=== PATIENT | female | born 1980 | race Caucasian/White ===

== ENCOUNTER → 2016-11-16 | Outpatient (CLI) | payer OTHER ==
[~2016-11-16] MED LIST: ANT25 PO; CHLO25CA10 PO; ONDA4TAB10 SL; OXYC5TAB PO; TRAZ50TA35 PO; ZLF50 PO
== END | disposition home or self-care (01) ==
LOC: C.LAB 16:20
DX: Z02.83 Encounter for blood-alcohol and blood-drug test (principal)

== ENCOUNTER 2017-03-20 22:10 | Emergency (ER) | payer OTHER ==
[~2017-03-20] VITALS: Ht 162.6 cm; Wt 55.9 kg
[~2017-03-20 22:10] MED LIST changes: -ANT25 PO; -CHLO25CA10 PO; -ONDA4TAB10 SL; -TRAZ50TA35 PO; -ZLF50 PO
[2017-03-20 22:21] VITALS: TEMP 36.6; O2SAT 97; Ht 162.6 cm; Wt 55.9 kg
[2017-03-20 23:26] LABS: BUN/CREATININE RATIO 6.7 (10-20); CALCIUM 9.7 mg/dl (8.5-10.1); CREATININE 0.51 mg/dl (0.60-1.20); POTASSIUM 3.2 mmol/L (3.5-5.1)
[2017-03-21 04:00] VITALS: BP 117/69; PULSE 116; O2SAT 93
[2017-03-21] MEDS ORDERED: POTASSIUM CHLORIDE 10 MEQ TABCR PO STA (04:03)
--- NOTE | 2017-03-21 04:04 | EMERGENCY ROOM VISIT NOTE ---
History First contact with patient: 22:11 Chief Complaint: ALCOHOL OVERDOSE Stated Complaint: ALCOHOL OVERDOSE Nursing Triage Summary: Brougth in via BLS for apparent alcohol overdose. Patient was brought in from [facility]. EMS states patient was lying on the ground. History of Present Illness The patient is a 36 year old female who presents to the Emergency Room with complaints of alcohol intoxication. Patient was extremely drunk at [facility] and was brought in. Patient is a known alcoholic. Patient is passed out and unable to obtain history. She's been to this ER several times for alcohol intoxication. Review of Systems Unable to obtain secondary to altered mental status from alcohol intoxication Past Medical/Surgical History Medical Problems: (1) Alcohol abuse (2) Anxiety and depression (3) Fatty liver Surgical Problems: (1) History of dental surgery Family History Cancer Diabetes mellitus Lung disease Social History Smoking Status: Current Some Day Smoker Alcohol Use: heavy Marital Status: single Housing Status: lives with family Occupation Status: unemployed Current/Historical Medications Unable to Obtain Active Prescriptions or Reported Meds Allergies Coded Allergies: No Known Allergies (Unverified , 11/14/15) Physical Exam Vital Signs Date Time Temp Pulse Resp B/P (MAP) Pulse Ox O2 Delivery O2 Flow Rate FiO2 03/21/17 04:00 116 18 117/69 93 Room Air 03/21/17 02:07 97 03/21/17 02:00 90 14 92/64 93 Room Air 03/21/17 01:13 80 18 78/51 94 Room Air 03/20/17 23:57 94 18 96/58 96 Room Air 03/20/17 22:25 97 03/20/17 22:21 97 Room Air 03/20/17 22:21 36.6 119 30 112/79 97 Room Air 03/20/17 22:21 97 Room Air Physical Exam PHYSICAL EXAM: VITALS: Vitals are noted on the nurse's note and reviewed by myself. Vital signs stable. GENERAL: White female passed out with EtOH odor, in no acute distress, nondiaphoretic, well-developed well-nourished. The patient is visibly intoxicated. SKIN: The skin was without obvious lacerations, abrasions, or rashes. There is no tenting of the skin. Capillary reflex less than 2 seconds. HEENT: Normocephalic, atraumatic. PERRLA. EOMI. Conjunctiva with mild injection without icterus. Tympanic membranes without erythema or effusion bilaterally no hemotympanum. External auditory canals are clear. Nares patent bilaterally. No epistaxis. Oropharynx without erythema or exudate. Uvula midline. Oral mucosal moist. No lymphadenopathy. Neck is supple without cervical spine tenderness. HEART: Regular rate and rhythm without murmurs gallops or rubs. Peripheral pulses 2+. LUNGS: Clear to auscultation bilaterally without wheezes, rales or rhonchi. ABDOMEN: Positive bowel sounds x 4. Normal tympanic percussion. Soft, nontender, without masses or organomegaly. MUSCULOSKELETAL: Gross motor function of the upper and lower extremities intact. The patient has a staggering gait. NEUROLOGIC: The patient is visibly intoxicated. Gag reflex intact, Once they were more sober they were alert and oriented to person place and time. Medical Decision & Procedures Laboratory Results 03/20/17 22:52 Test 03/20/17 22:52 Anion Gap 12.0 mmol/L (3-11) Est Creatinine Clear Calc Drug Dose 134.3 ml/min Estimated GFR () 145.4 Estimated GFR (Non- 125.5 BUN/Creatinine Ratio 6.7 (10-20) Calcium Level 9.7 mg/dl (8.5-10.1) Ethyl Alcohol mg/dL 452.0 mg/dl (0-3) ED Course Prior records/ancillary studies reviewed. Triage Nursing notes reviewed. Additional history obtained from EMS. The patient's history was concerning for altered mental status and a possible alcohol overdose. Differential diagnosis: Etiologies such as alcohol intoxication, toxicologic, infection, hypoglycemia, electrolyte abnormalities, cardiac sources, intracerebral event, neurologic, as well as others were entertained. Physical examination: As above. The patient is clinically intoxicated. no trauma noted. ER treatment provided: Monitoring Aspiration precautions The patient was frequently reassessed. Diagnostic interpretation by me: Cardiac monitoring did not reveal any evidence of dysrhythmia. The labs revealed hypokalemia. The patient's blood alcohol level was 452 mg/dL. This appears to be consistent with an isolated overdose of alcohol. Patient is a known alcoholic. She does not want detox. She is discharged home with her family. By the evaluation outlined above emergent etiologies such as trauma, infection, hypoglycemia, electrolyte abnormalities, cardiac sources, intracerebral event, neurologic,as well as others were deemed relatively unlikely. The patient was informed about the findings as listed above. The patient was counseled on the dangers of excessive alcohol use. I gave my usual and customary discussion regarding this issue. All questions were answered and the patient was pleased with the treatment. Return instructions were outlined and the patient was discharged in stable condition once their mental status improved and a safe destination was confirmed. Outpatient prescription management: None Referral: The patient was referred back to their primary care physician for follow-up in 2 to 3 days for a recheck of their current condition. Medical Decision As above Impression Primary Impression: Alcohol abuse Additional Impression: Hypokalemia Departure Information Dispostion Home / Self-Care Condition GOOD Prescriptions Unable to Obtain Active Prescriptions or Reported Meds Referrals No Doctor, Assigned (PCP) Forms HOME CARE DOCUMENTATION FORM, IMPORTANT VISIT INFORMATION Patient Instructions My [facility] Additional Instructions Keep well-hydrated. Tylenol every 6 hours as needed for pain (Maximum 3000 mg Tylenol in 24 hr period). Follow up with family doctor and/or health services as needed. No driving for the next 24 hours. Recommend no alcohol for the next 48 hours and avoid binge drinking in the future. Return to ER sooner for chest pain, abdominal pain, worsening signs or symptoms or as needed. Problem Qualifiers
[2017-04-01] MEDS ORDERED: ZLF50 PO (16:59)
[2017-04-01] MEDS ORDERED: ONDA4TAB10 SL (16:59)
[2017-04-01] MEDS ORDERED: ANT25 PO (16:59)
== END 2017-03-21 04:15 | disposition home or self-care (01) ==
LOC: EDBD 22:10 → C.EDB 22:11
DX: F10.129 Alcohol abuse with intoxication, unspecified (principal); Y90.8 Blood alcohol level of 240 mg/100 ml or more; E87.6 Hypokalemia; F41.8 Other specified anxiety disorders; K76.0 Fatty (change of) liver, not elsewhere classified; F17.200 Nicotine dependence, unspecified, uncomplicated; Z80.9 Family history of malignant neoplasm, unspecified; Z83.3 Family history of diabetes mellitus

== ENCOUNTER 2017-03-30 08:16 | Inpatient (IN) | payer OTHER ==
[~2017-03-30] VITALS: Ht 162.6 cm; Wt 56.0 kg
[2017-03-30] MEDS ORDERED: LORAZEPAM 2 MG/ML 1 ML VIAL IV STA (09:00)
[2017-03-30] MEDS ORDERED: MULTI-VITAMIN INFUSION INJ 10 ML, THIAMINE HCL INJ 100 MG, FoLIC ACID INJ 1 MG in SODIU... IV ONE (09:00)
[2017-03-30] MEDS ORDERED: ONDANSETRON INJ 2 MG/ML 2 ML VIAL IV STA (09:00)
[2017-03-30] MEDS ORDERED: SODIUM CHLORIDE 0.9% 1000ML 1,000 ML IV STA ×2 (09:00)
[2017-03-30 09:19] LABS: BASO % 0.1 %; BASO ABS # 0.01 K/uL (0-0.2); COMPLETE YES; HEMATOCRIT 46.5 % (37-47); IG% 0.4 %; LYMPH % 6.2 %; LYMPH ABS # 0.83 K/uL (1.2-3.4); MEAN CELL VOLUME 106.4 fL (80-100); MEAN CORPUSCULAR HEMOGLOBIN 35.2 pg (25-34); MEAN CORPUSCULAR HGB CONC 33.1 g/dl (32-36); MEAN PLATELET VOLUME 10.6 fL (7.4-10.4); MONO % 6.2 %; NEUT % 87.1 %; PLATELET COUNT 115 K/uL (130-400); RED BLOOD COUNT 4.37 M/uL (4.2-5.4); WHITE BLOOD COUNT 13.29 K/uL (4.8-10.8)
[2017-03-30 09:27] LABS: INR 1.1 (0.9-1.1); PROTHROMBIN TIME (PATIENT) 11.3 SECONDS (9.0-12.0)
[2017-03-30 09:36] LABS: BUN/CREATININE RATIO 8.2 (10-20); CALCIUM 9.4 mg/dl (8.5-10.1); CREATININE 1.8 mg/dl (0.60-1.20); MAGNESIUM 1.7 mg/dl (1.8-2.4); POTASSIUM 3.9 mmol/L (3.5-5.1)
[2017-03-30] MEDS ORDERED: MAGNESIUM SULFATE 1GM / D5W 1 GM BAG IV STA (09:48)
[2017-03-30 09:50] LABS: PREG INTERNAL NEGATIVE QC NEG CLEAR BACKGROUND; PREG INTERNAL POSITIVE QC POS CONTROL LINE
--- NOTE | 2017-03-30 10:05 | EMERGENCY ROOM VISIT NOTE ---
ED Visit Note First contact with patient: 08:34 36-year-old female alcoholic with multiple complaints including nausea, jitteriness, carpopedal spasm, insomnia and abdominal pain was fully evaluated by Carin Sarah PA-C. Please see her note. Patient's symptoms seem to be most related to alcohol withdrawal. The patient has not had a seizure.
[2017-03-30] MEDS ORDERED: DiphenhydrAMINE HCL 50 MG/ML VIAL IV STA (10:28)
[2017-03-30 11:11] VITALS: O2SAT 98; Ht 162.6 cm; Wt 56.0 kg
[2017-03-30] MEDS ORDERED: GABAPENTIN 800 MG TAB PO SCH (12:00)
[2017-03-30] MEDS ORDERED: ACETAMINOPHEN 325 MG TAB PO PRN (12:00)
--- NOTE | 2017-03-30 12:36 | History and Physical ---
History & Physical Date & Time of Service: Mar 30, 2017 at 12:11 Chief Complaint: Nausea, Vomiting, No Appetite, Cramping, Tachy Primary Care Physician: No Doctor, Assigned History of Present Illness Source: patient, family Patient is a 36 Yr female with PMH of Alcohol and Tobacco use disorder, anxiety and depression who is currently not on any medications presents with nausea, vomiting, decreased appetite since 2-3 days duration. Patient is currently very drowsy and her mother at bedside are very poor historians. Family reports that she has been in and out of alcohol rehab facilities multiple times and is a very heavy drinker. Her last alcohol drink was 5 days ago. She reports multiple episodes of nausea, vomiting since last 3 days. Also reports very poor appetite and has not slept since last 2 days. Reports jitteriness, RUQ abdominal pain, generalized weakness, dry intermittent cough. Family reports she has a court hearing on April 22 and has been very anxious as a result lately. Denies any history of fever, diarrhea, urinary symptoms. Denies any history of seizures. History not very reliable as patient is drowsy and received Ativan while in ED. Past Medical/Surgical History Medical Problems: (1) Alcohol abuse Status: Chronic (2) Anxiety and depression Status: Chronic (3) Fatty liver Status: Chronic Surgical Problems: (1) History of dental surgery Status: Chronic Family History Cancer Diabetes mellitus Lung disease Maternal Grandfather: Lymphoma Maternal Uncle:Lymphoma Social History Smoking Status: Current Every Day Smoker Alcohol Use: heavy Drug Use: none Marital Status: single Occupational Status: unemployed Immunizations History of Tetanus Vaccine?: Yes Tetanus Immunization Date: Apr 22, 2009 Multi-Drug Resistant Organisms History of MDRO: No Allergies Coded Allergies: No Known Allergies (Unverified , 03/30/17) Home Medications Unable to Obtain Active Prescriptions or Reported Meds Review of Systems Could not obtain complete review of systems as patient a very drowsy Physical Exam Vital Signs Date Time Temp Pulse Resp B/P (MAP) Pulse Ox O2 Delivery O2 Flow Rate FiO2 03/30/17 11:50 88 18 104/81 96 Room Air 03/30/17 11:11 98 Room Air 03/30/17 10:40 89 03/30/17 10:00 90 20 107/76 98 03/30/17 09:33 92 20 115/67 100 03/30/17 08:18 36.8 137 17 111/79 99 Room Air General Appearance: WD/WN, no apparent distress, + pertinent finding (Drowsy) Head: normocephalic, atraumatic Eyes: normal inspection, PERRL ENT: normal ENT inspection, hearing grossly normal Neck: supple, trachea midline Respiratory/Chest: chest non-tender, normal breath sounds, no accessory muscle use, + pertinent finding (Creps at bases) Cardiovascular: regular rate, rhythm, no edema, no murmur Abdomen/GI: normal bowel sounds, soft, + tenderness (RUQ) Back: normal inspection Extremities/Musculoskelatal: normal inspection, no pedal edema 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, no motor/sensory deficits, normal mood/affect, oriented x 3, + pertinent finding (Drowsy) Skin: normal color, warm/dry Diagnostics Laboratory Results Results Past 24 Hours Test 03/30/17 09:02 Range/Units White Blood Count 13.29 4.8-10.8 K/uL Red Blood Count 4.37 4.2-5.4 M/uL Hemoglobin 15.4 12.0-16.0 g/dL Hematocrit 46.5 37-47 % Mean Corpuscular Volume 106.4 80-100 fL Mean Corpuscular Hemoglobin 35.2 25-34 pg Mean Corpuscular Hemoglobin Concent 33.1 32-36 g/dl Platelet Count 115 130-400 K/uL Mean Platelet Volume 10.6 7.4-10.4 fL Neutrophils (%) (Auto) 87.1 % Lymphocytes (%) (Auto) 6.2 % Monocytes (%) (Auto) 6.2 % Eosinophils (%) (Auto) 0.0 % Basophils (%) (Auto) 0.1 % Neutrophils # (Auto) 11.57 1.4-6.5 K/uL Lymphocytes # (Auto) 0.83 1.2-3.4 K/uL Monocytes # (Auto) 0.83 0.11-0.59 K/uL Eosinophils # (Auto) 0.00 0-0.5 K/uL Basophils # (Auto) 0.01 0-0.2 K/uL RDW Standard Deviation 53.5 36.4-46.3 fL RDW Coefficient of Variation 13.8 11.5-14.5 % Immature Granulocyte % (Auto) 0.4 % Immature Granulocyte # (Auto) 0.05 0.00-0.02 K/uL Prothrombin Time 11.3 9.0-12.0 SECONDS Prothromb Time International Ratio 1.1 0.9-1.1 Activated Partial Thromboplast Time 26.9 21.0-31.0 SECONDS Partial Thromboplastin Ratio 1.0 Sodium Level 128 136-145 mmol/L Potassium Level 3.9 3.5-5.1 mmol/L Chloride Level 83 98-107 mmol/L Carbon Dioxide Level 21 21-32 mmol/L Anion Gap 24.0 3-11 mmol/L Blood Urea Nitrogen 15 7-18 mg/dl Creatinine 1.80 0.60-1.20 mg/dl Est Creatinine Clear Calc Drug Dose 35.4 ml/min Estimated GFR () 41.8 Estimated GFR (Non- 36.1 BUN/Creatinine Ratio 8.2 10-20 Random Glucose 106 70-99 mg/dl Calcium Level 9.4 8.5-10.1 mg/dl Magnesium Level 1.7 1.8-2.4 mg/dl Total Bilirubin 2.2 0.2-1 mg/dl Direct Bilirubin 0.6 0-0.2 mg/dl Aspartate Amino Transf (AST/SGOT) 169 15-37 U/L Alanine Aminotransferase (ALT/SGPT) 62 12-78 U/L Alkaline Phosphatase 140 45-117 U/L Total Protein 9.5 6.4-8.2 gm/dl Albumin 4.9 3.4-5.0 gm/dl Amylase Level 124 25-115 U/L Lipase 231 73-393 U/L Human Chorionic Gonadotropin, Qual NEG NEG Ethyl Alcohol mg/dL < 3.0 0-3 mg/dl EKG EKG: NSR Impression Assessment and Plan SIRS Alcohol Withdrawal Presented with Leukocytosis, Tachycardia, Nausea, vomiting, RUQ abdominal pain Admit in Telemetry Start on alcohol withdrawal protocol (Gabapentin, Ativan PRN) IV Fluids, Banana bag Aspiration/Fall/Seizure precautions Check UA, CXR, Abdominal USD Will hold off on starting any antibiotics for now Zofran PRN Helper Maintenance Cleaning to quit drinking ZUHAIR: Likely secondary to dehydration from nausea, vomiting IV Fluids, monitor renal function Avoid nephrotoxic agents Hypomagnesemia/Hyponatremia/Hypochloremia Magnesium replaced Continue IVF Monitor electrolytes Anxiety/Depression: In setting of alcohol abuse Will consult mental health Tobacco use disorder: Nicotine patch 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 Y/N: Yes Risk Level: Low
[2017-03-30] MEDS: ONDANSETRON INJ 2 MG/ML 2 ML VIAL IV PRN ×2 (12:59→20:05)
[2017-03-30 13:15] VITALS: BP 103/73; PULSE 91; TEMP 37.2; O2SAT 98
--- NOTE | 2017-03-30 13:19 | DIAGNOSTIC IMAGING REPORT ---
TWO VIEW CHEST CLINICAL HISTORY: Cough. Nausea and cramping. FINDINGS: PA and lateral chest radiographs are compared to study dated 11/14/2015. The cardiomediastinal silhouette is unremarkable. There is mild nonspecific interstitial thickening. A nipple shadow projects over the right lower lung. No lobar consolidation, pleural effusion, or pneumothorax is seen. Chronic appearing deformity is seen at the right acromioclavicular joint. There is mild S-shaped thoracolumbar scoliosis. IMPRESSION: 1. There is no lobar consolidation or pleural effusion. 2. Mild nonspecific interstitial thickening is identified and may represent a mild infectious/inflammatory pneumonitis. Clinical correlation will be required. 3. Chronic appearing deformity/separation is identified at the right acromioclavicular joint Electronically signed by: Konrad Acosta M.D. 03/30/2017 1:18 PM Dictated Date/Time: 03/30/2017 1:15 PM
[2017-03-30] MEDS: SODIUM CHLORIDE 0.9% 1000ML 1,000 ML IV SCH ×2 (13:28→23:58)
[2017-03-30] MEDS: HEPARIN SOD 5000 UNIT/0.5 ML CARP SQ SCH ×2 (14:00→21:01)
[2017-03-30] MEDS ORDERED: GABAPENTIN 800MG LOADING DOSE PO SCH (14:00)
[2017-03-30] MEDS: MULTI-VITAMIN INFUSION INJ 10 ML, THIAMINE HCL INJ 100 MG, FoLIC ACID INJ 1 MG in SODIU... IV SCH (14:14)
[2017-03-30] MEDS: NICOTINE 21 MG/24 HR TDSY TD SCH (14:15)
[2017-03-30] MEDS ORDERED: COUGH DROP (SUGAR FREE) LOZ 24 LOZ/1 BOX PO PRN (14:30)
[2017-03-30] MEDS ORDERED: NURSING VERBAL MED ORDER ONE (14:30)
[2017-03-30] MEDS ORDERED: FAMOTIDINE IV INJ 20 MG in DEXTROSE 5% 100ML 100 ML IV PRN (14:45)
[2017-03-30 15:20] VITALS: O2SAT 98
[2017-03-30 17:15] LABS: URINE APPEARANCE CLOUDY (CLEAR); URINE COLOR DK YELLOW; URINE EPITHELIAL CELL AUTO >30 /lpf (0-5); URINE NITRITE NEG (NEG); URINE PH 5.5 (4.5-7.5); URINE SPECIFIC GRAVITY 1.024 (1.000-1.030); UROBILINOGEN NEG (NEG)
[2017-03-30 17:30] LABS: MANUAL MICROSCOPIC REQUIRED? NO; REVIEW REQ? YES; URINE BILIRUBIN NEG (NEG)
--- NOTE | 2017-03-30 17:37 | EMERGENCY ROOM VISIT NOTE ---
History First contact with patient: 08:34 Chief Complaint: DEHYDRATION Stated Complaint: NAUSEA & VOMITING Nursing Triage Summary: Vomiting, poor appetite. History of Present Illness Patient is a 36-year-old white female with past medical history significant for alcohol abuse who presents to the emergency department accompanied by her mother and stepfather for evaluation of nausea, vomiting, anorexia and abdominal pain over the last week. Patient was seen here in the emergency department 8 days ago for an acute alcohol overdose. She reports that this was the last time that she consumed any alcohol. Her blood alcohol level was over 450 at that time. She was observed in the emergency Department until clinically sober, then discharged. The patient reports that she noted a poor appetite all week, but does note that this is close to her baseline. Her symptoms became more pronounced about 4 days ago, on Wednesday, when she woke up and felt acutely nauseous, and then had multiple episodes of vomiting. She stated that her abdomen was queasy, and upset, but not significantly painful per se. She did not have any diarrhea. She noted decreased urinary output, and dark urine, but denied any dysuria. She did not have any fevers. She states her symptoms continued through last evening, at which point she did develop some upper abdominal discomfort, and pain across her back along her bra line. She notes a sore throat from all of the vomiting. She also last night began to experience some "tremors" , and cramping in her hands and her feet. She was concerned that she was going to have a seizure, but there was never any overt seizure activity. She has tried sipping on water, but vomits everything up. She denies any hematemesis. She does report contact with a sick ex- boyfriend but this was over a week ago. She denies any recent antibiotics or foreign travel. She does have a history of fatty liver disease and has had elevated LFTs in the past. Her family is concerned that she is suffering from alcohol withdrawal. Review of Systems Review of systems as per HPI. All other systems reviewed were negative. 10 systems reviewed. Past Medical/Surgical History Medical Problems: (1) Alcohol abuse (2) Anxiety and depression (3) Fatty liver (4) Nausea & vomiting Surgical Problems: (1) History of dental surgery Electronic medical records are reviewed and summarized as above/below. See Problem List. Family History Cancer Diabetes mellitus Lung disease Social History Smoking Status: Current Every Day Smoker Alcohol Use: heavy Drug Use: none Marital Status: single Housing Status: lives with family Occupation Status: unemployed Current/Historical Medications Unable to Obtain Active Prescriptions or Reported Meds Allergies Coded Allergies: No Known Allergies (Unverified , 03/30/17) Physical Exam Vital Signs Date Time Temp Pulse Resp B/P (MAP) Pulse Ox O2 Delivery O2 Flow Rate FiO2 03/30/17 11:50 88 18 104/81 96 Room Air 03/30/17 11:11 98 Room Air 03/30/17 10:40 89 03/30/17 10:00 90 20 107/76 98 03/30/17 09:33 92 20 115/67 100 03/30/17 08:18 36.8 137 17 111/79 99 Room Air Pain Rating (0-10): 0 Physical Exam CONSTITUTIONAL: Patient is a thin, ill although nontoxic appearing 36-year-old white female who is awake and alert and in no acute distress. She is noted be tachycardic in triage with a heart rate of 137. Otherwise vital signs are stable. EYES: Pupils equal, round, reactive to light and accommodation. EOMs intact without nystagmus. Sclera are anicteric. ENT: Tympanic membranes intact, with normal landmarks. External canals are clear. Oral and nasopharynx are clear. Mucous membranes are dry, no lesions, tongue and gums appear normal. NECK: Supple without lymphadenopathy. No thyromegaly. No meningeal signs. Full active range of motion without discomfort. CARDIOVASCULAR: Tachycardic rate and rhythm, with normal S1 and S2, no murmur or gallop or rub is heard. No carotid bruits auscultated. No JVD. Peripheral pulses easy to palpable. RESPIRATORY: Breath sounds equal and clear to auscultation without wheezes, rales, or rhonchi heard. Full and equal chest expansion without accessory muscle use or retractions. GI: Bowel sounds are present. Abdomen is soft nondistended, tender to palpation in the epigastric and right upper and right mid abdomen. No organomegaly. No pulsatile masses. No guarding or rebound. MUSCULOSKELETAL: Full range of motion of extremities x 4 with good strength. No cyanosis, edema, joint tenderness or swelling. No deformity. INTEGUMENTARY: No lesions or rash, normal skin turgor. NEUROLOGICAL: Alert, oriented, and cooperative. Cranial nerves, sensation and strength grossly intact. Pupils round, equal, and react to light, EOMs are full. LYMPH: No lymphadenopathy. Medical Decision & Procedures Laboratory Results 03/30/17 09:02 Red Blood Count 4.37, Mean Corpuscular Volume 106.4, Mean Corpuscular Hemoglobin 35.2, Mean Corpuscular Hemoglobin Concent 33.1, Mean Platelet Volume 10.6, Neutrophils (%) (Auto) 87.1, Lymphocytes (%) (Auto) 6.2, Monocytes (%) ( Auto) 6.2, Eosinophils (%) (Auto) 0.0, Basophils (%) (Auto) 0.1, Neutrophils # ( Auto) 11.57, Lymphocytes # (Auto) 0.83, Monocytes # (Auto) 0.83, Eosinophils # ( Auto) 0.00, Basophils # (Auto) 0.01 03/30/17 09:02 Test 03/30/17 04:30 03/30/17 09:02 White Blood Count 13.29 K/uL (4.8-10.8) Red Blood Count 4.37 M/uL (4.2-5.4) Hemoglobin 15.4 g/dL (12.0-16.0) Hematocrit 46.5 % (37-47) Mean Corpuscular Volume 106.4 fL (80-100) Mean Corpuscular Hemoglobin 35.2 pg (25-34) Mean Corpuscular Hemoglobin Concent 33.1 g/dl (32-36) Platelet Count 115 K/uL (130-400) Mean Platelet Volume 10.6 fL (7.4-10.4) Neutrophils (%) (Auto) 87.1 % Lymphocytes (%) (Auto) 6.2 % Monocytes (%) (Auto) 6.2 % Eosinophils (%) (Auto) 0.0 % Basophils (%) (Auto) 0.1 % Neutrophils # (Auto) 11.57 K/uL (1.4-6.5) Lymphocytes # (Auto) 0.83 K/uL (1.2-3.4) Monocytes # (Auto) 0.83 K/uL (0.11-0.59) Eosinophils # (Auto) 0.00 K/uL (0-0.5) Basophils # (Auto) 0.01 K/uL (0-0.2) RDW Standard Deviation 53.5 fL (36.4-46.3) RDW Coefficient of Variation 13.8 % (11.5-14.5) Immature Granulocyte % (Auto) 0.4 % Immature Granulocyte # (Auto) 0.05 K/uL (0.00-0.02) Prothrombin Time 11.3 SECONDS (9.0-12.0) Prothromb Time International Ratio 1.1 (0.9-1.1) Activated Partial Thromboplast Time 26.9 SECONDS (21.0-31.0) Partial Thromboplastin Ratio 1.0 Anion Gap 24.0 mmol/L (3-11) Est Creatinine Clear Calc Drug Dose 35.4 ml/min Estimated GFR () 41.8 Estimated GFR (Non- 36.1 BUN/Creatinine Ratio 8.2 (10-20) Calcium Level 9.4 mg/dl (8.5-10.1) Magnesium Level 1.7 mg/dl (1.8-2.4) Total Bilirubin 2.2 mg/dl (0.2-1) Direct Bilirubin 0.6 mg/dl (0-0.2) Aspartate Amino Transf (AST/SGOT) 169 U/L (15-37) Alanine Aminotransferase (ALT/SGPT) 62 U/L (12-78) Alkaline Phosphatase 140 U/L (45-117) Total Protein 9.5 gm/dl (6.4-8.2) Albumin 4.9 gm/dl (3.4-5.0) Amylase Level 124 U/L (25-115) Lipase 231 U/L (73-393) Human Chorionic Gonadotropin, Qual NEG (NEG) Ethyl Alcohol mg/dL < 3.0 mg/dl (0-3) Medications Administered Medications (Trade) Dose Ordered Sig/Darrin Route Start Time Stop Time Status Last Admin Dose Admin Sodium Chloride 1,000 ml @ 999 mls/hr Q1H1M STAT IV 03/30/17 09:00 03/30/17 10:00 DC 03/30/17 09:11 999 MLS/HR Sodium Chloride 1,000 ml @ 250 mls/hr Q4H STAT IV 03/30/17 09:00 03/30/17 12:59 DC 03/30/17 09:59 250 MLS/HR Multivitamins 10 ml/Thiamine HCl 100 mg/Folic Acid 1 mg/Sodium Chloride 1,011.2 ml @ 1,000 mls/ hr Q1H1M ONCE IV 03/30/17 09:00 03/30/17 10:00 DC 03/30/17 09:59 1,000 MLS/HR Ondansetron HCl (Zofran Inj) 4 mg NOW STAT IV 03/30/17 09:00 03/30/17 09:02 DC 03/30/17 09:11 4 MG Lorazepam (Ativan Inj) 1 mg NOW STAT IV 03/30/17 09:00 03/30/17 09:02 DC 03/30/17 09:12 1 MG Magnesium Sulfate (Magnesium Sulfate) 2 gm NOW STAT IV 03/30/17 09:48 03/30/17 09:49 DC 03/30/17 10:36 2 GM Sodium Chloride 1,000 ml @ 125 mls/hr Q8H IV 03/30/17 11:49 04/29/17 11:48 03/30/17 13:28 125 MLS/HR ECG Indication: tachycardia, toxicologic Rate (beats per minute): 89 Rhythm: normal sinus Findings: no acute ischemic change, prolonged QT (QT/QTC 396/481) Change: Prolonged QT now present. Noted that the patient received IV Zofran 20 minutes prior to EKG being performed. No prior prolonged QT documented. ED Course The patient was seen and evaluated as above. Her old records were reviewed. IV lock was initiated. The patient was hydrated with a liter bolus of normal saline solution, then 250 mL per hour. She was also given a banana bag over 1 hour. She was given Zofran 4 mg IV and Ativan 1 mg IV for complaints of nausea and anxiety/tremulousness and due to concern for alcohol withdrawal. She is placed on a awake overnight monitor and EKG was performed and was as noted above. CBC with differential, coags, BMP, magnesium, LFTs, amylase, lipase, medical alcohol , serum hCG and urine dip were performed. The patient was reassessed frequently. She was initially noted to be tachycardic, however this improved with the IV hydration and medications. Laboratory studies demonstrated a leukocytosis of 13,200, with left shift and bandemia. H&H is normal. Slight thrombocytopenia with a platelet count of 115, 000, coags are otherwise normal. Electrolytes noted a hyponatremia with sodium 128, potassium normal at 3.9, chloride low at 83, carbon dioxide 21, BUN 15 and creatinine elevated at 1.8, consistent with acute kidney injury, likely related to the dehydration. Magnesium also noted to be slightly low at 1.7, which was repleted with 2 g IV. She has slight, stable elevation of her total and direct bilirubin and AST and alkaline phosphatase. ALT is normal today. Amylase slightly elevated, lipase is normal and symptoms are not felt to be indicative of acute pancreatitis. Serum hCG was negative. Alcohol level was undetectable. Urine dip noted a large amount of ketones, trace blood, negative nitrates and wbc's, was not felt to be indicative of infectious process. All laboratory and diagnostic imaging studies were reviewed with attending physician, who also independently evaluated the patient. Testing was also reviewed with the patient and her mother at length. She presents the emergency department with symptoms consistent with alcohol withdrawal, her last alcohol consumption was 8 days ago. She presents with a leukocytosis, tachycardia, nausea, vomiting and abdominal discomfort. Laboratory studies demonstrate hypomagnesemia, hyponatremia, and acute kidney injury. She was hydrated aggressively with IV fluids and a banana bag, magnesium was replaced. Patient was reviewed with the emergency department machine adjuster leader case trim, and given her symptoms and presentation, it it was felt that she would benefit from further care and management in the hospital. This was reviewed with the patient and her mother and she is in agreement. Patient was reviewed with the [facility]ist service for further care and management. Please refer to their history, physical exam and orders for further information. Differential diagnoses entertained include alcohol draw, alcohol intoxication, Caren enteritis, infectious versus inflammatory colitis, food borne illness, SIRS, sepsis, dehydration, electrolyte or metabolic abnormality, acute cholecystitis, common cholelithiasis, alcoholic hepatitis, liver failure, acute pancreatitis, among others. Medical Decision See emergency Department course. Impression Primary Impression: Nausea & vomiting Additional Impressions: Hyponatremia Hypomagnesemia Acute kidney injury Departure Information Dispostion Admitted as an inpatient Condition GOOD Prescriptions Unable to Obtain Active Prescriptions or Reported Meds Referrals No Doctor, Assigned (PCP) Forms WORK / SCHOOL INSTRUCTIONS, HOME CARE DOCUMENTATION FORM, IMPORTANT VISIT INFORMATION Patient Instructions [facility] Problem Qualifiers Primary Impression: Nausea & vomiting Vomiting type: unspecified Vomiting Intractability: non-intractable Qualified Codes: R11.2 - Nausea with vomiting, unspecified
--- NOTE | 2017-03-30 18:00 | DIAGNOSTIC IMAGING REPORT ---
ULTRASOUND ABDOMEN COMPLETE CLINICAL HISTORY: Generalized abdominal pain. Vomiting. Nausea. Loss of appetite. COMPARISON STUDY: No priors. TECHNIQUE: Real-time, grayscale, and color flow sonography of the abdomen was performed. Images are reviewed in the transverse and longitudinal planes. FINDINGS: Liver: The liver is normal in size and pituitary ages increased echotexture suggesting mild steatosis. There is no intrahepatic biliary ductal dilatation. The main portal vein is patent. Gallbladder: The gallbladder is normal in appearance. No gallstones are identified. There is no gallbladder wall thickening or pericholecystic fluid. A sonographic Lofton's sign is reportedly absent. The common bile duct measures up to 0.3 cm in diameter. Pancreas: Visualized portions of the pancreatic head and body are normal in appearance. The splenic vein is patent. Spleen: The spleen is normal in size and echotexture, measuring 10.5 cm in length. Kidneys: The kidneys are normal in size and echotexture. There is no hydronephrosis. The right kidney measures 10.7 cm in length and the left kidney measures 9.4 cm in length. No shadowing calculi are identified. Abdominal vasculature: Visualized portions of the abdominal aorta and IVC are normal as imaged. Ascites: None. IMPRESSION: 1. No acute sonographic abnormality is identified. 2. Findings suggest mild hepatic steatosis. Electronically signed by: Konrad Acosta M.D. 03/30/2017 5:58 PM Dictated Date/Time: 03/30/2017 5:56 PM
[2017-03-30 19:00] VITALS: BP 106/73; PULSE 81; TEMP 37; O2SAT 96
[2017-03-30 20:00] VITALS: O2SAT 96
[2017-03-30] MEDS: GABAPENTIN 400MG Q6H DOSE PO SCH (20:02)
[2017-03-30] MEDS: LORAZEPAM 1 MG TAB PO PRN (21:09)
[2017-03-30 23:46] VITALS: BP 102/70; PULSE 79; TEMP 37.3; O2SAT 98
[2017-03-30] MEDS: hydrOXYzine HCL 25 MG TAB PO PRN (23:57)
[2017-03-31] VITALS (8 sets, daily range): BP systolic 95–123; BP diastolic 61–86; PULSE 62–93; TEMP 36.7–37.4; O2SAT 97–99
[2017-03-31] MEDS: GABAPENTIN 400MG Q6H DOSE PO SCH (01:59)
[2017-03-31] MEDS: SODIUM CHLORIDE 0.9% 1000ML 1,000 ML IV SCH ×3 (04:25→21:47)
[2017-03-31] MEDS: ONDANSETRON INJ 2 MG/ML 2 ML VIAL IV PRN ×2 (06:00→15:31)
[2017-03-31] MEDS: HEPARIN SOD 5000 UNIT/0.5 ML CARP SQ SCH ×3 (06:01→21:50)
[2017-03-31 07:17] LABS: BUN/CREATININE RATIO 9.6 (10-20); CALCIUM 7.2 mg/dl (8.5-10.1); CREATININE 1.3 mg/dl (0.60-1.20); POTASSIUM 3.9 mmol/L (3.5-5.1)
[2017-03-31 07:20] LABS: HEMATOCRIT 35.9 % (37-47); MEAN CELL VOLUME 106.5 fL (80-100); MEAN CORPUSCULAR HEMOGLOBIN 35.6 pg (25-34); MEAN CORPUSCULAR HGB CONC 33.4 g/dl (32-36); MEAN PLATELET VOLUME 10.8 fL (7.4-10.4); PLATELET COUNT 56 K/uL (130-400); RED BLOOD COUNT 3.37 M/uL (4.2-5.4); WHITE BLOOD COUNT 7.81 K/uL (4.8-10.8)
[2017-03-31 07:21] LABS: BASO % 0.1 %; BASO ABS # 0.01 K/uL (0-0.2); COMPLETE YES; EOS % 0.6 %; IG% 0.3 %; LYMPH % 13.2 %; LYMPH ABS # 1.03 K/uL (1.2-3.4); MONO % 4.2 %; NEUT % 81.6 %; PLT ESTIMATE DECREASED
[2017-03-31] MEDS: NICOTINE 21 MG/24 HR TDSY TD SCH (07:33)
[2017-03-31] MEDS: LORAZEPAM 1 MG TAB PO PRN ×3 (07:35→14:22)
[2017-03-31] MEDS ORDERED: NURSING VERBAL MED ORDER ONE ×2 (09:00→15:30)
[2017-03-31] MEDS ORDERED: LIDOCAINE HCL 2% VISC SOLN 20 ML UDC MT ONE (09:00)
[2017-03-31] MEDS: MECLIZINE HCL 25 MG TAB PO PRN ×2 (09:25→19:27)
--- NOTE | 2017-03-31 12:19 | Progress Note ---
Medicine Progress Note Date & Time of Visit: Mar 31, 2017 at 11:53. Subjective Pt was seen and examined Sitting in bed with no distress ready to eat her lunch Pt said that she did not sleep well last night She said that she has not had any episode of vomiting since yesterday Pt said that she feels better today she said that her tremor improved significantly Pt said that she is under a lot of stress denies any hallucination and suicidal thought she still feels dizzy Denies any chest pain, palpitation, fever and sob Objective Last 8 Hrs Date Time Temp Pulse Resp B/P (MAP) Pulse Ox O2 Delivery O2 Flow Rate FiO2 03/31/17 08:17 37.1 72 20 104/69 (81) 99 Room Air 03/31/17 08:06 Room Air 03/31/17 04:00 97 Room Air Physical Exam: General- No acute distress Head- atraumatic Eyes- PERRL, EOMI ENT- oropharynx clear Neck- supple, no JVD Lungs- clear to auscultation Heart- regular rhythm; no murmur Abdomen- normal bowel sounds, soft Extremities- no pretibial edema, no calf tenderness Neuro- alert, oriented x 3; PERRL, EOMI; no facial palsy; no dysarthria; motor 5 /5 bilaterally Skin- warm & dry Laboratory Results: Last 24 Hours Test 03/31/17 05:10 White Blood Count 7.81 K/uL Red Blood Count 3.37 M/uL Hemoglobin 12.0 g/dL Hematocrit 35.9 % Mean Corpuscular Volume 106.5 fL Mean Corpuscular Hemoglobin 35.6 pg Mean Corpuscular Hemoglobin Concent 33.4 g/dl Platelet Count 56 K/uL Mean Platelet Volume 10.8 fL Neutrophils (%) (Auto) 81.6 % Lymphocytes (%) (Auto) 13.2 % Monocytes (%) (Auto) 4.2 % Eosinophils (%) (Auto) 0.6 % Basophils (%) (Auto) 0.1 % Neutrophils # (Auto) 6.37 K/uL Lymphocytes # (Auto) 1.03 K/uL Monocytes # (Auto) 0.33 K/uL Eosinophils # (Auto) 0.05 K/uL Basophils # (Auto) 0.01 K/uL RDW Standard Deviation 53.0 fL RDW Coefficient of Variation 13.7 % Immature Granulocyte % (Auto) 0.3 % Immature Granulocyte # (Auto) 0.02 K/uL Platelet Estimate DECREASED Sodium Level 138 mmol/L Potassium Level 3.9 mmol/L Chloride Level 103 mmol/L Carbon Dioxide Level 25 mmol/L Anion Gap 10.0 mmol/L Blood Urea Nitrogen 13 mg/dl Creatinine 1.30 mg/dl Est Creatinine Clear Calc Drug Dose 52.6 ml/min Estimated GFR () 62.0 Estimated GFR (Non- 53.5 BUN/Creatinine Ratio 9.6 Random Glucose 97 mg/dl Calcium Level 7.2 mg/dl Magnesium Level 2.0 mg/dl Total Bilirubin 1.2 mg/dl Direct Bilirubin 0.5 mg/dl Aspartate Amino Transf (AST/SGOT) 96 U/L Alanine Aminotransferase (ALT/SGPT) 37 U/L Alkaline Phosphatase 89 U/L Total Protein 5.8 gm/dl Albumin 3.0 gm/dl Assessment & Plan Alcohol Withdrawal Presented with Leukocytosis, Tachycardia, Nausea, vomiting, RUQ abdominal pain Continue alcohol withdrawal protocol (Gabapentin, Ativan PRN) Continue IV Fluids, Banana bag Continue monitor for signs of DT Will need help with alcohol rehab Nausea/Vomiting Possible secondary to alcohol withdrawal Continue zofran prn Abd U/S showed no acute sonographic abnormality. 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 DVT Px: Heparin SQ Code Status: Full Code Disposition: Discharge once medically stable member services representative consulted for possible rehab placement Consultants: Psych Current Inpatient Medications: Current Inpatient Medications Medications (Trade) Dose Ordered Sig/Darrin Route Start Time Stop Time Status Last Admin Dose Admin Heparin Sodium (Porcine) (Heparin Sq 5000 Unit/0.5ml) 5,000 unit Q8 SQ 03/30/17 14:00 04/29/17 13:59 03/31/17 06:01 5,000 UNIT Sodium Chloride 1,000 ml @ 125 mls/hr Q8H IV 03/30/17 11:49 04/29/17 11:48 03/31/17 04:25 125 MLS/HR Acetaminophen (Tylenol Tab) 650 mg Q4H PRN PO 03/30/17 12:00 04/29/17 11:59 03/31/17 07:38 650 MG Ondansetron HCl (Zofran Inj) 4 mg Q6H PRN IV 03/30/17 12:00 04/29/17 11:59 03/31/17 06:00 4 MG Multivitamins 10 ml/Thiamine HCl 100 mg/Folic Acid 1 mg/Sodium Chloride 1,011.2 ml @ 125 mls/ hr DAILY@1400 IV 03/30/17 14:00 04/29/17 13:59 03/30/17 14:14 125 MLS/HR Lorazepam (Ativan Tab) PRN Dosing -Active Protocol UD PRN PO 03/30/17 12:00 04/29/17 11:59 03/31/17 11:32 2 MG Nicotine (Nicoderm Cq 21MG Patch) 1 patch QAM TD 03/30/17 14:00 04/29/17 13:59 03/31/17 07:33 1 PATCH Miscellaneous (Remove Nicoderm Patch) 1 ea HS N/A 03/30/17 21:00 04/29/17 20:59 03/30/17 21:01 1 EA Gabapentin (Neurontin Cap) 400 mg Q8H PO 03/31/17 14:00 04/01/17 06:01 Gabapentin (Neurontin Cap) 400 mg Q12H PO 04/01/17 18:00 04/02/17 06:01 Gabapentin (Neurontin Cap) 400 mg Q24H PO 04/03/17 06:00 04/03/17 06:01 Menthol ([place]) 1 [place] PRN PRN PO 03/30/17 14:30 04/29/17 14:29 Famotidine 20 mg/ Dextrose 102 ml @ 200 mls/hr Q12H PRN IV 03/30/17 14:45 04/29/17 14:44 03/31/17 08:32 200 MLS/HR Hydroxyzine HCl (Vistaril Tab) 50 mg HS PRN PO 03/30/17 20:00 04/29/17 19:59 03/30/17 23:57 50 MG Meclizine HCl (Antivert Tab) 25 mg Q8H PRN PO 03/31/17 09:00 04/30/17 08:59 03/31/17 09:25 25 MG
--- NOTE | 2017-03-31 12:28 | Psychiatric Consultation ---
Consultation Date of Consultation Mar 31, 2017. Identifying Data Emma Nathan is a 36-year-old female who currently lives in [facility]. She is admitted to the hospital with a 3 day course of N/V, abd pain, in the setting of alcohol dependence and withdrawal. We are consulted to evaluate anxiety. Information is gathered from the patient and the EHR, and considered to be reliable. Chief Complaint "I've been under a lot of stress.". History of Present Illness Emma is a 36 yo woman with long standing alcohol dependence, who is admitted with alcohol withdrawal resulting in weight loss, N/V, and excoriation of her esophagus. She feels "tired" today and reports ongoing pain/burning of esophagus making it difficult to eat. Her primary complaint is that of anxiety , in anticipation of a scheduled hearing on 04/14/17 for DUI and public drunkenness charges from October. She fully expects to get either halfway time or sent to "boot camp", and gets anxious even talking about it. She also went through a breakup with a boyfriend recently. She reports that when having anxiety she experiences tremors, restlessness, and a sensation of her head spinning. She denies that she was a chronic person before this. Her mood is "very anxious", and sleep "non existant". She has been crying a lot, eating little and has lost 10 lbs over 2 weeks. She denies SI/HI. Denies aud/vis hallucinations. She scores a 6 on the PHQ9 Past Psychiatric History Current OP Treatment: no current treatment Prior OP Treatment: no prior treatment Prior Psych Hospitalizations: none Access to a Gun: No Suicide Attempts: No Past Medication Trials none Past Medical/Surgical History History of Concussion/Seizure: No (1) Fatty liver Allergies Allergies: Coded Allergies: No Known Allergies (Unverified , 03/30/17) Home Medications Unable to Obtain Active Prescriptions or Reported Meds Family History Cancer Diabetes mellitus Lung disease History of Suicide: Yes (maternal grandmother) History of Substance Abuse: Yes (father recovering alcoholic) Psychiatric History: Yes Alcohol Use Alcohol Use In Past 12 Months: Yes Recently was not drinking daily, but does not specify how frequently. Drinks up to 10 shots per event. Has been in several rehabs, last 1 yr ago in [place], was there for 45 days and then attended [facility] locally. Is not interested in going back to rehab. Smoking Use Smoking Status: Current Every Day Smoker Substance History denies Personal History Lives in: [place], [facility] Education: graduated from high school Work History: unemployed Relationship History: never Children: none Spiritual Affiliation: none Legal History: reported (DUI, public drunkenness in Oct) Psychological Trauma History: Other (denies) Review of Systems Constitutional: malaise Eyes: denies: no symptoms, as stated in HPI, eye pain, tearing, itching, redness, discharge, double vision, visual changes, blurred vision, photophobia, other ENT: denies: no symptoms reported, see HPI, ear pain, ear discharge, loss of hearing, tinnitus, nasal pain, nasal congestion, rhinorrhea, epistaxis, sore throat, stidor, throat swelling, mouth pain, mouth swelling, dental pain, gum swelling, other Cardiovascular: denies: no symptoms reported, see HPI, chest pain, chest tightness, chest pressure, diaphoresis, palpitations, syncope, other Respiratory: denies: no symptoms reported, see HPI, cough, orthopnea, short of breath, stridor, wheezing, sputum production, cyanosis, CUTLER, PND, other Gastrointestinal: abdominal pain, nausea, vomiting Genitourinary - Female: denies: no symptoms, see HPI, rash, amenorrhea, dysmenorrhea, menorrhagia, metrorrhagia, , vaginal bleeding, vaginal itching, vaginal discharge, vulvadynia, other Musculoskeletal: denies no symptoms reported, denies see HPI, denies back pain , denies gout, denies joint pain, denies joint swelling, denies muscle pain, denies muscle stiffness, denies neck pain, denies other Integumentary: denies no symptoms reported, denies see HPI, denies change in color, denies change in hair/nails, denies dryness, denies lesions, denies lumps , denies rash, denies other Neurologic: denies: no symptoms, see HPI, headache, numbness, paresthesias, pre -existing deficit, seizure, tingling, tremors, general weakness, tics, focal weakness, vertigo, lethargy, memory loss, dizziness, other Endocrine: denies: no symptoms, as stated in HPI, cold intolerance, heat intolerance, hair changes, goiter, polydipsia, polyuria, skin changes, other Hematologic / Lymphatic: denies: no symptoms, as stated in HPI, abnormal clotting, adenopathy, anemia, easy bleeding, easy bruising, gums bleeding, petechiae, other Examination Physical Examination As per Dr. Alexander Vital Signs Vital Signs Past 12 Hours Date Time Temp Pulse Resp B/P (MAP) Pulse Ox O2 Delivery O2 Flow Rate FiO2 03/31/17 08:17 37.1 72 20 104/69 (81) 99 Room Air 03/31/17 08:06 Room Air 03/31/17 04:00 97 Room Air 03/31/17 03:53 37.4 83 16 95/61 (72) 97 Room Air 03/31/17 00:00 98 Room Air Laboratory Results Last 24 Hours Test 03/31/17 05:10 White Blood Count 7.81 K/uL Red Blood Count 3.37 M/uL Hemoglobin 12.0 g/dL Hematocrit 35.9 % Mean Corpuscular Volume 106.5 fL Mean Corpuscular Hemoglobin 35.6 pg Mean Corpuscular Hemoglobin Concent 33.4 g/dl Platelet Count 56 K/uL Mean Platelet Volume 10.8 fL Neutrophils (%) (Auto) 81.6 % Lymphocytes (%) (Auto) 13.2 % Monocytes (%) (Auto) 4.2 % Eosinophils (%) (Auto) 0.6 % Basophils (%) (Auto) 0.1 % Neutrophils # (Auto) 6.37 K/uL Lymphocytes # (Auto) 1.03 K/uL Monocytes # (Auto) 0.33 K/uL Eosinophils # (Auto) 0.05 K/uL Basophils # (Auto) 0.01 K/uL RDW Standard Deviation 53.0 fL RDW Coefficient of Variation 13.7 % Immature Granulocyte % (Auto) 0.3 % Immature Granulocyte # (Auto) 0.02 K/uL Platelet Estimate DECREASED Sodium Level 138 mmol/L Potassium Level 3.9 mmol/L Chloride Level 103 mmol/L Carbon Dioxide Level 25 mmol/L Anion Gap 10.0 mmol/L Blood Urea Nitrogen 13 mg/dl Creatinine 1.30 mg/dl Est Creatinine Clear Calc Drug Dose 52.6 ml/min Estimated GFR () 62.0 Estimated GFR (Non- 53.5 BUN/Creatinine Ratio 9.6 Random Glucose 97 mg/dl Calcium Level 7.2 mg/dl Magnesium Level 2.0 mg/dl Total Bilirubin 1.2 mg/dl Direct Bilirubin 0.5 mg/dl Aspartate Amino Transf (AST/SGOT) 96 U/L Alanine Aminotransferase (ALT/SGPT) 37 U/L Alkaline Phosphatase 89 U/L Total Protein 5.8 gm/dl Albumin 3.0 gm/dl Mental Examination During interview pt is: alert and oriented, cooperative Appearance: appropriately groomed Eye contact is: fair Motor behavior is: no abnormal motor movements Speech: other (quiet due to sore throat) Affect: tearful, flat Mood is: depressed, anxious Thought process: goal directed Thought content: reality based without delusions Suicidal thought are: denied Homicidal thoughts are: denied Hallucinations: denies auditory, denies visual Cognition: attention grossly intact, language grossly intact Intelligence estimated to be: average Insight: impaired Judgement: impaired Impression / Recommendations Impression 36 yo woman admitted with complications of alcohol withdrawal. She is not interested in returning to rehab, but will go back to IOP and so will defer this to social service. In terms of her mood and anxiety, both are acute as she approaches her court date. She is requesting to try and antidepressant which seems reasonable given her symptoms and so will start Zoloft 25 mg. today increasing to 50 mg. tomorrow. Will likely need to be further titrated and will have the liaison nurse return to make referrals for OP treatment. She is asking for something for sleep, but until she is able to maintain some sobriety , her sleep will remain disturbed. Inventory Assets Strengths: Love of her family Risk Factors Assessment /single/: Yes Higher / Fall in social status: No Access to guns: No Health problems: Yes Mental Health Diagnoses: No Substance use disorders: Yes Previous attempt: No Previous psychiatric stay: No Smoker: Yes Protective Factors Assessment Denominational beliefs: No : No Responsible for young children: No Employed: No Stable relationships: No Supportive family: Yes Recommendations (1) Anxiety and depression 03/31 -Start Zoloft 25 mg. today increasing to 50 mg. tomorrow. R/B/A reviewed and accepted including black box warning - Will have liaison nurse return to facilitate psychiatric follow up. - Does not meet criteria for inpatient treatment (2) Alcohol dependence 03/31 - Recommend rehab, but patient is refusing, but willing for IOP. Social service can make referrals. - Agree with AWSS protocol - No history of withdrawal seizures Has been reviewed with Dr. Watters
[2017-03-31] MEDS ORDERED: SERTRALINE HCL 50 MG TAB PO ONE (12:29)
[2017-03-31] MEDS: SERTRALINE HCL 50 MG TAB PO SCH (14:18)
[2017-03-31] MEDS: MULTI-VITAMIN INFUSION INJ 10 ML, THIAMINE HCL INJ 100 MG, FoLIC ACID INJ 1 MG in SODIU... IV SCH (14:22)
[2017-03-31] MEDS: GABAPENTIN 400MG Q8H DOSE PO SCH ×2 (14:59→21:47)
[2017-03-31] MEDS ORDERED: LIDOCAINE HCL 2% VISC SOLN 20 ML UDC MT PRN (15:45)
[2017-03-31] MEDS: hydrOXYzine HCL 25 MG TAB PO PRN (23:32)
[2017-04-01] MEDS: LORAZEPAM 1 MG TAB PO PRN ×2 (02:13→09:11)
[2017-04-01 03:46] VITALS: BP 109/74; PULSE 70; TEMP 37.1; O2SAT 97
[2017-04-01 05:31] LABS: HEMATOCRIT 36.5 % (37-47); MEAN CELL VOLUME 105.2 fL (80-100); MEAN CORPUSCULAR HEMOGLOBIN 35.4 pg (25-34); MEAN CORPUSCULAR HGB CONC 33.7 g/dl (32-36); RED BLOOD COUNT 3.47 M/uL (4.2-5.4); WHITE BLOOD COUNT 5.12 K/uL (4.8-10.8)
[2017-04-01 05:33] LABS: MEAN PLATELET VOLUME 10.7 fL (7.4-10.4); PLATELET COUNT 32 K/uL (130-400)
[2017-04-01] MEDS: HEPARIN SOD 5000 UNIT/0.5 ML CARP SQ SCH ×2 (05:43→14:00)
[2017-04-01 05:59] LABS: BUN/CREATININE RATIO 7.7 (10-20); CALCIUM 7.4 mg/dl (8.5-10.1); CREATININE 0.79 mg/dl (0.60-1.20); POTASSIUM 3.3 mmol/L (3.5-5.1)
[2017-04-01] MEDS: SODIUM CHLORIDE 0.9% 1000ML 1,000 ML IV SCH ×2 (06:15→11:44)
[2017-04-01] MEDS: GABAPENTIN 400MG Q8H DOSE PO SCH (06:15)
[2017-04-01 07:55] VITALS: BP 128/93; PULSE 81; TEMP 36.9; O2SAT 96
[2017-04-01 08:00] VITALS: O2SAT 96
[2017-04-01] MEDS: POTASSIUM CHLR 10 MEQ / WTR 10 MEQ in PREMIXED WATER 100 ML IV SCH ×2 (08:04→09:55)
[2017-04-01] MEDS: SERTRALINE HCL 50 MG TAB PO SCH (08:05)
[2017-04-01] MEDS: NICOTINE 21 MG/24 HR TDSY TD SCH (08:05)
[2017-04-01] MEDS ORDERED: POTASSIUM CHLORIDE 10 MEQ TABCR PO ONE (09:00)
[2017-04-01] MEDS: ONDANSETRON INJ 2 MG/ML 2 ML VIAL IV PRN (09:10)
[2017-04-01 12:09] VITALS: BP 114/81; PULSE 77; TEMP 37.2; O2SAT 94
[2017-04-01] MEDS: MULTI-VITAMIN INFUSION INJ 10 ML, THIAMINE HCL INJ 100 MG, FoLIC ACID INJ 1 MG in SODIU... IV SCH (14:37)
[2017-04-01 15:04] VITALS: BP 127/84; PULSE 67; TEMP 37; O2SAT 96
--- NOTE | 2017-04-01 15:43 | Progress Note ---
Medicine Progress Note Date & Time of Visit: Apr 01, 2017 at 15:32. Subjective Pt was seen and examined Sitting at the edge of the bed comfortable getting ready to use the bathroom Pt said that she feels a lot better today she said that her dizziness improved She denies any chest pain, palpitation, and SOB Pt would like to go home today Refused to stay for one more day to check her platelet Tolerated her diet Objective Last 8 Hrs Date Time Temp Pulse Resp B/P (MAP) Pulse Ox O2 Delivery O2 Flow Rate FiO2 04/01/17 12:09 37.2 77 16 114/81 (92) 94 Room Air 04/01/17 12:00 Room Air 04/01/17 08:00 96 Room Air 04/01/17 07:55 36.9 81 16 128/93 (105) 96 Room Air 81 Physical Exam: General- No acute distress Head- atraumatic Eyes- PERRL, EOMI ENT- oropharynx clear Neck- supple, no JVD Lungs- clear to auscultation Heart- regular rhythm; no murmur Abdomen- normal bowel sounds, soft Extremities- no pretibial edema, no calf tenderness Neuro- alert, oriented x 3; PERRL, EOMI; no facial palsy; no dysarthria; motor 5 /5 bilaterally Skin- warm & dry Laboratory Results: Last 24 Hours Test 04/01/17 05:15 White Blood Count 5.12 K/uL Red Blood Count 3.47 M/uL Hemoglobin 12.3 g/dL Hematocrit 36.5 % Mean Corpuscular Volume 105.2 fL Mean Corpuscular Hemoglobin 35.4 pg Mean Corpuscular Hemoglobin Concent 33.7 g/dl RDW Standard Deviation 51.8 fL RDW Coefficient of Variation 13.5 % Platelet Count 32 K/uL Mean Platelet Volume 10.7 fL Sodium Level 139 mmol/L Potassium Level 3.3 mmol/L Chloride Level 106 mmol/L Carbon Dioxide Level 25 mmol/L Anion Gap 8.0 mmol/L Blood Urea Nitrogen 6 mg/dl Creatinine 0.79 mg/dl Est Creatinine Clear Calc Drug Dose 86.5 ml/min Estimated GFR () 113.2 Estimated GFR (Non- 97.7 BUN/Creatinine Ratio 7.7 Random Glucose 98 mg/dl Calcium Level 7.4 mg/dl Vitamin B12 Level 898 pg/mL Folate > 24.00 ng/mL Assessment & Plan Alcohol Withdrawal Presented with Leukocytosis, Tachycardia, Nausea, vomiting, RUQ abdominal pain Continue alcohol withdrawal protocol (Gabapentin, Ativan PRN) Continue IV Fluids, Banana bag No signs of DT PT refused to go for inpatient alcohol rehab She said that she will try for outpatient alcohol rehab quality project manager provided pt with in and brochures Pt said that she would call to arrange for outpatient rehab Nausea/Vomiting Possible secondary to alcohol withdrawal Continue zofran prn Abd U/S showed no acute sonographic abnormality. tolerated diet well resolved Dizziness continue meclizine prn stable Sore throat Secondary to the vomiting continue lidocaite soln prn improved ZUHAIR: Likely secondary to dehydration from nausea, vomiting Creatine on admission was 1.8, improved to 0.79 Received IV Avoid nephrotoxic agents resolved Thrombocytopenia possible related to alcohol No sign of bleeding Continue monitor platelet Hypomagnesemia/Hyponatremia/Hypochloremia Continue IVF potassium replaced Monitor electrolytes Anxiety/Depression In setting of alcohol abuse Psych on board started on zoloft 50mg daily follow up with psych as an outpatient Tobacco use disorder: Nicotine patch Financial Aid Manager to quit smoking DVT Px: hold Heparin SQ due to low platelet Code Status Full Code Disposition: Discharge once medically stable director of food and nutrition services consulted for possible rehab placement Consultants: Psych Current Inpatient Medications: Current Inpatient Medications Medications (Trade) Dose Ordered Sig/Darrin Route Start Time Stop Time Status Last Admin Dose Admin Heparin Sodium (Porcine) (Heparin Sq 5000 Unit/0.5ml) 5,000 unit Q8 SQ 03/30/17 14:00 04/29/17 13:59 03/31/17 06:01 5,000 UNIT Sodium Chloride 1,000 ml @ 125 mls/hr Q8H IV 03/30/17 11:49 04/29/17 11:48 04/01/17 11:44 125 MLS/HR Acetaminophen (Tylenol Tab) 650 mg Q4H PRN PO 03/30/17 12:00 04/29/17 11:59 03/31/17 07:38 650 MG Ondansetron HCl (Zofran Inj) 4 mg Q6H PRN IV 03/30/17 12:00 04/29/17 11:59 04/01/17 09:10 4 MG Multivitamins 10 ml/Thiamine HCl 100 mg/Folic Acid 1 mg/Sodium Chloride 1,011.2 ml @ 125 mls/ hr DAILY@1400 IV 03/30/17 14:00 04/29/17 13:59 04/01/17 14:37 125 MLS/HR Lorazepam (Ativan Tab) PRN Dosing -Active Protocol UD PRN PO 03/30/17 12:00 04/29/17 11:59 04/01/17 09:11 2 MG Nicotine (Nicoderm Cq 21MG Patch) 1 patch QAM TD 03/30/17 14:00 04/29/17 13:59 04/01/17 08:05 1 PATCH Miscellaneous (Remove Nicoderm Patch) 1 ea HS N/A 03/30/17 21:00 04/29/17 20:59 03/31/17 21:00 1 EA Gabapentin (Neurontin Cap) 400 mg Q12H PO 04/01/17 18:00 04/02/17 06:01 Gabapentin (Neurontin Cap) 400 mg Q24H PO 04/03/17 06:00 04/03/17 06:01 Menthol (Nice Holalnd) 1 holland PRN PRN PO 03/30/17 14:30 04/29/17 14:29 Famotidine 20 mg/ Dextrose 102 ml @ 200 mls/hr Q12H PRN IV 03/30/17 14:45 04/29/17 14:44 03/31/17 08:32 200 MLS/HR Hydroxyzine HCl (Vistaril Tab) 50 mg HS PRN PO 03/30/17 20:00 04/29/17 19:59 03/31/17 23:32 50 MG Meclizine HCl (Antivert Tab) 25 mg Q8H PRN PO 03/31/17 09:00 04/30/17 08:59 03/31/17 19:27 25 MG Sertraline HCl (Zoloft Tab) 50 mg QAM PO 04/01/17 09:00 05/01/17 08:59 04/01/17 08:05 50 MG Lidocaine HCl (Viscous Lidocaine 2% Soln) 20 ml Q6H PRN MT 03/31/17 15:45 04/30/17 15:44 03/31/17 17:17 20 ML
--- NOTE | 2017-04-01 16:54 | Discharge Instructions ---
Discharge Instructions Date of Service Apr 01, 2017. Admission Reason for Admission: Nausea & Vomiting Discharge Discharge Diagnosis / Problem: Nausea/Vomiting/Alcohol Withdrawal/ Acute kidney injury/Anxiety/depression Discharge Goals Goal(s): Decrease discomfort, Improve function, Improve disease control Activity Recommendations Activity Limitations: resume your previous activity (as tolerated) . Instructions / Follow-Up Instructions / Follow-Up Follow up appointment with your primary care provider Dr. Gaston on 04/07 @ 3:20pm Follow up appointment with Psych on 04/07 @ 1 PM Continue Zoloft 50mg daily Call for outpatient services for help for alcohol abuse Check cbc and BMP within 1 week Avoid medication that can damage your kidney such as NSAIDs now ( motrin, ibuprofen, naproxen, aleve) increase potassium intake in your diet ( banana, yogurt...) Current Hospital Diet Patient's current hospital diet: Regular Diet Discharge Diet Recommended Diet: Regular Diet Pending Studies Studies pending at discharge: no Medical Emergencies . Who to Call and When: Medical Emergencies: If at any time you feel your situation is an emergency, please call 911 immediately. . Non-Emergent Contact Non-Emergency issues call your: Primary Care Provider Call Non-Emergent contact if: you have any medication questions . . "Provider Documentation" section prepared by Rudi Marie. . VTE Core Measure Inpt VTE Proph given/why not?: Unfractionated heparin SQ, SCD's, Contraindicated [place] Drug Monitoring Program Search Results: no issues identified
[2017-04-01] MEDS ORDERED: ANT25 PO (16:59)
[2017-04-01] MEDS ORDERED: ZLF50 PO (16:59)
[2017-04-01] MEDS ORDERED: ONDA4TAB10 SL (16:59)
[2017-04-01 17:02] VITALS: BP 127/84; PULSE 67; TEMP 37; O2SAT 96
[2017-04-01] MEDS ORDERED: GABAPENTIN 400MG Q12H DOSE PO SCH (18:00)
--- NOTE | 2017-04-02 16:34 | EDITING REQUIRED CODING QUERY ---
SEPSIS Dear Dr. Marie, To promote full compliance with coding requirements relating to patient care, physician participation is requested in all cases of cpc coder uncertainty. Please assist us with the question(s) below: In responding to this query, please exercise your independent professional judgement. The fact that a question is asked does not imply that any particular answer is desired or expected. We appreciate your clarification on this issue. SIRS is documented on the H and P but not on the Discharge Summary. Does the patient have the following? Please maude all that apply by placing a "X" in the parentheses. Medical documentation: SIRS Alcohol Withdrawal Presented with Leukocytosis, Tachycardia, Nausea, vomiting, RUQ abdominal pain ( )Bacteremia (Nonspecific laboratory finding of bacteria in the blood) Specify Organism () Present on Admission () Not present on admission () Unable to clinically determine ( ) Septicemia (Systemic disease associated with the presence of pathogenic microorganisms in the blood): Specify Organism () Present on Admission () Not present on admission () Unable to clinically determine ( ) Sepsis Specify Organism Specify Associated Condition/Diagnosis () Present on Admission () Not present on admission () Unable to clinically determine ( ) Severe Sepsis (Sepsis associated with acute organ dysfunction) Specify Organism Specify Associated Condition/Diagnosis () Present on Admission () Not present on admission () Unable to clinically determine ( ) Septic Shock (Severe sepsis with acute circulatory failure, unexplained by other causes) () Present on Admission () Not present on admission () Unable to clinically determine ( ) SIRS (noninfectious) () Present on Admission () Not present on admission () Unable to clinically determine ( ) SIRS was ruled out ( ) Sepsis was ruled out () Other, patient has: Please explain: Thanks you for your time. Holley Solis, HEEL CUTTER
[2017-04-03] MEDS ORDERED: GABAPENTIN 400MG X1 DOSE PO SCH (06:00)
--- NOTE | 2017-04-03 20:07 | Discharge Summary ---
Discharge Summary Date of Service Apr 03, 2017. Discharge Summary Admission Date: Mar 30, 2017 at 11:55 Discharge Date: Apr 01, 2017 Discharge Disposition: Home Principal Diagnosis: Alcohol Withdrawal symptoms Secondary Diagnoses/Problems: Nausea/Vomiting ZUHAIR Thrombocytopenia Hypomagnesemia/Hyponatremia/Hypochloremia Anxiety/Depression Dizziness Sore throat Tobacco abuse Procedures: ULTRASOUND ABDOMEN COMPLETE CLINICAL HISTORY: Generalized abdominal pain. Vomiting. Nausea. Loss of appetite. COMPARISON STUDY: No priors. TECHNIQUE: Real-time, grayscale, and color flow sonography of the abdomen was performed. Images are reviewed in the transverse and longitudinal planes. FINDINGS: Liver: The liver is normal in size and pituitary ages increased echotexture suggesting mild steatosis. There is no intrahepatic biliary ductal dilatation. The main portal vein is patent. Gallbladder: The gallbladder is normal in appearance. No gallstones are identified. There is no gallbladder wall thickening or pericholecystic fluid. A sonographic Lofton's sign is reportedly absent. The common bile duct measures up to 0.3 cm in diameter. Pancreas: Visualized portions of the pancreatic head and body are normal in appearance. The splenic vein is patent. Spleen: The spleen is normal in size and echotexture, measuring 10.5 cm in length. Kidneys: The kidneys are normal in size and echotexture. There is no hydronephrosis. The right kidney measures 10.7 cm in length and the left kidney measures 9.4 cm in length. No shadowing calculi are identified. Abdominal vasculature: Visualized portions of the abdominal aorta and IVC are normal as imaged. Ascites: None. IMPRESSION: 1. No acute sonographic abnormality is identified. 2. Findings suggest mild hepatic steatosis. Electronically signed by: Konrad Acosta M.D. 03/30/2017 5:58 PM Dictated Date/Time: 03/30/2017 5:56 PM TWO VIEW CHEST CLINICAL HISTORY: Cough. Nausea and cramping. FINDINGS: PA and lateral chest radiographs are compared to study dated 11/14/2015. The cardiomediastinal silhouette is unremarkable. There is mild nonspecific interstitial thickening. A nipple shadow projects over the right lower lung. No lobar consolidation, pleural effusion, or pneumothorax is seen. Chronic appearing deformity is seen at the right acromioclavicular joint. There is mild S-shaped thoracolumbar scoliosis. IMPRESSION: 1. There is no lobar consolidation or pleural effusion. 2. Mild nonspecific interstitial thickening is identified and may represent a mild infectious/inflammatory pneumonitis. Clinical correlation will be required. 3. Chronic appearing deformity/separation is identified at the right acromioclavicular joint Electronically signed by: Konrad Acosta M.D. 03/30/2017 1:18 PM Dictated Date/Time: 03/30/2017 1:15 PM Consultations: Psych Medication Reconciliation New Medications: Ondasetron Odt (Zofran Odt) 4 Mg Tab 4 MG SL Q8 for 7 Days, #21 TAB Meclizine HCl (Meclizine HCl) 25 Mg Tab 25 MG PO Q12 PRN for Dizziness or Vertigo for 7 Days, #14 TAB Sertraline HCl (Sertraline HCl) 50 Mg Tab 50 MG PO DAILY for 30 Days, #30 TAB Admission Information HPI (per Admitting provider): Patient is a 36 Yr female with PMH of Alcohol and Tobacco use disorder, anxiety and depression who is currently not on any medications presents with nausea, vomiting, decreased appetite since 2-3 days duration. Patient is currently very drowsy and her mother at bedside are very poor historians. Family reports that she has been in and out of alcohol rehab facilities multiple times and is a very heavy drinker. Her last alcohol drink was 5 days ago. She reports multiple episodes of nausea, vomiting since last 3 days. Also reports very poor appetite and has not slept since last 2 days. Reports jitteriness, RUQ abdominal pain, generalized weakness, dry intermittent cough. Family reports she has a court hearing on April 22 and has been very anxious as a result lately. Denies any history of fever, diarrhea, urinary symptoms. Denies any history of seizures. History not very reliable as patient is drowsy and received Ativan while in ED. Physical Exam (per Admitting): General Appearance: WD/WN, no apparent distress, + pertinent finding (Drowsy ) Head: normocephalic, atraumatic Eyes: normal inspection, PERRL ENT: normal ENT inspection, hearing grossly normal Neck: supple, trachea midline Respiratory/Chest: chest non-tender, normal breath sounds, no accessory muscle use, + pertinent finding (Creps at bases) Cardiovascular: regular rate, rhythm, no edema, no murmur Abdomen/GI: normal bowel sounds, soft, + tenderness (RUQ) Back: normal inspection Extremities/Musculoskelatal: normal inspection, no pedal edema Neurologic/Psych: maintenance millwright II-XII nml as tested, no motor/sensory deficits, normal mood/affect, oriented x 3, + pertinent finding (Drowsy) Skin: normal color, warm/dry Hospital Course Alcohol Withdrawal Presented with Leukocytosis, Tachycardia, Nausea, vomiting, RUQ abdominal pain Continue alcohol withdrawal protocol (Gabapentin, Ativan PRN) Continue IV Fluids, Banana bag No signs of DT PT refused to go for inpatient alcohol rehab She said that she will try for outpatient alcohol rehab manager internet provided pt with in and brochures Pt said that she would call to arrange for outpatient rehab Nausea/Vomiting Possible secondary to alcohol withdrawal Continue zofran prn Abd U/S showed no acute sonographic abnormality. tolerated diet well resolved Dizziness continue meclizine prn stable Sore throat Secondary to the vomiting continue lidocaite soln prn improved ZUHAIR: Likely secondary to dehydration from nausea, vomiting Creatine on admission was 1.8, improved to 0.79 Received IV Avoid nephrotoxic agents resolved Thrombocytopenia possible related to alcohol No sign of bleeding Continue monitor platelet Hypomagnesemia/Hyponatremia/Hypochloremia Continue IVF potassium replaced Monitor electrolytes Anxiety/Depression In setting of alcohol abuse Psych on board started on zoloft 50mg daily follow up with psych as an outpatient Tobacco use disorder: Nicotine patch 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 Discharge Instructions Discharge Instructions Date of Service Apr 01, 2017. Admission Reason for Admission: Nausea & Vomiting Discharge Discharge Diagnosis / Problem: Nausea/Vomiting/Alcohol Withdrawal/ Acute kidney injury/Anxiety/depression Discharge Goals Goal(s): Decrease discomfort, Improve function, Improve disease control Activity Recommendations Activity Limitations: resume your previous activity (as tolerated) . Instructions / Follow-Up Instructions / Follow-Up Follow up appointment with your primary care provider Dr. Gaston on 04/07 @ 3:20pm Follow up appointment with Psych on 04/07 @ 1 PM Continue Zoloft 50mg daily Call for outpatient services for help for alcohol abuse Check cbc and BMP within 1 week Avoid medication that can damage your kidney such as NSAIDs now ( motrin, ibuprofen, naproxen, aleve) increase potassium intake in your diet ( banana, yogurt...) Current Hospital Diet Patient's current hospital diet: Regular Diet Discharge Diet Recommended Diet: Regular Diet Pending Studies Studies pending at discharge: no Medical Emergencies . Who to Call and When: Medical Emergencies: If at any time you feel your situation is an emergency, please call 911 immediately. . Non-Emergent Contact Non-Emergency issues call your: Primary Care Provider Call Non-Emergent contact if: you have any medication questions . . "Provider Documentation" section prepared by Rudi Marie. . VTE Core Measure Inpt VTE Proph given/why not?: Unfractionated heparin SQ, SCD's, Contraindicated [place] Drug Monitoring Program Search Results: no issues identified Additional Copies To Aj Gaston III, M.D.
--- NOTE | 2017-04-03 20:10 | Progress Note ---
Progress Note Date of Service Apr 03, 2017. Progress Note SIRS r/o during this admission
== END 2017-04-01 17:14 | disposition home or self-care (01) | DRG 683 ==
LOC: C.EDB 08:17 → C.2T 11:55 → ENRESERV 12:12
PROVIDERS: ADMIT Internal Medicine; ATTEND Internal Medicine
DX: N17.9 Acute kidney failure, unspecified (principal); F10.239 Alcohol dependence with withdrawal, unspecified; E87.1 Hypo-osmolality and hyponatremia; R11.2 Nausea with vomiting, unspecified; F41.9 Anxiety disorder, unspecified; F32.9 Major depressive disorder, single episode, unspecified; D72.829 Elevated white blood cell count, unspecified; R00.0 Tachycardia, unspecified; E86.0 Dehydration; F17.210 Nicotine dependence, cigarettes, uncomplicated; K76.0 Fatty (change of) liver, not elsewhere classified; Y90.8 Blood alcohol level of 240 mg/100 ml or more; E83.42 Hypomagnesemia; E87.8 Other disorders of electrolyte and fluid balance, not elsewhere classified; R42 Dizziness and giddiness; R10.11 Right upper quadrant pain; R07.0 Pain in throat; D69.6 Thrombocytopenia, unspecified; Z81.8 Family history of other mental and behavioral disorders; Z81.4 Family history of other substance abuse and dependence

== ENCOUNTER 2017-05-08 09:59 | Emergency (ER) | payer OTHER ==
[~2017-05-08] VITALS: Ht 162.6 cm; Wt 52.6 kg
[~2017-05-08 09:59] MED LIST changes: +ANT25 PO; -OXYC5TAB PO; +ZLF50 PO
[2017-05-08 10:06] VITALS: TEMP 36.6; Ht 162.6 cm; Wt 52.6 kg
[2017-05-08] MEDS ORDERED: PROCHLORPERAZINE 5 MG/ML 2 ML VIAL IV STA (10:56)
[2017-05-08] MEDS ORDERED: SODIUM CHLORIDE 0.9% 1000ML 1,000 ML IV STA ×3 (10:56→18:56)
[2017-05-08] MEDS ORDERED: DiphenhydrAMINE HCL 50 MG/ML VIAL IV STA (10:56)
--- NOTE | 2017-05-08 10:57 | EMERGENCY ROOM VISIT NOTE ---
History Report prepared by Albaro: Estela Wyman Under the Supervision of: Dr. Jaqui Viveros D.O. First contact with patient: 10:25 Chief Complaint: ILLNESS Stated Complaint: FACIAL SWELLING, DIZZINESS, NAUSEA, DOUBLE VISION History of Present Illness The patient is a 36 year old female who presents to the Emergency Room with complaints of generalized illness starting three days ago. She notes that she felt like her face was swollen which is a new symptom she has not experienced before. The patient denies any facial surgery or sinus issues that may of caused the swelling. The patient was in a rehab for alcohol abuse in [place] over a year ago. The patient states she "wasn't able to stay sober long after getting back". She also notes that she has had a problem with alcohol abuse for 15+ years and that she also has a family history of alcohol abuse. She notes that she usually drinks a fifth in a week and states her last drink was 3 or 4 days ago. She also notes she often wakes up shaky after drinking and that it usually takes a couple days for the shakiness to go away. The patient was recently admitted to the hospital about a month ago for alcohol withdrawal. She also notes that she has nausea, no appetite, abdominal pain, vomiting. The patient notes there has been some changes in her bowel movements but there has been no blood in her stool. She also has a history of a fatty liver and edema in her legs. The patient notes that she is "under a lot of stress that she is going away for a little bit". Per mother, the patient smokes about a pack a day and will be either under house arrest for 9 months or go to care home for a year starting the end of this month. Source of History: patient Onset: Three days ago Position: other (Generalized) Quality: other (illness) Associated Symptoms: + nausea, + vomiting, + abdominal pain Note: Patient also notes face swelling, no appetite, and shakiness.. Review of Systems See HPI for pertinent positives & negatives. A total of 10 systems reviewed and were otherwise negative. Past Medical & Surgical Medical Problems: (1) Acute alcohol intoxication (2) Alcohol abuse (3) Alcohol dependence (4) Altered mental status (5) Anxiety and depression (6) Fatty liver (7) Hypokalemia (8) Nausea & vomiting (9) Right clavicle fracture (10) Separation of right acromioclavicular joint Surgical Problems: (1) History of dental surgery Family History Cancer Diabetes mellitus Lung disease Social History Smoking Status: Current Every Day Smoker Alcohol Use: heavy Drug Use: none Marital Status: single Housing Status: lives with family Occupation Status: unemployed Current/Historical Medications Scheduled Sertraline HCl (Sertraline HCl), 50 MG PO DAILY Trazodone Hcl (Trazodone), 50 MG PO HS Scheduled PRN Chlordiazepoxide (Librium), 25 MG PO DIRECTED PRN for Anxiety/Agitation Allergies Coded Allergies: No Known Allergies (Unverified , 05/08/17) Physical Exam Vital Signs Date Time Temp Pulse Resp B/P (MAP) Pulse Ox O2 Delivery O2 Flow Rate FiO2 05/08/17 22:12 84 20 115/78 98 Room Air 05/08/17 21:04 92 13 93 05/08/17 21:01 109/79 05/08/17 20:34 101 6 94 05/08/17 20:04 97 12 92 05/08/17 20:01 119/91 05/08/17 19:34 93 21 94 05/08/17 19:28 93 05/08/17 19:04 87 17 96 05/08/17 19:01 88/61 05/08/17 17:34 99 18 93 05/08/17 17:29 100 18 93 05/08/17 17:00 97/65 05/08/17 16:59 103 23 90 05/08/17 16:29 95 6 94 05/08/17 16:01 92/54 05/08/17 15:59 97 18 93 05/08/17 15:29 101 20 93 05/08/17 15:28 102 18 90/52 93 Room Air 05/08/17 15:01 90/52 05/08/17 14:59 95 16 93 05/08/17 14:29 87 14 97 05/08/17 14:15 93 20 83/56 93 Room Air 05/08/17 14:14 83/56 05/08/17 14:01 77/50 05/08/17 13:59 86 16 92 05/08/17 13:49 85 05/08/17 13:29 86 18 92 05/08/17 13:07 83/48 05/08/17 13:05 88 20 83/48 97 Room Air 05/08/17 13:01 76/49 05/08/17 12:59 88 19 93 05/08/17 12:29 84 16 93 05/08/17 12:21 93 Room Air 05/08/17 12:11 94/50 05/08/17 12:10 83/48 05/08/17 12:07 73/50 05/08/17 12:01 81/57 05/08/17 12:00 86 20 94/50 97 Room Air 05/08/17 11:59 87 7 84/54 05/08/17 10:59 84 24 05/08/17 10:51 89 05/08/17 10:06 36.6 93 18 97/68 97 Room Air Physical Exam GENERAL: alert, well appearing, well nourished, no distress, non-toxic . Patient appears tearful and anxious. HEAD: No obvious facial swelling. No palatable swelling. EYE EXAM: normal conjunctiva, PERRL and EOM's grossly intact OROPHARYNX: no exudate, no erythema, lips, buccal mucosa, and tongue normal and mucous membranes are moist. No evidence of dental decay. NECK: supple, no nuchal rigidity, no adenopathy, non-tender LUNGS: Clear to auscultation. Normal chest wall mechanics HEART: no murmurs, S1 normal and S2 normal ABDOMEN: abdomen soft, non-tender, normo-active bowel sounds, no masses, no rebound or guarding. BACK: Back is symmetrical on inspection and there is no deformity, no midline tenderness, no CVA tenderness. SKIN: no rashes and no bruising UPPER EXTREMITIES: upper extremities are grossly normal. LOWER EXTREMITIES: No pitting edema. Medical Decision & Procedures ER Provider Diagnostic Interpretation: Radiology results have been interpreted by the radiologist and reviewed by me. CHEST AND ABDOMEN 2 VIEWS FINDINGS: The lungs are clear. The cardiomediastinal silhouette is within normal limits. There is no pneumoperitoneum or pneumatosis. The bowel gas pattern is unremarkable. No evidence for bowel obstruction. No renal calculi. Chronic right AC joint separation. Mild S-shaped scoliosis of the thoracolumbar spine. Multiple pelvic calcifications consistent with phleboliths. IMPRESSION: No acute cardiopulmonary process. No evidence for bowel obstruction. Electronically signed by: Cameron Griffin M.D. Laboratory Results 05/08/17 10:25 Red Blood Count 3.64, Mean Corpuscular Volume 108.2, Mean Corpuscular Hemoglobin 38.2, Mean Corpuscular Hemoglobin Concent 35.3, Mean Platelet Volume 9.7, Neutrophils (%) (Auto) 54.5, Lymphocytes (%) (Auto) 29.2, Monocytes (%) ( Auto) 10.9, Eosinophils (%) (Auto) 3.3, Basophils (%) (Auto) 0.8, Neutrophils # (Auto) 3.45, Lymphocytes # (Auto) 1.85, Monocytes # (Auto) 0.69, Eosinophils # ( Auto) 0.21, Basophils # (Auto) 0.05 05/08/17 10:25 Test 05/08/17 10:25 05/08/17 11:00 05/08/17 11:10 White Blood Count 6.33 K/uL (4.8-10.8) Red Blood Count 3.64 M/uL (4.2-5.4) Hemoglobin 13.9 g/dL (12.0-16.0) Hematocrit 39.4 % (37-47) Mean Corpuscular Volume 108.2 fL (80-100) Mean Corpuscular Hemoglobin 38.2 pg (25-34) Mean Corpuscular Hemoglobin Concent 35.3 g/dl (32-36) Platelet Count 210 K/uL (130-400) Mean Platelet Volume 9.7 fL (7.4-10.4) Neutrophils (%) (Auto) 54.5 % Lymphocytes (%) (Auto) 29.2 % Monocytes (%) (Auto) 10.9 % Eosinophils (%) (Auto) 3.3 % Basophils (%) (Auto) 0.8 % Neutrophils # (Auto) 3.45 K/uL (1.4-6.5) Lymphocytes # (Auto) 1.85 K/uL (1.2-3.4) Monocytes # (Auto) 0.69 K/uL (0.11-0.59) Eosinophils # (Auto) 0.21 K/uL (0-0.5) Basophils # (Auto) 0.05 K/uL (0-0.2) RDW Standard Deviation 61.3 fL (36.4-46.3) RDW Coefficient of Variation 15.6 % (11.5-14.5) Immature Granulocyte % (Auto) 1.3 % Immature Granulocyte # (Auto) 0.08 K/uL (0.00-0.02) Anion Gap 7.0 mmol/L (3-11) Est Creatinine Clear Calc Drug Dose 129.1 ml/min Estimated GFR () 145.4 Estimated GFR (Non- 125.5 BUN/Creatinine Ratio 5.1 (10-20) Calcium Level 9.1 mg/dl (8.5-10.1) Magnesium Level 2.0 mg/dl (1.8-2.4) Total Bilirubin 0.4 mg/dl (0.2-1) Aspartate Amino Transf (AST/SGOT) 279 U/L (15-37) Alanine Aminotransferase (ALT/SGPT) 108 U/L (12-78) Alkaline Phosphatase 177 U/L (45-117) Troponin I < 0.015 ng/ml (0-0.045) Total Protein 7.4 gm/dl (6.4-8.2) Albumin 3.5 gm/dl (3.4-5.0) Globulin 3.9 gm/dl (2.5-4.0) Albumin/Globulin Ratio 0.9 (0.9-2) Lipase 351 U/L (73-393) Thyroid Stimulating Hormone (TSH) 3.170 uIu/ml (0.300-4.500) Human Chorionic Gonadotropin, Qual NEG (NEG) Urine Color YELLOW Urine Appearance CLEAR (CLEAR) Urine pH 7.0 (4.5-7.5) Urine Specific [place] 1.012 (1.000-1.030) Urine Protein NEG (NEG) Urine Glucose (UA) NEG (NEG) Urine Ketones NEG (NEG) Urine Occult Blood NEG (NEG) Urine Nitrite NEG (NEG) Urine Bilirubin NEG (NEG) Urine Urobilinogen NEG (NEG) Urine Leukocyte Esterase TRACE (NEG) Urine WBC (Auto) 1-5 /hpf (0-5) Urine RBC (Auto) 0-4 /hpf (0-4) Urine Hyaline Casts (Auto) 1-5 /lpf (0-5) Urine Epithelial Cells (Auto) >30 /lpf (0-5) Urine Bacteria (Auto) 3+ (NEG) Urine Opiates Screen NEG (NEG) Urine Methadone, Qualitative NEG (NEG) Urine Barbiturates NEG (NEG) Urine Phencyclidine (PCP) Level NEG (NEG) Ur Amphetamine/Methamphetamine NEG (NEG) MDMA (Ecstasy) Screen NEG (NEG) Urine Benzodiazepines Screen NEG (NEG) Urine Cocaine Metabolite NEG (NEG) Urine Marijuana (THC) NEG (NEG) Ethyl Alcohol mg/dL 380.0 mg/dl (0-3) Laboratory results per my review. Medications Administered Medications (Trade) Dose Ordered Sig/Darrin Route Start Time Stop Time Status Last Admin Dose Admin Sodium Chloride 1,000 ml @ 999 mls/hr Q1H1M STAT IV 05/08/17 10:56 05/08/17 11:56 DC 05/08/17 11:49 999 MLS/HR Diphenhydramine HCl (Benadryl Inj) 25 mg NOW STAT IV 05/08/17 10:56 05/08/17 10:59 DC 05/08/17 11:49 25 MG Prochlorperazine Edisylate (Compazine Inj) 5 mg NOW STAT IV 05/08/17 10:56 05/08/17 10:59 DC 05/08/17 11:49 5 MG Sodium Chloride 1,000 ml @ 999 mls/hr Q1H1M STAT IV 05/08/17 12:47 05/08/17 13:47 DC 05/08/17 13:08 999 MLS/HR Multivitamins 10 ml/Thiamine HCl 100 mg/Folic Acid 1 mg/Sodium Chloride 1,011.2 ml @ 200 mls/ hr Q5H4M ONCE IV 05/08/17 13:00 05/08/17 18:03 DC 05/08/17 13:08 200 MLS/HR Pantoprazole Sodium 40 mg/ Syringe 10 ml @ 5 mls/min NOW ONCE IV 05/08/17 18:00 05/08/17 18:01 DC 05/08/17 18:59 5 MLS/MIN Chlordiazepoxide (Librium Cap) 25 mg NOW ONCE PO 05/08/17 18:15 05/08/17 18:16 DC 05/08/17 18:59 25 MG Sodium Chloride 1,000 ml @ 999 mls/hr Q1H1M STAT IV 05/08/17 18:56 05/08/17 19:56 DC 05/08/17 18:59 999 MLS/HR Diphenhydramine HCl (Benadryl Cap) 50 mg NOW ONCE PO 05/08/17 22:00 05/08/17 22:01 DC 05/08/17 22:12 50 MG ECG Indication: other (generalized illness) Rate (beats per minute): 87 Rhythm: normal sinus Findings: no acute ischemic change, no ectopy, other (Normal axis, Normal intervals, Low voltage throughout) ED Course 1027: The patient was evaluated in room A4B. A complete history and physical exam was performed. 1056: Compazine Inj 5 mg IV, Benadryl Inj 25 mg IV, Sodium Chloride 1000 ml @ 999 mls/hr IV. 1150: I reevaluated the patient and had additional bedside discussion with the patient's mother regarding tests and imaging of patient. 1247: Sodium Chloride 1000 ml @ 999 mls/hr IV. 1300: Multivitamins 10 ml/Thiamine HCl 100 mg/ Folic Acid 1 mg/ Sodium Chloride 1011.2 ml @ 200 mls/hr IV. 1527: Patient is sleeping heart rate and blood pressure are normal. 1741: Patient is still sleeping, heart rate and blood pressure are still normal. 1916: Pt wakes up easily, discussed results. Pt not yet sober based on lab values although clinically sober at bedside. No apparent signs of withdrawal. Medical Decision Differential diagnosis: Etiologies such as alcohol intoxication, toxicologic, infection, hypoglycemia, electrolyte abnormalities, cardiac sources, intracerebral event, neurologic, as well as others were entertained. Patient chronically sober despite the elevated alcohol level. Patient observed for several hours as a precaution given significant history of alcohol abuse. No prior history of DTs or withdrawal related seizures. Patient with no evidence of alcohol withdrawal here. Several readings of mild hypotension likely secondary to patient's petite body habitus, decreased by mouth intake, and position this patient was lying on her side/she was asleep. Case management discussed with patient referral to rehabilitation, however patient has refused stating that she is going to retirement the end of the month any way. Patient with elevations of her LFTs, likely related to alcohol abuse, doubt other biliary or hepatic pathology. Patient's abdomen soft nontender bedside, no recurrent nausea or vomiting. Patient given IV fluids, banana bag, Protonix , and was otherwise well-appearing. Anticipate as long as patient did not show any signs of acute or life-threatening withdrawal, that she can be discharged home once she is sober. Medication Reconcilliation Current Medication List: was personally reviewed by me Blood Pressure Screening Patient's blood pressure: Normal blood pressure Blood pressure disposition: Did not require urgent referral Impression Primary Impression: Alcohol dependence Additional Impressions: Nausea & vomiting LFTs abnormal Tobacco abuse Scribe Attestation The scribe's documentation has been prepared under my direction and personally reviewed by me in its entirety. I confirm that the note above accurately reflects all work, treatment, procedures, and medical decision making performed by me. Departure Information Dispostion Home / Self-Care Prescriptions Chlordiazepoxide (Librium) 25 Mg Cap 25 MG PO DIRECTED Y for Anxiety/Agitation MDD 300 mg, #20 CAP Take 2 tabs every 4 hours as needed for symptoms of alchol withdrawal the first 2 days,then increase to every 6 hours day 3, then every 8 hours day 4,every 12 hours day 5. Prov: Jaqui Viveros, DO 05/08/17 Referrals Aj Gaston III, M.D. (PCP) Patient Instructions My [facility] Additional Instructions Please continue your efforts to quit drinking alcohol. Please consider rehab. You may use the medication as prescribed to help prevent any withdrawal reactions. Do not take the medication and drink alcohol. If you have any worsening or persistent shaking/tremors, develop recurrent vomiting or diarrhea , develop fevers/chills, have black or bloody stools, develop chest pain or trouble breathing, or you have any other new or concerning symptoms, please return to the emergency room. Problem Qualifiers Primary Impression: Alcohol dependence Substance use status: alcohol-induced anxiety disorder Qualified Codes: F10.280 - Alcohol dependence with alcohol-induced anxiety disorder Additional Impressions: Nausea & vomiting Vomiting type: unspecified Vomiting Intractability: non-intractable Qualified Codes: R11.2 - Nausea with vomiting, unspecified
[2017-05-08] MEDS ORDERED: TRAZ50TA35 PO (10:59)
[2017-05-08 11:05] LABS: BASO % 0.8 %; BASO ABS # 0.05 K/uL (0-0.2); COMPLETE YES; EOS % 3.3 %; HEMATOCRIT 39.4 % (37-47); IG% 1.3 %; LYMPH % 29.2 %; LYMPH ABS # 1.85 K/uL (1.2-3.4); MEAN CELL VOLUME 108.2 fL (80-100); MEAN CORPUSCULAR HEMOGLOBIN 38.2 pg (25-34); MEAN CORPUSCULAR HGB CONC 35.3 g/dl (32-36); MEAN PLATELET VOLUME 9.7 fL (7.4-10.4); MONO % 10.9 %; NEUT % 54.5 %; PLATELET COUNT 210 K/uL (130-400); RED BLOOD COUNT 3.64 M/uL (4.2-5.4); WHITE BLOOD COUNT 6.33 K/uL (4.8-10.8)
[2017-05-08 11:25] LABS: ALT/SGPT 108 U/L (12-78); AST/SGOT 279 U/L (15-37); BLOOD UREA NITROGEN 3 mg/dl (7-18); BUN/CREATININE RATIO 5.1 (10-20); CALCIUM 9.1 mg/dl (8.5-10.1); CARBON DIOXIDE 29 mmol/L (21-32); CHLORIDE 108 mmol/L (98-107); CREATININE 0.51 mg/dl (0.60-1.20); GLUCOSE 94 mg/dl (70-99); POTASSIUM 3.6 mmol/L (3.5-5.1); SODIUM 144 mmol/L (136-145)
[2017-05-08 11:32] LABS: URINE APPEARANCE CLEAR (CLEAR); URINE BILIRUBIN NEG (NEG); URINE COLOR YELLOW; URINE EPITHELIAL CELL AUTO >30 /lpf (0-5); URINE NITRITE NEG (NEG); URINE SPECIFIC GRAVITY 1.012 (1.000-1.030); UROBILINOGEN NEG (NEG); ZZUR CULT IF INDIC CLEAN CATCH YES
[2017-05-08 11:34] LABS: MANUAL MICROSCOPIC REQUIRED? NO; REVIEW REQ? NO
[2017-05-08 11:36] LABS: ALB/GLOB RATIO 0.9 (0.9-2); ALKALINE PHOSPHATASE 177 U/L (45-117)
--- NOTE | 2017-05-08 11:54 | DIAGNOSTIC IMAGING REPORT ---
CHEST AND ABDOMEN 2 VIEWS HISTORY: Nausea. Vomiting. Dizziness. COMPARISON: Chest 03/30/2017. Abdominal ultrasound 03/30/2017. FINDINGS: The lungs are clear. The cardiomediastinal silhouette is within normal limits. There is no pneumoperitoneum or pneumatosis. The bowel gas pattern is unremarkable. No evidence for bowel obstruction. No renal calculi. Chronic right AC joint separation. Mild S-shaped scoliosis of the thoracolumbar spine. Multiple pelvic calcifications consistent with phleboliths. IMPRESSION: No acute cardiopulmonary process. No evidence for bowel obstruction. Electronically signed by: Cameron Griffin M.D. 05/08/2017 11:52 AM Dictated Date/Time: 05/08/2017 11:50 AM
[2017-05-08 12:02] LABS: BENZODIAZEPINE, URINE NEG (NEG); COCAINE,URINE NEG (NEG); PHENCYCLIDINE, URINE NEG (NEG)
[2017-05-08 12:07] LABS: PREG INTERNAL NEGATIVE QC NEG CLEAR BACKGROUND; PREG INTERNAL POSITIVE QC POS CONTROL LINE
[2017-05-08 12:21] VITALS: O2SAT 93
[2017-05-08] MEDS ORDERED: MULTI-VITAMIN INFUSION INJ 10 ML, THIAMINE HCL INJ 100 MG, FoLIC ACID INJ 1 MG in SODIU... IV ONE (13:00)
[2017-05-08] MEDS ORDERED: PANTOprazole INJ 40 MG in SYRINGE 0 ML IV ONE (18:00)
[2017-05-08] MEDS ORDERED: CHLO25CA10 PO (18:09)
[2017-05-08] MEDS ORDERED: CHLORDIAZEPOXIDE 25 MG CAP PO ONE (18:15)
--- NOTE | 2017-05-08 22:05 | EMERGENCY ROOM VISIT NOTE ---
ED Visit Note First contact with patient: 21:45 I assumed care at the change of shift. The patient was set for discharge once her alcohol was felt to have cleared. The patient had been offered inpatient alcohol rehabilitation and detox however, she has refused. Upon discharge, the patient asked to be checked for some facial swelling. She did have some subtle facial swelling on exam, no rash. No uvular edema, lungs were clear. She was in no distress. I will have the patient stop her trazodone, I will add Benadryl for the possibility of any allergic component to her presentation. She will sleep with her head elevated just in case the swelling is actually from being flat and from IV fluids. She was told to use some cool rags. If worsening, she can return. The patient was encouraged to return to this ER for any thoughts of suicide, she can return for help with her alcohol detox if she changes her mind.
[2017-05-08 22:12] VITALS: BP 115/78; PULSE 84; O2SAT 98
--- NOTE | 2017-05-10 11:32 | Pharmacy Progress Note ---
ED Pharmacist Culture FollowUp Date of Service: May 10, 2017. Patient's urine cx from 05/08 is growing > 100,000 CFU/mL e coli. The patient was not c/o urinary symptoms, had no fever or leukocytosis and UA was not suggestive of infection (no leukocytosis) and may have been contaminated (> 30 epis). This cx likely reflects asymptomatic bacteruria vs contamination and no treatment is indicated.
== END 2017-05-08 22:33 | disposition home or self-care (01) ==
LOC: C.EDB 10:00 → EEVIPCON 10:00 → C.EDA 22:33
DX: F10.280 Alcohol dependence with alcohol-induced anxiety disorder (principal); R11.2 Nausea with vomiting, unspecified; R94.5 Abnormal results of liver function studies; F17.200 Nicotine dependence, unspecified, uncomplicated; R22.0 Localized swelling, mass and lump, head; F32.9 Major depressive disorder, single episode, unspecified; Z98.818 Other dental procedure status; Z83.3 Family history of diabetes mellitus; Z79.899 Other long term (current) drug therapy

== ENCOUNTER 2023-05-05 17:01 | Inpatient (IN) ==
[2023-05-05 18:08] LABS: Basophils # (auto) 0.03 K/uL (0-0.2); Basophils % (auto) 0.7 %; Eosinophils # (auto) 0.05 K/uL (0-0.50); Eosinophils % (auto) 1.1 %; Hematocrit (blood only) 32.1 % (37.0-47.0); Hemoglobin 11.5 g/dl (12.0-16.0); Immature Granulocytes # (auto) 0.02 K/uL (0.01-0.20); Immature Granulocytes % (auto) 0.5 %; Lymphocytes # (auto) 0.43 K/uL (1.2-3.4); Lymphocytes % (auto) 9.9 %; Mean Corpuscular Hemoglobin 38.3 pg (25.0-34.0); Mean Corpuscular Hgb Conc 35.8 g/dL (32.0-36.0); Monocytes # (auto) 0.41 K/uL (0.11-0.59); Monocytes % (auto) 9.4 %; Neutrophils # (auto) 3.41 K/uL (1.40-6.50); Neutrophils % (auto) 78.4 %; Platelet Count 215 K/uL (130-400); RDW Coefficient of Variation 12.9 % (11.5-14.5); RDW Standard Deviation 50.6 fL (36.4-46.3); White Blood Count 4.35 K/ul (4.8-10.8)
[2023-05-05 18:17] LABS: Albumin Level 4.3 gm/dl (3.4-5.0); Bilirubin,Total 1.3 mg/dl (0.2-1.0); Calcium 9.3 mg/dl (8.6-10.3); Potassium 3.5 mmol/L (3.5-5.1)
[2023-05-05 18:23] LABS: Albumin Globulin Ratio 1.6 (0.9-2); BUN Creatinine Ratio 11.6 (10-20); Creatinine Clr Calc Pharmacy 93.6 ml/min; Est GFR (African American) 126.2 ml/min; Est GFR (Non-African American) 108.9 ml/min; Globulin 2.7 gm/dl (2.5-4.0)
[2023-05-05 18:29] LABS: Pregnancy Test, Serum Negative (Negative)
--- NOTE | 2023-05-05 18:42 | CT Scan Report ---
CT SCAN OF THE BRAIN WITHOUT IV CONTRAST CLINICAL HISTORY: Falls. Intoxication. Hallucinations. COMPARISON STUDY: CT of the brain dated 11/14/2015. TECHNIQUE: Unenhanced axial CT scan of the brain is performed from the vertex to the skull base. A d ose lowering technique was utilized adhering to the principles of ALARA. CT DOSE: 547.75 mGy.cm FINDINGS: Brain parenchyma: The brain parenchyma is normal in appearance. There is no hemorrhage, mass effect, or evidence of acute territorial ischemia by CT criteria. Avila-white matter differentiation is preser sujit. No extra-axial fluid collection is seen. Ventricles, sulci, cisterns: Normal in configuration. Intracranial vasculature: The visualized intracranial vasculature at the skull base is normal in appe arance. Calvarium: Unremarkable. Sinuses and mastoids: The visualized paranasal sinuses are clear. The mastoid air cells are well pneu matized. Orbits: The bony orbits are grossly intact. IMPRESSION: No acute intracranial abnormality. ACT 112: Negative or not required by law. Electronically signed by: Konrad Acosta M.D. 05/05/2023 6:41 PM
--- NOTE | 2023-05-05 19:02 | XRay Report ---
LEFT ANKLE 3 VIEWS CLINICAL HISTORY: Left ankle pain and swelling. FINDINGS: 3 views of the left ankle are obtained. No prior studies are available for comparison at th e time of dictation. The skeletal structures are well mineralized. No fracture is seen. The ankle mor tise is intact. There is no joint effusion. Soft tissue swelling is present around the ankle. IMPRESSION: Soft tissue swelling with no fracture identified. Electronically signed by: Konrad Acosta M.D. 05/05/2023 7:00 PM
--- NOTE | 2023-05-05 19:04 | XRay Report ---
LEFT FOOT 3 VIEWS CLINICAL HISTORY: Left foot injury. FINDINGS: 3 views of the left foot are compared to study dated 11/14/2015. The skeletal structures are well mineralized. No fracture is seen. The joint spaces are maintained. Soft tissue swelling is seen around the ankle and along the dorsum of the foot. IMPRESSION: No acute bony abnormality is identified. Electronically signed by: Konrad Acosta M.D. 05/05/2023 7:02 PM
[2023-05-05 20:08] LABS: Magnesium 1.4 mg/dl (1.7-2.4)
[2023-05-05] MEDS ORDERED: SODIUM CHLORIDE 0.9% 1000ML 1,000 ML IV ONE (20:19)
[2023-05-05] MEDS: MAGNESIUM SULFATE / D5W 1 GM/100 ML BAG IV SCH ×2 (20:29→21:37)
--- NOTE | 2023-05-05 22:04 | Emergency Department Note ---
Impression & Plan Weakness, Hypomagnesemia, Hallucinations, Alcohol abuse ED Provider Note ED Provider Note NAME: ADIA NAVARRO AGE:42 SEX: Female : 1980 ARRIVES VIA: Private vehicle INFORMANT: Patient, mother ED PROVIDER(s): Jaqui Viveros DO CHIEF COMPLAINT: Hallucinations, generalized weakness, alcohol abuse HPI: This is a 42-year-old female with a history of alcohol abuse who presents the emergency department due to concern after mom witnessed her actively hallucinating. Patient's last drink was 2 days ago. She had had vomiting and a headache and was seen by her PCP at that time. Patient denies any prior history of withdrawal related seizures or DTs. Patient has previously been to rehab. On arrival here patient again had hallucinations but was oriented by the time of my evaluation, answering questions appropriately. She states she had pain at her left foot/ankle which was injured in a fall at home recently. She denies any head trauma. She denied any fevers or chills. Denied any active abdominal pain, nausea or vomiting. PAST MEDICAL HISTORY:See Below PAST SURGICAL HISTORY:See Below FAMILY HISTORY:See Below SOCIAL HISTORY:See Below HOME MEDICATIONS:See Below ALLERGIES:See Below VITALS:See Below PHYSICAL EXAMINATION: GENERAL: alert, well appearing, well nourished, no distress, non-toxic EYE EXAM: normal conjunctiva, PERRL and EOM's grossly intact OROPHARYNX: no exudate, no erythema, lips, buccal mucosa, and tongue normal and mucous membranes are moist NECK: supple, no nuchal rigidity, no adenopathy, non-tender LUNGS: Clear to auscultation. Normal chest wall mechanics, no w/r/r HEART: no murmurs, S1 normal and S2 normal ABDOMEN: abdomen soft, non-tender, normo-active bowel sounds, no masses, no rebound or guarding. BACK: Back is symmetrical on inspection and there is no deformity, no midline tenderness, no CVA tenderness. SKIN: no rashes, petechiae, orbruising UPPER EXTREMITIES: upper extremities are grossly normal. FROM, nml pulses b/l. LOWER EXTREMITIES: No pitting edema. FROM RLE, decreased range of motion at the left foot and ankle secondary to ecchymosis and edema from recent trauma, nml pulses b/l. NEURO EXAM: Normal sensorium, cranial nerves II-XII grossly intact, normal speech, no facial droop,nogross weakness of arms, no gross weakness of legs. Gross sensation intact. No ataxia. Vital Signs: reviewed and remarkable Differential Diagnosis: alcohol intoxication, toxicologic, infection, hypoglycemia, electrolyte abnormalities, CVA, ICH, dysrhythmia, alcohol withdrawal, substance abuse, as well as others were entertained. MEDICAL DECISION MAKING: This is a 42-year-old female with a history of alcohol abuse who presents after mother found her having active hallucinations at home. Patient last drink 2 days ago per her report. Patient was afebrile and vital signs stable. Labs drawn and sent, IV established, EKG performed interpreted by me at bedside and patient monitored on telemetry. She was sent for x-ray and CT imaging. X-rays interpreted by me at bedside additionally. No obvious fracture to the left ankle which had recently sustained trauma. No evidence of traumatic injury. Patient given IV fluids and her hypomagnesemia was repleted. She was monitored for several hours and had no tachycardia, hypertension, or tremors however patient was having persistent hallucinations. We discussed all results at bedside with her and mother who was also present. Due to history of alcohol abuse and current hallucinations which may still be a manifestation of her withdrawal, we discussed additional inpatient evaluation and monitoring. Patient and mother were in agreement with this plan. Case discussed with the hospitalist for additional evaluation and management. Consultation(s): 2317: Discussed with Dr. Dodge for admission. ER Treatment Provided: See below 2101: Patient found to be hypomagnesemic, magnesium repletion started. Patient is receiving additional IV fluids. Patient was noted to be significantly weak and off balance with ambulatory trial to the bathroom. 2301: Patient reported feeling improved following additional fluids and magnesium repletion, did have improved gait, although is still intermittently hallucinating. Diagnostics Interpreted By Me: -ECG: Sinus tachycardia at 108, normal axis, normal intervals, no acute ST/T w ave changes -Cardiac Monitoring: An order was placed for continuous cardiac monitoring. The monitor shows a rate of 78 with normal sinus rhythm. -Laboratory studies: As stated above and show below. -Imaging studies: xray Left foot: No obvious fracture or dislocation X-ray left ankle: No obvious fracture or dislocation Triage Nursing Note Reviewed Prior/Outside Records Reviewed Past Med/Surg History Medical History (Updated 05/05/23 @ 22:04 by Jaqui Viveros DO) Abnormal uterine bleeding ADD (attention deficit disorder) Alcohol dependence Anxiety Anxiety and depression Depression Fatty liver Insomnia Restless leg Surgical History (Updated 02/26/21 @ 13:16 by Kitty Castañeda MD) H/O wisdom tooth extraction S/P nasal surgery septoplasty and rhinoplasty-both w/Dr. Castañeda Family History (Updated 02/26/21 @ 10:01 by [employer]) Aunt Breast cancer, Onset Age: 65 paternal Asthma maternal Grandfather (Paternal) Prostate cancer Aunt Allergies maternal Family/Other Allergies cousins Asthma cousins Other No family history of adverse response to anesthesia No family history of bleeding disorder Denies family history of Ovarian cancer Colorectal cancer Social History (Updated 02/26/21 @ 10:02 by Lyn Cowart) Smoking Status: Current every day smoker Tobacco Type: E-cigarettes / Vaping Age Started Using Tobacco: 20; packs per day: 0.5; Second Hand Exposure: No; Do You Dip or Chew Tobacco: No; Hx Alcohol Use: No Hx Substance Use: No Preferred Language: Puerto Rican 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 Ability: Effective Integrity Consultant Required: No Beliefs That Will Affect Care: None marital status: Single Current Living Situation: Alone Feels Safe at Home: Yes Assistive Devices: Glasses Allergies Allergies Allergy/AdvReac Type Severity Reaction Status Date / Time No Known Drug Allergies Allergy Verified 02/26/21 09:56 Home Meds Home Medications Medication Instructions Recorded Confirmed drospirenone 3 mg-ethinyl 1 tab PO DAILY 05/05/23 05/05/23 estradiol 0.02 mg tablet (Vestura (28)) naltrexone 50 mg tablet 50 mg PO DAILY 05/05/23 05/05/23 ondansetron HCl 4 mg tablet 4 mg PO Q6 PRN Nausea 05/05/23 05/05/23 Results & Data (ED) Vital Signs Vital Signs - 24 hr 05/05/23 17:04 05/05/23 18:43 05/05/23 18:44 Temperature 36.9 C Temperature Source Temporal Artery Scan Pulse Rate 136 H 91 H Pulse Rate [Apical] 87 Pulse Rate from SpO2 Sensor Respiratory Rate 20 20 Blood Pressure 100/67 Blood Pressure [Right Arm] 119/90 Blood Pressure Mean 78 Blood Pressure Mean [Right Arm] 99 Pulse Oximetry 99 100 Oxygen Delivery Method Room Air Room Air Sepsis Recent Fever Within 48 Hours No Sepsis New/Unexplained Change in Mental Status N/A Sepsis Action Taken by Nursing No Action Required 05/05/23 18:42 05/05/23 18:54 05/05/23 18:54 Temperature Temperature Source Pulse Rate 92 H 87 Pulse Rate [Apical] Pulse Rate from SpO2 Sensor 92 H 87 Respiratory Rate 20 20 Blood Pressure 121/91 Blood Pressure [Right Arm] Blood Pressure Mean 99 Blood Pressure Mean [Right Arm] Pulse Oximetry 100 100 Oxygen Delivery Method Sepsis Recent Fever Within 48 Hours Sepsis New/Unexplained Change in Mental Status Sepsis Action Taken by Nursing 05/05/23 19:00 05/05/23 19:00 05/05/23 19:30 Temperature Temperature Source Pulse Rate 90 Pulse Rate [Apical] Pulse Rate from SpO2 Sensor 87 Respiratory Rate 18 Blood Pressure 116/90 126/91 Blood Pressure [Right Arm] Blood Pressure Mean 104 99 Blood Pressure Mean [Right Arm] Pulse Oximetry 99 Oxygen Delivery Method Sepsis Recent Fever Within 48 Hours Sepsis New/Unexplained Change in Mental Status Sepsis Action Taken by Nursing 05/05/23 19:30 05/05/23 20:00 05/05/23 20:00 Temperature Temperature Source Pulse Rate 85 80 Pulse Rate [Apical] Pulse Rate from SpO2 Sensor 85 82 Respiratory Rate 16 17 Blood Pressure 125/89 Blood Pressure [Right Arm] Blood Pressure Mean 104 Blood Pressure Mean [Right Arm] Pulse Oximetry 99 99 Oxygen Delivery Method Sepsis Recent Fever Within 48 Hours Sepsis New/Unexplained Change in Mental Status Sepsis Action Taken by Nursing 05/05/23 20:30 05/05/23 20:30 05/05/23 21:00 Temperature Temperature Source Pulse Rate 78 Pulse Rate [Apical] Pulse Rate from SpO2 Sensor 79 Respiratory Rate 18 Blood Pressure 122/88 113/82 Blood Pressure [Right Arm] Blood Pressure Mean 99 93 Blood Pressure Mean [Right Arm] Pulse Oximetry 100 Oxygen Delivery Method Sepsis Recent Fever Within 48 Hours Sepsis New/Unexplained Change in Mental Status Sepsis Action Taken by Nursing 05/05/23 21:00 05/05/23 21:30 05/05/23 21:30 Temperature Temperature Source Pulse Rate 77 78 Pulse Rate [Apical] Pulse Rate from SpO2 Sensor 77 79 Respiratory Rate 16 17 Blood Pressure 102/73 Blood Pressure [Right Arm] Blood Pressure Mean 92 Blood Pressure Mean [Right Arm] Pulse Oximetry 99 100 Oxygen Delivery Method Sepsis Recent Fever Within 48 Hours Sepsis New/Unexplained Change in Mental Status Sepsis Action Taken by Nursing 05/05/23 22:00 05/05/23 22:00 05/05/23 22:30 Temperature Temperature Source Pulse Rate 79 Pulse Rate [Apical] Pulse Rate from SpO2 Sensor 78 Respiratory Rate 19 Blood Pressure 123/86 121/83 Blood Pressure [Right Arm] Blood Pressure Mean 111 92 Blood Pressure Mean [Right Arm] Pulse Oximetry 99 Oxygen Delivery Method Sepsis Recent Fever Within 48 Hours Sepsis New/Unexplained Change in Mental Status Sepsis Action Taken by Nursing 05/05/23 22:30 05/05/23 22:30 05/05/23 23:57 Temperature Temperature Source Pulse Rate 80 Pulse Rate [Apical] 90 Pulse Rate from SpO2 Sensor 76 Respiratory Rate 20 18 Blood Pressure 121/83 Blood Pressure [Right Arm] 121/87 Blood Pressure Mean 92 Blood Pressure Mean [Right Arm] 98 Pulse Oximetry 93 100 Oxygen Delivery Method Room Air Sepsis Recent Fever Within 48 Hours Sepsis New/Unexplained Change in Mental Status Sepsis Action Taken by Nursing Laboratory Data 05/05/23 17:30 05/05/23 17:30 Lab Results 05/05/23 05/05/23 05/05/23 Range/Units 17:30 17:30 17:30 WBC 4.35 L (4.8-10.8) K/ul RBC 3.00 L (4.20-5.40) M/uL Hgb 11.5 L (12.0-16.0) g/dl Hct 32.1 L (37.0-47.0) % MCV 107.0 H (80.0-100.0) fL MCH 38.3 H (25.0-34.0) pg MCHC 35.8 (32.0-36.0) g/dL RDW Std Deviation 50.6 H (36.4-46.3) fL RDW Coeff of Edgar 12.9 (11.5-14.5) % Plt Count 215 (130-400) K/uL MPV 10.0 (9.4-12.4) fL Immature Gran % (Auto) 0.5 % Neut % (Auto) 78.4 % Lymph % (Auto) 9.9 % Sibley % (Auto) 9.4 % Eos % (Auto) 1.1 % Baso % (Auto) 0.7 % Neut # (Auto) 3.41 (1.40-6.50) K/uL Lymph # (Auto) 0.43 L (1.2-3.4) K/uL Sibley # (Auto) 0.41 (0.11-0.59) K/uL Eos # (Auto) 0.05 (0-0.50) K/uL Baso # (Auto) 0.03 (0-0.2) K/uL Immature Gran # (Auto) 0.02 (0.01-0.20) K/uL Sodium 137 (136-145) mmol/L Potassium 3.5 (3.5-5.1) mmol/L Chloride 104 (98-107) mmol/L Carbon Dioxide 22 (21-32) mmol/L Anion Gap 11 (3-11) BUN 8 (6-23) mg/dl Creatinine 0.69 (0.6-1.2) mg/dl Est Cr Clr Drug Dosing 93.6 ml/min Est GFR ( Amer) 126.2 ml/min Est GFR (Non-Af Amer) 108.9 ml/min BUN/Creatinine Ratio 11.6 (10-20) Glucose 120 H (70-99(Fasting)) mg/dl Calcium 9.3 (8.6-10.3) mg/dl Magnesium 1.4 L (1.7-2.4) mg/dl Total Bilirubin 1.3 H (0.2-1.0) mg/dl AST 73 H (13-39) U/L ALT 49 (7-52) U/L Alkaline Phosphatase 76 (34-104) U/L Total Protein 7.0 (6.0-8.3) gm/dl Albumin 4.3 (3.4-5.0) gm/dl Globulin 2.7 (2.5-4.0) gm/dl Albumin/Globulin Ratio 1.6 (0.9-2) Lipase 21 (11-82) U/L HCG, Qual (Negative) Urine Color Urine Appearance (Clear) Urine pH (4.5-7.5) Ur Specific Chelsea (1.000-1.030) Urine Protein (Negative) Urine Glucose (UA) (Negative) Urine Ketones (Negative) Urine Blood (Negative) Urine Nitrite (Negative) Urine Bilirubin (Negative) Urine Urobilinogen (Negative) Ur Leukocyte Esterase (Negative) Urine Opiates Screen (Neg) Ur Methadone, Qual (Neg) Urine Barbiturates (Neg) Ur Phencyclidine (PCP) (Neg) U Amphetamin/Meth Scrn (Neg) MDMA (Ecstasy) Screen (Neg) U Benzodiazepines Scrn (Neg) Ur Cocaine Metabolite (Neg) U Marijuana (THC) Screen (Neg) Ethyl Alcohol mg/dL < 10.0 (<10.0) mg/dl 05/05/23 05/05/23 05/05/23 Range/Units 17:30 20:10 20:10 WBC (4.8-10.8) K/ul RBC (4.20-5.40) M/uL Hgb (12.0-16.0) g/dl Hct (37.0-47.0) % MCV (80.0-100.0) fL MCH (25.0-34.0) pg MCHC (32.0-36.0) g/dL RDW Std Deviation (36.4-46.3) fL RDW Coeff of Edgar (11.5-14.5) % Plt Count (130-400) K/uL MPV (9.4-12.4) fL Immature Gran % (Auto) % Neut % (Auto) % Lymph % (Auto) % Sibley % (Auto) % Eos % (Auto) % Baso % (Auto) % Neut # (Auto) (1.40-6.50) K/uL Lymph # (Auto) (1.2-3.4) K/uL Sibley # (Auto) (0.11-0.59) K/uL Eos # (Auto) (0-0.50) K/uL Baso # (Auto) (0-0.2) K/uL Immature Gran # (Auto) (0.01-0.20) K/uL Sodium (136-145) mmol/L Potassium (3.5-5.1) mmol/L Chloride (98-107) mmol/L Carbon Dioxide (21-32) mmol/L Anion Gap (3-11) BUN (6-23) mg/dl Creatinine (0.6-1.2) mg/dl Est Cr Clr Drug Dosing ml/min Est GFR ( Amer) ml/min Est GFR (Non-Af Amer) ml/min BUN/Creatinine Ratio (10-20) Glucose (70-99(Fasting)) mg/dl Calcium (8.6-10.3) mg/dl Magnesium (1.7-2.4) mg/dl Total Bilirubin (0.2-1.0) mg/dl AST (13-39) U/L ALT (7-52) U/L Alkaline Phosphatase (34-104) U/L Total Protein (6.0-8.3) gm/dl Albumin (3.4-5.0) gm/dl Globulin (2.5-4.0) gm/dl Albumin/Globulin Ratio (0.9-2) Lipase (11-82) U/L HCG, Qual Negative (Negative) Urine Color Yellow Urine Appearance Clear (Clear) Urine pH 6.5 (4.5-7.5) Ur Specific Chelsea 1.007 (1.000-1.030) Urine Protein Negative (Negative) Urine Glucose (UA) Negative (Negative) Urine Ketones Trace H (Negative) Urine Blood Negative (Negative) Urine Nitrite Negative (Negative) Urine Bilirubin Negative (Negative) Urine Urobilinogen Negative (Negative) Ur Leukocyte Esterase Negative (Negative) Urine Opiates Screen Neg (Neg) Ur Methadone, Qual Neg (Neg) Urine Barbiturates Neg (Neg) Ur Phencyclidine (PCP) Neg (Neg) U Amphetamin/Meth Scrn Neg (Neg) MDMA (Ecstasy) Screen Neg (Neg) U Benzodiazepines Scrn Neg (Neg) Ur Cocaine Metabolite Neg (Neg) U Marijuana (THC) Screen Neg (Neg) Ethyl Alcohol mg/dL (<10.0) mg/dl Administered Medications Discontinued Medications Gabapentin (Gabapentin 600 Mg Tab) 1,200 mg PO NOW STA Stop: 05/05/23 23:34 Last Admin: 05/05/23 23:54 Dose: 1,200 mg Documented By: AVINASH Magnesium Sulfate/Dextrose (Magnesium Sulfate / D5w) 1 gm in 100 mls @ 100 mls/hr IV Q1H TIN Stop: 05/05/23 22:18 Last Infusion: 05/05/23 22:46 Dose: 0 mls/hr Documented By: Admin: 05/05/23 21:37 Dose: 100 mls/hr Documented By: Infusion: 05/05/23 21:37 Dose: 0 mls/hr Documented By: Admin: 05/05/23 20:29 Dose: 100 mls/hr Documented By: LUDA Sodium Chloride (Nss 1000ml) 1,000 mls @ 999 mls/hr IV .Q1H1M ONE Stop: 05/05/23 21:19 Last Infusion: 05/05/23 21:37 Dose: 0 mls/hr Documented By: Admin: 05/05/23 20:29 Dose: 999 mls/hr Documented By: LUDA Imaging Data Radiologist's Impression: Ankle X-Ray 05/05/23 17:10 LEFT ANKLE 3 VIEWS CLINICAL HISTORY: Left ankle pain and swelling. FINDINGS: 3 views of the left ankle are obtained. No prior studies are available for comparison at the time of dictation. The skeletal structures are well mineralized. No fracture is seen. The ankle mortise is intact. There is no joint effusion. Soft tissue swelling is present around the ankle. IMPRESSION: Soft tissue swelling with no fracture identified. Electronically signed by: Konrad Acosta M.D. 05/05/2023 7:00 PM Foot X-Ray 05/05/23 17:10 LEFT FOOT 3 VIEWS CLINICAL HISTORY: Left foot injury. FINDINGS: 3 views of the left foot are compared to study dated 11/14/2015. The skeletal structures are well mineralized. No fracture is seen. The joint spaces are maintained. Soft tissue swelling is seen around the ankle and along the dorsum of the foot. IMPRESSION: No acute bony abnormality is identified. Electronically signed by: Konrad Acosta M.D. 05/05/2023 7:[address] 05/05/23 17:10 CT SCAN OF THE BRAIN WITHOUT IV CONTRAST CLINICAL HISTORY: Falls. Intoxication. Hallucinations. COMPARISON STUDY: CT of the brain dated 11/14/2015. TECHNIQUE: Unenhanced axial CT scan of the brain is performed from the vertex to the skull base. A dose lowering technique was utilized adhering to the principles of ALARA. CT DOSE: 547.75 mGy.cm FINDINGS: Brain parenchyma: The brain parenchyma is normal in appearance. There is no hemorrhage, mass effect, or evidence of acute territorial ischemia by CT criteria. Avila-white matter differentiation is preserved. No extra-axial fluid collection is seen. Ventricles, sulci, cisterns: Normal in configuration. Intracranial vasculature: The visualized intracranial vasculature at the skull base is normal in appearance. Calvarium: Unremarkable. Sinuses and mastoids: The visualized paranasal sinuses are clear. The mastoid air cells are well pneumatized. Orbits: The bony orbits are grossly intact. IMPRESSION: No acute intracranial abnormality. ACT 112: Negative or not required by law. Electronically signed by: Konrad Acosta M.D. 05/05/2023 6:41 PM Discharge Plan Visit Data Chief Complaint: Alcohol Intoxication Stated Complaint: RELAPSED AFTER 6 YRS, HALUCINATING, HGH PULSE ED Provider: Jaqui Viveros Discharge Problem: Weakness, Hypomagnesemia, Hallucinations, Alcohol abuse Discharge Instructions Interventions: ED Discharge Assessment Last Done: 05/06/23 01:16
[2023-05-05 22:05] LABS: Appearance Urine Clear (Clear); Bilirubin Urine Negative (Negative); Blood Urine Negative (Negative); Color Urine Yellow; Glucose Urine UA Negative (Negative); Ketones Urine Trace (Negative); Leukocyte Esterase Urine Negative (Negative); Nitrite Urine Negative (Negative); Protein Urine Negative (Negative); Specific Gravity Urine 1.007 (1.000-1.030); Urobilinogen Urine Negative (Negative); pH Urine 6.5 (4.5-7.5)
[2023-05-05 22:32] LABS: Amphetamines+Metham, Urine Neg (Neg); Barbiturates, Urine Neg (Neg); Benzodiazepine, Urine Neg (Neg); Cocaine, Urine Neg (Neg); MDMA (Ecstacy), Urine Neg (Neg); Methadone, Urine Neg (Neg); Opiate, Urine Neg (Neg); Phencyclidine, Urine Neg (Neg)
[2023-05-05] MEDS ORDERED: GABAPENTIN 600 MG TAB PO STA (23:33)
--- NOTE | 2023-05-06 01:00 | History & Physical Report ---
Date of Service May 06, 2023 Assessment & Plan (1) Alcohol withdrawal: Plan: Alcoholic hepatitis, history of alcoholic fatty liver as per records New onset anemia, FOBT done at the ER was negative anxiety/mood disorder, patient admits to depression, not currently on maintenance medications Hyperglycemia rule out DM ongoing vape use Medical telemetry MELODIE S, DT precautions Follow LFTs, GI consult if with progression Anemia workup, transfuse PRBC if hemoglobin less than 7 and or for symptomatic anemia Check hemoglobin A1c DVT prophylaxis. Lovenox subcu Full code Patient mother requesting updates from providers. Ms. Jessenia Bauer, contact #[phone]. Text document was generated using [employer] voice recognition software. It may contain grammatical or spelling errors. Kindly contact undersigned for clarification of any documentation item in question. History of Present Illness Chief Complaint: Weakness, alcohol withdrawal Primary Care Provider: Aj Gaston MD History obtained from patient, family, and records. Patient is a fair historian. Medical history significant for anxiety/mood disorder, fatty liver as per records, alcohol abuse, ongoing vape use. Last confinement March 2017 for alcohol withdrawal. Patient started drinking again last June 2022 following a miscarriage. Admits to depression but denies suicidality. 2 weeks ago, patient had headache symptoms. Noted to be shaky by mother. Patient seen at PCPs office. Concern for migraine headache and alcohol withdrawal. ER evaluation recommended but patient declined. Outpatient LFTs and ammonia level elevated. PCP prescribed naltrexone for alcohol withdrawal but later elevated due to abnormal LFTs. Patient not eating well at home. Last drink was 3 days ago. Patient noted to be confused and with visual hallucinations as per mother. Seeing people and objects. Patient denies abdominal pain, black/bloody stools, hematemesis/coffee-ground emesis. Patient brought to the ER for evaluation. Medical History as above Surgical History : Hand surgery, dental surgery Family History : Alcoholism, A-fib, dementia Personal/Social history : Ongoing vape use, alcohol abuse, currently unemployed Allergies Allergy/AdvReac Type Severity Reaction Status Date / Time No Known Drug Allergies Allergy Verified 02/26/21 09:56 Home Medications Medication Instructions Recorded Confirmed Type drospirenone 3 mg-ethinyl 1 tab PO DAILY 05/05/23 05/05/23 History estradiol 0.02 mg tablet (Vestura (28)) ondansetron HCl 4 mg tablet 4 mg PO Q6 PRN Nausea 05/05/23 05/05/23 History Past Med/Surg History Medical History (Updated 05/06/23 @ 09:33 by Jimi Zavala MD) Abnormal uterine bleeding ADD (attention deficit disorder) Alcohol dependence Anxiety Anxiety and depression Depression Fatty liver Insomnia Restless leg Surgical History (Updated 02/26/21 @ 13:16 by Kitty Castañeda MD) H/O wisdom tooth extraction S/P nasal surgery septoplasty and rhinoplasty-both w/Dr. Castañeda Family History (Updated 02/26/21 @ 10:01 by Lyn VIAP) Aunt Breast cancer, Onset Age: 65 paternal Asthma maternal Grandfather (Paternal) Prostate cancer Aunt Allergies maternal Family/Other Allergies cousins Asthma cousins Other No family history of adverse response to anesthesia No family history of bleeding disorder Denies family history of Ovarian cancer Colorectal cancer Social History (Updated 02/26/21 @ 10:02 by Lyn Cowart) Smoking Status: Current every day smoker Tobacco Type: E-cigarettes / Vaping Age Started Using Tobacco: 20; packs per day: 0.5; Second Hand Exposure: No; Do You Dip or Chew Tobacco: No; Hx Alcohol Use: No Hx Substance Use: No Preferred Language: Tajik 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 Ability: Effective Machine Stuffer Required: No Beliefs That Will Affect Care: None marital status: Single Current Living Situation: Alone Feels Safe at Home: Yes Assistive Devices: Glasses Review of Systems Review of Systems: As per HPI, all other systems reviewed and negative Physical Exam Physical Exam: GENERAL: Slightly anxious, tremulous, no respiratory distress SKIN: Pallor, warm HEENT: Pale palpebral conjunctivae, no ptosis, dry buccal mucosa NECK : Supple, no tenderness CHEST : CTA, no tenderness HEART : RRR, no obvious murmurs ABDOMEN: Some distention, nontender RECTAL : Intact sphincter, brown stool (FOBT negative) EXTREMITIES : No LE swelling/tenderness, no other conspicuous deformities noted NEUROLOGIC : Coherent, no facial asymmetry, tremulous, gait and stance not assessed Results & Data Results & Data Vital Signs (Past 12 Hours) Vital Signs Temp Pulse Pulse Resp BP BP Pulse Ox 05/05/23 23:57 90 18 121/87 100 05/05/23 22:30 80 20 93 05/05/23 22:30 121/83 08/09/23 22:30 121/83 05/05/23 22:00 79 19 99 05/05/23 22:00 123/86 05/05/23 21:30 78 17 100 05/05/23 21:30 102/73 05/05/23 21:00 77 16 99 05/05/23 21:00 113/82 05/05/23 20:30 78 18 100 05/05/23 20:30 122/88 05/05/23 20:00 80 17 99 05/05/23 20:00 125/89 05/05/23 19:30 85 16 99 05/05/23 19:30 126/91 05/05/23 19:00 90 18 99 05/05/23 19:00 116/90 05/05/23 18:54 87 20 100 05/05/23 18:54 121/91 05/05/23 18:42 92 H 20 100 05/05/23 18:44 87 20 119/90 100 05/05/23 18:43 91 H 05/05/23 17:04 36.9 C 136 H 20 100/67 99 O2 Del Method 05/05/23 23:57 Room Air 05/05/23 22:30 05/05/23 22:30 05/05/23 22:30 05/05/23 22:00 05/05/23 22:00 05/05/23 21:30 05/05/23 21:30 05/05/23 21:00 05/05/23 21:00 05/05/23 20:30 05/05/23 20:30 05/05/23 20:00 05/05/23 20:00 05/05/23 19:30 05/05/23 19:30 05/05/23 19:00 05/05/23 19:00 05/05/23 18:54 05/05/23 18:54 05/05/23 18:42 05/05/23 18:44 Room Air 05/05/23 18:43 05/05/23 17:04 Room Air Laboratory Results Laboratory Results WBC 4.35 K/ul (4.8-10.8) L 05/05/23 17:30 RBC 3.00 M/uL (4.20-5.40) L 05/05/23 17:30 Hgb 11.5 g/dl (12.0-16.0) L 05/05/23 17:30 Hct 32.1 % (37.0-47.0) L 05/05/23 17: MCV 107.0 fL (80.0-100.0) H 05/05/23 17:30 MCH 38.3 pg (25.0-34.0) H 05/05/23 17: MCHC 35.8 g/dL (32.0-36.0) 05/05/23 17: RDW Std Deviation 50.6 fL (36.4-46.3) H 05/05/23 17: RDW Coeff of Edgar 12.9 % (11.5-14.5) 05/05/23: Plt Count 215 K/uL (130-400) 05/05/23 17: MPV 10.0 fL (9.4-12.4) 05/05/23 17: Immature Gran % (Auto) 0.5 % 05/05/23 17: Neut % (Auto) 78.4 % 05/05/23 17:30 Lymph % (Auto) 9.9 % 05/05/23 17:30 [place] % (Auto) 9.4 % 05/05/23 17:30 Eos % (Auto) 1.1 % 05/05/23 17: Baso % (Auto) 0.7 % 05/05/23 17:30 Neut # (Auto) 3.41 K/uL (1.40-6.50) 05/05/23 17: Lymph # (Auto) 0.43 K/uL (1.2-3.4) L 05/05/23 17:30 [place] # (Auto) 0.41 K/uL (0.11-0.59) 05/05/23 17: Eos # (Auto) 0.05 K/uL (0-0.50) 05/05/23 17: Baso # (Auto) 0.03 K/uL (0-0.2) 05/05/23 17: Immature Gran # (Auto) 0.02 K/uL (0.01-0.20) 05/05/23 17:30 Sodium 137 mmol/L (136-145) 05/05/23 17:30 Potassium 3.5 mmol/L (3.5-5.1) 05/05/23 17:30 Chloride 104 mmol/L (98-107) 05/05/23 17:30 Carbon Dioxide 22 mmol/L (21-32) 05/05/23 17:30 Anion Gap 11 (3-11) 05/05/23 17:30 BUN 8 mg/dl (6-23) 05/05/23 17:30 Creatinine 0.69 mg/dl (0.6-1.2) 05/05/23 17:30 Est Cr Clr Drug Dosing 93.6 ml/min 05/05/23 17:30 Est GFR ( Amer) 126.2 ml/min 05/05/23 17:30 Est GFR (Non-Af Amer) 108.9 ml/min 05/05/23 17:30 BUN/Creatinine Ratio 11.6 (10-20) 05/05/23 17:30 Glucose 120 mg/dl (70-99(Fasting)) H 05/05/23 17:30 Calcium 9.3 mg/dl (8.6-10.3) 05/05/23 17:30 Magnesium 1.4 mg/dl (1.7-2.4) L 05/05/23 17:30 Total Bilirubin 1.3 mg/dl (0.2-1.0) H 05/05/23 17:30 AST 73 U/L (13-39) H 05/05/23 17:30 ALT 49 U/L (7-52) 05/05/23 17:30 Alkaline Phosphatase 76 U/L (34-104) 05/05/23 17:30 Total Protein 7.0 gm/dl (6.0-8.3) 05/05/23 17:30 Albumin 4.3 gm/dl (3.4-5.0) 05/05/23 17:30 Globulin 2.7 gm/dl (2.5-4.0) 05/05/23 17:30 Albumin/Globulin Ratio 1.6 (0.9-2) 05/05/23 17:30 Lipase 21 U/L (11-82) 05/05/23 17:30 HCG, Qual Negative (Negative) 05/05/23 17:30 Urine Color Yellow 05/05/23 20:10 Urine Appearance Clear (Clear) 05/05/23 20:10 Urine pH 6.5 (4.5-7.5) 05/05/23 20:10 Ur Specific [place] 1.007 (1.000-1.030) 05/05/23 20:10 Urine Protein Negative (Negative) 05/05/23 20:10 Urine Glucose (UA) Negative (Negative) 05/05/23 20:10 Urine Ketones Trace (Negative) H 05/05/23 20:10 Urine Blood Negative (Negative) 05/05/23 20:10 Urine Nitrite Negative (Negative) 05/05/23 20:10 Urine Bilirubin Negative (Negative) 05/05/23 20:10 Urine Urobilinogen Negative (Negative) 05/05/23 20:10 Ur Leukocyte Esterase Negative (Negative) 05/05/23 20:10 Urine Opiates Screen Neg (Neg) 05/05/23 20:10 Ur Methadone, Qual Neg (Neg) 05/05/23 20:10 Urine Barbiturates Neg (Neg) 05/05/23 20:10 Ur Phencyclidine (PCP) Neg (Neg) 05/05/23 20:10 U Amphetamin/Meth Scrn Neg (Neg) 05/05/23 20:10 MDMA (Ecstasy) Screen Neg (Neg) 05/05/23 20:10 U Benzodiazepines Scrn Neg (Neg) 05/05/23 20:10 Ur Cocaine Metabolite Neg (Neg) 05/05/23 20:10 U Marijuana (THC) Screen Neg (Neg) 05/05/23 20:10 Ethyl Alcohol mg/dL < 10.0 mg/dl (<10.0) 05/05/23 17:30 Impressions Ankle X-Ray 05/05/23 17:10 LEFT ANKLE 3 VIEWS CLINICAL HISTORY: Left ankle pain and swelling. FINDINGS: 3 views of the left ankle are obtained. No prior studies are available for comparison at the time of dictation. The skeletal structures are well mineralized. No fracture is seen. The ankle mortise is intact. There is no joint effusion. Soft tissue swelling is present around the ankle. IMPRESSION: Soft tissue swelling with no fracture identified. Electronically signed by: Konrad Acosta M.D. 05/05/2023 7:00 PM Foot X-Ray 05/05/23 17:10 LEFT FOOT 3 VIEWS CLINICAL HISTORY: Left foot injury. FINDINGS: 3 views of the left foot are compared to study dated 11/14/2015. The skeletal structures are well mineralized. No fracture is seen. The joint spaces are maintained. Soft tissue swelling is seen around the ankle and along the dorsum of the foot. IMPRESSION: No acute bony abnormality is identified. Electronically signed by: Konrad Acosta M.D. 05/05/2023 7:[address] 05/05/23 17:10 CT SCAN OF THE BRAIN WITHOUT IV CONTRAST CLINICAL HISTORY: Falls. Intoxication. Hallucinations. COMPARISON STUDY: CT of the brain dated 11/14/2015. TECHNIQUE: Unenhanced axial CT scan of the brain is performed from the vertex to the skull base. A dose lowering technique was utilized adhering to the principles of ALARA. CT DOSE: 547.75 mGy.cm FINDINGS: Brain parenchyma: The brain parenchyma is normal in appearance. There is no hemorrhage, mass effect, or evidence of acute territorial ischemia by CT criteria. Avila-white matter differentiation is preserved. No extra-axial fluid collection is seen. Ventricles, sulci, cisterns: Normal in configuration. Intracranial vasculature: The visualized intracranial vasculature at the skull base is normal in appearance. Calvarium: Unremarkable. Sinuses and mastoids: The visualized paranasal sinuses are clear. The mastoid air cells are well pneumatized. Orbits: The bony orbits are grossly intact. IMPRESSION: No acute intracranial abnormality. ACT 112: Negative or not required by law. Electronically signed by: Konrad Acosta M.D. 05/05/2023 6:41 PM Diagnostic Findings EKG as per my interpretation : Rate 110, sinus tachycardia, normal axis, nonspecific T wave abnormalities
[2023-05-06] MEDS ORDERED: PROMETHAZINE HCL 6.25 MG in SODIUM CHLORIDE 0.9% 50 ML IV PRN (01:04)
[2023-05-06] MEDS ORDERED: LORazepam 2 MG/1 ML VIAL IV PRN ×2 (01:04)
[2023-05-06] MEDS ORDERED: Ativan IV Alcohol Withdrawal--Active Protocol IV PRN (01:04)
[2023-05-06] MEDS ORDERED: GABAPENTIN 1200MG ALCOHOL WITHDRAWAL LOAD PO STA (01:04)
[2023-05-06] MEDS ORDERED: LACTATED RINGER'S 1,000 ML IV ONE (01:08)
[2023-05-06] MEDS: LORazepam 2 MG/1 ML VIAL IV PRN ×3 (03:54→21:46)
[2023-05-06 04:29] LABS: Basophils # (auto) 0.03 K/uL (0-0.2); Basophils % (auto) 0.8 %; Eosinophils # (auto) 0.16 K/uL (0-0.50); Eosinophils % (auto) 4.4 %; Hematocrit (blood only) 30.3 % (37.0-47.0); Hemoglobin 10.4 g/dl (12.0-16.0); Immature Granulocytes # (auto) 0.02 K/uL (0.01-0.20); Immature Granulocytes % (auto) 0.5 %; Lymphocytes # (auto) 1.13 K/uL (1.2-3.4); Mean Corpuscular Hemoglobin 37.8 pg (25.0-34.0); Mean Corpuscular Hgb Conc 34.3 g/dL (32.0-36.0); Mean Corpuscular Volume 110.2 fL (80.0-100.0); Mean Platelet Volume 10.1 fL (9.4-12.4); Monocytes # (auto) 0.29 K/uL (0.11-0.59); Neutrophils # (auto) 2.01 K/uL (1.40-6.50); Neutrophils % (auto) 55.3 %; Platelet Count 198 K/uL (130-400); RDW Coefficient of Variation 13.1 % (11.5-14.5); RDW Standard Deviation 51.8 fL (36.4-46.3); Red Blood Count 2.75 M/uL (4.20-5.40); Reticulocytes # 0.06 10^6/uL (0.02-0.10); White Blood Count 3.64 K/ul (4.8-10.8)
[2023-05-06 04:32] LABS: Albumin Globulin Ratio 1.6 (0.9-2); Albumin Level 3.6 gm/dl (3.4-5.0); BUN Creatinine Ratio 7.7 (10-20); Calcium 8.1 mg/dl (8.6-10.3); Creatinine Clr Calc Pharmacy 124.2 ml/min; Est GFR (African American) 138.5 ml/min; Est GFR (Non-African American) 119.5 ml/min; Globulin 2.3 gm/dl (2.5-4.0); Potassium 3.2 mmol/L (3.5-5.1); Total Protein 5.9 gm/dl (6.0-8.3)
[2023-05-06 04:50] LABS: Ferritin 835.4 ng/ml (8-388)
[2023-05-06 05:24] LABS: Folate (Folic Acid),Ser orPlas 13.19 ng/ml (>5.38)
[2023-05-06] MEDS: GABAPENTIN 600 MG TAB PO SCH ×2 (07:13→12:38)
[2023-05-06 09:21] LABS: Estimated Average Glucose 91 mg/dl; Hemoglobin A1C 4.8 % (4.5-5.6)
[2023-05-06] MEDS: ENOXAPARIN INJ 30 MG/0.3 ML SYR SQ SCH (09:36)
[2023-05-06] MEDS: FOLIC ACID 1 MG TAB PO SCH (09:37)
--- NOTE | 2023-05-06 11:05 | Electrocardiogram Report ---
Test Reason : Blood Pressure : / mmHG Vent. Rate : 108 BPM Atrial Rate : 108 BPM P-R Int : 186 ms QRS Dur : 080 ms QT Int : 340 ms P-R-T Axes : 052 027 090 degrees QTc Int : 455 ms Sinus tachycardia Nonspecific T wave abnormality Abnormal ECG When compared with ECG of 08-MAY-2017 10:19, Nonspecific T wave abnormality now evident in Lateral leads Confirmed by Kp Redman ([id number]) on 05/06/2023 11:05:16 AM Referred By: REFERRED SELF Confirmed By:Ted Redman
[2023-05-06] MEDS: POTASSIUM CHLORIDE CRTAB 20 MEQ TABCR PO SCH ×4 (11:32→17:46)
[2023-05-06 12:04] LABS: Prothrombin Time 10.8 Seconds (9.0-12.0)
--- NOTE | 2023-05-06 16:13 | 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 Note ---
Date of Service: May 06, 2023 42-year-old lady with PMH of anxiety/mood disorder, fatty liver, alcohol abuse, ongoing vape use presented to the ED 05/05 with complaint of confusion/poor appetite/visual hallucination per family member. Patient denied abdominal pain/black or bloody stool/hematemesis or coffee-ground emesis at presentation. 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 She is being managed for the following: #. Alcohol withdrawal #. Metabolic and toxic encephalopathy: Likely secondary to alcohol use/withdrawal. Admitting CT head negative. Patient with history of alcohol abuse, started drinking again last June 2022 following a miscarriage. Patient comes in with poor appetite/confusion/visual hallucination. 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 MELODIE S protocol, thiamine, folic acid. Monitor and replete electrolytes. New onset anemia: FOBT negative at ED, hemoglobin of 11.5 at presentation. MCV 107. Likely secondary to chronic alcohol use. Iron profile with normal iron level/normal vitamin B12 and folate level. Monitor H&H daily or as appropriate. Transaminitis: AST elevation, likely secondary to alcohol use. Downtrending. Monitor LFT. Other chronic medical conditions: Continue with/resume home meds as and when able anxiety/mood disorder, patient admits to depression, not currently on maintenance medications Hyperglycemia rule out DM --> a1c 4.8 DVT prophylaxis. Lovenox subcu Full code Patient mother Ms. Jessenia Bauer, contact #[phone]. On exam, patient drowsy, heart/lung/abdominal examination WNL. For detailed information on the patient, refer to today's H&P note.
[2023-05-06] MEDS ORDERED: POTASSIUM CHLORIDE / WTR 10 MEQ/100 ML PLCT IV SCH (16:15)
[2023-05-06] MEDS ORDERED: GABAPENTIN 600 MG TAB PO SCH (20:00)
[2023-05-07] MEDS: NICOTINE 7 MG/24 HR TDSY TD SCH (02:05)
[2023-05-07] MEDS ORDERED: chlordiazePOXIDE ALCOHOL WITHDRAWL 25MG PO STA (02:47)
[2023-05-07] MEDS ORDERED: LORazepam 2 MG/1 ML VIAL IV STA (02:49)
[2023-05-07] MEDS: chlordiazePOXIDE HCl 25 MG CAP PO SCH ×4 (03:07→22:50)
--- NOTE | 2023-05-07 03:34 | 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 Note ---
Date of Service: May 07, 2023 Patient requiring multiple doses of IV Ativan. Change gabapentin to Librium taper.
[2023-05-07 07:40] LABS: Basophils # (auto) 0.04 K/uL (0-0.2); Basophils % (auto) 0.7 %; Eosinophils # (auto) 0.17 K/uL (0-0.50); Eosinophils % (auto) 3.1 %; Hematocrit (blood only) 32.9 % (37.0-47.0); Hemoglobin 11.3 g/dl (12.0-16.0); Immature Granulocytes # (auto) 0.04 K/uL (0.01-0.20); Immature Granulocytes % (auto) 0.7 %; Lymphocytes % (auto) 23.9 %; Mean Corpuscular Hemoglobin 37.7 pg (25.0-34.0); Mean Corpuscular Hgb Conc 34.3 g/dL (32.0-36.0); Mean Corpuscular Volume 109.7 fL (80.0-100.0); Mean Platelet Volume 9.8 fL (9.4-12.4); Monocytes # (auto) 0.48 K/uL (0.11-0.59); Monocytes % (auto) 8.8 %; Neutrophils % (auto) 62.8 %; Platelet Count 237 K/uL (130-400); RDW Coefficient of Variation 13.1 % (11.5-14.5); RDW Standard Deviation 51.9 fL (36.4-46.3); White Blood Count 5.43 K/ul (4.8-10.8)
[2023-05-07 08:01] LABS: Albumin Globulin Ratio 1.4 (0.9-2); Albumin Level 3.9 gm/dl (3.4-5.0); BUN Creatinine Ratio 8.5 (10-20); Bilirubin,Total 0.8 mg/dl (0.2-1.0); Calcium 9.3 mg/dl (8.6-10.3); Creatinine Clr Calc Pharmacy 118.7 ml/min; Est GFR (African American) 132.9 ml/min; Est GFR (Non-African American) 114.6 ml/min; Globulin 2.7 gm/dl (2.5-4.0); Magnesium 1.8 mg/dl (1.7-2.4); Total Protein 6.6 gm/dl (6.0-8.3)
[2023-05-07] MEDS ORDERED: THIAMINE HCL 100 MG TAB PO SCH (09:00)
[2023-05-07] MEDS: FOLIC ACID 1 MG TAB PO SCH (10:12)
[2023-05-07] MEDS: ENOXAPARIN INJ 30 MG/0.3 ML SYR SQ SCH (12:35)
[2023-05-07] MEDS: POT PHOSPHATE MONOBASIC W/ SOD TAB PO SCH ×3 (14:14→21:21)
[2023-05-07] MEDS: THIAMINE HCL 200 MG in SODIUM CHLORIDE 0.9% 50 ML IV SCH (14:19)
[2023-05-07] MEDS: FOLIC ACID 1 MG in SYRINGE 9.8 ML IV SCH (14:19)
--- NOTE | 2023-05-07 15:09 | Hospitalist Progress Note ---
Date of Service May 07, 2023 Assessment & Plan (1) Alcohol withdrawal: Plan 42-year-old lady with PMH of anxiety/mood disorder, fatty liver, alcohol abuse, ongoing vape use presented to the ED 05/05 with complaint of confusion/poor appetite/visual hallucination per family member. Patient denied abdominal pain/black or bloody stool/hematemesis or coffee-ground emesis at presentation. 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 She is being managed for the following: #. Alcohol withdrawal #. Metabolic and toxic encephalopathy: Likely secondary to alcohol use/withdrawal. Admitting CT head negative. Patient with history of alcohol abuse, started drinking again last June 2022 following a miscarriage. Patient comes in with poor appetite/confusion/visual hallucination. 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 MELODIE S protocol, thiamine, folic acid. Monitor and replete electrolytes. Patient currently on Librium taper. Requiring multiple doses of as needed Ativan. New onset anemia:FOBT negative at ED, hemoglobin of 11.5 at presentation. MCV 107. Likely secondary to chronic alcohol use. Iron profile with normal iron level/normal vitamin B12 and folate level. Monitor H&H daily or as appropriate. Transaminitis:AST elevation, likely secondary to alcohol use. Downtrending. Monitor LFT. Other chronic medical conditions:Continue with/resume home meds as and when able anxiety/mood disorder, patient admits to depression, not currently on maintenance medications Hyperglycemia rule out DM --> a1c 4.8 DVT prophylaxis. Lovenox subcu Full code Patient mother Ms. Jessenia Bauer, contact #[phone]. Updated 05/06 at bedside. Admission and Anticipated Discharge Date Admission Date: May 06, 2023 Subjective Patient seen and examined at bedside as a follow-up of alcohol withdrawal, metabolic and toxic encephalopathy. Patient was lying in bed, drowsy and sleepy, not waking up in the to cooperate with examination. Patient does not appear to be in distress. Patient did not eat her breakfast in the morning. Overnight patient needed multiple Ativan doses for higher CIWA score. Patient has been hallucinating when awake per RN aid. Physical Exam Physical Exam: GENERAL: Sleepy. NAD, on RA. HEENT: No pallor, no icterus. Pupils equal, round and reactive to light. Oral mucosa moist. NECK: No JVD, no neck masses. HEART: S1 and S2 heard. Regular rate and rhythm. No murmur, no gallop. RESPIRATORY SYSTEM: Normal AP diameter. No accessory muscle use. No wheezing, no crackles. ABDOMEN: Soft, bowel sounds present, nontender, no distention. CENTRAL NERVOUS SYSTEM: No facial droop. Speech is clear. Obeys simple comm ands. Moves extremities. EXTREMITIES: No edema, no erythema seen. Results & Data Results & Data Vital Signs (Past 12 Hours) Vital Signs Temp Pulse Pulse Resp BP Pulse Ox O2 Del Method 05/07/23 07:30 89 05/07/23 11:44 36.4 C L 81 12 132/92 100 Room Air 05/07/23 07:07 36.7 C 126 H 20 120/80 97 Room Air 05/07/23 04:10 36.7 C 96 H 18 110/75 98 Room Air
[2023-05-07] MEDS: oxyCODONE HCL IR 5 MG TAB (IMMEDIATE RELEASE) PO PRN (21:29)
[2023-05-07] MEDS: ACETAMINOPHEN 500 MG TAB PO PRN (21:30)
[2023-05-08] MEDS ORDERED: GABAPENTIN 600 MG TAB PO SCH
[2023-05-08] MEDS: chlordiazePOXIDE HCl 25 MG CAP PO SCH ×3 (06:28→21:38)
[2023-05-08 07:13] LABS: Hematocrit (blood only) 32.3 % (37.0-47.0); Hemoglobin 11.1 g/dl (12.0-16.0); Mean Corpuscular Hemoglobin 38.1 pg (25.0-34.0); Mean Corpuscular Hgb Conc 34.4 g/dL (32.0-36.0); Platelet Count 268 K/uL (130-400); RDW Coefficient of Variation 13.2 % (11.5-14.5); RDW Standard Deviation 53.9 fL (36.4-46.3); Red Blood Count 2.91 M/uL (4.20-5.40); White Blood Count 4.19 K/ul (4.8-10.8)
[2023-05-08 07:32] LABS: BUN Creatinine Ratio 8.3 (10-20); Calcium 8.7 mg/dl (8.6-10.3); Creatinine Clr Calc Pharmacy 115.5 ml/min; Est GFR (African American) 132.1 ml/min; Magnesium 1.6 mg/dl (1.7-2.4); Phosphorus 5.2 mg/dl (2.5-4.9); Potassium 3.5 mmol/L (3.5-5.1)
[2023-05-08] MEDS ORDERED: POTASSIUM CHLORIDE CRTAB 20 MEQ TABCR PO STA (08:28)
[2023-05-08] MEDS: LORazepam 2 MG/1 ML VIAL IV PRN ×2 (08:39→21:38)
[2023-05-08] MEDS: THIAMINE HCL 200 MG in SODIUM CHLORIDE 0.9% 50 ML IV SCH (08:39)
[2023-05-08] MEDS: ACETAMINOPHEN 500 MG TAB PO PRN ×2 (08:39→21:43)
[2023-05-08] MEDS: FOLIC ACID 1 MG in SYRINGE 9.8 ML IV SCH (08:41)
[2023-05-08] MEDS: NICOTINE 7 MG/24 HR TDSY TD SCH (08:41)
[2023-05-08] MEDS: MAGNESIUM SULFATE / D5W 1 GM/100 ML BAG IV SCH ×2 (08:41→11:01)
[2023-05-08] MEDS: ENOXAPARIN INJ 30 MG/0.3 ML SYR SQ SCH (08:45)
--- NOTE | 2023-05-08 15:08 | Hospitalist Progress Note ---
Date of Service May 08, 2023 Assessment & Plan (1) Alcohol withdrawal: Plan 42-year-old lady with PMH of anxiety/mood disorder, fatty liver, alcohol abuse, ongoing vape use presented to the ED 05/05 with complaint of confusion/poor appetite/visual hallucination per family member. Patient denied abdominal pain/black or bloody stool/hematemesis or coffee-ground emesis at presentation. 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 She is being managed for the following: #. Alcohol withdrawal #. Metabolic and toxic encephalopathy: Likely secondary to alcohol use/withdrawal. Admitting CT head negative. Resolved. Patient with history of alcohol abuse, started drinking again last June 2022 following a miscarriage. Patient comes in with poor appetite/confusion/visual hallucination. Last drink was 05/05/2023 evening. MELODIE S protocol, thiamine, folic acid. Monitor and replete electrolytes. Potassium and magnesium replaced today. Patient currently on Librium taper. Decreasing as needed Ativan dose requirement. New onset anemia:FOBT negative at ED, hemoglobin of 11.5 at presentation. MCV 107. Likely secondary to chronic alcohol use. Iron profile with normal iron level/normal vitamin B12 and folate level. Monitor H&H daily or as appropriate. Transaminitis:AST elevation, likely secondary to alcohol use. Downtrending. Monitor LFT. Other chronic medical conditions:Continue with/resume home meds as and when able anxiety/mood disorder, patient admits to depression, not currently on maintenance medications Hyperglycemia rule out DM --> a1c 4.8 DVT prophylaxis. Lovenox subcu Full code Patient mother Ms. Jessenia Bauer, contact #[phone]. Updated 05/06 at bedside. Admission and Anticipated Discharge Date Admission Date: May 06, 2023 Subjective Patient seen and examined at bedside as a follow-up of alcohol withdrawal, metabolic and toxic encephalopathy. Patient was sitting up in bed, reading book. Patient on room air, NAD, denies any new acute event overnight. Patient is alert and oriented x4, was even aware that she was hallucinating until yesterday, denies any headache or dizziness or chest pain or palpitation or belly pain, reports being able to eat better. Patient states that her last alcoholic drink was on Wednesday evening that is 05/05/2023. Extensive counseling on alcohol cessation and vaping cessation done, patient voiced understanding. Physical Exam Physical Exam: GENERAL: AOx4. NAD, on RA. HEENT: No pallor, no icterus. Pupils equal, round and reactive to light. Oral mucosa moist. NECK: No JVD, no neck masses. HEART: S1 and S2 heard. Regular rate and rhythm. No murmur, no gallop. RESPIRATORY SYSTEM: Normal AP diameter. No accessory muscle use. No wheezing, no crackles. ABDOMEN: Soft, bowel sounds present, nontender, no distention. CENTRAL NERVOUS SYSTEM: No facial droop. Speech is clear. Obeys simple commands. Moves extremities. EXTREMITIES: No edema, no erythema seen. Results & Data Results & Data Vital Signs (Past 12 Hours) Vital Signs Temp Pulse Pulse Resp BP Pulse Ox O2 Del Method 05/08/23 12:11 36.6 C 84 18 97/65 L 98 Room Air 05/08/23 08:00 104 H 05/08/23 07:31 36.5 C 66 18 111/77 99 Room Air
[2023-05-08] MEDS: oxyCODONE HCL IR 5 MG TAB (IMMEDIATE RELEASE) PO PRN (21:37)
[2023-05-09] MEDS: ACETAMINOPHEN 500 MG TAB PO PRN ×2 (05:08→20:00)
[2023-05-09] MEDS: oxyCODONE HCL IR 5 MG TAB (IMMEDIATE RELEASE) PO PRN ×3 (05:08→20:00)
[2023-05-09 07:07] LABS: Hematocrit (blood only) 32.7 % (37.0-47.0); Hemoglobin 11.5 g/dl (12.0-16.0); Mean Corpuscular Hemoglobin 38.7 pg (25.0-34.0); Mean Corpuscular Hgb Conc 35.2 g/dL (32.0-36.0); Mean Corpuscular Volume 110.1 fL (80.0-100.0); Mean Platelet Volume 9.7 fL (9.4-12.4); Platelet Count 291 K/uL (130-400); RDW Coefficient of Variation 13.4 % (11.5-14.5); RDW Standard Deviation 54.4 fL (36.4-46.3); Red Blood Count 2.97 M/uL (4.20-5.40); White Blood Count 4.49 K/ul (4.8-10.8)
[2023-05-09 07:47] LABS: BUN Creatinine Ratio 11.1 (10-20); Calcium 8.8 mg/dl (8.6-10.3); Creatinine Clr Calc Pharmacy 111.1 ml/min; Est GFR (Non-African American) 112.2 ml/min; Magnesium 1.9 mg/dl (1.7-2.4); Phosphorus 3.6 mg/dl (2.5-4.9); Potassium 3.9 mmol/L (3.5-5.1)
[2023-05-09] MEDS: FOLIC ACID 1 MG in SYRINGE 9.8 ML IV SCH (08:21)
[2023-05-09] MEDS: NICOTINE 7 MG/24 HR TDSY TD SCH (08:21)
[2023-05-09] MEDS: ENOXAPARIN INJ 40 MG/0.4 ML SYR SQ SCH (08:22)
[2023-05-09] MEDS: THIAMINE HCL 200 MG in SODIUM CHLORIDE 0.9% 50 ML IV SCH (08:31)
[2023-05-09] MEDS ORDERED: GABAPENTIN 600 MG TAB PO SCH (12:00)
--- NOTE | 2023-05-09 15:57 | Hospitalist Progress Note ---
Date of Service May 09, 2023 Assessment & Plan (1) Alcohol withdrawal: Plan 42-year-old lady with PMH of anxiety/mood disorder, fatty liver, alcohol abuse, ongoing vape use presented to the ED 05/05 with complaint of confusion/poor appetite/visual hallucination per family member. Patient denied abdominal pain/black or bloody stool/hematemesis or coffee-ground emesis at presentation. 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 She is being managed for the following: #. Alcohol withdrawal #. Metabolic and toxic encephalopathy: Likely secondary to alcohol use/withdrawal. Admitting CT head negative. Resolved. Patient with history of alcohol abuse, started drinking again last June 2022 following a miscarriage. Patient comes in with poor appetite/confusion/visual hallucination. Last drink was 05/05/2023 evening. MELODIE S protocol, thiamine, folic acid. Monitor and replete electrolytes. Potassium and magnesium replaced today. Patient currently on Librium taper. Decreasing as needed Ativan dose requirement. New onset anemia:FOBT negative at ED, hemoglobin of 11.5 at presentation. MCV 107. Likely secondary to chronic alcohol use. Iron profile with normal iron level/normal vitamin B12 and folate level. Monitor H&H daily or as appropriate. Transaminitis:AST elevation, likely secondary to alcohol use. Resolved. Other chronic medical conditions:Continue with/resume home meds as and when able anxiety/mood disorder, patient admits to depression, not currently on maintenance medications. Patient reports he has tried Wellbutrin and BuSpar in the past and those were unsuccessful. Celexa was discussed, patient was indicating finding online kind of liver problem with use of Celexa and was not very much interested in it, was indicating to being prescribed Ativan for her anxiety on discharge. Today she does not want to be started on anything and would like to think over it overnight and discuss with me again tomorrow morning. Hyperglycemia rule out DM --> a1c 4.8 DVT prophylaxis. Lovenox subcu Full code Patient mother Ms. Jessenia Bauer, contact #[phone]. Updated 05/06 at bedside. Pt declined further update to mother on 05/09. Admission and Anticipated Discharge Date Admission Date: May 06, 2023 Subjective Patient seen and examined at bedside as a follow-up of alcohol withdrawal, metabolic and toxic encephalopathy. Patient was sitting up in bed, reading book. Patient on room air, NAD, denies any new acute event overnight. denies any headache or dizziness or chest pain or palpitation or belly pain, reports being able to eat better. Patient states that her last alcoholic drink was on Wednesday evening that is 05/05/2023. Extensive counseling on alcohol cessation and vaping cessation done, patient voiced understanding. I received a message from a colleague MD that patient's mother caught her in the hallway and asked for an update from patient's MD. I reconfirmed with the RN to see if patient wants me to update her mother, per RN patient did not want update her mother as of now. I then called the patient myself later in the day, and confirmed if she wanted me to update her mother, patient declined updating her mother. Physical Exam Physical Exam: GENERAL: AOx4. NAD, on RA. HEENT: No pallor, no icterus. Pupils equal, round and reactive to light. Oral mucosa moist. NECK: No JVD, no neck masses. HEART: S1 and S2 heard. Regular rate and rhythm. No murmur, no gallop. RESPIRATORY SYSTEM: Normal AP diameter. No accessory muscle use. No wheezing, no crackles. ABDOMEN: Soft, bowel sounds present, nontender, no distention. CENTRAL NERVOUS SYSTEM: No facial droop. Speech is clear. Obeys simple commands. Moves extremities. EXTREMITIES: No edema, no erythema seen. Results & Data Results & Data Vital Signs (Past 12 Hours) Vital Signs Temp Pulse Pulse Resp BP Pulse Ox O2 Del Method 05/09/23 15:22 36.7 C 69 18 110/78 99 Room Air 05/09/23 12:05 36.7 C 84 18 102/72 97 Room Air 05/09/23 09:10 75 05/09/23 08:16 36.5 C 80 18 102/72 98 Room Air
[2023-05-10 06:32] LABS: Hematocrit (blood only) 32.5 % (37.0-47.0); Hemoglobin 11.2 g/dl (12.0-16.0); Mean Corpuscular Hemoglobin 37.7 pg (25.0-34.0); Mean Corpuscular Hgb Conc 34.5 g/dL (32.0-36.0); Mean Corpuscular Volume 109.4 fL (80.0-100.0); Mean Platelet Volume 9.7 fL (9.4-12.4); Platelet Count 287 K/uL (130-400); RDW Standard Deviation 52.2 fL (36.4-46.3); Red Blood Count 2.97 M/uL (4.20-5.40); White Blood Count 5.05 K/ul (4.8-10.8)
[2023-05-10 06:54] LABS: BUN Creatinine Ratio 9.6 (10-20); Calcium 9.2 mg/dl (8.6-10.3); Creatinine Clr Calc Pharmacy 95.9 ml/min; Est GFR (African American) 119.4 ml/min; Magnesium 1.7 mg/dl (1.7-2.4); Potassium 4.3 mmol/L (3.5-5.1)
[2023-05-10] MEDS: FOLIC ACID 1 MG in SYRINGE 9.8 ML IV SCH (08:19)
[2023-05-10] MEDS: NICOTINE 7 MG/24 HR TDSY TD SCH (08:20)
[2023-05-10] MEDS: ENOXAPARIN INJ 40 MG/0.4 ML SYR SQ SCH (08:20)
[2023-05-10] MEDS: oxyCODONE HCL IR 5 MG TAB (IMMEDIATE RELEASE) PO PRN ×2 (08:22→12:51)
[2023-05-10] MEDS: THIAMINE HCL 200 MG in SODIUM CHLORIDE 0.9% 50 ML IV SCH (08:27)
[2023-05-10] MEDS ORDERED: FOLIC ACID 1 MG TAB PO SCH (09:00)
[2023-05-10] MEDS ORDERED: THIAMINE HCL 100 MG TAB PO SCH (09:00)
[2023-05-10] MEDS ORDERED: chlordiazePOXIDE HCl 5 MG CAP PO SCH (09:00)
[2023-05-10] MEDS ORDERED: DICLOFENAC SOD 1% GEL 100 GM TUBE EXT SCH (12:15)
--- NOTE | 2023-05-10 14:35 | Discharge Summary ---
Date of Service May 10, 2023 Admission HPI Per Admitting Provider History obtained from patient, family, and records. Patient is a fair historian. Medical history significant for anxiety/mood disorder, fatty liver as per records, alcohol abuse, ongoing vape use. Last confinement March 2017 for alcohol withdrawal. Patient started drinking again last June 2022 following a miscarriage. Admits to depression but denies suicidality. 2 weeks ago, patient had headache symptoms. Noted to be shaky by mother. Patient seen at PCPs office. Concern for migraine headache and alcohol withdrawal. ER evaluation recommended but patient declined. Outpatient LFTs and ammonia level elevated. PCP prescribed naltrexone for alcohol withdrawal but later elevated due to abnormal LFTs. Patient not eating well at home. Last drink was 3 days ago. Patient noted to be confused and with visual hallucinations as per mother. Seeing people and objects. Patient denies abdominal pain, black/bloody stools, hematemesis/coffee-ground emesis. Patient brought to the ER for evaluation. Medical History as above Surgical History : Hand surgery, dental surgery Family History : Alcoholism, A-fib, dementia Personal/Social history : Ongoing vape use, alcohol abuse, currently unemployed Admission Exam Per Admitting Provider GENERAL: Slightly anxious, tremulous, no respiratory distress SKIN: Pallor, warm HEENT: Pale palpebral conjunctivae, no ptosis, dry buccal mucosa NECK : Supple, no tenderness CHEST : CTA, no tenderness HEART : RRR, no obvious murmurs ABDOMEN: Some distention, nontender RECTAL : Intact sphincter, brown stool (FOBT negative) EXTREMITIES : No LE swelling/tenderness, no other conspicuous deformities noted NEUROLOGIC : Coherent, no facial asymmetry, tremulous, gait and stance not assessed Principal Diagnosis Alcohol withdrawal Metabolic and toxic encephalopathy Soft tissue injury x left ankle New onset anemia Transaminitis, resolved Discharge Exam GENERAL: AOx4. NAD, on RA. HEENT: No pallor, no icterus. Pupils equal, round and reactive to light. Oral mucosa moist. NECK: No JVD, no neck masses. HEART: S1 and S2 heard. Regular rate and rhythm. No murmur, no gallop. RESPIRATORY SYSTEM: Normal AP diameter. No accessory muscle use. No wheezing, no crackles. ABDOMEN: Soft, bowel sounds present, nontender, no distention. CENTRAL NERVOUS SYSTEM: No facial droop. Speech is clear. Obeys simple commands. Moves extremities. EXTREMITIES: No edema, no erythema seen. Discharge Data Allergies Allergy/AdvReac Type Severity Reaction Status Date / Time No Known Drug Allergies Allergy Verified 02/26/21 09:56 Consultations 05/05/23 23:18 ED Decision to Admit Stat Ordered Studies 05/05/23 17:[address] [CT head/brain wo con] Stat Hospital Course (1) Alcohol withdrawal: Plan 42-year-old lady with PMH of anxiety/mood disorder, fatty liver, alcohol abuse, ongoing vape use presented to the ED 05/05 with complaint of confusion/poor appetite/visual hallucination per family member. Patient denied abdominal pain/black or bloody stool/hematemesis or coffee-ground emesis at presentation. Of note, patient's last drink was 3 days ago [employer]. She was managed for the following: #. Alcohol withdrawal #. Metabolic and toxic encephalopathy: Likely secondary to alcohol use/withdrawal. Admitting CT head negative. Resolved. Patient with history of alcohol abuse, started drinking again last June 2022 following a miscarriage. Patient comes in with poor appetite/confusion/visual hallucination. Last drink was 05/05/2023 evening. Continue with thiamine, folic acid. Complete Librium taper on discharge. Case management has offered various resources and help for the patient to help with alcohol cessation, patient stated she will follow-up on her own. New onset anemia:FOBT negative at ED, hemoglobin of 11.5 at presentation. MCV 107. Likely secondary to chronic alcohol use. Iron profile with normal iron level/normal vitamin B12 and folate level. Patient will need to repeat iron studies and vitamin B12/folate level in 3 months time. Patient to coordinate with PCP office. Transaminitis:AST elevation, likely secondary to alcohol use. Resolved. Repeat LFT in 3 months time, patient to coordinate with PCP office. Other chronic medical conditions:Continue with/resume home meds as and when able anxiety/mood disorder, patient admits to depression, not currently on maintenance medications. Patient reports he has tried Wellbutrin and BuSpar in the past and those were unsuccessful. Celexa was discussed, patient was indicating finding online some kind of liver problem with use of Celexa and was not very much interested in it, was indicating to being prescribed Ativan for her anxiety/depression on discharge. Today upon further discussion she declined being started on any such medications and stated that she will follow-up with the PCP for this discussion. Hyperglycemia rule out DM --> a1c 4.8 DVT prophylaxis. Lovenox subcu Full code Patient mother Ms. Jessenia Bauer, contact #[phone]. Updated 05/06 at bedside. Pt declined further update to mother on 05/09. Patient being discharged home with following instruction at the point of discharge: Follow-up with your primary care physician within a week time and likely you will need labs CBC/CMP/magnesium/phosphorus. Continue with thiamine and folic acid for a month time. Recommend testing LFT in 3 months time, iron profile and vitamin B12/folate level in 3 months time. Coordinate with your PCP office to set up these tests. For your anxiety/depression, as discussed at the bedside and per your preference, follow-up with your PCP for management/prescription. For your soft tissue injury of left ankle, elevate left lower leg as able, use ice compression, Tylenol [id number] and Voltaren gel. For severe pain, you will be discharged on few days worth of oxycodone. If ongoing or worsening pain, you will need evaluation at your PCP office for further management/pain prescription. Please make sure that you are able to get your medications today by calling your pharmacy before you leave the hospital so that your treatment continuity is not broken. Home Health Attestation I certify that this patient is under my care and that I, or a physicians psychiatric nursing assistant working with me, had a face to-face encounter that meets the home health [id number] encounter requirements with this patient. The encounter with the patient was in whole, or in part, for the following medical condition, which is the primary reason for home health care (list medical condition): I certify that, based on my findings, the following services are medically necessary home health services: My clinical findings support the need for the above services because: Further, I certify that my clinical findings support that this patient is homeb ound (i.e. absences from home require considerable and taxing effort and are for medical reasons or islam services or infrequently or of short duration when for other reasons) because: Certification for Home Health Services: Based on the above findings, I certify that this patient is confined to the home and needs intermittent mcc care, physical therapy and/or speech therapy or continues to need occupational therapy. The patient is under my care, and I have initiated the establishment of the plan of care. This patient will be followed by a physician who will periodically review the plan of care. Total Time Total Time Spent Total Time Spent (In Minutes): 45 Discharge Plan Discharge Items Patient Disposition: Home - Self-Care Reason For Visit: DT Discharge Diagnosis: Alcohol withdrawal Metabolic and toxic encephalopathy Soft tissue injury x left ankle New onset anemia Transaminitis, resolved Activity: As commented below Activity Comment: Weightbearing as tolerated with left lower extremity. Non-emergency contact: Primary Care Provider Call non-emergency contact if: you have any medication questions, your symptoms worsen and your temperature is above 101 Follow-up/Referrals: Aj Gaston MD [Primary Care Provider] - (Date & Time 05/17/2023 11:40 AM Provider Therese Perez PA-C Department [facility] ) Diet: Regular Addtl Attending Provider Instructions: Follow-up with your primary care physician within a week time and likely you will need labs CBC/CMP/magnesium/phosphorus. Continue with thiamine and folic acid for a month time. Recommend testing LFT in 3 months time, iron profile and vitamin B12/folate level in 3 months time. Coordinate with your PCP office to set up these tests. For your anxiety/depression, as discussed at the bedside and per your preference, follow-up with your PCP for management/prescription. For your soft tissue injury of left ankle, elevate left lower leg as able, use ice compression, Tylenol [id number] and Voltaren gel. For severe pain, you will be discharged on few days worth of oxycodone. If ongoing or worsening pain, you will need evaluation at your PCP office for further management/pain prescription. Please make sure that you are able to get your medications today by calling your pharmacy before you leave the hospital so that your treatment continuity is not broken. Pending Studies at Discharge: No Stand-Alone Forms: My LogMe[employer], Smoking Cessation Medications and DC Order Prescriptions: New nicotine 7 mg/24 hr Patch 24 Hour 7 mg transdermal QAM Qty: 28 0RF acetaminophen [Tylenol Extra Strength] 500 mg Tablet 500 mg PO Q6H PRN (Reason: mild pain (scale score 1-4)) Qty: 30 0RF chlordiazepoxide HCl 5 mg Capsule 5 mg PO Q12H 1 Days Qty: 2 0RF diclofenac sodium [Voltaren Arthritis Pain] 1 % Gel 2 g EXT Q6 Qty: 100 0RF oxycodone 5 mg Tablet 5 mg PO Q8H PRN (Reason: severe pain (scale score 7-10)) 3 Days Qty: 9 0RF folic acid 1 mg Tablet 1 mg PO QAM Qty: 30 0RF thiamine HCl (vitamin B1) 100 mg Tablet 100 mg PO QAM Qty: 30 0RF Continued ondansetron HCl 4 mg tablet 4 mg PO Q6 PRN (Reason: Nausea) drospirenone-ethinyl estradiol [Vestura (28)] 3-0.02 mg tablet 1 tab PO DAILY Discharge Orders: Discharge Order (Routine); Ordered 05/10/23 Ordered By: Priscila Lewis Admission Data Admit Date/Time: 05/06/23 01:03 Attending Provider: Priscila Lewis Admit Provider: Jimi Zavala Primary Care Provider: Aj Gaston Other Providers: Jimi Zavala
== END 2023-05-10 15:00 | disposition home or self-care (01) | DRG 896 ==
LOC: ED 17:01 → EDINP 05-06 01:03 → 2N 05-06 01:16

== ENCOUNTER 2023-07-05 20:19 | Inpatient (IN) ==
[2023-07-05 21:25] LABS: Basophils # (auto) 0.04 K/uL (0.00-0.20); Basophils % (auto) 0.5 %; Eosinophils # (auto) 0.04 K/uL (0.00-0.50); Eosinophils % (auto) 0.5 %; Hematocrit (blood only) 42.3 % (37.0-47.0); Hemoglobin 14.6 g/dl (12.0-16.0); Immature Granulocytes # (auto) 0.03 K/uL (0.01-0.20); Immature Granulocytes % (auto) 0.4 %; Lymphocytes # (auto) 2.74 K/uL (1.20-3.40); Lymphocytes % (auto) 35.7 %; Mean Corpuscular Hemoglobin 34.3 pg (25.0-34.0); Mean Corpuscular Hgb Conc 34.5 g/dL (32.0-36.0); Mean Corpuscular Volume 99.3 fL (80.0-100.0); Mean Platelet Volume 9.5 fL (9.4-12.4); Monocytes % (auto) 3.9 %; Neutrophils # (auto) 4.52 K/uL (1.40-6.50); Platelet Count 241 K/uL (130-400); RDW Coefficient of Variation 13.4 % (11.5-14.5); Red Blood Count 4.26 M/uL (4.20-5.40); White Blood Count 7.67 K/ul (4.8-10.8)
[2023-07-05] MEDS ORDERED: PANTOprazole 40 MG in SYRINGE 0 ML IV ONE (21:54)
[2023-07-05] MEDS ORDERED: MULTI-VITAMIN INFUSION 10 ML, THIAMINE HCL 100 MG, FOLIC ACID 1 MG in SODIUM CHLORIDE 0... IV ONE (21:54)
[2023-07-05] MEDS ORDERED: ONDANSETRON INJ 2 MG/ML 2 ML VIAL IV STA (21:54)
--- NOTE | 2023-07-05 22:01 | Emergency Department Note ---
History of Present Illness General Chief complaint: Illness Stated complaint: NOT EATING FOR 3 DAYS, HIGH PULSE,DRINKS HEAVILY Time Seen by Provider: 07/05/23 21:45 History of Present Illness Maximum Pain Intensity: 5 This is a 42-year-old female presenting to the emergency department for evaluation of alcohol use, elevated pulse rate, and not eating for the past 3 days. Patient has a history of heavy alcohol use, often drinking vodka on a daily basis. Patient is not able to quantify the amount of alcohol that she drinks, but implies that it is "a lot". The patient has not had fevers or chills. No chest pain, chest tightness, shortness of breath. She did have some vomiting earlier today. She states that she has not had any alcohol in the past 2 days, although she does appear altered on examination. Patient denies chance of . Family is at bedside and voiced concern for her safety. Patient does have history of anxiety and depression. She denies other substance use. Current discomfort is rated a 5/10. Home Medications Medication Instructions Recorded Confirmed Type ondansetron HCl 4 mg tablet 4 mg PO Q6 PRN Nausea 05/05/23 05/05/23 History acetaminophen 500 mg tablet 500 mg PO Q6H PRN mild pain (scale 05/10/23 07/06/23 Rx (Tylenol Extra Strength) score 1-4) #30 tabs diclofenac sodium 1 % topical gel 2 g EXT Q6 Left ankle pain #100 05/10/23 07/06/23 Rx (Voltaren Arthritis Pain) grams folic acid 1 mg tablet 1 mg PO QAM #30 tabs 05/10/23 Rx thiamine HCl (vitamin B1) 100 mg 100 mg PO QAM #30 tabs 05/10/23 Rx tablet Ventolin HFA 2 puff inhalation QID PRN Wheezing 07/06/23 07/06/23 History amitriptyline 50 mg tablet 25 mg PO HS PRN Pain 07/06/23 07/06/23 History buspirone 10 mg tablet 10 mg PO TID 07/06/23 07/06/23 History hydroxyzine HCl 25 mg tablet 25 mg PO Q6H PRN Anxiety 07/06/23 07/06/23 History melatonin 10 mg PO HS 07/06/23 07/06/23 History Allergies Allergy/AdvReac Type Severity Reaction Status Date / Time No Known Drug Allergies Allergy Verified 02/26/21 09:56 Past Med/Surg History Medical History Abnormal uterine bleeding ADD (attention deficit disorder) Alcohol dependence Anxiety Anxiety and depression Depression Fatty liver Insomnia Restless leg Surgical History H/O wisdom tooth extraction S/P nasal surgery septoplasty and rhinoplasty-both w/Dr. Castañeda Family History Aunt Breast cancer, Onset Age: 65 paternal Asthma maternal Grandfather (Paternal) Prostate cancer Aunt Allergies maternal Family/Other Allergies cousins Asthma cousins Other No family history of adverse response to anesthesia No family history of bleeding disorder Denies family history of Ovarian cancer Colorectal cancer Social History Smoking Status: Current every day smoker Tobacco Type: E-cigarettes / Vaping Age Started Using Tobacco: 20; packs per day: 0.5; Second Hand Exposure: No; Do You Dip or Chew Tobacco: No; Hx Alcohol Use: Yes Hx Substance Use: No Preferred Language: Dutch 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 Ability: Effective Mill Representative Required: No Beliefs That Will Affect Care: Spiritual marital status: Single Current Living Situation: Alone Current Living Situation Comment: Unknown- patient unable to answer Feels Safe at Home: Yes Safety Concerns: Feels Safe At This Time Assistive Devices: None Review of Systems A total of 10 systems reviewed and were otherwise negative Physical Exam Vital Signs Vital Signs - 24 hr 07/05/23 20:25 07/05/23 21:28 07/05/23 21:31 Temperature 36.7 C Temperature Source Temporal Artery Scan Pulse Rate 140 H 96 H Respiratory Rate 24 Respiratory Effort / Characteristics Non-Labored Spontaneous Respiratory Depth Normal Blood Pressure 129/78 Blood Pressure Mean 95 Pulse Oximetry 94 96 Oxygen Delivery Method Room Air Room Air Sepsis Recent Fever Within 48 Hours No Sepsis New/Unexplained Change in Mental Status No Sepsis Action Taken by Nursing No Action Required 07/05/23 21:16 07/05/23 22:00 07/05/23 23:00 Temperature Temperature Source Pulse Rate 95 H 88 94 H Respiratory Rate 17 19 17 Respiratory Effort / Characteristics Respiratory Depth Blood Pressure 120/86 107/73 112/74 Blood Pressure Mean 97 84 86 Pulse Oximetry 97 95 Oxygen Delivery Method Room Air Room Air Sepsis Recent Fever Within 48 Hours Sepsis New/Unexplained Change in Mental Status Sepsis Action Taken by Nursing 07/05/23 23:34 07/06/23 00:00 07/06/23 00:27 Temperature Temperature Source Pulse Rate 95 H 86 102 H Respiratory Rate 21 21 21 Respiratory Effort / Characteristics Respiratory Depth Blood Pressure 96/75 L 105/79 Blood Pressure Mean 82 87 Pulse Oximetry Oxygen Delivery Method Sepsis Recent Fever Within 48 Hours Sepsis New/Unexplained Change in Mental Status Sepsis Action Taken by Nursing 07/06/23 00:30 07/06/23 01:00 07/06/23 01:30 Temperature Temperature Source Pulse Rate 94 H 94 H 99 H Respiratory Rate 18 13 23 Respiratory Effort / Characteristics Respiratory Depth Blood Pressure 109/83 120/78 104/86 Blood Pressure Mean 91 92 92 Pulse Oximetry 95 100 Oxygen Delivery Method Room Air Room Air Sepsis Recent Fever Within 48 Hours Sepsis New/Unexplained Change in Mental Status Sepsis Action Taken by Nursing 07/06/23 01:14 Temperature Temperature Source Pulse Rate 94 H Respiratory Rate Respiratory Effort / Characteristics Respiratory Depth Blood Pressure Blood Pressure Mean Pulse Oximetry Oxygen Delivery Method Sepsis Recent Fever Within 48 Hours Sepsis New/Unexplained Change in Mental Status Sepsis Action Taken by Nursing VITALS: Vitals are noted on the nurse's note and reviewed by myself. Vital s igns stable. GENERAL: Well-developed, well-nourished, white female, who is in no acute distress. She is slurring her words and does appear slightly intoxicated on exam. HEAD: Normocephalic atraumatic. EARS: External ear normal. External auditory canals clear, tympanic membranes pearly frey without erythema or effusion bilaterally. EYES: Pupils equal round and reactive to light and accommodation. Conjunctivae without injection, sclerae without icterus. Extraocular movements intact. NOSE: Patent, turbinates without inflammation or discharge. MOUTH: Mucous membranes moist. Tonsils are not enlarged. Pharynx without erythema, blood, or exudate. Uvula midline. Airway patent. NECK: Supple without nuchal rigidity. No lymphadenopathy. No thyromegaly. Cervical spine is nontender. HEART: Regular rate and rhythm without murmurs gallops or rubs. LUNGS: Clear to auscultation bilaterally without wheezes, rales or rhonchi. No retractions or accessory muscle use. ABDOMEN: Positive normal bowel sounds x 4. Soft, nontender, without masses or organomegaly. No guarding or rebound tenderness. MUSCULOSKELETAL: No muscle atrophy, erythema, or edema noted. Full range of motion in all extremities. NEURO: Patient was alert and oriented to person place and time. CN II through XII grossly intact Course Administered Medications Buspirone HCl (Buspirone 5 Mg Tab) 10 mg PO TID [facility] Stop: 08/05/23 08:59 Last Admin: 07/06/23 20:12 Dose: 10 mg Documented By: Admin: 07/06/23 13:26 Dose: 10 mg Documented By: Admin: 07/06/23 08:05 Dose: 10 mg Documented By: FARIBA Chlordiazepoxide HCl (Chlordiazepoxide Hcl 25 Mg Cap) 25 mg PO Q8H [facility] Stop: 07/08/23 00:01 Last Admin: 07/07/23 07:45 Dose: 25 mg Documented By: RONDA Enoxaparin Sodium (Enoxaparin Inj 40 Mg/0.4 Ml Syr) 40 mg SQ QAM [facility] Stop: 08/05/23 08:59 Last Admin: 07/06/23 08:03 Dose: 40 mg Documented By: FARIBA Folic Acid (Folic Acid 1 Mg Tab) 1 mg PO QAM [facility] Stop: 08/05/23 08:59 Last Admin: 07/06/23 08:06 Dose: 1 mg Documented By: FARIBA Hydroxyzine HCl (Hydroxyzine Hcl 25 Mg Tab) 25 mg PO Q6H PRN PRN Reason: Anxiety Stop: 08/05/23 03:59 Last Admin: 07/07/23 07:51 Dose: 25 mg Documented By: Admin: 07/06/23 17:24 Dose: 25 mg Documented By: Admin: 07/06/23 11:20 Dose: 25 mg Documented By: Admin: 07/06/23 04:30 Dose: 25 mg Documented By: DEEP Lorazepam (Lorazepam 2 Mg/1 Ml Vial) 1 mg IV UD PRN; Protocol PRN Reason: EtOH Withdrawal AWSS Score 6,7 Stop: 08/05/23 01:38 Last Admin: 07/06/23 02:50 Dose: 1 mg Documented By: DEEP Lorazepam (Lorazepam 2 Mg/1 Ml Vial) 2 mg IV UD PRN; Protocol PRN Reason: EtOH Withdrawal AWSS Score 8,9 Stop: 08/05/23 01:38 Last Admin: 07/07/23 02:36 Dose: 2 mg Documented By: Admin: 07/06/23 20:11 Dose: 2 mg Documented By: HADLEY Melatonin (Melatonin 3 Mg Tab) 9 mg PO HS TIN Stop: 08/05/23 20:59 Last Admin: 07/06/23 20:11 Dose: 9 mg Documented By: HADLEY Multivitamins (Multivitamin Tab) 1 tab PO QAM TIN Stop: 08/05/23 08:59 Last Admin: 07/06/23 08:07 Dose: 1 tab Documented By: FARIBA Thiamine HCl (Thiamine Hcl 100 Mg Tab) 100 mg PO QAM TIN Stop: 08/05/23 08:59 Last Admin: 07/06/23 08:07 Dose: 100 mg Documented By: FARIBA Discontinued Medications Chlordiazepoxide HCl (Chlordiazepoxide Hcl 25 Mg Cap) 25 mg PO Q6H [facility] Stop: 07/07/23 02:01 Last Admin: 07/07/23 02:36 Dose: 25 mg Documented By: Admin: 07/06/23 20:11 Dose: 25 mg Documented By: Admin: 07/06/23 13:25 Dose: 25 mg Documented By: Admin: 07/06/23 08:08 Dose: 25 mg Documented By: FARIBA Gabapentin (Gabapentin 600 Mg Tab) 1,200 mg PO NOW STA Stop: 07/06/23 01:25 Last Admin: 07/06/23 01:54 Dose: 1,200 mg Documented By: DEEP Pantoprazole Sodium 40 mg/ (Syringe) 10 mls @ 5 mls/min IV NOW ONE Stop: 07/05/23 21:55 Last Admin: 07/05/23 22:34 Dose: 5 mls/min Documented By: MILY Multivitamins 10 ml/ Thiamine HCl 100 mg/ Folic Acid 1 mg/Sodium Chloride 1,011.2 mls @ 500 mls/hr IV .Q2H2M ONE Stop: 07/05/23 23:55 Last Infusion: 07/06/23 02:00 Dose: 0 mls/hr Documented By: Infusion: 07/06/23 00:02 Dose: 500 mls/hr Documented By: Infusion: 07/05/23 22:52 Dose: 0 mls/hr Documented By: Admin: 07/05/23 22:34 Dose: 500 mls/hr Documented By: MILY Lactated Ringer's (Lr) 1,000 mls @ 200 mls/hr IV .Q5H ONE Stop: 07/06/23 05:32 Last Infusion: 07/06/23 08:01 Dose: 0 mls/hr Documented By: Admin: 07/06/23 02:50 Dose: 200 mls/hr Documented By: DEEP Promethazine HCl 6.25 mg/ (Sodium Chloride) 50.25 mls @ 201 mls/hr IV NOW STA Stop: 07/06/23 02:04 Last Infusion: 07/06/23 02:12 Dose: 0 mls/hr Documented By: Admin: 07/06/23 01:54 Dose: 201 mls/hr Documented By: DEEP Ondansetron HCl (Ondansetron Inj 2 Mg/Ml 2 Ml Vial) 4 mg IV NOW STA Stop: 07/05/23 21:55 Last Admin: 07/05/23 22:34 Dose: 4 mg Documented By: MILY Medical Decision Making Differential Diagnosis Differential diagnosis: Etiologies such as alcohol intoxication, toxicological, infection, hypoglycemia, electrolyte abnormalities, cardiac sources, intracerebral event, neurologic, as well as others were entertained. Laboratory Data 07/05/23 20:43 07/05/23 21:40 Lab Results 07/05/23 07/05/23 07/05/23 Range/Units 20:43 20:43 20:43 WBC 7.67 (4.8-10.8) K/ul RBC 4.26 (4.20-5.40) M/uL Hgb 14.6 (12.0-16.0) g/dl Hct 42.3 (37.0-47.0) % MCV 99.3 (80.0-100.0) fL MCH 34.3 H (25.0-34.0) pg MCHC 34.5 (32.0-36.0) g/dL RDW Std Deviation 49.0 H (36.4-46.3) fL RDW Coeff of Edgar 13.4 (11.5-14.5) % Plt Count 241 (130-400) K/uL MPV 9.5 (9.4-12.4) fL Immature Gran % (Auto) 0.4 % Neut % (Auto) 59.0 % Lymph % (Auto) 35.7 % [place] % (Auto) 3.9 % Eos % (Auto) 0.5 % Baso % (Auto) 0.5 % Neut # (Auto) 4.52 (1.40-6.50) K/uL Lymph # (Auto) 2.74 (1.20-3.40) K/uL [place] # (Auto) 0.30 (0.11-0.59) K/uL Eos # (Auto) 0.04 (0.00-0.50) K/uL Baso # (Auto) 0.04 (0.00-0.20) K/uL Immature Gran # (Auto) 0.03 (0.01-0.20) K/uL PT (9.0-12.0) Seconds INR (0.9-1.1) Sodium Cancelled Potassium Cancelled Chloride Cancelled Carbon Dioxide Cancelled Anion Gap Cancelled BUN Cancelled Creatinine Cancelled Est Cr Clr Drug Dosing Cancelled Est GFR ( Amer) Cancelled Est GFR (Non-Af Amer) Cancelled BUN/Creatinine Ratio Cancelled Glucose Cancelled Calcium Cancelled Magnesium (1.7-2.4) mg/dl Total Bilirubin Cancelled AST Cancelled ALT Cancelled Alkaline Phosphatase Cancelled Ammonia (18-72) umol/L Total Protein Cancelled Albumin Cancelled Globulin Cancelled Albumin/Globulin Ratio Cancelled Urine Color Urine Appearance (Clear) Urine pH (4.5-7.5) Ur Specific [place] (1.000-1.030) Urine Protein (Negative) Urine Glucose (UA) (Negative) Urine Ketones (Negative) Urine Blood (Negative) Urine Nitrite (Negative) Urine Bilirubin (Negative) Urine Urobilinogen (Negative) Ur Leukocyte Esterase (Negative) Urine WBC (Auto) (0-5) /hpf Urine RBC (Auto) (0-4) /hpf U Hyaline Cast (Auto) (0-5) /lpf U Epithel Cells (Auto) (0-5) /lpf Urine Bacteria (Auto) (Negative) Salicylates (3.0-30) mg/dl Urine Opiates Screen (Neg) Ur Methadone, Qual (Neg) Acetaminophen (10-30) ug/ml Urine Barbiturates (Neg) Ur Phencyclidine (PCP) (Neg) U Amphetamin/Meth Scrn (Neg) MDMA (Ecstasy) Screen (Neg) U Benzodiazepines Scrn (Neg) Ur Cocaine Metabolite (Neg) U Marijuana (THC) Screen (Neg) Ethyl Alcohol mg/dL Cancelled 07/05/23 07/05/23 07/05/23 Range/Units 21:40 21:40 21:40 WBC (4.8-10.8) K/ul RBC (4.20-5.40) M/uL Hgb (12.0-16.0) g/dl Hct (37.0-47.0) % MCV (80.0-100.0) fL MCH (25.0-34.0) pg MCHC (32.0-36.0) g/dL RDW Std Deviation (36.4-46.3) fL RDW Coeff of Edgar (11.5-14.5) % Plt Count (130-400) K/uL MPV (9.4-12.4) fL Immature Gran % (Auto) % Neut % (Auto) % Lymph % (Auto) % [place] % (Auto) % Eos % (Auto) % Baso % (Auto) % Neut # (Auto) (1.40-6.50) K/uL Lymph # (Auto) (1.20-3.40) K/uL [place] # (Auto) (0.11-0.59) K/uL Eos # (Auto) (0.00-0.50) K/uL Baso # (Auto) (0.00-0.20) K/uL Immature Gran # (Auto) (0.01-0.20) K/uL PT 10.3 (9.0-12.0) Seconds INR 0.9 (0.9-1.1) Sodium 140 Potassium 4.4 Chloride 105 Carbon Dioxide 13 L Anion Gap 22 H BUN 9 Creatinine 0.78 Est Cr Clr Drug Dosing Not Reportable Est GFR ( Amer) 110.2 Est GFR (Non-Af Amer) 95.1 BUN/Creatinine Ratio 11.5 Glucose 70 Calcium 8.2 L Magnesium 2.0 (1.7-2.4) mg/dl Total Bilirubin 0.3 AST 51 H ALT 27 Alkaline Phosphatase 64 Ammonia (18-72) umol/L Total Protein 7.7 Albumin 4.7 Globulin 3.0 Albumin/Globulin Ratio 1.6 Urine Color Urine Appearance (Clear) Urine pH (4.5-7.5) Ur Specific [place] (1.000-1.030) Urine Protein (Negative) Urine Glucose (UA) (Negative) Urine Ketones (Negative) Urine Blood (Negative) Urine Nitrite (Negative) Urine Bilirubin (Negative) Urine Urobilinogen (Negative) Ur Leukocyte Esterase (Negative) Urine WBC (Auto) (0-5) /hpf Urine RBC (Auto) (0-4) /hpf U Hyaline Cast (Auto) (0-5) /lpf U Epithel Cells (Auto) (0-5) /lpf Urine Bacteria (Auto) (Negative) Salicylates (3.0-30) mg/dl Urine Opiates Screen (Neg) Ur Methadone, Qual (Neg) Acetaminophen (10-30) ug/ml Urine Barbiturates (Neg) Ur Phencyclidine (PCP) (Neg) U Amphetamin/Meth Scrn (Neg) MDMA (Ecstasy) Screen (Neg) U Benzodiazepines Scrn (Neg) Ur Cocaine Metabolite (Neg) U Marijuana (THC) Screen (Neg) Ethyl Alcohol mg/dL 456.1 H 07/05/23 07/05/23 07/06/23 Range/Units 23:15 23:15 00:40 WBC (4.8-10.8) K/ul RBC (4.20-5.40) M/uL Hgb (12.0-16.0) g/dl Hct (37.0-47.0) % MCV (80.0-100.0) fL MCH (25.0-34.0) pg MCHC (32.0-36.0) g/dL RDW Std Deviation (36.4-46.3) fL RDW Coeff of Edgar (11.5-14.5) % Plt Count (130-400) K/uL MPV (9.4-12.4) fL Immature Gran % (Auto) % Neut % (Auto) % Lymph % (Auto) % [place] % (Auto) % Eos % (Auto) % Baso % (Auto) % Neut # (Auto) (1.40-6.50) K/uL Lymph # (Auto) (1.20-3.40) K/uL [place] # (Auto) (0.11-0.59) K/uL Eos # (Auto) (0.00-0.50) K/uL Baso # (Auto) (0.00-0.20) K/uL Immature Gran # (Auto) (0.01-0.20) K/uL PT (9.0-12.0) Seconds INR (0.9-1.1) Sodium Potassium Chloride Carbon Dioxide Anion Gap BUN Creatinine Est Cr Clr Drug Dosing Est GFR ( Amer) Est GFR (Non-Af Amer) BUN/Creatinine Ratio Glucose Calcium Magnesium (1.7-2.4) mg/dl Total Bilirubin AST ALT Alkaline Phosphatase Ammonia 48.0 (18-72) umol/L Total Protein Albumin Globulin Albumin/Globulin Ratio Urine Color Yellow Urine Appearance Clear (Clear) Urine pH 5.0 (4.5-7.5) Ur Specific [place] 1.010 (1.000-1.030) Urine Protein Negative (Negative) Urine Glucose (UA) Negative (Negative) Urine Ketones 2+ H (Negative) Urine Blood Trace H (Negative) Urine Nitrite Negative (Negative) Urine Bilirubin Negative (Negative) Urine Urobilinogen Negative (Negative) Ur Leukocyte Esterase Negative (Negative) Urine WBC (Auto) 1-5 (0-5) /hpf Urine RBC (Auto) 0-4 (0-4) /hpf U Hyaline Cast (Auto) 0 (0-5) /lpf U Epithel Cells (Auto) 10-20 H (0-5) /lpf Urine Bacteria (Auto) Negative (Negative) Salicylates < 3.0 L (3.0-30) mg/dl Urine Opiates Screen (Neg) Ur Methadone, Qual (Neg) Acetaminophen < 3 L (10-30) ug/ml Urine Barbiturates (Neg) Ur Phencyclidine (PCP) (Neg) U Amphetamin/Meth Scrn (Neg) MDMA (Ecstasy) Screen (Neg) U Benzodiazepines Scrn (Neg) Ur Cocaine Metabolite (Neg) U Marijuana (THC) Screen (Neg) Ethyl Alcohol mg/dL 07/06/23 Range/Units 00:40 WBC (4.8-10.8) K/ul RBC (4.20-5.40) M/uL Hgb (12.0-16.0) g/dl Hct (37.0-47.0) % MCV (80.0-100.0) fL MCH (25.0-34.0) pg MCHC (32.0-36.0) g/dL RDW Std Deviation (36.4-46.3) fL RDW Coeff of Edgar (11.5-14.5) % Plt Count (130-400) K/uL MPV (9.4-12.4) fL Immature Gran % (Auto) % Neut % (Auto) % Lymph % (Auto) % [place] % (Auto) % Eos % (Auto) % Baso % (Auto) % Neut # (Auto) (1.40-6.50) K/uL Lymph # (Auto) (1.20-3.40) K/uL [place] # (Auto) (0.11-0.59) K/uL Eos # (Auto) (0.00-0.50) K/uL Baso # (Auto) (0.00-0.20) K/uL Immature Gran # (Auto) (0.01-0.20) K/uL PT (9.0-12.0) Seconds INR (0.9-1.1) Sodium Potassium Chloride Carbon Dioxide Anion Gap BUN Creatinine Est Cr Clr Drug Dosing Est GFR ( Amer) Est GFR (Non-Af Amer) BUN/Creatinine Ratio Glucose Calcium Magnesium (1.7-2.4) mg/dl Total Bilirubin AST ALT Alkaline Phosphatase Ammonia (18-72) umol/L Total Protein Albumin Globulin Albumin/Globulin Ratio Urine Color Urine Appearance (Clear) Urine pH (4.5-7.5) Ur Specific [place] (1.000-1.030) Urine Protein (Negative) Urine Glucose (UA) (Negative) Urine Ketones (Negative) Urine Blood (Negative) Urine Nitrite (Negative) Urine Bilirubin (Negative) Urine Urobilinogen (Negative) Ur Leukocyte Esterase (Negative) Urine WBC (Auto) (0-5) /hpf Urine RBC (Auto) (0-4) /hpf U Hyaline Cast (Auto) (0-5) /lpf U Epithel Cells (Auto) (0-5) /lpf Urine Bacteria (Auto) (Negative) Salicylates (3.0-30) mg/dl Urine Opiates Screen Neg (Neg) Ur Methadone, Qual Neg (Neg) Acetaminophen (10-30) ug/ml Urine Barbiturates Neg (Neg) Ur Phencyclidine (PCP) Neg (Neg) U Amphetamin/Meth Scrn Neg (Neg) MDMA (Ecstasy) Screen Neg (Neg) U Benzodiazepines Scrn Neg (Neg) Ur Cocaine Metabolite Neg (Neg) U Marijuana (THC) Screen Neg (Neg) Ethyl Alcohol mg/dL MDM Narrative Physical exam and history were performed. Nursing notes, EMR, and Medication List were personally reviewed. No social concerns were identified as barriers to patients care. Patient appears to have been drinking alcohol for a long period of time. She has not had much to eat or drink otherwise the past several days. Family is concerned, and brought her to the ER for evaluation. Patient does appear slightly altered on exam. IV access was established and labs were obtained. Patient was seen during a period of very high ER volume and acuity with extended wait times. Nursing protocol order have been performed and some of these are available for my review at the time of patient encounter. Patient was given IV Zofran, IV Protonix, and a banana bag. Patient's blood work is as above and was reviewed. She does not have a significantly elevated white blood cell count, rest anemia, bandemia, or significant electrolyte imbalance. Transaminases are not diagnostic. Alcohol is markedly elevated over 450, despite the patient alleging that she has not had any alcohol in the past 2 days. Patient is remaining blood work is nondiagnostic. I did discuss options of care with patient and family. I voiced my concern that the patient's alcohol abuse is at a very high level, placing her at extremely high risk for liver failure or withdrawal seizures. The patient is willing to stay in the hospital for further services. [facility] the patient here in the ER. Please see their dictation for further patient course, plan, disposition. The chart was completed utilizing [employer] Speech Voice Recognition Software. Grammatical errors, random word insertions, pronoun errors, and incomplete sentences are an occasional consequence of this system due to software limitations, ambient noise, and hardware issues. Any formal questions or concerns about the content, text, or information contained within the body of this dictation should be directly addressed to the provider for clarification. . Impression & Plan Alcohol abuse, Alcohol dependence Discharge Plan Visit Data Chief Complaint: Illness Stated Complaint: NOT EATING FOR 3 DAYS, HIGH PULSE,DRINKS HEAVILY ED Provider: Jeffrey No ED Midlevel Provider: Joe Polk Discharge Problem: Alcohol abuse, Alcohol dependence Patient Disposition: Admitted As Inpatient Discharge Instructions Interventions: ED Discharge Assessment Last Done: 07/06/23 18:16
[2023-07-05 22:11] LABS: Albumin Level 4.7 gm/dl (3.4-5.0); Anion Gap 22 (3-11); Bilirubin,Total 0.3 mg/dl (0.2-1.0); Calcium 8.2 mg/dl (8.6-10.3); Carbon Dioxide 13 mmol/L (21-32); Chloride 105 mmol/L (98-107); Potassium 4.4 mmol/L (3.5-5.1); Sodium 140 mmol/L (136-145)
[2023-07-05 22:17] LABS: Alanine Aminotransferase 27 U/L (7-52); Albumin Globulin Ratio 1.6 (0.9-2); Alkaline Phosphatase 64 U/L (34-104); Aspartate Aminotransferase 51 U/L (13-39); BUN Creatinine Ratio 11.5 (10-20); Blood Urea Nitrogen 9 mg/dl (6-23); Est GFR (African American) 110.2 ml/min; Est GFR (Non-African American) 95.1 ml/min; Glucose 70 mg/dl (70-99(Fasting)); Total Protein 7.7 gm/dl (6.0-8.3)
[2023-07-05 22:31] LABS: INR 0.9 (0.9-1.1); Prothrombin Time 10.3 Seconds (9.0-12.0)
[2023-07-05 23:51] LABS: Acetaminophen < 3 ug/ml (10-30); Salicylate < 3.0 mg/dl (3.0-30)
[2023-07-06] MEDS ORDERED: LACTATED RINGER'S 1,000 ML IV ONE (00:33)
[2023-07-06 01:09] LABS: Appearance Urine Clear (Clear); Bacteria Urine Automated Negative (Negative); Bilirubin Urine Negative (Negative); Blood Urine Trace (Negative); Cast Urine Automated 0 /lpf (0-5); Color Urine Yellow; Glucose Urine UA Negative (Negative); Ketones Urine 2+ (Negative); Leukocyte Esterase Urine Negative (Negative); Nitrite Urine Negative (Negative); Protein Urine Negative (Negative); RBC Urine Automated 0-4 /hpf (0-4); Urobilinogen Urine Negative (Negative)
[2023-07-06] MEDS ORDERED: GABAPENTIN 600 MG TAB PO STA (01:24)
[2023-07-06 01:32] LABS: Amphetamines+Metham, Urine Neg (Neg); Barbiturates, Urine Neg (Neg); Benzodiazepine, Urine Neg (Neg); Cocaine, Urine Neg (Neg); MDMA (Ecstacy), Urine Neg (Neg); Methadone, Urine Neg (Neg); Opiate, Urine Neg (Neg); Phencyclidine, Urine Neg (Neg)
--- NOTE | 2023-07-06 01:36 | History & Physical Report ---
Date of Service July 06, 2023 Assessment & Plan (1) Alcohol withdrawal: Plan: Alcoholic hepatitis, likely good prognosis on [facility] DF with PT within normal limits chronic anemia, current hemoglobin better than baseline secondary to hemoconcentration anxiety/mood disorder, currently on Buspirone, not any worse as per patient Left breast cyst, outpatient biopsy procedure contemplated next week ongoing vape use Medical telemetry MELODIE S, DT precautions Social service re: alcohol rehab placement post detox DVT prophylaxis. Lovenox subcu Full code Patient mother requesting updates from providers. Ms. Jessenia Bauer, contact #[phone]. Text document was generated using Pulsant voice recognition software. It may contain grammatical or spelling errors. Kindly contact undersigned for clarification of any documentation item in question. History of Present Illness Chief Complaint: Mother told me to go to hospital because I was drinking a lot Primary Care Provider: Aj Gaston MD History obtained from patient and records. Medical history significant for anxiety/mood disorder, fatty liver as per records, chronic anemia (baseline hemoglobin of 11 ), alcohol abuse, left breast cyst, ongoing vape use. Last confinement 2 months ago for alcohol withdrawal. Patient completed Librium taper on discharge. Patient refused alcohol rehab placement as per case management documentation. Patient started drinking again 3 weeks after discharge. Mood not the best but patient denies suicidality. Buspirone started by PCP outpatient. Patient mother worried about patient in the last week because of heavy drinking. Nausea and emesis without abdominal pain. No chest pain, no SOB, no headache, no seizures. Patient brought to the ER for evaluation by mother for evaluation and possible rehab placement after detox. Medical Historyas above Surgical History : Hand surgery, dental surgery Family History : Alcoholism, A-fib, dementia Personal/Social history : Ongoing vape use, alcohol abuse, currently unemployed Allergies Allergy/AdvReac Type Severity Reaction Status Date / Time No Known Drug Allergies Allergy Verified 02/26/21 09:56 Home Medications Medication Instructions Recorded Confirmed Type drospirenone 3 mg-ethinyl 1 tab PO DAILY 05/05/23 05/05/23 History estradiol 0.02 mg tablet (Vestura (28)) ondansetron HCl 4 mg tablet 4 mg PO Q6 PRN Nausea 05/05/23 05/05/23 History acetaminophen 500 mg tablet 500 mg PO Q6H PRN mild pain (scale 05/10/23 07/06/23 Rx (Tylenol Extra Strength) score 1-4) #30 tabs diclofenac sodium 1 % topical gel 2 g EXT Q6 Left ankle pain #100 05/10/23 07/06/23 Rx (Voltaren Arthritis Pain) grams folic acid 1 mg tablet 1 mg PO QAM #30 tabs 05/10/23 Rx nicotine 7 mg/24 hr daily 7 mg transdermal QAM #28 ea 05/10/23 Rx transdermal patch thiamine HCl (vitamin B1) 100 mg 100 mg PO QAM #30 tabs 05/10/23 Rx tablet Ventolin HFA 108 mcg inhalation 4XD 07/06/23 07/06/23 History amitriptyline 50 mg tablet 50 mg PO HS 07/06/23 07/06/23 History bupropion HCl 100 mg tablet,12 hr 10 mg PO TID 07/06/23 07/06/23 History sustained-release hydroxyzine HCl 25 mg tablet 25 mg PO Q6H PRN Anxiety 07/06/23 07/06/23 History melatonin 10 mg PO HS 07/06/23 07/06/23 History Past Med/Surg History Medical History Abnormal uterine bleeding ADD (attention deficit disorder) Alcohol dependence Anxiety Anxiety and depression Depression Fatty liver Insomnia Restless leg Surgical History H/O wisdom tooth extraction S/P nasal surgery septoplasty and rhinoplasty-both w/Dr. Castañeda Family History Aunt Breast cancer, Onset Age: 65 paternal Asthma maternal Grandfather (Paternal) Prostate cancer Aunt Allergies maternal Family/Other Allergies cousins Asthma cousins Other No family history of adverse response to anesthesia No family history of bleeding disorder Denies family history of Ovarian cancer Colorectal cancer Social History Smoking Status: Current every day smoker Tobacco Type: E-cigarettes / Vaping Age Started Using Tobacco: 20; packs per day: 0.5; Second Hand Exposure: No; Do You Dip or Chew Tobacco: No; Hx Alcohol Use: Yes Hx Substance Use: No Preferred Language: Jordanian 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 Ability: Unable Swamper Required: No Beliefs That Will Affect Care: None marital status: Single Current Living Situation: Alone Current Living Situation Comment: Unknown- patient unable to answer Feels Safe at Home: Yes Assistive Devices: None Review of Systems Review of Systems: As per HPI, all other systems reviewed and negative Physical Exam Physical Exam: GENERAL: Pleasant, tremulous, no respiratory distress SKIN: Pallor, warm HEENT: Pale palpebral conjunctivae, no ptosis, dry buccal mucosa NECK : Supple, no tenderness CHEST : CTA, no tenderness HEART : RRR, no obvious murmurs ABDOMEN: Some distention, nontender EXTREMITIES : No LE swelling/tenderness, no other conspicuous deformities noted NEUROLOGIC : Coherent, no facial asymmetry, tremulous, gait and stance not assessed Results & Data Results & Data Vital Signs (Past 12 Hours) Vital Signs Temp Pulse Resp BP Pulse Ox O2 Del Method 07/06/23 01:00 94 H 13 120/78 95 Room Air 07/06/23 00:30 94 H 18 109/83 07/06/23 00:27 102 H 21 105/79 07/06/23 00:00 86 21 07/05/23 23:34 95 H 21 96/75 L 07/05/23 23:00 94 H 17 112/74 07/05/23 22:00 88 19 107/73 95 Room Air 07/05/23 21:16 95 H 17 120/86 97 Room Air 07/05/23 21:31 96 H 07/05/23 21:28 96 Room Air 07/05/23 20:25 36.7 C 140 H 24 129/78 94 Room Air Laboratory Results Laboratory Results WBC 7.67 K/ul (4.8-10.8) 07/05/23 20:43 RBC 4.26 M/uL (4.20-5.40) 07/05/23 20:43 Hgb 14.6 g/dl (12.0-16.0) 07/05/23 20:43 Hct 42.3 % (37.0-47.0) 07/05/23 20:43 MCV 99.3 fL (80.0-100.0) 07/05/23 20:43 MCH 34.3 pg (25.0-34.0) H 07/05/23 20:43 MCHC 34.5 g/dL (32.0-36.0) 07/05/23 20:43 RDW Std Deviation 49.0 fL (36.4-46.3) H 07/05/23 20:43 RDW Coeff of Edgar 13.4 % (11.5-14.5) 07/05/23 20:43 Plt Count 241 K/uL (130-400) 07/05/23 20:43 MPV 9.5 fL (9.4-12.4) 07/05/23 20:43 Immature Gran % (Auto) 0.4 % 07/05/23 20:43 Neut % (Auto) 59.0 % 07/05/23 20:43 Lymph % (Auto) 35.7 % 07/05/23 20:43 [place] % (Auto) 3.9 % 07/05/23 20:43 Eos % (Auto) 0.5 % 07/05/23 20:43 Baso % (Auto) 0.5 % 07/05/23 20:43 Neut # (Auto) 4.52 K/uL (1.40-6.50) 07/05/23 20:43 Lymph # (Auto) 2.74 K/uL (1.20-3.40) 07/05/23 20:43 [place] # (Auto) 0.30 K/uL (0.11-0.59) 07/05/23 20:43 Eos # (Auto) 0.04 K/uL (0.00-0.50) 07/05/23 20:43 Baso # (Auto) 0.04 K/uL (0.00-0.20) 07/05/23 20:43 Immature Gran # (Auto) 0.03 K/uL (0.01-0.20) 07/05/23 20:43 PT 10.3 Seconds (9.0-12.0) 07/05/23 21:40 INR 0.9 (0.9-1.1) 07/05/23 21:40 Sodium 140 mmol/L (136-145) 07/05/23 21:40 Potassium 4.4 mmol/L (3.5-5.1) 07/05/23 21:40 Chloride 105 mmol/L (98-107) 07/05/23 21:40 Carbon Dioxide 13 mmol/L (21-32) L 07/05/23 21:40 Anion Gap 22 (3-11) H 07/05/23 21:40 BUN 9 mg/dl (6-23) 07/05/23 21:40 Creatinine 0.78 mg/dl (0.6-1.2) 07/05/23 21:40 Est Cr Clr Drug Dosing Not Reportable 07/05/23 21:40 Est GFR ( Amer) 110.2 ml/min 07/05/23 21:40 Est GFR (Non-Af Amer) 95.1 ml/min 07/05/23 21:40 BUN/Creatinine Ratio 11.5 (10-20) 07/05/23 21:40 Glucose 70 mg/dl (70-99(Fasting)) 07/05/23 21:40 Calcium 8.2 mg/dl (8.6-10.3) L 07/05/23 21:40 Magnesium 2.0 mg/dl (1.7-2.4) 07/05/23 21:40 Total Bilirubin 0.3 mg/dl (0.2-1.0) 07/05/23 21:40 AST 51 U/L (13-39) H 07/05/23 21:40 ALT 27 U/L (7-52) 07/05/23 21:40 Alkaline Phosphatase 64 U/L (34-104) 07/05/23 21:40 Ammonia 48.0 umol/L (18-72) 07/05/23 23:15 Total Protein 7.7 gm/dl (6.0-8.3) 07/05/23 21:40 Albumin 4.7 gm/dl (3.4-5.0) 07/05/23 21:40 Globulin 3.0 gm/dl (2.5-4.0) 07/05/23 21:40 Albumin/Globulin Ratio 1.6 (0.9-2) 07/05/23 21:40 Urine Color Yellow 07/06/23 00:40 Urine Appearance Clear (Clear) 07/06/23 00:40 Urine pH 5.0 (4.5-7.5) 07/06/23 00:40 Ur Specific [place] 1.010 (1.000-1.030) 07/06/23 00:40 Urine Protein Negative (Negative) 07/06/23 00:40 Urine Glucose (UA) Negative (Negative) 07/06/23 00:40 Urine Ketones 2+ (Negative) H 07/06/23 00:40 Urine Blood Trace (Negative) H 07/06/23 00:40 Urine Nitrite Negative (Negative) 07/06/23 00:40 Urine Bilirubin Negative (Negative) 07/06/23 00:40 Urine Urobilinogen Negative (Negative) 07/06/23 00:40 Ur Leukocyte Esterase Negative (Negative) 07/06/23 00:40 Urine WBC (Auto) 1-5 /hpf (0-5) 07/06/23 00:40 Urine RBC (Auto) 0-4 /hpf (0-4) 07/06/23 00:40 U Hyaline Cast (Auto) 0 /lpf (0-5) 07/06/23 00:40 U Epithel Cells (Auto) 10-20 /lpf (0-5) H 07/06/23 00:40 Urine Bacteria (Auto) Negative (Negative) 07/06/23 00:40 Salicylates < 3.0 mg/dl (3.0-30) L 07/05/23 23:15 Urine Opiates Screen Neg (Neg) 07/06/23 00:40 Ur Methadone, Qual Neg (Neg) 07/06/23 00:40 Acetaminophen < 3 ug/ml (10-30) L 07/05/23 23:15 Urine Barbiturates Neg (Neg) 07/06/23 00:40 Ur Phencyclidine (PCP) Neg (Neg) 07/06/23 00:40 U Amphetamin/Meth Scrn Neg (Neg) 07/06/23 00:40 MDMA (Ecstasy) Screen Neg (Neg) 07/06/23 00:40 U Benzodiazepines Scrn Neg (Neg) 07/06/23 00:40 Ur Cocaine Metabolite Neg (Neg) 07/06/23 00:40 U Marijuana (THC) Screen Neg (Neg) 07/06/23 00:40 Ethyl Alcohol mg/dL 456.1 mg/dl (<10.0) H 07/05/23 21:40
[2023-07-06] MEDS ORDERED: ACETAMINOPHEN 325 MG TAB PO PRN (01:39)
[2023-07-06] MEDS ORDERED: LORazepam 2 MG/1 ML VIAL IV PRN (01:39)
[2023-07-06] MEDS ORDERED: oxyCODONE HCL IR 5 MG TAB (IMMEDIATE RELEASE) PO PRN (01:39)
[2023-07-06] MEDS ORDERED: Ativan IV Alcohol Withdrawal--Active Protocol IV PRN (01:39)
[2023-07-06] MEDS ORDERED: GABAPENTIN 1200MG ALCOHOL WITHDRAWAL LOAD PO STA (01:39)
[2023-07-06] MEDS ORDERED: PROMETHAZINE HCL 6.25 MG in SODIUM CHLORIDE 0.9% 50 ML IV PRN (01:39)
[2023-07-06] MEDS ORDERED: PROMETHAZINE HCL 6.25 MG in SODIUM CHLORIDE 0.9% 50 ML IV STA (01:50)
[2023-07-06] MEDS: LORazepam 2 MG/1 ML VIAL IV PRN ×2 (02:50→20:11)
[2023-07-06] MEDS ORDERED: AMITRIPTYLINE HCL 25 MG TAB PO PRN (04:00)
[2023-07-06] MEDS ORDERED: DICLOFENAC SOD 1% GEL 100 GM TUBE EXT PRN (04:19)
[2023-07-06] MEDS: hydrOXYzine HCl 25 MG TAB PO PRN ×3 (04:30→17:24)
[2023-07-06 05:01] LABS: Basophils # (auto) 0.02 K/uL (0.00-0.20); Basophils % (auto) 0.5 %; Eosinophils % (auto) 2.3 %; Hematocrit (blood only) 37.7 % (37.0-47.0); Hemoglobin 12.9 g/dl (12.0-16.0); Immature Granulocytes # (auto) 0.03 K/uL (0.01-0.20); Immature Granulocytes % (auto) 0.7 %; Lymphocytes # (auto) 1.64 K/uL (1.20-3.40); Lymphocytes % (auto) 37.9 %; Mean Corpuscular Hemoglobin 33.9 pg (25.0-34.0); Mean Corpuscular Hgb Conc 34.2 g/dL (32.0-36.0); Mean Platelet Volume 9.2 fL (9.4-12.4); Monocytes # (auto) 0.22 K/uL (0.11-0.59); Monocytes % (auto) 5.1 %; Neutrophils # (auto) 2.32 K/uL (1.40-6.50); Neutrophils % (auto) 53.5 %; Platelet Count 190 K/uL (130-400); RDW Standard Deviation 47.3 fL (36.4-46.3); Red Blood Count 3.81 M/uL (4.20-5.40); White Blood Count 4.33 K/ul (4.8-10.8)
[2023-07-06 05:13] LABS: Albumin Globulin Ratio 1.8 (0.9-2); Albumin Level 4.2 gm/dl (3.4-5.0); BUN Creatinine Ratio 10.4 (10-20); Bilirubin,Total 0.4 mg/dl (0.2-1.0); Calcium 7.9 mg/dl (8.6-10.3); Creatinine Clr Calc Pharmacy 100.4 ml/min; Est GFR (African American) 127.4 ml/min; Globulin 2.4 gm/dl (2.5-4.0); Potassium 4.3 mmol/L (3.5-5.1); Total Protein 6.6 gm/dl (6.0-8.3)
[2023-07-06] MEDS ORDERED: GABAPENTIN 600 MG TAB PO SCH ×2 (07:45→21:45)
[2023-07-06] MEDS ORDERED: chlordiazePOXIDE ALCOHOL WITHDRAWL 25MG PO ONE (08:00)
[2023-07-06] MEDS: ENOXAPARIN INJ 40 MG/0.4 ML SYR SQ SCH (08:03)
[2023-07-06] MEDS: busPIRone 5 MG TAB PO SCH ×3 (08:05→20:12)
[2023-07-06] MEDS: FOLIC ACID 1 MG TAB PO SCH (08:06)
[2023-07-06] MEDS: MULTIVITAMIN TAB PO SCH (08:07)
[2023-07-06] MEDS: THIAMINE HCL 100 MG TAB PO SCH (08:07)
[2023-07-06] MEDS: chlordiazePOXIDE HCl 25 MG CAP PO SCH ×3 (08:08→20:11)
--- NOTE | 2023-07-06 15:23 | 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 Note ---
Date of Service: July 06, 2023 Patient was seen and examined at bedside as a follow-up of alcohol withdrawal. Patient stated that she drank her last bottle of vodka 2 days ago. She has tremors in her hands at bedside exam. She states that she will go through detoxification process at this time. CM has been consulted for help with alcohol rehab placement. She drinks 1 bottle of vodka daily per her. Continue with alcohol withdrawal protocol/delirium tremens precautions. For detailed information on the patient, refer to today's H&P note.
[2023-07-06] MEDS: MELATONIN 3 MG TAB PO SCH (20:11)
[2023-07-06 22:28] LABS: Pregnancy Test, Serum Negative (Negative)
[2023-07-07] MEDS: chlordiazePOXIDE HCl 25 MG CAP PO SCH (02:36)
[2023-07-07] MEDS: LORazepam 2 MG/1 ML VIAL IV PRN ×4 (02:36→20:20)
[2023-07-07 06:50] LABS: Hematocrit (blood only) 33.1 % (37.0-47.0); Hemoglobin 11.4 g/dl (12.0-16.0); Mean Corpuscular Hemoglobin 33.7 pg (25.0-34.0); Mean Corpuscular Hgb Conc 34.4 g/dL (32.0-36.0); Mean Corpuscular Volume 97.9 fL (80.0-100.0); Mean Platelet Volume 9.8 fL (9.4-12.4); Platelet Count 145 K/uL (130-400); RDW Standard Deviation 46.5 fL (36.4-46.3); Red Blood Count 3.38 M/uL (4.20-5.40); White Blood Count 4.76 K/ul (4.8-10.8)
[2023-07-07 07:08] LABS: BUN Creatinine Ratio 14.5 (10-20); Calcium 8.2 mg/dl (8.6-10.3); Creatinine Clr Calc Pharmacy 122.3 ml/min; Est GFR (Non-African American) 117.3 ml/min; Magnesium 1.5 mg/dl (1.7-2.4); Phosphorus 2.5 mg/dl (2.5-4.9); Potassium 3.8 mmol/L (3.5-5.1)
[2023-07-07] MEDS: hydrOXYzine HCl 25 MG TAB PO PRN ×2 (07:51→20:22)
[2023-07-07] MEDS ORDERED: chlordiazePOXIDE HCl 25 MG CAP PO SCH (08:00)
[2023-07-07] MEDS: MAGNESIUM SULFATE / D5W 1 GM/100 ML BAG IV SCH ×2 (08:47→10:51)
[2023-07-07] MEDS: THIAMINE HCL 100 MG TAB PO SCH (08:48)
[2023-07-07] MEDS: MULTIVITAMIN TAB PO SCH (08:48)
[2023-07-07] MEDS: FOLIC ACID 1 MG TAB PO SCH (08:48)
[2023-07-07] MEDS: busPIRone 5 MG TAB PO SCH ×3 (08:48→20:23)
[2023-07-07] MEDS: ENOXAPARIN INJ 40 MG/0.4 ML SYR SQ SCH (08:48)
[2023-07-07] MEDS: diazePAM 5 MG TABLET PO SCH ×2 (11:21→18:06)
--- NOTE | 2023-07-07 14:49 | Hospitalist Progress Note ---
Date of Service July 07, 2023 Assessment & Plan (1) Alcohol withdrawal: Plan: Patient has history of alcohol use disorder. Presented for detox; last drink was 2 days prior to admission. Labs reviewed; noted to have leukopenia, anemia Magnesium1.5 During the within normal limits Started on alcohol withdrawal protocol; on Valium 5 mg every 6 hours; will continue to monitor response; Seizure precautions Chronic conditions; anxiety/mood disorder, currently on Buspirone, not any worse as per patient Left breast cyst, outpatient biopsy procedure contemplated next week ongoing vape use Please note the above document was generated using voice recognition software. It may contain grammatical, syntax or spelling errors. Any formal questions or concerns about the content, text or information contained within the body of this dictation should be directly addressed to the provider for clarification Admission and Anticipated Discharge Date Admission Date: July 06, 2023 Subjective Patient seen and examined at bedside. She is reporting tremors in bilateral hands and reports of feeling anxious. No fever or chills. Vitals stable Review of Systems Review of Systems: All systems reviewed & are unremarkable except as noted in Subjective Physical Exam Physical Exam: Constitutional: Alert orient x3, reports tremors and feeling anxious. Respiratory: normal respiratory effort, lungs clear to auscultation, no wheeze, rales, rhonchi. Normal insp/exp effort, no accessory muscle use Cardiovascular: RRR, no murmur, no edema Vessels: no JVD or carotid bruit Chest: normal inspection of chest Abdomen: normal bowel sounds, soft, nontender, no hepatosplenomegaly Musculoskeletal: no cyanosis or clubbing, extremities motor strength 5/5 Skin: no rashes, warm and dry normal turgor Neurologic: PERRL, EOMI, accommodation nl, no face palsy, no dysarthria CN's II- XI intact bilaterally and moves all extremities Psychiatric: A+Ox3, Results & Data Results & Data Vital Signs (Past 12 Hours) Vital Signs Temp Pulse Pulse Resp BP BP Pulse Ox 07/07/23 11:23 36.9 C 81 16 101/69 98 07/07/23 07:30 36.6 C 62 16 108/72 98 07/07/23 07:06 73 07/07/23 04:03 37.0 C 82 18 99/69 L 98 O2 Del Method 07/07/23 11:23 Room Air 07/07/23 07:30 Room Air 07/07/23 07:06 07/07/23 04:03 Room Air Laboratory Results Laboratory Results WBC 4.76 K/ul (4.8-10.8) L 07/07/23 05:41 RBC 3.38 M/uL (4.20-5.40) L 07/07/23 05:41 Hgb 11.4 g/dl (12.0-16.0) L 07/07/23 05:41 Hct 33.1 % (37.0-47.0) L 07/07/23 05:41 MCV 97.9 fL (80.0-100.0) 07/07/23 05:41 MCH 33.7 pg (25.0-34.0) 07/07/23 05:41 MCHC 34.4 g/dL (32.0-36.0) 07/07/23 05:41 RDW Std Deviation 46.5 fL (36.4-46.3) H 07/07/23 05:41 RDW Coeff of Edgar 13.0 % (11.5-14.5) 07/07/23 05:41 Plt Count 145 K/uL (130-400) 07/07/23 05:41 MPV 9.8 fL (9.4-12.4) 07/07/23 05:41 Immature Gran % (Auto) 0.7 % 07/06/23 04:08 Neut % (Auto) 53.5 % 07/06/23 04:08 Lymph % (Auto) 37.9 % 07/06/23 04:08 [place] % (Auto) 5.1 % 07/06/23 04:08 Eos % (Auto) 2.3 % 07/06/23 04:08 Baso % (Auto) 0.5 % 07/06/23 04:08 Neut # (Auto) 2.32 K/uL (1.40-6.50) 07/06/23 04:08 Lymph # (Auto) 1.64 K/uL (1.20-3.40) 07/06/23 04:08 [place] # (Auto) 0.22 K/uL (0.11-0.59) 07/06/23 04:08 Eos # (Auto) 0.10 K/uL (0.00-0.50) 07/06/23 04:08 Baso # (Auto) 0.02 K/uL (0.00-0.20) 07/06/23 04:08 Immature Gran # (Auto) 0.03 K/uL (0.01-0.20) 07/06/23 04:08 PT 10.3 Seconds (9.0-12.0) 07/05/23 21:40 INR 0.9 (0.9-1.1) 07/05/23 21:40 Sodium 138 mmol/L (136-145) 07/07/23 05:41 Potassium 3.8 mmol/L (3.5-5.1) 07/07/23 05:41 Chloride 105 mmol/L (98-107) 07/07/23 05:41 Carbon Dioxide 28 mmol/L (21-32) 07/07/23 05:41 Anion Gap 5 (3-11) 07/07/23 05:41 BUN 8 mg/dl (6-23) 07/07/23 05:41 Creatinine 0.55 mg/dl (0.6-1.2) L 07/07/23 05:41 Est Cr Clr Drug Dosing 122.3 ml/min 07/07/23 05:41 Est GFR ( Amer) 136.0 ml/min 07/07/23 05:41 Est GFR (Non-Af Amer) 117.3 ml/min 07/07/23 05:41 BUN/Creatinine Ratio 14.5 (10-20) 07/07/23 05:41 Glucose 110 mg/dl (70-99(Fasting)) H 07/07/23 05:41 Calcium 8.2 mg/dl (8.6-10.3) L 07/07/23 05:41 Phosphorus 2.5 mg/dl (2.5-4.9) 07/07/23 05:41 Magnesium 1.5 mg/dl (1.7-2.4) L 07/07/23 05:41 Total Bilirubin 0.4 mg/dl (0.2-1.0) 07/06/23 04:08 AST 47 U/L (13-39) H 07/06/23 04:08 ALT 23 U/L (7-52) 07/06/23 04:08 Alkaline Phosphatase 59 U/L (34-104) 07/06/23 04:08 Ammonia 48.0 umol/L (18-72) 07/05/23 23:15 Total Protein 6.6 gm/dl (6.0-8.3) 07/06/23 04:08 Albumin 4.2 gm/dl (3.4-5.0) 07/06/23 04:08 Globulin 2.4 gm/dl (2.5-4.0) L 07/06/23 04:08 Albumin/Globulin Ratio 1.8 (0.9-2) 07/06/23 04:08 HCG, Qual Negative (Negative) 07/06/23 20:43 Urine Color Yellow 07/06/23 00:40 Urine Appearance Clear (Clear) 07/06/23 00:40 Urine pH 5.0 (4.5-7.5) 07/06/23 00:40 Ur Specific [place] 1.010 (1.000-1.030) 07/06/23 00:40 Urine Protein Negative (Negative) 07/06/23 00:40 Urine Glucose (UA) Negative (Negative) 07/06/23 00:40 Urine Ketones 2+ (Negative) H 07/06/23 00:40 Urine Blood Trace (Negative) H 07/06/23 00:40 Urine Nitrite Negative (Negative) 07/06/23 00:40 Urine Bilirubin Negative (Negative) 07/06/23 00:40 Urine Urobilinogen Negative (Negative) 07/06/23 00:40 Ur Leukocyte Esterase Negative (Negative) 07/06/23 00:40 Urine WBC (Auto) 1-5 /hpf (0-5) 07/06/23 00:40 Urine RBC (Auto) 0-4 /hpf (0-4) 07/06/23 00:40 U Hyaline Cast (Auto) 0 /lpf (0-5) 07/06/23 00:40 U Epithel Cells (Auto) 10-20 /lpf (0-5) H 07/06/23 00:40 Urine Bacteria (Auto) Negative (Negative) 07/06/23 00:40 Salicylates < 3.0 mg/dl (3.0-30) L 07/05/23 23:15 Urine Opiates Screen Neg (Neg) 07/06/23 00:40 Ur Methadone, Qual Neg (Neg) 07/06/23 00:40 Acetaminophen < 3 ug/ml (10-30) L 07/05/23 23:15 Urine Barbiturates Neg (Neg) 07/06/23 00:40 Ur Phencyclidine (PCP) Neg (Neg) 07/06/23 00:40 U Amphetamin/Meth Scrn Neg (Neg) 07/06/23 00:40 MDMA (Ecstasy) Screen Neg (Neg) 07/06/23 00:40 U Benzodiazepines Scrn Neg (Neg) 07/06/23 00:40 Ur Cocaine Metabolite Neg (Neg) 07/06/23 00:40 U Marijuana (THC) Screen Neg (Neg) 07/06/23 00:40 Ethyl Alcohol mg/dL 456.1 mg/dl (<10.0) H 07/05/23 21:40
[2023-07-07] MEDS ORDERED: GABAPENTIN 600MG ALCOHOL WITHDRAWAL LOAD PO SCH (15:45)
[2023-07-07] MEDS ORDERED: GABAPENTIN 600 MG TAB PO ONE (16:00)
[2023-07-07] MEDS: MELATONIN 3 MG TAB PO SCH (20:21)
[2023-07-07] MEDS: GABAPENTIN 100 MG CAP PO SCH (20:25)
[2023-07-08] MEDS: diazePAM 5 MG TABLET PO SCH ×4 (00:14→20:52)
[2023-07-08] MEDS ORDERED: GABAPENTIN 600 MG TAB PO SCH ×2 (01:45→16:00)
[2023-07-08] MEDS: GABAPENTIN 100 MG CAP PO SCH (04:36)
[2023-07-08 06:09] LABS: Basophils # (auto) 0.02 K/uL (0.00-0.20); Basophils % (auto) 0.4 %; Eosinophils % (auto) 6.7 %; Hematocrit (blood only) 35.1 % (37.0-47.0); Hemoglobin 12.6 g/dl (12.0-16.0); Immature Granulocytes # (auto) 0.01 K/uL (0.01-0.20); Immature Granulocytes % (auto) 0.2 %; Lymphocytes # (auto) 1.73 K/uL (1.20-3.40); Lymphocytes % (auto) 38.8 %; Mean Corpuscular Hemoglobin 34.5 pg (25.0-34.0); Mean Corpuscular Hgb Conc 35.9 g/dL (32.0-36.0); Mean Corpuscular Volume 96.2 fL (80.0-100.0); Mean Platelet Volume 9.8 fL (9.4-12.4); Monocytes # (auto) 0.25 K/uL (0.11-0.59); Monocytes % (auto) 5.6 %; Neutrophils # (auto) 2.15 K/uL (1.40-6.50); Neutrophils % (auto) 48.3 %; Platelet Count 147 K/uL (130-400); RDW Coefficient of Variation 12.7 % (11.5-14.5); RDW Standard Deviation 45.4 fL (36.4-46.3); Red Blood Count 3.65 M/uL (4.20-5.40); White Blood Count 4.46 K/ul (4.8-10.8)
[2023-07-08 06:34] LABS: BUN Creatinine Ratio 16.9 (10-20); Calcium 9.1 mg/dl (8.6-10.3); Creatinine Clr Calc Pharmacy 103.5 ml/min; Est GFR (African American) 128.7 ml/min; Est GFR (Non-African American) 111.1 ml/min; Potassium 3.9 mmol/L (3.5-5.1)
[2023-07-08] MEDS ORDERED: diazePAM 5 MG TABLET PO SCH (08:30)
[2023-07-08] MEDS: FOLIC ACID 1 MG TAB PO SCH (09:29)
[2023-07-08] MEDS: THIAMINE HCL 100 MG TAB PO SCH (09:29)
[2023-07-08] MEDS: hydrOXYzine HCl 25 MG TAB PO PRN ×2 (09:29→20:52)
[2023-07-08] MEDS: MULTIVITAMIN TAB PO SCH (09:29)
[2023-07-08] MEDS: busPIRone 5 MG TAB PO SCH ×3 (09:29→20:52)
[2023-07-08] MEDS: ENOXAPARIN INJ 40 MG/0.4 ML SYR SQ SCH (09:30)
--- NOTE | 2023-07-08 10:41 | Hospitalist Progress Note ---
Date of Service July 08, 2023 Assessment & Plan (1) Alcohol withdrawal: Plan: Patient has history of alcohol use disorder. Presented for detox; last drink was 2 days prior to admission. Labs reviewed; noted to have leukopenia, anemia LFTs within normal limits. Started on alcohol withdrawal protocol; on tapering dose of Valium. Currently on 5 mg every 8 hours. Continue gabapentin. Seizure precautions Chronic conditions; anxiety/mood disorder, currently on Buspirone, not any worse as per patient Left breast cyst, outpatient biopsy procedure contemplated next week ongoing vape use Chronic issues; Mood disordercontinue on BuSpar and amitriptyline Full code DVT prophylaxis Lovenox Dispopatient interested in inpatient rehab. Case management on board. Appreciate assistance. Please note the above document was generated using voice recognition software. It may contain grammatical, syntax or spelling errors. Any formal questions or concerns about the content, text or information contained within the body of this dictation should be directly addressed to the provider for clarification Admission and Anticipated Discharge Date Admission Date: July 06, 2023 Subjective reports that her symptoms have improved compared to yesterday. Still reporting some tremors Significant events overnight Review of Systems Review of Systems: All systems reviewed & are unremarkable except as noted in Subjective Physical Exam Physical Exam: Constitutional: Alert orient x3, reports tremors and feeling anxious. Respiratory: normal respiratory effort, lungs clear to auscultation, no wheeze, rales, rhonchi. Normal insp/exp effort, no accessory muscle use Cardiovascular: RRR, no murmur, no edema Vessels: no JVD or carotid bruit Chest: normal inspection of chest Abdomen: normal bowel sounds, soft, nontender, no hepatosplenomegaly Musculoskeletal: no cyanosis or clubbing, extremities motor strength 5/5 Skin: no rashes, warm and dry normal turgor Neurologic: PERRL, EOMI, accommodation nl, no face palsy, no dysarthria CN's II- XI intact bilaterally and moves all extremities Psychiatric: A+Ox3, Results & Data Results & Data Vital Signs (Past 12 Hours) Vital Signs Temp Pulse Resp BP BP Pulse Ox O2 Del Method 07/08/23 07:36 36.7 C 66 16 106/73 98 Room Air 07/07/23 23:56 36.7 C 81 20 107/75 97 Room Air Laboratory Results Laboratory Results WBC 4.46 K/ul (4.8-10.8) L 07/08/23 05:46 RBC 3.65 M/uL (4.20-5.40) L 07/08/23 05:46 Hgb 12.6 g/dl (12.0-16.0) 07/08/23 05:46 Hct 35.1 % (37.0-47.0) L 07/08/23 05:46 MCV 96.2 fL (80.0-100.0) 07/08/23 05:46 MCH 34.5 pg (25.0-34.0) H 07/08/23 05:46 MCHC 35.9 g/dL (32.0-36.0) 07/08/23 05:46 RDW Std Deviation 45.4 fL (36.4-46.3) 07/08/23 05:46 RDW Coeff of Edgar 12.7 % (11.5-14.5) 07/08/23 05:46 Plt Count 147 K/uL (130-400) 07/08/23 05:46 MPV 9.8 fL (9.4-12.4) 07/08/23 05:46 Immature Gran % (Auto) 0.2 % 07/08/23 05:46 Neut % (Auto) 48.3 % 07/08/23 05:46 Lymph % (Auto) 38.8 % 07/08/23 05:46 [place] % (Auto) 5.6 % 07/08/23 05:46 Eos % (Auto) 6.7 % 07/08/23 05:46 Baso % (Auto) 0.4 % 07/08/23 05:46 Neut # (Auto) 2.15 K/uL (1.40-6.50) 07/08/23 05:46 Lymph # (Auto) 1.73 K/uL (1.20-3.40) 07/08/23 05:46 [place] # (Auto) 0.25 K/uL (0.11-0.59) 07/08/23 05:46 Eos # (Auto) 0.30 K/uL (0.00-0.50) 07/08/23 05:46 Baso # (Auto) 0.02 K/uL (0.00-0.20) 07/08/23 05:46 Immature Gran # (Auto) 0.01 K/uL (0.01-0.20) 07/08/23 05:46 PT 10.3 Seconds (9.0-12.0) 07/05/23 21:40 INR 0.9 (0.9-1.1) 07/05/23 21:40 Sodium 137 mmol/L (136-145) 07/08/23 05:46 Potassium 3.9 mmol/L (3.5-5.1) 07/08/23 05:46 Chloride 105 mmol/L (98-107) 07/08/23 05:46 Carbon Dioxide 26 mmol/L (21-32) 07/08/23 05:46 Anion Gap 6 (3-11) 07/08/23 05:46 BUN 11 mg/dl (6-23) 07/08/23 05:46 Creatinine 0.65 mg/dl (0.6-1.2) 07/08/23 05:46 Est Cr Clr Drug Dosing 103.5 ml/min 07/08/23 05:46 Est GFR ( Amer) 128.7 ml/min 07/08/23 05:46 Est GFR (Non-Af Amer) 111.1 ml/min 07/08/23 05:46 BUN/Creatinine Ratio 16.9 (10-20) 07/08/23 05:46 Glucose 106 mg/dl (70-99(Fasting)) H 07/08/23 05:46 Calcium 9.1 mg/dl (8.6-10.3) 07/08/23 05:46 Phosphorus 2.5 mg/dl (2.5-4.9) 07/07/23 05:41 Magnesium 1.5 mg/dl (1.7-2.4) L 07/07/23 05:41 Total Bilirubin 0.4 mg/dl (0.2-1.0) 07/06/23 04:08 AST 47 U/L (13-39) H 07/06/23 04:08 ALT 23 U/L (7-52) 07/06/23 04:08 Alkaline Phosphatase 59 U/L (34-104) 07/06/23 04:08 Ammonia 48.0 umol/L (18-72) 07/05/23 23:15 Total Protein 6.6 gm/dl (6.0-8.3) 07/06/23 04:08 Albumin 4.2 gm/dl (3.4-5.0) 07/06/23 04:08 Globulin 2.4 gm/dl (2.5-4.0) L 07/06/23 04:08 Albumin/Globulin Ratio 1.8 (0.9-2) 07/06/23 04:08 HCG, Qual Negative (Negative) 07/06/23 20:43 Urine Color Yellow 07/06/23 00:40 Urine Appearance Clear (Clear) 07/06/23 00:40 Urine pH 5.0 (4.5-7.5) 07/06/23 00:40 Ur Specific [place] 1.010 (1.000-1.030) 07/06/23 00:40 Urine Protein Negative (Negative) 07/06/23 00:40 Urine Glucose (UA) Negative (Negative) 07/06/23 00:40 Urine Ketones 2+ (Negative) H 07/06/23 00:40 Urine Blood Trace (Negative) H 07/06/23 00:40 Urine Nitrite Negative (Negative) 07/06/23 00:40 Urine Bilirubin Negative (Negative) 07/06/23 00:40 Urine Urobilinogen Negative (Negative) 07/06/23 00:40 Ur Leukocyte Esterase Negative (Negative) 07/06/23 00:40 Urine WBC (Auto) 1-5 /hpf (0-5) 07/06/23 00:40 Urine RBC (Auto) 0-4 /hpf (0-4) 07/06/23 00:40 U Hyaline Cast (Auto) 0 /lpf (0-5) 07/06/23 00:40 U Epithel Cells (Auto) 10-20 /lpf (0-5) H 07/06/23 00:40 Urine Bacteria (Auto) Negative (Negative) 07/06/23 00:40 Salicylates < 3.0 mg/dl (3.0-30) L 07/05/23 23:15 Urine Opiates Screen Neg (Neg) 07/06/23 00:40 Ur Methadone, Qual Neg (Neg) 07/06/23 00:40 Acetaminophen < 3 ug/ml (10-30) L 07/05/23 23:15 Urine Barbiturates Neg (Neg) 07/06/23 00:40 Ur Phencyclidine (PCP) Neg (Neg) 07/06/23 00:40 U Amphetamin/Meth Scrn Neg (Neg) 07/06/23 00:40 MDMA (Ecstasy) Screen Neg (Neg) 07/06/23 00:40 U Benzodiazepines Scrn Neg (Neg) 07/06/23 00:40 Ur Cocaine Metabolite Neg (Neg) 07/06/23 00:40 U Marijuana (THC) Screen Neg (Neg) 07/06/23 00:40 Ethyl Alcohol mg/dL 456.1 mg/dl (<10.0) H 07/05/23 21:40
[2023-07-08] MEDS: LORazepam 2 MG/1 ML VIAL IV PRN (18:31)
[2023-07-08] MEDS: MELATONIN 3 MG TAB PO SCH (20:51)
[2023-07-09] MEDS: diazePAM 5 MG TABLET PO SCH (06:00)
[2023-07-09 06:15] LABS: Basophils # (auto) 0.02 K/uL (0.00-0.20); Basophils % (auto) 0.4 %; Eosinophils # (auto) 0.26 K/uL (0.00-0.50); Eosinophils % (auto) 5.1 %; Hematocrit (blood only) 35.7 % (37.0-47.0); Hemoglobin 12.5 g/dl (12.0-16.0); Immature Granulocytes # (auto) 0.01 K/uL (0.01-0.20); Immature Granulocytes % (auto) 0.2 %; Lymphocytes # (auto) 1.81 K/uL (1.20-3.40); Lymphocytes % (auto) 35.8 %; Mean Platelet Volume 10.3 fL (9.4-12.4); Monocytes # (auto) 0.28 K/uL (0.11-0.59); Monocytes % (auto) 5.5 %; Neutrophils # (auto) 2.68 K/uL (1.40-6.50); Platelet Count 150 K/uL (130-400); RDW Coefficient of Variation 12.6 % (11.5-14.5); RDW Standard Deviation 45.1 fL (36.4-46.3); Red Blood Count 3.68 M/uL (4.20-5.40); White Blood Count 5.06 K/ul (4.8-10.8)
[2023-07-09 06:29] LABS: BUN Creatinine Ratio 22.5 (10-20); Calcium 9.2 mg/dl (8.6-10.3); Creatinine Clr Calc Pharmacy 94.8 ml/min; Est GFR (African American) 123.5 ml/min; Est GFR (Non-African American) 106.5 ml/min; Potassium 3.8 mmol/L (3.5-5.1)
[2023-07-09] MEDS ORDERED: chlordiazePOXIDE HCl 5 MG CAP PO SCH (08:00)
[2023-07-09] MEDS ORDERED: diazePAM 5 MG TABLET PO SCH (08:00)
[2023-07-09] MEDS: FOLIC ACID 1 MG TAB PO SCH (08:10)
[2023-07-09] MEDS: MULTIVITAMIN TAB PO SCH (08:10)
[2023-07-09] MEDS: ENOXAPARIN INJ 40 MG/0.4 ML SYR SQ SCH (08:10)
[2023-07-09] MEDS: busPIRone 5 MG TAB PO SCH (08:10)
[2023-07-09] MEDS: THIAMINE HCL 100 MG TAB PO SCH (08:11)
--- NOTE | 2023-07-09 12:49 | Discharge Summary ---
Date of Service July 09, 2023 Admission HPI Per Admitting Provider History obtained from patient and records. Medical history significant for anxiety/mood disorder, fatty liver as per records, chronic anemia (baseline hemoglobin of 11 ), alcohol abuse, left breast cyst, ongoing vape use. Last confinement 2 months ago for alcohol withdrawal. Patient completed Librium taper on discharge. Patient refused alcohol rehab placement as per case management documentation. Patient started drinking again 3 weeks after discharge. Mood not the best but patient denies suicidality. Buspirone started by PCP outpatient. Patient mother worried about patient in the last week because of heavy drinking. Nausea and emesis without abdominal pain. No chest pain, no SOB, no headache, no seizures. Patient brought to the ER for evaluation by mother for evaluation and possible rehab placement after detox. Medical Historyas above Surgical History : Hand surgery, dental surgery Family History : Alcoholism, A-fib, dementia Personal/Social history : Ongoing vape use, alcohol abuse, currently unemployed Admission Exam Per Admitting Provider GENERAL: Pleasant, tremulous, no respiratory distress SKIN: Pallor, warm HEENT: Pale palpebral conjunctivae, no ptosis, dry buccal mucosa NECK : Supple, no tenderness CHEST : CTA, no tenderness HEART : RRR, no obvious murmurs ABDOMEN: Some distention, nontender EXTREMITIES : No LE swelling/tenderness, no other conspicuous deformities noted NEUROLOGIC : Coherent, no facial asymmetry, tremulous, gait and stance not assessed Principal Diagnosis Alcohol withdrawal Discharge Exam Constitutional: Alert orient x3, no tremors Respiratory: normal respiratory effort, lungs clear to auscultation, no wheeze, rales, rhonchi. Normal insp/exp effort, no accessory muscle use Cardiovascular: RRR, no murmur, no edema Vessels: no JVD or carotid bruit Chest: normal inspection of chest Abdomen: normal bowel sounds, soft, nontender, no hepatosplenomegaly Musculoskeletal: no cyanosis or clubbing, extremities motor strength 5/5 Skin: no rashes, warm and dry normal turgor Neurologic: PERRL, EOMI, accommodation nl, no face palsy, no dysarthria CN's II- XI intact bilaterally and moves all extremities Psychiatric: A+Ox3, Discharge Data Allergies Allergy/AdvReac Type Severity Reaction Status Date / Time No Known Drug Allergies Allergy Verified 02/26/21 09:56 Consultations 07/06/23 01:19 ED Decision to Admit Stat Hospital Course (1) Alcohol withdrawal: Patient has history of alcohol use disorder. Presented for detox; last drink was 2 days prior to admission. LFTs within normal limits. During the hospitalization, started on alcohol withdrawal protocol with Valium and gabapentin. She was also given Ativan as needed Patient symptoms improved throughout the hospitalization. Did not have any sei zure or delirium tremens. At discharge, patient was prescribed tapering dose of gabapentin, folic acid and thiamine. No signs or symptoms of withdrawal at the time of discharge. Patient is interested in outpatient addiction medicine treatment for alcohol use disorder. Patient to follow-up with PCP. Please note the above document was generated using voice recognition software. It may contain grammatical, syntax or spelling errors. Any formal questions or concerns about the content, text or information contained within the body of this dictation should be directly addressed to the provider for clarification Total Time Total Time Spent Total Time Spent (In Minutes): 45 Total Time Includes: Examination of the Patient, Discharge Planning, Medication Reconciliation, 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 With Other Providers and Other Discharge Plan Discharge Items Patient Disposition: Home - Self-Care Reason For Visit: ETOH WITHDRAWAL Discharge Diagnosis: Alcohol withdrawal Activity: Resume your previous activity Non-emergency contact: Primary Care Provider Call non-emergency contact if: you have any medication questions and your symptoms worsen Follow-up/Referrals: Aj Gaston MD [Primary Care Provider] - (Date & Time 07/14/2023 2:00 PM Provider Aj Gaston III, MD Department [facility] ) Diet: Regular Addtl Attending Provider Instructions: You were admitted to the hospital due to alcohol withdrawal. You underwent detox with Valium, Ativan and gabapentin. You are prescribed gabapentin to complete the course. Please take it as followin) take 400 mg (4 tablets) once a day for 1 day 2) take 200mg ( 2 tablets) once a day for 1 day. An appointment with your primary care doctor will be set up for you. Please discussed regarding referral to addiction medicine for long-term care of alcohol use disorder. Pending Studies at Discharge: No Stand-Alone Forms: My [employer], Smoking Cessation Medications and DC Order Prescriptions: New gabapentin 100 mg capsule See Taper PO BID Qty: 6 0RF Taper: Taper, Blank 400 mg DAILY for 1 Day 200 mg DAILY for 1 Day Continued ondansetron HCl 4 mg tablet 4 mg PO Q6 PRN (Reason: Nausea) acetaminophen [Tylenol Extra Strength] 500 mg Tablet 500 mg PO Q6H PRN (Reason: mild pain (scale score 1-4)) Qty: 30 0RF diclofenac sodium [Voltaren Arthritis Pain] 1 % Gel 2 g EXT Q6 Qty: 100 0RF amitriptyline 50 mg tablet 25 mg PO HS PRN (Reason: Pain) Rx Instructions: neuropathy hydroxyzine HCl 25 mg tablet 25 mg PO Q6H PRN (Reason: Anxiety) melatonin 10 mg tablet 10 mg PO HS buspirone 10 mg tablet 10 mg PO TID Ventolin HFA 90 mcg 2 puff inhalation QID PRN (Reason: Wheezing) thiamine HCl (vitamin B1) 100 mg Tablet 100 mg PO QAM Qty: 30 0RF folic acid 1 mg Tablet 1 mg PO QAM Qty: 30 0RF Discharge Orders: Discharge Order (Routine); Ordered 07/09/23 Ordered By: Sotero Melara/Other Patient Handouts: Gabapentin Oral Tablet, Alcohol Withdrawal: What to Expect Admission Data Admit Date/Time: 07/06/23 01:38 Attending Provider: Sotero Porter Admit Provider: Jimi Zavala Primary Care Provider: Aj Gaston Other Providers: Priscila Lewis ; Jimi Zavala Other Interventions: Discharge Summary Assessment (RN) Last Done: 07/09/23 10:10
[2023-07-09] MEDS ORDERED: GABAPENTIN 600 MG TAB PO SCH (13:45)
[2023-07-09] MEDS ORDERED: GABAPENTIN 400 MG CAP PO SCH (16:00)
[2023-07-10] MEDS ORDERED: GABAPENTIN 100 MG CAP PO SCH (16:00)
== END 2023-07-09 12:38 | disposition home or self-care (01) | DRG 897 ==
LOC: ED 20:19 → SUATTDRO 07-06 01:38 → EDINP 07-06 01:38 → 2N 07-06 18:16

== ENCOUNTER 2023-08-13 19:07 | Inpatient (IN) ==
[2023-08-13] MEDS ORDERED: ONDANSETRON INJ 2 MG/ML 2 ML VIAL IV STA (19:35)
[2023-08-13] MEDS ORDERED: SODIUM CHLORIDE 0.9% 1,000 ML IV ONE (19:36)
[2023-08-13] MEDS ORDERED: MULTI-VITAMIN INFUSION 10 ML, THIAMINE HCL 100 MG, FOLIC ACID 1 MG in SODIUM CHLORIDE 0... IV ONE (19:36)
[2023-08-13 19:55] LABS: Basophils # (auto) 0.04 K/uL (0.00-0.20); Basophils % (auto) 0.8 %; Eosinophils # (auto) 0.09 K/uL (0.00-0.50); Eosinophils % (auto) 1.7 %; Hematocrit (blood only) 43.3 % (37.0-47.0); Hemoglobin 15.6 g/dl (12.0-16.0); Immature Granulocytes # (auto) 0.03 K/uL (0.01-0.20); Immature Granulocytes % (auto) 0.6 %; Lymphocytes # (auto) 2.08 K/uL (1.20-3.40); Lymphocytes % (auto) 39.2 %; Mean Corpuscular Hemoglobin 33.3 pg (25.0-34.0); Mean Corpuscular Volume 92.3 fL (80.0-100.0); Mean Platelet Volume 9.6 fL (9.4-12.4); Monocytes # (auto) 0.27 K/uL (0.11-0.59); Monocytes % (auto) 5.1 %; Neutrophils % (auto) 52.6 %; Platelet Count 189 K/uL (130-400); RDW Coefficient of Variation 13.7 % (11.5-14.5); RDW Standard Deviation 46.1 fL (36.4-46.3); Red Blood Count 4.69 M/uL (4.20-5.40); White Blood Count 5.31 K/ul (4.8-10.8)
--- NOTE | 2023-08-13 19:57 | Emergency Department Note ---
ED Provider Note History of Present Illness Chief Complaint: Alcohol Withdrawal Stated Complaint: NAUSEA, VOMIT Time Seen by Provider: 08/13/23 19:20 Source: patient Mode of arrival: ambulatory Limitations: no limitations This patient is a 43-year-old female who presents to emergency department for evaluation of nausea/vomiting and possible alcohol withdrawal. Patient states that she drinks alcohol regularly. She drinks 10-15 shots of vodka daily. She states that last week, she had flu symptoms. She had started feeling better but states that she drink alcohol excessively 3 days ago and began vomiting after that. She has been unable to keep anything down since then. She initially stated that she had not drink any alcohol since she started vomiting, but later admitted that she had about 5 shots of vodka today, but did not want her mom to know this. She has had alcohol withdrawal in the past, denies history of DTs or seizures. She denies any abdominal pain or fevers. Home Medications Medication Instructions Recorded Confirmed Type ondansetron HCl 4 mg tablet 4 mg PO Q6 PRN Nausea 05/05/23 05/05/23 History acetaminophen 500 mg tablet 500 mg PO Q6H PRN mild pain (scale 05/10/23 07/06/23 Rx (Tylenol Extra Strength) score 1-4) #30 tabs diclofenac sodium 1 % topical gel 2 g EXT Q6 Left ankle pain #100 05/10/23 07/06/23 Rx (Voltaren Arthritis Pain) grams Ventolin HFA 2 puff inhalation QID PRN Wheezing 07/06/23 07/06/23 History amitriptyline 50 mg tablet 25 mg PO HS PRN Pain 07/06/23 07/06/23 History buspirone 10 mg tablet 10 mg PO TID 07/06/23 07/06/23 History hydroxyzine HCl 25 mg tablet 25 mg PO Q6H PRN Anxiety 07/06/23 07/06/23 History melatonin 10 mg PO HS 07/06/23 07/06/23 History folic acid 1 mg tablet 1 mg PO QAM #30 tabs 07/09/23 Rx gabapentin 100 mg capsule See Taper PO BID #6 caps 07/09/23 Rx thiamine HCl (vitamin B1) 100 mg 100 mg PO QAM #30 tabs 07/09/23 Rx tablet Allergies Allergy/AdvReac Type Severity Reaction Status Date / Time No Known Drug Allergies Allergy Verified 02/26/21 09:56 Past Med/Surg History Medical History Alcohol withdrawal Abnormal uterine bleeding ADD (attention deficit disorder) Insomnia Restless leg Depression Anxiety Alcohol dependence Fatty liver Anxiety and depression Surgical History S/P nasal surgery septoplasty and rhinoplasty-both w/Dr. Castañeda H/O wisdom tooth extraction Family History Aunt Breast cancer, Onset Age: 65 paternal Asthma maternal Grandfather (Paternal) Prostate cancer Aunt Allergies maternal Family/Other Allergies cousins Asthma cousins Other No family history of adverse response to anesthesia No family history of bleeding disorder Denies family history of Ovarian cancer Colorectal cancer Social History Smoking Status: Current every day smoker Tobacco Type: E-cigarettes / Vaping Age Started Using Tobacco: 20; packs per day: 0.5; Second Hand Exposure: No; Do You Dip or Chew Tobacco: No; Hx Alcohol Use: Yes Hx Substance Use: No Preferred Language: Tajik 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 Ability: Effective Engineer Sergeant Required: No Beliefs That Will Affect Care: Spiritual marital status: Single Current Living Situation: Alone Current Living Situation Comment: Unknown- patient unable to answer Feels Safe at Home: Yes Assistive Devices: None Physical Exam Vital Signs Vital Signs - 24 hr 08/13/23 19:14 08/13/23 19:25 08/13/23 19:27 Temperature 36.7 C Temperature Source Temporal Artery Scan Pulse Rate 98 H 106 H 91 H Pulse Rate from SpO2 Sensor 108 H Pulse Rhythm Regular Pulse Strength Normal Respiratory Rate 17 15 Respiratory Effort / Characteristics Non-Labored Spontaneous Respiratory Depth Normal Respiratory Pattern Regular Blood Pressure 111/74 Blood Pressure Mean 86 Blood Pressure Position Sitting Pulse Oximetry 95 99 Oxygen Delivery Method Room Air Sepsis Recent Fever Within 48 Hours No Sepsis New/Unexplained Change in Mental Status N/A Sepsis Action Taken by Nursing No Action Required 08/13/23 19:30 08/13/23 19:39 08/13/23 20:00 Temperature Temperature Source Pulse Rate 113 H 81 Pulse Rate from SpO2 Sensor 84 Pulse Rhythm Pulse Strength Respiratory Rate 16 12 Respiratory Effort / Characteristics Respiratory Depth Respiratory Pattern Blood Pressure Blood Pressure Mean Blood Pressure Position Pulse Oximetry 98 99 Oxygen Delivery Method Room Air Room Air Sepsis Recent Fever Within 48 Hours Sepsis New/Unexplained Change in Mental Status Sepsis Action Taken by Nursing 08/13/23 20:30 08/13/23 21:00 08/13/23 21:30 Temperature Temperature Source Pulse Rate 83 90 93 H Pulse Rate from SpO2 Sensor 90 96 H Pulse Rhythm Pulse Strength Respiratory Rate 11 L 19 14 Respiratory Effort / Characteristics Respiratory Depth Respiratory Pattern Blood Pressure Blood Pressure Mean Blood Pressure Position Pulse Oximetry 98 95 Oxygen Delivery Method Room Air Room Air Sepsis Recent Fever Within 48 Hours Sepsis New/Unexplained Change in Mental Status Sepsis Action Taken by Nursing 08/13/23 22:00 08/13/23 22:30 08/13/23 23:19 Temperature Temperature Source Pulse Rate 86 89 83 Pulse Rate from SpO2 Sensor 86 88 83 Pulse Rhythm Pulse Strength Respiratory Rate 17 16 16 Respiratory Effort / Characteristics Respiratory Depth Respiratory Pattern Blood Pressure 106/72 Blood Pressure Mean 83 Blood Pressure Position Pulse Oximetry 98 97 Oxygen Delivery Method Room Air Sepsis Recent Fever Within 48 Hours Sepsis New/Unexplained Change in Mental Status Sepsis Action Taken by Nursing 08/13/23 23:30 08/13/23 23:32 Temperature Temperature Source Pulse Rate 85 85 Pulse Rate from SpO2 Sensor Pulse Rhythm Pulse Strength Respiratory Rate 17 Respiratory Effort / Characteristics Respiratory Depth Respiratory Pattern Blood Pressure 112/78 Blood Pressure Mean 88 Blood Pressure Position Pulse Oximetry 97 Oxygen Delivery Method Sepsis Recent Fever Within 48 Hours Sepsis New/Unexplained Change in Mental Status Sepsis Action Taken by Nursing VITALS: Vitals are noted on the nurse's note and reviewed by myself. GENERAL: This is a 43-year-old female, uncomfortable appearing, holding an emesis bag. SKIN: The skin was without rashes. EARS: External auditory canals clear, tympanic membranes pearly frey without erythema or effusion bilaterally. EYES: Pupils equal round and reactive to light and accommodation. MOUTH: Mucous membranes moist. Tonsils are not enlarged. Pharynx without erythema or exudate. NECK: Supple without nuchal rigidity. No lymphadenopathy. HEART: Regular rate and rhythm without murmurs gallops or rubs. LUNGS: Clear to auscultation bilaterally without wheezes, rales or rhonchi. ABDOMEN: Positive bowel sounds x 4. Soft, no tenderness to palpation. NEURO: Patient was alert and oriented to person place and time. Course Administered Medications Lactated Ringer's (Lr) 1,000 mls @ 80 mls/hr IV .[id number] STA Stop: 08/14/23 11:54 Last Admin: 08/14/23 01:25 Dose: 80 mls/hr Documented By: HALIE Discontinued Medications Gabapentin (Gabapentin 600 Mg Tab) 1,200 mg PO NOW STA Stop: 08/14/23 01:17 Last Admin: 08/14/23 01:25 Dose: 1,200 mg Documented By: HALIE Multivitamins 10 ml/ Thiamine HCl 100 mg/ Folic Acid 1 mg/Sodium Chloride 1,011.2 mls @ 500 mls/hr IV .Q2H2M ONE Stop: 08/13/23 21:37 Last Infusion: 08/13/23 22:53 Dose: Infused Documented By: Admin: 08/13/23 20:43 Dose: 500 mls/hr Documented By: YUDELKA Sodium Chloride (Nss) 1,000 mls @ 999 mls/hr IV .Q1H1M ONE Stop: 08/13/23 20:36 Last Infusion: 08/13/23 20:51 Dose: Infused Documented By: Admin: 08/13/23 19:50 Dose: 999 mls/hr Documented By: LILI Promethazine HCl (Phenergan) 12.5 mg in 50.5 mls @ 202 mls/hr IV NOW STA Stop: 08/13/23 21:54 Last Infusion: 08/13/23 22:15 Dose: Infused Documented By: Admin: 08/13/23 21:51 Dose: 202 mls/hr Documented By: LILI Acetaminophen (Ofirmev) 1,000 mg in 100 mls @ 400 mls/hr IV NOW STA Stop: 08/14/23 01:29 Last Admin: 08/14/23 01:25 Dose: 400 mls/hr Documented By: HALIE Ketorolac Tromethamine (Ketorolac Tromethamine 15 Mg/Ml Vial) 15 mg IV NOW STA Stop: 08/13/23 22:47 Last Admin: 08/13/23 22:50 Dose: 15 mg Documented By: LILI Lorazepam (Lorazepam 1 Mg/1 Ml Syr Ed Inj Use) 1 mg IV ONE STA Stop: 08/14/23 01:16 Last Admin: 08/14/23 01:25 Dose: 1 mg Documented By: HALIE Ondansetron HCl (Ondansetron Inj 2 Mg/Ml 2 Ml Vial) 4 mg IV NOW STA Stop: 08/13/23 19:36 Last Admin: 08/13/23 19:49 Dose: 4 mg Documented By: LILI Medical Decision Making Differential Diagnosis Gastroenteritis, food borne illness, infections, appendicitis, diverticulitis, inflammatory bowel disease, obstruction, GI bleed, biliary pathology, volvulus, as well as other pathologies. Home Medications was personally reviewed by me Laboratory Data Attestation: I reviewed the patient's lab results. 08/13/23 19:30 08/13/23 19:30 Lab Results 08/13/23 08/13/23 08/13/23 Range/Units 19:30 19:36 19:54 WBC 5.31 (4.8-10.8) K/ul RBC 4.69 (4.20-5.40) M/uL Hgb 15.6 (12.0-16.0) g/dl Hct 43.3 (37.0-47.0) % MCV 92.3 (80.0-100.0) fL MCH 33.3 (25.0-34.0) pg MCHC 36.0 (32.0-36.0) g/dL RDW Std Deviation 46.1 (36.4-46.3) fL RDW Coeff of Edgar 13.7 (11.5-14.5) % Plt Count 189 (130-400) K/uL MPV 9.6 (9.4-12.4) fL Immature Gran % (Auto) 0.6 % Neut % (Auto) 52.6 % Lymph % (Auto) 39.2 % [place] % (Auto) 5.1 % Eos % (Auto) 1.7 % Baso % (Auto) 0.8 % Neut # (Auto) 2.80 (1.40-6.50) K/uL Lymph # (Auto) 2.08 (1.20-3.40) K/uL [place] # (Auto) 0.27 (0.11-0.59) K/uL Eos # (Auto) 0.09 (0.00-0.50) K/uL Baso # (Auto) 0.04 (0.00-0.20) K/uL Immature Gran # (Auto) 0.03 (0.01-0.20) K/uL PT 10.2 (9.0-12.0) Seconds INR 0.9 (0.9-1.1) Sodium 134 L (136-145) mmol/L Potassium 4.0 (3.5-5.1) mmol/L Chloride 93 L (98-107) mmol/L Carbon Dioxide 20 L (21-32) mmol/L Anion Gap 21 H (3-11) BUN 11 (6-23) mg/dl Creatinine 0.70 (0.6-1.2) mg/dl Est Cr Clr Drug Dosing Not Reportable Est GFR ( Amer) 124.7 ml/min Est GFR (Non-Af Amer) 107.6 ml/min BUN/Creatinine Ratio 15.7 (10-20) Glucose 99 (70-99(Fasting)) mg/dl Calcium 10.0 (8.6-10.3) mg/dl Magnesium 2.4 (1.7-2.4) mg/dl Total Bilirubin 1.1 H (0.2-1.0) mg/dl AST 110 H (13-39) U/L ALT 37 (7-52) U/L Alkaline Phosphatase 85 (34-104) U/L Total Protein 9.0 H (6.0-8.3) gm/dl Albumin 5.3 H (3.4-5.0) gm/dl Globulin 3.7 (2.5-4.0) gm/dl Albumin/Globulin Ratio 1.4 (0.9-2) Lipase 120 H (11-82) U/L HCG, Qual Negative (Negative) Ethyl Alcohol mg/dL 332.2 H (<10.0) mg/dl SARS-CoV-2 (PCR) NEGATIVE (Negative) Influenza Type A (PCR) Negative (Neg) Influenza Type B (PCR) Negative (Neg) RSV (RT-PCR) Negative (Neg) MDM Narrative Continuous otolaryngologist: Order was placed for continuous otolaryngologist. Patient was placed on the otolaryngologist. Patient was noted to be in normal sinus rhythm at an initial rate of 95 bpm. The patient is a 43-year-old female who presents today complaining of vomiting and concern for alcohol withdrawal. Patient has had prior visits and hospitalizations for alcohol use in the past. Labs revealed no leukocytosis or anemia. Labs are suggestive of dehydration, with mild hyponatremia, elevation of anion gap. Lipase slightly elevated, suspect due to vomiting. Alcohol level is elevated at 332, although clinically patient does not appear to be significantly intoxicated. She was given a banana bag, saline bolus, Zofran and Phenergan without improvement of symptoms. She had continued uncontrolled nausea/vomiting. For this reason I did speak with the hospitalist about admission. They agreed to evaluate the patient for further care. Impression Intractable nausea and vomiting, Alcohol abuse Discharge Plan Visit Data Chief Complaint: Alcohol Withdrawal Stated Complaint: NAUSEA, VOMIT ED Provider: Zaira Bingham ED Midlevel Provider: Sujey Quesada Discharge Problem: Intractable nausea and vomiting, Alcohol abuse Forms Stand Alone Forms: My [facility], Suicide Prevention Resources Prescriptions Prescriptions: No Action ondansetron HCl 4 mg tablet 4 mg PO Q6 PRN (Reason: Nausea) acetaminophen [Tylenol Extra Strength] 500 mg Tablet 500 mg PO Q6H PRN (Reason: mild pain (scale score 1-4)) Qty: 30 0RF diclofenac sodium [Voltaren Arthritis Pain] 1 % Gel 2 g EXT Q6 Qty: 100 0RF amitriptyline 50 mg tablet 25 mg PO HS PRN (Reason: Pain) Rx Instructions: neuropathy hydroxyzine HCl 25 mg tablet 25 mg PO Q6H PRN (Reason: Anxiety) melatonin 10 mg tablet 10 mg PO HS buspirone 10 mg tablet 10 mg PO TID Ventolin HFA 90 mcg 2 puff inhalation QID PRN (Reason: Wheezing) gabapentin 100 mg capsule See Taper PO BID Qty: 6 0RF Taper: Taper, Blank 400 mg DAILY for 1 Day 200 mg DAILY for 1 Day thiamine HCl (vitamin B1) 100 mg Tablet 100 mg PO QAM Qty: 30 0RF folic acid 1 mg Tablet 1 mg PO QAM Qty: 30 0RF Referrals Referrals: Aj Gaston MD [Primary Care Provider] -
[2023-08-13 20:11] LABS: Pregnancy Test, Serum Negative (Negative)
[2023-08-13 20:13] LABS: Alanine Aminotransferase 37 U/L (7-52); Albumin Globulin Ratio 1.4 (0.9-2); Albumin Level 5.3 gm/dl (3.4-5.0); Alkaline Phosphatase 85 U/L (34-104); Anion Gap 21 (3-11); Aspartate Aminotransferase 110 U/L (13-39); BUN Creatinine Ratio 15.7 (10-20); Bilirubin,Total 1.1 mg/dl (0.2-1.0); Blood Urea Nitrogen 11 mg/dl (6-23); Carbon Dioxide 20 mmol/L (21-32); Chloride 93 mmol/L (98-107); Est GFR (African American) 124.7 ml/min; Est GFR (Non-African American) 107.6 ml/min; Globulin 3.7 gm/dl (2.5-4.0); Glucose 99 mg/dl (70-99(Fasting)); Lipase 120 U/L (11-82); Magnesium 2.4 mg/dl (1.7-2.4); Sodium 134 mmol/L (136-145)
[2023-08-13 20:40] LABS: Influenza A virus by PCR Negative (Neg); Influenza B virus by PCR Negative (Neg); RSV by PCR Negative (Neg); SARS CoV2 RNA(COVID-19) Ceph NEGATIVE (Negative)
[2023-08-13] MEDS ORDERED: PROMETHAZINE 12.5 MG/50.5 ML BAG IV STA (21:40)
[2023-08-13] MEDS ORDERED: KETOROLAC TROMETHAMINE 15 MG/ML VIAL IV STA (22:46)
[2023-08-13] MEDS ORDERED: LACTATED RINGER'S 1,000 ML IV STA (23:25)
[2023-08-14 00:10] LABS: INR 0.9 (0.9-1.1); Prothrombin Time 10.2 Seconds (9.0-12.0)
[2023-08-14] MEDS ORDERED: ACETAMINOPHEN 1,000 MG/100 ML VIAL IV STA (01:15)
[2023-08-14] MEDS ORDERED: LORazepam 1 MG/1 ML SYR ED Inj Use IV STA (01:15)
[2023-08-14] MEDS ORDERED: GABAPENTIN 600 MG TAB PO STA (01:16)
--- NOTE | 2023-08-14 01:17 | History & Physical Report ---
Date of Service August 14, 2023 Assessment & Plan (1) Alcohol withdrawal: Plan: Recurrent admissions Alcoholic hepatitis, likely good prognosis on Maddrey's DF with PT within normal limits chronic anemia, hemoglobin better than baseline secondary to hemoconcentration from presumptive viral illness anxiety/mood disorder, at baseline ongoing vape use Medical telemetry MELODIE S, DT precautions IVF Supportive management for viral illness DVT prophylaxis. Lovenox subcu Full code Patient mother requesting updates from providers. Ms. Jessenia Bauer, contact #[phone]. Text document was generated using [employer] voice recognition software. It may contain grammatical or spelling errors. Kindly contact undersigned for clarification of any documentation item in question. History of Present Illness Chief Complaint: Nausea, vomiting, headache, weakness Primary Care Provider: Aj Gaston MD History obtained from patient and records. Medical history significant for anxiety/mood disorder, fatty liver as per records, chronic anemia (baseline hemoglobin of 11 ), alcohol abuse, ongoing vape use. Two admissions since April 2023 for alcohol withdrawal. Recent confinement last month. Patient discharged on gabapentin course. Patient started drinking again last week. Stressed out from breast biopsy results which later turned out to be negative. 3 days ago, patient noted flulike symptoms. Admits to sick contacts. Denies cough symptoms. Poor appetite. Achy headache symptoms, nausea, vomiting without abdominal pain. Patient consulted ER for worsening symptoms. Medical Historyas above Surgical History : Hand surgery, dental surgery, breast biopsy Family History : Alcoholism, A-fib, dementia Personal/Social history : Ongoing vape use, alcohol abuse, currently unemployed Allergies Allergy/AdvReac Type Severity Reaction Status Date / Time nickel Allergy Rash Verified 08/14/23 01:48 Home Medications Medication Instructions Recorded Confirmed Type acetaminophen 500 mg tablet 500 - 1,000 mg PO Q6H PRN Pain 08/14/23 08/14/23 History (Tylenol Extra Strength) albuterol sulfate 90 mcg/actuation 2 puff inhalation QID PRN 08/14/23 08/14/23 History aerosol inhaler (Ventolin HFA) Shortness Of Breath Or Wheezing amitriptyline 50 mg tablet 50 mg PO HS PRN Sleep 08/14/23 08/14/23 History buspirone 10 mg tablet 10 mg PO TID 08/14/23 08/14/23 History diclofenac sodium 1 % topical gel 1 ea topical DIRECTED PRN Pain 08/14/23 History folic acid 1 mg tablet 1 mg PO DAILY 08/14/23 08/14/23 History gabapentin 100 mg capsule 100 mg PO TID 08/14/23 08/14/23 History hydroxyzine pamoate 50 mg capsule 50 mg PO BID PRN Anxiety 08/14/23 08/14/23 History melatonin 10 mg tablet 10 mg PO HS 08/14/23 08/14/23 History naltrexone 50 mg tablet 25 - 50 mg PO DAILY 08/14/23 08/14/23 History ondansetron HCl 4 mg tablet 4 mg PO Q6 PRN Nausea 08/14/23 08/14/23 History valacyclovir 1 gram tablet 1 mg PO BID PRN Cold Sores 08/14/23 08/14/23 History Past Med/Surg History Medical History (Updated 08/14/23 @ 09:49 by Jimi Zavala MD) Alcohol withdrawal Abnormal uterine bleeding ADD (attention deficit disorder) Insomnia Restless leg Depression Anxiety Alcohol dependence Fatty liver Anxiety and depression Surgical History S/P nasal surgery septoplasty and rhinoplasty-both w/Dr. Castañeda H/O wisdom tooth extraction Family History Aunt Breast cancer, Onset Age: 65 paternal Asthma maternal Grandfather (Paternal) Prostate cancer Aunt Allergies maternal Family/Other Allergies cousins Asthma cousins Other No family history of adverse response to anesthesia No family history of bleeding disorder Denies family history of Ovarian cancer Colorectal cancer Social History Smoking Status: Current every day smoker Tobacco Type: E-cigarettes / Vaping Age Started Using Tobacco: 20; packs per day: 0.5; Second Hand Exposure: No; Do You Dip or Chew Tobacco: No; Hx Alcohol Use: Yes Hx Substance Use: No Preferred Language: Kinyarwanda 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 Ability: Effective Hand Presser Required: No Beliefs That Will Affect Care: None marital status: Single Current Living Situation: Alone Current Living Situation Comment: UNABLE TO ASSESS Feels Safe at Home: Yes Safety Concerns: Feels Safe At This Time Assistive Devices: None Review of Systems Review of Systems: As per HPI, all other systems reviewed and negative Physical Exam Physical Exam: GENERAL: Anxious, uncomfortable, tremulous, no respiratory distress SKIN: Pallor, warm HEENT: Pale palpebral conjunctivae, no ptosis, dry buccal mucosa NECK : Supple, no tenderness CHEST : CTA, no tenderness HEART : RRR, no obvious murmurs ABDOMEN: Some distention, nontender EXTREMITIES : No LE swelling/tenderness, no other conspicuous deformities noted NEUROLOGIC : Coherent, no facial asymmetry, tremulous, gait and stance not assessed Results & Data Results & Data Vital Signs (Past 12 Hours) Vital Signs Temp Pulse Resp BP Pulse Ox O2 Del Method 08/13/23 23:32 85 08/13/23 23:30 85 17 112/78 97 08/13/23 23:19 83 16 106/72 97 08/13/23 22:30 89 16 98 Room Air 08/13/23 22:00 86 17 08/13/23 21:30 93 H 14 95 Room Air 08/13/23 21:00 90 19 98 Room Air 08/13/23 20:30 83 11 L 08/13/23 20:00 81 12 99 Room Air 08/13/23 19:39 98 Room Air 08/13/23 19:30 113 H 16 08/13/23 19:27 91 H 08/13/23 19:25 106 H 15 99 08/13/23 19:14 36.7 C 98 H 17 111/74 95 Room Air Laboratory Results Laboratory Results WBC 5.31 K/ul (4.8-10.8) 08/13/23 19:30 RBC 4.69 M/uL (4.20-5.40) 08/13/23 19:30 Hgb 15.6 g/dl (12.0-16.0) 08/13/23 19:30 Hct 43.3 % (37.0-47.0) 08/13/23 19:30 MCV 92.3 fL (80.0-100.0) 08/13/23 19:30 MCH 33.3 pg (25.0-34.0) 08/13/23 19:30 MCHC 36.0 g/dL (32.0-36.0) 08/13/23 19:30 RDW Std Deviation 46.1 fL (36.4-46.3) 08/13/23 19:30 RDW Coeff of Edgar 13.7 % (11.5-14.5) 08/13/23 19:30 Plt Count 189 K/uL (130-400) 08/13/23 19:30 MPV 9.6 fL (9.4-12.4) 08/13/23 19:30 Immature Gran % (Auto) 0.6 % 08/13/23 19:30 Neut % (Auto) 52.6 % 08/13/23 19:30 Lymph % (Auto) 39.2 % 08/13/23 19:30 [place] % (Auto) 5.1 % 08/13/23 19:30 Eos % (Auto) 1.7 % 08/13/23 19: Baso % (Auto) 0.8 % 08/13/23 19:30 Neut # (Auto) 2.80 K/uL (1.40-6.50) 08/13/23 19:30 Lymph # (Auto) 2.08 K/uL (1.20-3.40) 08/13/23 19:30 [place] # (Auto) 0.27 K/uL (0.11-0.59) 08/13/23 19:30 Eos # (Auto) 0.09 K/uL (0.00-0.50) 08/13/23 19:30 Baso # (Auto) 0.04 K/uL (0.00-0.20) 08/13/23 19:30 Immature Gran # (Auto) 0.03 K/uL (0.01-0.20) 08/13/23 19:30 PT 10.2 Seconds (9.0-12.0) 08/13/23 19:30 INR 0.9 (0.9-1.1) 08/13/23 19:30 Sodium 134 mmol/L (136-145) L 08/13/23 19:30 Potassium 4.0 mmol/L (3.5-5.1) 08/13/23 19:30 Chloride 93 mmol/L (98-107) L 08/13/23 19:30 Carbon Dioxide 20 mmol/L (21-32) L 08/13/23 19:30 Anion Gap 21 (3-11) H 08/13/23 19:30 BUN 11 mg/dl (6-23) 08/13/23 19:30 Creatinine 0.70 mg/dl (0.6-1.2) 08/13/23 19:30 Est Cr Clr Drug Dosing Not Reportable 08/13/23 19:30 Est GFR ( Amer) 124.7 ml/min 08/13/23 19:30 Est GFR (Non-Af Amer) 107.6 ml/min 08/13/23 19:30 BUN/Creatinine Ratio 15.7 (10-20) 08/13/23 19:30 Glucose 99 mg/dl (70-99(Fasting)) 08/13/23 19:30 Calcium 10.0 mg/dl (8.6-10.3) 08/13/23 19:30 Magnesium 2.4 mg/dl (1.7-2.4) 08/13/23 19:30 Total Bilirubin 1.1 mg/dl (0.2-1.0) H 08/13/23 19:30 AST 110 U/L (13-39) H 08/13/23 19:30 ALT 37 U/L (7-52) 08/13/23 19:30 Alkaline Phosphatase 85 U/L (34-104) 08/13/23 19:30 Total Protein 9.0 gm/dl (6.0-8.3) H 08/13/23 19:30 Albumin 5.3 gm/dl (3.4-5.0) H 08/13/23 19:30 Globulin 3.7 gm/dl (2.5-4.0) 08/13/23 19:30 Albumin/Globulin Ratio 1.4 (0.9-2) 08/13/23 19:30 Lipase 120 U/L (11-82) H 08/13/23 19:30 HCG, Qual Negative (Negative) 08/13/23 19:30 Ethyl Alcohol mg/dL 332.2 mg/dl (<10.0) H 08/13/23 19:36 SARS-CoV-2 (PCR) NEGATIVE (Negative) 08/13/23 19:54 Influenza Type A (PCR) Negative (Neg) 08/13/23 19:54 Influenza Type B (PCR) Negative (Neg) 08/13/23 19:54 RSV (RT-PCR) Negative (Neg) 08/13/23 19:[address] head: No evidence of acute intracranial pathology.
[2023-08-14] MEDS ORDERED: Ativan IV Alcohol Withdrawal--Active Protocol IV PRN (02:35)
[2023-08-14] MEDS ORDERED: LORazepam 3 MG in SYRINGE 1.5 ML IV PRN (02:35)
[2023-08-14] MEDS ORDERED: GABAPENTIN 1200MG ALCOHOL WITHDRAWAL LOAD PO STA (02:35)
--- NOTE | 2023-08-14 03:35 | CT Scan Report ---
Exam(s): CT HEAD Without Contrast EXAM: CT Head Without Intravenous Contrast CLINICAL HISTORY: Reason for exam: hill. TECHNIQUE: Axial computed tomography images of the head/brain without intravenous contrast. CTDI is 37.32 mGy and DLP is 547.75 mGy-cm. Automated exposure control was utilized for the study. A dose lowering technique was utilized adhering to the principles of ALARA. COMPARISON: Comparison made to prior head CT from May 05, 2023. FINDINGS: Brain: Unremarkable. No hemorrhage. No significant white matter disease. No edema. Ventricles: Unremarkable. No ventriculomegaly. Bones/joints: Unremarkable. No acute fracture. Soft tissues: Unremarkable. Sinuses: Unremarkable as visualized. No acute sinusitis. Mastoid air cells: Unremarkable as visualized. No mastoid effusion. IMPRESSION: No evidence of acute intracranial pathology. Electronically signed by: Nila Lara MD 08/14/23 03:35 AM
[2023-08-14] MEDS ORDERED: AMITRIPTYLINE HCL 50 MG TAB PO PRN (04:42)
[2023-08-14] MEDS ORDERED: PROMETHAZINE 12.5 MG/50.5 ML NSS IV ONE (04:56)
[2023-08-14] MEDS: MELATONIN 3 MG TAB PO PRN ×2 (05:06→22:18)
[2023-08-14] MEDS: PROMETHAZINE HCL 6.25 MG in SODIUM CHLORIDE 0.9% 50 ML IV PRN ×2 (05:06→20:06)
[2023-08-14 05:40] LABS: Basophils # (auto) 0.04 K/uL (0.00-0.20); Basophils % (auto) 0.7 %; Eosinophils # (auto) 0.14 K/uL (0.00-0.50); Eosinophils % (auto) 2.4 %; Hematocrit (blood only) 33.3 % (37.0-47.0); Hemoglobin 11.6 g/dl (12.0-16.0); Immature Granulocytes # (auto) 0.04 K/uL (0.01-0.20); Immature Granulocytes % (auto) 0.7 %; Lymphocytes # (auto) 1.91 K/uL (1.20-3.40); Lymphocytes % (auto) 32.2 %; Mean Corpuscular Hgb Conc 34.8 g/dL (32.0-36.0); Mean Corpuscular Volume 94.6 fL (80.0-100.0); Mean Platelet Volume 9.9 fL (9.4-12.4); Monocytes # (auto) 0.28 K/uL (0.11-0.59); Monocytes % (auto) 4.7 %; Neutrophils # (auto) 3.53 K/uL (1.40-6.50); Neutrophils % (auto) 59.3 %; Platelet Count 116 K/uL (130-400); RDW Coefficient of Variation 13.9 % (11.5-14.5); RDW Standard Deviation 48.3 fL (36.4-46.3); Red Blood Count 3.52 M/uL (4.20-5.40); White Blood Count 5.94 K/ul (4.8-10.8)
[2023-08-14 05:55] LABS: Anion Gap 15 (3-11); Bilirubin,Total 1.2 mg/dl (0.2-1.0); Calcium 8.4 mg/dl (8.6-10.3); Carbon Dioxide 20 mmol/L (21-32); Chloride 101 mmol/L (98-107); Potassium 3.8 mmol/L (3.5-5.1); Sodium 136 mmol/L (136-145)
[2023-08-14] MEDS ORDERED: LACTATED RINGER'S 1,000 ML IV ONE (06:00)
[2023-08-14 06:05] LABS: Alanine Aminotransferase 28 U/L (7-52); Albumin Globulin Ratio 1.6 (0.9-2); Alkaline Phosphatase 59 U/L (34-104); Aspartate Aminotransferase 83 U/L (13-39); BUN Creatinine Ratio 19.7 (10-20); Blood Urea Nitrogen 12 mg/dl (6-23); Est GFR (African American) 130.5 ml/min; Est GFR (Non-African American) 112.6 ml/min; Globulin 2.5 gm/dl (2.5-4.0); Glucose 58 mg/dl (70-99(Fasting)); Total Protein 6.5 gm/dl (6.0-8.3)
[2023-08-14] MEDS: GABAPENTIN 600 MG TAB PO SCH ×3 (09:38→20:13)
[2023-08-14] MEDS: FOLIC ACID 1 MG TAB PO SCH (09:38)
[2023-08-14] MEDS: MULTIVITAMIN TAB PO SCH (09:38)
[2023-08-14] MEDS: busPIRone 5 MG TAB PO SCH ×3 (09:38→20:12)
[2023-08-14] MEDS: THIAMINE HCL 100 MG TAB PO SCH (09:38)
[2023-08-14] MEDS: ENOXAPARIN INJ 40 MG/0.4 ML SYR SQ SCH (09:50)
[2023-08-14] MEDS ORDERED: LORazepam 2 MG/1 ML VIAL ONE (13:07)
[2023-08-14] MEDS: LORazepam 2 MG in SYRINGE 1 ML IV PRN ×2 (13:21→16:33)
--- NOTE | 2023-08-14 14:34 | 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 Note ---
Date of Service: August 14, 2023 Patient was seen and examined at bedside. 43-year-old lady with PMH of anxiety/mood disorder, fatty liver, alcohol abuse, ongoing vape use presented to the ED 08/13 with complaint of poor appetite/nausea/vomiting and wants to detox. Patient denied abdominal pain/black or bloody stool/hematemesis or coffee-ground emesis at presentation. 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 She is being managed for the following: #. Impending Alcohol withdrawal #. Alcohol intoxication Patient with history of alcohol abuse, has not been sober much per her since her last discharge Last drink 08/13 evening; drinks "many" shots of vodka a day. 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 Alcohol level 332 at presentation. Hemoconcentration noted at presentation, likely from dehydration. Continue with thiamine, folic acid. AWSS protocol and gabapentin taper. CM to assist w/ resources/rehab setup. IVF, encourage p.o. intake, Nausea medications. Transaminitis:AST elevation, likely secondary to alcohol use. Follow LFT. Other chronic medical conditions:Continue with/resume home meds as and when able anxiety/mood disorder, at baseline. Continue with home dose of BuSpar DVT prophylaxis. Lovenox subcu Full code Patient's mother Ms. Jessenia Bauer, contact #[phone].
[2023-08-14] MEDS: ACETAMINOPHEN 325 MG TAB PO PRN (16:39)
[2023-08-14] MEDS: LORazepam 1 MG in SYRINGE 0.5 ML IV PRN (20:08)
[2023-08-15 02:13] LABS: Appearance Urine Turbid (Clear); Bacteria Urine Automated Negative (Negative); Bilirubin Urine Negative (Negative); Blood Urine Negative (Negative); Color Urine Orange; Epithelial Cell Urine Auto 20-30 /lpf (0-5); Glucose Urine UA Negative (Negative); Ketones Urine Trace (Negative); Leukocyte Esterase Urine Negative (Negative); Nitrite Urine Negative (Negative); Protein Urine Negative (Negative); RBC Urine Automated 0-4 /hpf (0-4); Specific Gravity Urine 1.024 (1.000-1.030); Urobilinogen Urine Negative (Negative); pH Urine 6.5 (4.5-7.5)
[2023-08-15] MEDS: GABAPENTIN 600 MG TAB PO SCH ×3 (05:51→14:32)
[2023-08-15 07:44] LABS: Hemoglobin 12.2 g/dl (12.0-16.0); Mean Corpuscular Hgb Conc 34.9 g/dL (32.0-36.0); Mean Corpuscular Volume 94.6 fL (80.0-100.0); Mean Platelet Volume 10.8 fL (9.4-12.4); Platelet Count 83 K/uL (130-400); RDW Coefficient of Variation 13.6 % (11.5-14.5); RDW Standard Deviation 47.6 fL (36.4-46.3); White Blood Count 4.16 K/ul (4.8-10.8)
[2023-08-15 07:52] LABS: BUN Creatinine Ratio 19.3 (10-20); Calcium 9.2 mg/dl (8.6-10.3); Creatinine Clr Calc Pharmacy 112.2 ml/min; Est GFR (African American) 133.5 ml/min; Est GFR (Non-African American) 115.1 ml/min; Potassium 4.1 mmol/L (3.5-5.1)
[2023-08-15] MEDS: ENOXAPARIN INJ 40 MG/0.4 ML SYR SQ SCH (08:03)
[2023-08-15] MEDS: busPIRone 5 MG TAB PO SCH ×3 (08:04→22:27)
[2023-08-15] MEDS: FOLIC ACID 1 MG TAB PO SCH (08:04)
[2023-08-15] MEDS: THIAMINE HCL 100 MG TAB PO SCH (08:04)
[2023-08-15] MEDS: MULTIVITAMIN TAB PO SCH (08:04)
--- OUTSIDE RECORDS SUMMARY | 2023-08-15 08:05 | External Medical Summary | Summary of Care ---
Author Name Unknown Organization [facility] Address [address] [place] [address] Phone [phone] Care Team Providers Care Employment Case Manager Name Role Phone aMrilin MICHAELS MD, Aj Westfall Primary Care Provider [phone] Reason for Visit * Reason Onset Date Comments case management 07/16/2023 Encounter Details Date Type Department Care Team Description 07/16/2023 Investigation Division Captain Telephone Care Coordination [address] [place] [address] Nini Koehler LCSW case management Allergies Active Allergy Reactions Severity Noted Date Comments Nickel Rash 06/01/2018 documented as of this encounter (statuses as of 07/16/2023) Medications Medication Sig Dispensed Refills Start Date End Date Status VENTOLIN HFA 108 (90 Base) MCG/ACT inhaler INHALE 2 PUFFS BY MOUTH 4 TIMES A DAY 18 g 1 04/17/2019 Active Amitriptyline HCl 50 MG Oral Tablet (Elavil) Take 1 Tablet by mouth at bedtime. Use as needed- may use 1/2 to full tab. 0 Active Ondansetron HCl 4 MG Oral TabletIndications:Na usea and vomiting, unspecified vomiting type Take 1 Tablet by mouth every 6 hours as needed for Nausea. 30 Tablet 0 04/24/2023 Active Acetaminophen 500 MG Oral Tablet Take 1 Tablet by mouth every 6 hours as needed. 0 Active Thiamine HCl 100 MG Oral Tablet Take 1 Tablet by mouth in the morning. 0 05/10/2023 Active Folic Acid 1 MG Oral Tablet Take 1 Tablet by mouth in the morning. 0 05/10/2023 Active Diclofenac Sodium 1 % External Gel (Voltaren) Apply topically to affected area as needed for Pain, Moderate. Apply to injured ankle as needed 150 g 5 05/17/2023 Active busPIRone HCl 10 MG Oral Tablet (Buspar)Indications: DOLLY (generalized anxiety disorder) Take 1 Tablet by mouth in the morning and 1 Tablet at noon and 1 Tablet before bedtime. 90 Tablet 5 06/23/2023 Active hydrOXYzine HCl 25 MG Oral Tablet Take 1 Tablet by mouth every 6 hours as needed for Anxiety. 40 Tablet 2 06/23/2023 Active Melatonin 10 MG Oral Tablet Take 1 Tablet by mouth at bedtime. 30 Tablet 6 07/13/2023 Active valACYclovir HCl 1 GM Oral Tablet (Valtrex) TAKE 1 TABLET BY MOUTH IN THE MORNING AND 1 TAB BEFORE BEDTIME FOR 7 DAYS 14 Tablet 1 07/12/2023 Active Gabapentin 100 MG Oral Capsule (Neurontin) 1 tablet nightly for 5 nights then 1 twice daily for 5 days then 3 times daily 90 Capsule 5 07/16/2023 Active documented as of this encounter (statuses as of 07/16/2023) Active Problems Problem Noted Date Major depressive disorder, recurrent epi sode, moderate 11/15/2018 Depression with anxiety 10/19/2016 Malaise and fatigue 08/18/2010 Tobacco use disorder 11/02/2007 Elevated liver enzymes Migraine Insomnia documented as of this encounter (statuses as of 07/16/2023) Resolved Problems Problem Noted Date Resolved Date Alcohol abuse, in remission 04/24/2023 07/2 05/2023 Routine medical exam 08/18/2010 05/09/2018 documented as of this encounter (statuses as of 07/16/2023) Immunizations Name Administration Dates Next Due Covid-19, Mrna, Lnp-s, Pf, B ivalent, 50 Mcg, IM, 12 yrs and above (Moderna) 09/23/2022 DTaP Dipth/Tet/Acell Pertussis (Infanrix), Peds 05/12/1988,03/05/1984,02/12/1983,12/11,1982 MMR - Measles/Mumps/Rubella Vaccine 11/28/1983 OPV - Polio Virus Vaccine (Oral) 988,03/05/1984,1982,10/09 PPD 09/16/2020, 0,07/26/2020,06/15 Pneumococcal Polysaccharide PPV23 (Pneumovax) 03/01/2019 TDAP (age 10 and older)(Boostrix) 06/04/2021 TDAP (age 11 and older)(Adacel) 04/22/2015,04/22 documented as of this encounter Social History Tobacco Use Types Packs/Day Years Used Date Smoking Tobacco: Former Cigarettes 0.5 20 Smokeless Tobacco: Never Alcohol Use Standard Drinks/Week Comments Not Currently 58 (1 standard drink = 0.6 oz pu re alcohol) 8-10 shots per day Sex Assigned at Date Recorded Not on file Job Start Date Occupation Industry Not on file Not on file Not on file documented as of this encounter Miscellaneous Notes * Telephone Encounter - Nini Koehler LCSW - 07/16/2023 3:29 PM EDT AC Referral [facility] Called [phone] Follow-up Routine Attempted Phone Call First Attempt Call Outcome Left Voicemail/Message Plan To attempt another outreach Nini Koehler LCSW Behavioral Health Investigation Division Captain - [facility] [place] [phone] [email or web address] documented in this encounter Plan of Treatment Upcoming Encounters Date Type Specialty Care Team Description 07/28/2023 Office Visit Family Medicine Marilin III, Aj Westfall MD [address] [place] [address] Health Maintenance Due Date Last Done Comments Hepatitis B (1 of 3 - 3-dose series) 1982 HPV/Co-Test 2012 COVID-19 Vaccine (2 - 2022- season) 2023 09/23/2022 Influenza Vaccine (FLU shot) (#1) 2023 Depression, Most Recent Score >= 10 (will fire each visit until score < 10) 07/15/2023 07/14/2023 Mammogram 06/28/2024 06/28/2023, 06/21/2023 Cervical Cancer Screening 08/27/2024 Pap Smear 08/27/2024 08/27/2021, 03/28 (Done elsewhere), 12/21/2014, Additional history exists Lipid Panel 06/12/2025 06/12/2020 DTaP,Tdap,and Td Vaccines (9 - Td or Tdap) 06/04/2031 06/04/2021, 04/22/2015, 04/22/2009, Additional history exists Hepatitis C Screening Completed 12/22/2014 Pneumococcal Vaccine: Pediatrics (0 to 5 Years) and At-Risk Patients (6 to 64 Years) Aged Out 03/01/2019 No longer eligible based on patient's age to complete this topic GARDASIL-HPV IMMUNIZATION SERIES Aged Out No longer eligible based on patient's age to complete this topic MENINGOCOCCAL (MENACTRA/MENVEO) Aged Out No longer eligible based on patient's age to complete this topic documented as of this encounter Medical Devices Not on filedocumented as of this encounter Care Teams Employment Case Manager Relationship Specialty Start Date End Date Aj Gaston III, MD [address] [facility] [place] [address] PCP - General Family Medicine 05/12/23 documented as of this encounter
--- OUTSIDE RECORDS SUMMARY | 2023-08-15 08:05 | External Medical Summary | Summary of Care ---
Author Name Unknown Organization [facility] Address [address] [place] [address] Phone [phone] Care Team Providers Care Configuration Consultant Name Role Phone Marilin MICHAELS MD, Aj Westfall Primary Care Provider [phone] Reason for Visit * Reason Onset Date Comments case management 07/23/2023 Encounter Details Date Type Department Care Team (Late st Contact Info) Description 07/23/2023 Sql Tech Telephone Care Coordination [address] [place] [address] Nini Koehler LCSW case management Allergies Active Allergy Reactions Criticality Noted Date Comments Nickel Rash 06/01/2018 documented as of this encounter (statuses as of 07/23/2023) Medications Medication Sig Dispensed Refills Start Date [...] DAYS 14 Tablet 1 07/12/2023 Active Gabapentin 300 MG Oral Capsule (Neurontin) At bedtime x 5 days then twice daily x 5, then 3x daily 90 Capsule 5 07/17/2023 Active documented as of this encounter (statuses as of 07/23/2023) Active Problems Problem Noted Date Diagnosed Date Major depressive disorder, recurrent episode, mo derate 11/15/2018 Depression with anxiety 10/19/2016 Malaise and fatigue 08/18/2010 Tobacco use disorder 11/02/2007 Elevated liver enzymes Migraine Insomnia documented as of this encounter (statuses as of 07/23/2023) Resolved Problems Problem Noted Date Diagnosed Date Resolved Date Alcohol abuse, in remission 04/24/2023 04/24/2023 Routine medical exam 08/18/2010 018 documented as of this encounter (statuses as of 07/23/2023) Immunizations Name Administration Dates Next Due Covid-19, [...] pu re alcohol) 8-10 shots per day PHQ-2 Answer Date Recorded PHQ Adult Total Score 12 07/14/2023 Sex and Gender Information Value Date Recorded Sex Assigned at Not on file Gender Identity Not on file Sexual Orientation Not on file Job Start Date Occupation Industry Not on file Not on file Not on file documented as of this encounter Miscellaneous Notes * Telephone Encounter - Nini Koehler LCSW - 07/23/2023 2:06 PM EDT [facility] Called [phone] - vm full Follow-up Routine Attempted Phone Call Second Attempt Call Outcome Unable to Leave Message Plan To attempt another outreach Electronic outreach (Secure EHR portal, Secure text, etc.) Nini Koehler LCSW Behavioral Health Sql Tech - [facility] [phone] [email or web address] documented in this encounter Plan of Treatment Upcoming Encounters Date Type Department Care Team (Late st Contact Info) Description 07/28/2023 3:40 PM EDT Office Visit Family Practice [facility] [address] [place] [address] Aj Gaston III, MD [address] [place] [address] Health Maintenance Due Date Last Done Comments Hepatitis B (1 of 3 - 3-dose series) 1982 HPV/Co-Test 2012 COVID-19 Vaccine (2 - 24 season) 2023 09/23/2022 Influenza Vaccine (FLU shot) [...] filedocumented as of this encounter Care Teams Configuration Consultant Relationship Specialty Start Date End Date Aj Gaston III, MD [address] [place] [address] PCP - General Family Medicine 05/12/23 documented as of this encounter
--- OUTSIDE RECORDS SUMMARY | 2023-08-15 08:05 | External Medical Summary | Summary of Care ---
Author Name Unknown Organization [facility] Address [address] [place] [address] Phone [phone] Care Team Providers Care Sql Programmer Analyst Name Role Phone Marilin MICHAELS MD, Aj Westfall Primary Care Provider [phone] Reason for Visit * Reason Onset Date Comments FYI 07/28/2023 Encounter Details Date Type Department Care Team (Late st Contact Info) Description 07/28/2023 Nurse Epidemiologist Telephone General Internal Medicine [facility] [address] [place] [address] Anne Bustos, RN [address] [place] [address] FYI Allergies Active Allergy Reactions Criticality Noted Date Comments Nickel Rash 06/01/2018 documented as of this encounter (statuses as of 08/04/2023) Medications Medication Sig Dispensed Refills Start Date [...] as of this encounter (statuses as of 08/04/2023) Active Problems Problem Noted Date Diagnosed Date Major depressive disorder, recurrent episode, mo derate 11/15/2018 Depression with anxiety 10/19/2016 Malaise and fatigue 08/18/2010 Tobacco use disorder 11/02/2007 Elevated liver enzymes Migraine Insomnia documented as of this encounter (statuses as of 08/04/2023) Resolved Problems Problem Noted Date Diagnosed Date Resolved Date Alcohol abuse, in remission 04/24/2023 04/24/2023 Routine medical exam 08/18/2010 018 documented as of this encounter (statuses as of 08/04/2023) Immunizations Name Administration Dates Next Due Covid-19, [...] Answer Date Recorded PHQ Adult Total Score 7 07/28/2023 Sex and Gender Information Value Date Recorded Sex Assigned at Not on file Gender Identity Not on file Sexual Orientation Not on file Job Start Date Occupation Industry Not on file Not on file Not on file documented as of this encounter Miscellaneous Notes * Telephone Encounter - Anne Bustos RN - 07/28/2023 3:11 PM EDT Please [facility] the [facility] from [facility] Device(s)/IVR to be discontinued: IVR calls due to Pt no longer eligible. Thank you. documented in this encounter Plan of Treatment Upcoming Encounters Date Type Department Care Team (Late st Contact Info) Description 11/24/2023 1:40 PM EST Office Visit Family Practice [facility] [address] [place] [address] Aj Gaston III, MD [address] [place] [address] Health Maintenance Due Date Last Done Comments Hepatitis B (1 of 3 - 3-dose series) 1980 HPV/Co-Test 2012 COVID-19 Vaccine (2 - season) 2023 09/23/2022 Influenza Vaccine (FLU shot) (#1) 2023 Mammogram 06/28/2024 06/28/2023, 06/21/2023 Depression Screening 07/28/2024 07/28/2023 Cervical Cancer Screening 08/27/2024 Pap Smear 08/27/2024 [...] Not on filedocumented as of this encounter Visit Diagnoses Diagnosis Need for case management follow-up- Primary documented in this encounter Care Teams Sql Programmer Analyst Relationship Specialty Start Date End Date Aj Gaston III, MD [address] [place] [address] PCP - General Family Medicine 05/12/23 documented as of this encounter
--- OUTSIDE RECORDS SUMMARY | 2023-08-15 08:05 | External Medical Summary | Summary of Care ---
Author Name Unknown Organization [facility] Address [address] [place] [address] Phone [phone] Care Team Providers Care Customer Service Advisor Name Role Phone Marilin MICHAELS MD, Aj Westfall Primary Care Provider [phone] Encounter Details Date Type Department Care Team (Late st Contact Info) Description 07/28/2023 Tin Recovery WorkerFood Service Worker Hospital Practice [facility] [address] [place], [place] [id number] Anne Bustos, RN [address] [place] [address] Medical home patient encounter* Allergies Active Allergy Reactions Criticality Noted Date Comments Nickel Rash 06/01/2018 documented as of this encounter (statuses as of 07/28/2023) Medications Medication Sig Dispensed Refills Start Date [...] as of this encounter (statuses as of 07/28/2023) Active Problems Problem Noted Date Diagnosed Date Major depressive disorder, recurrent episode, mo derate 11/15/2018 Depression with anxiety 10/19/2016 Malaise and fatigue 08/18/2010 Tobacco use disorder 11/02/2007 Elevated liver enzymes Migraine Insomnia documented as of this encounter (statuses as of 07/28/2023) Resolved Problems Problem Noted Date Diagnosed Date Resolved Date Alcohol abuse, in remission 04/24/2023 04/24/2023 Routine medical exam 08/18/2010 018 documented as of this encounter (statuses as of 07/28/2023) Immunizations Name Administration Dates Next Due Covid-19, [...] on file documented as of this encounter Progress Notes * Anne Bustos RN - 07/28/2023 3:09 PM EDT Error documented in this encounter Plan of Treatment Upcoming Encounters Date Type Department Care Team (Late st Contact Info) Description 07/28/2023 3:40 PM EDT Office Visit Family Practice [facility] [place] [address] [place] [address] ColumbianaAj akers III, MD [address] [place] [address] Health Maintenance Due Date Last Done Comments [...] as of this encounter Visit Diagnoses Diagnosis Medical home patient encounter- Primary Other specified examination documented in this encounter Care Teams Customer Service Advisor Relationship Specialty Start Date End Date Aj Gaston III, MD [address] [place] [address] PCP - General Family Medicine 05/12/23 documented as of this encounter
--- OUTSIDE RECORDS SUMMARY | 2023-08-15 08:05 | External Medical Summary | Summary of Care ---
Author Name Unknown Organization [facility] Address [address] [place] [address] Phone [phone] Care Team Providers Care Railcar Switchman Name Role Phone Marilin MICHAELS MD, Aj Westfall Primary Care Provider [phone] Encounter Details Date Type Department Care Team (Late st Contact Info) Description 07/13/2023 Population Health External Data Unspecified Department Allergies Active Allergy Reactions Criticality Noted Date Comments Nickel Rash 06/01/2018 documented as of this encounter (statuses as of 2023) Medications Medication Sig Dispensed Refills Start Date [...] 7 DAYS 14 Tablet 1 07/12/2023 Active documented as of this encounter (statuses as of 2023) Active Problems Problem Noted Date Diagnosed Date Major depressive disorder, recurrent episode, mo derate 11/15/2018 Depression with anxiety 10/19/2016 Malaise and fatigue 08/18/2010 Tobacco use disorder 11/02/2007 Elevated liver enzymes Migraine Insomnia documented as of this encounter (statuses as of 2023) Resolved Problems Problem Noted Date Diagnosed Date Resolved Date Alcohol abuse, in remission 04/24/2023 04/24/2023 Routine medical exam 08/18/2010 018 documented as of this encounter (statuses as of 2023) Immunizations Name Administration Dates Next Due Covid-19, [...] on file documented as of this encounter Plan of Treatment Upcoming Encounters Date Type Department Care Team (Late st Contact Info) Description 11/24/2023 1:40 PM EST Office Visit Family Practice [facility] [place] [address] [facility] [place] [address] Aj Gaston III, MD 200 [facility] [place] [address] Health Maintenance Due Date Last Done Comments Hepatitis B (1 of 3 - 3-dose series) 1982 HPV/Co-Test 2012 COVID-19 Vaccine ( season) 2023 09/23/2022 Influenza Vaccine (FLU shot) [...] filedocumented as of this encounter Care Teams Railcar Switchman Relationship Specialty Start Date End Date Aj Gaston III, MD [address] [place] [address] PCP - General Family Medicine 05/12/23 documented as of this encounter
--- OUTSIDE RECORDS SUMMARY | 2023-08-15 08:05 | External Medical Summary | Summary of Care ---
Author Name Unknown Organization [facility] Address [address] [place] [address] Phone [phone] Care Team Providers Care Fire Safety Director Name Role Phone Marilin MICHAELS MD, Aj Westfall Primary Care Provider [phone] Encounter Details Date Type Department Care Team (Late st Contact Info) Description 07/22/[address]Opener Practice [facility] [address] [place], [place] [phone] Anne Vazquez, [place] Medical home patient encounter* Allergies Active Allergy Reactions Criticality Noted Date Comments Nickel Rash 06/01/2018 documented as of this encounter (statuses as of 07/22/2023) Medications Medication Sig Dispensed Refills Start Date [...] as of this encounter (statuses as of 07/22/2023) Active Problems Problem Noted Date Diagnosed Date Major depressive disorder, recurrent episode, mo derate 11/15/2018 Depression with anxiety 10/19/2016 Malaise and fatigue 08/18/2010 Tobacco use disorder 11/02/2007 Elevated liver enzymes Migraine Insomnia documented as of this encounter (statuses as of 07/22/2023) Resolved Problems Problem Noted Date Diagnosed Date Resolved Date Alcohol abuse, in remission 04/24/2023 04/24/2023 Routine medical exam 08/18/2010 018 documented as of this encounter (statuses as of 07/22/2023) Immunizations Name Administration Dates Next Due Covid-19, [...] of this encounter Progress Notes * Anne Vazquez RN - 07/22/2023 11:03 AM EDT Follow-up Routine Attempted Phone Call First Attempt Call Outcome Left Voicemail/Message Plan To attempt another outreach documented in this encounter Plan of Treatment Upcoming Encounters Date Type Department Care Team (Late st Contact Info) Description 07/28/2023 3:40 PM EDT [facility] [address] [place] [address] Aj Gaston III, MD 200 [place] [address] Health Maintenance Due Date Last Done Comments [...] examination documented in this encounter Care Teams Fire Safety Director Relationship Specialty Start Date End Date Aj Gaston III, MD [address] [place] [address] PCP - General Family Medicine 05/12/23 documented as of this encounter
--- OUTSIDE RECORDS SUMMARY | 2023-08-15 08:05 | External Medical Summary | Summary of Care ---
Author Name Unknown Organization [facility] Address [address] [place] [address] Phone [phone] Care Team Providers Care Energy Conservation Representative Name Role Phone Marilin MICHAELS MD, Aj Westfall Primary Care Provider [phone] Reason for Visit * Reason Onset Date Comments Test Results 07/16/2023 Encounter Details Date Type Department Care Team Description 07/16/2023 Telephone Family Practice [facility] [address] [place] [address] Aj Gaston III, MD [address] [place] [address] Test Results Allergies Active Allergy Reactions Severity Noted Date [...] encounter Miscellaneous Notes * Telephone Encounter - Nicole Encarnacion LPN - 07/16/2023 1:12 PM EDT Patient aware and verbalized understanding * Telephone Encounter - Nicole Encarnacion LPN - 07/16/2023 1:10 PM EDT ----- Message from Aj Gaston III, MD sent at 07/15/2023 8:34 AM EDT ----- Call please BENIGN -cystic area documented in this encounter Plan of Treatment Upcoming Encounters Date Type Specialty Care Team Description 07/28/2023 Office Visit Family Medicine Marilin MICHAELS, Aj Westfall MD [address] [place] [address] Health Maintenance Due Date Last Done Comments Hepatitis B (1 of 3 - 3-dose series) 1982 HPV/Co-Test 2012 COVID-19 Vaccine (2 - 2023-24 season) 2023 09/23/2022 Influenza Vaccine (FLU shot) [...] filedocumented as of this encounter Care Teams Energy Conservation Representative Relationship Specialty Start Date End Date Aj Gaston III, MD [address] [place] [address], [place] [address] PCP - General Family Medicine 05/12/23 documented as of this encounter
--- OUTSIDE RECORDS SUMMARY | 2023-08-15 08:05 | External Medical Summary | Summary of Care ---
Author Name Unknown Organization [facility] Address [address] [place] [address] Phone [phone] Care Team Providers Care Commodities Broker Name Role Phone Marilin MICHAELS MD, Aj Westfall Primary Care Provider [phone] Encounter Details Date Type Department Care Team (Late st Contact Info) Description 05/13/2023 Population Health External Data Unspecified Department Allergies [...] 0 Active Ondansetron HCl 4 MG Oral TabletIndications:Naus ea and vomiting, unspecified vomiting type Take 1 [...] mouth in the morning. 0 05/10/2023 Active documented as of this encounter (statuses [...] Description 11/24/2023 1:40 PM EST Office Visit [facility] [address] [place] [address] Aj Gaston III, MD [address] [place] [address] Health Maintenance Due Date Last Done Comments [...] filedocumented as of this encounter Care Teams Commodities Broker Relationship Specialty Start Date End Date Aj Gaston III, MD [address] [place] [address] PCP - General Family Medicine 05/12/23 documented as of this encounter
--- OUTSIDE RECORDS SUMMARY | 2023-08-15 08:05 | External Medical Summary | Summary of Care ---
Author Name Unknown Organization [facility] Address [address] [place] [address] Phone [phone] Care Team Providers Care End Maker Name Role Phone Marilin MICHAELS MD, Aj Westfall Primary Care Provider [phone] Reason for Visit * Reason Comments Hospital Follow-Up Encounter Details Date Type Department Care Team Description 07/14/2023 Office Visit [facility] [address] [place] [address] Aj Gaston III, MD 200 [facility] [place] [address] Hospital discharge follow-up*; Alcohol withdrawal syndrome without complication (HCC); Anxiety Allergies Active Allergy Reactions Severity Noted Date Comments Nickel Rash 06/01/2018 documented as of this encounter (statuses as of 07/17/2023) Medications Medication Sig Dispensed Refills Start Date [...] as of this encounter (statuses as of 07/17/2023) Active Problems Problem Noted Date Major depressive disorder, recurrent epi sode, moderate 11/15/2018 Depression with anxiety 10/19/2016 Malaise and fatigue 08/18/2010 Tobacco use disorder 11/02/2007 Elevated liver enzymes Migraine Insomnia documented as of this encounter (statuses as of 07/17/2023) Resolved Problems Problem Noted Date Resolved Date Alcohol abuse, in remission 04/24/2023 07/2 05/2023 Routine medical exam 08/18/2010 05/09/2018 documented as of this encounter (statuses as of 07/17/2023) Immunizations Name Administration Dates Next Due Covid-19, [...] Former Cigarettes 0.5 20 Smokeless Tobacco: Never Tobacco Cessation:Counseling Given: Not Answered Alcohol Use Standard Drinks/Week Comments Not Currently 56 (1 standard drink = 0.6 oz pu re alcohol) 8-10 shots per day Sex Assigned at Date Recorded Not on file Job Start Date Occupation Industry Not on file Not on file Not on file documented as of this encounter Last Filed Vital Signs Vital Sign Reading Time Taken Comments Blood Pressure 96/69 07/14/2023 2:08 PM EDT Pulse 76 07/14/2023 2:08 PM EDT Temperature 36.5 C (97.7 F) 07/14/2023 2:08 PM ED T Respiratory Rate 16 07/14/2023 2:08 PM EDT Oxygen Saturation - - Inhaled Oxygen Concentration - - Weight 62.1 kg (137 lb) 07/14/2023 2:08 PM EDT Height - - Body Mass Index 23.5 05/17/2023 11:43 AM EDT documented in this encounter Progress Notes * Aj Gaston III, MD - 07/14/2023 2:36 PM EDT Subjective: Emma Lundberg is a 42 year old female. Chief Complaint Patient presents with Hospital Follow-Up HPI: Hospital discharge follow-up alcohol while all withdrawal has been anxious feels a little shaky multiple meds have been tried in the past for anxiety did feel that gabapentin was helpful she wastaper down and off denies chest pain shortness of breath no current abdominal pain no swelling PMH: Patient Active Problem List Diagnosis Code Tobacco use disorder F17.200 Malaise and fatigue R53.81, R53.83 Depression with anxiety F41.8 Elevated liver enzymes R74.8 Migraine G43.909 Insomnia G47.00 Major depressive disorder, recurrent episode, moderate (HCC) F33.1 Current Outpatient Medications Medication Sig Dispense Refill VENTOLIN HFA 108 (90 Base) MCG/ACT inhaler INHALE 2 PUFFS BY MOUTH 4 TIMES A DAY 18 g 1 Amitriptyline HCl 50 MG Oral Tablet (Elavil) Take 1 Tablet by mouth at bedtime. Use as needed- may use 1/2 to full tab. Ondansetron HCl 4 MG Oral Tablet Take 1 Tablet by mouth every 6 hours as needed for Nausea. 30 Tablet 0 Acetaminophen 500 MG Oral Tablet Take 1 Tablet by mouth every 6 hours as needed. Thiamine HCl 100 MG Oral Tablet Take 1 Tablet by mouth in the morning. Folic Acid 1 MG Oral Tablet Take 1 Tablet by mouth in the morning. Diclofenac Sodium 1 % External Gel (Voltaren) Apply topically to affected area as needed for Pain, Moderate. Apply to injured ankle as needed 150 g 5 busPIRone HCl 10 MG Oral Tablet (Buspar) Take 1 Tablet by mouth in the morning and 1 Tablet at noonand 1 Tablet before bedtime. 90 Tablet 5 hydrOXYzine HCl 25 MG Oral Tablet Take 1 Tablet by mouth every 6 hours as needed for Anxiety. 40 Tablet 2 Melatonin 10 MG Oral Tablet Take 1 Tablet by mouth at bedtime. 30 Tablet 6 valACYclovir HCl 1 GM Oral Tablet (Valtrex) TAKE 1 TABLET BY MOUTH IN THE MORNING AND 1 TAB BEFORE BEDTIME FOR 7 DAYS 14 Tablet 1 No current facility-administered medications for this visit. Review of patient's allergies indicates: Allergen Reactions Nickel Rash Past Medical History: Diagnosis Date Alcohol abuse, in remission Elevated liver enzymes Insomnia Migraine NONE Past Surgical History: Procedure Laterality Date DENTAL SURGERY PROCEDURE NEC 09/27/1999 US GUIDED BREAST BIOPSY LEFT Left 07/12/2023 Objective: The patient is a 42 year old female BP 96/69 | Pulse 76 | Temp 36.5 C (97.7 F) | Resp 16 | Wt 62.1 kg (137 lb) | BMI 23.50 kg/m |BSA 1.67 m General: alert, healthy, and no distress Eye Exam: PERRLA, extraocular movements intact, conjunctiva are pink and non- injected, sclera clear Oropharynx: no exudate, no erythema, lips, buccal mucosa, and tongue normal, and mucous membranes are moist Heart: regular rate & rhythm, no murmur, and no gallops Lungs: lungs clear to auscultation Abdomen: abdomen soft, non-tender, normal bowel sounds, and no masses or organomegaly Extremities: no edema, no clubbing, no cyanosis ASSESSMENT: Z09 Hospital discharge follow-up (primary encounter diagnosis) F10.930 Alcohol withdrawal syndrome without complication (HCC) F41.9 Anxiety PLAN: Discussed for begin a trial of gabapentin 300 mg at bedtime for 5 days then twice daily for 5 days 3 times daily discussed some swelling potential weight gain encourage exercise flu vaccine given does have counselor Follow up in 2 week(s). Aj Gaston III, MD documented in this encounter Nursing Notes * Eneida Carrillo RN - 07/14/2023 2:13 PM EDT Pt has increasing generalized anxiety. documented in this encounter Plan of Treatment Upcoming Encounters Date Type Specialty Care Team Description 07/28/2023 Office Visit Family Medicine Aj Gaston III, MD [address] [place] [address] Health Maintenance Due Date Last Done Comments Hepatitis B (1 of 3 - 3-dose series) 1980 HPV/Co-Test 2012 COVID-19 Vaccine (2022- season) 2023 09/23/2022 Influenza Vaccine (FLU shot) [...] as of this encounter Visit Diagnoses Diagnosis Hospital discharge follow-up- Primary Other follow-up examination Alcohol withdrawal syndrome without complication (HCC) Anxiety Anxiety state, unspecified documented in this encounter Care Teams End Maker Relationship Specialty Start Date End Date Aj Gaston III, MD [address] [place] [address] PCP - General Family Medicine 05/12/23 documented as of this encounter"
--- OUTSIDE RECORDS SUMMARY | 2023-08-15 08:05 | External Medical Summary | Summary of Care ---
Author Name Unknown Organization [facility] Address [address] [place] [address] Phone [phone] Care Team Providers Care Mutuel Machine Operator Name Role Phone Marilin MICHAELS MD, Aj Westfall Primary Care Provider [phone] Reason for Visit * Reason Comments Re-Check Encounter Details Date Type Department Care Team (Late st Contact Info) Description 07/28/2023 3:40 PM EDT Office Visit Family Practice [facility] [address] [place] [address] Aj Gaston III, MD [address] [place] [address] Anxiety*; Depression, major, recurrent, mild (HCC) Allergies Active Allergy Reactions Criticality Noted Date Comments Nickel Rash 06/01/2018 documented as of this encounter (statuses as of 07/31/2023) Medications Medication Sig Dispensed Refills Start Date [...] as of this encounter (statuses as of 07/31/2023) Active Problems Problem Noted Date Diagnosed Date Major depressive disorder, recurrent episode, mo derate 11/15/2018 Depression with anxiety 10/19/2016 Malaise and fatigue 08/18/2010 Tobacco use disorder 11/02/2007 Elevated liver enzymes Migraine Insomnia documented as of this encounter (statuses as of 07/31/2023) Resolved Problems Problem Noted Date Diagnosed Date Resolved Date Alcohol abuse, in remission 04/24/2023 04/24/2023 Routine medical exam 08/18/2010 018 documented as of this encounter (statuses as of 07/31/2023) Immunizations Name Administration Dates Next Due Covid-19, [...] Sign Reading Time Taken Comments Blood Pressure 100/74 07/28/2023 3:33 PM EDT Pulse 80 07/28/2023 3:33 PM EDT Temperature 36.6 C (97.8 F) 07/28/2023 3:33 PM ED T Respiratory Rate 16 07/28/2023 3:33 PM EDT Oxygen Saturation - - Inhaled Oxygen Concentration - - Weight 61.2 kg (135 lb) 07/28/2023 3:33 PM EDT Height - - Body Mass Index 23.16 05/17/2023 11:43 AM EDT documented in this encounter Progress Notes * Marilin MICHAELS, Aj Westfall MD - 07/28/2023 4:03 PM EDT Subjective: Emma Lundberg is a 42 year old female. 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 Review of patient's allergies indicates: Allergen Reactions Nickel Rash Past Medical History: Diagnosis Date Alcohol abuse, in remission Elevated liver enzymes Insomnia Migraine NONE Past Surgical History: Procedure Laterality Date DENTAL SURGERY PROCEDURE NEC 09/27/1999 US GUIDED BREAST BIOPSY LEFT Left 07/12/2023 Objective: The patient is a 42 year old female BP 100/74 | Pulse 80 | Temp 36.6 C (97.8 F) | Resp 16 | Wt 61.2 kg (135 lb) | BMI 23.16 kg/m | BSA 1.66 m General: alert, healthy, and no distress Oropharynx: no exudate, no erythema, lips, buccal mucosa, and tongue normal, and mucous membranes are moist Heart: regular rate & rhythm, no murmur, and no gallops Lungs: lungs clear to auscultation Extremities: no edema, no clubbing, no cyanosis ASSESSMENT: F41.9 Anxiety (primary encounter diagnosis) F33.0 Depression, major, recurrent, mild (HCC) PLAN: Continue gabapentin has been trying to cut down off cigarettes now vaping and cutting back encourage to keep going call if problems hepatitis-B vaccine flu vaccine discussed does not wish to start right now Follow up in 3 month(s). Aj Gaston III, MD documented in this encounter Plan of Treatment Upcoming Encounters Date Type Department Care Team (Late st Contact Info) Description 11/24/2023 1:40 PM EST Office Visit Family Practice [facility] [address] [place] [address] Aj Gaston III, MD 200 [place] [address] Health Maintenance Due Date Last Done Comments [...] as of this encounter Visit Diagnoses Diagnosis Anxiety- Primary Anxiety state, unspecified Depression, major, recurrent, mild (HCC) Major depressive disorder, recurrent episode, mild documented in this encounter Care Teams Mutuel Machine Operator Relationship Specialty Start Date End Date Aj Gaston III, MD [address] [place] [address] PCP - General Family Medicine 05/12/23 documented as of this encounter"
--- OUTSIDE RECORDS SUMMARY | 2023-08-15 08:06 | External Medical Summary | Summary of Care ---
Author Name Unknown Organization [facility] Address [address] [place] [address] Phone [phone] Care Team Providers Care Gasser Machine Operator Name Role Phone Marilin MICHAELS MD, Aj Westfall Primary Care Provider [phone] Reason for Visit * Reason Comments Follow Up Encounter Details Date Type Department Care Team Description 06/23/2023 Office Visit Family Practice [facility] [address] [facility] [place] [address] Therese Perez PA-C [address] [facility] [place] [address] DOLLY (generalized anxiety disorder)*; Alcohol dependence, PCP tx ([facility]); Major depressive disorder, recurrent episode, moderate ([facility]) Allergies Active Allergy Reactions Severity Noted Date Comments Nickel Rash 06/01/2018 documented as of this encounter (statuses as of 06/23/2023) Medications Medication Sig Dispensed Refills Start Date End Date Status Melatonin 10 MG Tablet Take 1 Tab by mouth at bedtime. 0 11/15/2018 Active VENTOLIN HFA 108 (90 Base) MCG/ACT inhaler INHALE 2 PUFFS BY MOUTH 4 TIMES A DAY 18 g 1 04/17/2019 Active Amitriptyline HCl 50 MG Oral Tablet (Elavil) Take 1 Tablet by mouth at bedtime. Use as needed- may use 1/2 to full tab. 0 Active valACYclovir HCl 1 GM Oral Tablet (Valtrex) TAKE 1 TABLET BY MOUTH IN THE MORNING AND 1 TAB BEFORE BEDTIME FOR 7 DAYS 14 Tablet 1 12/07/2022 Active Ondansetron HCl 4 MG Oral TabletIndication s:Nausea and vomiting, unspecified vomiting type Take 1 [...] Active busPIRone HCl 10 MG Oral Tablet (Buspar)Indicati ons:DOLLY (generalized anxiety disorder) Take 1 Tablet by mouth in the morning and 1 Tablet at noon and 1 Tablet before bedtime. 90 Tablet 5 06/23/2023 Active hydrOXYzine HCl 25 MG Oral Tablet Take 1 Tablet by mouth every 6 hours as needed for Anxiety. 40 Tablet 2 06/23/2023 Active oxyCODONE HCl 5 MG Oral Tablet (Oxy IR) Take 1 Tablet by mouth every 8 hours as needed. 0 05/10/2023 3 Discontinued(Pat ient preference/disco ntinuation) busPIRone HCl 5 MG Oral Tablet (Buspar)Indicati ons:DOLLY (generalized anxiety disorder) Take 1 Tablet by mouth in the morning and 1 Tablet at noon and 1 Tablet before bedtime. 90 Tablet 3 05/17/2023 3 Discontinued documented as of this encounter (statuses as of 06/23/2023) Active Problems Problem Noted Date Major depressive disorder, recurrent epi sode, moderate 11/15/2018 Depression with anxiety 10/19/2016 Malaise and fatigue 08/18/2010 Tobacco use disorder 11/02/2007 Elevated liver enzymes Migraine Insomnia documented as of this encounter (statuses as of 06/23/2023) Resolved Problems Problem Noted Date Resolved Date Alcohol abuse, in remission 04/24/2023 07/2 05/2023 Routine medical exam 08/18/2010 05/09/2018 documented as of this encounter (statuses as of 06/23/2023) Immunizations Name Administration Dates Next Due Covid-19, [...] Sign Reading Time Taken Comments Blood Pressure 87/61 06/23/2023 5:08 PM EDT Pulse 82 06/23/2023 5:08 PM EDT Temperature 36.2 C (97.2 F) 06/23/2023 5:08 PM ED T Respiratory Rate 16 06/23/2023 5:08 PM EDT Oxygen Saturation - - Inhaled Oxygen Concentration - - Weight 61.2 kg (135 lb) 06/23/2023 5:08 PM EDT Height - - Body Mass Index 23.16 05/17/2023 11:43 AM EDT documented in this encounter Progress Notes * Therese Perez PA-C - 06/23/2023 5:30 PM EDT Images from the original note were not included. History of Present Illness Emma Nguyễn Toño is a 42 year old female that presents for Follow Up Patient is a 42 year old female who presents for a follow up. Was hospitalized in April. Was hospitalized for alcohol and low magnesium. Last drink was 2.5 weeks ago. Lives alone. .seeing [facility] weekly. Seen at [facility], [facility] is once a month. Still experiencing anxiety. Taking buspar 5 mg 3 times daily. Appetite increased Sleep fair/night wakenings Concentration good Interest good Mood swings present Denies suicidal or homicidal ideation Physical Exam Vitals: 06/23/23 1708 Temp: 36.2 C (97.2 F) Pulse: 82 Resp: 16 BP: 87/61 BP Readings from Last 3 Encounters: 06/23/23 87/61 05/17/23 112/74 04/27/23 106/70 Wt Readings from Last 3 Encounters: 06/23/23 61.2 kg (135 lb) 05/17/23 59 kg (130 lb) 04/27/23 57.7 kg (127 lb 3.2 oz) General: alert, healthy, no distress, well nourished, well developed, comfortable, and cooperative Head: Normocephalic, No masses, lesions, tenderness or abnormalities Eye Exam: PERRLA, extraocular movements intact, conjunctiva are pink and non- injected, sclera clear Neck: supple, no adenopathy, no bruits, thyroid normal size, non-tender, without nodularity Heart: regular rate & rhythm, no murmur, and no gallops Lungs: chest symmetric with normal AP diameter, no chest deformities noted, normal respiratory rateand rhythm, no chest wall tenderness, diaphragmatic excursion normal, lungs clear to auscultation Extremities: less than 2 second capillary refill, no joint deformities, effusion, or inflammation, no edema, no skin discoloration, no clubbing, no cyanosis I have reviewed the following results: None Assessment and Plan DOLLY (generalized anxiety disorder) (Primary) - busPIRone HCl 10 MG Oral Tablet (Buspar); Take 1 Tablet by mouth in the morning and 1 Tablet at noon and 1 Tablet before bedtime. Alcohol dependence, PCP tx (HCC) Major depressive disorder, recurrent episode, moderate (HCC) Other orders - hydrOXYzine HCl 25 MG Oral Tablet; Take 1 Tablet by mouth every 6 hours as needed for Anxiety. Follow Up: Return in about 7 weeks (around 08/11/2023) for Clinic Visit. | For: Clinic Visit Wrap-Up Time: I spent a total of 20-29 minutes (exact time 27 mins) on the date of service in preparation, delivery, and documentation of the care provided to Emma Lundberg excluding any time spent in the performance of separately billed services. * Eneida Carrillo RN - 06/23/2023 5:07 PM EDT Pt has been anxious about mammogram. documented in this encounter Plan of Treatment Upcoming Encounters Date Type Specialty Care Team Description 08/12/2023 Office Visit Family Medicine Therese Perez PA-C [address] [place] [address] Health Maintenance Due Date Last Done Comments Hepatitis B (1 of 3 - 3-dose series) 1982 HPV/Co-Test 2012 Depression, Most Recent Score >= 10 (will fire each visit until score < 10) 04/28/2023 04/27/2023 Influenza Vaccine (FLU shot) (#1) 2023 Mammogram 06/21/2024 06/21/2023 Cervical Cancer Screening 08/27/2024 Pap Smear [...] on patient's age to complete this topic COVID-19 Vaccine Completed 09/23/2022 GARDASIL-HPV IMMUNIZATION SERIES Aged Out No longer eligible based on patient's age to complete this topic MENINGOCOCCAL (MENACTRA/MENVEO) Aged Out No longer eligible based on patient's age to complete this topic documented as of this encounter Medical Devices Not on filedocumented as of this encounter Visit Diagnoses Diagnosis DOLLY (generalized anxiety disorder)- Primary Generalized anxiety disorder Alcohol dependence, PCP tx (HCC) Other and unspecified alcohol dependence, unspecified drinking behavior Major depressive disorder, recurrent episode, moderate (HCC) Major depressive disorder, recurrent episode, moderate documented in this encounter Care Teams Gasser Machine Operator Relationship Specialty Start Date End Date Aj Gaston III, MD [address] [facility] [place] [address] PCP - General Family Medicine 05/12/23 documented as of this encounter"
--- OUTSIDE RECORDS SUMMARY | 2023-08-15 08:06 | External Medical Summary | Summary of Care ---
Author Name Unknown Organization [facility] Address [address] [place] [address] Phone [phone] Care Team Providers Care Rug Cleaner Hand Name Role Phone Marilin MICHAELS MD, Aj Westfall Primary Care Provider [phone] Reason for Visit * Reason Onset Date Comments Left Message 07/13/2023 Encounter Details Date Type Department Care Team Description 07/13/2023 Electrical Unit Rebuilder Telephone Care Coordination [address] [place] [address] Mary Anne Ayon RN [address] [place] [address] Left Message Allergies Active Allergy Reactions Severity Noted Date Comments Nickel Rash 06/01/2018 documented as of this encounter (statuses as of 07/13/2023) Medications Medication Sig Dispensed Refills Start Date End Date Status VENTOLIN HFA 108 (90 Base) MCG/ACT inhaler INHALE 2 PUFFS BY MOUTH 4 TIMES A DAY 18 g 1 04/17/2019 Active Amitriptyline HCl 50 MG Oral Tablet (Elavil) Take 1 Tablet by mouth at bedtime. Use as needed- may use 1/2 to full tab. 0 Active Ondansetron HCl 4 MG Oral TabletIndications :Nausea and vomiting, unspecified vomiting type Take 1 [...] Active busPIRone HCl 10 MG Oral Tablet (Buspar)Indicatio ns:DOLLY (generalized anxiety disorder) Take 1 Tablet by mouth in the morning and 1 Tablet at noon and 1 Tablet before bedtime. 90 Tablet 5 06/23/2023 Active hydrOXYzine HCl 25 MG Oral Tablet Take 1 Tablet by mouth every 6 hours as needed for Anxiety. 40 Tablet 2 06/23/2023 Active valACYclovir HCl 1 GM Oral Tablet (Valtrex) TAKE 1 TABLET BY MOUTH IN THE MORNING AND 1 TAB BEFORE BEDTIME FOR 7 DAYS 14 Tablet 1 07/12/2023 Active Melatonin 10 MG Tablet Take 1 Tab by mouth at bedtime. 0 11/15/2018 07/10/2023 Discontinued (Refill) documented as of this encounter (statuses as of 07/13/2023) Active Problems Problem Noted Date Major depressive disorder, recurrent epi sode, moderate 11/15/2018 Depression with anxiety 10/19/2016 Malaise and fatigue 08/18/2010 Tobacco use disorder 11/02/2007 Elevated liver enzymes Migraine Insomnia documented as of this encounter (statuses as of 07/13/2023) Resolved Problems Problem Noted Date Resolved Date Alcohol abuse, in remission 04/24/2023 07/2 05/2023 Routine medical exam 08/18/2010 05/09/2018 documented as of this encounter (statuses as of 07/13/2023) Immunizations Name Administration Dates Next Due Covid-19, [...] encounter Miscellaneous Notes * Telephone Encounter - Mary Anne Ayon RN - 07/13/2023 10:27 AM EDT Follow-up Post Discharge Attempted Phone Call Second Attempt Call Outcome Left Voicemail/Message Plan To attempt another outreach Mary Anne Ayon RN documented in this encounter Plan of Treatment Upcoming Encounters Date Type Specialty Care Team Description 07/14/2023 Office Visit Family Medicine Aj Gaston III, MD [address] [place] [address] 08/12/2023 Office Visit Family Medicine Therese Perez PA-C [address] [place] [address] Health Maintenance Due Date Last Done Comments Hepatitis B (1 of 3 - 3-dose series) 1982 HPV/Co-Test 2012 Depression, Most Recent Score >= 10 (will fire each visit until score < 10) 04/28/2023 04/27/2023 COVID-19 Vaccine ( season) 2023 09/23/2022 Influenza Vaccine (FLU shot) (#1) 2023 Mammogram 06/28/2024 06/28/2023, 06/21/2023 Cervical Cancer Screening [...] filedocumented as of this encounter Care Teams Rug Cleaner Hand Relationship Specialty Start Date End Date Aj Gaston III, MD [address] [place] [address] [place] [address] PCP - General Family Medicine 05/12/23 documented as of this encounter
--- OUTSIDE RECORDS SUMMARY | 2023-08-15 08:06 | External Medical Summary | Summary of Care ---
Author Name Unknown Organization [facility] Address [address] [place] [address] Phone [phone] Care Team Providers Care Supervisor Plastics Name Role Phone Marilin MICHAELS MD, Aj Westfall Primary Care Provider [phone] Reason for Visit * Reason Onset Date Comments Medication Refill 07/10/2023 Encounter Details Date Type Department Care Team Description 07/10/2023 Refill Family Practice [facility] [address] [place] [address] Nasreen Ford, [address] [place] [address] Allergies Active Allergy Reactions Severity Noted Date Comments Nickel Rash 06/01/2018 documented as of this encounter (statuses as of 07/12/2023) Medications Medication Sig Dispensed Refills Start Date [...] 7 DAYS 14 Tablet 1 07/12/2023 Active valACYclovir HCl 1 GM Oral Tablet (Valtrex) TAKE 1 TABLET BY MOUTH IN THE MORNING AND 1 TAB BEFORE BEDTIME FOR 7 DAYS 14 Tablet 1 12/07/2022 07/10/2023 Discontinued (Refill) documented as of this encounter (statuses as of 07/12/2023) Active Problems Problem Noted Date Major depressive disorder, recurrent epi sode, moderate 11/15/2018 Depression with anxiety 10/19/2016 Malaise and fatigue 08/18/2010 Tobacco use disorder 11/02/2007 Elevated liver enzymes Migraine Insomnia documented as of this encounter (statuses as of 07/12/2023) Resolved Problems Problem Noted Date Resolved Date Alcohol abuse, in remission 04/24/2023 07/2 05/2023 Routine medical exam 08/18/2010 05/09/2018 documented as of this encounter (statuses as of 07/12/2023) Immunizations Name Administration Dates Next Due Covid-19, [...] encounter Miscellaneous Notes * Telephone Encounter - Martha Diamond RPh - 07/12/2023 9:05 AM EDTSigned Prescriptions: Disp Refills valACYclovir HCl 1 GM Oral Tablet (Valtrex)14 Tab*1 Sig: TAKE 1 TABLET BY MOUTH IN THE MORNING AND 1 TAB BEFORE BEDTIME FOR 7 DAYSAuthorizing Provider: VIOLETA JOSE User: MARTHA DIAMOND documented in this encounter Plan of Treatment Upcoming Encounters Date Type Specialty Care Team Description 07/12/2023 Imaging Radiology 07/12/2023 Imaging Radiology 07/14/2023 Office Visit Family Medicine Marilin III, Aj Westfall MD [address] [place] [address], [place] [address] 08/12/2023 Office Visit Family Medicine AnaTherese, JULIA [address] [place] [address] Health Maintenance Due Date Last Done Comments Hepatitis B (1 of 3 - 3-dose series) 1982 HPV/Co-Test 2012 Depression, Most Recent Score >= 10 (will fire each visit until score < 10) 04/28/2023 04/27/2023 COVID-19 Vaccine (2 - 2022- season) 2023 [...] filedocumented as of this encounter Care Teams Supervisor Plastics Relationship Specialty Start Date End Date Aj Gaston III, MD [address] [place] [address] PCP - General Family Medicine 05/12/23 documented as of this encounter
--- OUTSIDE RECORDS SUMMARY | 2023-08-15 08:06 | External Medical Summary | Summary of Care ---
Author Name Unknown Organization [facility] Address [address] [place] [address] Phone [phone] Care Team Providers Care Mill Platform Supervisor Name Role Phone Marilin MICHAELS MD, Aj Westfall Primary Care Provider [phone] Reason for Visit * Reason Onset Date Comments Status Check 07/15/2023 Encounter Details Date Type Department Care Team Description 07/15/2023 Telephone Family Practice [facility] [address] [place] [address] Aj Gaston III, MD [address] [place] [address] Status Check Allergies Active Allergy Reactions Severity Noted Date [...] encounter Miscellaneous Notes * Telephone Encounter - Emy Waldrop LPN - 07/16/2023 12:15 PM EDT Gabapentin was sent in today by Dr. Gaston. * Telephone Encounter - GLORIA Perez Tech - 07/15/2023 4:26 PM EDT Patient calling in because she saw doctor Marilin yesterday and he was supposed to send in a prescription for gabapentin. Please send in a new prescription if appropriate as soon as possible. [id number] [facility] [place] Gabby Marie Gravity Prospector II [facility] [address] [facility] [address] 07/15/2023 4:28 PM documented in this encounter Plan of Treatment Upcoming Encounters Date Type Specialty Care Team Description 07/28/2023 Office Visit Family Medicine Marilin MICHAELS, Aj Westfall MD [address] [place] [address] Health Maintenance Due Date Last Done Comments [...] filedocumented as of this encounter Care Teams Mill Platform Supervisor Relationship Specialty Start Date End Date Aj Gaston III, MD [address] [place] [address] [place] [address] PCP - General Family Medicine 05/12/23 documented as of this encounter
--- OUTSIDE RECORDS SUMMARY | 2023-08-15 08:06 | External Medical Summary | Summary of Care ---
Author Name Unknown Organization [facility] Address [address] [place] [address] Phone [phone] Care Team Providers Care Bonderizer Name Role Phone Marilin MICHAELS MD, Aj Westfall Primary Care Provider [phone] Reason for Visit * Reason Onset Date Comments Medication Refill 06/12/2023 Med Request 06/12/2023 Buspar Encounter Details Date Type Department Care Team Description 06/12/2023 Telephone Family Practice [facility] [address] [place] [address] Aj Gaston III, MD [address] [place] [address] Medication Refill; Med Request (Buspar) Allergies Active Allergy Reactions Severity Noted Date Comments Nickel Rash 06/01/2018 documented as of this encounter (statuses as of 06/16/2023) Medications Medication Sig Dispensed Refills Start Date [...] 12/07/2022 Active Ondansetron HCl 4 MG Oral TabletIndications:Na [...] mouth in the morning. 0 05/10/2023 Active oxyCODONE HCl 5 MG Oral Tablet (Oxy IR) Take 1 Tablet by mouth every 8 hours as needed. 0 05/10/2023 Active Folic Acid 1 MG Oral Tablet Take 1 Tablet by mouth in the morning. 0 05/10/2023 Active Diclofenac Sodium 1 % External Gel (Voltaren) Apply topically to affected area as needed for Pain, Moderate. Apply to injured ankle as needed 150 g 5 05/17/2023 Active busPIRone HCl 5 MG Oral Tablet (Buspar)Indications: DOLLY (generalized anxiety disorder) Take 1 Tablet by mouth in the morning and 1 Tablet at noon and 1 Tablet before bedtime. 90 Tablet 3 05/17/2023 Active documented as of this encounter (statuses as of 06/16/2023) Active Problems Problem Noted Date Major depressive disorder, recurrent epi sode, moderate 11/15/2018 Depression with anxiety 10/19/2016 Malaise and fatigue 08/18/2010 Tobacco use disorder 11/02/2007 Elevated liver enzymes Migraine Insomnia documented as of this encounter (statuses as of 06/16/2023) Resolved Problems Problem Noted Date Resolved Date Alcohol abuse, in remission 04/24/2023 07/2 05/2023 Routine medical exam 08/18/2010 05/09/2018 documented as of this encounter (statuses as of 06/16/2023) Immunizations Name Administration Dates Next Due Covid-19, [...] encounter Miscellaneous Notes * Telephone Encounter - GLORIA Bird - 06/16/2023 8:40 AM EDT Pt had left after hours vm over weekend for buspar refill. Already addressed above. Thank You, Lori Guardado CPhT Photocomposition Keyboard Operator II [facility] 06/16/2023, 8:41 AM * Telephone Encounter - Esther Salinas LPN - 06/14/2023 1:54 PM EDT Provider to address: n/a Reason for Call: Medication Refill and Med Request (Buspar) Contact: Telephone Call Contact Type: Medication Outcome: Patient called and informed on identified answering machine that buspirone was sent on 05/17/23 with 3 refills and to call the pharmacy for a refill. Total Time including non face to face (minutes): 5 * Telephone Encounter - PATTIE Brantley - 06/12/2023 4:00 PM EDT Patient calling to request refill of busPIRone HCl 5 MG Oral Tablet (Buspar). documented in this encounter Plan of Treatment Upcoming Encounters Date Type Specialty Care Team Description 06/21/2023 Imaging Radiology 06/23/2023 Office Visit Family Medicine Therese Perez, JULIA [address] [place] [address] Health Maintenance Due Date Last Done Comments Hepatitis B (1 of 3 - 3-dose series) 1980 HPV/Co-Test 2012 Mammogram 2022 Depression, Most Recent Score >= 10 (will fire each visit until score < 10) 04/28/2023 04/27/2023 Influenza Vaccine (FLU shot) (#1) 2023 Cervical Cancer Screening 08/27/2024 Pap Smear 08/27/2024 [...] encounter Visit Diagnoses Diagnosis DOLLY (generalized anxiety disorder) Generalized anxiety disorder documented in this encounter Care Teams Bonderizer Relationship Specialty Start Date End Date Aj Gaston III, MD [address] [facility] [place] [address] PCP - General Family Medicine 05/12/23 documented as of this encounter
--- OUTSIDE RECORDS SUMMARY | 2023-08-15 08:06 | External Medical Summary | Summary of Care ---
Author Name Unknown Organization [facility] Address [address] [place] [address] Phone [phone] Care Team Providers Care Automation Test Engineer Name Role Phone Marilin MICHAELS MD, Aj Westfall Primary Care Provider [phone] Reason for Visit * Reason Onset Date Comments Left Message 07/12/2023 Encounter Details Date Type Department Care Team Description 07/12/2023 Glass Grinder Telephone Care Coordination [address] [place] [address] Mary Anne Ayon, JUSTYN [address] [place] [address] Left Message Allergies Active Allergy Reactions Severity [...] Resolved Date Alcohol abuse, in remission 04/24/2023 07/05/2023 Routine medical exam 08/18/2010 05/09/2018 documented as [...] Encounter - Mary Anne Ayon RN - 07/12/2023 1:17 PM EDT Follow-up Post Discharge Attempted Phone Call First Attempt Call Outcome Left Voicemail/Message Plan To attempt another outreach Mary Anne Ayon RN documented in this encounter Plan of Treatment Upcoming Encounters Date Type Specialty Care Team Description 07/14/2023 Office Visit Family Medicine Aj Gaston III, MD [address] [place] [address] 08/12/2023 Office Visit Family Medicine Therese Perez PA-C [address] [place] [address] Health Maintenance Due Date Last Done Comments [...] filedocumented as of this encounter Care Teams Automation Test Engineer Relationship Specialty Start Date End Date Aj Gaston III, MD [address] [place] [address] PCP - General Family Medicine 05/12/23 documented as of this encounter
--- OUTSIDE RECORDS SUMMARY | 2023-08-15 08:06 | External Medical Summary | Summary of Care ---
Author Name Unknown Organization [facility] Address [address] [place] [address] Phone [phone] Care Team Providers Care Personal Care Aide Name Role Phone Marilin MICHAELS MD, Aj Westfall Primary Care Provider [phone] Reason for Referral * Evaluate & Treat - Unlimited Visits (Within 3 days (urgent)) - Pending Review Specialty Diagnoses / Procedures Referred By Melissa peace Referred To Contact Pharmacy Tech Diagnoses Alcohol dependence, PCP tx ([facility]) Aj Gaston III, MD [address] [place] [address] Referral ID Status Reason Start Date Expiration Date Visits Requested Visits Authorized [id number] Pending Review Specialty Services Required 3 1 1 Question Answer Referral Priority Within 3 days (urgent) Where should this appointment be scheduled? [facility] Program Type Case Management Complex Case Management [facility] Health Device(s) Requested Other (See Comment) Alarm Settings Standard per protocol Comments Primary Pharmacy Tech: Anne Vazquez RN Is the patient already enrolled with another [facility] device/service? (If no, will need to "push the button") No Does the patient have a physical address? (If no, provide physical address if requesting device) Yes Requested Devices/IVR: IVR Post-Discharge Start date: 07/20/2023 How many weeks: 4 If want time other than 9am, note time here: call [phone] at 1 pm thanks Mary Anne Ayon RN Reason for Visit * Reason Onset Date Comments case management 07/13/2023 Encounter Details Date Type Department Care Team Description 07/13/2023 Pharmacy Tech Telephone Care Coordination [address] [place] [address] Mary Anne Ayon RN [address] [place] [address] case management Allergies Active Allergy Reactions Severity [...] Date Resolved Date Alcohol abuse, in remission 04/24/202303/28 Routine medical exam 08/18/2010 05/09/2018 documented as [...] Family Medicine Aj Gaston III, MD [address] [place] [address] 08/12/2023 Office Visit Family Medicine Therese Perez PA-C [address] [place] [address] Scheduled Referrals Name Type Priority Associated Diagnoses Orde r Schedule REMOTE PATIENT MONITORING REFERRAL Referral Within 3 days (urgent) Alcohol dependence, PCP tx (HCC) Ordered: 07/13/2023 Health Maintenance Due Date Last Done Comments [...] as of this encounter Visit Diagnoses Diagnosis Alcohol dependence, PCP tx (HCC)- Primary Other and unspecified alcohol dependence, unspecified drinking behavior documented in this encounter Care Teams Personal Care Aide Relationship Specialty Start Date End Date jA Gaston III, MD [address] [place] [address] PCP - General Family Medicine 05/12/23 documented as of this encounter
--- OUTSIDE RECORDS SUMMARY | 2023-08-15 08:06 | External Medical Summary | Summary of Care ---
Author Name Unknown Organization [facility] Address [address] [place] [address] Phone [phone] Care Team Providers Care Entertainment Production Professional Name Role Phone Marilin MICHAELS MD, John E Primary Care Provider [phone] Encounter Details Date Type Department Care Team Description 06/29/2023 Telephone Family Practice [facility] [address] [place] [address] Aj Gaston III, MD [address] [place] [address] Allergies Active Allergy Reactions Severity Noted Date Comments Nickel Rash 06/01/2018 documented as of this encounter (statuses as of 06/29/2023) Medications Medication Sig Dispensed Refills Start Date [...] for Anxiety. 40 Tablet 2 06/23/2023 Active documented as of this encounter (statuses as of 06/29/2023) Active Problems Problem Noted Date Major depressive disorder, recurrent epi sode, moderate 11/15/2018 Depression with anxiety 10/19/2016 Malaise and fatigue 08/18/2010 Tobacco use disorder 11/02/2007 Elevated liver enzymes Migraine Insomnia documented as of this encounter (statuses as of 06/29/2023) Resolved Problems Problem Noted Date Resolved Date Alcohol abuse, in remission 04/24/2023 07/2 05/2023 Routine medical exam 08/18/2010 05/09/2018 documented as of this encounter (statuses as of 06/29/2023) Immunizations Name Administration Dates Next Due Covid-19, [...] Telephone Encounter - Emy Waldrop LPN - 06/29/2023 9:01 AM EDT Orders signed. * Telephone Encounter - PATTIE High - 06/29/2023 8:51 AM EDT Per 06/28 diagnostic breast ultrasound recommendation, patient is scheduled 07/12 for a left ultrasound guided core biopsy. Order pended. Please review and sign if acceptable. Recommendation US guided breast core biopsy is recommended for the left breast. The above findings and recommendations were discussed with and understood by the patient. Thank you documented in this encounter Plan of Treatment Upcoming Encounters Date Type Specialty Care Team Description 07/12/2023 Imaging Radiology 07/12/2023 Imaging Radiology 08/12/2023 Office Visit Family Medicine Therese Perez PA-C [address] [facility] [place] [address] Scheduled Orders Name Type Priority Associated Diagnoses Orde r Schedule US GUIDED BREAST BIOPSY LEFT Medical Imaging Routine Abnormal ultrasound of breast Expected: 06/29/2023, Expires: 07/30/2024 Health Maintenance Due Date Last Done Comments Hepatitis B (1 of 3 - 3-dose series) 1982 HPV/Co-Test 2012 Depression, Most Recent Score >= 10 (will fire each visit until score < 10) 04/28/2023 04/27/2023 COVID-19 Vaccine ( - 2022- season) 2023 09/23/2022 Influenza Vaccine [...] as of this encounter Visit Diagnoses Diagnosis Abnormal ultrasound of breast- Primary Other (abnormal) findings on radiological examination of breast documented in this encounter Care Teams Entertainment Production Professional Relationship Specialty Start Date End Date jA Gaston III, MD [address] [place] [address], [place] [address] PCP - General Family Medicine 05/12/23 documented as of this encounter
--- OUTSIDE RECORDS SUMMARY | 2023-08-15 08:06 | External Medical Summary | Summary of Care ---
Author Name Unknown Organization [facility] Address [address] [place] [address] Phone [phone] Care Team Providers Care Geophysical Drafter Name Role Phone Marilin MICHAELS MD, Aj Westfall Primary Care Provider [phone] Encounter Details Date Type Department Care Team Description 07/13/2023 Portable Canteen Operator Care Coordination [address], [place] [id number] Mary Anne Ayon, JUSTYN [address], [place] [id number] Alcohol dependence, PCP tx ([facility])* Allergies Active Allergy Reactions Severity Noted Date [...] as of this encounter Progress Notes * Mary Anne Ayon RN - 07/13/2023 12:24 PM EDT Portable Canteen Operator Progress Note: Date: 07/13/23 Assigned Patient Tier: 2 Connected with patient via phone. Verified patient name/. Advised patient that call is being recorded for quality and training purposes. Assessment: Pt. noted the following: Patient denies SOB, cough or angina Says she has some swelling to her left foot, improving, injured about 1 month ago Has a good appetite, denies bowel/bladder complaints No complaints of pain Patient says she had a left breast biopsy yesterday, feels stressed about the results Patient says she does not sleep well at night Patient lives alone in a loft Says she is independent with ambulation & ADL's, still drives, manages her own medications Patient states she has the paperwork to complete for an Advance directive Patient confirms that the is followed for [facility] for psychiatry. Patient states she has been ETOH free for more than 10 years, recently restarted drinking recently due to stressors Her goal is to stop drinking ETOH Referral to [facility] Coordinator Confirmed follow up appointment with Dr. Gaston on 07/14/23 Will enroll in post discharge IVR Did you receive an alert for an annual wellness visit? No Is this call for a hospital, prison or rehab facility discharge to home? Yes Patient [facility], treated for ETOH withdrawal, discharged home on 07/09/23 Medication Reconciliation: Medication Reconciliation completed: yes Review of Current goals: Discussed the following patient-centered CM goals with the patient during this discussion: -TREATMENT: Heal and maintain skin integrity -Status: On Track left breast biopsy site healing, no redness, drainage or swelling. -Behavioral Health: Patient will participate in their recovery. -Status: On Hold patient followed by [facility] for psychiatry, [facility] specialist referral made. -SAFETY: Prevent falls or injuries -Status: On Track Patient independent with ambulation & ADL's, no report of falls. COPD Patient: No CHF Patient: NO CM Plan: Reviewed 3 Red Flags with patient. Advised to call CM with any of the following: Red Flag 1: increased SOB, cough, Red Flag 2: fever, chils, or Red Flag 3: increased weakness Remote Patient Monitoring: [facility] IV Plan for Future Contacts: Plan to follow up within 1 week to check progress on the following goals/needs as above. Planned contacts from the following parties will occur this week: PCP office visit as additional contacts per workflow. Advancement/Closure Plan: Keep patient at current Tier with reassessment per workflow. Patient provided CM contact information and encouraged to call with any changes in condition. SNP Member? No PCP Notified of enrollment in CM/HM program: Yes Is Provider in agreement with POC? Yes Mary Anne Ayon RN Outpatient Case Management documented in this encounter Plan of Treatment Upcoming Encounters Date Type Specialty Care Team Description 07/14/2023 Office Visit Family Medicine Aj Gaston III, MD [address] [place] [address] 08/12/2023 Office Visit Family Medicine Therese Perez PA-C [address] [place] [address] [address] Health Maintenance Due Date Last Done Comments Hepatitis B (1 of 3 - 3-dose series) 1982 HPV/Co-Test 2012 Depression, Most Recent Score >= 10 (will fire each visit until score < 10) 04/28/2023 04/27/2023 COVID-19 Vaccine (2 - 3-24 season) 2023 09/23/2022 Influenza Vaccine (FLU shot) [...] Visit Diagnoses Diagnosis Alcohol dependence, PCP tx ([facility])- Primary Other and unspecified alcohol dependence, unspecified drinking behavior documented in this encounter Care Teams Geophysical Drafter Relationship Specialty Start Date End Date Aj Gaston III, MD 200 [place] [address] PCP - General Family Medicine 05/12/23 documented as of this encounter
--- OUTSIDE RECORDS SUMMARY | 2023-08-15 08:06 | External Medical Summary | Summary of Care ---
Author Name Unknown Organization [facility] Address [address] [place] [address] Phone [phone] Care Team Providers Care Textile Colorist Dyer Name Role Phone Marilin MICHAELS MD, Aj Westfall Primary Care Provider [phone] Encounter Details Date Type Department Care Team Description 07/12/2023 Telephone [facility] [address] Aj Gaston III, MD [address] [place] [address] Allergies Active Allergy Reactions Severity Noted Date Comments Nickel Rash 06/01/2018 documented as of this encounter (statuses as of 07/15/2023) Medications Medication Sig Dispensed Refills Start Date [...] as of this encounter (statuses as of 07/15/2023) Active Problems Problem Noted Date Major depressive disorder, recurrent epi sode, moderate 11/15/2018 Depression with anxiety 10/19/2016 Malaise and fatigue 08/18/2010 Tobacco use disorder 11/02/2007 Elevated liver enzymes Migraine Insomnia documented as of this encounter (statuses as of 07/15/2023) Resolved Problems Problem Noted Date Resolved Date Alcohol abuse, in remission 04/24/2023 07/2 05/2023 Routine medical exam 08/18/2010 05/09/2018 documented as of this encounter (statuses as of 07/15/2023) Immunizations Name Administration Dates Next Due Covid-19, [...] encounter Miscellaneous Notes * Telephone Encounter - Tylor Luke RDMS - 07/12/2023 2:42 PM EDT Following completion of left breast ultrasound guided core biopsy, discharge instructions were provided and patient expressed understanding. Specimen was delivered to the lab at 2:35 pm. documented in this encounter Plan of Treatment Upcoming Encounters Date Type Specialty Care Team Description 07/28/2023 Office Visit Family Medicine Marilin III, Aj Westfall MD [address] [place] [address] Health Maintenance Due Date Last Done Comments [...] filedocumented as of this encounter Care Teams Textile Colorist Dyer Relationship Specialty Start Date End Date Aj Gaston III, MD [address] [place] [address], [place] [address] PCP - General Family Medicine 05/12/23 documented as of this encounter
--- OUTSIDE RECORDS SUMMARY | 2023-08-15 08:06 | External Medical Summary | Summary of Care ---
Author Name Unknown Organization [facility] Address [address] [place] [address] Phone [phone] Care Team Providers Care Construction Crew Member Name Role Phone Marilin MICHAELS MD, Gumaro Westfall Primary Care Provider [phone] Reason for Visit * Reason Onset Date Comments Medication Refill 07/10/2023 Encounter Details Date Type Department Care Team Description 07/10/2023 Refill Family Practice [facility] [address] [place] [address] Gumaro Rodriguez III, MD [address] [place] [address] Allergies Active Allergy Reactions Severity Noted Date [...] encounter Miscellaneous Notes * Telephone Encounter - Gumaro Rodriguez III, MD - 07/13/2023 10:42 AM EDTSigned Prescriptions: Disp Refills Melatonin 10 MG Oral Tablet 30 Tab*6 Sig: Take 1 Tablet by mouthat bedtime.Authorizing Provider: GUMARO RODRIGUEZ III * Telephone Encounter - Emy Waldrop LPN - 07/13/2023 10:02 AM EDT Pending Prescriptions: Disp Refills Melatonin 10 MG Oral Tablet Sig: Take 1 Tablet by mouth at bedtime. * Telephone Encounter - Emy Waldrop LPN - 07/13/2023 10:01 AM EDT Pending Prescriptions: Disp Refills Melatonin 10 MG Oral Tablet Sig: Take 1 Tablet by mouth at bedtime. Last Visit: 06/23/2023 (in office), 09/03/2021 (telemedicine) Next Visit: 07/14/2023 Last date the medication was ordered: 11/15/2018 Patient Active Problem List Diagnosis Code Tobacco use disorder F17.200 Malaise and fatigue R53.81, R53.83 Depression with anxiety F41.8 Elevated liver enzymes R74.8 Migraine G43.909 Insomnia G47.00 Major depressive disorder, recurrent episode, moderate (HCC) F33.1 Labs: Lab Results Component Value Date/Time CREATININE - [facility] 0.7 04/27/2023 11:24 AM CREATININE - [facility] 0.9 06/12/2020 12:23 PM CREATININE-OUTSIDE LAB 0.67 10/23/2018 12:00 AM Lab Results Component Value Date/Time POTASSIUM - [facility] 4.7 04/27/2023 11:24 AM POTASSIUM - [facility] 5.3 (H) 06/12/2020 12:23 PM POTASSIUM-OUTSIDE LAB 3.4 (A) 10/23/2018 12:00 AM Lab Results Component Value Date/Time TSH - [facility] 1.72 04/27/2023 11:24 AM TSH - [facility] 1.02 06/12/2020 12:23 PM Lab Results Component Value Date/Time LDL CHOLESTEROL (DIRECT MEASURE) - [facility] 99 06/12/2020 12:23 PM Lab Results Component Value Date/Time ALT - [facility] 91 (H) 04/27/2023 11:24 AM ALT - [facility] 14 06/12/2020 12:23 PM ALT-OUTSIDE LAB 108 (A) 05/08/2017 12:00 AM Hemoglobin AIC Results: Lab Results Component Value Date/Time HEMOGLOBIN A1C - [facility] 4.9 06/12/2020 12:23 PM * Telephone Encounter - Imelda Vacajamaal - 07/11/2023 4:33 PM EDTPending Prescriptions: Disp Refills Melatonin 10 MG Oral Tablet Sig: Take 1 Tablet by mouth at bedti me. documented in this encounter Plan of Treatment Upcoming Encounters Date Type Specialty Care Team Description 07/14/2023 Office Visit Family Medicine Marilin MICHAELS, Gumaro Westfall MD [address] [facility] [place] [address] 08/12/2023 Office Visit Family Medicine Therese Perez PA-C [address] [facility] [place] [address] Health Maintenance Due Date Last Done Comments [...] filedocumented as of this encounter Care Teams Construction Crew Member Relationship Specialty Start Date End Date Gumaro Rodriguez III, MD [address] [place] [address] PCP - General Family Medicine 05/12/23 documented as of this encounter
--- OUTSIDE RECORDS SUMMARY | 2023-08-15 08:07 | External Medical Summary | Summary of Care ---
Author Name Unknown Organization [facility] Address [address] [place] [address] Phone [phone] Care Team Providers Care Piecer Up Name Role Phone Marilin MICHAELS MD, Aj Westfall Primary Care Provider [phone] Reason for Referral * Evaluate & Treat - Unlimited Visits (Within 3 days (urgent)) - Pending Review Specialty Diagnoses / Procedures Referred By Melissa peace Referred To Contact Quality Control Industrial Engineer Diagnoses Soft tissue injury of left ankle, initial encounter Aj Gaston III, MD [address] [place] [address] Referral ID Status Reason Start Date Expiration Date Visits Requested Visits Authorized [id number] Pending Review Specialty Services Required 05/13/2023 1 1 Question Answer Referral Priority Within 3 days (urgent) Program Type Case Management Complex Case Management [facility] Health Device(s) Requested Other (See Comment) - post d/c IVR weekly call x 4 Alarm Settings Standard per protocol Comments Post-Discharge Start date: 05/17/23 How many weeks: 4 If want time other than 9am, note time here: Please call after 12:00pm Reason for Visit * Reason Comments case management Encounter Details Date Type Department Care Team Description 05/13/2023 Quality Control Industrial EngineerDiesel Mechanic Apprentice Internal Medicine [facility] 200 [facility] [place] [address] Cheyenne Avila, JUSTYN [address] [place] [address] Medical home patient encounter*; Soft tissue injury of left ankle, initial encounter Allergies Active Allergy Reactions Severity Noted Date Comments Nickel Rash 06/01/2018 documented as of this encounter (statuses as of 05/13/2023) Medications Medication Sig Dispensed Refills Start Date [...] 04/24/2023 Active Acetaminophen 500 MG Oral Tablet (Tylenol) Take 1 Tablet by mouth every 6 hours as needed. 0 Active Diclofenac Sodium 1 % External Gel (Voltaren) Apply topically to affected area. Apply to injured ankle as needed 0 Active Thiamine HCl 100 MG Oral [...] as of this encounter (statuses as of 05/13/2023) Active Problems Problem Noted Date Major depressive disorder, recurrent epi sode, moderate 11/15/2018 Depression with anxiety 10/19/2016 Malaise and fatigue 08/18/2010 Tobacco use disorder 11/02/2007 Elevated liver enzymes Migraine Insomnia documented as of this encounter (statuses as of 05/13/2023) Resolved Problems Problem Noted Date Resolved Date Alcohol abuse, in remission 04/24/2023 07/05/2023 Routine medical exam 08/18/2010 05/09/2018 documented as of this encounter (statuses as of 05/13/2023) Immunizations Name Administration Dates Next Due Covid-19, Mrna, Lnp-s, Pf, B ivalent, 50 Mcg, IM, 12 yrs and above (Moderna) 09/23/2022 DTaP - Dipth/Tet/Acell Pertussis 988,03/05/1984,02/12/1983,12/11,1982 MMR - Measles/Mumps/Rubella Vaccine 11/28/1983 OPV - [...] as of this encounter Progress Notes * Cheyenne Avila RN - 05/13/2023 11:50 AM EDT Quality Control Industrial Engineer Progress Note: Date: 05/13/23 Assigned Patient Tier: 2 Connected with patient via telephone. Verified patient name/. Advised patient that call is beingrecorded for quality and training purposes. Assessment: Pt. noted the following: Alert, oriented to person, place, time. Recently hospitalized for alcohol withdrawal, metabolic andtoxic encephalopathy, soft tissue injury L ankle. Reports that she has had issues with drinking in the past but had been sober for over 7 years. She had a miscarriage last fall and returned to alcohol to cope. Had been taken to the ED on 05/05 for hallucinations r/t alcohol abuse. She was admitted on05/06. She is agreeable to referral to [facility] to assist with resource information and counseling for alcohol abuse, worsening depression and anxiety, grief/loss related to miscarriage. Reports she is doing okay since discharge home. Currently staying at her parents home temporarily due to ankle injury. States her L foot is still "bothering" her-remains swollen and bruised but improving-she injured it when she tripped and fell while intoxicated-no fractures found but does have soft tissue damage. Was prescribed oxycodone but has only used two tablets. Has been using Tylenol, ice, voltaren gel and elevating which does help a little.She is ambulating independently-reports she is "hobbling around". She is still having "mild" dizziness but this is improved. She is independent with all ADL's and IADL's except she is currently not driving-her parents are providing transportation. She reports thatdennis is not currently employed and is living off of her savings. She would like to find a job but has not had any luck. Agreeable to [facility] referral for additional assistance/resources/home safety eval. Denies any chest pain, CUTLER, cough, wheeze at present time. She stopped smoking cigarettes in May but does use a vape now. Not currently having any n/v/d/c or urinary symptoms. Appetite is normal. Reviewed/discussed current medications. She would like medication to help with worsening depression and anxiety. CM will send message to PCP. Reviewed red flags. No AD's on file. Reports she has notcompleted. Agreeable to informational packets to be sent with [facility]. Provided CM contact information. Advised to report worsening symptoms to PCP. Will plan to follow up within one week. Did you receive an alert for an annual wellness visit? No Is this call for a hospital, assisted or rehab facility discharge to home? Yes [facility] 05/06-05/10 for alcohol withdrawal, metabolic and toxic encephalopathy, soft tissue injury L ankle Medication Reconciliation: Medication Reconciliation completed: yes Review of Current goals: Discussed the following patient-centered CM goals with the patient during this discussion: -Pain: Patient will have pain well managed -Status: At Risk Continued pain. Prescribed oxycodone but has only used two tablets. Taking TylenolPRN. Using ice, voltaren gel and elevating ankle. Rating pain at 7/10. -Prevention: Prevent admission/readmission -Status: On Track Taking medications as prescribed. Scheduled for hospital follow up. Agreeable to [facility] home visit and [facility] referral. -SERVICES: Patient will be connected to community services -Status: On Track Referrals placed to [facility] and [facility]. COPD Patient: No CHF Patient: NO CM Plan: Reviewed 3 Red Flags with patient. Advised to call CM with any of the following: Red Flag 1: increased L ankle pain, Red Flag 2: worsening L ankle swelling, or Red Flag 3: worsening dizziness, Quality Control Industrial Engineer will follow-up with PCP regarding new anxiety/depression medication., Referral to: [facility] and Specialty Case management for safety eval, financial and employment resources as well as resources/assistance for worsening depression/anxiety/grief/loss., and RPM ordered for patient: post d/c IVR calls x 4 weeks. Remote Patient Monitoring: [facility] IVR Plan for Future Contacts: Plan to follow up within 1 week to check progress on the following goals/needs as above. Planned contacts from the following parties will occur this week: Community Health Metal Grader, Behavioral Health CM, and PCP office visit as additional contacts per workflow. Advancement/Closure Plan: Keep patient at current Tier with reassessment per workflow. Patient provided CM contact information and encouraged to call with any changes in condition. SNP Member? No PCP Notified of enrollment in CM/HM program: Yes Is Provider in agreement with POC? Yes Cheyenne Avila RN Outpatient Case Management documented in this encounter Plan of Treatment Upcoming Encounters Date Type Specialty Care Team Description 05/17/2023 Office Visit Family Medicine Therese Perez PA-C [address] [place] [address] 05/18/2023 Home Visit Family Medicine Anne Galloway, Community Health Metal Grader [address] [place] [address] Scheduled Referrals Name Type Priority Associated Diagnoses Orde r Schedule REMOTE PATIENT MONITORING REFERRAL Referral Within 3 days (urgent) Soft tissue injury of left ankle, initial encounter Ordered: 05/13/2023 Health Maintenance Due Date Last Done Comments [...] home patient encounter- Primary Other specified examination Soft tissue injury of left ankle, initial encounter documented in this encounter Care Teams Piecer Up Relationship Specialty Start Date End Date Aj Gaston III, MD [address] [place] [address], [place] [address] PCP - General Family Medicine 05/12/23 documented as of this encounter
--- OUTSIDE RECORDS SUMMARY | 2023-08-15 08:07 | External Medical Summary | Summary of Care ---
Author Name Unknown Organization [facility] Address [address] [place] [address] Phone [phone] Care Team Providers Care Director Of Casino Marketing Name Role Phone Marilin MICHAELS MD, Aj Westfall Primary Care Provider [phone] Reason for Visit * Reason Onset Date Comments case management 05/25/2023 Encounter Details Date Type Department Care Team Description 05/25/2023 Foaming Machine Operator Telephone General Internal Medicine [facility] [address] [facility] [place] [address] Cheyenne Avila, RN [address] [place] [address] case management Allergies Active Allergy Reactions Severity Noted Date Comments Nickel Rash 06/01/2018 documented as of this encounter (statuses as of 05/25/2023) Medications Medication Sig Dispensed Refills Start Date [...] as of this encounter (statuses as of 05/25/2023) Active Problems Problem Noted Date Major depressive disorder, recurrent epi sode, moderate 11/15/2018 Depression with anxiety 10/19/2016 Malaise and fatigue 08/18/2010 Tobacco use disorder 11/02/2007 Elevated liver enzymes Migraine Insomnia documented as of this encounter (statuses as of 05/25/2023) Resolved Problems Problem Noted Date Resolved Date Alcohol abuse, in remission 04/24/2023 07/2 05/2023 Routine medical exam 08/18/2010 05/09/2018 documented as of this encounter (statuses as of 05/25/2023) Immunizations Name Administration Dates Next Due Covid-19, [...] encounter Miscellaneous Notes * Telephone Encounter - Cheyenne Avila RN - 05/25/2023 1:37 PM EDT Follow-up Post Discharge Attempted Phone Call Third Attempt Call Outcome Left Voicemail/Message Plan To send letter Electronic outreach (Secure EHR portal, Secure text, etc.) documented in this encounter Plan of Treatment Upcoming Encounters Date Type Specialty Care Team Description 06/21/2023 Imaging Radiology 06/21/2023 Office Visit Family Medicine Ana, December Jerel, PAIsaiasC [address] [place] [address] Health Maintenance Due Date Last Done Comments Hepatitis B (1 of 3 - 3-dose series) 1982 HPV/Co-Test 2012 Mammogram 2022 Depression, Most Recent Score >= 10 (will fire each visit until score < 10) 04/28/2023 04/27/2023 Influenza Vaccine (FLU shot) (#1) 2023 Cervical Cancer Screening 08/27/2024 Pap Smear 08/27/2024 08/27/2021, 0701/2018 (Done elsewhere), 12/21/2014, Additional history exists Lipid [...] examination documented in this encounter Care Teams Director Of Casino Marketing Relationship Specialty Start Date End Date Aj Gaston III, MD [address] [place] [address] PCP - General Family Medicine 05/12/23 documented as of this encounter
--- OUTSIDE RECORDS SUMMARY | 2023-08-15 08:07 | External Medical Summary | Summary of Care ---
Author Name Unknown Organization [facility] Address [address] [place] [address] Phone [phone] Care Team Providers Care Oncology Nurse Navigator Name Role Phone Marilin MICHAELS MD, Aj Westfall Primary Care Provider [phone] Reason for Visit * Reason Onset Date Comments case management 05/28/2023 Encounter Details Date Type Department Care Team Description 05/28/2023 Finisher Operator Telephone Care Coordination [address] [place], [place] [id number] Maria De Jesus Engle LSW [address] [place], [place] [id number] case management Allergies Active Allergy Reactions Severity Noted Date Comments Nickel Rash 06/01/2018 documented as of this encounter (statuses as of 05/28/2023) Medications Medication Sig Dispensed Refills Start Date [...] as of this encounter (statuses as of 05/28/2023) Active Problems Problem Noted Date Major depressive disorder, recurrent epi sode, moderate 11/15/2018 Depression with anxiety 10/19/2016 Malaise and fatigue 08/18/2010 Tobacco use disorder 11/02/2007 Elevated liver enzymes Migraine Insomnia documented as of this encounter (statuses as of 05/28/2023) Resolved Problems Problem Noted Date Resolved Date Alcohol abuse, in remission 04/24/2023 07/2 05/2023 Routine medical exam 08/18/2010 05/09/2018 documented as of this encounter (statuses as of 05/28/2023) Immunizations Name Administration Dates Next Due Covid-19, [...] encounter Miscellaneous Notes * Telephone Encounter - HERIBERTO Rascon - 05/28/2023 12:26 PM EDT Images from the original note were not included. [facility] Follow-up Routine Attempted Phone Call Third Attempt Call Outcome Left Voicemail/Message Plan To send letter HERIBERTO [facility] Finisher Operator (Pronouns: she, her, hers) Care Coordination Integration home care nurse documented in this encounter Plan of Treatment Upcoming Encounters Date Type Specialty Care Team Description 06/21/2023 Imaging Radiology 06/23/2023 Office Visit Family Medicine Therese Perez PA-C [address] [place] [address] Health Maintenance Due Date Last Done Comments [...] filedocumented as of this encounter Care Teams Oncology Nurse Navigator Relationship Specialty Start Date End Date Aj Gaston III, MD [address] [place] [address], [place] [address] PCP - General Family Medicine 05/12/23 documented as of this encounter
--- OUTSIDE RECORDS SUMMARY | 2023-08-15 08:07 | External Medical Summary | Summary of Care ---
Author Name Unknown Organization [facility] Address [address] [place] [address] Phone [phone] Care Team Providers Care Car Repairer Helper Name Role Phone Marilin MICHAELS MD, John E Primary Care Provider [phone] Encounter Details Date Type Department Care Team Description 05/17/2023 Telephone Family Practice [facility] [address] [place] [address] Aj Gaston III, MD [address] [place] [address] Allergies Active Allergy Reactions Severity Noted Date Comments Nickel Rash 06/01/2018 documented as of this encounter (statuses as of 05/17/2023) Medications Medication Sig Dispensed Refills Start Date [...] as of this encounter (statuses as of 05/17/2023) Active Problems Problem Noted Date Major depressive disorder, recurrent epi sode, moderate 11/15/2018 Depression with anxiety 10/19/2016 Malaise and fatigue 08/18/2010 Tobacco use disorder 11/02/2007 Elevated liver enzymes Migraine Insomnia documented as of this encounter (statuses as of 05/17/2023) Resolved Problems Problem Noted Date Resolved Date Alcohol abuse, in remission 04/24/2023 07/05/2023 Routine medical exam 08/18/2010 05/09/2018 documented as of this encounter (statuses as of 05/17/2023) Immunizations Name Administration Dates Next Due Covid-19, [...] encounter Miscellaneous Notes * Telephone Encounter - PATTIE Edwards - 05/17/2023 12:38 PM EDT Procedure: ADULT/PEDS PSYCHIATRY REFERRAL OP Status: Needs Scheduling Requested appt date: Authorizing: Therese Perez PA-C in [facility] Referral: [id number] (Pending Review) Priority: Within 30 days (routine) Diagnosis: DOLLY (generalized anxiety disorder) [F41.1] Alcohol dependence with alcohol-induced anxiety disorder (HCC) [F10.28 Denied scheduling please call documented in this encounter Plan of Treatment Upcoming Encounters Date Type Specialty Care Team Description 05/18/2023 Home Visit Family Medicine Anne Galloway, [facility] Boat Garnisher [address] [place] [address] 06/21/2023 Office Visit Family Medicine Therese Perez PA-C [address] [place] [address] Health Maintenance Due Date Last Done Comments [...] filedocumented as of this encounter Care Teams Car Repairer Helper Relationship Specialty Start Date End Date Aj Gaston III, MD 200 [facility] [place] [address] PCP - General Family Medicine 05/12/23 documented as of this encounter
--- OUTSIDE RECORDS SUMMARY | 2023-08-15 08:07 | External Medical Summary | Summary of Care ---
Author Name Unknown Organization [facility] Address [address] [place] [address] Phone [phone] Care Team Providers Care Peg Driver Name Role Phone Marilin MICHAELS MD, John E Primary Care Provider [phone] Reason for Visit * Reason Onset Date Comments Medication Refill 06/12/2023 Med Request 06/12/2023 Buspar Encounter Details Date Type Department Care Team Description 06/12/2023 Telephone Family Practice [facility] 200 [facility] [place] [address] Aj Gaston III, MD [address] [place] [address] Medication Refill; Med Request (Buspar) Allergies Active Allergy Reactions Severity Noted Date Comments Nickel Rash 06/01/2018 documented as of this encounter (statuses as of 06/14/2023) Medications Medication Sig Dispensed Refills Start Date [...] as of this encounter (statuses as of 06/14/2023) Active Problems Problem Noted Date Major depressive disorder, recurrent epi sode, moderate 11/15/2018 Depression with anxiety 10/19/2016 Malaise and fatigue 08/18/2010 Tobacco use disorder 11/02/2007 Elevated liver enzymes Migraine Insomnia documented as of this encounter (statuses as of 06/14/2023) Resolved Problems Problem Noted Date Resolved Date Alcohol abuse, in remission 04/24/2023 07/2 05/2023 Routine medical exam 08/18/2010 05/09/2018 documented as of this encounter (statuses as of 06/14/2023) Immunizations Name Administration Dates Next Due Covid-19, [...] encounter Miscellaneous Notes * Telephone Encounter - Esther Salinas LPN [...] Visit Family Medicine Therese Perez, JULIA 200 [facility] [place] [address] Health Maintenance Due Date Last Done Comments [...] disorder documented in this encounter Care Teams Peg Driver Relationship Specialty Start Date End Date Aj Gaston III, MD [address] [place] [address] PCP - General Family Medicine 05/12/23 documented as of this encounter
--- OUTSIDE RECORDS SUMMARY | 2023-08-15 08:07 | External Medical Summary | Summary of Care ---
Author Name Unknown Organization [facility] Address [address] [place] [address] Phone [phone] Care Team Providers Care Software Engineering Project Manager Name Role Phone Marilin MICHAELS MD, Aj Westfall Primary Care Provider [phone] Reason for Referral * Evaluate & Treat - Unlimited Visits (Within 30 days (routine)) - Pending Review Specialty Diagnoses / Procedures Referred By Melissa peace Referred To Contact Psychiatry Diagnoses DOLLY (generalized anxiety disorder) Alcohol dependence with alcohol-induced anxiety disorder (HCC) Therese Perez PA-C [address] [place] [address] Referral ID Status Reason Start Date Expiration Date Visits Requested Visits Authorized [id number] Pending Review Specialty Services Required 05/17/[phone] Question Answer Referral Priority Within 30 days (routine) Is this referral for medication management? Yes Referral To [facility] Reason for Referral Substance Use Disorder Specific Condition: Co-Occuring BH Concern Reason for Visit * Reason Comments Hospital Follow-Up Encounter Details Date Type Department Care Team Description 05/17/2023 Office Visit Family Practice [facility] [address] [place] [address] Therese Perez PA-C [address] [place] [address] [address] DOLLY (generalized anxiety disorder)*; Alcohol dependence with alcohol-induced anxiety disorder (HCC) Allergies Active Allergy Reactions Severity Noted Date [...] 12/07/2022 Active Ondansetron HCl 4 MG Oral TabletIndications [...] Active busPIRone HCl 5 MG Oral Tablet (Buspar)Indicatio ns:DOLLY (generalized anxiety disorder) Take 1 Tablet by mouth in the morning and 1 Tablet at noon and 1 Tablet before bedtime. 90 Tablet 3 05/17/2023 Active Diclofenac Sodium 1 % External Gel Apply topically to affected area. Apply to injured ankle as needed 0 05/17/2023 Discontinued (Refill) documented as of this encounter [...] Sign Reading Time Taken Comments Blood Pressure 112/74 05/17/2023 11:43 AM EDT Pulse 92 05/17/2023 11:43 AM EDT Temperature 37.3 C (99.2 F) 05/17/2023 11:43 AM E DT Respiratory Rate - - Oxygen Saturation 98% 05/17/2023 11:43 AM EDT Inhaled Oxygen Concentration - - Weight 59 kg (130 lb) 05/17/2023 11:43 AM EDT Height 162.6 cm (5' 4.02") 05/17/2023 11:43 AM E DT Body Mass Index 22.3 05/17/2023 11:43 AM EDT documented in this encounter Progress Notes * Therese Perez PA-C - 05/17/2023 12:02 PM EDT Images from the original note were not included. History of Present Illness Emma Lundberg is a 42 year old female that presents for Hospital Follow-Up Patient is a 42 year old female who presents for a follow up. History of etoh abuse. History of anxiety Did a fall Was admitted on 05/05 and dicharged on 05/10/23. She was diagnosed with alcohol withdrawal, metabolic and toxic encephalopathy. She has tried numerous anxiety scrits. Appetite improved Sleep imr\\proved. Urination/ bowel movements normal Physical Exam Vitals: 05/17/23 1143 Temp: 37.3 C (99.2 F) Pulse: 92 SpO2: 98% BP: 112/74 BMI: 22.3 BP Readings from Last 3 Encounters: 05/17/23 112/74 04/27/23 106/70 04/24/23 100/62 Wt Readings from Last 3 Encounters: 05/17/23 59 kg (130 lb) 04/27/23 57.7 kg (127 lb 3.2 oz) 04/24/23 55.8 kg (123 lb) General: alert, healthy, no distress, well nourished, [...] no skin discoloration, no clubbing, no cyanosis Neuro Exam: alert & oriented x 3 with fluent speech, no focal motor/sensory deficits, gait normal, reflexes normal and symmetric I have reviewed the following results: CMP and CBC Assessment and Plan DOLLY (generalized anxiety disorder) (Primary) - ADULT/PEDS PSYCHIATRY REFERRAL OP - busPIRone HCl 5 MG Oral Tablet (Buspar); Take 1 Tablet by mouth in the morning and 1 Tablet at noon and 1 Tablet before bedtime. Alcohol dependence with alcohol-induced anxiety disorder (HCC) - ADULT/PEDS PSYCHIATRY REFERRAL OP Other orders - Diclofenac Sodium 1 % External Gel (Voltaren); Apply topically to affected area as needed for Pain, Moderate. Apply to injured ankle as needed Follow Up: Return in about 1 month (around 06/17/2023) for Clinic Visit. | For: Clinic Visit | Check-out note: Schedule for alcohol? Please schedule for psychiatry Wrap-Up Time: I spent a total of 30-39 minutes (exact time 38 mins) on the date of service in preparation, delivery, and documentation of the care provided to Emma Lundberg excluding any time spent in the performance of separately billed services. documented in this encounter Nursing Notes * HEENA Pitt - 05/17/2023 11:32 AM EDT Patient presents in office for a hospital follow up and 6 month follow up. Would like to discuss concerns about anxiety and depression. States she is doing well, feels she is in a good headspace and is finding clarity. Would like to continue on the upward rise to not relapse. documented in this encounter Plan of Treatment Upcoming Encounters Date Type Specialty Care Team Description 05/18/2023 Home Visit Family Medicine Anne Galloway, [facility] Refrigeration Lead [address] [place] [address] 06/21/2023 Office Visit Family Therese Vallejo PA-C [address] [place] [address] Scheduled Referrals Name Type Priority Associated Diagnoses Orde r Schedule ADULT/PEDS PSYCHIATRY REFERRAL OP Referral Within 30 days (routine) DOLLY (generalized anxiety disorder) Alcohol dependence with alcohol-induced anxiety disorder (HCC) Ordered: 05/17/2023 Health Maintenance Due Date Last Done Comments [...] anxiety disorder)- Primary Generalized anxiety disorder Alcohol dependence with alcohol-induced anxiety disorder (HCC) Other and unspecified alcohol dependence, unspecified drinking behavior documented in this encounter Care Teams Software Engineering Project Manager Relationship Specialty Start Date End Date Aj Gaston III, MD [address] [place] [address], [place] [address] PCP - General Family Medicine 05/12/23 documented as of this encounter
--- OUTSIDE RECORDS SUMMARY | 2023-08-15 08:07 | External Medical Summary | Summary of Care ---
Author Name Unknown Organization [facility] Address [address] [place] [address] Phone [phone] Care Team Providers Care Supervisor General Name Role Phone Unavailable Primary Care Provider Unavailabl e Reason for Visit * Reason Onset Date Comments Appointment 04/22/2023 FYI 04/22/2023 Encounter Details Date Type Department Care Team Description 04/22/2023 Telephone Family Practice [facility] 200 [facility] [place] [address] Therese Perez PA-C 200 [facility] [place] [address] Appointment; Allergies Active Allergy Reactions Severity Noted Date Comments Nickel Rash 06/01/2018 documented as of this encounter (statuses as of 04/29/2023) Medications Medication Sig Dispensed Refills Start Date [...] 7 DAYS 14 Tablet 1 12/07/2022 Active fluticasone (FLONASE) 50 MCG/ACT nasal spray Administer 1 [place] into nostril daily. 16 g 12 2018 04/24/2023 Discontinued (Medication List Clean Up) buPROPion HCl ER (SR) 150 MG Oral Tablet Extended Release 12 HourIndications: Major depressive disorder, recurrent episode, moderate (HCC) 150 mg 2 times a day. 90 Tab 1 11/15/2018 04/24/2023 Discontinued (Medication List Clean Up) Gabapentin 100 MG Oral Capsule (Neurontin) Take 100 mg by mouth 3 times a day. 0 04/24/2023 Discontinued (Medication List Clean Up) Drospirenone-Eth inyl Estradiol 3-0.02 MG Oral Tablet (CONSTANCE)Indications :Abnormal menstrual cycle Take by mouth 1 Tablet in the morning. 84 Tablet 3 04/21/2022 04/24/2023 Discontinued (Patient preference/d iscontinuati on) documented as of this encounter (statuses as of 04/29/2023) Active Problems Problem Noted Date Major depressive disorder, recurrent epi sode, moderate 11/15/2018 Depression with anxiety 10/19/2016 Malaise and fatigue 08/18/2010 Tobacco use disorder 11/02/2007 Elevated liver enzymes Migraine Insomnia documented as of this encounter (statuses as of 04/29/2023) Resolved Problems Problem Noted Date Resolved Date Alcohol abuse, in remission 04/24/202303/28 Routine medical exam 08/18/2010 05/09/2018 documented as of this encounter (statuses as of 04/29/2023) Immunizations Name Administration Dates Next Due Covid-19, [...] Types Packs/Day Years Used Date Smoking Tobacco: Every Day Cigarettes 0.5 20 Smokeless Tobacco: Never Alcohol Use Standard Drinks/Week Comments No 56 (1 standard drink = 0.6 oz pu re alcohol) sober Sex Assigned at Date Recorded Not on file Job Start Date Occupation Industry Not on file Not on file Not on file documented as of this encounter Miscellaneous Notes * Telephone Encounter - Janell Ag LPN - 04/29/2023 4:36 PM EDT Pt was seen 04/24 and 04/27 in office. * Telephone Encounter - Eneida Carrillo RN - 04/22/2023 4:45 PM EDT Provider to address:Appointment Reason for Call: Appointment Contact: Telephone Call Contact Type: Assessment Outcome: Left message for pt and mother to call back, and for pt to go to ER if worsens. Mother has auth to access pt information. Total Time including non face to face (minutes): 10 * Telephone Encounter - PATTIE Rodriguez - 04/22/2023 11:11 AM EDT Pt Mom( Jessenia) calling asking about getting a sooner Appt .She is having a hard time mentally and isshaking Stated hand and feet peeling Please call and leave message if necessary.mom # [phone] very concerned for her health. documented in this encounter Plan of Treatment Upcoming Encounters Date Type Specialty Care Team Description 05/19/2023 Office Visit Family Medicine Therese Perez, JULIA [address] [place] [address] Health Maintenance Due Date Last Done Comments [...]
--- OUTSIDE RECORDS SUMMARY | 2023-08-15 08:07 | External Medical Summary | Summary of Care ---
Author Name Unknown Organization [facility] Address [address] [place] [address] Phone [phone] Care Team Providers Care Reservationist Name Role Phone Marilin MICHAELS MD, Aj Westfall Primary Care Provider [phone] Reason for Visit * Reason Onset Date Comments Status Check 05/17/2023 Encounter Details Date Type Department Care Team Description 05/17/2023 Telephone Family Practice [facility] [address] [place] [address] Aj Gaston III, MD 200 [place] [address] Status Check Allergies Active Allergy Reactions Severity [...] Miscellaneous Notes * Telephone Encounter - GLORIA Perez Tech - 05/17/2023 1:18 PM EDT Patient calling to check on status of prescriptions. Caller can be reached at Patient Phone Numbers . Gabby Marie Apparatus Repair Mechanic II [facility] [address] [place] [address] 05/17/2023 1:18 PM documented in this encounter Plan of Treatment Upcoming Encounters Date Type Specialty Care Team Description 05/18/2023 Home Visit Family Medicine Anne Galloway, [facility] Envelope Press Operator [address] [place] [address] 06/21/2023 Office Visit Family Medicine Therese Perez PA-C [address] [place] [address] Health Maintenance Due Date Last Done Comments [...] filedocumented as of this encounter Care Teams Reservationist Relationship Specialty Start Date End Date Aj Gaston III, MD 200 [facility] [place] [address] PCP - General Family Medicine 05/12/23 documented as of this encounter
--- OUTSIDE RECORDS SUMMARY | 2023-08-15 08:07 | External Medical Summary | Summary of Care ---
Author Name Unknown Organization [facility] Address [address] [place] [address] Phone [phone] Care Team Providers Care Tip Fixer Name Role Phone Marilin MICHAELS MD, jA Westfall Primary Care Provider [phone] Reason for Visit * Reason Onset Date Comments FYI 05/18/2023 Encounter Details Date Type Department Care Team Description 05/18/2023 Telephone Family Practice [facility] [address] [place] [address] Aj aGston III, MD 200 [facility] [place] [address] FYI Allergies Active Allergy Reactions Severity Noted Date Comments Nickel Rash 06/01/2018 documented as of this encounter (statuses as of 05/19/2023) Medications Medication Sig Dispensed Refills Start Date [...] as of this encounter (statuses as of 05/19/2023) Active Problems Problem Noted Date Major depressive disorder, recurrent epi sode, moderate 11/15/2018 Depression with anxiety 10/19/2016 Malaise and fatigue 08/18/2010 Tobacco use disorder 11/02/2007 Elevated liver enzymes Migraine Insomnia documented as of this encounter (statuses as of 05/19/2023) Resolved Problems Problem Noted Date Resolved Date Alcohol abuse, in remission 04/24/2023 07/2 05/2023 Routine medical exam 08/18/2010 05/09/2018 documented as of this encounter (statuses as of 05/19/2023) Immunizations Name Administration Dates Next Due Covid-19, [...] encounter Miscellaneous Notes * Telephone Encounter - HEENA Pitt - 05/19/2023 9:44 AM EDT Preferred pharmacy updated. * Telephone Encounter - PATTIE Ruiz - 05/18/2023 4:19 PM EDT Pt calling to inform the provider that she will no longer be using [facility] pharmacy and is asking thatall future medications be sent to [facility] [place] documented in this encounter Plan of Treatment Upcoming Encounters Date Type Specialty Care Team Description 06/21/2023 Imaging Radiology 06/21/2023 Office Visit Family Medicine Ana, Therese Beltrán, JULIA [address] [place], [place] [address] Health Maintenance Due Date Last Done Comments [...] filedocumented as of this encounter Care Teams Tip Fixer Relationship Specialty Start Date End Date Aj Gaston III, MD 200 [facility] [place] [address] PCP - General Family Medicine 05/12/23 documented as of this encounter
--- OUTSIDE RECORDS SUMMARY | 2023-08-15 08:07 | External Medical Summary | Summary of Care ---
Author Name Unknown Organization [facility] Address [address] [place] [address] Phone [phone] Care Team Providers Care Patient Service Specialist Name Role Phone Unavailable Primary Care Provider Unavailabl e Reason for Visit * Reason Comments Outpatient Testing Encounter Details Date Type Department Care Team Description 04/27/2023 Laboratory Laboratory [facility] [address] [place] [address] [facility] [address] [place] [address] Intractable migraine with aura without status migrainosus; Nausea and vomiting, unspecified vomiting type; Alcohol dependence with withdrawal with complication (HCC) Allergies Active Allergy Reactions Severity Noted Date Comments Nickel Rash 06/01/2018 documented as of this encounter (statuses as of 05/01/2023) Medications Medication Sig Dispensed Refills Start Date [...] 7 DAYS 14 Tablet 1 12/07/2022 Active Additional Information Patient not taking.Reported on 04/24/2023 Ondansetron HCl 4 MG Oral TabletIndications:N ausea and vomiting, unspecified vomiting type Take 1 Tablet by mouth every 6 hours as needed for Nausea. 30 Tablet 0 04/24/2023 Active documented as of this encounter (statuses as of 05/01/2023) Active Problems Problem Noted Date Major depressive disorder, recurrent epi sode, moderate 11/15/2018 Depression with anxiety 10/19/2016 Malaise and fatigue 08/18/2010 Tobacco use disorder 11/02/2007 Elevated liver enzymes Migraine Insomnia documented as of this encounter (statuses as of 05/01/2023) Resolved Problems Problem Noted Date Resolved Date Alcohol abuse, in remission 04/24/202303/28 Routine medical exam 08/18/2010 05/09/2018 documented as of this encounter (statuses as of 05/01/2023) Immunizations Name Administration Dates Next Due Covid-19, [...] Medicine Therese Perez, JULIA [address] [place] [address] Health Maintenance Due Date Last Done Comments [...] Not on filedocumented as of this encounter Procedures Procedure Name Priority Date/Time Associated Diagnosis Comments DIFFERENTIAL, AUTOMATED Routine 04/27/2023 11:24 AM EDT Intractable migraine with aura without status migrainosus Nausea and vomiting, unspecified vomiting type TSH WITH FREE T4 IF INDICATED Routine 04/27/2023 11:24 AM EDT Intractable migraine with aura without status migrainosus COMPREHENSIVE METABOLIC PANEL Routine 04/27/2023 11:24 AM EDT Intractable migraine with aura without status migrainosus Nausea and vomiting, unspecified vomiting type CBC WITH WBC DIFFERENTIAL Routine 04/27/2023 11:24 AM EDT Intractable migraine with aura without status migrainosus Nausea and vomiting, unspecified vomiting type LIPASE Routine 04/27/2023 11:24 AM EDT Nausea and vomiting, unspecified vomiting type ERYTHROCYTE SEDIMENTATION RATE (ESR) Routine 04/27/2023 11:24 AM EDT Intractable migraine with aura without status migrainosus CBC Routine 04/27/2023 11:24 AM EDT Intractable migraine with aura without status migrainosus Nausea and vomiting, unspecified vomiting type AMMONIA Routine 04/27/2023 11:24 AM EDT Alcohol dependence with withdrawal with complication (HCC) documented in this encounter Results * DIFFERENTIAL, AUTOMATED (04/27/2023 11:24 AM EDT) WBC 5.51 4.00 - 10.80 K/uL 04/27/2023 11:31 AM EDT [facility]02 Neutrophils % 50.0 40.0 - 75.0 % 04/27/2023 11:31 AM EDT [facility] Lymphocytes % 38.5 18.0 - 42.0 % 04/27/2023 11:31 AM EDT [facility] Monocytes % 6.4 1.0 - 11.0 % 04/27/2023 11:31 AM EDT [facility]02 Eosinophils % 4.4 0.0 - 6.0 % 04/27/2023 11:31 AM EDT [facility]02 Basophils % 0.7 0.0 - 2.0 % 04/27/2023 11:31 AM EDT [facility]02 Absolute Neutrophils 2.76 1.80 - 7.70 K/uL 04/27/2023 11:31 AM EDT [facility]02 Absolute Lymphocytes 2.12 1.00 - 4.80 K/ul 04/27/2023 11:31 AM EDT [facility] 56 Absolute Monocytes 0.35 0.00 - 1.10 K/uL 04/27/2023 11:31 AM EDT [facility] 56 Absolute Eosinophils 0.24 0.00 - 0.70 K/uL 04/27/2023 11:31 AM EDT [facility] 56 Absolute Basophils 0.04 0.00 - 0.20 K/uL 04/27/2023 11:31 AM EDT [facility] 56 Blood Venous blood specimen / Unknown Venipuncture / Unknown 04/27/2023 11:24 AM EDT 04/27/2023 11:24 AM EDT December Ana DUMONT LAB BLOOD ORDERABLES [facility] [address] [place] [address] * (ABNORMAL) CBC (04/27/2023 11:24 AM EDT) WBC 5.51 4.00 - 10.80 K/uL 04/27/2023 11:[address] RBC 3.38 3.85 - 5.15 M/uL 04/27/2023 11:31 AM EDT [address] HGB 12.6 12.0 - 15.3 g/dL 04/27/2023 11:[address]T [address] HCT 38.0 36.0 - 45.2 % 04/27/2023 11:[address]T [address] MCV 112.4 81.5 - 97.5 fL 04/27/2023 11:[address]T [address] MCH 37.3 27.0 - 34.0 pg 04/27/2023 11:31 AM EDT [facility] 56 MCHC 33.2 32.0 - 36.0 g/dL 04/27/2023 11:31 AM EDT [facility] 56 RDW 12.6 11.5 - 15.5 % 04/27/2023 11:31 AM EDT [facility] 5602 PLT 113(L) 140 - 400 K/uL 04/27/2023 11:31 AM EDT [facility]-02 MPV 10.0 6.6 - 11.1 fL 04/27/2023 11:31 AM EDT [facility] 56-02 Blood Venous blood specimen / Unknown Venipuncture / Unknown 04/27/2023 11:24 AM EDT 04/27/2023 11:24 AM EDT Therese Jerel Ana ANDERSONIsaiasC LAB BLOOD ORDERABLES [facility] 56-[address] [place] [address] * (ABNORMAL) LIPASE (04/27/2023 11:24 AM EDT) Lipase 81(H) 13 - 60 U/L 04/27/2023 7:20 PM EDT [facility] Blood Venous blood specimen / Unknown Venipuncture / Unknown 04/27/2023 11:24 AM EDT 04/27/2023 11:24 AM EDT December Jerel Ana ANDERSON-C LAB BLOOD ORDERABLES [facility] [address] [place] [address] * (ABNORMAL) AMMONIA (04/27/2023 11:24 AM EDT) Ammonia 57(H) 11 - 35 umol/L 04/27/2023 5:58 PM EDT [facility] Blood Venous blood specimen / Unknown Venipuncture / Unknown 04/27/2023 11:24 AM EDT 04/27/2023 11:24 AM EDT December Jerel ANDERSON-C LAB BLOOD ORDERABLES [facility] [address] [place] [address] * TSH WITH FREE T4 IF INDICATED (04/27/2023 11:24 AM EDT) TSH 1.72 0.27 - 4.20 uIU/mL 04/27/2023 11:09 PM EDT [facility] Blood Venous blood specimen / Unknown Venipuncture / Unknown 04/27/2023 11:24 AM EDT 04/27/2023 11:24 AM EDT December A Ana PA-C LAB BLOOD ORDERABLES Performing Organization Address City/[facility]/ZIP Co de Phone Number [facility] [address] [place] [address] * ERYTHROCYTE SEDIMENTATION RATE (ESR) (04/27/2023 11:24 AM EDT) Pathologist [facility] ESR 3 <20 mm/hour 04/27/2023 6:46 PM EDT [facility] Blood Venous blood specimen / Unknown Venipuncture / Unknown 04/27/2023 11:24 AM EDT 04/27/2023 11:24 AM EDT Therese A Ana PA-C LAB BLOOD ORDERABLES Performing Organization Address [facility] de Phone Number [facility] [address] [place] [address] * (ABNORMAL) COMPREHENSIVE METABOLIC PANEL (04/27/2023 11:24 AM EDT) Pathologist [facility] BUN 5(L) 6 - 20 mg/dL 04/27/2023 12:52 PM EDT [facility] 56-02 Creatinine 0.7 0.5 - 1.0 mg/dL 04/27/2023 12:52 PM EDT [facility] 56-02 Estimated Glomerular Filtration Rate >90 >=60 mL/min 04/27/2023 12:52 PM EDT [facility] 56-02 Comment:eGFR is calculated b ased on the CKD-EPI 2020 equation Sodium 144 135 - 146 mmol/L 04/27/2023 12:52 PM EDT [facility] 56-02 Potassium 4.7 3.5 - 5.1 mmol/L 04/27/2023 12:52 PM EDT [facility] 56-02 Chloride 103 98 - 107 mmol/L 04/27/2023 12:[address] CO2 25 22 - 32 mmol/L 04/27/2023 12:[address] Anion Gap 16(H) 7 - 15 mmol/L 04/27/2023 12:[address] Glucose 96 70 - 120 mg/dL 04/27/2023 12:[address] Albumin 4.7 3.8 - 5.0 g/dL 04/27/2023 12:[address] AST 285(H) 10 - 35 U/L 04/27/2023 12:[address] Alkaline Phosphatase 84 35 - 130 U/L 04/27/2023 12:[address] Bilirubin, Total 0.5 <=1.2 mg/dL 04/27/2023 12:[address] Calcium 9.3 8.4 - 10.2 mg/dL 04/27/2023 12:52 [address] Protein 6.9 6.0 - 8.3 g/dL 04/27/2023 12:[address] ALT 91(H) 10 - 35 U/L 04/27/2023 12:52 PM EDT [address] Blood Venous blood specimen / Unknown Venipuncture / Unknown 04/27/2023 11:24 AM EDT 04/27/2023 11:24 AM EDT Therese Perez PA-C LAB BLOOD ORDERABLES [facility] [address]- [address] [place] [address] documented in this encounter Visit Diagnoses Diagnosis Intractable migraine with aura without status migrainosus Migraine with aura, with intractable migraine, so stated, without mention of status migrainosus Nausea and vomiting, unspecified vomiting type Alcohol dependence with withdrawal with complication (HCC) documented in this encounter
--- OUTSIDE RECORDS SUMMARY | 2023-08-15 08:07 | External Medical Summary | Summary of Care ---
Author Name Unknown Organization [facility] Address [address] [place] [address] Phone [phone] Care Team Providers Care Sky Diver Name Role Phone Marilin MICHAELS MD, Aj [place] Primary Care Provider [phone] Reason for Visit * Reason Onset Date Comments Advice 05/11/2023 Encounter Details Date Type Department Care Team Description 05/11/2023 Telephone Family Practice [facility] [address] [place] [address] Services, Scheduling [address] [place] [address] Advice Allergies Active Allergy Reactions Severity Noted Date [...] 12/07/2022 Active Ondansetron HCl 4 MG Oral TabletIndications:Nacho sea and vomiting, unspecified vomiting type Take 1 [...] encounter Miscellaneous Notes * Telephone Encounter - December Jerel Perez PA-C - 05/17/2023 2:16 PM EDT Saw patient today. Did not mention needing pain medications. * Telephone Encounter - Bella Lea LPN - 05/14/2023 2:55 PM EDT Patient states that she has her HD F/U appt on Wednesday She wanted to make sure that Vamshi Perez would be able to prescribe her medications Patient states that she injured her left ankle and foot and was prescribe Hydrocodone 5 mg, take 1 tablet in the morning and 1 in the evening She has 1 tablet left and will not have enough after tonights dose She would like to know if she could get enough med until her appt on Wednesday Pharm selected. Please advise. Reason for Call: Advice Contact: Telephone Call Contact Type: Medication Total Time including non face to face (minutes): 10 * Telephone Encounter - HEENA Riggs ASSIST - 05/14/2023 2:44 PM EDT Provider to address: Medication Advice Reason for Call: Advice Contact: Telephone Call Contact Type: Medication Outcome: Left message for the patient to call the office. Upon return call please transfer to a dedicated telephone nurse. Total Time including non face to face (minutes): 10 * Telephone Encounter - PATTIE Staples - 05/11/2023 1:36 PM EDT Pt was seen in hospital and was given paperwork about medication management. She had questions regarding it, please call back to discuss. Also has HD follow up. documented in this encounter Plan of Treatment Upcoming Encounters Date Type Specialty Care Team Description 05/18/2023 Home Visit Family Medicine Anne Galloway, [facility] Swage Toolsetter [address], [place] [id number] 06/21/2023 Office Visit Family Medicine Therese Perez PA-C [address] [place] [address] Health Maintenance Due Date Last Done Comments [...] filedocumented as of this encounter Care Teams Sky Diver Relationship Specialty Start Date End Date Aj Gaston III, MD [address] [place] [address] PCP - General Family Medicine 05/12/23 documented as of this encounter
--- OUTSIDE RECORDS SUMMARY | 2023-08-15 08:07 | External Medical Summary | Summary of Care ---
Author Name Unknown Organization [facility] Address [address] [place] [address] Phone [phone] Care Team Providers Care Advertising Intern Name Role Phone Marilin MICHAELS MD, Aj [place] Primary Care Provider [phone] Reason for Visit * Reason Onset Date Comments FYI 05/18/2023 Encounter Details Date Type Department Care Team Description 05/18/2023 Telephone Family Practice [facility] [address] [place] [address] Aj Gaston III, MD [address] [place] [address] FYI Allergies Active Allergy Reactions Severity Noted [...] that she will no longer be using [facility] pharmacy and is asking thatall future medications be sent to [facility] [place] documented in this encounter Plan of Treatment Upcoming Encounters Date Type Specialty Care Team Description 06/21/2023 Imaging Radiology 06/21/2023 Office Visit Family Medicine Ana, Therese Beltrán, JULIA [address] [place], [place] [address] Health Maintenance Due Date Last Done Comments [...] filedocumented as of this encounter Care Teams Advertising Intern Relationship Specialty Start Date End Date Aj Gaston III, MD [address] [facility] [place] [address] PCP - General Family Medicine 05/12/23 documented as of this encounter
--- OUTSIDE RECORDS SUMMARY | 2023-08-15 08:07 | External Medical Summary | Summary of Care ---
Author Name Unknown Organization [facility] Address [address] [place] [address] Phone [phone] Care Team Providers Care Flight Attendant Name Role Phone Unavailable Primary Care Provider Unavailabl e Reason for Visit * Reason Onset Date Comments Medication Question 04/28/2023 Encounter Details Date Type Department Care Team Description 04/28/2023 Telephone Family Practice [facility] [address] [place] [address] Aj Gaston III, MD [address] [place] [address] Medication Question Allergies Active Allergy Reactions Severity Noted Date Comments Nickel Rash 06/01/2018 documented as of this encounter (statuses as of 04/28/2023) Medications Medication Sig Dispensed Refills Start Date [...] 12/07/2022 Active Ondansetron HCl 4 MG Oral TabletIndications: Nausea and vomiting, unspecified vomiting type Take 1 Tablet by mouth every 6 hours as needed for Nausea. 30 Tablet 0 04/24/2023 Active Naltrexone HCl 50 MG Oral Tablet (Revia) Take 1 Tablet by mouth in the morning. 30 Tablet 4 04/27/2023 04/28/2023 Discontinued (Patient preference/d iscontinuati on) documented as of this encounter (statuses as of 04/28/2023) Active Problems Problem Noted Date Major depressive disorder, recurrent epi sode, moderate 11/15/2018 Depression with anxiety 10/19/2016 Malaise and fatigue 08/18/2010 Tobacco use disorder 11/02/2007 Elevated liver enzymes Migraine Insomnia documented as of this encounter (statuses as of 04/28/2023) Resolved Problems Problem Noted Date Resolved Date Alcohol abuse, in remission 04/24/202303/28 Routine medical exam 08/18/2010 05/09/2018 documented as of this encounter (statuses as of 04/28/2023) Immunizations Name Administration Dates Next Due Covid-19, [...] encounter Miscellaneous Notes * Telephone Encounter - Zayra Fierro RP - 04/28/2023 1:15 PM EDT Caregiver informed pt should not be starting Naltrexone at this time due to elevated LFTs. Encouraged her to have pt repeat CMP before next apt (prev ordered) and to keep upcoming apt for further discussion. Also discussed with caregiver when to contact clinic/seek care. Caregiver thankful and verbalized understanding. Naltrexone removed from med list. Thank you, Zayra Fierro, PharmD Clinical Pharmacist [facility] ([facility]) (formerly Telepharmacy) 04/28/23 1:16 PM [phone] * Telephone Encounter - Aj Gaston III, MD - 04/28/2023 1:09 PM EDT Significant AST elevation can NOT start naltrexone * Telephone Encounter - Zayra Fierro RPh - 04/28/2023 12:11 PM EDT Caregiver (Jessenia) calling to update MD that pt is actively drinking. Reports pt may have told MD at yesterday's OV otherwise. Caregiver concerned with pt starting Naltrexone and is requesting for provider input due to active EtOH use. Jessenia also reports pt would rather continue drinking than start med. Provided emotional support to caregiver. Does provider wish for patient to start naltrexone at this time while actively drinking? Please review and advise, and have staff follow-up with Jessenia on cell phone @ [phone]. Per U2D Naltrexone: Alcohol use disorder, moderate to severe: Note: Not recommended for patients currently taking opioids or with acute hepatitis, liver enzymes ?3 to 5 times normal, or liver failure (Ref). May be initiated while the patient is actively drinking (Ref). Some experts consider alternative therapy if goals are not met within 6 months of treatment AST Results: Lab Results Component Value Date/Time AST - [facility] 285 (H) 04/27/2023 11:24 AM Thank you, Zayra Fierro, PharmD Clinical Pharmacist [facility] ([facility]) (formerly Telepharmacy) 04/28/23 12:13 PM [phone] * Telephone Encounter - Sussy Mei CPhT - 04/28/2023 12:08 PM EDT Patients mother calling with Naltrexone HCl 50 MG Oral Tablet (Revia) questions Thank you, Sussy Mei Amr Physician II [facility] ([facility]) (formerly Telepharmacy) 04/28/2023 12:09 PM documented in this encounter Plan of Treatment Upcoming Encounters Date Type Specialty Care Team Description 05/19/2023 Office Visit Family Medicine Therese Perez PA-C [address] [facility] [place] [address] Health Maintenance Due Date Last Done Comments [...]
--- OUTSIDE RECORDS SUMMARY | 2023-08-15 08:07 | External Medical Summary | Summary of Care ---
Author Name Unknown Organization [facility] Address [address] [place] [address] Phone [phone] Care Team Providers Care General Supervisor Name Role Phone Marilin MICHAELS MD, Aj [place] Primary Care Provider [phone] Reason for Visit * Reason Onset Date Comments Advice 05/13/2023 Encounter Details Date Type Department Care Team Description 05/13/2023 Translator/Interpreter Telephone General Internal Medicine [facility] [address] [place] [address] Cheyenne Avila, RN [address] [place] [address] Advice Allergies Active Allergy Reactions Severity Noted [...] encounter Miscellaneous Notes * Telephone Encounter - Therese Perez PA-C - 05/17/2023 2:17 PM EDT Was seen in office today. Will do trial with Van. * Telephone Encounter - Cheyenne Avila RN - 05/14/2023 5:06 PM EDT Patient reports she has used prozac in the past without any positive effects. * Telephone Encounter - Cheyenne Avila RN - 05/14/2023 3:26 PM EDT Ischemia Care message sent to patient to clarify. * Telephone Encounter - Therese Perez PA-C - 05/13/2023 8:29 PM EDT Has she tried prozac? * Telephone Encounter - Cheyenne Avila RN - 05/13/2023 1:36 PM EDT Spoke with patient in follow up to recent hospitalization due to alcohol withdrawal, metabolic and toxic encephalopathy, Soft tissue injury L ankle. She is requesting recommendations for medication to treat worsening depression and anxiety. She is scheduled for a hospital follow up next week but would like to start something now if possible. Reports she has used bupropion, remeron, trazodone, seroquel and zoloft in the past but feels these were ineffective. Dr. Gaston/December - Please advise. Thank you. Cheyenne Avila senior internet sales consultant Care Coordination and Integration [address] [place] [address] documented in this encounter Plan of Treatment Upcoming Encounters Date Type Specialty Care Team Description 05/18/2023 Home Visit Family Medicine Anne Galloway, [facility] Endodontics Dentist [address] [place] [address] 06/21/2023 Office Visit Family Medicine Therese Perez PA-C [address] [place] [address] Health Maintenance Due Date Last Done Comments [...] filedocumented as of this encounter Care Teams General Supervisor Relationship Specialty Start Date End Date Aj Gaston III, MD [address] [place] [address] PCP - General Family Medicine 05/12/23 documented as of this encounter
--- OUTSIDE RECORDS SUMMARY | 2023-08-15 08:07 | External Medical Summary | Summary of Care ---
Author Name Unknown Organization [facility] Address [address] [place] [address] Phone [phone] Care Team Providers Care Securities Settlement Processor Name Role Phone Marilin MICHAELS MD, Aj [place] Primary Care Provider [phone] Reason for Visit * Reason Onset Date Comments case management 05/24/2023 Encounter Details Date Type Department Care Team Description 05/24/2023 Counter Clerk Telephone General Internal Medicine [facility] [address] [facility] [place] [address] Cheyenne Avila, RN [address] [place] [address] case management Allergies Active Allergy Reactions Severity Noted Date Comments Nickel Rash 06/01/2018 documented as of this encounter (statuses as of 05/24/2023) Medications Medication Sig Dispensed Refills Start Date [...] as of this encounter (statuses as of 05/24/2023) Active Problems Problem Noted Date Major depressive disorder, recurrent epi sode, moderate 11/15/2018 Depression with anxiety 10/19/2016 Malaise and fatigue 08/18/2010 Tobacco use disorder 11/02/2007 Elevated liver enzymes Migraine Insomnia documented as of this encounter (statuses as of 05/24/2023) Resolved Problems Problem Noted Date Resolved Date Alcohol abuse, in remission 04/24/2023 07/2 05/2023 Routine medical exam 08/18/2010 05/09/2018 documented as of this encounter (statuses as of 05/24/2023) Immunizations Name Administration Dates Next Due Covid-19, [...] Telephone Encounter - Cheyenne Avila RN - 05/24/2023 1:01 PM EDT Follow-up Post Discharge Attempted Phone Call Second Attempt Call Outcome Left Voicemail/Message Plan To attempt another outreach documented in this encounter Plan of Treatment Upcoming Encounters Date Type Specialty Care Team Description 06/21/2023 Imaging Radiology 06/21/2023 Office Visit Family Medicine Therese Perez, PAMatt [address] [place] [address] Health Maintenance Due Date Last Done Comments [...] examination documented in this encounter Care Teams Securities Settlement Processor Relationship Specialty Start Date End Date Aj Gaston III, MD 200 [place] [address] PCP - General Family Medicine 05/12/23 documented as of this encounter
--- OUTSIDE RECORDS SUMMARY | 2023-08-15 08:07 | External Medical Summary | Summary of Care ---
Author Name Unknown Organization [facility] Address [address] [place] [address] Phone [phone] Care Team Providers Care Keypuncher Name Role Phone Marilin MICHAELS MD, Aj [place] Primary Care Provider [phone] Reason for Visit * Reason Onset Date Comments case management 05/19/2023 Encounter Details Date Type Department Care Team Description 05/19/2023 Exceptional Student Education Aide Telephone Care Coordination [address] [place], [place] [id number] Maria De Jesus Engle LSW [address] [place] [address] case management Allergies Active Allergy Reactions Severity [...] * Telephone Encounter - HERIBERTO Rascon - 05/19/2023 12:44 PM EDT [facility] Follow-up Routine Attempted Phone Call First Attempt Call Outcome Left Voicemail/Message Plan To attempt another outreach [facility] Exceptional Student Education Aide (Pronouns: she, her, hers) Care Coordination Integration home improvement advisor documented in this encounter Plan of Treatment Upcoming Encounters Date Type Specialty Care Team Description 06/21/2023 Imaging Radiology 06/21/2023 [facility] Visit [facility]se Perez[facility] [address] [facility] Maintenance Due Date Last Done Comments [...] filedocumented as of this encounter Care Teams Keypuncher Relationship Specialty Start Date End Date Aj Gaston III, MD 200 [place] [address] PCP - General Family Medicine 05/12/23 documented as of this encounter
--- OUTSIDE RECORDS SUMMARY | 2023-08-15 08:07 | External Medical Summary | Summary of Care ---
Author Name Unknown Organization [facility] Address [address] [place] [address] Phone [phone] Care Team Providers Care Surgical Aides Teacher Name Role Phone Unavailable Primary Care Provider Unavailabl e Reason for Referral * Evaluate & Treat - Unlimited Visits (Within 10 days (routine)) - Pending Review Specialty Diagnoses / Procedures Referred By Melissa peace Referred To Contact Addiction Medicine Diagnoses Alcohol dependence, PCP tx ([facility]) Aj Gaston III, MD [address] [place] [address] Referral ID Status Reason Start Date Expiration Date Visits Requested Visits Authorized [id number] Pending Review Specialty Services Required 04/27/2023 999 [id number] Question Answer Referral Priority Within 10 days (routine) Was the patient hospitalized for their addiction in the past in the past 6 months? Yes Did this include Endocarditis or Soft Tissue Infection? No Has the patient overdosed on any substance in the past? No Is the Patient ? No Reason for Referral: Alcohol Reason for Visit * Reason Comments Acute Encounter Details Date Type Department Care Team Description 04/27/2023 Office Visit Family Practice [facility] [place] [address] [place] [address] Aj Gaston III, MD [address] [place] [address] Alcohol dependence, PCP tx ([facility])* Allergies Active Allergy Reactions Severity Noted [...] Sign Reading Time Taken Comments Blood Pressure 106/70 04/27/2023 11:30 AM EDT Pulse 98 04/27/2023 11:30 AM EDT Temperature 36.2 C (97.1 F) 04/27/2023 11:30 AM E DT Respiratory Rate 18 04/27/2023 11:30 AM EDT Oxygen Saturation 98% 04/27/2023 11:30 AM EDT Inhaled Oxygen Concentration - - Weight 57.7 kg (127 lb 3.2 oz) 04/27/2023 11:30 AM EDT Height 162.6 cm (5' 4") 04/27/2023 11:30 AM EDT Body Mass Index 21.83 04/27/2023 11:30 AM EDT documented in this encounter Progress Notes * Aj Gaston III, MD - 04/27/2023 12:17 PM EDT Subjective: Emma Lundberg is a 42 year old female. Chief Complaint Patient presents with Acute HPI: History of alcohol dependence had miscarriage back in June and started drinking again was pretty much back to her previous intake levels had been sober for 7 years recently seen labs ordered given Franki last alcohol was 2 weeks ago now starting to eat a little more again had not eaten for 3 days had sushi yesterday to eggs this morning no current abdominal pain PMH: Patient Active Problem List Diagnosis Code Tobacco use disorder F17.200 Malaise and fatigue R53.81, R53.83 Depression with anxiety F41.8 Elevated liver enzymes R74.8 Migraine G43.909 Insomnia G47.00 Major depressive disorder, recurrent episode, moderate (HCC) F33.1 Current Outpatient Medications Medication Sig Dispense Refill Melatonin 10 MG Tablet Take 1 Tab by mouth at bedtime. VENTOLIN HFA 108 (90 Base) MCG/ACT inhaler INHALE 2 PUFFS BY MOUTH 4 TIMES A DAY 18 g 1 Amitriptyline HCl 50 MG Oral Tablet (Elavil) Take 1 Tablet by mouth at bedtime. Use as needed- may use 1/2 to full tab. valACYclovir HCl 1 GM Oral Tablet (Valtrex) TAKE 1 TABLET BY MOUTH IN THE MORNING AND 1 TAB BEFORE BEDTIME FOR 7 DAYS 14 Tablet 1 Ondansetron HCl 4 MG Oral Tablet Take 1 Tablet by mouth every 6 hours as needed for Nausea. 30 Tablet 0 Naltrexone HCl 50 MG Oral Tablet (Revia) Take 1 Tablet by mouth in the morning. 30 Tablet 4 No current facility-administered medications for this visit. Review of patient's allergies indicates: Allergen Reactions Nickel Rash Past Medical History: Diagnosis Date Alcohol abuse, in remission Elevated liver enzymes Insomnia Migraine NONE Past Surgical History: Procedure Laterality Date DENTAL SURGERY PROCEDURE NEC 1999 Objective: The patient is a 42 year old female BP 106/70 | Pulse 98 | Temp 36.2 C (97.1 F) (Tympanic) | Resp 18 | Ht 1.626 m (5' 4") | Wt 57.7kg (127 lb 3.2 oz) | SpO2 98% | BMI 21.83 kg/m | BSA 1.61 m General: alert, healthy and no distress Eye Exam: PERRLA, extraocular movements intact, conjunctiva are pink and non- injected, sclera clear Oropharynx: no exudate, no erythema, lips, buccal mucosa, and tongue normal and mucous membranes are moist Heart: regular rate & rhythm, no murmur and no gallops Lungs: lungs clear to auscultation, no rhonchi rales rubs wheezes Abdomen: abdomen soft, non-tender, normal bowel sounds and no masses or organomegaly Extremities: no edema, no clubbing, no cyanosis Skin: Some peeling of hands and feet ASSESSMENT: F10.20 Alcohol dependence, PCP tx ([facility]) (primary encounter diagnosis) PLAN: CBC no significant abnormalities wishes to try the naltrexone again addiction counselor referral placed begin multivitamins with supplemental B vitamins call if problems Follow up in 6 week(s). Aj Gaston III, MD documented in this encounter Nursing Notes * Janie Bush LPN - 04/27/2023 11:34 AM EDT Emma Lundberg presents with complaints of unable to eat/drink, very fatigued/exhaustion. Had been sober 6+ years and began drinking after a miscarriage about 10 months ago. States she was drinking about 8-10 shots per day; last drink was "a little over" 2 weeks ago. Also, complaints of dry peeling skin on hands & feet documented in this encounter Plan of Treatment Upcoming Encounters Date Type Specialty Care Team Description 05/19/2023 Office Visit Family Medicine Therese Perez PA-C [address] [place] [address] Scheduled Orders Name Type Priority Associated Diagnoses Orde r Schedule COMPREHENSIVE METABOLIC PANEL Lab Routine Alcohol dependence, PCP jorge CÁRDENAS) Expected: 04/27/2023 (Approximate), Expires: 04/26/2024 Scheduled Referrals Name Type Priority Associated Diagnoses Orde r Schedule ALCOHOL/CHEMICAL DEPENDENCY REFERRAL OP Referral Within 10 days (routine) Alcohol dependence, PCP tx ([facility]) Ordered: 04/27/2023 Health Maintenance Due Date Last Done Comments [...] Visit Diagnoses Diagnosis Alcohol dependence, PCP tx ([facility])- Primary Other and unspecified alcohol dependence, unspecified drinking behavior documented in this encounter
--- OUTSIDE RECORDS SUMMARY | 2023-08-15 08:07 | External Medical Summary | Summary of Care ---
Author Name Unknown Organization [facility] Address [address] [place] [address] Phone [phone] Care Team Providers Care Ios Developer Name Role Phone Marilin MICHAELS MD, Aj Westfall Primary Care Provider [phone] Reason for Visit * Reason Onset Date Comments case management 05/20/2023 Encounter Details Date Type Department Care Team Description 05/20/2023 Machine Tester Telephone General Internal Medicine [facility] [address] [facility] [place] [address] Cheyenne Avila, RN [address] [place] [address] case management Allergies Active Allergy Reactions Severity Noted Date Comments Nickel Rash 06/01/2018 documented as of this encounter (statuses as of 05/20/2023) Medications Medication Sig Dispensed Refills Start Date [...] as of this encounter (statuses as of 05/20/2023) Active Problems Problem Noted Date Major depressive disorder, recurrent epi sode, moderate 11/15/2018 Depression with anxiety 10/19/2016 Malaise and fatigue 08/18/2010 Tobacco use disorder 11/02/2007 Elevated liver enzymes Migraine Insomnia documented as of this encounter (statuses as of 05/20/2023) Resolved Problems Problem Noted Date Resolved Date Alcohol abuse, in remission 04/24/2023 07/2 05/2023 Routine medical exam 08/18/2010 05/09/2018 documented as of this encounter (statuses as of 05/20/2023) Immunizations Name Administration Dates Next Due Covid-19, [...] Telephone Encounter - Cheyenne Avila RN - 05/20/2023 10:09 AM EDT Follow-up Post Discharge Attempted Phone Call First Attempt Call Outcome Left Voicemail/Message Plan To attempt another outreach documented in this encounter Plan of Treatment Upcoming Encounters Date Type Specialty Care Team Description 06/21/2023 Imaging Radiology 06/21/2023 Office Visit Family Medicine Therese Perez, PAMatt [address] [place] [address] Health Maintenance Due Date Last Done Comments [...] examination documented in this encounter Care Teams Ios Developer Relationship Specialty Start Date End Date Aj Gaston III, MD [address] [place] [address] PCP - General Family Medicine 05/12/23 documented as of this encounter
--- OUTSIDE RECORDS SUMMARY | 2023-08-15 08:07 | External Medical Summary | Summary of Care ---
Author Name Unknown Organization [facility] Address [address] [place] [address] Phone [phone] Care Team Providers Care Rn Nursery Name Role Phone Marilin MICHAELS MD, Aj Westfall Primary Care Provider [phone] Reason for Visit * Reason Onset Date Comments case management 05/26/2023 Encounter Details Date Type Department Care Team Description 05/26/2023 Liquefaction Supervisor Telephone Care Coordination [address] [place], [place] [id number] Maria De Jesus Engle LSW [address], [place] [id number] case management Allergies Active Allergy Reactions Severity Noted Date Comments Nickel Rash 06/01/2018 documented as of this encounter (statuses as of 05/26/2023) Medications Medication Sig Dispensed Refills Start Date [...] as of this encounter (statuses as of 05/26/2023) Active Problems Problem Noted Date Major depressive disorder, recurrent epi sode, moderate 11/15/2018 Depression with anxiety 10/19/2016 Malaise and fatigue 08/18/2010 Tobacco use disorder 11/02/2007 Elevated liver enzymes Migraine Insomnia documented as of this encounter (statuses as of 05/26/2023) Resolved Problems Problem Noted Date Resolved Date Alcohol abuse, in remission 04/24/2023 07/2 05/2023 Routine medical exam 08/18/2010 05/09/2018 documented as of this encounter (statuses as of 05/26/2023) Immunizations Name Administration Dates Next Due Covid-19, [...] * Telephone Encounter - HERIBERTO Rascon - 05/26/2023 12:02 PM EDT [facility] Follow-up Routine Attempted Phone Call Second Attempt Call Outcome Left Voicemail/Message Plan To attempt another outreach [facility] Liquefaction Supervisor (Pronouns: she, her, hers) Care Coordination Integration test kitchen 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
--- OUTSIDE RECORDS SUMMARY | 2023-08-15 08:07 | External Medical Summary | Summary of Care ---
Author Name Unknown Organization [facility] Address [address] [place] [address] Phone [phone] Care Team Providers Care Tennis Director Name Role Phone Marilin MICHAELS MD, Aj Westfall Primary Care Provider [phone] Reason for Visit * Reason Comments case management Encounter Details Date Type Department Care Team Description 05/13/2023 Roller Coaster DesignerProgram Checker Internal Medicine [facility] [address] [place], [place] [phone] Cheyenne Avila, RN [address] [place] [address] Medical home patient encounter* Allergies Active Allergy Reactions Severity Noted Date [...] Notes * Cheyenne Avila RN - 05/13/2023 11:36 AM EDT Follow-up Post Discharge Attempted Phone Call First Attempt Call Outcome Left Voicemail/Message Plan To attempt another outreach documented in this encounter Plan of Treatment Upcoming Encounters Date Type Specialty Care Team Description 05/17/2023 Office Visit Family Medicine Therese Perez PA-C [address] [place] [address] Health Maintenance Due Date Last Done Comments [...] examination documented in this encounter Care Teams Tennis Director Relationship Specialty Start Date End Date Aj Gaston III, MD [address] [place] [address] PCP - General Family Medicine 05/12/23 documented as of this encounter
--- OUTSIDE RECORDS SUMMARY | 2023-08-15 08:08 | External Medical Summary | Summary of Care ---
Author Name Unknown Organization [facility] Address [address] [place] [address] Phone [phone] Care Team Providers Care Fountain Attendant Name Role Phone Unavailable Primary Care Provider Unavailabl e Reason for Visit * Reason Comments Outpatient Testing Encounter Details Date Type Department Care Team Description 04/27/2023 [facility] [address] [place] [address] [facility] [address] [place] [address] Intractable migraine with aura without status migrainosus; Nausea and vomiting, unspecified vomiting type; Alcohol dependence with withdrawal with complication (HCC) Allergies Active Allergy Reactions Severity Noted Date Comments Nickel Rash 06/01/2018 documented as of this encounter (statuses as of 04/27/2023) Medications Medication Sig Dispensed Refills Start Date [...] as of this encounter (statuses as of 04/27/2023) Active Problems Problem Noted Date Major depressive disorder, recurrent epi sode, moderate 11/15/2018 Depression with anxiety 10/19/2016 Malaise and fatigue 08/18/2010 Tobacco use disorder 11/02/2007 Elevated liver enzymes Migraine Insomnia documented as of this encounter (statuses as of 04/27/2023) Resolved Problems Problem Noted Date Resolved Date Alcohol abuse, in remission 04/24/202303/28 Routine medical exam 08/18/2010 05/09/2018 documented as of this encounter (statuses as of 04/27/2023) Immunizations Name Administration Dates Next Due Covid-19, [...] Medicine Therese Perez PA-C [address] [place] [address] Pending Results Name Type Priority Associated Diagnoses Date /Time COMPREHENSIVE METABOLIC PANEL Lab Routine Intractable migraine with aura without status migrainosus Nausea and vomiting, unspecified vomiting type 04/27/2023 11:24 AM EDT ERYTHROCYTE SEDIMENTATION RATE (ESR) Lab Routine Intractable migraine with aura without status migrainosus 04/27/2023 11:24 AM EDT TSH WITH FREE T4 IF INDICATED Lab Routine Intractable migraine with aura without status migrainosus 04/27/2023 11:24 AM EDT AMMONIA Lab Routine Alcohol dependence with withdrawal with complication (HCC) 04/27/2023 11:24 AM EDT LIPASE Lab Routine Nausea and vomiting, unspecified vomiting type 04/27/2023 11:24 AM EDT Health Maintenance Due Date Last Done Comments Hepatitis B (1 of 3 - 3-dose series) 1982 HPV/Co-Test 2012 Depression, Most Recent Score >= 10 (will fire each visit until score < 10) 06/02/2018 06/01/2018 Pneumococcal Vaccine: Pediatrics (0 to 5 Years) and At-Risk Patients (6 to 64 Years) (2 - PCV) 03/01/2020 03/01/2019 Mammogram 2022 Influenza Vaccine (FLU shot) (#1) 2023 Cervical Cancer Screening 08/27/2024 Pap Smear 08/27/2024 08/27/2021, 03/28 (Done elsewhere), 12/21/2014, Additional history exists Lipid Panel 06/12/2025 06/12/2020 DTaP,Tdap,and Td Vaccines (9 - Td or Tdap) 06/04/2031 06/04/2021, 04/22/2015, 04/22/2009, Additional history exists Hepatitis C Screening Completed 12/22/2014 COVID-19 Vaccine Completed 09/23/2022 GARDASIL-HPV IMMUNIZATION SERIES [...] Nausea and vomiting, unspecified vomiting type CBC Routine 04/27/2023 11:24 AM EDT Intractable migraine with aura without status migrainosus Nausea and vomiting, unspecified vomiting type documented in this encounter Results * DIFFERENTIAL, [...] - 4.80 K/ul 04/27/2023 11:31 AM EDT [facility]-02 Absolute Monocytes 0.35 0.00 - 1.10 K/uL 04/27/2023 11:31 AM EDT [facility] 56-02 Absolute Eosinophils 0.24 0.00 - 0.70 K/uL 04/27/2023 11:31 AM EDT [address] Absolute Basophils 0.04 0.00 - 0.20 K/uL 04/27/2023 11:31 AM EDT [address] Blood Venous blood specimen / Unknown Venipuncture / Unknown 04/27/2023 11:24 AM EDT 04/27/2023 11:24 AM EDT Therese Jerel Perez PA-C LAB BLOOD ORDERABLES [place] [address] [place] [address] * (ABNORMAL) CBC (04/27/2023 11:24 AM EDT) WBC 5.51 4.00 - 10.80 K/uL 04/27/2023 11:31 AM EDT [address] RBC 3.38 3.85 - 5.15 M/uL 04/27/2023 11:31 AM EDT [address] HGB 12.6 12.0 - 15.3 g/dL 04/27/2023 11:31 [address] T [address] HCT 38.0 36.0 - 45.2 % 04/27/2023 11:31 AM EDT [address] MCV 112.4 81.5 - 97.5 fL 04/27/2023 11:31 AM EDT [address] MCH 37.3 27.0 - 34.0 pg 04/27/2023 11:31 AM EDT [address] MCHC 33.2 32.0 - 36.0 g/dL 04/27/2023 11:31 AM EDT [address] RDW 12.6 11.5 - 15.5 % 04/27/2023 11:31 AM EDT [address] PLT 113(L) 140 - 400 K/uL 04/27/2023 11:31 AM EDT [address] MPV 10.0 6.6 - 11.1 fL 04/27/2023 11:31 AM EDT [address] Blood Venous blood specimen / Unknown Venipuncture / Unknown 04/27/2023 11:24 AM EDT 04/27/2023 11:24 AM EDT Therese Jerel Perez PA-C LAB BLOOD ORDERABLES [facility] [address] [place], [place] [id number] documented in this encounter Visit Diagnoses Diagnosis Intractable migraine with aura without status migrainosus Migraine with aura, with intractable migraine, so stated, without mention of status migrainosus Nausea and vomiting, unspecified vomiting type Alcohol dependence with withdrawal with complication (HCC) documented in this encounter
--- OUTSIDE RECORDS SUMMARY | 2023-08-15 08:08 | External Medical Summary | Summary of Care ---
Author Name Unknown Organization [facility] Address [address] [place] [address] Phone [phone] Care Team Providers Care Anthropology Department Chair Name Role Phone Unavailable Primary Care Provider Unavailabl e Reason for Visit * Reason Comments Acute Migraine, not eating , lethargic, and pain in right side of below ribcage. Skin pealing on hands and feet. Hands are shaky. Having numbness in lips and feet.Right hand the the pointer finger and pinky the cross toward center of hand. Encounter Details Date Type Department Care Team Description 04/24/2023 Office Visit Family Practice [facility] [address] [facility] [address] Therese Perez PA-C [address] [place] [address] Intractable migraine with aura without status migrainosus*; Nausea and vomiting, unspecified vomiting type; Alcohol dependence with withdrawal with complication (HCC); Major depressive disorder, recurrent episode, moderate ([facility]) Allergies Active Allergy Reactions Severity Noted Date Comments Nickel Rash 06/01/2018 documented as of this encounter (statuses as of 04/24/2023) Medications Medication Sig Dispensed Refills Start Date [...] on 04/24/2023 Ondansetron HCl 4 MG Oral TabletIndications :Nausea and vomiting, unspecified vomiting type Take 1 Tablet by mouth every 6 hours as needed for Nausea. 30 Tablet 0 04/24/2023 Active fluticasone (FLONASE) 50 MCG/ACT nasal spray Administer 1 [place] into nostril daily. 16 g 12 2018 3 Discontinue d(Medicatio n List Clean Up) buPROPion HCl ER (SR) 150 MG Oral Tablet Extended Release 12 HourIndications:M ajor depressive disorder, recurrent episode, moderate (HCC) 150 mg 2 times a day. 90 Tab 1 11/15/2018 3 Discontinue d(Medicatio n List Clean Up) Gabapentin 100 MG Oral Capsule (Neurontin) Take 100 mg by mouth 3 times a day. 0 3 Discontinue d(Medicatio n List Clean Up) Drospirenone-Ethi nyl Estradiol 3-0.02 MG Oral Tablet (CONSTANCE)Indications: Abnormal menstrual cycle Take by mouth 1 Tablet in the morning. 84 Tablet 3 04/21/2022 3 Discontinue d(Patient preference/ discontinua tion) Ondansetron HCl 4 MG Oral TabletIndications :Nausea and vomiting, unspecified vomiting type Take 1 Tablet by mouth every 6 hours as needed for Nausea. 30 Tablet 0 04/24/2023 3 Discontinue d(Refill) Hospital, Clinic, or Other Facility Administered Medication Ordered Dose Route Frequency Start Date End Date Status ondansetron ODT (Zofran) tab 4 mgIndications:Nausea and vomiting, unspecified vomiting type 4 mg OR ONCE 04/24/2023 04/24/2023 Discontinued ondansetron (Zofran) tab 4 mgIndications:Nausea and vomiting, unspecified vomiting type 4 mg OR ONCE 04/24/2023 04/24/2023 Ended documented as of this encounter (statuses as of 04/24/2023) Active Problems Problem Noted Date Major depressive disorder, recurrent epi sode, moderate 11/15/2018 Depression with anxiety 10/19/2016 Malaise and fatigue 08/18/2010 Tobacco use disorder 11/02/2007 Elevated liver enzymes Migraine Insomnia documented as of this encounter (statuses as of 04/24/2023) Resolved Problems Problem Noted Date Resolved Date Alcohol abuse, in remission 04/24/[address] 05/2023 Routine medical exam 08/18/2010 05/09/2018 documented as of this encounter (statuses as of 04/24/2023) Immunizations Name Administration Dates Next Due PPD 09/16/2020,,07/26/2020,06/15 Pneumococcal Polysaccharide PPV23 (Pneumovax) 03/01/2019 TDAP (age 10 and older)(Boostrix) 06/04/2021 TDAP (age 11 and older)(Adacel) 04/22/2009 documented as of this encounter Social History [...] Sign Reading Time Taken Comments Blood Pressure 100/62 04/24/2023 3:07 PM EDT Pulse 108 04/24/2023 3:07 PM EDT Temperature 36.3 C (97.3 F) 04/24/2023 3:07 PM ED T Respiratory Rate - - Oxygen Saturation 98% 04/24/2023 3:07 PM EDT Inhaled Oxygen Concentration - - Weight 55.8 kg (123 lb) 04/24/2023 3:07 PM EDT Height - - Body Mass Index 21.13 03/17/2022 12:18 PM EDT documented in this encounter Progress Notes * Therese Perez PA-C - 04/24/2023 3:14 PM EDT Images from the original note were not included. History of Present Illness Emma Lundberg is a 42 year old female that presents for Acute (Migraine, not eating, lethargic, and pain in right side of below ribcage. Skin pealing on hands and feet. Hands are shaky. Having numbness in lips and feet./Right hand the the pointer finger and pinky the cross toward center of hand. ) Patient is a 42 year old female who presents with a migraine which has been present for over 24 hours. She is nauseated, vomiting, tremoring of hands. Extreme fatigue, lethargic Was sober for 6 years. Had a miscarriage started drinking again. Quit Cold turkey stopped on 03/26/23 Appetite poor Sleep variable pattern Urination/ bowel movements ok, but not eating to really have bowel movements, due to lack of food intake. Very difficult to get a history as mother accompanied patient and kept interjecting. Patient was frequently correcting her mother's input. Physical Exam Vitals: 04/24/23 1507 Temp: 36.3 C (97.3 F) Pulse: 108 SpO2: 98% BP: 100/62 BP Readings from Last 3 Encounters: 04/24/23 100/62 03/17/22 106/70 09/10/21 90/50 Wt Readings from Last 3 Encounters: 04/24/23 55.8 kg (123 lb) 03/17/22 53.5 kg (118 lb 0.6 oz) 09/10/21 53.5 kg (118 lb) General: alert, well nourished, well developed, anxious, cooperative, crying, ill looking, restlessand experiencing shaking and tremoring during exam Head: Normocephalic, No masses, lesions, tenderness or abnormalities Eye Exam: PERRLA, extraocular movements intact, conjunctiva are pink and non- injected, sclera clear Ears: External ears normal, Canals clear, TM's Normal Nose: no mucosal erythema, no mucosal edema, no purulent discharge Oropharynx: no exudate, no erythema, lips, buccal mucosa, and tongue normal and mucous membranes are moist Neck: supple, no adenopathy, no bruits, thyroid normal size, non-tender, without nodularity Heart: regular rate & rhythm, no murmur and no gallops Lungs: chest symmetric with normal AP diameter, no chest deformities noted, normal respiratory rateand rhythm, no chest wall tenderness, diaphragmatic excursion normal, lungs clear to auscultation Abdomen: abdomen soft, non-tender, normal bowel sounds, no masses or organomegaly, no rebound or guarding, no CVA tenderness and no bladder distention identified Back: back symmetric, no curvature, no costovertebral angle tenderness, range of motion is normal, no skin lesions, erythema or scars, no tenderness to percussion or palpation Neuro Exam: alert & oriented x 3 with fluent speech, no focal motor/sensory deficits, reflexes normal and symmetric, difficulty ambulating. Skin tugor was normal. I have reviewed the following results: None Assessment and Plan Intractable migraine with aura without status migrainosus (Primary) - CBC WITH WBC DIFFERENTIAL; Future; Expected date: 04/24/2023 - COMPREHENSIVE METABOLIC PANEL; Future; Expected date: 04/24/2023 - ERYTHROCYTE SEDIMENTATION RATE (ESR); Future; Expected date: 04/24/2023 - TSH WITH FREE T4 IF INDICATED; Future; Expected date: 04/24/2023 Nausea and vomiting, unspecified vomiting type - CBC WITH WBC DIFFERENTIAL; Future; Expected date: 04/24/2023 - COMPREHENSIVE METABOLIC PANEL; Future; Expected date: 04/24/2023 - LIPASE; Future; Expected date: 04/24/2023 - Ondansetron HCl 4 MG Oral Tablet; Take 1 Tablet by mouth every 6 hours as needed for Nausea. - ondansetron (Zofran) tab 4 mg Alcohol dependence with withdrawal with complication (HCC) - AMMONIA; Future; Expected date: 04/24/2023 Major depressive disorder, recurrent episode, moderate (HCC) Recommended ER for hydration and STAT labs. Also discussed with patient they could give her meds for the headache if hydration didn't help. Patient seemed to consider when she was alone with examiner. Mother kept trying to force herself into the visit. Tensions between daughter and mother noted. Wrap-Up Time: I spent a total of 30-39 minutes (exact time 37 mins) on the date of service in preparation, delivery, and documentation of the care provided to Emma Lundberg excluding any time spent in the performance of separately billed services. documented in this encounter Nursing Notes * Ashley Snider LPN - 04/24/2023 3:03 PM EDT Chief Complaint Patient presents with Acute Migraine, not eating, lethargic, and pain in right side of below ribcage. Skin pealing on hands andfeet. Hands are shaky. Having numbness in lips and feet. Right hand the the pointer finger and pinky the cross toward center of hand. documented in this encounter Plan of Treatment Upcoming Encounters Date Type Specialty Care Team Description 05/19/2023 Office Visit Family Medicine Therese Perez, JULIA [address] [facility] [place] [address] Scheduled Orders Name Type Priority Associated Diagnoses Orde r Schedule CBC WITH WBC DIFFERENTIAL Lab Routine Intractable migraine with aura without status migrainosus Nausea and vomiting, unspecified vomiting type Expected: 04/24/2023 (Approximate), Expires: 04/24/2024 COMPREHENSIVE METABOLIC PANEL Lab Routine Intractable migraine with aura without status migrainosus Nausea and vomiting, unspecified vomiting type Expected: 04/24/2023 (Approximate), Expires: 04/23/2024 ERYTHROCYTE SEDIMENTATION RATE (ESR) Lab Routine Intractable migraine with aura without status migrainosus Expected: 04/24/2023 (Approximate), Expires: 04/23/2024 TSH WITH FREE T4 IF INDICATED Lab Routine Intractable migraine with aura without status migrainosus Expected: 04/24/2023 (Approximate), Expires: 04/23/2024 AMMONIA Lab Routine Alcohol dependence with withdrawal with complication (HCC) Expected: 04/24/2023, Expires: 04/24/2024 LIPASE Lab Routine Nausea and vomiting, unspecified vomiting type Expected: 04/24/2023 (Approximate), Expires: 04/23/2024 Health Maintenance Due Date Last Done Comments Hepatitis B (1 of 3 - 3-dose series) 1982 COVID-19 Vaccine (#1) 02/06/1983 HPV/Co-Test 2012 Depression, Most Recent Score >= [...] Lipid Panel 06/12/2025 06/12/2020 DTaP,Tdap,and Td Vaccines (3 - Td or Tdap) 06/04/2031 06/04/2021, 04/22/2009 Hepatitis C Screening Completed 12/22/2014 GARDASIL-HPV IMMUNIZATION SERIES Aged Out No longer eligible based on patient's age to complete this topic MENINGOCOCCAL (MENACTRA/MENVEO) Aged Out No longer eligible based on patient's age to complete this topic documented as of this encounter Medical Devices Not on filedocumented as of this encounter Visit Diagnoses Diagnosis Intractable migraine with aura without status migrainosus- Primary Migraine with aura, with intractable migraine, so stated, without mention of status migrainosus Nausea and vomiting, unspecified vomiting type Alcohol dependence with withdrawal with complication (HCC) Major depressive disorder, recurrent episode, moderate (HCC) Major depressive disorder, recurrent episode, moderate documented in this encounter Administered Medications Inactive Administered Medications - up to 3 most recent administrations Medication Order MAR Action Action Date Dose Rate Site ondansetron (Zofran) tab 4 mg 4 mg, Oral, ONCE, On 04/24/23 at 1630, For 1 dose Given 04/24/2023 4:11 PM EDT 4 mg Other-Specify documented in this encounter
--- OUTSIDE RECORDS SUMMARY | 2023-08-15 08:08 | External Medical Summary | Summary of Care ---
Author Name Unknown Organization [facility] Address [address] [place] [address] Phone [phone] Care Team Providers Care Security Incident Response Engineer Name Role Phone Unavailable Primary Care Provider Unavailabl e Encounter Details Date Type Department Care Team Description 04/12/2023 Orders Only Outcomes Research Department [address] [place] [address] Shannen Turner CHRA [facility] Other*[id number] Allergies Active Allergy Reactions Severity Noted Date Comments Nickel Rash 06/01/2018 documented as of this encounter (statuses as of 04/12/2023) Medications Medication Sig Dispensed Refills Start Date End Date Status fluticasone (FLONASE) 50 MCG/ACT nasal spray Administer 1 [place] into nostril daily. 16 g 12 2018 Active buPROPion extended release, SR, (WELLBUTRIN SR) 150 MG [id number]:Jose or depressive disorder, recurrent episode, moderate (HCC) 150 mg 2 times a day. 90 Tab 1 11/15/2018 Active Melatonin 10 MG Tablet Take 1 Tab by mouth at bedtime. 0 11/15/2018 Active VENTOLIN HFA 108 (90 Base) MCG/ACT inhaler INHALE 2 PUFFS BY MOUTH 4 TIMES A DAY 18 g 1 04/17/2019 Active Gabapentin 100 MG Oral Capsule (Neurontin) Take 100 mg by mouth 3 times a day. 0 Active Amitriptyline HCl 50 MG Oral Tablet (Elavil) Take 50 mg by mouth at bedtime. Use as needed- may use 1/2 to full tab. 0 Active Drospirenone-Ethiny l Estradiol 3-0.02 MG Oral Tablet (CONSTANCE)Indications:Ab normal menstrual cycle Take by mouth 1 Tablet in the morning. 84 Tablet 3 04/21/2022 Active valACYclovir HCl 1 GM Oral Tablet (Valtrex) TAKE 1 TABLET BY MOUTH IN THE MORNING AND 1 TAB BEFORE BEDTIME FOR 7 DAYS 14 Tablet 1 12/07/2022 Active documented as of this encounter (statuses as of 04/12/2023) Active Problems Problem Noted Date Major depressive disorder, recurrent epi sode, moderate 11/15/2018 Depression with anxiety 10/19/2016 Malaise and fatigue 08/18/2010 Tobacco use disorder 11/02/2007 Alcohol abuse, in remission Elevated liver enzymes Migraine Insomnia documented as of this encounter (statuses as of 04/12/2023) Resolved Problems Problem Noted Date Resolved Date Routine medical exam 08/18/2010 05/09/2018 documented as of this encounter (statuses as of 04/12/2023) Immunizations Name Administration Dates Next Due PPD 09/16/2020, 0,07/26/2020,06/15 Pneumococcal Polysaccharide PPV23 (Pneumovax) [...] as of this encounter Plan of Treatment Scheduled Orders Name Type Priority Associated Diagnoses Orde r Schedule MYCODE INITIAL ADULT Lab Routine [facility] Other*[id number] Expected: 04/12/2023 (Approximate), Expires: 05/01/2024 Health Maintenance Due Date Last Done Comments Hepatitis B (1 of 3 - 3-dose series) 1980 COVID-19 Vaccine (#1) 02/06/1983 Depression, Most Recent Score >= 10 (will fire each visit until score < 10) 06/02/2018 06/01/2018 Pneumococcal Vaccine: Pediatrics (0 to 5 Years) and At-Risk Patients (6 to 64 Years) (2 - PCV) 03/01/2020 03/01/2019 Mammogram 2022 Influenza Vaccine (FLU shot) (#1) 2023 Lipid Panel 06/12/2025 06/12/2020 Pap Smear 08/27/2026 08/27/2021, 03/28 (Done elsewhere), 12/21/2014, Additional history exists DTaP,Tdap,and Td Vaccines (3 - Td or [...] as of this encounter Visit Diagnoses Diagnosis [facility] Other*[id number] documented in this encounter
--- OUTSIDE RECORDS SUMMARY | 2023-08-15 08:08 | External Medical Summary ---
Author Name Unknown Address Unknown Organization [id number]:[facility] [place] [address] [place] [address] Laboratory Report Ordering Provider Test Date Status 04/27/2023 11:24:05 Final Observation Date Value Abnormality Reference (Units ) Status Erythrocyte sedimentation rate by Photometric method 04/27/2023 11:24:05 3 <20 (mm/hour) Final Performing Location [facility] [place] [address] [place] [address]
--- OUTSIDE RECORDS SUMMARY | 2023-08-15 08:08 | External Medical Summary ---
Author Name Unknown Address Unknown Organization K09:[facility] [address] [place] [address] Laboratory Report Ordering Provider Test Date Status 04/27/2023 11:24:05 Final Observation Date Value Abnormality Reference (Units ) Status WBC, Total 04/27/2023 11:24:05 5.51 4.00-10.8 0 (K/uL) Final RBC 04/27/2023 11:24:05 3.38 3.85-5.15 (M/uL) Final Hemoglobin 04/27/2023 11:24:05 12.6 12.0-15.3 (g/dL) Final HCT 04/27/2023 11:24:05 38.0 36.0-45.2 (%) Final MCV 04/27/2023 11:24:05 112.4 81.5-97.5 (fL) Final MCH 04/27/2023 11:24:05 37.3 27.0-34.0 (pg) Final MCHC 04/27/2023 11:24:05 33.2 32.0-36.0 (g/dL) Final RDW 04/27/2023 11:24:05 12.6 11.5-15.5 (%) Final Platelets 04/27/2023 11:24:05 113 Below low normal 140 -400 (K/uL) Final MPV 04/27/2023 11:24:05 10.0 6.6-11.1 ( fL) Final Performing Location [facility] [address] [place] [address]
--- OUTSIDE RECORDS SUMMARY | 2023-08-15 08:08 | External Medical Summary ---
Author Name Unknown Address Unknown Organization K09:[facility] [place] [address] [place] [address] Laboratory Report Ordering Provider Test Date Status 04/27/2023 11:24:05 Final Observation Date Value Abnormality Reference (Units ) Status SYNC LEUKOCYTES IN BLOOD BY AUTOMATED COUNT 04/27/2023 11:24:05 5.51 4.00-10.80 (K/uL) Final Segs 04/27/2023 11:24:05 50.0 40.0-75.0 (%) Final Lymphs % 04/27/2023 11:24:05 38.5 18.0-42.0 (%) Final Monos 04/27/2023 11:24:05 6.4 1.0-11.0 (%) Final Eosinophils 04/27/2023 11:24:05 4.4 0.0-6.0 (%) Final Basos 04/27/2023 11:24:05 0.7 0.0-2.0 (%) Final Absolute Segs 04/27/2023 11:24:05 2.76 1.80-7.70 (K/uL) Final Lymphs, absolute 04/27/2023 11:24:05 2.12 1.00-4.80 (K/ul) Final Monos, Abs 04/27/2023 11:24:05 0.35 0.00-1.10 (K/uL) Final Eos, Abs 04/27/2023 11:24:05 0.24 0.00-0.70 (K/uL) Final Basos, Abs 04/27/2023 11:24:05 0.04 0.00-0.20 (K/uL) Final Performing Location [facility] [place] [address] [place] [address]
--- OUTSIDE RECORDS SUMMARY | 2023-08-15 08:08 | External Medical Summary | Summary of Care ---
Author Name Unknown Organization [facility] Address [address] [place] [address] Phone [phone] Care Team Providers Care Dishwashing Machine Operator Name Role Phone Unavailable Primary Care Provider Unavailabl e Reason for Visit * Reason Onset Date Comments Appointment 04/22/2023 FYI 04/22/2023 Encounter Details Date Type Department Care Team Description 04/22/2023 Telephone Family Practice [facility] [address] [facility] [address] Therese Perez PA-C [address] [place] [address] Appointment; Allergies Active Allergy Reactions Severity Noted Date Comments Nickel Rash 06/01/2018 documented as of this encounter (statuses as of 04/22/2023) Medications Medication Sig Dispensed Refills Start Date End Date Status fluticasone (FLONASE) 50 MCG/ACT nasal spray Administer 1 [place] into nostril daily. 16 g 12 2018 Active buPROPion extended release, SR, (WELLBUTRIN SR) 150 MG [id number]:Jose or depressive disorder, recurrent episode, moderate (HCC) [...] as of this encounter (statuses as of 04/22/2023) Active Problems Problem Noted Date Major depressive disorder, recurrent epi sode, moderate 11/15/2018 Depression with anxiety 10/19/2016 Malaise and fatigue 08/18/2010 Tobacco use disorder 11/02/2007 Alcohol abuse, in remission Elevated liver enzymes Migraine Insomnia documented as of this encounter (statuses as of 04/22/2023) Resolved Problems Problem Noted Date Resolved Date Routine medical exam 08/18/2010 05/09/2018 documented as of this encounter (statuses as of 04/22/2023) Immunizations Name Administration Dates Next Due PPD [...] encounter Miscellaneous Notes * Telephone Encounter - Eneida Carrillo RN [...] call and leave message if necessary.mom # [phone] very concerned for her health. documented in this encounter Plan of Treatment Upcoming Encounters Date Type Specialty Care Team Description 05/19/2023 Office Visit Family Medicine Therese Perez, [place] [address] [facility] [address] Health Maintenance Due Date Last Done Comments [...]
--- OUTSIDE RECORDS SUMMARY | 2023-08-15 08:08 | External Medical Summary | Summary of Care ---
Author Name Unknown Organization [facility] Address [address] [place] [address] Phone [phone] Care Team Providers Care Talent Consultant Name Role Phone Unavailable Primary Care Provider Unavailabl e Encounter Details Date Type Department Care Team Description 04/22/2023 Telephone Gynecology/Obstetrics [facility] [address] [place] [address] Kisha Vargas MD [address] [place] [address] Allergies Active Allergy Reactions Severity Noted Date Comments Nickel Rash 06/01/2018 documented as of this encounter (statuses as of 04/22/2023) Medications Medication Sig Dispensed Refills Start Date End Date Status fluticasone (FLONASE) 50 MCG/ACT nasal spray Administer 1 [place] into nostril daily. 16 g 12 2018 Active buPROPion extended release, SR, (WELLBUTRIN SR) 150 MG [id number]:Jose or depressive disorder, recurrent episode, moderate (HCC) [...] encounter Miscellaneous Notes * Telephone Encounter - Ping Hurley RN - 04/22/2023 2:26 PM EDT Scheduled with PCP. Patient has not been seen by us since 2020. No documentation of miscarriage. Patient should be seen by PCP for mental health concerns. * Telephone Encounter - PATTIE Rodriguez - 04/22/2023 11:07 AM EDT Pt asking to be seen Soon sooner she had a miscarriage back in Jun, Is really having hard time Mentally. Please Assist if possible Mom Name is Jessenia you can leave [phone] on her AM . documented in this encounter Plan of Treatment Upcoming Encounters Date Type Specialty Care Team Description 05/19/2023 Office Visit Family Medicine Therese Perez, HUBERTC [address] [facility] [place] [address] Health Maintenance Due Date Last Done Comments [...]
--- OUTSIDE RECORDS SUMMARY | 2023-08-15 08:08 | External Medical Summary ---
Author Name Unknown Address Unknown Organization K01:[facility] - [address] [place] [address] Laboratory Report Ordering Provider Test Date Status 04/27/2023 11:24:05 Final Observation Date Value Abnormality Reference (Units ) Status Ammonia 04/27/2023 11:24:05 57 Above high normal 11 -35 (umol/L) Final Performing Location [facility] - [address] [place] [address]
--- OUTSIDE RECORDS SUMMARY | 2023-08-15 08:08 | External Medical Summary ---
Author Name Unknown Address Unknown Organization K09:[facility] [address] [place] [address] Laboratory Report Ordering Provider Test Date Status 04/27/2023 11:24:05 Final Observation Date Value Abnormality Reference (Units ) Status BUN 04/27/2023 11:24:05 5 Below low normal 6-20 (mg/dL) Final Creatinine 04/27/2023 11:24:05 0.7 0.5-1.0 (mg/dL) Final Glomerular filtration rate/1.73 sq M.predicted [Volume Rate/Area] in Serum, Plasma or Blood by Creatinine-based formula (CKD-EPI) 04/27/2023 11:24:05 >90 >=60 (mL/min) Final eGFR is calculated based on the CKD-EPI 2020 equation SODIUM 04/27/2023 11:24:05 144 135-146 (m mol/L) Final Potassium 04/27/2023 11:24:05 4.7 3.5-5.1 (m mol/L) Final Cl 04/27/2023 11:24:05 103 98-107 (mm ol/L) Final CO2 04/27/2023 11:24:05 25 22-32 (mmo l/L) Final Anion gap 04/27/2023 11:24:05 16 Above high normal 7- 15 (mmol/L) Final Glucose 04/27/2023 11:24:05 96 70-120 (mg /dL) Final Albumin 04/27/2023 11:24:05 4.7 3.8-5.0 (g /dL) Final AST (Aspartate aminotransferase) 04/27/2023 11:24:05 285 Above high normal 10-35 (U/L) Final Alk Phos 04/27/2023 11:24:05 84 35-130 (U/ L) Final Bilirubin, Total 04/27/2023 11:24:05 0.5 <=1 .2 (mg/dL) Final Calcium 04/27/2023 11:24:05 9.3 8.4-10.2 ( mg/dL) Final Protein 04/27/2023 11:24:05 6.9 6.0-8.3 (g /dL) Final ALT (Alanine aminotransferase) 04/27/2023 11:24:05 91 Above high normal 10-35 (U/L) Final Performing Location [facility] [address] [place] [address]
--- OUTSIDE RECORDS SUMMARY | 2023-08-15 08:08 | External Medical Summary ---
Author Name Unknown Address Unknown Organization K01:[facility] - [address] [facility] [address] Laboratory Report Ordering Provider Test Date Status 04/27/2023 11:24:05 Final Observation Date Value Abnormality Reference (Units ) Status Lipase 04/27/2023 11:24:05 81 Above high normal 13 -60 (U/L) Final Performing Location [facility] - [address] [place] [address]
--- OUTSIDE RECORDS SUMMARY | 2023-08-15 08:08 | External Medical Summary ---
Author Name Unknown Address Unknown Organization K01:[facility] - [address] [place] [address] Laboratory Report Ordering Provider Test Date Status 04/27/2023 11:24:05 Final Observation Date Value Abnormality Reference (Units ) Status TSH 04/27/2023 11:24:05 1.72 0.27-4.20 (uIU/mL) Final Performing Location [facility] - [address] [place] [address]
[2023-08-15 08:25] LABS: Albumin Level 3.6 gm/dl (3.4-5.0); Bilirubin Direct 0.2 mg/dl (0-0.2); Bilirubin,Total 1.1 mg/dl (0.2-1.0); Magnesium 1.4 mg/dl (1.7-2.4); Phosphorus 1.4 mg/dl (2.5-4.9)
[2023-08-15] MEDS ORDERED: POTASSIUM PHOS 3 MMOL/1 ML INFUSION IV STA (08:48)
[2023-08-15] MEDS ORDERED: POTASSIUM PHOSPHATE 21 MMOL in SODIUM CHLORIDE 0.9% 500 ML IV ONE (09:00)
[2023-08-15] MEDS: MAGNESIUM SULFATE / D5W 1 GM/100 ML BAG IV SCH ×3 (09:50→13:16)
[2023-08-15] MEDS: POT PHOSPHATE MONOBASIC W/ SOD TAB PO SCH ×4 (10:08→22:26)
--- NOTE | 2023-08-15 15:47 | Hospitalist Progress Note ---
Date of Service August 15, 2023 Assessment & Plan (1) Alcohol withdrawal: Plan 43-year-old lady with PMH of anxiety/mood disorder, fatty liver, alcohol abuse, ongoing vape use presented to the ED 08/13 with complaint of poor appetite/nausea/vomiting and wants to detox. Patient denied abdominal pain/black or bloody stool/hematemesis or coffee-ground emesis at presentation. 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 She is being managed for the following: #. Impending Alcohol withdrawal #. Alcohol intoxication Patient with history of alcohol abuse, has not been sober much per her since her last discharge Last drink 08/13 evening; drinks "many" shots of vodka a day. 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 Alcohol level 332 at presentation. Hemoconcentration noted at presentation, likely from dehydration. Continue with thiamine, folic acid. AWSS protocol and gabapentin taper. CM to assist w/ resources/rehab setup. Improving N, V and appetite. repleted electrolytes today. Transaminitis:AST elevation, likely secondary to alcohol use. Follow LFT. Downtrending. Other chronic medical conditions:Continue with/resume home meds as and when able anxiety/mood disorder, at baseline. Continue with home dose of BuSpar DVT prophylaxis. Lovenox subcu Full code Patient's mother Ms. Jessenia Bauer, contact #[phone]. Admission and Anticipated Discharge Date Admission Date: August 14, 2023 Subjective Patient was seen and examined at bedside. Patient was lying in bed, on room air, resting comfortably, not in any acute distress. Patient reports improving nausea/vomiting, reports eating better today. Patient denies any new acute event overnight. Patient denies any headache or dizziness or chest pain. Physical Exam Physical Exam: GENERAL: Alert and oriented x3. NAD, on RA. HEENT: No pallor, no icterus. Pupils equal, round and reactive to light. Oral mucosa moist. NECK: No JVD, no neck masses. HEART: S1 and S2 heard. Regular rate and rhythm. Tachycardia. No murmur, no gallop. RESPIRATORY SYSTEM: Normal AP diameter. No accessory muscle use. No wheezing, no crackles. ABDOMEN: Soft, bowel sounds present, nontender, no distention. CENTRAL NERVOUS SYSTEM: No facial droop. Speech is clear. Obeys simple com mands. Moves extremities. EXTREMITIES: No edema, no erythema seen. Results & Data Results & Data Vital Signs (Past 12 Hours) Vital Signs Temp Pulse Pulse Resp BP Pulse Ox Pulse Ox 08/15/23 15:35 37.0 C 98 H 17 112/81 98 08/15/23 11:51 36.9 C 78 16 104/72 97 08/15/23 08:15 80 08/15/23 07:52 36.7 C 75 18 116/79 98 08/15/23 04:18 36.8 C 82 18 98/64 L 98 08/15/23 04:18 98 O2 Del Method O2 Del Method 08/15/23 15:35 Room Air 08/15/23 11:51 Room Air 08/15/23 08:15 08/15/23 07:52 Room Air 08/15/23 04:18 Room Air 08/15/23 04:18 Room Air
[2023-08-15] MEDS: PROMETHAZINE HCL 6.25 MG in SODIUM CHLORIDE 0.9% 50 ML IV PRN ×2 (16:48→22:23)
[2023-08-15] MEDS: LORazepam 1 MG in SYRINGE 0.5 ML IV PRN (16:49)
[2023-08-15] MEDS: MELATONIN 3 MG TAB PO PRN (22:27)
[2023-08-15] MEDS: ACETAMINOPHEN 325 MG TAB PO PRN (22:29)
[2023-08-16] MEDS: GABAPENTIN 600 MG TAB PO SCH ×3 (03:00→15:03)
[2023-08-16] MEDS: FOLIC ACID 1 MG TAB PO SCH (08:37)
[2023-08-16] MEDS: THIAMINE HCL 100 MG TAB PO SCH (08:37)
[2023-08-16] MEDS: MULTIVITAMIN TAB PO SCH (08:37)
[2023-08-16] MEDS: busPIRone 5 MG TAB PO SCH ×3 (08:37→20:15)
[2023-08-16] MEDS: ENOXAPARIN INJ 40 MG/0.4 ML SYR SQ SCH (08:38)
[2023-08-16 09:28] LABS: Calcium 8.8 mg/dl (8.6-10.3); Creatinine Clr Calc Pharmacy 127.9 ml/min; Est GFR (African American) 139.3 ml/min; Est GFR (Non-African American) 120.2 ml/min; Magnesium 1.8 mg/dl (1.7-2.4); Phosphorus 5.4 mg/dl (2.5-4.9); Potassium 3.8 mmol/L (3.5-5.1)
[2023-08-16] MEDS: LORazepam 1 MG in SYRINGE 0.5 ML IV PRN (10:45)
[2023-08-16] MEDS ORDERED: POTASSIUM CHLORIDE CRTAB 20 MEQ TABCR PO STA (11:49)
--- NOTE | 2023-08-16 11:54 | Hospitalist Progress Note ---
Date of Service August 16, 2023 Assessment & Plan (1) Alcohol withdrawal: Plan 43-year-old lady with PMH of anxiety/mood disorder, fatty liver, alcohol abuse, ongoing vape use presented to the ED 08/13 with complaint of poor appetite/nausea/vomiting and wants to detox. Patient denied abdominal pain/black or bloody stool/hematemesis or coffee-ground emesis at presentation. 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 She is being managed for the following: #. Impending Alcohol withdrawal #. Alcohol intoxication Patient with history of alcohol abuse, has not been sober much per her since her last discharge Last drink 08/13 evening; drinks "many" shots of vodka a day. 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 Alcohol level 332 at presentation. Hemoconcentration noted at presentation, likely from dehydration. Continue with thiamine, folic acid. AWSS protocol and gabapentin taper. CM to assist w/ resources/rehab setup. Improving N, V and appetite. repleted electrolytes - kcl today. Transaminitis:AST elevation, likely secondary to alcohol use. Follow LFT. Downtrending. Other chronic medical conditions:Continue with/resume home meds as and when able anxiety/mood disorder, at baseline. Continue with home dose of BuSpar DVT prophylaxis. Lovenox subcu Full code Patient's mother Ms. Jessenia Bauer, contact #[phone]. Admission and Anticipated Discharge Date Admission Date: August 14, 2023 Subjective Patient was seen and examined at bedside. Patient was lying in bed, on room air, resting comfortably, not in any acute distress. Patient reports had nausea and vomiting last evening but better today. Patient denies any new acute event overnight. Patient denies any headache or dizziness or chest pain. reports having slept well last night. Physical Exam Physical Exam: GENERAL: Alert and oriented x3. NAD, on RA. HEENT: No pallor, no icterus. Pupils equal, round and reactive to light. Oral mucosa moist. NECK: No JVD, no neck masses. HEART: S1 and S2 heard. Regular rate and rhythm. Tachycardia. No murmur, no gallop. RESPIRATORY SYSTEM: Normal AP diameter. No accessory muscle use. No wheezing, no crackles. ABDOMEN: Soft, bowel sounds present, nontender, no distention. CENTRAL NERVOUS SYSTEM: No facial droop. Speech is clear. Obeys simple commands. Moves extremities. EXTREMITIES: No edema, no erythema seen. Results & Data Results & Data Vital Signs (Past 12 Hours) Vital Signs Temp Pulse Pulse Resp BP Pulse Ox Pulse Ox 08/16/23 10:25 110 H 08/16/23 08:00 36.7 C 65 17 114/80 98 08/16/23 07:30 68 08/16/23 03:05 36.5 C 72 16 111/80 98 08/16/23 03:05 98 O2 Del Method O2 Del Method 08/16/23 10:25 08/16/23 08:00 Room Air 08/16/23 07:30 08/16/23 03:05 Room Air 08/16/23 03:05 Room Air
[2023-08-16] MEDS: LORazepam 2 MG in SYRINGE 1 ML IV PRN (20:14)
[2023-08-16] MEDS: MELATONIN 3 MG TAB PO PRN (22:01)
[2023-08-16] MEDS: oxyCODONE HCL IR 5 MG TAB (IMMEDIATE RELEASE) PO PRN (22:01)
[2023-08-17] MEDS: oxyCODONE HCL IR 5 MG TAB (IMMEDIATE RELEASE) PO PRN ×5 (02:44→22:44)
[2023-08-17] MEDS: busPIRone 5 MG TAB PO SCH ×3 (08:06→22:31)
[2023-08-17] MEDS: ENOXAPARIN INJ 40 MG/0.4 ML SYR SQ SCH (08:06)
[2023-08-17] MEDS: THIAMINE HCL 100 MG TAB PO SCH (08:07)
[2023-08-17] MEDS: FOLIC ACID 1 MG TAB PO SCH (08:07)
[2023-08-17] MEDS: MULTIVITAMIN TAB PO SCH (08:07)
[2023-08-17 08:17] LABS: Albumin Globulin Ratio 1.5 (0.9-2); Albumin Level 3.8 gm/dl (3.4-5.0); BUN Creatinine Ratio 26.4 (10-20); Bilirubin,Total 0.4 mg/dl (0.2-1.0); Calcium 9.3 mg/dl (8.6-10.3); Creatinine Clr Calc Pharmacy 120.6 ml/min; Est GFR (African American) 136.7 ml/min; Est GFR (Non-African American) 117.9 ml/min; Globulin 2.5 gm/dl (2.5-4.0); Magnesium 1.6 mg/dl (1.7-2.4); Phosphorus 4.8 mg/dl (2.5-4.9); Potassium 3.9 mmol/L (3.5-5.1); Total Protein 6.3 gm/dl (6.0-8.3)
[2023-08-17] MEDS: GABAPENTIN 600 MG TAB PO SCH (13:01)
[2023-08-17] MEDS ORDERED: MAGNESIUM SULFATE / D5W 1 GM/100 ML BAG IV ONE (14:54)
--- NOTE | 2023-08-17 14:57 | Hospitalist Progress Note ---
Date of Service August 17, 2023 Assessment & Plan (1) Alcohol withdrawal: Plan 43-year-old lady with PMH of anxiety/mood disorder, fatty liver, alcohol abuse, ongoing vape use presented to the ED 08/13 with complaint of poor appetite/nausea/vomiting and wants to detox. Patient denied abdominal pain/black or bloody stool/hematemesis or coffee-ground emesis at presentation. 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 She is being managed for the following: #. Impending Alcohol withdrawal #. Alcohol intoxication Patient with history of alcohol abuse, has not been sober much per her since her last discharge Last drink 08/13 evening; drinks "many" shots of vodka a day. 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 Alcohol level 332 at presentation. Hemoconcentration noted at presentation, likely from dehydration. Continue with thiamine, folic acid. AWSS protocol and gabapentin taper. CM to assist w/ resources/rehab setup. Improving N, V and appetite. repleted electrolytes - magnesium today. Transaminitis:AST elevation, likely secondary to alcohol use. Follow LFT. overall Downtrending. Other chronic medical conditions:Continue with/resume home meds as and when able anxiety/mood disorder, at baseline. Continue with home dose of BuSpar DVT prophylaxis. Lovenox subcu Full code Patient's mother Ms. Jessenia Bauer, contact #[phone]. Admission and Anticipated Discharge Date Admission Date: August 14, 2023 Subjective Patient was seen and examined at bedside. Patient was lying in bed, on room air, resting comfortably, not in any acute distress. Patient denies any new acute event overnight but has occasional nausea/dry heaves. Eating ok and moving bowels ok though. Reports overall improving nausea and dry heaves. Patient denies any headache or dizziness or chest pain. reports sleeping well over night. Physical Exam Physical Exam: GENERAL: Alert and oriented x3. NAD, on RA. HEENT: No pallor, no icterus. Pupils equal, round and reactive to light. Oral mucosa moist. NECK: No JVD, no neck masses. HEART: S1 and S2 heard. Regular rate and rhythm. Tachycardia. No murmur, no gallop. RESPIRATORY SYSTEM: Normal AP diameter. No accessory muscle use. No wheezing, no crackles. ABDOMEN: Soft, bowel sounds present, nontender, no distention. CENTRAL NERVOUS SYSTEM: No facial droop. Speech is clear. Obeys simple commands. Moves extremities. EXTREMITIES: No edema, no erythema seen. Results & Data Results & Data Vital Signs (Past 12 Hours) Vital Signs Temp Pulse Pulse Resp BP Pulse Ox O2 Del Method 08/17/23 14:53 68 08/17/23 14:48 36.9 C 77 18 105/73 95 Room Air 08/17/23 10:53 36.6 C 72 18 103/71 98 Room Air 08/17/23 07:42 75 08/17/23 07:33 36.4 C L 80 18 115/85 98 Room Air 08/17/23 04:00 O2 Del Method 08/17/23 14:53 08/17/23 14:48 08/17/23 10:53 08/17/23 07:42 08/17/23 07:33 08/17/23 04:00 Room Air
[2023-08-18] MEDS: MELATONIN 3 MG TAB PO PRN (00:21)
[2023-08-18] MEDS: hydrOXYzine HCl 25 MG TAB PO PRN ×2 (03:33→08:00)
--- NOTE | 2023-08-18 07:11 | Hospitalist Progress Note ---
Date of Service August 18, 2023 Assessment & Plan (1) Alcohol withdrawal: Plan 43-year-old lady with PMH of anxiety/mood disorder, fatty liver, alcohol abuse, ongoing vape use presented to the ED 08/13 with complaint of poor appetite/nausea/vomiting and wants to detox. Patient denied abdominal pain/black or bloody stool/hematemesis or coffee-ground emesis at presentation. 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 She is being managed for the following: #. Impending Alcohol withdrawal #. Alcohol intoxication Patient with history of alcohol abuse, has not been sober much per her since her last discharge Last drink 08/13 evening; drinks "many" shots of vodka a day. 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 Alcohol level 332 at presentation. Hemoconcentration noted at presentation, likely from dehydration. Continue with thiamine, folic acid. AWSS protocol and gabapentin taper. CM to assist w/ resources/rehab setup. Improving N, V and appetite. repleted electrolytes - magnesium today. Transaminitis:AST elevation, likely secondary to alcohol use. Follow LFT. overall Downtrending. Other chronic medical conditions:Continue with/resume home meds as and when able anxiety/mood disorder, at baseline. Continue with home dose of BuSpar DVT prophylaxis. Lovenox subcu Full code Patient's mother Ms. Jessenia Bauer, contact #[phone]. Admission and Anticipated Discharge Date Admission Date: August 14, 2023 Results & Data Results & Data Vital Signs (Past 12 Hours) Vital Signs Temp Pulse Pulse Resp BP Pulse Ox Pulse Ox 08/18/23 04:00 95 08/18/23 02:47 36.5 C 71 18 107/71 98 08/17/23 22:47 36.8 C 88 18 120/82 99 08/17/23 22:45 92 H 08/17/23 19:26 36.8 C 84 18 108/75 100 O2 Del Method O2 Del Method 08/18/23 04:00 Room Air 08/18/23 02:47 Room Air 08/17/23 22:47 Room Air 08/17/23 22:45 08/17/23 19:26 Room Air
[2023-08-18] MEDS: ACETAMINOPHEN 325 MG TAB PO PRN (08:02)
[2023-08-18] MEDS: ENOXAPARIN INJ 40 MG/0.4 ML SYR SQ SCH (08:04)
[2023-08-18] MEDS: FOLIC ACID 1 MG TAB PO SCH (08:05)
[2023-08-18] MEDS: THIAMINE HCL 100 MG TAB PO SCH (08:05)
[2023-08-18] MEDS: busPIRone 5 MG TAB PO SCH ×2 (08:05→13:45)
[2023-08-18] MEDS: MULTIVITAMIN TAB PO SCH (08:05)
[2023-08-18 08:15] LABS: Albumin Globulin Ratio 1.4 (0.9-2); Albumin Level 3.8 gm/dl (3.4-5.0); Bilirubin,Total 0.4 mg/dl (0.2-1.0); Calcium 9.5 mg/dl (8.6-10.3); Creatinine Clr Calc Pharmacy 116.2 ml/min; Est GFR (Non-African American) 116.5 ml/min; Globulin 2.8 gm/dl (2.5-4.0); Potassium 3.8 mmol/L (3.5-5.1); Total Protein 6.6 gm/dl (6.0-8.3)
[2023-08-18] MEDS ORDERED: LORazepam 1 MG TAB PO STA (10:32)
[2023-08-18] MEDS ORDERED: hydrOXYzine HCl 25 MG TAB PO PRN (10:40)
--- NOTE | 2023-08-18 12:27 | CT Scan Report ---
CT SCAN OF THE ABDOMEN AND PELVIS WITHOUT IV CONTRAST CLINICAL HISTORY: Generalized abdominal pain. Elevated hepatic transaminases COMPARISON STUDY: Abdominal radiographs dated 05/08/2017. Abdominal ultrasound dated 03/30/2017. TECHNIQUE: CT scan of the abdomen and pelvis is performed from the lung bases to the proximal femora. Images are reviewed in the axial, sagittal, and coronal planes. IV contrast was not administered for this examination. A dose lowering technique was utilized adhering to the principles of ALARA. CT DOSE: 551.4 mGy.cm FINDINGS: Lung bases: The heart is normal in size and without pericardial effusion. The lung bases are clear. Liver: The unenhanced liver is normal in size, contour, and attenuation. There is no intrahepatic britni iary ductal dilatation. Gallbladder: Contracted. Spleen: Normal in size and attenuation. Pancreas: Unremarkable. Adrenal glands: Unremarkable. Kidneys: The unenhanced kidneys are normal in size and without hydronephrosis. There are no renal kristi culi identified. There is no evidence of contour deforming renal mass lesion. Abdominal vasculature: The abdominal aorta is normal in course and caliber. Bowel: There is mild to moderate colonic fecal retention. No bowel obstruction is seen. The appendix is well-visualized and normal. Peritoneum: There is no intraperitoneal free air or abdominal ascites. There is a small fat-containin g umbilical hernia. Foci of induration within the ventral abdominal wall with foci soft tissue gas ar e likely related to subcutaneous injections. Lymphadenopathy: None. Pelvic viscera: The bladder is decompressed and not well evaluated. The uterus and adnexa are normal as visualized. Skeletal structures: No lytic or blastic lesions are seen. IMPRESSION: No acute infectious or inflammatory findings are identified in the abdomen or pelvis. ACT 112: Negative or not required by law. Electronically signed by: Konrad Acosta M.D. 08/18/2023 12:25 PM
[2023-08-18] MEDS ORDERED: TROLAMINE SALICYLATE 10% CRM 255 APPLN/85 GM TUBE EXT PRN (13:08)
--- NOTE | 2023-08-18 13:50 | Discharge Summary ---
Discharge Summary Date of Service August 18, 2023 Notes For Next Care Provider Repeat CMP in 1 week Medication Changes From Visit None Admission HPI Per Admitting Provider History obtained from patient and records. Medical history significant for anxiety/mood disorder, fatty liver as per records, chronic anemia (baseline hemoglobin of 11 ), alcohol abuse, ongoing vape use. Two admissions since April 2023 for alcohol withdrawal. Recent confinement last month. Patient discharged on gabapentin course. Patient started drinking again last week. Stressed out from breast biopsy results which later turned out to be negative. 3 days ago, patient noted flulike symptoms. Admits to sick contacts. Denies cough symptoms. Poor appetite. Achy headache symptoms, nausea, vomiting without abdominal pain. Patient consulted ER for worsening symptoms. Medical Historyas above Surgical History : Hand surgery, dental surgery, breast biopsy Family History : Alcoholism, A-fib, dementia Personal/Social history : Ongoing vape use, alcohol abuse, currently unemployed Admission Exam Per Admitting Provider GENERAL: Anxious, uncomfortable, tremulous, no respiratory distress SKIN: Pallor, warm HEENT: Pale palpebral conjunctivae, no ptosis, dry buccal mucosa NECK : Supple, no tenderness CHEST : CTA, no tenderness HEART : RRR, no obvious murmurs ABDOMEN: Some distention, nontender EXTREMITIES : No LE swelling/tenderness, no other conspicuous deformities noted NEUROLOGIC : Coherent, no facial asymmetry, tremulous, gait and stance not assessed Principal Dx & Hospital Course #1 = Principal Diagnosis (1) Alcohol withdrawal: #EtOH Withdrawal Patient with history of alcohol abuse, has not been sober much per her since her last discharge Last drink 08/13 evening; drinks "many" shots of vodka a day. 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 Alcohol level 332 at presentation. Completed gabapentin taper Continue home thiamine and folate Encouraged f/u with Psych, start naltrexone as directed #Transaminitis:AST elevation, likely secondary to alcohol use. Ct ABD without concerns of pancreatitis, fatty liver, gallbladder/ductal dilatation Lipase WNL Discussed close follow up with trending of LFTs given ongoing anxiety and worry about staying admitted Other chronic medical conditions:Continue with/resume home meds as and when able anxiety/mood disorder, at baseline. Continue with home dose of BuSpar On day of discharge, patient was eating well, not reuqiring any IV ativan (PO was 2/2 anxiety when informed of lfts and investigation to aid in ensuring safe as possible discharge) Discharge Exam Constitutional WD/WN, vitals as above Respiratory normal respiratory effort, lungs clear to auscultation Cardiovascular RRR, no murmur, no edema Gastrointestinal (Abdomen) normal bowel sounds, soft, nontender, no hepatosplenomegaly Updated Medication List Medication Instructions Recorded Confirmed Type acetaminophen 500 mg tablet 500 - 1,000 mg PO Q6H PRN Pain 08/14/23 08/14/23 History (Tylenol Extra Strength) albuterol sulfate 90 mcg/actuation 2 puff inhalation QID PRN 08/14/23 08/14/23 History aerosol inhaler (Ventolin HFA) Shortness Of Breath Or Wheezing amitriptyline 50 mg tablet 50 mg PO HS PRN Sleep 08/14/23 08/14/23 History buspirone 10 mg tablet 10 mg PO TID 08/14/23 08/14/23 History diclofenac sodium 1 % topical gel 1 ea topical DIRECTED PRN Pain 08/14/23 08/14/23 History folic acid 1 mg tablet 1 mg PO DAILY 08/14/23 08/14/23 History gabapentin 100 mg capsule 100 mg PO TID 08/14/23 08/14/23 History hydroxyzine pamoate 50 mg capsule 50 mg PO BID PRN Anxiety 08/14/23 08/14/23 History melatonin 10 mg tablet 10 mg PO HS 08/14/23 08/14/23 History naltrexone 50 mg tablet 25 - 50 mg PO DAILY 08/14/23 08/14/23 History ondansetron HCl 4 mg tablet 4 mg PO Q6 PRN Nausea 08/14/23 08/14/23 History valacyclovir 1 gram tablet 1 mg PO BID PRN Cold Sores 08/14/23 08/14/23 History Hospital Stay Data Consultations 08/13/23 23:14 ED Decision to Admit Stat Diagnostic Imagining Performed 08/13/23 23:45 CT head/brain wo con Stat 08/18/23 10:34 CT abd pelvis wo con Urgent Pending Results Patient Have Any Pending Studies at Discharge: No Discharge Instructions Given to Patient (Per Discharging Provider) You were admitted for ETOH withdrawal and completed a gabapentin taper. Your liver enzymes were elevated, which seems consistent with injury from alcohol use. We obtained a CT of your abdomen, and your liver and gall bladder look fine. Additionally, there were no signs of pancreatitis. Please keep up your oral intake of water/fluids. Please follow up with your primary care provider in 1-2 weeks with plans to discuss new lab work to follow up on your liver enzymes. Please continue all home medications as prescribed. Total Time Total Time Spent Total Time Spent (In Minutes): 45
== END 2023-08-18 17:15 | disposition home or self-care (01) | DRG 897 ==
LOC: ED 19:07 → SUATTDRO 08-14 04:10 → EDINP 08-14 04:10 → 2S 08-14 04:43

== ENCOUNTER 2024-01-06 13:21 | Inpatient (IN) ==
[2024-01-06 14:43] LABS: Basophils # (auto) 0.06 K/uL (0.00-0.20); Eosinophils # (auto) 0.12 K/uL (0.00-0.50); Hematocrit (blood only) 36.5 % (37.0-47.0); Hemoglobin 12.9 g/dl (12.0-16.0); Immature Granulocytes # (auto) 0.06 K/uL (0.01-0.20); Lymphocytes # (auto) 1.78 K/uL (1.20-3.40); Lymphocytes % (auto) 30.3 %; Mean Corpuscular Hemoglobin 35.5 pg (25.0-34.0); Mean Corpuscular Hgb Conc 35.3 g/dL (32.0-36.0); Mean Corpuscular Volume 100.6 fL (80.0-100.0); Mean Platelet Volume 9.3 fL (9.4-12.4); Monocytes # (auto) 0.45 K/uL (0.11-0.59); Monocytes % (auto) 7.7 %; Neutrophils # (auto) 3.41 K/uL (1.40-6.50); Platelet Count 191 K/uL (130-400); RDW Coefficient of Variation 14.6 % (11.5-14.5); RDW Standard Deviation 53.9 fL (36.4-46.3); Red Blood Count 3.63 M/uL (4.20-5.40); White Blood Count 5.88 K/ul (4.8-10.8)
[2024-01-06 15:10] LABS: Alanine Aminotransferase 47 U/L (7-52); Albumin Globulin Ratio 1.5 (0.9-2); Albumin Level 5.1 gm/dl (3.4-5.0); Alkaline Phosphatase 72 U/L (34-104); BUN Creatinine Ratio 14.3 (10-20); Bilirubin,Total 0.5 mg/dl (0.2-1.0); Blood Urea Nitrogen 9 mg/dl (6-23); Calcium 8.8 mg/dl (8.6-10.3); Carbon Dioxide 17 mmol/L (21-32); Chloride 96 mmol/L (98-107); Creatinine Clr Calc Pharmacy 101.3 ml/min; Est GFR (African American) 129.1 ml/min; Est GFR (Non-African American) 111.4 ml/min; Globulin 3.3 gm/dl (2.5-4.0); Glucose 72 mg/dl (70-99(Fasting)); Total Protein 8.4 gm/dl (6.0-8.3)
[2024-01-06 15:12] LABS: Thyroid Stimulating Hormone 0.961 uIu/ml (0.300-4.500)
[2024-01-06 15:22] LABS: Acetaminophen < 3 ug/ml (10-30); Salicylate < 3.0 mg/dl (3.0-30)
--- NOTE | 2024-01-06 15:28 | Emergency Department Note ---
Impression & Plan Alcoholic intoxication, Alcohol abuse, Contusion ED Provider Note Provider: Jeffrey No MD DATE OF SERVICE: 01/06/2024 CHIEF COMPLAINT: Alcohol abuse HISTORY OF PRESENT ILLNESS: Patient is a 43-year-old female history of alcohol abuse, ADD, and fatty liver presenting with mother today. Patient abdominal she has a history of alcoholism. States she is been drinking heavily recently and last drink was approximately 24 hours ago by her report. States she did fall on the stairs recently. Has some scattered bruises on her left arm as well as on her right knee and to her left forehead. Denies significant head pain or dizziness. Denies any difficulty breathing or chest pain. Denies abdominal pain. Denies drug use. Patient states she knows she has a problem with alcohol and wishes to go to rehab and to quit drinking. States in the past she has had some withdrawal and thinks he might have had a seizure about 6 weeks ago but she is unsure. Denies hallucinating currently. Does feel a bit shaky. Having a bit spasm in her right hand after the blood pressure cuff ran by her report. Drinking some water as well as significant mount of liquor recently but denies significant food intake. Denies to me any SI or HI but does endorse some anxiety and depression PAST MEDICAL HISTORY: As noted above MEDICATIONS: Reviewed home medications but has not taken in several days SOCIAL HISTORY: Vapes, heavy alcohol use, lives by herself with PHYSICAL EXAM: GENERAL: alert and oriented in no acute distress on stretcher with mother at bedside Head: normocephalic with a small approximately 2 cm partially healing contusion to the right lateral eyebrow. EYES: No injection, discharge or icterus. PERRL, EOMI. NECK: Trachea midline. Supple without significant midline tenderness ENT: Mucous membranes pink and moist. LUNGS: Airway patent. No retractions. Breath sounds clear with good air entry bilaterally. HEART: Regular tachycardic rate and rhythm. No chest wall tenderness ABDOMEN: Soft and non-tender, without guarding or rebound. No flank pain SKIN: Acyanotic, warm, dry, without rashes EXTREMITIES: Without swelling, tenderness or deformity NEUROLOGICAL: Moves all extremities no aphasia. No facial droop. Occasionally a little bit giddy and slurred speech slightly. Normal strength and tone in the extremities. Sensation to gross touch normal. EK bpm sinus tachycardia. No PVC or PAC. Nonspecific T wave inversions inferior and lateral with a QTc of 456. CONTINUOUS CARDIAC MONITORING: was ordered and showed a heart rate of 90s-120s bpm in normal sinus rhythm to sinus tachycardia GCS 15 Patient's laboratory studies and imaging reviewed. Differential includes Mood disorder, infection, hypoglycemia, electrolyte abnormalities, cardiac sources, intracerebral event, toxicologic, trauma, neurologic, as well as other pathologies. IMPRESSION/MEDICAL DECISION MAKING: Patient utilizing nicotine vape upon entering the room. Informed patient she cannot do that here in the hospital. Nicotine patch ordered. Patient put it away. Patient bit giddy and laughing at times but does answer most questions. States she did trip and fall down her stairs recently. On a get exact timeframe but does have some few scattered bruises. Discussion with patient and mother was agreeable for head CT. Do not believe any initially other imaging at this time. No other significant bony or point tenderness noted. Blood work obtained. Given some B vitamins for supplementation given her significant alcohol usage. Blood work obtained without significant cytosis or anemia. Platelet count normal. No signs of significant acute renal dysfunction. Salicylate and acetaminophen levels low but alcohol severely elevated 416. Again reports that she has not had a drink in almost 24 hours unsure if this is true or not. This may be indicative of a much higher alcohol level earlier. Chest x-ray without significant findings per radiology. CT of the head per radiology without acute intracranial abnormality or fracture. TSH normal. Some anion gap. Likely alcoholic ketosis. Receiving fluid hydration. Patient is agreeable for inpatient rehab. Denies SI or HI. Discussed with her and mother will need to be in the hospital for monitoring given her severe alcohol intoxication. No believe she is acutely in withdrawal at this time but will continue to monitor as withdrawal likely start. Case management did discuss alcohol support services with patient and family briefly while here. Repeat sodium and potassium levels hemolyzed and recollect pending at time of admission. DIAGNOSIS: Alcohol intoxication, falls DISPOSITION: Hospitalist will evaluate Patient was agreeable with this plan. Past Med/Surg History Medical History (Updated 01/06/24 @ 16:45 by Jeffrey No M.D.) Intractable nausea and vomiting Alcohol withdrawal Abnormal uterine bleeding ADD (attention deficit disorder) Insomnia Restless leg Depression Anxiety Alcohol dependence Fatty liver Anxiety and depression Surgical History (Updated 09/18/23 @ 00:08 by Adrián Denson S/P nasal surgery septoplasty and rhinoplasty-both w/Dr. Castañeda H/O wisdom tooth extraction Family History Aunt Breast cancer, Onset Age: 65 paternal Asthma maternal Grandfather (Paternal) Prostate cancer Aunt Allergies maternal Family/Other Allergies cousins Asthma cousins Other No family history of adverse response to anesthesia No family history of bleeding disorder Denies family history of Ovarian cancer Colorectal cancer Social History Smoking Status: Current every day smoker Tobacco Type: E-cigarettes / Vaping Age Started Using Tobacco: 20; packs per day: 0.5; Second Hand Exposure: No; Do You Dip or Chew Tobacco: No; Hx Alcohol Use: Yes Hx Substance Use: No Preferred Language: Turkish 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 Ability: Effective News Agent Required: No Beliefs That Will Affect Care: None marital status: Single Current Living Situation: Alone Current Living Situation Comment: UNABLE TO ASSESS Feels Safe at Home: Yes Assistive Devices: None Allergies Allergies Allergy/AdvReac Type Severity Reaction Status Date / Time nickel Allergy Rash Verified 01/06/24 16:22 Home Meds Home Medications Medication Instructions Recorded Confirmed acetaminophen 500 mg tablet 500 - 1,000 mg PO Q6H PRN Pain 08/14/23 01/06/24 (Tylenol Extra Strength) albuterol sulfate 90 mcg/actuation 2 puff inhalation QID PRN 08/14/23 01/06/24 aerosol inhaler (Ventolin HFA) Shortness Of Breath Or Wheezing amitriptyline 50 mg tablet 25 - 50 mg PO HS PRN Sleep 08/14/23 01/06/24 buspirone 10 mg tablet 10 mg PO TID 08/14/23 01/06/24 folic acid 1 mg tablet 1 mg PO DAILY 08/14/23 01/06/24 hydroxyzine pamoate 50 mg capsule 50 mg PO BID PRN Anxiety 08/14/23 01/06/24 ondansetron HCl 4 mg tablet 4 mg PO Q6 PRN Nausea 08/14/23 01/06/24 valacyclovir 1 gram tablet 1 mg PO BID PRN Cold Sores 08/14/23 01/06/24 dextroamphetamine-amphetamine 20 20 mg PO BID 01/06/24 01/06/24 mg tablet gabapentin 300 mg capsule 300 mg PO TID 01/06/24 01/06/24 thiamine HCl (vitamin B1) 100 mg 100 mg PO DAILY 01/06/24 01/06/24 tablet Results & Data (ED) Vital Signs Vital Signs - 24 hr 01/06/24 13:38 01/06/24 14:35 01/06/24 14:40 Temperature 36.4 C L Temperature Source Temporal Artery Scan Pulse Rate 121 H 108 H 114 H Pulse Rate [Left] Pulse Rate from SpO2 Sensor 106 H 114 H Pulse Rhythm Regular Pulse Rhythm [Left] Pulse Strength Normal Pulse Strength [Left] Respiratory Rate 18 16 15 Respiratory Effort / Characteristics Non-Labored Spontaneous Respiratory Depth Normal Respiratory Pattern Regular Blood Pressure 133/81 Blood Pressure [Left Arm] Blood Pressure Mean 98 Blood Pressure Mean [Left Arm] Blood Pressure Position Sitting Blood Pressure Position [Left Arm] Pulse Oximetry 96 96 97 Oxygen Delivery Method Room Air Sepsis Recent Fever Within 48 Hours No Sepsis New/Unexplained Change in Mental Status No Sepsis Action Taken by Nursing No Action Required 01/06/24 14:42 01/06/24 14:45 01/06/24 14:45 Temperature 36.8 C Temperature Source Oral Pulse Rate 103 H Pulse Rate [Left] 110 H Pulse Rate from SpO2 Sensor 102 H Pulse Rhythm Pulse Rhythm [Left] Regular Pulse Strength Pulse Strength [Left] Respiratory Rate 18 17 Respiratory Effort / Characteristics Non-Labored Respiratory Depth Normal Respiratory Pattern Regular Blood Pressure 113/84 Blood Pressure [Left Arm] 123/88 Blood Pressure Mean 103 Blood Pressure Mean [Left Arm] 99 Blood Pressure Position Blood Pressure Position [Left Arm] Sitting Pulse Oximetry 98 98 Oxygen Delivery Method Room Air Sepsis Recent Fever Within 48 Hours Sepsis New/Unexplained Change in Mental Status Sepsis Action Taken by Nursing 01/06/24 14:46 01/06/24 14:47 01/06/24 14:50 Temperature 36.4 C L Temperature Source Oral Pulse Rate 104 H 117 H Pulse Rate [Left] 99 H Pulse Rate from SpO2 Sensor 118 H Pulse Rhythm Pulse Rhythm [Left] Regular Pulse Strength Pulse Strength [Left] Normal Respiratory Rate 14 14 Respiratory Effort / Characteristics Non-Labored Respiratory Depth Normal Respiratory Pattern Regular Blood Pressure Blood Pressure [Left Arm] 113/84 Blood Pressure Mean Blood Pressure Mean [Left Arm] 93 Blood Pressure Position Blood Pressure Position [Left Arm] Sitting Pulse Oximetry 98 96 Oxygen Delivery Method Room Air Sepsis Recent Fever Within 48 Hours Sepsis New/Unexplained Change in Mental Status Sepsis Action Taken by Nursing 01/06/24 15:00 01/06/24 15:01 01/06/24 15:01 Temperature Temperature Source Pulse Rate 118 H 102 H Pulse Rate [Left] Pulse Rate from SpO2 Sensor 116 H 104 H Pulse Rhythm Pulse Rhythm [Left] Pulse Strength Pulse Strength [Left] Respiratory Rate 15 15 Respiratory Effort / Characteristics Respiratory Depth Respiratory Pattern Blood Pressure Blood Pressure [Left Arm] Blood Pressure Mean 111 Blood Pressure Mean [Left Arm] Blood Pressure Position Blood Pressure Position [Left Arm] Pulse Oximetry 93 98 Oxygen Delivery Method Sepsis Recent Fever Within 48 Hours Sepsis New/Unexplained Change in Mental Status Sepsis Action Taken by Nursing 01/06/24 15:10 01/06/24 15:20 01/06/24 15:30 Temperature Temperature Source Pulse Rate 106 H 101 H 106 H Pulse Rate [Left] Pulse Rate from SpO2 Sensor 107 H 102 H 107 H Pulse Rhythm Pulse Rhythm [Left] Pulse Strength Pulse Strength [Left] Respiratory Rate 14 18 15 Respiratory Effort / Characteristics Respiratory Depth Respiratory Pattern Blood Pressure Blood Pressure [Left Arm] Blood Pressure Mean Blood Pressure Mean [Left Arm] Blood Pressure Position Blood Pressure Position [Left Arm] Pulse Oximetry 96 98 98 Oxygen Delivery Method Sepsis Recent Fever Within 48 Hours Sepsis New/Unexplained Change in Mental Status Sepsis Action Taken by Nursing 01/06/24 15:32 01/06/24 15:32 Temperature Temperature Source Pulse Rate 111 H Pulse Rate [Left] Pulse Rate from SpO2 Sensor 104 H Pulse Rhythm Pulse Rhythm [Left] Pulse Strength Pulse Strength [Left] Respiratory Rate 16 Respiratory Effort / Characteristics Respiratory Depth Respiratory Pattern Blood Pressure 116/82 Blood Pressure [Left Arm] Blood Pressure Mean 91 Blood Pressure Mean [Left Arm] Blood Pressure Position Blood Pressure Position [Left Arm] Pulse Oximetry 98 Oxygen Delivery Method Sepsis Recent Fever Within 48 Hours Sepsis New/Unexplained Change in Mental Status Sepsis Action Taken by Nursing Laboratory Data 01/06/24 14:00 01/06/24 15:30 Lab Results 01/06/24 01/06/24 Range/Units 14:00 15:30 WBC 5.88 (4.8-10.8) K/ul RBC 3.63 L (4.20-5.40) M/uL Hgb 12.9 (12.0-16.0) g/dl Hct 36.5 L (37.0-47.0) % MCV 100.6 H (80.0-100.0) fL MCH 35.5 H (25.0-34.0) pg MCHC 35.3 (32.0-36.0) g/dL RDW Std Deviation 53.9 H (36.4-46.3) fL RDW Coeff of Edgar 14.6 H (11.5-14.5) % Plt Count 191 (130-400) K/uL MPV 9.3 L (9.4-12.4) fL Immature Gran % (Auto) 1.0 % Neut % (Auto) 58.0 % Lymph % (Auto) 30.3 % Todd % (Auto) 7.7 % Eos % (Auto) 2.0 % Baso % (Auto) 1.0 % Neut # (Auto) 3.41 (1.40-6.50) K/uL Lymph # (Auto) 1.78 (1.20-3.40) K/uL Todd # (Auto) 0.45 (0.11-0.59) K/uL Eos # (Auto) 0.12 (0.00-0.50) K/uL Baso # (Auto) 0.06 (0.00-0.20) K/uL Immature Gran # (Auto) 0.06 (0.01-0.20) K/uL PT 10.8 (9.0-12.0) Seconds INR 1.0 (0.9-1.1) Sodium TNP TNP Potassium TNP TNP Chloride 96 L (98-107) mmol/L Carbon Dioxide 17 L (21-32) mmol/L Anion Gap TNP BUN 9 (6-23) mg/dl Creatinine 0.63 (0.6-1.2) mg/dl Est Cr Clr Drug Dosing 101.3 ml/min Est GFR ( Amer) 129.1 ml/min Est GFR (Non-Af Amer) 111.4 ml/min BUN/Creatinine Ratio 14.3 (10-20) Glucose 72 (70-99(Fasting)) mg/dl Calcium 8.8 (8.6-10.3) mg/dl Total Bilirubin 0.5 (0.2-1.0) mg/dl AST TNP TNP ALT 47 (7-52) U/L Alkaline Phosphatase 72 (34-104) U/L Total Protein 8.4 H (6.0-8.3) gm/dl Albumin 5.1 H (3.4-5.0) gm/dl Globulin 3.3 (2.5-4.0) gm/dl Albumin/Globulin Ratio 1.5 (0.9-2) TSH 0.961 (0.300-4.500) uIu/ml Salicylates < 3.0 L (3.0-30) mg/dl Acetaminophen < 3 L (10-30) ug/ml Ethyl Alcohol mg/dL 416.6 H (<10.0) mg/dl Administered Medications Multivitamins 10 ml/ Thiamine HCl 100 mg/ Folic Acid 1 mg/Sodium Chloride 1,011.2 mls @ 500 mls/hr IV .Q2H2M ONE Stop: 01/06/24 17:27 Last Admin: 01/06/24 16:29 Dose: 500 mls/hr Documented By: MOI Nicotine (Nicotine 21 Mg/24 Hr Tdsy) 21 mg TD QAM TIN Stop: 02/05/24 15:29 Last Admin: 01/06/24 15:48 Dose: 21 mg Documented By: MOI Discontinued Medications Multivitamins/Minerals (Cerovite Adv Formula Tab) 1 tab PO ONCE ONE Stop: 01/06/24 15:27 Last Admin: 01/06/24 15:48 Dose: 1 tab Documented By: MOI Imaging Data Radiologist's Impression: Head CT 01/06/24 15:26 CT head/brain wo con CLINICAL HISTORY: 43 years-old Female with falls, etoh, forehead contusion. Acute head trauma status post fall TECHNIQUE: Multiple axial CT images of the head were obtained without contrast. A dose lowering technique was utilized adhering to the principles of ALARA. CT DOSE: 547.75 mGy.cm COMPARISON: 08/14/2023 FINDINGS: No acute intracranial hemorrhage, midline shift, intracranial mass, hydrocephalus, territorial ischemia or abnormal extra-axial collection. The calvarium is intact. The paranasal sinuses, mastoid air cells, and middle ear cavities are clear. IMPRESSION: No acute intracranial abnormality. ACT 112: Negative or not required by law. The above report was generated using voice recognition software. It may contain grammatical, syntax or spelling errors. Electronically signed by: Rob Payne M.D. 01/06/2024 4:00 PM Discharge Plan Visit Data Chief Complaint: Detox Request Stated Complaint: ALCOHOLISM, NOT TAKING TAKE CARE OF HERSELF ED Provider: Jeffrey No Discharge Problem: Alcoholic intoxication, Alcohol abuse, Contusion Patient Disposition: Being Evaluated by Hospitalist Forms Stand Alone Forms: [facility], Suicide Prevention Resources Prescriptions Prescriptions: No Action valacyclovir 1 gram tablet 1 mg PO BID PRN (Reason: Cold Sores) ondansetron HCl 4 mg tablet 4 mg PO Q6 PRN (Reason: Nausea) hydroxyzine pamoate 50 mg capsule 50 mg PO BID PRN (Reason: Anxiety) Rx Instructions: PER EXT MED HX--BID PRN, PER [facility]--25 MG Q6H PRN. amitriptyline 50 mg tablet 25 - 50 mg PO HS PRN (Reason: Sleep) acetaminophen [Tylenol Extra Strength] 500 mg Tablet 500 - 1,000 mg PO Q6H PRN (Reason: Pain) buspirone 10 mg tablet 10 mg PO TID folic acid 1 mg Tablet 1 mg PO DAILY albuterol sulfate [Ventolin HFA] 90 mcg/actuation Hfa Aerosol Inhaler 2 puff INHALATION QID PRN (Reason: Shortness Of Breath Or Wheezing) thiamine HCl (vitamin B1) 100 mg Tablet 100 mg PO DAILY dextroamphetamine-amphetamine 20 mg tablet 20 mg PO BID gabapentin 300 mg capsule 300 mg PO TID Referrals Referrals: Aj Gaston MD [Primary Care Provider] - Discharge Problem: Alcoholic intoxication Qualifiers: Complication of substance-induced condition: uncomplicated Qualified Code(s): F 10.920 - Alcohol use, unspecified with intoxication, uncomplicated
[2024-01-06] MEDS: NICOTINE 21 MG/24 HR TDSY TD SCH (15:48)
[2024-01-06] MEDS: CEROVITE ADV FORMULA TAB PO ONE (15:48)
--- NOTE | 2024-01-06 16:01 | CT Scan Report ---
CT head/brain wo con CLINICAL HISTORY: 43 years-old Female with falls, etoh, forehead contusion. Acute head trauma status post fall TECHNIQUE: Multiple axial CT images of the head were obtained without contrast. A dose lowering tech nique was utilized adhering to the principles of ALARA. CT DOSE: 547.75 mGy.cm COMPARISON: 08/14/2023 FINDINGS: No acute intracranial hemorrhage, midline shift, intracranial mass, hydrocephalus, territorial ischem ia or abnormal extra-axial collection. The calvarium is intact. The paranasal sinuses, mastoid air cells, and middle ear cavities are clear . IMPRESSION: No acute intracranial abnormality. ACT 112: Negative or not required by law. The above report was generated using voice recognition software. It may contain grammatical, syntax o r spelling errors. Electronically signed by: Rob Payne M.D. 01/06/2024 4:00 PM
[2024-01-06 16:11] LABS: Prothrombin Time 10.8 Seconds (9.0-12.0)
[2024-01-06] MEDS: MULTI-VITAMIN INFUSION 10 ML, THIAMINE HCL 100 MG, FOLIC ACID 1 MG in SODIUM CHLORIDE 0... IV ONE (16:29)
--- NOTE | 2024-01-06 16:48 | History & Physical Report ---
Date of Service January 06, 2024 Assessment & Plan (1) Alcohol dependence: (2) Alcoholic intoxication: (3) Anxiety and depression: (4) ADD (attention deficit disorder): (5) Contusion: (6) Tobacco use disorder: Plan This is a 43yo F with PMH of alcohol use disorder, Tobacco use disorder, migraine headaches, anxiety and depression and other medical problems listed below who presents with request for alcohol detox. Alcohol use disorder Alcohol withdrawal History of alcohol use disorder with multiple hospitalization in the past Blood alcohol level of 400s on admission Started on IV banana bag in ED AWSS per protocol Gabapentin taper, Valium 5mg Q6H for withdrawal symptoms/anxiety with PRN IV ativan as needed Seizure precautions IV thiamine 250 mg every 8 hours Chronic conditions; Mood disorderon buspirone, amitriptyline and hydroxyzine continue DVT prophylaxis SCDs Full code Care coordinated with Dr. Porter. Please see addendum. I spent a total of 55 minutes coordinating, documenting, and providing care for this patient excluding time spent in the performance of separately billed services. History of Present Illness Chief Complaint: etoh detox Primary Care Provider: Aj Gaston MD This is a 43yo F with PMH of alcohol use disorder, Tobacco use disorder, m igraine headaches, anxiety and depression and other medical problems listed below who presents with request for alcohol detox. Per chart review, patient with worsening depression over the past few months with difficulty completing ADLs. Lives alone but mom Jessenia is involved at at bedside. Endorses significant alcohol use recently. Agreeable to rehab after detox. Does endorse a fall on the stairs earlier this week with some bruising on arm, forehead and knee. States she has not had a drink in over 24 hours with alcohol level of 416 on admission. Usually drinks at least 10 shots of vodka a day. Possible seizure in withdrawal setting before a few months ago but does not remember the details. Has gone to rehab before and was No F/C, lightheadedness, CP, SOB, N/V, abd pain, dysuria, diarrhea or constipation. Feels cold and starting to have tremors. Denies hallucinations. Allergies Allergy/AdvReac Type Severity Reaction Status Date / Time nickel Allergy Rash Verified 01/06/24 16:22 Home Medications Medication Instructions Recorded Confirmed Type acetaminophen 500 mg tablet 500 - 1,000 mg PO Q6H PRN Pain 11/18/23 04/11/24 History (Tylenol Extra Strength) albuterol sulfate 90 mcg/actuation 2 puff inhalation QID PRN 08/14/23 01/06/24 History aerosol inhaler (Ventolin HFA) Shortness Of Breath Or Wheezing amitriptyline 50 mg tablet 25 mg PO HS PRN Sleep 08/14/23 01/06/24 History buspirone 10 mg tablet 10 mg PO TID PRN Anxiety 08/14/23 01/06/24 History folic acid 1 mg tablet 1 mg PO DAILY 08/14/23 01/06/24 History hydroxyzine pamoate 50 mg capsule 50 mg PO BID PRN Anxiety 08/14/23 01/06/24 History ondansetron HCl 4 mg tablet 4 mg PO Q6 PRN Nausea 08/14/23 01/06/24 History valacyclovir 1 gram tablet 1 mg PO BID PRN Cold Sores 08/14/23 01/06/24 History dextroamphetamine-amphetamine 20 20 mg PO TID 01/06/24 01/06/24 History mg tablet gabapentin 300 mg capsule 300 mg PO TID 01/06/24 01/06/24 History thiamine HCl (vitamin B1) 100 mg 100 mg PO DAILY 01/06/24 01/06/24 History tablet Past Med/Surg History Medical History Intractable nausea and vomiting Alcohol withdrawal Abnormal uterine bleeding ADD (attention deficit disorder) Insomnia Restless leg Depression Anxiety Alcohol dependence Fatty liver Anxiety and depression Surgical History S/P nasal surgery septoplasty and rhinoplasty-both w/Dr. Castañeda H/O wisdom tooth extraction Family History Aunt Breast cancer, Onset Age: 65 paternal Asthma maternal Grandfather (Paternal) Prostate cancer Aunt Allergies maternal Family/Other Allergies cousins Asthma cousins Other No family history of adverse response to anesthesia No family history of bleeding disorder Denies family history of Ovarian cancer Colorectal cancer Social History Smoking Status: Current every day smoker Tobacco Type: E-cigarettes / Vaping Age Started Using Tobacco: 20; packs per day: 0.5; Second Hand Exposure: No; Do You Dip or Chew Tobacco: No; Hx Alcohol Use: Yes Hx Substance Use: No Preferred Language: Faroese 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 Ability: Effective Boiler Technician Required: No Beliefs That Will Affect Care: None marital status: Single Current Living Situation: Alone Feels Safe at Home: Yes Assistive Devices: None Review of Systems Review of Systems: At least ten systems reviewed and negative except as noted in the HPI. Physical Exam Physical Exam: Please see Dr. Porter's addendum for physical exam. Results & Data Results & Data Vital Signs (Past 12 Hours) Vital Signs Temp Pulse Pulse Resp BP BP Pulse Ox 01/06/24 15:32 116/82 01/06/24 15:32 111 H 16 98 01/06/24 15:30 106 H 15 98 01/06/24 15:20 101 H 18 98 01/06/24 15:10 106 H 14 96 01/06/24 15:01 102 H 15 98 01/06/24 15:00 118 H 15 93 01/06/24 14:50 117 H 14 96 01/06/24 14:47 104 H 01/06/24 14:46 36.4 C L 99 H 14 113/84 98 01/06/24 14:45 103 H 17 98 01/06/24 14:45 113/84 01/06/24 14:42 36.8 C 110 H 18 123/88 98 01/06/24 14:40 114 H 15 97 01/06/24 14:35 108 H 16 96 01/06/24 13:38 36.4 C L 121 H 18 133/81 96 O2 Del Method 01/06/24 15:32 01/06/24 15:32 01/06/24 15:30 01/06/24 15:20 01/06/24 15:10 01/06/24 15:01 01/06/24 15:00 01/06/24 14:50 01/06/24 14:47 01/06/24 14:46 Room Air 01/06/24 14:45 01/06/24 14:45 01/06/24 14:42 Room Air 01/06/24 14:40 01/06/24 14:35 01/06/24 13:38 Room Air Laboratory Results Short CBC 01/06/24 Range/Units 14:00 WBC 5.88 (4.8-10.8) K/ul Hgb 12.9 (12.0-16.0) g/dl Hct 36.5 L (37.0-47.0) % Plt Count 191 (130-400) K/uL BMP 01/06/24 01/06/24 14:00 15:30 Sodium TNP TNP Potassium TNP TNP Chloride 96 L Carbon Dioxide 17 L BUN 9 Creatinine 0.63 Glucose 72 Calcium 8.8 Liver Function 01/06/24 01/06/24 Range/Units 14:00 15:30 Total Bilirubin 0.5 (0.2-1.0) mg/dl AST TNP TNP ALT 47 (7-52) U/L Alkaline Phosphatase 72 (34-104) U/L Albumin 5.1 H (3.4-5.0) gm/dl Diagnostic Findings Head CT 01/06/24 15:26 CT head/brain wo con CLINICAL HISTORY: 43 years-old Female with falls, etoh, forehead contusion. Acute head trauma status post fall TECHNIQUE: Multiple axial CT images of the head were obtained without contrast. A dose lowering technique was utilized adhering to the principles of ALARA. CT DOSE: 547.75 mGy.cm COMPARISON: 08/14/2023 FINDINGS: No acute intracranial hemorrhage, midline shift, intracranial mass, hydrocephalus, territorial ischemia or abnormal extra-axial collection. The calvarium is intact. The paranasal sinuses, mastoid air cells, and middle ear cavities are clear. IMPRESSION: No acute intracranial abnormality. ACT 112: Negative or not required by law. The above report was generated using voice recognition software. It may contain grammatical, syntax or spelling errors. Electronically signed by: Rob Payne M.D. 01/06/2024 4:00 PM ECG Additional Comments: EKG reviewed - showing 125 bpm sinus tachycardia. No PVC or PAC. Nonspecific TWO, QTc of 456 Supervising Physician Co-Signing Physician Notes Patient seen and examined independently. Discussed with above provider. Patient presents for detox request. History of alcohol use disorder On oral Valium scheduled, as needed Ativan and gabapentin On physical examination: Constitutional: Alert oriented x 3; tremulous. Bruise present on right forehead Respiratory: Bilateral basilar breath Cardiovascular: RRR, no murmur, no edema Vessels: no JVD or carotid bruit Chest: normal inspection of chest Abdomen: normal bowel sounds, soft, nontender, no hepatosplenomegaly Musculoskeletal: no cyanosis or clubbing, extremities motor strength 5/5. Bruise present on left arm Skin: no rashes, warm and dry normal turgor Neurologic: PERRL, EOMI, accommodation nl, no face palsy, no dysarthria CN's II- XI intact bilaterally and moves all extremities Psychiatric: A+Ox3, euthymic affect I have reviewed the advanced practitioner's documentation, and I agree with, and take responsibility for the plan of care I spent a total of 30 minutes coordinating, documenting, and providing care for this patient excluding time spent in the performance of separately billed services. All of the aforementioned completed while collaborating with the assigned advanced practitioner for a full treatment plan Please note the above document was generated using voice recognition software. It may contain grammatical, syntax or spelling errors. Any formal questions or concerns about the content, text or information contained within the body of this dictation should be directly addressed to the provider for clarification (2) Alcoholic intoxication Complication of substance-induced condition: uncomplicated Qualified Code(s): F10.920 - Alcohol use, unspecified with intoxication, uncomplicated
[2024-01-06 17:15] LABS: Potassium 3.9 mmol/L (3.5-5.1)
[2024-01-06] MEDS: diazePAM 5 MG TABLET PO SCH (18:24)
[2024-01-06] MEDS: SODIUM CHLORIDE 0.9% 1,000 ML IV SCH (18:38)
[2024-01-06] MEDS: GABAPENTIN 600 MG TAB PO STA (18:50)
[2024-01-06] MEDS ORDERED: GABAPENTIN 1200MG ALCOHOL WITHDRAWAL LOAD PO STA (19:42)
[2024-01-06] MEDS ORDERED: POLYETHYLENE (MIRALAX) 17 GM PACK PO PRN (19:42)
[2024-01-06] MEDS ORDERED: ALBUTEROL HFA 8 GM INHALER INH PRN (19:42)
[2024-01-06] MEDS ORDERED: GABAPENTIN 600 MG TAB PO ONE (19:42)
[2024-01-06] MEDS: LORazepam 1 MG/1 ML SYR ED Inj Use ONE (19:59)
[2024-01-06] MEDS: LORazepam 1 MG in SYRINGE 0.5 ML IV PRN (20:01)
[2024-01-06] MEDS: DEXTROAMPHETAMINE/AMPHETAMINE IR 20 MG TAB PO SCH (20:37)
[2024-01-06] MEDS: THIAMINE HCL 250 MG in SODIUM CHLORIDE 0.9% 50 ML IV SCH (21:21)
[2024-01-06] MEDS: hydrOXYzine HCl 25 MG TAB PO PRN (22:26)
[2024-01-06] MEDS: GABAPENTIN 600 MG TAB PO SCH (23:14)
[2024-01-06 23:24] LABS: Amphetamines+Metham, Urine Neg (Neg); Barbiturates, Urine Neg (Neg); Benzodiazepine, Urine Neg (Neg); Cocaine, Urine Neg (Neg); MDMA (Ecstacy), Urine Neg (Neg); Marijuana, Urine Neg (Neg); Methadone, Urine Neg (Neg); Opiate, Urine Neg (Neg); Phencyclidine, Urine Neg (Neg)
[2024-01-06 23:31] LABS: Appearance Urine Cloudy (Clear); Bacteria Urine Automated 3+ (None Seen); Bilirubin Urine Negative (Negative); Blood Urine Negative (Negative); Cast Urine Automated 0-2 /lpf (0-2); Color Urine Yellow; Glucose Urine UA Negative (Negative); Ketones Urine 3+ (Negative); Leukocyte Esterase Urine 2+ (Negative); Nitrite Urine Negative (Negative); Protein Urine Trace (Negative); RBC Urine Automated 0-2 /hpf (0-2); Urobilinogen Urine Negative (Negative); WBC Urine Automated 21-50 /hpf (0-5); pH Urine 5.5 (4.5-7.5)
[2024-01-07] MEDS: busPIRone 5 MG TAB PO PRN (01:23)
[2024-01-07] MEDS: ACETAMINOPHEN 325 MG TAB PO PRN (05:54)
[2024-01-07 06:24] LABS: Hematocrit (blood only) 29.1 % (37.0-47.0); Hemoglobin 10.4 g/dl (12.0-16.0); Mean Corpuscular Hemoglobin 35.1 pg (25.0-34.0); Mean Corpuscular Hgb Conc 35.7 g/dL (32.0-36.0); Mean Corpuscular Volume 98.3 fL (80.0-100.0); Mean Platelet Volume 9.5 fL (9.4-12.4); Platelet Count 117 K/uL (130-400); RDW Coefficient of Variation 14.4 % (11.5-14.5); RDW Standard Deviation 52.4 fL (36.4-46.3); Red Blood Count 2.96 M/uL (4.20-5.40); White Blood Count 4.14 K/ul (4.8-10.8)
[2024-01-07] MEDS ORDERED: POTASSIUM PHOS 3 MMOL/1 ML INFUSION IV STA ×2 (07:35→13:16)
[2024-01-07] MEDS: ONDANSETRON INJ 2 MG/ML 2 ML VIAL IV PRN (07:50)
[2024-01-07] MEDS: FOLIC ACID 1 MG TAB PO SCH (07:51)
[2024-01-07] MEDS ORDERED: FOLIC ACID 1 MG TAB PO SCH (09:00)
[2024-01-07 09:08] LABS: Albumin Globulin Ratio 1.7 (0.9-2); Albumin Level 3.7 gm/dl (3.4-5.0); BUN Creatinine Ratio 9.4 (10-20); Bilirubin,Total 0.8 mg/dl (0.2-1.0); Creatinine Clr Calc Pharmacy 120.6 ml/min; Est GFR (African American) 136.7 ml/min; Est GFR (Non-African American) 117.9 ml/min; Globulin 2.2 gm/dl (2.5-4.0); Magnesium 1.3 mg/dl (1.7-2.4); Phosphorus 1.4 mg/dl (2.5-4.9); Potassium 3.3 mmol/L (3.5-5.1); Total Protein 5.9 gm/dl (6.0-8.3)
[2024-01-07] MEDS: diazePAM 5 MG TABLET PO SCH (11:37)
--- OUTSIDE RECORDS SUMMARY | 2024-01-07 12:24 | External Medical Summary | Summary of Care ---
Author Name Unknown Organization [facility] Address [address] [place] [address] Phone [phone] Care Team Providers Care Research Investigator Name Role Phone Marilin MICHAELS MD, Aj Westfall Primary Care Provider [phone] Reason for Visit * Reason Onset Date Comments Medical Records Request 10/01/2023 Encounter Details Date Type Department Care Team (Late st Contact Info) Description 10/01/2023 Telephone Family Practice [facility] [address] [facility] [place] [address] Aj Gaston III, MD [address] [place] [address] Medical Records Request Allergies Active Allergy Reactions Criticality Noted Date Comments Nickel Rash 06/01/2018 documented as of this encounter (statuses as of 10/01/2023) Medications Medication Sig Dispensed Refills Start Date [...] Active Gabapentin 300 MG Oral Capsule (Neurontin) 3x daily 90 Capsule 3 09/21/2023 Active documented as of this encounter (statuses as of 10/01/2023) Active Problems Problem Noted Date Diagnosed Date Major depressive disorder, recurrent episode, mo derate 11/15/2018 Depression with anxiety 10/19/2016 Malaise and fatigue 08/18/2010 Tobacco use disorder 11/02/2007 Elevated liver enzymes Migraine Insomnia documented as of this encounter (statuses as of 10/01/2023) Resolved Problems Problem Noted Date Diagnosed Date Resolved Date Alcohol abuse, in remission 04/24/2023 04/24/2023 Routine medical exam 08/18/2010 018 documented as of this encounter (statuses as of 10/01/2023) Immunizations Name Administration Dates Next Due Covid-19, [...] Recorded PHQ Adult Total Score 7 07/28/2023 Hunger Vital Sign Answer Date Recorded Within the past 12 months, y ou worried that your food would run out before you got the money to buy more. Never true 07/13/20 23 Within the past 12 months, t he food you bought just didn't last and you didn't have money to get more. Never true 07/13/2023 Sex and Gender Information Value Date Recorded Sex Assigned at Not on file Gender Identity Not on file Sexual Orientation Not on file Job Start Date Occupation Industry Not on file Not on file Not on file documented as of this encounter Miscellaneous Notes * Telephone Encounter - Werner Ag OSA - 10/01/2023 1:31 PM EST Medical records Request from [facility] Medical Records Request forwarded to / documented in this encounter Plan of Treatment Upcoming Encounters Date Type Department Care Team (Late st Contact Info) Description 11/24/2023 1:40 PM EST Office Visit Family Practice [facility] [address] [place] [address] Aj Gaston III, MD [address] [facility] [place] [address] Health Maintenance Due Date Last Done Comments [...] filedocumented as of this encounter Care Teams Research Investigator Relationship Specialty Start Date End Date Aj Gaston III, MD [address] [place] [address] PCP - General Family Medicine 05/12/23 documented as of this encounter
--- OUTSIDE RECORDS SUMMARY | 2024-01-07 12:24 | External Medical Summary | Summary of Care ---
Author Name Unknown Organization [facility] Address [address] [place] [address] Phone [phone] Care Team Providers Care Embossograph Operator Name Role Phone Marilin MICHAELS MD, Aj Westfall Primary Care Provider [phone] Encounter Details Date Type Department Care Team (Late st Contact Info) Description 05/18/2023 Telephone Care Coordination [address] [place], [place] [id number] Anne Galloway, [facility] [address] [place] [address] Allergies Active Allergy Reactions Criticality Noted Date Comments Nickel Rash 06/01/2018 documented as of this encounter (statuses as of 08/17/2023) Medications Medication Sig Dispensed Refills Start Date End Date Status VENTOLIN HFA 108 (90 Base) MCG/ACT inhaler INHALE 2 PUFFS BY MOUTH 4 TIMES A DAY 18 g 1 04/17/2019 Active Amitriptyline HCl 50 MG Oral Tablet (Elavil) Take 1 Tablet by mouth at bedtime. Use as needed- may use 1/2 to full tab. 0 Active Ondansetron HCl 4 MG Oral TabletIndication [...] as needed 150 g 5 05/17/2023 Active Melatonin 10 MG Tablet Take 1 Tab by mouth at bedtime. 0 11/15/2018 3 Discontinued(Ref ill) valACYclovir HCl 1 GM Oral Tablet (Valtrex) TAKE 1 TABLET BY MOUTH IN THE MORNING AND 1 TAB BEFORE BEDTIME FOR 7 DAYS 14 Tablet 1 12/07/2022 3 Discontinued(Ref ill) oxyCODONE HCl 5 MG Oral Tablet (Oxy [...] as of this encounter (statuses as of 08/17/2023) Active Problems Problem Noted Date Diagnosed Date Major depressive disorder, recurrent episode, mo derate 11/15/2018 Depression with anxiety 10/19/2016 Malaise and fatigue 08/18/2010 Tobacco use disorder 11/02/2007 Elevated liver enzymes Migraine Insomnia documented as of this encounter (statuses as of 08/17/2023) Resolved Problems Problem Noted Date Diagnosed Date Resolved Date Alcohol abuse, in remission 04/24/2023 04/24/2023 Routine medical exam 08/18/2010 018 documented as of this encounter (statuses as of 08/17/2023) Immunizations Name Administration Dates Next Due Covid-19, [...] Miscellaneous Notes * Telephone Encounter - Anne Galloway Y - 05/18/2023 3:10 PM EDT DAVID called patient in regards to the home visit today and left message. Patient called DAVID back andreported that she has cancelled this appointment on her my chart. However would like to re-schedule. documented in this encounter Plan of Treatment Upcoming Encounters Date Type Department Care Team (Late st Contact Info) Description 11/24/2023 1:40 PM EST Office Visit Family Practice [facility] [place] [address] [place] [address] Luna III, Aj Westfall MD [address] [place], [place] [address] Health Maintenance Due Date Last Done Comments [...] filedocumented as of this encounter Care Teams Embossograph Operator Relationship Specialty Start Date End Date Aj Gaston III, MD [address] [facility] [place] [address] PCP - General Family Medicine 05/12/23 documented as of this encounter
--- OUTSIDE RECORDS SUMMARY | 2024-01-07 12:24 | External Medical Summary | Summary of Care ---
Author Name Unknown Organization [facility] Address [address] [place] [address] Phone [phone] Care Team Providers Care Flight Inspector Name Role Phone Marilin MICHAELS MD, Aj Westfall Primary Care Provider [phone] Reason for Visit * Reason Onset Date Comments Order Request 05/18/2023 MAmmo Encounter Details Date Type Department Care Team (Late st Contact Info) Description 05/18/2023 Telephone Family Practice [facility] [address] [place] [address] Aj Gaston III, MD [address] [place] [address] Order Request (MAmmo) Allergies Active Allergy Reactions Criticality Noted Date [...] Telephone Encounter - Eneida Carrillo RN - 05/19/2023 9:51 AM EDT Order done. * Telephone Encounter - Larissa Crain OSA - 05/18/2023 4:22 PM EDT An order was requested for this patient. Name of Requesting Provider: Aj Gaston Order Requested: Mammo screening Diagnosis/Reason for Request: Bilat Mammo Scr If order request is for Mammogram: Is the patient having any breast symptoms? No Is there a chance of ? No Has the patient had any breast problems in the past? No Does the order need to be faxed somewhere? If so, where?: no, [facility] Fax Number, if applicable: n/a Call Back Number: [phone] If the caller is not a current patient, please advise the patient to call their current PCP to havethe order's prior to being seen in our office. The patient was informed that our providers would not order anything (medication, labs, etc.) prior to being seen. documented in this encounter Plan of Treatment Upcoming Encounters Date Type Department Care Team (Late st Contact Info) Description 11/24/2023 1:40 PM EST Office Visit Family Practice [facility] [place] [address] [facility] [place] [address] Aj Gaston III, MD [address] [facility] [place] [address] Health Maintenance Due Date Last Done Comments [...] Not on filedocumented as of this encounter Results * (ABNORMAL) MAMMOGRAM SCREENING VISHNU BILATERAL (06/21/2023 3:13 PM EDT) Anatomical Region Laterality Modality Breast Bilateral Mammography Narrative 06/22/2023 5:01 PM EDT Result MAMMOGRAM SCREENING VISHNU BILATERAL History Encounter for screening mammogram for breast cancer Family medical history includes breast cancer in cousin (paternal). Films Compared This is the patient's baseline mammogram. Findings Left The left breast is extremely dense, which lowers the sensitivity of mammography. There is a focal asymmetry seen in the outer region of the left breast in the posterior depth. Right The right breast is extremely dense, which lowers the sensitivity of mammography. There is no evidence of suspicious masses, calcifications, or other abnormal findings in the right breast. Impression Left Left breast focal asymmetry at the outer posterior position. Assessment: 0 - Incomplete. Callback ultrasound and Callback diagnostic mammogram are recommended. Right No mammographic evidence of malignancy. BI-RADS Category: 0 - Incomplete: Needs Additional Imaging Evaluation. Recommendation Callback ultrasound is recommended for the left breast. Callback diagnostic mammogram is recommended for the left breast. Screening mammogram in 1 year is recommended for the right breast. Digital breast tomosynthesis was performed. This digital mammogram has been analyzed with the computer aided detection system. This notice contains the results of your recent mammogram, including information about breast density. If your mammogram shows that your breast tissue is dense, you should know that dense breast tissue is a common finding and is not abnormal. Statistics show many women could have dense or highly dense breasts. Dense breast tissue can make it harder to find cancer on a mammogram and may be associated with an increased risk of cancer. This information about the result of your mammogram is given to you to raise your awareness and to inform your conversations with your physician. Together, you can decide which screening options are right for you, based on your mammogram results, individual risk factors or physical examination. A report of your results was sent to your physician. Your mammographic breast density on today's study is described above. There are four categories of breast density on mammography. Fatty breasts and those with scattered fibroglandular tissue are not considered dense. Heterogeneously dense or extremely dense tissue is considered "dense". Please understand that assessment of breast density may vary from year to year. This examination was performed at [facility] [address] [facility] [address] Aj Gaston III, MD RAD MAMMOGRAPHY documented in this encounter Visit Diagnoses Diagnosis Encounter for screening mammogram for breast cancer- Primary Encounter for screening mammogram for breast cancer documented in this encounter Care Teams Flight Inspector Relationship Specialty Start Date End Date Aj Gaston III, MD [address] [place] [address], [place] [address] PCP - General Family Medicine 05/12/23 documented as of this encounter
--- OUTSIDE RECORDS SUMMARY | 2024-01-07 12:24 | External Medical Summary | Summary of Care ---
Author Name Unknown Organization [facility] Address [address] [place] [address] Phone [phone] Care Team Providers Care After School Coordinator Name Role Phone Marilin MICHAELS MD, Aj Westfall Primary Care Provider [phone] Encounter Details Date Type Department Care Team (Late st Contact Info) Description 08/17/2023 Population Health External Data Unspecified Department Allergies [...] EST Office Visit Family Practice [facility] [place] [address] [facility] [place] [address] Aj Gaston III, MD [address] [facility] [place] [address] Health Maintenance Due Date Last Done Comments [...] filedocumented as of this encounter Care Teams After School Coordinator Relationship Specialty Start Date End Date Aj Gaston III, MD [address] [facility] [place] [address] PCP - General Family Medicine 05/12/23 documented as of this encounter
--- OUTSIDE RECORDS SUMMARY | 2024-01-07 12:24 | External Medical Summary | Summary of Care ---
Author Name Unknown Organization [facility] Address [address] [place] [address] Phone [phone] Care Team Providers Care Overcoiler Name Role Phone Marilin MICHAELS MD, Aj Westfall Primary Care Provider [phone] Reason for Visit * Reason Onset Date Comments Medication Refill 11/09/2023 Encounter Details Date Type Department Care Team (Late st Contact Info) Description 11/09/2023 Refill Family Practice [facility] [address] [place] [address] Aj Gaston III, MD [address] [place] [address] Allergies Active Allergy Reactions Criticality Noted Date Comments Nickel Rash 06/01/2018 documented as of this encounter (statuses as of 11/09/2023) Medications Medication Sig Dispensed Refills Start Date [...] 300 MG Oral Capsule (Neurontin) 3x daily 270 Capsule 0 11/09/2023 Active Gabapentin 300 MG Oral Capsule (Neurontin) 3x daily 90 Capsule 3 09/21/2023 Discontinue d(Refill) documented as of this encounter (statuses as of 11/09/2023) Active Problems Problem Noted Date Diagnosed Date Major depressive disorder, recurrent episode, mo derate 11/15/2018 Depression with anxiety 10/19/2016 Malaise and fatigue 08/18/2010 Tobacco use disorder 11/02/2007 Elevated liver enzymes Migraine Insomnia documented as of this encounter (statuses as of 11/09/2023) Resolved Problems Problem Noted Date Diagnosed Date Resolved Date Alcohol abuse, in remission 04/24/2023 04/24/2023 Routine medical exam 08/18/2010 018 documented as of this encounter (statuses as of 11/09/2023) Immunizations Name Administration Dates Next Due Covid-19, [...] encounter Miscellaneous Notes * Telephone Encounter - Violeta Jose DO - 11/09/2023 6:57 PM ESTSigned Prescriptions: Disp Refills Gabapentin 300 MG Oral Capsule (Neurontin) 270 Ca*0 Six daily Authorizing Provider: VIOLETA JOSE * Telephone Encounter - Angela Lofton MED ASSIST - 11/09/2023 12:59 PM EST Pending Prescriptions: Disp Refills Gabapentin 300 MG Oral Capsule (Neurontin) 270 Ca*0 Six daily * Telephone Encounter - Angela Lofton MED ASSIST - 11/09/2023 12:58 PM EST Did you pend patient's preferred pharmacy and medication before forwarding?yes Pharmacy: [id number] [address] [facility] Pending Prescriptions: Disp Refills Gabapentin 300 MG Oral Capsule (Neurontin)90 Cap*3 Six daily Last Visit: 07/28/2023 (in office), 09/03/2021 (telemedicine) Next Visit: 11/24/2023 If no future appointments scheduled, and last appointment is greater than a year ago, please schedule patient for a follow-up appointment Last date the medication was ordered: 09/21/2023 Is this request for a controlled substance?No Urine Drug Screen: Results for orders placed or performed in visit on 06/12/20 TOX SCREEN, URINE, W/ CONFIRMATION Result Value Amphetamine POSITIVE (A) Benzodiazepines NEGATIVE Cannabinoids NEGATIVE Cocaine Metabolite NEGATIVE HYDROCODONE NEGATIVE Morphine / Codeine NEGATIVE METHADONE METABOLITE NEGATIVE OXYCODONE NEGATIVE TOX COMMENT THE ABOVE SCREENING RESULTS ARE PRESUMPTIVE AND CAN ONLY BE USED FOR MEDICAL PURPOSES. POSITIVE RESULTS REFLEX TO CONFIRMATORY TESTING. Cutoff Concentration Patient Phone Numbers Labs: Lab Results Component Value Date/Time CREAT 0.7 04/27/2023 11:24 AM CREAT 0.9 06/12/2020 12:23 PM POTASSIUM 4.7 04/27/2023 11:24 AM POTASSIUM 5.3 (H) 06/12/2020 12:23 PM TSH 1.72 04/27/2023 11:24 AM TSH 1.02 06/12/2020 12:23 PM LDLDIRECT 99 06/12/2020 12:23 PM ALT 91 (H) 04/27/2023 11:24 AM ALT 14 06/12/2020 12:23 PM HGBA1C 4.9 06/12/2020 12:23 PM * Telephone Encounter - Kelsie Carreno, PATTIE - 11/09/2023 12:37 PM EST 90 day Did you pend patient's preferred pharmacy and medication before forwarding?yes Pharmacy: [id number] [address] [facility] Pending Prescriptions: Disp Refills Gabapentin 300 MG Oral Capsule (Neurontin)90 Cap*3 Six daily Last Visit: 07/28/2023 (in office), 09/03/2021 (telemedicine) Next Visit: 11/24/2023 If no future appointments scheduled, and last appointment is greater than a year ago, please schedule patient for a follow-up appointment Last date the medication was ordered: 09/21/23 Is this request for a controlled substance?No Urine Drug Screen: Results for orders placed or performed in visit on 06/12/20 TOX SCREEN, URINE, W/ CONFIRMATION Result Value Amphetamine POSITIVE (A) Benzodiazepines NEGATIVE Cannabinoids NEGATIVE Cocaine Metabolite NEGATIVE HYDROCODONE NEGATIVE Morphine / Codeine NEGATIVE METHADONE METABOLITE NEGATIVE OXYCODONE NEGATIVE TOX COMMENT THE ABOVE SCREENING RESULTS ARE PRESUMPTIVE AND CAN ONLY BE USED FOR MEDICAL PURPOSES. POSITIVE RESULTS REFLEX TO CONFIRMATORY TESTING. Cutoff Concentration Patient Phone Numbers [employer] [phone] Labs: Lab Results Component Value Date/Time CREAT 0.7 04/27/2023 11:24 AM CREAT 0.9 06/12/2020 12:23 PM POTASSIUM 4.7 04/27/2023 11:24 AM POTASSIUM 5.3 (H) 06/12/2020 12:23 PM TSH 1.72 04/27/2023 11:24 AM TSH 1.02 06/12/2020 12:23 PM LDLDIRECT 99 06/12/2020 12:23 PM ALT 91 (H) 04/27/2023 11:24 AM ALT 14 06/12/2020 12:23 PM HGBA1C 4.9 06/12/2020 12:23 PM documented in this encounter Plan of Treatment Upcoming Encounters Date Type Department Care Team (Late st Contact Info) Description 11/24/2023 1:40 PM EST Office Visit Family Practice [facility] [place] [address] [place] [address] Aj Gaston III, MD [address] [facility] [place] [address] Health Maintenance Due Date Last Done Comments Hepatitis B (1 of 3 - 3-dose series) 1982 HPV/Co-Test 2012 COVID-19 Vaccine ( season) 2023 09/23/2022 Influenza Vaccine (FLU shot) (#1) 2023 Mammogram 06/28/2024 06/28/2023, 10/2022, 06/21/2023, Additional history exists Depression Screening 07/28/2024 07/28/2023 Cervical Cancer Screening [...] filedocumented as of this encounter Care Teams Overcoiler Relationship Specialty Start Date End Date Aj Gaston III, MD [address] [place] [address] PCP - General Family Medicine 05/12/23 documented as of this encounter
--- OUTSIDE RECORDS SUMMARY | 2024-01-07 12:24 | External Medical Summary | Summary of Care ---
Author Name Unknown Organization [facility] Address [address] [place] [address] Phone [phone] Care Team Providers Care Steamtable Worker Name Role Phone Marilin MICHAELS MD, Aj Westfall Primary Care Provider [phone] Reason for Visit * Reason Onset Date Comments Advice 06/30/2023 Questions about US and breast biopsy Encounter Details Date Type Department Care Team (Late st Contact Info) Description 06/30/2023 Telephone Family Practice [facility] [address] [place] [address] Aj Gaston III, MD [address] [place] [address] Advice (Questions about US and breast biopsy) Allergies Active Allergy Reactions Criticality Noted Date Comments Nickel Rash 06/01/2018 documented as of this encounter (statuses as of 09/29/2023) Medications Medication Sig Dispensed Refills Start Date [...] Tablet 2 06/23/2023 Active Melatonin 10 MG Tablet Take 1 Tab by mouth at bedtime. 0 11/15/2018 07/10/2023 Discontinued (Refill) valACYclovir HCl 1 GM Oral Tablet (Valtrex) TAKE 1 TABLET BY MOUTH IN THE MORNING AND 1 TAB BEFORE BEDTIME FOR 7 DAYS 14 Tablet 1 12/07/2022 07/10/2023 Discontinued (Refill) documented as of this encounter (statuses as of 09/29/2023) Active Problems Problem Noted Date Diagnosed Date Major depressive disorder, recurrent episode, mo derate 11/15/2018 Depression with anxiety 10/19/2016 Malaise and fatigue 08/18/2010 Tobacco use disorder 11/02/2007 Elevated liver enzymes Migraine Insomnia documented as of this encounter (statuses as of 09/29/2023) Resolved Problems Problem Noted Date Diagnosed Date Resolved Date Alcohol abuse, in remission 04/24/2023 04/24/2023 Routine medical exam 08/18/2010 018 documented as of this encounter (statuses as of 09/29/2023) Immunizations Name Administration Dates Next Due Covid-19, [...] encounter Miscellaneous Notes * Telephone Encounter - Kirk Mendoza OSA - 06/30/2023 4:08 PM EDT Patient calling and states that she has a breast biopsy scheduled for 07/12/23 and she has questions regarding the US results and the biopsy. documented in this encounter Plan of Treatment Upcoming Encounters Date Type Department Care Team (Late st Contact Info) Description 11/24/2023 1:40 PM EST Office Visit Family Practice [facility] [place] [address] [place] [address] [place] III, Aj Westfall MD [address] [place] [address] Health Maintenance Due Date Last Done Comments [...] filedocumented as of this encounter Care Teams Steamtable Worker Relationship Specialty Start Date End Date Aj Gaston III, MD [address] [place] [address] [place] [address] PCP - General Family Medicine 05/12/23 documented as of this encounter
--- OUTSIDE RECORDS SUMMARY | 2024-01-07 12:24 | External Medical Summary | Summary of Care ---
Author Name Unknown Organization [facility] Address [address] [place] [address] Phone [phone] Care Team Providers Care Construction Code Administrator Name Role Phone Marilin MICHAELS MD, Gumaro Westfall Primary Care Provider [phone] Reason for Visit * Reason Onset Date Comments Medication Refill 09/21/2023 Encounter Details Date Type Department Care Team (Late st Contact Info) Description 09/21/2023 Refill Family Practice [facility] [address] [place] [address] Gumaro Rodriguez III, MD [address] [place] [address] Allergies Active Allergy Reactions Criticality Noted Date Comments Nickel Rash 06/01/2018 documented as of this encounter (statuses as of 09/21/2023) Medications Medication Sig Dispensed Refills Start Date [...] 3x daily 90 Capsule 3 09/21/2023 Active Gabapentin 300 MG Oral Capsule (Neurontin) At bedtime x 5 days then twice daily x 5, then 3x daily 90 Capsule 5 07/17/2023 09/21/2023 Discontinue d(Refill) documented as of this encounter (statuses as of 09/21/2023) Active Problems Problem Noted Date Diagnosed Date Major depressive disorder, recurrent episode, mo derate 11/15/2018 Depression with anxiety 10/19/2016 Malaise and fatigue 08/18/2010 Tobacco use disorder 11/02/2007 Elevated liver enzymes Migraine Insomnia documented as of this encounter (statuses as of 09/21/2023) Resolved Problems Problem Noted Date Diagnosed Date Resolved Date Alcohol abuse, in remission 04/24/2023 04/24/2023 Routine medical exam 08/18/2010 018 documented as of this encounter (statuses as of 09/21/2023) Immunizations Name Administration Dates Next Due Covid-19, [...] Encounter - Gumaro Rodriguez III, MD - 09/21/2023 6:24 PM ESTSigned Prescriptions: Disp Refills Gabapentin 300 MG Oral Capsule (Neurontin) 90 Cap*3 Six dailyAuthorizing Provider: GUMARO RODRIGUEZ III * Telephone Encounter - Janie Bush LPN - 09/21/2023 1:32 PM ESTPending Prescriptions: Disp Refills Gabapentin 300 MG Oral Capsule (Neurontin) 90 Cap*3 * Telephone Encounter - Kelsie Carreno OSA - 09/21/2023 12:31 PM EST 90 day Did you pend patient's preferred pharmacy and medication before forwarding?yes Pharmacy: [id number] [address] [facility] Pending Prescriptions: Disp Refills Gabapentin 300 MG Oral Capsule (Neurontin)90 Cap*5 Sig: At bedtime x 5 days then twice daily x 5, then 3x daily Last Visit: 07/28/2023 (in office), 09/03/2021 (telemedicine) Next Visit: 11/24/2023 If no future appointments scheduled, and last appointment is greater than a year ago, please schedule patient for a follow-up appointment Last date the medication was ordered: 07/17/23 Is this request for a controlled substance?No [...] EST Office Visit Family Practice [facility] [place] [address] [facility] [place] [address] Gumaro Rodriguez III, MD [address] [facility] [place] [address] Health Maintenance Due Date Last Done Comments [...] as of this encounter Care Teams Construction Code Administrator Relationship Specialty Start Date End Date Gumaro Rodriguez III, MD [address] [facility] [place] [address] PCP - General Family Medicine 05/12/23 documented as of this encounter
--- NOTE | 2024-01-07 13:23 | Hospitalist Progress Note ---
Date of Service January 07, 2024 Assessment & Plan (1) Alcohol dependence: (2) Alcoholic intoxication: (3) Anxiety and depression: (4) ADD (attention deficit disorder): (5) Contusion: (6) Tobacco use disorder: Plan This is a 43yo F with PMH of alcohol use disorder, Tobacco use disorder, migraine headaches, anxiety and depression and other medical problems listed below who presents with request for alcohol detox. Alcohol use disorder Alcohol withdrawal History of alcohol use disorder with multiple hospitalization in the past Blood alcohol level of 400s on admission AWSS per protocol Gabapentin taper, Valium increased to 10 mg every 6 hours. Hold while patient is sleeping/lethargic Seizure precautions IV thiamine 250 mg every 8 hours Possible UTI Urinalysis suggestive of infection Started on ceftriaxone. Will follow-up on urine culture Hypokalemiareplete potassium Hypophosphatemiarepleted Hypomagnesemiastarted on magnesium oxide Pancytopenia likely secondary to alcohol use disorder Anemiaobtain iron profile, vitamin B12 Monitor WBC count Thrombocytopenia secondary to alcohol use disorder Chronic conditions; Mood disorderon buspirone, amitriptyline and hydroxyzine continue DVT prophylaxis SCDs Full code Please note the above document was generated using voice recognition software. It may contain grammatical, syntax or spelling errors. Any formal questions or concerns about the content, text or information contained within the body of this dictation should be directly addressed to the provider for clarification Admission and Anticipated Discharge Date Admission Date: January 06, 2024 Subjective Patient seen and examined at bedside. She is comfortably lying on the bed; not in distress. Reports that her tremors have improved with increase in Valium Review of Systems Review of Systems: All systems reviewed & are unremarkable except as noted in Subjective Physical Exam Physical Exam: Constitutional: Alert oriented x 3; not in distress.. No tremors noticed Respiratory: normal respiratory effort, lungs clear to auscultation, no wheeze, rales, rhonchi. Normal insp/exp effort, no accessory muscle use Cardiovascular: RRR, no murmur, no edema Vessels: no JVD or carotid bruit Chest: normal inspection of chest Abdomen: normal bowel sounds, soft, nontender, no hepatosplenomegaly Musculoskeletal: no cyanosis or clubbing, extremities motor strength 5/5 Skin: no rashes, warm and dry normal turgor Neurologic: PERRL, EOMI, accommodation nl, no face palsy, no dysarthria CN's II- XI intact bilaterally and moves all extremities Psychiatric: A+Ox3, euthymic affect Results & Data Results & Data Vital Signs (Past 12 Hours) Vital Signs Temp Pulse Resp BP Pulse Ox O2 Del Method 01/07/24 10:26 37.0 C 98 H 19 103/76 98 Room Air 01/07/24 07:29 36.9 C 119 H 16 111/90 98 Room Air 01/07/24 05:14 37.3 C 107 H 20 100/77 98 Room Air 01/07/24 02:47 37.1 C 122 H 18 109/74 97 Room Air (2) Alcoholic intoxication Complication of substance-induced condition: uncomplicated Qualified Code(s): F10.920 - Alcohol use, unspecified with intoxication, uncomplicated
[2024-01-07] MEDS: cefTRIAXone SODIUM 2,000 MG in DEXTROSE 5 % MINI-B 50 ML IV SCH (15:05)
[2024-01-07] MEDS: POTASSIUM PHOSPHATE 21 MMOL in SODIUM CHLORIDE 0.9% 500 ML IV ONE (15:06)
[2024-01-07] MEDS: GABAPENTIN 600 MG TAB PO SCH (15:06)
[2024-01-07] MEDS: MAGNESIUM OXIDE 400 MG TAB PO SCH (20:18)
--- NOTE | 2024-01-07 22:05 | Electrocardiogram Report ---
Test Reason : Blood Pressure : / mmHG Vent. Rate : 125 BPM Atrial Rate : 125 BPM P-R Int : 140 ms QRS Dur : 072 ms QT Int : 316 ms P-R-T Axes : 086 072 209 degrees QTc Int : 456 ms Sinus tachycardia T wave abnormality, consider inferolateral ischemia Abnormal ECG When compared with ECG of 05-MAY-2023 17:23, T wave inversion now evident in Inferolateral leads Confirmed by Jerry Rey ([id number]) on 01/07/2024 10:05:12 PM Referred By: REFERRED SELF Confirmed By:Jerry Rey
[2024-01-07] MEDS: MELATONIN 3 MG TAB PO PRN (22:40)
[2024-01-08 07:54] LABS: Alanine Aminotransferase 32 U/L (7-52); Albumin Globulin Ratio 1.6 (0.9-2); Albumin Level 3.9 gm/dl (3.4-5.0); Alkaline Phosphatase 55 U/L (34-104); Anion Gap 6 (3-11); BUN Creatinine Ratio 9.8 (10-20); Bilirubin,Total 0.7 mg/dl (0.2-1.0); Blood Urea Nitrogen 6 mg/dl (6-23); Calcium 8.5 mg/dl (8.6-10.3); Carbon Dioxide 29 mmol/L (21-32); Chloride 102 mmol/L (98-107); Creatinine Clr Calc Pharmacy 104.8 ml/min; Est GFR (African American) 130.5 ml/min; Est GFR (Non-African American) 112.6 ml/min; Globulin 2.5 gm/dl (2.5-4.0); Glucose 112 mg/dl (70-99(Fasting)); Sodium 137 mmol/L (136-145); Total Protein 6.4 gm/dl (6.0-8.3); Transferrin 131 mg/dl (200-360)
[2024-01-08 08:06] LABS: Ferritin 980.5 ng/ml (8-388)
[2024-01-08 08:24] LABS: Hematocrit (blood only) 33.2 % (37.0-47.0); Hemoglobin 11.6 g/dl (12.0-16.0); Mean Corpuscular Hemoglobin 35.8 pg (25.0-34.0); Mean Corpuscular Hgb Conc 34.9 g/dL (32.0-36.0); Mean Corpuscular Volume 102.5 fL (80.0-100.0); Mean Platelet Volume 9.8 fL (9.4-12.4); Platelet Count 87 K/uL (130-400); RDW Coefficient of Variation 14.8 % (11.5-14.5); Red Blood Count 3.24 M/uL (4.20-5.40); White Blood Count 4.03 K/ul (4.8-10.8)
[2024-01-08 08:37] LABS: Potassium 3.2 mmol/L (3.5-5.1)
[2024-01-08] MEDS: diazePAM 5 MG TABLET PO SCH (11:12)
[2024-01-08] MEDS: POTASSIUM CHLORIDE CRTAB 20 MEQ TABCR PO STA (11:12)
--- NOTE | 2024-01-08 11:37 | Hospitalist Progress Note ---
Date of Service January 08, 2024 Assessment & Plan (1) Alcohol dependence: (2) Alcoholic intoxication: (3) Anxiety and depression: (4) ADD (attention deficit disorder): (5) Contusion: (6) Tobacco use disorder: Plan This is a 43yo F with PMH of alcohol use disorder, Tobacco use disorder, migraine headaches, anxiety and depression and other medical problems listed below who presents with request for alcohol detox. Alcohol use disorder Alcohol withdrawal History of alcohol use disorder with multiple hospitalization in the past Blood alcohol level of 400s on admission AWSS per protocol Gabapentin taper,; patient restarted on her home dose of gabapentin 300 mg 3 times a day Decrease Valium to 5 mg every 6 hours. Will titrate down as tolerated. Hold while patient is sleeping/lethargic Seizure precautions IV thiamine 250 mg every 8 hours Possible UTI Urinalysis suggestive of infection Started on ceftriaxone. Urine culture pending Hypokalemiareplete potassium Hypophosphatemiarepleted Hypomagnesemiastarted on magnesium oxide Pancytopenia likely secondary to alcohol use disorder Anemiairon profile and suggest iron deficiency anemia. Vitamin B12 within normal limits. Continue monitor CBC Monitor WBC count Thrombocytopenia secondary to alcohol use disorder Chronic conditions; Mood disorderon buspirone, amitriptyline and hydroxyzine continue DVT prophylaxis SCDs Full code Please note the above document was generated using voice recognition software. It may contain grammatical, syntax or spelling errors. Any formal questions or concerns about the content, text or information contained within the body of this dictation should be directly addressed to the provider for clarification Admission and Anticipated Discharge Date Admission Date: January 06, 2024 Subjective Patient seen and examined at bedside. Comfortable; not in distress. Denies fever, chills, chest pain, shortness of breath, abdominal pain or urinary symptoms. No significant overnight events No hallucinations, tremors. Reports that the Valium has been helping with the withdrawals Review of Systems Review of Systems: All systems reviewed & are unremarkable except as noted in Subjective Physical Exam Physical Exam: Constitutional: Alert oriented x 3; not in distress.. No tremors noticed Respiratory: normal respiratory effort, lungs clear to auscultation, no wheeze, rales, rhonchi. Normal insp/exp effort, no accessory muscle use Cardiovascular: RRR, no murmur, no edema Vessels: no JVD or carotid bruit Chest: normal inspection of chest Abdomen: normal bowel sounds, soft, nontender, no hepatosplenomegaly Musculoskeletal: no cyanosis or clubbing, extremities motor strength 5/5 Skin: no rashes, warm and dry normal turgor Neurologic: PERRL, EOMI, accommodation nl, no face palsy, no dysarthria CN's II- XI intact bilaterally and moves all extremities Psychiatric: A+Ox3, euthymic affect Results & Data Results & Data Vital Signs (Past 12 Hours) Vital Signs Temp Pulse Pulse Resp BP BP Pulse Ox 01/08/24 10:51 36.7 C 80 18 91/66 L 98 01/08/24 07:18 36.7 C 81 19 99/71 L 98 01/08/24 07:00 73 01/08/24 03:09 36.5 C 82 16 112/79 99 O2 Del Method 01/08/24 10:51 Room Air 01/08/24 07:18 Room Air 01/08/24 07:00 01/08/24 03:09 Room Air (2) Alcoholic intoxication Complication of substance-induced condition: uncomplicated Qualified Code(s): F10.920 - Alcohol use, unspecified with intoxication, uncomplicated
[2024-01-08] MEDS: GABAPENTIN 300 MG CAP PO SCH (13:38)
[2024-01-08] MEDS ORDERED: GABAPENTIN 600 MG TAB PO SCH (18:00)
[2024-01-09 06:32] LABS: Basophils # (auto) 0.03 K/uL (0.00-0.20); Basophils % (auto) 0.7 %; Eosinophils # (auto) 0.32 K/uL (0.00-0.50); Eosinophils % (auto) 7.3 %; Hematocrit (blood only) 33.4 % (37.0-47.0); Hemoglobin 10.9 g/dl (12.0-16.0); Immature Granulocytes # (auto) 0.02 K/uL (0.01-0.20); Immature Granulocytes % (auto) 0.5 %; Lymphocytes # (auto) 1.48 K/uL (1.20-3.40); Lymphocytes % (auto) 33.9 %; Mean Corpuscular Hemoglobin 34.9 pg (25.0-34.0); Mean Corpuscular Hgb Conc 32.6 g/dL (32.0-36.0); Mean Corpuscular Volume 107.1 fL (80.0-100.0); Mean Platelet Volume 10.6 fL (9.4-12.4); Monocytes # (auto) 0.32 K/uL (0.11-0.59); Monocytes % (auto) 7.3 %; Neutrophils % (auto) 50.3 %; Platelet Count 95 K/uL (130-400); RDW Coefficient of Variation 14.6 % (11.5-14.5); RDW Standard Deviation 57.6 fL (36.4-46.3); Red Blood Count 3.12 M/uL (4.20-5.40); White Blood Count 4.37 K/ul (4.8-10.8)
[2024-01-09 06:36] LABS: BUN Creatinine Ratio 17.5 (10-20); Creatinine Clr Calc Pharmacy 112.2 ml/min; Est GFR (African American) 133.5 ml/min; Est GFR (Non-African American) 115.1 ml/min; Potassium 3.9 mmol/L (3.5-5.1)
--- NOTE | 2024-01-09 11:34 | Hospitalist Progress Note ---
Date of Service January 09, 2024 Assessment & Plan (1) Alcohol dependence: (2) Alcoholic intoxication: (3) Anxiety and depression: (4) ADD (attention deficit disorder): (5) Contusion: (6) Tobacco use disorder: Plan This is a 43yo F with PMH of alcohol use disorder, Tobacco use disorder, migraine headaches, anxiety and depression and other medical problems listed below who presents with request for alcohol detox. Alcohol use disorder Alcohol withdrawal History of alcohol use disorder with multiple hospitalization in the past Blood alcohol level of 400s on admission AWSS per protocol Gabapentin taper,; patient restarted on her home dose of gabapentin 300 mg 3 times a day Decrease Valium to 5 mg every 8 hours. Will titrate down as tolerated. Hold while patient is sleeping/lethargic Seizure precautions IV thiamine 250 mg every 8 hours Patient to discuss with case management regarding rehab versus discharge home Possible UTI Urinalysis suggestive of infection Urine culture Gardnerella like bacilli Discontinue antibiotics Hypokalemiareplete potassium Hypophosphatemiarepleted Hypomagnesemiastarted on magnesium oxide Pancytopenia likely secondary to alcohol use disorder Anemiairon profile and suggest iron deficiency anemia. Vitamin B12 within normal limits. Continue monitor CBC Monitor WBC count Thrombocytopenia secondary to alcohol use disorder Chronic conditions; Mood disorderon buspirone, amitriptyline and hydroxyzine continue DVT prophylaxis SCDs Full code Please note the above document was generated using voice recognition software. It may contain grammatical, syntax or spelling errors. Any formal questions or concerns about the content, text or information contained within the body of this dictation should be directly addressed to the provider for clarification Admission and Anticipated Discharge Date Admission Date: January 06, 2024 Subjective Patient seen and examined at bedside. She reports that she is feeling well; no tremors, hallucinations or seizures. She reports improved sleep, appetite. No significant events overnight Review of Systems Review of Systems: All systems reviewed & are unremarkable except as noted in Subjective Physical Exam Physical Exam: Constitutional: Alert oriented x 3; not in distress.. No tremors noticed Respiratory: normal respiratory effort, lungs clear to auscultation, no wheeze, rales, rhonchi. Normal insp/exp effort, no accessory muscle use Cardiovascular: RRR, no murmur, no edema Vessels: no JVD or carotid bruit Chest: normal inspection of chest Abdomen: normal bowel sounds, soft, nontender, no hepatosplenomegaly Musculoskeletal: no cyanosis or clubbing, extremities motor strength 5/5 Skin: no rashes, warm and dry normal turgor Neurologic: PERRL, EOMI, accommodation nl, no face palsy, no dysarthria CN's II- XI intact bilaterally and moves all extremities Psychiatric: A+Ox3, euthymic affect Results & Data Results & Data Vital Signs (Past 12 Hours) Vital Signs Temp Pulse Pulse Resp BP BP Pulse Ox 01/09/24 10:31 36.6 C 75 19 120/85 99 01/09/24 07:16 36.7 C 75 19 93/71 L 98 01/09/24 07:00 72 01/09/24 03:18 36.5 C 71 16 98/66 L 98 O2 Del Method 01/09/24 10:31 Room Air 01/09/24 07:16 Room Air 01/09/24 07:00 01/09/24 03:18 Room Air (2) Alcoholic intoxication Complication of substance-induced condition: uncomplicated Qualified Code(s): F10.920 - Alcohol use, unspecified with intoxication, uncomplicated
[2024-01-09] MEDS: valACYclovir HCL 500 MG TABLET PO SCH (14:02)
[2024-01-09] MEDS: diazePAM 5 MG TABLET PO SCH (14:04)
[2024-01-10] MEDS: MELATONIN 3 MG TAB PO STA (01:25)
[2024-01-10] MEDS ORDERED: GABAPENTIN 600 MG TAB PO SCH (06:00)
[2024-01-10] MEDS: diazePAM 5 MG TABLET PO SCH (09:50)
--- NOTE | 2024-01-10 13:25 | Discharge Summary ---
Date of Service January 10, 2024 Admission HPI Per Admitting Provider This is a 43yo F with PMH of alcohol use disorder, Tobacco use disorder, migraine headaches, anxiety and depression and other medical problems listed below who presents with request for alcohol detox. Per chart review, patient with worsening depression over the past few months with difficulty completing ADLs. Lives alone but mom Jessenia is involved at at bedside. Endorses significant alcohol use recently. Agreeable to rehab after detox. Does endorse a fall on the stairs earlier this week with some bruising on arm, forehead and knee. States she has not had a drink in over 24 hours with alcohol level of 416 on admission. Usually drinks at least 10 shots of vodka a day. Possible seizure in withdrawal setting before a few months ago but does not remember the details. Has gone to rehab before and was No F/C, lightheadedness, CP, SOB, N/V, abd pain, dysuria, diarrhea or constipation. Feels cold and starting to have tremors. Denies hallucinations. Admission Exam Per Admitting Provider Constitutional: Alert oriented x 3; tremulous. Bruise present on right forehead Respiratory: Bilateral basilar breath Cardiovascular: RRR, no murmur, no edema Vessels: no JVD or carotid bruit Chest: normal inspection of chest Abdomen: normal bowel sounds, soft, nontender, no hepatosplenomegaly Musculoskeletal: no cyanosis or clubbing, extremities motor strength 5/5. Bruise present on left arm Skin: no rashes, warm and dry normal turgor Neurologic: PERRL, EOMI, accommodation nl, no face palsy, no dysarthria CN's II- XI intact bilaterally and moves all extremities Psychiatric: A+Ox3, euthymic affect Principal Diagnosis Alcohol use disorder Alcohol withdrawal Discharge Exam Constitutional: Alert oriented x 3; not in distress.. No tremors noticed Respiratory: normal respiratory effort, lungs clear to auscultation, no wheeze, rales, rhonchi. Normal insp/exp effort, no accessory muscle use Cardiovascular: RRR, no murmur, no edema Vessels: no JVD or carotid bruit Chest: normal inspection of chest Abdomen: normal bowel sounds, soft, nontender, no hepatosplenomegaly Musculoskeletal: no cyanosis or clubbing, extremities motor strength 5/5 Skin: no rashes, warm and dry normal turgor Neurologic: PERRL, EOMI, accommodation nl, no face palsy, no dysarthria CN's II- XI intact bilaterally and moves all extremities Psychiatric: A+Ox3, euthymic affect Discharge Data Allergies Allergy/AdvReac Type Severity Reaction Status Date / Time nickel Allergy Rash Verified 01/06/24 16:22 Consultations 01/06/24 16:22 ED Decision to Admit Stat Ordered Studies 01/06/24 15:26 CT head/brain wo con Stat Hospital Course (1) Alcohol dependence: (2) Alcoholic intoxication: (3) Anxiety and depression: (4) ADD (attention deficit disorder): (5) Contusion: (6) Tobacco use disorder: Plan This is a 43yo F with PMH of alcohol use disorder, Tobacco use disorder, migraine headaches, anxiety and depression and other medical problems listed below who presents with request for alcohol detox. Alcohol use disorder Alcohol withdrawal History of alcohol use disorder with multiple hospitalization in the past Blood alcohol level of 400s on admission During the hospitalization, patient was placed on tapered Valium dose along with gabapentin and Ativan. Patient reported improvement in withdrawal symptoms. She did not have any withdrawal symptoms at the time of the discharge Patient to follow-up with primary care doctor. Patient could benefit from being started on naltrexone/acamprosate and or referral to addiction medicine. No other medication changes were done Please note the above document was generated using voice recognition software. It may contain grammatical, syntax or spelling errors. Any formal questions or concerns about the content, text or information contained within the body of this dictation should be directly addressed to the provider for clarification Total Time Total Time Spent Total Time Spent (In Minutes): 34 Total Time Includes: Examination of the Patient, Discharge Planning, Medication Reconciliation, 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 With Other Providers and Other Discharge Plan Discharge Items Patient Disposition: Home - Self-Care Reason For Visit: ETOH DETOX REQUEST Discharge Diagnosis: Alcohol use disorder Alcohol withdrawal Activity: Resume your previous activity Non-emergency contact: Primary Care Provider Call non-emergency contact if: you have any medication questions and your symptoms worsen Follow-up/Referrals: Aj Gaston MD [Primary Care Provider] - (Date & Time 01/14/2024 11:00 AM Provider Aj Gaston III, MD Department [facility] ) Diet: Regular Addtl Attending Provider Instructions: You were admitted to the hospital for detox from alcohol use. You underwent treatment with Valium, Ativan and gabapentin. Please follow-up with your primary care doctor as scheduled. Please discuss regarding medications(naltrexone, acamprosate) for alcohol use disorder. You are prescribed Valtrex to be taken for 3 more days for the cold sores. Please follow-up with your psychiatrist Pending Studies at Discharge: No Stand-Alone Forms: My [facility], Smoking Cessation Medications and DC Order Prescriptions: New valacyclovir 500 mg Tablet 1,000 mg PO DAILY 3 Days Qty: 6 0RF Continued ondansetron HCl 4 mg tablet 4 mg PO Q6 PRN (Reason: Nausea) hydroxyzine pamoate 50 mg capsule 50 mg PO BID PRN (Reason: Anxiety) Rx Instructions: PER EXT MED HX--BID PRN, PER [facility]--25 MG Q6H PRN. amitriptyline 50 mg tablet 25 mg PO HS PRN (Reason: Sleep) acetaminophen [Tylenol Extra Strength] 500 mg Tablet 500 - 1,000 mg PO Q6H PRN (Reason: Pain) buspirone 10 mg tablet 10 mg PO TID PRN (Reason: Anxiety) Rx Instructions: rarely taking per patient folic acid 1 mg Tablet 1 mg PO DAILY albuterol sulfate [Ventolin HFA] 90 mcg/actuation Hfa Aerosol Inhaler 2 puff INHALATION QID PRN (Reason: Shortness Of Breath Or Wheezing) thiamine HCl (vitamin B1) 100 mg Tablet 100 mg PO DAILY dextroamphetamine-amphetamine 20 mg tablet 20 mg PO TID gabapentin 300 mg capsule 300 mg PO TID Discontinued valacyclovir 1 gram tablet 1 mg PO BID PRN (Reason: Cold Sores) Discharge Orders: Discharge Order (Routine); Ordered 01/10/24 Ordered By: Sotero Porter Admission Data Admit Date/Time: 01/06/24 17:18 Attending Provider: Sotero Porter Admit Provider: Sotero Porter Primary Care Provider: Aj Gaston Other Providers: Sotero Porter Other Interventions: Discharge Summary Assessment (RN) Last Done: 01/10/24 12:47
== END 2024-01-10 17:36 | disposition home or self-care (01) | DRG 897 ==
LOC: ED 13:21 → EDINP 17:18 → 2E 22:14

== ENCOUNTER 2024-03-15 20:50 | Inpatient (IN) ==
[2024-03-15] MEDS: SODIUM CHLORIDE 0.9% 1,000 ML IV SCH (22:00)
[2024-03-15 22:12] LABS: Basophils # (auto) 0.06 K/uL (0.00-0.20); Basophils % (auto) 1.3 %; Eosinophils # (auto) 0.01 K/uL (0.00-0.50); Eosinophils % (auto) 0.2 %; Hematocrit (blood only) 38.4 % (37.0-47.0); Hemoglobin 12.7 g/dl (12.0-16.0); Immature Granulocytes # (auto) 0.06 K/uL (0.01-0.20); Immature Granulocytes % (auto) 1.3 %; Lymphocytes # (auto) 1.69 K/uL (1.20-3.40); Lymphocytes % (auto) 35.9 %; Mean Corpuscular Hemoglobin 32.6 pg (25.0-34.0); Mean Corpuscular Hgb Conc 33.1 g/dL (32.0-36.0); Mean Corpuscular Volume 98.7 fL (80.0-100.0); Mean Platelet Volume 9.1 fL (9.4-12.4); Monocytes # (auto) 0.22 K/uL (0.11-0.59); Monocytes % (auto) 4.7 %; Neutrophils # (auto) 2.67 K/uL (1.40-6.50); Neutrophils % (auto) 56.6 %; Platelet Count 241 K/uL (130-400); RDW Coefficient of Variation 13.2 % (11.5-14.5); RDW Standard Deviation 48.5 fL (36.4-46.3); Red Blood Count 3.89 M/uL (4.20-5.40); White Blood Count 4.71 K/ul (4.8-10.8)
--- NOTE | 2024-03-15 22:26 | Emergency Department Note ---
History of Present Illness General Chief complaint: Alcohol Intoxication Stated complaint: ALCOHOL INTOXICATION Time Seen by Provider: 03/15/24 21:27 History of Present Illness Maximum Pain Intensity: 8 This 43-year-old female with alcoholism presents the ER requesting detox. Patient has been drinking heavily for the past month. She went to [facility] recently. She has had alcohol withdrawal seizures and DTs in the past. Patient denies chest pain, dyspnea, abdominal pain or any other medical complaints. Patient is willing to stay for detox. Home Medications Medication Instructions Recorded Confirmed Type acetaminophen 500 mg tablet 500 - 1,000 mg PO Q6H PRN Pain 08/14/23 01/06/24 History (Tylenol Extra Strength) albuterol sulfate 90 mcg/actuation 2 puff inhalation QID PRN 08/14/23 01/06/24 History aerosol inhaler (Ventolin HFA) Shortness Of Breath Or Wheezing amitriptyline 50 mg tablet 25 mg PO HS PRN Sleep 08/14/23 01/06/24 History buspirone 10 mg tablet 10 mg PO TID PRN Anxiety 08/14/23 01/06/24 History folic acid 1 mg tablet 1 mg PO DAILY 08/14/23 01/06/24 History hydroxyzine pamoate 50 mg capsule 50 mg PO BID PRN Anxiety 08/14/23 01/06/24 History ondansetron HCl 4 mg tablet 4 mg PO Q6 PRN Nausea 08/14/23 01/06/24 History dextroamphetamine-amphetamine 20 20 mg PO TID 01/06/24 01/06/24 History mg tablet gabapentin 300 mg capsule 300 mg PO TID 01/06/24 01/06/24 History thiamine HCl (vitamin B1) 100 mg 100 mg PO DAILY 01/06/24 01/06/24 History tablet Allergies Allergy/AdvReac Type Severity Reaction Status Date / Time nickel Allergy Rash Verified 01/06/24 16:22 Past Med/Surg History Problem List (Updated 03/15/24 @ 23:20 by Shannen Stratton PA-C) Alcoholic ketoacidosis (Acute) Contusion (Acute) Alcoholic intoxication (Acute) Alcohol abuse (Acute) Weakness (Acute) Hypomagnesemia (Acute) Hallucinations (Acute) Alcohol abuse (Acute) S/P nasal surgery septoplasty and rhinoplasty-both w/Dr. Castañeda Allergic rhinitis Abnormal uterine bleeding ADD (attention deficit disorder) Insomnia Restless leg Anxiety and depression (Chronic) Fatty liver (Chronic) Alcohol dependence (Chronic) Medical History Tobacco use disorder Intractable nausea and vomiting Alcohol withdrawal Depression Anxiety Surgical History H/O wisdom tooth extraction Family History Aunt Breast cancer, Onset Age: 65 paternal Asthma maternal Grandfather (Paternal) Prostate cancer Aunt Allergies maternal Family/Other Allergies cousins Asthma cousins Other No family history of adverse response to anesthesia No family history of bleeding disorder Denies family history of Ovarian cancer Colorectal cancer Social History Smoking Status: Current every day smoker Tobacco Type: E-cigarettes / Vaping Age Started Using Tobacco: 20; packs per day: 0.5; Second Hand Exposure: No; Do You Dip or Chew Tobacco: No; Hx Alcohol Use: Yes Hx Substance Use: No Preferred Language: Belarusian 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 Ability: Effective Security Flex Utility Officer Required: No Beliefs That Will Affect Care: None marital status: Single Current Living Situation: Alone Feels Safe at Home: Yes Assistive Devices: None Review of Systems A total of 10 systems reviewed and were otherwise negative Physical Exam Vital Signs Vital Signs - 24 hr 03/15/24 20:58 03/15/24 21:17 03/15/24 21:18 Temperature 36.6 C Temperature Source Temporal Artery Scan Pulse Rate 116 H 104 H Pulse Rate [Finger] 101 H Pulse Rhythm Regular Pulse Strength Normal Respiratory Rate 18 20 Respiratory Effort / Characteristics Non-Labored Spontaneous Respiratory Depth Normal Respiratory Pattern Regular Blood Pressure 104/63 Blood Pressure [Left Arm] 112/84 Blood Pressure Mean 76 Blood Pressure Mean [Left Arm] 93 Blood Pressure Position Sitting Pulse Oximetry 96 97 Oxygen Delivery Method Room Air Room Air Sepsis Recent Fever Within 48 Hours No Sepsis New/Unexplained Change in Mental Status N/A Sepsis Action Taken by Nursing No Action Required 03/15/24 21:54 Temperature Temperature Source Pulse Rate Pulse Rate [Finger] Pulse Rhythm Pulse Strength Respiratory Rate Respiratory Effort / Characteristics Respiratory Depth Respiratory Pattern Blood Pressure Blood Pressure [Left Arm] Blood Pressure Mean Blood Pressure Mean [Left Arm] Blood Pressure Position Pulse Oximetry 99 Oxygen Delivery Method Room Air Sepsis Recent Fever Within 48 Hours Sepsis New/Unexplained Change in Mental Status Sepsis Action Taken by Nursing VITALS: Vitals are noted on the nurse's note and reviewed by myself. Vital signs stable. GENERAL: White female with EtOH odor, in no acute distress, nondiaphoretic, well-developed well-nourished. SKIN: Capillary reflex less than 2 seconds. HEENT: Normocephalic. PERRLA. EOMI. Nares patent. Mucous membranes moist. Neck is supple without nuchal rigidity. HEART: Regular rate and rhythm LUNGS: Clear to auscultation bilaterally without wheezes, rales or rhonchi. No retractions or accessory muscle use. ABDOMEN: Positive bowel sounds x 4. Normal tympanic percussion. Soft, nontender, without masses or organomegaly. Lofton sign negative. No guarding or rebound tenderness. no CVA tenderness MUSCULOSKELETAL: No gross musculoskeletal defects. NEURO: Patient was alert and oriented to person place and time. No focal neurological deficits. Course Administered Medications Multivitamins 10 ml/ Thiamine HCl 100 mg/ Folic Acid 1 mg/Sodium Chloride 1,011.2 mls @ 500 mls/hr IV .Q2H2M ONE Stop: 03/15/24 23:53 Last Admin: 03/15/24 22:57 Dose: 500 mls/hr Documented By: PINA Discontinued Medications Sodium Chloride (Nss) 1,000 mls @ 999 mls/hr IV .Q1H1M TIN Stop: 03/15/24 23:00 Last Admin: 03/15/24 22:00 Dose: 999 mls/hr Documented By: PINA Nicotine (Nicotine 21 Mg/24 Hr Tdsy) 1 patch TD NOW STA Stop: 03/15/24 22:32 Last Admin: 03/15/24 22:57 Dose: 1 patch Documented By: PINA Medical Decision Making Medical Records Attestation: I reviewed the patient's medical records. Home Medications Current Medication List: was personally reviewed by me Laboratory Data Attestation: I reviewed the patient's lab results. 03/15/24 21:27 03/15/24 21:27 Lab Results 03/15/24 03/15/24 Range/Units 21:27 22:30 WBC 4.71 L (4.8-10.8) K/ul RBC 3.89 L (4.20-5.40) M/uL Hgb 12.7 (12.0-16.0) g/dl Hct 38.4 (37.0-47.0) % MCV 98.7 (80.0-100.0) fL MCH 32.6 (25.0-34.0) pg MCHC 33.1 (32.0-36.0) g/dL RDW Std Deviation 48.5 H (36.4-46.3) fL RDW Coeff of Edgar 13.2 (11.5-14.5) % Plt Count 241 (130-400) K/uL MPV 9.1 L (9.4-12.4) fL Immature Gran % (Auto) 1.3 % Neut % (Auto) 56.6 % Lymph % (Auto) 35.9 % [place] % (Auto) 4.7 % Eos % (Auto) 0.2 % Baso % (Auto) 1.3 % Neut # (Auto) 2.67 (1.40-6.50) K/uL Lymph # (Auto) 1.69 (1.20-3.40) K/uL [place] # (Auto) 0.22 (0.11-0.59) K/uL Eos # (Auto) 0.01 (0.00-0.50) K/uL Baso # (Auto) 0.06 (0.00-0.20) K/uL Immature Gran # (Auto) 0.06 (0.01-0.20) K/uL Sodium 135 L (136-145) mmol/L Potassium 3.8 (3.5-5.1) mmol/L Chloride 96 L (98-107) mmol/L Carbon Dioxide 11 L (21-32) mmol/L Anion Gap 28 H (3-11) BUN 7 (6-23) mg/dl Creatinine 0.67 (0.6-1.2) mg/dl Est Cr Clr Drug Dosing 95.4 ml/min Est GFR ( Amer) 126.5 ml/min Est GFR (Non-Af Amer) 109.2 ml/min BUN/Creatinine Ratio 10.4 (10-20) Glucose 77 (70-99(Fasting)) mg/dl Calcium 8.2 L (8.6-10.3) mg/dl Magnesium 2.0 (1.7-2.4) mg/dl Total Bilirubin 0.4 (0.2-1.0) mg/dl AST 219 H (13-39) U/L ALT 96 H (7-52) U/L Alkaline Phosphatase 79 (34-104) U/L Total Protein 8.1 (6.0-8.3) gm/dl Albumin 4.9 (3.4-5.0) gm/dl Globulin 3.2 (2.5-4.0) gm/dl Albumin/Globulin Ratio 1.5 (0.9-2) HCG, Qual Negative (Negative) Urine Color Yellow Urine Appearance Clear (Clear) Urine pH 5.5 (4.5-7.5) Ur Specific [place] 1.019 (1.000-1.030) Urine Protein 2+ H (Negative) Urine Glucose (UA) Negative (Negative) Urine Ketones 4+ H (Negative) Urine Blood Negative (Negative) Urine Nitrite Negative (Negative) Urine Bilirubin Negative (Negative) Urine Urobilinogen Negative (Negative) Ur Leukocyte Esterase Negative (Negative) Urine WBC (Auto) 0-5 (0-5) /hpf Urine RBC (Auto) 0-2 (0-2) /hpf U Hyaline Cast (Auto) 3-5 H (0-2) /lpf U Epithel Cells (Auto) 3-5 H (0-2) /hpf Urine Bacteria (Auto) 1+ H (None Seen) Ethyl Alcohol mg/dL 498.9 H (<10.0) mg/dl MDM Narrative Prior records/ancillary studies reviewed. Triage Nursing notes reviewed. Additional history obtained from family. The patient's history was concerning for alcoholism requesting detox Differential diagnosis: Etiologies such as alcoholism, alcohol intoxication, toxicologic, infection, hypoglycemia, electrolyte abnormalities, cardiac sources, intracerebral event, neurologic, as well as others were entertained. Physical examination: As above. The patient is clinically intoxicated. no trauma noted. ER treatment provided: Monitoring An order was placed for continuous cardiac monitoring. The monitor shows a rate of 60-100 with a sinus rhythm. Aspiration precautions Banana bag, IV fluids The patient was frequently reassessed. Diagnostic interpretation by me: Cardiac monitoring did not reveal any evidence of dysrhythmia. The labs Independently Interpreted by myself revealed minimally elevated LFTs most likely from alcoholism. The patient's blood alcohol level was 498 mg/dL. Consultation: Medicine was consulted and the case was discussed. Patient will be admitted to the medical service. This appears to be consistent with alcoholism. Patient is willing to stay for detox. Medicine was consulted case discussed. She will be admitted to the medical service. By the evaluation outlined above emergent etiologies such as trauma, infection, hypoglycemia, electrolyte abnormalities, cardiac sources, intracerebral event, neurologic,as well as others were deemed relatively unlikely. The chart was completed utilizing Hel[employer]ter Speech voice recognition software. Grammatical errors, random word insertions, pronoun errors, and incomplete sentences are an occassional consequence of this system due to software limitations, ambient noise, and hardware issues. Any formal questions or concerns about the content, text, or information contained within the body of this dictation should be directly addressed to the physician promotions assistant sales marketing for clarification. Impression & Plan Alcoholic ketoacidosis, Alcohol dependence, Alcohol abuse Discharge Plan Visit Data Chief Complaint: Alcohol Intoxication Stated Complaint: ALCOHOL INTOXICATION ED Provider: Tin Alfaro ED Midlevel Provider: Shannen Stratton Discharge Problem: Alcoholic ketoacidosis, Alcohol dependence, Alcohol abuse Patient Disposition: Admitted As Inpatient Condition: Good Forms Stand Alone Forms: [employer] Prescriptions Prescriptions: No Action ondansetron HCl 4 mg tablet 4 mg PO Q6 PRN (Reason: Nausea) hydroxyzine pamoate 50 mg capsule 50 mg PO BID PRN (Reason: Anxiety) Rx Instructions: PER EXT MED HX--BID PRN, PER [facility]--25 MG Q6H PRN. amitriptyline 50 mg tablet 25 mg PO HS PRN (Reason: Sleep) acetaminophen [Tylenol Extra Strength] 500 mg Tablet 500 - 1,000 mg PO Q6H PRN (Reason: Pain) buspirone 10 mg tablet 10 mg PO TID PRN (Reason: Anxiety) Rx Instructions: rarely taking per patient folic acid 1 mg Tablet 1 mg PO DAILY albuterol sulfate [Ventolin HFA] 90 mcg/actuation Hfa Aerosol Inhaler 2 puff INHALATION QID PRN (Reason: Shortness Of Breath Or Wheezing) thiamine HCl (vitamin B1) 100 mg Tablet 100 mg PO DAILY dextroamphetamine-amphetamine 20 mg tablet 20 mg PO TID gabapentin 300 mg capsule 300 mg PO TID Referrals Referrals: Aj Gaston MD [Primary Care Provider] -
[2024-03-15 22:27] LABS: Albumin Globulin Ratio 1.5 (0.9-2); Albumin Level 4.9 gm/dl (3.4-5.0); BUN Creatinine Ratio 10.4 (10-20); Bilirubin,Total 0.4 mg/dl (0.2-1.0); Calcium 8.2 mg/dl (8.6-10.3); Creatinine Clr Calc Pharmacy 95.4 ml/min; Est GFR (African American) 126.5 ml/min; Est GFR (Non-African American) 109.2 ml/min; Globulin 3.2 gm/dl (2.5-4.0); Potassium 3.8 mmol/L (3.5-5.1); Pregnancy Test, Serum Negative (Negative); Total Protein 8.1 gm/dl (6.0-8.3)
[2024-03-15] MEDS: NICOTINE 21 MG/24 HR TDSY TD STA (22:57)
[2024-03-15] MEDS: MULTI-VITAMIN INFUSION 10 ML, THIAMINE HCL 100 MG, FOLIC ACID 1 MG in SODIUM CHLORIDE 0... IV ONE (22:57)
[2024-03-15 23:02] LABS: Appearance Urine Clear (Clear); Bacteria Urine Automated 1+ (None Seen); Bilirubin Urine Negative (Negative); Blood Urine Negative (Negative); Color Urine Yellow; Glucose Urine UA Negative (Negative); Ketones Urine 4+ (Negative); Leukocyte Esterase Urine Negative (Negative); Nitrite Urine Negative (Negative); Protein Urine 2+ (Negative); RBC Urine Automated 0-2 /hpf (0-2); Specific Gravity Urine 1.019 (1.000-1.030); Urobilinogen Urine Negative (Negative); WBC Urine Automated 0-5 /hpf (0-5); pH Urine 5.5 (4.5-7.5)
[2024-03-16] MEDS ORDERED: Ativan IV Alcohol Withdrawal--Active Protocol IV PRN (00:33)
[2024-03-16] MEDS ORDERED: LORazepam 3 MG in SYRINGE 1.5 ML IV PRN (00:33)
[2024-03-16] MEDS ORDERED: LORazepam 2 MG in SYRINGE 1 ML IV PRN (00:33)
[2024-03-16] MEDS ORDERED: PROMETHAZINE HCL 6.25 MG in SODIUM CHLORIDE 0.9% 50 ML IV PRN (00:40)
[2024-03-16] MEDS ORDERED: PROMETHAZINE HCL 6.25 MG in SODIUM CHLORIDE 0.9% 50 ML IV STA ×2 (00:40→01:25)
[2024-03-16] MEDS: PROMETHAZINE 6.25 MG/50.25 ML BAG IV STA ×2 (00:56→01:39)
[2024-03-16] MEDS: POTASSIUM CHLORIDE 20 MEQ in LACTATED RINGER'S 1,000 ML IV ONE (01:16)
[2024-03-16 01:21] LABS: Prothrombin Time 10.6 Seconds (9.0-12.0)
--- NOTE | 2024-03-16 01:27 | History & Physical Report ---
Date of Service March 16, 2024 Assessment & Plan (1) Alcohol withdrawal: Plan: Alcohol withdrawal: Hypotension secondary to hypovolemia, AGMA secondary to above Alcoholic hepatitis, likely good prognosis on Maddrey's DF with PT within normal limits chronic anemia, current hemoglobin better than baseline secondary to hemoconcentration anxiety/mood disorder, at baseline ongoing tobacco abuse PCU given hypotension IVF, hold home diuretic until patient euvolemic MELODIE S, DT precautions Social service re: alcohol rehab placement post detox Nicotine replacement therapy DVT prophylaxis. SCDs Re: Thrombocytopenia Full code Patient mother requesting updates from providers. Ms. Jessenia Bauer, contact #[phone]. Text document was generated using [employer] voice recognition software. It may contain grammatical or spelling errors. Kindly contact undersigned for clarification of any documentation item in question. History of Present Illness Chief Complaint: Detox Primary Care Provider: Aj Gaston MD History obtained from patient and records. Medical history significant for ADHD, anxiety/mood disorder, fatty liver as per records, chronic pancytopenia (baseline hemoglobin of 11), ongoing tobacco/alcohol abuse. Last confinement December 2023 for alcohol withdrawal. Patient discharged home. Patient started drinking again last month due to personal stressors. Patient confined at [facility] inpatient rehab few weeks ago and was discharged ho hi last week. Patient comes to detox following request of friend and family. Patient denies headache, chest pain, SOB, unusual abdominal pain. Poor appetite with nausea emesis symptoms. Lowest SBP at the ER is noted to be 90s. Medical Historyas above Surgical History : Hand surgery, dental surgery Family History : Alcoholism, A-fib, dementia Personal/Social history : 1 pack daily, alcohol abuse, currently unemployed Allergies Allergy/AdvReac Type Severity Reaction Status Date / Time nickel Allergy Rash Verified 01/06/24 16:22 Home Medications Medication Instructions Recorded Confirmed Type acetaminophen 500 mg tablet 500 - 1,000 mg PO Q6H PRN Pain 08/14/23 03/15/24 History (Tylenol Extra Strength) albuterol sulfate 90 mcg/actuation 2 puff inhalation QID PRN 08/14/23 03/15/24 History aerosol inhaler (Ventolin HFA) Shortness Of Breath Or Wheezing gabapentin 300 mg capsule 300 mg PO TID 01/06/24 03/15/24 History amitriptyline 100 mg tablet 100 mg PO HS PRN Sleep 03/15/24 03/15/24 History docosanol 10 % topical cream 1 applic topical UD PRN Sleep 03/15/24 03/15/24 History hydroxyzine pamoate 100 mg capsule 100 mg PO TID 03/15/24 03/15/24 History lorazepam 1 mg tablet 1 mg PO DAILY PRN Anxiety 03/15/24 03/15/24 History melatonin 10 mg tablet 10 mg PO HS Sleep 03/15/24 03/15/24 History multivitamin 1 tab PO DAILY 03/15/24 03/15/24 History propranolol 10 mg tablet 10 mg PO TID PRN Anxiety 03/15/24 03/15/24 History sertraline 50 mg tablet 50 mg PO QAM 03/15/24 03/15/24 History torsemide 10 mg tablet 10 mg PO QAM 03/15/24 03/15/24 History Past Med/Surg History Problem List (Updated 03/16/24 @ 05:28 by Jimi Zavala MD) Alcohol withdrawal Alcoholic ketoacidosis (Acute) Contusion (Acute) Alcoholic intoxication (Acute) Alcohol abuse (Acute) Weakness (Acute) Hypomagnesemia (Acute) Hallucinations (Acute) Alcohol abuse (Acute) S/P nasal surgery septoplasty and rhinoplasty-both w/Dr. Castañeda Allergic rhinitis Abnormal uterine bleeding ADD (attention deficit disorder) Insomnia Restless leg Anxiety and depression (Chronic) Fatty liver (Chronic) Alcohol dependence (Chronic) Medical History Tobacco use disorder Intractable nausea and vomiting Alcohol withdrawal Depression Anxiety Surgical History H/O wisdom tooth extraction Family History Aunt Breast cancer, Onset Age: 65 paternal Asthma maternal Grandfather (Paternal) Prostate cancer Aunt Allergies maternal Family/Other Allergies cousins Asthma cousins Other No family history of adverse response to anesthesia No family history of bleeding disorder Denies family history of Ovarian cancer Colorectal cancer Social History Smoking Status: Current every day smoker Tobacco Type: E-cigarettes / Vaping Age Started Using Tobacco: 20; packs per day: 0.5; Second Hand Exposure: No; Do You Dip or Chew Tobacco: No; Hx Alcohol Use: Yes Alcohol type: hard liquor Hx Substance Use: No Preferred Language: Albanian 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 Ability: Effective Surface Supervisor Required: No Beliefs That Will Affect Care: None marital status: Single Current Living Situation: Alone Other Information That Helps Us Care for You: No Feels Safe at Home: Yes Safety Concerns: Feels Safe At This Time Assistive Devices: None Review of Systems Review of Systems: As per HPI, all other systems reviewed and negative Physical Exam Physical Exam: GENERAL: Anxious, uncomfortable, alcoholic fetor, no respiratory distress SKIN: Pallor, warm HEENT: Pale palpebral conjunctivae, no ptosis, dry buccal mucosa NECK : Supple, no tenderness CHEST : CTA, no tenderness HEART : RRR, no obvious murmurs ABDOMEN: Some distention, nontender EXTREMITIES : No LE swelling/tenderness, no other conspicuous deformities noted NEUROLOGIC : Coherent, no facial asymmetry, gait and stance not assessed Results & Data Results & Data Vital Signs (Past 12 Hours) Vital Signs Temp Pulse Pulse Resp BP BP Pulse Ox 03/16/24 01:15 96 H 03/16/24 00:00 92 H 17 105/72 96 03/15/24 23:57 91 H 17 97 03/15/24 23:42 97 H 17 99 03/15/24 23:36 99 H 14 95/70 L 97 03/15/24 23:17 100 H 22 99 03/15/24 22:35 99 H 19 97/60 L 96 03/15/24 22:20 15 99 03/15/24 21:54 99 03/15/24 21:53 16 98 03/15/24 21:47 24 97 03/15/24 21:32 99 H 14 99 03/15/24 21:29 96 H 15 98 03/15/24 21:18 104 H 03/15/24 21:17 101 H 20 112/84 97 03/15/24 20:58 36.6 C 116 H 18 104/63 96 O2 Del Method 03/16/24 01:15 03/16/24 00:00 Room Air 03/15/24 23:57 03/15/24 23:42 03/15/24 23:36 03/15/24 23:17 03/15/24 22:35 03/15/24 22:20 03/15/24 21:54 Room Air 03/15/24 21:53 03/15/24 21:47 03/15/24 21:32 03/15/24 21:29 03/15/24 21:18 03/15/24 21:17 Room Air 03/15/24 20:58 Room Air Laboratory Results Laboratory Results WBC 4.71 K/ul (4.8-10.8) L 03/15/24 21: RBC 3.89 M/uL (4.20-5.40) L 03/15/24 21:27 Hgb 12.7 g/dl (12.0-16.0) 03/15/24 21: Hct 38.4 % (37.0-47.0) 03/15/24 21: MCV 98.7 fL (80.0-100.0) 03/15/24 21: MCH 32.6 pg (25.0-34.0) 03/15/24 21: MCHC 33.1 g/dL (32.0-36.0) 03/15/24 21: RDW Std Deviation 48.5 fL (36.4-46.3) H 03/15/24 21: RDW Coeff of Edgar 13.2 % (11.5-14.5) 03/15/24 21: Plt Count 241 K/uL (130-400) 03/15/24 21: MPV 9.1 fL (9.4-12.4) L 03/15/24: Immature Gran % (Auto) 1.3 % 03/15/24 21: Neut % (Auto) 56.6 % 03/15/24: Lymph % (Auto) 35.9 % 03/15/24: Pitt % (Auto) 4.7 % 03/15/24: Eos % (Auto) 0.2 % 03/15/24: Baso % (Auto) 1.3 % 03/15/24: Neut # (Auto) 2.67 K/uL (1.40-6.50) 03/15/24 21: Lymph # (Auto) 1.69 K/uL (1.20-3.40) 03/15/24 21: Pitt # (Auto) 0.22 K/uL (0.11-0.59) 03/15/24: Eos # (Auto) 0.01 K/uL (0.00-0.50) 03/15/24 21: Baso # (Auto) 0.06 K/uL (0.00-0.20) 03/15/24: Immature Gran # (Auto) 0.06 K/uL (0.01-0.20) 03/15/24 21: PT 10.6 Seconds (9.0-12.0) 03/15/24: INR 1.0 (0.9-1.1) 03/15/24: Sodium 135 mmol/L (136-145) L 03/15/24: Potassium 3.8 mmol/L (3.5-5.1) 03/15/24: Chloride 96 mmol/L (98-107) L 03/15/24: Carbon Dioxide 11 mmol/L (21-32) L 03/15/24: Anion Gap 28 (3-11) H 03/15/24: BUN 7 mg/dl (6-23) 03/15/24: Creatinine 0.67 mg/dl (0.6-1.2) 03/15/24: Est Cr Clr Drug Dosing 95.4 ml/min 03/15/24: Est GFR ( Amer) 126.5 ml/min 03/15/24: Est GFR (Non-Af Amer) 109.2 ml/min 03/15/24 21: BUN/Creatinine Ratio 10.4 (10-20) 03/15/24: Glucose 77 mg/dl (70-99(Fasting)) 03/15/24: Calcium 8.2 mg/dl (8.6-10.3) L 03/15/24: Magnesium 2.0 mg/dl (1.7-2.4) 03/15/24: Total Bilirubin 0.4 mg/dl (0.2-1.0) 03/15/24: AST 219 U/L (13-39) H 03/15/24: ALT 96 U/L (7-52) H 03/15/24 21: Alkaline Phosphatase 79 U/L (34-104) 03/15/24 21: Total Protein 8.1 gm/dl (6.0-8.3) 03/15/24 21: Albumin 4.9 gm/dl (3.4-5.0) 03/15/24: Globulin 3.2 gm/dl (2.5-4.0) 03/15/24: Albumin/Globulin Ratio 1.5 (0.9-2) 03/15/24 21: HCG, Qual Negative (Negative) 03/15/24: Urine Color Yellow 03/15/24 22: Urine Appearance Clear (Clear) 03/15/24 22: Urine pH 5.5 (4.5-7.5) 03/15/24 22:30 Ur Specific [place] 1.019 (1.000-1.030) 03/15/24 22:30 Urine Protein 2+ (Negative) H 03/15/24 22:30 Urine Glucose (UA) Negative (Negative) 03/15/24 22:30 Urine Ketones 4+ (Negative) H 03/15/24 22:30 Urine Blood Negative (Negative) 03/15/24 22: Urine Nitrite Negative (Negative) 03/15/24 22: Urine Bilirubin Negative (Negative) 03/15/24 22: Urine Urobilinogen Negative (Negative) 03/15/24 22:30 Ur Leukocyte Esterase Negative (Negative) 03/15/24 22:30 Urine WBC (Auto) 0-5 /hpf (0-5) 03/15/24 22:30 Urine RBC (Auto) 0-2 /hpf (0-2) 03/15/24 22:30 U Hyaline Cast (Auto) 3-5 /lpf (0-2) H 03/15/24 22:30 U Epithel Cells (Auto) 3-5 /hpf (0-2) H 03/15/24 22:30 Urine Bacteria (Auto) 1+ (None Seen) H 03/15/24 22:30 Ethyl Alcohol mg/dL 498.9 mg/dl (<10.0) H 03/15/24 21: Diagnostic Findings EKG as per my interpretation : Rate 95, NSR, normal axis, no ischemia
[2024-03-16] MEDS: GABAPENTIN 300 MG CAP PO STA (01:38)
[2024-03-16] MEDS: LORazepam 0.5 MG in SYRINGE 0.25 ML IV STA (04:30)
[2024-03-16 07:32] LABS: Basophils # (auto) 0.04 K/uL (0.00-0.20); Basophils % (auto) 0.7 %; Eosinophils # (auto) 0.03 K/uL (0.00-0.50); Eosinophils % (auto) 0.6 %; Hematocrit (blood only) 33.5 % (37.0-47.0); Hemoglobin 11.2 g/dl (12.0-16.0); Immature Granulocytes # (auto) 0.05 K/uL (0.01-0.20); Immature Granulocytes % (auto) 0.9 %; Lymphocytes # (auto) 1.64 K/uL (1.20-3.40); Lymphocytes % (auto) 30.1 %; Mean Corpuscular Hemoglobin 32.7 pg (25.0-34.0); Mean Corpuscular Hgb Conc 33.4 g/dL (32.0-36.0); Mean Platelet Volume 9.2 fL (9.4-12.4); Monocytes # (auto) 0.18 K/uL (0.11-0.59); Monocytes % (auto) 3.3 %; Neutrophils % (auto) 64.4 %; Platelet Count 180 K/uL (130-400); RDW Coefficient of Variation 13.2 % (11.5-14.5); Red Blood Count 3.42 M/uL (4.20-5.40); White Blood Count 5.44 K/ul (4.8-10.8)
[2024-03-16 07:33] LABS: Base Excess VBG -8.5 mEq/L; HCO3 VBG 17 mmol/L; Oxygen Saturation VBG 77.7 %; PCO2 VBG 32 mmHg (38-50); PO2 VBG 47 mmHg; pH VBG 7.32 (7.36-7.41)
[2024-03-16] MEDS: PROMETHAZINE HCL 12.5 MG in SODIUM CHLORIDE 0.9% 50 ML IV PRN (07:45)
[2024-03-16 07:49] LABS: Albumin Globulin Ratio 1.6 (0.9-2); Albumin Level 4.1 gm/dl (3.4-5.0); BUN Creatinine Ratio 8.9 (10-20); Bilirubin,Total 0.6 mg/dl (0.2-1.0); Calcium 7.8 mg/dl (8.6-10.3); Creatinine Clr Calc Pharmacy 114.2 ml/min; Est GFR (African American) 134.2 ml/min; Est GFR (Non-African American) 115.8 ml/min; Globulin 2.5 gm/dl (2.5-4.0); Potassium 3.9 mmol/L (3.5-5.1); Total Protein 6.6 gm/dl (6.0-8.3)
[2024-03-16 08:47] LABS: Phosphorus 1.2 mg/dl (2.5-4.9)
[2024-03-16] MEDS: CALCIUM CARBONATE 500 MG CHEWABLE TAB PO PRN (08:53)
[2024-03-16] MEDS: AMITRIPTYLINE HCL 100 MG TAB PO PRN (08:53)
[2024-03-16] MEDS: SERTRALINE HCL 50 MG TABLET PO SCH (08:53)
[2024-03-16] MEDS: GABAPENTIN 300 MG CAP PO SCH (08:54)
[2024-03-16] MEDS: hydrOXYzine HCl 25 MG TAB PO PRN (08:54)
[2024-03-16] MEDS ORDERED: POTASSIUM PHOS 3 MMOL/1 ML INFUSION IV STA (08:56)
[2024-03-16] MEDS ORDERED: NON-FORMULARY MEDICATION (Multivitamin Tablet) PO SCH (09:00)
--- OUTSIDE RECORDS SUMMARY | 2024-03-16 09:41 | External Medical Summary | Summary of Care ---
Author Name Unknown Organization [facility] Address [address] [place] [address] Phone [phone] Care Team Providers Care Mail List Processor Name Role Phone Marilin MICHAELS MD, Aj Westfall Primary Care Provider [phone] Reason for Visit * Reason Onset Date Comments Medication Refill 03/06/2024 Encounter Details Date Type Department Care Team (Late st Contact Info) Description 03/06/2024 Refill Family Practice [facility] [address] [place] [address] Aj Gaston III, MD [address] [place] [address] Allergies Active Allergy Reactions Criticality Noted Date Comments Nickel Rash 06/01/2018 documented as of this encounter (statuses as of 03/07/2024) Medications Medication Sig Dispensed Refills Start Date End Date Status Amitriptyline HCl 50 MG Oral Tablet (Elavil) Take 2 Tablets by mouth at bedtime. Active Acetaminophen 500 MG Oral Tablet Take 1 Tablet by mouth every 6 hours as needed. Active Thiamine HCl 100 MG Oral Tablet Take 1 Tablet by mouth in the morning. 05/10/2023 Active Folic Acid 1 MG Oral Tablet Take 1 Tablet by mouth in the morning. As needed. 05/10/2023 Active hydrOXYzine HCl 25 MG Oral Tablet Take 1 Tablet by mouth every 6 hours as needed for Anxiety. 40 Tablet 2 06/23/2023 Active Additional Information Patient taking differently: 100 mgOral Q6H PRN, Anxiety, Reported on 02/25/2024 valACYclovir HCl 1 GM Oral Tablet (Valtrex) TAKE 1 TABLET BY MOUTH IN THE MORNING AND 1 TAB BEFORE BEDTIME FOR 7 DAYS 14 Tablet 1 01/14/2024 Active Gabapentin 300 MG Oral Capsule (Neurontin) 3x daily 90 Capsule 5 01/14/2024 Active Sertraline HCl 50 MG Oral Tablet (Zoloft) Take 1 Tablet by mouth in the morning. Active Torsemide 10 MG Oral Tablet (Demadex)Indicat ions:Pedal edema Take 1 Tablet by mouth in the morning. 30 Tablet 02/25/2024 Active LORazepam 1 MG Oral Tablet (Ativan) 1 daily as needed anxiety 5 Tablet 03/07/2024 Active LORazepam 1 MG Oral Tablet (Ativan) 1 daily as needed anxiety 5 Tablet 01/14/2024 4 Discontinue d(Refill) documented as of this encounter (statuses as of 03/07/2024) Active Problems Problem Noted Date Diagnosed Date Major depressive disorder, recurrent episode, mo derate 11/15/2018 Depression with anxiety 10/19/2016 Malaise and fatigue 08/18/2010 Tobacco use disorder 11/02/2007 Elevated liver enzymes Migraine Insomnia documented as of this encounter (statuses as of 03/07/2024) Resolved Problems Problem Noted Date Diagnosed Date Resolved Date Alcohol abuse, in remission 04/24/2023 04/24/2023 Routine medical exam 08/18/2010 018 documented as of this encounter (statuses as of 03/07/2024) Immunizations Name Administration Dates Next Due Covid-19, Mrna, Lnp-s, Pf, B ivalent, 50 Mcg, IM, 12 yrs and above (Moderna) 09/23/2022 DTaP Dipth/Tet/Acell Pertussis (Infanrix), Peds 05/12/1988,03/05/1984,02/12/1983,12/11,1982 MMR - Measles/Mumps/Rubella Vaccine 11/28/1983 OPV - Polio Virus Vaccine (Oral) 988,03/05/1984,1982,10/09 PPD 09/16/2020, 0,07/26/2020,06/15 Pneumococcal Polysaccharide PPV23 (Pneumovax) 03/01/2019 TDAP (age 10 and older)(Boostrix) 06/04/2021 TDAP, Age 7 and older, IM (Adacel) 04/22/2015, documented as of this encounter Social History [...] encounter Miscellaneous Notes * Telephone Encounter - Kelsie Barrios MD - 03/07/2024 2:52 PM EDTSigned Prescriptions: Disp Refills LORazepam 1 MG Oral Tablet (Ativan) 5 Tabl*0 Si daily as needed anxiety Authorizing Provider: KELSIE BARRIOS * Telephone Encounter - Rob Guardado [facility] - 03/06/2024 11:50 AM EDT Pending Prescriptions: Disp Refills LORazepam 1 MG Oral Tablet (Ativan) 5 Tabl*0 Si daily as needed anxiety * Telephone Encounter - Rob Guardado [facility] - 03/06/2024 11:49 AM EDT I have reviewed the patients controlled substance dispensing history in the Prescription Drug Monitoring Program in compliance with the [facility] regulations before prescribing a controlled substance. PDMP checked on 03/06/2024. Pending Prescriptions: Disp Refills LORazepam 1 MG Oral Tablet (Ativan) 5 Tabl*0 Si daily as needed anxiety Last Visit: 02/25/2024 (in office), 09/03/2021 (telemedicine) Next Visit: 03/07/2024 Date medication was last filled: 01/14/2024 Date medication is due for refill: 01/18/2024 Pharmacy: [facility] [address] Is this request for a controlled substance? Yes and Urine Drug Screen Not completed Toxicology results: Results for orders placed or performed in visit on 06/12/20 TOX SCREEN, URINE, W/ CONFIRMATION Result Value Amphetamine POSITIVE (A) Benzodiazepines NEGATIVE Cannabinoids NEGATIVE Cocaine Metabolite NEGATIVE HYDROCODONE NEGATIVE Morphine / Codeine NEGATIVE METHADONE METABOLITE NEGATIVE OXYCODONE NEGATIVE TOX COMMENT THE ABOVE SCREENING RESULTS ARE PRESUMPTIVE AND CAN ONLY BE USED FOR MEDICAL PURPOSES. POSITIVE RESULTS REFLEX TO CONFIRMATORY TESTING. Cutoff Concentration Please approve if appropriate. Thanks, Rob Guardado Pharm.D. Clinical Pharmacist [facility] ([facility]) [phone] 03/06/2024, 11:49 AM * Telephone Encounter - Alea Ornelas CPhT - 03/06/2024 11:11 AM EDT Pt is asking for more than 5 pills and asking high priority since she is out of meds. Did you pend patient's preferred pharmacy and medication before forwarding?yes Pharmacy: [facility] [address] [place], [place] [address] Pending Prescriptions: Disp Refills LORazepam 1 MG Oral Tablet (Ativan) 5 Tabl*0 Si daily as needed anxiety Last Visit: 02/25/2024 (in office), 09/03/2021 (telemedicine) Next Visit: 04/13/2024 If no future appointments scheduled, and last appointment is greater than a year ago, please schedule patient for a follow-up appointment Last date the medication was ordered: 01/14/2024 Is this request for a controlled substance?Yes, What was the last refill date 01/14/2024 w/ quantity5 and dosage 1 MG and Urine Drug Screen was completed Urine Drug Screen: Results for orders placed [...] CONFIRMATORY TESTING. Cutoff Concentration Patient Phone Numbers [employer] [phone] Labs: Lab Results Component Value Date/Time CREAT 0.7 02/25/2024 03:31 PM CREAT 0.9 06/12/2020 12:23 PM POTASSIUM 4.4 02/25/2024 03:31 PM POTASSIUM 5.3 (H) 06/12/2020 12:23 PM TSH 1.72 04/27/2023 11:24 AM TSH 1.02 06/12/2020 12:23 PM LDLCALC 103 02/25/2024 03:31 PM LDLDIRECT 99 06/12/2020 12:23 PM ALT 27 02/25/2024 03:31 PM ALT 14 06/12/2020 12:23 PM HGBA1C 4.9 06/12/2020 12:23 PM documented in this encounter Plan of Treatment Upcoming Encounters Date Type Department Care Team (Late st Contact Info) Description 03/31/2024 2:45 PM EDT NeuroDiagnostic Study Neurophysiology [facility] [place] [address] [place] [address] Aj Carrera MD [address] [place] [address] 06/07/2024 4:40 PM EDT Office Visit [facility] [address] [place] [address] Aj Gaston III, MD [address] [place] [address] Health Maintenance Due Date Last Done Comments Hepatitis B (1 of 3 - 19+ 3-dose series) 2001 HPV/Co-Test 2012 COVID-19 Vaccine (2 - season) 2023 09/23/2022 Influenza Vaccine (FLU shot) (Season Ended) 2024 Mammogram 06/28/2024 06/28/2023, 06/21/2023 Depression Monitoring 07/28/2024 07/28/2023 Cervical Cancer Screening 08/27/2024 Pap Smear 08/27/2024 08/27/2021, 03/28 (Done elsewhere), 12/21/2014, Additional history exists Lipid Panel 02/24/2029 02/25/2024, 06/12/2020 DTaP,Tdap,and Td Vaccines (9 - Td [...] filedocumented as of this encounter Care Teams Mail List Processor Relationship Specialty Start Date End Date Aj Gaston III, MD [address] [place] [address] PCP - General Family Medicine 05/12/23 documented as of this encounter
--- OUTSIDE RECORDS SUMMARY | 2024-03-16 09:41 | External Medical Summary | Summary of Care ---
Author Name Unknown Organization [facility] Address [address] [place] [address] Phone [phone] Care Team Providers Care Pie Icer Machine Name Role Phone Marilin MICHAELS MD, Aj Westfall Primary Care Provider [phone] Reason for Visit * Reason Comments Follow Up Pitting edema to fee t - states swelling is better, but having numbness to both heels, and discoloration to feet Encounter Details Date Type Department Care Team (Late st Contact Info) Description 03/07/2024 1:20 PM EDT Office Visit Family Practice [facility] [address] [facility] [place] [address] Therese Perez PA-C [address] [place] [address] Elevated d-dimer*; Paresthesias; Alcohol abuse, in remission Allergies Active Allergy Reactions Criticality Noted Date [...] 3x daily 90 Capsule 5 01/14/2024 Active LORazepam 1 MG Oral Tablet (Ativan) 1 daily as needed anxiety 5 Tablet 01/14/2024 Active Sertraline HCl 50 MG Oral Tablet (Zoloft) Take 1 Tablet by mouth in the morning. Active Torsemide 10 MG Oral Tablet (Demadex)Indicatio ns:Pedal edema Take 1 Tablet by mouth in the morning. 30 Tablet 02/25/2024 Active documented as of this encounter (statuses [...] Former Cigarettes 0.5 20 Smokeless Tobacco: Never Comments:Vapes every day Alcohol Use Standard Drinks/Week Comments Not Currently [...] Sign Reading Time Taken Comments Blood Pressure 100/58 03/07/2024 1:24 PM EDT Pulse 84 03/07/2024 1:24 PM EDT Temperature 35.8 C (96.4 F) 03/07/2024 1:24 PM ED T Respiratory Rate 12 03/07/2024 1:24 PM EDT Oxygen Saturation - - Inhaled Oxygen Concentration - - Weight 58.3 kg (128 lb 8 oz) 03/07/2024 1:24 PM EDT Height - - Body Mass Index 22.05 05/17/2023 11:43 AM EDT documented in this encounter Progress Notes * Therese Perez PA-C - 03/07/2024 1:54 PM EDT Images from the original note were not included. History of Present Illness Emma Lundberg is a 43 year old female that presents for Follow Up (Pitting edema to feet - states swelling is better, but having numbness to both heels, and discoloration to feet) Patient is a 43-year-old female who presents today for follow-up on lower extremity edema. Was seenon the 24 of February had lab work done and was placed on Demadex. She notes the swelling in her lowerextremities is gone. Is concerned as she notes somewhat discoloration to her lower extremities frommid calf down. She also has some paresthesias she notes. Has a history of alcohol abuse. Had an elevated slightly D-dimer. She denies any chest pain or shortness of breath. Physical Exam Vitals: 03/07/24 1324 Temp: 35.8 C (96.4 F) Pulse: 84 Resp: 12 BP: 100/58 BP Readings from Last 3 Encounters: 03/07/24 100/58 02/25/24 94/68 01/14/24 104/74 Wt Readings from Last 3 Encounters: 03/07/24 58.3 kg (128 lb 8 oz) 02/25/24 59 kg (130 lb 0.6 oz) 01/14/24 59.1 kg (130 lb 6.4 oz) General: alert, healthy, no distress, well nourished, well developed, anxious, and cooperative Head: Normocephalic, No masses, lesions, tenderness or abnormalities Eye Exam: PERRLA, extraocular movements intact, conjunctiva are pink and non- injected, sclera clear Lungs: chest symmetric with normal AP diameter, no chest deformities noted, normal respiratory rateand rhythm, diaphragmatic excursion normal Extremities: less than 2 second capillary refill, no joint deformities, effusion, or inflammation, no clubbing, no cyanosis, mild discoloration of both lower extremities. Pulses are good in both lower extremities I have reviewed the following results: CMP and CBC Assessment and Plan Elevated d-dimer (Primary) - VASC DUPLEX VENOUS LE UNILAT; Future; Expected date: 03/08/2024 Paresthesias - EMG; Future; Expected date: 03/08/2024 Alcohol abuse, in remission Check-out note: Schedule doppler/emg Wrap-Up Check-out note: Schedule doppler/emg Time: I spent a total of 20-29 minutes (exact time 24 mins) on the date of service in preparation, delivery, and documentation of the care provided to Emma Lundberg excluding any time spent in the performance of separately billed services. documented in this encounter Nursing Notes * Brad Napier, RN - 03/07/2024 1:27 PM EDT Chief Complaint Patient presents with Follow Up Pitting edema to feet - states swelling is better, but having numbness to both heels, and discoloration to feet documented in this encounter Plan of Treatment Upcoming Encounters Date Type Department Care Team (Late st Contact Info) Description 03/07/2024 3:00 PM EDT Imaging Vascular Lab, [facility] [address] [facility] [place] [address] 03/31/2024 2:45 PM EDT NeuroDiagnostic Study Neurophysiology [facility] [address] [facility] [place] [address] Aj Carrera MD [address] [facility] [place] [address] 06/07/2024 4:40 PM EDT Office Visit Family Practice [facility] [address] [facility] [place] [address] Marilin Aj MICHAELS MD [address] [place] [address] Scheduled Orders Name Type Priority Associated Diagnoses Orde r Schedule VASC DUPLEX VENOUS LE BILAT Medical Imaging STAT Elevated d-dimer Expected: 03/08/2024, Expires: 04/06/2025 Health Maintenance Due Date Last Done Comments Hepatitis B (1 of 3 - 19+ 3-dose series) 2001 HPV/Co-Test 2012 COVID-19 Vaccine ( - 2022- season) 2023 [...] as of this encounter Visit Diagnoses Diagnosis Elevated d-dimer- Primary Abnormal coagulation profile Paresthesias Disturbance of skin sensation Alcohol abuse, in remission Nondependent alcohol abuse, in remission documented in this encounter Care Teams Pie Icer Machine Relationship Specialty Start Date End Date Aj Gaston III, MD [address] [place] [address] PCP - General Family Medicine 05/12/23 documented as of this encounter
--- OUTSIDE RECORDS SUMMARY | 2024-03-16 09:42 | External Medical Summary ---
Author Name Unknown Address Unknown Organization [id number] [place] [address] [place] [address] Laboratory Report Ordering Provider Test Date Status ELISEOSELENAFADY 02/25/2024 15:31:17 Final Exclude Heart Failure: <300 pg/mL
Diagnose Heart Failure:
Age <50 yr: >450 pg/mL
50-75 yr: >900 pg/mL
>75 yr: >1800 pg/mL
GFR is 30-59 mL/min: >1200 pg/mL or Age- adjusted values
GFR <30 mL/min: do not use, not reliable

Prognostic threshold: 1000 pg/mL Observation Date Value Abnormality Reference (Units ) Status BNP, Pro-hormone 02/25/2024 15:31:17 68 <30 0 (pg/mL) Final [place]forming Location [facility] [place] [address] [place] [address]
--- OUTSIDE RECORDS SUMMARY | 2024-03-16 09:42 | External Medical Summary | Summary of Care ---
Author Name Unknown Organization [facility] Address [address] [place] [address] Phone [phone] Care Team Providers Care Rail Tractor Operator Name Role Phone Marilin MICHAELS MD, Aj Westfall Primary Care Provider [phone] Reason for Visit * Reason Onset Date Comments Hospital Follow-Up Patient was h ere for hosp d/c 01/10/2024, patient was admitted for detox and fell down stairs and was banged up pretty bad, pt states had a panic attack today, pt states is all over the place right now, crying this morning since early and patient rates anxiety on scale of 1-10 as an 11 right now. Pt states does not feel like drinking currently. Hospital Follow-Up 01/14/2024 Encounter Details Date Type Department Care Team (Late st Contact Info) Description 01/14/2024 11:00 AM EDT Office Visit [facility] [address] [facility] [place] [address] Aj Gaston III, MD [address] [place] [address] Hospital discharge follow-up*; Alcohol dependence with unspecified alcohol-induced disorder (HCC); Anxiety Allergies Active Allergy Reactions Criticality Noted Date Comments Nickel Rash 06/01/2018 documented as of this encounter (statuses as of 01/18/2024) Medications Medication Sig Dispensed Refills Start Date [...] at bedtime. 30 Tablet 6 07/13/2023 Active Naltrexone HCl 50 MG Oral Tablet (Revia) Take 1 Tablet by mouth in the morning. 30 Tablet 6 01/14/2024 Active valACYclovir HCl 1 GM Oral Tablet (Valtrex) TAKE 1 TABLET BY MOUTH IN THE MORNING AND 1 TAB BEFORE BEDTIME FOR 7 DAYS 14 Tablet 1 01/14/2024 Active Gabapentin 300 MG Oral Capsule (Neurontin) 3x daily 90 Capsule 5 01/14/2024 Active LORazepam 1 MG Oral Tablet (Ativan) 1 daily as needed anxiety 5 Tablet 0 01/14/2024 Active valACYclovir HCl 1 GM Oral Tablet (Valtrex) TAKE 1 TABLET BY MOUTH IN THE MORNING AND 1 TAB BEFORE BEDTIME FOR 7 DAYS 14 Tablet 1 07/12/2023 Discontinue d(Refill) Gabapentin 300 MG Oral Capsule (Neurontin) 3x daily 270 Capsule 0 11/09/2023 4 Discontinue d(Refill) documented as of this encounter (statuses as of 01/18/2024) Active Problems Problem Noted Date Diagnosed Date Major depressive disorder, recurrent episode, mo derate 11/15/2018 Depression with anxiety 10/19/2016 Malaise and fatigue 08/18/2010 Tobacco use disorder 11/02/2007 Elevated liver enzymes Migraine Insomnia documented as of this encounter (statuses as of 01/18/2024) Resolved Problems Problem Noted Date Diagnosed Date Resolved Date Alcohol abuse, in remission 04/24/2023 04/24/2023 Routine medical exam 08/18/2010 018 documented as of this encounter (statuses as of 01/18/2024) Immunizations Name Administration Dates Next Due Covid-19, [...] Sign Reading Time Taken Comments Blood Pressure 104/74 01/14/2024 11:11 AM EDT Pulse 82 01/14/2024 11:11 AM EDT Temperature 36.3 C (97.4 F) 01/14/2024 11:11 AM E DT Respiratory Rate 16 01/14/2024 11:11 AM EDT Oxygen Saturation 99% 01/14/2024 11:11 AM EDT Inhaled Oxygen Concentration - - Weight 59.1 kg (130 lb 6.4 oz) 01/14/2024 11:11 AM EDT Height - - Body Mass Index 22.37 05/17/2023 11:43 AM EDT documented in this encounter Progress Notes * Marilin MICHAELS, Aj Westfall MD - 01/14/2024 11:47 AM EDT Emma Lundberg is a 43 year old female. Chief Complaint Patient presents with Hospital Follow-Up Patient was here for hosp d/c 01/10/2024, patient was admitted for detox and fell down stairs and was banged up pretty bad, pt states had a panic attack today, pt states is all over the place right now, crying this morning since early and patient rates anxiety on scale of 1-10 as an 11 right now. Pt states does not feel like drinking currently. Hospital Follow-Up HPI: Hospital discharge follow-up alcohol dependence intoxication anxiety followed by [facility] difficulty sleeping is having panic episodes no vomiting no hematemesis no blood in her stools denies abdominal pain Admitted January 05 discharge January 09 PMH: Patient Active Problem List Diagnosis Code [...] by mouth at bedtime. 30 Tablet 6 Naltrexone HCl 50 MG Oral Tablet (Revia) Take 1 Tablet by mouth in the morning. 30 Tablet 6 valACYclovir HCl 1 GM Oral Tablet (Valtrex) TAKE 1 TABLET BY MOUTH IN THE MORNING AND 1 TAB BEFORE BEDTIME FOR 7 DAYS 14 Tablet 1 Gabapentin 300 MG Oral Capsule (Neurontin) 3x daily 90 Capsule 5 LORazepam 1 MG Oral Tablet (Ativan) 1 daily as needed anxiety 5 Tablet 0 No current facility-administered medications for this visit. Review of patient's allergies indicates: Allergen Reactions Nickel Rash Past Medical History: Diagnosis Date Alcohol abuse, in remission Elevated liver enzymes Insomnia Migraine NONE Past Surgical History: Procedure Laterality Date DENTAL SURGERY PROCEDURE NEC 09/27/1999 US GUIDED BREAST BIOPSY LEFT Left 07/12/2023 Objective: The patient is a 43 year old female BP 104/74 (BP Site: Left Arm, BP Position: Sitting, BP Cuff Size: Regular) | Pulse 82 | Temp 36.3 C (97.4 F) (Tympanic) | Resp 16 | Wt 59.1 kg (130 lb 6.4 oz) | SpO2 99% | BMI 22.37 kg/m | BSA 1.63 m General: alert and healthy Eye Exam: PERRLA, extraocular movements intact, conjunctiva [...] Z09 Hospital discharge follow-up (primary encounter diagnosis) F10.29 Alcohol dependence with unspecified alcohol-induced disorder (HCC) F41.9 Anxiety Total time 34 minutes PLAN: Begin naltrexone 50 mg daily check liver functions 1-2 weeks will give lorazepam 5 tablets maximum 1 per day till follow-up mental health appointment next week already scheduled as investigating detox sites Follow up in 2 week(s). Aj Gaston III, MD documented in this encounter Nursing Notes * Terri Ramos LPN - 01/14/2024 11:11 AM EDT Chief Complaint Patient presents with Hospital Follow-Up Patient was here for hosp d/c 01/10/2024, patient was admitted for detox and fell down stairs and was banged up pretty bad, pt states had a panic attack today, pt states is all over the place right now, crying this morning since early and patient rates anxiety on scale of 1-10 as an 11 right now. Pt states does not feel like drinking currently. documented in this encounter Plan of Treatment Upcoming Encounters Date Type Department Care Team (Late st Contact Info) Description 01/24/2024 1:00 PM EDT Office Visit [facility] [address] [place] [address] Aj Gaston III, MD [address] [place] [address] Scheduled Orders Name Type Priority Associated Diagnoses Orde r Schedule COMPREHENSIVE METABOLIC PANEL Lab Routine Hospital discharge follow-up Expected: 01/14/2024 (Approximate), Expires: 01/13/2025 Health Maintenance Due Date Last Done Comments Hepatitis B (1 of 3 - 19+ 3-dose series) 2001 HPV/Co-Test 2012 COVID-19 Vaccine (2 - 2022- season) 2023 09/23/2022 Influenza Vaccine (FLU shot) (Season Ended) 2024 Mammogram 06/28/2024 06/28/2023, 10/2022, 06/21/2023, Additional history exists Cervical Cancer Screening 08/27/2024 Pap Smear 08/27/2024 [...] discharge follow-up- Primary Other follow-up examination Alcohol dependence with unspecified alcohol-induced disorder (HCC) Anxiety Anxiety state, unspecified documented in this encounter Care Teams Rail Tractor Operator Relationship Specialty Start Date End Date Aj Gaston III, MD [address] [facility] [place] [address] PCP - General Family Medicine 05/12/23 documented as of this encounter"
--- OUTSIDE RECORDS SUMMARY | 2024-03-16 09:42 | External Medical Summary | Summary of Care ---
Author Name Unknown Organization [facility] Address [address] [place] [address] Phone [phone] Care Team Providers Care Dispatcher Electric Power Name Role Phone Marilin MICHAELS MD, Aj Westfall Primary Care Provider [phone] Reason for Visit * Reason Comments Acute Pt presents for katlyn ing edema 3 bilateral up to calf, tingling and turning purple towards the end of the day. Started about 2 weeks ago after recent alcohol detox (6 days) noticed indent on legs from pitting edema. Went to [facility] about 10 days ago. Has some pain when pressing on edema. Both feet purple in appearance and pt reports numbness and tingling. Encounter Details Date Type Department Care Team (Late st Contact Info) Description 02/25/2024 2:40 PM EDT Office Visit [facility] [address] [place] [address] Burt Sidhu MD [address] [place] [address] [place] [phone] Pedal edema*; Dyslipidemia, goal LDL below 100 Allergies Active Allergy Reactions Criticality Noted Date Comments Nickel Rash 06/01/2018 documented as of this encounter (statuses as of 02/25/2024) Medications Medication Sig Dispensed Refills Start Date End Date Status Amitriptyline HCl 50 MG Oral Tablet (Elavil) Take 2 Tablets by mouth at bedtime. Use as needed- may use 1/2 to full tab. Active Acetaminophen 500 MG Oral Tablet Take 1 Tablet by mouth every 6 hours as needed. Active Thiamine HCl 100 MG Oral Tablet Take 1 Tablet by mouth in the morning. 05/10/2023 Active Folic Acid 1 MG Oral Tablet Take 1 Tablet by mouth in the morning. 05/10/2023 Active hydrOXYzine HCl 25 MG Oral [...] morning. Active Torsemide 10 MG Oral Tablet (Demadex)Indicati ons:Pedal edema Take 1 Tablet by mouth in the morning. 30 Tablet 02/25/2024 Active VENTOLIN HFA 108 (90 Base) MCG/ACT inhaler INHALE 2 PUFFS BY MOUTH 4 TIMES A DAY 18 g 1 04/17/2019 4 Discontinue d(Patient preference/ discontinua tion) Ondansetron HCl 4 MG Oral TabletIndications :Nausea and vomiting, unspecified vomiting type Take 1 Tablet by mouth every 6 hours as needed for Nausea. 30 Tablet 04/24/2023 4 Discontinue d(Patient preference/ discontinua tion) Diclofenac Sodium 1 % External Gel (Voltaren) Apply topically to affected area as needed for Pain, Moderate. Apply to injured ankle as needed 150 g 5 05/17/2023 4 Discontinue d(Patient preference/ discontinua tion) busPIRone HCl 10 MG Oral Tablet (Buspar)Indicatio ns:DOLLY (generalized anxiety disorder) Take 1 Tablet by mouth in the morning and 1 Tablet at noon and 1 Tablet before bedtime. 90 Tablet 5 06/23/2023 4 Discontinue d(End of Procedure) Melatonin 10 MG Oral Tablet Take 1 Tablet by mouth at bedtime. 30 Tablet 6 07/13/2023 4 Discontinue d(Patient preference/ discontinua tion) Naltrexone HCl 50 MG Oral Tablet (Revia) Take 1 Tablet by mouth in the morning. 30 Tablet 6 01/14/2024 4 Discontinue d(Patient preference/ discontinua tion) documented as of this encounter (statuses as of 02/25/2024) Active Problems Problem Noted Date Diagnosed Date Major depressive disorder, recurrent episode, mo derate 11/15/2018 Depression with anxiety 10/19/2016 Malaise and fatigue 08/18/2010 Tobacco use disorder 11/02/2007 Elevated liver enzymes Migraine Insomnia documented as of this encounter (statuses as of 02/25/2024) Resolved Problems Problem Noted Date Diagnosed Date Resolved Date Alcohol abuse, in remission 04/24/2023 04/24/2023 Routine medical exam 08/18/2010 018 documented as of this encounter (statuses as of 02/25/2024) Immunizations Name Administration Dates Next Due Covid-19, [...] Sign Reading Time Taken Comments Blood Pressure 94/68 02/25/2024 2:49 PM EDT Pulse 91 02/25/2024 2:49 PM EDT Temperature 35.8 C (96.4 F) 02/25/2024 2:49 PM ED T Respiratory Rate - - Oxygen Saturation 94% 02/25/2024 2:49 PM EDT Inhaled Oxygen Concentration - - Weight 59 kg (130 lb 0.6 oz) 02/25/2024 2:49 PM EDT Height - - Body Mass Index 22.31 05/17/2023 11:43 AM EDT documented in this encounter Progress Notes * Burt Sidhu MD - 02/25/2024 2:51 PM EDT Emma just got out of [facility] for V[facility] abuse, and is having swelling in her feet, that worsens as the day goes on. She is on propranolol and atorvastatin and I am not sure why. They don't know. She is supposed to follow up with [facility]. Patient Active Problem List Diagnosis Tobacco use disorder Malaise and fatigue Depression with anxiety Elevated liver enzymes Migraine Insomnia Major depressive disorder, recurrent episode, moderate (HCC) Past Medical History: Diagnosis Date Alcohol abuse, in remission Elevated liver enzymes Insomnia Migraine NONE Past Surgical History: Procedure Laterality Date DENTAL SURGERY PROCEDURE NEC 09/27/1999 US GUIDED BREAST BIOPSY LEFT Left 07/12/2023 Review of patient's allergies indicates: Allergen Reactions Nickel Rash Social History Socioeconomic History Marital status: Single Spouse name: Not on file Number of children: Not on file Years of education: Not on file Highest education level: Not on file Occupational History Comment: [employer] Tobacco Use Smoking status: Former Current packs/day: 0.50 Average packs/day: 0.5 packs/day for 20.0 years (10.0 ttl pk-yrs) Types: Cigarettes Smokeless tobacco: Never Vaping Use Vaping status: Every Day Substances: Nicotine Substance and Sexual Activity Alcohol use: Not Currently Alcohol/week: 56.0 standard drinks of alcohol Types: 56 1.5 oz of liquor per week Comment: 8-10 shots per day Drug use: No Sexual activity: Yes Partners: Male Other Topics Concern Not on file Social History Narrative Not employed currently Social Determinants of Health Financial Resource Strain: Not on file Food Insecurity: No Food Insecurity (07/13/2023) Hunger Vital Sign Worried About Running Out of Food in the Last Year: Never true Ran Out of Food in the Last Year: Never true Transportation Needs: Not on file Physical Activity: Not on file Stress: Not on file Social Connections: Not on file Intimate Partner Violence: Not on file Housing Stability: Not on file Current Outpatient Medications Medication Sig Dispense Refill Amitriptyline HCl 50 MG Oral Tablet (Elavil) Take 2 Tablets by mouth at bedtime. Use as needed- mayuse 1/2 to full tab. Acetaminophen 500 MG Oral Tablet Take 1 Tablet by mouth every 6 hours as needed. Thiamine HCl 100 MG Oral Tablet Take 1 Tablet by mouth in the morning. Folic Acid 1 MG Oral Tablet Take 1 Tablet by mouth in the morning. hydrOXYzine HCl 25 MG Oral Tablet Take 1 Tablet by mouth every 6 hours as needed for Anxiety. (Patient taking differently: Take 4 Tablets by mouth every 6 hours as needed for Anxiety.) 40 Tablet 2 valACYclovir HCl 1 GM Oral Tablet (Valtrex) TAKE 1 TABLET BY MOUTH IN THE MORNING AND 1 TAB BEFORE BEDTIME FOR 7 DAYS 14 Tablet 1 Gabapentin 300 MG Oral Capsule (Neurontin) 3x daily 90 Capsule 5 LORazepam 1 MG Oral Tablet (Ativan) 1 daily as needed anxiety 5 Tablet 0 Sertraline HCl 50 MG Oral Tablet (Zoloft) Take 1 Tablet by mouth in the morning. No current facility-administered medications for this visit. O: Blood pressure 94/68, pulse 91, temperature 35.8 C (96.4 F), temperature source Tympanic, weight 59 kg (130 lb 0.6 oz), SpO2 94%, not currently . She has minimal swelling. Calves not tender. Erendira's negative. A: Pedal edema (Primary) - COMPREHENSIVE METABOLIC PANEL; Future; Expected date: 02/25/2024 - D-DIMER; Future; Expected date: 02/25/2024 - CBC; Future; Expected date: 02/25/2024 - Torsemide 10 MG Oral Tablet (Demadex); Take 1 Tablet by mouth in the morning. - BNP, NT-PRO; Future; Expected date: 02/25/2024 Dyslipidemia, goal LDL below 100 - LIPID PANEL WITH DIRECT LDL IF TG IS HIGH; Future; Expected date: 02/25/2024 Mother is curious why she is on a statin. documented in this encounter Plan of Treatment Upcoming Encounters Date Type Department Care Team (Late st Contact Info) Description 06/07/2024 4:40 PM EDT Office Visit [facility] [address] [facility] [place] [address] [facility]aston III, MD [facility] [address] Pending Results Name Type Priority Associated Diagnoses Date /Time D-DIMER Lab Routine Pedal edema 02/25/2024 3:31 PM EDT CBC Lab Routine Pedal edema 02/25/2024 3:31 PM EDT BNP, NT-PRO Lab Routine Pedal edema 02/25/2024 3:31 PM EDT LIPID PANEL WITH DIRECT LDL IF TG IS HIGH Lab Routine Dyslipidemia, goal LDL below 100 02/25/2024 3:31 PM EDT Scheduled Orders Name Type Priority Associated Diagnoses Orde r Schedule D-DIMER Lab Routine Pedal edema Expected: 02/25/2024 (Approximate), Expires: 02/24/2025 CBC Lab Routine Pedal edema Expected: 02/25/2024 (Approximate), Expires: 02/24/2025 BNP, NT-PRO Lab Routine Pedal edema Expected: 02/25/2024 (Approximate), Expires: 02/24/2025 LIPID PANEL WITH DIRECT LDL IF TG IS HIGH Lab Routine Dyslipidemia, goal LDL below 100 Expected: 02/25/2024, Expires: 02/24/2025 Health Maintenance Due Date Last Done Comments [...] as of this encounter Visit Diagnoses Diagnosis Pedal edema- Primary Edema Dyslipidemia, goal LDL below 100 Other and unspecified hyperlipidemia documented in this encounter Care Teams Dispatcher Electric Power Relationship Specialty Start Date End Date Aj Gaston III, MD [address] [place] [address] PCP - General Family Medicine 05/12/23 documented as of this encounter
--- OUTSIDE RECORDS SUMMARY | 2024-03-16 09:42 | External Medical Summary | Summary of Care ---
Author Name Unknown Organization [facility] Address [address] [place] [address] Phone [phone] Care Team Providers Care Therapist Name Role Phone Marilin MICHAELS MD, John E Primary Care Provider [phone] Reason for Visit * Reason Onset Date Comments Advice 01/26/2024 Needs to speak t o the nurse Encounter Details Date Type Department Care Team (Late st Contact Info) Description 01/26/2024 Telephone Family Practice [facility] [address] [place] [address] Aj Gaston III, MD [address] [place] [address] Advice (Needs to speak to the nurse) Allergies Active Allergy Reactions Criticality Noted Date Comments Nickel Rash 06/01/2018 documented as of this encounter (statuses as of 01/26/2024) Medications Medication Sig Dispensed Refills Start Date [...] needed anxiety 5 Tablet 0 01/14/2024 Active documented as of this encounter (statuses as of 01/26/2024) Active Problems Problem Noted Date Diagnosed Date Major depressive disorder, recurrent episode, mo derate 11/15/2018 Depression with anxiety 10/19/2016 Malaise and fatigue 08/18/2010 Tobacco use disorder 11/02/2007 Elevated liver enzymes Migraine Insomnia documented as of this encounter (statuses as of 01/26/2024) Resolved Problems Problem Noted Date Diagnosed Date Resolved Date Alcohol abuse, in remission 04/24/2023 04/24/2023 Routine medical exam 08/18/2010 018 documented as of this encounter (statuses as of 01/26/2024) Immunizations Name Administration Dates Next Due Covid-19, [...] encounter Miscellaneous Notes * Telephone Encounter - Saima Ann LPN - 01/26/2024 4:49 PM EDT Patient mother Jessenia calling back in stating that she was able to get her daughter to go to [facility] rehab in [place]. Cancelled appointment for Wednesday with Dr. Gaston. * Telephone Encounter - Octavia Anthony OSA - 01/26/2024 4:47 PM EDT Reason for patient's call: Patient's mother returning phone call to a nurse. Caller was transferred to [facility] at the nurse line. * Telephone Encounter - Abi Pierce LPN - 01/26/2024 9:19 AM EDT Mom calling with concern about pt. She is not taking her naltrexone, mom is not sure when she stop taking She is drinking vodka again as of last night. Pt refusing going to rehab in [place] at [facility] stating she needs to see dr Saul on Wednesday. If she goes into rehab she wont be able to see Dr Saul on Wednesday for lab check. [facility] has a bed for her today. There might not be a bed avail on Wednesday Pt has made comment that she doesn't care if she lives anymore but wouldn't kill herself as her grandmother had kill herself and wouldn't do that to her mother. Mom spoke with her today, pt sounded incoherent and said "I don't care anymore." Then disconnected the call. Mom inquiring about 302ing her, forcing her to go to [facility] or taking her back to ER. Called office spoke to Janell, advised by Dr Gaston that she need to go to [facility] Wednesday's appt can be canceled. [facility] will monitor her labs. If pt refuses to go to [facility], she can keep the appt on Wednesday with Dr Gaston. If she is is concern pt will commit suicide or harm herself she needs to goto ER. Provide # for S[facility] [phone]. Informed message to mom, she verbalized understanding. She will relay message to the pt. If she goes to [facility] to she will call back to cancel appt on Wednesday. * Telephone Encounter - Pamela Maravilla OSA - 01/26/2024 9:12 AM EDT Mom is calling & really needs to speak to a nurse. Reason for patient's call: Needing to speak to a nurse right away. Caller was transferred to [facility] at the nurse line. documented in this encounter Plan of Treatment Health Maintenance Due Date Last Done Comments [...] filedocumented as of this encounter Care Teams Therapist Relationship Specialty Start Date End Date Aj Gaston III, MD [address] [place] [address] PCP - General Family Medicine 05/12/23 documented as of this encounter
--- OUTSIDE RECORDS SUMMARY | 2024-03-16 09:42 | External Medical Summary | Summary of Care ---
Author Name Unknown Organization [facility] Address [address] [place] [address] Phone [phone] Care Team Providers Care Cut Pressman Name Role Phone Marilin MICHAELS MD, Aj Westfall Primary Care Provider [phone] Encounter Details Date Type Department Care Team (Late st Contact Info) Description 01/18/2024 Orders Only PATIENT PORTAL DO NOT DELETE THIS DEPT USED BY [facility]LL [id number] Allergies Active Allergy Reactions Criticality Noted Date [...] Practice [facility] [address] [place] [address] Aj Gaston III, MD [address] [facility] [place] [address] Health Maintenance Due Date Last Done Comments Hepatitis B (1 of 3 - 19+ 3-dose series) 2001 HPV/Co-Test 2012 COVID-19 Vaccine (2 - 2022- season) 2023 09/23/2022 Influenza Vaccine (FLU shot) (Season Ended) 2024 Mammogram 06/28/2024 06/28/2023, 100 10/2022, 06/21/2023, Additional history exists Cervical Cancer [...] filedocumented as of this encounter Care Teams Cut Pressman Relationship Specialty Start Date End Date Aj Gaston III, MD 200 [facility] [place] [address] PCP - General Family Medicine 05/12/23 documented as of this encounter
--- OUTSIDE RECORDS SUMMARY | 2024-03-16 09:42 | External Medical Summary | Summary of Care ---
Author Name Unknown Organization [facility] Address [address] [place] [address] Phone [phone] Care Team Providers Care Auditing Specialist Name Role Phone Marilin MICHAELS MD, John E Primary Care Provider [phone] Reason for Visit * Reason Onset Date Comments Advice 01/26/2024 Needs to speak t o the nurse Encounter Details Date Type Department Care Team (Late st Contact Info) Description 01/26/2024 Telephone Family Practice [facility] 200 [facility] [place] [address] Aj Gaston III, MD [address] [place] [address] Advice (Needs to speak to the nurse) [...] encounter Miscellaneous Notes * Telephone Encounter - Abi Pierce, KEYANA - 01/26/2024 9:19 AM EDT Mom calling with concern about pt. She is not taking her naltrexone, mom is not sure when she stop taking She is drinking vodka again as of last night. Pt refusing going to rehab in [place] at [facility] stating she needs to see dr Saul on Wednesday. If she goes into rehab she wont be able to see Dr Saul on Wednesday for lab check. [facility] has a bed for her today. There [...] 302ing her, forcing her to go to [facility] or taking her back to ER. Called office spoke to Janell, advised by Dr Gaston that she need to go to [facility] Wednesday's appt can be canceled. [facility] will monitor her labs. If pt refuses to go to [facility], she can keep the appt on Wednesday with Dr Gaston. If she is is concern pt will commit suicide or harm herself she needs to goto ER. Provide # for SRAVANI [phone]. Informed message to mom, she verbalized understanding. She will relay message to the pt. If she goes to [facility] to she will call back to cancel appt on Wednesday. * Telephone Encounter - Pamela Maravilla OSA - 01/26/2024 9:12 AM EDT Mom is calling & really needs to speak to a nurse. Reason for patient's call: Needing to speak to a nurse right away. Caller was transferred to Abi at the nurse line. documented in this encounter Plan of Treatment Upcoming Encounters Date Type Department Care Team (Late st Contact Info) Description 01/28/2024 11:10 AM EDT Laboratory Laboratory [facility] [address] [place] [phone] Anant Banegas [address] [place] [address] 01/28/2024 12:20 PM EDT Office Visit Family Practice [facility] [address] [place] [address] Aj Gaston III, MD [address] [place] [address] Health Maintenance Due Date Last Done Comments Hepatitis B (1 of 3 - 19+ 3-dose series) 2001 HPV/Co-Test 2012 COVID-19 Vaccine (2022- season) 2023 [...] filedocumented as of this encounter Care Teams Auditing Specialist Relationship Specialty Start Date End Date Aj Gaston III, MD [address] [place] [address] PCP - General Family Medicine 05/12/23 documented as of this encounter
--- OUTSIDE RECORDS SUMMARY | 2024-03-16 09:42 | External Medical Summary | Summary of Care ---
Author Name Unknown Organization [facility] Address [address] [place] [address] Phone [phone] Care Team Providers Care Senior Linux Administrator Name Role Phone Marilin MICHAELS MD, Aj Westfall Primary Care Provider [phone] Reason for Visit * Reason Comments Outpatient Testing Encounter Details Date Type Department Care Team (Late st Contact Info) Description 02/25/2024 3:20 PM EDT Laboratory Laboratory [facility] [address] [place] [phone] [place], [address] [facility] [address] [facility], [facility]CP tx ([facility]); Hospital discharge follow-up; Pedal edema; Dyslipidemia, goal LDL below 100 Allergies Active Allergy Reactions Criticality Noted Date Comments Nickel Rash 06/01/2018 documented as of this encounter (statuses as of 03/02/2024) Medications Medication Sig Dispensed Refills Start Date [...] as of this encounter (statuses as of 03/02/2024) Active Problems Problem Noted Date Diagnosed Date Major depressive disorder, recurrent episode, mo derate 11/15/2018 Depression with anxiety 10/19/2016 Malaise and fatigue 08/18/2010 Tobacco use disorder 11/02/2007 Elevated liver enzymes Migraine Insomnia documented as of this encounter (statuses as of 03/02/2024) Resolved Problems Problem Noted Date Diagnosed Date Resolved Date Alcohol abuse, in remission 04/24/2023 04/24/2023 Routine medical exam 08/18/2010 018 documented as of this encounter (statuses as of 03/02/2024) Immunizations Name Administration Dates Next Due Covid-19, [...] as of this encounter Miscellaneous Notes * Result Encounter Note - Nancy Dempsey MD - 02/28/2024 1:34 PM EDT ABNORMAL D-DIMER. Ordered by Dr Sidhu on Wednesday for reason: leg swelling (bilat). Fwd to PCP and [facility] nursing [place]. Patient may need imaging. documented in this encounter Plan of Treatment Upcoming Encounters Date Type Department Care Team (Late st Contact Info) Description 06/07/2024 4:40 PM EDT Office Visit Family Practice [facility] Makenzie [place] [address] [place] [address] Aj Gaston III, MD [address] [place] [address] Health Maintenance Due Date Last Done Comments Hepatitis B (1 of 3 - 19+ 3-dose series) 2001 HPV/Co-Test 2012 COVID-19 Vaccine ( season) 2023 09/23/2022 Influenza Vaccine (FLU shot) (Season Ended) 2024 Mammogram 06/28/2024 06/28/2023, 1010/2022, 06/21/2023, Additional history exists Cervical Cancer Screening [...] Procedure Name Priority Date/Time Associated Diagnosis Comments LIPID PANEL WITH DIRECT LDL IF TG IS HIGH Routine 02/25/2024 3:31 PM EDT Dyslipidemia, goal LDL below 100 BNP (NT-PROBNP) Routine 02/25/2024 3:31 PM EDT Pedal edema COMPREHENSIVE METABOLIC PANEL Routine 02/25/2024 3:31 PM EDT Alcohol dependence, PCP tx (HCC) D-DIMER Routine 02/25/2024 3:31 PM EDT Pedal edema CBC Routine 02/25/2024 3:31 PM EDT Pedal edema documented in this encounter Results * (ABNORMAL) LIPID PANEL WITH DIRECT LDL IF TG IS HIGH (02/25/2024 3:31 PM EDT) Triglycerides 206(H) <=174 mg/dL 02/26/2024 12:04 AM EDT [facility] Comment: Triglyceride Reference Ranges (mg/dL): <150 Acceptable 150-174 Borderline high 175-499 High >=500 Very high Cholesterol 194 <200 mg/dL 02/26/2024 12:04 AM EDT [facility] Comment: Total Cholesterol Reference Ranges (mg/dL): <200 Desirable 200-239 Borderline high >=240 High HDL Cholesterol 50 >49 mg/dL 12:04 AM EDT [facility] Comment: HDL Cholesterol Reference Ranges (mg/dL): >=60 High (Desirable) <50 Low (Undesirable) For Females <40 Low (Undesirable) For Males Non-HDL Cholesterol 144 <=159 mg/dL 02/26/2024 12:04 AM EDT [facility] Comment: Non-HDL Cholesterol Reference Range (mg/dL): <100 Target level for high risk ASCVD patient <130 Optimal for general population 130-159 Near optimal for general population 160-189 Borderline High 190-219 High >=220 Very High LDL Cholesterol 103 <=129 mg/dL 02/26/2024 12:04 AM EDT [facility] Comment: LDL Cholesterol Reference Ranges (mg/dL): <70 Target level for high risk ASCVD patient <100 Optimal for general population 100-129 Near optimal for general population 130-159 Borderline high 160-189 High >=190 Very high Blood Venous blood specimen / Unknown Venipuncture / Unknown 02/25/2024 3:31 PM EDT 02/25/2024 3:31 PM EDT Burt Sidhu MD LAB BLOOD ORDERABLES [facility] [address] [place] [address] * BNP, NT-PRO (02/25/2024 3:31 PM EDT) BNP, NT-Pro 68 <300 pg/mL 02/26/2024 12:04 AM EDT [facility] Blood Venous blood specimen / Unknown Venipuncture / Unknown 02/25/2024 3:31 PM EDT 02/25/2024 3:[address] [facility] - 02/26/2024 12:04 AM EDT Exclude Heart Failure: <300 pg/mL Diagnose Heart Failure: Age <50 yr: >450 pg/mL 50-75 yr: >900 pg/mL >75 yr: >1800 pg/mL GFR is 30-59 mL/min: >1200 pg/mL or Age-adjusted values GFR <30 mL/min: do not use, not reliable Prognostic threshold: 1000 pg/mL Burt Sidhu MD LAB BLOOD ORDERABLES [facility] [address] [place] [address] * CBC (02/25/2024 3:31 PM EDT) WBC 6.63 4.00 - 10.80 K/uL 02/25/2024 3:[address]T [address] RBC 3.91 3.85 - 5.15 M/uL 02/25/2024 3:53 PM EDT [place] [address] HGB 13.4 12.0 - 15.3 g/dL 02/25/2024 3:[address]T [address] HCT 40.4 36.0 - 45.2 % 02/25/2024 3:[address] PM [address]T [address] MCV 103.3 81.5 - 97.5 fL 02/25/2024 3:[address]T [address] MCH 34.3 27.0 - 34.0 pg 02/25/2024 3:[address] PM EDT [address] MCHC 33.2 32.0 - 36.0 g/dL 02/25/2024 3:53 PM EDT [facility] 56 RDW 12.2 11.5 - 15.5 % 02/25/2024 3:53 PM EDT [facility] 56 PLT 317 140 - 400 K/uL 02/25/2024 3:53 PM EDT [facility] 56 MPV 9.2 6.6 - 11.1 fL 02/25/2024 3:53 PM EDT [facility] [facility] 56-02 Blood Venous blood specimen / Unknown Venipuncture / Unknown 02/25/2024 3:31 PM EDT 02/25/2024 3:31 PM EDT Burt Sidhu MD LAB BLOOD ORDERABLES [facility] [address] [place] [address] * (ABNORMAL) D-DIMER (02/25/2024 3:31 PM EDT) D-Dimer 0.69(H) <0.50 ug/mL FEU 02/26/2024 1:12 AM EDT [facility] Blood Venous blood specimen / Unknown Venipuncture / Unknown 02/25/2024 3:31 PM EDT 02/25/2024 3:31 PM EDT Narrative [facility] - 02/26/2024 1:12 AM EDT Rheumatoid factor at a level above 50 IU/mL may lead to an overestimation of the D-dimer level. A normal D-dimer result (<0.50 ug/mL FEU) has a negative predictive value of approximately 95% for the exclusion of acute pulmonary embolism (PE) or deep vein thrombosis when there is low or moderate pretest PE probability. Increased D-dimer values are abnormal but do not indicate a specific disease state and the D-dimer increase does not definitively correlate with clinical severity of disease. Burt Sidhu MD LAB BLOOD ORDERABLES [facility] [address] [place] [facility] [address] * (ABNORMAL) COMPREHENSIVE METABOLIC PANEL (02/25/2024 3:31 PM EDT) BUN 11 6 - 20 mg/dL 02/25/2024 11:53 PM EDT [facility] Creatinine 0.7 0.5 - 1.0 mg/dL 02/25/2024 11:53 PM EDT [facility] Estimated Glomerular Filtration Rate >90 >=60 mL/min 02/25/2024 11:53 PM EDT [facility] Comment:eGFR is calculated b ased on the CKD-EPI 2020 equation Sodium 140 135 - 146 mmol/L 02/25/2024 11:53 PM EDT [facility] Potassium 4.4 3.5 - 5.1 mmol/L 02/25/2024 11:53 PM EDT [facility] Chloride 102 98 - 107 mmol/L 02/25/2024 11:53 PM EDT [facility] CO2 21(L) 22 - 32 mmol/L 02/25/2024 11:53 PM EDT [facility] Anion Gap 17(H) 7 - 15 mmol/L 02/25/2024 11:53 PM EDT [facility] Glucose 81 70 - 120 mg/dL 02/25/2024 11:53 PM EDT [facility] Albumin 4.4 3.8 - 5.0 g/dL 02/25/2024 11:53 PM EDT [facility] AST 41(H) 10 - 35 U/L 02/25/2024 11:53 PM EDT [facility] Alkaline Phosphatase 85 35 - 130 U/L 02/25/2024 11:53 PM EDT [facility] Bilirubin, Total 0.2 <=1.2 mg/dL 02/25/2024 11:53 PM EDT [facility] Calcium 9.3 8.4 - 10.2 mg/dL 02/25/2024 11:53 PM EDT [facility] Protein 6.9 6.0 - 8.3 g/dL 02/25/2024 11:53 PM EDT [facility] ALT 27 10 - 35 U/L 02/25/2024 11:53 PM EDT [facility] Blood Venous blood specimen / Unknown Venipuncture / Unknown 02/25/2024 3:31 PM EDT 02/25/2024 3:31 PM EDT Aj Gaston III, MD LAB BLOOD ORDERABLE S [facility] [address] [place] [address] documented in this encounter Visit Diagnoses Diagnosis Alcohol dependence, PCP tx (HCC) Other and unspecified alcohol dependence, unspecified drinking behavior Hospital discharge follow-up Other follow-up examination Pedal edema Edema Dyslipidemia, goal LDL below 100 Other and unspecified hyperlipidemia documented in this encounter Care Teams Senior Linux Administrator Relationship Specialty Start Date End Date Aj Gaston III, MD 200 [facility] [place] [address] PCP - General Family Medicine 05/12/23 documented as of this encounter
--- OUTSIDE RECORDS SUMMARY | 2024-03-16 09:42 | External Medical Summary ---
Author Name Unknown Address Unknown Organization [id number]:[facility] - [address] [facility] [address] Laboratory Report Ordering Provider Test Date Status MICHAEL NAIK III 02/25/2024 15:31:17 Final Observation Date Value Abnormality Reference (Units ) Status BUN 02/25/2024 15:31:17 11 6-20 (mg/dL) Final Creatinine 02/25/2024 15:31:17 0.7 0.5-1.0 (mg/dL) Final Glomerular filtration rate/1.73 sq M.predicted [Volume Rate/Area] in Serum, Plasma or Blood by Creatinine-based formula (CKD-EPI) 02/25/2024 15:31:17 >90 >=60 (mL/min) Final eGFR is calculated based on the CKD-EPI 2020 equation Sodium 02/25/2024 15:31:17 140 135-146 (m mol/L) Final Potassium 02/25/2024 15:31:17 4.4 3.5-5.1 (m mol/L) Final Cl 02/25/2024 15:31:17 102 98-107 (mm ol/L) Final CO2 02/25/2024 15:31:17 21 Below low normal 22- 32 (mmol/L) Final Anion gap 02/25/2024 15:31:17 17 Above high normal 7- 15 (mmol/L) Final Glucose 02/25/2024 15:31:17 81 70-120 (mg /dL) Final Albumin 02/25/2024 15:31:17 4.4 3.8-5.0 (g /dL) Final AST (Aspartate aminotransferase) 02/25/2024 15:31:17 41 Above high normal 10-35 (U/L) Final Alk Phos 02/25/2024 15:31:17 85 35-130 (U/ L) Final Bilirubin, Total 02/25/2024 15:31:17 0.2 <=1 .2 (mg/dL) Final Calcium 02/25/2024 15:31:17 9.3 8.4-10.2 ( mg/dL) Final Protein 02/25/2024 15:31:17 6.9 6.0-8.3 (g /dL) Final ALT (Alanine aminotransferase) 02/25/2024 15:31:17 27 10-35 (U/L) Macho ma Performing Location [facility] - [facility] [address] [place]. [facility] [address]
--- OUTSIDE RECORDS SUMMARY | 2024-03-16 09:42 | External Medical Summary | Summary of Care ---
Author Name Unknown Organization [facility] Address [address] [place] [address] Phone [phone] Care Team Providers Care Crutch Maker Name Role Phone Marilin MICHAELS MD, John E Primary Care Provider [phone] Reason for Visit * Reason Onset Date Comments Advice 01/26/2024 Needs to speak t o the nurse Encounter Details Date Type Department Care Team (Late st Contact Info) Description 01/26/2024 Telephone Family Practice [facility] 200 [facility] [place] [address] Aj Gaston III, MD [address] [place] [address] Advice (Needs to speak to the nurse) [...] encounter Miscellaneous Notes * Telephone Encounter - Octavia Anthony OSA - 01/26/2024 4:47 PM EDT Reason for patient's call: Patient's mother returning phone call to a nurse. Caller was transferred to [facility] at the nurse line. * Telephone Encounter - Abi Pierce LPN - 01/26/2024 9:19 AM EDT Mom calling with concern about pt. She is not taking her naltrexone, mom is not sure when she stop taking She is drinking vodka again as of last night. Pt refusing going to rehab in [place] at [facility] stating she needs to see dr Saul on Wednesday. If she goes into rehab she wont be able to see Dr Saul on Wednesday for lab check. [facility] has a bed for her today. There [...] 302ing her, forcing her to go to [facility] or taking her back to ER. Called office spoke to Janell, advised by Dr Gatson that she need to go to [facility] Wednesday's appt can be canceled. [facility] will monitor her labs. If pt refuses to go to [facility], she can keep the appt on Wednesday with Dr Gaston. If she is is concern pt will commit suicide or harm herself she needs to goto ER. Provide # for SRAVANI [phone]. Informed message to mom, she verbalized understanding. She will relay message to the pt. If she goes to [facility] to she will call back to cancel [...] Description 01/28/2024 11:10 AM EDT Laboratory Laboratory [facility] [place] 200 [facility] [place] [phone] [facility] 200 [facility] [place] [address] 01/28/2024 12:20 PM EDT Office Visit Family Practice [facility] [place] [address] [facility] [place] [address] Aj Gaston III, MD 200 [facility] [place] [address] Health Maintenance Due Date Last Done Comments [...] filedocumented as of this encounter Care Teams Crutch Maker Relationship Specialty Start Date End Date Aj Gaston III, MD [address] [facility] [place] [address] PCP - General Family Medicine 05/12/23 documented as of this encounter
--- OUTSIDE RECORDS SUMMARY | 2024-03-16 09:42 | External Medical Summary ---
Author Name Unknown Address Unknown Organization K09:[facility] [place] [address] Laboratory Report Ordering Provider Test Date Status YING GOMES 02/25/2024 15:31:17 Final Observation Date Value Abnormality Reference (Units ) Status WBC, Total 02/25/2024 15:31:17 6.63 4.00-10.8 0 (K/uL) Final RBC 02/25/2024 15:31:17 3.91 3.85-5.15 (M/uL) Final Hemoglobin 02/25/2024 15:31:17 13.4 12.0-15.3 (g/dL) Final HCT 02/25/2024 15:31:17 40.4 36.0-45.2 (%) Final MCV 02/25/2024 15:31:17 103.3 81.5-97.5 (fL) Final MCH 02/25/2024 15:31:17 34.3 27.0-34.0 (pg) Final MCHC 02/25/2024 15:31:17 33.2 32.0-36.0 (g/dL) Final RDW 02/25/2024 15:31:17 12.2 11.5-15.5 (%) Final Platelets 02/25/2024 15:31:17 317 140-400 (K /uL) Final MPV 02/25/2024 15:31:17 9.2 6.6-11.1 ( fL) Final Performing Location [facility] [place] [address]
--- OUTSIDE RECORDS SUMMARY | 2024-03-16 09:42 | External Medical Summary | Summary of Care ---
Author Name Unknown Organization [facility] Address [address] [place] [address] Phone [phone] Care Team Providers Care International Controller Name Role Phone Marilin MICHAELS MD, John E Primary Care Provider [phone] Reason for Visit * Reason Onset Date Comments Advice 01/26/2024 Needs to speak t o the nurse Encounter Details Date Type Department Care Team (Late st Contact Info) Description 01/26/[address] [facility] 200 [facility] [place] [address] Aj Gaston III, MD [address] [place] [address] Advice (Needs to speak to the nurse) Allergies Active Allergy Reactions Criticality Noted Date Comments Nickel Rash 06/01/2018 documented as of this encounter (statuses as of 01/27/2024) Medications Medication Sig Dispensed Refills Start Date [...] as of this encounter (statuses as of 01/27/2024) Active Problems Problem Noted Date Diagnosed Date Major depressive disorder, recurrent episode, mo derate 11/15/2018 Depression with anxiety 10/19/2016 Malaise and fatigue 08/18/2010 Tobacco use disorder 11/02/2007 Elevated liver enzymes Migraine Insomnia documented as of this encounter (statuses as of 01/27/2024) Resolved Problems Problem Noted Date Diagnosed Date Resolved Date Alcohol abuse, in remission 04/24/2023 04/24/2023 Routine medical exam 08/18/2010 018 documented as of this encounter (statuses as of 01/27/2024) Immunizations Name Administration Dates Next Due Covid-19, [...] encounter Miscellaneous Notes * Telephone Encounter - Aj Gaston III, MD - 01/27/2024 9:36 AM EDT noted * Telephone Encounter - Saima Ann LPN - 01/26/2024 4:49 PM EDT Patient mother Jessenia calling back in stating that she was able to get her daughter to go to [facility] rehab in [place]. Cancelled appointment for Wednesday with Dr. Gaston. * Telephone Encounter - Octavia Anthony OSA - 01/26/2024 4:47 PM EDT Reason for patient's call: Patient's mother returning phone call to a nurse. Caller was transferred to Saima at the nurse line. * Telephone Encounter - Abi Pierce LPN - 01/26/2024 9:19 AM EDT Mom calling with concern about pt. She is not taking her naltrexone, mom is not sure when she stop taking She is drinking vodka again as of last night. Pt refusing going to rehab in [place] at [facility] stating she needs to see dr Saul on Wednesday. If she goes into rehab she wont be able to see Dr Saul on Wednesday for lab check. [facility] has a bed for her today. There [...] 302ing her, forcing her to go to [facility] or taking her back to ER. Called office spoke to Janell, advised by Dr Gaston that she need to go to [facility] Wednesday's appt can be canceled. [facility] will monitor her labs. If pt refuses to go to [facility], she can keep the appt on Wednesday with Dr Gaston. If she is is concern pt will commit suicide or harm herself she needs to goto ER. Provide # for SVET[place]athi [phone]. Informed message to mom, she verbalized understanding. She will relay message to the pt. If she goes to [place] to she will call back to cancel [...] filedocumented as of this encounter Care Teams International Controller Relationship Specialty Start Date End Date Aj Gaston III, MD 200 [place] [address] PCP - General Family Medicine 05/12/23 documented as of this encounter
--- OUTSIDE RECORDS SUMMARY | 2024-03-16 09:42 | External Medical Summary | Summary of Care ---
Author Name Unknown Organization [facility] Address [address] [place] [address] Phone [phone] Care Team Providers Care Sole Inker Name Role Phone Marilin MICHAELS MD, Aj Westfall Primary Care Provider [phone] Reason for Visit * Reason Comments Outpatient Testing Encounter Details Date Type Department Care Team (Late st Contact Info) Description 02/25/2024 3:20 PM EDT Laboratory Laboratory [facility] [address] [place] [id number] [place], [address] [facility] [address] [facility] dependence, PCP tx ([facility]); Hospital discharge follow-up; Pedal edema; Dyslipidemia, goal [...] 4:40 PM EDT Office Visit Family Practice [facility] [place] [address] [facility] [place] [address] Aj Gaston III, MD [address] [facility] [place] [address] Pending Results Name Type Priority Associated Diagnoses Date /Time COMPREHENSIVE METABOLIC PANEL Lab Routine Alcohol dependence, PCP tx (HCC) 02/25/2024 3:31 PM EDT D-DIMER Lab Routine Pedal edema 02/25/2024 3:31 PM EDT CBC Lab Routine Pedal edema 02/25/2024 3:31 PM EDT BNP, NT-PRO Lab Routine Pedal edema 02/25/2024 3:31 PM EDT LIPID PANEL WITH DIRECT LDL IF TG IS HIGH Lab Routine Dyslipidemia, goal LDL below 100 02/25/2024 3:31 PM EDT Health Maintenance Due Date Last Done [...] hyperlipidemia documented in this encounter Care Teams Sole Inker Relationship Specialty Start Date End Date Aj Gaston III, MD [address] [facility] [place] [address] PCP - General Family Medicine 05/12/23 documented as of this encounter
--- OUTSIDE RECORDS SUMMARY | 2024-03-16 09:42 | External Medical Summary ---
Author Name Unknown Address Unknown Organization K01:LABORATORY [facility] - [address] [facility] [address] Laboratory Report Ordering Provider Test Date Status SELENA GOMESGRAM 02/25/2024 15:31:17 Final Observation Date Value Abnormality Reference (Units ) Status Triglyceride 02/25/2024 15:31:17 206 Above high normal <=174 (mg/dL) Final Triglyceride Reference Range s (mg/dL):
<150 Acceptable
150-174 Borderline high
175-499 High
>=500 Very high Cholesterol 02/25/2024 15:31:17 194 <200 (mg /dL) Final Total Cholesterol Reference Ranges (mg/dL):
<200 Desirable
200-239 Borderline high
>=240 High HDL 02/25/2024 15:31:17 50 >49 (mg/dL ) Final HDL Cholesterol Reference Ra nges (mg/dL):
>=60 High (Desirable)
<50 Low (Undesirable) For Females
<40 Low (Undesirable) For Males NON-HDL CHOLESTEROL 02/25/2024 15:31:17 144 <=159 (mg/dL) Final Non-HDL Cholesterol Referenc e Range (mg/dL):
<100 Target level for high risk ASCVD patient
<130 Optimal for general population
130-159 Near optimal for general population
160-189 Borderline High
190-219 High
>=220 Very High LDL, (calculated) 02/25/2024 15:31:17 103 <= 129 (mg/dL) Final LDL Cholesterol Reference Ra nges (mg/dL):
<70 Target level for high risk ASCVD patient
<100 Optimal for general population
100-129 Near optimal for general population
130-159 Borderline high
160-189 High
>=190 Very high Performing Location LAB[facility]ATORY [facility] - [address] [facility] [address]
--- OUTSIDE RECORDS SUMMARY | 2024-03-16 09:42 | External Medical Summary ---
Author Name Unknown Address Unknown Organization K01:LABORATORY [facility] [place] - [facility] [address] [facility] [address] Laboratory Report Ordering Provider Test Date Status ELISEOYING 02/25/2024 15:31:17 Final Rheumatoid factor at a level above 50 [...] definitively correlate with clinical severity of disease. Observation Date Value Abnormality Reference (Units ) Status Fibrin D-dimer FEU [Mass/volume] in Platelet poor plasma by Immunoassay 02/25/2024 15:31:17 0.69 Above high normal <0.50 (ug/mL FEU) Final Performing Location LABORATORY [facility] [place] - [facility] [address] [facility] [address]
[2024-03-16] MEDS: POTASSIUM PHOSPHATE 30 MMOL in SODIUM CHLORIDE 0.9% 500 ML IV ONE (09:49)
--- NOTE | 2024-03-16 10:11 | Electrocardiogram Report ---
Test Reason : Blood Pressure : / mmHG Vent. Rate : 095 BPM Atrial Rate : 095 BPM P-R Int : 140 ms QRS Dur : 082 ms QT Int : 386 ms P-R-T Axes : 046 049 046 degrees QTc Int : 485 ms Normal sinus rhythm Prolonged QT Abnormal ECG When compared with ECG of 06-JAN-2024 13:52, T wave inversion no longer evident in Inferior leads T wave inversion no longer evident in Anterolateral leads Confirmed by Ramon Liu ([id number]) on 03/16/2024 10:11:29 AM Referred By: Confirmed By:Ramon Liu
--- NOTE | 2024-03-16 14:17 | Hospitalist Progress Note ---
Date of Service March 16, 2024 Assessment & Plan (1) Alcohol withdrawal: Plan: Alcohol withdrawal: Alcoholic hepatitis, likely good prognosis on Maddrey's DF with PT within normal limits MELODIE S, DT precautions Social service re: alcohol rehab placement post detox No delirium but does have tremors involving the outstretched hands Complains to have nausea Clinically she is better-will continue to monitor Electrolyte imbalance Significant hypophosphatemia-secondary to alcohol use Will replace and monitor Hypotension secondary to hypovolemia, AGMA secondary to above Has been getting intravenous fluid Diuretics on hold Blood pressure remains lower side at 102/64 Chronic anemia, current hemoglobin better than baseline secondary to hemoconcentration Hemoglobin remained stable at 11.2 Iron level is high We will check B12 and folate level Anxiety/mood disorder, at baseline Ongoing tobacco abuse Nicotine replacement therapy DVT prophylaxis. SCDs Re: Thrombocytopenia Full code Patient mother requesting updates from providers. Ms. Jessenia Bauer, contact #[phone]. Admission and Anticipated Discharge Date Admission Date: March 16, 2024 Subjective 03/16/2024 The patient was seen and examined in telemetry unit She has been depressed and weak Has been feeling little better but he still has significant tremors Complains to nausea and feels like bloated in abdomen Review of Systems Review of Systems: All systems reviewed and are unremarkable except as noted below Physical Exam Physical Exam: Lying in bed without any acute distress Constitutional: + ill appearing and average body habitus Eyes: PERRL, conjunctivae normal, anicteric sclerae ENMT: external ear and nose normal, oropharynx normal Neck: trachea midline, no thyromegaly Respiratory: no respiratory distress Auscultation: lungs clear to auscultation bilaterally Cardiovascular: Rate/Rhythm: regular rate and regular rhythm; not tachycardic Heart Sounds: normal S1 and normal S2; no murmur Extremities: no edema Gastrointestinal (Abdomen): Inspection/Auscultation: normal bowel sounds; abdomen not distended Percussion/Palpation: abdomen soft; abdomen nontender Musculoskeletal: No acute arthritis involving any of the joints Neurologic: normal touch/pain/proprioception and moves all extremities; no focal motor deficits Significant tremors involving the outstretched hands Psychiatric: Mood: + depressed mood and + anxious mood Lymphatic: no cervical or axillary lymphadenopathy Results & Data Results & Data Vital Signs (Past 12 Hours) Vital Signs Temp Pulse Pulse Resp BP Pulse Ox O2 Del Method 03/16/24 11:27 36.5 C 97 H 16 102/64 97 Room Air 03/16/24 08:00 96 Room Air 03/16/24 08:00 Room Air 03/16/24 08:00 92 H 03/16/24 07:13 36.8 C 99 H 16 115/80 96 Room Air 03/16/24 03:36 90 03/16/24 03:15 36.7 C 89 16 118/76 98 Room Air Laboratory Results Short CBC 03/15/24 03/16/24 Range/Units 21:27 07:07 WBC 4.71 L 5.44 (4.8-10.8) K/ul Hgb 12.7 11.2 L (12.0-16.0) g/dl Hct 38.4 33.5 L (37.0-47.0) % Plt Count 241 180 (130-400) K/uL BMP 03/15/24 03/16/24 21:27 07:07 Sodium 135 L 138 Potassium 3.8 3.9 Chloride 96 L 103 Carbon Dioxide 11 L 18 L BUN 7 5 L Creatinine 0.67 0.56 L Glucose 77 91 Calcium 8.2 L 7.8 L Liver Function 03/15/24 03/16/24 Range/Units 21:27 07:07 Total Bilirubin 0.4 0.6 (0.2-1.0) mg/dl AST 219 H 209 H (13-39) U/L ALT 96 H 91 H (7-52) U/L Alkaline Phosphatase 79 65 (34-104) U/L Albumin 4.9 4.1 (3.4-5.0) gm/dl Urine 03/15/24 Range/Units 22:30 Urine Color Yellow Urine Appearance Clear (Clear) Urine pH 5.5 (4.5-7.5) Ur Specific Dresser 1.019 (1.000-1.030) Urine Protein 2+ H (Negative) Urine Glucose (UA) Negative (Negative) Medications Administered Current Inpatient Medications Amitriptyline HCl (Amitriptyline Hcl 100 Mg Tab) 100 mg PO HS PRN PRN Reason: Sleep Stop: 04/15/24 03:22 Last Admin: 03/16/24 08:53 Dose: 100 mg Calcium Carbonate (Calcium Carbonate 500 Mg Chewable Tab) 500 mg PO Q6H PRN PRN Reason: Indigestion Stop: 04/15/24 08:36 Last Admin: 03/16/24 08:53 Dose: 500 mg Folic Acid (Folic Acid 1 Mg Tab) 1 mg PO QAM TIN Stop: 04/16/24 08:59 Gabapentin (Gabapentin 300 Mg Cap) 300 mg PO TID TIN Stop: 04/15/24 08:59 Last Admin: 03/16/24 08:54 Dose: 300 mg Hydroxyzine HCl (Hydroxyzine Hcl 25 Mg Tab) 100 mg PO TID PRN PRN Reason: Anxiety Stop: 04/15/24 08:59 Last Admin: 03/16/24 08:54 Dose: 100 mg Lorazepam 1 mg/ Syringe 1 mls @ 2 mls/min IV UD PRN; Protocol PRN Reason: EtOH Withdrawal AWSS Score 6,7 Stop: 04/15/24 00:32 Lorazepam 2 mg/ Syringe 2 mls @ 2 mls/min IV UD PRN; Protocol PRN Reason: EtOH Withdrawal AWSS Score 8,9 Stop: 04/15/24 00:32 Lorazepam 3 mg/ Syringe 3 mls @ 2 mls/min IV ONCE PRN; Protocol PRN Reason: EtOH Withdrawal AWSS Score 10+ Promethazine HCl 12.5 mg/ (Sodium Chloride) 50.5 mls @ 202 mls/hr IV Q6H PRN PRN Reason: Nausea And Vomiting Stop: 04/15/24 01:25 Last Infusion: 03/16/24 08:00 Dose: Infused Potassium Phosphate 30 mmol/ (Sodium Chloride) 510 mls @ 88 mls/hr IV ONE ONE Stop: 03/16/24 14:47 Last Admin: 03/16/24 09:49 Dose: 88 mls/hr Lorazepam (Lorazepam 1 Mg Tab) 1 mg PO Q6H PRN PRN Reason: Anxiety Stop: 04/15/24 03:22 Melatonin (Melatonin 3 Mg Tab) 9 mg PO HSZ PRN PRN Reason: Sleep Stop: 04/15/24 03:28 Multivitamins (Multivitamin Tab) 1 tab PO QAM TIN Stop: 04/16/24 08:59 Nicotine Polacrilex (Nicotine Polacrilex 2 Mg Gum) 1 piece MT PRN PRN PRN Reason: smoking urge Stop: 04/15/24 01:26 Ondansetron HCl (Ondansetron Inj 2 Mg/Ml 2 Ml Vial) 4 mg IV Q6H PRN PRN Reason: Nausea And Vomiting Stop: 04/15/24 09:48 Sertraline HCl (Sertraline Hcl 50 Mg Tablet) 50 mg PO [facility] Stop: 04/15/24 08:59 Last Admin: 03/16/24 08:53 Dose: 50 mg Thiamine HCl (Thiamine Hcl 100 Mg Tab) 100 mg PO [facility] Stop: 04/16/24 08:59
[2024-03-16] MEDS: LORazepam 1 MG TAB PO PRN (16:29)
[2024-03-16] MEDS: LORazepam 1 MG in SYRINGE 0.5 ML IV PRN (18:32)
[2024-03-16] MEDS: MELATONIN 3 MG TAB PO PRN (20:09)
[2024-03-17 07:36] LABS: BUN Creatinine Ratio 11.3 (10-20); Calcium 8.4 mg/dl (8.6-10.3); Creatinine Clr Calc Pharmacy 120.6 ml/min; Est GFR (African American) 136.7 ml/min; Est GFR (Non-African American) 117.9 ml/min; Magnesium 1.2 mg/dl (1.7-2.4); Phosphorus 3.5 mg/dl (2.5-4.9); Potassium 3.2 mmol/L (3.5-5.1)
[2024-03-17 07:37] LABS: Folate (Folic Acid),Ser orPlas 10.84 ng/ml (>5.38)
[2024-03-17] MEDS: ONDANSETRON INJ 2 MG/ML 2 ML VIAL IV PRN (07:51)
[2024-03-17] MEDS: THIAMINE HCL 100 MG TAB PO SCH (08:00)
[2024-03-17] MEDS: MULTIVITAMIN TAB PO SCH (08:01)
[2024-03-17] MEDS: FOLIC ACID 1 MG TAB PO SCH (08:02)
[2024-03-17] MEDS: POTASSIUM CHLORIDE CRTAB 20 MEQ TABCR PO STA (09:44)
[2024-03-17] MEDS: POTASSIUM CHLORIDE / WTR 10 MEQ/100 ML PLCT IV SCH (09:44)
[2024-03-17] MEDS: MAGNESIUM SULFATE / D5W 1 GM/100 ML BAG IV SCH (09:44)
[2024-03-17] MEDS: NICOTINE 14 MG/24 HR PATCH TD SCH (10:33)
[2024-03-17] MEDS: NICOTINE POLACRILEX 2 MG GUM MT PRN (12:10)
--- NOTE | 2024-03-17 16:00 | Hospitalist Progress Note ---
Date of Service March 17, 2024 Assessment & Plan (1) Alcohol withdrawal: Plan: Alcohol withdrawal: Alcoholic hepatitis, likely good prognosis on Maddrey's DF with PT within normal limits MELODIE S, DT precautions Social service re: alcohol rehab placement post detox No delirium but does have tremors involving the outstretched hands Complains to have nausea Clinically she is better-will continue to monitor Withdrawal symptoms have been improving-still has significant tremors Will get PT and OT evaluation Will likely need to go to inpatient rehab facility Electrolyte imbalance Significant hypophosphatemia-secondary to alcohol use Will replace and monitor Potassium and magnesium while low-supplemented Will monitor Hypotension secondary to hypovolemia, AGMA secondary to above Has been getting intravenous fluid Diuretics on hold Blood pressure remains lower side at 102/64 Chronic anemia, current hemoglobin better than baseline secondary to hemoconcentration Hemoglobin remained stable at 11.2 Iron level is high We will check B12 and folate level-levels are normal Anxiety/mood disorder, at baseline Ongoing tobacco abuse Nicotine replacement therapy DVT prophylaxis. SCDs Re: Thrombocytopenia Full code Patient mother requesting updates from providers. Ms. Jessenia CutlerIsaiasHolcomb, contact #[phone]. Admission and Anticipated Discharge Date Admission Date: March 16, 2024 Subjective 03/16/2024 The patient was seen and examined in telemetry unit She has been depressed and weak Has been feeling little better but he still has significant tremors Complains to nausea and feels like bloated in abdomen 03/17/2024 The patient was seen and examined in telemetry unit He has been weak and lethargic Has significant tremors but without any palpitation and/or shortness of breath No hallucination Will likely need inpatient rehab Review of Systems Review of Systems: All systems reviewed and are unremarkable except as noted below Physical Exam Physical Exam: Lying in bed without any acute distress Constitutional: + ill appearing and average body habitus Eyes: PERRL, conjunctivae normal, anicteric sclerae ENMT: external ear and nose normal, oropharynx normal Neck: trachea midline, no thyromegaly Respiratory: no respiratory distress Auscultation: lungs clear to auscultation bilaterally Cardiovascular: Rate/Rhythm: regular rate and regular rhythm; not tachycardic Heart Sounds: normal S1 and normal S2; no murmur Extremities: no edema Gastrointestinal (Abdomen): Inspection/Auscultation: normal bowel sounds; abdomen not distended Percussion/Palpation: abdomen soft; abdomen nontender Musculoskeletal: No acute arthritis involving any of the joint Neurologic: normal touch/pain/proprioception and moves all extremities; no focal motor deficits Has significant tremors with outstretched hands Psychiatric: Mood: + depressed mood and + anxious mood Lymphatic: no cervical or axillary lymphadenopathy Results & Data Results & Data Vital Signs (Past 12 Hours) Vital Signs Temp Pulse Pulse Resp BP Pulse Ox O2 Del Method 03/17/24 13:19 91 H 03/17/24 10:51 36.7 C 85 18 104/74 94 Room Air 03/17/24 09:32 77 03/17/24 07:43 36.7 C 80 16 97/63 L 96 Room Air Laboratory Results [facility] 03/17/24 06:00 Sodium 136 Potassium 3.2 L Chloride 101 Carbon Dioxide 28 BUN 6 Creatinine 0.53 L Glucose 104 H Calcium 8.4 L Medications Administered Current Inpatient Medications Amitriptyline HCl (Amitriptyline Hcl 100 Mg Tab) 100 mg PO HS PRN PRN Reason: Sleep Stop: 04/15/24 03:22 Last Admin: 03/17/24 01:39 Dose: 100 mg Calcium Carbonate (Calcium Carbonate 500 Mg Chewable Tab) 500 mg PO Q6H PRN PRN Reason: Indigestion Stop: 04/15/24 08:36 Last Admin: 03/16/24 08:53 Dose: 500 mg Folic Acid (Folic Acid 1 Mg Tab) 1 mg PO QAM TIN Stop: 04/16/24 08:59 Last Admin: 03/17/24 08:02 Dose: 1 mg Gabapentin (Gabapentin 300 Mg Cap) 300 mg PO TID TIN Stop: 04/15/24 08:59 Last Admin: 03/17/24 13:43 Dose: 300 mg Hydroxyzine HCl (Hydroxyzine Hcl 25 Mg Tab) 100 mg PO TID PRN PRN Reason: Anxiety Stop: 04/15/24 08:59 Last Admin: 03/17/24 14:01 Dose: 100 mg Lorazepam 1 mg/ Syringe 1 mls @ 2 mls/min IV UD PRN; Protocol PRN Reason: EtOH Withdrawal AWSS Score 6,7 Stop: 04/15/24 00:32 Last Admin: 03/17/24 11:29 Dose: 2 mls/min Lorazepam 2 mg/ Syringe 2 mls @ 2 mls/min IV UD PRN; Protocol PRN Reason: EtOH Withdrawal AWSS Score 8,9 Stop: 04/15/24 00:32 Lorazepam 3 mg/ Syringe 3 mls @ 2 mls/min IV ONCE PRN; Protocol PRN Reason: EtOH Withdrawal AWSS Score 10+ Promethazine HCl 12.5 mg/ (Sodium Chloride) 50.5 mls @ 202 mls/hr IV Q6H PRN PRN Reason: Nausea And Vomiting Stop: 04/15/24 01:25 Last Infusion: 03/16/24 08:00 Dose: Infused Lorazepam (Lorazepam 1 Mg Tab) 1 mg PO Q6H PRN PRN Reason: Anxiety Stop: 04/15/24 03:22 Last Admin: 03/17/24 08:07 Dose: 1 mg Melatonin (Melatonin 3 Mg Tab) 9 mg PO HSZ PRN PRN Reason: Sleep Stop: 04/15/24 03:28 Last Admin: 03/16/24 20:09 Dose: 9 mg Miscellaneous (Remove Nicoderm Patch) 1 each N/A DAILY@0859 [facility] Stop: 04/17/24 08:58 Multivitamins ([facility]ivitamin Tab) [facility] [place]: 04/16/24 08:59 Last Admin: 03/17/24 08:01 Dose: 1 tab Nicotine (Nicotine 14 Mg/24 Hr Patch) [facility] [place]: 04/16/24 10:14 Last Admin: 03/17/24 10:33 Dose: 1 patch Nicotine Polacrilex (Nicotine Polacrilex 2 Mg Gum) 1 piece MT PRN PRN PRN Reason: smoking urge Stop: 04/15/24 01:26 Last Admin: 03/17/24 12:10 Dose: 1 piece Ondansetron HCl (Ondansetron Inj 2 Mg/Ml 2 Ml Vial) 4 mg IV Q6H PRN PRN Reason: Nausea And Vomiting Stop: 04/15/24 09:48 Last Admin: 03/17/24 07:51 Dose: 4 mg Sertraline HCl (Sertraline Hcl 50 Mg Tablet) [facility] [place]: 04/15/24 08:59 Last Admin: 03/17/24 08:01 Dose: 50 mg Thiamine HCl (Thiamine Hcl 100 Mg Tab) 100 mg PO [facility] Stop: 04/16/24 08:59 Last Admin: 03/17/24 08:00 Dose: 100 mg
[2024-03-18 08:07] LABS: BUN Creatinine Ratio 16.3 (10-20); Creatinine Clr Calc Pharmacy 130.5 ml/min; Est GFR (African American) 140.3 ml/min; Magnesium 1.7 mg/dl (1.7-2.4); Phosphorus 2.9 mg/dl (2.5-4.9); Potassium 4.1 mmol/L (3.5-5.1)
--- NOTE | 2024-03-18 14:04 | Hospitalist Progress Note ---
Date of Service March 18, 2024 Assessment & Plan (1) Alcohol withdrawal: Plan: Alcohol withdrawal: Alcoholic hepatitis, likely good prognosis on Maddrey's DF with PT within normal limits MELODIE S, DT precautions Social service re: alcohol rehab placement post detox No delirium but does have tremors involving the outstretched hands Complains to have nausea Clinically she is better-will continue to monitor Withdrawal symptoms have been improving-still has significant tremors Will get PT and OT evaluation Discussed about the importance of inpatient alcohol rehab program for her She is agreeable to go to inpatient as of now Awaiting placement-still has minimal symptoms of withdrawal and will need to have PT and OT evaluation Electrolyte imbalance Significant hypophosphatemia-secondary to alcohol use Will replace and monitor Potassium and magnesium while low-supplemented electrolytes are normalized Hypotension secondary to hypovolemia, AGMA secondary to above Has been getting intravenous fluid Diuretics on hold Blood pressure remains lower side at 102/64 Chronic anemia, current hemoglobin better than baseline secondary to hemoconcentration Hemoglobin remained stable at 11.2 Iron level is high We will check B12 and folate level-levels are normal Anxiety/mood disorder, at baseline Ongoing tobacco abuse Nicotine replacement therapy DVT prophylaxis. SCDs Re: Thrombocytopenia Full code Patient mother requesting updates from providers. Ms. Jessenia CutlerJelena, contact #[phone]. Admission and Anticipated Discharge Date Admission Date: March 16, 2024 Subjective 03/16/2024 The patient was seen and examined in telemetry unit She has been depressed and weak Has been feeling little better but he still has significant tremors Complains to nausea and feels like bloated in abdomen 03/17/2024 The patient was seen and examined in telemetry unit He has been weak and lethargic Has significant tremors but without any palpitation and/or shortness of breath No hallucination Will likely need inpatient rehab 03/18/2024 The patient was seen and examined in telemetry unit She has been a little better today Remain generally weak and the tremors have improved Denies any palpitation or hallucination Agreeable to go to inpatient rehab facility when better and accepted Review of Systems Review of Systems: All systems reviewed and are unremarkable except as noted below Physical Exam Physical Exam: Lying in bed without any acute distress Constitutional: + ill appearing and average body habitus Eyes: PERRL, conjunctivae normal, anicteric sclerae ENMT: external ear and nose normal, oropharynx normal Neck: trachea midline, no thyromegaly Respiratory: no respiratory distress Auscultation: lungs clear to auscultation bilaterally Cardiovascular: Rate/Rhythm: regular rate and regular rhythm; not tachycardic Heart Sounds: normal S1 and normal S2; no murmur Extremities: no edema Gastrointestinal (Abdomen): Inspection/Auscultation: normal bowel sounds; abdomen not distended Percussion/Palpation: abdomen soft; abdomen nontender Neurologic: normal touch/pain/proprioception and moves all extremities; no f ocal motor deficits Psychiatric: Mood: + depressed mood and + anxious mood Lymphatic: no cervical or axillary lymphadenopathy Results & Data Results & Data Vital Signs (Past 12 Hours) Vital Signs Temp Pulse Resp BP Pulse Ox O2 Del Method 03/18/24 12:42 36.7 C 88 20 102/72 99 Room Air 03/18/24 07:33 36.3 C L 76 19 118/86 99 Room Air 03/18/24 03:47 36.7 C 81 18 107/79 95 Room Air Laboratory Results [facility] 03/18/24 06:55 Sodium 137 Potassium 4.1 D Chloride 103 Carbon Dioxide 30 BUN 8 Creatinine 0.49 L Glucose 96 Calcium 9.0 Medications Administered Current Inpatient Medications Amitriptyline HCl (Amitriptyline Hcl 100 Mg Tab) 100 mg PO HS PRN PRN Reason: Sleep Stop: 04/15/24 03:22 Last Admin: 03/17/24 21:56 Dose: 100 mg Calcium Carbonate (Calcium Carbonate 500 Mg Chewable Tab) 500 mg PO Q6H PRN PRN Reason: Indigestion Stop: 04/15/24 08:36 Last Admin: 03/16/24 08:53 Dose: 500 mg Folic Acid (Folic Acid 1 Mg Tab) 1 mg PO QAM TIN Stop: 04/16/24 08:59 Last Admin: 03/18/24 11:29 Dose: 1 mg Gabapentin (Gabapentin 300 Mg Cap) 300 mg PO TID TIN Stop: 04/15/24 08:59 Last Admin: 03/18/24 11:29 Dose: 300 mg Hydroxyzine HCl (Hydroxyzine Hcl 25 Mg Tab) 100 mg PO TID PRN PRN Reason: Anxiety Stop: 04/15/24 08:59 Last Admin: 03/18/24 11:30 Dose: 100 mg Lorazepam 1 mg/ Syringe 1 mls @ 2 mls/min IV UD PRN; Protocol PRN Reason: EtOH Withdrawal AWSS Score 6,7 Stop: 04/15/24 00:32 Last Admin: 03/17/24 11:29 Dose: 2 mls/min Lorazepam 2 mg/ Syringe 2 mls @ 2 mls/min IV UD PRN; Protocol PRN Reason: EtOH Withdrawal AWSS Score 8,9 Stop: 04/15/24 00:32 Lorazepam 3 mg/ Syringe 3 mls @ 2 mls/min IV ONCE PRN; Protocol PRN Reason: EtOH Withdrawal AWSS Score 10+ Promethazine HCl 12.5 mg/ (Sodium Chloride) 50.5 mls @ 202 mls/hr IV Q6H PRN PRN Reason: Nausea And Vomiting Stop: 04/15/24 01:25 Last Infusion: 03/16/24 08:00 Dose: Infused Lorazepam (Lorazepam 1 Mg Tab) 1 mg PO Q6H PRN PRN Reason: Anxiety Stop: 04/15/24 03:22 Last Admin: 03/18/24 11:30 Dose: 1 mg Melatonin (Melatonin 3 Mg Tab) 9 mg PO HSZ PRN PRN Reason: Sleep Stop: 04/15/24 03:28 Last Admin: 03/17/24 21:56 Dose: 9 mg Miscellaneous (Remove Nicoderm Patch) 1 each N/A DAILY@0859 [facility] Stop: 04/17/24 08:58 Last Admin: 03/18/24 11:29 Dose: 1 each Multivitamins (Multivitamin Tab) 1 tab PO QAM [facility] Stop: 04/16/24 08:59 Last Admin: 03/18/24 11:29 Dose: 1 tab Nicotine (Nicotine 14 Mg/24 Hr Patch) 1 patch TD QAM [facility] Stop: 04/16/24 10:14 Last Admin: 03/18/24 11:29 Dose: 1 patch Nicotine Polacrilex (Nicotine Polacrilex 2 Mg Gum) 1 piece MT PRN PRN PRN Reason: smoking urge Stop: 04/15/24 01:26 Last Admin: 03/18/24 11:30 Dose: 1 piece Ondansetron HCl (Ondansetron Inj 2 Mg/Ml 2 Ml Vial) 4 mg IV Q6H PRN PRN Reason: Nausea And Vomiting Stop: 04/15/24 09:48 Last Admin: 03/17/24 07:51 Dose: 4 mg Sertraline HCl (Sertraline Hcl 50 Mg Tablet) 50 mg PO [facility] Stop: 04/15/24 08:59 Last Admin: 03/18/24 11:29 Dose: 50 mg Thiamine HCl (Thiamine Hcl 100 Mg Tab) 100 mg PO [facility] Stop: 04/16/24 08:59 Last Admin: 03/18/24 11:29 Dose: 100 mg
[2024-03-19] MEDS: KETOROLAC TROMETHAMINE 15 MG/ML VIAL IV ONE (01:45)
[2024-03-19] MEDS: COUGH DROP (SUGAR FREE) LOZ 24 LOZ/1 BOX BUCCAL ONE (10:49)
--- NOTE | 2024-03-19 14:38 | Hospitalist Progress Note ---
Date of Service March 19, 2024 Assessment & Plan (1) Alcohol withdrawal: Plan: Alcohol withdrawal: Alcoholic hepatitis, likely good prognosis on Maddrey's DF with PT within normal limits MELODIE S, DT precautions Social service re: alcohol rehab placement post detox No delirium but does have tremors involving the outstretched hands Complains to have nausea Clinically she is better-will continue to monitor Withdrawal symptoms have been improving-still has significant tremors Will get PT and OT evaluation Discussed about the importance of inpatient alcohol rehab program for her She is agreeable to go to inpatient as of now Awaiting placement-still has minimal symptoms of withdrawal and will need to have PT and OT evaluation Has borderline tachycardia likely secondary to withdrawal Minimal unsteady in gait Will get PT and OT evaluation prior to discharge Awaiting inpatient rehab facility acceptance Electrolyte imbalance Significant hypophosphatemia-secondary to alcohol use Will replace and monitor Potassium and magnesium while low-supplemented electrolytes are normalized Electrolytes have been normalized-will repeat tomorrow Hypotension secondary to hypovolemia, AGMA secondary to above Has been getting intravenous fluid Diuretics on hold Blood pressure remains lower side at 102/64 Chronic anemia, current hemoglobin better than baseline secondary to hemoconcentration Hemoglobin remained stable at 11.2 Iron level is high We will check B12 and folate level-levels are normal Anxiety/mood disorder, at baseline Ongoing tobacco abuse Nicotine replacement therapy DVT prophylaxis. SCDs Re: Thrombocytopenia Full code Patient mother requesting updates from providers. Ms. Jessenia Bauer, contact #[phone]. Admission and Anticipated Discharge Date Admission Date: March 16, 2024 Subjective 03/16/2024 The patient was seen and examined in telemetry unit She has been depressed and weak Has been feeling little better but he still has significant tremors Complains to nausea and feels like bloated in abdomen 03/17/2024 The patient was seen and examined in telemetry unit He has been weak and lethargic Has significant tremors but without any palpitation and/or shortness of breath No hallucination Will likely need inpatient rehab 03/18/2024 The patient was seen and examined in telemetry unit She has been a little better today Remain generally weak and the tremors have improved Denies any palpitation or hallucination Agreeable to go to inpatient rehab facility when better and accepted 03/19/2024 The patient was seen and examined in telemetry unit She remains anxious with minimal tremors with outstretched hands Remains wobbly with ambulation Denies any other significant symptoms Review of Systems Review of Systems: All systems reviewed and are unremarkable except as noted below Physical Exam Physical Exam: Lying in bed without any acute distress Constitutional: + ill appearing and average body habitus Eyes: PERRL, conjunctivae normal, anicteric sclerae ENMT: external ear and nose normal, oropharynx normal Neck: trachea midline, no thyromegaly Respiratory: no respiratory distress Auscultation: lungs clear to auscultation bilaterally Cardiovascular: Rate/Rhythm: regular rate and regular rhythm; not tachycardic Heart Sounds: normal S1 and normal S2; no murmur Extremities: no edema Gastrointestinal (Abdomen): Inspection/Auscultation: normal bowel sounds; abdomen not distended Percussion/Palpation: abdomen soft; abdomen nontender Musculoskeletal: No acute arthritis involving any of the joints Neurologic: normal touch/pain/proprioception and moves all extremities; no focal motor deficits Psychiatric: Mood: + depressed mood and + anxious mood Lymphatic: no cervical or axillary lymphadenopathy Results & Data Results & Data Vital Signs (Past 12 Hours) Vital Signs Temp Pulse Resp BP Pulse Ox O2 Del Method 03/19/24 10:22 Room Air 03/19/24 10:17 36.5 C 112 H 20 114/83 96 Room Air 03/19/24 07:52 36.7 C 92 H 20 118/87 98 Room Air 03/19/24 03:47 36.4 C L 88 17 107/74 95 Room Air Medications Administered Current Inpatient Medications Amitriptyline HCl (Amitriptyline Hcl 100 Mg Tab) 100 mg PO HS PRN PRN Reason: Sleep Stop: 04/15/24 03:22 Last Admin: 03/18/24 23:20 Dose: 100 mg Calcium Carbonate (Calcium Carbonate 500 Mg Chewable Tab) 500 mg PO Q6H PRN PRN Reason: Indigestion Stop: 04/15/24 08:36 Last Admin: 03/16/24 08:53 Dose: 500 mg Folic Acid (Folic Acid 1 Mg Tab) 1 mg PO QAM TIN Stop: 04/16/24 08:59 Last Admin: 03/19/24 10:05 Dose: 1 mg Gabapentin (Gabapentin 300 Mg Cap) 300 mg PO TID TIN Stop: 04/15/24 08:59 Last Admin: 03/19/24 13:20 Dose: 300 mg Heparin Sodium (Porcine) (Heparin Sod 5,000 Unit/0.5 Ml Vial) 5,000 units SQ Q12 [facility] Stop: 04/18/24 20:59 Hydroxyzine HCl (Hydroxyzine Hcl 25 Mg Tab) 100 mg PO TID PRN PRN Reason: Anxiety Stop: 04/15/24 08:59 Last Admin: 03/19/24 14:28 Dose: 100 mg Lorazepam 1 mg/ Syringe 1 mls @ 2 mls/min IV UD PRN; Protocol PRN Reason: EtOH Withdrawal AWSS Score 6,7 Stop: 04/15/24 00:32 Last Admin: 03/17/24 11:29 Dose: 2 mls/min Lorazepam 2 mg/ Syringe 2 mls @ 2 mls/min IV UD PRN; Protocol PRN Reason: EtOH Withdrawal AWSS Score 8,9 Stop: 04/15/24 00:32 Lorazepam 3 mg/ Syringe 3 mls @ 2 mls/min IV ONCE PRN; Protocol PRN Reason: EtOH Withdrawal AWSS Score 10+ Promethazine HCl 12.5 mg/ (Sodium Chloride) 50.5 mls @ 202 mls/hr IV Q6H PRN PRN Reason: Nausea And Vomiting Stop: 04/15/24 01:25 Last Infusion: 03/16/24 08:00 Dose: Infused Lorazepam (Lorazepam 1 Mg Tab) 1 mg PO Q6H PRN PRN Reason: Anxiety Stop: 04/15/24 03:22 Last Admin: 03/19/24 10:06 Dose: 1 mg Melatonin (Melatonin 3 Mg Tab) 9 mg PO HSZ PRN PRN Reason: Sleep Stop: 04/15/24 03:28 Last Admin: 03/18/24 21:08 Dose: 9 mg Miscellaneous (Remove Nicoderm Patch) 1 each N/A DAILY@0859 [facility] Stop: 04/17/24 08:58 Last Admin: 03/19/24 10:05 Dose: 1 each Multivitamins (Multivitamin Tab) 1 tab PO QAM [facility] Stop: 04/16/24 08:59 Last Admin: 03/19/24 10:05 Dose: 1 tab Nicotine (Nicotine 14 Mg/24 Hr Patch) 1 patch TD QAM [facility] Stop: 04/16/24 10:14 Last Admin: 03/19/24 10:05 Dose: 1 patch Nicotine Polacrilex (Nicotine Polacrilex 2 Mg Gum) 1 piece MT PRN PRN PRN Reason: smoking urge Stop: 04/15/24 01:26 Last Admin: 03/19/24 13:20 Dose: 1 piece Ondansetron HCl (Ondansetron Inj 2 Mg/Ml 2 Ml Vial) 4 mg IV Q6H PRN PRN Reason: Nausea And Vomiting Stop: 04/15/24 09:48 Last Admin: 03/17/24 07:51 Dose: 4 mg Sertraline HCl (Sertraline Hcl 50 Mg Tablet) [facility] [place] Stop: 04/15/24 08:59 Last Admin: 03/19/24 10:05 Dose: 50 mg Thiamine HCl (Thiamine Hcl 100 Mg Tab) 100 [facility] [place] Stop: 04/16/24 08:59 Last Admin: 03/19/24 10:05 Dose: 100 mg
[2024-03-19] MEDS: HEPARIN SOD 5,000 UNIT/0.5 ML VIAL SQ SCH (20:23)
[2024-03-20 07:47] LABS: BUN Creatinine Ratio 16.9 (10-20); Calcium 9.7 mg/dl (8.6-10.3); Creatinine Clr Calc Pharmacy 108.4 ml/min; Est GFR (African American) 131.9 ml/min; Est GFR (Non-African American) 113.8 ml/min; Magnesium 1.6 mg/dl (1.7-2.4); Phosphorus 5.4 mg/dl (2.5-4.9)
--- NOTE | 2024-03-20 16:02 | Hospitalist Progress Note ---
Date of Service March 20, 2024 Assessment & Plan (1) Alcohol withdrawal: Plan: Alcohol withdrawal: Alcoholic hepatitis, likely good prognosis on Maddrey's DF with PT within normal limits MELODIE S, DT precautions Social service re: alcohol rehab placement post detox No delirium but does have tremors involving the outstretched hands Complains to have nausea Clinically she is better-will continue to monitor Withdrawal symptoms have been improving-still has significant tremors Will get PT and OT evaluation Discussed about the importance of inpatient alcohol rehab program for her She is agreeable to go to inpatient as of now Awaiting placement-still has minimal symptoms of withdrawal and will need to have PT and OT evaluation Has borderline tachycardia likely secondary to withdrawal Minimal unsteady in gait Will get PT and OT evaluation prior to discharge Awaiting inpatient rehab facility acceptance Required 1 dose of Ativan last night for withdrawal symptoms-we will discontinue Ativan and observe how he does If needed will give hydroxyzine Has been feeling much better since this morning Anxiety/mood disorder, at baseline Appreciate behavioral services input and recommendation. She has been on gabapentin for years which is for anxiety Will try hydroxyzine on top of the Electrolyte imbalance Significant hypophosphatemia-secondary to alcohol use Will replace and monitor Potassium and magnesium while low-supplemented electrolytes are normalized Electrolytes have been normalized-will repeat tomorrow Electrolytes are normalized Hypotension secondary to hypovolemia, AGMA secondary to above Has been getting intravenous fluid Diuretics on hold Blood pressure remains lower side at 102/64 Chronic anemia, current hemoglobin better than baseline secondary to hemoconcentration Hemoglobin remained stable at 11.2 Iron level is high We will check B12 and folate level-levels are normal Ongoing tobacco abuse Nicotine replacement therapy DVT prophylaxis. SCDs Re: Thrombocytopenia Full code Patient mother requesting updates from providers. Ms. Jessenia CutlerIsaiasHolcomb, contact #[phone]. Admission and Anticipated Discharge Date Admission Date: March 16, 2024 Subjective 03/16/2024 The patient was seen and examined in telemetry unit She has been depressed and weak Has been feeling little better but he still has significant tremors Complains to nausea and feels like bloated in abdomen 03/17/2024 The patient was seen and examined in telemetry unit He has been weak and lethargic Has significant tremors but without any palpitation and/or shortness of breath No hallucination Will likely need inpatient rehab 03/18/2024 The patient was seen and examined in telemetry unit She has been a little better today Remain generally weak and the tremors have improved Denies any palpitation or hallucination Agreeable to go to inpatient rehab facility when better and accepted 03/19/2024 The patient was seen and examined in telemetry unit She remains anxious with minimal tremors with outstretched hands Remains wobbly with ambulation Denies any other significant symptoms 03/20/2024 The patient was seen and examined in telemetry unit She has had a hallucination and having more tremor since last night Required a dose of Ativan Has been ambulating without much difficulties Review of Systems Review of Systems: All systems reviewed and are unremarkable except as noted below Physical Exam Physical Exam: Sitting at the edge of the bed without any acute distress Constitutional: + ill appearing and average body habitus Eyes: PERRL, conjunctivae normal, anicteric sclerae ENMT: external ear and nose normal, oropharynx normal Neck: trachea midline, no thyromegaly Respiratory: no respiratory distress Auscultation: lungs clear to auscultation bilaterally Cardiovascular: Rate/Rhythm: regular rate and regular rhythm; not tachycardic Heart Sounds: normal S1 and normal S2; no murmur Extremities: no edema Gastrointestinal (Abdomen): Inspection/Auscultation: normal bowel sounds; abdomen not distended Percussion/Palpation: abdomen soft; abdomen nontender Neurologic: normal touch/pain/proprioception and moves all extremities; no focal motor deficits Psychiatric: Mood: + depressed mood and + anxious mood Lymphatic: no cervical or axillary lymphadenopathy Results & Data Results & Data Vital Signs (Past 12 Hours) Vital Signs Temp Pulse Pulse Resp BP Pulse Ox O2 Del Method 03/20/24 14:34 36.7 C 113 H 19 103/71 96 Room Air 03/20/24 14:13 92 H 03/20/24 11:53 36.4 C L 101 H 18 95/67 L 96 Room Air 03/20/24 08:59 96 H 03/20/24 07:25 36.5 C 85 17 101/76 98 Room Air Laboratory Results [facility] 03/20/24 06:30 Sodium 137 Potassium 4.0 Chloride 102 Carbon Dioxide 28 BUN 10 Creatinine 0.59 L Glucose 105 H Calcium 9.7 Medications Administered Current Inpatient Medications Amitriptyline HCl (Amitriptyline Hcl 100 Mg Tab) 100 mg PO HS PRN PRN Reason: Sleep Stop: 04/15/24 03:22 Last Admin: 03/19/24 22:18 Dose: 100 mg Calcium Carbonate (Calcium Carbonate 500 Mg Chewable Tab) 500 mg PO Q6H PRN PRN Reason: Indigestion Stop: 04/15/24 08:36 Last Admin: 03/16/24 08:53 Dose: 500 mg Folic Acid (Folic Acid 1 Mg Tab) 1 mg PO QAM TIN Stop: 04/16/24 08:59 Last Admin: 03/20/24 08:22 Dose: 1 mg Gabapentin (Gabapentin 300 Mg Cap) 300 mg PO TID [facility] Stop: 04/15/24 08:59 Last Admin: 03/20/24 13:25 Dose: 300 mg Heparin Sodium (Porcine) (Heparin Sod 5,000 Unit/0.5 Ml Vial) 5,000 units SQ Q12 TIN Stop: 04/18/24 20:59 Last Admin: 03/20/24 08:21 Dose: 5,000 units Hydroxyzine HCl (Hydroxyzine Hcl 25 Mg Tab) 100 mg PO TID PRN PRN Reason: Anxiety Stop: 04/15/24 08:59 Last Admin: 03/20/24 08:24 Dose: 100 mg Lorazepam 1 mg/ Syringe 1 mls @ 2 mls/min IV UD PRN; Protocol PRN Reason: EtOH Withdrawal AWSS Score 6,7 Stop: 04/15/24 00:32 Last Admin: 03/20/24 08:20 Dose: 2 mls/min Lorazepam 2 mg/ Syringe 2 mls @ 2 mls/min IV UD PRN; Protocol PRN Reason: EtOH Withdrawal AWSS Score 8,9 Stop: 04/15/24 00:32 Lorazepam 3 mg/ Syringe 3 mls @ 2 mls/min IV ONCE PRN; Protocol PRN Reason: EtOH Withdrawal AWSS Score 10+ Promethazine HCl 12.5 mg/ (Sodium Chloride) 50.5 mls @ 202 mls/hr IV Q6H PRN PRN Reason: Nausea And Vomiting Stop: 04/15/24 01:25 Last Infusion: 03/16/24 08:00 Dose: Infused Lorazepam (Lorazepam 1 Mg Tab) 1 mg PO Q6H PRN PRN Reason: Anxiety Stop: 04/15/24 03:22 Last Admin: 03/20/24 11:15 Dose: 1 mg Melatonin (Melatonin 3 Mg Tab) 9 mg PO HSZ PRN PRN Reason: Sleep Stop: 04/15/24 03:28 Last Admin: 03/19/24 20:21 Dose: 9 mg Miscellaneous (Remove Nicoderm Patch) 1 each N/A DAILY@0859 [facility] Stop: 04/17/24 08:58 Last Admin: 03/20/24 08:20 Dose: 1 each Multivitamins (Multivitamin Tab) 1 tab PO QAM [facility] Stop: 04/16/24 08:59 Last Admin: 03/20/24 08:21 Dose: 1 tab Nicotine (Nicotine 14 Mg/24 Hr Patch) 1 patch TD [facility] Stop: 04/16/24 10:14 Last Admin: 03/20/24 08:22 Dose: 1 patch Nicotine Polacrilex (Nicotine Polacrilex 2 Mg Gum) 1 piece MT PRN PRN PRN Reason: smoking urge Stop: 04/15/24 01:26 Last Admin: 03/20/24 13:31 Dose: 1 piece Ondansetron HCl (Ondansetron Inj 2 Mg/Ml 2 Ml Vial) 4 mg IV Q6H PRN PRN Reason: Nausea And Vomiting Stop: 04/15/24 09:48 Last Admin: 03/17/24 07:51 Dose: 4 mg Sertraline HCl (Sertraline Hcl 50 Mg Tablet) [facility] Stop: 04/15/24 08:59 Last Admin: 03/20/24 08:21 Dose: 50 mg Thiamine HCl (Thiamine Hcl 100 Mg Tab) 100 mg PO [facility] Stop: 04/16/24 08:59 Last Admin: 03/20/24 08:22 Dose: 100 mg
[2024-03-21 07:22] LABS: Basophils # (auto) 0.02 K/uL (0.00-0.20); Basophils % (auto) 0.5 %; Eosinophils # (auto) 0.19 K/uL (0.00-0.50); Eosinophils % (auto) 5.1 %; Hematocrit (blood only) 32.5 % (37.0-47.0); Hemoglobin 10.8 g/dl (12.0-16.0); Immature Granulocytes # (auto) 0.02 K/uL (0.01-0.20); Immature Granulocytes % (auto) 0.5 %; Lymphocytes # (auto) 1.61 K/uL (1.20-3.40); Lymphocytes % (auto) 42.8 %; Mean Corpuscular Hemoglobin 32.5 pg (25.0-34.0); Mean Corpuscular Hgb Conc 33.2 g/dL (32.0-36.0); Mean Corpuscular Volume 97.9 fL (80.0-100.0); Monocytes # (auto) 0.31 K/uL (0.11-0.59); Monocytes % (auto) 8.2 %; Neutrophils # (auto) 1.61 K/uL (1.40-6.50); Neutrophils % (auto) 42.9 %; Platelet Count 113 K/uL (130-400); RDW Coefficient of Variation 13.6 % (11.5-14.5); RDW Standard Deviation 48.7 fL (36.4-46.3); Red Blood Count 3.32 M/uL (4.20-5.40); White Blood Count 3.76 K/ul (4.8-10.8)
[2024-03-21 07:40] LABS: Calcium 9.5 mg/dl (8.6-10.3); Creatinine Clr Calc Pharmacy 79.9 ml/min; Est GFR (African American) 106.1 ml/min; Est GFR (Non-African American) 91.6 ml/min; Magnesium 1.8 mg/dl (1.7-2.4); Phosphorus 5.3 mg/dl (2.5-4.9); Potassium 4.3 mmol/L (3.5-5.1)
[2024-03-21] MEDS: GABAPENTIN 300 MG CAP PO SCH (08:35)
[2024-03-21] MEDS: hydrOXYzine HCl 25 MG TAB PO PRN (14:49)
--- NOTE | 2024-03-21 15:07 | Hospitalist Progress Note ---
Date of Service March 21, 2024 Assessment & Plan (1) Alcohol withdrawal: Plan: Alcohol withdrawal: Alcoholic hepatitis, likely good prognosis on Maddrey's DF with PT within normal limits MELODIE S, DT precautions Social service re: alcohol rehab placement post detox No delirium but does have tremors involving the outstretched hands Complains to have nausea Clinically she is better-will continue to monitor Withdrawal symptoms have been improving-still has significant tremors Will get PT and OT evaluation Discussed about the importance of inpatient alcohol rehab program for her She is agreeable to go to inpatient as of now Awaiting placement-still has minimal symptoms of withdrawal and will need to have PT and OT evaluation Has borderline tachycardia likely secondary to withdrawal Minimal unsteady in gait Will get PT and OT evaluation prior to discharge 03/21/2024 No more Ativan for about 24 hours now and no more gabapentin for about 24 hours now The inpatient rehab facility where she has been accepted will not take her on any narcotics or even gabapentin Discussed this with the patient in detail-she is willing to go without those medications and this was discussed with the mother on 03/20/2024 as well She was added with propranolol 20 mg 3 times daily as she was taking it before for anxiety and palpitation This was also discussed in detail with the case manager specialist who is going to inform the facility that their requirements will be met before she is being discharged in stable medical condition Likely discharge in a day or 2 Anxiety/mood disorder, at baseline Appreciate behavioral services input and recommendation. She has been on gabapentin for years which is for anxiety Will try hydroxyzine on top of the Gabapentin and Ativan have been discontinued She was added with propranolol 20 mg 3 times daily for anxiety and tachycardia Electrolyte imbalance Significant hypophosphatemia-secondary to alcohol use Will replace and monitor Potassium and magnesium while low-supplemented electrolytes are normalized Electrolytes have been normalized-will repeat tomorrow Electrolytes are normalized Hypotension secondary to hypovolemia, AGMA secondary to above Has been getting intravenous fluid Diuretics on hold Blood pressure remains lower side at 102/64 Chronic anemia, current hemoglobin better than baseline secondary to hemoconcentration Hemoglobin remained stable at 11.2 Iron level is high We will check B12 and folate level-levels are normal Ongoing tobacco abuse Nicotine replacement therapy DVT prophylaxis. SCDs Re: Thrombocytopenia Full code Patient mother requesting updates from providers. Ms. Ruelas Lizette, contact #[phone]. Discussed with her mom in detail-the mom and the patient are willing to go to inpatient rehab Admission and Anticipated Discharge Date Admission Date: March 16, 2024 Subjective 03/16/2024 The patient was seen and examined in telemetry unit She has been depressed and weak Has been feeling little better but he still has significant tremors Complains to nausea and feels like bloated in abdomen 03/17/2024 The patient was seen and examined in telemetry unit He has been weak and lethargic Has significant tremors but without any palpitation and/or shortness of breath No hallucination Will likely need inpatient rehab 03/18/2024 The patient was seen and examined in telemetry unit She has been a little better today Remain generally weak and the tremors have improved Denies any palpitation or hallucination Agreeable to go to inpatient rehab facility when better and accepted 03/19/2024 The patient was seen and examined in telemetry unit She remains anxious with minimal tremors with outstretched hands Remains wobbly with ambulation Denies any other significant symptoms 03/20/2024 The patient was seen and examined in telemetry unit She has had a hallucination and having more tremor since last night Required a dose of Ativan Has been ambulating without much difficulties 03/21/2024 The patient was seen and examined in telemetry unit She has been anxious but otherwise stable No more hallucination and not tachycardia Has had minor right ankle injury last night-no definite symptoms Will have PT and OT evaluation prior to discharge to inpatient rehab facility Review of Systems Review of Systems: All systems reviewed and are unremarkable except as noted below Physical Exam Physical Exam: Sitting at the edge of the bed without any acute distress but remains anxious Constitutional: + ill appearing and average body habitus Eyes: PERRL, conjunctivae normal, anicteric sclerae ENMT: external ear and nose normal, oropharynx normal Neck: trachea midline, no thyromegaly Respiratory: no respiratory distress Auscultation: lungs clear to auscultation bilaterally Cardiovascular: Rate/Rhythm: regular rate and regular rhythm; not tachycardic Heart Sounds: normal S1 and normal S2; no murmur Extremities: no edema Gastrointestinal (Abdomen): Inspection/Auscultation: normal bowel sounds; abdomen not distended Percussion/Palpation: abdomen soft; abdomen nontender Neurologic: normal touch/pain/proprioception and moves all extremities; no focal motor deficits Psychiatric: Mood: + depressed mood and + anxious mood Lymphatic: no cervical or axillary lymphadenopathy Results & Data Results & Data Vital Signs (Past 12 Hours) Vital Signs Temp Pulse Pulse Resp BP Pulse Ox O2 Del Method 03/21/24 10:37 36.3 C L 72 17 96/65 L 98 Room Air 03/21/24 09:30 79 03/21/24 07:34 36.3 C L 67 18 91/57 L 97 Room Air Laboratory Results Short CBC 03/21/24 Range/Units 06:47 WBC 3.76 L (4.8-10.8) K/ul Hgb 10.8 L (12.0-16.0) g/dl Hct 32.5 L (37.0-47.0) % Plt Count 113 L (130-400) K/uL BMP 03/21/24 06:47 Sodium 139 Potassium 4.3 Chloride 104 Carbon Dioxide 30 BUN 20 Creatinine 0.80 Glucose 106 H Calcium 9.5
[2024-03-21] MEDS: PROPRANOLOL HCL 20 MG TAB PO SCH (20:31)
[2024-03-21] MEDS ORDERED: PROPRANOLOL HCL 10 MG TAB PO SCH (21:00)
[2024-03-21] MEDS ORDERED: PROPRANOLOL HCL 20 MG TAB PO SCH (21:00)
[2024-03-22 08:03] LABS: BUN Creatinine Ratio 22.8 (10-20); Calcium 8.8 mg/dl (8.6-10.3); Creatinine Clr Calc Pharmacy 80.9 ml/min; Est GFR (African American) 107.8 ml/min; Magnesium 1.8 mg/dl (1.7-2.4); Phosphorus 3.8 mg/dl (2.5-4.9); Potassium 3.9 mmol/L (3.5-5.1)
--- NOTE | 2024-03-22 17:52 | Hospitalist Progress Note ---
Date of Service March 22, 2024 Assessment & Plan (1) Alcohol withdrawal: Plan: Alcohol withdrawal: Alcoholic hepatitis, likely good prognosis on Maddrey's DF with PT within normal limits DT precautions Counseled to quit alcohol use No significant withdrawal symptoms currently Case management to help with discharge planning Continue thiamine, folic acid Anxiety/mood disorder, at baseline Appreciate behavioral services input and recommendation. Gabapentin discontinued Hydroxyzine PRN Added propranolol Electrolyte imbalance Significant hypophosphatemia-secondary to alcohol use Hypokalemia Hypophosphatemia Replace electrolytes as needed Hypotension BP usually runs low per patient Hold diuretics for now Monitor BP Chronic anemia Pancytopenia Hb better than baseline on presentation secondary to hemoconcentration Likely due to alcohol use Monitor CBC Ongoing tobacco abuse Nicotine replacement therapy DVT Px: SCDs Re: Thrombocytopenia Code Status Full code Admission and Anticipated Discharge Date Admission Date: March 16, 2024 Subjective Patient is seen and examined at bedside States feeling tired Also reports being anxious at times Family at bedside No other complaints Review of Systems Review of Systems: All systems reviewed & are unremarkable except as noted in Subjective Physical Exam Physical Exam: Physical Exam: Vitals signs as noted above General Appearance:Moderately built and nourished, no apparent distress Head: normocephalic, Atraumatic Eyes: normal inspection, EOMI Neck: supple, Trachea midline Respiratory/Chest: Normal breath sounds, CTA, No accessory muscle use Cardiovascular: S1, S2, No murmur Abdomen/GI:Soft, Non tender, Bowel sounds present Extremities/Musculoskeletal:normal inspection, no edema Neurologic/Psych:AAOX3, grossly no focal neurological deficits Skin: normal color, warm Results & Data Results & Data Vital Signs (Past 12 Hours) Vital Signs Temp Pulse Pulse Resp BP Pulse Ox O2 Del Method 03/22/24 15:46 36.6 C 74 18 94/61 L 98 Room Air 03/22/24 14:15 81 03/22/24 10:44 36.4 C L 80 17 110/78 98 Room Air 03/22/24 07:59 62 03/22/24 07:20 90 20 88/66 L 97 Room Air Laboratory Results [facility] 03/22/24 07:13 Sodium 137 Potassium 3.9 Chloride 104 Carbon Dioxide 27 BUN 18 Creatinine 0.79 Glucose 101 H Calcium 8.8
--- NOTE | 2024-03-23 08:56 | Hospitalist Progress Note ---
Date of Service March 23, 2024 Assessment & Plan (1) Alcohol withdrawal: Plan: Alcohol withdrawal: Alcoholic hepatitis, likely good prognosis on Maddrey's DF with PT within normal limits DT precautions Counseled to quit alcohol use No significant withdrawal symptoms currently Case management to help with discharge planning Continue thiamine, folic acid Plan to discharge to rehab facility today Anxiety/mood disorder, at baseline Appreciate behavioral services input and recommendation. Gabapentin discontinued Hydroxyzine PRN Continue propranolol Electrolyte imbalance Significant hypophosphatemia-secondary to alcohol use Hypokalemia Hypophosphatemia Replace electrolytes as needed Hypotension BP usually runs low per patient Hold diuretics for now as no signs of volume overload Monitor BP Chronic anemia Pancytopenia Hb better than baseline on presentation secondary to hemoconcentration Likely due to alcohol use Monitor CBC Ongoing tobacco abuse Nicotine replacement therapy DVT Px: SCDs Re: Thrombocytopenia Code Status Full code Disposition Rehab Admission and Anticipated Discharge Date Admission Date: March 16, 2024 Subjective Patient is seen and examined at bedside No new complaints Feels anxious intermittently Reports having poor sleep overnight Denies any chest pain, dyspnea, nausea, vomiting, abdominal pain Plan to discharge to rehab facility today Review of Systems Review of Systems: All systems reviewed & are unremarkable except as noted in Subjective Physical Exam Physical Exam: Physical Exam: Vitals signs as noted above General Appearance:Moderately built and nourished, no apparent distress Head: normocephalic, Atraumatic Eyes: normal inspection, EOMI Neck: supple, Trachea midline Respiratory/Chest: Normal breath sounds, CTA, No accessory muscle use Cardiovascular: S1, S2, No murmur Abdomen/GI:Soft, Non tender, Bowel sounds present Extremities/Musculoskeletal:normal inspection, no edema Neurologic/Psych:AAOX3, grossly no focal neurological deficits Skin: normal color, warm Results & Data Results & Data Vital Signs (Past 12 Hours) Vital Signs Temp Pulse Pulse Resp BP Pulse Ox O2 Del Method 03/23/24 08:01 36.5 C 68 16 95/66 L 95 Room Air 03/23/24 03:02 36.4 C L 61 12 94/60 L 99 Room Air 03/22/24 22:18 36.6 C 68 20 91/58 L 97 Room Air 03/22/24 22:00 68
[2024-03-23] MEDS: PROPRANOLOL HCL 10 MG TAB PO STA (10:10)
--- NOTE | 2024-03-23 11:48 | Discharge Summary ---
Date of Service March 23, 2024 Admission HPI Per Admitting Provider History obtained from patient and records. Medical history significant for ADHD, anxiety/mood disorder, fatty liver as per records, chronic pancytopenia (baseline hemoglobin of 11), ongoing tobacco/alcohol abuse. Last confinement December 2023 for alcohol withdrawal. Patient discharged home. Patient started drinking again last month due to personal stressors. Patient confined at [facility] inpatient rehab few weeks ago and was discharged home last week. Patient comes to detox following request of friend and family. Patient denies headache, chest pain, SOB, unusual abdominal pain. Poor appetite with nausea emesis symptoms. Lowest SBP at the ER is noted to be 90s. Medical Historyas above Surgical History : Hand surgery, dental surgery Family History : Alcoholism, A-fib, dementia Personal/Social history : 1 pack daily, alcohol abuse, currently unemployed Admission Exam Per Admitting Provider GENERAL: Anxious, uncomfortable, alcoholic fetor, no respiratory distress SKIN: Pallor, warm HEENT: Pale palpebral conjunctivae, no ptosis, dry buccal mucosa NECK : Supple, no tenderness CHEST : CTA, no tenderness HEART : RRR, no obvious murmurs ABDOMEN: Some distention, nontender EXTREMITIES : No LE swelling/tenderness, no other conspicuous deformities noted NEUROLOGIC : Coherent, no facial asymmetry, gait and stance not assessed Principal Diagnosis Alcohol withdrawal: Alcoholic hepatitis Hypokalemia Hypophosphatemia Hypomagnesemia Tobacco use disorder Discharge Data Allergies Allergy/AdvReac Type Severity Reaction Status Date / Time nickel Allergy Rash Verified 01/06/24 16:22 Consultations 03/15/24 22:59 ED Decision to Admit Stat 03/20/24 09:47 Consult Behavioral Health Liaison Routine Procedures Performed Laboratory Results WBC 3.76 K/ul (4.8-10.8) L 03/21/24 06:47 RBC 3.32 M/uL (4.20-5.40) L 03/21/24 06:47 Hgb 10.8 g/dl (12.0-16.0) L 03/21/24 06:47 Hct 32.5 % (37.0-47.0) L 03/21/24 06:47 MCV 97.9 fL (80.0-100.0) 03/21/24 06:47 MCH 32.5 pg (25.0-34.0) 03/21/24 06:47 MCHC 33.2 g/dL (32.0-36.0) 03/21/24 06:47 RDW Std Deviation 48.7 fL (36.4-46.3) H 03/21/24 06:47 RDW Coeff of Edgar 13.6 % (11.5-14.5) 03/21/24 06:47 Plt Count 113 K/uL (130-400) L 03/21/24 06:47 MPV 10.0 fL (9.4-12.4) 03/21/24 06:47 Immature Gran % (Auto) 0.5 % 03/21/24 06:47 Neut % (Auto) 42.9 % 03/21/24 06:47 Lymph % (Auto) 42.8 % 03/21/24 06:47 Dillon % (Auto) 8.2 % 03/21/24 06:47 Eos % (Auto) 5.1 % 03/21/24 06:47 Baso % (Auto) 0.5 % 03/21/24 06:47 Neut # (Auto) 1.61 K/uL (1.40-6.50) 03/21/24 06:47 Lymph # (Auto) 1.61 K/uL (1.20-3.40) 03/21/24 06:47 Dillon # (Auto) 0.31 K/uL (0.11-0.59) 03/21/24 06:47 Eos # (Auto) 0.19 K/uL (0.00-0.50) 03/21/24 06:47 Baso # (Auto) 0.02 K/uL (0.00-0.20) 03/21/24 06:47 Immature Gran # (Auto) 0.02 K/uL (0.01-0.20) 03/21/24 06:47 PT 10.6 Seconds (9.0-12.0) 03/15/24 21:27 INR 1.0 (0.9-1.1) 03/15/24 21: VBG pH 7.32 (7.36-7.41) L 03/16/24 07:07 VBG pCO2 32 mmHg (38-50) L 03/16/24 07:07 VBG pO2 47 mmHg 03/16/24 07:07 VBG HCO3 17 mmol/L 03/16/24 07:07 VBG O2 Saturation 77.7 % 03/16/24 07:07 VBG Base Excess -8.5 mEq/L 03/16/24 07:07 Sodium 137 mmol/L (136-145) 03/22/24 07:13 Potassium 3.9 mmol/L (3.5-5.1) 03/22/24 07:13 Chloride 104 mmol/L (98-107) 03/22/24 07:13 Carbon Dioxide 27 mmol/L (21-32) 03/22/24 07:13 Anion Gap 6 (3-11) 03/22/24 07:13 BUN 18 mg/dl (6-23) 03/22/24 07:13 Creatinine 0.79 mg/dl (0.6-1.2) 03/22/24 07:13 Est Cr Clr Drug Dosing 80.9 ml/min 03/22/24 07:13 Est GFR ( Amer) 107.8 ml/min 03/22/24 07:13 Est GFR (Non-Af Amer) 93.0 ml/min 03/22/24 07:13 BUN/Creatinine Ratio 22.8 (10-20) H 03/22/24 07:13 Glucose 101 mg/dl (70-99(Fasting)) H 03/22/24 07:13 POC Glucose 98 mg/dl (70-99) 03/19/24 16:22 Calcium 8.8 mg/dl (8.6-10.3) 03/22/24 07:13 Phosphorus 3.8 mg/dl (2.5-4.9) D 03/22/24 07:13 Magnesium 1.8 mg/dl (1.7-2.4) 03/22/24 07:13 Total Bilirubin 0.6 mg/dl (0.2-1.0) 03/16/24 07:07 AST 209 U/L (13-39) H 03/16/24 07:07 ALT 91 U/L (7-52) H 03/16/24 07:07 Alkaline Phosphatase 65 U/L (34-104) 03/16/24 07:07 Total Protein 6.6 gm/dl (6.0-8.3) 03/16/24 07:07 Albumin 4.1 gm/dl (3.4-5.0) 03/16/24 07:07 Globulin 2.5 gm/dl (2.5-4.0) 03/16/24 07:07 Albumin/Globulin Ratio 1.6 (0.9-2) 03/16/24 07:07 Vitamin B12 624 pg/ml (180-914) 03/17/24 06:00 Folate 10.84 ng/ml (>5.38) 03/17/24 06:00 HCG, Qual Negative (Negative) 03/15/24 21:27 Urine Color Yellow 03/15/24 22:30 Urine Appearance Clear (Clear) 03/15/24 22:30 Urine pH 5.5 (4.5-7.5) 03/15/24 22:30 Ur Specific [place] 1.019 (1.000-1.030) 03/15/24 22:30 Urine Protein 2+ (Negative) H 03/15/24 22:30 Urine Glucose (UA) Negative (Negative) 03/15/24 22:30 Urine Ketones 4+ (Negative) H 03/15/24 22:30 Urine Blood Negative (Negative) 03/15/24 22:30 Urine Nitrite Negative (Negative) 03/15/24 22:30 Urine Bilirubin Negative (Negative) 03/15/24 22:30 Urine Urobilinogen Negative (Negative) 03/15/24 22:30 Ur Leukocyte Esterase Negative (Negative) 03/15/24 22:30 Urine WBC (Auto) 0-5 /hpf (0-5) 03/15/24 22:30 Urine RBC (Auto) 0-2 /hpf (0-2) 03/15/24 22:30 U Hyaline Cast (Auto) 3-5 /lpf (0-2) H 03/15/24 22:30 U Epithel Cells (Auto) 3-5 /hpf (0-2) H 03/15/24 22:30 Urine Bacteria (Auto) 1+ (None Seen) H 03/15/24 22:30 Ethyl Alcohol mg/dL 498.9 mg/dl (<10.0) H 03/15/24 21:27 Hospital Course (1) Alcohol withdrawal: Alcohol withdrawal: Alcoholic hepatitis, likely good prognosis on Maddrey's DF with PT within normal limits DT precautions Counseled to quit alcohol use No significant withdrawal symptoms currently Case management to help with discharge planning Continue thiamine, folic acid Plan to discharge to rehab facility today Anxiety/mood disorder, at baseline Appreciate behavioral services input and recommendation. Gabapentin discontinued Hydroxyzine PRN Continue propranolol Electrolyte imbalance Significant hypophosphatemia-secondary to alcohol use Hypokalemia Hypophosphatemia Replace electrolytes as needed Hypotension BP usually runs low per patient Hold diuretics for now as no signs of volume overload Monitor BP Chronic anemia Pancytopenia Hb better than baseline on presentation secondary to hemoconcentration Likely due to alcohol use Monitor CBC Ongoing tobacco abuse Nicotine replacement therapy DVT Px: SCDs Re: Thrombocytopenia Code Status Full code Disposition Rehab Total Time Total Time Spent Total Time Spent (In Minutes): 52 minutes Discharge Plan Discharge Items Patient Disposition: Drug & Alcohol Rehab Reason For Visit: HYPOTENSION, ETOH WITHDRAWAL Discharge Diagnosis: Alcohol withdrawal: Alcoholic hepatitis Hypokalemia Hypophosphatemia Hypomagnesemia Tobacco use disorder Condition on Discharge: Good Activity: Per Instructions section Exercise/Sports: Gradually increase as tolerated Non-emergency contact: Primary Care Provider Call non-emergency contact if: you have any medication questions, your symptoms worsen, your pain is concerning for you and you have a fever Follow-up/Referrals: Aj Gaston MD [Primary Care Provider] - Diet: Heart Healthy Addtl Attending Provider Instructions: Follow-up with your primary care physician Dr. Gaston in 1 week upon discharge from rehab facility -- Quit drinking alcohol, quit smoking as advised. Seek immediate medical attention if your symptoms reoccur or worsen Please take all medications as instructed on discharge list below. Please call if you have any questions or problems. You can reach a [facility] hospitalist on duty at [facility] 24 hours a day by calling [phone] Pending Studies at Discharge: No Stand-Alone Forms: My [facility] Skilled Items Patient informed of condition?: Yes DNR: No Discharge Level of Care: Other Communicable Disease: No Discharge Prognosis: Stable Lines: None Urinary Catheter: No Medications and DC Order Prescriptions: New thiamine HCl (vitamin B1) 100 mg Tablet 100 mg PO QAM Qty: 30 0RF folic acid 1 mg Tablet 1 mg PO QAM Qty: 30 0RF nicotine 7 mg/24 hr Patch 24 Hour 1 patch transdermal QAM Qty: 0 0RF Continued acetaminophen [Tylenol Extra Strength] 500 mg Tablet 500 - 1,000 mg PO Q6H PRN (Reason: Pain) albuterol sulfate [Ventolin HFA] 90 mcg/actuation Hfa Aerosol Inhaler 2 puff INHALATION QID PRN (Reason: Shortness Of Breath Or Wheezing) amitriptyline 100 mg tablet 100 mg PO HS PRN (Reason: Sleep) melatonin 10 mg Tablet 10 mg PO HS hydroxyzine pamoate 100 mg capsule 100 mg PO TID PRN (Reason: Anxiety) propranolol 10 mg tablet 10 mg PO TID PRN (Reason: Anxiety) sertraline 50 mg tablet 50 mg PO QAM multivitamin Tablet 1 tab PO DAILY docosanol 10 % cream 1 applic TOPICAL UD PRN (Reason: Sleep) Held gabapentin 300 mg capsule 300 mg PO TID Hold Instructions: Until further recommendations from your primary care physician lorazepam 1 mg tablet 1 mg PO DAILY PRN (Reason: Anxiety) Hold Instructions: Until further recommendations from your primary care physician torsemide 10 mg tablet 10 mg PO QAM Hold Instructions: Hold for now. Can use as needed if leg edema worsens. Discuss with your physician for further instructions. Discharge Orders: Discharge Order (Routine); Ordered 03/23/24 Ordered By: Erick Alexander Admission Data Admit Date/Time: 03/16/24 01:30 Attending Provider: Erick Alexander Admit Provider: Jimi Zavala Primary Care Provider: Aj Gaston Other Providers: Jimi Zavala
[2024-03-23] MEDS ORDERED: PROPRANOLOL HCL 10 MG TAB PO SCH (14:00)
== END 2024-03-23 13:13 | disposition alcohol treatment (31) | DRG 897 ==
LOC: ED 20:50 → 2S 03-16 01:30 → SUATTDRO 03-16 01:30 → 2S 03-16 02:47

== ENCOUNTER 2024-07-25 15:52 | Inpatient (IN) ==
--- NOTE | 2024-07-25 16:16 | Emergency Department Note ---
Impression & Plan Tachycardia, Hypomagnesemia, Alcohol abuse, Alcohol withdrawal, ZUHAIR (acute kidney injury), Vomiting ED Provider Note NAME: ADIA NAVARRO AGE: 43 SEX: F : 1980 ARRIVES VIA: Walk-In INFORMANT: [Patient][mother] ED PROVIDER(S): [Konrad Corbin MD] CHIEF COMPLAINT: Tachycardia, vomiting HISTORY OF PRESENT ILLNESS: The patient is a 43-year-old female with a history of alcohol abuse. She states that she has been drinking heavily again and has been trying to detox over the last week. She has been having some intermittent alcohol daily to try to get off of alcohol. In the last 24 hours, she has been vomiting and she feels her heart race, she cannot take anything in by mouth. She thinks that she is going through alcohol withdrawal. Last heavy alcohol intake was over a week ago. There has been no cough or congestion, no fever. She does feel anxious. She has had a seizure in the past from alcohol withdrawal. She is looking to for alcohol detox. PMHx/PSHx/Social Hx: See Below PHYSICAL EXAM: GENERAL: Patient is in no acute distress. HEENT: No acute trauma, normocephalic atraumatic, mucous membranes moist, no nasal congestion. NECK: No stridor, no adenopathy, no meningismus, trachea is midline. LUNGS: Clear to auscultation bilaterally, no wheeze, no rhonchi, breath sounds equal. HEART: Tachycardic, regular rhythm, no murmurs. ABDOMEN: Soft, nontender, no peritonitis. EXTREMITIES: No cyanosis, full range of motion of all the joints without pain or difficulty. NEUROLOGIC: Awake with some slight speech slur. She is a very poor historian. Moves all extremities. SKIN: No jaundice, no diaphoresis. DIFFERENTIAL DIAGNOSIS: Alcohol withdrawal, alcohol detox, alcohol abuse, dehydration, electrolyte imbalance, dysrhythmia, among others. EMERGENCY DEPARTMENT PROCEDURES: MEDICAL DECISION MAKING: There is no leukocytosis or concerning anemia. There is a normal platelet count. There was an anion gap noted. The CO2 was low at 14. Sodium was slightly low. Chloride was low. Creatinine was elevated at 1.70. Magnesium was low at 1.6. There were some subtle liver enzyme elevations, likely from her alcohol abuse. The patient appeared to be in a euthyroid state. Lipase was elevated, likely from her alcohol abuse and vomiting. ECG showed a sinus tachycardia, no dysrhythmia or ischemia. Cardiac enzyme testing x 1 is not consistent with acute cardiac injury. Urinalysis shows dehydration with 4+ ketones. No findings of infection. Alcohol level was undetectable. Chest film did not show pneumonia or CHF. On exam, patient was tachycardic and complaining of nausea. Patient received IV thiamine and IV folate. She was given 2 L of IV saline. She received IV Phenergan, a second dose of IV Phenergan was given. She received IV Protonix, IV Zofran. A second dose of IV Zofran was given. She was given IV magnesium. She received IV Valium and IV Pepcid. The patient presents with tachycardia, vomiting. She is very likely in alcohol withdrawal. Her electrolyte disturbances are all from her alcohol abuse and vomiting/dehydration. Patient is in need of a hospital stay. I did speak with case management and the on-call hospitalist. The patient seems to be improving with the treatment provided in the ED. Prior/Outside records/notes reviewed: None ECG per my interpretation: Indication was tachycardia. The ECG shows a sinus tachycardia with a rate of 129. There is diffuse nonspecific ST change. There is no ST elevation, no PVCs. The QTc was 401. Continuous Cardiac Monitoring per my interpretation: An order was placed for continuous cardiac monitoring. The monitor shows a rate of 142 with sinus tachycardia. Imaging/x-ray results per my interpretation: Chest x-ray does not show mediastinal widening, pneumonia or pneumothorax. Chronic Medical/Social conditions affecting care: History of alcoholism. Care/Management discussed with: Case management, the on-call hospitalist. Level of care consideration(s): After review of the information above and other included data: --I believe the patient requires escalation of care to admission Critical Care Note: I have personally spent 41 minutes of critical care time in the direct management of this patient. This includes bedside care, interpretation of diagnostic studies, and testing, discussion with consultants, patient, and family members, and other required patient management activities. This 41 minutes is in excess of all separately billable procedures. DISPOSITION: Admission Past Med/Surg History Problem List (Updated 07/25/24 @ 22:16 by Konrad Corbin MD) Vomiting (Acute) ZUHAIR (acute kidney injury) (Acute) Alcohol withdrawal (Acute) Alcohol abuse (Acute) Hypomagnesemia (Acute) Tachycardia (Acute) Alcohol withdrawal Alcoholic ketoacidosis (Acute) Contusion (Acute) Alcoholic intoxication (Acute) Alcohol abuse (Acute) Weakness (Acute) Hypomagnesemia (Acute) Hallucinations (Acute) Alcohol abuse (Acute) S/P nasal surgery septoplasty and rhinoplasty-both w/Dr. Castañeda Allergic rhinitis Abnormal uterine bleeding ADD (attention deficit disorder) Insomnia Restless leg Anxiety and depression (Chronic) Fatty liver (Chronic) Alcohol dependence (Chronic) Medical History Tobacco use disorder Intractable nausea and vomiting Depression Anxiety Surgical History H/O wisdom tooth extraction Family History Aunt Breast cancer, Onset Age: 65 paternal Asthma maternal Grandfather (Paternal) Prostate cancer Aunt Allergies maternal Family/Other Allergies cousins Asthma cousins Other No family history of adverse response to anesthesia No family history of bleeding disorder Denies family history of Ovarian cancer Colorectal cancer Social History Smoking Status: Current every day smoker Tobacco Type: Cigarettes Age Started Using Tobacco: 20; packs per day: 0.5; Cigarettes Per Day: 4; Second Hand Exposure: No; Do You Dip or Chew Tobacco: No; Tobacco Cessation Education Requested by Patient: No Hx Alcohol Use: Yes Alcohol type: hard liquor Hx Substance Use: No Preferred Language: Kyrgyz 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 Ability: Effective [employer]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 Beliefs That Will Affect Care: None marital status: Single Current Living Situation: Alone Other Information That Helps Us Care for You: No Feels Safe at Home: Yes Safety Concerns: Feels Safe At This Time Assistive Devices: None Allergies Allergies Allergy/AdvReac Type Severity Reaction Status Date / Time nickel Allergy Rash Verified 01/06/24 16:22 Home Meds Home Medications Medication Instructions Recorded Confirmed acetaminophen 500 mg tablet 500 - 1,000 mg PO Q6H PRN Pain 08/14/23 07/25/24 (Tylenol Extra Strength) albuterol sulfate 90 mcg/actuation 2 puff inhalation QID PRN 08/14/23 07/25/24 aerosol inhaler (Ventolin HFA) Shortness Of Breath Or Wheezing gabapentin 300 mg capsule 300 mg PO TID 01/06/24 07/25/24 amitriptyline 100 mg tablet 125 mg PO HS PRN Sleep 03/15/24 07/25/24 hydroxyzine pamoate 100 mg capsule 100 mg PO TID PRN Anxiety 03/15/24 07/25/24 sertraline 50 mg tablet 100 mg PO QAM 03/15/24 07/25/24 torsemide 10 mg tablet 10 mg PO QAM 03/15/24 07/25/24 topiramate 100 mg tablet 100 mg TID 07/25/24 07/25/24 topiramate 25 mg tablet 25 mg BID 07/25/24 07/25/24 Results & Data (ED) Vital Signs Vital Signs - 24 hr 07/25/24 15:53 07/25/24 16:17 07/25/24 16:43 Temperature 36.7 C Temperature Source Temporal Artery Scan Pulse Rate 146 H 117 H 108 H Pulse Rate [Apical] Pulse Rhythm Regular Respiratory Rate 20 22 Respiratory Effort / Characteristics Non-Labored Spontaneous Respiratory Depth Normal Respiratory Pattern Blood Pressure 116/83 Blood Pressure [Left Arm] Blood Pressure Mean 94 Blood Pressure Mean [Left Arm] Blood Pressure Position Sitting Blood Pressure Position [Left Arm] Pulse Oximetry 98 100 Oxygen Delivery Method Room Air Room Air Sepsis Recent Fever Within 48 Hours No Sepsis New/Unexplained Change in Mental Status N/A Sepsis Action Taken by Nursing No Action Required 07/25/24 17:00 07/25/24 17:00 Temperature Temperature Source Pulse Rate Pulse Rate [Apical] 110 H Pulse Rhythm Respiratory Rate 20 Respiratory Effort / Characteristics Non-Labored Spontaneous Respiratory Depth Normal Respiratory Pattern Regular Blood Pressure Blood Pressure [Left Arm] 127/92 Blood Pressure Mean Blood Pressure Mean [Left Arm] 103 Blood Pressure Position Blood Pressure Position [Left Arm] Semi-fowlers Pulse Oximetry 100 100 Oxygen Delivery Method Room Air Room Air Sepsis Recent Fever Within 48 Hours Sepsis New/Unexplained Change in Mental Status Sepsis Action Taken by [facility] Medications Current Medication List: was personally reviewed by me Laboratory Data Attestation: I reviewed the patient's lab results. 07/25/24 Unknown 07/25/24 Unknown Administered Medications Heparin Sodium (Porcine) (Heparin Sod 5,000 Unit/0.5 Ml Vial) 5,000 units SQ Q8 TIN Stop: 08/24/24 21:59 Last Admin: 07/25/24 21:09 Dose: 5,000 units Documented By: RAJESH Discontinued Medications Diazepam (Diazepam 5 Mg/Ml 10ml Vial) 5 mg IV NOW STA Stop: 07/25/24 16:12 Last Admin: 07/25/24 16:58 Dose: 5 mg Documented By: ISH Gabapentin (Gabapentin 600 Mg Tab) 1,200 mg PO NOW ONE Stop: 07/25/24 18:49 Last Admin: 07/25/24 20:42 Dose: 1,200 mg Documented By: RAJESH Sodium Chloride (Nss) 1,000 mls @ 999 mls/hr IV .Q1H1M ONE Stop: 07/25/24 17:11 Last Infusion: 07/25/24 17:39 Dose: Infused Documented By: Admin: 07/25/24 16:17 Dose: 999 mls/hr Documented By: GERRI Promethazine HCl (Phenergan) 6.25 mg in 50.25 mls @ 201 mls/hr IV NOW STA Stop: 07/25/24 16:25 Last Infusion: 07/25/24 17:39 Dose: Infused Documented By: Admin: 07/25/24 17:09 Dose: 201 mls/hr Documented By: ISH Thiamine HCl 100 mg/ Syringe 10 mls @ 2 mls/min IV NOW STA Stop: 07/25/24 16:15 Last Admin: 07/25/24 17:15 Dose: 2 mls/min Documented By: ISH Folic Acid 1 mg/ Syringe 10 mls @ 5 mls/min IV NOW STA Stop: 07/25/24 16:12 Last Admin: 07/25/24 17:17 Dose: 5 mls/min Documented By: ISH Famotidine (Pepcid 20mg Iv Push) 20 mg in 5 mls @ 2.5 mls/min IV NOW STA Stop: 07/25/24 16:45 Last Admin: 07/25/24 17:04 Dose: 2.5 mls/min Documented By: ISH Pantoprazole Sodium (Protonix) 40 mg in 10 mls @ 5 mls/min IV NOW ONE Stop: 07/25/24 16:45 Last Admin: 07/25/24 17:53 Dose: 5 mls/min Documented By: LUDA Magnesium Sulfate/Dextrose (Magnesium Sulfate / D5w) 1 gm in 100 mls @ 100 mls/hr IV NOW STA Stop: 07/25/24 18:06 Last Infusion: 07/25/24 19:47 Dose: Infused Documented By: [facility] Admin: 07/25/24 17:53 Dose: 100 mls/hr Documented By: LUDA Sodium Chloride (Nss) 1,000 mls @ 999 mls/hr IV .Q1H1M ONE Stop: 07/25/24 18:46 Last Infusion: 07/25/24 19:48 Dose: Infused Documented By: Admin: 07/25/24 17:54 Dose: 999 mls/hr Documented By: LUDA Promethazine HCl (Phenergan) 12.5 mg in 50.5 mls @ 202 mls/hr IV NOW STA Stop: 07/25/24 18:07 Last Infusion: 07/25/24 19:48 Dose: Infused Documented By: Admin: 07/25/24 18:04 Dose: 202 mls/hr Documented By: LUDA Metoclopramide HCl (Metoclopramide Hcl Inj 5 Mg/Ml 2 Ml Vial) 5 mg IV ONE ONE Stop: 07/25/24 21:04 Last Admin: 07/25/24 21:11 Dose: 5 mg Documented By: RAJESH Ondansetron HCl (Ondansetron Inj 2 Mg/Ml 2 Ml Vial) 4 mg IV NOW STA Stop: 07/25/24 16:12 Last Admin: 07/25/24 17:03 Dose: 4 mg Documented By: ISH Ondansetron HCl (Ondansetron Inj 2 Mg/Ml 2 Ml Vial) 4 mg IV NOW STA Stop: 07/25/24 17:54 Last Admin: 07/25/24 18:05 Dose: 4 mg Documented By: LUDA Imaging Data Radiologist's Impression: Chest X-Ray 07/25/24 16:12 XR chest 1V portable HISTORY: 43 years-old Female weakness COMPARISON: 05/08/2017 TECHNIQUE: AP view of the chest FINDINGS: Cardiomediastinal and hilar silhouettes are within normal limits. No pneumothorax, pleural effusion or airspace consolidation. Bones appear grossly intact. Sigmoidal thoracolumbar scoliosis. IMPRESSION: No acute process. ACT 112: Negative or not required by law. The above report was generated using voice recognition software. It may contain grammatical, syntax or spelling errors. Electronically signed by: Rob Payne M.D. 07/25/2024 4:57 PM Discharge Plan Visit Data Chief Complaint: Tachycardia Stated Complaint: TACHYCARDIA,FATIGUE,VOMITING ED Provider: Konrad Corbin Discharge Problem: Tachycardia, Hypomagnesemia, Alcohol abuse, Alcohol withdrawal, ZUHAIR (acute kidney injury), Vomiting Patient Disposition: Admitted As Inpatient Condition: Serious Discharge Instructions Interventions: ED Discharge Assessment Last Done: 07/25/24 18:23 Discharge Problem: Alcohol withdrawal Qualifiers: Complication of substance-induced condition: with unspecified complication Q ualified Code(s): F10.939 - Alcohol use, unspecified with withdrawal, unspecified Vomiting Qualifiers: Vomiting type: unspecified Nausea presence: with nausea Qualified Code(s): R 11.2 - Nausea with vomiting, unspecified
[2024-07-25] MEDS: SODIUM CHLORIDE 0.9% 1,000 ML IV ONE ×2 (16:17→17:54)
[2024-07-25 16:42] LABS: Basophils # (auto) 0.03 K/uL (0.00-0.20); Basophils % (auto) 0.4 %; Hematocrit (blood only) 42.8 % (37.0-47.0); Hemoglobin 15.3 g/dl (12.0-16.0); Immature Granulocytes # (auto) 0.02 K/uL (0.01-0.20); Immature Granulocytes % (auto) 0.2 %; Lymphocytes # (auto) 0.56 K/uL (1.20-3.40); Mean Corpuscular Hemoglobin 33.6 pg (25.0-34.0); Mean Corpuscular Hgb Conc 35.7 g/dL (32.0-36.0); Mean Corpuscular Volume 93.9 fL (80.0-100.0); Mean Platelet Volume 9.7 fL (9.4-12.4); Monocytes # (auto) 0.45 K/uL (0.11-0.59); Monocytes % (auto) 5.6 %; Neutrophils # (auto) 6.97 K/uL (1.40-6.50); Neutrophils % (auto) 86.8 %; Platelet Count 160 K/uL (130-400); RDW Coefficient of Variation 15.9 % (11.5-14.5); RDW Standard Deviation 53.4 fL (36.4-46.3); Red Blood Count 4.56 M/uL (4.20-5.40); White Blood Count 8.03 K/ul (4.8-10.8)
[2024-07-25 16:57] LABS: Albumin Globulin Ratio 1.7 (0.9-2); Albumin Level 5.4 gm/dl (3.4-5.0); BUN Creatinine Ratio 14.1 (10-20); Bilirubin,Total 1.1 mg/dl (0.2-1.0); Calcium 9.5 mg/dl (8.6-10.3); Creatinine Clr Calc Pharmacy 35.7 ml/min; Globulin 3.2 gm/dl (2.5-4.0); Magnesium 1.6 mg/dl (1.7-2.4); Potassium 4.7 mmol/L (3.5-5.1); Total Protein 8.6 gm/dl (6.0-8.3)
[2024-07-25] MEDS: diazePAM 5 MG/ML 10ML VIAL IV STA (16:58)
--- NOTE | 2024-07-25 16:58 | XRay Report ---
XR chest 1V portable HISTORY: 43 years-old Female weakness COMPARISON: 05/08/2017 TECHNIQUE: AP view of the chest FINDINGS: Cardiomediastinal and hilar silhouettes are within normal limits. No pneumothorax, pleural effusion o r airspace consolidation. Bones appear grossly intact. Sigmoidal thoracolumbar scoliosis. IMPRESSION: No acute process. ACT 112: Negative or not required by law. The above report was generated using voice recognition software. It may contain grammatical, syntax o r spelling errors. Electronically signed by: Rob Payne M.D. 07/25/2024 4:57 PM
[2024-07-25 17:03] LABS: Troponin I High Sensitivity 5.8 pg/ml (0-14)
[2024-07-25] MEDS: ONDANSETRON INJ 2 MG/ML 2 ML VIAL IV STA ×2 (17:03→18:05)
[2024-07-25] MEDS: FAMOTIDINE 20MG IV PUSH 20 MG/5 ML SYR IV STA (17:04)
[2024-07-25] MEDS: PROMETHAZINE 6.25 MG/50.25 ML BAG IV STA (17:09)
[2024-07-25 17:12] LABS: Thyroid Stimulating Hormone 1.011 uIu/ml (0.300-4.500)
[2024-07-25] MEDS: THIAMINE HCL 100 MG in SYRINGE 9 ML IV STA (17:15)
[2024-07-25] MEDS: FOLIC ACID 1 MG in SYRINGE 9.8 ML IV STA (17:17)
--- NOTE | 2024-07-25 17:44 | History & Physical Report ---
Date of Service July 25, 2024 Assessment & Plan (1) Alcoholic ketoacidosis: (2) Alcohol withdrawal: Plan Ms. Nathan is a 43 year old woman with medical history significant for ADHD, anxiety/mood disorder, migraines, chronic pancytopenia (baseline hemoglobin of 11), ongoing tobacco/alcohol abuse presented to [facility] ED due to alcohol withdrawal. Patient with provided mixed recollection of events: noting last drink to be anywhere from 48 hours to 2 weeks prior to arrival. Patient with improvement s/p IVF. Plan to monitor with AWSS and assess resolution of symptoms #Alcohol withdrawal: last drink 07/24 AWSS per protocol Gabapentin taper started, then to resume home gabapentin #Sinus tachycardia likely 2/2 dehydration/vomiting/withdrawal possibly improved with ivf monitor on tele #Transaminitis:AST elevation, likely secondary to alcohol use. Ct ABD without concerns of pancreatitis, fatty liver, gallbladder/ductal dilatation Lipase added Repeat cmp in am #Migraines Topamax 125mg qam, 100mg noon, 125mg qpm Continue regimen #Anxiety/mood disorder, at baseline QTc 407 Continue Hydroxyzine PRN anxiety Continue 125mg amitriptyline qhs prn Continue 100mg qam sertraline #Anion gap metabolic acidosis, hypochloremic likely secondary vomiting/ketosis Trend labs in am encourage po intake #ZUHAIR #Pedal edema prescribed torsemide daily for intermittent pedal edema baseline 0.5-0.8, on admission 1.7 s/p IVF, suspect 2/2 prerenal: dehydration UA ordered hold home torsemide #Hypomagnesemia likely iso chronic alcohol misuse replace IV then plan for po--possible slow mag or mag oxide replacement #Chronic anemia Hgb 15 on admission, anticipate drop continue thiamine and folate #Prior tobacco abuse reports 2-3 months without cigarette DVT heparin sq Dispo contingent on IV lorazepam requirments Admission and Anticipated Discharge Date Admission Date: Time spent evaluating patient, direct bedside care, chart review, placing orders, interpretation of diagnostic studies, discussion with consultants, patient, and family members, as well as other required patient management activities is 75 minutes. History of Present Illness Chief Complaint: Palpitations Primary Care Provider: Aj Gaston MD Ms. Nathan is a 43 year old woman with medical history significant for ADHD, anxiety/mood disorder, fatty liver as per records, chronic pancytopenia (baseline hemoglobin of 11), ongoing tobacco/alcohol abuse presented to [facility] ED due to palpitations. Patient informed ED physician that she had been attempting to ween herself off a lcohol, but then became notably ill two days ago. She informed this lead technical writer that her last drink was likely 2 weeks ago, but unable to say "for sure." She states she often mixes her alcohol with "water" and it "really isnt that much." Worked for further history however patient retching and tremulous. Patient reports abdominal pain, nausea, vomiting, and weakness. Patient states she quit smoking--noting her last cigarette was maybe 1-4 months ago. Patient very difficult to get story from at this time, able to confirm medications from epic/pharmacy fills/patient. In the ED, vitals were notable for BP of 110-120s HR of 110s-140s, and O2 sat of 100 on Room air Imaging revealed unremarkable CXR EKG tachycardia 120s ED interventions: diazepam 5mg IV, s/p 1 L NS, thiamine/folic acid Patient to be admitted to pcu for further evaluation and management of alcohol withdrawal Allergies Allergy/AdvReac Type Severity Reaction Status Date / Time nickel Allergy Rash Verified 01/06/24 16:22 Home Medications Medication Instructions Recorded Confirmed Type acetaminophen 500 mg tablet 500 - 1,000 mg PO Q6H PRN Pain 08/14/23 07/25/24 History (Tylenol Extra Strength) albuterol sulfate 90 mcg/actuation 2 puff inhalation QID PRN 08/14/23 07/25/24 H istory aerosol inhaler (Ventolin HFA) Shortness Of Breath Or Wheezing gabapentin 300 mg capsule 300 mg PO TID 01/06/24 07/25/24 History amitriptyline 100 mg tablet 125 mg PO HS PRN Sleep 03/15/24 07/25/24 History hydroxyzine pamoate 100 mg capsule 100 mg PO TID PRN Anxiety 03/15/24 07/25/24 History sertraline 50 mg tablet 100 mg PO QAM 03/15/24 07/25/24 History torsemide 10 mg tablet 10 mg PO QAM 03/15/24 07/25/24 History topiramate 100 mg tablet 100 mg TID 07/25/24 07/25/24 History topiramate 25 mg tablet 25 mg BID 07/25/24 07/25/24 History Past Med/Surg History Problem List (Updated 04/23/24 @ 00:07 by Adrián Maloney) Alcohol withdrawal Alcoholic ketoacidosis (Acute) Contusion (Acute) Alcoholic intoxication (Acute) Alcohol abuse (Acute) Weakness (Acute) Hypomagnesemia (Acute) Hallucinations (Acute) Alcohol abuse (Acute) S/P nasal surgery septoplasty and rhinoplasty-both w/Dr. Castañeda Allergic rhinitis Abnormal uterine bleeding ADD (attention deficit disorder) Insomnia Restless leg Anxiety and depression (Chronic) Fatty liver (Chronic) Alcohol dependence (Chronic) Medical History Tobacco use disorder Intractable nausea and vomiting Alcohol withdrawal Depression Anxiety Surgical History H/O wisdom tooth extraction Family History Aunt Breast cancer, Onset Age: 65 paternal Asthma maternal Grandfather (Paternal) Prostate cancer Aunt Allergies maternal Family/Other Allergies cousins Asthma cousins Other No family history of adverse response to anesthesia No family history of bleeding disorder Denies family history of Ovarian cancer Colorectal cancer Social History Smoking Status: Current every day smoker Tobacco Type: Cigarettes Age Started Using Tobacco: 20; packs per day: 0.5; Cigarettes Per Day: 4; Second Hand Exposure: No; Do You Dip or Chew Tobacco: No; Tobacco Cessation Education Requested by Patient: No Hx Alcohol Use: Yes Alcohol type: hard liquor Hx Substance Use: No Preferred Language: Cymraes 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 Ability: Effective Research Director Required: No Beliefs That Will Affect Care: None marital status: Single Current Living Situation: Alone Other Information That Helps Us Care for You: No Feels Safe at Home: Yes Safety Concerns: Feels Safe At This Time Assistive Devices: None Review of Systems Review of Systems: Constitutional: (-) fever/chills, (-) recent loss of weight, (++) appetite changes, (-) night sweats. Head: (++) headache, (-) dizziness. Eye: (-) blurring of vision, (-) double vision, (-) redness. Ear: (-) hearing loss, (-) discharge, (-) vertigo Nose: (-) discharge, (-) bleeding, (-) congestion, (-) post nasal drip. Throat: (-) sore throat, (-) hoarseness of voice, (-) odynophagia. Cardiovascular: (-) chest pain, (++) palpitations, (-) syncope, (-) orthopnea Respiratory: (-) shortness of breath, (-) cough, (-) wheezing, (-) hemoptysis. Neuro: (-) weakness in extremities, (-) numbness, (-) tingling, (-) tremor. Gastrointestinal: (+) belly pain, (-) belly distension, ++) nausea, (++) vomiting, (-) diarrhea, (-) constipation, Genitourinary: (-) hematuria, (-) dysuria, (-) polyuria, (-) hesitancy, (-) frequency, (-) urinary incontinence. Musculoskeletal: (-) myalgia, (-) arthralgia. Skin: (-) rashes. Endocrine: (-) heat/cold intolerance. Psychiatry: (-) depression, (-) hallucination. Physical Exam Physical Exam: GENERAL APPEARANCE: AxOx2, tremulous anxious acutely ill, HEENT: NC, AT. MMM. EOMI, clear conjunctiva, oropharynx clear. NECK: Supple without lymphadenopathy. HEART: tachycardic LUNGS: CTAB, moving air well. No crackles or wheezes are heard. ABDOMEN: Soft, reports general discomfort no obvious tender points nondistended with good bowel sounds heard. BACK: No CVAT, no obvious deformity. EXTREMITIES: Without cyanosis, clubbing or edema. NEUROLOGICAL: Grossly nonfocal. moving all 4 extremities. CN not formally tested but appear grossly intact. Skin: Warm and dry without any rash. Results & Data Results & Data Vital Signs (Past 12 Hours) Vital Signs Temp Pulse Pulse Resp BP BP Pulse Ox 07/25/24 17:00 110 H 20 127/92 100 07/25/24 17:00 100 07/25/24 16:43 108 H 07/25/24 16:17 117 H 22 100 07/25/24 15:53 36.7 C 146 H 20 116/83 98 O2 Del Method 07/25/24 17:00 Room Air 07/25/24 17:00 Room Air 07/25/24 16:43 07/25/24 16:17 Room Air 07/25/24 15:53 Room Air Laboratory Results Short CBC 07/25/24 Range/Units Unknown WBC 8.03 (4.8-10.8) K/ul Hgb 15.3 (12.0-16.0) g/dl Hct 42.8 (37.0-47.0) % Plt Count 160 (130-400) K/uL BMP 07/25/24 Unknown Sodium 133 L Potassium 4.7 Chloride 81 L Carbon Dioxide 14 L BUN 24 H Creatinine 1.70 H Glucose 95 Calcium 9.5 Liver Function 07/25/24 Range/Units Unknown Total Bilirubin 1.1 H (0.2-1.0) mg/dl AST 52 H (13-39) U/L ALT 28 (7-52) U/L Alkaline Phosphatase 92 (34-104) U/L Albumin 5.4 H (3.4-5.0) gm/dl Medications Administered Home Medications Medication Instructions Recorded Confirmed Last Taken acetaminophen 500 mg tablet 500 - 1,000 mg PO Q6H PRN Pain 08/14/23 03/15/24 Unknown (Tylenol Extra Strength) albuterol sulfate 90 mcg/actuation 2 puff inhalation QID PRN 08/14/23 03/15/24 Unknown aerosol inhaler (Ventolin HFA) Shortness Of Breath Or Wheezing gabapentin 300 mg capsule 300 mg PO TID 01/06/24 03/15/24 01/04/24 amitriptyline 100 mg tablet 100 mg PO HS PRN Sleep 03/15/24 03/15/24 Unknown docosanol 10 % topical cream 1 applic topical UD PRN Sleep 03/15/24 03/15/24 Unknown hydroxyzine pamoate 100 mg capsule 100 mg PO TID PRN Anxiety 03/15/24 03/15/24 Unknown lorazepam 1 mg tablet 1 mg PO DAILY PRN Anxiety 03/15/24 03/15/24 Unknown melatonin 10 mg tablet 10 mg PO HS Sleep 03/15/24 03/15/24 Unknown multivitamin 1 tab PO DAILY 03/15/24 03/15/24 Unknown propranolol 10 mg tablet 10 mg PO TID PRN Anxiety 03/15/24 03/15/24 Unknown sertraline 50 mg tablet 50 mg PO QAM 03/15/24 03/15/24 Unknown torsemide 10 mg tablet 10 mg PO QAM 03/15/24 03/15/24 Unknown folic acid 1 mg tablet 1 mg PO QAM #30 tabs 03/23/24 Unknown nicotine 7 mg/24 hr daily 1 patch transdermal QAM #0 ea 03/23/24 Unknown transdermal patch thiamine HCl (vitamin B1) 100 mg 100 mg PO QAM #30 tabs 03/23/24 Unknown tablet
[2024-07-25] MEDS: MAGNESIUM SULFATE / D5W 1 GM/100 ML BAG IV STA (17:53)
[2024-07-25] MEDS: PANTOprazole 40 MG/10 ML SYR IV ONE (17:53)
[2024-07-25] MEDS: PROMETHAZINE 12.5 MG/50.5 ML BAG IV STA (18:04)
--- NOTE | 2024-07-25 18:19 | Electrocardiogram Report ---
Test Reason : Blood Pressure : */* mmHG Vent. Rate : 129 BPM Atrial Rate : 129 BPM P-R Int : 170 ms QRS Dur : 70 ms QT Int : 274 ms P-R-T Axes : 73 62 101 degrees QTcB Int : 401 ms Sinus tachycardia Nonspecific T wave abnormality Abnormal ECG When compared with ECG of 15-Mar-2024 22:03, Nonspecific T wave abnormality now evident in Inferior leads Nonspecific T wave abnormality now evident in Lateral leads Confirmed by Kp Redman ([id number] on 07/25/2024 6:19:18 PM Referred By: Confirmed By: Kp Redman
[2024-07-25] MEDS ORDERED: POLYETHYLENE (MIRALAX) 17 GM PACK PO PRN (18:48)
[2024-07-25] MEDS ORDERED: GABAPENTIN 1200MG ALCOHOL WITHDRAWAL LOAD PO STA (18:48)
[2024-07-25] MEDS ORDERED: LORazepam 2 MG/1 ML VIAL IV PRN (18:48)
[2024-07-25] MEDS: GABAPENTIN 600 MG TAB PO ONE (20:42)
[2024-07-25] MEDS ORDERED: GABAPENTIN 600 MG TAB PO SCH (21:00)
[2024-07-25] MEDS: HEPARIN SOD 5,000 UNIT/0.5 ML VIAL SQ SCH (21:09)
[2024-07-25] MEDS: METOCLOPRAMIDE HCL INJ 5 MG/ML 2 ML VIAL IV ONE (21:11)
[2024-07-25 21:47] LABS: Appearance Urine Clear (Clear); Bacteria Urine Automated None Seen (None Seen); Bilirubin Urine Negative (Negative); Blood Urine 2+ (Negative); Color Urine Yellow; Epithelial Cell Urine Auto 0-2 /hpf (0-2); Glucose Urine UA Negative (Negative); Hyaline Casts Urine Present /lpf (None Presnt); Ketones Urine 4+ (Negative); Leukocyte Esterase Urine Negative (Negative); Nitrite Urine Negative (Negative); Protein Urine 1+ (Negative); Specific Gravity Urine 1.018 (1.000-1.030); Urobilinogen Urine Negative (Negative); WBC Urine Automated 0-5 /hpf (0-5); pH Urine 5.5 (4.5-7.5)
[2024-07-25 23:11] LABS: Amphetamines+Metham, Urine Neg (Neg); Barbiturates, Urine Neg (Neg); Benzodiazepine, Urine Neg (Neg); Cocaine, Urine Neg (Neg); Fentanyl, Urine Neg (Neg); MDMA (Ecstacy), Urine Neg (Neg); Marijuana, Urine Neg (Neg); Methadone, Urine Neg (Neg); Opiate, Urine Neg (Neg); Phencyclidine, Urine Neg (Neg)
[2024-07-26] MEDS: TOPIRAMATE 100 MG TAB PO SCH (00:39)
--- OUTSIDE RECORDS SUMMARY | 2024-07-26 01:17 | External Medical Summary | Summary of Care ---
Author Name Unknown Organization [facility] Address [address] [place] [address] Phone [phone] Care Team Providers Care Mobile Lounge Driver Name Role Phone Marilin MICHAELS MD, Gumaro Westfall Primary Care Provider [phone] Reason for Visit * Reason Onset Date Comments Medication Refill 06/20/2024 Encounter Details Date Type Department Care Team (Late st Contact Info) Description 06/20/2024 Refill Family Practice [facility] [address] [place] [address] Gumaro Rodriguez III, MD [address] [place] [address] Allergies Active Allergy Reactions Criticality Noted Date Comments Nickel Rash 06/01/2018 documented as of this encounter (statuses as of 06/20/2024) Medications Medication Sig Dispensed Refills Start Date End Date Status Acetaminophen 500 MG Oral Tablet Take 1 Tablet by mouth every 6 hours as needed. Active Thiamine HCl 100 MG Oral Tablet Take 1 Tablet by mouth in the morning. 05/10/2023 Active valACYclovir HCl 1 GM Oral Tablet (Valtrex) TAKE 1 TABLET BY MOUTH IN THE MORNING AND 1 TAB BEFORE BEDTIME FOR 7 DAYS 14 Tablet 1 01/14/2024 Active LORazepam 1 MG Oral Tablet (Ativan) 1 daily as needed anxiety 5 Tablet 03/07/2024 Active Cyclobenzaprine HCl 5 MG Oral Tablet (Flexeril) Take 1 Tablet by mouth 3 times a day as needed for Muscle spasms. 30 Tablet 1 06/16/2024 Active Topiramate 100 MG Oral Tablet (topAMAX) Take 1 Tablet by mouth in the morning and 1 Tablet at noon and 1 Tablet before bedtime. 100 Tablet 3 06/16/2024 Active Topiramate 25 MG Oral Tablet (topAMAX) Take 1 Tablet by mouth in the morning and 1 Tablet before bedtime. 60 Tablet 6 06/16/2024 Active hydrOXYzine Pamoate 100 MG Oral Capsule Take 1 Tablet by mouth 4 times a day as needed for Anxiety. 120 Capsule 5 06/16/2024 Active Torsemide 10 MG Oral Tablet (Demadex)Indicati ons:Pedal edema Take 1 Tablet by mouth in the morning. 30 Tablet 1 06/16/2024 Active Sertraline HCl 50 MG Oral Tablet (Zoloft) Take 2 Tablets by mouth in the morning. 60 Tablet 3 06/17/2024 Active Amitriptyline HCl 50 MG Oral Tablet (Elavil) Take 2.5 Tablets by mouth at bedtime. 75 Tablet 3 06/17/2024 Active Gabapentin 300 MG Oral Capsule (Neurontin) Take 1 Capsule by mouth in the morning and 1 Capsule at noon and 1 Capsule before bedtime. 3x daily. 270 Capsule 3 06/20/2024 Active Gabapentin 300 MG Oral Capsule (Neurontin) Take 1 Capsule by mouth in the morning and 1 Capsule at noon and 1 Capsule before bedtime. 3x daily. 270 Capsule 3 05/09/2024 06/20/2024 Discontinued (Refill) documented as of this encounter (statuses as of 06/20/2024) Active Problems Problem Noted Date Diagnosed Date Major depressive disorder, recurrent episode, mo derate 11/15/2018 Depression with anxiety 10/19/2016 Malaise and fatigue 08/18/2010 Tobacco use disorder 11/02/2007 Elevated liver enzymes Migraine Insomnia documented as of this encounter (statuses as of 06/20/2024) Resolved Problems Problem Noted Date Diagnosed Date Resolved Date Alcohol abuse, in remission 04/24/2023 04/24/2023 Routine medical exam 08/18/2010 018 documented as of this encounter (statuses as of 06/20/2024) Immunizations Name Administration Dates Next Due Covid-19, [...] money to get more. Never true 07/13/2023 Childcare Answer Date Recorded Do you feel overwhelmed with taking care of a child, family member or friend? No 07/13/2023 Does your family need help f inding childcare? (Household - for ages 0-17 years) Not on file 07/13/2023 Clothing Answer Date Recorded Have you been unable to get clothing when it was really needed? No 07/13/2023 Is your family able to get c lothes or diapers when needed? (Household - for ages 0-17 years) Not on file 07/13/2023 Personal Safety Answer Date Recorded Do you feel unsafe or have concerns for your saf ety? No 07/13/2023 Do you have concerns for you r family's safety? (Household - for ages 0-17 years) Not on file 07/13/2023 Utilities Answer Date Recorded Do you have trouble paying y our heating, water, or electric bill? No 07/13/2023 Is your family able to pay t he heat, water, or electric bill? (Household - for ages 0-17 years) Not on file 07/13/2023 Does your family have access to good internet? (Household - for ages 0-17 years) Not on file 07/13/2023 Employment Status Answer Date Recorded Are you unemployed or without regular income? Ye s 07/13/2023 Does the household have a re gular source of income? (Household - for ages 0-17 years) Not on file 07/13/2023 Social Connections Answer Date Recorded How often do you feel lonely or isolated from th ose around you? Never 07/13/2023 Financial Resource Strain Answer Date R ecorded Do you have any trouble payi ng for your medications, or do you think you might in the future? No 07/13/2023 Does your family have troubl e paying for medicine? (Household - for ages 0-17 years) Not on file 07/13/2023 Transportation Needs Answer Date Record ed READ ONLY Do you have troubl e getting a ride to medical visits or work? Never True 07/13/2023 Does your family have a hard time getting a ride to doctors visits? (Household - for ages 0-17 years) Not on file 07/13/2023 Has lack of transportation k ept you from medical appointments, meetings, work, or from getting things needed for daily living? Check all that apply. (Adult - for ages 18 years and over) Not on file 07/13/2023 Do you (or your family) have trouble finding or paying for a ride (transportation)? (Household - for ages 0-17 years) Not on file 07/13/2023 Housing Stability Answer Date Recorded Do you currently live in a s helter or have no steady place to sleep at night? No 07/13/2023 READ ONLY Do you think you a re at risk of becoming homeless? No 07/13/2023 Does your family worry about paying for your home or becoming homeless? (Household - for ages 0-17 years) Not on file 1 Are you homeless or worried that you might be in the future? (Adult - for ages 18 years and over) Not on file Are you (or your family) cyndi eless or worried that you might be in the future? (Household - for ages 0-17 years) Not on file Food Insecurity Answer Date Recorded Do you need food for this week? No 07/13/2023 Are you able to get enough f ood for your family? (Household - for ages 0-17 years) Not on file 07/13/2023 Does your family need food t his week? (Household - for ages 0-17 years) Not on file 07/13/2023 Do you always have enough fo od for your family? (Household - for ages 0-17 years) Not on file 07/13/2023 Sex and Gender Information Value Date Recorded Sex Assigned at Not on file Gender Identity Not on file Sexual Orientation Not on file Job Start Date Occupation Industry Not on file Not on file Not on file documented as of this encounter Miscellaneous Notes * Telephone Encounter - Gumaro Rodriguez III, MD - 06/20/2024 12:01 PM EDTSigned Prescriptions: Disp Refills Gabapentin 300 MG Oral Capsule (Neurontin) 270 Ca*3 Sig: Take 1 Capsule by mouth in the morning and 1 Capsule at noon and 1 Capsule before bedtime. 3x daily.Authorizing Provider: GUMARO RODRIGUEZ III * Telephone Encounter - Janie Bush LPN - 06/20/2024 10:16 AM EDTPending Prescriptions: Disp Refills Gabapentin 300 MG Oral Capsule (Neurontin) 270 Ca*3 Sig: Take 1 Capsule by mouth in the morning and 1 Capsule at noon and 1 Capsule before bedtime. 3x daily. * Telephone Encounter - Akiko Mcintosh, PATTIE - 06/20/2024 7:12 AM EDT Did you pend patient's preferred pharmacy and medication before forwarding?yes Pharmacy: [id number] [facility] Pending Prescriptions: Disp Refills Gabapentin 300 MG Oral Capsule (Neurontin)270 Ca*3 Sig: Take 1 Capsule by mouth in the morning and 1 Capsule at noon and 1 Capsule before bedtime. 3x daily. Last Visit: 06/16/2024 (in office), 09/03/2021 (telemedicine) Next Visit: Visit date not found If no future appointments scheduled, and last appointment is greater than a year ago, please schedule patient for a follow-up appointment Last date the medication was ordered: 05/09/2024 Is this request for a controlled substance?No [...] CONFIRMATORY TESTING. Cutoff Concentration Patient Phone Numbers [facility] [phone] Labs: Lab Results Component Value Date/Time CREAT 0.7 02/25/2024 03:31 PM CREAT 0.9 06/12/2020 12:23 PM POTASSIUM 4.4 02/25/2024 03:31 PM POTASSIUM 5.3 (H) 06/12/2020 12:23 PM TSH 1.72 04/27/2023 11:24 AM TSH 1.02 06/12/2020 12:23 PM LDL 103 02/25/2024 03:31 PM LDL 99 06/12/2020 12:23 PM ALT 27 02/25/2024 03:31 PM ALT 14 06/12/2020 12:23 PM HGBA1C 4.9 06/12/2020 12:23 PM documented in this encounter Plan of Treatment Health Maintenance Due Date Last Done Comments Hepatitis B Vaccine (1 of 3 - 19+ 3-dose series) 2001 HPV/Co-Test 2012 COVID-19 Vaccine (2 - season) 2024 09/23/2022 Influenza Vaccine (FLU shot) (#1) 2024 Mammogram 06/28/2024 06/28/2023, 06/21/2023 Depression Monitoring 07/28/2024 07/28/2023 Cervical Cancer Screening 08/27/2024 Pap Smear 08/27/2024 08/27/2021, 03/28 (Done elsewhere), 12/21/2014, Additional history exists Lipid Panel 02/24/2029 02/25/2024, 06/12/2020 DTap/Tdap Vaccines (9 - Td or Tdap) 06/04/2031 06/04/2021, 04/22/2015, 04/22/2009, Additional history exists Hepatitis C Screening Completed 12/22/2014 Pneumococcal Vaccine: Pediatrics (0 to 5 Years) and At-Risk Patients (6 to 64 Years) Aged Out 03/01/2019 No longer eligible based on patient's age to complete this topic HPV (Gardasil) Vaccine Aged Out No lo nger eligible based on patient's age to complete this topic MENINGOCOCCAL (MENACTRA/MENVEO) Aged Out No longer eligible based on patient's age to complete this topic documented as of this encounter Medical Devices Not on filedocumented as of this encounter Care Teams Mobile Lounge Driver Relationship Specialty Start Date End Date Gumaro Rodriguez III, MD [address] [place] [address] PCP - General Family Medicine 05/12/23 documented as of this encounter
--- OUTSIDE RECORDS SUMMARY | 2024-07-26 01:17 | External Medical Summary | Summary of Care ---
Author Name Unknown Organization [facility] Address [address] [place] [address] Phone [phone] Care Team Providers Care Affirmative Action Specialist Name Role Phone Marilin MICHAELS MD, Aj Westfall Primary Care Provider [phone] Reason for Visit * Reason Onset Date Comments Med Request 06/16/2024 Encounter Details Date Type Department Care Team (Late st Contact Info) Description 06/16/2024 Telephone Family Practice [facility] [address] [place] [address] Aj Gaston III, MD [address] [place] [address] Med Request Allergies Active Allergy Reactions Criticality Noted Date Comments Nickel Rash 06/01/2018 documented as of this encounter (statuses as of 06/27/2024) Medications Medication Sig Dispensed Refills Start Date [...] at bedtime. 75 Tablet 3 06/17/2024 Active Amitriptyline HCl 50 MG Oral Tablet (Elavil) Take 2.5 Tablets by mouth at bedtime. 06/16/2024 Discontinued (Refill) Sertraline HCl 50 MG Oral Tablet (Zoloft) Take 2 Tablets by mouth in the morning. 06/16/2024 Discontinued (Refill) Gabapentin 300 MG Oral Capsule (Neurontin) Take 1 Capsule by mouth in the morning and 1 Capsule at noon and 1 Capsule before bedtime. 3x daily. 270 Capsule 3 05/09/2024 06/20/2024 Discontinued (Refill) documented as of this encounter (statuses as of 06/27/2024) Active Problems Problem Noted Date Diagnosed Date Major depressive disorder, recurrent episode, mo derate 11/15/2018 Depression with anxiety 10/19/2016 Malaise and fatigue 08/18/2010 Tobacco use disorder 11/02/2007 Elevated liver enzymes Migraine Insomnia documented as of this encounter (statuses as of 06/27/2024) Resolved Problems Problem Noted Date Diagnosed Date Resolved Date Alcohol abuse, in remission 04/24/2023 04/24/2023 Routine medical exam 08/18/2010 018 documented as of this encounter (statuses as of 06/27/2024) Immunizations Name Administration Dates Next Due Covid-19, [...] encounter Miscellaneous Notes * Telephone Encounter - Antoinette Solorio RN - 06/16/2024 3:15 PM EDT Pended if agreeable Dr Gaston? Thank you Pending Prescriptions: Disp Refills Sertraline HCl 50 MG Oral Tablet (Zoloft) 60 Tab*3 Sig: Take 2 Tablets by mouth in the morning. Amitriptyline HCl 50 MG Oral Tablet (Elav*75 Tab*3 Sig: Take 2.5 Tablets by mouth at bedtime. Last Visit: 06/16/2024 (in office), 09/03/2021 (telemedicine) Next Visit: Visit date not found Last date the medication was ordered: Patient Active Problem List Diagnosis Tobacco use disorder Malaise and fatigue Depression with anxiety Elevated liver enzymes Migraine Insomnia Major depressive disorder, recurrent episode, moderate (HCC) Labs: Lab Results Component Value Date/Time CREATININE - [facility] 0.7 02/25/2024 03:31 PM CREATININE - [facility] 0.9 06/12/2020 12:23 PM Lab Results Component Value Date/Time POTASSIUM - [facility] 4.4 02/25/2024 03:31 PM POTASSIUM - [facility] 5.3 (H) 06/12/2020 12:23 PM Lab Results Component Value Date/Time TSH - [facility] 1.72 04/27/2023 11:24 AM TSH - [facility] 1.02 06/12/2020 12:23 PM Lab Results Component Value Date/Time LDL CHOLESTEROL (CALCULATED) - [facility] 103 02/25/2024 03:31 PM LDL CHOLESTEROL (DIRECT MEASURE) - [facility] 99 06/12/2020 12:23 PM Lab Results Component Value Date/Time ALT - [facility] 27 02/25/2024 03:31 PM ALT - [facility] 14 06/12/2020 12:23 PM ALT-OUTSIDE LAB 108 (A) 05/08/2017 12:00 AM Hemoglobin AIC Results: Lab Results Component Value Date/Time HEMOGLOBIN A1C - [facility] 4.9 06/12/2020 12:23 PM * Telephone Encounter - Sussy Mei CPhT - 06/16/2024 12:05 PM EDT Patient calling requesting the following medication below that is listed as "Historical". The following information was provided: Medication Name: sertraline Strength: 50mg Directions: 3 tablets daily Preferred Quantity: 90 days Previous Prescriber: Preferred Pharmacy: [facility] Medication Name :Amitriptyline HCl 50 MG Oral Tablet (Elavil) Strength: 50mg Directions: 2.5 tablets daily Preferred Quantity: 90 days Previous Prescriber: Preferred Pharmacy: [facility] Thank you, Sussy Mei Suspender [facility] ([facility]) 06/16/2024 12:08 PM documented in this encounter Plan of Treatment Health Maintenance Due Date Last Done Comments Hepatitis B Vaccine (1 of 3 - 19+ 3-dose series) 2001 HPV/Co-Test 2012 COVID-19 Vaccine ( season) 2024 09/23/2022 Influenza Vaccine (FLU shot) [...] filedocumented as of this encounter Care Teams Affirmative Action Specialist Relationship Specialty Start Date End Date Aj Gaston III, MD [address] [place], [place] [address] PCP - General Family Medicine 05/12/23 documented as of this encounter
--- OUTSIDE RECORDS SUMMARY | 2024-07-26 01:17 | External Medical Summary | Summary of Care ---
Author Name Unknown Organization [facility] Address [address] [place] [address] Phone [phone] Care Team Providers Care Hearing Therapist Name Role Phone Marilin MICHAELS MD, Aj Westfall Primary Care Provider [phone] Reason for Visit * Reason Onset Date Comments Test Results 03/08/2024 Encounter Details Date Type Department Care Team (Late st Contact Info) Description 03/08/2024 Telephone Family Practice [facility] [address] [place] [address] Therese Perez PA-C [address] [place] [address] Test Results Allergies Active Allergy Reactions Criticality Noted Date Comments Nickel Rash 06/01/2018 documented as of this encounter (statuses as of 06/07/2024) Medications Medication Sig Dispensed Refills Start Date End Date Status Amitriptyline HCl 50 MG Oral Tablet (Elavil) Take 2.5 Tablets by mouth at bedtime. Active Acetaminophen [...] 7 DAYS 14 Tablet 1 01/14/2024 Active Sertraline HCl 50 MG Oral Tablet (Zoloft) Take 1 Tablet by mouth in the morning. Active Torsemide 10 MG Oral Tablet (Demadex)Indication s:Pedal edema Take 1 Tablet by mouth in the morning. 30 Tablet 02/25/2024 Active LORazepam 1 MG Oral Tablet (Ativan) 1 daily as needed anxiety 5 Tablet 03/07/2024 Active documented as of this encounter (statuses as of 06/07/2024) Active Problems Problem Noted Date Diagnosed Date Major depressive disorder, recurrent episode, mo derate 11/15/2018 Depression with anxiety 10/19/2016 Malaise and fatigue 08/18/2010 Tobacco use disorder 11/02/2007 Elevated liver enzymes Migraine Insomnia documented as of this encounter (statuses as of 06/07/2024) Resolved Problems Problem Noted Date Diagnosed Date Resolved Date Alcohol abuse, in remission 04/24/2023 04/24/2023 Routine medical exam 08/18/2010 018 documented as of this encounter (statuses as of 06/07/2024) Immunizations Name Administration Dates Next Due Covid-19, [...] Telephone Encounter - Esther Salinas LPN - 03/08/2024 11:36 AM EDT ----- Message from December A Rine sent at 03/07/2024 6:48 PM EDT ----- Please call and inform no dvt documented in this encounter Plan of Treatment Upcoming Encounters Date Type Department Care Team (Late st Contact Info) Description 06/16/2024 9:20 AM EDT Office Visit Family Practice [facility] [place] [address] [facility] [place] [address] Aj Gaston III, MD [address] [facility] [place] [address] Health Maintenance Due Date Last Done Comments Hepatitis B Vaccine (1 of 3 - 19+ 3-dose series) 2001 HPV/Co-Test 2012 COVID-19 Vaccine (2022- season) 2024 09/23/2022 Influenza Vaccine (FLU shot) [...] filedocumented as of this encounter Care Teams Hearing Therapist Relationship Specialty Start Date End Date Aj Gaston III, MD [address] [facility] [place] [address] PCP - General Family Medicine 05/12/23 documented as of this encounter
--- OUTSIDE RECORDS SUMMARY | 2024-07-26 01:17 | External Medical Summary | Summary of Care ---
Author Name Unknown Organization [facility] Address [address] [place] [address] Phone [phone] Care Team Providers Care Assembly Riveter Name Role Phone Marilin MICHAELS MD, John E Primary Care Provider [phone] Reason for Visit * Reason Onset Date Comments Follow Up 06/06/2024 Annual mammogram Encounter Details Date Type Department Care Team (Late st Contact Info) Description 06/06/2024 Telephone Radiology [address] [place] [address] Aj Gaston III, MD [address] [place] [address] Follow Up (Annual mammogram) Allergies Active Allergy Reactions Criticality Noted Date Comments Nickel Rash 06/01/2018 documented as of this encounter (statuses as of 06/06/2024) Medications Medication Sig Dispensed Refills Start Date [...] as needed anxiety 5 Tablet 03/07/2024 Active Gabapentin 300 MG Oral Capsule (Neurontin) Take 1 Capsule by mouth in the morning and 1 Capsule at noon and 1 Capsule before bedtime. 3x daily. 270 Capsule 3 05/09/2024 Active Cyclobenzaprine HCl 5 MG Oral Tablet (Flexeril) Take 1 Tablet by mouth 3 times a day as needed for Muscle spasms. 30 Tablet 1 05/16/2024 Active Topiramate 25 MG Oral Tablet (topAMAX) Take 1 Tablet by mouth in the morning and 1 Tablet before bedtime. 05/16/2024 Active Topiramate 100 MG Oral Tablet (topAMAX) Take 1 Tablet by mouth in the morning and 1 Tablet at noon and 1 Tablet before bedtime. 05/16/2024 Active documented as of this encounter (statuses as of 06/06/2024) Active Problems Problem Noted Date Diagnosed Date Major depressive disorder, recurrent episode, mo derate 11/15/2018 Depression with anxiety 10/19/2016 Malaise and fatigue 08/18/2010 Tobacco use disorder 11/02/2007 Elevated liver enzymes Migraine Insomnia documented as of this encounter (statuses as of 06/06/2024) Resolved Problems Problem Noted Date Diagnosed Date Resolved Date Alcohol abuse, in remission 04/24/2023 04/24/2023 Routine medical exam 08/18/2010 018 documented as of this encounter (statuses as of 06/06/2024) Immunizations Name Administration Dates Next Due Covid-19, [...] 18 years and over) Not on file 10/17/202 3 Are you (or your family) cyndi eless [...] encounter Miscellaneous Notes * Telephone Encounter - Ghislaine Henderson OSA - 06/06/2024 9:26 AM EDT Per 07/12/23 ultrasound guided breast biopsy addenda, patient is due for her annual screening mammogram May 2024. Scheduling letter mailed to home address 04/21/24. MYG sent today. Addenda- 07/12/23 ADDENDUM: Received from the department of pathology is the histology diagnosis of breast tissue with focal benign cystic wall. The benign histology diagnosis is concordant with imaging findings. Follow-up bilateral mammogram is advised as per routine in May 2024 when patient will be due for her annual follow-up mammogram or sooner if warranted clinically. documented in this encounter Plan of Treatment Upcoming Encounters Date Type Department Care Team (Late st Contact Info) Description 06/16/2024 9:20 AM EDT Office Visit Family Practice [facility] [address] [place] [address] Aj Gaston III, MD [address] [place] [address] Health Maintenance Due Date Last Done Comments Hepatitis B Vaccine (1 of 3 - 19+ 3-dose series) 2001 HPV/Co-Test 2012 COVID-19 Vaccine (24 season) 2024 09/23/2022 Influenza Vaccine (FLU shot) [...] filedocumented as of this encounter Care Teams Assembly Riveter Relationship Specialty Start Date End Date Aj Gaston III, MD [address] [place] [address] PCP - General Family Medicine 05/12/23 documented as of this encounter
--- OUTSIDE RECORDS SUMMARY | 2024-07-26 01:17 | External Medical Summary | Summary of Care ---
Author Name Unknown Organization [facility] Address [address] [place] [address] Phone [phone] Care Team Providers Care Supervisor Prop Making Name Role Phone Marilin MICHAELS MD, John E Primary Care Provider [phone] Reason for Visit * Reason Comments Physical-Exam Pain in left SI join t Encounter Details Date Type Department Care Team (Late st Contact Info) Description 06/16/2024 9:20 AM EDT Office Visit Family Practice [facility] [address] [facility] [place] [address] Aj Gaston III, MD [address] [place] [address] Routine medical exam*; Pedal edema; Depression with anxiety Allergies Active Allergy Reactions Criticality Noted Date Comments Nickel Rash 06/01/2018 documented as of this encounter (statuses as of 06/19/2024) Medications Medication Sig Dispensed Refills Start Date [...] the morning. 30 Tablet 1 06/16/2024 Active Amitriptyline HCl 50 MG Oral Tablet (Elavil) Take 2.5 Tablets by mouth at bedtime. 06/16/2024 Discontinued (Refill) hydrOXYzine HCl 25 MG Oral Tablet Take 1 Tablet by mouth every 6 hours as needed for Anxiety. 40 Tablet 2 06/23/2023 06/16/2024 Discontinued (Medication/ Dose Changed) Sertraline HCl 50 MG Oral Tablet (Zoloft) Take 2 Tablets by mouth in the morning. 06/16/2024 Discontinued (Refill) Torsemide 10 MG Oral Tablet (Demadex)Indicati ons:Pedal edema Take 1 Tablet by mouth in the morning. 30 Tablet 02/25/2024 06/16/2024 Discontinued (Refill) Cyclobenzaprine HCl 5 MG Oral Tablet (Flexeril) Take 1 Tablet by mouth 3 times a day as needed for Muscle spasms. 30 Tablet 1 05/16/2024 06/16/2024 Discontinued (Refill) Topiramate 25 MG Oral Tablet (topAMAX) Take 1 Tablet by mouth in the morning and 1 Tablet before bedtime. 05/16/2024 06/16/2024 Discontinued (Refill) Topiramate 100 MG Oral Tablet (topAMAX) Take 1 Tablet by mouth in the morning and 1 Tablet at noon and 1 Tablet before bedtime. 05/16/2024 06/16/2024 Discontinued (Refill) Torsemide 10 MG Oral Tablet (Demadex)Indicati ons:Pedal edema Take 1 Tablet by mouth in the morning. 30 Tablet 06/16/2024 06/16/2024 Discontinued (Refill) documented as of this encounter (statuses as of 06/19/2024) Active Problems Problem Noted Date Diagnosed Date Major depressive disorder, recurrent episode, mo derate 11/15/2018 Depression with anxiety 10/19/2016 Malaise and fatigue 08/18/2010 Tobacco use disorder 11/02/2007 Elevated liver enzymes Migraine Insomnia documented as of this encounter (statuses as of 06/19/2024) Resolved Problems Problem Noted Date Diagnosed Date Resolved Date Alcohol abuse, in remission 04/24/2023 04/24/2023 Routine medical exam 08/18/2010 018 documented as of this encounter (statuses as of 06/19/2024) Immunizations Name Administration Dates Next Due Covid-19, [...] Sign Reading Time Taken Comments Blood Pressure 98/70 06/16/2024 9:36 AM EDT Pulse 80 06/16/2024 9:36 AM EDT Temperature 36.4 C (97.6 F) 06/16/2024 9:36 AM ED T Respiratory Rate 16 06/16/2024 9:36 AM EDT Oxygen Saturation - - Inhaled Oxygen Concentration - - Weight 58 kg (127 lb 12.8 oz) 06/16/2024 9:36 AM EDT Height 162.6 cm (5' 4.02") 06/16/2024 9:36 AM ED T Body Mass Index 21.92 06/16/2024 9:36 AM EDT documented in this encounter Progress Notes * Marilin MICHAELS, Aj Westfall MD - 06/16/2024 9:55 AM EDT Subjective: Emma Nathan is a 43 year old female. Chief Complaint Patient presents with Physical-Exam Pain in left SI joint HPI: Physical examination depression anxiety history of alcohol abuse seeing [facility] not drinking slipped on a rug several weeks ago left SI joint is bothersome chiropractic treatment has been helpful in the past eyes have not been checked has not seen dentist encourage to do these swallowing difficulties before back injury had been walking about a mi most days doing yoga no exertional chest pain shortness breast claudication or swelling no bleeding urine or bowels PMH: Patient Active Problem List Diagnosis Tobacco use disorder Malaise and fatigue Depression with anxiety Elevated liver enzymes Migraine Insomnia Major depressive disorder, recurrent episode, moderate (HCC) Current Outpatient Medications Medication Sig Dispense Refill Amitriptyline HCl 50 MG Oral Tablet (Elavil) Take 2.5 Tablets by mouth at bedtime. Acetaminophen 500 MG Oral Tablet Take 1 Tablet by mouth every 6 hours as needed. Thiamine HCl 100 MG Oral Tablet Take 1 Tablet by mouth in the morning. valACYclovir HCl 1 GM Oral Tablet (Valtrex) TAKE 1 TABLET BY MOUTH IN THE MORNING AND 1 TAB BEFORE BEDTIME FOR 7 DAYS 14 Tablet 1 Sertraline HCl 50 MG Oral Tablet (Zoloft) Take 2 Tablets by mouth in the morning. Gabapentin 300 MG Oral Capsule (Neurontin) Take 1 Capsule by mouth in the morning and 1 Capsule at noon and 1 Capsule before bedtime. 3x daily. 270 Capsule 3 Cyclobenzaprine HCl 5 MG Oral Tablet (Flexeril) Take 1 Tablet by mouth 3 times a day as needed for Muscle spasms. 30 Tablet 1 Topiramate 100 MG Oral Tablet (topAMAX) Take 1 Tablet by mouth in the morning and 1 Tablet at noon and 1 Tablet before bedtime. 100 Tablet 3 Topiramate 25 MG Oral Tablet (topAMAX) Take 1 Tablet by mouth in the morning and 1 Tablet before bedtime. 60 Tablet 6 hydrOXYzine Pamoate 100 MG Oral Capsule Take 1 Tablet by mouth 4 times a day as needed for Anxiety.120 Capsule 5 Torsemide 10 MG Oral Tablet (Demadex) Take 1 Tablet by mouth in the morning. 30 Tablet 1 LORazepam 1 MG Oral Tablet (Ativan) 1 daily as needed anxiety 5 Tablet 0 No current facility-administered medications for this visit. Review of patient's allergies indicates: Allergen Reactions Nickel Rash Past Medical History: Diagnosis Date Alcohol abuse, in remission Elevated liver enzymes Insomnia Migraine Past Surgical History: Procedure Laterality Date DENTAL SURGERY PROCEDURE NEC 09/27/1999 US GUIDED BREAST BIOPSY LEFT Left 07/12/2023 Objective: The patient is a 43 year old female BP 98/70 | Pulse 80 | Temp 36.4 C (97.6 F) | Resp 16 | Ht 1.626 m (5' 4.02") | Wt 58 kg (127 lb12.8 oz) | BMI 21.92 kg/m | BSA 1.62 m General: alert, healthy, and no distress Eye Exam: PERRLA, extraocular movements intact, conjunctiva are pink and non- injected, sclera clear Ears: External ears normal, Canals clear, TM's Normal Oropharynx: no exudate, no erythema, lips, buccal mucosa, and tongue normal, and mucous membranes are moist Heart: regular rate & rhythm, no murmur, and no gallops Lungs: lungs clear to auscultation Pulses: carotid=2/4 w/o bruits Abdomen: abdomen soft, non-tender, normal bowel sounds, and no masses or organomegaly Extremities: Without cyanosis clubbing or edema Neuro Exam: alert & oriented x 3 with fluent speech, reflexes normal and symmetric ASSESSMENT: (R60.0) Pedal edema Routine medical exam Depression with anxiety Plan Sun protection discussed continue present meds call if problems refill meds Follow up as needed. Aj Gaston III, MD documented in this encounter Nursing Notes * Octavia Hernandez LPN - 06/16/2024 9:36 AM EDT The patient has been properly identified by confirmation of name and date of . Chief Complaint Patient presents with Physical-Exam Pain in left SI joint documented in this encounter Plan of Treatment [...] as of this encounter Visit Diagnoses Diagnosis Routine medical exam- Primary Routine general medical examination at a health care facility Pedal edema Edema Depression with anxiety Dysthymic disorder documented in this encounter Care Teams Supervisor Prop Making Relationship Specialty Start Date End Date Aj Gaston III, MD [address] [place] [address] PCP - General Family Medicine 05/12/23 documented as of this encounter
--- OUTSIDE RECORDS SUMMARY | 2024-07-26 01:17 | External Medical Summary | Summary of Care ---
Author Name Unknown Organization [facility] Address [address] [place] [address] Phone [phone] Care Team Providers Care Territory Manager Name Role Phone Marilin MICHAELS MD, John E Primary Care Provider [phone] Reason for Visit * Reason Onset Date Comments Hospital Follow-Up Hospital Follow-Up 05/19/2024 Encounter Details Date Type Department Care Team (Late st Contact Info) Description 05/16/2024 11:00 AM EDT Office Visit [facility] 200 [facility] [place] [address] Aj Gaston III, MD [address] [place] [address] Hospital discharge follow-up*; Sacroiliac joint pain; 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 05/16/2024 Active Folic Acid 1 MG Oral Tablet Take 1 Tablet by mouth in the morning. As needed. 90 Tablet 04/11/2024 Discontinue d(Medicatio n List Clean Up) documented as of this encounter (statuses as of 05/19/2024) Active Problems Problem Noted Date Diagnosed Date Major depressive disorder, recurrent episode, mo derate 11/15/2018 Depression with anxiety 10/19/2016 Malaise and fatigue 08/18/2010 Tobacco use disorder 11/02/2007 Elevated liver enzymes Migraine Insomnia documented as of this encounter (statuses as of 05/19/2024) Resolved Problems Problem Noted Date Diagnosed Date Resolved Date Alcohol abuse, in remission 04/24/2023 04/24/2023 Routine medical exam 08/18/2010 018 documented as of this encounter (statuses as of 05/19/2024) Immunizations Name Administration Dates Next Due Covid-19, [...] Sign Reading Time Taken Comments Blood Pressure 96/58 05/16/2024 11:27 AM EDT Pulse 72 05/16/2024 11:27 AM EDT Temperature 36.2 C (97.2 F) 05/16/2024 11:27 AM E DT Respiratory Rate 18 05/16/2024 11:27 AM EDT Oxygen Saturation - - Inhaled Oxygen Concentration - - Weight 58.2 kg (128 lb 6.4 oz) 05/16/2024 11:27 AM EDT Height - - Body Mass Index 22.03 05/17/2023 11:43 AM EDT documented in this encounter Progress Notes * Aj Gaston III, MD - 05/19/2024 8:56 AM EDT Subjective: Emma CutlerIsaiasRosana is a 43 year old female. Chief Complaint Patient presents with Hospital Follow-Up Hospital Follow-Up HPI: inpatient rehab alcohol use disorder hospitalized March 23 through May 06 discharge summary reviewed states she has not had any alcohol since discharge denies chest pain shortness of breath no swelling of her ankles can proceed with outpatient therapy has sacroiliac pain had a TENs unit has misplaced or did not receive her cords ice on discharge DME needed Flexeril can be of some benefit with this discomfort as well would like a refill PMH: Patient Active Problem List Diagnosis Tobacco [...] 1 Tablet by mouth in the morning. Torsemide 10 MG Oral Tablet (Demadex) Take 1 Tablet by mouth in the morning. 30 Tablet 0 LORazepam 1 MG Oral Tablet (Ativan) 1 daily as needed anxiety 5 Tablet 0 Gabapentin 300 MG Oral Capsule (Neurontin) Take 1 Capsule by mouth in the morning and 1 Capsule at noon and 1 Capsule before bedtime. 3x daily. 270 Capsule 3 Cyclobenzaprine HCl 5 MG Oral Tablet (Flexeril) Take 1 Tablet by mouth 3 times a day as needed for Muscle spasms. 30 Tablet 1 Topiramate 25 MG Oral Tablet (topAMAX) Take 1 Tablet by mouth in the morning and 1 Tablet before bedtime. Topiramate 100 MG Oral Tablet (topAMAX) Take 1 Tablet by mouth in the morning and 1 Tablet at noon and 1 Tablet before bedtime. No current facility-administered medications for this visit. Review of patient's allergies indicates: Allergen Reactions Nickel Rash Past Medical History: Diagnosis Date Alcohol abuse, in remission Elevated liver enzymes Insomnia Migraine Past Surgical History: Procedure Laterality Date DENTAL SURGERY PROCEDURE NEC 09/27/1999 US GUIDED BREAST BIOPSY LEFT Left 07/12/2023 Objective: The patient is a 43 year old female BP 96/58 | Pulse 72 | Temp 36.2 C (97.2 F) (Tympanic) | Resp 18 | Wt 58.2 kg (128 lb 6.4 oz) | BMI 22.03 kg/m | BSA 1.62 m General: alert, [...] no edema, no clubbing, no cyanosis ASSESSMENT: (Z09) Hospital discharge follow-up (primary encounter diagnosis) (M53.3) Sacroiliac joint pain (F10.19) 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 Aj Gaston III, MD documented in this encounter Nursing Notes * Janell Ag LPN - 05/16/2024 11:25 AM EDT Emma Nguyễn Venita presents for hospital follow up. Medications & HM reviewed. She was started on flexeril and lidocaine patches while in the hospital and also a TENS unit. She needs an order for replacement cords for the unit because she left one at rehab. Patient was recently discharged from rehab for alcohol abuse. documented in this encounter Plan of Treatment Upcoming Encounters Date Type Department Care Team (Late st Contact Info) Description 06/07/2024 4:40 PM EDT Office Visit Family [facility] [address] [place] [address] Aj Gaston III, MD [address] [place] [address] Health Maintenance Due Date Last Done Comments Hepatitis B Vaccine (1 of 3 - 19+ 3-dose series) 2001 HPV/Co-Test 2012 COVID-19 Vaccine (2 - 2022-24 season) 2023 09/23/2022 Influenza Vaccine (FLU shot) (#1) 2024 [...] Hospital discharge follow-up- Primary Other follow-up examination Sacroiliac joint pain Disorders of sacrum 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
--- OUTSIDE RECORDS SUMMARY | 2024-07-26 01:18 | External Medical Summary | Summary of Care ---
Author Name Unknown Organization [facility] Address [address] [place] [address] Phone [phone] Care Team Providers Care Antitank Assault Gunner Name Role Phone Marilin MICHAELS MD, Aj Westfall Primary Care Provider [phone] Reason for Visit * Reason Onset Date Comments Medication Refill 04/10/2024 Encounter Details Date Type Department Care Team (Late st Contact Info) Description 04/10/2024 Refill Family Practice [facility] 200 [place] [address] Aj Gaston III, MD [address] [place] [address] Allergies Active Allergy Reactions Criticality Noted Date Comments Nickel Rash 06/01/2018 documented as of this encounter (statuses as of 04/11/2024) Medications Medication Sig Dispensed Refills Start Date [...] as needed anxiety 5 Tablet 03/07/2024 Active Folic Acid 1 MG Oral Tablet Take 1 Tablet by mouth in the morning. As needed. 90 Tablet 04/11/2024 Active Folic Acid 1 MG Oral Tablet Take 1 Tablet by mouth in the morning. As needed. 05/10/2023 4 Discontinue d(Refill) documented as of this encounter (statuses as of 04/11/2024) Active Problems Problem Noted Date Diagnosed Date Major depressive disorder, recurrent episode, mo derate 11/15/2018 Depression with anxiety 10/19/2016 Malaise and fatigue 08/18/2010 Tobacco use disorder 11/02/2007 Elevated liver enzymes Migraine Insomnia documented as of this encounter (statuses as of 04/11/2024) Resolved Problems Problem Noted Date Diagnosed Date Resolved Date Alcohol abuse, in remission 04/24/2023 04/24/2023 Routine medical exam 08/18/2010 018 documented as of this encounter (statuses as of 04/11/2024) Immunizations Name Administration Dates Next Due Covid-19, [...] Telephone Encounter - Therese Perez PA-C - 04/11/2024 8:20 AM EDTSigned Prescriptions: Disp Refills Folic Acid 1 MG Oral Tablet 90 Tab*0 Sig: Take 1 Tablet by mouth in the morning. As needed. Authorizing Provider: THERESE PEREZ * Telephone Encounter - Yuliet June RN - 04/11/2024 7:04 AM EDTPending Prescriptions: Disp Refills Folic Acid 1 MG Oral Tablet 90 Tab*0 Sig: Take 1 Tablet by mouth in the morning. As needed. * Telephone Encounter - Selina Gonzalez OSA - 04/10/2024 4:19 PM EDT Did you pend patient's preferred pharmacy and medication before forwarding?yes Pharmacy: [id number] [facility] Pending Prescriptions: Disp Refills Folic Acid 1 MG Oral Tablet 90 Tab*0 Sig: Take 1 Tablet by mouth in the morning. As needed. Last Visit: 03/07/2024 (in office), 09/03/2021 (telemedicine) Next Visit: 06/07/2024 If no future appointments scheduled, and last appointment is greater than a year ago, please schedule patient for a follow-up appointment Last date the medication was ordered: [id number] Is this request for a controlled substance?No [...] [facility] [address] [place] [address] Aj Gaston III, MD [address] [place] [address] Health Maintenance Due Date Last Done Comments [...] filedocumented as of this encounter Care Teams Antitank Assault Gunner Relationship Specialty Start Date End Date Aj Gaston III, MD [address] [place] [address] PCP - General Family Medicine 05/12/23 documented as of this encounter
--- OUTSIDE RECORDS SUMMARY | 2024-07-26 01:18 | External Medical Summary | Summary of Care ---
Author Name Unknown Organization [facility] Address [address] [place] [address] Phone [phone] Care Team Providers Care Tax Lawyer Name Role Phone Marilin MICHAELS MD, Aj Westfall Primary Care Provider [phone] Encounter Details Date Type Department Care Team (Late st Contact Info) Description 05/08/2024 Orders Only Outcomes Research Department [address] [place] [address] Shannen Turner CHRA [place] [employer] [facility] Other*[id number] Allergies Active Allergy Reactions Criticality Noted Date Comments Nickel Rash 06/01/2018 documented as of this encounter (statuses as of 05/08/2024) Medications Medication Sig Dispensed Refills Start Date [...] morning. As needed. 90 Tablet 04/11/2024 Active documented as of this encounter (statuses as of 05/08/2024) Active Problems Problem Noted Date Diagnosed Date Major depressive disorder, recurrent episode, mo derate 11/15/2018 Depression with anxiety 10/19/2016 Malaise and fatigue 08/18/2010 Tobacco use disorder 11/02/2007 Elevated liver enzymes Migraine Insomnia documented as of this encounter (statuses as of 05/08/2024) Resolved Problems Problem Noted Date Diagnosed Date Resolved Date Alcohol abuse, in remission 04/24/2023 04/24/2023 Routine medical exam 08/18/2010 018 documented as of this encounter (statuses as of 05/08/2024) Immunizations Name Administration Dates Next Due Covid-19, [...] Description 05/16/2024 11:00 AM EDT Office Visit [facility] [address] [address] Aj Gaston III, MD [address] [facility] [place] [address] 06/07/2024 4:40 PM EDT Office Visit [facility] [address] [address] Aj Gaston III, MD [address] [facility] [place] [address] Scheduled Orders Name Type Priority Associated Diagnoses Orde r Schedule MYCODE INITIAL ADULT Lab Routine [facility] Other*[id number] Expected: 05/08/2024 (Approximate), Expires: 05/28/2025 Health Maintenance Due Date Last Done Comments [...] this encounter Visit Diagnoses Diagnosis [facility] Other*[id number] documented in this encounter Care Teams Tax Lawyer Relationship Specialty Start Date End Date Aj Gaston III, MD [address] [facility] [place] [address] PCP - General Family Medicine 05/12/23 documented as of this encounter
--- OUTSIDE RECORDS SUMMARY | 2024-07-26 01:18 | External Medical Summary | Summary of Care ---
Author Name Unknown Organization [facility] Address [address] [place] [address] Phone [phone] Care Team Providers Care Public Health Internship Name Role Phone Marilin MICHAELS MD, Gumaro Westfall Primary Care Provider [phone] Reason for Visit * Reason Onset Date Comments Medication Refill 05/08/2024 Encounter Details Date Type Department Care Team (Late st Contact Info) Description 05/08/2024 Refill Family Practice [facility] 200 [facility] [place] [address] Gumaro Rodriguez III, MD [address] [place] [address] Allergies Active Allergy Reactions Criticality Noted Date Comments Nickel Rash 06/01/2018 documented as of this encounter (statuses as of 05/09/2024) Medications Medication Sig Dispensed Refills Start Date [...] morning. As needed. 90 Tablet 04/11/2024 Active Gabapentin 300 MG Oral Capsule (Neurontin) Take 1 Capsule by mouth in the morning and 1 Capsule at noon and 1 Capsule before bedtime. 3x daily. 270 Capsule 3 05/09/2024 Active Gabapentin 300 MG Oral Capsule (Neurontin) 3x daily 90 Capsule 5 01/14/2024 Discontinue d(Refill) documented as of this encounter (statuses as of 05/09/2024) Active Problems Problem Noted Date Diagnosed Date Major depressive disorder, recurrent episode, mo derate 11/15/2018 Depression with anxiety 10/19/2016 Malaise and fatigue 08/18/2010 Tobacco use disorder 11/02/2007 Elevated liver enzymes Migraine Insomnia documented as of this encounter (statuses as of 05/09/2024) Resolved Problems Problem Noted Date Diagnosed Date Resolved Date Alcohol abuse, in remission 04/24/2023 04/24/2023 Routine medical exam 08/18/2010 018 documented as of this encounter (statuses as of 05/09/2024) Immunizations Name Administration Dates Next Due Covid-19, [...] Encounter - Gumaro Rodriguez III, MD - 05/09/2024 8:49 AM EDTSigned Prescriptions: Disp Refills Gabapentin 300 MG Oral Capsule (Neurontin) 270 Ca*3 Sig: Take 1 Capsule by mouth in the morning and 1 Capsule at noon and 1 Capsule before bedtime. 3x daily.Authorizing Provider: GUMARO RODRIGUEZ III * Telephone Encounter - Janie Bush LPN - 05/08/2024 3:27 PM EDT Pending Prescriptions: Disp Refills Gabapentin 300 MG Oral Capsule (Neurontin)270 Ca*3 Sig: Take 1 Capsule by mouth in the morning and 1 Capsule at noon and 1 Capsule before bedtime. 3x daily. Last Visit: 03/07/2024 (in office), 09/03/2021 (telemedicine) Next Visit: 05/16/2024 Last date the medication was ordered: 01/14/2024 Patient Active Problem List Diagnosis Tobacco use [...] A1C - [facility] 4.9 06/12/2020 12:23 PM documented in this encounter Plan of Treatment Upcoming Encounters Date Type Department Care Team (Late st Contact Info) Description 05/16/2024 11:00 AM EDT Office Visit [facility] [address] [place] [address] Gumaro Rodriguez III, MD [facility] [place] [address] [address] 06/07/2024 4:40 PM EDT Office Visit [facility] [place] [address] [place] [address] Gumaro Rodriguez III, MD [address] [place] [address] Health Maintenance Due Date Last Done Comments [...] filedocumented as of this encounter Care Teams Public Health Internship Relationship Specialty Start Date End Date Gumaro Rodriguez III, MD [address] [place] [address] PCP - General Family Medicine 05/12/23 documented as of this encounter
--- OUTSIDE RECORDS SUMMARY | 2024-07-26 01:18 | External Medical Summary | Summary of Care ---
Author Name Unknown Organization [facility] Address [address] [place] [address] Phone [phone] Care Team Providers Care [employer] Name Role Phone Marilin MICHAELS MD, Aj Westfall Primary Care Provider [phone] Reason for Visit * Reason Onset Date Comments Advice 01/06/2024 Encounter Details Date Type Department Care Team (Late st Contact Info) Description 01/06/2024 Telephone Family Practice [facility] [address] [place] [address] Aj Gaston III, MD [address] [place] [address] Advice Allergies Active Allergy Reactions Criticality Noted Date Comments Nickel Rash 06/01/2018 documented as of this encounter (statuses as of 04/06/2024) Medications Medication Sig Dispensed Refills Start Date [...] mgOral Q6H PRN, Anxiety, Reported on 02/25/2024 documented as of this encounter (statuses as of 04/06/2024) Active Problems Problem Noted Date Diagnosed Date Major depressive disorder, recurrent episode, malick derate 11/15/2018 Depression with anxiety 10/19/2016 Malaise and fatigue 08/18/2010 Tobacco use disorder 11/02/2007 Elevated liver enzymes Migraine Insomnia documented as of this encounter (statuses as of 04/06/2024) Resolved Problems Problem Noted Date Diagnosed Date Resolved Date Alcohol abuse, in remission 04/24/2023 04/24/2023 Routine medical exam 08/18/2010 018 documented as of this encounter (statuses as of 04/06/2024) Immunizations Name Administration Dates Next Due Covid-19, [...] the money to buy more. Never true 10/17/20 23 Within the past 12 months, t [...] encounter Miscellaneous Notes * Telephone Encounter - Chloe Eli OSA - 01/06/2024 1:27 PM EDT Mom calling to inform Emma is going to the ER right now. Emma called her this morning and mom gotworried because of her condition and took her to the ER. She is hoping to get her into a rehab or get some help, Emma is not functioning right and she is very worried. Call Jessenia to advice if needed. documented in this encounter Plan of Treatment Upcoming Encounters Date Type Department Care Team (Late st Contact Info) Description 06/07/2024 4:40 PM EDT Office Visit Family Practice [facility] [place] [address] [facility] [place] [address] Aj Gaston III, MD [address] [facility] [place] [address] Health Maintenance Due Date Last Done Comments Hepatitis B Vaccine (1 of 3 - 19+ 3-dose series) 2001 HPV/Co-Test 2012 COVID-19 Vaccine ( - 2022-24 season) 2023 09/23/2022 Influenza Vaccine [...] filedocumented as of this encounter Care Teams Golf [employer] Relationship Specialty Start Date End Date Aj Gaston III, MD [address] [facility], [place] [id number] PCP - General Family Medicine 05/12/23 documented as of this encounter
[2024-07-26] MEDS: hydrOXYzine HCl 25 MG TAB PO PRN (01:36)
[2024-07-26] MEDS: GABAPENTIN 600 MG TAB PO SCH ×2 (05:30→20:23)
[2024-07-26 07:48] LABS: Hematocrit (blood only) 34.1 % (37.0-47.0); Hemoglobin 11.9 g/dl (12.0-16.0); Mean Corpuscular Hemoglobin 32.6 pg (25.0-34.0); Mean Corpuscular Hgb Conc 34.9 g/dL (32.0-36.0); Mean Corpuscular Volume 93.4 fL (80.0-100.0); Platelet Count 113 K/uL (130-400); RDW Coefficient of Variation 15.9 % (11.5-14.5); RDW Standard Deviation 54.4 fL (36.4-46.3); Red Blood Count 3.65 M/uL (4.20-5.40); White Blood Count 6.72 K/ul (4.8-10.8)
[2024-07-26 07:54] LABS: Potassium 4.2 mmol/L (3.5-5.1)
[2024-07-26 07:55] LABS: BUN Creatinine Ratio 12.4 (10-20); Calcium 8.5 mg/dl (8.6-10.3); Creatinine Clr Calc Pharmacy 65.1 ml/min
[2024-07-26 07:57] LABS: Albumin Globulin Ratio 1.5 (0.9-2); Albumin Level 3.9 gm/dl (3.4-5.0); Bilirubin,Total 0.9 mg/dl (0.2-1.0); Globulin 2.6 gm/dl (2.5-4.0); Phosphorus 1.5 mg/dl (2.5-4.9); Total Protein 6.5 gm/dl (6.0-8.3)
[2024-07-26] MEDS ORDERED: SODIUM PHOSPHATE 3 MMOL/1 ML INFUSION IV STA (08:06)
[2024-07-26] MEDS: FOLIC ACID 1 MG TAB PO SCH (09:08)
[2024-07-26] MEDS: MULTIVITAMIN TAB PO SCH (09:09)
[2024-07-26] MEDS: AMITRIPTYLINE HCL 25 MG TAB PO PRN (09:09)
[2024-07-26] MEDS: THIAMINE HCL 100 MG TAB PO SCH (09:09)
[2024-07-26] MEDS: SERTRALINE HCL 100 MG TABLET PO SCH (09:10)
[2024-07-26] MEDS: NICOTINE 14 MG/24 HR PATCH TD SCH (09:25)
--- NOTE | 2024-07-26 10:09 | Hospitalist Progress Note ---
Date of Service July 26, 2024 Assessment & Plan (1) Alcoholic ketoacidosis: (2) Alcohol withdrawal: Plan Ms. Nathan is a 43 year old woman with medical history significant for ADHD, anxiety/mood disorder, migraines, chronic pancytopenia (baseline hemoglobin of 11), ongoing tobacco/alcohol abuse presented to [facility] ED due to alcohol withdrawal. Patient with provided mixed recollection of events: noting last drink to be anywhere from 48 hours to 2 weeks prior to arrival. Patient with improvement s/p IVF. Plan to monitor with AWSS and assess resolution of symptoms Alcohol withdrawal: last drink 07/24 AWSS per protocol Gabapentin taper started, then to resume home gabapentin Sinus tachycardia likely 2/2 dehydration/vomiting/withdrawal possibly improved with ivf monitor on tele Elevated Lipase Transaminitis AST elevation, likely secondary to alcohol use. Ct ABD from 07/26 noting acute pancreatitis Pt with improving symptoms Migraines Topamax 125mg qam, 100mg noon, 125mg qpm Continue regimen Anxiety/mood disorder, at baseline Continue Hydroxyzine PRN anxiety Continue 125mg amitriptyline qhs prn Continue 100mg qam sertraline Anion gap metabolic acidosis, hypochloremic likely secondary vomiting/ketosis Trend labs in am encourage po intake improving ZUHAIR Pedal edema prescribed torsemide daily for intermittent pedal edema baseline 0.5-0.8, on admission 1.7 s/p IVF, suspect 2/2 prerenal: dehydration UA ordered hold home torsemide Improving, continue to monitor Hypomagnesemia likely iso chronic alcohol misuse replace IV then plan for po--possible slow mag or mag oxide replacement Chronic anemia Hgb 15 on admission, anticipate drop continue thiamine and folate Prior tobacco abuse reports 2-3 months without cigarette DVT heparin sq Dispo Admission and Anticipated Discharge Date Admission Date: July 25, 2024 Subjective Patient was seen laying in bed and resting comfortably. States that she feels like she can eat and asking for her diet to be advanced from the clear liquid diet she is currently on. However she notes she is having some abdominal tenderness that radiates up. States she feels a bit anxious Review of Systems Review of Systems: All systems reviewed & are unremarkable except as noted in Subjective Physical Exam Physical Exam: General: Alert, oriented. No acute distress Skin: No noted rashes or bruises Psych: Appropriate mood and affect Neuro: No gross deficits while laying in bed HEENT: NC/AT CV: RRR Resp: Breath sounds clear bilaterally, no increased effort of breathing. Abdomen: Soft, tender Extremities: No edema in lower extremities bilaterally. Results & Data Results & Data Vital Signs (Past 12 Hours) Vital Signs Temp Pulse Resp BP Pulse Ox O2 Del Method 07/26/24 07:51 36.5 C 97 H 16 121/81 97 Room Air 07/26/24 03:06 36.9 C 97 H 18 100/67 99 Room Air 07/25/24 23:08 36.9 C 98 H 18 109/70 98 Room Air
[2024-07-26] MEDS: OPTIRAY 320 100ml IV ONE (11:08)
[2024-07-26] MEDS: POT PHOSPHATE MONOBASIC W/ SOD TAB PO SCH (11:17)
--- NOTE | 2024-07-26 11:54 | Electrocardiogram Report ---
Test Reason : Blood Pressure : */* mmHG Vent. Rate : 92 BPM Atrial Rate : 92 BPM P-R Int : 150 ms QRS Dur : 74 ms QT Int : 402 ms P-R-T Axes : 61 64 67 degrees QTcB Int : 497 ms Poor data quality, interpretation may be adversely affected Normal sinus rhythm Prolonged QT Abnormal ECG When compared with ECG of 25-Jul-2024 16:04, Nonspecific T wave abnormality no longer evident in Inferior leads Nonspecific T wave abnormality no longer evident in Lateral leads Confirmed by Kp Redman ([id number]) on 07/26/2024 11:54:10 AM Referred By: REFERRED SELF Confirmed By: Kp Redman
[2024-07-26] MEDS ORDERED: GABAPENTIN 600 MG TAB PO SCH ×2 (14:00)
[2024-07-26] MEDS: TOPIRAMATE 25 MG TAB PO SCH (15:39)
--- NOTE | 2024-07-26 17:23 | CT Scan Report ---
CT SCAN OF THE ABDOMEN AND PELVIS WITH IV CONTRAST CLINICAL HISTORY: Generalized abdominal pain. Elevated lipase. COMPARISON STUDY: Abdominal CT dated 08/18/2023. TECHNIQUE: Following the IV administration of 94 cc of Optiray 320, CT scan of the abdomen and pelvi s is performed from the lung bases to the proximal femora. Images are reviewed in the axial, sagittal , and coronal planes. IV contrast was administered without complication. A dose lowering technique wa s utilized adhering to the principles of ALARA. CT DOSE: 429.54 mGy.cm FINDINGS: Lung bases: The heart is normal in size and without pericardial effusion. There are trace pleural eff usions with dependent atelectasis. A small hiatal hernia is noted. Liver: The contrast-enhanced liver is normal in size, contour, and attenuation. Fatty infiltration is seen adjacent to the falciform ligament. There is no intrahepatic biliary ductal dilatation. The hep atic veins and portal veins are patent. Gallbladder: Unremarkable. Spleen: Normal in size and attenuation. Pancreas: There is infiltration fluid seen around the body and tail of the pancreas, typical for acut e pancreatitis. The gland enhances throughout. The duct is normal in caliber. The splenic vein is pat ent. No organized peripancreatic fluid collection is identified. Adrenal glands: Unremarkable. Kidneys: The contrast enhanced kidneys are normal in size and without hydronephrosis. The kidneys enh ance symmetrically. Abdominal vasculature: The abdominal aorta is normal in course and caliber. Bowel: The small bowel and colon are normal in course and caliber. The appendix is well-visualized a nd normal. Peritoneum: There is trace perisplenic ascites, as well as a small amount of pelvic ascites. No intra luminal peritoneal free air is seen. There is a fat-containing umbilical hernia. Lymphadenopathy: None. Pelvic viscera: The bladder wall appears thickened. The uterus and adnexa are normal as visualized. N umerous phleboliths are seen in the pelvis. Skeletal structures: No lytic or blastic lesions are seen. IMPRESSION: 1. Findings are consistent with acute pancreatitis. Correlate with clinical and laboratory findings. 2. The gland enhances throughout and no organized peripancreatic fluid collection is seen. 3. Small volume ascites. 4. Trace pleural effusions. 5. The bladder wall appears thickened. Correlate with clinical findings and urinalysis. 6. Additional findings as above. ACT 112: Negative or not required by law. Electronically signed by: Konrad Acosta M.D. 07/26/2024 5:22 PM
[2024-07-27 06:34] LABS: Albumin Globulin Ratio 1.5 (0.9-2); Albumin Level 3.7 gm/dl (3.4-5.0); BUN Creatinine Ratio 9.6 (10-20); Bilirubin,Total 1.2 mg/dl (0.2-1.0); Calcium 8.8 mg/dl (8.6-10.3); Creatinine Clr Calc Pharmacy 86.8 ml/min; Globulin 2.5 gm/dl (2.5-4.0); Phosphorus 2.2 mg/dl (2.5-4.9); Potassium 3.1 mmol/L (3.5-5.1); Total Protein 6.2 gm/dl (6.0-8.3)
[2024-07-27 06:35] LABS: Hematocrit (blood only) 33.6 % (37.0-47.0); Hemoglobin 11.8 g/dl (12.0-16.0); Mean Corpuscular Hemoglobin 33.4 pg (25.0-34.0); Mean Corpuscular Hgb Conc 35.1 g/dL (32.0-36.0); Mean Corpuscular Volume 95.2 fL (80.0-100.0); Mean Platelet Volume 10.6 fL (9.4-12.4); Platelet Count 85 K/uL (130-400); RDW Coefficient of Variation 15.9 % (11.5-14.5); RDW Standard Deviation 55.2 fL (36.4-46.3); Red Blood Count 3.53 M/uL (4.20-5.40); White Blood Count 6.54 K/ul (4.8-10.8)
[2024-07-27] MEDS: POTASSIUM CHLORIDE CRTAB 20 MEQ TABCR PO STA (08:29)
[2024-07-27] MEDS: SODIUM CHLORIDE 0.9% 1,000 ML IV SCH (08:33)
[2024-07-27] MEDS: ACETAMINOPHEN 325 MG TAB PO PRN (13:29)
--- NOTE | 2024-07-27 14:29 | Hospitalist Progress Note ---
Date of Service July 27, 2024 Assessment & Plan (1) Alcoholic ketoacidosis: (2) Alcohol withdrawal: Plan Ms. Nathan is a 43 year old woman with medical history significant for ADHD, anxiety/mood disorder, migraines, chronic pancytopenia (baseline hemoglobin of 11), ongoing tobacco/alcohol abuse presented to [facility] ED due to alcohol withdrawal. Patient with provided mixed recollection of events: noting last drink to be anywhere from 48 hours to 2 weeks prior to arrival. Patient with improvement s/p IVF. Plan to monitor with AWSS and assess resolution of symptoms Alcohol withdrawal: last drink 07/24 AWSS per protocol Gabapentin taper started, then to resume home gabapentin There was concern from family that pt had been using home gabapentin excessively Continue to monitor Sinus tachycardia likely 2/2 dehydration/vomiting/withdrawal possibly improved with ivf monitor on tele Elevated Lipase Transaminitis Lipase elevated at 2411 on admission AST elevation, likely secondary to alcohol use. Ct ABD from 07/26 noting acute pancreatitis Pt with worsening symptoms on 07/27 -diet deescalated back to full liquids -GI consulted, appreciate recs Continue to monitor symptoms Migraines Topamax 125mg qam, 100mg noon, 125mg qpm Continue regimen Anxiety/mood disorder, at baseline Continue Hydroxyzine PRN anxiety Continue 125mg amitriptyline qhs prn Continue 100mg qam sertraline Anion gap metabolic acidosis, hypochloremic likely secondary vomiting/ketosis Trend labs in am encourage po intake improving ZUHAIR Pedal edema prescribed torsemide daily for intermittent pedal edema baseline 0.5-0.8, on admission 1.7 s/p IVF, suspect 2/2 prerenal: dehydration UA ordered hold home torsemide Improving, continue to monitor Hypomagnesemia likely iso chronic alcohol misuse replace IV then plan for po--possible slow mag or mag oxide replacement Chronic anemia Hgb 15 on admission, anticipate drop continue thiamine and folate Prior tobacco abuse reports 2-3 months without cigarette DVT heparin sq Dispo Admission and Anticipated Discharge Date Admission Date: July 25, 2024 Subjective Patient was seen laying in bed. States she is very anxious about her new diagnosis of acute pancreatitis. Lots of questions about cause. Discussion with patient about alcohol as the likely cause in the setting and her need to discontinue excessive use. States that she is unsure exactly how long after eating she has pain. However does note that she had pain in the abdomen after her soft diet yesterday. Later notified by nursing that patient was endorsing pain about an hour after eating lunch. Review of Systems Review of Systems: All systems reviewed & are unremarkable except as noted in Subjective Physical Exam Physical Exam: General: Alert, oriented. No acute distress Skin: No noted rashes or bruises Psych: Appropriate mood and affect Neuro: No gross deficits while laying in bed HEENT: NC/AT CV: RRR Resp: Breath sounds clear bilaterally, no increased effort of breathing. Abdomen: Soft, tender in LUQ and lower bilateral quadrants Extremities: No edema in lower extremities bilaterally. Results & Data Results & Data Vital Signs (Past 12 Hours) Vital Signs Temp Pulse Pulse Resp BP Pulse Ox O2 Del Method 07/27/24 11:08 36.8 C 90 16 100/68 98 Room Air 07/27/24 08:23 36.6 C 91 H 16 100/69 99 Room Air 07/27/24 05:47 78 07/27/24 02:45 36.7 C 98 H 18 95/62 L 97 Room Air Diagnostic Findings Chest X-Ray 07/25/24 16:12 XR chest 1V portable HISTORY: 43 years-old Female weakness COMPARISON: 05/08/2017 TECHNIQUE: AP view of the chest FINDINGS: Cardiomediastinal and hilar silhouettes are within normal limits. No pneumothorax, pleural effusion or airspace consolidation. Bones appear grossly intact. Sigmoidal thoracolumbar scoliosis. IMPRESSION: No acute process. ACT 112: Negative or not required by law. The above report was generated using voice recognition software. It may contain grammatical, syntax or spelling errors. Electronically signed by: Rob Payne M.D. 07/25/2024 4:57 PM Abdomen/Pelvis CT 07/26/24 10:14 CT SCAN OF THE ABDOMEN AND PELVIS WITH IV CONTRAST CLINICAL HISTORY: Generalized abdominal pain. Elevated lipase. COMPARISON STUDY: Abdominal CT dated 08/18/2023. TECHNIQUE: Following the IV administration of 94 cc of Optiray 320, CT scan of the abdomen and pelvis is performed from the lung bases to the proximal femora. Images are reviewed in the axial, sagittal, and coronal planes. IV contrast was administered without complication. A dose lowering technique was utilized adhering to the principles of ALARA. CT DOSE: 429.54 mGy.cm FINDINGS: Lung bases: The heart is normal in size and without pericardial effusion. There are trace pleural effusions with dependent atelectasis. A small hiatal hernia is noted. Liver: The contrast-enhanced liver is normal in size, contour, and attenuation. Fatty infiltration is seen adjacent to the falciform ligament. There is no intrahepatic biliary ductal dilatation. The hepatic veins and portal veins are patent. Gallbladder: Unremarkable. Spleen: Normal in size and attenuation. Pancreas: There is infiltration fluid seen around the body and tail of the pancreas, typical for acute pancreatitis. The gland enhances throughout. The duct is normal in caliber. The splenic vein is patent. No organized peripancreatic fluid collection is identified. Adrenal glands: Unremarkable. Kidneys: The contrast enhanced kidneys are normal in size and without hydronephrosis. The kidneys enhance symmetrically. Abdominal vasculature: The abdominal aorta is normal in course and caliber. Bowel: The small bowel and colon are normal in course and caliber. The appendix is well-visualized and normal. Peritoneum: There is trace perisplenic ascites, as well as a small amount of pelvic ascites. No intraluminal peritoneal free air is seen. There is a fat- containing umbilical hernia. Lymphadenopathy: None. Pelvic viscera: The bladder wall appears thickened. The uterus and adnexa are normal as visualized. Numerous phleboliths are seen in the pelvis. Skeletal structures: No lytic or blastic lesions are seen. IMPRESSION: 1. Findings are consistent with acute pancreatitis. Correlate with clinical and laboratory findings. 2. The gland enhances throughout and no organized peripancreatic fluid collection is seen. 3. Small volume ascites. 4. Trace pleural effusions. 5. The bladder wall appears thickened. Correlate with clinical findings and urinalysis. 6. Additional findings as above. ACT 112: Negative or not required by law. Electronically signed by: Konrad Acosta M.D. 07/26/2024 5:22 PM
--- NOTE | 2024-07-27 15:37 | Electrocardiogram Report ---
Test Reason : Blood Pressure : */* mmHG Vent. Rate : 80 BPM Atrial Rate : 80 BPM P-R Int : 160 ms QRS Dur : 80 ms QT Int : 436 ms P-R-T Axes : 54 49 53 degrees QTcB Int : 502 ms Sinus rhythm Low voltage QRS Prolonged QT Abnormal ECG Confirmed by Kp Redman ([id number]) on 07/27/2024 3:37:26 PM Referred By: REFERRED SELF Confirmed By: Kp Redman
--- NOTE | 2024-07-27 16:34 | History & Physical Report ---
Date of Service July 27, 2024 Assessment & Plan (1) Pancreatitis without necrosis or infection: Plan: Most likely alcoholic pancreatitis. The patient is clinically improving. Continue to advance diet. Continue supportive care. Admission and Anticipated Discharge Date Admission Date: July 25, 2024 History of Present Illness Chief Complaint: Acute pancreatitis. Primary Care Provider: Aj Gaston MD The patient presented to the emergency room with palpitations, possible alcohol withdrawal, the last drink was on 1028. She has a history of alcohol dependence. In the emergency room lipase was 2411. She had mild elevation of transaminases. Platelet count was 160,000 decreased to 83,[address] scan of the abdomen and pelvis was obtained and showed mild acute pancreatitis without necrosis. The patient denies significant abdominal pain, nausea, vomiting. She is now feeling better, she is able to eat. No prior history of pancreatitis. History of alcohol dependence of many years duration. The patient was in many alcohol rehab programs several times in the past. Allergies Allergy/AdvReac Type Severity Reaction Status Date / Time nickel Allergy Rash Verified 01/06/24 16:22 Home Medications Medication Instructions Recorded Confirmed Type acetaminophen 500 mg tablet 500 - 1,000 mg PO Q6H PRN Pain 08/14/23 07/25/24 History (Tylenol Extra Strength) albuterol sulfate 90 mcg/actuation 2 puff inhalation QID PRN 08/14/23 07/25/24 History aerosol inhaler (Ventolin HFA) Shortness Of Breath Or Wheezing gabapentin 300 mg capsule 300 mg PO TID 01/06/24 07/25/24 History amitriptyline 100 mg tablet 125 mg PO HS PRN Sleep 03/15/24 07/25/24 History hydroxyzine pamoate 100 mg capsule 100 mg PO TID PRN Anxiety 03/15/24 07/25/24 History sertraline 50 mg tablet 100 mg PO QAM 03/15/24 07/25/24 History torsemide 10 mg tablet 10 mg PO QAM 03/15/24 07/25/24 History topiramate 100 mg tablet 100 mg TID 07/25/24 07/25/24 History topiramate 25 mg tablet 25 mg BID 07/25/24 07/25/24 History Past Med/Surg History Problem List (Updated 07/27/24 @ 18:24 by Myke Shepherd MD) Pancreatitis without necrosis or infection Vomiting (Acute) ZUHAIR (acute kidney injury) (Acute) Alcohol withdrawal (Acute) Alcohol abuse (Acute) Hypomagnesemia (Acute) Tachycardia (Acute) Alcohol withdrawal Alcoholic ketoacidosis (Acute) Contusion (Acute) Alcoholic intoxication (Acute) Alcohol abuse (Acute) Weakness (Acute) Hypomagnesemia (Acute) Hallucinations (Acute) Alcohol abuse (Acute) S/P nasal surgery septoplasty and rhinoplasty-both w/Dr. Castañeda Allergic rhinitis Abnormal uterine bleeding ADD (attention deficit disorder) Insomnia Restless leg Anxiety and depression (Chronic) Fatty liver (Chronic) Alcohol dependence (Chronic) Medical History Tobacco use disorder Intractable nausea and vomiting Depression Anxiety Surgical History H/O wisdom tooth extraction Family History Aunt Breast cancer, Onset Age: 65 paternal Asthma maternal Grandfather (Paternal) Prostate cancer Aunt Allergies maternal Family/Other Allergies cousins Asthma cousins Other No family history of adverse response to anesthesia No family history of bleeding disorder Denies family history of Ovarian cancer Colorectal cancer Social History Smoking Status: Current every day smoker Tobacco Type: Cigarettes Age Started Using Tobacco: 20; packs per day: 0.5; Cigarettes Per Day: 4; Second Hand Exposure: No; Do You Dip or Chew Tobacco: No; Tobacco Cessation Education Requested by Patient: No Hx Alcohol Use: Yes Alcohol type: hard liquor Hx Substance Use: No Preferred Language: Swiss 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 Ability: Effective Hearing Screen Coordinator Required: No Beliefs That Will Affect Care: None marital status: Single Current Living Situation: Alone Other Information That Helps Us Care for You: No Feels Safe at Home: Yes Safety Concerns: Feels Safe At This Time Assistive Devices: None Review of Systems Constitutional: Denies weight loss, chills, fever, fatigue. Respiratory: Denies cough, denies shortness of breath. Cardiovascular: Denies chest pain and palpitations. Gastrointestinal: Denies nausea, vomiting, diarrhea, constipation, abdominal pain. Physical Exam Physical Exam: Constitutional: WD/WN, vitals as above Respiratory: normal respiratory effort, lungs clear to auscultation Cardiovascular: RRR, no murmur, no edema Gastrointestinal (Abdomen): normal bowel sounds, soft, nontender, no hepatosplenomegaly. Neurological: Oriented x 3, grossly no focal abnormalities, speech is intact. Results & Data Vital Signs (Past 12 Hours) Vital Signs Temp Pulse Pulse Resp BP Pulse Ox O2 Del Method 07/27/24 15:55 36.5 C 84 18 100/77 98 Room Air 07/27/24 14:31 100 H 07/27/24 11:08 36.8 C 90 16 100/68 98 Room Air 07/27/24 08:23 36.6 C 91 H 16 100/69 99 Room Air 07/27/24 08:00 Room Air 07/27/24 05:47 78 Code Status & VTE Plan VTE Prophylaxis Plan VTE Prophylaxis will be ordered: Yes Coding Level of Care Code 81065 INT INP/OBS CARE 2/55MIN Diagnoses Pancreatitis without necrosis or infection K85.90
[2024-07-27] MEDS ORDERED: GABAPENTIN 600 MG TAB PO SCH (18:00)
[2024-07-27] MEDS: GABAPENTIN 600 MG TAB PO SCH (23:22)
[2024-07-28 06:45] LABS: Hematocrit (blood only) 31.7 % (37.0-47.0); Hemoglobin 11.2 g/dl (12.0-16.0); Mean Corpuscular Hemoglobin 33.3 pg (25.0-34.0); Mean Corpuscular Hgb Conc 35.3 g/dL (32.0-36.0); Mean Corpuscular Volume 94.3 fL (80.0-100.0); Mean Platelet Volume 10.8 fL (9.4-12.4); Platelet Count 82 K/uL (130-400); RDW Coefficient of Variation 15.3 % (11.5-14.5); RDW Standard Deviation 53.5 fL (36.4-46.3); Red Blood Count 3.36 M/uL (4.20-5.40)
[2024-07-28 07:08] LABS: Albumin Globulin Ratio 1.3 (0.9-2); Albumin Level 3.3 gm/dl (3.4-5.0); BUN Creatinine Ratio 12.7 (10-20); Bilirubin,Total 0.8 mg/dl (0.2-1.0); Calcium 8.4 mg/dl (8.6-10.3); Creatinine Clr Calc Pharmacy 116.2 ml/min; Globulin 2.5 gm/dl (2.5-4.0); Magnesium 1.4 mg/dl (1.7-2.4); Phosphorus 4.4 mg/dl (2.5-4.9); Potassium 3.3 mmol/L (3.5-5.1); Total Protein 5.8 gm/dl (6.0-8.3)
[2024-07-28] MEDS: POTASSIUM CHLORIDE CRTAB 20 MEQ TABCR PO SCH (08:13)
[2024-07-28] MEDS: MAGNESIUM OXIDE 400 MG TAB PO SCH (08:13)
--- NOTE | 2024-07-28 11:37 | Discharge Summary ---
Discharge Summary Date of Service July 28, 2024 Principal Dx & Hospital Course #1 = Principal Diagnosis (1) Alcoholic ketoacidosis: (2) Alcohol withdrawal: Plan Ms. Nathan is a 43 year old woman with medical history significant for ADHD, anxiety/mood disorder, migraines, chronic pancytopenia (baseline hemoglobin of 11), ongoing tobacco/alcohol abuse presented to [facility] ED due to alcohol withdrawal. Patient with provided mixed recollection of events: noting last drink to be anywhere from 48 hours to 2 weeks prior to arrival. Patient with improvement s/p IVF. Pt with noted alcoholic pancreatitis Pt desirous of discharge on 07/28/24 Alcoholic Pancreatitis Lipase elevated at 2411 on admission AST elevation, likely secondary to alcohol use. Ct Abd/pelvis from 07/26 noting acute pancreatitis without abscess Pt with worsening symptoms on 07/27 GI consulted, recommended/stated the following: "Most likely alcoholic pancreatitis. The patient is clinically improving. Continue to advance diet. Continue supportive care." Continue to monitor symptoms Alcohol withdrawal last drink 07/24 AWSS per protocol Gabapentin taper started, then to resume home gabapentin There was concern from family that pt had been using home gabapentin excessively, pcp followup of this recommended pt stable for discharge Sinus tachycardia Prolonged qtc EKG noting sinus rhythm on 07/27, prolonged qtc of 502 tachycardia likely 2/2 dehydration/vomiting/withdrawal possibly pt on home hydroxyzine 100mg TID which she takes on schedule, possible cause of prolonged qtc. Dosing decreased to 50mg TID prn with pcp followup for continued monitoring HR improved with ivf Close pcp followup after discharge, consider initiation of a BB such as propanolol to help with both anxiety and her sinus tach. Migraines Topamax 125mg qam, 100mg noon, 125mg qpm Continue regimen Anxiety/mood disorder, at baseline Continue Hydroxyzine PRN anxiety (dose decreased due to qtc) Continue 125mg amitriptyline qhs prn Continue 100mg qam sertraline Anion gap metabolic acidosis, hypochloremic likely secondary to vomiting/ketosis encourage po intake improving ZUHAIR Pedal edema prescribed torsemide daily for intermittent pedal edema baseline 0.5-0.8, on admission 1.7 s/p IVF, suspect 2/2 prerenal: dehydration held home torsemide, resumed on discharge ZUHAIR resolved, no pedal edema. Hypokalemia Hypomagnesemia likely in setting of chronic alcohol misuse repleted with po K and phos and discharged with a few days of the same PCP follow up for continued monitoring of levels Chronic anemia Hgb 15 on admission PCP follow up Prior tobacco abuse reports 2-3 months without cigarette Notes For Next Care Provider QTC prolonged with sinus tach but pt stable and desirous of discharge. Close PCP follow up for continued monitoring after discharge. Please encourage alcohol cessation. Patient indicates that she will go back to alcohol rehab after discharge Please continue to monitor her electrolyte levels, in particular magnesium and potassium levels Medication Changes From Visit Mag-Ox 400 mg twice daily for 3 more days KCl 20 mEq twice daily for 2 more days Valacyclovir 2000mg for 1 more dose Admission HPI Per Admitting Provider The patient presented to the emergency room with palpitations, possible alcohol withdrawal, the last drink was on 1028. She has a history of alcohol dependence. In the emergency room lipase was 2411. She had mild elevation of transaminases. Platelet count was 160,000 decreased to 83,[address] scan of the abdomen and pelvis was obtained and showed mild acute pancreatitis without necrosis. The patient denies significant abdominal pain, nausea, vomiting. She is now feeling better, she is able to eat. No prior history of pancreatitis. History of alcohol dependence of many years duration. The patient was in many alcohol rehab programs several times in the past. Admission Exam Per Admitting Provider GENERAL APPEARANCE: AxOx2, tremulous anxious acutely ill, HEENT: NC, AT. MMM. EOMI, clear conjunctiva, oropharynx clear. NECK: Supple without lymphadenopathy. HEART: tachycardic LUNGS: CTAB, moving air well. No crackles or wheezes are heard. ABDOMEN: Soft, reports general discomfort no obvious tender points nondistended with good bowel sounds heard. BACK: No CVAT, no obvious deformity. EXTREMITIES: Without cyanosis, clubbing or edema. NEUROLOGICAL: Grossly nonfocal. moving all 4 extremities. CN not formally tested but appear grossly intact. Skin: Warm and dry without any rash. Discharge Exam General: Alert, oriented. No acute distress Skin: No noted rashes or bruises Psych: Appropriate mood and affect Neuro: No gross deficits while laying in bed HEENT: NC/AT CV: RRR Resp: Breath sounds clear bilaterally, no increased effort of breathing. Abdomen: Soft, tender in LUQ and lower bilateral quadrants Extremities: No edema in lower extremities bilaterally. Updated Medication List Medication Instructions Recorded Confirmed Type acetaminophen 500 mg tablet 500 - 1,000 mg PO Q6H PRN Pain 08/14/23 07/25/24 History (Tylenol Extra Strength) albuterol sulfate 90 mcg/actuation 2 puff inhalation QID PRN 08/14/23 07/25/24 History aerosol inhaler (Ventolin HFA) Shortness Of Breath Or Wheezing gabapentin 300 mg capsule 300 mg PO TID 01/06/24 07/25/24 History amitriptyline 100 mg tablet 125 mg PO HS PRN Sleep 03/15/24 07/25/24 History hydroxyzine pamoate 100 mg capsule 100 mg PO TID PRN Anxiety 03/15/24 07/25/24 History sertraline 50 mg tablet 100 mg PO QAM 03/15/24 07/25/24 History torsemide 10 mg tablet 10 mg PO QAM 03/15/24 07/25/24 History topiramate 100 mg tablet 100 mg TID 07/25/24 07/25/24 History topiramate 25 mg tablet 25 mg BID 07/25/24 07/25/24 History magnesium oxide 400 mg (241.3 mg 400 mg PO BID #6 tabs 07/28/24 Rx magnesium) tablet potassium chloride 20 mEq 20 meq PO BID #4 tabs 07/28/24 Rx tablet,extended release(part/cryst) valacyclovir 500 mg tablet 2,000 mg (4 x 500 mg) PO BID #4 07/28/24 Rx tabs Hospital Stay Data Consultations 07/25/24 18:04 ED Decision to Admit Stat 07/27/24 13:52 Consult Gastroenterology Routine Diagnostic Imagining Performed 07/26/24 10:14 CT Abd and Pelvis [CT abd pelvis IV con only] Urgent Chest X-Ray 07/25/24 16:12 XR chest 1V portable HISTORY: 43 years-old Female weakness COMPARISON: 05/08/2017 TECHNIQUE: AP view of the chest FINDINGS: Cardiomediastinal and hilar silhouettes are within normal limits. No pneumothorax, pleural effusion or airspace consolidation. Bones appear grossly intact. Sigmoidal thoracolumbar scoliosis. IMPRESSION: No acute process. ACT 112: Negative or not required by law. The above report was generated using voice recognition software. It may contain grammatical, syntax or spelling errors. Electronically signed by: Rob Payne M.D. 07/25/2024 4:57 PM Abdomen/Pelvis CT 07/26/24 10:14 CT SCAN OF THE ABDOMEN AND PELVIS WITH IV CONTRAST CLINICAL HISTORY: Generalized abdominal pain. Elevated lipase. COMPARISON STUDY: Abdominal CT dated 08/18/2023. TECHNIQUE: Following the IV administration of 94 cc of Optiray 320, CT scan of the abdomen and pelvis is performed from the lung bases to the proximal femora. Images are reviewed in the axial, sagittal, and coronal planes. IV contrast was administered without complication. A dose lowering technique was utilized adhering to the principles of ALARA. CT DOSE: 429.54 mGy.cm FINDINGS: Lung bases: The heart is normal in size and without pericardial effusion. There are trace pleural effusions with dependent atelectasis. A small hiatal hernia is noted. Liver: The contrast-enhanced liver is normal in size, contour, and attenuation. Fatty infiltration is seen adjacent to the falciform ligament. There is no intrahepatic biliary ductal dilatation. The hepatic veins and portal veins are patent. Gallbladder: Unremarkable. Spleen: Normal in size and attenuation. Pancreas: There is infiltration fluid seen around the body and tail of the pancreas, typical for acute pancreatitis. The gland enhances throughout. The du ct is normal in caliber. The splenic vein is patent. No organized peripancreatic fluid collection is identified. Adrenal glands: Unremarkable. Kidneys: The contrast enhanced kidneys are normal in size and without hydronephrosis. The kidneys enhance symmetrically. Abdominal vasculature: The abdominal aorta is normal in course and caliber. Bowel: The small bowel and colon are normal in course and caliber. The appendix is well-visualized and normal. Peritoneum: There is trace perisplenic ascites, as well as a small amount of pelvic ascites. No intraluminal peritoneal free air is seen. There is a fat- containing umbilical hernia. Lymphadenopathy: None. Pelvic viscera: The bladder wall appears thickened. The uterus and adnexa are normal as visualized. Numerous phleboliths are seen in the pelvis. Skeletal structures: No lytic or blastic lesions are seen. IMPRESSION: 1. Findings are consistent with acute pancreatitis. Correlate with clinical and laboratory findings. 2. The gland enhances throughout and no organized peripancreatic fluid collection is seen. 3. Small volume ascites. 4. Trace pleural effusions. 5. The bladder wall appears thickened. Correlate with clinical findings and urinalysis. 6. Additional findings as above. ACT 112: Negative or not required by law. Electronically signed by: Konrad Acosta M.D. 07/26/2024 5:22 PM Discharge Instructions Given to Patient (Per Discharging Provider) Emma, You are seen and treated for alcoholic pancreatitis. You are also seen by the general accountant who recommends that you continue with the advancement of your diet at home. We strongly recommend that you try to avoid the excessive use of alcohol in the future as this can make things worse and lead to additional issues with additional organs. We recommend that you do continue with alcohol rehab after discharge as you indicated. We are discharging you with a few days of potassium and magnesium supplements. Please take as prescribed. Your primary care provider will follow-up with you to ensure that your levels are stable. Your home dose of hydroxyzine was decreased to 50 mg 3 times a day as needed to help with your anxiety as the higher doses can cause some EKG changes that were noted while you were in the hospital. please keep follow up with your primary care provider about this after discharge. For your cold sores, please continue with 1 more nighttime dose of the Valacyclovir 2000 mg. Please keep close follow up with your primary care provider after discharge. Please do not hesitate to come back to the emergency room if your symptoms worsen or return. It was a pleasure taking care of you while you were here. Total Time Total Time Spent Total Time Spent (In Minutes): 65
[2024-07-28] MEDS: valACYclovir HCL 500 MG TABLET PO SCH (14:30)
--- NOTE | 2024-07-28 16:16 | Hospitalist Progress Note ---
Date of Service July 28, 2024 Assessment & Plan (1) Alcoholic ketoacidosis: (2) Alcohol withdrawal: Plan Ms. Nathan is a 43 year old woman with medical history significant for ADHD, anxiety/mood disorder, migraines, chronic pancytopenia (baseline hemoglobin of 11), ongoing tobacco/alcohol abuse presented to [facility] ED due to alcohol withdrawal. Patient with provided mixed recollection of events: noting last drink to be anywhere from 48 hours to 2 weeks prior to arrival. Patient with improvement s/p IVF. Pt with noted alcoholic pancreatitis Pt desirous of discharge on 07/28/24 Alcoholic Pancreatitis Lipase elevated at 2411 on admission AST elevation, likely secondary to alcohol use. Ct Abd/pelvis from 07/26 noting acute pancreatitis without abscess Pt with worsening symptoms on 07/27 GI consulted, recommended/stated the following: "Most likely alcoholic pancreatitis. The patient is clinically improving. Continue to advance diet. Continue supportive care." Continue to monitor symptoms Alcohol withdrawal last drink 07/24 AWSS per protocol Gabapentin taper started, then to resume home gabapentin There was concern from family that pt had been using home gabapentin dulce olguin, pcp followup of this recommended pt stable for discharge Sinus tachycardia Prolonged qtc EKG noting sinus rhythm on 07/27, prolonged qtc of 502 tachycardia likely 2/2 dehydration/vomiting/withdrawal possibly pt on home hydroxyzine 100mg TID which she takes on schedule, possible cause of prolonged qtc. Dosing decreased to 50mg TID prn with pcp followup for continued monitoring HR improved with ivf Close pcp followup after discharge, consider initiation of a BB such as propanolol to help with both anxiety and her sinus tach. Migraines Topamax 125mg qam, 100mg noon, 125mg qpm Continue regimen Anxiety/mood disorder, at baseline Continue Hydroxyzine PRN anxiety (dose decreased to 50mg TID due to qtc) Continue 125mg amitriptyline qhs prn Continue 100mg qam sertraline Anion gap metabolic acidosis, hypochloremic likely secondary to vomiting/ketosis encourage po intake improving ZUHAIR Pedal edema prescribed torsemide daily for intermittent pedal edema baseline 0.5-0.8, on admission 1.7 s/p IVF, suspect 2/2 prerenal: dehydration held home torsemide, resumed on discharge ZUHAIR resolved, no pedal edema. Hypokalemia Hypomagnesemia likely in setting of chronic alcohol misuse repleted with po K and phos and discharged with a few days of the same PCP follow up for continued monitoring of levels Chronic anemia Hgb 15 on admission PCP follow up Prior tobacco abuse reports 2-3 months without cigarette DVT heparin sq Dispo Admission and Anticipated Discharge Date Admission Date: July 25, 2024 Subjective patient was seen in the a.m. Laying in bed Lots of questions, would like to be seen by the dietitian again Anxious for discharge and would like to go home but having difficulty coordinating a ride Would like her diet advanced Review of Systems Review of Systems: All systems reviewed & are unremarkable except as noted in Subjective Physical Exam Physical Exam: General: Alert, oriented. No acute distress Skin: No noted rashes or bruises Psych: Appropriate mood and affect Neuro: No gross deficits while laying in bed HEENT: NC/AT CV: RRR Resp: Breath sounds clear bilaterally, no increased effort of breathing. Abdomen: Soft, tender in LUQ and lower bilateral quadrants Extremities: No edema in lower extremities bilaterally. Results & Data Results & Data Vital Signs (Past 12 Hours) Vital Signs Temp Pulse Pulse Resp BP Pulse Ox Pulse Ox 07/28/24 11:38 36.8 C 118 H 18 100/63 07/28/24 09:00 07/28/24 09:00 99 07/28/24 08:00 07/28/24 08:00 36.9 C 103 H 20 114/83 99 07/28/24 05:54 87 O2 Del Method O2 Del Method O2 Flow Rate 07/28/24 11:38 Room Air 07/28/24 09:00 Room Air 07/28/24 09:00 Room Air 0 07/28/24 08:00 Room Air 07/28/24 08:00 Room Air 07/28/24 05:54
[2024-07-28] MEDS: hydrOXYzine HCl 25 MG TAB PO PRN (16:35)
[2024-07-29] MEDS ORDERED: GABAPENTIN 600 MG TAB PO SCH ×2 (06:00→12:00)
[2024-07-29 07:14] LABS: Hematocrit (blood only) 31.3 % (37.0-47.0); Hemoglobin 10.8 g/dl (12.0-16.0); Mean Corpuscular Hemoglobin 32.9 pg (25.0-34.0); Mean Corpuscular Hgb Conc 34.5 g/dL (32.0-36.0); Mean Corpuscular Volume 95.4 fL (80.0-100.0); Mean Platelet Volume 9.7 fL (9.4-12.4); Platelet Count 115 K/uL (130-400); RDW Coefficient of Variation 15.5 % (11.5-14.5); RDW Standard Deviation 54.4 fL (36.4-46.3); Red Blood Count 3.28 M/uL (4.20-5.40); White Blood Count 7.64 K/ul (4.8-10.8)
[2024-07-29 07:23] LABS: Albumin Globulin Ratio 1.3 (0.9-2); Albumin Level 3.4 gm/dl (3.4-5.0); BUN Creatinine Ratio 11.8 (10-20); Bilirubin,Total 0.7 mg/dl (0.2-1.0); Calcium 8.7 mg/dl (8.6-10.3); Creatinine Clr Calc Pharmacy 125.4 ml/min; Globulin 2.7 gm/dl (2.5-4.0); Magnesium 1.1 mg/dl (1.7-2.4); Phosphorus 4.4 mg/dl (2.5-4.9); Potassium 3.2 mmol/L (3.5-5.1); Total Protein 6.1 gm/dl (6.0-8.3)
[2024-07-29 07:39] VITALS: BP 128/63; RESP 18; TEMP 98.6
[2024-07-29] MEDS: GABAPENTIN 300 MG CAP PO SCH (08:00)
--- NOTE | 2024-07-29 08:42 | Gastroenterology Progress Note ---
Date of Service July 29, 2024 Assessment & Plan (1) Pancreatitis without necrosis or infection: Plan: Discussed abstaining from ETOH and low fat diet. OK from GI standpoint to discharge once otherwise cleared by medicine. IP GI Service will sign off. Admission and Anticipated Discharge Date Admission Date: July 25, 2024 Subjective Patient feels well. Denies abdominal pain or vomiting. Having BMs and tolerating solid diet. Review of Systems Review of Systems: Negative except for HPI and below. Gastrointestinal: Denies any abdominal pain, vomiting - had normal BM last night. Passing flatus and tolerating solid diet. Physical Exam Physical Exam: WD WN WF NAD Respiratory: Clear anteriorly Cardiovascular: Reg Gastrointestinal (Abdomen): NL BS, soft, nontender, no guarding or rebound. Results & Data Results & Data Vital Signs (Past 12 Hours) Vital Signs Temp Pulse Pulse Resp BP Pulse Ox O2 Del Method 07/29/24 07:37 37.0 C 87 18 128/63 96 Room Air 07/29/24 03:05 37.5 C 99 H 16 102/71 97 Room Air 07/28/24 22:59 37.5 C 88 19 118/81 99 Room Air 07/28/24 21:49 88 PG Care Time/CCT Total # of Minutes Spent Total Time Spent with Patient: Total time spent is greater than 50% in coordination of care (as documented) at patient's floor/unit and/or counseling patient: Coding Level of Care Code 78501 SUB INP/OBS CARE 25MIN Diagnoses Pancreatitis without necrosis or infection K85.90
[2024-07-29] MEDS: POTASSIUM CHLORIDE CRTAB 20 MEQ TABCR PO SCH (09:06)
[2024-07-29] MEDS: MAGNESIUM CHLORIDE W/CALCIUM 64MG DELAYED REL TAB PO SCH (09:07)
--- NOTE | 2024-07-29 10:04 | Discharge Summary ---
Discharge Summary Date of Service July 29, 2024 Principal Dx & Hospital Course #1 = Principal Diagnosis (1) Alcoholic ketoacidosis: (2) Alcohol withdrawal: Plan Ms. Nathan is a 43 year old woman with medical history significant for ADHD, anxiety/mood disorder, migraines, chronic pancytopenia (baseline hemoglobin of 11), ongoing tobacco/alcohol abuse presented to [facility] ED due to alcohol withdrawal. Patient with provided mixed recollection of events: noting last drink to be anywhere from 48 hours to 2 weeks prior to arrival. Pt with noted alcoholic pancreatitis Patient with improvement s/p IVF, bowel rest and advancement of diet Alcoholic Pancreatitis Lipase elevated at 2411 on admission AST elevation, likely secondary to alcohol use. Ct Abd/pelvis from 07/26 noting acute pancreatitis without abscess Pt with worsening symptoms on 07/27 GI consulted, recommended/stated the following on 07/28: "Most likely alcoholic pancreatitis. The patient is clinically improving. Continue to advance diet. Continue supportive care." On 07/29, GI Noted "Discussed abstaining from ETOH and low fat diet. OK from GI standpoint to discharge once otherwise cleared by medicine." PCP followup Alcohol withdrawal last drink 07/24 AWSS per protocol Gabapentin taper started, then to resume home gabapentin There was concern from family that pt had been using home gabapentin excessively, pcp followup of this recommended pt stable for discharge Sinus tachycardia Prolonged qtc EKG noting sinus rhythm on 07/27, prolonged qtc of 502 tachycardia likely 2/2 dehydration/vomiting/withdrawal possibly pt on home hydroxyzine 100mg TID which she takes on schedule, possible cause of prolonged qtc. Dosing decreased to 50mg TID prn with pcp followup for continued monitoring HR improved with ivf Close pcp followup after discharge Cold Sores Gingivostomatitis Pt with cold sore outbreak around her mouth on 07/28 Treated with 1 day of valacyclovir 2000mg BID Migraines Topamax 125mg qam, 100mg noon, 125mg qpm Continue regimen Anxiety/mood disorder, at baseline Continue Hydroxyzine PRN anxiety (dose decreased due to qtc) Continue 125mg amitriptyline qhs prn Continue 100mg qam sertraline Anion gap metabolic acidosis, hypochloremic likely secondary to vomiting/ketosis encourage po intake improved ZUHAIR Pedal edema prescribed torsemide daily for intermittent pedal edema baseline 0.5-0.8, on admission 1.7 s/p IVF, suspect 2/2 prerenal: dehydration held home torsemide, resumed on discharge ZUHAIR resolved, no pedal edema on discharge Hypokalemia Hypomagnesemia Hypophosphatemia likely in setting of chronic alcohol misuse repleted with po K and phos and discharged with a few days of the same K and mag repleted on day of discharge, discharged with 3 days of KCl 20mEq daily and mag ox 400mg BID PCP follow up for continued monitoring of levels Chronic anemia Hgb 15 on admission PCP follow up Prior tobacco abuse reports 2-3 months without cigarette Encourage continued cessation Notes For Next Care Provider QTC prolonged at times. Close PCP follow up for continued monitoring after discharge. Hydroxyzine dose decreased. Please encourage alcohol cessation. Patient indicates that she will go back to alcohol rehab after discharge Please continue to monitor her electrolyte levels, in particular magnesium, phosphorus and potassium levels Medication Changes From Visit Mag-Ox 400 mg twice daily for 3 more days KCl 20 mEq daily for 3 more days Admission HPI Per Admitting Provider The patient presented to the emergency room with palpitations, possible alcohol withdrawal, the last drink was on 1028. She has a history of alcohol dependence. In the emergency room lipase was 2411. She had mild elevation of transaminases. Platelet count was 160,000 decreased to 83,[address] scan of the abdomen and pelvis was obtained and showed mild acute pancreatitis without necrosis. The patient denies significant abdominal pain, nausea, vomiting. She is now feeling better, she is able to eat. No prior history of pancreatitis. History of alcohol dependence of many years duration. The patient was in many alcohol rehab programs several times in the past. Admission Exam Per Admitting Provider GENERAL APPEARANCE: AxOx2, tremulous anxious acutely ill, HEENT: NC, AT. MMM. EOMI, clear conjunctiva, oropharynx clear. NECK: Supple without lymphadenopathy. HEART: tachycardic LUNGS: CTAB, moving air well. No crackles or wheezes are heard. ABDOMEN: Soft, reports general discomfort no obvious tender points nondistended with good bowel sounds heard. BACK: No CVAT, no obvious deformity. EXTREMITIES: Without cyanosis, clubbing or edema. NEUROLOGICAL: Grossly nonfocal. moving all 4 extremities. CN not formally tested but appear grossly intact. Skin: Warm and dry without any rash. Discharge Exam General: Alert, oriented. No acute distress Psych: Appropriate mood and affect Neuro: No gross deficits while laying in bed HEENT: NC/AT, cold sores around mouth CV: RRR Resp: Breath sounds clear bilaterally, no increased effort of breathing. Abdomen: Soft, nontender Extremities: No edema in lower extremities bilaterally. Updated Medication List Medication Instructions Recorded Confirmed Type acetaminophen 500 mg tablet 500 - 1,000 mg PO Q6H PRN Pain 08/14/23 07/25/24 History (Tylenol Extra Strength) albuterol sulfate 90 mcg/actuation 2 puff inhalation QID PRN 08/14/23 07/25/24 History aerosol inhaler (Ventolin HFA) Shortness Of Breath Or Wheezing gabapentin 300 mg capsule 300 mg PO TID 01/06/24 07/25/24 History amitriptyline 100 mg tablet 125 mg PO HS PRN Sleep 03/15/24 07/25/24 History sertraline 50 mg tablet 100 mg PO QAM 03/15/24 07/25/24 History torsemide 10 mg tablet 10 mg PO QAM 03/15/24 07/25/24 History topiramate 100 mg tablet 100 mg TID 07/25/24 07/25/24 History topiramate 25 mg tablet 25 mg BID 07/25/24 07/25/24 History hydroxyzine pamoate 100 mg capsule 50 mg (1/2 x 100 mg) PO TID PRN 07/28/24 07/25/24 Rx Anxiety #0 caps magnesium oxide 400 mg (241.3 mg 400 mg PO BID #6 tabs 07/28/24 Rx magnesium) tablet potassium chloride 20 mEq 20 meq PO DAILY #3 tabs 07/29/24 Rx tablet,extended release Hospital Stay Data Consultations 07/25/24 18:04 ED Decision to Admit Stat 07/27/24 13:52 Consult Gastroenterology Routine Diagnostic Imagining Performed 07/26/24 10:14 CT Abd and Pelvis [CT abd pelvis IV con only] Urgent Chest X-Ray 07/25/24 16:12 XR chest 1V portable HISTORY: 43 years-old Female weakness COMPARISON: 05/08/2017 TECHNIQUE: AP view of the chest FINDINGS: Cardiomediastinal and hilar silhouettes are within normal limits. No pneumothorax, pleural effusion or airspace consolidation. Bones appear grossly intact. Sigmoidal thoracolumbar scoliosis. IMPRESSION: No acute process. ACT 112: Negative or not required by law. The above report was generated using voice recognition software. It may contain grammatical, syntax or spelling errors. Electronically signed by: Rob Payne M.D. 07/25/2024 4:57 PM Abdomen/Pelvis CT 07/26/24 10:14 CT SCAN OF THE ABDOMEN AND PELVIS WITH IV CONTRAST CLINICAL HISTORY: Generalized abdominal pain. Elevated lipase. COMPARISON STUDY: Abdominal CT dated 08/18/2023. TECHNIQUE: Following the IV administration of 94 cc of Optiray 320, CT scan of the abdomen and pelvis is performed from the lung bases to the proximal femora. Images are reviewed in the axial, sagittal, and coronal planes. IV contrast was administered without complication. A dose lowering technique was utilized adhering to the principles of ALARA. CT DOSE: 429.54 mGy.cm FINDINGS: Lung bases: The heart is normal in size and without pericardial effusion. There are trace pleural effusions with dependent atelectasis. A small hiatal hernia is noted. Liver: The contrast-enhanced liver is normal in size, contour, and attenuation. Fatty infiltration is seen adjacent to the falciform ligament. There is no intrahepatic biliary ductal dilatation. The hepatic veins and portal veins are patent. Gallbladder: Unremarkable. Spleen: Normal in size and attenuation. Pancreas: There is infiltration fluid seen around the body and tail of the pancreas, typical for acute pancreatitis. The gland enhances throughout. The duct is normal in caliber. The splenic vein is patent. No organized peripancreatic fluid collection is identified. Adrenal glands: Unremarkable. Kidneys: The contrast enhanced kidneys are normal in size and without hydrone phrosis. The kidneys enhance symmetrically. Abdominal vasculature: The abdominal aorta is normal in course and caliber. Bowel: The small bowel and colon are normal in course and caliber. The appendix is well-visualized and normal. Peritoneum: There is trace perisplenic ascites, as well as a small amount of pelvic ascites. No intraluminal peritoneal free air is seen. There is a fat-containing umbilical hernia. Lymphadenopathy: None. Pelvic viscera: The bladder wall appears thickened. The uterus and adnexa are normal as visualized. Numerous phleboliths are seen in the pelvis. Skeletal structures: No lytic or blastic lesions are seen. IMPRESSION: 1. Findings are consistent with acute pancreatitis. Correlate with clinical and laboratory findings. 2. The gland enhances throughout and no organized peripancreatic fluid collection is seen. 3. Small volume ascites. 4. Trace pleural effusions. 5. The bladder wall appears thickened. Correlate with clinical findings and urinalysis. 6. Additional findings as above. ACT 112: Negative or not required by law. Electronically signed by: Konrad Acosta M.D. 07/26/2024 5:22 PM Pending Results Patient Have Any Pending Studies at Discharge: No Discharge Instructions Given to Patient (Per Discharging Provider) Emma You are seen and treated for alcoholic pancreatitis. You are also seen by the photographer assistant who recommends that you continue with the advancement of your diet at home. We strongly recommend that you try to avoid the excessive use of alcohol in the future as this can make things worse and lead to additional issues with other organs. We recommend that you do continue with alcohol rehab after discharge as you indicated. We are discharging you with a few days of potassium and magnesium supplements. Please take as prescribed. Your primary care provider will follow-up with you to ensure that your levels are stable. Your home dose of hydroxyzine was decreased to 50 mg 3 times a day as needed to help with your anxiety as the higher doses can cause some EKG changes that were noted while you were in the hospital. please keep follow up with your primary care provider about this after discharge. Please keep close follow up with your primary care provider after discharge. Please do not hesitate to come back to the emergency room if your symptoms worsen or return. It was a pleasure taking care of you while you were here. Total Time Total Time Spent Total Time Spent (In Minutes): 65
[2024-07-29 12:43] VITALS: PULSE 87; O2SAT 96
--- NOTE | 2024-07-29 19:12 | Electrocardiogram Report ---
Test Reason : Blood Pressure : */* mmHG Vent. Rate : 92 BPM Atrial Rate : 92 BPM P-R Int : 152 ms QRS Dur : 82 ms QT Int : 350 ms P-R-T Axes : 40 48 51 degrees QTcB Int : 432 ms Normal sinus rhythm Nonspecific T wave abnormality Abnormal ECG When compared with ECG of 27-Jul-2024 05:53, Fusion complexes are no longer Present Nonspecific T wave abnormality now evident in Inferior leads Nonspecific T wave abnormality now evident in Anterolateral leads QT has shortened Confirmed by Neema Lyn ([place]) on 07/29/2024 7:11:40 PM Referred By: REFERRED SELF Confirmed By: Neema Lyn
== END 2024-07-29 13:05 | disposition home or self-care (01) | DRG 439 ==
LOC: ED 15:52 → 2E 17:53 → SUATTDRO 17:53 → 2E 18:23

== ENCOUNTER 2024-08-19 20:37 | Inpatient (IN) ==
--- OUTSIDE RECORDS SUMMARY | 2024-08-19 20:43 | External Medical Summary | Summary of Care ---
Author Name Unknown Organization [facility] Address [address] [place] [address] Phone [phone] Care Team Providers Care Pt Skilled Name Role Phone Marilin MICHAELS MD, Aj Westfall Primary Care Provider [phone] Reason for Visit * Reason Onset Date Comments Medication Refill 08/07/2024 Medication Pre-auth 08/07/2024 UROMAG 140 M G CAPSULE Encounter Details Date Type Department Care Team (Late st Contact Info) Description 08/07/2024 Telephone Family Practice [facility] [address] [place] [address] Aj Gaston III, MD [address] [place] [address] Medication Refill; Medication Pre-auth (UR... Allergies Active Allergy Reactions Criticality Noted Date Comments Nickel Rash 06/01/2018 documented as of this encounter (statuses as of 08/07/2024) Medications Acetaminophen 500 MG Oral Tablet Take 1 [...] 06/16/2024 Active Torsemide 10 MG Oral Tablet (Demadex)Indica tions:Pedal edema Take 1 Tablet by mouth in [...] 3x daily. 270 Capsule 3 06/20/2024 Active valACYclovir HCl 1 GM Oral Tablet (Valtrex)Indica tions:HSV-1 infection Take 1 Tablet by mouth in the morning and 1 Tablet at noon and 1 Tablet before bedtime. For 7 days for shingles. 21 Tablet 08/01/2024 Active Magnesium Oxide 400 MG Oral Tablet Take 1 Tablet by mouth in the morning and 1 Tablet before bedtime. 07/28/2024 Active Magnesium Oxide 140 MG Oral CapsuleIndicati ons:Hypomagnese tiffany Take 3 Capsules by mouth in the morning and 3 Capsules before bedtime. 180 Capsule 08/07/2024 09/06/20 Active Potassium Chloride ER 10 MEQ Oral Capsule Extended Release Take 2 Capsules by mouth in the morning. 60 Capsule 08/07/2024 09/06/20 24 Active documented as of this encounter (statuses as of 08/07/2024) Active Problems Problem Noted Date Diagnosed Date Major depressive disorder, recurrent episode, mo derate 11/15/2018 Depression with anxiety 10/19/2016 Malaise and fatigue 08/18/2010 Tobacco use disorder 11/02/2007 Elevated liver enzymes Migraine Insomnia documented as of this encounter (statuses as of 08/07/2024) Resolved Problems Problem Noted Date Diagnosed Date Resolved Date Alcohol abuse, in remission 04/24/2023 04/24/2023 Routine medical exam 08/18/2010 018 documented as of this encounter (statuses as of 08/07/2024) Immunizations Name Administration Dates Next Due Covid-19, [...] Answer Date Recorded PHQ Adult Total Score 2 08/01/2024 Hunger Vital Sign Answer Date Recorded Within the past 12 months, y ou worried that your food would run out before you got the money to buy more. Never true 08/01/20 24 Within the past 12 months, t he food you bought just didn't last and you didn't have money to get more. Never true 08/01/2024 Childcare Answer Date Recorded Do you feel overwhelmed with taking care of a child, family member or friend? No 08/01/2024 Does your family need help f inding childcare? (Household - for ages 0-17 years) Not on file 08/01/2024 Clothing Answer Date Recorded Have you been unable to get clothing when it was really needed? No 08/01/2024 Is your family able to get c lothes or diapers when needed? (Household - for ages 0-17 years) Not on file 08/01/2024 Personal Safety Answer Date Recorded Do you feel unsafe or have concerns for your saf ety? No 08/01/2024 Do you have concerns for you r family's safety? (Household - for ages 0-17 years) Not on file 08/01/2024 Utilities Answer Date Recorded Do you have trouble paying y our heating, water, or electric bill? No 08/01/2024 Is your family able to pay t he heat, water, or electric bill? (Household - for ages 0-17 years) Not on file 08/01/2024 Does your family have access to good internet? (Household - for ages 0-17 years) Not on file 08/01/2024 Employment Status Answer Date Recorded Are you unemployed or without regular income? No 08/01/2024 Does the household have a [facility] source of income? (Household - for ages 0-17 years) Not on file 08/01/2024 Social Connections Answer Date Recorded How often do you feel lonely or isolated from those around you? Sometimes 08/01/2024 Financial Resource Strain Answer Date R ecorded Do you have any trouble payi ng for your medications, or do you think you might in the future? No 08/01/2024 Does your family have troubl e paying for medicine? (Household - for ages 0-17 years) Not on file 08/01/2024 Transportation Needs Answer Date Record ed Do you have trouble getting a ride to medical visits or work? (Adult - for ages 18 years and over) Not on file 08/01/2024 Does your family have a hard time getting a ride to doctors visits? (Household - for ages 0-17 years) Not on file 08/01/2024 Has lack of transportation k ept you from medical appointments, meetings, work, or from getting things needed for daily living? Check all that apply. No 08/01/2024 Do you (or your family) have trouble finding or paying for a ride (transportation)? (Household - for ages 0-17 years) Not on file 08/01/2024 Housing Stability Answer Date Recorded Do you currently live in a s helter or have no steady place to sleep at night? No 08/01/2024 Do you think you are at risk of becoming homeless? (Adult - for ages 18 years and over) Not on file 08/01/2024 Does your family worry about paying for your home or becoming homeless? (Household - for ages 0-17 years) Not on file 1 10/01/2023 Are you homeless or worried that you might be in the future? No 08/01/2024 Are you (or your family) cyndi eless or worried that you might be in the future? (Household - for ages 0-17 years) Not on file Food Insecurity Answer Date Recorded Do you need food for this week? No 08/01/2024 Are you able to get enough f ood for your family? (Household - for ages 0-17 years) Not on file 08/01/2024 Does your family need food t his week? (Household - for ages 0-17 years) Not on file 08/01/2024 Do you always have enough fo od for your family? (Household - for ages 0-17 years) Not on file 08/01/2024 Comments No Sex and Gender Information Value Date Recorded Sex Assigned at Not on file Legal Sex Female 6:34 AM EST Gender Identity Not on file Sexual Orientation Not on file Occupation Industry Job Start Date Job End Date Not on file Not on file Not on file Not on file documented as of this encounter Miscellaneous Notes * Telephone Encounter - Micky Alvarez CPhT - 08/07/2024 1:42 PM EST Patients insurance would like to inform the office that UROMAG 140 MG CAPSULE is denied because excluded from coverage. They will fax this info to the office, please review and resubmit if appropriate. Thank you, Edvin Alvarez ([facility]) [facility] 08/07/2024, 1:42 PM * Telephone Encounter - Deborah De Anda [facility] - 08/07/2024 1:35 PM EST Released to pharmacy Thank you, Deborah De Anda [facility] Clinical Pharmacist [facility] 08/07/24 1:35 PM [phone] * Telephone Encounter - Shaonn Gray microphone boom operator - 08/07/2024 1:23 PM EST Please reroute Rx to . This was not sent Pending Prescriptions: Disp Refills Magnesium Oxide 140 MG Oral Capsule 180 Ca*0 Sig: Take 3 Capsules by mouth in the morning and 3 Capsules before bedtime. Last Visit: 06/16/2024 (in office), 09/03/2021 (telemedicine) Visit date not found If no future appointments scheduled, and last appointment is greater than a year ago, please schedule patient for a follow-up appointment Last date the medication was ordered: Patient Phone Numbers Labs: Lab Results Component Value Date/Time CREAT 0.9 08/01/2024 03:36 PM CREAT 0.9 06/12/2020 12:23 PM POTASSIUM 4.2 08/01/2024 03:36 PM POTASSIUM 5.3 (H) 06/12/2020 12:23 PM TSH 1.72 04/27/2023 11:24 AM TSH 1.02 06/12/2020 12:23 PM LDL 103 02/25/2024 03:31 PM LDL 99 06/12/2020 12:23 PM ALT 27 08/01/2024 03:36 PM ALT 14 06/12/2020 12:23 PM HGBA1C 4.9 06/12/2020 12:23 PM documented in this encounter Plan of Treatment Upcoming Encounters Date Type Department Care Team (Late st Contact Info) Description 08/17/2024 3:45 PM EST Imaging Radiology [facility] [address] [place] [id number] 08/21/2024 1:20 PM EST Office Visit General Internal Medicine [facility] [address] [place] [address] Jolynn Aguilar MD [address] [facility] [place] [address] Health Maintenance Due Date Last Done Comments Hepatitis B Vaccine (1 of 3 - 19+ 3-dose series) 2001 HPV/Co-Test 2012 COVID-19 Vaccine ( season) 2024 09/23/2022 Influenza Vaccine (FLU shot) (#1) 2024 Mammogram 06/28/2024 06/28/2023, 06/21/2023 Cervical Cancer Screening 08/27/2024 Pap Smear 08/27/2024 08/27/2021, 03/28 (Done elsewhere), 12/21/2014, Additional history exists Depression Monitoring 08/01/2025 08/01/2024 Lipid Panel 02/24/2029 02/25/2024, 06/12/2020 DTap/Tdap Vaccines [...] as of this encounter Visit Diagnoses Diagnosis Hypomagnesemia Disorders of magnesium metabolism Screening mammogram for breast cancer documented in this encounter Care Teams Pt Skilled Relationship Specialty Start Date End Date Aj Gaston III, MD [address] [place] [address] PCP - General Family Medicine 05/12/23 documented as of this encounter
--- OUTSIDE RECORDS SUMMARY | 2024-08-19 20:43 | External Medical Summary | Summary of Care ---
Author Name Unknown Organization [facility] Address [address] [place] [address] Phone [phone] Care Team Providers Care Harbour Master Name Role Phone Marilin MICHAELS MD, Aj Westfall Primary Care Provider [phone] Reason for Visit * Reason Onset Date Comments Medication Refill 08/07/2024 Medication Pre-auth 08/07/2024 UROMAG 140 M G CAPSULE Encounter Details Date Type Department Care Team (Late st Contact Info) Description 08/07/2024 Refill Family Practice [facility] [address] [place] [address] Aj Gaston III, MD [address] [place] [address] Hypomagnesemia Allergies Active Allergy Reactions Criticality Noted Date Comments Nickel Rash 06/01/2018 documented as of this encounter (statuses as of 08/07/2024) Medications Acetaminophen 500 MG Oral Tablet Take 1 Tablet by mouth every 6 hours as needed. Active Thiamine HCl 100 MG Oral Tablet Take 1 Tablet by mouth in the morning. 3 Active valACYclovir HCl 1 GM Oral Tablet (Valtrex) TAKE 1 TABLET BY MOUTH IN THE MORNING AND 1 TAB BEFORE BEDTIME FOR 7 DAYS 14 Tablet 1 4 Active LORazepam 1 MG Oral Tablet (Ativan) 1 daily as needed anxiety 5 Tablet 4 Active Cyclobenzaprine HCl 5 MG Oral Tablet (Flexeril) Take 1 Tablet by mouth 3 times a day as needed for Muscle spasms. 30 Tablet 1 4 Active Topiramate 100 MG Oral Tablet (topAMAX) Take 1 Tablet by mouth in the morning and 1 Tablet at noon and 1 Tablet before bedtime. 100 Tablet 3 4 Active Topiramate 25 MG Oral Tablet (topAMAX) Take 1 Tablet by mouth in the morning and 1 Tablet before bedtime. 60 Tablet 6 4 Active hydrOXYzine Pamoate 100 MG Oral Capsule Take 1 Tablet by mouth 4 times a day as needed for Anxiety. 120 Capsule 5 4 Active Torsemide 10 MG Oral Tablet (Demadex)Indica tions:Pedal edema Take 1 Tablet by mouth in the morning. 30 Tablet 1 4 Active Sertraline HCl 50 MG Oral Tablet (Zoloft) Take 2 Tablets by mouth in the morning. 60 Tablet 3 4 Active Amitriptyline HCl 50 MG Oral Tablet (Elavil) Take 2.5 Tablets by mouth at bedtime. 75 Tablet 3 4 Active Gabapentin 300 MG Oral Capsule (Neurontin) Take 1 Capsule by mouth in the morning and 1 Capsule at noon and 1 Capsule before bedtime. 3x daily. 270 Capsule 3 4 Active valACYclovir HCl 1 GM Oral Tablet (Valtrex)Indica tions:HSV-1 infection Take 1 Tablet by mouth in the morning and 1 Tablet at noon and 1 Tablet before bedtime. For 7 days for shingles. 21 Tablet 4 Active Magnesium Oxide 140 MG Oral CapsuleIndicati ons:Hypomagnese tiffany Take 3 Capsules by mouth in the morning and 3 Capsules before bedtime. 180 Capsule 4 09/06/20 24 Active Potassium Chloride ER 10 MEQ Oral Capsule Extended Release Take 2 Capsules by mouth in the morning. 60 Capsule 4 09/06/20 24 Active Magnesium Oxide 400 MG Oral Tablet Take 1 Tablet by mouth in the morning and 1 Tablet before bedtime. 4 08/07/20 24 Discontinu ed(Refill) documented as of this encounter (statuses as [...] No 08/01/2024 Does the household have a [facility] source [facility] income? (Household - for ages [...] as of this encounter Miscellaneous Notes * Addendum Note - Kenton Giang RPh - 08/07/2024 2:14 PM ESTAddended by: KENTON GIANG on: 08/07/2024 02:14 PM Modules accepted: Orders * Telephone Encounter - Kenton Giang RPh - 08/07/2024 1:53 PM EST Max ox 400mg tabs preferred on plan Please approve if appropriate and route back to me so that patient can be notified. Pending Prescriptions: Disp Refills Magnesium Oxide 400 MG Oral Tablet 180 Ta*1 Sig: Take 1 Tablet by mouth in the morning and 1 Tablet before bedtime. Thank you, Kenton Giang PharmD Clinical Pharmacist [facility] ([facility]) 08/07/24 1:56 PM [phone] * Telephone Encounter - Micky Alvarez CPhT - 08/07/2024 1:42 PM EST Patients insurance would like to inform the office that UROMAG 140 MG CAPSULE is denied because excluded from coverage. They will fax this info to the office, please review and resubmit if appropriate. Thank you, Edvin Alvarez ([facility]) Inserting Machine Operator III [facility] ([facility]) 08/07/2024, 1:42 PM * Telephone Encounter - Deborah De Anda [facility] - 08/07/2024 1:35 PM EST Released to pharmacy Thank you, Deborah De Anda [facility] Clinical Pharmacist Centralized Clinical Pharmacy Services ([facility]) 08/07/24 1:35 PM [phone] * Telephone Encounter - Shanon Gray teletypewriter operator - 08/07/2024 1:23 PM EST Please [...] Description 08/17/2024 3:45 PM EST Imaging Radiology [facility] 1st [facility] [address] [facility] [place] [address] 08/21/2024 1:20 PM EST Office Visit General Internal Medicine [facility] 200 [facility] [place] [address] Jolynn [facility]ilar MD 200 [facility] [address] Health Maintenance Due Date Last Done Comments Hepatitis B Vaccine (1 of 3 - 19+ 3-dose series) 2001 HPV/Co-Test 2012 COVID-19 Vaccine ( season) 2024 09/23/2022 Influenza Vaccine (FLU shot) (#1) 2024 Mammogram 06/28/2024 06/28/2023, 06/21/2023 Cervical Cancer Screening 08/27/2024 Pap Smear 08/27/2024 08/27/2021, 0701/2018 (Done elsewhere), 12/21/2014, Additional history exists Depression [...] cancer documented in this encounter Care Teams Harbour Master Relationship Specialty Start Date End Date Aj Gaston III, MD [address] [place] [address] PCP - General Family Medicine 05/12/23 documented as of this encounter
--- OUTSIDE RECORDS SUMMARY | 2024-08-19 20:43 | External Medical Summary | Summary of Care ---
Author Name Unknown Organization [facility] Address [address] [place] [address] Phone [phone] Care Team Providers Care Cloak Room Attendant Name Role Phone Marilin MICHAELS MD, Aj Westfall Primary Care Provider [phone] Reason for Visit * Reason Onset Date Comments Medication Refill 08/07/2024 Medication Pre-auth 08/07/2024 UROMAG 140 M G CAPSULE Encounter Details Date Type Department Care Team (Late st Contact Info) Description 08/07/2024 Telephone Family Practice [facility] [address] [place] [address] Aj Gaston III, MD [address] [place] [address] Medication Refill; Medication Pre-auth (UR... Allergies Active [...] No 08/01/2024 Does the household have a [facility]? (Household - for [...] resubmit if appropriate. Thank you, Edvin Alvarez ([facility]) Transit Manager III [facility] ([facility]) 08/07/2024, 1:42 PM * Telephone Encounter - Deborah De Anda [facility] - 08/07/2024 1:35 PM EST Released to pharmacy Thank you, Deborah De Anda [facility] Clinical Pharmacist [facility] ([facility]) 08/07/24 1:35 PM [phone] * Telephone Encounter - Shanon Gray special effects designer - 08/07/2024 1:23 PM EST Please reroute [...] Description 08/17/2024 3:45 PM EST Imaging Radiology [facility] 1st [facility] [address] [place] [address] 08/21/2024 1:20 PM EST Office Visit General Internal Medicine [facility] [address] [place] [address] Jolynn Aguilar MD 200 [facility] [place] [address] Health Maintenance Due Date Last Done Comments [...] cancer documented in this encounter Care Teams Cloak Room Attendant Relationship Specialty Start Date End Date Aj Gaston III, MD [address] [place] [address] PCP - General Family Medicine 05/12/23 documented as of this encounter
--- OUTSIDE RECORDS SUMMARY | 2024-08-19 20:43 | External Medical Summary | Summary of Care ---
Author Name Unknown Organization [facility] Address [address] [place] [address] Phone [phone] Care Team Providers Care Bath Steward/Stewardess Name Role Phone Marilin MICHAELS MD, Gumaro Westfall Primary Care Provider [phone] Reason for Visit * Reason Onset Date Comments Medication Refill 08/07/2024 Medication Pre-auth 08/07/2024 UROMAG 140 M G CAPSULE Encounter Details Date Type Department Care Team (Late st Contact Info) Description 08/07/2024 Refill Family Practice [facility] [address] [place] [address] Gumaro Rodriguez III, MD [address] [place] [address] Hypomagnesemia Allergies Active Allergy Reactions Criticality Noted Date Comments Nickel Rash 06/01/2018 documented as of this encounter (statuses as of 08/08/2024) Medications Acetaminophen 500 MG Oral Tablet Take [...] days for shingles. 21 Tablet 4 Active Potassium Chloride ER 10 MEQ Oral Capsule Extended Release Take 2 Capsules by mouth in the morning. 60 Capsule 4 09/06/20 24 Active Magnesium Oxide 400 MG Oral TabletIndicatio ns:Hypomagnesem ia Take 1 Tablet by mouth in the morning and 1 Tablet before bedtime. 180 Tablet 1 4 Active Magnesium Oxide 400 MG Oral Tablet Take 1 Tablet by mouth in the morning and 1 Tablet before bedtime. 4 08/07/20 24 Discontinu ed(Refill) Magnesium Oxide 140 MG Oral CapsuleIndicati ons:Hypomagnese tiffany Take 3 Capsules by mouth in the morning and 3 Capsules before bedtime. 180 Capsule 4 08/07/20 24 Discontinu ed(Refill) documented as of this encounter (statuses as of 08/08/2024) Active Problems Problem Noted Date Diagnosed Date Major depressive disorder, recurrent episode, mo derate 11/15/2018 Depression with anxiety 10/19/2016 Malaise and fatigue 08/18/2010 Tobacco use disorder 11/02/2007 Elevated liver enzymes Migraine Insomnia documented as of this encounter (statuses as of 08/08/2024) Resolved Problems Problem Noted Date Diagnosed Date Resolved Date Alcohol abuse, in remission 04/24/2023 04/24/2023 Routine medical exam 08/18/2010 018 documented as of this encounter (statuses as of 08/08/2024) Immunizations Name Administration Dates Next Due Covid-19, [...] No 08/01/2024 Does the household have a re gular [...] Encounter - Gumaro Rodriguez III, MD - 08/08/2024 8:09 AM ESTSigned Prescriptions: Disp Refills Magnesium Oxide 400 MG Oral Tablet 180 Ta*1 Sig: Take 1 Tablet by mouth in the morning and 1 Tablet before bedtime.Authorizing Provider: GUMARO RODRIGUEZ III * Addendum Note - Gumaro Rodriguez III, MD - 08/08/2024 8:09 AM ESTAddended by: GUMARO RODRIGUEZ on: 08/08/2024 08:09 AM Modules accepted: Orders * Addendum Note - Riya Giang [facility] - 08/07/2024 2:14 PM ESTAddended by: RIYA GIANG on: 08/07/2024 02:14 PM Modules accepted: Orders * Telephone Encounter - Riya Giang [facility] - 08/07/2024 1:53 PM EST Max ox 400mg tabs preferred on plan Please approve if appropriate and route back to me so that patient can be notified. Pending Prescriptions: Disp Refills Magnesium Oxide 400 MG Oral Tablet 180 Ta*1 Sig: Take 1 Tablet by mouth in the morning and 1 Tablet before bedtime. Thank you, Riya Giang, PharmD Clinical Pharmacist [facility] ([facility]) 08/07/24 1:56 PM [phone] * Telephone Encounter - Micky Alvarez CPhT - 08/07/2024 1:42 PM EST Patients insurance would like to inform the office that UROMAG 140 MG CAPSULE is denied because excluded from coverage. They will fax this info to the office, please review and resubmit if appropriate. Thank you, Edvin Alvarez ([facility]) Real Estate Sales Agent III [facility] ([facility]) 08/07/2024, 1:42 PM * Telephone Encounter - Deborah De Anda RPh - 08/07/2024 1:35 PM EST Released to pharmacy Thank you, Deborah De Anda [facility] Clinical Pharmacist [facility] ([facility]) 08/07/24 1:35 PM [phone] * Telephone Encounter - Shanon Gray, smoke inspector - 08/07/2024 1:23 PM EST Please reroute [...] Description 08/17/2024 3:45 PM EST Imaging Radiology [facility] 1st [facility] [address] [place] [address] 08/21/2024 1:20 PM EST Office Visit General Internal Medicine [facility] [place] [address] Jolynn Aguilar MD 200 [facility] [place] [address] Health Maintenance Due Date Last Done Comments [...] cancer documented in this encounter Care Teams Bath Steward/Stewardess Relationship Specialty Start Date End Date Gumaro Rodriguez III, MD [address] [facility] [place] [address] PCP - General Family Medicine 05/12/23 documented as of this encounter
--- OUTSIDE RECORDS SUMMARY | 2024-08-19 20:43 | External Medical Summary | Summary of Care ---
Author Name Unknown Organization [facility] Address [address] [place] [address] Phone [phone] Care Team Providers Care Talent Development Consultant Name Role Phone Marilin MICHAELS MD, Aj Westfall Primary Care Provider [phone] Reason for Visit * Reason Onset Date Comments Appointment 08/02/2024 Encounter Details Date Type Department Care Team (Late st Contact Info) Description 08/02/2024 Telephone Family Practice [facility] [address] [place] [address] Aj Gaston III, MD 200 [place] [address] Appointment Allergies Active Allergy Reactions Criticality Noted Date Comments Nickel Rash 06/01/2018 documented as of this encounter (statuses as of 08/17/2024) Medications Acetaminophen 500 MG Oral Tablet Take [...] 4 Active Magnesium Oxide 140 MG Oral Capsule 400 mg. 4 08/07/20 24 Discontinu ed(Refill) documented as of this encounter (statuses as of 08/17/2024) Active Problems Problem Noted Date Diagnosed Date Major depressive disorder, recurrent episode, mo derate 11/15/2018 Depression with anxiety 10/19/2016 Malaise and fatigue 08/18/2010 Tobacco use disorder 11/02/2007 Elevated liver enzymes Migraine Insomnia documented as of this encounter (statuses as of 08/17/2024) Resolved Problems Problem Noted Date Diagnosed Date Resolved Date Alcohol abuse, in remission 04/24/2023 04/24/2023 Routine medical exam 08/18/201005/09/ 018 documented as of this encounter (statuses as of 08/17/2024) Immunizations Name Administration Dates Next Due Covid-19, [...] 08/01/2024 Does the household have a re lar source of income? (Household - for ages [...] encounter Miscellaneous Notes * Telephone Encounter - Kati Quinn OSA - 08/17/2024 8:48 AM EST Patient is scheduled with PCP on 08/21/24. * Telephone Encounter - Nicole Encarnacion LPN - 08/03/2024 2:33 PM EST Unsure who called pt - scheduling - did you call? * Telephone Encounter - Shaina Ingram OSA - 08/02/2024 11:34 AM EST Pt states she was called by clinic today that a sooner appt is available and told to call back. documented in this encounter Plan of Treatment Upcoming Encounters Date Type Department Care Team (Late st Contact Info) Description 08/21/2024 1:20 PM EST Office Visit General Internal Medicine [facility] 200 [facility] [place] [address] Jolynn Aguilar MD 200 [facility] [place] [address] 08/21/2024 3:45 PM EST Imaging Radiology [facility]st [facility] [address] [place] [address] Health Maintenance Due Date Last Done Comments [...] filedocumented as of this encounter Care Teams Talent Development Consultant Relationship Specialty Start Date End Date Aj Gaston III, MD 200 [place] [address] PCP - General Family Medicine 05/12/23 documented as of this encounter
--- OUTSIDE RECORDS SUMMARY | 2024-08-19 20:43 | External Medical Summary | Summary of Care ---
Author Name Unknown Organization [facility] Address [address] [place] [address] Phone [phone] Care Team Providers Care Core Piler Name Role Phone Marilin MICHAELS MD, John E Primary Care Provider [phone] Reason for Referral * Medication Prior Authorization - Pending Review Specialty Diagnoses / Procedures Referred By Melissa peace Referred To Contact Diagnoses Hypomagnesemia Gumaro Rodriguez III, MD 200 [facility] [place] [address] Phone: tel: fax: Referral ID Status Reason Start Date Expiration Date V isits Requested Visits Authorized [id number] Pending Review [id number] Reason for Visit * Reason Onset Date Comments Medication Refill 08/03/2024 Encounter Details Date Type Department Care Team (Late st Contact Info) Description 08/03/2024 Refill Family Practice [facility] [place] [address] [facility] [place] [address] Gumaro Rodriguez III, MD 200 [facility] [place] [id number] Hypomagnesemia* Allergies Active Allergy Reactions Criticality Noted Date [...] shingles. 21 Tablet 4 Active Magnesium Oxide 400 MG Oral Tablet Take 1 Tablet by mouth in the morning and 1 Tablet before bedtime. 4 Active Magnesium Oxide 140 MG Oral CapsuleIndicati ons:Hypomagnese tiffany Take 3 Capsules by mouth in the morning and 3 Capsules before bedtime. 180 Capsule 4 09/06/20 Active Potassium Chloride ER 10 MEQ Oral Capsule Extended Release Take 2 Capsules by mouth in the morning. 60 Capsule 4 09/06/20 24 Active Magnesium Oxide 140 MG Oral Capsule 400 mg. 4 08/07/20 Discontinu ed(Refill) Potassium Chloride ER 10 MEQ Oral Capsule Extended Release Take 2 Capsules by mouth in the morning. 4 08/07/20 24 Discontinu ed(Refill) documented as [...] Encounter - Gumaro Rodriguez III, MD - 08/07/2024 11:56 AM ESTSigned Prescriptions: Disp Refills Magnesium Oxide 400 MG Oral Tablet Sig: Take 1 Tablet by mouth in the morning and 1 Tablet before bedtime.Authorizing Provider: HISTORY PER PATIENTOrdering User: TERRI RAMOS Magnesium Oxide 140 MG Oral Capsule 180 Ca*0 Sig: Take 3 Capsules by mouth in the morning and 3 Capsules before bedtime.Authorizing Provider: GUMARO STERN Potassium Chloride ER 10 MEQ Oral Capsule *60 Cap*0 Sig: Take 2 Capsules by mouth in the morning.Authorizing Provider: GUMARO RODRIGUEZ III * Addendum Note - Gumaro Rodriguez III, MD - 08/07/2024 11:56 AM ESTAddended by: GUMARO RODRIGUEZ on: 08/07/2024 11:56 AM Modules accepted: Orders * Telephone Encounter - Shanon Gray, framing mechanic - 08/07/2024 9:32 AM EST Pt can not find Magnesium Oxide 140 MG Oral Capsule She can not find this pt needs a new rx please Thank you for your assistance Shanon Gray Digital Solutions Architect II [facility] ([facility]) 08/07/2024,9:34 AM * Addendum Note - Terri Ramos LPN - 08/07/2024 9:28 AM ESTAddended by: TERRI RAMOS on: 08/07/2024 09:28 AM Modules accepted: Orders * Telephone Encounter - Terri Ramos LPN - 08/07/2024 9:23 AM EST Patient needs to know if should continue Magnesium oxide and potassium since hosp d/c. Needs scripts sent if so. Pended orders. There are multiple TE on this and about anxiety. Please advise. Escalation email sent as well. Please check strength and doses that are pended based on what you want patient to continue to take. * Telephone Encounter - Nadege Hughes MD - 08/05/2024 12:43 PM EST Magnesium oxide is OTC Easily to get it 400 mg to take daily until pt's PCP answers after wknd Usually use to decrease /prevent pancreatitis inflammation * Telephone Encounter - Holley Ospina OSA - 08/04/2024 5:15 PM EST Patient calling in to check on the status of previous message. Patient Called after 24 hour timeframe (high priority TE) and escalation e-mail was sent to clinic leadership. pt was discharged with medication, but not given refills, needs scripts placed for Magnesium andpotassium high dose due to acute pancreatitis. * Telephone Encounter - Sandra Barragan LPN - 08/04/2024 3:23 PM EST Pt had hospital follow up on 08/[address] encarnacion. She had labs done. Medication was not ordered at that time. Please advise if you wish to continue this therapy * Telephone Encounter - Yoselyn Carey OSA - 08/03/2024 4:57 PM EST Patient calling in to check on the status of previous message. Patient Called within 48 hour timeframe. Reminded patient of 48 hour turn-around time. * Telephone Encounter - Sherri Garcia PHARM Tech - 08/03/2024 4:42 PM EST Pt asking high priority due to running out. Patient calling requesting refills for Magnesium oxide 140 mg . Upon chart review, medication was last prescribed by hospital. Pt did schedule a hospital follow up visit. Please advise if you wish tocontinue this therapy for the patient. Thank you, Sherri Garcia CPhT Joint [employer] II [facility] ([facility]) 08/03/2024,4:42 PM documented in this encounter Plan of Treatment Upcoming Encounters Date Type Department Care Team (Late st Contact Info) Description 08/17/2024 3:45 PM EST Imaging Radiology [facility] 1st [facility] [place] [address] [facility] [place] [address] 08/21/2024 1:20 PM EST Office Visit General Internal Medicine [facility] [place] [address] [place] [address] Jolynn Aguilar MD [address] [place] [address] Health Maintenance Due Date Last Done Comments [...] as of this encounter Visit Diagnoses Diagnosis Hypomagnesemia- Primary Disorders of magnesium metabolism Screening mammogram for breast cancer documented in this encounter Care Teams Core Piler Relationship Specialty Start Date End Date Gumaro Rodriguez III, MD 200 [facility] [place] [address] PCP - General Family Medicine 05/12/23 documented as of this encounter
--- OUTSIDE RECORDS SUMMARY | 2024-08-19 20:43 | External Medical Summary | Summary of Care ---
Author Name Unknown Organization [facility] Address [address] [place] [address] Phone [phone] Care Team Providers Care Financial Services Technician Name Role Phone Marilin MICHAELS MD, Gumaro Westfall Primary Care Provider [phone] Reason for Visit * Reason Onset Date Comments Medication Refill 08/11/2024 Encounter Details Date Type Department Care Team (Late st Contact Info) Description 08/11/2024 Refill Family Practice [facility] 200 [facility] [place] [address] Gumaro Rodriguez III, MD 200 [place] [address] Pedal edema Allergies Active Allergy Reactions Criticality Noted Date Comments Nickel Rash 06/01/2018 documented as of this encounter (statuses as of 08/18/2024) Medications Acetaminophen 500 MG Oral Tablet Take [...] for Anxiety. 120 Capsule 5 4 Active Sertraline HCl 50 MG Oral [...] before bedtime. 180 Tablet 1 4 Active Torsemide 10 MG Oral Tablet (Demadex)Indica tions:Pedal edema Take 1 Tablet by mouth in the morning. 90 Tablet 3 4 Active Torsemide 10 MG Oral Tablet (Demadex)Indica tions:Pedal edema Take 1 Tablet by mouth in the morning. 30 Tablet 1 4 08/11/20 24 Discontinu ed(Refill) documented as of this encounter (statuses as of 08/18/2024) Active Problems Problem Noted Date Diagnosed Date Major depressive disorder, recurrent episode, mo derate 11/15/2018 Depression with anxiety 10/19/2016 Malaise and fatigue 08/18/2010 Tobacco use disorder 11/02/2007 Elevated liver enzymes Migraine Insomnia documented as of this encounter (statuses as of 08/18/2024) Resolved Problems Problem Noted Date Diagnosed Date Resolved Date Alcohol abuse, in remission 04/24/2023 04/24/2023 Routine medical exam 08/18/2010 018 documented as of this encounter (statuses as of 08/18/2024) Immunizations Name Administration Dates Next Due Covid-19, [...] Encounter - Gumaro Rodriguez III, MD - 08/18/2024 7:59 AM ESTSigned Prescriptions: Disp Refills Torsemide 10 MG Oral Tablet (Demadex) 90 Tab*3 Sig: Take 1 Tablet by mouth in the morning.Authorizing Provider: GUMARO RODRIGUEZ III * Telephone Encounter - Janell Ag LPN - 08/17/2024 7:13 PM ESTPending Prescriptions: Disp Refills Torsemide 10 MG Oral Tablet (Demadex) 90 Tab*3 Sig: Take 1 Tablet by mouth in the morning. * Telephone Encounter - Stephania Myles OSA - 08/11/2024 8:40 AM EST 90 day request * Telephone Encounter - Stephania Myles OSA - 08/11/2024 8:39 AM EST Did you pend patient's preferred pharmacy and medication before forwarding?yes Pharmacy: [id number] [facility] Pending Prescriptions: Disp Refills Torsemide 10 MG Oral Tablet (Demadex) 30 Tab*1 Sig: Take 1 Tablet by mouth in the morning. Last Visit: 06/16/2024 (in office), 09/03/2021 (telemedicine) Next Visit: Visit date not found If no future appointments scheduled, and last appointment is greater than a year ago, please schedule patient for a follow-up appointment Last date the medication was ordered: Is this request for a controlled substance?No [...] PM EST Office Visit General Internal Medicine [facility] 200 [facility] [place] [address] Jolynn Aguilar MD 200 [facility] [place] [address] 08/21/2024 3:45 PM EST Imaging Radiology [address] 132 [facility] [place] [address] Health Maintenance Due Date Last Done Comments Hepatitis B Vaccine (1 of 3 - 19+ 3-dose series) 2001 HPV/Co-Test 2012 COVID-19 Vaccine ( season) 2024 09/23/2022 Influenza Vaccine (FLU shot) (#1) 2024 Mammogram 06/28/2024 06/28/2023, 06/21/2023 Cervical Cancer Screening 08/27/2024 Pap Smear 08/27/2024 08/27/2021, 07/2 01/2018 (Done elsewhere), 12/21/2014, Additional history exists Depression [...] of this encounter Visit Diagnoses Diagnosis Pedal edema Edema documented in this encounter Care Teams Financial Services Technician Relationship Specialty Start Date End Date Gumaro Rodriguez III, MD 200 [facility] [place] [address] PCP - General Family Medicine 05/12/23 documented as of this encounter
--- OUTSIDE RECORDS SUMMARY | 2024-08-19 20:43 | External Medical Summary | Summary of Care ---
Author Name Unknown Organization [facility] Address [address] [place] [address] Phone [phone] Care Team Providers Care Microsoft Access Developer Name Role Phone Marilin MICHAELS MD, Aj Westfall Primary Care Provider [phone] Reason for Visit * Reason Onset Date Comments Advice 08/02/2024 Encounter Details Date Type Department Care Team (Late st Contact Info) Description 08/02/2024 Telephone Family Practice [facility] 200 [place] [address] Aj Gaston III, MD 200 [place] [address] Advice Allergies Active Allergy Reactions Criticality Noted Date Comments Nickel Rash 06/01/2018 documented as of this encounter (statuses as of 2024) Medications Acetaminophen 500 MG Oral Tablet Take [...] as of this encounter (statuses as of 2024) Active Problems Problem Noted Date Diagnosed Date Major depressive disorder, recurrent episode, mo derate 11/15/2018 Depression with anxiety 10/19/2016 Malaise and fatigue 08/18/2010 Tobacco use disorder 11/02/2007 Elevated liver enzymes Migraine Insomnia documented as of this encounter (statuses as of 2024) Resolved Problems Problem Noted Date Diagnosed Date Resolved Date Alcohol abuse, in remission 04/24/2023 04/24/2023 Routine medical exam 08/18/2010 018 documented as of this encounter (statuses as of 2024) Immunizations Name Administration Dates Next Due Covid-19, [...] encounter Miscellaneous Notes * Telephone Encounter - Isabela Campa LPN - 2024 2:24 PM EST Patient aware and verbalized understanding, will comply. * Telephone Encounter - Nicole Encarnacion LPN - 2024 2:19 PM EST Attempted to call patient, there was no answer, left voicemail. When patient returns call, ok for PATTIE to relay message, please refer to below documentation. If needed, can transfer to dedicated nurse line. * Telephone Encounter - Ijeoma Kraus MD - 08/07/2024 9:55 PM EST We advised her to take folic acid 1 mg orally once a day along with B complex once a day which includes thiamine for the blister she she had at the office visit. * Telephone Encounter - Deneen Escalona OSA - 08/03/2024 10:46 AM EST Pt called asking what dosage of Folic Acid she is to take. No notes regarding this. * Telephone Encounter - Esther Salinas LPN - 08/02/2024 1:44 PM EST Patient called. Informed of message. Anxiety has been out of control. Not sleeping at night. Does she need to get more magnesium and potassium? She was take it for 3 days. Asking if there is anything she can do? Valacyclovir on the bottle says it is for shingles? Informed it can be used for fever blisters or cold sores. Verbalized understanding. She has a cold blister. * Telephone Encounter - Esther Salinas LPN - 08/02/2024 1:39 PM EST ----- Message from Ijeoma Kraus MD sent at 08/02/2024 12:37 PM EST ----- We recently saw patient for hospital follow up and she was admitted with acute pancreatitis and alcohol withdrawal symptoms. Please let her know that recent blood work shows stable electrolytes, kidney and liver function tests. Her lipase which is pancreatic inflammatory marker was very high while in the hospital and it ismuch better than before even though it is slightly higher than normal. Keep scheduled follow up with Dr. Aguilar and continue all the current medications. ER for any emergencies in the meantime. documented in this encounter Plan of Treatment Upcoming Encounters Date Type Department Care Team (Late st Contact Info) Description 08/17/2024 3:45 PM EST Imaging Radiology [facility] 1st [facility] [address] [place] [address] 08/21/2024 1:20 PM EST Office Visit General Internal Medicine [facility] [employer] 200 [facility] [place] [address] Jolynn Aguilar MD 200 [facility] [place] [address] Health Maintenance Due Date Last Done Comments [...] filedocumented as of this encounter Care Teams Microsoft Access Developer Relationship Specialty Start Date End Date Aj Gaston III, MD 200 [facility] [place] [address] PCP - General Family Medicine 05/12/23 documented as of this encounter
--- OUTSIDE RECORDS SUMMARY | 2024-08-19 20:43 | External Medical Summary | Summary of Care ---
Author Name Unknown Organization [facility] Address [address] [place] [address] Phone [phone] Care Team Providers Care Racket Stringer Name Role Phone Marilin MICHAELS MD, Gumaro Westfall Primary Care Provider [phone] Reason for Visit * Reason Onset Date Comments Medication Refill 08/07/2024 Medication Pre-auth 08/07/2024 UROMAG 140 M G CAPSULE Encounter Details Date Type Department Care Team (Late st Contact Info) Description 08/07/2024 Refill Family Practice [facility] 200 [place] [address] Gumaro Rodriguez III, MD 200 [place] [address] Hypomagnesemia Allergies Active Allergy Reactions Criticality Noted [...] Orders * Addendum Note - Riya Giang [facility] - 08/07/2024 2:14 PM ESTAddended by: RIYA GIANG on: 08/07/2024 02:14 PM Modules accepted: Orders * Telephone Encounter - Riya Giang [facility] - 08/07/2024 1:53 PM EST Max ox [...] Clinical Pharmacy Services ([facility]) 08/07/24 1:56 PM [phone] * Telephone Encounter - Micky Alvarez CPhT - 08/07/2024 1:42 PM EST Patients insurance would like to inform the office that UROMAG 140 MG CAPSULE is denied because excluded from coverage. They will fax this info to the office, please review and resubmit if appropriate. Thank you, Edvin Alvarez ([facility]) Train Conductor III [facility] ([facility]) 08/07/2024, 1:42 PM * Telephone Encounter - Deborah De Anda RPh - 08/07/2024 1:35 PM EST Released to pharmacy Thank you, Deborah De Anda [facility] Clinical Pharmacist [facility] ([facility]) 08/07/24 1:35 PM [phone] Electronically signed by Deborah De Anda [facility] at 08/07/2024 1:35 PM EST * Telephone Encounter - Shanon Gray, district loss prevention manager - 08/07/2024 1:23 PM EST Please reroute [...] Description 08/17/2024 3:45 PM EST Imaging Radiology [facility] 1st [facility] [address] [place] [address] 08/21/2024 1:20 PM EST Office Visit General Internal Medicine [facility] 200 [facility] [place] [place] [address] Jolynn Aguilar MD 200 [facility] [place] [address] Health Maintenance Due Date Last Done Comments [...] cancer documented in this encounter Care Teams Racket Stringer Relationship Specialty Start Date End Date Gumaro Rodriguez III, MD 200 [facility] [place] [address] PCP - General Family Medicine 05/12/23 documented as of this encounter
--- OUTSIDE RECORDS SUMMARY | 2024-08-19 20:43 | External Medical Summary | Summary of Care ---
Author Name Unknown Organization [facility] Address [address] [place] [address] Phone [phone] Care Team Providers Care Marshmallow Machine Operator Name Role Phone Marilin MICHAELS MD, Gumaro Westfall Primary Care Provider [phone] Reason for Visit * Reason Onset Date Comments Medication Refill 08/07/2024 Medication Pre-auth 08/07/2024 UROMAG 140 M G CAPSULE Encounter Details Date Type Department Care Team (Late st Contact Info) Description 08/07/2024 Refill Family Practice [facility] 200 [place] [address] Gumaro Rodriguez III, MD 200 [place] [address] Hypomagnesemia Allergies Active Allergy Reactions Criticality Noted Date Comments Nickel Rash 06/01/2018 documented as of this encounter (statuses as of 08/11/2024) Medications Acetaminophen 500 MG Oral Tablet Take [...] as of this encounter (statuses as of 08/11/2024) Active Problems Problem Noted Date Diagnosed Date Major depressive disorder, recurrent episode, mo derate 11/15/2018 Depression with anxiety 10/19/2016 Malaise and fatigue 08/18/2010 Tobacco use disorder 11/02/2007 Elevated liver enzymes Migraine Insomnia documented as of this encounter (statuses as of 08/11/2024) Resolved Problems Problem Noted Date Diagnosed Date Resolved Date Alcohol abuse, in remission 04/24/2023 04/24/2023 Routine medical exam 08/18/2010 018 documented as of this encounter (statuses as of 08/11/2024) Immunizations Name Administration Dates Next Due Covid-19, [...] Miscellaneous Notes * Telephone Encounter - Zayra Fierro, [facility] - 08/11/2024 8:26 AM EST MyG unread. Called pt to inform of Mag formulation change d/t formulary - LMOVM. When pt returns call, please transfer to the next [facility]. Thank you, Zayra Fierro PharmPaul Clinical Pharmacist [facility] Clinical Pharmacy Services ([facility]) 08/11/24 8:26 AM [phone] * Telephone Encounter - Gumaro Rodriguez III, [...] Orders * Addendum Note - Riya Giang [facility] - 08/07/2024 2:14 PM ESTAddended by: RIYA GIANG on: 08/07/2024 02:14 PM Modules accepted: Orders * Telephone Encounter - Riya Giang [facility] - 08/07/2024 1:53 PM EST Max ox 400mg tabs preferred on plan Please approve if appropriate and route back to me so that patient can be notified. Pending Prescriptions: Disp Refills Magnesium Oxide 400 MG Oral Tablet 180 Ta*1 Sig: Take 1 Tablet by mouth in the morning and 1 Tablet before bedtime. Thank you, Riya Giang, Roxanne Clinical Pharmacist [facility] Pharmacy Services ([facility]) 08/07/24 1:56 PM [phone] * Telephone Encounter - Micky Alvarez CPhT - 08/07/2024 1:42 PM EST Patients insurance would like to inform the office that UROMAG 140 MG CAPSULE is denied because excluded from coverage. They will fax this info to the office, please review and resubmit if appropriate. Thank you, Edvin Alvarez ([facility]) Oil Program Compliance Specialist III [facility] ([facility]) 08/07/2024, 1:42 PM * Telephone Encounter - Deborah D eAnda [facility] - 08/07/2024 1:35 PM EST Released to pharmacy Thank you, Deborah De Anda [facility] Clinical Pharmacist Centralized Clinical Pharmacy Services ([facility]) 08/07/24 1:35 PM [phone] * Telephone Encounter - Shanon Gray PHARM Tech - 08/07/2024 1:23 PM EST Please reroute [...] Description 08/17/2024 3:45 PM EST Imaging Radiology [address] 132 [facility] [place] [address] 08/21/2024 1:20 PM EST Office Visit General Internal Medicine [facility] 200 [facility] [place] [address] Jolynn Aguilar MD 200 [facility] [place] [address] Health Maintenance Due Date Last Done Comments Hepatitis B Vaccine (1 of 3 - 19+ 3-dose series) 2001 HPV/Co-Test 2012 COVID-19 Vaccine ( - season) 2024 09/23/2022 Influenza Vaccine (FLU [...] cancer documented in this encounter Care Teams Marshmallow Machine Operator Relationship Specialty Start Date End Date Gumaro Rodriguez III, MD 200 [place] [address] PCP - General Family Medicine 05/12/23 documented as of this encounter
--- OUTSIDE RECORDS SUMMARY | 2024-08-19 20:44 | External Medical Summary ---
Author Name Unknown Address Unknown Organization [id number]:LABORATORY [facility] - [address] [facility] [place] [facility] [address] Laboratory Report Ordering Provider Test Date Status BOOM KEBEDE 08/01/2024 15:36:47 Final Observation Date Value Abnormality Reference (Units ) Status MYCODE SPECIMEN-SST 08/01/2024 15:36:47 Freezing of extracted DNA, whole blood and/or serum. Final Performing Location LAB[facility]ATORY [facility] - [address] [facility] [address]
--- OUTSIDE RECORDS SUMMARY | 2024-08-19 20:44 | External Medical Summary | Summary of Care ---
Author Name Unknown Organization [facility] Address [address] [place] [address] Phone [phone] Care Team Providers Care Car Restorer Name Role Phone Marilin MICHAELS MD, Aj Wesftall Primary Care Provider [phone] Encounter Details Date Type Department Care Team (Late st Contact Info) Description 07/28/2024 Population Health External Data Unspecified Department Allergies Active Allergy Reactions Criticality Noted Date Comments Nickel Rash 06/01/2018 documented as of this encounter (statuses as of 07/28/2024) Medications Medication Sig Dispensed Refills Start Date [...] 06/16/2024 Active Torsemide 10 MG Oral Tablet (Demadex)Indications :Pedal edema Take 1 Tablet by mouth in [...] 3x daily. 270 Capsule 3 06/20/2024 Active documented as of this encounter (statuses as of 07/28/2024) Active Problems Problem Noted Date Diagnosed Date Major depressive disorder, recurrent episode, mo derate 11/15/2018 Depression with anxiety 10/19/2016 Malaise and fatigue 08/18/2010 Tobacco use disorder 11/02/2007 Elevated liver enzymes Migraine Insomnia documented as of this encounter (statuses as of 07/28/2024) Resolved Problems Problem Noted Date Diagnosed Date Resolved Date Alcohol abuse, in remission 04/24/2023 04/24/2023 Routine medical exam 08/18/2010 018 documented as of this encounter (statuses as of 07/28/2024) Immunizations Name Administration Dates Next Due Covid-19, [...] y our heating, water, or electric bill? (Adult - for ages 18 years and over) Not on file 07/13/2024 Is your family able to pay t he heat, water, or electric bill? (Household - for ages 0-17 years) Not on file 07/13/2024 Does your family have access to good internet? (Household - for ages 0-17 years) Not on file 07/13/2024 Employment Status Answer Date Recorded Are you unemployed or without regular income? Ye s 07/13/2023 Does the household have a re gular source of income? (Household - for ages 0-17 years) Not on file 07/13/2023 Social Connections Answer Date Recorded How often do you feel lonely or isolated from those around you? (Adult - for ages 18 years and over) Not on file 07/13/2024 Financial Resource Strain Answer Date R ecorded [...] as of this encounter Plan of Treatment Health Maintenance [...] as of this encounter Care Teams Car Restorer Relationship Specialty Start Date End Date Marilin MICHAELS, Aj Westfall MD [address] [place] [address] PCP - General Family Medicine 05/12/23 documented as of this encounter
--- OUTSIDE RECORDS SUMMARY | 2024-08-19 20:44 | External Medical Summary ---
Author Name Unknown Address Unknown Organization [id number]:LABORATORY [facility] - [address] [facility] [address] [facility] [address] Laboratory Report Ordering Provider Test Date Status BOOM KEBEDE 08/01/2024 15:36:47 Final Observation Date Value Abnormality Reference (Units ) Status [employer] SPECIMEN-LAV 08/01/2024 15:36:47 Freezing of extracted DNA, whole blood and/or serum. Final Performing Location LABORATORY [facility] - [address] [facility] [address]
--- OUTSIDE RECORDS SUMMARY | 2024-08-19 20:44 | External Medical Summary | Summary of Care ---
Author Name Unknown Organization [facility] Address [address] [place] [address] Phone [phone] Care Team Providers Care Urgent Care Name Role Phone Marilin MICHAELS MD, Aj Westfall Primary Care Provider [phone] Reason for Visit * Reason Onset Date Comments Medication Refill 08/03/2024 Encounter Details Date Type Department Care Team (Late st Contact Info) Description 08/03/2024 Telephone Family Practice [facility] 200 [facility] [place] [address] Aj Gaston III, MD 200 [place] [address] Medication Refill Allergies Active Allergy Reactions Criticality Noted Date Comments Nickel Rash 06/01/2018 documented as of this encounter (statuses as of 08/04/2024) Medications Acetaminophen 500 MG Oral Tablet Take [...] 3x daily. 270 Capsule 3 06/20/2024 Active Magnesium Oxide 140 MG Oral Capsule 400 mg. 07/28/2024 Active valACYclovir HCl 1 GM Oral Tablet (Valtrex)Indica tions:HSV-1 infection Take 1 Tablet by mouth in the morning and 1 Tablet at noon and 1 Tablet before bedtime. For 7 days for shingles. 21 Tablet 08/01/2024 Active documented as of this encounter (statuses as of 08/04/2024) Active Problems Problem Noted Date Diagnosed Date Major depressive disorder, recurrent episode, mo derate 11/15/2018 Depression with anxiety 10/19/2016 Malaise and fatigue 08/18/2010 Tobacco use disorder 11/02/2007 Elevated liver enzymes Migraine Insomnia documented as of this encounter (statuses as of 08/04/2024) Resolved Problems Problem Noted Date Diagnosed Date Resolved Date Alcohol abuse, in remission 04/24/2023 04/24/2023 Routine medical exam 08/18/2010 018 documented as of this encounter (statuses as of 08/04/2024) Immunizations Name Administration Dates Next Due Covid-19, [...] No 08/01/2024 Does the household have a presbyterian kaseman hospitallar source of income? (Household - for [...] encounter Miscellaneous Notes * Telephone Encounter - Holley Ospina OSA [...] for the patient. Thank you, Sherri Garcia [facility] Automotive Buyer II Centralized [facility] Pharmacy Services ([facility]) 08/03/2024,4:42 PM documented in this encounter Plan of Treatment Upcoming Encounters Date Type Department Care Team (Late st Contact Info) Description 08/17/2024 3:45 PM EST Imaging Radiology [address], [place] 132 [facility] [place] [address] 08/21/2024 1:20 PM EST Office Visit General Internal Medicine [facility] [place] [address] [place], [place] [address] Jolynn Aguilar MD 200 [facility] [place] [address] Health Maintenance Due Date Last Done Comments [...] filedocumented as of this encounter Care Teams Urgent Care Relationship Specialty Start Date End Date Aj Gaston III, MD [address] [place] [address] PCP - General Family Medicine 05/12/23 documented as of this encounter
--- OUTSIDE RECORDS SUMMARY | 2024-08-19 20:44 | External Medical Summary ---
Author Name Unknown Address Unknown Organization K01:LAB[facility]ORY [facility] - [address] [facility] [address] Laboratory Report Ordering Provider Test Date Status DEVI GARCIA 08/01/2024 15:36:47 Final Observation Date Value Abnormality Reference (Units ) Status BUN 08/01/2024 15:36:47 11 6-20 (mg/dL) Final Creatinine 08/01/2024 15:36:47 0.9 0.5-1.0 (mg/dL) Final Glomerular filtration rate/1.73 sq M.predicted [Volume Rate/Area] in Serum, Plasma or Blood by Creatinine-based formula (CKD-EPI) 08/01/2024 15:36:47 87 >=60 (mL/min) Final eGFR is calculated based on the CKD-EPI 2020 equation. Sodium 08/01/2024 15:36:47 136 135-146 (m mol/L) Final Potassium 08/01/2024 15:36:47 4.2 3.5-5.1 (m mol/L) Final Cl 08/01/2024 15:36:47 100 98-107 (mm ol/L) Final CO2 08/01/2024 15:36:47 24 22-32 (mmo l/L) Final Anion gap 08/01/2024 15:36:47 12 7-15 (mmol /L) Final Glucose 08/01/2024 15:36:47 90 70-120 (mg /dL) Final Albumin 08/01/2024 15:36:47 4.0 3.8-5.0 (g /dL) Final AST (Aspartate aminotransferase) 08/01/2024 15:36:47 37 Above high normal 10-35 (U/L) Final Alk Phos 08/01/2024 15:36:47 72 35-130 (U/ L) Final Bilirubin, Total 08/01/2024 15:36:47 0.2 <=1 .2 (mg/dL) Final Calcium 08/01/2024 15:36:47 9.4 8.4-10.2 ( mg/dL) Final Protein 08/01/2024 15:36:47 6.5 6.0-8.3 (g /dL) Final ALT (Alanine aminotransferase) 08/01/2024 15:36:47 27 10-35 (U/L) Macho ma Performing Location LABOR[facility]ORY [facility] - [facility] [address] [facility] [address]
--- OUTSIDE RECORDS SUMMARY | 2024-08-19 20:44 | External Medical Summary | Summary of Care ---
Author Name Unknown Organization [facility] Address [address] [place] [address] Phone [phone] Care Team Providers Care Cripple Cutter Name Role Phone Marilin MICHAELS MD, Aj Westfall Primary Care Provider [phone] Reason for Visit * Reason Onset Date Comments Medication Refill 08/03/2024 Encounter Details Date Type Department Care Team (Late st Contact Info) Description 08/03/2024 Telephone Family Practice [facility] 200 [facility] [place] [facility] [place] [address] Aj Gaston III, MD [address] [place] [address] Medication Refill Allergies Active Allergy Reactions Criticality Noted Date Comments Nickel Rash 06/01/2018 documented as of this encounter (statuses as of 08/06/2024) Medications Acetaminophen 500 MG Oral Tablet Take [...] as of this encounter (statuses as of 08/06/2024) Active Problems Problem Noted Date Diagnosed Date Major depressive disorder, recurrent episode, mo derate 11/15/2018 Depression with anxiety 10/19/2016 Malaise and fatigue 08/18/2010 Tobacco use disorder 11/02/2007 Elevated liver enzymes Migraine Insomnia documented as of this encounter (statuses as of 08/06/2024) Resolved Problems Problem Noted Date Diagnosed Date Resolved Date Alcohol abuse, in remission 04/24/2023 04/24/2023 Routine medical exam 08/18/201005/09/ 018 documented as of this encounter (statuses as of 08/06/2024) Immunizations Name Administration Dates Next Due Covid-19, [...] No 08/01/2024 Does the household have a [facility] source of income? (Household - [...] encounter Miscellaneous Notes * Telephone Encounter - Nadege Hughes MD [...] the patient. Thank you, Sherri Garcia CPhT Hand Router Operator II [facility] ([facility]) 08/03/2024,4:42 PM documented in this encounter Plan of Treatment Upcoming Encounters Date Type Department Care Team (Late st Contact Info) Description 08/17/2024 3:45 PM EST Imaging Radiology [facility] [place] [address] [facility] [place] [address] 08/21/2024 1:20 PM EST Office Visit General Internal Medicine Kayy Banegas [place] 200 [facility] [address] Jolynn Aguilar MD 200 [facility] [place] [address] Health Maintenance Due Date Last Done Comments Hepatitis B Vaccine (1 of 3 - 19+ 3-dose series) 2001 HPV/Co-Test 2012 COVID-19 Vaccine (2 - 2023- season) 2024 09/23/2022 Influenza Vaccine (FLU shot) [...] filedocumented as of this encounter Care Teams Cripple Cutter Relationship Specialty Start Date End Date Aj Gaston III, MD 200 [place] [address] PCP - General Family Medicine 05/12/23 documented as of this encounter
--- OUTSIDE RECORDS SUMMARY | 2024-08-19 20:44 | External Medical Summary | Summary of Care ---
Author Name Unknown Organization [facility] Address [address] [place] [address] Phone [phone] Care Team Providers Care Oven Technician Name Role Phone Marilin MICHAELS MD, John E Primary Care Provider [phone] Reason for Visit * Reason Onset Date Comments Medication Refill 08/03/2024 Encounter Details Date Type Department Care Team (Late st Contact Info) Description 08/03/2024 Telephone Family Practice [facility] 200 [place] [address] Aj Gaston III, MD [address] [place] [address] Medication Refill Allergies Active Allergy Reactions Criticality Noted Date Comments Nickel Rash 06/01/2018 documented as of this encounter (statuses as of 08/03/2024) Medications Medication Sig Dispensed Refills Start Date [...] Active valACYclovir HCl 1 GM Oral Tablet (Valtrex)Indications :HSV-1 infection Take 1 Tablet by mouth in the morning and 1 Tablet at noon and 1 Tablet before bedtime. For 7 days for shingles. 21 Tablet 08/01/2024 Active documented as of this encounter (statuses as of 08/03/2024) Active Problems Problem Noted Date Diagnosed Date Major depressive disorder, recurrent episode, mo derate 11/15/2018 Depression with anxiety 10/19/2016 Malaise and fatigue 08/18/2010 Tobacco use disorder 11/02/2007 Elevated liver enzymes Migraine Insomnia documented as of this encounter (statuses as of 08/03/2024) Resolved Problems Problem Noted Date Diagnosed Date Resolved Date Alcohol abuse, in remission 04/24/2023 04/24/2023 Routine medical exam 08/18/2010 08// 018 documented as of this encounter (statuses as of 08/03/2024) Immunizations Name Administration Dates Next Due Covid-19, [...] ages 0-17 years) Not on file 08/01/2024 Sex and Gender Information Value Date Recorded Sex Assigned at Not on file Gender Identity Not on file Sexual Orientation Not on file Job Start Date Occupation Industry Not on file Not on file Not on file documented as of this encounter Miscellaneous Notes * Telephone Encounter - Yoselyn Carey OSA [...] the patient. Thank you, Sherri Garcia CPhT Painter Airbrush II [facility] ([facility]) 08/03/2024,4:42 PM documented in this encounter Plan of Treatment Upcoming Encounters Date Type Department Care Team (Late st Contact Info) Description 08/17/2024 3:45 PM EST Imaging Radiology [address] [place] [address] 08/21/2024 1:20 PM EST Office Visit General Internal Medicine [facility] Makenzie [place] [address] [place] [address] Jolynn Aguilar MD 200 [facility] [place] [address] Health Maintenance Due Date Last Done Comments [...] filedocumented as of this encounter Care Teams Oven Technician Relationship Specialty Start Date End Date Marilin IIIAj MD 200 [facility] [place] [address] PCP - General Family Medicine 05/12/23 documented as of this encounter
--- OUTSIDE RECORDS SUMMARY | 2024-08-19 20:44 | External Medical Summary | Summary of Care ---
Author Name Unknown Organization [facility] Address [address] [place] [address] Phone [phone] Care Team Providers Care Alarm Adjuster Name Role Phone Marilin MICHAELS MD, Aj Westfall Primary Care Provider [phone] Reason for Visit * Reason Onset Date Comments Acute Hospital Follow-Up Hospital Follow-Up 08/01/2024 Encounter Details Date Type Department Care Team (Late st Contact Info) Description 08/01/2024 2:00 PM EST Office Visit General Internal Medicine [facility] [address] [place] [address] Jose Kraus MD 200 [place] [address] HSV-1 infection*; Idiopathic acute pancreatitis, unspecified complication status; Electrolyte imbalance; Alcohol withdrawal syndrome without complication (HCC); Hospital discharge follow-up Allergies Active Allergy Reactions Criticality Noted Date Comments Nickel Rash 06/01/2018 documented as of this encounter (statuses as of 08/01/2024) Medications Medication Sig Dispensed Refills Start Date [...] 06/16/2024 Active Torsemide 10 MG Oral Tablet (Demadex)Indicat [...] Active valACYclovir HCl 1 GM Oral Tablet (Valtrex)Indicat ions:HSV-1 infection Take 1 Tablet by mouth in the morning and 1 Tablet at noon and 1 Tablet before bedtime. For 7 days for shingles. 21 Tablet 08/01/2024 Active valACYclovir HCl 1 GM Oral Tablet (Valtrex)Indicat ions:HSV-1 infection Take 1 Tablet by mouth in the morning and 1 Tablet at noon and 1 Tablet before bedtime. Do all this for 7 days. For 7 days for shingles. 21 Tablet 08/01/2024 08/01/2024 Discontinued documented as of this encounter (statuses as of 08/01/2024) Active Problems Problem Noted Date Diagnosed Date Major depressive disorder, recurrent episode, mo derate 11/15/2018 Depression with anxiety 10/19/2016 Malaise and fatigue 08/18/2010 Tobacco use disorder 11/02/2007 Elevated liver enzymes Migraine Insomnia documented as of this encounter (statuses as of 08/01/2024) Resolved Problems Problem Noted Date Diagnosed Date Resolved Date Alcohol abuse, in remission 04/24/2023 04/24/2023 Routine medical exam 08/18/2010 018 documented as of this encounter (statuses as of 08/01/2024) Immunizations Name Administration Dates Next Due Covid-19, [...] Sign Reading Time Taken Comments Blood Pressure 90/68 08/01/2024 2:32 PM EST Pulse 83 08/01/2024 2:32 PM EST Temperature 36.6 C (97.8 F) 08/01/2024 2:32 PM ES T Respiratory Rate - - Oxygen Saturation 99% 08/01/2024 2:32 PM EST Inhaled Oxygen Concentration - - Weight 55.2 kg (121 lb 11.2 oz) 08/01/2024 2:32 PM EST Height - - Body Mass Index 20.88 06/16/2024 9:36 AM EDT documented in this encounter Progress Notes * Jose Kraus MD - 08/01/2024 2:52 PM EST HPI: Emma Nathan is a 43 year old female with a history of ADHD, anxiety, disorder, mood disorder, migraines, chronic pancytopenia into bracket baseline hemoglobin of 11, ongoing tobacco and alcohol abuse went to Emergency Room because of alcohol withdrawal. As per the review of the chart anddiscussion with the patient the last drink prior to going to Emergency Room she had was 2 days to 2weeks prior and she had extensive blood work and imaging done. LFT showed AST elevation, lipase elevated to 2411 on admission, CT abdomen and pelvis from 07/26 showed acute pancreatitis without abscess. GI was consulted and they recommended NPO, IV fluid who presents with: Chief Complaint Patient presents with Acute While in the hospital patient had EKG with sinus rhythm and prolonged QT interval of 502, tachycardia likely secondary to dehydration, vomiting and withdrawal possibly. Patient was on home hydroxyzine 100 mg 3 times a day and looking at prolonged QTC the dose was decreased to 50 mg 3 times a day and was advised to follow up with us. Patient's heart rate improved with IV fluid. She also had cold sore outbreak around her mouth on July 28 while in the hospital and she was treated with 1 day of valacyclovir 2 g twice a day. Patient was advised to continue migraine prophylaxis Topamax and advised to continue amitriptyline 125 mg at nighttime as needed, sertraline 100 mg once a day and hydroxyzine 50 mg 3 times a day as needed. Patient was also found to have anion gap metabolic acidosis likely secondary to vomiting and ketosis and she was encouraged oral intake and was given IV fluid. She did have pedal edema and prescribed torsemide daily for intermittent pedal edema. Patient did have prerenal dehydration, torsemide was on hold while in the hospital and it was resumed on discharge, ZUHAIR resolved and pedal edema improved. Patient was also found to have electrolyte imbalance with hypokalemia, hypomagnesemia and hypophosphatemia and it was treated while in the hospital. CT of abdomen and pelvis showed acute pancreatitis, small volume ascites, trace pleural effusion, bladder wall thickening. Pt is here for the hospital follow up. Chart reviewed from the hospital including admission note, Hand P, consult notes, labs, EKG, imaging and discharge note including discharge meds. Patient states she is feeling better since went back home. Pt was admitted to the hospital on 07/25/24and was discharged on 07/29/24 . Admission Diagnosis : Acute pancreatitis, dehydration, alcohol withdrawal Pt has been followed up by case management specialist and specialists. She as significant dryness around the mouth area, correctly, soreness in the mouth all our to the point in gives a difficulty swallowing. Patient Active Problem List Diagnosis Tobacco use disorder Malaise and fatigue Depression with anxiety Elevated liver enzymes Migraine Insomnia Major depressive disorder, recurrent episode, moderate (HCC) Current Outpatient Medications Medication Sig Dispense Refill Acetaminophen 500 MG Oral Tablet Take 1 Tablet by mouth every 6 hours as needed. Thiamine HCl 100 MG Oral Tablet Take 1 Tablet by mouth in the morning. valACYclovir HCl 1 GM Oral Tablet (Valtrex) TAKE 1 TABLET BY MOUTH IN THE MORNING AND 1 TAB BEFORE BEDTIME FOR 7 DAYS 14 Tablet 1 LORazepam 1 MG Oral Tablet (Ativan) 1 daily as needed anxiety 5 Tablet 0 Cyclobenzaprine HCl 5 MG Oral Tablet (Flexeril) [...] mouth in the morning. 30 Tablet 1 Sertraline HCl 50 MG Oral Tablet (Zoloft) Take 2 Tablets by mouth in the morning. 60 Tablet 3 Amitriptyline HCl 50 MG Oral Tablet (Elavil) Take 2.5 Tablets by mouth at bedtime. 75 Tablet 3 Gabapentin 300 MG Oral Capsule (Neurontin) Take 1 Capsule by mouth in the morning and 1 Capsule at noon and 1 Capsule before bedtime. 3x daily. 270 Capsule 3 Magnesium Oxide 140 MG Oral Capsule 400 mg. No current facility-administered medications for this visit. The patient's medication list was reviewed and updated as needed. Review of patient's allergies indicates: Allergen Reactions Nickel Rash Past Medical History: Diagnosis Date Alcohol abuse, in remission Elevated liver enzymes Insomnia Migraine Social History Socioeconomic History Marital status: Single Occupational History Comment: [employer] Tobacco Use Smoking status: Former Current packs/day: 0.50 Average packs/day: 0.5 packs/day for 20.0 years (10.0 ttl pk-yrs) Types: Cigarettes Smokeless tobacco: Never Tobacco comments: Vapes every day Vaping Use Vaping status: Every Day Substances: Nicotine Substance and Sexual Activity Alcohol use: Not Currently Alcohol/week: 56.0 standard drinks of alcohol Types: 56 1.5 oz of liquor per week Comment: 8-10 shots per day Drug use: No Sexual activity: Yes Partners: Male Social History Narrative Not employed currently Social Determinants of Health Financial Resource Strain: Low Risk (08/01/2024) Financial Resource Strain Do you have any trouble paying for your medications, or do you think you might in the future? (Adult - for ages 18 years and over): No Food Insecurity: No Food Insecurity (08/01/2024) Food Insecurity Do you need food for this week? (Adult - for ages 18 years and over): No Transportation Needs: No Transportation Needs (08/01/2024) Transportation Needs Has lack of transportation kept you from medical appointments, meetings, work, or from getting things needed for daily living? Check all that apply. (Adult - for ages 18 years and over): No Social Connections: Socially Integrated (08/01/2024) Social Connections How often do you feel lonely or isolated from those around you? (Adult - for ages 18 years and over): Sometimes Housing Stability: Low Risk (08/01/2024) Housing Stability Do you currently live in a penitentiary or have no steady place to sleep at night? (Adult - for ages 18 years and over): No Are you homeless or worried that you might be in the future? (Adult - for ages 18 years and over): No Family History Problem Relation Name Age of Onset No Past Hx Mother Heart Disorder Father A fib Alcohol and Other Disorders Associated Father 6 years recovered Neurological Disorder Grandmother (Paternal) dementia Cancer Grandfather (Paternal) prostate Breast Cancer Cousin (Paternal) All system negative except as per hpi. OBJECTIVE: BP 90/68 | Pulse 83 | Temp 36.6 C (97.8 F) (Tympanic) | Wt 55.2 kg (121 lb 11.2 oz) | SpO2 99% | BMI 20.88 kg/m | BSA 1.58 m PHYSICAL EXAM: HEENT: PERRLA, EOMI, anicteric sclera, b/l tympanic membrane is pearly white, no erythema, no pharyngeal erythema, no lymphadenopathy, neck supple Ulcers on both lips with some edema. CVS: RRR, no murmurs, rubs or gallops, s1 s 2normal. RESP: clear to auscultation, no wheezing or crackles ABD: soft, NT/ND EXT: no edema, cyanosis, peripheral pulses palpable bilaterally No large joint swelling, no redness, range of motion normal. Skin dry Gait normal. Mood stable No focal weakness ASSESSMENT AND PLAN: HSV-1 infection (Primary) - startvalACYclovir HCl 1 GM Oral Tablet (Valtrex); Take 1 Tablet by mouth in the morning and 1 Tablet at noon and 1 Tablet before bedtime. Do all this for 7 days. For 7 days for shingles. Idiopathic acute pancreatitis, unspecified complication status Feeling much better. Pt is not drinking at this time. Advised hydration. Electrolyte imbalance - COMPREHENSIVE METABOLIC PANEL; Future; Expected date: 08/01/2024 - MAGNESIUM; Future; Expected date: 08/01/2024 - PHOSPHORUS; Future; Expected date: 08/01/2024 Alcohol withdrawal syndrome without complication (HCC) As above. Jose Kraus MD documented in this encounter Nursing Notes * Lila Sellers Student - 08/01/2024 3:04 PM EST Pt here for a hospital follow up. * Lila Sellers Student - 08/01/2024 2:22 PM EST Pt here for red, painful, scabbed, swollen and cracked lips that began 07/27 and the scabs are expanding to her nose and cheeks. She was admitted into the hospital for a different reason but symptomsstarted two days into her stay. Pain is so bad that she can no longer eat. She had tried numerous remedies and none have helped. documented in this encounter Miscellaneous Notes * Addendum Note - Jose Kraus MD - 08/01/2024 3:18 PM ESTAddended by: JOSE KRAUS on: 08/01/2024 03:18 PM Modules accepted: Orders documented in this encounter Plan of Treatment Upcoming Encounters Date Type Department Care Team (Late st Contact Info) Description 08/03/2024 8:20 AM EST Office Visit Family Practice [facility] Makenzie [place] [address] [facility] [place] [address] Kelsie Barrios MD 200 [facility] [place] [address] Scheduled Orders Name Type Priority Associated Diagnoses Orde r Schedule COMPREHENSIVE METABOLIC PANEL Lab Routine Electrolyte imbalance Expected: 08/01/2024 (Approximate), Expires: 08/01/2025 MAGNESIUM Lab Routine Electrolyte imbalance Expected: 08/01/2024 (Approximate), Expires: 08/01/2025 PHOSPHORUS Lab Routine Electrolyte imbalance Expected: 08/01/2024 (Approximate), Expires: 08/01/2025 LIPASE Lab Routine Idiopathic acute pancreatitis, unspecified complication status Expected: 08/01/2024 (Approximate), Expires: 08/01/2025 Health Maintenance Due Date Last Done Comments Hepatitis B Vaccine (1 of 3 - 19+ 3-dose series) 2001 HPV/Co-Test 2012 COVID-19 Vaccine ( season) 2024 09/23/2022 Influenza Vaccine (FLU shot) (#1) 2024 Mammogram 06/28/2024 06/28/2023, 06/21/2023 Cervical Cancer Screening 08/27/2024 Pap Smear 08/27/2024 08/27/2021, 07/01/2018 (Done elsewhere), 12/21/2014, Additional history exists Depression [...] as of this encounter Visit Diagnoses Diagnosis HSV-1 infection- Primary Herpes simplex without mention of complication Idiopathic acute pancreatitis, unspecified complication status Electrolyte imbalance Electrolyte and fluid disorders not elsewhere classified Alcohol withdrawal syndrome without complication (HCC) Hospital discharge follow-up Other follow-up examination documented in this encounter Care Teams Alarm Adjuster Relationship Specialty Start Date End Date Aj Gaston III, MD 200 [place] [address] PCP - General Family Medicine 05/12/23 documented as of this encounter"
--- OUTSIDE RECORDS SUMMARY | 2024-08-19 20:44 | External Medical Summary ---
Author Name Unknown Address Unknown Organization [id number]:[facility]ORY [facility] - [address] [facility] [address] Laboratory Report Ordering Provider Test Date Status DEVI GARCIA 08/01/2024 15:36:47 Final Observation Date Value Abnormality Reference (Units ) Status Lipase 08/01/2024 15:36:47 544 Above high normal 13 -60 (U/L) Final Performing Location [facility] - [address] [facility] [address]
--- OUTSIDE RECORDS SUMMARY | 2024-08-19 20:44 | External Medical Summary ---
Author Name Unknown Address Unknown Organization [id number]:[facility]ORY [facility] - [address] [facility] [place]. [facility] [address] Laboratory Report Ordering Provider Test Date Status BOOM KEBEDE 08/01/2024 15:36:47 Final Observation Date Value Abnormality Reference (Units ) Status MYCODE SPECIMEN-SST 08/01/2024 15:36:47 Freezing of extracted DNA, whole blood and/or serum. Final Performing Location LABORATORY [facility] - [address] [facility] [address]
--- OUTSIDE RECORDS SUMMARY | 2024-08-19 20:44 | External Medical Summary ---
Author Name Unknown Address Unknown Organization [id number]:[facility] - [address] [place] [address] Laboratory Report Ordering Provider Test Date Status DEVI GARCIA 08/01/2024 15:36:47 Final Observation Date Value Abnormality Reference (Units ) Status Magnesium 08/01/2024 15:36:47 1.9 1.5-2.6 (m g/dL) Final Performing Location [facility] [address] [facility] [address]
--- OUTSIDE RECORDS SUMMARY | 2024-08-19 20:44 | External Medical Summary | Summary of Care ---
Author Name Unknown Organization [facility] Address [address] [place] [address] Phone [phone] Care Team Providers Care Director Of Marketing Name Role Phone Marilin MICHAELS MD, John E Primary Care Provider [phone] Reason for Visit * Reason Onset Date Comments Medication Refill 08/03/2024 Encounter Details Date Type Department Care Team (Late st Contact Info) Description 08/03/2024 Telephone Family Practice [facility] 200 [facility] [address] Aj Gaston III, MD 200 [place] [address] Medication Refill Allergies Active Allergy Reactions Criticality [...] the patient. Thank you, Sherri Garcia CPhT Telephone Sex Worker II [facility] ([facility]) 08/03/2024,4:42 PM documented in this encounter Plan of Treatment Upcoming Encounters Date Type Department Care Team (Late st Contact Info) Description 08/17/2024 3:45 PM EST Imaging Radiology [address] [place] [address] 08/21/2024 1:20 PM EST Office Visit General Internal Medicine [facility] Makenzie [place] [address] [place] [address] Jolynn Aguilar MD 200 [facility] [place] [address] Health Maintenance Due Date Last Done Comments [...] filedocumented as of this encounter Care Teams Director Of Marketing Relationship Specialty Start Date End Date Marilin IIIAj MD 200 [facility] [place] [place] [address] PCP - General Family Medicine 05/12/23 documented as of this encounter
--- OUTSIDE RECORDS SUMMARY | 2024-08-19 20:44 | External Medical Summary | Summary of Care ---
Author Name Unknown Organization [facility] Address [address] [place] [address] Phone [phone] Care Team Providers Care Livestock Producer Name Role Phone Marilin MICHAELS MD, Aj Westfall Primary Care Provider [phone] Reason for Visit * Reason Onset Date Comments Medication Refill 08/03/2024 Encounter Details Date Type Department Care Team (Late st Contact Info) Description 08/03/2024 Telephone Family Practice [facility] 200 [place] [address] Aj Gaston III, MD 200 [place] [address] Medication Refill Allergies Active Allergy Reactions Criticality Noted Date Comments Nickel Rash 06/01/2018 documented as of this encounter (statuses as of 08/05/2024) Medications Acetaminophen 500 MG Oral Tablet Take [...] as of this encounter (statuses as of 08/05/2024) Active Problems Problem Noted Date Diagnosed Date Major depressive disorder, recurrent episode, mo derate 11/15/2018 Depression with anxiety 10/19/2016 Malaise and fatigue 08/18/2010 Tobacco use disorder 11/02/2007 Elevated liver enzymes Migraine Insomnia documented as of this encounter (statuses as of 08/05/2024) Resolved Problems Problem Noted Date Diagnosed Date Resolved Date Alcohol abuse, in remission 04/24/2023 04/24/2023 Routine medical exam 08/18/201005/09/ 018 documented as of this encounter (statuses as of 08/05/2024) Immunizations Name Administration Dates Next Due Covid-19, [...] No 08/01/2024 Does the household have a [facility] income? (Household - for [...] the patient. Thank you, Sherri Garcia CPhT Chemical Engineering Technologist II [facility] ([facility]) 08/03/2024,4:42 PM documented in this encounter Plan of Treatment Upcoming Encounters Date Type Department Care Team (Late st Contact Info) Description 08/17/2024 3:45 PM EST Imaging Radiology [facility] 1st [facility], [place] 132 [facility] [place] [address] 08/21/2024 1:20 PM EST Office Visit General Internal Medicine Kayy Banegas [place] 200 [facility] [place] [address] Jolynn Aguilar MD 200 [facility] [place] [address] Health Maintenance Due Date Last Done Comments [...] filedocumented as of this encounter Care Teams Livestock Producer Relationship Specialty Start Date End Date Aj Gaston III, MD 200 [place] [address] PCP - General Family Medicine 05/12/23 documented as of this encounter
--- OUTSIDE RECORDS SUMMARY | 2024-08-19 20:44 | External Medical Summary | Summary of Care ---
Author Name Unknown Organization [facility] Address [address] [place] [address] Phone [phone] Care Team Providers Care Mule Operator Name Role Phone Marilin MICHAELS MD, Aj Westfall Primary Care Provider [phone] Reason for Visit * Reason Comments Outpatient Testing Encounter Details Date Type Department Care Team (Late st Contact Info) Description 08/01/2024 3:30 PM EST [facility] [address] [place] [id number] [facility] [address] [place] [address] Codealike Other*[id number]; Electrolyte imbalance; Idiopathic acute pancreatitis, unspecified complication status Allergies Active Allergy Reactions Criticality Noted Date [...] PM EST Office Visit General Internal Medicine [facility] [place] [address] [place] [address] Jolynn Aguilar MD 200 [facility] [place] [address] Pending Results Name Type Priority Associated Diagnoses Date /Time MYCODE INITIAL ADULT Lab Routine MyCode Research Other*[id number] 08/01/2024 3:36 PM EST COMPREHENSIVE METABOLIC PANEL Lab Routine Electrolyte imbalance 08/01/2024 3:36 PM EST MAGNESIUM Lab Routine Electrolyte imbalance 08/01/2024 3:36 PM EST PHOSPHORUS Lab Routine Electrolyte imbalance 08/01/2024 3:36 PM EST LIPASE Lab Routine Idiopathic acute pancreatitis, unspecified complication status 08/01/2024 3:36 PM EST MYCODE INITIAL ADULT-PINK Lab Routine My[employer] Research Other*[id number] 08/01/2024 3:36 PM EST MYCODE SST1 Lab Routine My[employer] Research Other*[id number] 08/01/2024 3:36 PM EST MYCODE SST2 Lab Routine My[employer] Research Other*[id number] 08/01/2024 3:36 PM EST Health Maintenance Due Date Last Done Comments [...] this encounter Visit Diagnoses Diagnosis MyCode Research Other*[id number] Electrolyte imbalance Electrolyte and fluid disorders not elsewhere classified Idiopathic acute pancreatitis, unspecified complication status documented in this encounter Care Teams Mule Operator Relationship Specialty Start Date End Date Aj Gaston III, MD [address] [place], [place] [address] PCP - General Family Medicine 05/12/23 documented as of this encounter
--- OUTSIDE RECORDS SUMMARY | 2024-08-19 20:44 | External Medical Summary | Summary of Care ---
Author Name Unknown Organization [facility] Address [address] [place] [address] Phone [phone] Care Team Providers Care Cook Fry Name Role Phone Marilin MICHAELS MD, Aj Westfall Primary Care Provider [phone] Reason for Visit * Reason Onset Date Comments Medication Refill 08/03/2024 Encounter Details Date Type Department Care Team (Late st Contact Info) Description 08/03/2024 Refill Family Practice [facility] 200 [place] [address] Aj Gaston III, MD 200 [place] [address] Allergies Active Allergy Reactions Criticality Noted Date [...] and 1 Tablet before bedtime. 07/28/2024 Active Potassium Chloride ER 10 MEQ Oral Capsule Extended Release Take 2 Capsules by mouth in the morning. 07/29/2024 Active documented as of this encounter (statuses [...] No 08/01/2024 Does the household have a [facility] source [facility]? (Household - for ages [...] encounter Miscellaneous Notes * Addendum Note - Artie Staples LPN - 08/07/2024 9:28 AM ESTAddended by: ARTIE STAPLES on: 08/07/2024 09:28 AM Modules accepted: Orders * Telephone Encounter - Artie Staples LPN - 08/07/2024 9:23 AM EST Patient [...] for the patient. Thank you, Sherri Garcia [facility] Metal Trades Instructor II [facility] ([facility]) 08/03/2024,4:42 PM documented in this encounter Plan of Treatment Upcoming Encounters Date Type Department Care Team (Late st Contact Info) Description 08/17/2024 3:45 PM EST Imaging Radiology [address] 132 [facility] [place] [address] 08/21/2024 1:20 PM EST Office Visit General Internal Medicine [facility] 200 [place] [address] Jolynn Aguilar MD 200 [facility] [place] [address] Health Maintenance Due Date Last Done Comments [...] filedocumented as of this encounter Care Teams Cook Fry Relationship Specialty Start Date End Date Aj Gaston III, MD 200 [place] [address] PCP - General Family Medicine 05/12/23 documented as of this encounter
--- OUTSIDE RECORDS SUMMARY | 2024-08-19 20:44 | External Medical Summary | Summary of Care ---
Author Name Unknown Organization [facility] Address [address] [place] [address] Phone [phone] Care Team Providers Care Cap Coverer Name Role Phone Marilin MICHAELS MD, Aj Westfall Primary Care Provider [phone] Reason for Visit * Reason Onset Date Comments Acute Hospital Follow-Up Hospital Follow-Up 08/01/2024 Encounter Details Date Type Department Care Team (Late st Contact Info) Description 08/01/2024 2:00 PM EST Office Visit General Internal Medicine [facility] 200 [place] [address] Jose Kraus MD 200 [place] [address] HSV-1 infection*; Idiopathic acute pancreatitis, unspecified complication [...] withdrawal Pt has been followed up by field nurse case manager and specialists. She as significant dryness around [...] Stability Do you currently live in a chcf or have no steady place to sleep [...] 8:20 AM EST Office Visit Family Practice [facility] [place] 200 [facility] [place] [address] Kelsie Barrios MD 200 [facility] [place] [address] Scheduled Orders Name Type Priority Associated Diagnoses [...] examination documented in this encounter Care Teams Cap Coverer Relationship Specialty Start Date End Date Aj Gaston III, MD 200 [facility] [place] [address] PCP - General Family Medicine 05/12/23 documented as of this encounter"
--- OUTSIDE RECORDS SUMMARY | 2024-08-19 20:44 | External Medical Summary ---
Author Name Unknown Address Unknown Organization K01:[facility] [address] [place] [address] Laboratory Report Ordering Provider Test Date Status DEVI GARCIA 08/01/2024 15:36:47 Final Observation Date Value Abnormality Reference (Units ) Status Phosphate 08/01/2024 15:36:47 4.7 2.5-4.8 (m g/dL) Final Performing Location [facility] [address] [facility] [facility] [address]
--- OUTSIDE RECORDS SUMMARY | 2024-08-19 20:44 | External Medical Summary | Summary of Care ---
Author Name Unknown Organization [facility] Address [address] [place] [address] Phone [phone] Care Team Providers Care Resource Room Teacher Name Role Phone Marilin MICHAELS MD, Aj Westfall Primary Care Provider [phone] Encounter Details Date Type Department Care Team (Late st Contact Info) Description 08/07/2024 Orders Only Outcomes Research Department [address] [place] [address] Shannen Turner CHRA [employer] Other*[id number] Allergies Active Allergy Reactions Criticality Noted Date [...] Description 08/17/2024 3:45 PM EST Imaging Radiology [address] 132 [facility] [place] [address] 08/21/2024 1:20 PM EST Office Visit General Internal Medicine Kayy Banegas [place] [address] [place] [address] Jolynn Aguilar MD [address] [place] [address] Scheduled Orders Name Type Priority Associated Diagnoses Orde r Schedule MYCODE SUBSEQUENT ADULT Lab Routine MyCode Research Other*[id number] Every 6 Months for 2 Occurrences starting 08/07/2024 until 08/27/2025 Health Maintenance Due Date Last Done Comments [...] this encounter Visit Diagnoses Diagnosis MyCode Research Other*[id number] Screening mammogram for breast cancer documented in this encounter Care Teams Resource Room Teacher Relationship Specialty Start Date End Date Aj Gaston III, MD 200 [place] [address] PCP - General Family Medicine 05/12/23 documented as of this encounter
--- OUTSIDE RECORDS SUMMARY | 2024-08-19 20:44 | External Medical Summary | Summary of Care ---
Author Name Unknown Organization [facility] Address [address] [place] [address] Phone [phone] Care Team Providers Care Merchandising Coordinator Name Role Phone Marilin MICHAELS MD, Aj Westfall Primary Care Provider [phone] Reason for Visit * Reason Onset Date Comments Medication Refill 08/03/2024 Encounter Details Date Type Department Care Team (Late st Contact Info) Description 08/03/2024 Telephone Family Practice [facility] 200 [place] [address] Aj Gaston III, MD 200 [place] [address] Medication Refill Allergies Active Allergy Reactions Criticality [...] No 08/01/2024 Does the household have a [facility] source [facility] income? (Household - [...] encounter Miscellaneous Notes * Telephone Encounter - Sandra Barragan LPN [...] hour turn-around time. * Telephone Encounter - DemichSherri PHARM Tech - 08/03/2024 4:42 PM EST Pt asking high priority due to running out. Patient calling requesting refills for Magnesium oxide 140 mg . Upon chart review, medication was last prescribed by hospital. Pt did schedule a hospital follow up visit. Please advise if you wish tocontinue this therapy for the patient. Thank you, Sherri Garcia CPhT Machine Feed Operator II [facility] ([facility]) 08/03/2024,4:42 PM documented in this encounter Plan of Treatment Upcoming Encounters Date Type Department Care Team (Late st Contact Info) Description 08/17/2024 3:45 PM EST Imaging Radiology [address] 132 [facility] [place] [address] 08/21/2024 1:20 PM EST Office Visit General Internal Medicine [facility] 200 [facility] [place] [address] Jolynn Aguilar MD 200 [facility] [place] [address] Health Maintenance Due Date Last Done Comments [...] filedocumented as of this encounter Care Teams Merchandising Coordinator Relationship Specialty Start Date End Date Aj Gaston III, MD 200 [place] [address] PCP - General Family Medicine 05/12/23 documented as of this encounter
--- OUTSIDE RECORDS SUMMARY | 2024-08-19 20:44 | External Medical Summary | Summary of Care ---
Author Name Unknown Organization [facility] Address [address] [place] [address] Phone [phone] Care Team Providers Care Greens Planter Name Role Phone Marilin MICHAELS MD, Aj Westfall Primary Care Provider [phone] Reason for Visit * Reason Onset Date Comments Medication Refill 08/03/2024 Encounter Details Date Type Department Care Team (Late st Contact Info) Description 08/03/2024 Refill Family Practice [facility] 200 [facility] [place] [place] [address] Aj Gaston III, MD 200 [place] [address] Allergies Active Allergy Reactions Criticality Noted Date [...] No 08/01/2024 Does the household have a [facility] source [facility]? (Household - for ages [...] encounter Miscellaneous Notes * Telephone Encounter - Shanon Gray lcsw - 08/07/2024 9:32 AM EST Pt can not find Magnesium Oxide 140 MG Oral Capsule She can not find this pt needs a new rx please Thank you for your assistance Shanon Gray It 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s Specialist II [facility] ([facility]) 08/07/2024,9:34 [...] for the patient. Thank you, Sherri Garcia [facility] Engineering Professor II [facility] Pharmacy Services ([facility]) 08/03/2024,4:42 PM documented in this encounter Plan of Treatment Upcoming Encounters Date Type Department Care Team (Late st Contact Info) Description 08/17/2024 3:45 PM EST Imaging Radiology [address], [place] 132 [facility] [place] [address] 08/21/2024 1:20 PM EST Office Visit General Internal Medicine Kayy Banegas [place] [address] [place], [place] [address] Jolynn Aguilar MD 200 [place] [address] Health Maintenance Due Date Last Done Comments [...] filedocumented as of this encounter Care Teams Greens Planter Relationship Specialty Start Date End Date Aj Gaston III, MD [address] [place] [address] PCP - General Family Medicine 05/12/23 documented as of this encounter
--- NOTE | 2024-08-19 20:47 | Emergency Department Note ---
Impression & Plan Acute alcoholic pancreatitis, History of alcohol dependence, Nausea & vomiting, Acute dehydration, ZUHAIR (acute kidney injury) ED Provider Note NAME: ADIA NAVARRO AGE: 44 SEX: F : 1980 ARRIVES VIA: Walk-In INFORMANT: Patient, ED PROVIDER(S): Damion Espinosa MD CHIEF COMPLAINT: Nausea vomiting MEDICAL DECISION MAKING: Patient presents due to concern for nausea vomiting. Known history of alcohol abuse although denies drinking since Wednesday. IV was established and blood work was obtained along with an alcohol level. Patient was ordered IV fluids and IV Zofran. Patient does not have a tender abdomen on exam. No prior history of pancreatitis. We discussed with the patient had abnormal blood work we will consider imaging but do not believe an acute need at this time. Patient is not peritonitic. Patient's blood work shows a normal white count H&H and platelet count kidney function with creatinine 1.21. The patient does have associated ZUHAIR anion gap and lower bicarb likely secondary to GI losses. Calcium elevated 11.1 lipase of 441 likely consistent with pancreatitis. Urinalysis does show ketones. Alcohol negative. BioFire negative. Given the patient's pancreatitis and dehydration do believe the patient would be best served in hospital. The patient was ordered additional IV fluids. The patient still had nausea and vomiting was ordered Reglan and Benadryl. I did speak with the on-call hospital service Dr. Bueno and the patient was admitted to the medicine service. Discussion w/ other healthcare providers: Dr. Bueno inpatient medicine service Prior /Outside records reviewed: I reviewed part of a discharge summary from July 29, [address] Daniel. Patient with alcoholic ketoacidosis and alcohol withdrawal. Differential diagnosis: Gastroenteritis, food borne illness, infection, appendicitis, diverticulitis, inflammatory bowel disease, obstruction among others were considered. Diagnostics, as interpreted by me: ECG: Sinus rhythm, rate of 82, normal intervals, normal axis no ST elevations possible T wave flattening although significant motion artifact noted throughout the EKG. No obvious STEMI. Cardiac monitoring: An order was placed for continuous cardiac monitoring. The monitor shows a rate of 85 with sinus rhythm. Patient was placed on pulse oximetry Medical decision rules: None Imaging studies: None HPI: Patient presents due to concern for nausea vomiting. The patient states that she does have a known history of alcohol abuse and pancreatitis. The patient states that she has been trying not to drink and was seen about a month ago was diagnosed with pancreatitis at the time. The patient states that she did have a "slip up." States that she did drink some vodka over the weekend made about 6-8 shots watered-down and water bottle that time that maybe 3 shots on Wednesday. Patient denies any alcohol use since Wednesday. The patient states that since the episode of drinking the patient has had some abdominal discomfort associated nausea vomiting. In the last 24 hours the patient states that she has not been able to keep anything down. The patient been trialing some water as well as sarabjit rosamaria she has her throat feels raw from the vomiting. Currently just having more dry heaving episodes. Patient denies any falls or trauma no fevers or chills no urinary symptoms. Patient states that her appetite has been poor. PAST MEDICAL HISTORY: See Below PAST SURGICAL HISTORY: See Below SOCIAL HISTORY: See Below HOME MEDICATIONS: See Below ALLERGIES: See Below VITALS: See Below PHYSICAL EXAMINATION: GENERAL: NAD, non-toxic. Wearing glasses. EYE EXAM: Normal conjunctiva. PERRL, no anisocoria and EOM's grossly intact w/o pain. OROPHARYNX: Dry mucus membranes, grossly normal dentition. NECK: Trachea midline, no stridor. Supple, no nuchal rigidity, no adenopathy, non-tender. No signs of meningismus. FROM of the neck with good chin to chest and neck extension. LUNGS: Clear to auscultation. Normal chest wall mechanics. HEART: NSR, no MRG. ABDOMEN: Abdomen soft, non-tender, no masses, no rebound or guarding. BACK: No CVA TTP. SKIN: No rashes and no bruising. UPPER EXTREMITIES: Upper extremities are grossly normal. LOWER EXTREMITIES: Grossly normal, no edema. NEURO EXAM: A&O x3, cranial nerves II-XII grossly intact, normal speech, moves all 4 extremities. Past Med/Surg History Problem List (Updated 08/20/24 @ 00:12 by Damion Espinosa MD) ZUHAIR (acute kidney injury) (Acute) Acute dehydration (Acute) Nausea & vomiting (Acute) History of alcohol dependence (Acute) Acute alcoholic pancreatitis (Acute) Pancreatitis without necrosis or infection Vomiting (Acute) ZUHAIR (acute kidney injury) (Acute) Alcohol withdrawal (Acute) Alcohol abuse (Acute) Hypomagnesemia (Acute) Tachycardia (Acute) Alcohol withdrawal Alcoholic ketoacidosis (Acute) Contusion (Acute) Alcoholic intoxication (Acute) Alcohol abuse (Acute) Weakness (Acute) Hypomagnesemia (Acute) Hallucinations (Acute) Alcohol abuse (Acute) S/P nasal surgery septoplasty and rhinoplasty-both w/Dr. Castañeda Allergic rhinitis Abnormal uterine bleeding ADD (attention deficit disorder) Insomnia Restless leg Anxiety and depression (Chronic) Fatty liver (Chronic) Alcohol dependence (Chronic) Medical History Tobacco use disorder Intractable nausea and vomiting Depression Anxiety Surgical History H/O wisdom tooth extraction Family History Aunt Breast cancer, Onset Age: 65 paternal Asthma maternal Grandfather (Paternal) Prostate cancer Aunt Allergies maternal Family/Other Allergies cousins Asthma cousins Other No family history of adverse response to anesthesia No family history of bleeding disorder Denies family history of Ovarian cancer Colorectal cancer Social History Smoking Status: Never smoker Tobacco Type: Cigarettes Age Started Using Tobacco: 20; packs per day: 0.5; Cigarettes Per Day: 4; Second Hand Exposure: No; Do You Dip or Chew Tobacco: No; Hx Alcohol Use: Yes Alcohol type: hard liquor Hx Substance Use: No Preferred Language: Somali 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 Ability: Effective Teller Supervisor Required: No Beliefs That Will Affect Care: None marital status: Single Current Living Situation: Alone Feels Safe at Home: Yes Assistive Devices: None Allergies Allergies Allergy/AdvReac Type Severity Reaction Status Date / Time nickel Allergy Rash Verified 01/06/24 16:22 Home Meds Home Medications Medication Instructions Recorded Confirmed acetaminophen 500 mg tablet 500 - 1,000 mg PO Q6H PRN Pain 08/14/23 08/19/24 (Tylenol Extra Strength) albuterol sulfate 90 mcg/actuation 2 puff inhalation QID PRN 08/14/23 08/19/24 aerosol inhaler (Ventolin HFA) Shortness Of Breath Or Wheezing gabapentin 300 mg capsule 300 mg PO TID 01/06/24 08/19/24 amitriptyline 100 mg tablet 125 mg PO HS PRN Sleep 03/15/24 08/19/24 sertraline 50 mg tablet 100 mg PO QAM 03/15/24 08/19/24 torsemide 10 mg tablet 10 mg PO QAM 03/15/24 08/19/24 topiramate 100 mg tablet 100 mg TID 07/25/24 08/19/24 topiramate 25 mg tablet 25 mg BID 07/25/24 08/19/24 hydroxyzine HCl 50 mg tablet 50 mg PO TID PRN Anxiety 08/19/24 08/19/24 Previous Rx's Medication Instructions Recorded hydroxyzine pamoate 100 mg capsule 50 mg (1/2 x 100 mg) PO TID PRN 07/28/24 Anxiety #0 caps magnesium oxide 400 mg (241.3 mg 400 mg PO BID #6 tabs 07/28/24 magnesium) tablet potassium chloride 20 mEq 20 meq PO DAILY #3 tabs 07/29/24 tablet,extended release Results & Data (ED) Vital Signs Vital Signs - 24 hr 08/19/24 20:40 08/19/24 21:06 08/19/24 22:30 Temperature 37 C Temperature Source Temporal Artery Scan Pulse Rate 108 H 105 H 101 H Respiratory Rate 17 20 Blood Pressure 145/84 H 102/74 Blood Pressure Mean 104 83 Pulse Oximetry 100 100 Sepsis Recent Fever Within 48 Hours No Sepsis New/Unexplained Change in Mental Status No Sepsis Action Taken by Nursing No Action Required Home Medications Current Medication List: was personally reviewed by me Laboratory Data Attestation: I reviewed the patient's lab results. 08/19/24 21:06 08/19/24 21:06 Lab Results 08/19/24 Range/Units 21:06 WBC 10.44 (4.8-10.8) K/ul RBC 4.50 (4.20-5.40) M/uL Hgb 15.0 (12.0-16.0) g/dl Hct 43.7 (37.0-47.0) % MCV 97.1 (80.0-100.0) fL MCH 33.3 (25.0-34.0) pg MCHC 34.3 (32.0-36.0) g/dL RDW Std Deviation 51.4 H (36.4-46.3) fL RDW Coeff of Edgar 14.2 (11.5-14.5) % Plt Count 328 (130-400) K/uL MPV 9.4 (9.4-12.4) fL Immature Gran % (Auto) 0.5 % Neut % (Auto) 86.7 % Lymph % (Auto) 7.7 % [place] % (Auto) 4.6 % Eos % (Auto) 0.3 % Baso % (Auto) 0.2 % Neut # (Auto) 9.06 H (1.40-6.50) K/uL Lymph # (Auto) 0.80 L (1.20-3.40) K/uL [place] # (Auto) 0.48 (0.11-0.59) K/uL Eos # (Auto) 0.03 (0.00-0.50) K/uL Baso # (Auto) 0.02 (0.00-0.20) K/uL Immature Gran # (Auto) 0.05 (0.01-0.20) K/uL Sodium 133 L (136-145) mmol/L Potassium 4.4 (3.5-5.1) mmol/L Chloride 91 L (98-107) mmol/L Carbon Dioxide 15 L (21-32) mmol/L Anion Gap 27 H (3-11) BUN 19 (6-23) mg/dl Creatinine 1.21 H (0.6-1.2) mg/dl Est Cr Clr Drug Dosing 49.1 ml/min eGFR 57.39 BUN/Creatinine Ratio 15.7 (10-20) Glucose 190 H (70-99(Fasting)) mg/dl Calcium 11.1 H (8.6-10.3) mg/dl Total Bilirubin 0.9 (0.2-1.0) mg/dl AST 45 H (13-39) U/L ALT 27 (7-52) U/L Alkaline Phosphatase 110 H (34-104) U/L Total Protein 9.1 H (6.0-8.3) gm/dl Albumin 5.5 H (3.4-5.0) gm/dl Globulin 3.6 (2.5-4.0) gm/dl Albumin/Globulin Ratio 1.5 (0.9-2) Lipase 441 H (11-82) U/L Urine Color Yellow Urine Appearance Cloudy A (Clear) Urine pH 5.5 (4.5-7.5) Ur Specific [place] 1.018 (1.000-1.030) Urine Protein 2+ H (Negative) Urine Glucose (UA) Negative (Negative) Urine Ketones 4+ H (Negative) Urine Blood Trace H (Negative) Urine Nitrite Negative (Negative) Urine Bilirubin Negative (Negative) Urine Urobilinogen Negative (Negative) Ur Leukocyte Esterase Trace H (Negative) Urine WBC (Auto) 0-5 (0-5) /hpf Urine RBC (Auto) 3-5 H (0-2) /hpf U Hyaline Cast (Auto) >20 H (0-2) /lpf U Epithel Cells (Auto) 6-10 H (0-2) /hpf Urine Bacteria (Auto) 2+ H (None Seen) Hyaline Casts Present A (None Presnt) /lpf Ethyl Alcohol mg/dL < 10.0 (<10.0) mg/dl Adenovirus (PCR) Not Detected (NotDetected) B. pertussis DNA (PCR) Not Detected (NotDetected) B.parapertussis DNA PCR Not Detected (NotDetected) C. pneumoniae DNA (PCR) Not Detected (NotDetected) Coronavirus OC43 (PCR) Not Detected (NotDetected) Coronavirus HKU1 (PCR) Not Detected (NotDetected) Coronavirus 229E (PCR) Not Detected (NotDetected) SARS-CoV-2 (PCR) Not Detected (NotDetected) Coronavirus NL63 (PCR) Not Detected (NotDetected) Human Metapneumovir PCR Not Detected (NotDetected) Influenza Type A (PCR) Not Detected (NotDetected) Influenza Type B (PCR) Not Detected (NotDetected) M. pneumoniae (PCR) Not Detected (NotDetected) Parainfluenza 1 (PCR) Not Detected (NotDetected) Parainfluenza 2 (PCR) Not Detected (NotDetected) Parainfluenza 3 (PCR) Not Detected (NotDetected) Parainfluenza 4 (PCR) Not Detected (NotDetected) RSV (PCR) Not Detected (NotDetected) Entero/Rhino (PCR) Not Detected (NotDetected) Administered Medications Discontinued Medications Diphenhydramine HCl (Diphenhydramine 50 Mg/Ml Vial) 12.5 mg IV NOW STA Stop: 08/19/24 23:22 Last Admin: 08/19/24 23:45 Dose: 12.5 mg Documented By: ISHAN Hydromorphone HCl (Hydromorphone Inj 0.5 Mg/0.5 Ml Syr) 0.25 mg IV NOW STA Stop: 08/19/24 23:18 Last Admin: 08/19/24 23:41 Dose: 0.25 mg Documented By: ISHAN Sodium Chloride (Nss) 1,000 mls @ 999 mls/hr IV .Q1H1M STA Stop: 08/19/24 22:03 Last Infusion: 08/19/24 22:14 Dose: Infused Documented By: Admin: 08/19/24 21:10 Dose: 999 mls/hr Documented By: ISHAN Thiamine HCl 100 mg/ Syringe 10 mls @ 2 mls/min IV NOW STA Stop: 08/19/24 22:16 Last Admin: 08/19/24 22:57 Dose: 2 mls/min Documented By: ISHAN Folic Acid 1 mg/ Syringe 10 mls @ 5 mls/min IV NOW STA Stop: 08/19/24 22:13 Last Admin: 08/19/24 22:58 Dose: 5 mls/min Documented By: ISHAN Sodium Chloride (Nss) 500 mls @ 999 mls/hr IV .Q31M ONE Stop: 08/19/24 22:42 Last Infusion: 08/19/24 23:21 Dose: Infused Documented By: Admin: 08/19/24 22:50 Dose: 999 mls/hr Documented By: ISHAN Promethazine HCl (Phenergan) 12.5 mg in 50.5 mls @ 202 mls/hr IV NOW STA Stop: 08/19/24 23:29 Last Admin: 08/19/24 23:38 Dose: Not Given Documented By: ISHAN Famotidine (Pepcid 20mg Iv Push) 20 mg in 5 mls @ 2.5 mls/min IV NOW STA Stop: 08/19/24 23:17 Last Admin: 08/19/24 23:42 Dose: 2.5 mls/min Documented By: ISHAN Ceftriaxone Sodium (Rocephin) 2,000 mg in 50 mls @ 100 mls/hr IV NOW STA Stop: 08/19/24 23:45 Last Admin: 08/19/24 23:46 Dose: 100 mls/hr Documented By: ISHAN Metoclopramide HCl (Metoclopramide Hcl Inj 5 Mg/Ml 2 Ml Vial) 10 mg IV NOW STA Stop: 08/19/24 23:22 Last Admin: 08/19/24 23:40 Dose: 10 mg Documented By: ISHAN Ondansetron HCl (Ondansetron Inj 2 Mg/Ml 2 Ml Vial) 4 mg IV NOW STA Stop: 08/19/24 21:04 Last Admin: 08/19/24 21:10 Dose: 4 mg Documented By: ISHAN Discharge Plan Visit Data Chief Complaint: Abdominal Pain Stated Complaint: NAUSEA, NOT EATING, ABD PAIN, ED Provider: Damion Espinosa Discharge Problem: Acute alcoholic pancreatitis, History of alcohol dependence, Nausea & vomiting, Acute dehydration, ZUHAIR (acute kidney injury) Forms Stand Alone Forms: [facility] [employer] Prescriptions Prescriptions: No Action acetaminophen [Tylenol Extra Strength] 500 mg Tablet 500 - 1,000 mg PO Q6H PRN (Reason: Pain) albuterol sulfate [Ventolin HFA] 90 mcg/actuation Hfa Aerosol Inhaler 2 puff INHALATION QID PRN (Reason: Shortness Of Breath Or Wheezing) gabapentin 300 mg capsule 300 mg PO TID Hold Instructions: Until further recommendations from your primary care physician amitriptyline 100 mg tablet 125 mg PO HS PRN (Reason: Sleep) torsemide 10 mg tablet 10 mg PO QAM Hold Instructions: Hold for now. Can use as needed if leg edema worsens. Discuss with your physician for further instructions. sertraline 50 mg tablet 100 mg PO QAM topiramate 25 mg tablet 25 mg BID topiramate 100 mg tablet 100 mg TID magnesium oxide 400 mg (241.3 mg magnesium) Tablet 400 mg PO BID Qty: 6 0RF hydroxyzine pamoate 100 mg capsule 50 mg PO TID PRN (Reason: Anxiety) Qty: 0 0RF potassium chloride 20 mEq tablet extended release 20 meq PO DAILY Qty: 3 0RF hydroxyzine HCl 50 mg tablet 50 mg PO TID PRN (Reason: Anxiety) Referrals Referrals: Aj Gaston MD [Primary Care Provider] - Discharge Problem: Acute alcoholic pancreatitis Qualifiers: Acute pancreatitis complication: unspecified Qualified Code(s): K85.20 - Alcohol induced acute pancreatitis without necrosis or infection Nausea & vomiting Qualifiers: Vomiting type: unspecified Qualified Code(s): R11.2 - Nausea with vomiting, unspecified
[2024-08-19] MEDS: SODIUM CHLORIDE 0.9% 1,000 ML IV STA (21:10)
[2024-08-19] MEDS: ONDANSETRON INJ 2 MG/ML 2 ML VIAL IV STA (21:10)
[2024-08-19 21:53] LABS: Basophils # (auto) 0.02 K/uL (0.00-0.20); Basophils % (auto) 0.2 %; Eosinophils # (auto) 0.03 K/uL (0.00-0.50); Eosinophils % (auto) 0.3 %; Hematocrit (blood only) 43.7 % (37.0-47.0); Immature Granulocytes # (auto) 0.05 K/uL (0.01-0.20); Immature Granulocytes % (auto) 0.5 %; Lymphocytes % (auto) 7.7 %; Mean Corpuscular Hemoglobin 33.3 pg (25.0-34.0); Mean Corpuscular Hgb Conc 34.3 g/dL (32.0-36.0); Mean Corpuscular Volume 97.1 fL (80.0-100.0); Mean Platelet Volume 9.4 fL (9.4-12.4); Monocytes # (auto) 0.48 K/uL (0.11-0.59); Monocytes % (auto) 4.6 %; Neutrophils # (auto) 9.06 K/uL (1.40-6.50); Neutrophils % (auto) 86.7 %; Platelet Count 328 K/uL (130-400); RDW Coefficient of Variation 14.2 % (11.5-14.5); RDW Standard Deviation 51.4 fL (36.4-46.3); White Blood Count 10.44 K/ul (4.8-10.8)
[2024-08-19 21:54] LABS: Appearance Urine Cloudy (Clear); Bacteria Urine Automated 2+ (None Seen); Bilirubin Urine Negative (Negative); Blood Urine Trace (Negative); Cast Urine Automated >20 /lpf (0-2); Color Urine Yellow; Glucose Urine UA Negative (Negative); Hyaline Casts Urine Present /lpf (None Presnt); Ketones Urine 4+ (Negative); Leukocyte Esterase Urine Trace (Negative); Nitrite Urine Negative (Negative); Protein Urine 2+ (Negative); Specific Gravity Urine 1.018 (1.000-1.030); Urobilinogen Urine Negative (Negative); WBC Urine Automated 0-5 /hpf (0-5); pH Urine 5.5 (4.5-7.5)
[2024-08-19 21:55] LABS: Albumin Level 5.5 gm/dl (3.4-5.0); Bilirubin,Total 0.9 mg/dl (0.2-1.0); Calcium 11.1 mg/dl (8.6-10.3); Potassium 4.4 mmol/L (3.5-5.1)
[2024-08-19 22:00] LABS: Albumin Globulin Ratio 1.5 (0.9-2); BUN Creatinine Ratio 15.7 (10-20); Creatinine Clr Calc Pharmacy 49.1 ml/min; Globulin 3.6 gm/dl (2.5-4.0); Total Protein 9.1 gm/dl (6.0-8.3)
[2024-08-19 22:24] LABS: Adenovirus PCR Not Detected (NotDetected); Bordetella parapertussis PCR Not Detected (NotDetected); Bordetella pertussis PCR Not Detected (NotDetected); Chlamydia pneumoniae PCR Not Detected (NotDetected); Coronavirus 229E PCR Not Detected (NotDetected); Coronavirus CoV-2 (COVID19)PCR Not Detected (NotDetected); Coronavirus HKU1 PCR Not Detected (NotDetected); Coronavirus NL63 PCR Not Detected (NotDetected); Coronavirus OC43PCR Not Detected (NotDetected); Human Metapneumovirus PCR Not Detected (NotDetected); Influenza A PCR Not Detected (NotDetected); Influenza B PCR Not Detected (NotDetected); Mycoplasma pneumoniae PCR Not Detected (NotDetected); Parainfluenza Virus 1 PCR Not Detected (NotDetected); Parainfluenza Virus 2 PCR Not Detected (NotDetected); Parainfluenza Virus 3 PCR Not Detected (NotDetected); Parainfluenza Virus 4 PCR Not Detected (NotDetected); Respiratory Syncytial VirusPCR Not Detected (NotDetected); Rhinovirus/Enterovirus PCR Not Detected (NotDetected)
[2024-08-19] MEDS: SODIUM CHLORIDE 0.9% 500 ML IV ONE (22:50)
[2024-08-19] MEDS: THIAMINE HCL 100 MG in SYRINGE 9 ML IV STA (22:57)
[2024-08-19] MEDS: FOLIC ACID 1 MG in SYRINGE 9.8 ML IV STA (22:58)
[2024-08-19] MEDS: PROMETHAZINE 12.5 MG/50.5 ML BAG IV STA (23:38)
[2024-08-19] MEDS: METOCLOPRAMIDE HCL INJ 5 MG/ML 2 ML VIAL IV STA (23:40)
[2024-08-19] MEDS: HYDROmorphone INJ 0.5 MG/0.5 ML SYR IV STA (23:41)
[2024-08-19] MEDS: FAMOTIDINE 20MG IV PUSH 20 MG/5 ML SYR IV STA (23:42)
[2024-08-19] MEDS: diphenhydrAMINE 50 MG/ML VIAL IV STA (23:45)
[2024-08-19] MEDS: cefTRIAXone SODIUM 2,000 MG/50 ML BAG IV STA (23:46)
[2024-08-20] MEDS ORDERED: LORazepam 2 MG/1 ML VIAL IV PRN ×3 (01:16)
[2024-08-20] MEDS ORDERED: GABAPENTIN 1200MG ALCOHOL WITHDRAWAL LOAD PO STA (01:16)
[2024-08-20] MEDS ORDERED: ALBUTEROL HFA 8 GM INHALER INH PRN (01:16)
[2024-08-20] MEDS ORDERED: NITROGLYCERIN SL 0.4 MG/TAB TAB SL PRN (01:16)
[2024-08-20] MEDS ORDERED: ONDANSETRON INJ 2 MG/ML 2 ML VIAL IV PRN (01:16)
[2024-08-20] MEDS ORDERED: Ativan IV Alcohol Withdrawal--Active Protocol IV PRN (01:16)
[2024-08-20] MEDS: SODIUM CHLORIDE 0.9% 1,000 ML IV SCH (01:52)
[2024-08-20] MEDS: GABAPENTIN 600 MG TAB PO ONE (01:52)
--- NOTE | 2024-08-20 02:14 | History & Physical Report ---
Date of Service August 19, 2024 Assessment & Plan (1) Nausea & vomiting: Plan: 44-year-old female with past medical history significant for migraine, tobacco use, depression with anxiety, alcoholism and pancreatitis comes because of nausea and vomiting and abdominal discomfort. Patient was recently in the hospital for alcoholism and pancreatitis. Patient states the last drink was about a week ago. Last few days she having lot of nausea/ vomiting and could not drink anything. Having mild abdominal discomfort. Having chills. No fevers. No headache. No runny nose or sore throat. No diarrhea. Micturating okay. Hemodynamics are okay. Nausea and vomiting History of alcoholism Possible gastritis IV Pepcid, IV fluids, IV antiemetics as needed If not improving will get imaging studies Possible pancreatitis Lipase 440 Recently was in the hospital for pancreatitis Says last alcohol drink was 1 week ago Denies any significant abdominal pain If any concern will get CAT scan Normal saline 200 mL/h Close monitor Alcoholism Patient states last time she drank was 1 week ago Recently in the hospital for alcohol withdrawal Will place on gabapentin alcohol withdrawal protocal and IV Ativan as needed Received thiamine in the ER Continue IV thiamine and folic acid Hold home gabapentin and restart once taper is done Close monitor UTI Possible contributing to her current symptoms IV Rocephin Will follow cultures ZUHAIR Getting fluids Follow repeat labs Anion gap metabolic acidosis Mostly from dehydration and starvation ketosis Monitor the labs Prolonged QTc last admission hydroxyzine dose was reduced Follow EKGs Migraines Continue home Topamax Anxiety/mood disorder Continue Zoloft On amitriptyline nightly as needed hydroxyzine as needed Tobacco use Occasional smoking Requesting nicotine patch DVT prophylaxis Heparin subcu Disposition Med/telemetry Full code History of Present Illness Chief Complaint: Nausea and vomiting and abdominal discomfort Primary Care Provider: Aj Gaston MD 44-year-old female with past medical history significant for migraine, tobacco use, depression with anxiety, alcoholism and pancreatitis comes because of nausea and vomiting and abdominal discomfort. Patient was recently in the hospital for alcoholism and pancreatitis. Patient states the last drink was about a week ago. Last few days she having lot of nausea/ vomiting and could not drink anything. Having mild abdominal discomfort. Having chills. No fevers. No headache. No runny nose or sore throat. No diarrhea. Micturating okay. Hemodynamics are okay. Past medical history. As mentioned above Past surgical history. Dental surgery. Left breast biopsy ultrasound-guided. Social history. 0.5 pack a day smoking for 20 years. As per epic drinks 8-10 shots per day. As per patient last drink was about a week ago. No drug use Family history. Father has history of alcoholism. A-fib. Paternal cousin had breast cancer. Paternal grandfather had prostate cancer. Paternal grandmother has dementia. Allergies Allergy/AdvReac Type Severity Reaction Status Date / Time nickel Allergy Rash Verified 01/06/24 16:22 Home Medications Medication Instructions Recorded Confirmed Type acetaminophen 500 mg tablet 500 - 1,000 mg PO Q6H PRN Pain 08/14/23 08/19/24 History (Tylenol Extra Strength) albuterol sulfate 90 mcg/actuation 2 puff inhalation QID PRN 08/14/23 08/19/24 History aerosol inhaler (Ventolin HFA) Shortness Of Breath Or Wheezing gabapentin 300 mg capsule 300 mg PO TID 01/06/24 08/19/24 History amitriptyline 100 mg tablet 125 mg PO HS PRN Sleep 03/15/24 08/19/24 History sertraline 50 mg tablet 100 mg PO QAM 03/15/24 08/19/24 History torsemide 10 mg tablet 10 mg PO QAM 03/15/24 08/19/24 History topiramate 100 mg tablet 100 mg TID 07/25/24 08/19/24 History topiramate 25 mg tablet 25 mg BID 07/25/24 08/19/24 History hydroxyzine pamoate 100 mg capsule 50 mg (1/2 x 100 mg) PO TID PRN 07/28/24 08/19/24 Rx Anxiety #0 caps magnesium oxide 400 mg (241.3 mg 400 mg PO BID #6 tabs 07/28/24 08/19/24 Rx magnesium) tablet potassium chloride 20 mEq 20 meq PO DAILY #3 tabs 07/29/24 08/19/24 Rx tablet,extended release hydroxyzine HCl 50 mg tablet 50 mg PO TID PRN Anxiety 08/19/24 08/19/24 History Past Med/Surg History Problem List (Updated 08/20/24 @ 00:12 by Damion Espinosa MD) ZUHAIR (acute kidney injury) (Acute) Acute dehydration (Acute) Nausea & vomiting (Acute) History of alcohol dependence (Acute) Acute alcoholic pancreatitis (Acute) Pancreatitis without necrosis or infection Vomiting (Acute) ZUHAIR (acute kidney injury) (Acute) Alcohol withdrawal (Acute) Alcohol abuse (Acute) Hypomagnesemia (Acute) Tachycardia (Acute) Alcohol withdrawal Alcoholic ketoacidosis (Acute) Contusion (Acute) Alcoholic intoxication (Acute) Alcohol abuse (Acute) Weakness (Acute) Hypomagnesemia (Acute) Hallucinations (Acute) Alcohol abuse (Acute) S/P nasal surgery septoplasty and rhinoplasty-both w/Dr. Castañeda Allergic rhinitis Abnormal uterine bleeding ADD (attention deficit disorder) Insomnia Restless leg Anxiety and depression (Chronic) Fatty liver (Chronic) Alcohol dependence (Chronic) Medical History Tobacco use disorder Intractable nausea and vomiting Depression Anxiety Surgical History H/O wisdom tooth extraction Family History Aunt Breast cancer, Onset Age: 65 paternal Asthma maternal Grandfather (Paternal) Prostate cancer Aunt Allergies maternal Family/Other Allergies cousins Asthma cousins Other No family history of adverse response to anesthesia No family history of bleeding disorder Denies family history of Ovarian cancer Colorectal cancer Social History Smoking Status: Current every day smoker Tobacco Type: Cigarettes Age Started Using Tobacco: 20; packs per day: 0.5; Cigarettes Per Day: 4; Second Hand Exposure: No; Do You Dip or Chew Tobacco: No; Tobacco Cessation Education Requested by Patient: No Hx Alcohol Use: Yes Alcohol type: hard liquor Hx Substance Use: No Preferred Language: Armenian 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 Ability: Effective Colorist Dyer Required: No Beliefs That Will Affect Care: None marital status: Single Current Living Situation: Alone Other Information That Helps Us Care for You: No Feels Safe at Home: Yes Safety Concerns: Feels Safe At This Time Assistive Devices: None Review of Systems Review of Systems: All systems reviewed & are unremarkable except as noted in HPI & below Physical Exam Physical Exam: General-Having chills. Head- atraumatic Eyes- PERRL. ENT- oropharynx clear Neck- supple, no JVD. Lungs- clear to auscultation no wheezing or crackles Heart- regular rhythm; no murmur, no gallop. Abdomen- normal bowel sounds, soft, nontender, no distension Extremities- no pretibial edema, no erythema seen. Neuro- alert, oriented PERRL, no facial palsy; no dysarthria; moves extremities Results & Data Results & Data Vital Signs (Past 12 Hours) Vital Signs Temp Pulse Resp BP Pulse Ox 08/19/24 22:30 101 H 20 102/74 100 08/19/24 21:06 105 H 08/19/24 20:40 37 C 108 H 17 145/84 H 100 Diagnostic Findings Laboratory Results WBC 10.44 K/ul (4.8-10.8) 08/19/24 21:06 RBC 4.50 M/uL (4.20-5.40) 08/19/24 21:06 Hgb 15.0 g/dl (12.0-16.0) 08/19/24 21:06 Hct 43.7 % (37.0-47.0) 08/19/24 21:06 MCV 97.1 fL (80.0-100.0) 08/19/24 21:06 MCH 33.3 pg (25.0-34.0) 08/19/24 21:06 MCHC 34.3 g/dL (32.0-36.0) 08/19/24 21:06 RDW Std Deviation 51.4 fL (36.4-46.3) H 08/19/24 21:06 RDW Coeff of Edgar 14.2 % (11.5-14.5) 08/19/24 21:06 Plt Count 328 K/uL (130-400) 08/19/24 21:06 MPV 9.4 fL (9.4-12.4) 08/19/24 21:06 Immature Gran % (Auto) 0.5 % 08/19/24 21:06 Neut % (Auto) 86.7 % 08/19/24 21:06 Lymph % (Auto) 7.7 % 08/19/24 21:06 Tyler % (Auto) 4.6 % 08/19/24 21:06 Eos % (Auto) 0.3 % 08/19/24 21:06 Baso % (Auto) 0.2 % 08/19/24 21:06 Neut # (Auto) 9.06 K/uL (1.40-6.50) H 08/19/24 21:06 Lymph # (Auto) 0.80 K/uL (1.20-3.40) L 08/19/24 21:06 Tyler # (Auto) 0.48 K/uL (0.11-0.59) 08/19/24 21:06 Eos # (Auto) 0.03 K/uL (0.00-0.50) 08/19/24 21:06 Baso # (Auto) 0.02 K/uL (0.00-0.20) 08/19/24 21:06 Immature Gran # (Auto) 0.05 K/uL (0.01-0.20) 08/19/24 21:06 Sodium 133 mmol/L (136-145) L 08/19/24 21:06 Potassium 4.4 mmol/L (3.5-5.1) 08/19/24 21:06 Chloride 91 mmol/L (98-107) L 08/19/24 21:06 Carbon Dioxide 15 mmol/L (21-32) L 08/19/24 21:06 Anion Gap 27 (3-11) H 08/19/24 21:06 BUN 19 mg/dl (6-23) 08/19/24 21:06 Creatinine 1.21 mg/dl (0.6-1.2) H 08/19/24 21:06 Est Cr Clr Drug Dosing 49.1 ml/min 08/19/24 21:06 eGFR 57.39 08/19/24 21:06 BUN/Creatinine Ratio 15.7 (10-20) 08/19/24 21:06 Glucose 190 mg/dl (70-99(Fasting)) H 08/19/24 21:06 Calcium 11.1 mg/dl (8.6-10.3) H 08/19/24 21:06 Total Bilirubin 0.9 mg/dl (0.2-1.0) 08/19/24 21:06 AST 45 U/L (13-39) H 08/19/24 21:06 ALT 27 U/L (7-52) 08/19/24 21:06 Alkaline Phosphatase 110 U/L (34-104) H 08/19/24 21:06 Total Protein 9.1 gm/dl (6.0-8.3) H 08/19/24 21:06 Albumin 5.5 gm/dl (3.4-5.0) H 08/19/24 21:06 Globulin 3.6 gm/dl (2.5-4.0) 08/19/24 21:06 Albumin/Globulin Ratio 1.5 (0.9-2) 08/19/24 21:06 Lipase 441 U/L (11-82) H 08/19/24 21:06 Urine Color Yellow 08/19/24 21:06 Urine Appearance Cloudy (Clear) A 08/19/24 21: Urine pH 5.5 (4.5-7.5) 08/19/24 21: Ur Specific [place] 1.018 (1.000-1.030) 08/19/24 21: Urine Protein 2+ (Negative) H 08/19/24 21:06 Urine Glucose (UA) Negative (Negative) 08/19/24 21: Urine Ketones 4+ (Negative) H 08/19/24 21:06 Urine Blood Trace (Negative) H 08/19/24 21:06 Urine Nitrite Negative (Negative) 08/19/24 21: Urine Bilirubin Negative (Negative) 08/19/24 21: Urine Urobilinogen Negative (Negative) 08/19/24 21:06 Ur Leukocyte Esterase Trace (Negative) H 08/19/24 21:06 Urine WBC (Auto) 0-5 /hpf (0-5) 08/19/24 21:06 Urine RBC (Auto) 3-5 /hpf (0-2) H 08/19/24 21:06 U Hyaline Cast (Auto) >20 /lpf (0-2) H 08/19/24 21:06 U Epithel Cells (Auto) 6-10 /hpf (0-2) H 08/19/24 21:06 Urine Bacteria (Auto) 2+ (None Seen) H 08/19/24 21:06 Hyaline Casts Present /lpf (None Presnt) A 08/19/24 21: Ethyl Alcohol mg/dL < 10.0 mg/dl (<10.0) 08/19/24 21:06 Adenovirus (PCR) Not Detected (NotDetected) 08/19/24 21:06 B. pertussis DNA (PCR) Not Detected (NotDetected) 08/19/24 21:06 B.parapertussis DNA PCR Not Detected (NotDetected) 08/19/24 21:06 C. pneumoniae DNA (PCR) Not Detected (NotDetected) 08/19/24 21:06 Coronavirus OC43 (PCR) Not Detected (NotDetected) 08/19/24 21:06 Coronavirus HKU1 (PCR) Not Detected (NotDetected) 08/19/24 21:06 Coronavirus 229E (PCR) Not Detected (NotDetected) 08/19/24 21:06 SARS-CoV-2 (PCR) Not Detected (NotDetected) 08/19/24 21:06 Coronavirus NL63 (PCR) Not Detected (NotDetected) 08/19/24 21:06 Human Metapneumovir PCR Not Detected (NotDetected) 08/19/24 21:06 Influenza Type A (PCR) Not Detected (NotDetected) 08/19/24 21:06 Influenza Type B (PCR) Not Detected (NotDetected) 08/19/24 21:06 M. pneumoniae (PCR) Not Detected (NotDetected) 08/19/24 21:06 Parainfluenza 1 (PCR) Not Detected (NotDetected) 08/19/24 21:06 Parainfluenza 2 (PCR) Not Detected (NotDetected) 08/19/24 21:06 Parainfluenza 3 (PCR) Not Detected (NotDetected) 08/19/24 21:06 Parainfluenza 4 (PCR) Not Detected (NotDetected) 08/19/24 21:06 RSV (PCR) Not Detected (NotDetected) 08/19/24 21:06 Entero/Rhino (PCR) Not Detected (NotDetected) 08/19/24 21:06 ECG Additional Comments: ECG. Sinus rhythm with premature supplementary complexes rate of 82. T wave abnormality inferior leads Code Status & VTE Plan VTE Prophylaxis Plan VTE Prophylaxis will be ordered: Yes (1) Nausea & vomiting Vomiting type: unspecified Qualified Code(s): R11.2 - Nausea with vomiting, unspecified
[2024-08-20 05:59] LABS: BUN Creatinine Ratio 17.1 (10-20); Calcium 8.7 mg/dl (8.6-10.3); Creatinine Clr Calc Pharmacy 78.9 ml/min; Magnesium 1.7 mg/dl (1.7-2.4); Potassium 3.9 mmol/L (3.5-5.1)
[2024-08-20] MEDS: NICOTINE 7 MG/24 HR TDSY TD SCH (06:25)
[2024-08-20] MEDS: METOCLOPRAMIDE HCL INJ 5 MG/ML 2 ML VIAL IV PRN (06:26)
[2024-08-20] MEDS: HYDROmorphone INJ 0.5 MG/0.5 ML SYR IV PRN ×2 (06:26→15:25)
[2024-08-20 06:32] LABS: Basophils # (auto) 0.02 K/uL (0.00-0.20); Basophils % (auto) 0.2 %; Eosinophils # (auto) 0.12 K/uL (0.00-0.50); Eosinophils % (auto) 1.3 %; Hematocrit (blood only) 32.7 % (37.0-47.0); Immature Granulocytes # (auto) 0.03 K/uL (0.01-0.20); Immature Granulocytes % (auto) 0.3 %; Lymphocytes # (auto) 2.13 K/uL (1.20-3.40); Mean Corpuscular Hemoglobin 32.5 pg (25.0-34.0); Mean Corpuscular Hgb Conc 33.6 g/dL (32.0-36.0); Mean Corpuscular Volume 96.7 fL (80.0-100.0); Monocytes % (auto) 6.5 %; Neutrophils # (auto) 6.37 K/uL (1.40-6.50); Neutrophils % (auto) 68.7 %; Platelet Count 209 K/uL (130-400); RDW Coefficient of Variation 14.1 % (11.5-14.5); RDW Standard Deviation 50.8 fL (36.4-46.3); Red Blood Count 3.38 M/uL (4.20-5.40); White Blood Count 9.27 K/ul (4.8-10.8)
--- NOTE | 2024-08-20 07:24 | Electrocardiogram Report ---
Test Reason : Blood Pressure : */* mmHG Vent. Rate : 82 BPM Atrial Rate : 82 BPM P-R Int : 124 ms QRS Dur : 74 ms QT Int : 342 ms P-R-T Axes : 119 84 -9 degrees QTcB Int : 399 ms Poor data quality, interpretation may be adversely affected Sinus rhythm with Premature supraventricular complexes T wave abnormality, consider inferior ischemia Abnormal ECG When compared with ECG of 28-Jul-2024 16:59, Premature supraventricular complexes are now Present Non-specific change in ST segment in Inferior leads Confirmed by Kp Redman ([id number]) on 08/20/2024 7:24:18 AM Referred By: REFERRED SELF Confirmed By: Kp Redman
[2024-08-20] MEDS: HEPARIN SOD 5,000 UNIT/0.5 ML VIAL SQ SCH (08:00)
[2024-08-20] MEDS: TOPIRAMATE 100 MG TAB PO SCH (08:01)
[2024-08-20] MEDS: TOPIRAMATE 25 MG TAB PO SCH (08:01)
[2024-08-20] MEDS: MAGNESIUM OXIDE 400 MG TAB PO SCH (08:01)
[2024-08-20] MEDS: SERTRALINE HCL 100 MG TABLET PO SCH (08:01)
[2024-08-20] MEDS: GABAPENTIN 600 MG TAB PO SCH ×2 (08:01→20:16)
[2024-08-20 08:57] LABS: INR 1.1 (0.9-1.1); Partial Thromboplastin Ratio 0.9; Partial Thromboplastin Time 23 Seconds (21-31); Prothrombin Time 11.4 Seconds (9.0-12.0)
[2024-08-20] MEDS: FAMOTIDINE 20MG IV PUSH 20 MG/5 ML SYR IV SCH (09:54)
--- NOTE | 2024-08-20 10:41 | Hospitalist Progress Note ---
Date of Service August 20, 2024 Assessment & Plan (1) Nausea & vomiting: Plan: 44-year-old female with past medical history significant for migraine, tobacco use, depression with anxiety, alcoholism and pancreatitis comes because of nausea and vomiting and abdominal discomfort. Patient was recently in the hospital for alcoholism and pancreatitis. Patient states the last drink was about a week ago. Last few days she having lot of nausea/ vomiting and could not drink anything. Having mild abdominal discomfort. Having chills. No fevers. No headache. No runny nose or sore throat. No diarrhea. Micturating okay. Hemodynamics are okay. Acute Pancreatitis History of multiple admission with alcohol use disorder, alcohol withdrawal and pancreatitis Recent admission on 07/27-07/28 with alcoholic pancreatitis Lipase elevated on admission CT abdomen concerning for recurrent pancreatitis Advance diet to low fat Decrease iv fluid rate to 100cc/hr. Continue IV Pepcid Pain control with Dilaudid History of alcohol use disorder Patient states last time she drank was 1 week ago Recently in the hospital for alcohol withdrawal on gabapentin alcohol withdrawal protocal and IV Ativan as needed Received thiamine in the ER Continue IV thiamine and folic acid Acute UTI Possible contributing to her current symptoms IV Rocephin Will follow cultures Acute Kidney Injury- resolved- Received IV fluids Anion gap metabolic acidosis- Mostly from dehydration and starvation ketosis, resolved Prolonged QTc last admission EKG during this hospitalization shows normal sinus rhythm; QTc of 399. Nonspecific ST and T wave changes. hydroxyzine dose was reduced Follow EKGs Migraines Continue home Topamax Anxiety/mood disorder Continue Zoloft On amitriptyline nightly as needed hydroxyzine as needed Tobacco use Occasional smoking Requesting nicotine patch DVT prophylaxis Heparin subcu Disposition Med/telemetry Full code Time spent evaluating patient, direct bedside care, chart review, placing orders, interpretation of diagnostic studies, discussion with consultants, patient, and family members, as well as other required patient management activities is 50 minutes Please note the above document was generated using voice recognition software. It may contain grammatical, syntax or spelling errors. Any formal questions or concerns about the content, text or information contained within the body of this dictation should be directly addressed to the provider for clarification Admission and Anticipated Discharge Date Admission Date: August 19, 2024 Subjective Patient seen and examined at bedside She is comfortable; not in distress Reports mild abdominal discomfort, nausea. Alcohol withdrawal symptoms are minimal; Review of Systems Review of Systems: All systems reviewed & are unremarkable except as noted in Subjective Physical Exam Physical Exam: Constitutional: Alert oriented x 3; not in distress. Respiratory: Bilateral vesicular breath sound. Cardiovascular: RRR, no murmur, no edema Vessels: no JVD or carotid bruit Chest: normal inspection of chest Abdomen: normal bowel sounds, soft, nontender, no hepatosplenomegaly Musculoskeletal: no cyanosis or clubbing, extremities motor strength 5/5 Skin: no rashes, warm and dry normal turgor Neurologic: PERRL, EOMI, accommodation nl, no face palsy, no dysarthria CN's II- XI intact bilaterally and moves all extremities Psychiatric: A+Ox3, euthymic affect Results & Data Results & Data Vital Signs (Past 12 Hours) Vital Signs Temp Pulse Pulse Resp BP BP Pulse Ox 08/20/24 07:34 36.7 C 80 14 96/60 L 96 08/20/24 07:16 90 08/20/24 02:41 83 08/20/24 01:16 36.4 C 19 115/75 98 08/20/24 00:55 108 H 18 107/73 97 08/20/24 00:12 97 H 18 107/73 99 O2 Del Method 08/20/24 07:34 Room Air 08/20/24 07:16 08/20/24 02:41 08/20/24 01:16 Room Air 08/20/24 00:55 08/20/24 00:12 (1) Nausea & vomiting Vomiting type: unspecified Qualified Code(s): R11.2 - Nausea with vomiting, unspecified
[2024-08-20] MEDS: OPTIRAY 320 100ml IV ONE (11:10)
--- NOTE | 2024-08-20 11:33 | CT Scan Report ---
CT OF THE ABDOMEN AND PELVIS WITH CONTRAST CLINICAL HISTORY: concern for acute pancreatitis COMPARISON STUDY: CT of the abdomen and pelvis July 26, 2024. TECHNIQUE: Following IV administration of 94 mL of Optiray, axial images of the abdomen and pelvis we re obtained from the lung bases to the proximal femurs. Images were reviewed in the axial, sagittal, and coronal planes. IV contrast was administered without complication. Automated exposure control wa s utilized for the study. A dose lowering technique was utilized adhering to the principles of ALARA . CT DOSE: 373.86 mGy.cm FINDINGS: Lung bases are unremarkable. No pneumatosis, free air or portal venous gas is present. The pancreatic tail is edematous. A small amount of fluid adjacent to the pancreatic tail is noted. This has decreased when compared to CT of July 26, 2024. The gland enhances homogeneously. There are no peripancreatic fluid collection is present is no biliary or pancreatic ductal dilatation. Probable h epatic steatosis. The spleen, adrenal glands and kidneys are normal. There is no hydronephrosis. The appendix is normal. Corpus luteal cyst within the right ovary measures 1.1 cm. There is no evidence f or a bowel obstruction. Pelvic calcifications represent phleboliths. IMPRESSION: 1. Fluid adjacent to the pancreatic tail, decreased in amount since CT of July 26, 2024. The findi ngs favor residual pancreatitis however recurrent acute pancreatitis could appear similar. No evidenc e for gland necrosis. No peripancreatic fluid collection 2. No bowel obstruction. No bowel wall thickening. Normal appendix. ACT 112: Negative or not required by law. Electronically signed by: Wander Edwards M.D. 08/20/2024 11:30 AM
[2024-08-20] MEDS: oxyCODONE HCL IR 5 MG TAB (IMMEDIATE RELEASE) PO PRN (12:19)
[2024-08-20] MEDS: cefTRIAXone SODIUM 2,000 MG/50 ML BAG IV SCH (20:15)
[2024-08-20] MEDS: MELATONIN 3 MG TAB PO PRN (20:16)
[2024-08-21 07:28] VITALS: RESP 18
--- NOTE | 2024-08-21 08:06 | Hospitalist Progress Note ---
Date of Service August 21, 2024 Assessment & Plan (1) Nausea & vomiting: Plan: 44-year-old female with past medical history significant for migraine, tobacco use, depression with anxiety, alcoholism and pancreatitis comes because of nausea and vomiting and abdominal discomfort. Patient was recently in the hospital for alcoholism and pancreatitis. Patient states the last drink was about a week ago. Last few days she having lot of nausea/ vomiting and could not drink anything. Having mild abdominal discomfort. Having chills. No fevers. No headache. No runny nose or sore throat. No diarrhea. Micturating okay. Hemodynamics are okay. Acute Pancreatitis History of multiple admission with alcohol use disorder, alcohol withdrawal and pancreatitis Recent admission on 07/27-07/28 with alcoholic pancreatitis Lipase elevated on admission CT abdomen concerning for recurrent pancreatitis Patient managed with conservative care with IV fluids, pain control, advance her diet. Pain overall improved. Plan to discharge home on low-fat diet with instructions to follow-up with PCP. History of alcohol use disorder Patient states last time she drank was 1 week ago Recently in the hospital for alcohol withdrawal on gabapentin alcohol withdrawal protocal and IV Ativan as needed Received thiamine in the ER Continue IV thiamine and folic acid No signs or symptoms of withdrawal at the time of the discharge. Acute UTI- ruled out Treated with empiric antibiotic which was stopped after urine culture did not grow anything Acute Kidney Injury- resolved- Received IV fluids Anion gap metabolic acidosis- Mostly from dehydration and starvation ketosis, resolved Prolonged QTc last admission EKG during this hospitalization shows normal sinus rhythm; QTc of 399. Nonspecific ST and T wave changes. hydroxyzine dose was reduced Follow EKGs Migraines Continue home Topamax Anxiety/mood disorder Continue Zoloft On amitriptyline nightly as needed hydroxyzine as needed Tobacco use Occasional smoking Requesting nicotine patch DVT prophylaxis Heparin subcu Disposition Med/telemetry Full code Time spent evaluating patient, direct bedside care, chart review, placing orders, interpretation of diagnostic studies, discussion with consultants, patient, and family members, as well as other required patient management activities is 50 minutes Please note the above document was generated using voice recognition software. It may contain grammatical, syntax or spelling errors. Any formal questions or concerns about the content, text or information contained within the body of this dictation should be directly addressed to the provider for clarification Admission and Anticipated Discharge Date Admission Date: August 19, 2024 Subjective Patient seen and examined at bedside She is comfortably lying in the bed without any difficulty She reports that the abdominal pain has slightly improved No significant events overnight Review of Systems Review of Systems: All systems reviewed & are unremarkable except as noted in Subjective Physical Exam Physical Exam: Constitutional: Alert oriented x 3; not in distress. Respiratory: Bilateral vesicular breath sound. Cardiovascular: RRR, no murmur, no edema Vessels: no JVD or carotid bruit Chest: normal inspection of chest Abdomen: normal bowel sounds, soft, nontender, no hepatosplenomegaly Musculoskeletal: no cyanosis or clubbing, extremities motor strength 5/5 Skin: no rashes, warm and dry normal turgor Neurologic: PERRL, EOMI, accommodation nl, no face palsy, no dysarthria CN's II- XI intact bilaterally and moves all extremities Psychiatric: A+Ox3, euthymic affect Results & Data Results & Data Vital Signs (Past 12 Hours) Vital Signs Temp Pulse Pulse Resp BP BP Pulse Ox 08/21/24 07:27 36.6 C 76 18 104/72 99 08/21/24 07:11 86 08/21/24 03:52 36.4 C L 82 20 80/55 L 96 08/20/24 23:45 36.7 C 87 20 96/65 L 96 08/20/24 23:18 89 08/20/24 20:07 36.7 C 81 20 101/68 99 O2 Del Method 08/21/24 07:27 Room Air 08/21/24 07:11 08/21/24 03:52 Room Air 08/20/24 23:45 Room Air 08/20/24 23:18 08/20/24 20:07 Room Air (1) Nausea & vomiting Vomiting type: unspecified Qualified Code(s): R11.2 - Nausea with vomiting, unspecified
[2024-08-21] MEDS: METHOCARBAMOL 500 MG TABLET PO SCH (11:45)
[2024-08-21 12:06] VITALS: O2SAT 100
--- NOTE | 2024-08-21 12:43 | Discharge Summary ---
Date of Service August 21, 2024 Admission HPI Per Admitting Provider 44-year-old female with past medical history significant for migraine, tobacco use, depression with anxiety, alcoholism and pancreatitis comes because of nausea and vomiting and abdominal discomfort. Patient was recently in the hospital for alcoholism and pancreatitis. Patient states the last drink was about a week ago. Last few days she having lot of nausea/ vomiting and could not drink anything. Having mild abdominal discomfort. Having chills. No fevers. No headache. No runny nose or sore throat. No diarrhea. Micturating okay. Hemodynamics are okay. Past medical history. As mentioned above Past surgical history. Dental surgery. Left breast biopsy ultrasound-guided. Social history. 0.5 pack a day smoking for 20 years. As per [employer] drinks 8-10 shots per day. As per patient last drink was about a week ago. No drug use Family history. Father has history of alcoholism. A-fib. Paternal cousin had breast cancer. Paternal grandfather had prostate cancer. Paternal grandmother has dementia. Admission Exam Per Admitting Provider General-Having chills. Head- atraumatic Eyes- PERRL. ENT- oropharynx clear Neck- supple, no JVD. Lungs- clear to auscultation no wheezing or crackles Heart- regular rhythm; no murmur, no gallop. Abdomen- normal bowel sounds, soft, nontender, no distension Extremities- no pretibial edema, no erythema seen. Neuro- alert, oriented PERRL, no facial palsy; no dysarthria; moves extremities Principal Diagnosis Acute Pancreatitis Discharge Exam Constitutional: Alert oriented x 3; not in distress. Respiratory: Bilateral vesicular breath sound. Cardiovascular: RRR, no murmur, no edema Vessels: no JVD or carotid bruit Chest: normal inspection of chest Abdomen: normal bowel sounds, soft, nontender, no hepatosplenomegaly Musculoskeletal: no cyanosis or clubbing, extremities motor strength 5/5 Skin: no rashes, warm and dry normal turgor Neurologic: PERRL, EOMI, accommodation nl, no face palsy, no dysarthria CN's II- XI intact bilaterally and moves all extremities Psychiatric: A+Ox3, euthymic affect Discharge Data Allergies Allergy/AdvReac Type Severity Reaction Status Date / Time nickel Allergy Rash Verified 01/06/24 16:22 Consultations 08/19/24 22:12 ED Decision to Admit Stat Ordered Studies 08/20/24 10:36 CT Abd and Pelvis [CT abd pelvis IV con only] Urgent Hospital Course (1) Nausea & vomitin-year-old female with past medical history significant for migraine, tobacco use, depression with anxiety, alcoholism and pancreatitis comes because of nausea and vomiting and abdominal discomfort. Acute Pancreatitis History of multiple admission with alcohol use disorder, alcohol withdrawal and pancreatitis Recent admission on 07/27-07/28 with alcoholic pancreatitis Lipase elevated on admission CT abdomen and pelvis showed decrease amount of fluid adjacent to pancreatic tail; findings favor residual pancreatitis but recurrent pancreatitis can appear similar. No evidence of gland necrosis. Patient managed with conservative care with IV fluids, pain control, advance her diet. Pain overall improved. Plan to discharge home on low-fat diet with instructions to follow-up with PCP. Patient recommended to follow low-fat diet. History of alcohol use disorder Patient states last time she drank was 1 week ago Recently in the hospital for alcohol withdrawal No signs or symptoms of alcohol withdrawal during the hospitalization. Acute UTI- ruled out Treated with empiric antibiotic which was stopped after urine culture did not grow anything Acute Kidney Injury- resolved- Received IV fluids Anion gap metabolic acidosis- Mostly from dehydration and starvation ketosis, resolved Please note the above document was generated using voice recognition software. It may contain grammatical, syntax or spelling errors. Any formal questions or concerns about the content, text or information contained within the body of this dictation should be directly addressed to the provider for clarification Total Time Total Time Spent Total Time Spent (In Minutes): 34 Total Time Includes: Examination of the Patient, Discharge Planning, Medication Reconciliation, 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 With Other Providers and Other Discharge Plan Discharge Items Patient Disposition: Home - Self-Care Reason For Visit: N/V, ZUHAIR, ALOCHOLISM Discharge Diagnosis: Acute pancreatitis Alcohol use disorder Acute kidney injury Activity: Resume your previous activity Non-emergency contact: Primary Care Provider Call non-emergency contact if: you have any medication questions Follow-up/Referrals: Aj Gaston MD [Primary Care Provider] - (Date & Time 08/28/2024 10:20 AM Provider Jolynn Aguilar MD Department General Internal Medicine [facility] ) Diet: Low Fat Addtl Attending Provider Instructions: You were admitted to the hospital due to acute pancreatitis for which you were treated with IV fluids, pain medication and supportive care. Please continue to follow low-fat diet. Following medication has been prescribed; Take gabapentin 400 mg 3 times daily; stop taking previous 300 mg prescription. You are also prescribed methocarbamol 500 mg as needed 3 times a day for spasm. Take [id number] Tylenol for pain; if pain is severe-take oxycodone 5 mg as needed. Please do outpatient physical therapy as discussed. Please follow-up with your primary care doctor Pending Studies at Discharge: No Stand-Alone Forms: My [facility], Smoking Cessation Medications and DC Order Prescriptions: New methocarbamol 500 mg Tablet 500 mg PO TID PRN (Reason: spasm) 5 Days Qty: 15 0RF gabapentin 400 mg capsule 400 mg PO TID Qty: 90 0RF oxycodone 5 mg tablet 5 mg PO Q8H PRN (Reason: pain) Qty: 10 0RF Continued acetaminophen [Tylenol Extra Strength] 500 mg Tablet 500 - 1,000 mg PO Q6H PRN (Reason: Pain) albuterol sulfate [Ventolin HFA] 90 mcg/actuation Hfa Aerosol Inhaler 2 puff INHALATION QID PRN (Reason: Shortness Of Breath Or Wheezing) amitriptyline 100 mg tablet 125 mg PO HS PRN (Reason: Sleep) torsemide 10 mg tablet 10 mg PO QAM Hold Instructions: Hold for now. Can use as needed if leg edema worsens. Discuss with your physician for further instructions. sertraline 50 mg tablet 100 mg PO QAM topiramate 25 mg tablet 25 mg BID topiramate 100 mg tablet 100 mg TID magnesium oxide 400 mg (241.3 mg magnesium) Tablet 400 mg PO BID Qty: 6 0RF hydroxyzine pamoate 100 mg capsule 50 mg PO TID PRN (Reason: Anxiety) Qty: 0 0RF potassium chloride 20 mEq tablet extended release 20 meq PO DAILY Qty: 3 0RF hydroxyzine HCl 50 mg tablet 50 mg PO TID PRN (Reason: Anxiety) Discontinued gabapentin 300 mg capsule 300 mg PO TID Hold Instructions: Until further recommendations from your primary care phy sician Discharge Orders: Discharge Order (Routine); Ordered 08/21/24 Ordered By: Sotero Porter Admission Data Admit Date/Time: 08/19/24 23:35 Attending Provider: Devkota,Sotero Admit Provider: Mo Bueno Primary Care Provider: Aj Gaston Other Providers: Mo Bueno
[2024-08-21 15:09] VITALS: BP 94/65; PULSE 84; TEMP 98.1
--- NOTE | 2024-08-21 15:52 | Electrocardiogram Report ---
Test Reason : Blood Pressure : */* mmHG Vent. Rate : 77 BPM Atrial Rate : 77 BPM P-R Int : 146 ms QRS Dur : 84 ms QT Int : 388 ms P-R-T Axes : 47 27 36 degrees QTcB Int : 439 ms Normal sinus rhythm Normal ECG When compared with ECG of 19-Aug-2024 20:57, Premature supraventricular complexes are no longer Present T wave inversion no longer evident in Inferior leads T wave inversion no longer evident in Anterior leads Confirmed by Kp Redman ([id number]) on 08/21/2024 3:52:38 PM Referred By: REFERRED SELF Confirmed By: Kp Redman
[2024-08-22] MEDS ORDERED: GABAPENTIN 600 MG TAB PO SCH
[2024-08-23] MEDS ORDERED: GABAPENTIN 600 MG TAB PO SCH (12:00)
== END 2024-08-21 18:36 | disposition home or self-care (01) | DRG 439 ==
LOC: ED 20:37 → 2W 23:35

== ENCOUNTER 2024-11-27 17:02 | Inpatient (IN) ==
--- NOTE | 2024-11-27 17:56 | Emergency Department Note ---
Impression & Plan Alcohol intoxication, Back pain ED Provider Note Provider: Jeffrey No MD CHIEF COMPLAINT: Alcohol use, pancreatitis HISTORY OF PRESENT ILLNESS: Patient is a 44-year-old female unfortunate history of alcohol abuse as well as pancreatitis in the past presenting here with parents today. Patient evidently has been sober for several months. Mother states she has not heard from her daughter in a day or 2. Was contacted by her today saying she did not feel well and has been drinking alcohol. Patient herself is anxious and does appear intoxicated. Reports use of alcohol today denies any drugs. Denies any significant falls. Reports mid abdominal pain to her back like her prior pancreatitis. Patient reports nausea and vomiting. She feels quite unwell and does have a history of significant withdrawal in the past. Patient evidently has been at a new job and does do some lifting there. Has some chronic back issues. Has been to multiple rehabs and AA in the past and has been on medication to help control anxiety depression as well as back pain. PAST MEDICAL HISTORY: As noted above MEDICATIONS: Reviewed home medication list SOCIAL HISTORY: Significant alcohol use PHYSICAL EXAM: GENERAL: Alert somewhat anxious and intermittently moaning and moving all over the bed. Head: normocephalic and atraumatic EYES: No injection, discharge or icterus. EOMI with mildly dilated pupils. NECK: Trachea midline. ENT: Mucous membranes pink and moist. LUNGS: Airway patent. No retractions or significant tachypnea HEART: Regular tachycardic rate and rhythm. No chest wall tenderness ABDOMEN: Soft and non-tender, without guarding or rebound. No masses appreciable. No significant flank or back tenderness on exam. SKIN: Acyanotic, warm, dry, without rashes EXTREMITIES: Without swelling, tenderness or deformity NEUROLOGICAL: Moving all extremities but is a bit ataxic and clumsy. Able to transition from wheelchair to bed with assistance. No aphasia. No facial droop mildly slurred speech EK bpm sinus tachycardia. No PVC. No acute ST segment elevation or depression with QTc 431. Some nonspecific inferior anterior T wave changes. CONTINUOUS CARDIAC MONITORING: was ordered and showed a heart rate of 100s-120s bpm in sinus tachycardia Patient's laboratory studies and imaging reviewed. Differential includes Infection, dehydration, metabolic abnormality pancreatitis, gastritis, ICH, obstruction, cholecystitis, GI bleed,, hypo/hyperglycemia, electrolyte disturbance, anemia, hypoxia, cardiac sources, intracerebral event, toxicologic, neurologic, as well as other pathologies. IMPRESSION/MEDICAL DECISION MAKING: Patient still appears intoxicated. Recently relapsed from alcohol use. Given some Zofran and fluids here. Low threshold for Ativan. Initial triage blood pressure low but upon evaluating the room normal tensive. Afebrile. No secondary trauma reported benign abdomen. No evidence of any head trauma. Patient's mother quite emphatic that she does not want her daughter to have any additional imaging at this time. No reports of any GI bleed but has had some vomiting. Blood work is sent. No significant anemia or leukocytosis. Doubt sepsis. No severe electrolyte abnormalities or signs of renal dysfunction. No transaminitis and normal CK as well as normal troponin. Normal lipase. Alcohol level severely elevated 522. No believe she is in withdrawal yet but seems severely intoxicated. Given the significant elevation in her complaints with the current nausea and vomiting recommend that she stay here for further evaluation. Again patient's mother is continuing to deny any CAT scans at this time aware of the risk including possibly missing life-threatening injuries or bleeding. Likely musculoskeletal back pain but moving well here no acute significant weakness or neurological deficits lower extremities noted. Mother reports concerns about all of her medications and gabapentin usage and as such we will try lidocaine patch and a little bit of Ativan to help calm her but will defer additional. Patient does need to be again monitored here and they were agreeable with this. Mother asked for drug and alcohol resources and did make case management aware. Reached out to the hospitalist team to discuss the case for further care. DIAGNOSIS: Alcohol intoxication, nausea and vomiting, back pain DISPOSITION: Hospitalist will evaluate Past Med/Surg History Problem List (Updated 11/27/24 @ 18:52 by Jeffrey No M.D.) Back pain (Acute) Alcohol intoxication (Acute) ZUHAIR (acute kidney injury) (Acute) Acute dehydration (Acute) Nausea & vomiting (Acute) History of alcohol dependence (Acute) Acute alcoholic pancreatitis (Acute) Pancreatitis without necrosis or infection Vomiting (Acute) ZUHAIR (acute kidney injury) (Acute) Alcohol withdrawal (Acute) Alcohol abuse (Acute) Hypomagnesemia (Acute) Tachycardia (Acute) Alcohol withdrawal Alcoholic ketoacidosis (Acute) Contusion (Acute) Alcoholic intoxication (Acute) Alcohol abuse (Acute) Weakness (Acute) Hypomagnesemia (Acute) Hallucinations (Acute) Alcohol abuse (Acute) S/P nasal surgery septoplasty and rhinoplasty-both w/Dr. Castañeda Allergic rhinitis Abnormal uterine bleeding ADD (attention deficit disorder) Insomnia Restless leg Anxiety and depression (Chronic) Fatty liver (Chronic) Alcohol dependence (Chronic) Medical History Tobacco use disorder Intractable nausea and vomiting Depression Anxiety Surgical History H/O wisdom tooth extraction Family History Aunt Breast cancer, Onset Age: 65 paternal Asthma maternal Grandfather (Paternal) Prostate cancer Aunt Allergies maternal Family/Other Allergies cousins Asthma cousins Other No family history of adverse response to anesthesia No family history of bleeding disorder Denies family history of Ovarian cancer Colorectal cancer Social History Smoking Status: Never smoker Tobacco Type: Cigarettes Age Started Using Tobacco: 20; packs per day: 0.5; Cigarettes Per Day: 4; Second Hand Exposure: No; Do You Dip or Chew Tobacco: No; Hx Alcohol Use: Yes Alcohol type: hard liquor Hx Substance Use: No Preferred Language: Italian 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 Ability: Effective [employer] Required: No Beliefs That Will Affect Care: None marital status: Single Current Living Situation: Alone Feels Safe at Home: Yes Assistive Devices: None Allergies Allergies Allergy/AdvReac Type Severity Reaction Status Date / Time nickel Allergy Rash Verified 01/06/24 16:22 Home Meds Home Medications Medication Instructions Recorded Confirmed amitriptyline 50 mg tablet 125 mg PO HS 11/27/24 11/27/24 duloxetine 60 mg capsule,delayed 60 mg PO DAILY 11/27/24 11/27/24 release gabapentin 400 mg capsule 400 mg PO TID 11/27/24 11/27/24 hydroxyzine pamoate 100 mg capsule 100 mg PO QID PRN Anxiety 11/27/24 11/27/24 lorazepam 1 mg tablet 1 mg PO TID PRN Anxiety 11/27/24 11/27/24 topiramate 100 mg tablet 100 mg PO TID 11/27/24 11/27/24 torsemide 10 mg tablet 10 mg PO DAILY 11/27/24 11/27/24 Results & Data (ED) Vital Signs Vital Signs - 24 hr 11/27/24 17:24 11/27/24 18:01 11/27/24 18:09 Temperature 36.2 C L Temperature Source Temporal Artery Scan Pulse Rate 121 H 125 H 112 H Pulse Rate from SpO2 Sensor Respiratory Rate 22 20 Respiratory Effort / Characteristics Non-Labored Spontaneous Respiratory Depth Normal Blood Pressure 73/58 L Blood Pressure Mean 63 Pulse Oximetry 94 Oxygen Delivery Method Room Air Sepsis Recent Fever Within 48 Hours No Sepsis New/Unexplained Change in Mental Status N/A Sepsis Action Taken by Nursing No Action Required 11/27/24 19:06 11/27/24 20:06 Temperature Temperature Source Pulse Rate 97 H 106 H Pulse Rate from SpO2 Sensor 98 H 103 H Respiratory Rate 15 20 Respiratory Effort / Characteristics Respiratory Depth Blood Pressure Blood Pressure Mean Pulse Oximetry 95 95 Oxygen Delivery Method Sepsis Recent Fever Within 48 Hours Sepsis New/Unexplained Change in Mental Status Sepsis Action Taken by Nursing Laboratory Data 11/27/24 17:38 11/27/24 17:38 Lab Results 11/27/24 11/27/24 11/27/24 Range/Units 17:38 17:40 17:49 WBC 7.86 (4.8-10.8) K/ul RBC 5.06 (4.20-5.40) M/uL Hgb 15.7 (12.0-16.0) g/dl POC Hgb 17.7 H (12.0-16.0) g/dl Hct 45.4 (37.0-47.0) % POC Hct 52 H (37-47) % MCV 89.7 (80.0-100.0) fL MCH 31.0 (25.0-34.0) pg MCHC 34.6 (32.0-36.0) g/dL RDW Std Deviation 41.0 (36.4-46.3) fL RDW Coeff of Edgar 12.5 (11.5-14.5) % Plt Count 271 (130-400) K/uL MPV 9.7 (9.4-12.4) fL Immature Gran % (Auto) 0.5 % Neut % (Auto) 46.3 % Lymph % (Auto) 46.7 % Gilliam % (Auto) 4.7 % Eos % (Auto) 1.0 % Baso % (Auto) 0.8 % Neut # (Auto) 3.64 (1.40-6.50) K/uL Lymph # (Auto) 3.67 H (1.20-3.40) K/uL Gilliam # (Auto) 0.37 (0.11-0.59) K/uL Eos # (Auto) 0.08 (0.00-0.50) K/uL Baso # (Auto) 0.06 (0.00-0.20) K/uL Immature Gran # (Auto) 0.04 (0.01-0.20) K/uL PT 10.3 (9.0-12.0) Seconds INR 0.9 (0.9-1.1) POC Sodium 142 (135-144) mmol/L Sodium 140 (136-145) mmol/L POC Potassium 4.5 (3.3-5.0) mmol/L Potassium 4.5 (3.5-5.1) mmol/L POC Chloride 100 L (101-112) mmol/L Chloride 99 (98-107) mmol/L Carbon Dioxide 27 (21-32) mmol/L POC Total CO2 27 (24-31) mmol/L Anion Gap 14 H (3-11) POC Anion Gap 20.0 (16-25) mmol/L POC BUN 8 (7-18) mg/dl BUN 10 (6-23) mg/dl Creatinine 0.82 (0.6-1.2) mg/dl POC Creatinine 1.3 (0.6-1.3) mg/dl Est Cr Clr Drug Dosing Not Reportable eGFR 91.53 BUN/Creatinine Ratio 12.2 (10-20) Glucose 109 H (70-99(Fasting)) mg/dl POC Glucose (other) 108 H (70-99) mg/dl Calcium 10.3 (8.6-10.3) mg/dl POC Ioniz Calcium Cornel 1.07 L (1.12-1.32) mmol/l Magnesium 2.0 (1.7-2.4) mg/dl Total Bilirubin 0.5 (0.2-1.0) mg/dl AST 44 H (13-39) U/L ALT 33 (7-52) U/L Alkaline Phosphatase 81 (34-104) U/L Total Creatine Kinase 91 (26-192) U/L Troponin I High Sens < 2.3 (0-14) pg/ml Total Protein 8.0 (6.0-8.3) gm/dl Albumin 4.8 (3.4-5.0) gm/dl Globulin 3.2 (2.5-4.0) gm/dl Albumin/Globulin Ratio 1.5 (0.9-2) Lipase 64 (11-82) U/L TSH 1.332 (0.300-4.500) uIu/ml HCG, Qual Negative (Negative) Salicylates < 3.0 L (3.0-30) mg/dl Acetaminophen < 3 L (10-30) ug/ml Ethyl Alcohol mg/dL 522.8 H (<10.0) mg/dl Adenovirus (PCR) Not Detected (NotDetected) B. pertussis DNA (PCR) Not Detected (NotDetected) B.parapertussis DNA PCR Not Detected (NotDetected) C. pneumoniae DNA (PCR) Not Detected (NotDetected) Coronavirus OC43 (PCR) Not Detected (NotDetected) Coronavirus HKU1 (PCR) Not Detected (NotDetected) Coronavirus 229E (PCR) Not Detected (NotDetected) SARS-CoV-2 (PCR) Not Detected (NotDetected) Coronavirus NL63 (PCR) Not Detected (NotDetected) Human Metapneumovir PCR Not Detected (NotDetected) Influenza Type A (PCR) Not Detected (NotDetected) Influenza Type B (PCR) Not Detected (NotDetected) M. pneumoniae (PCR) Not Detected (NotDetected) Parainfluenza 1 (PCR) Not Detected (NotDetected) Parainfluenza 2 (PCR) Not Detected (NotDetected) Parainfluenza 3 (PCR) Not Detected (NotDetected) Parainfluenza 4 (PCR) Not Detected (NotDetected) RSV (PCR) Not Detected (NotDetected) Entero/Rhino (PCR) Not Detected (NotDetected) Administered Medications Discontinued Medications Hydromorphone HCl (Hydromorphone Inj 0.5 Mg/0.5 Ml Syr) 0.25 mg IV NOW STA Stop: 11/27/24 22:02 Last Admin: 11/27/24 22:07 Dose: 0.25 mg Documented By: NRB Sodium Chloride (Nss) 1,000 mls @ 999 mls/hr IV .Q1H1M ONE Stop: 11/27/24 18:33 Last Infusion: 11/27/24 22:04 Dose: Infused Documented By: NRPiedad Admin: 11/27/24 18:04 Dose: 999 mls/hr Documented By: PRICILA Sodium Chloride (Nss) 1,000 mls @ 999 mls/hr IV .Q1H1M ONE Stop: 11/27/24 19:40 Last Admin: 11/27/24 22:00 Dose: 999 mls/hr Documented By: PRICILA Lidocaine (Lidocaine 5% 1 Patch) 1 patch TD NOW STA Stop: 11/27/24 18:51 Last Admin: 11/27/24 18:59 Dose: 1 patch Documented By: PRICILA Lorazepam (Lorazepam 2 Mg/1 Ml Vial) 0.5 mg IV NOW STA Stop: 11/27/24 18:51 Last Admin: 11/27/24 18:59 Dose: 0.5 mg Documented By: PRICILA Morphine Sulfate (Morphine Sulfate 2 Mg/Ml Carp) 2 mg IV NOW STA Stop: 11/27/24 18:43 Last Admin: 11/27/24 19:09 Dose: Not Given Documented By: PRICILA Ondansetron HCl (Ondansetron Inj 2 Mg/Ml 2 Ml Vial) 4 mg IV NOW STA Stop: 11/27/24 17:57 Last Admin: 11/27/24 18:04 Dose: 4 mg Documented By: PRICILA Discharge Plan Visit Data Chief Complaint: Detox Request Stated Complaint: ALCOHOL WITHDRAWAL ED Provider: Jeffrey No Discharge Problem: Alcohol intoxication, Back pain Patient Disposition: Being Evaluated by Hospitalist Discharge Instructions Interventions: ED Discharge Assessment Last Done: 11/27/24 22:45 Discharge Problem: Alcohol intoxication Qualifiers: Complication of substance-induced condition: with unspecified complication Q ualified Code(s): F10.929 - Alcohol use, unspecified with intoxication, unspecified
[2024-11-27] MEDS: SODIUM CHLORIDE 0.9% 1,000 ML IV ONE ×2 (18:04→22:00)
[2024-11-27] MEDS: ONDANSETRON INJ 2 MG/ML 2 ML VIAL IV STA (18:04)
[2024-11-27 18:05] LABS: iSTAT Creatinine 1.3 mg/dl (0.6-1.3); iSTAT Hemoglobin 17.7 g/dl (12.0-16.0); iSTAT Ionized Calcium 1.07 mmol/l (1.12-1.32); iSTAT Potassium 4.5 mmol/L (3.3-5.0)
[2024-11-27 18:16] LABS: Basophils # (auto) 0.06 K/uL (0.00-0.20); Basophils % (auto) 0.8 %; Eosinophils # (auto) 0.08 K/uL (0.00-0.50); Hematocrit (blood only) 45.4 % (37.0-47.0); Hemoglobin 15.7 g/dl (12.0-16.0); Immature Granulocytes # (auto) 0.04 K/uL (0.01-0.20); Immature Granulocytes % (auto) 0.5 %; Lymphocytes # (auto) 3.67 K/uL (1.20-3.40); Lymphocytes % (auto) 46.7 %; Mean Corpuscular Hgb Conc 34.6 g/dL (32.0-36.0); Mean Corpuscular Volume 89.7 fL (80.0-100.0); Mean Platelet Volume 9.7 fL (9.4-12.4); Monocytes # (auto) 0.37 K/uL (0.11-0.59); Monocytes % (auto) 4.7 %; Neutrophils # (auto) 3.64 K/uL (1.40-6.50); Neutrophils % (auto) 46.3 %; Platelet Count 271 K/uL (130-400); RDW Coefficient of Variation 12.5 % (11.5-14.5); Red Blood Count 5.06 M/uL (4.20-5.40); White Blood Count 7.86 K/ul (4.8-10.8)
[2024-11-27 18:32] LABS: Pregnancy Test, Serum Negative (Negative)
[2024-11-27 18:37] LABS: Alanine Aminotransferase 33 U/L (7-52); Albumin Globulin Ratio 1.5 (0.9-2); Albumin Level 4.8 gm/dl (3.4-5.0); Alkaline Phosphatase 81 U/L (34-104); Anion Gap 14 (3-11); BUN Creatinine Ratio 12.2 (10-20); Bilirubin,Total 0.5 mg/dl (0.2-1.0); Blood Urea Nitrogen 10 mg/dl (6-23); Calcium 10.3 mg/dl (8.6-10.3); Carbon Dioxide 27 mmol/L (21-32); Chloride 99 mmol/L (98-107); Creatine Kinase 91 U/L (26-192); Globulin 3.2 gm/dl (2.5-4.0); Glucose 109 mg/dl (70-99(Fasting)); Lipase 64 U/L (11-82); Sodium 140 mmol/L (136-145); Troponin I High Sensitivity < 2.3 pg/ml (0-14)
[2024-11-27 18:40] LABS: INR 0.9 (0.9-1.1); Prothrombin Time 10.3 Seconds (9.0-12.0)
[2024-11-27 18:47] LABS: Acetaminophen < 3 ug/ml (10-30); Salicylate < 3.0 mg/dl (3.0-30)
[2024-11-27 18:49] LABS: Aspartate Aminotransferase 44 U/L (13-39); Potassium 4.5 mmol/L (3.5-5.1); Thyroid Stimulating Hormone 1.332 uIu/ml (0.300-4.500)
[2024-11-27] MEDS: LORazepam 2 MG/1 ML VIAL IV STA (18:59)
[2024-11-27] MEDS: LIDOCAINE 5% 1 PATCH TD STA (18:59)
[2024-11-27] MEDS: MoRPHine SULFATE 2 MG/ML CARP IV STA (19:09)
[2024-11-27 19:11] LABS: Adenovirus PCR Not Detected (NotDetected); Bordetella parapertussis PCR Not Detected (NotDetected); Bordetella pertussis PCR Not Detected (NotDetected); Chlamydia pneumoniae PCR Not Detected (NotDetected); Coronavirus 229E PCR Not Detected (NotDetected); Coronavirus CoV-2 (COVID19)PCR Not Detected (NotDetected); Coronavirus HKU1 PCR Not Detected (NotDetected); Coronavirus NL63 PCR Not Detected (NotDetected); Coronavirus OC43PCR Not Detected (NotDetected); Human Metapneumovirus PCR Not Detected (NotDetected); Influenza A PCR Not Detected (NotDetected); Influenza B PCR Not Detected (NotDetected); Mycoplasma pneumoniae PCR Not Detected (NotDetected); Parainfluenza Virus 1 PCR Not Detected (NotDetected); Parainfluenza Virus 2 PCR Not Detected (NotDetected); Parainfluenza Virus 3 PCR Not Detected (NotDetected); Parainfluenza Virus 4 PCR Not Detected (NotDetected); Respiratory Syncytial VirusPCR Not Detected (NotDetected); Rhinovirus/Enterovirus PCR Not Detected (NotDetected)
[2024-11-27] MEDS: HYDROmorphone INJ 0.5 MG/0.5 ML SYR IV STA (22:07)
[2024-11-27 22:34] LABS: Appearance Urine Clear (Clear); Bilirubin Urine Negative (Negative); Blood Urine Negative (Negative); Color Urine Yellow; Glucose Urine UA Negative (Negative); Ketones Urine Trace (Negative); Leukocyte Esterase Urine Negative (Negative); Nitrite Urine Negative (Negative); Protein Urine Negative (Negative); Specific Gravity Urine 1.009 (1.000-1.030); Urobilinogen Urine Negative (Negative)
[2024-11-27] MEDS ORDERED: chlordiazePOXIDE ALCOHOL WITHDRAWL 50MG PO STA (22:45)
[2024-11-27] MEDS ORDERED: LORazepam 2 MG/1 ML VIAL IV PRN ×2 (22:45)
[2024-11-27] MEDS ORDERED: Ativan IV Alcohol Withdrawal--Active Protocol IV PRN (22:45)
[2024-11-27 23:23] LABS: Amphetamines+Metham, Urine Neg (Neg); Barbiturates, Urine Neg (Neg); Benzodiazepine, Urine Neg (Neg); Cocaine, Urine Neg (Neg); Fentanyl, Urine Neg (Neg); MDMA (Ecstacy), Urine Neg (Neg); Marijuana, Urine Neg (Neg); Methadone, Urine Neg (Neg); Opiate, Urine Neg (Neg); Phencyclidine, Urine Neg (Neg)
[2024-11-28] MEDS: AMITRIPTYLINE HCL 25 MG TAB PO SCH ×2 (00:10→20:11)
[2024-11-28] MEDS: GABAPENTIN 400 MG CAP PO SCH (00:11)
[2024-11-28] MEDS: TOPIRAMATE 100 MG TAB PO SCH (00:11)
[2024-11-28] MEDS: chlordiazePOXIDE HCl 25 MG CAP PO SCH ×2 (00:11→22:23)
[2024-11-28] MEDS: THIAMINE HCL 100 MG in SYRINGE 9 ML IV ONE (00:11)
[2024-11-28] MEDS: ENOXAPARIN INJ 40 MG/0.4 ML SYR SQ SCH (00:12)
[2024-11-28] MEDS: SODIUM CHLORIDE 0.9% 1,000 ML IV SCH (00:13)
[2024-11-28] MEDS: ONDANSETRON INJ 2 MG/ML 2 ML VIAL IV PRN (00:29)
[2024-11-28] MEDS: KETOROLAC TROMETHAMINE 15 MG/ML VIAL IV ONE (00:53)
[2024-11-28] MEDS: LORazepam 2 MG/1 ML VIAL IV PRN (03:16)
--- OUTSIDE RECORDS SUMMARY | 2024-11-28 05:27 | External Medical Summary | Summary of Care ---
Author Name Unknown Organization [facility] Address [address] [place] [address] Phone [phone] Care Team Providers Care Hybrid Powertrain Development Engineer Name Role Phone Marilin MICHAELS MD, Gumaro Westfall Primary Care Provider [phone] Reason for Visit * Reason Onset Date Comments Medication Refill 11/10/2024 Encounter Details Date Type Department Care Team (Late st Contact Info) Description 11/10/2024 Refill Family Practice [facility] [address] [facility] [place] [address] Gumaro Rodriguez III, MD 200 [facility] [place] [address] Anxiety Allergies Active Allergy Reactions Criticality Noted Date Comments Nickel Rash 06/01/2018 documented as of this encounter (statuses as of 11/12/2024) Medications Acetaminophen 500 MG Oral Tablet Take 1 Tablet by mouth every 6 hours as needed. Active Torsemide 10 MG Oral Tablet (Demadex)Indica tions:Pedal edema Take 1 Tablet by mouth in the morning. 90 Tablet 3 4 Active hydrOXYzine Pamoate 100 MG Oral Capsule Take 1 Tablet by mouth 4 times a day as needed for Anxiety. 120 Capsule 5 4 Active Topiramate 100 MG Oral Tablet (topAMAX) Take 1 Tablet by mouth in the morning and 1 Tablet at noon and 1 Tablet before bedtime. 100 Tablet 3 4 Active Topiramate 25 MG Oral Tablet (topAMAX) Take 1 Tablet by mouth in the morning and 1 Tablet before bedtime. 60 Tablet 6 4 Active Gabapentin 400 MG Oral Capsule (Neurontin) Take 1 Capsule by mouth in the morning and 1 Capsule at noon and 1 Capsule before bedtime. 90 Capsule 5 4 Active valACYclovir HCl 1 GM Oral Tablet (Valtrex) TAKE 1 TABLET BY MOUTH IN THE MORNING AND 1 TAB BEFORE BEDTIME FOR 7 DAYS 14 Tablet 1 4 Active DULoxetine HCl 60 MG Oral Capsule Delayed Release Particles (Cymbalta) Take 1 Capsule by mouth in the morning. Do not cut, crush or chew. 30 Capsule 5 5 Active Cyclobenzaprine HCl 10 MG Oral Tablet (Flexeril) TAKE 1 TABLET BY MOUTH 2 TIMES A DAY NEEDED FOR MUSCLE SPASMS. 30 Tablet 5 Active Amitriptyline HCl 50 MG Oral Tablet (Elavil) TAKE 2.5 TABLETS BY MOUTH AT BEDTIME. 75 Tablet 3 5 Active LORazepam 1 MG Oral Tablet (Ativan)Indicat ions:Anxiety One tablet daily as needed anxiety 10 Tablet 1 5 Active LORazepam 1 MG Oral Tablet (Ativan)Indicat ions:Anxiety One tablet daily as needed anxiety 10 Tablet 1 5 11/10/19 25 Discontinu ed(Refill) documented as of this encounter (statuses as of 11/12/2024) Active Problems Problem Noted Date Diagnosed Date Alcoholic hepatitis without ascites 10/03/2024 Other pancytopenia 10/03/2024 Hypokalemia 10/03/2024 Alcohol-induced acute pancre atitis without infection or necrosis 10/03/2024 Attention deficit hyperactivity disorder (ADHD) 10/03/2024 Alcohol abuse, uncomplicated 10/03/2024 Major depressive disorder, recurrent episode, mo derate 11/15/2018 Depression with anxiety 10/19/2016 Malaise and fatigue 08/18/2010 Tobacco use disorder 11/02/2007 Elevated liver enzymes Migraine Insomnia documented as of this encounter (statuses as of 11/12/2024) Resolved Problems Problem Noted Date Diagnosed Date Resolved Date Alcohol abuse, in remission 04/24/2023 04/24/2023 Routine medical exam 08/18/2010 018 documented as of this encounter (statuses as of 11/12/2024) Immunizations Name Administration Dates Next Due Covid-19, Mrna, Lnp-s, Pf, B ivalent, 50 Mcg, IM, 12 yrs and above (Moderna) 09/23/2022 DTaP Dipth/Tet/Acell Pertussis (Infanrix), Peds 05/12/1988,03/05/1984,02/12/1983,12/11,1982 MMR - Measles/Mumps/Rubella Vaccine 11/28/1983 OPV - Polio Virus Vaccine (Oral) 988,03/05/1984,1982,10/09 PPD 10/02/2024,,09/11/2024,09/16,09/03/2020,07/26/2020,06/15/2008 Pneumococcal Polysaccharide PPV23 (Pneumovax) 03/01/2019 TDAP (age 10 and older)(Boostrix) 06/04/2021 TDAP, Age 7 and older, IM (Adacel) 04/22/2015, documented as of this encounter Social History Tobacco Use Types Packs/Day Years Used Date Smoking Tobacco: Former Cigarettes 0.5 20 Smokeless Tobacco: Never Comments:Vapes every day Alcohol Use Standard Drinks/Week Comments Not Currently 58 (1 standard drink = 0.6 oz pu re alcohol) been sober since 06/07 PHQ-2 Answer Date Recorded PHQ Adult Total Score 11 10/12/2024 Hunger Vital Sign Answer Date Recorded Within [...] ages 0-17 years) Not on file 08/01/2024 Food Insecurity Answer Date Recorded Within the past 12 months, y ou worried that your food would run out before you got the money to buy more. Never true 08/01/20 24 Within the past 12 months, t he food you bought just didn't last and you didn't have money to get more. Never true 08/01/2024 Do you need food for this week? No 08/01/2024 Comments No Sex and Gender Information Value Date Recorded Sex Assigned at Female 10/12/2024 1:59 PM EST Legal Sex Female 6:34 AM EST Gender Identity Female 10/12/2024 1:59 PM EST Sexual Orientation Straight 10/12/2024 1: 59 PM EST Occupation Industry Job Start Date Job End Date Not on file Not on file Not on file Not on file documented as of this encounter Miscellaneous Notes * Telephone Encounter - Gumaro Rodriguez III, MD - 11/12/2024 8:45 AM ESTSigned Prescriptions: Disp Refills LORazepam 1 MG Oral Tablet (Ativan) 10 Tab*1 Sig: One tablet daily as needed anxietyAuthorizing Provider: GUMARO RODRIGUEZ III * Telephone Encounter - Riya Dudley [facility] - 11/11/2024 3:44 PM ESTPending Prescriptions: Disp Refills LORazepam 1 MG Oral Tablet (Ativan) 10 Tab*1 Sig: One tablet daily as needed anxiety * Telephone Encounter - Riya Dudley [facility] - 11/11/2024 3:43 PM EST I have reviewed the patients controlled substance dispensing history in the Prescription Drug Monitoring Program in compliance with the [facility] regulations before prescribing a controlled substance. PDMP checked on 11/11/2024. Pending Prescriptions: Disp Refills LORazepam 1 MG Oral Tablet (Ativan) 10 Tab*1 Sig: One tablet daily as needed anxiety Last Visit: 10/16/2024 (in office), 09/03/2021 (telemedicine) Next Visit: 12/07/2024 Date medication was last filled: 10/27/24 Date medication is due for refill: 11/05/24 Pharmacy: [id number] Is this request for a controlled substance? Yes and Urine Drug Screen was completed Toxicology results: Results for orders placed or performed in visit on 10/16/24 TOXICOLOGY, URINE SCREEN W/ CONFIRMATION Result Value Amphetamines Screen, U Negative Benzodiazepines Screen, U Negative Cannabinoids Screen, U Negative Cocaine Metabolite Screen, U Negative Fentanyl Screen, U Negative Hydrocodone Screen, U Negative Methadone Metabolite Screen, U Negative Morphine/Codeine Screen, U Negative Oxycodone Screen, U Negative Narrative Cutoff Concentrations: Drug Level Amphetamines 500 ng/mL Benzodiazepines 100 ng/mL Cannabinoids 50 ng/mL Cocaine Metabolite 150 ng/mL Fentanyl 1 ng/mL Hydrocodone / Hydromorphone 300 ng/mL Methadone Metabolite 100 ng/mL Morphine / Codeine 300 ng/mL Oxycodone / Oxymorphone 100 ng/mL Screening results are presumptive and can only be used for medical purposes. Positive screening results are reflexed to confirmatory testing. Please approve if appropriate. Thank you, Riya Dudley, PharmD Clinical Pharmacist [facility] ([facility]) 11/11/24 3:43 PM [phone] documented in this encounter Plan of Treatment Upcoming Encounters Date Type Department Care Team (Late st Contact Info) Description 12/07/2024 10:20 AM EDT Office Visit Family [facility] [address] [facility] [place] [address] Gumaro Rodriguez III, MD [address] [facility] [place] [address] Health Maintenance Due Date Last Done Comments Hepatitis B Vaccine (1 of 3 - 19+ 3-dose series) 2001 HPV/Co-Test 2012 Pneumococcal Vaccine: Pediatrics (0 to 5 Years) and At-Risk Patients (6 to 18 Years and 19+ Years) (2 of 2 - PCV) 03/01/2020 03/01/2019 COVID-19 Vaccine (2 - 2023- season) 2024 09/23/2022 Influenza Vaccine (FLU shot) (#1) 2024 Mammogram 06/28/2024 06/28/2023, 06/21/2023 Cervical Cancer Screening 08/27/2024 Pap Smear 08/27/2024 08/27/2021, 03/28 (Done elsewhere), 12/21/2014, Additional history exists Depression Monitoring 10/12/2025 10/12/2024 Lipid Panel 02/24/2029 02/25/2024, 06/12/2020 DTap/Tdap Vaccines (9 - Td or Tdap) 06/04/2031 06/04/2021, 04/22/2015, 04/22/2009, Additional history exists Hepatitis C Screening Completed 12/22/2014 HPV (Gardasil) Vaccine Aged Out No lo nger eligible based on patient's age to complete this topic MENINGOCOCCAL (MENACTRA/MENVEO) Aged Out No longer eligible based on patient's age to complete this topic Meningitis B Vaccine (Bexsero/Trumemba) Aged Out No longer eligible based on patient's age to complete this topic documented as of this encounter Medical Devices Not on filedocumented as of this encounter Visit Diagnoses Diagnosis Anxiety Anxiety state, unspecified documented in this encounter Care Teams Hybrid Powertrain Development Engineer Relationship Specialty Start Date End Date Gumaro Rodriguez III, MD [address] [facility] [place] [address] PCP - General Family Medicine 05/12/23 documented as of this encounter
--- OUTSIDE RECORDS SUMMARY | 2024-11-28 05:27 | External Medical Summary | Summary of Care ---
Author Name Unknown Organization [facility] Address [address] [place] [address] Phone [phone] Care Team Providers Care Stenotype Operator Name Role Phone Marilin MICHAELS MD, Aj Westfall Primary Care Provider [phone] Reason for Visit * Reason Onset Date Comments Medical Questions 10/19/2024 lorazepam Encounter Details Date Type Department Care Team (Late st Contact Info) Description 10/19/2024 Telephone Family Practice [facility] 200 [facility] [address] Aj Gaston III, MD 200 [facility] [place] [address] Medical Questions (lorazepam) Allergies Active Allergy Reactions Criticality Noted Date Comments Nickel Rash 06/01/2018 documented as of this encounter (statuses as of 10/20/2024) Medications Acetaminophen 500 MG Oral Tablet Take 1 Tablet by mouth every 6 hours as needed. Active Amitriptyline HCl 50 MG Oral Tablet (Elavil) Take 2.5 Tablets by mouth at bedtime. 75 Tablet 3 4 Active Torsemide 10 MG Oral Tablet (Demadex)Indic ations:Pedal edema Take 1 Tablet by mouth in [...] or chew. 30 Capsule 5 5 Active LORazepam 1 MG Oral Tablet (Ativan)Indica tions:Anxiety One tablet daily as needed anxiety 10 Tablet 1 5 Active Cyclobenzaprin e HCl 10 MG Oral Tablet (Flexeril) Take 1 Tablet by mouth 2 times a day as needed for Muscle spasms. 30 Tablet 5 10/20/19 25 Discontinued documented as of this encounter (statuses as of 10/20/2024) Active Problems Problem Noted Date Diagnosed Date [...] as of this encounter (statuses as of 10/20/2024) Resolved Problems Problem Noted Date Diagnosed Date Resolved Date Alcohol abuse, in remission 04/24/2023 04/24/2023 Routine medical exam 08/18/2010 08/ 018 documented as of this encounter (statuses as of 10/20/2024) Immunizations Name Administration Dates Next Due Covid-19, Mrna, Lnp-s, Pf, B ivalent, 50 Mcg, IM, 12 yrs and above (Moderna) 09/23/2022 DTaP Dipth/Tet/Acell Pertussis (Infanrix), Peds 05/12/1988,03/05/1984,02/12/1983,12/11,1982 MMR - Measles/Mumps/Rubella Vaccine 11/28/1983 OPV - Polio Virus Vaccine (Oral) 988,03/05/1984,1982,10/09 PPD 10/02/2024, 4,09/11/2024,09/16,09/03/2020,07/26/2020,06/15/2008 Pneumococcal Polysaccharide PPV23 (Pneumovax) 03/01/2019 TDAP (age [...] encounter Miscellaneous Notes * Telephone Encounter - Tabitha James, drain cleaner - 10/19/2024 11:53 AM EST Pt calling concerning the qty of her lorazepam. Pt just wanted to discuss the process of refilling and if the 10 tablets were qualified as longer than 10 days. Informed pt it is a 10 day supply but also as needed. Pt states she is concerned because she is having anxiety attacks and feels she will be taking daily. Informed pt of the refill on file for further medication if needed. Pt stated if shedoes wish to request a monthly supply she will do at a later time. Pt concerned with calling so often and upsetting the office. Informed her, her care is important and refills are always handled withdiscretion. Pt understood and had no further questions. Sending to doctor as FYI. Thank you, Tabitha James [facility] Chairlift Operator II [facility] ([facility]) 10/19/2024, 11:58 AM documented in this encounter Plan of Treatment [...] filedocumented as of this encounter Care Teams Stenotype Operator Relationship Specialty Start Date End Date Marilin MICHAELS, Aj Westfall MD [address] [place] [address] PCP - General Family Medicine 05/12/23 documented as of this encounter
--- OUTSIDE RECORDS SUMMARY | 2024-11-28 05:27 | External Medical Summary | Summary of Care ---
Author Name Unknown Organization [facility] Address [address] [place] [address] Phone [phone] Care Team Providers Care Belt Worker Name Role Phone Marilin MICHAELS MD, Gumaro Westfall Primary Care Provider [phone] Reason for Visit * Reason Comments eRx-Medication Refill Encounter Details Date Type Department Care Team (Late st Contact Info) Description 10/26/2024 Refill Family Practice [facility] 200 [place] [place] [address] Gumaro Rodriguez III, MD 200 [place] [address] Allergies Active Allergy Reactions Criticality Noted Date Comments Nickel Rash 06/01/2018 documented as of this encounter (statuses as of 10/26/2024) Medications Acetaminophen 500 MG Oral Tablet Take 1 Tablet by mouth every 6 hours as needed. Active Torsemide 10 MG Oral Tablet (Demadex)Indic [...] e HCl 10 MG Oral Tablet (Flexeril) TAKE 1 TABLET BY MOUTH 2 TIMES A DAY NEEDED FOR MUSCLE SPASMS. 30 Tablet 5 Active Amitriptyline HCl 50 MG Oral Tablet (Elavil) TAKE 2.5 TABLETS BY MOUTH AT BEDTIME. 75 Tablet 3 5 Active Amitriptyline HCl 50 MG Oral Tablet (Elavil) Take 2.5 Tablets by mouth at bedtime. 75 Tablet 3 4 10/26/19 25 Discontinued documented as of this encounter (statuses as of 10/26/2024) Active Problems Problem Noted Date Diagnosed Date [...] as of this encounter (statuses as of 10/26/2024) Resolved Problems Problem Noted Date Diagnosed Date Resolved Date Alcohol abuse, in remission 04/24/2023 04/24/2023 Routine medical exam 08/18/2010 018 documented as of this encounter (statuses as of 10/26/2024) Immunizations Name Administration Dates Next Due Covid-19, [...] encounter Miscellaneous Notes * Telephone Encounter - Angeli Levin RPh - 10/26/2024 3:44 PM ESTSigned Prescriptions: Disp Refills Amitriptyline HCl 50 MG Oral Tablet (Elavi*75 Tab*3 Sig: TAKE 2.5 TABLETS BY MOUTH AT BEDTIME.Authorizing Provider: GUMARO RODRIGUEZ III User: ANGELI LEVIN MA documented in this encounter Plan of Treatment Upcoming Encounters Date Type Department Care Team (Late st Contact Info) Description 12/07/2024 10:20 AM EDT Office Visit [facility] [address] [place] [address] Gumaro Rodriguez III, MD 200 [facility] [place] [address] Health Maintenance Due Date Last Done Comments Hepatitis B Vaccine (1 of 3 - 19+ 3-dose series) 2001 HPV/Co-Test 2012 Pneumococcal Vaccine: Pediatrics (0 to 5 Years) and At-Risk Patients (6 to 18 Years and 19+ Years) (2 of 2 - PCV) 03/01/2020 03/01/2019 COVID-19 Vaccine (2 - season) 2024 09/23/2022 [...] filedocumented as of this encounter Care Teams Belt Worker Relationship Specialty Start Date End Date Gumaro Rodriguez III, MD [address] [place] [address] [address] PCP - General Family Medicine 05/12/23 documented as of this encounter
--- OUTSIDE RECORDS SUMMARY | 2024-11-28 05:27 | External Medical Summary | Summary of Care ---
Author Name Unknown Organization [facility] Address [address] [place] [address] Phone [phone] Care Team Providers Care Supervisor Concrete Stone Fabricating Name Role Phone Marilin MICHAELS MD, Gumaro Westfall Primary Care Provider [phone] Reason for Visit * Reason Comments eRx-Medication Refill Encounter Details Date Type Department Care Team (Late st Contact Info) Description 10/19/2024 Refill Family Practice [facility] 200 [facility] [place] [address] Nasreen Ford, DO 200 [place] [address] Allergies Active Allergy Reactions Criticality Noted Date [...] FOR MUSCLE SPASMS. 30 Tablet 5 Active Cyclobenzaprin e HCl 10 MG [...] Encounter - Gumaro Rodriguez III, MD - 10/20/2024 7:41 AM ESTSigned Prescriptions: Disp Refills Cyclobenzaprine HCl 10 MG Oral Tablet (Fle*30 Tab*0 Sig: TAKE 1 TABLET BY MOUTH 2 TIMES A DAY NEEDED FOR MUSCLE SPASMS.Authorizing Provider: GUMARO RODRIGUEZ III---- * Telephone Encounter - Yael Steel [facility] - 10/19/2024 3:18 PM ESTPending Prescriptions: Disp Refills Cyclobenzaprine HCl 10 MG Oral Tablet [Pha*30 Tab*0 Sig: Take 1 Tablet by mouth 2 times a day as needed for Muscle spasms. * Telephone Encounter - Yael Steel [facility] - 10/19/2024 3:18 PM EST [facility] is currently not authorized to approve refills for the pended medication(s) per refill protocol. Please approve if appropriate. Thanks, Yael Steel, PharmD Clinical Pharmacist Centralized Clinical Pharmacy Services ([facility]) [phone] 10/19/2024 3:18 PM * Telephone Encounter - Yael Steel [facility] - 10/19/2024 3:18 PM EST Pending Prescriptions: Disp Refills Cyclobenzaprine HCl 10 MG Oral Tablet (Fl*30 Tab*0 Sig: TAKE 1 TABLET BY MOUTH 2 TIMES A DAY NEEDED FOR MUSCLE SPASMS. Last Visit: 10/16/2024 (in office), 09/03/2021 (telemedicine) Next Visit: Visit date not found If no future appointments scheduled, and last appointment is greater than a year ago, please schedule patient for a follow-up appointment Last date the medication was ordered: 09/29/24 [facility]: [id number] [facility] Is this request for a controlled substance? No Urine Drug Screen: Results for orders placed [...] screening results are reflexed to confirmatory testing. Patient Phone Numbers [facility] [phone] Labs: Lab Results Component Value Date/Time CREAT 1.0 10/16/2024 01:19 PM CREAT 0.9 06/12/2020 12:23 PM POTASSIUM 4.1 10/16/2024 01:19 PM POTASSIUM 5.3 (H) 06/12/2020 12:23 PM TSH 1.72 04/27/2023 11:24 AM TSH 1.02 06/12/2020 12:23 PM LDL 103 02/25/2024 03:31 PM LDL 99 06/12/2020 12:23 PM ALT 8 (L) 10/16/2024 01:19 PM ALT 14 06/12/2020 12:23 PM HGBA1C [...] as of this encounter Care Teams Supervisor Concrete [employer] Fabricating Relationship Specialty Start Date End Date Gumaro Rodriguez III, MD [address] [place] [address] PCP - General Family Medicine 05/12/23 documented as of this encounter
--- OUTSIDE RECORDS SUMMARY | 2024-11-28 05:27 | External Medical Summary | Summary of Care ---
Author Name Unknown Organization [facility] Address [address] [place] [address] Phone [phone] Care Team Providers Care Manager Process Excellence Name Role Phone Marilin MICHAELS MD, Aj Westfall Primary Care Provider [phone] Reason for Visit * Reason Onset Date Comments Order Request 10/21/2024 Encounter Details Date Type Department Care Team (Late st Contact Info) Description 10/21/[address] [facility] 200 [place] [address] Aj Gaston III, MD 200 [place] [address] Order Request Allergies Active Allergy Reactions Criticality Noted Date Comments Nickel Rash 06/01/2018 documented as of this encounter (statuses as of 11/02/2024) Medications Acetaminophen 500 MG Oral Tablet Take [...] as of this encounter (statuses as of 11/02/2024) Active Problems Problem Noted Date Diagnosed Date [...] as of this encounter (statuses as of 11/02/2024) Resolved Problems Problem Noted Date Diagnosed Date Resolved Date Alcohol abuse, in remission 04/24/2023 04/24/2023 Routine medical exam 08/18/2010 018 documented as of this encounter (statuses as of 11/02/2024) Immunizations Name Administration Dates Next Due Covid-19, [...] No 08/01/2024 Does the household have a [facility] [facility] [place] source of income? (Household - for [...] Telephone Encounter - Nicole Encarnacion LPN - 10/26/2024 2:11 PM EST MyG sent * Telephone Encounter - Aj Gaston III, MD - 10/25/2024 10:41 AM EST Last labs were good no further rechecked needed in that regard * Telephone Encounter - Ravindra Katz CMA - 10/25/2024 10:12 AM EST Do you want patient have follow up labs done? Patient is requesting more labs? * Telephone Encounter - Edith Figueredo OSA - 10/21/2024 12:51 PM EST An order was requested for this patient. Name of Requesting Provider: Patient Order Requested: Routine Labs / Liver & Pancreatic function check up Diagnosis/Reason for Request: Follow Up Care If order request is for Mammogram: Is the patient having any breast symptoms? N/A Is there a chance of ? N/A Has the patient had any breast problems in the past? NA What location AND department does the patient wish to have their order completed at? [facility] Fax Number, if applicable: -- If the caller is not a current [...] Office Visit [place] [address] [address] Aj Gaston III, MD [address] [place] [address] [address] Health Maintenance Due Date Last Done Comments [...] filedocumented as of this encounter Care Teams Manager Process Excellence Relationship Specialty Start Date End Date Aj Gaston III, MD [address] [place], [place] [address] PCP - General Family Medicine 05/12/23 documented as of this encounter
--- OUTSIDE RECORDS SUMMARY | 2024-11-28 05:27 | External Medical Summary | Summary of Care ---
Author Name Unknown Organization [facility] Address [address] [place] [address] Phone [phone] Care Team Providers Care Cotton Factor Name Role Phone Marilin MICHAELS MD, Aj Westfall Primary Care Provider [phone] Reason for Visit * Reason Onset Date Comments Medical Questions 10/19/2024 lorazepam Encounter Details Date Type Department Care Team (Late st Contact Info) Description 10/19/[address] [facility] [address] [facility] [address] Aj Gaston III, MD 200 [facility] [place] [address] Medical Questions (lorazepam) Allergies Active Allergy Reactions Criticality Noted Date Comments Nickel Rash 06/01/2018 documented as of this encounter (statuses as of 10/19/2024) Medications Acetaminophen 500 MG Oral Tablet Take 1 Tablet by mouth every 6 hours as needed. Active Amitriptyline HCl 50 MG Oral Tablet (Elavil) Take 2.5 Tablets by mouth at bedtime. 75 Tablet 3 06/17/2024 Active Torsemide 10 MG Oral Tablet (Demadex)Indica tions:Pedal edema Take 1 Tablet by mouth in the morning. 90 Tablet 3 08/18/2024 Active hydrOXYzine Pamoate 100 MG Oral Capsule Take 1 Tablet by mouth 4 times a day as needed for Anxiety. 120 Capsule 5 08/30/2024 Active Topiramate 100 MG Oral Tablet (topAMAX) Take 1 Tablet by mouth in the morning and 1 Tablet at noon and 1 Tablet before bedtime. 100 Tablet 3 08/30/2024 Active Topiramate 25 MG Oral Tablet (topAMAX) Take 1 Tablet by mouth in the morning and 1 Tablet before bedtime. 60 Tablet 6 08/30/2024 Active Gabapentin 400 MG Oral Capsule (Neurontin) Take 1 Capsule by mouth in the morning and 1 Capsule at noon and 1 Capsule before bedtime. 90 Capsule 5 09/01/2024 Active valACYclovir HCl 1 GM Oral Tablet (Valtrex) TAKE 1 TABLET BY MOUTH IN THE MORNING AND 1 TAB BEFORE BEDTIME FOR 7 DAYS 14 Tablet 1 09/04/2024 Active Cyclobenzaprine HCl 10 MG Oral Tablet (Flexeril) Take 1 Tablet by mouth 2 times a day as needed for Muscle spasms. 30 Tablet 09/29/2024 Active DULoxetine HCl 60 MG Oral Capsule Delayed Release Particles (Cymbalta) Take 1 Capsule by mouth in the morning. Do not cut, crush or chew. 30 Capsule 5 10/16/2024 Active LORazepam 1 MG Oral Tablet (Ativan)Indicat ions:Anxiety One tablet daily as needed anxiety 10 Tablet 1 10/18/2024 Active documented as of this encounter (statuses as of 10/19/2024) Active Problems Problem Noted Date Diagnosed Date [...] as of this encounter (statuses as of 10/19/2024) Resolved Problems Problem Noted Date Diagnosed Date Resolved Date Alcohol abuse, in remission 04/24/2023 04/24/2023 Routine medical exam 08/18/2010 018 documented as of this encounter (statuses as of 10/19/2024) Immunizations Name Administration Dates Next Due Covid-19, [...] No 08/01/2024 Does the household have a [facility] source of income? (Household - for [...] Notes * Telephone Encounter - Tabitha James, engineering manager - 10/19/2024 11:53 AM EST Pt calling [...] doctor as FYI. Thank you, Tabitha James [facility] 10/19/2024, [...] filedocumented as of this encounter Care Teams Cotton Factor Relationship Specialty Start Date End Date Marilin MICHAELS, Aj Westfall MD [address] [place] [address] PCP - General Family Medicine 05/12/23 documented as of this encounter
--- OUTSIDE RECORDS SUMMARY | 2024-11-28 05:27 | External Medical Summary | Summary of Care ---
Author Name Unknown Organization [facility] Address [address] [place] [address] Phone [phone] Care Team Providers Care Court Magistrate Name Role Phone Marilin MICHAELS MD, Aj Westfall Primary Care Provider [phone] Reason for Visit * Reason Onset Date Comments Order Request 08/02/2024 Encounter Details Date Type Department Care Team (Late st Contact Info) Description 08/02/2024 Telephone Family Practice [facility] [address] [facility] [place] [address] Aj Gaston III, MD [address] [facility] [place] [address] Order Request Allergies Active Allergy Reactions Criticality Noted Date Comments Nickel Rash 06/01/2018 documented as of this encounter (statuses as of 11/02/2024) Medications Acetaminophen 500 MG Oral Tablet Take 1 Tablet by mouth every 6 hours as needed. Active documented as of this encounter (statuses [...] encounter Miscellaneous Notes * Telephone Encounter - Shaina Ingram PATTIE - 08/02/2024 11:38 AM EST An order was requested for this patient. Name of Requesting Provider: Dr Gaston Order Requested: bilateral screening mammogram VISHNU Diagnosis/Reason for Request: routine If order request is for Mammogram: Is the patient having any breast symptoms? No Is there a chance of ? No Has the patient had any breast problems in the past? Yes What location AND department does the patient wish to have their order completed at? [facility] Fax Number, if applicable: If the caller is not a current [...] 10:20 AM EDT Office Visit Family Practice [facility] [address] [facility] [place] [address] Aj Gaston III, MD 200 [facility] [place] [address] Health Maintenance Due Date Last Done Comments [...] filedocumented as of this encounter Care Teams Court Magistrate Relationship Specialty Start Date End Date Marilin Aj MICHAELS MD [address] [facility] [place] [address] PCP - General Family Medicine 05/12/23 documented as of this encounter
--- OUTSIDE RECORDS SUMMARY | 2024-11-28 05:27 | External Medical Summary | Summary of Care ---
Author Name Unknown Organization [facility] Address [address] [place] [address] Phone [phone] Care Team Providers Care Informix Developer Name Role Phone Marilin MICHAELS MD, Aj Westfall Primary Care Provider [phone] Reason for Visit * Reason Onset Date Comments Other 10/21/2024 Encounter Details Date Type Department Care Team (Late st Contact Info) Description 10/21/2024 Telephone Family Practice [facility] 200 [facility] [place] [address] Aj Gaston III, MD 200 [place] [address] Other Allergies Active Allergy Reactions Criticality Noted Date Comments Nickel Rash 06/01/2018 documented as of this encounter (statuses as of 10/23/2024) Medications Acetaminophen 500 MG Oral Tablet Take [...] 7 DAYS 14 Tablet 1 09/04/2024 Active DULoxetine HCl 60 MG Oral Capsule Delayed Release Particles (Cymbalta) Take 1 Capsule by mouth in the morning. Do not cut, crush or chew. 30 Capsule 5 10/16/2024 Active LORazepam 1 MG Oral Tablet (Ativan)Indicat ions:Anxiety One tablet daily as needed anxiety 10 Tablet 1 10/18/2024 Active Cyclobenzaprine HCl 10 MG Oral Tablet (Flexeril) TAKE 1 TABLET BY MOUTH 2 TIMES A DAY NEEDED FOR MUSCLE SPASMS. 30 Tablet 10/20/2024 Active documented as of this encounter (statuses as of 10/23/2024) Active Problems Problem Noted Date Diagnosed Date [...] as of this encounter (statuses as of 10/23/2024) Resolved Problems Problem Noted Date Diagnosed Date Resolved Date Alcohol abuse, in remission 04/24/2023 04/24/2023 Routine medical exam 08/18/2010 018 documented as of this encounter (statuses as of 10/23/2024) Immunizations Name Administration Dates Next Due Covid-19, [...] No 08/01/2024 Does the household have a [facility] source of income? (Household - for ages [...] encounter Miscellaneous Notes * Telephone Encounter - Chrissie Cunningham CPhT - 10/21/2024 1:06 PM EST Patient called in , she has been getting Hydroxyzine Pamoate from psychiatry as well as Dr Gaston. Ireached out to the pharmacy and advised them. They are going to discontinue the script from psychiatry. Thank you, Chrissie Cunningham CPhT Wire Temperer [facility] 10/21/2024,1:17 PM documented in this encounter Plan of Treatment Upcoming Encounters Date Type Department Care Team (Late st Contact Info) Description 12/07/2024 10:20 AM EDT Office Visit Family Practice [facility] [place] [address] [place] [address] Aj Gaston III, MD [address] [place] [address] Health Maintenance Due Date Last Done Comments [...] filedocumented as of this encounter Care Teams Informix Developer Relationship Specialty Start Date End Date Aj Gaston III, MD [address] [place] [address] PCP - General Family Medicine 05/12/23 documented as of this encounter
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
--- OUTSIDE RECORDS SUMMARY | 2024-11-28 05:28 | External Medical Summary | Summary of Care ---
Author Name Unknown Organization [facility] Address [address] [place] [address] Phone [phone] Care Team Providers Care Proof Coin Collector Name Role Phone Marilin MICAHELS MD, Aj Westfall Primary Care Provider [phone] Reason for Visit * Reason Comments Outpatient Testing Encounter Details Date Type Department Care Team (Late st Contact Info) Description 10/16/2024 1:10 PM EST Laboratory Laboratory [facility] [address] [place] [id number] [facility] [address] [place] [facility] [place] [address] Alcoholic hepatitis without ascites; Other pancytopenia (HCC); Alcohol-induced acute pancreatitis without infection or necrosis; Anxiety Allergies Active Allergy Reactions Criticality Noted Date Comments Nickel Rash 06/01/2018 documented as of this encounter (statuses as of 10/16/2024) Medications Acetaminophen 500 MG Oral Tablet Take [...] or chew. 30 Capsule 5 10/16/2024 Active documented as of this encounter (statuses as of 10/16/2024) Active Problems Problem Noted Date Diagnosed Date [...] as of this encounter (statuses as of 10/16/2024) Resolved Problems Problem Noted Date Diagnosed Date Resolved Date Alcohol abuse, in remission 04/24/2023 04/24/2023 Routine medical exam 08/18/2010 018 documented as of this encounter (statuses as of 10/16/2024) Immunizations Name Administration Dates Next Due Covid-19, [...] as of this encounter Plan of Treatment Pending Results Name Type Priority Associated Diagnoses Date /Time COMPREHENSIVE METABOLIC PANEL Lab Routine Alcoholic hepatitis without ascites Other pancytopenia (HCC) Alcohol-induced acute pancreatitis without infection or necrosis 10/16/2024 1:19 PM EST LIPASE Lab Routine Alcoholic hepatitis without ascites Other pancytopenia (HCC) Alcohol-induced acute pancreatitis without infection or necrosis 10/16/2024 1:19 PM EST CBC Lab Routine Alcoholic hepatitis without ascites Other pancytopenia (HCC) Alcohol-induced acute pancreatitis without infection or necrosis 10/16/2024 1:19 PM EST TOXICOLOGY, URINESCREEN W/ CONFIRMATION Lab Routine Anxiety 10/16/2024 1:22 PM EST EXTRA URINE ALIQUOT Lab Routine Anxiety 10/16/2024 1:22 PM EST Health Maintenance Due Date Last [...] as of this encounter Visit Diagnoses Diagnosis Alcoholic hepatitis without ascites Acute alcoholic hepatitis Other pancytopenia (HCC) Other pancytopenia Alcohol-induced acute pancreatitis without infection or necrosis Anxiety Anxiety state, unspecified documented in this encounter Care Teams Proof Coin Collector Relationship Specialty Start Date End Date Aj Gaston III, MD [address] [place] [address] PCP - General Family Medicine 05/12/23 documented as of this encounter
--- OUTSIDE RECORDS SUMMARY | 2024-11-28 05:28 | External Medical Summary | Summary of Care ---
Author Name Unknown Organization [facility] Address [address] [place] [address] Phone [phone] Care Team Providers Care Artificial Teeth Inspector Name Role Phone Marilin MICHAELS MD, Aj Westfall Primary Care Provider [phone] Reason for Visit * Reason Onset Date Comments FYI 10/18/2024 Encounter Details Date Type Department Care Team (Late st Contact Info) Description 10/18/2024 Telephone Family Practice [facility] 200 [facility] [place] [address] Aj Gaston III, MD 200 [place] [address] FYI Allergies Active Allergy Reactions Criticality Noted Date Comments Nickel Rash 06/01/2018 documented as of this encounter (statuses as of 10/18/2024) Medications Acetaminophen 500 MG Oral Tablet Take [...] as of this encounter (statuses as of 10/18/2024) Active Problems Problem Noted Date Diagnosed Date [...] as of this encounter (statuses as of 10/18/2024) Resolved Problems Problem Noted Date Diagnosed Date Resolved Date Alcohol abuse, in remission 04/24/2023 04/24/2023 Routine medical exam 08/18/2010 018 documented as of this encounter (statuses as of 10/18/2024) Immunizations Name Administration Dates Next Due Covid-19, [...] No 08/01/2024 Does the household have a [facility] source [facility]? (Household - for [...] encounter Miscellaneous Notes * Telephone Encounter - Vicenta Hall open soaper tender - 10/18/2024 9:40 AM EST [facility] calling to advise Lorazepam 1mg tablet does not require a prior auth Vicenta June Barrel Brander III [facility] 10/18/2024,9:40 AM documented in this encounter Plan of [...] filedocumented as of this encounter Care Teams Artificial Teeth Inspector Relationship Specialty Start Date End Date Aj Gaston III, MD 200 [place] [address] PCP - General Family Medicine 05/12/23 documented as of this encounter
--- OUTSIDE RECORDS SUMMARY | 2024-11-28 05:28 | External Medical Summary | Summary of Care ---
Author Name Unknown Organization [facility] Address [address] [place] [address] Phone [phone] Care Team Providers Care Loss Prevention Auditor Name Role Phone Marilin MICHAELS MD, Aj Westfall Primary Care Provider [phone] Reason for Visit * Reason Onset Date Comments Advice 07/19/2024 Encounter Details Date Type Department Care Team (Late st Contact Info) Description 07/19/2024 Telephone Family Practice [facility] 200 [facility] [place] [address] Aj Gaston III, MD 200 [place] [address] Advice Allergies Active Allergy Reactions Criticality Noted Date Comments Nickel Rash 06/01/2018 documented as of this encounter (statuses as of 10/18/2024) Medications Acetaminophen 500 MG Oral Tablet Take 1 Tablet by mouth every 6 hours as needed. Active Amitriptyline HCl 50 MG Oral Tablet (Elavil) Take 2.5 Tablets by mouth at bedtime. 75 Tablet 3 4 Active Thiamine HCl 100 MG Oral Tablet Take 1 Tablet by mouth in the morning. 3 08/26/20 24 Discontinu ed(Medicat ion List Clean Up) valACYclovir HCl 1 GM Oral Tablet (Valtrex) TAKE 1 TABLET BY MOUTH IN THE MORNING AND 1 TAB BEFORE BEDTIME FOR 7 DAYS 14 Tablet 1 4 09/02/20 24 Discontinu ed(Refill) LORazepam 1 MG Oral Tablet (Ativan) 1 daily as needed anxiety 5 Tablet 4 08/26/20 24 Discontinu ed(Medicat ion/Dose Changed) Cyclobenzaprine HCl 5 MG Oral Tablet (Flexeril) Take 1 Tablet by mouth 3 times a day as needed for Muscle spasms. 30 Tablet 1 4 08/26/20 24 Discontinu ed(Medicat ion List Clean Up) Topiramate 100 MG Oral Tablet (topAMAX) Take 1 Tablet by mouth in the morning and 1 Tablet at noon and 1 Tablet before bedtime. 100 Tablet 3 4 08/29/20 24 Discontinu ed(Refill) Topiramate 25 MG Oral Tablet (topAMAX) Take 1 Tablet by mouth in the morning and 1 Tablet before bedtime. 60 Tablet 6 4 08/29/20 24 Discontinu ed(Refill) hydrOXYzine Pamoate 100 MG Oral Capsule Take 1 Tablet by mouth 4 times a day as needed for Anxiety. 120 Capsule 5 4 08/29/20 24 Discontinu ed(Refill) Torsemide 10 MG Oral Tablet (Demadex)Indica tions:Pedal edema Take 1 Tablet by mouth in the morning. 30 Tablet 1 4 08/11/20 24 Discontinu ed(Refill) Sertraline HCl 50 MG Oral Tablet (Zoloft) Take 2 Tablets by mouth in the morning. 60 Tablet 3 4 08/21/20 24 Discontinu ed(Refill) Gabapentin 300 MG Oral Capsule (Neurontin) Take 1 Capsule by mouth in the morning and 1 Capsule at noon and 1 Capsule before bedtime. 3x daily. 270 Capsule 3 4 08/26/20 24 Discontinu ed(Medicat ion List Clean Up) documented as of this [...] Miscellaneous Notes * Telephone Encounter - Emy Zheng CCMA - 08/03/2024 10:07 AM EST Spoke with patient regarding message below. Patient understands her medications and what she is taking. No other concerns at this time and she says Thank You * Telephone Encounter - Ian Fallon LPN - 07/24/2024 10:19 AM EDT Attempted to call, no answer, left message to return call. When patient calls back, please give the message from provider. Sent patient a [facility] message: No agent ticketing gate may give this message: Yes Message to give: can prescribe all meds * Telephone Encounter - Aj Gaston III, MD - 07/20/2024 8:19 AM EDT Can prescribe them all * Telephone Encounter - Janell Ag LPN - 07/19/2024 3:[address] Gaston, please advise which medication you will continue to prescribe for patient. All prescription meds on current med list were last prescribed by Dr. Gaston with the exception of lorazepam that was prescribed in February by Dr. Collins but patient was only given 5 tabs so she's likely no longer taking/using that medication. * Telephone Encounter - Radha Oliveros OSA - 07/19/2024 2:57 PM EDT Reason for patient's call: Patient called states started counseling again and they advised her to reach out to her PCP Dr. Aj Gaston in reference to her medication. Patient states has other medication and she just wants to have clarifications on which medications will be refilled by her PCP Dr. Gaston. Patient needs this information today 07/19/24 to provide to her counselors. documented in this encounter Plan of Treatment [...] filedocumented as of this encounter Care Teams Loss Prevention Auditor Relationship Specialty Start Date End Date Aj Gaston III, MD 200 [place] [address] PCP - General Family Medicine 05/12/23 documented as of this encounter
--- OUTSIDE RECORDS SUMMARY | 2024-11-28 05:28 | External Medical Summary | Summary of Care ---
Author Name Unknown Organization [facility] Address [address] [place] [address] Phone [phone] Care Team Providers Care Phytochemistry Professor Name Role Phone Marilin MICHAELS MD, Aj Westfall Primary Care Provider [phone] Encounter Details Date Type Department Care Team (Late st Contact Info) Description 10/16/2024 Population Health External Data Unspecified Department Allergies [...] filedocumented as of this encounter Care Teams Phytochemistry Professor Relationship Specialty Start Date End Date Aj Gaston III, MD 200 [facility] [place] [address] PCP - General Family Medicine 05/12/23 documented as of this encounter
--- OUTSIDE RECORDS SUMMARY | 2024-11-28 05:28 | External Medical Summary | Summary of Care ---
Author Name Unknown Organization [facility] Address [address] [place] [address] Phone [phone] Care Team Providers Care Electronic Security Specialist Name Role Phone Marilin MICHAELS MD, Aj Westfall Primary Care Provider [phone] Reason for Visit * Reason Comments Outpatient Testing Encounter Details Date Type Department Care Team (Late st Contact Info) Description 10/16/2024 1:10 PM EST Laboratory Laboratory [facility] [address] [place] [id number] [facility] [address] [place] [address] Alcoholic hepatitis without ascites; Other pancytopenia (HCC); [...] Procedure Name Priority Date/Time Associated Diagnosis Comments CBC Routine 10/16/2024 1:19 PM EST Alcoholic hepatitis without ascites Other pancytopenia (HCC) Alcohol-induced acute pancreatitis without infection or necrosis documented in this encounter Results * CBC (10/16/2024 1:19 PM EST) WBC 8.79 4.00 - 10.80 K/uL 10/16/2024 1:32 PM EST [facility]- RBC 4.14 3.85 - 5.15 M/uL 10/16/2024 1:32 PM EST [facility]-02 HGB 13.8 12.0 - 15.3 g/dL 10/16/2024 1:32 PM EST [facility] 56-02 HCT 40.9 36.0 - 45.2 % 10/16/2024 1:32 PM EST [facility] 56-02 MCV 98.8 81.5 - 97.5 fL 10/16/2024 1:32 PM EST [facility]-02 MCH 33.3 27.0 - 34.0 pg 10/16/2024 1:32 PM [facility] 56- MCHC 33.7 32.0 - 36.0 g/dL 10/16/2024 1:32 PM [facility] 56- RDW 12.8 11.5 - 15.5 % 10/16/2024 1:32 PM [facility] 56- PLT 297 140 - 400 K/uL 10/16/2024 1:32 PM [facility] 56- MPV 9.4 6.6 - 11.1 fL 10/16/2024 1:32 PM [facility] 56- Blood Venous blood specimen / Unknown Venipuncture / Unknown 10/16/2024 1:19 PM EST 10/16/2024 1:19 PM EST Aj Gaston III, MD LAB BLOOD ORDERABLES Final Result [facility] [address] documented in this encounter Visit Diagnoses Diagnosis Alcoholic hepatitis without ascites Acute alcoholic hepatitis Other pancytopenia (HCC) Other pancytopenia Alcohol-induced acute pancreatitis without infection or necrosis Anxiety Anxiety state, unspecified documented in this encounter Care Teams Electronic Security Specialist Relationship Specialty Start Date End Date Aj Gaston III, MD 200 [facility] [place] [address] PCP - General Family Medicine 05/12/23 documented as of this encounter
--- OUTSIDE RECORDS SUMMARY | 2024-11-28 05:28 | External Medical Summary | Summary of Care ---
Author Name Unknown Organization [facility] Address [address] [place] [address] Phone [phone] Care Team Providers Care Filing Or Registry Clerk Name Role Phone Marilin MICHAELS MD, Aj Westfall Primary Care Provider [phone] Reason for Visit * Reason Comments Follow Up Pt following up rega rding anxiety and back issues Encounter Details Date Type Department Care Team (Late st Contact Info) Description 10/16/2024 12:20 PM EST Office Visit Family Practice [facility] 200 [facility] [place] [address] Aj Gaston III, MD 200 [place] [address] Anxiety*; Alcoholic hepatitis without ascites; Other pancytopenia (HCC); Alcohol-induced acute pancreatitis without infection or necrosis Allergies Active Allergy Reactions Criticality Noted Date [...] DAYS 14 Tablet 1 09/04/20 24 Active Cyclobenzaprin e HCl 10 MG Oral Tablet (Flexeril) Take 1 Tablet by mouth 2 times a day as needed for Muscle spasms. 30 Tablet 09/29/19 25 Active DULoxetine HCl 60 MG Oral Capsule Delayed Release Particles (Cymbalta) Take 1 Capsule by mouth in the morning. Do not cut, crush or chew. 30 Capsule 5 10/16/19 25 Active Sertraline HCl 50 MG Oral Tablet (Zoloft) Take 3 Tablets by mouth in the morning. 90 Tablet 3 08/26/20 24 025 Discontinued(Me dication/Dose Changed) DULoxetine HCl 30 MG Oral Capsule Delayed [...] No 08/01/2024 Does the household have a [facility] source of income? (Household - for [...] Sign Reading Time Taken Comments Blood Pressure 98/62 10/16/2024 12:33 PM EST Pulse 98 10/16/2024 12:33 PM EST Temperature 36.6 C (97.8 F) 10/16/2024 12:[address] Respiratory Rate 16 10/16/2024 12:33 PM EST Oxygen Saturation - - Inhaled Oxygen Concentration - - Weight 52.6 kg (116 lb) 10/16/2024 12:33 PM EST Height 162.6 cm (5' 4.02") 10/16/2024 12:[address] Body Mass Index 19.9 10/16/2024 12:33 PM EST documented in this encounter Progress Notes * Marilin MICHAELS, Aj Westfall MD - 10/16/2024 1:01 PM EST Subjective: Emma Nathan is a 44 year old female. Chief Complaint Patient presents with Follow Up Pt following up regarding anxiety and back issues HPI: Concerns are principally anxiety has history of alcoholic hepatitis pancreatitis pancytopenia has been losing weight recently started on duloxetine has chronic left SI area pain sees physical therapy and chiropractic treatments do not sustain Release usually about 10 20 minutes later it has recurred has tried Lidoderm patches Voltaren gel anxiety is severe takes hydroxyzine 100 mg 3 times daily is on the gabapentin as well and amitriptyline PHM: Patient Active Problem List Diagnosis Tobacco use disorder Malaise and fatigue Depression with anxiety Elevated liver enzymes Migraine Insomnia Major depressive disorder, recurrent episode, moderate (HCC) Alcoholic hepatitis without ascites Other pancytopenia (HCC) Hypokalemia Alcohol-induced acute pancreatitis without infection or necrosis Attention deficit hyperactivity disorder (ADHD) Alcohol abuse, uncomplicated Current Outpatient Medications Medication Sig Dispense Refill Acetaminophen 500 MG Oral Tablet Take 1 Tablet by mouth every 6 hours as needed. Amitriptyline HCl 50 MG Oral Tablet (Elavil) Take 2.5 Tablets by mouth at bedtime. 75 Tablet 3 Torsemide 10 MG Oral Tablet (Demadex) Take 1 Tablet by mouth in the morning. 90 Tablet 3 hydrOXYzine Pamoate 100 MG Oral Capsule Take 1 Tablet by mouth 4 times a day as needed for Anxiety.120 Capsule 5 Topiramate 100 MG Oral Tablet (topAMAX) Take 1 Tablet by mouth in the morning and 1 Tablet at noon and 1 Tablet before bedtime. 100 Tablet 3 Topiramate 25 MG Oral Tablet (topAMAX) Take 1 Tablet by mouth in the morning and 1 Tablet before bedtime. 60 Tablet 6 Gabapentin 400 MG Oral Capsule (Neurontin) Take 1 Capsule by mouth in the morning and 1 Capsule at noon and 1 Capsule before bedtime. 90 Capsule 5 valACYclovir HCl 1 GM Oral Tablet (Valtrex) TAKE 1 TABLET BY MOUTH IN THE MORNING AND 1 TAB BEFORE BEDTIME FOR 7 DAYS 14 Tablet 1 Cyclobenzaprine HCl 10 MG Oral Tablet (Flexeril) Take 1 Tablet by mouth 2 times a day as needed forMuscle spasms. 30 Tablet 0 DULoxetine HCl 60 MG Oral Capsule Delayed Release Particles (Cymbalta) Take 1 Capsule by mouth in the morning. Do not cut, crush or chew. 30 Capsule 5 No current facility-administered medications for this visit. Past Medical History: Diagnosis Date Alcohol abuse, in remission Elevated liver enzymes Insomnia Migraine Past Surgical History: Procedure Laterality Date DENTAL SURGERY PROCEDURE NEC 09/27/1999 US GUIDED BREAST BIOPSY LEFT Left 07/12/2023 Review of patient's allergies indicates: Allergen Reactions Nickel Rash Objective: BP 98/62 | Pulse 98 | Temp 97.8 F (36.6 C) | Resp 16 | Ht 5' 4.02" (1.626 m) | Wt 116 lb (52.6 kg) | BMI 19.90 kg/m | BSA 1.54 m Physical Exam: General: alert and distressed Appears to have functional leg length discrepancy shorter on the left marked SI area tenderness ASSESSMENT/PLAN: Anxiety (Primary) Alcoholic hepatitis without ascites - COMPREHENSIVE METABOLIC PANEL; Future; Expected date: 10/16/2024 - LIPASE; Future; Expected date: 10/16/2024 - CBC; Future; Expected date: 10/16/2024 Other pancytopenia (HCC) - COMPREHENSIVE METABOLIC PANEL; Future; Expected date: 10/16/2024 - LIPASE; Future; Expected date: 10/16/2024 - CBC; Future; Expected date: 10/16/2024 Alcohol-induced acute pancreatitis without infection or necrosis - COMPREHENSIVE METABOLIC PANEL; Future; Expected date: 10/16/2024 - LIPASE; Future; Expected date: 10/16/2024 - CBC; Future; Expected date: 10/16/2024 Other orders - DULoxetine HCl 60 MG Oral Capsule Delayed Release Particles (Cymbalta); Take 1 Capsule by mouth in the morning. Do not cut, crush or chew. Discussed can consider restart lorazepam which particularly worked but would limit to no more than 1 per day med use agreement and urine tox screen Total time 33 minutes Aj Gaston III, MD documented in this encounter Nursing Notes * Octavia Hernandez LPN - 10/16/2024 12:32 PM EST The patient has been properly identified by confirmation of name and date of . Chief Complaint Patient presents with Follow Up Pt following up regarding anxiety and back issues documented in this encounter Miscellaneous Notes * Addendum Note - Janell Ag LPN - 10/16/2024 1:19 PM ESTAddended by: JANELL AG on: 10/16/2024 01:19 PM Modules accepted: Orders documented in this encounter Plan of Treatment Pending Results [...] Lab Routine Anxiety 10/16/2024 1:22 PM EST Scheduled Orders Name Type Priority Associated Diagnoses Orde r Schedule COMPREHENSIVE METABOLIC PANEL Lab Routine Alcoholic hepatitis without ascites Other pancytopenia (HCC) Alcohol-induced acute pancreatitis without infection or necrosis Expected: 10/16/2024 (Approximate), Expires: 10/16/2025 LIPASE Lab Routine Alcoholic hepatitis without ascites Other pancytopenia (HCC) Alcohol-induced acute pancreatitis without infection or necrosis Expected: 10/16/2024 (Approximate), Expires: 10/16/2025 CBC Lab Routine Alcoholic hepatitis without ascites Other pancytopenia (HCC) Alcohol-induced acute pancreatitis without infection or necrosis Expected: 10/16/2024 (Approximate), Expires: 10/16/2025 TOXICOLOGY, URINESCREEN W/ CONFIRMATION Lab Routine Anxiety Expected: 10/16/2024, Expires: 10/16/2025 Health Maintenance Due Date Last Done Comments [...] Diagnoses Diagnosis Anxiety- Primary Anxiety state, unspecified Alcoholic hepatitis without ascites Acute alcoholic hepatitis Other pancytopenia (HCC) Other pancytopenia Alcohol-induced acute pancreatitis without infection or necrosis documented in this encounter Care Teams Filing Or Registry Clerk Relationship Specialty Start Date End Date Aj Gaston III, MD [address] [place] [address] PCP - General Family Medicine 05/12/23 documented as of this encounter
--- OUTSIDE RECORDS SUMMARY | 2024-11-28 05:29 | External Medical Summary ---
Author Name Unknown Address Unknown Organization [id number]:[facility] - [address] [place] [address] Laboratory Report Ordering Provider Test Date Status MICHAEL NAIK III 10/16/2024 13:22:07 Final Cutoff Concentrations:
Drug Level
Amphetamines 500 ng/mL
Benzodiazepines 100 ng/mL
Cannabinoids 50 ng/mL
Cocaine Metabolite 150 ng/mL
Fentanyl 1 ng/mL
Hydrocodone / Hydromorphone 300 ng/mL
Methadone Metabolite 100 ng/mL
Morphine / Codeine 300 ng/mL
Oxycodone / Oxymorphone 100 ng/mL

Screening results are presumptive and can only be used for medical purposes. Positive screening results are reflexed to confirmatory testing. Observation Date Value Abnormality Reference (Units ) Status Amphetamines, Urine screen 10/16/2024 13:22:07 Negative Negative Final Benzodiazepines, Urine screen 10/16/2024 13:22:07 Negative Negative Final Cannabinoids, Urine screen 10/16/2024 13:22:07 Negative Negative Final Cocaine Metabolite, Urine screen 10/16/2024 13:22:07 Negative Negative Final fentaNYL [Presence] in Urine by Screen method 10/16/2024 13:22:07 Negative Negative Final HYDROcodone [Presence] in Urine by Screen method 10/16/2024 13:22:07 Negative Negative Final 7-Wphqbzxtbt-1,5-Dimeth yl-3,3-Diphenylpyrrolid ine (EDDP) [Presence] in Urine 10/16/2024 13:22:07 Negative Negative Final Opiates, Urine screen 10/16/2024 13:22:07 Negative Negative Final oxyCODONE [Presence] in Urine by Screen method 10/16/2024 13:22:07 Negative Negative Final Performing Location [facility] - [address] [place] [address]
--- OUTSIDE RECORDS SUMMARY | 2024-11-28 05:29 | External Medical Summary | Summary of Care ---
Author Name Unknown Organization [facility] Address [address] [place] [address] Phone [phone] Care Team Providers Care Computer Support Technician Name Role Phone Marilin MICHAELS MD, Aj Westfall Primary Care Provider [phone] Reason for Visit * Reason Comments TB Test Reading Encounter Details Date Type Department Care Team (Late st Contact Info) Description 10/04/2024 3:30 PM EST Nurse Only Ancillary [facility] [address] [place] [address] Park, Nurse Fam [facility] [address] [place] [address] TB Test Reading Allergies Active Allergy Reactions Criticality Noted Date Comments Nickel Rash 06/01/2018 documented as of this encounter (statuses as of 10/04/2024) Medications Acetaminophen 500 MG Oral Tablet Take 1 Tablet by mouth every 6 hours as needed. Active Amitriptyline HCl 50 MG Oral Tablet (Elavil) Take 2.5 Tablets by mouth at bedtime. 75 Tablet 3 06/17/2024 Active Torsemide 10 MG Oral Tablet (Demadex)Indica tions:Pedal edema Take 1 Tablet by mouth in the morning. 90 Tablet 3 08/18/2024 Active Sertraline HCl 50 MG Oral Tablet (Zoloft) Take 3 Tablets by mouth in the morning. 90 Tablet 3 08/26/2024 Active hydrOXYzine Pamoate 100 MG Oral Capsule [...] spasms. 30 Tablet 09/29/2024 Active DULoxetine HCl 30 MG Oral Capsule Delayed Release Sprinkle Take by mouth. Active documented as of this encounter (statuses as of 10/04/2024) Active Problems Problem Noted Date Diagnosed Date [...] as of this encounter (statuses as of 10/04/2024) Resolved Problems Problem Noted Date Diagnosed Date Resolved Date Alcohol abuse, in remission 04/24/2023 04/24/2023 Routine medical exam 08/18/2010 018 documented as of this encounter (statuses as of 10/04/2024) Immunizations Name Administration Dates Next Due Covid-19, [...] as of this encounter Progress Notes * Ashley Lorenzo NA - 10/04/2024 4:40 PM EST Patient here for PPD reading. PPD Results: 0 mm documented in this encounter Plan of Treatment Upcoming Encounters Date Type Department Care Team (Late st Contact Info) Description 10/12/2024 2:30 PM EST Telemedicine Psychology [facility] [place] [address] [place] [place] [phone] Krys Santos LCSW [address] [phone] 10/16/2024 12:20 PM EST Office Visit Family Practice [facility] [address] [place] [address] [place] Aj MICHAELS MD [address] [place] [address] Health Maintenance Due Date Last Done Comments [...] filedocumented as of this encounter Care Teams Computer Support Technician Relationship Specialty Start Date End Date Aj Gaston III, MD [address] [place] [address] PCP - General Family Medicine 05/12/23 documented as of this encounter
--- OUTSIDE RECORDS SUMMARY | 2024-11-28 05:29 | External Medical Summary | Summary of Care ---
Author Name Unknown Organization [facility] Address [address] [place] [address] Phone [phone] Care Team Providers Care Marine Fire Fighter Name Role Phone Marilin MICHAELS MD, Aj Westfall Primary Care Provider [phone] Reason for Visit * Reason Onset Date Comments Medication Refill 09/29/2024 Encounter Details Date Type Department Care Team (Late st Contact Info) Description 09/29/[address] [facility] [address] [place] [address] Aj Gaston III, MD 200 [facility] [place] [address] Allergies Active Allergy Reactions Criticality Noted Date Comments Nickel Rash 06/01/2018 documented as of this encounter (statuses as of 09/29/2024) Medications Acetaminophen 500 MG Oral Tablet Take 1 Tablet by mouth every 6 hours as needed. Active Amitriptyline HCl 50 MG Oral Tablet (Elavil) Take 2.5 Tablets by mouth at bedtime. 75 Tablet 3 4 Active Torsemide 10 MG Oral Tablet (Demadex)Indica tions:Pedal edema Take 1 Tablet by mouth in the morning. 90 Tablet 3 4 Active Sertraline HCl 50 MG Oral [...] 7 DAYS 14 Tablet 1 4 Active Cyclobenzaprine HCl 10 MG Oral Tablet (Flexeril) Take 1 Tablet by mouth 2 times a day as needed for Muscle spasms. 30 Tablet 5 Active Cyclobenzaprine HCl 10 MG Oral Tablet (Flexeril) Take 1 Tablet by mouth 2 times a day as needed for Muscle spasms. 30 Tablet 4 09/29/19 25 Discontinu ed(Refill) documented as of this encounter (statuses as of 09/29/2024) Active Problems Problem Noted Date Diagnosed Date Major depressive disorder, recurrent episode, mo derate 11/15/2018 Depression with anxiety 10/19/2016 Malaise and fatigue 08/18/2010 Tobacco use disorder 11/02/2007 Elevated liver enzymes Migraine Insomnia documented as of this encounter (statuses as of 09/29/2024) Resolved Problems Problem Noted Date Diagnosed Date Resolved Date Alcohol abuse, in remission 04/24/2023 04/24/2023 Routine medical exam 08/18/2010 018 documented as of this encounter (statuses as of 09/29/2024) Immunizations Name Administration Dates Next Due Covid-19, Mrna, Lnp-s, Pf, B ivalent, 50 Mcg, IM, 12 yrs and above (Moderna) 09/23/2022 DTaP Dipth/Tet/Acell Pertussis (Infanrix), Peds 05/12/1988,03/05/1984,02/12/1983,12/11,1982 MMR - Measles/Mumps/Rubella Vaccine 11/28/1983 OPV - Polio Virus Vaccine (Oral) 988,03/05/1984,1982,10/09 PPD 09/19/2024, 4,09/16/2020,09/03,07/26/2020,06/15/2008 Pneumococcal Polysaccharide PPV23 (Pneumovax) 03/01/2019 TDAP (age [...] encounter Miscellaneous Notes * Telephone Encounter - Milena Tyson, tobacco drier operator - 09/29/2024 1:20 PM EST Did you pend patient's preferred pharmacy and medication before forwarding?yes Pharmacy: [id number] [address] [facility] Pending Prescriptions: Disp Refills Cyclobenzaprine HCl 10 MG Oral Tablet (Fl*30 Tab*0 Sig: Take 1 Tablet by mouth 2 times a day as needed for Muscle spasms. Last Visit: 06/16/2024 (in office), 09/03/2021 (telemedicine) Next Visit: 10/03/2024 If no future appointments scheduled, and last appointment is greater than a year ago, please schedule patient for a follow-up appointment Last date the medication was ordered: 08/26/2024 Is this request for a controlled substance?No [...] CONFIRMATORY TESTING. Cutoff Concentration Patient Phone Numbers [employer] [phone] Labs: Lab Results Component Value Date/Time CREAT 0.9 08/26/2024 09:40 AM CREAT 0.9 06/12/2020 12:23 PM POTASSIUM 4.5 08/26/2024 09:40 AM POTASSIUM 5.3 (H) 06/12/2020 12:23 PM TSH 1.72 04/27/2023 11:24 AM TSH 1.02 06/12/2020 12:23 PM LDL 103 02/25/2024 03:31 PM LDL 99 06/12/2020 12:23 PM ALT 24 08/26/2024 09:40 AM ALT 14 06/12/2020 12:23 PM HGBA1C 4.9 06/12/2020 12:23 PM documented in this encounter Plan of Treatment Upcoming Encounters Date Type Department Care Team (Late st Contact Info) Description 10/02/2024 3:30 PM EST Nurse Only Ancillary [facility] [place] [address] [facility] [place] [address] [place], Nurse Fam Prac [facility] [address] [facility] [place] [address] 10/03/2024 11:40 AM EST Office Visit Family Practice [facility] [place] [address] [facility] [place] [address] Aj Gaston III, MD [address] [facility] [place] [address] 10/12/2024 2:30 PM EST Telemedicine Psychology [place] [address] [place] [address] Krys Santos, JJ [address] [place] [address] Health Maintenance Due Date Last Done Comments [...] (6 to 18 Years and 19+ Years) Aged Out 03/01/2019 No longer eligib le based on patient's age to complete this topic HPV (Gardasil) Vaccine Aged Out No lo nger eligible based on patient's age to complete this topic MENINGOCOCCAL (MENACTRA/MENVEO) Aged Out No longer eligible based on patient's age to complete this topic documented as of this encounter Medical Devices Not on filedocumented as of this encounter Care Teams Marine Fire Fighter Relationship Specialty Start Date End Date Aj Gaston III, MD [address] [place] [address] PCP - General Family Medicine 05/12/23 documented as of this encounter
--- OUTSIDE RECORDS SUMMARY | 2024-11-28 05:29 | External Medical Summary ---
Author Name Unknown Address Unknown Organization K09[facility] [place] [address] Laboratory Report Ordering Provider Test Date Status MICHAEL NAIK III 10/16/2024 13:19:16 Final Observation Date Value Abnormality Reference (Units ) Status WBC, Total 10/16/2024 13:19:16 8.79 4.00-10.8 0 (K/uL) Final RBC 10/16/2024 13:19:16 4.14 3.85-5.15 (M/uL) Final Hemoglobin 10/16/2024 13:19:16 13.8 12.0-15.3 (g/dL) Final HCT 10/16/2024 13:19:16 40.9 36.0-45.2 (%) Final MCV 10/16/2024 13:19:16 98.8 81.5-97.5 (fL) Final MCH 10/16/2024 13:19:16 33.3 27.0-34.0 (pg) Final MCHC 10/16/2024 13:19:16 33.7 32.0-36.0 (g/dL) Final RDW 10/16/2024 13:19:16 12.8 11.5-15.5 (%) Final Platelets 10/16/2024 13:19:16 297 140-400 (K /uL) Final MPV 10/16/2024 13:19:16 9.4 6.6-11.1 ( fL) Final Performing Location [facility] [place] [address]
--- OUTSIDE RECORDS SUMMARY | 2024-11-28 05:29 | External Medical Summary | Summary of Care ---
Author Name Unknown Organization [facility] Address [address] [place] [address] Phone [phone] Care Team Providers Care Customer Experience Intern Name Role Phone Marilin MICHAELS MD, Aj Westfall Primary Care Provider [phone] Reason for Visit * Reason Onset Date Comments Forms Request 10/05/2024 Encounter Details Date Type Department Care Team (Late st Contact Info) Description 10/05/2024 Telephone General Internal Medicine [facility] [address] [place] [address] Ijeoma Kraus MD 200 [place] [address] Forms Request Allergies Active Allergy Reactions Criticality Noted Date Comments Nickel Rash 06/01/2018 documented as of this encounter (statuses as of 10/05/2024) Medications Acetaminophen 500 MG Oral Tablet Take [...] as of this encounter (statuses as of 10/05/2024) Active Problems Problem Noted Date Diagnosed Date [...] as of this encounter (statuses as of 10/05/2024) Resolved Problems Problem Noted Date Diagnosed Date Resolved Date Alcohol abuse, in remission 04/24/2023 04/24/2023 Routine medical exam 08/18/2010 018 documented as of this encounter (statuses as of 10/05/2024) Immunizations Name Administration Dates Next Due Covid-19, [...] encounter Miscellaneous Notes * Telephone Encounter - Cecilia Lopez CMA - 10/05/2024 10:41 AM EST In IM filing cabinet. * Telephone Encounter - Cecilia Lopez CMA - 10/05/2024 10:38 AM EST Patient seen in office yesterday, 10/04/[address] Kraus for physical. She presented yesterday for PPDread and dropped form off to be signed. Signed by Dr. Kraus and patient notified that it is ready for pear picker. documented in this encounter Plan of Treatment Upcoming Encounters Date Type Department Care Team (Late st Contact Info) Description 10/12/2024 2:30 PM EST Telemedicine Psychology [place] [address] [place] [phone] Krys Santos LCSW [address] [place] [phone] 10/16/2024 12:20 PM EST Office Visit Family Practice [facility] [address] [place] [address] Aj Gaston III, MD [address] [place] [address] Health Maintenance Due Date Last Done Comments [...] filedocumented as of this encounter Care Teams Customer Experience Intern Relationship Specialty Start Date End Date Aj Gaston III, MD [address] [place] [address] PCP - General Family Medicine 05/12/23 documented as of this encounter
--- OUTSIDE RECORDS SUMMARY | 2024-11-28 05:29 | External Medical Summary | Summary of Care ---
Author Name Unknown Organization [facility] Address [address] [facility] [place] [address] Phone [phone] Care Team Providers Care Material Spreader Name Role Phone Marilin MICHAELS MD, Aj Westfall Primary Care Provider [phone] Reason for Visit * Reason Onset Date Comments Appointment 10/12/2024 Encounter Details Date Type Department Care Team (Late st Contact Info) Description 10/12/2024 Telephone Psychology [place] [address] [place] [address] Krys Santos, [facility] [address] [place] [address] Appointment Allergies Active Allergy Reactions Criticality Noted Date Comments Nickel Rash 06/01/2018 documented as of this encounter (statuses as of 10/12/2024) Medications Acetaminophen 500 MG Oral Tablet Take [...] the morning. 90 Tablet 3 4 Active Additional Information Patient not taking.Reported on 10/12/2024 hydrOXYzine Pamoate 100 MG Oral Capsule Take [...] for Muscle spasms. 30 Tablet 5 Active DULoxetine HCl 30 MG Oral Capsule Delayed Release Sprinkle Take by mouth. Activ e documented as of this encounter (statuses as of 10/12/2024) Active Problems Problem Noted Date Diagnosed Date [...] as of this encounter (statuses as of 10/12/2024) Resolved Problems Problem Noted Date Diagnosed Date Resolved Date Alcohol abuse, in remission 04/24/2023 04/24/2023 Routine medical exam 08/18/2010 018 documented as of this encounter (statuses as of 10/12/2024) Immunizations Name Administration Dates Next Due Covid-19, [...] encounter Miscellaneous Notes * Telephone Encounter - Ana Paula Real OSA - 10/12/2024 3:13 PM EST Referral Details after Behavioral Health Intake: Referral: External Psych Resource: Per Cesar Santos SENIOR FIELD SERVICE ENGINEER recommendation for Psychiatry resources sent documented in this encounter Plan of Treatment Upcoming Encounters Date Type Department Care Team (Late st Contact Info) Description 10/16/2024 12:20 PM EST Office Visit Family Practice [facility] [address] [place] [address] Aj Gaston III, MD [address] [place] [address] Health Maintenance Due Date Last Done Comments [...] filedocumented as of this encounter Care Teams Material Spreader Relationship Specialty Start Date End Date Aj Gaston III, MD 200 [facility] [place] [address] PCP - General Family Medicine 05/12/23 documented as of this encounter
--- OUTSIDE RECORDS SUMMARY | 2024-11-28 05:29 | External Medical Summary | Summary of Care ---
Author Name Unknown Organization [facility] Address [address] [place] [address] Phone [phone] Care Team Providers Care Outdoor Emergency Care Technician Name Role Phone Marilin MICHAELS MD, Aj Westfall Primary Care Provider [phone] Reason for Visit * Reason Comments Physical-Exam Pt here for CPE for work and to have form filled out, Encounter Details Date Type Department Care Team (Latest Contact Info) Description 10/03/2024 1:00 PM EST Office Visit General Internal Medicine [facility] 200 [facility] [place] [address] Ijeoma Kraus MD 200 [place] [address] Routine medical exam*; Attention deficit hyperactivity disorder (ADHD), unspecified ADHD type; Alcohol abuse, uncomplicated Allergies Active Allergy Reactions Criticality Noted Date Comments Nickel Rash 06/01/2018 documented as of this encounter (statuses as of 10/03/2024) Medications Acetaminophen 500 MG Oral Tablet Take [...] as of this encounter (statuses as of 10/03/2024) Active Problems Problem Noted Date Diagnosed Date [...] as of this encounter (statuses as of 10/03/2024) Resolved Problems Problem Noted Date Diagnosed Date Resolved Date Alcohol abuse, in remission 04/24/2023 04/24/2023 Routine medical exam 08/18/201005/09/ 018 documented as of this encounter (statuses as of 10/03/2024) Immunizations Name Administration Dates Next Due Covid-19, [...] No 08/01/2024 Does the household have a [facility] source of income? (Household - for [...] Sign Reading Time Taken Comments Blood Pressure 92/62 10/03/2024 1:12 PM EST Pulse 79 10/03/2024 1:12 PM EST Temperature 37 C (98.6 F) 10/03/2024 1:12 PM EST Respiratory Rate 16 10/03/2024 1:12 PM EST Oxygen Saturation - - Inhaled Oxygen Concentration - - Weight 54 kg (119 lb) 10/03/2024 1:12 PM EST Height 162.6 cm (5' 4.02") 10/03/2024 1:12 PM ES T Body Mass Index 20.41 10/03/2024 1:12 PM EST documented in this encounter Progress Notes * Ijeoma Kraus MD - 10/03/2024 1:22 PM EST HPI: Emma Nathan is a 44 year old female who presents with: Chief Complaint Patient presents with Physical-Exam Pt here for CPE for work and to have form filled out, Patient is here for the physical. Chart reviewed with the patient including current meds, last labsand HM. No acute event since we saw patient last time including no recent fall or injuries. Pt brought the form with her and needs to be filled. Works for [email or web address]. Just had second test for 2 step PPD and will be back tomorrow to be read. Pt has issue with left SI joint and gets PT. Denies any chestpain/sob/palpitation/swealling in the legs. Denies any cough/sob/wheezing/chestpain. Denies nausea,vomiting, diarrhoea, constipation, abdominal pain or blood in stool. Denies heart burn. Has good appetite. No urinary symptoms. Denies any anxiety or depression. States have issue with heavy lifting and states gets muscle spasm an dhave used flexeril as needed which helps only to some extent. Doesn't drink alcohol any more. No seizure recently. Doesn't prefer any vaccines. Patient Active Problem List Diagnosis Tobacco use [...] mouth in the morning. 90 Tablet 3 Sertraline HCl 50 MG Oral Tablet (Zoloft) [...] 1 Capsule before bedtime. 90 Capsule 5 Cyclobenzaprine HCl 10 MG Oral Tablet (Flexeril) Take 1 Tablet by mouth 2 times a day as needed forMuscle spasms. 30 Tablet 0 DULoxetine HCl 30 MG Oral Capsule Delayed Release Sprinkle Take by mouth. Acetaminophen 500 MG Oral Tablet Take 1 Tablet by mouth every 6 hours as needed. valACYclovir HCl 1 GM Oral Tablet (Valtrex) [...] History Marital status: Single Occupational History Comment: [employer] Tobacco Use [...] Social History Narrative Not employed currently Social Needs Financial Resource Strain: Low Risk (08/01/2024) Financial [...] Stability Do you currently live in a long-term or have no steady place to sleep [...] negative except as per hpi. OBJECTIVE: BP 92/62 | Pulse 79 | Temp 98.6 F (37 C) (Tympanic) | Resp 16 | Ht 5' 4.02" (1.626 m) | Wt 119 lb (54 kg) | BMI 20.41 kg/m | BSA 1.56 m PHYSICAL EXAM: HEENT: PERRLA, EOMI, anicteric sclera, b/l tympanic membrane is pearly white, no erythema, no pharyngeal erythema, no lymphadenopathy, neck supple CVS: RRR, no murmurs, rubs or gallops, s1 s 2normal. RESP: clear to auscultation, no wheezing or crackles ABD: soft, NT/ND EXT: no edema, cyanosis, peripheral pulses palpable bilaterally No large joint swelling, no redness, range of motion normal. Skin normal. Gait normal. Mood stable No focal weakness ASSESSMENT AND PLAN: Routine medical exam (Primary) Regular diet and exercise discussed with the patient. Importance of doing exercise 3 times a week for 30 minutes discussed. Taking OTC vitamins and Calcium with vitamin D discussed with the patient. Pt does wear a seat belt and sees Slag Motor Operator and Dentist every year. Fall precautions advised to the patient. Importance of drinking more water atleast 6-8 glasses per day discussed with the patient. Alcoholic hepatitis without ascites Quit drinking since 06/07/24. Attention deficit hyperactivity disorder (ADHD), unspecified ADHD type Off [facility]. Alcohol abuse, uncomplicated Quit drinking and is sober since 06/20. Ijeoma Kraus MD documented in this encounter Plan of Treatment Upcoming Encounters Date Type Department Care Team (Late st Contact Info) Description 10/04/2024 3:30 PM EST Nurse Only Ancillary [facility] Huy Banegas [address] [place] [address] [place] Nurse Fam Prac [place] [address] [facility] [place] [address] 10/12/2024 2:30 PM EST Telemedicine Psychology [place] [address] [place], [place] [address] Krys Santos Maricruz, MEDART OPERATOR [address] [place] [address] 10/16/2024 12:20 PM EST Office Visit Family Practice [facility] [place] [address] [facility] [place] [address] Aj Gaston III, MD 200 [facility] [place] [address] Health Maintenance Due Date Last Done Comments [...] medical examination at a health care facility Attention deficit hyperactivity disorder (ADHD), unspecified ADHD type Alcohol abuse, uncomplicated documented in this encounter Care Teams Outdoor Emergency Care Technician Relationship Specialty Start Date End Date Aj Gaston III, MD 200 [place] [address] PCP - General Family Medicine 05/12/23 documented as of this encounter
--- OUTSIDE RECORDS SUMMARY | 2024-11-28 05:29 | External Medical Summary | Summary of Care ---
Author Name Unknown Organization [facility] Address [address] [place] [address] Phone [phone] Care Team Providers Care Fire Engine Operator Name Role Phone Marilin MICHAELS MD, Aj Westfall Primary Care Provider [phone] Reason for Visit * Reason Onset Date Comments PPD Skin Test 10/02/2024 Encounter Details Date Type Department Care Team (Late st Contact Info) Description 10/02/2024 3:30 PM EST Nurse Only Ancillary [facility] [address] [facility] [place] [address] [place], Nurse Fam Prac [facility] [address] [facility] [place] [address] PPD Skin Test Allergies Active Allergy Reactions Criticality Noted Date Comments Nickel Rash 06/01/2018 documented as of this encounter (statuses as of 10/02/2024) Medications Acetaminophen 500 MG Oral Tablet Take [...] for Muscle spasms. 30 Tablet 09/29/2024 Active documented as of this encounter (statuses as of 10/02/2024) Active Problems Problem Noted Date Diagnosed Date Major depressive disorder, recurrent episode, mo derate 11/15/2018 Depression with anxiety 10/19/2016 Malaise and fatigue 08/18/2010 Tobacco use disorder 11/02/2007 Elevated liver enzymes Migraine Insomnia documented as of this encounter (statuses as of 10/02/2024) Resolved Problems Problem Noted Date Diagnosed Date Resolved Date Alcohol abuse, in remission 04/24/2023 04/24/2023 Routine medical exam 08/18/2010 018 documented as of this encounter (statuses as of 10/02/2024) Immunizations Name Administration Dates Next Due Covid-19, [...] on file documented as of this encounter Patient Instructions * Patient Instructions* Sandra Barragan LPN - 10/02/2024 4:18 PM EST PATIENT INSTRUCTIONS FOR TUBERCULOSIS TESTING Also known as: Purified Protein Derivative (PPD) Whether you have active TB disease or simply test positive for TB infection, you must see a healthcare professional for evaluation and treatment. Tuberculosis (TB) is a disease that spreads through the air. It can cause serious health problems. TB is on the rise. To protect your health, get tested. Who Should Be Tested? Anyone can be exposed to TB. However, certain people are at higher risk for exposure, especially healthcare professionals, the homeless, and people coming from countries with high TB rates. People whose bodies are less able to fight off infections, such as the elderly and people with HIV and AIDS, are also more likely to get TB. If youre at risk for exposure, get tested regularly. The TB Skin Test The TB skin test tells you if the tuberculosis bacteria are in your body. Your healthcare professional places a small amount of solution under the skin with a needle to see if a reaction occurs. Keepin mind that although many people are infected with TB, very few develop TB disease. Getting Your TB Test Results Within 2-3 days after the test, youll be asked to return to your healthcare professional. Be sure to keep this appointment. Your test results will be evaluated during this visit. In some cases, a second test may be done to confirm results. What Do the Test Results Mean? Negative results mean you likely dont have the TB bacteria in your body. Positive results mean that you may have been infected with the TB bacteria. This doesnt necessarily mean you have active TB disease. More tests, such as chest x-rays, are needed to find out if youhave TB disease. [id number] Saritha Santos, [address] [place] [address], [place] [address]. All rights reserved. This information is not intended as a substitute for professional medical care. Always follow your healthcare professional's instructions. documented in this encounter Progress Notes * Sandra Barragan LPN - 10/02/2024 4:18 PM EST Pt here for PPD administration. Has patient ever had a positive PPD Screening Test? No Has patient ever had the BCG tuberculosis vaccine? No If the patient responds yes to any of the questions, they are NOT eligible for a PPD. DO NOT administer the PPD Screening Test and Notify the provider. Time Out Procedure Performed: Yes Patient Identified (Ask Name/Date of ): Yes Immunization(s) verified: Yes, Immunization Name: PPD, VIS Sheet(s) given: Yes Verified Side and Site: Yes Verified Shot(s) with Parent(s)/Patient: Yes PPD applied at 4:18 PM and patient tolerated well. Patient to return to clinic in 48 hours for PPD Reading. documented in this encounter Plan of Treatment Upcoming Encounters Date Type Department Care Team (Late st Contact Info) Description 10/03/2024 11:40 AM EST Office Visit Family Practice [facility] [place] [address] [place] [address] Marilin Aj MICHAELS MD [address] [facility] [place] [address] 10/04/2024 3:30 PM EST Nurse Only Ancillary [facility] [place] [address] [place] [address] [place] Nurse Fam Prac [facility] [address] [place] [address] 10/12/2024 2:30 PM EST Telemedicine Psychology [facility] [place] [address] [place] [address] Dawityohana Krys Alcantara, HR PAYROLL COORDINATOR [address] [place] [address] Health Maintenance Due Date Last Done [...] as of this encounter Visit Diagnoses Diagnosis Screening-pulmonary TB- Primary Screening examination for pulmonary tuberculosis documented in this encounter Care Teams Fire Engine Operator Relationship Specialty Start Date End Date Aj Gaston III, MD [address] [place] [address] PCP - General Family Medicine 05/12/23 documented as of this encounter
--- OUTSIDE RECORDS SUMMARY | 2024-11-28 05:29 | External Medical Summary | Summary of Care ---
Author Name Unknown Organization [facility] Address [address] [place] [address] Phone [phone] Care Team Providers Care Editing Internship Name Role Phone Marilin MICHAELS MD, Aj Westfall Primary Care Provider [phone] Reason for Visit * Reason Comments Outpatient Testing Encounter Details Date Type Department Care Team (Late st Contact Info) Description 09/25/2024 1:10 PM EST Laboratory Laboratory [facility] [address] [place] [phone] [facility] [place] [address] Elevated lipase Allergies Active Allergy Reactions Criticality Noted Date Comments Nickel Rash 06/01/2018 documented as of this encounter (statuses as of 09/25/2024) Medications Acetaminophen 500 MG Oral Tablet Take 1 Tablet by mouth every 6 hours as needed. Active Amitriptyline HCl 50 MG Oral Tablet (Elavil) Take 2.5 Tablets by mouth at bedtime. 75 Tablet 3 06/17/2024 Active Torsemide 10 MG Oral Tablet (Demadex)Indica tions:Pedal edema Take 1 Tablet by mouth in the morning. 90 Tablet 3 08/18/2024 Active Cyclobenzaprine HCl 10 MG Oral Tablet (Flexeril) Take 1 Tablet by mouth 2 times a day as needed for Muscle spasms. 30 Tablet 08/26/2024 Active Sertraline HCl 50 MG Oral Tablet [...] 7 DAYS 14 Tablet 1 09/04/2024 Active documented as of this encounter (statuses as of 09/25/2024) Active Problems Problem Noted Date Diagnosed Date Major depressive disorder, recurrent episode, mo derate 11/15/2018 Depression with anxiety 10/19/2016 Malaise and fatigue 08/18/2010 Tobacco use disorder 11/02/2007 Elevated liver enzymes Migraine Insomnia documented as of this encounter (statuses as of 09/25/2024) Resolved Problems Problem Noted Date Diagnosed Date Resolved Date Alcohol abuse, in remission 04/24/2023 04/24/2023 Routine medical exam 08/18/2010 018 documented as of this encounter (statuses as of 09/25/2024) Immunizations Name Administration Dates Next Due Covid-19, [...] 10/02/2024 3:30 PM EST Nurse Only Ancillary [facility] [address] [facility] [place] [address] Park, Nurse Fam Prac [facility] 200 [facility] [place] [address] 10/03/2024 11:40 AM EST Office Visit Family Practice [facility] 200 [facility] [place] [address] Aj Gaston III, MD 200 [facility] [place] [address] 10/12/2024 2:30 PM EST Telemedicine Psychology [place] [address] [place] [address] Krys Santos LCSW [address] [place] [address] Pending Results Name Type Priority Associated Diagnoses Date /Time LIPASE Lab Routine Elevated lipase 09/25/2024 1:19 PM EST Health Maintenance Due Date Last [...] of this encounter Visit Diagnoses Diagnosis Elevated lipase Other nonspecific abnormal serum enzyme levels documented in this encounter Care Teams Editing Internship Relationship Specialty Start Date End Date Aj Gaston III, MD [address] [place] [address] PCP - General Family Medicine 05/12/23 documented as of this encounter
--- OUTSIDE RECORDS SUMMARY | 2024-11-28 05:29 | External Medical Summary ---
Author Name Unknown Address Unknown Organization [facility] - [address] [place] [address] Laboratory Report Ordering Provider Test Date Status MICHAEL NAIK III 10/16/2024 13:19:16 Final Observation Date Value Abnormality Reference (Units ) Status Lipase 10/16/2024 13:19:16 49 13-60 (U/L ) Final Performing Location [facility] [address] [place] [address]
--- OUTSIDE RECORDS SUMMARY | 2024-11-28 05:29 | External Medical Summary | Summary of Care ---
Author Name Unknown Organization [facility] Address [address] [place] [address] Phone [phone] Care Team Providers Care Glass Cutting Machine Operator Name Role Phone Marilin MICHAELS MD, Aj Westfall Primary Care Provider [phone] Reason for Visit * Reason Comments TB Test Reading Encounter Details Date Type Department Care Team (Late st Contact Info) Description 09/21/2024 3:00 PM EST Nurse Only Ancillary [facility] [address] [facility] [place] [address] Park, Nurse Fam [facility] [address] [place] [address] TB Test Reading Allergies Active Allergy Reactions Criticality Noted Date Comments Nickel Rash 06/01/2018 documented as of this encounter (statuses as of 09/21/2024) Medications Acetaminophen 500 MG Oral Tablet Take [...] as of this encounter (statuses as of 09/21/2024) Active Problems Problem Noted Date Diagnosed Date Major depressive disorder, recurrent episode, mo derate 11/15/2018 Depression with anxiety 10/19/2016 Malaise and fatigue 08/18/2010 Tobacco use disorder 11/02/2007 Elevated liver enzymes Migraine Insomnia documented as of this encounter (statuses as of 09/21/2024) Resolved Problems Problem Noted Date Diagnosed Date Resolved Date Alcohol abuse, in remission 04/24/2023 04/24/2023 Routine medical exam 08/18/2010 018 documented as of this encounter (statuses as of 09/21/2024) Immunizations Name Administration Dates Next Due Covid-19, [...] as of this encounter Progress Notes * Janie Bush LPN - 09/21/2024 3:16 PM EST Patient here for PPD reading. PPD Results: 0 mm documented in this encounter Plan of Treatment Upcoming Encounters Date Type Department Care Team (Late st Contact Info) Description 10/02/2024 3:30 PM EST Nurse Only Ancillary [address] [place] [address] Park, Nurse Fam Prac [address] [place] [address] 10/03/2024 11:40 AM EST Office Visit Family Practice [facility] 200 [facility] [place] [address] Aj Gaston III, MD 200 [facility] [place] [address] 10/12/2024 2:30 PM EST Telemedicine Psychology [place] [address] [address] Krys Santos LCSW [address] [address] Health Maintenance Due [...] filedocumented as of this encounter Care Teams Glass Cutting Machine Operator Relationship Specialty Start Date End Date Aj Gaston III, MD 200 [facility] [place] [address] PCP - General Family Medicine 05/12/23 documented as of this encounter
--- OUTSIDE RECORDS SUMMARY | 2024-11-28 05:29 | External Medical Summary | Summary of Care ---
Author Name Unknown Organization [facility] Address [address] [place] [address] Phone [phone] Care Team Providers Care Slide Developer Name Role Phone Marilin MICHAELS MD, Aj Westfall Primary Care Provider [phone] Reason for Visit * Reason Comments Follow Up Pt following up rega rding anxiety and back issues Encounter Details Date Type Department Care Team (Late st Contact Info) Description 10/16/2024 12:20 PM EST Office Visit Family Practice [facility] 200 [facility] [place] [address] Aj Gaston III, MD 200 [place] [address] Anxiety*; Alcoholic hepatitis without ascites; Other pancytopenia [...] No 08/01/2024 Does the household have a [facility] source [facility] income? (Household - for [...] necrosis documented in this encounter Care Teams Slide Developer Relationship Specialty Start Date End Date Aj Gaston III, MD [address] [place] [address] PCP - General Family Medicine 05/12/23 documented as of this encounter
--- OUTSIDE RECORDS SUMMARY | 2024-11-28 05:29 | External Medical Summary | Summary of Care ---
Author Name Unknown Organization [facility] Address [address] [place] [address] Phone [phone] Care Team Providers Care Detective Supervisor Name Role Phone Marilin MICHAELS MD, Aj Westfall Primary Care Provider [phone] Reason for Visit * Reason Onset Date Comments Forms Request 09/21/2024 Encounter Details Date Type Department Care Team (Late st Contact Info) Description 09/21/2024 Telephone Family Practice [facility] 200 [facility] [place] [address] Aj Gaston III, MD 200 [facility] [place] [address] Forms Request Allergies Active Allergy Reactions Criticality Noted Date Comments Nickel Rash 06/01/2018 documented as of this encounter (statuses as of 10/09/2024) Medications Acetaminophen 500 MG Oral Tablet Take [...] as of this encounter (statuses as of 10/09/2024) Active Problems Problem Noted Date Diagnosed Date [...] as of this encounter (statuses as of 10/09/2024) Resolved Problems Problem Noted Date Diagnosed Date Resolved Date Alcohol abuse, in remission 04/24/2023 04/24/2023 Routine medical exam 08/18/2010 018 documented as of this encounter (statuses as of 10/09/2024) Immunizations Name Administration Dates Next Due Covid-19, [...] encounter Miscellaneous Notes * Telephone Encounter - Janie Bush LPN - 09/21/2024 3:22 PM EST Patient dropped off form for 2 step PPD. Placed in the "pending forms" folder documented in this encounter Plan of Treatment Upcoming Encounters Date Type Department Care Team (Late st Contact Info) Description 10/12/2024 2:30 PM EST Telemedicine Psychology [place] [facility] [address] [phone] Krys Santos LCSW [address] [phone] 10/16/2024 12:20 PM EST Office Visit Family Practice [facility] [place] [address] [place] [address] Aj Gaston III, MD [address] [place] [address] Health Maintenance Due Date Last Done Comments [...] filedocumented as of this encounter Care Teams Detective Supervisor Relationship Specialty Start Date End Date Aj Gaston III, MD 200 [facility] [place] [address] PCP - General Family Medicine 05/12/23 documented as of this encounter
--- OUTSIDE RECORDS SUMMARY | 2024-11-28 05:29 | External Medical Summary ---
Author Name Unknown Address Unknown Organization [facility] - [address] [place] [address] Laboratory Report Ordering Provider Test Date Status MICHAEL NAIK III 10/16/2024 13:19:16 Final Observation Date Value Abnormality Reference (Units ) Status BUN 10/16/2024 13:19:16 20 6-20 (mg/dL) Final Creatinine 10/16/2024 13:19:16 1.0 0.5-1.0 (mg/dL) Final Glomerular filtration rate/1.73 sq M.predicted [Volume Rate/Area] in Serum, Plasma or Blood by Creatinine-based formula (CKD-EPI) 10/16/2024 13:19:16 73 >=60 (mL/min) Final eGFR is calculated based on the CKD-EPI 2020 equation. Sodium 10/16/2024 13:19:16 139 135-146 (m mol/L) Final Potassium 10/16/2024 13:19:16 4.1 3.5-5.1 (m mol/L) Final Cl 10/16/2024 13:19:16 99 98-107 (mm ol/L) Final CO2 10/16/2024 13:19:16 26 22-32 (mmo l/L) Final Anion gap 10/16/2024 13:19:16 14 7-15 (mmol /L) Final Glucose 10/16/2024 13:19:16 97 70-120 (mg /dL) Final Albumin 10/16/2024 13:19:16 4.6 3.8-5.0 (g /dL) Final AST (Aspartate aminotransferase) 10/16/2024 13:19:16 19 10-35 (U/L) Fin al Alk Phos 10/16/2024 13:19:16 95 35-130 (U/ L) Final Bilirubin, Total 10/16/2024 13:19:16 0.3 <=1 .2 (mg/dL) Final Calcium 10/16/2024 13:19:16 9.9 8.4-10.2 ( mg/dL) Final Protein 10/16/2024 13:19:16 7.5 6.0-8.3 (g /dL) Final ALT (Alanine aminotransferase) 10/16/2024 13:19:16 8 Below low normal 10-35 (U/L) Final Performing Location [facility] - [address] [place] [address]
--- OUTSIDE RECORDS SUMMARY | 2024-11-28 05:29 | External Medical Summary ---
Author Name Unknown Address Unknown Organization K01:[facility] - [address] [place] [address] Laboratory Report Ordering Provider Test Date Status MICHAEL NAIK III 09/25/2024 13:19:43 Final Observation Date Value Abnormality Reference (Units ) Status Lipase 09/25/2024 13:19:43 93 Above high normal 13 -60 (U/L) Final Performing Location [facility] - [address] [place] [address]
--- OUTSIDE RECORDS SUMMARY | 2024-11-28 05:29 | External Medical Summary | Summary of Care ---
Author Name Unknown Organization [facility] Address [address] [place] [address] Phone [phone] Care Team Providers Care Senior Reactor Operator Name Role Phone Marilin MICHAELS MD, Aj Westfall Primary Care Provider [phone] Reason for Referral * Evaluate & Treat - Unlimited Visits (Within 30 days (routine)) - Pending Review Specialty Diagnoses / Procedures Referred By Melissa peace Referred To Contact Physical Therapy / Physical Medicine And Rehab Diagnoses Acute left-sided low back pain with left-sided sciatica Aj Gaston III, MD [address] [place] [address] Phone: tel: fax: Referral ID Status Reason Start Date Expiration Date Visits Requested Visits Authorized [id number] Pending Review Specialty Services Required 10/06/[phone] Question Answer Referral Priority Within 30 days (routine) Where should this appointment be scheduled? External Reason for Visit * Reason Onset Date Comments Referral 10/05/2024 PT Encounter Details Date Type Department Care Team (Late st Contact Info) Description 10/05/2024 Telephone Family Practice [facility] [place] [address] [place] [address] Aj Gaston III, MD [address] [place] [address] Referral (PT) Allergies Active Allergy Reactions Criticality Noted Date Comments Nickel Rash 06/01/2018 documented as of this encounter (statuses as of 10/06/2024) Medications Acetaminophen 500 MG Oral Tablet Take [...] as of this encounter (statuses as of 10/06/2024) Active Problems Problem Noted Date Diagnosed Date [...] as of this encounter (statuses as of 10/06/2024) Resolved Problems Problem Noted Date Diagnosed Date Resolved Date Alcohol abuse, in remission 04/24/2023 04/24/2023 Routine medical exam 08/18/2010 018 documented as of this encounter (statuses as of 10/06/2024) Immunizations Name Administration Dates Next Due Covid-19, [...] encounter Miscellaneous Notes * Telephone Encounter - Darlin Posadas RN - 10/06/2024 2:12 PM EST Provider to address: NA Reason for Call: No chief complaint on file. Contact: Telephone Call Contact Type: Orders Provider In-Basket: Yes Outcome: Pt referral signed and faxed Face to face time spent with Patient (minutes): 0 Total Time including non face to face (minutes): 10 * Telephone Encounter - Nicole Encarnacion LPN - 10/06/2024 1:31 PM EST Was discussed at 10/03 visit * Telephone Encounter - Samantha Deutsch OSA - 10/05/2024 8:08 AM EST Has the patient been seen for this problem? (Y/N)?: y Patient wasn't seen within 30 days of original referral is the reason Darnell needs new referral sent If No, an appt needs to be scheduled before a referral will be placed (exception: proceed with referral request if referral request is for a yearly routine appointment with speciality) Patient Name: Emma Ngyuễn HeRosana Patient Primary care provider: jA Gaston III, MD Does this need to be an insurance referral (Y/N)?: y If Yes, does the insurance referral need to be placed into the [employer] system? Name of preferred specialist: [facility] physical therapy Type of specialist: Physical therapy Location of specialist: [facility] Phone #: [phone] Specialist[facility] Fax #: [phone] Reason for visit: Acute left-sided low back pain with left-sided sciatica Date of visit: 10.05.2024 documented in this encounter Plan of Treatment Upcoming Encounters Date Type Department Care Team (Late st Contact Info) Description 10/12/2024 2:30 PM EST Telemedicine Psychology [place] [address] [phone] Krys Sanots LCSW [address] [address] 10/16/2024 12:20 PM EST Office Visit [address] [place] [address] Aj Gaston III, MD [address] [place] [address] Scheduled Referrals Name Type Priority Associated Diagnoses Orde r Schedule PHYSICAL THERAPY REFERRAL OP Referral Within 30 days (routine) Acute left-sided low back pain with left-sided sciatica Ordered: 10/06/2024 Health Maintenance Due Date Last Done Comments [...] as of this encounter Visit Diagnoses Diagnosis Acute left-sided low back pain with left-sided sciatica- Primary documented in this encounter Care Teams Senior Reactor Operator Relationship Specialty Start Date End Date Aj Gaston III, MD [address] [place] [address] PCP - General Family Medicine 05/12/23 documented as of this encounter
--- OUTSIDE RECORDS SUMMARY | 2024-11-28 05:30 | External Medical Summary | Summary of Care ---
Author Name Unknown Organization [facility] Address [address] [place] [address] Phone [phone] Care Team Providers Care Spanish Interpreter Name Role Phone Marilin MICHAELS MD, Aj Westfall Primary Care Provider [phone] Reason for Visit * Reason Onset Date Comments Medication Refill 09/01/2024 Encounter Details Date Type Department Care Team (Late st Contact Info) Description 09/01/2024 Refill Family Practice [facility] 200 [place] [address] Aj Gaston III, MD 200 [place] [address] Allergies Active Allergy Reactions Criticality Noted Date Comments Nickel Rash 06/01/2018 documented as of this encounter (statuses as of 09/01/2024) Medications Acetaminophen 500 MG Oral Tablet Take 1 Tablet by mouth every 6 hours as needed. Active valACYclovir HCl 1 GM Oral Tablet (Valtrex) TAKE 1 TABLET BY MOUTH IN THE MORNING AND 1 TAB BEFORE BEDTIME FOR 7 DAYS 14 Tablet 1 01/14/2024 Active Amitriptyline HCl 50 MG Oral Tablet [...] before bedtime. 90 Capsule 5 09/01/2024 Active documented as of this encounter (statuses as of 09/01/2024) Active Problems Problem Noted Date Diagnosed Date Major depressive disorder, recurrent episode, mo derate 11/15/2018 Depression with anxiety 10/19/2016 Malaise and fatigue 08/18/2010 Tobacco use disorder 11/02/2007 Elevated liver enzymes Migraine Insomnia documented as of this encounter (statuses as of 09/01/2024) Resolved Problems Problem Noted Date Diagnosed Date Resolved Date Alcohol abuse, in remission 04/24/2023 04/24/2023 Routine medical exam 08/18/2010 018 documented as of this encounter (statuses as of 09/01/2024) Immunizations Name Administration Dates Next Due Covid-19, [...] Notes * Telephone Encounter - Shanon Gray kennel technician - 09/01/2024 10:27 AM EST Pt calling to request Gabapentin 400 MG Oral Capsule (Neurontin) . Informed pt that RX is availableat their pharmacy. Pt verbalized understanding and stated they will check with their pharmacy regarding this medication. Thank you for your assistance Shanon Gray Aquatic Scientist II [facility] 09/01/2024,10:27 AM documented in this encounter Plan of Treatment Upcoming Encounters Date Type Department Care Team (Late st Contact Info) Description 09/12/2024 4:15 PM EST Imaging Radiology [address], [address] [place] [address] 10/02/2024 9:20 AM EST [facility] [place] [address] [place] [address] Aj Gaston III, MD [address] [facility] [place] [address] 10/03/2024 11:40 AM EST Office Visit [facility] [place] [address] [place] [address] Aj Gaston III, MD [address] [place] [address] 10/12/2024 2:30 PM EST Telemedicine Psychology [facility] [place] [address] [place] [address] Krys Santos, BOBTAIL DRIVER [address] [place] [address] 10/12/2024 5:00 PM EST Office Visit [facility] 200 [place] [address] Therese Perez PA-C 200 [facility] [place] [address] Health Maintenance Due Date Last Done Comments Hepatitis B Vaccine (1 of 3 - 19+ 3-dose series) 2001 HPV/Co-Test 2012 COVID-19 Vaccine ( - 2023- season) 2024 09/23/2022 Influenza Vaccine [...] filedocumented as of this encounter Care Teams Spanish Interpreter Relationship Specialty Start Date End Date Aj Gaston III, MD 200 [facility], [place] [id number] PCP - General Family Medicine 05/12/23 documented as of this encounter
--- OUTSIDE RECORDS SUMMARY | 2024-11-28 05:30 | External Medical Summary | Summary of Care ---
Author Name Unknown Organization [facility] Address [address] [place] [address] Phone [phone] Care Team Providers Care Special Warfare Combatant Crewman Name Role Phone Marilin MICHAELS MD, Gumaro Westfall Primary Care Provider [phone] Reason for Visit * Reason Onset Date Comments Medication Refill 09/02/2024 Encounter Details Date Type Department Care Team (Late st Contact Info) Description 09/02/2024 Refill Family Practice [facility] 200 [place] [address] Gumaro Rodriguez III, MD 200 [place] [address] Allergies Active Allergy Reactions Criticality Noted Date Comments Nickel Rash 06/01/2018 documented as of this encounter (statuses as of 09/04/2024) Medications Acetaminophen 500 MG Oral Tablet Take 1 Tablet by mouth every 6 hours as needed. Active Amitriptyline HCl 50 MG Oral Tablet (Elavil) Take 2.5 Tablets by mouth at bedtime. 75 Tablet 3 4 Active Torsemide 10 MG Oral Tablet (Demadex)Indica tions:Pedal edema Take 1 Tablet by mouth in the morning. 90 Tablet 3 4 Active Cyclobenzaprine HCl 10 MG Oral Tablet (Flexeril) Take 1 Tablet by mouth 2 times a day as needed for Muscle spasms. 30 Tablet 4 Active Sertraline HCl 50 MG Oral [...] 7 DAYS 14 Tablet 1 4 Active valACYclovir HCl 1 GM Oral Tablet (Valtrex) TAKE 1 TABLET BY MOUTH IN THE MORNING AND 1 TAB BEFORE BEDTIME FOR 7 DAYS 14 Tablet 1 4 09/02/20 24 Discontinu ed(Refill) documented as of this encounter (statuses as of 09/04/2024) Active Problems Problem Noted Date Diagnosed Date Major depressive disorder, recurrent episode, mo derate 11/15/2018 Depression with anxiety 10/19/2016 Malaise and fatigue 08/18/2010 Tobacco use disorder 11/02/2007 Elevated liver enzymes Migraine Insomnia documented as of this encounter (statuses as of 09/04/2024) Resolved Problems Problem Noted Date Diagnosed Date Resolved Date Alcohol abuse, in remission 04/24/2023 04/24/2023 Routine medical exam 08/18/2010 018 documented as of this encounter (statuses as of 09/04/2024) Immunizations Name Administration Dates Next Due Covid-19, [...] Telephone Encounter - Martha Diamond RPh - 09/04/2024 1:21 PM ESTSigned Prescriptions: Disp Refills valACYclovir HCl 1 GM Oral Tablet (Valtrex)14 Tab*1 Sig: TAKE 1 TABLET BY MOUTH IN THE MORNING AND 1 TAB BEFORE BEDTIME FOR 7 DAYSAuthorizing Provider: GUMARO RODRIGUEZ III User: MARTHA DIAMOND documented in this encounter Plan of Treatment Upcoming Encounters Date Type Department Care Team (Late st Contact Info) Description 09/07/2024 8:00 AM EST Office Visit Family Practice [facility] [place] [address] [place] [address] Gumaro Rodriguez III, MD [address] [place] [address] 09/12/2024 4:15 PM EST Imaging Radiology [address], [place] [address] [place] [address] 10/03/2024 11:40 AM EST Office Visit [facility] [address] [facility] [place] [address] Gumaro Rodriguez III, MD 200 [facility] [place] [address] 10/12/2024 2:30 PM EST Telemedicine Psychology [place] [address] [place] [address] Krys Santos, SELECTOR PACKER [address] [place] [address] 10/12/2024 5:00 PM EST Office Visit [facility] 200 [facility] [place] [address] Therese Perez PA-C 200 [facility] [place] [address] Health Maintenance Due Date Last Done Comments [...] filedocumented as of this encounter Care Teams Special Warfare Combatant Crewman Relationship Specialty Start Date End Date Gumaro Rodriguez III, MD [address] [facility] [place] [address] PCP - General Family Medicine 05/12/23 documented as of this encounter
--- OUTSIDE RECORDS SUMMARY | 2024-11-28 05:30 | External Medical Summary | Summary of Care ---
Author Name Unknown Organization [facility] Address [address] [place] [address] Phone [phone] Care Team Providers Care Web Art Director Name Role Phone Marilin MICHAELS MD, Aj Westfall Primary Care Provider [phone] Reason for Visit * Reason Onset Date Comments Test Results 08/29/2024 Encounter Details Date Type Department Care Team (Late st Contact Info) Description 08/29/2024 Telephone Family Practice [facility] 200 [place] [address] Aj Gaston III, MD 200 [place] [address] Test Results Allergies Active Allergy Reactions Criticality Noted Date Comments Nickel Rash 06/01/2018 documented as of this encounter (statuses as of 09/05/2024) Medications Acetaminophen 500 MG Oral Tablet Take [...] the morning. 90 Tablet 3 4 Active valACYclovir HCl 1 GM Oral Tablet (Valtrex) TAKE 1 TABLET BY MOUTH IN THE MORNING AND 1 TAB BEFORE BEDTIME FOR 7 DAYS 14 Tablet 1 4 09/02/20 24 Discontinu ed(Refill) Gabapentin 400 MG Oral Capsule (Neurontin) Take 1 Capsule by mouth in the morning and 1 Capsule at noon and 1 Capsule before bedtime. 4 08/31/20 24 Discontinu ed(Refill) documented as of this encounter (statuses as of 09/05/2024) Active Problems Problem Noted Date Diagnosed Date Major depressive disorder, recurrent episode, mo derate 11/15/2018 Depression with anxiety 10/19/2016 Malaise and fatigue 08/18/2010 Tobacco use disorder 11/02/2007 Elevated liver enzymes Migraine Insomnia documented as of this encounter (statuses as of 09/05/2024) Resolved Problems Problem Noted Date Diagnosed Date Resolved Date Alcohol abuse, in remission 04/24/2023 04/24/2023 Routine medical exam 08/18/2010 018 documented as of this encounter (statuses as of 09/05/2024) Immunizations Name Administration Dates Next Due Covid-19, [...] Telephone Encounter - Janell Ag LPN - 08/29/2024 4:41 PM EST Left message for patient to return call. Please relay Dr. Gaston's message below. Will also send patient a my g message. * Telephone Encounter - Aj Gaston III, MD - 08/29/2024 11:34 AM EST Rechecked in 2 weeks continue no alcohol * Telephone Encounter - Janell Ag LPN - 08/29/2024 10:01 AM EST Does she need to have it rechecked? Any other info to relay to patient? * Telephone Encounter - Janell Ag LPN - 08/29/2024 10:00 AM EST ----- Message from Aj Gaston MD sent at 08/28/2024 11:51 AM EST ----- Call please lipase elevated but is lower than it was 3 weeks ago documented in this encounter Plan of Treatment Upcoming Encounters Date Type Department Care Team (Late st Contact Info) Description 09/07/2024 8:00 AM EST Office Visit Family Practice [facility] [place] 200 [facility] [place] [address] Aj Gaston III, MD 200 [facility] [place] [address] 09/12/2024 4:15 PM EST Imaging Radiology [facility] 1st [facility] [place] [address] [facility] [place] [address] 10/03/2024 11:40 AM EST Office Visit [facility] [address] [place] [address] Aj Gaston III, MD 200 [facility] [place] [address] 10/12/2024 2:30 PM EST Telemedicine Psychology Shadia Godfrey, [place] [address] [place] [address] Krys Santos, MACHINE STRIPER [address] [place] [address] 10/12/2024 5:00 PM EST Office Visit [facility] [address] [place] [address] Therese Perez PA-C 200 [facility] [place] [address] Scheduled Orders Name Type Priority Associated Diagnoses Orde r Schedule LIPASE Lab Routine Elevated lipase Expected: 08/29/2024 (Approximate), Expires: 08/29/2025 Health Maintenance Due Date Last Done Comments [...] of this encounter Visit Diagnoses Diagnosis Elevated lipase- Primary Other nonspecific abnormal serum enzyme levels documented in this encounter Care Teams Web Art Director Relationship Specialty Start Date End Date Aj Gaston III, MD 200 [facility] [place] [address] PCP - General Family Medicine 05/12/23 documented as of this encounter
--- OUTSIDE RECORDS SUMMARY | 2024-11-28 05:30 | External Medical Summary | Summary of Care ---
Author Name Unknown Organization [facility] Address [address] [place] [address] Phone [phone] Care Team Providers Care [employer] Task [employer] Planners Name Role Phone Marilin MIHCAELS MD, Aj Westfall Primary Care Provider [phone] Encounter Details Date Type Department Care Team (Late st Contact Info) Description 09/01/2024 Orders Only PATIENT PORTAL DO NOT DELETE THIS DEPT USED BY [place] [id number] Allergies Active Allergy Reactions Criticality Noted Date [...] Description 09/12/2024 4:15 PM EST Imaging Radiology [address], [place] 132 [facility] [place] [address] 10/02/2024 9:20 AM EST Office Visit [facility] [place] [address] [place] [address] Aj Gaston III, MD [address] [facility] [place] [address] 10/03/2024 11:40 AM EST Office Visit [facility] [place] [address] Aj Gaston III, MD [address] [facility] [place] [address] 10/12/2024 2:30 PM EST Telemedicine Psychology [place] [address] [place] [address] Krys Santos, ICING MACHINE OPERATOR [address] [place] [address] 10/12/2024 5:00 PM EST Office Visit [facility] [address] [place] [address] Therese Perez PA-C [address] [facility] [place] [address] Health Maintenance Due Date Last Done Comments Hepatitis B Vaccine (1 of 3 - 19+ 3-dose series) 2001 HPV/Co-Test 2012 COVID-19 Vaccine (2 - 2024-25 season) 2024 09/23/2022 Influenza Vaccine (FLU shot) [...] as of this encounter Care Teams [employer] Planners Relationship Specialty Start Date End Date Aj Gaston III, MD 200 [facility] [place] [address] PCP - General Family Medicine 05/12/23 documented as of this encounter
--- OUTSIDE RECORDS SUMMARY | 2024-11-28 05:30 | External Medical Summary | Summary of Care ---
Author Name Unknown Organization [facility] Address [address] [place] [address] Phone [phone] Care Team Providers Care Weaving Loom Operator Name Role Phone Marilin MICHAELS MD, Aj Westfall Primary Care Provider [phone] Reason for Visit * Reason Onset Date Comments Medication Refill 07/13/2024 Encounter Details Date Type Department Care Team (Late st Contact Info) Description 07/13/2024 Refill Family Practice [facility] 200 [facility] [place] [address] Aj Gaston III, MD 200 [place] [address] Allergies Active Allergy Reactions Criticality Noted Date Comments Nickel Rash 06/01/2018 documented as of this encounter (statuses as of 09/07/2024) Medications Acetaminophen 500 MG Oral Tablet Take [...] as of this encounter (statuses as of 09/07/2024) Active Problems Problem Noted Date Diagnosed Date Major depressive disorder, recurrent episode, mo derate 11/15/2018 Depression with anxiety 10/19/2016 Malaise and fatigue 08/18/2010 Tobacco use disorder 11/02/2007 Elevated liver enzymes Migraine Insomnia documented as of this encounter (statuses as of 09/07/2024) Resolved Problems Problem Noted Date Diagnosed Date Resolved Date Alcohol abuse, in remission 04/24/2023 04/24/2023 Routine medical exam 08/18/2010 018 documented as of this encounter (statuses as of 09/07/2024) Immunizations Name Administration Dates Next Due Covid-19, [...] Telephone Encounter - Cecilia Lopez CMA - 07/14/2024 10:26 AM EDTRefused Prescriptions: Disp Refills Amitriptyline HCl 50 MG Oral Tablet (Elavi*75 Tab*3 Sig: Take 2.5 Tablets by mouth at bedtime. Refused By: CECILIA LOPEZ Reason for Refusal: Too soon * Telephone Encounter - Akiko Mcintosh OSA - 07/13/2024 6:38 AM EDT Did you pend patient's preferred pharmacy and medication before forwarding?yes Pharmacy: [id number] [address] [facility] Pending Prescriptions: Disp Refills Amitriptyline HCl 50 MG Oral Tablet (Elav*75 Tab*3 Sig: Take 2.5 Tablets by mouth at bedtime. Last Visit: 06/16/2024 (in office), 09/03/2021 (telemedicine) Next Visit: Visit date not found If no future appointments scheduled, and last appointment is greater than a year ago, please schedule patient for a follow-up appointment Last date the medication was ordered: 06/17/2024 Is this request for a controlled substance?No [...] 09/12/2024 4:15 PM EST Imaging Radiology [address], [place] [address] [place] [address] 10/03/2024 11:40 AM EST Office Visit [facility] 200 [facility] [place] [address] Aj Gaston III, MD 200 [facility] [place] [address] 10/12/2024 2:30 PM EST Telemedicine Psychology Shadia Godfrey, [place] [address] [place] [address] Krys Santos, SUEDING MACHINE OPERATOR [address] [place] [address] 10/12/2024 5:00 PM EST Office Visit [facility] 200 [facility] [place] [address] Therese Perez PA-C 200 [facility] [place] [address] Health Maintenance Due Date Last Done Comments [...] filedocumented as of this encounter Care Teams Weaving Loom Operator Relationship Specialty Start Date End Date Aj Gaston III, MD 200 [place] [address] PCP - General Family Medicine 05/12/23 documented as of this encounter
--- OUTSIDE RECORDS SUMMARY | 2024-11-28 05:30 | External Medical Summary | Summary of Care ---
Author Name Unknown Organization [facility] Address [address] [place] [address] Phone [phone] Care Team Providers Care Alloy Weigher Name Role Phone Marilin MICHAELS MD, Aj Westfall Primary Care Provider [phone] Reason for Visit * Reason Onset Date Comments PPD Skin Test 09/11/2024 Encounter Details Date Type Department Care Team (Late st Contact Info) Description 09/11/2024 3:00 PM EST Nurse Only Ancillary [facility] [address] [facility] [place] [address] [place], Nurse Fam Prac [facility] 200 [facility] [place] [address] PPD Skin Test Allergies Active Allergy Reactions Criticality Noted Date Comments Nickel Rash 06/01/2018 documented as of this encounter (statuses as of 09/11/2024) Medications Acetaminophen 500 MG Oral Tablet Take [...] as of this encounter (statuses as of 09/11/2024) Active Problems Problem Noted Date Diagnosed Date Major depressive disorder, recurrent episode, mo derate 11/15/2018 Depression with anxiety 10/19/2016 Malaise and fatigue 08/18/2010 Tobacco use disorder 11/02/2007 Elevated liver enzymes Migraine Insomnia documented as of this encounter (statuses as of 09/11/2024) Resolved Problems Problem Noted Date Diagnosed Date Resolved Date Alcohol abuse, in remission 04/24/2023 04/24/2023 Routine medical exam 08/18/2010 018 documented as of this encounter (statuses as of 09/11/2024) Immunizations Name Administration Dates Next Due Covid-19, Mrna, Lnp-s, Pf, B ivalent, 50 Mcg, IM, 12 yrs and above (Moderna) 09/23/2022 DTaP Dipth/Tet/Acell Pertussis (Infanrix), Peds 05/12/1988,03/05/1984,02/12/1983,12/11,1982 MMR - Measles/Mumps/Rubella Vaccine 11/28/1983 OPV - Polio Virus Vaccine (Oral) 988,03/05/1984,1982,10/09 PPD 09/11/2024, 0,09/03/2020,07/26,06/15/2008 Pneumococcal Polysaccharide PPV23 (Pneumovax) 03/01/2019 TDAP (age [...] * Patient Instructions* Sandra Barragan LPN - 09/11/2024 3:21 PM EST PATIENT INSTRUCTIONS FOR TUBERCULOSIS TESTING [...] to find out if youhave TB disease. [id number] Saritha [facility], [address] [place] [address], [place] [address]. All rights reserved. This information is not intended as a substitute for professional medical care. Always follow your healthcare professional's instructions. documented in this encounter Progress Notes * Sandra Barragan LPN - 09/11/2024 3:20 PM EST Pt here for PPD administration. Has patient ever had a positive PPD Screening Test? No Has patient ever had the BCG tuberculosis vaccine? Yes If the patient responds yes to any of the questions, they are NOT eligible for a PPD. DO NOT administer the PPD Screening Test and Notify the provider. Time Out Procedure Performed: Yes Patient Identified (Ask Name/Date of ): Yes Immunization(s) verified: Yes, Immunization Name: PPD, VIS Sheet(s) given: No Verified Side and Site: Yes Verified Shot(s) with Parent(s)/Patient: Yes PPD applied at 3:20 PM and patient tolerated well. Patient to return to clinic in 48 hours for PPD Reading. documented in this encounter Plan of Treatment Upcoming Encounters Date Type Department Care Team (Late st Contact Info) Description 09/12/2024 4:15 PM EST Imaging Radiology [facility] [address]st [address] [place] [address] 09/13/2024 3:00 PM EST Nurse Only [facility] [place] [address] [place] [address] Makenzie Nurse Fam Prac [place] [address] [place] [address] 10/03/2024 11:40 AM EST Office Visit Family Practice [facility] Makenzie [place] [address] [place] [address] Marilin III, Aj Westfall MD 200 [facility] [place] [address] 10/12/2024 2:30 PM EST Telemedicine Psychology [place] [address] [place], [place] [address] Krys Santosmena, BRIDGE OPENER [address] [place], [place] [address] 10/12/2024 5:00 PM EST Office Visit Family Practice Kayy Banegas [place] 200 [facility] [place] [address] Therese Perez, JULIA 200 [facility] [place] [address] Health Maintenance Due Date Last Done Comments [...] tuberculosis documented in this encounter Care Teams Alloy Weigher Relationship Specialty Start Date End Date Aj Gaston III, MD 200 [place] [address] PCP - General Family Medicine 05/12/23 documented as of this encounter
--- OUTSIDE RECORDS SUMMARY | 2024-11-28 05:30 | External Medical Summary | Summary of Care ---
Author Name Unknown Organization [facility] Address [address] [place] [address] Phone [phone] Care Team Providers Care General Forecaster Name Role Phone Marilin MICHAELS MD, Aj Westfall Primary Care Provider [phone] Reason for Visit * Reason Onset Date Comments Referral 08/28/2024 Encounter Details Date Type Department Care Team (Late st Contact Info) Description 08/28/2024 Telephone Family Practice [facility] 200 [place] [address] Aj Gaston III, MD 200 [place] [address] Referral Allergies Active Allergy Reactions Criticality Noted Date [...] Tablet 1 4 09/02/20 24 Discontinu ed(Refill) Topiramate 100 MG Oral Tablet (topAMAX) Take [...] Capsule 5 4 08/29/20 24 Discontinu ed(Refill) Gabapentin 400 MG Oral [...] Miscellaneous Notes * Telephone Encounter - Saima Sainz OSA - 09/08/2024 4:16 PM EST Patient would like a call back, she doesn't have the number for physical therapy and she would liketo get that scheduled. * Telephone Encounter - Janell Wolf OSA - 08/28/2024 2:36 PM EST LM for pt to call back and tell us where PT should be sent documented in this encounter Plan of Treatment Upcoming Encounters Date Type Department Care Team (Late st Contact Info) Description 09/11/2024 3:00 PM EST Nurse Only Ancillary [facility] [place] [address] [place] [address] Nurse Makenzie Fam Prac [facility] [address] [facility] [place] [address] 09/12/2024 4:15 PM EST Imaging Radiology [facility] 1st [facility] [place] 132 [facility] [place] [address] 10/03/2024 11:40 AM EST Office Visit [facility] 200 [facility] [place], [place] [address] Aj Gaston III, MD 200 [facility] [place] [address] 10/12/2024 2:30 PM EST Telemedicine Psychology [place] [address] [place] [address] Krys Santos, DIRECTOR ONCOLOGY [address] [place] [address] 10/12/2024 5:00 PM EST Office Visit [facility] 200 [facility] [place] [address] Therese Perez PA-C 200 [facility] [place] [address] Health Maintenance Due Date Last Done Comments [...] as of this encounter Care Teams General Forecaster Relationship Specialty Start Date End Date Aj Gaston III, MD [address] [place] [address] PCP - General Family Medicine 05/12/23 documented as of this encounter
--- OUTSIDE RECORDS SUMMARY | 2024-11-28 05:30 | External Medical Summary | Summary of Care ---
Author Name Unknown Organization [facility] Address [address] [place] [address] Phone [phone] Care Team Providers Care Clinical Biochemical Geneticist Name Role Phone Marilin MICHAELS MD, Aj Westfall Primary Care Provider [phone] Reason for Visit * Reason Comments PPD Skin Test Encounter Details Date Type Department Care Team (Late st Contact Info) Description 09/19/2024 2:30 PM EST Nurse Only Ancillary [facility] [address] [place] [address] Park, Nurse Fam [facility] 200 [facility] [place] [address] PPD Skin Test Allergies Active Allergy Reactions Criticality Noted Date Comments Nickel Rash 06/01/2018 documented as of this encounter (statuses as of 09/19/2024) Medications Acetaminophen 500 MG Oral Tablet Take [...] as of this encounter (statuses as of 09/19/2024) Active Problems Problem Noted Date Diagnosed Date Major depressive disorder, recurrent episode, mo derate 11/15/2018 Depression with anxiety 10/19/2016 Malaise and fatigue 08/18/2010 Tobacco use disorder 11/02/2007 Elevated liver enzymes Migraine Insomnia documented as of this encounter (statuses as of 09/19/2024) Resolved Problems Problem Noted Date Diagnosed Date Resolved Date Alcohol abuse, in remission 04/24/2023 04/24/2023 Routine medical exam 08/18/2010 018 documented as of this encounter (statuses as of 09/19/2024) Immunizations Name Administration Dates Next Due Covid-19, [...] as of this encounter Progress Notes * Eneida Carrillo RN - 09/19/2024 2:53 PM EST Pre-Administration Time Out Procedure Performed: Yes Patient Identified (Ask Name/Date of ): Yes Does the patient have a fever greater than 101 degrees today? No Patient allergic to latex? No Has the patient ever fainted after receiving an injection? No VFC Stock: No Immunization(s) verified: Yes, Immunization Name: PPD, VIS Sheet(s) given: N/A Verified Side and Site: Yes Verified Shot(s) with Parent(s)/Patient: Yes PPD placed for employment Needs a 2 step. Pt had a ppd placed on 09/11/24 but never got it read so that one doesn't count. The one placed today will be considered the first ppd. Pt will make appt to get it read 48 to 72 hours from now. documented in this encounter Plan of Treatment Upcoming Encounters Date Type Department Care Team (Late st Contact Info) Description 09/21/2024 3:00 PM EST Nurse Only Ancillary [facility] [place] [address] [place] [address] M[place], Nurse Fam [place] [address] [place] [address] 10/03/2024 11:40 AM EST Office Visit Family Practice [facility] [address] [place] [address] Aj Gaston III, MD 200 [facility] [place] [address] 10/12/2024 2:30 PM EST Telemedicine Psychology [address], [place] [address] [place] [address] Krys Santos, STEM CLEANING MACHINE FEEDER [address] [place] [address] 10/12/2024 5:00 PM EST Office Visit Family Practice [facility] [place] 200 [facility] [place] [address] Therese Perez PA-C 200 [place] A [place] [address] Health Maintenance Due Date Last Done Comments [...] as of this encounter Visit Diagnoses Diagnosis PPD screening test- Primary Screening examination for pulmonary tuberculosis documented in this encounter Care Teams Clinical Biochemical Geneticist Relationship Specialty Start Date End Date Aj Gaston III, MD 200 [facility] [place] [address] PCP - General Family Medicine 05/12/23 documented as of this encounter
--- OUTSIDE RECORDS SUMMARY | 2024-11-28 05:30 | External Medical Summary | Summary of Care ---
Author Name Unknown Organization [facility] Address [address] [place] [address] Phone [phone] Care Team Providers Care Head Kiln Operator Name Role Phone Marilin MICHAELS MD, Aj Westfall Primary Care Provider [phone] Reason for Visit * Reason Onset Date Comments Referral 08/28/2024 Encounter Details Date Type Department Care Team (Late st Contact Info) Description 08/28/2024 Telephone Family Practice [facility] 200 [place] [address] Aj Gaston III, MD 200 [place] [address] Referral Allergies Active Allergy Reactions Criticality Noted Date Comments Nickel Rash 06/01/2018 documented as of this encounter (statuses as of 09/08/2024) Medications Acetaminophen 500 MG Oral Tablet Take [...] as of this encounter (statuses as of 09/08/2024) Active Problems Problem Noted Date Diagnosed Date Major depressive disorder, recurrent episode, mo derate 11/15/2018 Depression with anxiety 10/19/2016 Malaise and fatigue 08/18/2010 Tobacco use disorder 11/02/2007 Elevated liver enzymes Migraine Insomnia documented as of this encounter (statuses as of 09/08/2024) Resolved Problems Problem Noted Date Diagnosed Date Resolved Date Alcohol abuse, in remission 04/24/2023 04/24/2023 Routine medical exam 08/18/2010 018 documented as of this encounter (statuses as of 09/08/2024) Immunizations Name Administration Dates Next Due Covid-19, [...] 09/11/2024 3:00 PM EST Nurse Only Ancillary [facility] [place] [address] [place] [address] Nurse Makenzie Fam Prac [facility] [address] [facility] [place] [address] 09/12/2024 4:15 PM EST Imaging Radiology [facility] 1st [facility], [place] 132 [facility] [place] [address] 10/03/2024 11:40 AM EST Office Visit [facility] 200 [facility] [place], [place] [address] Aj Gaston III, MD 200 [facility] [place] [address] 10/12/2024 2:30 PM EST Telemedicine Psychology [place] [address] [place] [address] Krys Santos, DRAPERY ROD ASSEMBLER [address] [place] [address] 10/12/2024 5:00 PM EST Office Visit [facility] 200 [facility] [place] [address] Therese Perez PA-C 200 [facility] [place] [address] Health Maintenance Due Date Last Done Comments [...] filedocumented as of this encounter Care Teams Head Kiln Operator Relationship Specialty Start Date End Date Aj Gaston III, MD [address] [place] [address] PCP - General Family Medicine 05/12/23 documented as of this encounter
--- OUTSIDE RECORDS SUMMARY | 2024-11-28 05:30 | External Medical Summary | Summary of Care ---
Author Name Unknown Organization [facility] Address [address] [place] [address] Phone [phone] Care Team Providers Care Campaign Analyst Name Role Phone Marilin MICHAELS MD, Aj Westfall Primary Care Provider [phone] Reason for Referral * Evaluate & Treat - Unlimited Visits (Within 10 days (routine)) - Pending Review Specialty Diagnoses / Procedures Referred By Contac t Referred To Contact Physical Therapy / Physical Medicine And Rehab Diagnoses Acute left-sided low back pain with left-sided sciatica Aj Gaston III, MD [address] [place] [address] Phone: tel: fax: Referral ID Status Reason Start Date Expiration Date Visits Requested Visits Authorized [id number] Pending Review Specialty Services Required [phone] Question Answer Referral Priority Within 10 days (routine) Where should this appointment be scheduled? [facility] * Evaluate & Treat - Unlimited Visits (Within 10 days (routine)) - Pending Review Specialty Diagnoses / Procedures Referred By Contact Referred To Contact GI NUTRITION/IM / Gastroenterology Diagnoses Alcohol-induced acute pancreatitis without infection or necrosis Aj Gaston III, MD [address] [place] [address] Phone: tel: fax:[phone] Referral ID Status Reason Start Date Expiration Date Visits Requested Visits Authorized [id number] Pending Review Specialty Services Required [phone] Question Answer Referral Priority Within 10 days (routine) Where should this appointment be scheduled? [facility] For what condition is the patient being seen? Other Comments THE PATIENT WILL NOT BE PRESCRIBED GLP-1 MEDICATIONS UNLESS: *Documentation of an unsuccessful trial of losing at least 5% of weight loss *Documentation the patient has had tried and failed two [2] non-GLP1 agonists (Phentermine and Wellbutrin/ Naltrexone) *Documentation of two [2] or more appointments discussing weight loss and lifestyle changes *Documentation of a blood pressure and weight within the EMR before initiation of the GLP-1 or non-GLP-1 medications REFERRING PROVIDER MUST ACKNOWLEDGE ALL OF THE CONDITIONS ABOVE ARE MET AND HAVE A BMI >35. IF THESE CONDITIONS ARE NOT MET THE PATIENT WILL NOT BE PRESCRIBED GLP- 1 PRESCRIPTIONS. Reason for Visit * Reason Onset Date Comments Hospital Follow-Up Hospital Follow-Up 08/26/2024 Encounter Details Date Type Department Care Team (Late st Contact Info) Description 08/26/2024 8:40 AM EST Office Visit Family Practice [facility] [address] [facility] [place] [address] Aj Gaston III, MD [address] [facility] [place] [address] Hospital discharge follow-up*; Alcohol-induced acute pancreatitis without infection or necrosis; Acute left-sided low back pain with left-sided sciatica; Piriformis syndrome of left side; Anxiety Allergies Active Allergy Reactions Criticality Noted [...] BEDTIME FOR 7 DAYS 14 Tablet 1 01/14/20 24 Active Amitriptyline HCl 50 MG Oral Tablet (Elavil) Take 2.5 Tablets by mouth at bedtime. 75 Tablet 3 06/17/20 24 Active Torsemide 10 MG Oral Tablet (Demadex)Indic ations:Pedal edema Take 1 Tablet by mouth in the morning. 90 Tablet 3 08/18/20 24 Active Cyclobenzaprin e HCl 10 MG Oral Tablet (Flexeril) Take 1 Tablet by mouth 2 times a day as needed for Muscle spasms. 30 Tablet 08/26/20 24 Active Sertraline HCl 50 MG Oral Tablet (Zoloft) Take 3 Tablets by mouth in the morning. 90 Tablet 3 08/26/20 24 Active Thiamine HCl 100 MG Oral Tablet Take 1 Tablet by mouth in the morning. 05/10/20 23 024 Discontinued(Me dication List Clean Up) LORazepam 1 MG Oral Tablet (Ativan) 1 daily as needed anxiety 5 Tablet 03/07/20 24 Discontinued(Me dication/Dose Changed) Cyclobenzaprin e HCl 5 MG Oral Tablet (Flexeril) Take 1 Tablet by mouth 3 times a day as needed for Muscle spasms. 30 Tablet 1 06/16/20 24 024 Discontinued(Me dication List Clean Up) Topiramate 100 MG Oral Tablet (topAMAX) Take 1 Tablet by mouth in the morning and 1 Tablet at noon and 1 Tablet before bedtime. 100 Tablet 3 06/16/20 24 024 Discontinued(Re fill) Topiramate 25 MG Oral Tablet (topAMAX) Take 1 Tablet by mouth in the morning and 1 Tablet before bedtime. 60 Tablet 6 06/16/20 24 024 Discontinued(Re fill) hydrOXYzine Pamoate 100 MG Oral Capsule Take 1 Tablet by mouth 4 times a day as needed for Anxiety. 120 Capsule 5 06/16/20 24 024 Discontinued(Re fill) Gabapentin 300 MG Oral Capsule (Neurontin) Take 1 Capsule by mouth in the morning and 1 Capsule at noon and 1 Capsule before bedtime. 3x daily. 270 Capsule 3 06/20/20 24 024 Discontinued(Me dication List Clean Up) Magnesium Oxide 400 MG Oral TabletIndicati ons:Hypomagnes emia Take 1 Tablet by mouth in the morning and 1 Tablet before bedtime. 180 Tablet 1 08/08/20 24 024 Discontinued(Me dication List Clean Up) Potassium Chloride ER 10 MEQ Oral Capsule Extended Release TAKE 2 CAPSULES BY MOUTH IN THE MORNING 60 Capsule 08/22/20 024 Discontinued(Ar dication List Clean Up) Sertraline HCl 50 MG Oral Tablet (Zoloft) Take 2 Tablets by mouth in the morning. 180 Tablet 08/23/20 024 Discontinued(Re fill) Sertraline HCl 25 MG Oral Tablet (Zoloft) Take 1 Tablet by mouth in the morning. Along with 50 mg tabs. 08/03/20 024 Discontinued Cyclobenzaprin e HCl 10 MG Oral Tablet (Flexeril) Take 1 Tablet by mouth 2 times a day as needed. 08/21/20 024 Discontinued(Re fill) Gabapentin 400 MG Oral Capsule (Neurontin) Take 1 Capsule by mouth in the morning and 1 Capsule at noon and 1 Capsule before bedtime. 08/21/20 024 Discontinued(Re fill) documented as of this encounter (statuses as [...] Sign Reading Time Taken Comments Blood Pressure 92/60 08/26/2024 8:47 AM EST Pulse 69 08/26/2024 8:47 AM EST Temperature 35.8 C (96.4 F) 08/26/2024 8:47 AM ES T Respiratory Rate 18 08/26/2024 8:47 AM EST Oxygen Saturation 100% 08/26/2024 8:47 AM EST Inhaled Oxygen Concentration - - Weight 53.3 kg (117 lb 9.6 oz) 08/26/2024 8:47 A M EST Height - - Body Mass Index 20.17 06/16/2024 9:36 AM EDT documented in this encounter Progress Notes * Marilin III, Aj Westfall MD - 08/26/2024 9:27 AM EST Subjective: Emma Nathan is a 44 year old female. Chief Complaint Patient presents with Hospital Follow-Up Hospital Follow-Up HPI: Hospital discharge follow-up admitted August 19 discharge August 21 pancreatitis lipase was for 411 acute kidney injury anxiety muscle spasms pain left low back radiating down to the knee posteriorly aggravated by movement cyclobenzaprine 10 mg twice daily is of some benefit denies chest pain shortness of breath no swelling of her ankles having loose stools had 3-4 yesterday no grossblood last vomited in the hospital although frequent nausea PHM: Patient Active Problem List Diagnosis Tobacco [...] BEDTIME FOR 7 DAYS 14 Tablet 1 Topiramate 100 MG Oral Tablet [...] day as needed for Anxiety.120 Capsule 5 Amitriptyline HCl 50 MG Oral Tablet (Elavil) Take 2.5 Tablets by mouth at bedtime. 75 Tablet 3 Torsemide 10 MG Oral Tablet (Demadex) Take 1 Tablet by mouth in the morning. 90 Tablet 3 Gabapentin 400 MG Oral Capsule (Neurontin) Take 1 Capsule by mouth in the morning and 1 Capsule at noon and 1 Capsule before bedtime. Cyclobenzaprine HCl 10 MG Oral Tablet (Flexeril) Take 1 Tablet by mouth 2 times a day as needed forMuscle spasms. 30 Tablet 0 Sertraline HCl 50 MG Oral Tablet (Zoloft) Take 3 Tablets by mouth in the morning. 90 Tablet 3 No current facility-administered medications for this visit. Past Medical History: Diagnosis Date Alcohol abuse, in remission Elevated liver enzymes Insomnia Migraine Past Surgical History: Procedure Laterality Date DENTAL SURGERY PROCEDURE NEC 09/27/1999 US GUIDED BREAST BIOPSY LEFT Left 07/12/2023 Review of patient's allergies indicates: Allergen Reactions Nickel Rash Objective: BP 92/60 | Pulse 69 | Temp 96.4 F (35.8 C) (Tympanic) | Resp 18 | Wt 117 lb 9.6 oz (53.3 kg) | SpO2 100% | BMI 20.17 kg/m | BSA 1.55 m Physical Exam: General: alert, healthy, and no distress Eye Exam: PERRLA, extraocular movements intact, conjunctiva are pink and non- injected, sclera clear Oropharynx: no exudate, no erythema, lips, buccal mucosa, and tongue normal, and mucous membranes are moist Heart: regular rate & rhythm, no murmur, and no gallops Lungs: lungs clear to auscultation Abdomen: abdomen soft, non-tender, normal bowel sounds, and no masses or organomegaly Tender left SI area as well as marked tenderness piriformis left ASSESSMENT/PLAN: Hospital discharge follow-up (Primary) - DISCH MED RECON CUR MED LIS Alcohol-induced acute pancreatitis without infection or necrosis - COMPREHENSIVE METABOLIC PANEL; Future; Expected date: 08/26/2024 - LIPASE; Future; Expected date: 08/26/2024 - GI NUTRITION REFERRAL OP Acute left-sided low back pain with left-sided sciatica - PHYSICAL THERAPY REFERRAL OP Piriformis syndrome of left side Anxiety Other orders - Cyclobenzaprine HCl 10 MG Oral Tablet (Flexeril); Take 1 Tablet by mouth 2 times a day as needed for Muscle spasms. - Sertraline HCl 50 MG Oral Tablet (Zoloft); Take 3 Tablets by mouth in the morning. Discussed will restart with [facility] go to AA meetings daily call if problems piriformis exercises given Total time 44 minutes Follow Up: Return in about 3 weeks (around 09/16/2024). Aj Gaston III, MD documented in this encounter Nursing Notes * Janell Ag LPN - 08/26/2024 8:47 AM EST Emma Nathan presents for hospital follow up. Medications & HM reviewed. documented in this encounter Plan of Treatment Upcoming Encounters Date Type Department Care Team (Late st Contact Info) Description 09/12/2024 4:15 PM EST Imaging Radiology [address], [address] [place] [address] 10/02/2024 9:20 AM EST Office Visit [facility] [address] [place] [address] Aj Gaston III, MD [address] [place] [address] 10/03/2024 11:40 AM EST Office Visit [facility] [address] [place] [address] Aj Gaston III, MD [address] [facility] [place] [address] 10/12/2024 2:30 PM EST Telemedicine Psychology [place] [address] [place] [address] Krys Santos, DIRECTOR FUNDS DEVELOPMENT [address] [place] [address] 10/12/2024 5:00 PM EST Office Visit Family Practice [facility] [place] [address] [facility] [place] [address] Therese Perez PA-C [address] [facility] [place] [address] Scheduled Referrals Name Type Priority Associated Diagnoses Orde r Schedule GI NUTRITION REFERRAL OP Referral Within 10 days (routine) Alcohol-induced acute pancreatitis without infection or necrosis Ordered: 08/26/2024 PHYSICAL THERAPY REFERRAL OP Referral Within 10 days (routine) Acute left-sided low back pain with left-sided sciatica Ordered: 08/26/2024 Health Maintenance Due Date Last Done Comments [...] as of this encounter Results * (ABNORMAL) LIPASE (08/26/2024 9:40 AM EST) Lipase 394(H) 13 - 60 U/L 08/26/2024 8:07 PM EST [facility] Blood Venous blood specimen / Unknown Venipuncture / Unknown 08/26/2024 9:40 AM EST 08/26/2024 9:40 AM EST Aj Gaston III, MD LAB BLOOD ORDERABLES Final Result [facility] [address] [place] [address] * (ABNORMAL) COMPREHENSIVE METABOLIC PANEL (08/26/2024 9:40 AM EST) BUN 15 6 - 20 mg/dL 08/26/2024 11:02 AM EST [facility] [place] [facility] CREATININE 0.9 0.5 - 1.0 mg/dL 08/26/2024 11:02 AM EST [facility] [place] [facility] EGFR 86 >=60 mL/min 08/26/2024 11:02 AM EST [facility] [place] [facility] [facility] Comment:eGFR is calculated b ased on the CKD-EPI 2020 equation. SODIUM 140 135 - 146 mmol/L 08/26/2024 11:02 AM EST [facility] [place] [facility] [facility] POTASSIUM 4.5 3.5 - 5.1 mmol/L 08/26/2024 11:02 AM EST [facility] [place] [facility] CHLORIDE 103 98 - 107 mmol/L 08/26/2024 11:02 AM EST [facility] [place] [facility] CO2 24 22 - 32 mmol/L 08/26/2024 11:02 AM EST [facility] [place] [facility] ANION GAP 13 7 - 15 mmol/L 08/26/2024 11:02 AM EST [facility] [place] [facility] GLUCOSE 88 70 - 120 mg/dL 08/26/2024 11:02 AM EST [facility] [place] [facility] [facility] Albumin 4.6 3.8 - 5.0 g/dL 08/26/2024 11:02 AM EST [facility] [place] [facility] [facility] AST 22 10 - 35 U/L 08/26/2024 11:02 AM EST [facility] [place] [facility] Alkaline Phosphatase 83 35 - 130 U/L 08/26/2024 11:02 AM EST [facility] [place] [facility] [facility] Bilirubin, Total 0.2 <=1.2 mg/dL 08/26/2024 11:02 AM EST [facility] [place] [facility] [facility] CALCIUM 10.3(H) 8.4 - 10.2 mg/dL 08/26/2024 11:02 AM EST [facility] [place] [facility] [facility] Protein 7.3 6.0 - 8.3 g/dL 08/26/2024 11:02 AM EST [facility] [place] [facility] [facility] ALT 24 10 - 35 U/L 08/26/2024 11:02 AM EST [facility] [place] [facility] [facility] Blood Venous blood specimen / Unknown Venipuncture / Unknown 08/26/2024 9:40 AM EST 08/26/2024 9:40 AM EST us Aj Gaston III, MD LAB BLOOD ORDERABLES Final Result Performing Organization Address City/State/[facility] Co de Phone Number [facility] [place] [phone] [facility] [place] [address] documented in this encounter Visit Diagnoses Diagnosis Hospital discharge follow-up- Primary Other follow-up examination Alcohol-induced acute pancreatitis without infection or necrosis Acute left-sided low back pain with left-sided sciatica Piriformis syndrome of left side Lesion of sciatic nerve Anxiety Anxiety state, unspecified documented in this encounter Care Teams Campaign Analyst Relationship Specialty Start Date End Date Aj Gaston III, MD 200 [facility] [place] [address] PCP - General Family Medicine 05/12/23 documented as of this encounter"
--- OUTSIDE RECORDS SUMMARY | 2024-11-28 05:30 | External Medical Summary | Summary of Care ---
Author Name Unknown Organization [facility] Address [address] [place] [address] Phone [phone] Care Team Providers Care Regional Branch Manager Name Role Phone Marilin MICHAELS MD, Aj Westfall Primary Care Provider [phone] Reason for Visit * Reason Comments PPD Skin Test Encounter Details Date Type Department Care Team (Late st Contact Info) Description 09/19/2024 2:30 PM EST Nurse Only Ancillary [facility] [address] [place] [address] [place], Nurse Fam [facility] 200 [facility] [place] [address] PPD Skin Test Allergies Active Allergy Reactions [...] 09/21/2024 3:00 PM EST Nurse Only Ancillary [facility] [place] [address] [place] [address] [place], Nurse Fam [place] [address] [place] [address] 10/03/2024 11:40 AM EST Office Visit Family Practice [facility] [address] [place] [address] Aj Gaston III, MD 200 [facility] [place] [address] 10/12/2024 2:30 PM EST Telemedicine Psychology [address], [place] [address] [place] [address] Krys Santos, SENIOR RD ENGINEER [address] [place] [address] 10/12/2024 5:00 PM EST Office Visit Family Practice [facility] [place] [address] [facility] [place] [address] Therese Perez PA-C [address] [place] [address] Health Maintenance Due Date Last Done Comments [...] tuberculosis documented in this encounter Care Teams Regional Branch Manager Relationship Specialty Start Date End Date Aj Gaston III, MD [address] [facility] [place] [address] PCP - General Family Medicine 05/12/23 documented as of this encounter
--- OUTSIDE RECORDS SUMMARY | 2024-11-28 05:30 | External Medical Summary | Summary of Care ---
Author Name Unknown Organization [facility] Address [address] [place] [address] Phone [phone] Care Team Providers Care Cable Television Program Director Name Role Phone Marilin MICHAELS MD, Aj Westfall Primary Care Provider [phone] Reason for Visit * Reason Onset Date Comments Medication Refill 07/13/2024 Encounter Details Date Type Department Care Team (Late st Contact Info) Description 07/13/2024 Refill Family Practice [facility] 200 [facility] [place] [address] Aj Gaston III, MD 200 [place] [address] Pedal edema Allergies Active Allergy Reactions Criticality [...] Does the household have a [facility] source of income? (Household - for [...] 07/14/2024 10:26 AM EDTRefused Prescriptions: Disp Refills Torsemide 10 MG Oral Tablet (Demadex) 30 Tab*1 Sig: Take 1 Tablet by mouth in the morning. Refused By: CECILIA LOPEZ Reason for Refusal: Too soon * Telephone Encounter - Akiko Mcintosh OSA - 07/13/2024 6:39 AM EDT Did you pend patient's preferred pharmacy and medication before forwarding?yes Pharmacy: [id number] [address] [facility] Pending Prescriptions: Disp Refills Torsemide 10 MG Oral Tablet (Demadex) 30 Tab*1 Sig: Take 1 Tablet by mouth in the morning. Last Visit: 06/16/2024 (in office), 09/03/2021 (telemedicine) Next Visit: Visit date not found If no future appointments scheduled, and last appointment is greater than a year ago, please schedule patient for a follow-up appointment Last date the medication was ordered: 06/16/2024 Is this request for a controlled substance?No [...] Description 09/12/2024 4:15 PM EST Imaging Radiology [address], [place] [facility] [place] [address] 10/03/2024 11:40 AM EST Office Visit [facility] 200 [facility] [place] [address] Aj Gaston III, MD 200 [facility] [place] [address] 10/12/2024 2:30 PM EST Telemedicine Psychology [place] [address] [place] [address] Krys Santos, PRESSER AUTOMATIC [address] [place] [address] 10/12/2024 5:00 PM EST Office Visit [facility] 200 [facility] [place] [address] Therese Perez PA-C 200 [facility] [place] [address] Health Maintenance Due Date Last Done Comments [...] Edema documented in this encounter Care Teams Cable Television Program Director Relationship Specialty Start Date End Date Aj Gaston III, MD 200 [facility] [place] [address] PCP - General Family Medicine 05/12/23 documented as of this encounter
--- OUTSIDE RECORDS SUMMARY | 2024-11-28 05:30 | External Medical Summary | Summary of Care ---
Author Name Unknown Organization [facility] Address [address] [place] [address] Phone [phone] Care Team Providers Care Cath Laboratory Technician Name Role Phone Marilin MICHAELS MD, Aj Westfall Primary Care Provider [phone] Reason for Visit * Reason Onset Date Comments Referral 08/28/2024 Encounter Details Date Type Department Care Team (Late st Contact Info) Description 08/28/2024 Telephone Family Practice [facility] 200 [facility] [place] [address] Aj Gaston III, MD 200 [place] [address] Referral Allergies Active Allergy Reactions Criticality Noted [...] encounter Miscellaneous Notes * Telephone Encounter - Stephania Myles OSA - 09/11/2024 3:24 PM EST Talked to patient while she was in office, wants referral sent to [facility]. Sent via fax * Telephone Encounter - Saima Sainz OSA [...] Description 09/12/2024 4:15 PM EST Imaging Radiology [address] [place] [address] 09/13/2024 3:00 PM EST Nurse Only Ancillary [facility] 200 [facility] [place] [address] [place], Nurse Fam [facility] 200 [facility] [place] [address] 10/03/2024 11:40 AM EST Office Visit [facility] 200 [facility] [place] [address] Aj Gaston III, MD 200 [facility] [place] [address] 10/12/2024 2:30 PM EST Telemedicine Psychology [place] [address] [place] [address] Krys Santos, CORN CROP SUPERVISOR [address] [place] [address] 10/12/2024 5:00 PM EST Office Visit [facility] [place] 200 [facility] [place] [address] Therese Perez PA-C 200 [facility] [place] [address] Health Maintenance Due Date Last Done Comments [...] filedocumented as of this encounter Care Teams Cath Laboratory Technician Relationship Specialty Start Date End Date Aj Gaston III, MD 200 [place] [address] PCP - General Family Medicine 05/12/23 documented as of this encounter
--- OUTSIDE RECORDS SUMMARY | 2024-11-28 05:31 | External Medical Summary ---
Author Name Unknown Address Unknown Organization K01:[facility] [place] [address] [facility] [place] [address] Laboratory Report Ordering Provider Test Date Status BOOM KEBEDE 08/26/2024 09:40:00 Final Observation Date Value Abnormality Reference (Units ) Status MYCODE SPECIMEN-SST 08/26/2024 09:40:00 Freezing of extracted DNA, whole blood and/or serum. Final Performing Location [facility] [address] [facility] [address]
--- OUTSIDE RECORDS SUMMARY | 2024-11-28 05:31 | External Medical Summary | Summary of Care ---
Author Name Unknown Organization [facility] Address [address] [place] [address] Phone [phone] Care Team Providers Care Manager Behavioral Name Role Phone Marilin MICHAELS MD, Gumaro Westfall Primary Care Provider [phone] Reason for Visit * Reason Onset Date Comments Medication Refill 08/21/2024 Encounter Details Date Type Department Care Team (Late st Contact Info) Description 08/21/2024 Refill Family Practice [facility] 200 [place] [address] Gumaro Rodriguez III, MD [address] [place] [address] HSV-1 infection Allergies Active Allergy Reactions Criticality Noted Date Comments Nickel Rash 06/01/2018 documented as of this encounter (statuses as of 08/23/2024) Medications Acetaminophen 500 MG Oral Tablet Take [...] as needed anxiety 5 Tablet 4 Active Additional Information Patient not taking.Reported on 08/22/2024 Cyclobenzaprin e HCl 5 MG Oral Tablet [...] for Anxiety. 120 Capsule 5 4 Active Amitriptyline HCl 50 MG Oral Tablet (Elavil) Take 2.5 Tablets by mouth at bedtime. 75 Tablet 3 4 Active Gabapentin 300 MG Oral Capsule (Neurontin) Take 1 Capsule by mouth in the morning and 1 Capsule at noon and 1 Capsule before bedtime. 3x daily. 270 Capsule 3 4 Active Magnesium Oxide 400 MG Oral TabletIndicati ons:Hypomagnes [...] by mouth in the morning. 180 Tablet 4 Active Sertraline HCl 50 MG Oral Tablet (Zoloft) Take 2 Tablets by mouth in the morning. 60 Tablet 3 4 08/21/20 24 Discontin ued(Refil l) valACYclovir HCl 1 GM Oral Tablet (Valtrex)Indic ations:HSV-1 infection Take 1 Tablet by mouth in the morning and 1 Tablet at noon and 1 Tablet before bedtime. For 7 days for shingles. 21 Tablet 4 08/22/20 24 Discontin ued(Medic ation List Clean Up) documented as of this encounter (statuses as of 08/23/2024) Active Problems Problem Noted Date Diagnosed Date Major depressive disorder, recurrent episode, mo derate 11/15/2018 Depression with anxiety 10/19/2016 Malaise and fatigue 08/18/2010 Tobacco use disorder 11/02/2007 Elevated liver enzymes Migraine Insomnia documented as of this encounter (statuses as of 08/23/2024) Resolved Problems Problem Noted Date Diagnosed Date Resolved Date Alcohol abuse, in remission 04/24/2023 04/24/2023 Routine medical exam 08/18/2010 018 documented as of this encounter (statuses as of 08/23/2024) Immunizations Name Administration Dates Next Due Covid-19, [...] Miscellaneous Notes * Telephone Encounter - Janell AgKEYANA - 08/23/2024 3:46 PM ESTSigned Prescriptions: Disp Refills Sertraline HCl 50 MG Oral Tablet (Zoloft) 180 Ta*0 Sig: Take 2 Tablets by mouth in the morning.Authorizing Provider: GUMARO RODRIGUEZ III User: ROLAND LATIFRefused Prescriptions: Disp Refills valACYclovir HCl 1 GM Oral Tablet (Valtrex)21 Tab*0 Sig: Take 1 Tablet by mouth in the morning and 1 Tablet at noon and 1 Tablet before bedtime. For 7 days for shingles.Refused By: ROLAND LATIF for Refusal: Other (comment below)Reason for Refusal Comment: 90ds not appropriate * [facility] 8:25 AM ESTSigned Prescriptions: Disp Refills Sertraline HCl 50 MG Oral Tablet (Zoloft) 180 Ta*0 Sig: Take 2 Tablets by mouth in the morning.Authorizing Provider: GUMARO RODRIGUEZ III User: ROLAND LATIFRefused Prescriptions: Disp Refills valACYclovir HCl 1 GM Oral Tablet (Valtrex)21 Tab*0 Sig: Take 1 Tablet by mouth in the morning and 1 Tablet at noon and 1 Tablet before bedtime. For 7 days for shingles.Refused By: ROLAND LATIF for Refusal: Other (comment below)Reason for Refusal Comment: 90ds not appropriate * Telephone Encounter - Roland Latif [facility] - 08/23/2024 8:23 AM EST Rerouted sertraline for 90ds, 90ds of valacyclovir not appropriate. Thank you, Roland Latif, PharmD Clinical Pharmacist [facility] ([facility]) [phone] 08/23/2024, 8:24 AM * Telephone Encounter - Roland Latif [facility] - 08/22/2024 3:47 PM EST Pending Prescriptions: Disp Refills Sertraline HCl 50 MG Oral Tablet (Zoloft) 60 Tab*3 Sig: Take 2 Tablets by mouth in the morning. valACYclovir HCl 1 GM Oral Tablet (Valtrex)21 Tab*0 Sig: Take 1 Tablet by mouth in the morning and 1 Tablet at noon and 1 Tablet before bedtime. For 7 days for shingles. * Telephone Encounter - Roland Latif [facility] - 08/22/2024 3:46 PM EST Will review refill request 08/23 after appointment 08/22 Thank you, Roland Latif, PharmD Clinical Pharmacist [facility] [phone] 08/22/2024, 3:46 PM * Telephone Encounter - Rita Pleitez PHARM Tech - 08/21/2024 4:34 PM EST Pt calling as she is in the hospital and being discharged from hospital. Did you pend patient's preferred pharmacy and medication before forwarding?yes Pharmacy: [id number] Pending Prescriptions: Disp Refills Sertraline HCl 50 MG Oral Tablet (Zoloft) 60 Tab*3 Sig: Take 2 Tablets by mouth in the morning. valACYclovir HCl 1 GM Oral Tablet (Valtre*21 Tab*0 Sig: Take 1 Tablet by mouth in the morning and 1 Tablet at noon and 1 Tablet before bedtime. For 7 days for shingles. Last Visit: 06/16/2024 (in office), 09/03/2021 (telemedicine) Next Visit: Visit date not found If no future appointments scheduled, and last appointment is greater than a year ago, please schedule patient for a follow-up appointment Last date the medication was ordered: 06/17 08/01 Is this request for a controlled substance?No [...] 06/12/2020 12:23 PM * Telephone Encounter - Stephania Myles OSA - 08/21/2024 3:14 PM EST 90 day request * Telephone Encounter - Stephania Myles OSA - 08/21/2024 3:13 PM EST Did you pend patient's preferred pharmacy and medication before forwarding?yes Pharmacy: [id number] [address] [facility] Pending Prescriptions: Disp Refills Sertraline HCl 50 MG Oral Tablet (Zoloft) 60 Tab*3 Sig: Take 2 Tablets by mouth in the morning. Last Visit: [...] 8:40 AM EST Office Visit Family Practice [facility] [address] [place] [address] Gumaro Rodriguez III, MD 200 [facility] [place] [address] 09/12/2024 4:15 PM EST Imaging Radiology [facility] 1st [facility] [address] [place] [address] Health Maintenance Due Date Last Done Comments Hepatitis B Vaccine (1 of 3 - 19+ 3-dose series) 2001 HPV/Co-Test 2012 COVID-19 Vaccine (2 season) 2024 09/23/2022 Influenza Vaccine (FLU shot) [...] of this encounter Visit Diagnoses Diagnosis HSV-1 infection Herpes simplex without mention of complication documented in this encounter Care Teams Manager Behavioral Relationship Specialty Start Date End Date Gumaro Rodriguez III, MD 200 [place] [address] PCP - General Family Medicine 05/12/23 documented as of this encounter
--- OUTSIDE RECORDS SUMMARY | 2024-11-28 05:31 | External Medical Summary | Summary of Care ---
Author Name Unknown Organization [facility] Address [address] [place] [address] Phone [phone] Care Team Providers Care Supervisor [employer] Name Role Phone Marilin MICHAELS MD, Aj Westfall Primary Care Provider [phone] Reason for Visit * Reason Onset Date Comments Referral 08/28/2024 Encounter Details Date Type Department Care Team (Late st Contact Info) Description 08/28/2024 Telephone Family Practice [facility] 200 [place] [address] Aj Gaston III, MD [address] [place] [address] Referral Allergies Active Allergy Reactions Criticality Noted Date Comments Nickel Rash 06/01/2018 documented as of this encounter (statuses as of 08/28/2024) Medications Acetaminophen 500 MG Oral Tablet Take 1 Tablet by mouth every 6 hours as needed. Active valACYclovir HCl 1 GM Oral Tablet (Valtrex) TAKE 1 TABLET BY MOUTH IN THE MORNING AND 1 TAB BEFORE BEDTIME FOR 7 DAYS 14 Tablet 1 01/14/2024 Active Topiramate 100 MG Oral Tablet (topAMAX) [...] for Anxiety. 120 Capsule 5 06/16/2024 Active Amitriptyline HCl 50 MG Oral Tablet (Elavil) Take 2.5 Tablets by mouth at bedtime. 75 Tablet 3 06/17/2024 Active Torsemide 10 MG Oral Tablet (Demadex)Indica tions:Pedal edema Take 1 Tablet by mouth in the morning. 90 Tablet 3 08/18/2024 Active Gabapentin 400 MG Oral Capsule (Neurontin) Take 1 Capsule by mouth in the morning and 1 Capsule at noon and 1 Capsule before bedtime. 08/21/2024 Active Cyclobenzaprine HCl 10 MG Oral Tablet (Flexeril) Take 1 Tablet by mouth 2 times a day as needed for Muscle spasms. 30 Tablet 08/26/2024 Active Sertraline HCl 50 MG Oral Tablet (Zoloft) Take 3 Tablets by mouth in the morning. 90 Tablet 3 08/26/2024 Active documented as of this encounter (statuses as of 08/28/2024) Active Problems Problem Noted Date Diagnosed Date Major depressive disorder, recurrent episode, mo derate 11/15/2018 Depression with anxiety 10/19/2016 Malaise and fatigue 08/18/2010 Tobacco use disorder 11/02/2007 Elevated liver enzymes Migraine Insomnia documented as of this encounter (statuses as of 08/28/2024) Resolved Problems Problem Noted Date Diagnosed Date Resolved Date Alcohol abuse, in remission 04/24/2023 04/24/2023 Routine medical exam 08/18/2010 018 documented as of this encounter (statuses as of 08/28/2024) Immunizations Name Administration Dates Next Due Covid-19, [...] Miscellaneous Notes * Telephone Encounter - Janell Wolf OSA - 08/28/2024 2:32 PM EST tried to schedule GI but was denied scheduling please call to schedule documented in this encounter Plan of Treatment Upcoming Encounters Date Type Department Care Team (Late st Contact Info) Description 09/12/2024 4:15 PM EST Imaging Radiology [facility] [address] [facility] 132 [facility] [place] [address] 10/03/2024 11:40 AM EST Office Visit Family Practice [facility] 200 [place] [address] Aj Gaston III, MD 200 [place] [address] Health Maintenance Due Date Last Done Comments [...] as of this encounter Care Teams Supervisor [employer] Relationship Specialty Start Date End Date Aj Gaston III, MD [address] [place] [address] PCP - General Family Medicine 05/12/23 documented as of this encounter
--- OUTSIDE RECORDS SUMMARY | 2024-11-28 05:31 | External Medical Summary | Summary of Care ---
Author Name Unknown Organization [facility] Address [address] [place] [address] Phone [phone] Care Team Providers Care Seed And Fertilizer Specialist Name Role Phone Marilin MICHAELS MD, Aj Westfall Primary Care Provider [phone] Reason for Visit * Reason Onset Date Comments Referral 08/28/2024 Encounter Details Date Type Department Care Team (Late st Contact Info) Description 08/28/2024 Telephone Family Practice [facility] [address] [place] [address] Aj Gaston III, MD [address] [place] [address] Referral Allergies Active Allergy Reactions Criticality Noted [...] Description 09/12/2024 4:15 PM EST Imaging Radiology [facility] 1st [facility] 132 [facility] [place] [address] 10/03/2024 11:40 AM EST Office Visit Family Practice [facility] [address] [place] [address] Aj Gaston III, MD 200 [facility] Health Maintenance Due Date Last Done Comments [...] filedocumented as of this encounter Care Teams Seed And Fertilizer Specialist Relationship Specialty Start Date End Date Aj Gaston III, MD 200 [facility] [place] [address] PCP - General Family Medicine 05/12/23 documented as of this encounter
--- OUTSIDE RECORDS SUMMARY | 2024-11-28 05:31 | External Medical Summary | Summary of Care ---
Author Name Unknown Organization [facility] Address [address] [place] [address] Phone [phone] Care Team Providers Care Graphics Specialist Name Role Phone Marilin MICHAELS MD, Aj Westfall Primary Care Provider [phone] Reason for Visit * Reason Comments Outpatient Testing Encounter Details Date Type Department Care Team (Late st Contact Info) Description 08/26/2024 9:50 AM EST Laboratory Laboratory, [facility] [address] [place] [address] [facility] [address] [place] [address] [place]ango Other*[id number]; Alcohol-induced acute pancreatitis without infection or necrosis Allergies Active Allergy Reactions Criticality Noted Date Comments Nickel Rash 06/01/2018 documented as of this encounter (statuses as of 08/26/2024) Medications Acetaminophen 500 MG Oral Tablet Take [...] as of this encounter (statuses as of 08/26/2024) Active Problems Problem Noted Date Diagnosed Date Major depressive disorder, recurrent episode, mo derate 11/15/2018 Depression with anxiety 10/19/2016 Malaise and fatigue 08/18/2010 Tobacco use disorder 11/02/2007 Elevated liver enzymes Migraine Insomnia documented as of this encounter (statuses as of 08/26/2024) Resolved Problems Problem Noted Date Diagnosed Date Resolved Date Alcohol abuse, in remission 04/24/2023 04/24/2023 Routine medical exam 08/18/2010 018 documented as of this encounter (statuses as of 08/26/2024) Immunizations Name Administration Dates Next Due Covid-19, [...] Description 09/12/2024 4:15 PM EST Imaging Radiology [address] 132 [facility] [place] [address] 10/03/2024 11:40 AM EST Office Visit Family Practice [facility] 200 [facility] [place] [address] Aj Gaston III, MD 200 [facility] [place] [address] Pending Results Name Type Priority Associated Diagnoses Date /Time MYCODE SUBSEQUENT ADULT Lab Routine MyCode [employer] Other*[id number] 08/26/2024 9:40 AM EST COMPREHENSIVE METABOLIC PANEL Lab Routine Alcohol-induced acute pancreatitis without infection or necrosis 08/26/2024 9:40 AM EST LIPASE Lab Routine Alcohol-induced acute pancreatitis without infection or necrosis 08/26/2024 9:40 AM EST MYCODE SST1 Lab Routine [employer] Other*[id number] 08/26/2024 9:40 AM EST MYCODE SST2 Lab Routine [employer] Other*[id number] 08/26/2024 9:40 AM EST Health Maintenance Due Date Last Done [...] this encounter Visit Diagnoses Diagnosis [employer] Other*[id number] Alcohol-induced acute pancreatitis without infection or necrosis documented in this encounter Care Teams Graphics Specialist Relationship Specialty Start Date End Date Aj Gaston III, MD 200 [place] [address] PCP - General Family Medicine 05/12/23 documented as of this encounter
--- OUTSIDE RECORDS SUMMARY | 2024-11-28 05:31 | External Medical Summary ---
Author Name Unknown Address Unknown Organization K01:[facility] - [address] [place] [address] Laboratory Report Ordering Provider Test Date Status MICHAEL NAIK III 08/26/2024 09:40:00 Final Observation Date Value Abnormality Reference (Units ) Status Lipase 08/26/2024 09:40:00 394 Above high normal 13 -60 (U/L) Final Performing Location [facility] - [address] [place] [address]
--- OUTSIDE RECORDS SUMMARY | 2024-11-28 05:31 | External Medical Summary | Summary of Care ---
Author Name Unknown Organization [facility] Address [address] [place] [address] Phone [phone] Care Team Providers Care Farm Labor Contractor Name Role Phone Marilin MICHAELS MD, Aj Westfall Primary Care Provider [phone] Reason for Visit * Reason Onset Date Comments Medication Refill 08/31/2024 Encounter Details Date Type Department Care Team (Late st Contact Info) Description 08/31/2024 Refill Family Practice [facility] 200 [facility] [place] [address] Aj Gaston III, MD 200 [place] [address] Allergies Active Allergy Reactions Criticality Noted Date Comments Nickel Rash 06/01/2018 documented as of this encounter (statuses as of 08/31/2024) Medications Acetaminophen 500 MG Oral Tablet Take [...] before bedtime. 60 Tablet 6 08/30/2024 Active documented as of this encounter (statuses as of 08/31/2024) Active Problems Problem Noted Date Diagnosed Date Major depressive disorder, recurrent episode, mo derate 11/15/2018 Depression with anxiety 10/19/2016 Malaise and fatigue 08/18/2010 Tobacco use disorder 11/02/2007 Elevated liver enzymes Migraine Insomnia documented as of this encounter (statuses as of 08/31/2024) Resolved Problems Problem Noted Date Diagnosed Date Resolved Date Alcohol abuse, in remission 04/24/2023 04/24/2023 Routine medical exam 08/18/2010 018 documented as of this encounter (statuses as of 08/31/2024) Immunizations Name Administration Dates Next Due Covid-19, [...] encounter Miscellaneous Notes * Telephone Encounter - Sherri Garcia PHARM Tech - 08/31/2024 2:00 PM EST Pt calling to request a refill for Gabapentin. Advised too soon to put request in. Advised Pt to call back on 09/18/24 Thank you, Sherri Garcia [facility] Uranium Processing Supervisor II [facility] 08/31/2024,2:01 PM . documented in this encounter Plan of Treatment Upcoming Encounters Date Type Department Care Team (Late st Contact Info) Description 09/12/2024 4:15 PM EST Imaging Radiology [address], [address] [address] 10/02/2024 9:20 AM EST Office Visit [facility] [address] [place] [address] Aj Gaston III, MD [address] [place] [address] 10/03/2024 11:40 AM EST Office Visit [facility] [address] [place] [address] Aj Gaston III, MD [address] [place] [address] 10/12/2024 2:30 PM EST Telemedicine Psychology [place] [address] [place] [address] Krys Santos, COMPENSATION ANALYST [address] [place] [address] 10/12/2024 5:00 PM EST Office Visit [facility] Practice [facility] 200 [facility] [place] [address] Therese Perez PA-C [address] [place] [address] Health Maintenance Due Date Last Done Comments [...] filedocumented as of this encounter Care Teams Farm Labor Contractor Relationship Specialty Start Date End Date Aj Gaston III, MD [address] [place] [address] PCP - General Family Medicine 05/12/23 documented as of this encounter
--- OUTSIDE RECORDS SUMMARY | 2024-11-28 05:31 | External Medical Summary | Summary of Care ---
Author Name Unknown Organization [facility] Address [address] [place] [address] Phone [phone] Care Team Providers Care Oracle Agile Plm Consultant Name Role Phone Marilin MICHAELS MD, Gumaro Westfall Primary Care Provider [phone] Reason for Visit * Reason Onset Date Comments Medication Refill 08/29/2024 Encounter Details Date Type Department Care Team (Late st Contact Info) Description 08/29/2024 Refill Family Practice [facility] 200 [facility] [place] [address] Gumaro Rodriguez III, MD 200 [place] [address] Allergies Active Allergy Reactions Criticality Noted Date Comments Nickel Rash 06/01/2018 documented as of this encounter (statuses as of 08/30/2024) Medications Acetaminophen 500 MG Oral Tablet Take 1 Tablet by mouth every 6 hours as needed. Active valACYclovir HCl 1 GM Oral Tablet (Valtrex) TAKE 1 TABLET BY MOUTH IN THE MORNING AND 1 TAB BEFORE BEDTIME FOR 7 DAYS 14 Tablet 1 4 Active Amitriptyline HCl 50 MG Oral Tablet (Elavil) Take 2.5 Tablets by mouth at bedtime. 75 Tablet 3 4 Active Torsemide 10 MG Oral Tablet (Demadex)Indica tions:Pedal edema Take 1 Tablet by mouth in the morning. 90 Tablet 3 4 Active Gabapentin 400 MG Oral Capsule (Neurontin) Take 1 Capsule by mouth in the morning and 1 Capsule at noon and 1 Capsule before bedtime. 4 Active Cyclobenzaprine HCl 10 MG Oral [...] before bedtime. 60 Tablet 6 4 Active Topiramate 100 MG Oral Tablet [...] Capsule 5 4 08/29/20 24 Discontinu ed(Refill) documented as of this encounter (statuses as of 08/30/2024) Active Problems Problem Noted Date Diagnosed Date Major depressive disorder, recurrent episode, mo derate 11/15/2018 Depression with anxiety 10/19/2016 Malaise and fatigue 08/18/2010 Tobacco use disorder 11/02/2007 Elevated liver enzymes Migraine Insomnia documented as of this encounter (statuses as of 08/30/2024) Resolved Problems Problem Noted Date Diagnosed Date Resolved Date Alcohol abuse, in remission 04/24/2023 04/24/2023 Routine medical exam 08/18/2010 018 documented as of this encounter (statuses as of 08/30/2024) Immunizations Name Administration Dates Next Due Covid-19, [...] Encounter - Gumaro Rodriguez III, MD - 08/30/2024 11:36 AM ESTSigned Prescriptions: Disp Refills hydrOXYzine Pamoate 100 MG Oral Capsule 120 Ca*5 Sig: Take 1 Tablet by mouth 4 times a day as needed for Anxiety.Authorizing Provider: GUMARO RODRIGUEZ III Wjhosqobak774 MG Oral Tablet (topAMAX) 100 Ta*3 Sig: Take 1 Tablet by mouth in the morning and 1 Tablet at noon and 1 Tablet before bedtime.Authorizing Provider: GUMARO RODRIGUEZ III Fctxedaacy43 MG Oral Tablet (topAMAX) 60 Tab*6 Sig: Take 1 Tablet by mouth in the morning and 1 Tablet beforebedtime.Authorizing Provider: GUMARO RODRIGUEZ III * Telephone Encounter - Lila Sellers CMA - 08/30/2024 8:23 AM ESTPending Prescriptions: Disp Refills hydrOXYzine Pamoate 100 MG Oral Capsule 120 Ca*5 Sig: Take 1 Tablet by mouth 4 times a day as needed for Anxiety. Topiramate 100 MG Oral Tablet (topAMAX) 100 Ta*3 Sig: Take 1 Tablet by mouth in the morning and 1 Tablet at noon and 1 Tablet before bedtime. Topiramate 25 MG Oral Tablet (topAMAX) 60 Tab*6 Sig: Take 1 Tablet by mouth in the morning and 1 Tablet before bedtime. * Telephone Encounter - Lila Sellers CMA - 08/30/2024 8:23 AM EST Pending Prescriptions: Disp Refills hydrOXYzine Pamoate 100 MG Oral Capsule 120 Ca*5 Sig: Take 1 Tablet by mouth 4 times a day as needed for Anxiety. Topiramate 100 MG Oral Tablet (topAMAX) 100 Ta*3 Sig: Take 1 Tablet by mouth in the morning and 1 Tablet at noon and 1 Tablet before bedtime. Topiramate 25 MG Oral Tablet (topAMAX) 60 Tab*6 Sig: Take 1 Tablet by mouth in the morning and 1 Tablet before bedtime. Last Visit: 06/16/2024 (in office), 09/03/2021 (telemedicine) Next Visit: 10/02/2024 Last date the medication was ordered: 06/16/24 Patient Active Problem List Diagnosis Tobacco use disorder Malaise and fatigue Depression with anxiety Elevated liver enzymes Migraine Insomnia Major depressive disorder, recurrent episode, moderate (HCC) Labs: Lab Results Component Value Date/Time CREATININE - [facility] 0.9 08/26/2024 09:40 AM CREATININE - [facility] 0.9 06/12/2020 12:23 PM Lab Results Component Value Date/Time POTASSIUM - [facility] 4.5 08/26/2024 09:40 AM POTASSIUM - [facility] 5.3 (H) 06/12/2020 12:23 PM Lab Results Component Value Date/Time TSH - [facility] 1.72 04/27/2023 11:24 AM TSH - [facility] 1.02 06/12/2020 12:23 PM Lab Results Component Value Date/Time LDL CHOLESTEROL (CALCULATED) - [facility] 103 02/25/2024 03:31 PM LDL CHOLESTEROL (DIRECT MEASURE) - [facility] 99 06/12/2020 12:23 PM Lab Results Component Value Date/Time ALT - [facility] 24 08/26/2024 09:40 AM ALT - [facility] 14 06/12/2020 12:23 PM ALT-OUTSIDE LAB 108 (A) 05/08/2017 12:00 AM Hemoglobin AIC Results: Lab Results Component Value Date/Time HEMOGLOBIN A1C - [facility] 4.9 06/12/2020 12:23 PM * Telephone Encounter - Tylor Landin, interior assemblies installer - 08/29/2024 2:08 PM EST Placed outgoing call to [facility] x2 - no answer. Did you pend patient's preferred pharmacy and medication before forwarding?yes Pharmacy: [id number] [address] [place] [address] Pending Prescriptions: Disp Refills hydrOXYzine Pamoate 100 MG Oral Capsule 120 Ca*5 Sig: Take 1 Tablet by mouth 4 times a day as needed for Anxiety. Topiramate 100 MG Oral Tablet (topAMAX) 100 Ta*3 Sig: Take 1 Tablet by mouth in the morning and 1 Tablet at noon and 1 Tablet before bedtime. Topiramate 25 MG Oral Tablet (topAMAX) 60 Tab*6 Sig: Take 1 Tablet by mouth in the morning and 1 Tablet before bedtime. Last Visit: 06/16/2024 (in office), 09/03/2021 (telemedicine) Next Visit: 10/03/2024 If no future appointments scheduled, and last appointment is greater than a year ago, please schedule patient for a follow-up appointment Last date the medication was ordered: 06/16/2024 06/16/2024 06/16/2024 Is this request for a controlled [...] 06/12/2020 12:23 PM * Telephone Encounter - Tylor Landin interior assemblies installer - 08/29/2024 1:18 PM EST Pt stating pharmacy does not have refills for hydrOXYzine Pamoate 100 MG Oral Capsule; Topiramate 100 MG Oral Tablet (topAMAX); Topiramate 25 MG Oral Tablet (topAMAX). Placed outgoing call to [facility] pharmacy to clarify if they placed prescriptions in pts profile, as refills should still be available. Will try again after lunch. Thank you, Tylor Landin Spike Machine Heater I [facility] ([facility]) 08/29/2024,1:44 PM documented in this encounter Plan of Treatment Upcoming Encounters Date Type Department Care Team (Late st Contact Info) Description 09/12/2024 4:15 PM EST Imaging Radiology [address], [place] [facility] [place] [address] 10/02/2024 9:20 AM EST Office Visit [facility] [address] [place] [address] Gumaro Rodriguez III, MD [address] [place] [address] 10/03/2024 11:40 AM EST Office Visit [facility] [place] [address] [place] [address] Gumaro Rodriguez III, MD 200 [facility] [place] [address] 10/12/2024 2:30 PM EST Telemedicine Psychology [facility] [address] [place] [address] Krys Santos, CAUSTIC CRESYLATE SHIFT SUPERINTENDENT [address] [place] [phone] 10/12/2024 5:00 PM EST Office Visit [facility] [address] [place] [address] Therese Perez PA-C [address] [place] [address] Health Maintenance Due Date Last Done Comments [...] filedocumented as of this encounter Care Teams [employer] Consultant Relationship Specialty Start Date End Date Gumaro Rodriguez III, MD [address] [place] [address] PCP - General Family Medicine 05/12/23 documented as of this encounter
--- OUTSIDE RECORDS SUMMARY | 2024-11-28 05:31 | External Medical Summary | Summary of Care ---
Author Name Unknown Organization [facility] Address [address] [place] [address] Phone [phone] Care Team Providers Care Rigging And Controls Aircraft Mechanic Name Role Phone Marilin MICHAELS MD, Gumaro Westfall Primary Care Provider [phone] Reason for Visit * Reason Onset Date Comments Med Request 08/29/2024 Encounter Details Date Type Department Care Team (Late st Contact Info) Description 08/29/2024 Telephone Family Practice [facility] 200 [place] [address] Gumaro Rodriguez III, MD 200 [place] [address] Med Request Allergies Active Allergy Reactions Criticality [...] before bedtime. 90 Capsule 5 4 Active Gabapentin 400 MG Oral Capsule [...] encounter Miscellaneous Notes * Addendum Note - Gumaro Rodriguez III, MD - 09/01/2024 8:47 AM ESTAddended by: GUMARO RODRIGUEZ on: 09/01/2024 08:47 AM Modules accepted: Orders * Addendum Note - Chrissie Cunningham CPhT - 08/31/2024 2:15 PM ESTAddended by: CHRISSIE CUNNINGHAM on: 08/31/2024 02:15 PM Modules accepted: Orders * Telephone Encounter - Chrissie Cunningham CPhT - 08/31/2024 2:09 PM EST Patient calling to change pharmacy from [facility] to [facility]. Thank you, Chrissie Cunningham CPhT Pillar Worker [facility] ([facility]) 08/31/2024,2:13 PM * Addendum Note - Roland Zeng RP - 08/31/2024 1:48 PM ESTAddended by: ROLAND ZENG on: 08/31/2024 01:48 PM Modules accepted: Orders * Telephone Encounter - Roland Zeng RP - 08/31/2024 1:48 PM EST [facility] is currently not authorized to approve refills for the pended medication(s) per refill protocol. Please approve if appropriate. Thanks, Roland Zeng, PharmD Clinical Pharmacist [facility] ([facility]) [phone] 08/31/2024, 1:48 PM * Addendum Note - Ashli Ramesh CPhT - 08/31/2024 1:41 PM ESTAddended by: ASHLI RAMESH on: 08/31/2024 01:41 PM Modules accepted: Orders * Telephone Encounter - Ashli Ramesh CPhT - 08/31/2024 1:40 PM EST Medication(s) is/are listed as "Historical". Pt confirmed the current dosage, directions, and qty that they are normally prescribed, as reflected in the pending order below. This is also indicated from encounter on 08/26/2024. Confirmed patient has been seen within the last year.. Please review andapprove if appropriate. Pending Prescriptions: Disp Refills Gabapentin 400 MG Oral Capsule (Neurontin) Sig: Take 1 Capsule by mouth in the morning and 1 Capsule at noon and 1 Capsule before bedtime. Last Visit: 06/16/2024 (in office), 09/03/2021 (telemedicine) Next Visit: 10/02/2024 If no future appointments scheduled, and last appointment is greater than a year ago, please schedule patient for a follow-up appointment Last date the medication was ordered: Historical Patient Phone Numbers Labs: Lab Results Component [...] PM * Telephone Encounter - Tylor Landin, manager of patient - 08/29/2024 1:23 PM EST Pt calling to ask when she would be eligible for new Gabapentin 400 MG Oral Capsule (Neurontin). Thank you, Tylor Landin Set Up Person I [facility] ([facility]) 08/29/2024,1:43 PM documented in this encounter Plan of Treatment Upcoming Encounters Date Type Department Care Team (Late st Contact Info) Description 09/12/2024 4:15 PM EST Imaging Radiology [address] [place] [address] 10/02/2024 9:20 AM EST Office Visit [facility] [address] [place] [address] Gumaro Rodriguez III, MD [address] [place] [address] 10/03/2024 11:40 AM EST Office Visit [facility] [address] [place] [address] Gumaro Rodriguez III, MD [address] [place] [address] 10/12/2024 2:30 PM EST Telemedicine Psychology [facility] [address] [place] [address] Krys Santos, JJ [address] [place] [address] 10/12/2024 5:00 PM EST Office Visit [facility] [address] [place] [address] Therese Perez PA-C [address] [facility] [place] [address] Health Maintenance Due Date Last Done Comments [...] filedocumented as of this encounter Care Teams Rigging And Controls Aircraft Mechanic Relationship Specialty Start Date End Date Gumaro Rodriguez III, MD [address] [place] [address] PCP - General Family Medicine 05/12/23 documented as of this encounter
--- OUTSIDE RECORDS SUMMARY | 2024-11-28 05:31 | External Medical Summary ---
Author Name Unknown Address Unknown Organization [facility] [place] [address] [place] [address] Laboratory Report Ordering Provider Test Date Status MICHAEL NAIK III 08/26/2024 09:40:00 Final Observation Date Value Abnormality Reference (Units ) Status BUN 08/26/2024 09:40:00 15 6-20 (mg/dL) Final Creatinine 08/26/2024 09:40:00 0.9 0.5-1.0 (mg/dL) Final Glomerular filtration rate/1.73 sq M.predicted [Volume Rate/Area] in Serum, Plasma or Blood by Creatinine-based formula (CKD-EPI) 08/26/2024 09:40:00 86 >=60 (mL/min) Final eGFR is calculated based on the CKD-EPI 2020 equation. Sodium 08/26/2024 09:40:00 140 135-146 (m mol/L) Final Potassium 08/26/2024 09:40:00 4.5 3.5-5.1 (m mol/L) Final Cl 08/26/2024 09:40:00 103 98-107 (mm ol/L) Final CO2 08/26/2024 09:40:00 24 22-32 (mmo l/L) Final Anion gap 08/26/2024 09:40:00 13 7-15 (mmol /L) Final Glucose 08/26/2024 09:40:00 88 70-120 (mg /dL) Final Albumin 08/26/2024 09:40:00 4.6 3.8-5.0 (g /dL) Final AST (Aspartate aminotransferase) 08/26/2024 09:40:00 22 10-35 (U/L) Fin al Alk Phos 08/26/2024 09:40:00 83 35-130 (U/ L) Final Bilirubin, Total 08/26/2024 09:40:00 0.2 <=1 .2 (mg/dL) Final Calcium 08/26/2024 09:40:00 10.3 Above high normal 8. 4-10.2 (mg/dL) Final Protein 08/26/2024 09:40:00 7.3 6.0-8.3 (g /dL) Final ALT (Alanine aminotransferase) 08/26/2024 09:40:00 24 10-35 (U/L) Macho ma Performing Location [facility] [address] [facility] [place] [address]
--- OUTSIDE RECORDS SUMMARY | 2024-11-28 05:31 | External Medical Summary | Summary of Care ---
Author Name Unknown Organization [facility] Address [address] [place] [address] Phone [phone] Care Team Providers Care Sales Account Coordinator Name Role Phone Marilin MICHAELS MD, Aj Westfall Primary Care Provider [phone] Reason for Visit * Reason Onset Date Comments Med Request 08/29/2024 Encounter Details Date Type Department Care Team (Late st Contact Info) Description 08/29/2024 Telephone Family Practice [facility] 200 [place] [address] Aj Gaston III, MD 200 [place] [address] Med Request Allergies Active Allergy Reactions Criticality [...] encounter Miscellaneous Notes * Addendum Note - Roland Mancilla [facility] - 08/31/2024 1:48 PM ESTAddended by: ROLAND MANCILLA on: 08/31/2024 01:48 PM Modules accepted: Orders * Telephone Encounter - Roland Mancilla [facility] - 08/31/2024 1:48 PM EST [facility] is currently not authorized to approve refills for the pended medication(s) per refill protocol. Please approve if appropriate. ThanksRoland, PharmD Clinical Pharmacist [facility] Clinical Pharmacy Services ([facility]) [phone] 08/31/2024, 1:48 PM * Addendum Note - Ashli Alvarez CPhT - 08/31/2024 1:41 PM ESTAddended by: ASHLI ALVAREZ on: 08/31/2024 01:41 PM Modules accepted: Orders * Telephone Encounter - Ashli Alvarez CPhT - 08/31/2024 1:40 PM EST Medication(s) [...] PM * Telephone Encounter - Tylor Landin manager diversity - 08/29/2024 1:23 PM EST Pt calling to ask when she would be eligible for new Gabapentin 400 MG Oral Capsule (Neurontin). Thank you, Tylor Landin Lithograph Operator I [facility] ([facility]) 08/29/2024,1:43 PM documented in this encounter Plan of Treatment Upcoming Encounters Date Type Department Care Team (Late st Contact Info) Description 09/12/2024 4:15 PM EST Imaging Radiology [address] 132 [facility] [place] [address] 10/02/2024 9:20 AM EST Office Visit [facility] [address] [place] [address] [place] Aj MICHAELS MD [address] [facility] [place] [address] 10/03/2024 11:40 AM EST Office Visit [facility] 200 [facility] [place], [place] [address] Aj Gaston III, MD 200 [facility] [place], [place] [address] 10/12/2024 2:30 PM EST Telemedicine Psychology Shadia Godfrey, Jordan [address] [place] [address] Krys Santos, CASINO ENFORCEMENT AGENT [address] [place] [address] 10/12/2024 5:00 PM EST Office Visit [facility] 200 [facility] [place], [place] [address] Therese Perez PA-C 200 [facility] [place], [place] [address] Health Maintenance Due Date Last Done Comments [...] filedocumented as of this encounter Care Teams Sales Account Coordinator Relationship Specialty Start Date End Date Aj Gaston III, MD [address] [place] [address] PCP - General Family Medicine 05/12/23 documented as of this encounter
--- OUTSIDE RECORDS SUMMARY | 2024-11-28 05:31 | External Medical Summary | Summary of Care ---
Author Name Unknown Organization [facility] Address [address] [place] [address] Phone [phone] Care Team Providers Care Construction Equipment Overhauler Name Role Phone Marilin MICHAELS MD, Aj Westfall Primary Care Provider [phone] Reason for Visit * Reason Onset Date Comments Med Request 08/29/2024 Encounter Details Date Type Department Care Team (Late st Contact Info) Description 08/29/2024 Telephone Family Practice [facility] 200 [place] [address] Aj Gaston III, MD 200 [place] [address] Med Request Allergies Active Allergy Reactions Criticality [...] encounter Miscellaneous Notes * Addendum Note - Chrissie Cunningham CPhT - 08/31/2024 2:15 PM ESTAddended by: CHRISSIE CUNNINGHAM on: 08/31/2024 02:15 PM Modules accepted: Orders * Telephone Encounter - Chrissie Cunningham CPhT - 08/31/2024 2:09 PM EST Patient calling to change pharmacy from [facility] to [facility]. Thank you, Chrissie Cunningham CPhT Quarry Worker [facility] Clinical Pharmacy Services ([facility]) 08/31/2024,2:13 PM * Addendum Note - Roland Zeng [facility] - 08/31/2024 1:48 PM ESTAddended by: ROLAND ZENG on: 08/31/2024 01:48 PM Modules accepted: Orders * Telephone Encounter - Roland Zeng [facility] - 08/31/2024 1:48 PM EST [facility] is currently not authorized to approve refills for the pended medication(s) per refill protocol. Please approve if appropriate. Thanks, Roland Zeng, PharmD Clinical Pharmacist [facility] Clinical Pharmacy Services ([facility]) [phone] 08/31/2024, 1:48 PM * Addendum Note - [...] PM * Telephone Encounter - Tylor Landin, outsole tacker - 08/29/2024 1:23 PM EST Pt calling to ask when she would be eligible for new Gabapentin 400 MG Oral Capsule (Neurontin). Thank you, Tylor Landin Community Health Educator I [facility] ([facility]) 08/29/2024,1:43 PM documented in this encounter Plan of Treatment Upcoming Encounters Date Type Department Care Team (Late st Contact Info) Description 09/12/2024 4:15 PM EST Imaging Radiology [address], [place] 132 [facility] [place] [address] 10/02/2024 9:20 AM EST Office Visit [facility] [address] [place] [address] Aj Gaston III, MD [address] [place] [address] [place] [address] 10/03/2024 11:40 AM EST Office Visit [facility] [address] [place] [address] Aj Gaston III, MD [address] [place] [address] 10/12/2024 2:30 PM EST Telemedicine Psychology [facility] [address] [place] [address] Krys Santos, FARM MORTGAGE AGENT [address] [place] [address] 10/12/2024 5:00 PM EST Office Visit [facility] [address] [place] [address] Therese Perez PA-C [address] [place] [address] Health Maintenance Due Date Last Done Comments [...] as of this encounter Care Teams Construction Equipment Overhauler Relationship Specialty Start Date End Date Aj Gaston III, MD [address] [place] [address] PCP - General Family Medicine 05/12/23 documented as of this encounter
--- OUTSIDE RECORDS SUMMARY | 2024-11-28 05:31 | External Medical Summary | Summary of Care ---
Author Name Unknown Organization [facility] Address [address] [place] [address] Phone [phone] Care Team Providers Care Microfilm Mounter Name Role Phone Marilin MICHAELS MD, Aj Westfall Primary Care Provider [phone] Reason for Visit * Reason Onset Date Comments Med Request 08/29/2024 Encounter Details Date Type Department Care Team (Late st Contact Info) Description 08/29/2024 Telephone Family Practice [facility] 200 [place] [address] Aj Gaston III, MD 200 [place] [address] Med Request Allergies Active Allergy Reactions Criticality [...] encounter Miscellaneous Notes * Addendum Note - Ashli Alvarez CPhT [...] medication was ordered: Historical Patient Phone Numbers [facility] [phone] Labs: Lab Results Component Value Date/Time CREAT [...] PM * Telephone Encounter - Tylor Landin, handbag operator - 08/29/2024 1:23 PM EST Pt calling to ask when she would be eligible for new Gabapentin 400 MG Oral Capsule (Neurontin). Thank you, Tylor Landin Test Analyst I [facility] ([facility]) 08/29/2024,1:43 PM documented in this encounter Plan of Treatment Upcoming Encounters Date Type Department Care Team (Late st Contact Info) Description 09/12/2024 4:15 PM EST Imaging Radiology [address] 132 [facility] [place] [address] 10/02/2024 9:20 AM EST Office Visit [facility] [address] [place] [address] Aj Gaston III, MD [address] [place] [address] [place] [address] 10/03/2024 11:40 AM EST Office Visit [facility] [address] [place] [address] Aj Gaston III, MD [address] [place] [address] 10/12/2024 2:30 PM EST Telemedicine Psychology [facility] [address] [place] [address] Krys Santos, FLORICULTURIST [address] [place] [address] 10/12/2024 5:00 PM EST Office Visit [facility] [address] [place] [address] Therese Perez PA-C [address] [facility] [place] [address] Health Maintenance Due Date Last Done Comments [...] filedocumented as of this encounter Care Teams Microfilm Mounter Relationship Specialty Start Date End Date Aj Gaston III, MD [address] [place] [address] PCP - General Family Medicine 05/12/23 documented as of this encounter
--- OUTSIDE RECORDS SUMMARY | 2024-11-28 05:31 | External Medical Summary | Summary of Care ---
Author Name Unknown Organization [facility] Address [address] [place] [address] Phone [phone] Care Team Providers Care Internal Review And Audit Compliance Name Role Phone Marilin MICHAELS MD, Aj Westfall Primary Care Provider [phone] Reason for Visit * Reason Onset Date Comments Med Request 08/29/2024 Encounter Details Date Type Department Care Team (Late st Contact Info) Description 08/29/2024 Telephone Family Practice [facility] 200 [place] [address] Aj Gaston III, MD 200 [place] [address] Med Request Allergies Active Allergy Reactions Criticality [...] Miscellaneous Notes * Telephone Encounter - Tylor Landin unified communications engineer - 08/29/2024 1:23 PM EST Pt calling to ask when she would be eligible for new Gabapentin 400 MG Oral Capsule (Neurontin). Thank you, Tylor Landin Case Consultant I [facility] ([facility]) 08/29/2024,1:43 PM documented in this encounter Plan of Treatment Upcoming Encounters Date Type Department Care Team (Late st Contact Info) Description 09/12/2024 4:15 PM EST Imaging Radiology [address] [place] [address] 10/02/2024 9:20 AM EST Office Visit [facility] [address] [place] [address] Aj Gaston III, MD [address] [place] [address] 10/03/2024 11:40 AM EST Office Visit [facility] [address] [place] [address] Aj Gaston III, MD [address] [place] [address] 10/12/2024 2:30 PM EST Telemedicine Psychology [facility] [address] [place] [address] Krys Santos LCSW [address] [place] [address] 10/12/2024 5:00 PM EST Office Visit [facility] [address] [place] [address] Therese Perez PA-C [address] [place] [address] Health Maintenance Due Date Last Done Comments [...] filedocumented as of this encounter Care Teams Internal Review And Audit Compliance Relationship Specialty Start Date End Date Aj Gaston III, MD [address] [place] [address] PCP - General Family Medicine 05/12/23 documented as of this encounter
--- OUTSIDE RECORDS SUMMARY | 2024-11-28 05:31 | External Medical Summary ---
Author Name Unknown Address Unknown Organization K01:[facility] - [address] [facility] [place]. [facility] [address] Laboratory Report Ordering Provider Test Date Status BOOM KEBEDE 08/26/2024 09:40:00 Final Observation Date Value Abnormality Reference (Units ) Status MYCODE SPECIMEN-SST 08/26/2024 09:40:00 Freezing of extracted DNA, whole blood and/or serum. Final Performing Location [facility] - [address] [facility] [address]
--- OUTSIDE RECORDS SUMMARY | 2024-11-28 05:32 | External Medical Summary | Summary of Care ---
Author Name Unknown Organization [facility] Address [address] [place] [address] Phone [phone] Care Team Providers Care System Validation Engineer Name Role Phone Marilin MICHAELS MD, Aj Westfall Primary Care Provider [phone] Reason for Visit * Reason Comments Return Visit Would like to discus s dosage increase of flexeril, lorazapam, pt would like to discuss other medication concerns. Discuss hip pain, anxiety, nutritional concerns. Encounter Details Date Type Department Care Team (Latest Contact Info) Description 08/22/2024 4:00 PM EST Office Visit General Internal Medicine [facility] [address] [place] [address] Jolynn Aguilar MD [address] [place] [address] History of acute pancreatitis*; Alcohol use disorder; History of recent hospitalization Allergies Active Allergy Reactions Criticality Noted Date Comments Nickel Rash 06/01/2018 documented as of this encounter (statuses as of 08/22/2024) Medications Acetaminophen 500 MG Oral Tablet Take [...] the morning. 90 Tablet 3 4 Active Potassium Chloride ER 10 MEQ Oral Capsule Extended Release TAKE 2 CAPSULES BY MOUTH IN THE MORNING 60 Capsule 4 09/21/20 24 Active valACYclovir HCl 1 GM Oral Tablet (Valtrex)Indic ations:HSV-1 infection Take 1 Tablet by mouth in the morning and 1 Tablet at noon and 1 Tablet before bedtime. For 7 days for shingles. 21 Tablet 4 08/22/20 24 Discontin ued(Medic ation List Clean Up) documented as of this encounter (statuses as of 08/22/2024) Active Problems Problem Noted Date Diagnosed Date Major depressive disorder, recurrent episode, mo derate 11/15/2018 Depression with anxiety 10/19/2016 Malaise and fatigue 08/18/2010 Tobacco use disorder 11/02/2007 Elevated liver enzymes Migraine Insomnia documented as of this encounter (statuses as of 08/22/2024) Resolved Problems Problem Noted Date Diagnosed Date Resolved Date Alcohol abuse, in remission 04/24/2023 04/24/2023 Routine medical exam 08/18/2010 018 documented as of this encounter (statuses as of 08/22/2024) Immunizations Name Administration Dates Next Due Covid-19, [...] Sign Reading Time Taken Comments Blood Pressure 88/52 08/22/2024 4:30 PM EST Pulse 93 08/22/2024 4:30 PM EST Temperature 37 C (98.6 F) 08/22/2024 4:30 PM EST Respiratory Rate - - Oxygen Saturation 99% 08/22/2024 4:30 PM EST Inhaled Oxygen Concentration - - Weight 54 kg (119 lb 1.6 oz) 08/22/2024 4:30 PM EST Height - - Body Mass Index 20.43 06/16/2024 9:36 AM EDT documented in this encounter Progress Notes * Jolynn Aguilar MD - 08/22/2024 4:35 PM EST SUBJECTIVE: Emma Nathan is a 44 year old female. Chief Complaint Patient presents with Return Visit Would like to discuss dosage increase of flexeril, lorazapam, pt would like to discuss other medication concerns. Discuss hip pain, anxiety, nutritional concerns. HPI: Patient I am seeing for the 1st time, with multiple concerns, states this was a 2 week follow-up appointment from last visit which was another hospital follow up which Dr. Kraus had done. She was just discharged from the hospital yesterday, advised she will need to be scheduled for 40 minute hospital follow- up appointment. Was admitted for recurrent acute alcoholic pancreatitis. Per discharge instructions she was given methocarbamol but states some they switched back to Flexeril which she had been on before. Follow the instructions that they have given her. Was told may need to see a dietitian, for pancreatitis, advised to follow up with low residue diet that they have given her, stop drinking alcohol, to schedule appointment psychiatrist /[facility] for alcohol rehab, states she is established with a psychiatrist at [facility]. Patient Active Problem List Diagnosis Tobacco use [...] 7 DAYS 14 Tablet 1 Cyclobenzaprine HCl 5 MG Oral Tablet (Flexeril) [...] day as needed for Anxiety.120 Capsule 5 Sertraline HCl 50 MG Oral Tablet (Zoloft) [...] 3x daily. 270 Capsule 3 Magnesium Oxide 400 MG Oral Tablet Take 1 Tablet by mouth in the morning and 1 Tablet before bedtime. 180 Tablet 1 Torsemide 10 MG Oral Tablet (Demadex) Take 1 Tablet by mouth in the morning. 90 Tablet 3 Potassium Chloride ER 10 MEQ Oral Capsule Extended Release TAKE 2 CAPSULES BY MOUTH IN THE MORNING 60 Capsule 0 LORazepam 1 MG Oral Tablet (Ativan) 1 daily as needed anxiety (Patient not taking: Reported on 08/22/2024) 5 Tablet 0 No current facility-administered medications for this visit. Review of patient's allergies indicates: Allergen Reactions Nickel Rash OBJECTIVE: BP 88/52 | Pulse 93 | Temp 98.6 F (37 C) (Tympanic) | Wt 119 lb 1.6 oz (54 kg) | SpO2 99% | BMI20.43 kg/m | BSA 1.56 m PHYSICAL EXAM: General: alert, healthy, no distress, well developed Heart: regular rhythm and rate,No murmurs. Lungs: lungs clear to auscultation Abdomen: Soft, min epigastric tenderness, normal bowel sounds, no masses or organomegaly ASSESSMENT/PLAN: History of acute pancreatitis (Primary) Alcohol use disorder History of recent hospitalization --follow the instructions given by the hospital discharge yesterday, I would not change any medications today -schedule follow up with PCP for hospital follow-up Follow-up: Return if symptoms worsen or fail to improve. | Check-out note: Darrin with PCP/Any provider 40 min hosp f/u appt Cancel appt with me 08/28/24 (This note was completed using the dictation program Fluency Direct. As such, there may be misspellings, word substitutions, or other variations that should not change the essence of the clinical content of this encounter note. If there is need for further clarification, please direct questions to the provider listed above.) Patient and / caregiver verbalize understanding of above instructions and agrees with plan of care. Jolynn Aguilar MD 08/22/2024 documented in this encounter Nursing Notes * Guero Avery CMA - 08/22/2024 4:30 PM EST The patient has been properly identified by confirmation of name and date of . Chief Complaint Patient presents with Return Visit Would like to discuss dosage increase of flexeril, lorazapam, pt would like to discuss other medication concerns. Discuss hip pain, anxiety, nutritional concerns. documented in this encounter Plan of Treatment Upcoming Encounters Date Type Department Care Team (Late st Contact Info) Description 08/26/2024 8:40 AM EST Office Visit Family Practice [facility] 132 [facility] [place] [address] Aj Gaston III, MD [facility] [address] 09/12/2024 4:15 PM EST Imaging Radiology [facility] 1st [facility] [address] [place] [address] Health Maintenance Due Date Last Done Comments [...] as of this encounter Visit Diagnoses Diagnosis History of acute pancreatitis- Primary Personal history of other diseases of digestive system Alcohol use disorder History of recent hospitalization documented in this encounter Care Teams System Validation Engineer Relationship Specialty Start Date End Date Aj Gaston III, MD 200 [facility] [place] [address] PCP - General Family Medicine 05/12/23 documented as of this encounter"
--- OUTSIDE RECORDS SUMMARY | 2024-11-28 05:32 | External Medical Summary | Summary of Care ---
Author Name Unknown Organization [facility] Address [address] [place] [address] Phone [phone] Care Team Providers Care Order Caller Name Role Phone Marilin MICHAELS MD, Aj Westfall Primary Care Provider [phone] Reason for Visit * Reason Onset Date Comments Other 08/22/2024 Encounter Details Date Type Department Care Team (Late st Contact Info) Description 08/22/2024 Telephone Family Practice [facility] [address] [place] [address] Aj Gaston III, MD 200 [place] [address] Other Allergies Active Allergy Reactions Criticality Noted [...] as needed anxiety 5 Tablet 4 Active Cyclobenzaprin e HCl 5 MG Oral Tablet [...] mouth in the morning. 60 Capsule 4 024 Discontinued documented as of this encounter (statuses [...] No 08/01/2024 Does the household have a [facility] source of income? (Household - for [...] encounter Miscellaneous Notes * Telephone Encounter - Jim Rawls PHARM Tech - 08/22/2024 3:07 PM EST Pt asking to review medication. Thank you, Jim Rawls Director Of Development I [facility] (formerly Telepharmacy) 08/22/2024, 3:08 PM documented in this encounter Plan of Treatment Upcoming Encounters Date Type Department Care Team (Late st Contact Info) Description 08/22/2024 4:00 PM EST Office Visit General Internal Medicine [facility] [address] [place] [address] Jolynn Aguilar MD [address] [place] [address] 08/28/2024 10:20 AM EST Office Visit General Internal Medicine [facility] 200 [facility] [place] [address] Jolynn Aguilar MD 200 [facility] [place] [address] 09/12/2024 4:15 PM EST Imaging Radiology [address], [place] 132 [facility] [place] [address] Health Maintenance Due Date Last Done Comments [...] filedocumented as of this encounter Care Teams Order Caller Relationship Specialty Start Date End Date Aj Gaston III, MD 200 [facility] [place] [address] PCP - General Family Medicine 05/12/23 documented as of this encounter
--- OUTSIDE RECORDS SUMMARY | 2024-11-28 05:32 | External Medical Summary | Summary of Care ---
Author Name Unknown Organization [facility] Address [address] [place] [address] Phone [phone] Care Team Providers Care Coater Hand Name Role Phone Marilin MICHAELS MD, Gumaro Westfall Primary Care Provider [phone] Reason for Visit * Reason Comments eRx-Medication Refill Encounter Details Date Type Department Care Team (Late st Contact Info) Description 08/21/2024 Refill Family Practice [facility] 200 [place] [address] Gumaro Rodriguez III, MD 200 [place] [address] Allergies Active Allergy Reactions Criticality Noted Date [...] MOUTH IN THE MORNING 60 Capsule 4 024 Active Potassium Chloride ER 10 MEQ Oral [...] Does the household have a [facility] source of income? (Household - for [...] encounter Miscellaneous Notes * Telephone Encounter - Maria Fernanda Méndez [facility] - 08/22/2024 3:18 PM ESTSigned Prescriptions: Disp Refills Potassium Chloride ER 10 MEQ Oral Capsule *60 Cap*0 Sig: TAKE 2 CAPSULES BY MOUTH IN THE MORNINGAuthorizing Provider: GUMARO RODRIGUEZ III User: MARIA FERNANDA MÉNDEZ-- documented in this encounter Plan of Treatment Upcoming Encounters Date Type Department Care Team (Late st Contact Info) Description 08/22/2024 4:00 PM EST Office Visit General Internal Medicine [facility] [address] [place] [address] Jolynn Aguilar MD 200 [facility] [place] [address] 08/28/2024 10:20 AM EST Office Visit General Internal Medicine [facility] [address] [place] [address] Jolynn Aguilar MD 200 [facility] [place] [address] 09/12/2024 4:15 PM EST Imaging Radiology [address], [place] 132 [facility] [place] [address] Health Maintenance Due Date Last Done Comments [...] filedocumented as of this encounter Care Teams Coater Hand Relationship Specialty Start Date End Date Gumaro Rodriguez III, MD [address] [place] [address] PCP - General Family Medicine 05/12/23 documented as of this encounter
--- OUTSIDE RECORDS SUMMARY | 2024-11-28 05:32 | External Medical Summary | Summary of Care ---
Author Name Unknown Organization [facility] Address [address] [place] [address] Phone [phone] Care Team Providers Care Assistant Administrator Name Role Phone Marilin MICHAELS MD, Aj Westfall Primary Care Provider [phone] Encounter Details Date Type Department Care Team (Late st Contact Info) Description 08/22/2024 Population Health External Data Unspecified Department Allergies [...] for Anxiety. 120 Capsule 5 06/16/2024 Active Sertraline HCl 50 MG Oral [...] days for shingles. 21 Tablet 08/01/2024 Active Potassium Chloride ER 10 MEQ Oral Capsule Extended Release Take 2 Capsules by mouth in the morning. 60 Capsule 08/07/2024 09/06/20 24 Active Magnesium Oxide 400 MG Oral TabletIndicatio ns:Hypomagnesem ia Take 1 Tablet by mouth in the morning and 1 Tablet before bedtime. 180 Tablet 1 08/08/2024 Active Torsemide 10 MG Oral Tablet (Demadex)Indica tions:Pedal edema Take 1 Tablet by mouth in the morning. 90 Tablet 3 08/18/2024 Active documented as of this encounter (statuses [...] PM EST Office Visit General Internal Medicine [facility] [address] [place] [address] Jolynn Aguilar MD [address] [place] [address] 08/28/2024 10:20 AM EST Office Visit General Internal Medicine [facility] [address] [place] [address] Jolynn Aguilar MD [address] [place] [address] 09/12/2024 4:15 PM EST Imaging Radiology [facility] 1st [facility] 132 [facility] [place] [address] Health Maintenance Due Date Last Done Comments [...] filedocumented as of this encounter Care Teams Assistant Administrator Relationship Specialty Start Date End Date Aj Gaston III, MD 200 [facility] [place] [address] PCP - General Family Medicine 05/12/23 documented as of this encounter
--- OUTSIDE RECORDS SUMMARY | 2024-11-28 05:32 | External Medical Summary | Summary of Care ---
Author Name Unknown Organization [facility] Address [address] [place] [address] Phone [phone] Care Team Providers Care Technology Adoption Manager Name Role Phone Marilin MICHAELS MD, Gumaro Westfall Primary Care Provider [phone] Reason for Visit * Reason Onset Date Comments Medication Refill 08/21/2024 Encounter Details Date Type Department Care Team (Late st Contact Info) Description 08/21/2024 Refill Family Practice [facility] 200 [facility] [place] [address] Gumaro Rodriguez III, MD 200 [place] [address] HSV-1 infection Allergies Active Allergy Reactions Criticality [...] encounter Miscellaneous Notes * Telephone Encounter - Roland Latif, [facility] - 08/23/2024 8:25 AM ESTSigned Prescriptions: Disp [...] not appropriate * [facility] 8:23 AM EST Rerouted sertraline for 90ds, 90ds of valacyclovir not appropriate. Thank you, Roland Latif, PharmD Clinical Pharmacist [facility] ([facility]) [phone] 08/23/2024, 8:24 AM * [facility] - [facility] 08/22/2024 3:47 PM EST Pending Prescriptions: [...] for shingles. * [facility] 08/22/2024 3:46 PM EST Will review refill request 08/23 after appointment 08/22 Thank you, Roland Latif, Roxanne Clinical Pharmacist [facility] ([facility]) [phone] 08/22/2024, 3:46 PM * Telephone Encounter - Rita Pleitez PHARM Tech - 08/21/2024 4:34 PM EST Pt calling as she is in the hospital and being discharged from hospital. Did you pend patient's preferred pharmacy and medication before forwarding?yes Pharmacy: [id number] [address] [facility] Pending Prescriptions: Disp Refills Sertraline HCl 50 [...] pharmacy and medication before forwarding?yes Pharmacy: [id number] [address] [facility] Pending Prescriptions: Disp Refills Sertraline HCl 50 [...] 8:40 AM EST Office Visit Family Practice [facility] 132 [facility] [place] [address] Gumaro Rodriguez III, MD [address] [facility] [address] 09/12/2024 4:15 PM EST Imaging Radiology [facility] 1st [facility] [place] [address] [place] [address] Health Maintenance Due Date Last Done Comments [...] complication documented in this encounter Care Teams Technology Adoption Manager Relationship Specialty Start Date End Date Gumaro Rodriguez III, MD [address] [place] [address] PCP - General Family Medicine 05/12/23 documented as of this encounter
--- NOTE | 2024-11-28 06:13 | History & Physical Report ---
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 Patient states she relapsed and started drinking heavily since last few days. And she was not feeling well. She was feeling very anxious. Very restless. Very dizzy in the head. Has abdominal discomfort and some back pain. Denies any fevers. No runny nose or sore throat. No cough. No chest pain or shortness of breath. Not eating much. Did not move bowels for several days because not eating. Micturating okay. Parents in the room. Mother does not want patient to be on gabapentin and other psych medications for long-term. Patient want to continue home meds. Alcohol intoxication Alcohol level 522 Patient states relapsed History of alcohol withdrawal Placed on Librium protocol with IV Ativan as needed Thiamine and folic acid multivitamins Close monitor Anxiety and depression ADHD Continue home medications for now If needed will consult psychiatry Abdominal pain back pain Will monitor Labs okay. Creatinine okay. LFTs okay except for AST 44 CK and troponin negative. Lipase negative ,hCG negative. UA negative ,urine drug screen negative. 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 Patient states she relapsed and started drinking heavily since last few days. And she was not feeling well. She was feeling very anxious. Very restless. Very dizzy in the head. Has abdominal discomfort and some back pain. Denies any fevers. No runny nose or sore throat. No cough. No chest pain or shortness of breath. Not eating much. Did not move bowels for several days because not eating. Micturating okay. Parents in the room. Mother does not want patient to be on gabapentin and other psych medications for long-term. Patient want to continue home meds. Past medical history. As mentioned above Past surgical history. Dental surgery. Left ultrasound-guided breast biopsy Social history. Smoked 0.5 pack a day for 20 years. History of alcoholism in the past. Currently drinking again. No drug use. Family history. Father had alcoholism. A-fib. Paternal cousin had breast cancer. Paternal grandfather had prostate cancer. Allergies Allergy/AdvReac Type Severity Reaction Status Date / Time nickel Allergy Rash Verified 01/06/24 16:22 Home Medications Medication Instructions Recorded Confirmed Type amitriptyline 50 mg tablet 125 mg PO HS 11/27/24 11/27/24 History duloxetine 60 mg capsule,delayed 60 mg PO DAILY 11/27/24 11/27/24 History release gabapentin 400 mg capsule 400 mg PO TID 11/27/24 11/27/24 History hydroxyzine pamoate 100 mg capsule 100 mg PO QID PRN Anxiety 11/27/24 11/27/24 History lorazepam 1 mg tablet 1 mg PO TID PRN Anxiety 11/27/24 11/27/24 History topiramate 100 mg tablet 100 mg PO TID 11/27/24 11/27/24 History torsemide 10 mg tablet 10 mg PO DAILY 11/27/24 11/27/24 History Past Med/Surg History Problem List (Updated 11/27/24 @ 18:52 by Jeffrey No M.D.) Back pain (Acute) Alcohol intoxication (Acute) ZUHAIR (acute kidney injury) (Acute) Acute dehydration (Acute) Nausea & vomiting (Acute) History of alcohol dependence (Acute) Acute alcoholic pancreatitis (Acute) Pancreatitis without necrosis or infection Vomiting (Acute) ZUHAIR (acute kidney injury) (Acute) Alcohol withdrawal (Acute) Alcohol abuse (Acute) Hypomagnesemia (Acute) Tachycardia (Acute) Alcohol withdrawal Alcoholic ketoacidosis (Acute) Contusion (Acute) Alcoholic intoxication (Acute) Alcohol abuse (Acute) Weakness (Acute) Hypomagnesemia (Acute) Hallucinations (Acute) Alcohol abuse (Acute) S/P nasal surgery septoplasty and rhinoplasty-both w/Dr. Castañeda Allergic rhinitis Abnormal uterine bleeding ADD (attention deficit disorder) Insomnia Restless leg Anxiety and depression (Chronic) Fatty liver (Chronic) Alcohol dependence (Chronic) Medical History Tobacco use disorder Intractable nausea and vomiting Depression Anxiety Surgical History H/O wisdom tooth extraction Family History Aunt Breast cancer, Onset Age: 65 paternal Asthma maternal Grandfather (Paternal) Prostate cancer Aunt Allergies maternal Family/Other Allergies cousins Asthma cousins Other No family history of adverse response to anesthesia No family history of bleeding disorder Denies family history of Ovarian cancer Colorectal cancer Social History Smoking Status: Current every day smoker Tobacco Type: Cigarettes Age Started Using Tobacco: 20; packs per day: 0.5; Cigarettes Per Day: 4; Second Hand Exposure: No; Do You Dip or Chew Tobacco: No; Hx Alcohol Use: Yes Alcohol type: hard liquor Hx Substance Use: No Preferred Language: Hungarian 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 Ability: Effective Restoration Officer Required: No Beliefs That Will Affect Care: None marital status: Single Current Living Situation: Alone Feels Safe at Home: Yes Safety Concerns: Feels Safe At This Time Assistive Devices: None Review of Systems Review of Systems: All systems reviewed & are unremarkable except as noted in HPI & below Physical Exam Physical Exam: General- Not in acute distress. Head- atraumatic Eyes- PERRL. ENT- oropharynx clear Neck- supple, no JVD. Lungs- clear to auscultation no wheezing or crackles Heart- regular rhythm; no murmur, no gallop. Abdomen- normal bowel sounds, soft, nontender, no distension Extremities- no pretibial edema, no erythema seen Neuro- alert, oriented PERRL, no facial palsy; no dysarthria; moves extremities Results & Data Results & Data Vital Signs (Past 12 Hours) Vital Signs Temp Pulse Pulse Resp BP BP Pulse Ox 11/27/24 20:21 106 H 18 98/74 L 97 11/27/24 20:06 106 H 20 95 11/27/24 19:06 97 H 15 95 11/27/24 18:09 112 H 20 11/27/24 18:01 125 H 11/27/24 17:24 36.2 C L 121 H 22 73/58 L 94 O2 Del Method 11/27/24 20:21 Room Air 11/27/24 20:06 11/27/24 19:06 11/27/24 18:09 11/27/24 18:01 11/27/24 17:24 Room Air Diagnostic Findings Laboratory Results WBC 7.86 K/ul (4.8-10.8) 11/27/24 17:38 RBC 5.06 M/uL (4.20-5.40) 11/27/24 17:38 Hgb 15.7 g/dl (12.0-16.0) 11/27/24 17:38 POC Hgb 17.7 g/dl (12.0-16.0) H 11/27/24 17:49 Hct 45.4 % (37.0-47.0) 11/27/24 17:38 POC Hct 52 % (37-47) H 11/27/24 17:49 MCV 89.7 fL (80.0-100.0) 11/27/24 17:38 MCH 31.0 pg (25.0-34.0) 11/27/24 17:38 MCHC 34.6 g/dL (32.0-36.0) 11/27/24 17:38 RDW Std Deviation 41.0 fL (36.4-46.3) 11/27/24 17:38 RDW Coeff of Edgar 12.5 % (11.5-14.5) 11/27/24 17:38 Plt Count 271 K/uL (130-400) 11/27/24 17:38 MPV 9.7 fL (9.4-12.4) 11/27/24 17:38 Immature Gran % (Auto) 0.5 % 11/27/24 17:38 Neut % (Auto) 46.3 % 11/27/24 17:38 Lymph % (Auto) 46.7 % 11/27/24 17:38 [place] % (Auto) 4.7 % 11/27/24 17:38 Eos % (Auto) 1.0 % 11/27/24 17:38 Baso % (Auto) 0.8 % 11/27/24 17:38 Neut # (Auto) 3.64 K/uL (1.40-6.50) 11/27/24 17:38 Lymph # (Auto) 3.67 K/uL (1.20-3.40) H 11/27/24 17:38 [place] # (Auto) 0.37 K/uL (0.11-0.59) 11/27/24 17:38 Eos # (Auto) 0.08 K/uL (0.00-0.50) 11/27/24 17:38 Baso # (Auto) 0.06 K/uL (0.00-0.20) 11/27/24 17:38 Immature Gran # (Auto) 0.04 K/uL (0.01-0.20) 11/27/24 17:38 PT 10.3 Seconds (9.0-12.0) 11/27/24 17:38 INR 0.9 (0.9-1.1) 11/27/24 17:38 POC Sodium 142 mmol/L (135-144) 11/27/24 17:49 Sodium 140 mmol/L (136-145) 11/27/24 17:38 POC Potassium 4.5 mmol/L (3.3-5.0) 11/27/24 17:49 Potassium 4.5 mmol/L (3.5-5.1) 11/27/24 17:38 POC Chloride 100 mmol/L (101-112) L 11/27/24 17:49 Chloride 99 mmol/L (98-107) 11/27/24 17:38 Carbon Dioxide 27 mmol/L (21-32) 11/27/24 17:38 POC Total CO2 27 mmol/L (24-31) 11/27/24 17:49 Anion Gap 14 (3-11) H 11/27/24 17:38 POC Anion Gap 20.0 mmol/L (16-25) 11/27/24 17:49 POC BUN 8 mg/dl (7-18) 11/27/24 17:49 BUN 10 mg/dl (6-23) 11/27/24 17:38 Creatinine 0.82 mg/dl (0.6-1.2) 11/27/24 17:38 POC Creatinine 1.3 mg/dl (0.6-1.3) 11/27/24 17:49 Est Cr Clr Drug Dosing Not Reportable 11/27/24 17:38 eGFR 91.53 11/27/24 17:38 BUN/Creatinine Ratio 12.2 (10-20) 11/27/24 17:38 Glucose 109 mg/dl (70-99(Fasting)) H 11/27/24 17:38 POC Glucose (other) 108 mg/dl (70-99) H 11/27/24 17:49 Calcium 10.3 mg/dl (8.6-10.3) 11/27/24 17:38 POC Ioniz Calcium Cornel 1.07 mmol/l (1.12-1.32) L 11/27/24 17:49 Magnesium 2.0 mg/dl (1.7-2.4) 11/27/24 17:38 Total Bilirubin 0.5 mg/dl (0.2-1.0) 11/27/24 17:38 AST 44 U/L (13-39) H 11/27/24 17:38 ALT 33 U/L (7-52) 11/27/24 17:38 Alkaline Phosphatase 81 U/L (34-104) 11/27/24 17:38 Total Creatine Kinase 91 U/L (26-192) 11/27/24 17:38 Troponin I High Sens < 2.3 pg/ml (0-14) 11/27/24 17:38 Total Protein 8.0 gm/dl (6.0-8.3) 11/27/24 17:38 Albumin 4.8 gm/dl (3.4-5.0) 11/27/24 17:38 Globulin 3.2 gm/dl (2.5-4.0) 11/27/24 17:38 Albumin/Globulin Ratio 1.5 (0.9-2) 11/27/24 17:38 Lipase 64 U/L (11-82) 11/27/24 17:38 TSH 1.332 uIu/ml (0.300-4.500) 11/27/24 17:38 HCG, Qual Negative (Negative) 11/27/24 17:38 Urine Color Yellow 11/27/24 22:20 Urine Appearance Clear (Clear) 11/27/24 22:20 Urine pH 6.0 (4.5-7.5) 11/27/24 22:20 Ur Specific [place] 1.009 (1.000-1.030) 11/27/24 22:20 Urine Protein Negative (Negative) 11/27/24 22:20 Urine Glucose (UA) Negative (Negative) 11/27/24 22:20 Urine Ketones Trace (Negative) H 11/27/24 22:20 Urine Blood Negative (Negative) 11/27/24 22:20 Urine Nitrite Negative (Negative) 11/27/24 22:20 Urine Bilirubin Negative (Negative) 11/27/24 22:20 Urine Urobilinogen Negative (Negative) 11/27/24 22:20 Ur Leukocyte Esterase Negative (Negative) 11/27/24 22:20 Salicylates < 3.0 mg/dl (3.0-30) L 11/27/24 17:38 Urine Opiates Screen Neg (Neg) 11/27/24 22:20 Ur Methadone, Qual Neg (Neg) 11/27/24 22:20 Urine Fentanyl Screen Neg (Neg) 11/27/24 22:20 Acetaminophen < 3 ug/ml (10-30) L 11/27/24 17:38 Urine Barbiturates Neg (Neg) 11/27/24 22:20 Ur Phencyclidine (PCP) Neg (Neg) 11/27/24 22:20 U Amphetamin/Meth Scrn Neg (Neg) 11/27/24 22:20 MDMA (Ecstasy) Screen Neg (Neg) 11/27/24 22:20 U Benzodiazepines Scrn Neg (Neg) 11/27/24 22:20 Ur Cocaine Metabolite Neg (Neg) 11/27/24 22:20 U Marijuana (THC) Screen Neg (Neg) 11/27/24 22:20 Ethyl Alcohol mg/dL 522.8 mg/dl (<10.0) H 11/27/24 17:38 Adenovirus (PCR) Not Detected (NotDetected) 11/27/24 17:40 B. pertussis DNA (PCR) Not Detected (NotDetected) 11/27/24 17:40 B.parapertussis DNA PCR Not Detected (NotDetected) 11/27/24 17:40 C. pneumoniae DNA (PCR) Not Detected (NotDetected) 11/27/24 17:40 Coronavirus OC43 (PCR) Not Detected (NotDetected) 11/27/24 17:40 Coronavirus HKU1 (PCR) Not Detected (NotDetected) 11/27/24 17:40 Coronavirus 229E (PCR) Not Detected (NotDetected) 11/27/24 17:40 SARS-CoV-2 (PCR) Not Detected (NotDetected) 11/27/24 17:40 Coronavirus NL63 (PCR) Not Detected (NotDetected) 11/27/24 17:40 Human Metapneumovir PCR Not Detected (NotDetected) 11/27/24 17:40 Influenza Type A (PCR) Not Detected (NotDetected) 11/27/24 17:40 Influenza Type B (PCR) Not Detected (NotDetected) 11/27/24 17:40 M. pneumoniae (PCR) Not Detected (NotDetected) 11/27/24 17:40 Parainfluenza 1 (PCR) Not Detected (NotDetected) 11/27/24 17:40 Parainfluenza 2 (PCR) Not Detected (NotDetected) 11/27/24 17:40 Parainfluenza 3 (PCR) Not Detected (NotDetected) 11/27/24 17:40 Parainfluenza 4 (PCR) Not Detected (NotDetected) 11/27/24 17:40 RSV (PCR) Not Detected (NotDetected) 11/27/24 17:40 Entero/Rhino (PCR) Not Detected (NotDetected) 11/27/24 17:40 ECG Additional Comments: ECG sinus tachycardia rate of 121. Nonspecific T wave abnormalities. Code Status & VTE Plan VTE Prophylaxis Plan VTE Prophylaxis will be ordered: Yes (1) Alcohol intoxication Complication of substance-induced condition: with unspecified complication Qualified Code(s): F10.929 - Alcohol use, unspecified with intoxication, unspecified
[2024-11-28] MEDS: MULTIVITAMIN TAB PO SCH (08:55)
[2024-11-28] MEDS: DULoxetine HCL 60 MG CAP PO SCH (08:55)
[2024-11-28] MEDS: FOLIC ACID 1 MG TAB PO SCH (08:55)
[2024-11-28] MEDS: THIAMINE HCL 100 MG TAB PO SCH (08:55)
[2024-11-28 09:06] LABS: Albumin Level 3.1 gm/dl (3.4-5.0); BUN Creatinine Ratio 17.5 (10-20); Bilirubin Direct 0.2 mg/dl (0-0.2); Bilirubin,Total 0.8 mg/dl (0.2-1.0); Calcium 7.4 mg/dl (8.6-10.3); Creatinine Clr Calc Pharmacy 93.7 ml/min; Magnesium 1.3 mg/dl (1.7-2.4); Phosphorus 4.2 mg/dl (2.5-4.9); Potassium 3.9 mmol/L (3.5-5.1); Total Protein 4.9 gm/dl (6.0-8.3)
[2024-11-28 09:13] LABS: Hematocrit (blood only) 31.9 % (37.0-47.0); Hemoglobin 10.8 g/dl (12.0-16.0); Mean Corpuscular Hemoglobin 31.5 pg (25.0-34.0); Mean Corpuscular Hgb Conc 33.9 g/dL (32.0-36.0); Mean Platelet Volume 9.7 fL (9.4-12.4); Platelet Count 146 K/uL (130-400); RDW Coefficient of Variation 12.5 % (11.5-14.5); RDW Standard Deviation 42.4 fL (36.4-46.3); Red Blood Count 3.43 M/uL (4.20-5.40)
[2024-11-28 09:25] LABS: Folate (Folic Acid),Ser orPlas 7.02 ng/ml (>5.38)
[2024-11-28 09:42] LABS: Basophils # (auto) 0.03 K/uL (0.00-0.20); Basophils % (auto) 0.6 %; Eosinophils # (auto) 0.11 K/uL (0.00-0.50); Eosinophils % (auto) 2.1 %; Immature Granulocytes # (auto) 0.01 K/uL (0.01-0.20); Immature Granulocytes % (auto) 0.2 %; Lymphocytes % (auto) 50.9 %; Monocytes # (auto) 0.25 K/uL (0.11-0.59); Monocytes % (auto) 4.7 %; Neutrophils % (auto) 41.5 %
--- NOTE | 2024-11-28 14:05 | Hospitalist Progress Note ---
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 Patient states she relapsed and started drinking heavily since last few days. And she was not feeling well. She was feeling very anxious. Very restless. Very dizzy in the head. Has abdominal discomfort and some back pain. Denies any fevers. No runny nose or sore throat. No cough. No chest pain or shortness of breath. Not eating much. Did not move bowels for several days because not eating. Micturating okay. Parents in the room. Mother does not want patient to be on gabapentin and other psych medications for long-term. Patient want to continue home meds. Alcohol intoxication -Alcohol level 522 -Patient states relapsed -History of alcohol withdrawal -Placed on Librium protocol with IV Ativan as needed -Thiamine and folic acid multivitamins Anxiety and depression ADHD -Continue home medications for now -If needed will consult psychiatry Abdominal pain back pain -Will monitor -Labs okay. Creatinine okay. LFTs okay except for AST 44 -CK and troponin negative. Lipase negative ,hCG negative. UA negative ,urine drug screen negative. Respiratory BioFire negative Plan Feeding/fluids: regular Analgesia: start tylenol Sedation: librium Thromboprophylaxis: lovenox Head up position: na Ulcer prophylaxis: na Glycemic control: na Spontaneous breathing trial: na Bowel care: miralax prn Indwelling catheter removal: na Deescalation of antibiotics: na I spent a total of 50 minutes in direct patient care, including [id number] time with the patient and/or family, reviewing medical records, ordering and reviewing diagnostic tests, and coordinating care with other healthcare providers. This time includes: history taking, physical examination, medical decision making, counseling, ECG interpretation, imaging interpretation, lab interpretation, orders, and education, excluding time spent in the performance of separately billed services. Admission and Anticipated Discharge Date Admission Date: November 27, 2024 Subjective Patient seen and examined at bedside. Patient is not orriented to place or time during my evaluation. Updated cornelio (primary contact) about plan for sobering up and hopefully inpatient rehab, he is agreeable and appreciative of the update. Review of Systems Review of Systems: -unable to answer due to mental status Physical Exam Physical Exam: Gen: A&O 1 NAD HEENT: NCAT, EOMI, not icteric. External ears normal. No rhinorrhea. Moist mucous membranes. Neck: Supple, full range of motion, no observable masses, No meningeal sign. Lungs: No Respiratory distress. CV: tachycardic, regular rhythm Abdomen: Soft, nondistended, No rebound tenderness. MSK: No joint swelling, no redness. Skin: No rashes, petechiae, lesions. Normal color per patient. Neuro: Normal Gait, Grossly intact. Results & Data Results & Data Vital Signs (Past 12 Hours) Vital Signs Temp Pulse Pulse Resp BP Pulse Ox O2 Del Method 11/28/24 13:59 97 H 11/28/24 12:00 36.7 C 89 16 90/58 L 95 Room Air 11/28/24 08:38 36.6 C 89 17 91/60 L 99 Room Air 11/28/24 07:20 101 H 11/28/24 04:41 36.7 C 107 H 18 92/54 L 96 Room Air Laboratory Results -personally reviewed, low Mg of 1.3 in setting of alcohol use, correct calcium within normal limits, alcohol level over 500 on arrival to ED Medications Administered Amitriptyline HCl (Amitriptyline Hcl 25 Mg Tab) 125 mg PO HS TIN Stop: 12/27/24 22:44 Last Admin: 11/28/24 00:10 Dose: 125 mg Documented By: DEMETRIUS Chlordiazepoxide HCl (Chlordiazepoxide Hcl 25 Mg Cap) 50 mg PO Q6H TIN Stop: 11/28/24 16:46 Last Admin: 11/28/24 11:32 Dose: 50 mg Documented By: Admin: 11/28/24 05:09 Dose: 50 mg Documented By: Admin: 11/28/24 00:11 Dose: 50 mg Documented By: DEMETRIUS Duloxetine HCl (Duloxetine Hcl 60 Mg Cap) 60 mg PO DAILY TIN Stop: 12/28/24 08:59 Last Admin: 11/28/24 08:55 Dose: 60 mg Documented By: HAILEY Enoxaparin Sodium (Enoxaparin Inj 40 Mg/0.4 Ml Syr) 40 mg SQ HS TIN Stop: 12/27/24 22:59 Last Admin: 11/28/24 00:12 Dose: 40 mg Documented By: DEMETRIUS Folic Acid (Folic Acid 1 Mg Tab) [facility] Stop: 12/28/24 08:59 Last Admin: 11/28/24 08:55 Dose: 1 mg Documented By: HAILEY Gabapentin (Gabapentin 400 Mg Cap) 400 mg PO TID [facility] Stop: 12/27/24 22:44 Last Admin: 11/28/24 13:46 Dose: 400 mg Documented By: Admin: 11/28/24 08:55 Dose: 400 mg Documented By: Admin: 11/28/24 00:11 Dose: 400 mg Documented By: DEMETRIUS Lorazepam (Lorazepam 2 Mg/1 Ml Vial) 1 mg IV UD PRN; Protocol PRN Reason: EtOH Withdrawal AWSS Score 6,7 Stop: 12/27/24 22:44 Last Admin: 11/28/24 03:16 Dose: 1 mg Documented By: DEMETRIUS Multivitamins (Multivitamin Tab) 1 tab PO [facility] Stop: 12/28/24 08:59 Last Admin: 11/28/24 08:55 Dose: 1 tab Documented By: HAILEY Ondansetron HCl (Ondansetron Inj 2 Mg/Ml 2 Ml Vial) 4 mg IV Q6H PRN PRN Reason: Nausea Stop: 12/27/24 22:44 Last Admin: 11/28/24 00:29 Dose: 4 mg Documented By: DEMETRIUS Thiamine HCl (Thiamine Hcl 100 Mg Tab) [facility] Stop: 12/28/24 08:59 Last Admin: 11/28/24 08:55 Dose: 100 mg Documented By: HAILEY Topiramate (Topiramate 100 Mg Tab) 100 mg PO TID [facility] Stop: 12/27/24 22:44 Last Admin: 11/28/24 13:46 Dose: 100 mg Documented By: Admin: 11/28/24 08:55 Dose: 100 mg Documented By: Admin: 11/28/24 00:11 Dose: 100 mg Documented By: DEMETRIUS (1) Alcohol intoxication Complication of substance-induced condition: with unspecified complication Qualified Code(s): F10.929 - Alcohol use, unspecified with intoxication, unspecified
[2024-11-28] MEDS ORDERED: POLYETHYLENE (MIRALAX) 17 GM PACK PO PRN (14:33)
[2024-11-28] MEDS: MAGNESIUM SULFATE / D5W 1 GM/100 ML BAG IV SCH (14:48)
[2024-11-28] MEDS: KETOROLAC TROMETHAMINE 15 MG/ML VIAL IV PRN (17:43)
[2024-11-28] MEDS: LIDOCAINE 5% 1 PATCH TD SCH (17:44)
[2024-11-28] MEDS: D5W AND LACTATED RINGERS 1,000 ML IV SCH (17:46)
[2024-11-28] MEDS: ACETAMINOPHEN 500 MG TAB PO PRN (20:11)
[2024-11-29 08:13] LABS: Hematocrit (blood only) 32.3 % (37.0-47.0); Hemoglobin 10.7 g/dl (12.0-16.0); Mean Corpuscular Hemoglobin 31.5 pg (25.0-34.0); Mean Corpuscular Hgb Conc 33.1 g/dL (32.0-36.0); Mean Platelet Volume 9.8 fL (9.4-12.4); Platelet Count 130 K/uL (130-400); RDW Coefficient of Variation 12.3 % (11.5-14.5); RDW Standard Deviation 43.1 fL (36.4-46.3); White Blood Count 3.97 K/ul (4.8-10.8)
[2024-11-29 08:28] LABS: Calcium 8.2 mg/dl (8.6-10.3); Creatinine Clr Calc Pharmacy 87.9 ml/min; Magnesium 2.1 mg/dl (1.7-2.4); Phosphorus 3.6 mg/dl (2.5-4.9); Potassium 4.1 mmol/L (3.5-5.1)
[2024-11-29] MEDS: DULoxetine HCL 30 MG CAP PO SCH (09:08)
--- NOTE | 2024-11-29 12:05 | Hospitalist Progress Note ---
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 Patient states she relapsed and started drinking heavily since last few days. And she was not feeling well. She was feeling very anxious. Very restless. Very dizzy in the head. Has abdominal discomfort and some back pain. Denies any fevers. No runny nose or sore throat. No cough. No chest pain or shortness of breath. Not eating much. Alcohol Intoxication, resolved Alcohol Withdrawal -Alcohol level 522 on arrival -Patient states relapsed -History of alcohol withdrawal -withdrawal symptoms appear to be improving significantly Plan: -continue librium taper with IV Ativan as needed -Thiamine and folic acid multivitamins -discussed with patient, open to resources for sobriety including inpatient rehab Anxiety and depression ADHD -Continue home medications for now Chronic Back Pain -Will monitor Plan Feeding/fluids: regular Analgesia: tylenol Sedation: librium Thromboprophylaxis: lovenox Head up position: na Ulcer prophylaxis: na Glycemic control: na Spontaneous breathing trial: na Bowel care: miralax prn Indwelling catheter removal: na Deescalation of antibiotics: na I spent a total of 55 minutes in direct patient care, including [id number] time with the patient and/or family, reviewing medical records, ordering and reviewing diagnostic tests, and coordinating care with other healthcare providers. This time includes: history taking, physical examination, medical decision making, counseling, ECG interpretation, imaging interpretation, lab interpretation, orders, and education, excluding time spent in the performance of separately billed services. Admission and Anticipated Discharge Date Admission Date: November 27, 2024 Subjective Patient seen and examined at bedside. Patient doing ok today. Long discussion regarding alcohol use, and concern that she needs additional resources to help her with her sobriety, possibly including inpatient rehab. She is agreeable to this. Review of Systems Review of Systems: CONSTITUTIONAL: weakness, fatigue EYES: Patient denies any visual symptoms. EARS, NOSE, AND THROAT: No difficulties with hearing. No symptoms of rhinitis or sore throat. CARDIOVASCULAR: Patient denies chest pains, palpitations, orthopnea and paro xysmal nocturnal dyspnea. RESPIRATORY: No dyspnea on exertion, no wheezing or cough. GI: No nausea, vomiting, diarrhea, constipation, abdominal pain, hematochezia or melena. : No urinary hesitancy or dribbling. No nocturia or urinary frequency. No abnormal urethral discharge. MUSCULOSKELETAL: No myalgias or arthralgias. NEUROLOGIC: No chronic headaches, no seizures. Patient denies numbness, tingling or weakness. PSYCHIATRIC: Patient denies problems with mood disturbance. No problems with anxiety. ENDOCRINE: No excessive urination or excessive thirst. DERMATOLOGIC: Patient denies any rashes or skin changes. Physical Exam Physical Exam: Gen: A&O 3 NAD HEENT: NCAT, EOMI, not icteric. External ears normal. No rhinorrhea. Moist mucous membranes. Neck: Supple, full range of motion, no observable masses, No meningeal sign. Lungs: No Respiratory distress. CV: tachycardic, regular rhythm Abdomen: Soft, nondistended, No rebound tenderness. MSK: No joint swelling, no redness. Skin: No rashes, petechiae, lesions. Normal color per patient. Neuro: Normal Gait, Grossly intact. Results & Data Results & Data Vital Signs (Past 12 Hours) Vital Signs Temp Pulse Pulse Pulse Resp BP BP 11/29/24 11:19 36.6 C 91 H 17 94/63 L 11/29/24 07:59 36.3 C L 69 14 87/61 L 11/29/24 03:07 36.5 C 71 16 86/56 L Pulse Ox O2 Del Method 11/29/24 11:19 96 Room Air 11/29/24 07:59 11/29/24 03:07 96 Room Air Laboratory Results -personally reviewed, creatinine at baseline no leukocytosis Medications Administered Acetaminophen (Acetaminophen 500 Mg Tab) 1,000 mg PO Q8H PRN PRN Reason: Pain Stop: 12/28/24 14:25 Last Admin: 11/29/24 06:23 Dose: 1,000 mg Documented By: Admin: 11/28/24 20:11 Dose: 1,000 mg Documented By: DM Amitriptyline HCl (Amitriptyline Hcl 25 Mg Tab) 75 mg PO HS TIN Stop: 12/28/24 20:59 Last Admin: 11/28/24 20:11 Dose: 75 mg Documented By: DM Chlordiazepoxide HCl (Chlordiazepoxide Hcl 25 Mg Cap) 50 mg PO Q8H [facility] Stop: 11/29/24 14:31 Last Admin: 11/29/24 06:22 Dose: 50 mg Documented By: Admin: 11/28/24 22:23 Dose: 50 mg Documented By: DEMETRIUS Duloxetine HCl (Duloxetine Hcl 30 Mg Cap) 30 mg PO DAILY [facility] Stop: 12/29/24 08:59 Last Admin: 11/29/24 09:08 Dose: 30 mg Documented By: MARY KAY Co-signed By: NAHOMY Enoxaparin Sodium (Enoxaparin Inj 40 Mg/0.4 Ml Syr) 40 mg SQ HS [facility] Stop: 12/27/24 22:59 Last Admin: 11/28/24 20:12 Dose: 40 mg Documented By: Admin: 11/28/24 00:12 Dose: 40 mg Documented By: DEMETRIUS Folic Acid (Folic Acid 1 Mg Tab) 1 mg PO QAM [facility] Stop: 12/28/24 08:59 Last Admin: 11/29/24 09:08 Dose: 1 mg Documented By: MARY KAY Co-signed By: NAHOMY Admin: 11/28/24 08:55 Dose: 1 mg Documented By: HAILEY Gabapentin (Gabapentin 400 Mg Cap) 400 mg PO TID [facility] Stop: 12/27/24 22:44 Last Admin: 11/29/24 09:08 Dose: 400 mg Documented By: MARY KAY Co-signed By: NAHOMY Admin: 11/28/24 20:11 Dose: 400 mg Documented By: Admin: 11/28/24 13:46 Dose: 400 mg Documented By: Admin: 11/28/24 08:55 Dose: 400 mg Documented By: Admin: 11/28/24 00:11 Dose: 400 mg Documented By: DEMETRIUS Ketorolac Tromethamine (Ketorolac Tromethamine 15 Mg/Ml Vial) 15 mg IV Q6H PRN PRN Reason: Pain Stop: 12/03/24 17:02 Last Admin: 11/29/24 00:27 Dose: 15 mg Documented By: Admin: 11/28/24 17:43 Dose: 15 mg Documented By: HAILEY Lidocaine (Lidocaine 5% 1 Patch) 1 patch TD QAM [facility] Stop: 12/28/24 17:14 Last Admin: 11/29/24 09:26 Dose: Not Given Documented By: MARY KAY Admin: 11/28/24 17:44 Dose: 1 patch Documented By: HAILEY Lorazepam (Lorazepam 2 Mg/1 Ml Vial) 1 mg IV UD PRN; Protocol PRN Reason: EtOH Withdrawal AWSS Score 6,7 Stop: 12/27/24 22:44 Last Admin: 11/28/24 03:16 Dose: 1 mg Documented By: DEMETRIUS Miscellaneous (Remove Lidoderm Patch) 1 each N/A DAILY@2100 [facility] Stop: 12/28/24 22:59 Last Admin: 11/28/24 22:24 Dose: 1 each Documented By: DEMETRIUS [facility]ivitamins ([facility]amin Tab) [facility] [place]: 12/28/24 08:59 Last Admin: 11/29/24 09:11 Dose: 1 tab Documented By: MARY KAY Co-signed By: NAHOMY Admin: 11/28/24 08:55 Dose: 1 tab Documented By: HAILEY Ondansetron HCl (Ondansetron Inj 2 Mg/Ml 2 Ml Vial) 4 mg IV Q6H PRN PRN Reason: Nausea Stop: 12/27/24 22:44 Last Admin: 11/28/24 00:29 Dose: 4 mg Documented By: DEMETRIUS Thiamine HCl (Thiamine Hcl 100 Mg Tab) [facility] [place] Stop: 12/28/24 08:59 Last Admin: 11/29/24 09:10 Dose: 100 mg Documented By: MARY KAY Co-signed By: NAHOMY Admin: 11/28/24 08:55 Dose: 100 mg Documented By: HAILEY Topiramate (Topiramate 100 Mg Tab) 100 mg PO TID [facility] Stop: 12/27/24 22:44 Last Admin: 11/29/24 09:10 Dose: 100 mg Documented By: MARY KAY Co-signed By: NAHOMY Admin: 11/28/24 20:11 Dose: 100 mg Documented By: Admin: 11/28/24 13:46 Dose: 100 mg Documented By: Admin: 11/28/24 08:55 Dose: 100 mg Documented By: Admin: 11/28/24 00:11 Dose: 100 mg Documented By: DEMETRIUS (1) Alcohol intoxication Complication of substance-induced condition: with unspecified complication Qualified Code(s): F10.929 - Alcohol use, unspecified with intoxication, unspecified
--- NOTE | 2024-11-29 20:30 | Electrocardiogram Report ---
Test Reason : Blood Pressure : */* mmHG Vent. Rate : 121 BPM Atrial Rate : 121 BPM P-R Int : 164 ms QRS Dur : 72 ms QT Int : 304 ms P-R-T Axes : 80 67 51 degrees QTcB Int : 431 ms Sinus tachycardia Nonspecific ST abnormality Inferior leads Borderline ECG When compared with ECG of 21-Aug-2024 06:13, Vent. rate has increased by 44 bpm Nonspecific T wave abnormality, worse in Inferior leads Nonspecific T wave abnormality now evident in Anterolateral leads Confirmed by Venancio Trimble ([id number]) on 11/29/2024 8:30:17 PM Referred By: REFERRED SELF Confirmed By: Venancio Trimble
[2024-11-29] MEDS ORDERED: chlordiazePOXIDE HCl 25 MG CAP PO SCH (22:30)
[2024-11-30 06:54] LABS: Hematocrit (blood only) 33.4 % (37.0-47.0); Hemoglobin 10.9 g/dl (12.0-16.0); Mean Corpuscular Hemoglobin 30.9 pg (25.0-34.0); Mean Corpuscular Hgb Conc 32.6 g/dL (32.0-36.0); Mean Corpuscular Volume 94.6 fL (80.0-100.0); Mean Platelet Volume 9.8 fL (9.4-12.4); Platelet Count 130 K/uL (130-400); RDW Coefficient of Variation 12.5 % (11.5-14.5); Red Blood Count 3.53 M/uL (4.20-5.40); White Blood Count 4.65 K/ul (4.8-10.8)
[2024-11-30 07:26] LABS: Calcium 8.3 mg/dl (8.6-10.3); Creatinine Clr Calc Pharmacy 84.4 ml/min; Magnesium 1.8 mg/dl (1.7-2.4); Phosphorus 3.7 mg/dl (2.5-4.9); Potassium 4.1 mmol/L (3.5-5.1)
--- NOTE | 2024-11-30 10:17 | Hospitalist Progress Note ---
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 Patient states she relapsed and started drinking heavily since last few days. And she was not feeling well. She was feeling very anxious. Very restless. Very dizzy in the head. Has abdominal discomfort and some back pain. Denies any fevers. No runny nose or sore throat. No cough. No chest pain or shortness of breath. Not eating much. Alcohol Intoxication, resolved Alcohol Withdrawal -Alcohol level 522 on arrival -Patient states relapsed -History of alcohol withdrawal -withdrawal symptoms appear to be improving significantly Plan: -continue librium taper with IV Ativan as needed -Thiamine and folic acid multivitamins -patient open to resources for sobriety including inpatient rehab Anxiety and depression ADHD -Continue home medications for now Chronic Back Pain -Will monitor Abd. pain - can be secondary to pancreatitis, alcoholic gastritis - lipase on 11/27 normal, will repeat the level - clear liquid diet for now, IVF - start PPI - cont. to monitor closely Admission and Anticipated Discharge Date Admission Date: November 27, 2024 Subjective Pt seen in follow up of alcohol abuse/ intoxication Yesterday had a long discussion regarding alcohol use with previous hospitalist, and concern that she needs additional resources to help her with her sobriety, possibly including inpatient rehab. She was agreeable to this. CM aware and plans to discuss with the pt again. Today pt reports some abd. pain, says it feels like pancreatitis she had before. Will obtain lipase, will start fluids. No fever, chills, chest pain or shortness of breath. reports chronic back pain. Review of Systems Review of Systems: All systems reviewed & are unremarkable except as noted in Subjective Physical Exam Physical Exam: Gen: young F, A&O 3 NAD HEENT: NCAT, EOMI, not icteric. External ears normal. Neck: Supple Lungs: No Respiratory distress. CV: regular rhythm Abdomen: Soft, nondistended, mild tenderness in epigastrium MSK: moves extremities Skin: warm, dry Neuro: awake, alert, able to answer appropriately, speech fluent, no facial asymmetry, moves extremities Results & Data Results & Data Vital Signs (Past 12 Hours) Vital Signs Temp Pulse Pulse Resp BP BP Pulse Ox 11/30/24 07:28 36.3 C L 77 20 94/61 L 98 11/30/24 04:01 36.4 C L 78 18 90/61 L 97 11/29/24 23:23 87 11/29/24 22:14 36.4 C L 87 18 91/62 L 97 O2 Del Method 11/30/24 07:28 Room Air 11/30/24 04:01 Room Air 11/29/24 23:23 11/29/24 22:14 Room Air Laboratory Results 11/30/24 Range/Units 06:31 WBC 4.65 L (4.8-10.8) K/ul RBC 3.53 L (4.20-5.40) M/uL Hgb 10.9 L (12.0-16.0) g/dl Hct 33.4 L (37.0-47.0) % MCV 94.6 (80.0-100.0) fL MCH 30.9 (25.0-34.0) pg MCHC 32.6 (32.0-36.0) g/dL RDW Std Deviation 43.0 (36.4-46.3) fL RDW Coeff of Edgar 12.5 (11.5-14.5) % Plt Count 130 (130-400) K/uL MPV 9.8 (9.4-12.4) fL Sodium 140 (136-145) mmol/L Potassium 4.1 (3.5-5.1) mmol/L Chloride 112 H (98-107) mmol/L Carbon Dioxide 24 (21-32) mmol/L Anion Gap 4 (3-11) BUN 18 (6-23) mg/dl Creatinine 0.75 (0.6-1.2) mg/dl Est Cr Clr Drug Dosing 84.4 ml/min eGFR 101.88 BUN/Creatinine Ratio 24.0 H (10-20) Glucose 82 (70-99(Fasting)) mg/dl Calcium 8.3 L (8.6-10.3) mg/dl Phosphorus 3.7 (2.5-4.9) mg/dl Magnesium 1.8 (1.7-2.4) mg/dl Lipase Pending Medications Administered Current Inpatient Medications Acetaminophen (Acetaminophen 500 Mg Tab) 1,000 mg PO Q8H PRN PRN Reason: Pain Stop: 12/28/24 14:25 Last Admin: 11/30/24 06:27 Dose: 1,000 mg Amitriptyline HCl (Amitriptyline Hcl 25 Mg Tab) 75 mg PO HS TIN Stop: 12/28/24 20:59 Last Admin: 11/29/24 21:54 Dose: 75 mg Chlordiazepoxide HCl (Chlordiazepoxide Hcl 10 Mg Cap) 10 mg PO Q12H TIN Stop: 12/01/24 14:31 Last Admin: 11/29/24 22:09 Dose: 10 mg Chlordiazepoxide HCl (Chlordiazepoxide Hcl 10 Mg Cap) 10 mg PO Q8H TIN Stop: 11/30/24 14:31 Last Admin: 11/30/24 06:18 Dose: 10 mg Duloxetine HCl (Duloxetine Hcl 30 Mg Cap) 30 mg PO DAILY TIN Stop: 12/29/24 08:59 Last Admin: 11/30/24 08:39 Dose: 30 mg Enoxaparin Sodium (Enoxaparin Inj 40 Mg/0.4 Ml Syr) 40 mg SQ HS TIN Stop: 12/27/24 22:59 Last Admin: 11/29/24 21:52 Dose: 40 mg Folic Acid (Folic Acid 1 Mg Tab) 1 mg PO QAM TIN Stop: 12/28/24 08:59 Last Admin: 11/30/24 08:38 Dose: 1 mg Gabapentin (Gabapentin 400 Mg Cap) 400 mg PO TID TIN Stop: 12/27/24 22:44 Last Admin: 11/30/24 08:38 Dose: 400 mg Ketorolac Tromethamine (Ketorolac Tromethamine 15 Mg/Ml Vial) 15 mg IV Q6H PRN PRN Reason: Pain Stop: 12/03/24 17:02 Last Admin: 11/30/24 09:11 Dose: 15 mg Lidocaine (Lidocaine 5% 1 Patch) 1 patch TD QAM [facility] Stop: 12/28/24 17:14 Last Admin: 11/30/24 08:39 Dose: Not Given Lorazepam (Lorazepam 2 Mg/1 Ml Vial) 1 mg IV UD PRN; Protocol PRN Reason: EtOH Withdrawal AWSS Score 6,7 Stop: 12/27/24 22:44 Last Admin: 11/28/24 03:16 Dose: 1 mg Lorazepam (Lorazepam 2 Mg/1 Ml Vial) 2 mg IV UD PRN; Protocol PRN Reason: EtOH Withdrawal AWSS Score 8,9 Stop: 12/27/24 22:44 Lorazepam (Lorazepam 2 Mg/1 Ml Vial) 3 mg IV ONCE PRN; Protocol PRN Reason: EtOH Withdrawal AWSS Score 10+ Miscellaneous (Remove Lidoderm Patch) 1 each N/A DAILY@2100 [facility] Stop: 12/28/24 22:59 Last Admin: 11/29/24 21:56 Dose: 1 each Multivitamins (Multivitamin Tab) 1 tab PO QAM [facility] Stop: 12/28/24 08:59 Last Admin: 11/30/24 08:38 Dose: 1 tab Ondansetron HCl (Ondansetron Inj 2 Mg/Ml 2 Ml Vial) 4 mg IV Q6H PRN PRN Reason: Nausea Stop: 12/27/24 22:44 Last Admin: 11/28/24 00:29 Dose: 4 mg Polyethylene Glycol (Polyethylene (Miralax) 17 Gm Pack) 17 gm PO DAILY PRN PRN Reason: Constipation Stop: 12/28/24 14:32 Thiamine HCl (Thiamine Hcl 100 Mg Tab) 100 mg PO QAM [facility] Stop: 12/28/24 08:59 Last Admin: 11/30/24 08:38 Dose: 100 mg Topiramate (Topiramate 100 Mg Tab) 100 mg PO TID [facility] Stop: 12/27/24 22:44 Last Admin: 11/30/24 08:37 Dose: 100 mg (1) Alcohol intoxication Complication of substance-induced condition: with unspecified complication Qualified Code(s): F10.929 - Alcohol use, unspecified with intoxication, unspecified
--- NOTE | 2024-11-30 12:29 | Psychiatric Consultation ---
Date of Consultation November 30, 2024 Impression / Recommendations Impression Diagnostically consistent with alcohol use disorder as well as unspecified depression and anxiety likely a combination of substance-induced as well as MDD and DOLLY and PTSD and ADHD by history. Acute risk of self-harm is low given denial of SI and no longer with intoxication. Chronic risk of self-harm and harm to others is slightly increased due to substance use with substance use treatment being the most significant modifiable risk factor to reduce acute and chronic risk. She is considering residential treatment, which was encouraged. Overall, I spent a total of 45 minutes with this case including review of chart records, review of labwork, direct evaluation of the patient at bedside, counseling the patient, discussion of the patient with the Nurse and with the hospitalist provider, discussion with the psychiatric liason during clinical rounds and documentation in the electronic health record. (1) Alcohol use disorder: (2) Anxiety and depression: Plan -No acute safety concerns -Has outpatient psychiatry and therapy -Continue AWSS as well as thiamine and folic giuliana]. -Would discontinue ativan on discharge given alcohol use disorder and risk for potential fatal respiratory suppression with concurrent use -Encourage outpatient consideration for revisiting trial of naltrexone, she reports past side effects, could consider starting at 12.5mg daily or 25mg daily with a meal to reduce this risk. 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 psychiatry consulted for "alcohol use, ADHD, anxiety, depression" Chief Complaint "I'm just getting vitamins". History of Present Illness Emma presented after recent relapse of alcohol use. She has outpatient psychiatry and therapy [email or web address], has been crosstapering from Cymbalta to sertraline. She denies SI, but deals with depression. Reports significant anxiety, including today even though she appears quite sedated from ativan per withdrawal protocol. She expresses frustration with not getting all of her home medications including gabapentin at home dose and flexeril and high dose Vistaril. Explained rationale for gabapentin instead scheduled as per withdrawal protocol and ativan per protocol. She reports previous trial of Vivitrol and naltrexone but stopped due to side effects, she could not recall what these were. Previous residential substance use treatment, 4 times, last a few months ago in [place] which she found a positive experience. She is considering returning but doesn't like that they'd make her stop gabapentin and ativan if she went there. Allergies Allergy/AdvReac Type Severity Reaction Status Date / Time nickel Allergy Rash Verified 01/06/24 16:22 Home Medications Medication Instructions Recorded Confirmed Type amitriptyline 50 mg tablet 125 mg PO HS 11/27/24 11/27/24 History duloxetine 60 mg capsule,delayed 60 mg PO DAILY 11/27/24 11/27/24 History release gabapentin 400 mg capsule 400 mg PO TID 11/27/24 11/27/24 History hydroxyzine pamoate 100 mg capsule 100 mg PO QID PRN Anxiety 11/27/24 11/27/24 History lorazepam 1 mg tablet 1 mg PO TID PRN Anxiety 11/27/24 11/27/24 History topiramate 100 mg tablet 100 mg PO TID 11/27/24 11/27/24 History torsemide 10 mg tablet 10 mg PO DAILY 11/27/24 11/27/24 History Patient History Medical History Tobacco use disorder Intractable nausea and vomiting Depression Anxiety Surgical History H/O wisdom tooth extraction Family History Aunt Breast cancer, Onset Age: 65 paternal Asthma maternal Grandfather (Paternal) Prostate cancer Aunt Allergies maternal Family/Other Allergies cousins Asthma cousins Other No family history of adverse response to anesthesia No family history of bleeding disorder Denies family history of Ovarian cancer Colorectal cancer Social History Smoking Status: Current every day smoker Tobacco Type: Cigarettes Age Started Using Tobacco: 20; packs per day: 0.5; Cigarettes Per Day: 4; Second Hand Exposure: No; Do You Dip or Chew Tobacco: No; Hx Alcohol Use: Yes Alcohol type: hard liquor Hx Substance Use: No Preferred Language: French 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 Ability: Effective 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 Beliefs That Will Affect Care: None marital status: Single Current Living Situation: Alone Feels Safe at Home: Yes Safety Concerns: Feels Safe At This Time Assistive Devices: None Physical Exam Vital Signs (Past 24 Hours): Last Vital Signs Temp 36.2 C L 11/30/24 11:07 Pulse 83 11/30/24 11:07 Resp 20 11/30/24 11:07 BP 92/62 L 11/30/24 11:07 Pulse Ox 100 11/30/24 11:07 O2 Del Method Room Air 11/30/24 11:07 Results & Data (PSY) Medications Administered Acetaminophen (Acetaminophen 500 Mg Tab) 1,000 mg PO Q8H PRN PRN Reason: Pain Stop: 12/28/24 14:25 Last Admin: 11/30/24 06:27 Dose: 1,000 mg Documented By: Admin: 11/29/24 15:40 Dose: 1,000 mg Documented By: Admin: 11/29/24 06:23 Dose: 1,000 mg Documented By: Admin: 11/28/24 20:11 Dose: 1,000 mg Documented By: DEMETRIUS Amitriptyline HCl (Amitriptyline Hcl 25 Mg Tab) 75 mg PO HS TIN Stop: 12/28/24 20:59 Last Admin: 11/29/24 21:54 Dose: 75 mg Documented By: Admin: 11/28/24 20:11 Dose: 75 mg Documented By: DEMETRIUS Chlordiazepoxide HCl (Chlordiazepoxide Hcl 10 Mg Cap) 10 mg PO Q12H TIN Stop: 12/01/24 14:31 Last Admin: 11/29/24 22:09 Dose: 10 mg Documented By: OSVALDO Chlordiazepoxide HCl (Chlordiazepoxide Hcl 10 Mg Cap) 10 mg PO Q8H TIN Stop: 11/30/24 14:31 Last Admin: 11/30/24 06:18 Dose: 10 mg Documented By: Admin: 11/29/24 22:13 Dose: 10 mg Documented By: OSVALDO Duloxetine HCl (Duloxetine Hcl 30 Mg Cap) 30 mg PO DAILY TIN Stop: 12/29/24 08:59 Last Admin: 11/30/24 08:39 Dose: 30 mg Documented By: Admin: 11/29/24 09:08 Dose: 30 mg Documented By: MARY KAY Co-signed By: AM Enoxaparin Sodium (Enoxaparin Inj 40 Mg/0.4 Ml Syr) 40 mg SQ HS TIN Stop: 12/27/24 22:59 Last Admin: 11/29/24 21:52 Dose: 40 mg Documented By: Admin: 11/28/24 20:12 Dose: 40 mg Documented By: Admin: 11/28/24 00:12 Dose: 40 mg Documented By: DEMETRIUS Folic Acid (Folic Acid 1 Mg Tab) 1 mg PO QAM TIN Stop: 12/28/24 08:59 Last Admin: 11/30/24 08:38 Dose: 1 mg Documented By: Admin: 11/29/24 09:08 Dose: 1 mg Documented By: MARY KAY Co-signed By: NAHOMY Admin: 11/28/24 08:55 Dose: 1 mg Documented By: HAILEY Gabapentin (Gabapentin 400 Mg Cap) 400 mg PO TID TIN Stop: 12/27/24 22:44 Last Admin: 11/30/24 08:38 Dose: 400 mg Documented By: Admin: 11/29/24 21:53 Dose: 400 mg Documented By: Admin: 11/29/24 15:37 Dose: 400 mg Documented By: Admin: 11/29/24 09:08 Dose: 400 mg Documented By: MARY KAY Co-signed By: NAHOMY Admin: 11/28/24 20:11 Dose: 400 mg Documented By: Admin: 11/28/24 13:46 Dose: 400 mg Documented By: Admin: 11/28/24 08:55 Dose: 400 mg Documented By: Admin: 11/28/24 00:11 Dose: 400 mg Documented By: DEMETRIUS Ketorolac Tromethamine (Ketorolac Tromethamine 15 Mg/Ml Vial) 15 mg IV Q6H PRN PRN Reason: Pain Stop: 12/03/24 17:02 Last Admin: 11/30/24 09:11 Dose: 15 mg Documented By: Admin: 11/29/24 22:09 Dose: 15 mg Documented By: Admin: 11/29/24 00:27 Dose: 15 mg Documented By: Admin: 11/28/24 17:43 Dose: 15 mg Documented By: HAILEY Lidocaine (Lidocaine 5% 1 Patch) 1 patch TD QAM [facility] Stop: 12/28/24 17:14 Last Admin: 11/30/24 08:39 Dose: Not Given Documented By: Admin: 11/29/24 09:26 Dose: Not Given Documented By: MARY KAY Admin: 11/28/24 17:44 Dose: 1 patch Documented By: HAILEY Lorazepam (Lorazepam 2 Mg/1 Ml Vial) 1 mg IV UD PRN; Protocol PRN Reason: EtOH Withdrawal AWSS Score 6,7 Stop: 12/27/24 22:44 Last Admin: 11/28/24 03:16 Dose: 1 mg Documented By: DEMETRIUS Miscellaneous (Remove Lidoderm Patch) 1 each N/A DAILY@2100 [facility] Stop: 12/28/24 22:59 Last Admin: 11/29/24 21:56 Dose: 1 each Documented By: Admin: 11/28/24 22:24 Dose: 1 each Documented By: DEMETRIUS Multivitamins (Multivitamin Tab) 1 tab PO [facility] Stop: 12/28/24 08:59 Last Admin: 11/30/24 08:38 Dose: 1 tab Documented By: Admin: 11/29/24 09:11 Dose: 1 tab Documented By: MARY KAY Co-signed By: NAHOMY Admin: 11/28/24 08:55 Dose: 1 tab Documented By: HAILEY Ondansetron HCl (Ondansetron Inj 2 Mg/Ml 2 Ml Vial) 4 mg IV Q6H PRN PRN Reason: Nausea Stop: 12/27/24 22:44 Last Admin: 11/28/24 00:29 Dose: 4 mg Documented By: DEMETRIUS Thiamine HCl (Thiamine Hcl 100 Mg Tab) [facility] Stop: 12/28/24 08:59 Last Admin: 11/30/24 08:38 Dose: 100 mg Documented By: Admin: 11/29/24 09:10 Dose: 100 mg Documented By: MARY KAY Co-signed By: NAHOMY Admin: 11/28/24 08:55 Dose: 100 mg Documented By: HAILEY Topiramate (Topiramate 100 Mg Tab) 100 mg PO TID [facility] Stop: 12/27/24 22:44 Last Admin: 11/30/24 08:37 Dose: 100 mg Documented By: Admin: 11/29/24 21:55 Dose: 100 mg Documented By: Admin: 11/29/24 15:37 Dose: 100 mg Documented By: Admin: 11/29/24 09:10 Dose: 100 mg Documented By: MARY KAY Co-signed By: NAHOMY Admin: 11/28/24 20:11 Dose: 100 mg Documented By: Admin: 11/28/24 13:46 Dose: 100 mg Documented By: Admin: 11/28/24 08:55 Dose: 100 mg Documented By: Admin: 11/28/24 00:11 Dose: 100 mg Documented By: DEMETRIUS Coding Level of Care Code 57242 IN/OBS CONSULT LVL 3,45M Diagnoses Alcohol use disorder F10.90 Anxiety and depression F41.9; F32.9
[2024-11-30] MEDS: hydrOXYzine HCl 25 MG TAB PO STA (13:42)
[2024-11-30] MEDS: SODIUM CHLORIDE 0.9% 500 ML IV ONE (13:43)
[2024-11-30] MEDS: PANTOprazole 40 MG TAB PO SCH (13:43)
[2024-11-30 20:19] VITALS: RESP 18
[2024-11-30] MEDS ORDERED: hydrOXYzine HCl 25 MG TAB PO PRN (23:50)
[2024-12-01] MEDS: LACTATED RINGER'S 1,000 ML IV ONE (00:38)
[2024-12-01] MEDS: hydrOXYzine HCl 25 MG TAB PO STA (00:40)
[2024-12-01 07:44] VITALS: BP 92/57; TEMP 97.5; O2SAT 100
[2024-12-01 07:46] LABS: Hematocrit (blood only) 33.1 % (37.0-47.0); Hemoglobin 10.6 g/dl (12.0-16.0); Mean Corpuscular Hemoglobin 30.9 pg (25.0-34.0); Mean Corpuscular Volume 96.5 fL (80.0-100.0); Mean Platelet Volume 10.3 fL (9.4-12.4); Platelet Count 141 K/uL (130-400); RDW Coefficient of Variation 12.7 % (11.5-14.5); RDW Standard Deviation 44.9 fL (36.4-46.3); Red Blood Count 3.43 M/uL (4.20-5.40); White Blood Count 4.62 K/ul (4.8-10.8)
[2024-12-01 07:59] LABS: BUN Creatinine Ratio 19.6 (10-20); Calcium 8.5 mg/dl (8.6-10.3); Creatinine Clr Calc Pharmacy 68.8 ml/min; Magnesium 1.7 mg/dl (1.7-2.4)
[2024-12-01] MEDS: DICLOFENAC SODIUM 75 MG TABCR PO PRN (11:30)
[2024-12-01] MEDS: LORazepam 1 MG TAB PO PRN (11:30)
[2024-12-01] MEDS: BACLOFEN 10 MG TAB PO PRN (13:31)
--- NOTE | 2024-12-01 13:40 | Discharge Summary ---
Discharge Summary Date of Service December 01, 2024 Principal Dx & Hospital Course #1 = Principal Diagnosis (1) Alcohol intoxication: (2) Alcohol withdrawal: (3) Alcohol use disorder: (4) Anxiety and depression: (5) ADD (attention deficit disorder): (6) PTSD (post-traumatic stress disorder): Plan Patient presented to the emergency room with acute alcohol intoxication and high risk of withdrawal. Patient was admitted to the hospital. Placed on alcohol withdrawal protocol. Her symptoms well-managed. Patient has chronic back pain and is on multiple various medications for this including Lidoderm patch and anti-inflammatories. Patient has a lot of anxiety and depression that is contributing to her alcohol misuse. Psychiatry consultation was obtained. Did not meet criteria for inpatient behavioral health unit recommended continuing her medications and outpatient counseling. On the day of discharge patient was up and ambulatory. Added muscle relaxers to her management of her chronic back pain. Patient has several bottles of naltrexone at home. Is willing to give that a try again. She can titrate that up slowly's for better tolerance. Encouraged to follow-up with her counseling and support groups. And follow-up with her outpatient providers for chronic medical issues. 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 Patient states she relapsed and started drinking heavily since last few days. And she was not feeling well. She was feeling very anxious. Very restless. Very dizzy in the head. Has abdominal discomfort and some back pain. Denies any fevers. No runny nose or sore throat. No cough. No chest pain or shortness of breath. Not eating much. Did not move bowels for several days because not eating. Micturating okay. Parents in the room. Mother does not want patient to be on gabapentin and other psych medications for long-term. Patient want to continue home meds. Past medical history. As mentioned above Past surgical history. Dental surgery. Left ultrasound-guided breast biopsy Social history. Smoked 0.5 pack a day for 20 years. History of alcoholism in the past. Currently drinking again. No drug use. Family history. Father had alcoholism. A-fib. Paternal cousin had breast cancer. Paternal grandfather had prostate cancer. Admission Exam Per Admitting Provider See H&P Discharge Exam Constitutional: Alert HEENT: Mucous membranes moist. Lungs: Clear to auscultation, decreased, no wheezes rales or rhonchi CV: S1-S2, regular Abdomen: Soft, nontender, nondistended Extremities: No significant edema Neuro: No focal deficits Psych: Cooperative, normal mood, depressed affect Updated Medication List Medication Instructions Recorded Confirmed Type amitriptyline 50 mg tablet 125 mg PO HS 11/27/24 11/27/24 History duloxetine 60 mg capsule,delayed 60 mg PO DAILY 11/27/24 11/27/24 History release gabapentin 400 mg capsule 400 mg PO TID 11/27/24 11/27/24 History hydroxyzine pamoate 100 mg capsule 100 mg PO QID PRN Anxiety 11/27/24 11/27/24 History lorazepam 1 mg tablet 1 mg PO TID PRN Anxiety 11/27/24 11/27/24 History topiramate 100 mg tablet 100 mg PO TID 11/27/24 11/27/24 History torsemide 10 mg tablet 10 mg PO DAILY 11/27/24 11/27/24 History baclofen 10 mg tablet 10 mg PO TID PRN muscle spasm #30 12/01/24 Rx tabs diclofenac sodium 75 mg 75 mg PO BID PRN back pain #20 tabs 12/01/24 Rx tablet,delayed release naltrexone 50 mg tablet See Rx Instructions .Route 12/01/24 Rx .COMPLEX #30 tabs pantoprazole 40 mg tablet,delayed 40 mg PO QAM #30 tabs 12/01/24 Rx release Hospital Stay Data Consultations 11/27/24 19:13 ED Decision to Admit Stat 11/29/24 15:09 Consult Psychiatry Routine Diagnostic Imagining Performed Reviewed imaging, laboratory and diagnostic studies. Pertinent findings as below. WBCs 4.6 Hemoglobin 10.6 Platelets of 141 Electrolytes stable Creatinine 0.92 Pending Results Patient Have Any Pending Studies at Discharge: No Discharge Instructions Given to Patient (Per Discharging Provider) Strongly recommend you stop all beer and alcohol Strongly recommend you continue with counseling and support groups Total Time Total Time Spent Total Time Spent (In Minutes): 38
[2024-12-01 14:19] VITALS: PULSE 71
--- NOTE | 2024-12-03 15:35 | Coding Query ---
CODING QUERY To promote full compliance with coding requirements relating to patient care, provider participation is requested in all cases of granite polisher machine uncertainty. Please assist us with the question(s) below: Coding Question(s): Pt adm with Alcohol dependence with withdrawl and abdominal pain. Please document, if known or suspected , the etiology of the abdominal pain. (Lipase negative) Thanks for your help. Gilberto Winslow [facility] Physician's Response(s): Suspect alcohol gastritis Principal Diagnosis: "that condition established after study, to be chiefly responsible for occasioning the admission of the patient to the hospital for care." Co-Existing Principal Diagnosis: "when two or more diagnoses equally meet the criteria for principal diagnosis as determined by the circumstances of admission, diagnostic work up, and/or therapy provided, and the Alphabetic Index, Tabular List, or another coding guideline does not provide sequencing direction, any one of the diagnoses may be sequenced first." "When the physician has documented what appears to be a current diagnosis in the body of the record, but has not included the diagnosis in the final diagnostic statement, the physician should be asked whether the diagnosis should be added." (Source Coding [facility] 2 QTR90. p3-4) DONNELL
== END 2024-12-01 15:43 | disposition home or self-care (01) | DRG 897 ==
LOC: ED 17:02 → EDINP 20:21 → SUATTDRO 20:21 → 2S 22:45

== ENCOUNTER 2025-01-10 17:48 | Inpatient (IN) ==
--- NOTE | 2025-01-10 18:26 | Emergency Department Note ---
Impression & Plan Alcohol intoxication, Alcohol abuse, Vomiting, Acute dehydration ED Provider Note NAME: ADIA NAVARRO AGE: 44 SEX: F : 1980 ARRIVES VIA: Walk-In INFORMANT: [Patient][mother] ED PROVIDER(S): [Konrad Corbin MD] CHIEF COMPLAINT: Detox request HISTORY OF PRESENT ILLNESS: The patient is a 44-year-old female who has a history of alcoholism. She drinks vodka. Her last drink was today. Today, she made a comment that she did not want to live anymore. She was talking with her mother. She asked to come to the hospital for help. The patient does feel drunk currently. She has had some nausea and vomiting. She has not fallen or suffered trauma. PMHx/PSHx/Social Hx: See Below PHYSICAL EXAM: GENERAL: Patient is in no acute distress. HEENT: No acute trauma, normocephalic atraumatic, mucous membranes moist, no nasal congestion. NECK: No stridor, no adenopathy, no meningismus, trachea is midline. LUNGS: Clear to auscultation bilaterally, no wheeze, no rhonchi, breath sounds equal. HEART: Mildly tachycardic, regular rhythm, no murmurs. ABDOMEN: Soft, nontender, no peritonitis. EXTREMITIES: No cyanosis, full range of motion of all the joints without pain or difficulty. NEUROLOGIC: Slurring her words, appears intoxicated, no acute motor or sensory deficits, no focal weakness. SKIN: No jaundice, no diaphoresis. DIFFERENTIAL DIAGNOSIS: Alcohol intoxication, alcohol withdrawal, dehydration, electrolyte balance, suicidality, among others. EMERGENCY DEPARTMENT PROCEDURES: MEDICAL DECISION MAKING: There is no leukocytosis or concerning anemia. There is a normal platelet count. No renal failure. There was an anion gap consistent with alcohol use today. AST somewhat elevated, the remaining liver enzymes were unremarkable. Lipase slightly high but not high enough to diagnose pancreatitis. The patient appeared to be in a euthyroid state. testing was negative. Urinalysis suggest dehydration, no infection. Aspirin, Tylenol levels were undetectable. Urine tox was negative. Alcohol level was quite high at over 470. COVID test was negative. On exam, the patient did appear intoxicated clinically. The patient was given IV saline for hydration. She received IV thiamine, IV Phenergan, IV Zofran and IV folic acid. With the above interventions, the patient appears improved, she is resting, her vital signs have improved. The patient is acutely intoxicated with alcohol and requesting detox. This will take some time, admission is warranted. I suspect she will show signs of withdrawal as her alcohol level begins to clear. I spoke with the patient, her mother, I spoke with case management. The on-call hospitalist was consulted. Prior/Outside records/notes reviewed: None Imaging/x-ray results per my interpretation: Chronic Medical/Social conditions affecting care: History of alcoholism Care/Management discussed with: Case management, the on-call hospitalist. Level of care consideration(s): After review of the information above and other included data: --I believe the patient requires escalation of care to admission Critical Care Note: I have personally spent 45 minutes of critical care time in the direct management of this patient. This includes bedside care, interpretation of diagnostic studies, and testing, discussion with consultants, patient, and family members, and other required patient management activities. This 45 minutes is in excess of all separately billable procedures. DISPOSITION: Admission Past Med/Surg History Problem List (Updated 01/10/25 @ 22:20 by Konrad Corbin MD) Acute dehydration (Acute) Vomiting (Acute) Alcohol abuse (Acute) Alcohol intoxication (Acute) PTSD (post-traumatic stress disorder) Alcohol use disorder Back pain (Acute) Alcohol intoxication (Acute) ZUHAIR (acute kidney injury) (Acute) Acute dehydration (Acute) Nausea & vomiting (Acute) History of alcohol dependence (Acute) Acute alcoholic pancreatitis (Acute) Pancreatitis without necrosis or infection Vomiting (Acute) ZUHAIR (acute kidney injury) (Acute) Alcohol withdrawal (Acute) Alcohol abuse (Acute) Hypomagnesemia (Acute) Tachycardia (Acute) Alcohol withdrawal Alcoholic ketoacidosis (Acute) Contusion (Acute) Alcoholic intoxication (Acute) Alcohol abuse (Acute) Weakness (Acute) Hypomagnesemia (Acute) Hallucinations (Acute) Alcohol abuse (Acute) S/P nasal surgery septoplasty and rhinoplasty-both w/Dr. Castañeda Allergic rhinitis Abnormal uterine bleeding ADD (attention deficit disorder) Insomnia Restless leg Anxiety and depression (Chronic) Fatty liver (Chronic) Alcohol dependence (Chronic) Medical History Tobacco use disorder Intractable nausea and vomiting Depression Anxiety Surgical History H/O wisdom tooth extraction Family History Aunt Breast cancer, Onset Age: 65 paternal Asthma maternal Grandfather (Paternal) Prostate cancer Aunt Allergies maternal Family/Other Allergies cousins Asthma cousins Other No family history of adverse response to anesthesia No family history of bleeding disorder Denies family history of Ovarian cancer Colorectal cancer Social History Smoking Status: Unknown if ever smoked Tobacco Type: Cigarettes Age Started Using Tobacco: 20; packs per day: 0.5; Cigarettes Per Day: 4; Second Hand Exposure: No; Do You Dip or Chew Tobacco: No; Hx Alcohol Use: Yes Alcohol type: hard liquor Hx Substance Use: No Preferred Language: Vietnamese 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 Ability: Effective [employer] Leak Tester Required: No Beliefs That Will Affect Care: None marital status: Single Current Living Situation: Alone Feels Safe at Home: Yes Assistive Devices: None Allergies Allergies Allergy/AdvReac Type Severity Reaction Status Date / Time nickel Allergy Mild Rash Verified 01/10/25 20:33 Home Meds Home Medications Medication Instructions Recorded Confirmed amitriptyline 50 mg tablet 125 mg PO HS 11/27/24 01/10/25 duloxetine 60 mg capsule,delayed 60 mg PO DAILY 11/27/24 01/10/25 release gabapentin 400 mg capsule 400 mg PO TID 11/27/24 01/10/25 hydroxyzine pamoate 100 mg capsule 100 mg PO QID PRN Anxiety 11/27/24 01/10/25 lorazepam 1 mg tablet 1 mg PO DAILY PRN Anxiety 11/27/24 01/10/25 topiramate 100 mg tablet 100 mg PO TID 11/27/24 01/10/25 torsemide 10 mg tablet 10 mg PO DAILY 11/27/24 01/10/25 acetaminophen 500 mg tablet 500 mg PO Q6H PRN PAIN/FEVER 01/10/25 01/10/25 (Tylenol Extra Strength) baclofen 10 mg tablet 10 mg PO TID muscle spasm 01/10/25 01/10/25 cyclobenzaprine 10 mg tablet 10 mg PO BID PRN MUSCLE SPASMS 01/10/25 01/10/25 diclofenac sodium 75 mg 75 mg PO BID back pain 01/10/25 01/10/25 tablet,delayed release naltrexone 50 mg tablet 50 mg PO QAM 01/10/25 01/10/25 norethindrone 1 mg-ethinyl 1 tab PO DAILY 01/10/25 01/10/25 estradiol 10 mcg (24)-iron 10 mcg(2) tablet (Lo Loestrin Fe) topiramate 25 mg tablet 25 mg PO BID 01/10/25 01/10/25 Previous Rx's Medication Instructions Recorded pantoprazole 40 mg tablet,delayed 40 mg PO QAM #30 tabs 12/01/24 release Results & Data (ED) Vital Signs Vital Signs - 24 hr 01/10/25 17:54 01/10/25 18:44 01/10/25 18:44 Temperature 36.3 C L Temperature Source Temporal Artery Scan Pulse Rate 111 H Pulse Rate [Apical] 95 H Respiratory Rate 19 14 Respiratory Effort / Characteristics Non-Labored Spontaneous Respiratory Depth Normal Respiratory Pattern Regular Blood Pressure 117/88 Blood Pressure [Left Arm] 106/74 Blood Pressure Mean 97 Blood Pressure Mean [Left Arm] 84 Pulse Oximetry 96 96 97 Oxygen Delivery Method Room Air Room Air Room Air Sepsis Recent Fever Within 48 Hours No Sepsis New/Unexplained Change in Mental Status N/A Sepsis Action Taken by Nursing No Action Required 01/10/25 18:50 01/10/25 20:00 Temperature Temperature Source Pulse Rate 95 H Pulse Rate [Apical] 101 H Respiratory Rate 16 Respiratory Effort / Characteristics Non-Labored Spontaneous Respiratory Depth Respiratory Pattern Blood Pressure Blood Pressure [Left Arm] 118/83 Blood Pressure Mean Blood Pressure Mean [Left Arm] 94 Pulse Oximetry 98 Oxygen Delivery Method Room Air Sepsis Recent Fever Within 48 Hours Sepsis New/Unexplained Change in Mental Status Sepsis Action Taken by [facility] Medications Current Medication List: was personally reviewed by me Laboratory Data Attestation: I reviewed the patient's lab results. 01/10/25 18:25 01/10/25 18:25 Lab Results 01/10/25 01/10/25 01/10/25 Range/Units 18:25 19:17 20:04 WBC 8.35 (4.8-10.8) K/ul RBC 4.24 (4.20-5.40) M/uL Hgb 14.0 (12.0-16.0) g/dl Hct 40.6 (37.0-47.0) % MCV 95.8 (80.0-100.0) fL MCH 33.0 (25.0-34.0) pg MCHC 34.5 (32.0-36.0) g/dL RDW Std Deviation 58.6 H (36.4-46.3) fL RDW Coeff of Edgar 16.8 H (11.5-14.5) % Plt Count 345 (130-400) K/uL MPV 8.5 L (9.4-12.4) fL Immature Gran % (Auto) 0.5 % Neut % (Auto) 58.3 % Lymph % (Auto) 34.0 % [place] % (Auto) 5.7 % Eos % (Auto) 0.5 % Baso % (Auto) 1.0 % Neut # (Auto) 4.87 (1.40-6.50) K/uL Lymph # (Auto) 2.84 (1.20-3.40) K/uL [place] # (Auto) 0.48 (0.11-0.59) K/uL Eos # (Auto) 0.04 (0.00-0.50) K/uL Baso # (Auto) 0.08 (0.00-0.20) K/uL Immature Gran # (Auto) 0.04 (0.01-0.20) K/uL PT 9.8 (9.0-12.0) Seconds INR 0.9 (0.9-1.1) Sodium 140 (136-145) mmol/L Potassium 4.1 (3.5-5.1) mmol/L Chloride 104 (98-107) mmol/L Carbon Dioxide 15 L (21-32) mmol/L Anion Gap 21 H (3-11) BUN 9 (6-23) mg/dl Creatinine 0.72 (0.6-1.2) mg/dl Est Cr Clr Drug Dosing 81.0 ml/min eGFR 106.99 BUN/Creatinine Ratio 12.5 (10-20) Glucose 73 (70-99(Fasting)) mg/dl Calcium 8.6 (8.6-10.3) mg/dl Magnesium 1.9 (1.7-2.4) mg/dl Total Bilirubin 0.5 (0.2-1.0) mg/dl AST 113 H (13-39) U/L ALT 42 (7-52) U/L Alkaline Phosphatase 66 (34-104) U/L Total Protein 7.7 (6.0-8.3) gm/dl Albumin 5.0 (3.4-5.0) gm/dl Globulin 2.7 (2.5-4.0) gm/dl Albumin/Globulin Ratio 1.9 (0.9-2) Lipase 102 H (11-82) U/L TSH 2.191 (0.300-4.500) uIu/ml HCG, Qual Negative (Negative) Urine Color Yellow Urine Appearance Clear (Clear) Urine pH 5.5 (4.5-7.5) Ur Specific [place] 1.008 (1.000-1.030) Urine Protein Trace H (Negative) Urine Glucose (UA) Negative (Negative) Urine Ketones 2+ H (Negative) Urine Blood 3+ H (Negative) Urine Nitrite Negative (Negative) Urine Bilirubin Negative (Negative) Urine Urobilinogen Negative (Negative) Ur Leukocyte Esterase Negative (Negative) Urine WBC (Auto) 0-5 (0-5) /hpf Urine RBC (Auto) 0-2 (0-2) /hpf U Hyaline Cast (Auto) 3-5 H (0-2) /lpf U Epithel Cells (Auto) 0-2 (0-2) /hpf Urine Bacteria (Auto) None Seen (None Seen) Salicylates < 3.0 L (3.0-30) mg/dl Urine Opiates Screen Neg (Neg) Ur Methadone, Qual Neg (Neg) Urine Fentanyl Screen Neg (Neg) Acetaminophen < 3 L (10-30) ug/ml Urine Barbiturates Neg (Neg) Ur Phencyclidine (PCP) Neg (Neg) U Amphetamin/Meth Scrn Neg (Neg) MDMA (Ecstasy) Screen Neg (Neg) U Benzodiazepines Scrn Neg (Neg) Ur Cocaine Metabolite Neg (Neg) U Marijuana (THC) Screen Neg (Neg) Ethyl Alcohol mg/dL 473.5 H (<10.0) mg/dl SARS-CoV-2, RNA, NAAT NEGATIVE (NEGATIVE) Administered Medications Amitriptyline HCl (Amitriptyline Hcl 25 Mg Tab) 125 mg PO HS TIN Stop: 02/09/25 21:19 Last Admin: 01/10/25 21:57 Dose: 125 mg Documented By: ED Gabapentin (Gabapentin 400 Mg Cap) 400 mg PO TID TIN Stop: 02/09/25 21:19 Last Admin: 01/10/25 21:58 Dose: 400 mg Documented By: ED Lactated Ringer's (Lr) 1,000 mls @ 100 mls/hr IV .Q10H ONE Stop: 01/11/25 06:46 Last Admin: 01/10/25 21:36 Dose: 100 mls/hr Documented By: ED Nicotine (Nicotine 7 Mg/24 Hr Tdsy) 1 patch TD HS TIN Stop: 02/09/25 21:14 Last Admin: 01/10/25 21:58 Dose: 1 patch Documented By: ED Topiramate (Topiramate 25 Mg Tab) 25 mg PO BID TIN Stop: 02/09/25 21:19 Last Admin: 01/10/25 21:59 Dose: 25 mg Documented By: ED Discontinued Medications Folic Acid 1 mg/ Syringe 10 mls @ 5 mls/min IV NOW STA Stop: 01/10/25 18:01 Last Admin: 01/10/25 19:58 Dose: 5 mls/min Documented By: GALLO Thiamine HCl 100 mg/ Syringe 10 mls @ 2 mls/min IV NOW STA Stop: 01/10/25 18:04 Last Admin: 01/10/25 19:52 Dose: 2 mls/min Documented By: GALLO Sodium Chloride (Nss) 1,000 mls @ 999 mls/hr IV .Q1H1M ONE Stop: 01/10/25 19:00 Last Admin: 01/10/25 20:00 Dose: 999 mls/hr Documented By: GALLO Promethazine HCl (Phenergan) 6.25 mg in 50.25 mls @ 201 mls/hr IV NOW STA Stop: 01/10/25 18:24 Last Infusion: 01/10/25 19:39 Dose: Infused Documented By: Admin: 01/10/25 18:57 Dose: 201 mls/hr Documented By: ED Ondansetron HCl (Ondansetron Inj 2 Mg/Ml 2 Ml Vial) 4 mg IV NOW STA Stop: 01/10/25 18:11 Last Admin: 01/10/25 18:57 Dose: 4 mg Documented By: ED Discharge Plan Visit Data Chief Complaint: Detox Request Stated Complaint: ALCOHOL INTOXICATION, MHE, THOUGHTS OF SUICIDE ED Provider: Konrad Corbin Discharge Problem: Alcohol intoxication, Alcohol abuse, Vomiting, Acute dehydration Patient Disposition: Admitted As Inpatient Condition: Serious Forms Stand Alone Forms: [facility], Suicide Prevention Resources Prescriptions Prescriptions: No Action hydroxyzine pamoate 100 mg capsule 100 mg PO QID PRN (Reason: Anxiety) gabapentin 400 mg capsule 400 mg PO TID torsemide 10 mg tablet 10 mg PO DAILY amitriptyline 50 mg tablet 125 mg PO HS topiramate 100 mg tablet 100 mg PO TID duloxetine 60 mg capsule,delayed release(DR/EC) 60 mg PO DAILY lorazepam 1 mg tablet 1 mg PO DAILY PRN (Reason: Anxiety) pantoprazole 40 mg Tablet,Delayed Release (Dr/Ec) 40 mg PO QAM Qty: 30 0RF cyclobenzaprine [Flexeril] 10 mg Tablet 10 mg PO BID PRN (Reason: MUSCLE SPASMS) topiramate 25 mg tablet 25 mg PO BID acetaminophen [Tylenol Extra Strength] 500 mg Tablet 500 mg PO Q6H PRN (Reason: PAIN/FEVER) Lo Loestrin Fe 1 mg-10 mcg (24)/10 mcg (2) Tablet 1 tab PO DAILY naltrexone 50 mg tablet 50 mg PO QAM baclofen 10 mg tablet 10 mg PO TID diclofenac sodium 75 mg tablet,delayed release (DR/EC) 75 mg PO BID Referrals Referrals: Aj Gaston MD [Primary Care Provider] - Discharge Problem: Alcohol intoxication Qualifiers: Complication of substance-induced condition: with delirium Qualified Code(s): F .921 - Alcohol use, unspecified with intoxication delirium Vomiting Qualifiers: Vomiting type: unspecified Nausea presence: with nausea Qualified Code(s): R 11.2 - Nausea with vomiting, unspecified
[2025-01-10 18:41] LABS: Basophils # (auto) 0.08 K/uL (0.00-0.20); Eosinophils # (auto) 0.04 K/uL (0.00-0.50); Eosinophils % (auto) 0.5 %; Hematocrit (blood only) 40.6 % (37.0-47.0); Immature Granulocytes # (auto) 0.04 K/uL (0.01-0.20); Immature Granulocytes % (auto) 0.5 %; Lymphocytes # (auto) 2.84 K/uL (1.20-3.40); Mean Corpuscular Hgb Conc 34.5 g/dL (32.0-36.0); Mean Corpuscular Volume 95.8 fL (80.0-100.0); Mean Platelet Volume 8.5 fL (9.4-12.4); Monocytes # (auto) 0.48 K/uL (0.11-0.59); Monocytes % (auto) 5.7 %; Neutrophils # (auto) 4.87 K/uL (1.40-6.50); Neutrophils % (auto) 58.3 %; Platelet Count 345 K/uL (130-400); RDW Coefficient of Variation 16.8 % (11.5-14.5); RDW Standard Deviation 58.6 fL (36.4-46.3); Red Blood Count 4.24 M/uL (4.20-5.40); White Blood Count 8.35 K/ul (4.8-10.8)
[2025-01-10] MEDS: ONDANSETRON INJ 2 MG/ML 2 ML VIAL IV STA (18:57)
[2025-01-10] MEDS: PROMETHAZINE 6.25 MG/50.25 ML BAG IV STA (18:57)
[2025-01-10 19:03] LABS: Pregnancy Test, Serum Negative (Negative)
[2025-01-10 19:14] LABS: Acetaminophen < 3 ug/ml (10-30); Salicylate < 3.0 mg/dl (3.0-30)
[2025-01-10 19:26] LABS: Thyroid Stimulating Hormone 2.191 uIu/ml (0.300-4.500)
[2025-01-10 19:34] LABS: Appearance Urine Clear (Clear); Bacteria Urine Automated None Seen (None Seen); Bilirubin Urine Negative (Negative); Blood Urine 3+ (Negative); Color Urine Yellow; Epithelial Cell Urine Auto 0-2 /hpf (0-2); Glucose Urine UA Negative (Negative); Ketones Urine 2+ (Negative); Leukocyte Esterase Urine Negative (Negative); Nitrite Urine Negative (Negative); Protein Urine Trace (Negative); RBC Urine Automated 0-2 /hpf (0-2); Specific Gravity Urine 1.008 (1.000-1.030); Urobilinogen Urine Negative (Negative); WBC Urine Automated 0-5 /hpf (0-5); pH Urine 5.5 (4.5-7.5)
[2025-01-10] MEDS: THIAMINE HCL 100 MG in SYRINGE 9 ML IV STA (19:52)
[2025-01-10] MEDS: FOLIC ACID 1 MG in SYRINGE 9.8 ML IV STA (19:58)
[2025-01-10] MEDS: SODIUM CHLORIDE 0.9% 1,000 ML IV ONE (20:00)
[2025-01-10 20:02] LABS: Bilirubin,Total 0.5 mg/dl (0.2-1.0); Calcium 8.6 mg/dl (8.6-10.3); Magnesium 1.9 mg/dl (1.7-2.4); Potassium 4.1 mmol/L (3.5-5.1)
[2025-01-10 20:08] LABS: Albumin Globulin Ratio 1.9 (0.9-2); BUN Creatinine Ratio 12.5 (10-20); Globulin 2.7 gm/dl (2.5-4.0); Total Protein 7.7 gm/dl (6.0-8.3)
[2025-01-10 20:12] LABS: Amphetamines+Metham, Urine Neg (Neg); Barbiturates, Urine Neg (Neg); Benzodiazepine, Urine Neg (Neg); Cocaine, Urine Neg (Neg); Fentanyl, Urine Neg (Neg); MDMA (Ecstacy), Urine Neg (Neg); Marijuana, Urine Neg (Neg); Methadone, Urine Neg (Neg); Opiate, Urine Neg (Neg); Phencyclidine, Urine Neg (Neg)
--- NOTE | 2025-01-10 20:51 | History & Physical Report ---
Date of Service January 10, 2025 Assessment & Plan (1) Alcohol withdrawal: Plan: Alcohol abuse Alcoholic hepatitis, likely good prognosis on Madd[facility]'s DF with PT within normal limits chronic anemia, current hemoglobin better than baseline secondary to hemoconcen tration anxiety/mood disorder, at baseline ongoing vape use Admit to med/tele MELODIE S at risk protocol, DT precautions Nicotine replacement therapy DVT prophylaxis. Lovenox subcu Full code Patient mother requesting updates from providers. Ms. Jessenia Bauer, contact #[phone]. Text document was generated using [employer] voice recognition software. It may contain grammatical or spelling errors. Kindly contact undersigned for clarification of any documentation item in question. History of Present Illness Chief Complaint: Detox Primary Care Provider: Aj Gaston MD History obtained from patient, family, and records. Medical history significant for ADHD, anxiety/mood disorder, fatty liver as per records, chronic anemia (baseline hemoglobin of 10-11), chronic back pain, ongoing weight/alcohol abuse. Recent confinement last month for alcohol withdrawal. Patient discharged home. Patient started drinking again after discharge. Tonight she stated to her mother that she did not want to live like this way. Patient denies suicidal intent which mother verifies. Patient denies headache, chest pain, SOB, unusual abdominal pain. Patient brought to ER for detox. Medical Historyas above Surgical History : Hand surgery, dental surgery Family History : Alcoholism, A-fib, dementia Personal/Social history : 1 pack daily, alcohol abuse, currently unemployed Allergies Allergy/AdvReac Type Severity Reaction Status Date / Time nickel Allergy Mild Rash Verified 01/10/25 20:33 Home Medications Medication Instructions Recorded Confirmed Type amitriptyline 50 mg tablet 125 mg PO HS 11/27/24 01/10/25 History duloxetine 60 mg capsule,delayed 60 mg PO DAILY 11/27/24 01/10/25 History release gabapentin 400 mg capsule 400 mg PO TID 11/27/24 01/10/25 History hydroxyzine pamoate 100 mg capsule 100 mg PO QID PRN Anxiety 11/27/24 01/10/25 History lorazepam 1 mg tablet 1 mg PO DAILY PRN Anxiety 11/27/24 01/10/25 History topiramate 100 mg tablet 100 mg PO TID 11/27/24 01/10/25 History torsemide 10 mg tablet 10 mg PO DAILY 11/27/24 01/10/25 History pantoprazole 40 mg tablet,delayed 40 mg PO QAM #30 tabs 12/01/24 01/10/25 Rx release acetaminophen 500 mg tablet 500 mg PO Q6H PRN PAIN/FEVER 01/10/25 01/10/25 History (Tylenol Extra Strength) baclofen 10 mg tablet 10 mg PO TID muscle spasm 01/10/25 01/10/25 History cyclobenzaprine 10 mg tablet 10 mg PO BID PRN MUSCLE SPASMS 01/10/25 01/10/25 History diclofenac sodium 75 mg 75 mg PO BID back pain 01/10/25 01/10/25 History tablet,delayed release naltrexone 50 mg tablet 50 mg PO QAM 01/10/25 01/10/25 History norethindrone 1 mg-ethinyl 1 tab PO DAILY 01/10/25 01/10/25 History estradiol 10 mcg (24)-iron 10 mcg(2) tablet (Lo Loestrin Fe) topiramate 25 mg tablet 25 mg PO BID 01/10/25 01/10/25 History Past Med/Surg History Problem List (Updated 01/10/25 @ 22:20 by Konrad Corbin MD) Acute dehydration (Acute) Vomiting (Acute) Alcohol abuse (Acute) Alcohol intoxication (Acute) PTSD (post-traumatic stress disorder) Alcohol use disorder Back pain (Acute) Alcohol intoxication (Acute) ZUHAIR (acute kidney injury) (Acute) Acute dehydration (Acute) Nausea & vomiting (Acute) History of alcohol dependence (Acute) Acute alcoholic pancreatitis (Acute) Pancreatitis without necrosis or infection Vomiting (Acute) ZUHAIR (acute kidney injury) (Acute) Alcohol withdrawal (Acute) Alcohol abuse (Acute) Hypomagnesemia (Acute) Tachycardia (Acute) Alcohol withdrawal Alcoholic ketoacidosis (Acute) Contusion (Acute) Alcoholic intoxication (Acute) Alcohol abuse (Acute) Weakness (Acute) Hypomagnesemia (Acute) Hallucinations (Acute) Alcohol abuse (Acute) S/P nasal surgery septoplasty and rhinoplasty-both w/Dr. Castañeda Allergic rhinitis Abnormal uterine bleeding ADD (attention deficit disorder) Insomnia Restless leg Anxiety and depression (Chronic) Fatty liver (Chronic) Alcohol dependence (Chronic) Medical History Tobacco use disorder Intractable nausea and vomiting Depression Anxiety Surgical History H/O wisdom tooth extraction Family History Aunt Breast cancer, Onset Age: 65 paternal Asthma maternal Grandfather (Paternal) Prostate cancer Aunt Allergies maternal Family/Other Allergies cousins Asthma cousins Other No family history of adverse response to anesthesia No family history of bleeding disorder Denies family history of Ovarian cancer Colorectal cancer Social History Smoking Status: Unknown if ever smoked Tobacco Type: Cigarettes Age Started Using Tobacco: 20; packs per day: 0.5; Cigarettes Per Day: 4; Second Hand Exposure: No; Do You Dip or Chew Tobacco: No; Hx Alcohol Use: Yes Alcohol type: hard liquor Hx Substance Use: No Preferred Language: Japanese 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 Ability: Effective [employer] Gener[employer] Oiler Required: No Beliefs That Will Affect Care: None marital status: Single Current Living Situation: Alone Feels Safe at Home: Yes Assistive Devices: None Review of Systems Review of Systems: As per HPI, all other systems reviewed and negative Physical Exam Physical Exam: GENERAL: Slightly uncomfortable, no respiratory distress SKIN: Pallor, warm HEENT: Pale palpebral conjunctivae, no ptosis, dry buccal mucosa NECK : Supple, no tenderness CHEST : CTA, no tenderness HEART : Tachycardic, no obvious murmurs ABDOMEN: Some distention, nontender EXTREMITIES : No LE swelling/tenderness, no other conspicuous deformities noted NEUROLOGIC : Coherent, no facial asymmetry, gait and stance not assessed Results & Data Results & Data Vital Signs (Past 12 Hours) Vital Signs Temp Pulse Pulse Resp BP BP Pulse Ox 01/10/25 20:00 101 H 16 118/83 98 01/10/25 18:50 95 H 01/10/25 18:44 95 H 14 106/74 97 01/10/25 18:44 96 01/10/25 17:54 36.3 C L 111 H 19 117/88 96 O2 Del Method 01/10/25 20:00 Room Air 01/10/25 18:50 01/10/25 18:44 Room Air 01/10/25 18:44 Room Air 01/10/25 17:54 Room Air Laboratory Results Laboratory Results WBC 8.35 K/ul (4.8-10.8) 01/10/25 18: RBC 4.24 M/uL (4.20-5.40) 01/10/25 18: Hgb 14.0 g/dl (12.0-16.0) 01/10/25 18: Hct 40.6 % (37.0-47.0) 01/10/25: MCV 95.8 fL (80.0-100.0) 01/10/25: MCH 33.0 pg (25.0-34.0) 01/10/25: MCHC 34.5 g/dL (32.0-36.0) 01/10/25: RDW Std Deviation 58.6 fL (36.4-46.3) H 01/10/25: RDW Coeff of Edgar 16.8 % (11.5-14.5) H 01/10/25: Plt Count 345 K/uL (130-400) 01/10/25: MPV 8.5 fL (9.4-12.4) L 01/10/25: Immature Gran % (Auto) 0.5 % 01/10/25: Neut % (Auto) 58.3 % 01/10/25 18: Lymph % (Auto) 34.0 % 01/10/25 18: [place] % (Auto) 5.7 % 01/10/25: Eos % (Auto) 0.5 % 01/10/25: Baso % (Auto) 1.0 % 01/10/25: Neut # (Auto) 4.87 K/uL (1.40-6.50) 01/10/25: Lymph # (Auto) 2.84 K/uL (1.20-3.40) 01/10/25 18: [place] # (Auto) 0.48 K/uL (0.11-0.59) 01/10/25 18: Eos # (Auto) 0.04 K/uL (0.00-0.50) 01/10/25 18: Baso # (Auto) 0.08 K/uL (0.00-0.20) 04/16/25 18:25 Immature Gran # (Auto) 0.04 K/uL (0.01-0.20) 01/10/25 18:25 Sodium 140 mmol/L (136-145) 01/10/25 18:25 Potassium 4.1 mmol/L (3.5-5.1) 01/10/25 18:25 Chloride 104 mmol/L (98-107) 01/10/25 18:25 Carbon Dioxide 15 mmol/L (21-32) L 01/10/25 18: Anion Gap 21 (3-11) H 01/10/25 18:25 BUN 9 mg/dl (6-23) 01/10/25 18: Creatinine 0.72 mg/dl (0.6-1.2) 01/10/25 18: Est Cr Clr Drug Dosing 81.0 ml/min 01/10/25 18:25 eGFR 106.99 01/10/25 18:25 BUN/Creatinine Ratio 12.5 (10-20) 01/10/25 18: Glucose 73 mg/dl (70-99(Fasting)) 01/10/25 18: Calcium 8.6 mg/dl (8.6-10.3) 01/10/25 18: Magnesium 1.9 mg/dl (1.7-2.4) 01/10/25 18: Total Bilirubin 0.5 mg/dl (0.2-1.0) 01/10/25 18:25 AST 113 U/L (13-39) H 01/10/25 18:25 ALT 42 U/L (7-52) 01/10/25 18:25 Alkaline Phosphatase 66 U/L (34-104) 01/10/25 18:25 Total Protein 7.7 gm/dl (6.0-8.3) 01/10/25 18: Albumin 5.0 gm/dl (3.4-5.0) 01/10/25 18: Globulin 2.7 gm/dl (2.5-4.0) 01/10/25 18:25 Albumin/Globulin Ratio 1.9 (0.9-2) 01/10/25 18:25 Lipase 102 U/L (11-82) H 01/10/25 18:25 TSH 2.191 uIu/ml (0.300-4.500) 01/10/25 18:25 HCG, Qual Negative (Negative) 01/10/25 18:25 Urine Color Yellow 01/10/25 19:17 Urine Appearance Clear (Clear) 01/10/25 19:17 Urine pH 5.5 (4.5-7.5) 01/10/25 19:17 Ur Specific [place] 1.008 (1.000-1.030) 01/10/25 19:17 Urine Protein Trace (Negative) H 01/10/25 19:17 Urine Glucose (UA) Negative (Negative) 01/10/25 19:17 Urine Ketones 2+ (Negative) H 01/10/25 19:17 Urine Blood 3+ (Negative) H 01/10/25 19:17 Urine Nitrite Negative (Negative) 01/10/25 19:17 Urine Bilirubin Negative (Negative) 01/10/25 19:17 Urine Urobilinogen Negative (Negative) 01/10/25 19:17 Ur Leukocyte Esterase Negative (Negative) 01/10/25 19:17 Urine WBC (Auto) 0-5 /hpf (0-5) 01/10/25 19:17 Urine RBC (Auto) 0-2 /hpf (0-2) 01/10/25 19:17 U Hyaline Cast (Auto) 3-5 /lpf (0-2) H 01/10/25 19:17 U Epithel Cells (Auto) 0-2 /hpf (0-2) 01/10/25 19:17 Urine Bacteria (Auto) None Seen (None Seen) 01/10/25 19:17 Salicylates < 3.0 mg/dl (3.0-30) L 01/10/25 18:25 Urine Opiates Screen Neg (Neg) 01/10/25 19:17 Ur Methadone, Qual Neg (Neg) 01/10/25 19:17 Urine Fentanyl Screen Neg (Neg) 01/10/25 19:17 Acetaminophen < 3 ug/ml (10-30) L 01/10/25 18:25 Urine Barbiturates Neg (Neg) 01/10/25 19:17 Ur Phencyclidine (PCP) Neg (Neg) 01/10/25 19:17 U Amphetamin/Meth Scrn Neg (Neg) 01/10/25 19:17 MDMA (Ecstasy) Screen Neg (Neg) 01/10/25 19:17 U Benzodiazepines Scrn Neg (Neg) 01/10/25 19:17 Ur Cocaine Metabolite Neg (Neg) 01/10/25 19:17 U Marijuana (THC) Screen Neg (Neg) 01/10/25 19:17 Ethyl Alcohol mg/dL 473.5 mg/dl (<10.0) H 01/10/25 18:25 SARS-CoV-2, RNA, NAAT NEGATIVE (NEGATIVE) 01/10/25 20:04 (1) Alcohol withdrawal Complication of substance-induced condition: with unspecified complication Qualified Code(s): F10.939 - Alcohol use, unspecified with withdrawal, unspecified
[2025-01-10] MEDS ORDERED: PROMETHAZINE 6.25 MG/50.25 ML BAG IV PRN (21:15)
[2025-01-10 21:34] LABS: INR 0.9 (0.9-1.1); Prothrombin Time 9.8 Seconds (9.0-12.0)
[2025-01-10] MEDS: LACTATED RINGER'S 1,000 ML IV ONE (21:36)
[2025-01-10] MEDS: AMITRIPTYLINE HCL 25 MG TAB PO SCH (21:57)
[2025-01-10] MEDS: GABAPENTIN 400 MG CAP PO SCH (21:58)
[2025-01-10] MEDS: NICOTINE 7 MG/24 HR TDSY TD SCH (21:58)
[2025-01-10] MEDS: TOPIRAMATE 25 MG TAB PO SCH (21:59)
[2025-01-10] MEDS: hydrOXYzine HCl 25 MG TAB PO PRN (22:26)
[2025-01-11] MEDS: MAGNESIUM SULFATE / D5W 1 GM/100 ML BAG IV ONE (00:17)
[2025-01-11] MEDS: ACETAMINOPHEN 500 MG TAB PO PRN (00:53)
[2025-01-11] MEDS: LORazepam 2 MG/1 ML VIAL IV PRN ×2 (00:54→19:46)
[2025-01-11] MEDS ORDERED: Ativan IV Alcohol Withdrawal--Active Protocol IV PRN (01:21)
[2025-01-11] MEDS ORDERED: LORazepam 2 MG/1 ML VIAL IV PRN ×2 (01:21)
[2025-01-11] MEDS ORDERED: chlordiazePOXIDE ALCOHOL WITHDRAWL 25MG PO STA (01:24)
[2025-01-11] MEDS: chlordiazePOXIDE HCl 25 MG CAP PO SCH (02:12)
--- OUTSIDE RECORDS SUMMARY | 2025-01-11 04:50 | External Medical Summary | Summary of Care ---
Author Name Unknown Organization [facility] Address [address] [place] [address] Phone [phone] Care Team Providers Care C D Still Operator Name Role Phone Marilin MICHAELS MD, Gumaro Westfall Primary Care Provider [phone] Reason for Visit * Reason Onset Date Comments Medication Refill 01/03/2025 Encounter Details Date Type Department Care Team (Late st Contact Info) Description 01/03/2025 Refill Family Practice [facility] [address] [facility] [place] [address] Gumaro Rodriguez III, MD 200 [place] [address] Gastroesophageal reflux disease, unspecified whether esophagitis present Allergies Active Allergy Reactions Criticality Noted Date Comments Nickel Rash 06/01/2018 documented as of this encounter (statuses as of 01/04/2025) Medications Acetaminophen 500 MG Oral Tablet Take 1 Tablet by mouth every 6 hours as needed. Active Torsemide 10 MG Oral Tablet (Demadex)Indicati [...] DAYS 14 Tablet 1 09/04/20 24 Active Amitriptyline HCl 50 MG Oral Tablet (Elavil) TAKE 2.5 TABLETS BY MOUTH AT BEDTIME. 75 Tablet 3 10/26/19 25 Active Cyclobenzaprine HCl 10 MG Oral Tablet (Flexeril) TAKE 1 TABLET BY MOUTH 2 TIMES A DAY NEEDED FOR MUSCLE SPASMS. 30 Tablet 12/06/19 25 Active Naltrexone HCl 50 MG Oral Tablet (Revia) Take 1 Tablet by mouth in the morning. 12/02/19 25 Active LORazepam 1 MG Oral Tablet (Ativan)Indicatio ns:Anxiety One tablet daily as needed anxiety 10 Tablet 1 12/18/19 25 Active Diclofenac Sodium 75 MG Oral Tablet Delayed Release (Voltaren) Take 1 Tablet by mouth in the morning and 1 Tablet before bedtime. With food. 20 Tablet 1 12/14/19 25 Active Pantoprazole Sodium 40 MG Oral Tablet Delayed Release (Protonix)Indicat ions:Gastroesopha geal reflux disease, unspecified whether esophagitis present Take 1 Tablet by mouth in the morning. 90 Tablet 3 12/27/19 25 Active Lo Loestrin Fe 1 MG-10 MCG / 10 MCG Oral Tablet (Norethin-Eth Estrad-Fe Biphas)Indication s:OCP (oral contraceptive pills) initiation Take 1 Tablet by mouth in the morning. 84 Tablet 4 12/30/19 25 Active Baclofen 10 MG Oral Tablet (Lioresal) Take 1 Tablet by mouth in the morning and 1 Tablet at noon and 1 Tablet before bedtime. 30 Tablet 1 01/05/20 25 Active DULoxetine HCl 60 MG Oral Capsule Delayed Release Particles (Cymbalta) Take 1 Capsule by mouth in the morning. Do not cut, crush or chew. 30 Capsule 5 10/16/19 25 025 Discontinued Baclofen 10 MG Oral Tablet (Lioresal) Take 1 Tablet by mouth in the morning and 1 Tablet at noon and 1 Tablet before bedtime. 30 Tablet 1 12/14/19 25 025 Discontinued(Re fill) documented as of this encounter (statuses as of 01/04/2025) Active Problems Problem Noted Date Diagnosed Date Alcoholic hepatitis without ascites 10/03/2024 Other pancytopenia 10/03/2024 Alcohol-induced acute pancre atitis without infection or necrosis 10/03/2024 Attention deficit hyperactivity disorder (ADHD) 10/03/2024 Alcohol abuse, uncomplicated 10/03/2024 Major depressive disorder, recurrent episode, mo derate 11/15/2018 Depression with anxiety 10/19/2016 Malaise and fatigue 08/18/2010 Tobacco use disorder 11/02/2007 Elevated liver enzymes Migraine Insomnia documented as of this encounter (statuses as of 01/04/2025) Resolved Problems Problem Noted Date Diagnosed Date Resolved Date Hypokalemia 10/03/2024 12/11/2024 Alcohol abuse, in remission 04/24/2023 04/24/2023 Routine medical exam 08/18/2010 018 documented as of this encounter (statuses as of 01/04/2025) Immunizations Name Administration Dates Next Due Covid-19, [...] Encounter - Gumaro Rodriguez III, MD - 01/04/2025 10:15 AM EDTSigned Prescriptions: Disp Refills Baclofen 10 MG Oral Tablet (Lioresal) 30 Tab*1 Sig: Take 1 Tablet by mouth in the morning and 1 Tablet at noon and 1 Tablet before bedtime.Authorizing Provider: GUMARO RODRIGUEZ III Prescriptions: Disp Refills Pantoprazole Sodium 40 MG Oral Tablet Itsh*90 Tab*3 Sig: Take 1 Tablet by mouth in the morning.Refused By: RALPH POWELL for Refusal: Duplicate Request * Telephone Encounter - Ralph Powell [facility] - 01/03/2025 5:42 PM EDTPending Prescriptions: Disp Refills Cyclobenzaprine HCl 10 MG Oral Tablet (Fle*30 Tab*0 Sig: Take 1 Tablet by mouth 2 times a day as needed for Muscle spasms. Baclofen 10 MG Oral Tablet (Lioresal) 30 Tab*1 Sig: Take 1 Tablet by mouth in the morning and 1 Tablet at noon and 1 Tablet before bedtime. Refused Prescriptions: Disp Refil ls Pantoprazole Sodium 40 MG Oral Tablet Tish*90 Tab*3 Sig: Take 1 Tablet by mouth in the morning. Refused By: RALPH POWELL Reason for Refusal: Duplicate Request * Telephone Encounter - Ralph Powell [facility] - 01/03/2025 5:40 PM EDT [facility] is currently not authorized to approve refills for the pended medication(s) per refill protocol. Please approve if appropriate. Pending Prescriptions: Disp Refills Cyclobenzaprine HCl 10 MG Oral Tablet (Fl*30 Tab*0 Sig: Take 1 Tablet by mouth 2 times a day as needed for Muscle spasms. Baclofen 10 MG Oral Tablet (Lioresal) 30 Tab*1 Sig: Take 1 Tablet by mouth in the morning and 1 Tablet at noon and 1 Tablet before bedtime. Last Visit: 12/29/2024 (in office), 09/03/2021 (telemedicine) Next Visit: Visit date not found If no future appointments scheduled, and last appointment is greater than a year ago, please schedule patient for a follow-up appointment Last date the medication was ordered: 12/05, 12/13 Pharmacy: [id number] [facility] Is this request for a controlled substance? [...] reflexed to confirmatory testing. Patient Phone Numbers Labs: Lab Results Component [...] 12:23 PM HGBA1C 4.9 06/12/2020 12:23 PM Thank you, Ralph Powell, PharmD Clinical Pharmacist [facility] ([facility]) 01/03/25 5:42 PM [phone] documented in this encounter Plan of Treatment Health Maintenance Due Date Last Done Comments Hepatitis B Vaccine (1 of 3 - 19+ 3-dose series) 2001 HPV/Co-Test 2012 Pneumococcal Vaccine: Pediatrics (0 to 5 Years) and At-Risk Patients (6 to 18 Years and 19+ Years) (2 of 2 - PCV) 03/01/2020 03/01/2019 COVID-19 Vaccine (2 - 2023- season) 2024 09/23/2022 Mammogram 06/28/2024 06/28/2023, 06/21/2023 Cervical Cancer Screening 08/27/2024 Pap Smear 08/27/2024 08/27/2021, 07/2 01/2018 (Done elsewhere), 12/21/2014, Additional history exists Influenza Vaccine (FLU shot) (Season Ended) 2025 Depression Monitoring 10/12/2025 10/12/2024 Lipid Panel 02/24/2029 [...] as of this encounter Visit Diagnoses Diagnosis Gastroesophageal reflux disease, unspecified whether esophagitis present documented in this encounter Care Teams C D Still Operator Relationship Specialty Start Date End Date Gumaro Rodriguez III, MD [address] [place] [address] PCP - General Family Medicine 05/12/23 documented as of this encounter
--- OUTSIDE RECORDS SUMMARY | 2025-01-11 04:50 | External Medical Summary | Summary of Care ---
Author Name Unknown Organization [facility] Address [address] [place] [address] Phone [phone] Care Team Providers Care Artificial Breast Fabricator Name Role Phone Marilin MICHAELS MD, Gumaro Westfall Primary Care Provider [phone] Reason for Visit * Reason Onset Date Comments Medication Refill 12/25/2024 Encounter Details Date Type Department Care Team (Late st Contact Info) Description 12/25/[address] [facility] [address] [place] [address] Gumaro Rodriguez III, MD 200 [place] [address] Gastroesophageal reflux disease, unspecified whether esophagitis present Allergies Active Allergy Reactions Criticality Noted Date Comments Nickel Rash 06/01/2018 documented as of this encounter (statuses as of 12/26/2024) Medications Acetaminophen 500 MG Oral Tablet Take 1 Tablet by mouth every 6 hours as needed. Active Torsemide 10 MG Oral Tablet (Demadex)Indicat [...] or chew. 30 Capsule 5 5 Active Amitriptyline HCl 50 MG Oral Tablet (Elavil) TAKE 2.5 TABLETS BY MOUTH AT BEDTIME. 75 Tablet 3 5 Active Cyclobenzaprine HCl 10 MG Oral Tablet (Flexeril) TAKE 1 TABLET BY MOUTH 2 TIMES A DAY NEEDED FOR MUSCLE SPASMS. 30 Tablet 5 Active Naltrexone HCl 50 MG Oral Tablet (Revia) Take 1 Tablet by mouth in the morning. 5 Active LORazepam 1 MG Oral Tablet (Ativan)Indicati ons:Anxiety One tablet daily as needed anxiety 10 Tablet 1 5 Active Baclofen 10 MG Oral Tablet (Lioresal) Take 1 Tablet by mouth in the morning and 1 Tablet at noon and 1 Tablet before bedtime. 30 Tablet 1 5 Active Diclofenac Sodium 75 MG Oral Tablet Delayed Release (Voltaren) Take 1 Tablet by mouth in the morning and 1 Tablet before bedtime. With food. 20 Tablet 1 5 Active Pantoprazole Sodium 40 MG Oral Tablet Delayed Release (Protonix)Indica tions:Gastroesop hageal reflux disease, unspecified whether esophagitis present Take 1 Tablet by mouth in the morning. 90 Tablet 3 5 Active Pantoprazole Sodium 40 MG Oral Tablet Delayed Release (Protonix)Indica tions:Gastroesop hageal reflux disease, unspecified whether esophagitis present Take 1 Tablet by mouth in the morning. 30 Tablet 5 5 12/26/19 25 Discontinu ed(Refill) documented as of this encounter (statuses as of 12/26/2024) Active Problems Problem Noted Date Diagnosed Date [...] as of this encounter (statuses as of 12/26/2024) Resolved Problems Problem Noted Date Diagnosed Date Resolved Date Hypokalemia 10/03/2024 12/11/2024 Alcohol abuse, in remission 04/24/2023 04/24/2023 Routine medical exam 08/18/2010 018 documented as of this encounter (statuses as of 12/26/2024) Immunizations Name Administration Dates Next Due Covid-19, [...] Encounter - Gumaro Rodriguez III, MD - 12/26/2024 9:41 AM EDTSigned Prescriptions: Disp Refills Pantoprazole Sodium 40 MG Oral Tablet Tish*90 Tab*3 Sig: Take 1 Tablet by mouth in the morning.Authorizing Provider: GUMARO RODRIGUEZ III * Telephone Encounter - Janie Bush LPN - 12/25/2024 3:48 PM EDTPending Prescriptions: Disp Refills Pantoprazole Sodium 40 MG Oral Tablet Tish*90 Tab*3 Sig: Take 1 Tablet by mouth in the morning. * Telephone Encounter - Deneen Hicks OSA - 12/25/2024 3:01 PM EDT PHARMACY REQUESTING 90 DAY SUPPLY Pending Prescriptions: Disp Refills Pantoprazole Sodium 40 MG Oral Tablet Del*30 Tab*5 Sig: Take 1 Tablet by mouth in the morning. Last Visit: 12/11/2024 (in office), 09/03/2021 (telemedicine) Next Visit: Visit date not found Last date the medication was ordered: 12/14/2024 Patient Active Problem List Diagnosis Tobacco use disorder Malaise and fatigue Depression with anxiety Elevated liver enzymes Migraine Insomnia Major depressive disorder, recurrent episode, moderate (HCC) Alcoholic hepatitis without ascites Other pancytopenia (HCC) Alcohol-induced acute pancreatitis without infection or necrosis Attention deficit hyperactivity disorder (ADHD) Alcohol abuse, uncomplicated Labs: Lab Results Component Value Date/Time CREATININE - [facility] 1.0 10/16/2024 01:19 PM CREATININE - [facility] 0.9 06/12/2020 12:23 PM Lab Results Component Value Date/Time POTASSIUM - [facility] 4.1 10/16/2024 01:19 PM POTASSIUM - [facility] 5.3 (H) 06/12/2020 12:23 PM Lab Results Component Value Date/Time TSH - [facility] 1.72 04/27/2023 11:24 AM TSH - [facility] 1.02 06/12/2020 12:23 PM Lab Results Component Value Date/Time LDL CHOLESTEROL (CALCULATED) - [facility] 103 02/25/2024 03:31 PM LDL CHOLESTEROL (DIRECT MEASURE) - [facility] 99 06/12/2020 12:23 PM Lab Results Component Value Date/Time ALT - [facility] 8 (L) 10/16/2024 01:19 PM ALT - [facility] 14 06/12/2020 12:23 [...] 03/28 (Done elsewhere), 12/21/2014, Additional history exists Influenza [...] present documented in this encounter Care Teams Artificial Breast Fabricator Relationship Specialty Start Date End Date Gumaro Rodriguez III, MD [address] [place] [address] PCP - General Family Medicine 05/12/23 documented as of this encounter
--- OUTSIDE RECORDS SUMMARY | 2025-01-11 04:50 | External Medical Summary | Summary of Care ---
Author Name Unknown Organization [facility] Address [address] [place] [address] Phone [phone] Care Team Providers Care Director Of Investigations Name Role Phone Marilin MICHAELS MD, Aj Westfall Primary Care Provider [phone] Reason for Visit * Reason Comments Medication Management Encounter Details Date Type Department Care Team (Latest Contact Info) Description 12/29/2024 3:20 PM EDT Office Visit Family Practice [facility] [address] [facility] [place] [address] Kelsie Barrios MD [address] [place] [address] Depression with anxiety*; PTSD (post-traumatic stress disorder); Alcohol use disorder; OCP (oral contraceptive pills) initiation Allergies Active Allergy Reactions Criticality Noted Date Comments Nickel Rash 06/01/2018 documented as of this encounter (statuses as of 01/05/2025) Medications Acetaminophen 500 MG Oral Tablet Take [...] morning. 84 Tablet 4 12/30/19 25 Active DULoxetine HCl 60 MG Oral [...] as of this encounter (statuses as of 01/05/2025) Active Problems Problem Noted Date Diagnosed Date [...] as of this encounter (statuses as of 01/05/2025) Resolved Problems Problem Noted Date Diagnosed Date Resolved Date Hypokalemia 10/03/2024 12/11/2024 Alcohol abuse, in remission 04/24/2023 04/24/2023 Routine medical exam 08/18/2010 018 documented as of this encounter (statuses as of 01/05/2025) Immunizations Name Administration Dates Next Due Covid-19, [...] Sign Reading Time Taken Comments Blood Pressure - - Pulse 90 12/29/2024 3:28 PM EDT Temperature 36.8 °C (98.3 °F) 12/29/2024 3:28 PM ED T Respiratory Rate 15 12/29/2024 3:28 PM EDT Oxygen Saturation 99% 12/29/2024 3:28 PM EDT Inhaled Oxygen Concentration - - Weight 52.2 kg (115 lb) 12/29/2024 3:28 PM EDT Height - - Body Mass Index 19.73 10/16/2024 12:33 PM EST documented in this encounter Progress Notes * Kelsie Barrios MD - 12/29/2024 3:33 PM EDT Subjective Chief Complaint Patient presents with Medication Management HPI: Emma Nathan is a 44 year old female. Patient is unaccompanied. The following issueswere addressed today: Patient presents today discuss restarting OCPs and letter for work. She states that she has requested to take sick days due to ongoing mental health concerns and boss is asking for a statement from physician. She has a history of depression, anxiety, PTSD, and alcohol use disorder. She is on amitriptyline 125mg at bedtime. She would also like to restart OCPs. Recent liver enzymes have been normal. She has a history of alcohol hepatitis but no history of cirrhosis. Discussed risks and benefits of combined OCPs, will choose something with low estrogen. Review of Systems: See HPI Objective Pulse 90 | Temp 98.3 °F (36.8 °C) (Tympanic) | Resp 15 | Wt 115 lb (52.2 kg) | SpO2 99% | BMI 19.73 kg/m² | BSA 1.54 m² Wt Readings from Last 3 Encounters: 12/29/24 115 lb (52.2 kg) 12/11/24 120 lb 1.9 oz (54.5 kg) 10/16/24 116 lb (52.6 kg) BP Readings from Last 3 Encounters: 12/11/24 96/60 10/16/24 98/62 10/03/24 92/62 General: Well-appearing, no acute distress Neurological: Alert and oriented, no focal deficits noted Psychiatric: Appropriate mood and affect Assessment & Plan 1. Depression with anxiety 2. PTSD (post-traumatic stress disorder) 3. Alcohol use disorder Continue current medications. Letter written and provided to patient at appointment. 4. OCP (oral contraceptive pills) initiation - Lo Loestrin Fe 1 MG-10 MCG / 10 MCG Oral Tablet (Norethin-Eth Estrad-Fe Biphas); Take 1 Tablet bymouth in the morning. Dispense: 84 Tablet; Refill: 4 Return if symptoms worsen or fail to improve. This note was electronically signed by Kelsie Barrios MD documented in this encounter Nursing Notes * Sandra Barragan LPN - 12/29/2024 3:28 PM EDT Patient presents in office today to discus medications including control documented in this encounter Plan of Treatment [...] 0701/2018 (Done elsewhere), 12/21/2014, Additional history exists Influenza [...] as of this encounter Visit Diagnoses Diagnosis Depression with anxiety- Primary Dysthymic disorder PTSD (post-traumatic stress disorder) Posttraumatic stress disorder Alcohol use disorder OCP (oral contraceptive pills) initiation General counseling for prescription of oral contraceptives documented in this encounter Care Teams Director Of Investigations Relationship Specialty Start Date End Date Aj Gaston III, MD [address] [place] [address] PCP - General Family Medicine 05/12/23 documented as of this encounter"
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
--- OUTSIDE RECORDS SUMMARY | 2025-01-11 04:50 | External Medical Summary | Summary of Care ---
Author Name Unknown Organization [facility] Address [address] [place] [address] Phone [phone] Care Team Providers Care Corporate Executive Name Role Phone Marilin MICHAELS MD, Gumaro Westfall Primary Care Provider [phone] Reason for Referral * Medication Prior Authorization - Pending Review Specialty Diagnoses / Procedures Referred By Contvicki t Referred To Contact Diagnoses Gastroesophageal reflux disease, unspecified whether esophagitis present Gumaro Rodriguez III, MD [address] [place] [address] Phone: tel: fax: Referral ID Status Reason Start Date Expiration Date V isits Requested Visits Authorized [id number] Pending Review [phone] Reason for Visit * Reason Onset Date Comments Medication Refill 12/13/2024 Encounter Details Date Type Department Care Team (Late st Contact Info) Description 12/13/2024 Refill Family Practice [facility] [place] [address] [place] [address] Gumaro Rodriguez III, MD [address] [place] [address] Gastroesophageal reflux disease, unspecified whether esophagitis present* Allergies Active Allergy Reactions Criticality Noted Date Comments Nickel Rash 06/01/2018 documented as of this encounter (statuses as of 12/14/2024) Medications Acetaminophen 500 MG Oral Tablet Take [...] needed anxiety 10 Tablet 1 5 Active Cyclobenzaprine HCl 10 MG Oral Tablet (Flexeril) TAKE 1 TABLET BY MOUTH 2 TIMES A DAY NEEDED FOR MUSCLE SPASMS. 30 Tablet 5 Active Naltrexone HCl 50 MG Oral Tablet (Revia) Take 1 Tablet by mouth in the morning. 5 Active Baclofen 10 MG Oral Tablet [...] in the morning. 30 Tablet 5 5 Active Pantoprazole Sodium 40 MG Oral Tablet Delayed Release (Protonix) Take 1 Tablet by mouth in the morning. 5 12/14/19 25 Discontinu ed(Refill) documented as of this encounter (statuses as of 12/14/2024) Active Problems Problem Noted Date Diagnosed Date [...] as of this encounter (statuses as of 12/14/2024) Resolved Problems Problem Noted Date Diagnosed Date Resolved Date Hypokalemia 10/03/2024 12/11/2024 Alcohol abuse, in remission 04/24/2023 04/24/2023 Routine medical exam 08/18/2010 018 documented as of this encounter (statuses as of 12/14/2024) Immunizations Name Administration Dates Next Due Covid-19, [...] encounter Miscellaneous Notes * Telephone Encounter - Tamia Quesada CPhT - 12/14/2024 9:44 AM EDT Patients insurance would like to inform the office that PANTOPRAZOLE SOD DR 40 MG TAB is not requiring review because No review is needed, please have prescription sent to pharmacy, test claims approved. Thank you, Tamia Quesada Hvac Sales Representative [facility] 12/14/2024,9:44 AM * Telephone Encounter - Gumaro Rodriguez III, MD - 12/14/2024 9:32 AM EDTSigned Prescriptions: Disp Refills Pantoprazole Sodium 40 MG Oral Tablet Tish*30 Tab*5 Sig: Take 1 Tablet by mouth in the morning.Authorizing Provider: GUMARO RODRIGUEZ III * Telephone Encounter - Gumaro Rodriguez III, MD - 12/14/2024 9:31 AM EDTSigned Prescriptions: Disp Refills Pantoprazole Sodium 40 MG Oral Tablet Tish*30 Tab*5 Sig: Take 1 Tablet by mouth in the morning. Authorizing Provider: GUMARO RODRIGUEZ III * Telephone Encounter - Ashley Lorenzo NA - 12/13/2024 4:51 PM EDTPending Prescriptions: Disp Refills Pantoprazole Sodium 40 MG Oral Tablet Tish*30 Tab*5 Sig: Take 1 Tablet by mouth in the morning. * Telephone Encounter - Ashli Ramesh CPhT - 12/13/2024 4:12 PM EDT Patient calling to check on status of Pantoprazole Sodium 40 MG. Caller can be reached at [phone] . Thank you, Ashli Ramesh Collection Card Clerk II [facility] ([facility]) 12/13/2024, 4:12 PM * Telephone Encounter - Barby Meadows transition mgr - 12/13/2024 1:36 PM EDT Pt calling requesting the following medication below that is listed as "Historical". The following information was provided: Medication Name: Pantoprazole Sodium 40 MG Oral Tablet Delayed Release (Protonix) Strength: 40 mg Directions: Take 1 Tablet by mouth in the morning. Preferred Quantity: 30 Previous Prescriber: not listed Preferred Pharmacy: [facility][id number] [address] [facility] Please review and approve if appropriate. Thank you, Barby Meadows Hvac Sales Representative I [facility] ([facility]) 12/13/2024,1:37 PM documented in this encounter Plan of Treatment Upcoming Encounters Date Type Department Care Team (Late st Contact Info) Description 12/15/2024 12:40 PM EDT Office Visit Family Practice [facility] [address] [facility] [place] [address] Kelsie Barrios MD [address] [facility] [place] [address] 12/27/2024 1:45 PM EDT Imaging Radiology [address] [place] [address] [...] Diagnosis Gastroesophageal reflux disease, unspecified whether esophagitis present- Primary documented in this encounter Care Teams Corporate Executive Relationship Specialty Start Date End Date Gumaro Rodriguez III, MD [address] [facility] [place] [address] PCP - General Family Medicine 05/12/23 documented as of this encounter
--- OUTSIDE RECORDS SUMMARY | 2025-01-11 04:50 | External Medical Summary | Summary of Care ---
Author Name Unknown Organization [facility] Address [address] [place] [address] Phone [phone] Care Team Providers Care Test Tech Name Role Phone Marilin MICHAELS MD, Gumaro Westfall Primary Care Provider [phone] Reason for Visit * Reason Comments eRx-Medication Refill Encounter Details Date Type Department Care Team (Late st Contact Info) Description 01/03/2025 Refill Family Practice [facility] [address] [place] [address] Gumaro Rodriguez III, MD [address] [place] [address] Allergies Active Allergy Reactions Criticality Noted Date [...] MG Oral Capsule Delayed Release Particles (Cymbalta) TAKE 1 CAPSULE BY MOUTH IN THE MORNING. DO NOT CUT, CRUSH OR CHEW. 90 Capsule 1 01/05/20 25 Active DULoxetine HCl 60 [...] - Gumaro Rodriguez III, MD - 01/04/2025 10:16 AM EDTSigned Prescriptions: Disp Refills DULoxetine HCl 60 MG Oral Capsule Delayed *90 Cap*1 Sig: TAKE 1 CAPSULE BY MOUTH IN THE MORNING. DO NOT CUT, CRUSH OR CHEW.Authorizing Provider: GUMARO RODRIGUEZ III User: ARCENIO AGUILERAsed Prescriptions: Disp Refills Cyclobenzaprine HCl 10 MG Oral Tablet (Fle*30 Tab*0 Sig: TAKE 1 TABLET BY MOUTH 2 TIMES A DAY NEEDED FOR MUSCLE SPASMS.Refused By: Lawanda RODRIGUEZ for Refusal: Unexpected request: Telephone review of med list * Telephone Encounter - Arcenio So, [facility] ED - 01/04/2025 8:54 AM EDTPending Prescriptions: Disp Refills Cyclobenzaprine HCl 10 MG Oral Tablet (Fle*30 Tab*0 Sig: TAKE 1 TABLET BY MOUTH 2 TIMES A DAY NEEDED FOR MUSCLE SPASMS. Signed Prescriptions: Disp Refills DULoxetine HCl 60 MG Oral Capsule Delayed *90 Cap*1 Sig: TAKE 1 CAPSULE BY MOUTH IN THE MORNING. DO NOT CUT, CRUSH OR CHEW. Authorizing Provider: GUMARO RODRIGUEZ III Ordering User: ARCENIO AGUILERA * Telephone Encounter - Arcenio So [facility] ED - 01/04/2025 8:54 AM EDT Pending Prescriptions: Disp Refills Cyclobenzaprine HCl 10 MG Oral Tablet (Fle*30 Tab*0 Sig: TAKE 1 TABLET BY MOUTH 2 TIMES A DAY NEEDED FOR MUSCLE SPASMS. Signed Prescriptions: Disp Refills DULoxetine HCl 60 MG Oral Capsule Delayed *90 Cap*1 Sig: TAKE 1 CAPSULE BY MOUTH IN THE MORNING. DO NOT CUT, CRUSH OR CHEW. Authorizing Provider: GUMARO RODRIGUEZ III Ordering User: ARCENIO AGUILERA 12/29/2024 (in office), 09/03/2021 (telemedicine) Visit date not found If no future appointments scheduled, and last appointment is greater than a year ago, please schedule patient for a follow-up appointment Last date the medication was ordered: 12/05/24 Pharmacy: [id number] [address] [facility] Is this request for a controlled substance?No [...] COVID-19 Vaccine (2 - season) 2024 09/23/2022 Mammogram 06/28/2024 06/28/2023, 06/21/2023 [...] filedocumented as of this encounter Care Teams Test Tech Relationship Specialty Start Date End Date Gumaro Rodriguez III, MD [address] [facility] [place] [address] PCP - General Family Medicine 05/12/23 documented as of this encounter
--- OUTSIDE RECORDS SUMMARY | 2025-01-11 04:50 | External Medical Summary | Summary of Care ---
Author Name Unknown Organization [facility] Address [address] [place] [address] Phone [phone] Care Team Providers Care Heel Breaster Name Role Phone Marilin MICHAELS MD, Gumaro Westfall Primary Care Provider [phone] Reason for Visit * Reason Onset Date Comments Medication Refill 12/13/2024 Encounter Details Date Type Department Care Team (Late st Contact Info) Description 12/13/2024 Refill Family Practice [facility] [address] [place] [address] Kelsie Barrios MD [address] [place] [address] Anxiety Allergies Active Allergy Reactions Criticality Noted Date Comments Nickel Rash 06/01/2018 documented as of this encounter (statuses as of 12/17/2024) Medications Acetaminophen 500 MG Oral Tablet Take [...] With food. 20 Tablet 1 5 Active LORazepam 1 MG Oral Tablet (Ativan)Indicat ions:Anxiety One tablet daily as needed anxiety 10 Tablet 1 5 12/14/19 25 Discontinu ed(Refill) Pantoprazole Sodium 40 MG Oral Tablet Delayed Release (Protonix) Take 1 Tablet by mouth in the morning. 5 12/14/19 25 Discontinu ed(Refill) documented as of this encounter (statuses as of 12/17/2024) Active Problems Problem Noted Date Diagnosed Date [...] as of this encounter (statuses as of 12/17/2024) Resolved Problems Problem Noted Date Diagnosed Date Resolved Date Hypokalemia 10/03/2024 12/11/2024 Alcohol abuse, in remission 04/24/2023 04/24/2023 Routine medical exam 08/18/2010 018 documented as of this encounter (statuses as of 12/17/2024) Immunizations Name Administration Dates Next Due Covid-19, [...] Encounter - Gumaro Rodriguez III, MD - 12/17/2024 8:07 AM EDTSigned Prescriptions: Disp Refills LORazepam 1 MG Oral Tablet (Ativan) 10 Tab*1 Sig: One tablet daily as needed anxietyAuthorizing Provider: GUMARO RODRIGUEZ III * Telephone Encounter - Janie Bush LPN - 12/15/2024 3:16 PM EDTPending Prescriptions: Disp Refills LORazepam 1 MG Oral Tablet (Ativan) 10 Tab*1 Sig: One tablet daily as needed anxiety * Telephone Encounter - Eneida Carrillo RN - 12/14/2024 10:54 AM EDT Left message for pt to call. Does she have enough of the med to last until appt tomorrow? If not Dr. Rodriguez will send in med to get her through until appt tomorrow. * Telephone Encounter - Gumaro Rodriguez III, MD - 12/14/2024 9:31 AM EDTPending Prescriptions: Disp Refills LORazepam 1 MG Oral Tablet (Ativan) 10 Tab*1 Sig: One tablet daily as needed anxiety * Telephone Encounter - Gumaro Rodriguez III, MD - 12/14/2024 9:30 AM EDT Has a appointment tomorrow does she need this before * Telephone Encounter - Kelsie Barrios MD - 12/14/2024 7:25 AM EDTPending Prescriptions: Disp Refills LORazepam 1 MG Oral Tablet (Ativan) 10 Tab*1 Sig: One tablet daily as needed anxiety * Telephone Encounter - Martha Corrales RPh - 12/14/2024 6:36 AM EDT Pending Prescriptions: Disp Refills LORazepam 1 MG Oral Tablet (Ativan) 10 Tab*1 Sig: One tablet daily as needed anxiety * Telephone Encounter - Martha Corrales RPh - 12/14/2024 6:35 AM EDT I have reviewed the patient’s controlled substance dispensing history in the Prescription Drug Monitoring Program in compliance with the [facility] regulations before prescribing a controlled substance. PDMP checked on 12/14/2024. Pending Prescriptions: Disp Refills LORazepam 1 MG Oral Tablet (Ativan) 10 Tab*1 Sig: One tablet daily as needed anxiety Last Visit: 12/11/2024 (in office), 09/03/2021 (telemedicine) Next Visit: 12/15/2024 Date medication was last filled: 12/01/24 Date medication is due for refill: 12/10/24 Pharmacy: [id number] [address] [facility] Is this request for a controlled substance? [...] testing. Please approve if appropriate. Thank you, Martha Corrales, PharmD Clinical Pharmacist [facility] ([facility]) [phone] 12/14/2024, 6:35 AM * Telephone Encounter - Ashley Lorenzo NA - 12/13/2024 4:49 PM EDTPending Prescriptions: Disp Refills LORazepam 1 MG Oral Tablet (Ativan) 10 Tab*1 Sig: One tablet daily as needed anxiety * Telephone Encounter - Ashli Ramesh CPhT - 12/13/2024 4:10 PM EDT Patient calling to check on status of LORazepam 1 MG. Caller can be reached at [phone] . Thank you, Ashli Ramesh Paradi Operator II [facility] ([facility]) 12/13/2024, 4:10 PM * Telephone Encounter - Barby Meadows development eng - 12/13/2024 1:36 PM EDT pt calling to check on status of Lorazepam. Caller can be reached at [phone]. Thank you, Barby Meadows Environmental Assistant I [facility] ([facility]) 12/13/2024,1:36 PM * Telephone Encounter - Bisi Mercer development eng - 12/13/2024 9:03 AM EDT Did you pend patient's preferred pharmacy and medication before forwarding?yes Pharmacy: [facility][id number] [address] [facility] Pending Prescriptions: Disp Refills LORazepam 1 MG Oral Tablet (Ativan) 10 Tab*1 Sig: One tablet daily as needed anxiety Last Visit: 12/11/2024 (in office), 09/03/2021 (telemedicine) Next Visit: 12/15/2024 If no future appointments scheduled, and last appointment is greater than a year ago, please schedule patient for a follow-up appointment Last date the medication was ordered: 11/12/2024 Is this request for a controlled substance?Yes, What was the last refill date 11/12/2024 w/ quantity 10 and dosage 1 and Urine Drug Screen was completed Urine [...] reflexed to confirmatory testing. Patient Phone Numbers eTect [phone] Labs: Lab Results Component Value Date/Time CREAT [...] Care Team (Late st Contact Info) Description 12/27/2024 1:45 PM EDT Imaging Radiology [address], [place] [address] [place] [address] Health Maintenance Due Date Last Done Comments [...] unspecified documented in this encounter Care Teams Heel Breaster Relationship Specialty Start Date End Date Gumaro Rodriguez III, MD [address] [facility] [place] [address] PCP - General Family Medicine 05/12/23 documented as of this encounter
--- OUTSIDE RECORDS SUMMARY | 2025-01-11 04:50 | External Medical Summary | Summary of Care ---
Author Name Unknown Organization [facility] Address [address] [place] [address] Phone [phone] Care Team Providers Care Silvering Applicator Name Role Phone Marilin MICHAELS MD, Gumaro Westfall Primary Care Provider [phone] Reason for Visit * Reason Onset Date Comments Medication Refill 12/13/2024 Encounter Details Date Type Department Care Team (Late st Contact Info) Description 12/13/2024 Refill Family Practice [facility] [address] [facility] [place] [address] Gumaro Rodriguez III, MD 200 [facility] [place] [address] Allergies Active Allergy Reactions Criticality Noted Date Comments Nickel Rash 06/01/2018 documented as of this encounter (statuses as of 12/13/2024) Medications Acetaminophen 500 MG Oral Tablet Take [...] With food. 20 Tablet 1 5 Active Baclofen 10 MG Oral Tablet (Lioresal) Take 1 Tablet by mouth in the morning and 1 Tablet at noon and 1 Tablet before bedtime. 5 12/14/19 25 Discontinu ed(Refill) Diclofenac Sodium 75 MG Oral Tablet Delayed Release (Voltaren) Take 1 Tablet by mouth in the morning and 1 Tablet before bedtime. 5 12/14/19 25 Discontinu ed(Refill) documented as of this encounter (statuses as of 12/13/2024) Active Problems Problem Noted Date Diagnosed Date [...] as of this encounter (statuses as of 12/13/2024) Resolved Problems Problem Noted Date Diagnosed Date Resolved Date Hypokalemia 10/03/2024 12/11/2024 Alcohol abuse, in remission 04/24/2023 04/24/2023 Routine medical exam 08/18/2010 018 documented as of this encounter (statuses as of 12/13/2024) Immunizations Name Administration Dates Next Due Covid-19, [...] Encounter - Gumaro Rodriguez III, MD - 12/13/2024 1:08 PM EDTSigned Prescriptions: Disp Refills Baclofen 10 MG Oral Tablet (Lioresal) 30 Tab*1 Sig: Take 1 Tablet by mouth in the morning and 1 Tablet at noon and 1 Tablet before bedtime.Authorizing Provider: GUMARO RODRIGUEZ III Diclofenac Sodium 75 MG Oral Tablet Delaye*20 Tab*1 Sig: Take 1 Tablet by mouth in the morning and 1 Tablet before bedtime. With food.Authorizing Provider: GUMARO RODRIGUEZ III * Telephone Encounter - Bisi Mercer, resident engineer - 12/13/2024 9:04 AM EDT Pt calling requesting the following medication below that is listed as "Historical". The following information was provided: Medication Name: Baclofen 10 MG Oral Tablet (Lioresal) Directions: Take 1 Tablet by mouth in the morning and 1 Tablet at noon and 1 Tablet before bedtime. Preferred Quantity: 30DS Previous Prescriber: Gumaro Rodriguez III, MD Preferred Pharmacy: [facility]ACY #[id number] Medication Name: Diclofenac Sodium 75 MG Oral Tablet Delayed Release (Voltaren) Directions: Take 1 Tablet by mouth in the morning and 1 Tablet before bedtime. Preferred Quantity: 30DS Previous Prescriber: Gumaro Rodriguez III, MD Preferred Pharmacy: [id number] [address] [facility] Please review and approve if appropriate. Thank you, Chris Mercer, Pipe Bending Machine Operator Silk Spotter 1 [facility] ([facility]) (Formerly Telepharmacy) 12/13/2024,9:06 AM documented in this encounter Plan of Treatment Upcoming Encounters Date Type Department Care Team (Late st Contact Info) Description 12/15/2024 12:40 PM EDT Office Visit Family Practice [facility] [address] [facility] [place] [address] Kelsie Barrios MD [address] [facility] [place] [address] 12/27/2024 1:45 PM EDT Imaging Radiology [facility]st [facility] [place] [address] [place] [phone] Health Maintenance Due Date Last Done Comments [...] filedocumented as of this encounter Care Teams Silvering Applicator Relationship Specialty Start Date End Date Gumaro Rodriguez III, MD [address] [facility] [place] [address] PCP - General Family Medicine 05/12/23 documented as of this encounter
--- OUTSIDE RECORDS SUMMARY | 2025-01-11 04:50 | External Medical Summary | Summary of Care ---
Author Name Unknown Organization [facility] Address [address] [place] [address] Phone [phone] Care Team Providers Care Plans Examiner Name Role Phone Marilin MICHAELS MD, Gumaro Westfall Primary Care Provider [phone] Reason for Referral * Medication Prior Authorization - Pending Review Specialty Diagnoses / Procedures Referred By Contvicki t Referred To Contact Diagnoses Gastroesophageal reflux disease, unspecified whether esophagitis present Gumaro Rodriguez III, MD [address] [place] [address] Phone: tel: fax: Referral ID Status Reason Start Date Expiration Date V isits Requested Visits Authorized [id number] Pending Review [phone] Reason for Visit * Reason Onset Date Comments Medication Refill 12/13/2024 Encounter Details Date Type Department Care Team (Late st Contact Info) Description 12/13/2024 Refill Family Practice [facility] [place] [address] [place] [address] Gumaro Rodriguez III, MD [address] [place] [address] Gastroesophageal reflux disease, unspecified whether esophagitis present* [...] encounter Miscellaneous Notes * Telephone Encounter - aTmia Quesada CPhT - 12/14/2024 9:44 AM EDT Patients insurance would like to inform the office that PANTOPRAZOLE SOD DR 40 MG TAB is not requiring review because No review is needed, please have prescription sent to pharmacy, test claims approved. Thank you, Tamia Quesada Loading Unit Operator Seating [facility] 12/14/2024,9:44 AM * [...] 40 MG. Caller can be reached at [phone] . Thank you, Ashli Ramesh Professor Sculpture II [facility] ([facility]) 12/13/2024, 4:12 PM * Telephone Encounter - Barby Meadows it network engineer - 12/13/2024 1:36 PM EDT Pt calling requesting the following medication below that is listed as "Historical". The following information was provided: Medication Name: Pantoprazole Sodium 40 MG Oral Tablet Delayed Release (Protonix) Strength: 40 mg Directions: Take 1 Tablet by mouth in the morning. Preferred Quantity: 30 Previous Prescriber: not listed Preferred Pharmacy: [facility][id number] [address] [facility] Please review and approve if appropriate. Thank you, Barby Meadows Loading Unit Operator Seating I [facility] ([facility]) 12/13/2024,1:37 PM documented in this encounter Plan of Treatment Upcoming Encounters Date Type Department Care Team (Late st Contact Info) Description 12/15/2024 12:40 PM EDT Office Visit Family Practice [facility] 200 [facility] [place] [address] Kelsie Barrios MD [address] [facility] [place] [address] 12/27/2024 1:45 PM EDT Imaging Radiology [address] [place] [phone] [...] Primary documented in this encounter Care Teams Plans Examiner Relationship Specialty Start Date End Date Gumaro Rodriguez III, MD [address] [place] [address] PCP - General Family Medicine 05/12/23 documented as of this encounter
--- OUTSIDE RECORDS SUMMARY | 2025-01-11 04:51 | External Medical Summary | Summary of Care ---
Author Name Unknown Organization [facility] Address [address] [place] [address] Phone [phone] Care Team Providers Care Oscillograph Technician Name Role Phone Marilin MICHAELS MD, Aj Westfall Primary Care Provider [phone] Reason for Visit * Reason Onset Date Comments Information 12/04/2024 Encounter Details Date Type Department Care Team (Late st Contact Info) Description 12/04/2024 Telephone General Internal Medicine [facility] [address] [place] [address] Aj Gaston III, MD 200 [place] [address] Information Allergies Active Allergy Reactions Criticality Noted Date Comments Nickel Rash 06/01/2018 documented as of this encounter (statuses as of 12/08/2024) Medications Acetaminophen 500 MG Oral Tablet Take [...] or chew. 30 Capsule 5 10/16/2024 Active Amitriptyline HCl 50 MG Oral Tablet (Elavil) TAKE 2.5 TABLETS BY MOUTH AT BEDTIME. 75 Tablet 3 10/26/2024 Active LORazepam 1 MG Oral Tablet (Ativan)Indicat ions:Anxiety One tablet daily as needed anxiety 10 Tablet 1 11/12/2024 Active documented as of this encounter (statuses as of 12/08/2024) Active Problems Problem Noted Date Diagnosed Date [...] as of this encounter (statuses as of 12/08/2024) Resolved Problems Problem Noted Date Diagnosed Date Resolved Date Alcohol abuse, in remission 04/24/2023 04/24/2023 Routine medical exam 08/18/2010 018 documented as of this encounter (statuses as of 12/08/2024) Immunizations Name Administration Dates Next Due Covid-19, [...] encounter Miscellaneous Notes * Telephone Encounter - Brayden Butt OSA - 12/08/2024 8:28 AM EDT Patient is scheduled 12/11/24. * Telephone Encounter - Aj Gaston III, MD - 12/05/2024 8:00 AM EDT Review updated medication list from discharge summary should be making a hospital follow-up * Telephone Encounter - Vicenta Gregg PHARM Tech - 12/04/2024 1:40 PM EDT Pt called stating that she was discharged from the hospital and asking if her pcp would like her tocontinue her medication and if so which ones,asking for a call back at [phone] Thank you, Vicenta Greggpersonal security specialist Field Human Resources Manager II [facility] 12/04/2024, 1:43 PM documented in this encounter Plan of Treatment Upcoming Encounters Date Type Department Care Team (Late st Contact Info) Description 12/11/2024 3:20 PM EDT Office Visit [facility] [address] [place] [address] Kelsie Barrios MD [address] [place] [address] 12/13/2024 3:15 PM EDT Imaging Radiology [address] [place] [phone] 12/18/2024 4:00 PM EDT Office Visit [facility] [address] [facility] [place] [address] Kelsie Barrios MD [address] [facility] [place] [address] Health Maintenance Due Date Last Done Comments [...] filedocumented as of this encounter Care Teams Oscillograph Technician Relationship Specialty Start Date End Date Aj Gaston III, MD [address] [place] [address] PCP - General Family Medicine 05/12/23 documented as of this encounter
--- OUTSIDE RECORDS SUMMARY | 2025-01-11 04:51 | External Medical Summary | Summary of Care ---
Author Name Unknown Organization [facility] Address [address] [place] [address] Phone [phone] Care Team Providers Care Tnt Line Supervisor Name Role Phone Marilin MICHAELS MD, Gumaro Westfall Primary Care Provider [phone] Reason for Visit * Reason Comments eRx-Medication Refill Encounter Details Date Type Department Care Team (Late st Contact Info) Description 12/01/2024 Refill Family Practice [facility] 200 [facility] [place] [address] Gumaro Rodriguez III, MD [address] [place] [address] Allergies Active Allergy Reactions Criticality Noted Date Comments Nickel Rash 06/01/2018 documented as of this encounter (statuses as of 12/05/2024) Medications Acetaminophen 500 MG Oral Tablet Take [...] NEEDED FOR MUSCLE SPASMS. 30 Tablet 5 12/06/19 25 Discontinued documented as of this encounter (statuses as of 12/05/2024) Active Problems Problem Noted Date Diagnosed Date [...] as of this encounter (statuses as of 12/05/2024) Resolved Problems Problem Noted Date Diagnosed Date Resolved Date Alcohol abuse, in remission 04/24/2023 04/24/2023 Routine medical exam 08/18/2010 018 documented as of this encounter (statuses as of 12/05/2024) Immunizations Name Administration Dates Next Due Covid-19, [...] Encounter - Gumaro Rodriguez III, MD - 12/05/2024 9:18 AM EDTSigned Prescriptions: Disp Refills Cyclobenzaprine HCl 10 MG Oral Tablet (Fle*30 Tab*0 Sig: TAKE 1 TABLET BY MOUTH 2 TIMES A DAY NEEDED FOR MUSCLE SPASMS.Authorizing Provider: GUMARO RODRIGUEZ III---- * Telephone Encounter - Eneida Carrillo RN - 12/05/2024 8:33 AM EDTPending Prescriptions: Disp Refills Cyclobenzaprine HCl 10 MG Oral Tablet [Pha*30 Tab*0 Sig: TAKE 1 TABLET BY MOUTH 2 TIMES A DAY NEEDED FOR MUSCLE SPASMS. * Telephone Encounter - Eneida Carrillo RN - 12/05/2024 8:32 AM EDT 10/16/2024 (in office), 09/03/2021 (telemedicine) 12/07/2024 * Telephone Encounter - Imelda Culver - 12/01/2024 7:08 PM ESTPending Prescriptions: Disp Refills Cyclobenzaprine HCl 10 MG Oral Tablet [Pha*30 Tab*0 Sig: TAKE 1TABLET BY MOUTH 2 TIMES A DAY NEEDED FOR MUSCLE SPASMS. documented in this encounter Plan of Treatment Upcoming Encounters Date Type Department Care Team (Late st Contact Info) Description 12/07/2024 10:20 AM EDT Office Visit [facility] [address] [facility] [place] [address] Gumaro Rodriguez III, MD 200 [facility] [place] [address] 12/13/2024 3:15 PM EDT Imaging Radiology [address], [place] [address] [place] [phone] 12/18/2024 4:00 PM EDT Office Visit [facility] [place] [address] [facility] [place] [address] Kelsie Barrios MD 200 [facility] [place] [address] Health Maintenance Due Date Last Done Comments [...] filedocumented as of this encounter Care Teams Tnt Line Supervisor Relationship Specialty Start Date End Date Gumaro Rodriguez III, MD [address] [place] [address] PCP - General Family Medicine 05/12/23 documented as of this encounter
--- OUTSIDE RECORDS SUMMARY | 2025-01-11 04:51 | External Medical Summary | Summary of Care ---
Author Name Unknown Organization [facility] Address [address] [place] [address] Phone [phone] Care Team Providers Care Photographic Process Attendant Name Role Phone Marilin MICHAELS MD, Gumaro Westfall Primary Care Provider [phone] Reason for Visit * Reason Comments eRx-Medication Refill Encounter Details Date Type Department Care Team (Late st Contact Info) Description 12/03/2024 Refill Family Practice [facility] 200 [place] [address] Gumaro Rodriguez III, MD [address] [place] [address] Allergies Active Allergy Reactions Criticality Noted Date [...] needed anxiety 10 Tablet 1 5 Active Gabapentin 300 MG Oral Capsule (Neurontin) TAKE 1 CAPSULE BY MOUTH THREE TIMES A DAY 90 Capsule 3 5 Active Cyclobenzaprin e HCl 10 MG [...] - Gumaro Rodriguez III, MD - 12/05/2024 9:19 AM EDTSigned Prescriptions: Disp Refills Gabapentin 300 MG Oral Capsule (Neurontin) 90 Cap*3 Sig: TAKE 1 CAPSULE BY MOUTH THREE TIMES A DAYAuthorizing Provider: GUMARO RODRIGUEZ III * Telephone Encounter - Eneida Carrillo RN - 12/05/2024 8:46 AM EDTPending Prescriptions: Disp Refills Gabapentin 300 MG Oral Capsule [Pharmacy M*90 Cap*3 Sig: TAKE 1 CAPSULE BY MOUTH THREE TIMES A DAY * Telephone Encounter - Eneida Carrillo RN - 12/05/2024 8:46 AM EDT 10/16/2024 (in office), 09/03/2021 (telemedicine) 12/07/2024 * Telephone Encounter - Imelda Culver - 12/03/2024 1:07 PM EDTPending Prescriptions: Disp Refills Gabapentin 300 MG Oral Capsule [Pharmacy M*90 Cap*3 Sig: TAKE 1CAPSULE BY MOUTH THREE TIMES A DAY documented in this encounter Plan of Treatment Upcoming Encounters Date Type Department Care Team (Late st [facility] Info) Description 12/07/2024 10:20 AM EDT Office Visit Family Practice [facility] [place] [facility] [place] [address] Gumaro Rodriguez III, MD 200 [facility] [place] [address] 12/13/2024 3:15 PM EDT Imaging Radiology [address], [place] [address] [place] [phone] 12/18/2024 4:00 PM EDT Office Visit Family Practice [facility] [place] [address] [place] [address] Kelsie Barrios MD [address] [place] [address] Health Maintenance Due Date Last Done Comments [...] filedocumented as of this encounter Care Teams Photographic Process Attendant Relationship Specialty Start Date End Date Gumaro Rodriguez III, MD [address] [place] [address] PCP - General Family Medicine 05/12/23 documented as of this encounter
--- OUTSIDE RECORDS SUMMARY | 2025-01-11 04:51 | External Medical Summary | Summary of Care ---
Author Name Unknown Organization [facility] Address [address] [place] [address] Phone [phone] Care Team Providers Care Millinery Department Manager Name Role Phone Marilin MICHAELS MD, Aj Westfall Primary Care Provider [phone] Reason for Visit * Reason Onset Date Comments Information 12/04/2024 Encounter Details Date Type Department Care Team (Late st Contact Info) Description 12/04/2024 Telephone General Internal Medicine [facility] 200 [facility] [place] [address] Aj Gaston III, MD 200 [place] [address] Information Allergies Active Allergy Reactions Criticality Noted Date Comments Nickel Rash 06/01/2018 documented as of this encounter (statuses as of 12/07/2024) Medications Acetaminophen 500 MG Oral Tablet Take [...] as of this encounter (statuses as of 12/07/2024) Active Problems Problem Noted Date Diagnosed Date [...] as of this encounter (statuses as of 12/07/2024) Resolved Problems Problem Noted Date Diagnosed Date Resolved Date Alcohol abuse, in remission 04/24/2023 04/24/2023 Routine medical exam 08/18/2010 018 documented as of this encounter (statuses as of 12/07/2024) Immunizations Name Administration Dates Next Due Covid-19, [...] hospital follow-up * Telephone Encounter - Vicenta Gregg, video game animator - 12/04/2024 1:40 PM EDT Pt called stating that she was discharged from the hospital and asking if her pcp would like her tocontinue her medication and if so which ones,asking for a call back at [phone] Thank you, Vicenta Gregg CPhT [employer] Manager II [facility] 12/04/2024, 1:43 PM documented in this encounter Plan of Treatment Upcoming Encounters Date Type Department Care Team (Late st Contact Info) Description 12/13/2024 3:15 PM EDT Imaging Radiology [address] [place] [phone] 12/18/2024 4:00 PM EDT Office Visit Family Practice [facility] 200 [facility] [place] [address] Kelsie Barrios MD 200 [facility] [place] [address] Health Maintenance Due Date Last Done Comments [...] filedocumented as of this encounter Care Teams Millinery Department Manager Relationship Specialty Start Date End Date Aj Gaston III, MD [address] [place] [address] PCP - General Family Medicine 05/12/23 documented as of this encounter
[2025-01-11 07:18] LABS: Basophils # (auto) 0.03 K/uL (0.00-0.20); Basophils % (auto) 0.5 %; Eosinophils # (auto) 0.06 K/uL (0.00-0.50); Immature Granulocytes # (auto) 0.02 K/uL (0.01-0.20); Immature Granulocytes % (auto) 0.3 %; Lymphocytes # (auto) 1.87 K/uL (1.20-3.40); Lymphocytes % (auto) 31.6 %; Mean Corpuscular Hemoglobin 32.7 pg (25.0-34.0); Mean Corpuscular Hgb Conc 34.5 g/dL (32.0-36.0); Mean Corpuscular Volume 94.8 fL (80.0-100.0); Monocytes # (auto) 0.34 K/uL (0.11-0.59); Monocytes % (auto) 5.7 %; Neutrophils % (auto) 60.9 %; Platelet Count 238 K/uL (130-400); RDW Coefficient of Variation 16.9 % (11.5-14.5); RDW Standard Deviation 58.6 fL (36.4-46.3); Red Blood Count 3.06 M/uL (4.20-5.40); White Blood Count 5.92 K/ul (4.8-10.8)
[2025-01-11 07:20] LABS: Albumin Level 3.4 gm/dl (3.4-5.0); Bilirubin,Total 0.8 mg/dl (0.2-1.0); Calcium 8.2 mg/dl (8.6-10.3); Potassium 3.9 mmol/L (3.5-5.1)
[2025-01-11 07:34] LABS: Albumin Globulin Ratio 1.6 (0.9-2); BUN Creatinine Ratio 10.6 (10-20); Creatinine Clr Calc Pharmacy 68.6 ml/min; Globulin 2.1 gm/dl (2.5-4.0); Total Protein 5.5 gm/dl (6.0-8.3)
[2025-01-11] MEDS: SODIUM CHLORIDE 0.9% 1,000 ML IV ONE (07:42)
[2025-01-11] MEDS: DICLOFENAC SODIUM 75 MG TABCR PO SCH (08:51)
[2025-01-11] MEDS: ENOXAPARIN INJ 30 MG/0.3 ML SYR SQ SCH (08:51)
[2025-01-11] MEDS ORDERED: BACLOFEN 10 MG TAB PO SCH (09:00)
[2025-01-11] MEDS ORDERED: NALTREXONE HCL 50 MG TAB PO SCH (09:00)
[2025-01-11] MEDS: MULTIVITAMIN TAB PO SCH (09:34)
[2025-01-11] MEDS: THIAMINE HCL 100 MG TAB PO SCH (09:34)
[2025-01-11] MEDS: PANTOprazole 40 MG TAB PO SCH (09:34)
[2025-01-11] MEDS: TOPIRAMATE 100 MG TAB PO SCH (09:34)
[2025-01-11] MEDS: FOLIC ACID 1 MG TAB PO SCH (09:35)
[2025-01-11] MEDS: DULoxetine HCL 60 MG CAP PO SCH (09:35)
[2025-01-11] MEDS: LORazepam 1 MG TAB PO PRN (11:22)
[2025-01-11] MEDS: BACLOFEN 10 MG TAB PO PRN (13:01)
--- NOTE | 2025-01-11 14:30 | 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 Note ---
Date of Service: January 11, 2025 Attempted to see Emma for psych consult. She was sleeping and would not awaken to verbal prompts. She is unable to participate with psychiatric interview at this time. Please see recent assessment and recommendations from psychiatry consult on 11/30/2024 for similar presentation with alcohol withdrawal and mood symptoms. -Continue to strongly recommend that she allow CM and psych liason to explore referrals for residential substance use treatment or dual diagnosis substance use/mental health treatment.
[2025-01-11] MEDS: NICOTINE 14 MG/24 HR PATCH TD SCH (14:41)
--- NOTE | 2025-01-11 14:58 | Hospitalist Progress Note ---
Date of Service January 11, 2025 Assessment & Plan (1) Alcohol intoxication: (2) Alcohol use disorder: (3) Acute dehydration: (4) Alcoholic liver disease: (5) Failed back syndrome: (6) ADD (attention deficit disorder): (7) Anxiety and depression: Plan Patient is a 44-year-old female with alcohol dependence and misuse disorder compounded by mental health diagnoses and chronic back pain. Has had multiple hospitalizations for alcohol intoxication and withdrawal. Continue supportive measures for alcohol withdrawal Psychiatry consultation, noted patient would not wake up to speak with them today. Reviewed psychiatry recommendation that patient go to inpatient alcohol rehab facility Hemoglobin has returned to baseline anemia, patient was quite hemoconcentrated due to dehydration at the time of admission Patient's hypotensive due to hypovolemia, improved with fluid resuscitation. Admission and Anticipated Discharge Date Admission Date: January 10, 2025 Subjective Patient extremely drowsy and sleepy difficult to awake upon entering the room. Throughout the day patient then continue to ask for pain medications and anxiety medications. Physical Exam Physical Exam: Constitutional: Sleeping, drowsy difficult to wake HEENT: Mucous membranes moist. Lungs: Clear to auscultation, decreased, no wheezes rales or rhonchi CV: S1-S2, regular Abdomen: Soft, nontender, nondistended Extremities: No significant edema Neuro: No focal deficits Psych: Depressed affect Results & Data Results & Data Vital Signs (Past 12 Hours) Vital Signs Temp Pulse Pulse Resp BP Pulse Ox O2 Del Method 01/11/25 11:13 36.6 C 90 18 100/67 99 Room Air 01/11/25 10:56 36.6 C 90 16 100/67 99 Room Air 01/11/25 09:04 105/73 01/11/25 07:10 36.6 C 94 H 17 88/51 L 97 Room Air 01/11/25 05:45 106 H 01/11/25 05:15 103 H 01/11/25 05:10 36.6 C 101 H 18 98/54 L 97 Room Air Diagnostic Findings Reviewed imaging, laboratory and diagnostic studies. Pertinent findings as below. Hemoglobin 10.0, baseline Platelets of 238 Electrolytes normalized LFTs improved (1) Alcohol intoxication Complication of substance-induced condition: with delirium Qualified Code(s): F10.921 - Alcohol use, unspecified with intoxication delirium
--- NOTE | 2025-01-12 04:47 | 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 Note ---
Date of Service: January 12, 2025 Patient requesting for acyclovir for recurrent oral sores as per [place]. Trino blackmon
[2025-01-12] MEDS: valACYclovir HCL 500 MG TABLET PO SCH (05:45)
[2025-01-12] MEDS ORDERED: chlordiazePOXIDE HCl 25 MG CAP PO SCH (06:00)
--- NOTE | 2025-01-12 13:24 | Psychiatric Consultation ---
Date of Consultation January 12, 2025 Impression / Recommendations Impression Diagnostically consistent with alcohol use disorder with recent relapse, depression, and anxiety likely a combination of substance-induced as well as MDD and DOLLY. Acute risk of self-harm is low given denial of SI and no longer with intoxication. Chronic risk of self-harm and harm to others is slightly increased due to substance use with substance use treatment being the most significant modifiable risk factor to reduce acute and chronic risk. They do not meet criteria for involuntary inpatient psychiatric treatment at this time, she is willing to consider voluntary dual diagnosis treatment which was recommended. She is also not willing for residential substance use treatment which was discussed as an alternative recommendation. Previous outpatient treatment has not provided sufficient support to maintain sobriety but reviewed local options including [facility], case management services. Discussed treatment options in detail including dual diagnosis inpatient psychiatric treatment program. Patient considering this option. Liaisons available to provide additional program information. Post-discharge planning includes encouragement to re-enroll in outpatient mental health services after January [address] [facility] or re-engage with [facility]. Overall, I spent a total of 60 minutes with this case including review of chart records, review of labwork, direct evaluation of the patient at bedside, counseling the patient, discussion of the patient with the Nurse and with the hospitalist provider, discussion with the psychiatric liason during clinical rounds and documentation in the electronic health record. (1) Alcohol use disorder: (2) PTSD (post-traumatic stress disorder): (3) Depression: (4) Anxiety: Plan -Psychiatric liason can review inpatient psychiatry dual diagnosis options if she is agreeable to referrals -Patient is not an imminent danger to self or others and does not meet criteria for involuntary psychiatric commitment -Continue AWSS as well as thiamine and folic acid -Consider starting naltrexone 50mg qd for alcohol use disorder or acamprosate -Continue psychiatric medications as ordered -Encourage AA involvement in addition to or if she is not willing for any other services (i.e. dual diagnosis inpt psych, residential, outpt IOP or dual diagnosis therapy) Psych History Identifying Data Emma CutlerIsaiasRosana is a 44 yo woman with a history of ADHD, anxiety/mood disorder, fatty liver as per records, chronic anemia (baseline hemoglobin of 10- 11), chronic back pain, ongoing alcohol use disorder admitted medically for complicated withdrawal. Psychiatry consulted for "alcohol addiction" . Chief Complaint "I'm having back pain". History of Present Illness Emma is known to the consult service, please see my previous consultation on 11/30/2024 for further details. Further information per admission H&P by Dr. Zavala on 01/10/2025: "Recent confinement last month for alcohol withdrawal. Patient discharged home. Patient started drinking again after discharge. Tonight she stated to her mother that she did not want to live like this way. Patient denies suicidal intent which mother verifies. Patient denies headache, chest pain, SOB, unusual abdominal pain. Patient brought to ER for detox." Seen today she presents for medical admission for alcohol withdrawal management in the context of ongoing depression, anxiety, and ongoing alcohol use. She reports consuming a 12-ounce container of vodka daily, typically drinking in the evening. This relapse occurred "weeks" ago, seemingly right after recent discharge last month. Her alcohol use appears to be impacting her occupational functioning. 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 She expresses sadness about potentially losing this job, stating she will miss it. She has a history of outpatient mental health treatment at [facility] and more recently at [facility] where she received both therapy and psychiatric care. However, she was discharged from their services recently due to missed appointments while she was hospitalized. She expresses frustration with this discharge, describing it as "horribly rude." She mentions the possibility of re- enrolling with them after after January 14. She endorses symptoms of depression and anxiety. She denies any current suicidal ideation, emphatically stating that she could never take her own life due to not wanting to do that to her family. Discusses that she saw the negative impact this can have on a family as her maternal grandmother by suicide. She denies any prior suicide attempts nor any access to lethal means. She denies hopelessness and denies anhedonia. She is currently prescribed psychiatric medications by her primary care physician. Her current medications include Cymbalta, Amitriptyline and Vistaril prn. Reports that her medications work well "they are working". Psychiatric ROS notable for depression and anxiety and past traumatic experiences. She denies any history of psychiatric hospitalizations. She has been to residential substance use treatment in the past, not interested current ly. Allergies Allergy/AdvReac Type Severity Reaction Status Date / Time nickel Allergy Mild Rash Verified 01/10/25 20:33 Home Medications Medication Instructions Recorded Confirmed Type amitriptyline 50 mg tablet 125 mg PO HS 11/27/24 01/10/25 History duloxetine 60 mg capsule,delayed 60 mg PO DAILY 11/27/24 01/10/25 History release gabapentin 400 mg capsule 400 mg PO TID 11/27/24 01/10/25 History hydroxyzine pamoate 100 mg capsule 100 mg PO QID PRN Anxiety 11/27/24 01/10/25 History lorazepam 1 mg tablet 1 mg PO DAILY PRN Anxiety 11/27/24 01/10/25 History topiramate 100 mg tablet 100 mg PO TID 11/27/24 01/10/25 History torsemide 10 mg tablet 10 mg PO DAILY 11/27/24 01/10/25 History pantoprazole 40 mg tablet,delayed 40 mg PO QAM #30 tabs 12/01/24 01/10/25 Rx release acetaminophen 500 mg tablet 500 mg PO Q6H PRN PAIN/FEVER 01/10/25 01/10/25 History (Tylenol Extra Strength) baclofen 10 mg tablet 10 mg PO TID muscle spasm 01/10/25 01/10/25 History cyclobenzaprine 10 mg tablet 10 mg PO BID PRN MUSCLE SPASMS 01/10/25 01/10/25 History diclofenac sodium 75 mg 75 mg PO BID back pain 01/10/25 01/10/25 History tablet,delayed release naltrexone 50 mg tablet 50 mg PO QAM 01/10/25 01/10/25 History norethindrone 1 mg-ethinyl 1 tab PO DAILY 01/10/25 01/10/25 History estradiol 10 mcg (24)-iron 10 mcg(2) tablet (Lo Loestrin Fe) topiramate 25 mg tablet 25 mg PO BID 01/10/25 01/10/25 History folic acid 1 mg tablet 1 mg PO QAM #30 tabs 01/12/25 Rx multivitamin with folic acid 400 1 tab PO QAM #30 tabs 01/12/25 Rx mcg tablet (Daily-Susan (with folic acid)) nicotine 7 mg/24 hr daily 1 patch transdermal QAM #14 ea 01/12/25 Rx transdermal patch thiamine HCl (vitamin B1) 100 mg 100 mg PO QAM #30 tabs 01/12/25 Rx tablet valacyclovir 500 mg tablet 500 mg PO BID 3 days #6 tabs 01/12/25 Rx Patient History Medical History Tobacco use disorder Intractable nausea and vomiting Depression Anxiety Surgical History H/O wisdom tooth extraction Family History Aunt Breast cancer, Onset Age: 65 paternal Asthma maternal Grandfather (Paternal) Prostate cancer Aunt Allergies maternal Family/Other Allergies cousins Asthma cousins Other No family history of adverse response to anesthesia No family history of bleeding disorder Denies family history of Ovarian cancer Colorectal cancer Social History Smoking Status: Current every day smoker Tobacco Type: Cigarettes Age Started Using Tobacco: 20; packs per day: 0.5; Cigarettes Per Day: 4; Second Hand Exposure: No; Do You Dip or Chew Tobacco: No; Hx Alcohol Use: Yes Alcohol type: hard liquor Hx Substance Use: No Preferred Language: [place] 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 Ability: Effective 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: No Beliefs That Will Affect Care: None marital status: Single Current Living Situation: Alone Feels Safe at Home: Yes Safety Concerns: Feels Safe At This Time Assistive Devices: None Physical Exam Psychiatric: Orientation: alert and oriented x 3 Apperance: appropriately dressed and appropriately groomed Eye Contact: + fair eye contact Motor Behavior: no abnormal motor movements Speech: normal rate/rhythm/volume of speech Affect: + constricted affect Mood: + depressed mood and + anxious mood Thought Process: linear/logical thought process Thought Content: reality based without delusions Suicidal Thoughts: denies suicidal thoughts Homicidal Thoughts: denies homicidal thoughts Hallucinations: no auditory hallucinations and no visual hallucinations Cognition: recent memory grossly intact, remote memory grossly intact, attention grossly intact and language grossly intact Estimated Intelligence: consistent with education level Insight: + limited insight Judgment: + limited judgement Vital Signs (Past 24 Hours): Last Vital Signs Temp 36.6 C 01/12/25 12:36 Pulse 98 H 01/12/25 12:36 Resp 17 01/12/25 12:36 BP 96/66 L 01/12/25 12:36 Pulse Ox 99 01/12/25 12:36 O2 Del Method Room Air 01/12/25 12:36 Results & Data (PSY) Medications Administered Acetaminophen (Acetaminophen 500 Mg Tab) 500 mg PO Q6H PRN PRN Reason: fever/pain Stop: 02/09/25 21:14 Last Admin: 01/11/25 08:50 Dose: 500 mg Documented By: Admin: 01/11/25 00:53 Dose: 500 mg Documented By: ASHLEY Amitriptyline HCl (Amitriptyline Hcl 25 Mg Tab) 125 mg PO HS TIN Stop: 02/09/25 21:19 Last Admin: 01/11/25 19:54 Dose: 125 mg Documented By: Admin: 01/10/25 21:57 Dose: 125 mg Documented By: DE Baclofen (Baclofen 10 Mg Tab) 10 mg PO TID PRN PRN Reason: back pain/spasm Stop: 02/10/25 13:59 Last Admin: 01/12/25 12:52 Dose: 10 mg Documented By: Admin: 01/11/25 19:33 Dose: 10 mg Documented By: Admin: 01/11/25 13:01 Dose: 10 mg Documented By: TERENCE Diclofenac Sodium (Diclofenac Sodium 75 Mg Tabcr) 75 mg PO BID TIN Stop: 02/10/25 08:59 Last Admin: 01/12/25 09:30 Dose: 75 mg Documented By: Admin: 01/11/25 19:55 Dose: 75 mg Documented By: Admin: 01/11/25 08:51 Dose: 75 mg Documented By: TERENCE Duloxetine HCl (Duloxetine Hcl 60 Mg Cap) 60 mg PO DAILY TIN Stop: 02/10/25 08:59 Last Admin: 01/12/25 09:30 Dose: 60 mg Documented By: Admin: 01/11/25 09:35 Dose: 60 mg Documented By: TERENCE Enoxaparin Sodium (Enoxaparin Inj 30 Mg/0.3 Ml Syr) 30 mg SQ QAM TIN Stop: 02/10/25 08:59 Last Admin: 01/12/25 09:30 Dose: 30 mg Documented By: Admin: 01/11/25 08:51 Dose: 30 mg Documented By: TERENCE Folic Acid (Folic Acid 1 Mg Tab) 1 mg PO QAM TIN Stop: 02/10/25 08:59 Last Admin: 01/12/25 09:30 Dose: 1 mg Documented By: Admin: 01/11/25 09:35 Dose: 1 mg Documented By: TERENCE Gabapentin (Gabapentin 400 Mg Cap) 400 mg PO TID [facility] Stop: 02/09/25 21:19 Last Admin: 01/12/25 09:30 Dose: 400 mg Documented By: Admin: 01/11/25 19:56 Dose: 400 mg Documented By: Admin: 01/11/25 14:39 Dose: 400 mg Documented By: Admin: 01/11/25 09:34 Dose: 400 mg Documented By: Admin: 01/10/25 21:58 Dose: 400 mg Documented By: ED Hydroxyzine HCl (Hydroxyzine Hcl 25 Mg Tab) 100 mg PO QID PRN PRN Reason: Anxiety Stop: 02/09/25 21:15 Last Admin: 01/12/25 13:00 Dose: 100 mg Documented By: Admin: 01/11/25 09:34 Dose: 100 mg Documented By: Admin: 01/10/25 22:26 Dose: 100 mg Documented By: ED Lorazepam (Lorazepam 2 Mg/1 Ml Vial) 1 mg IV UD PRN; Protocol PRN Reason: EtOH Withdrawal AWSS Score 6,7 Stop: 02/10/25 01:20 Last Admin: 01/11/25 19:46 Dose: 1 mg Documented By: JUDE Lorazepam (Lorazepam 1 Mg Tab) 1 mg PO Q8H PRN PRN Reason: Anxiety Stop: 02/10/25 10:59 Last Admin: 01/11/25 11:22 Dose: 1 mg Documented By: TERENCE Miscellaneous (Remove Nicoderm Patch) 1 each N/A DAILY@0859 [facility] Stop: 02/10/25 08:58 Last Admin: 01/12/25 10:39 Dose: 1 each Documented By: Admin: 01/11/25 09:06 Dose: 1 each Documented By: TERENCE Heardcellaneous (Order Awaiting Action: Norethindrone-E.Estradiol-Iron [Lo Loestrin Fe] 1 Mg-10 Mcg (24)) 1 each N/A QS [facility] Stop: 02/10/25 07:59 Last Admin: 01/11/25 23:30 Dose: Not Given Documented By: Admin: 01/11/25 17:00 Dose: Not Given Documented By: Admin: 01/11/25 09:06 Dose: Not Given Documented By: TERENCE Multivitamins (Multivitamin Tab) 1 tab PO QAM [facility] Stop: 02/10/25 08:59 Last Admin: 01/12/25 09:30 Dose: 1 tab Documented By: Admin: 01/11/25 09:34 Dose: 1 tab Documented By: TERENCE Nicotine (Nicotine 14 Mg/24 Hr Patch) 1 patch TD [facility] Stop: 02/10/25 11:14 Last Admin: 01/12/25 10:39 Dose: 1 patch Documented By: Admin: 01/11/25 14:41 Dose: 1 patch Documented By: TERENCE Pantoprazole Sodium (Pantoprazole 40 Mg Tab) [facility] [place] Stop: 02/10/25 08:59 Last Admin: 01/12/25 09:30 Dose: 40 mg Documented By: Admin: 01/11/25 09:34 Dose: 40 mg Documented By: TERENCE Thiamine HCl (Thiamine Hcl 100 Mg Tab) [facility] [place] Stop: 02/10/25 08:59 Last Admin: 01/12/25 09:30 Dose: 100 mg Documented By: Admin: 01/11/25 09:34 Dose: 100 mg Documented By: TERENCE Topiramate (Topiramate 25 Mg Tab) 25 mg PO BID [facility] Stop: 02/09/25 21:19 Last Admin: 01/12/25 09:30 Dose: 25 mg Documented By: Admin: 01/11/25 19:56 Dose: 25 mg Documented By: Admin: 01/11/25 09:34 Dose: 25 mg Documented By: Admin: 01/10/25 21:59 Dose: 25 mg Documented By: ED Topiramate (Topiramate 100 Mg Tab) 100 mg PO TID [facility] Stop: 02/10/25 08:59 Last Admin: 01/12/25 09:30 Dose: 100 mg Documented By: Admin: 01/11/25 19:57 Dose: 100 mg Documented By: Admin: 01/11/25 14:39 Dose: 100 mg Documented By: Admin: 01/11/25 09:34 Dose: 100 mg Documented By: TERENCE Valacyclovir HCl (Valacyclovir Hcl 500 Mg Tablet) 500 mg PO BID TIN Stop: 01/15/25 04:44 Last Admin: 01/12/25 05:45 Dose: 500 mg Documented By: JUDE Coding Level of Care Code 03424 IN/OBS CONSULT LVL 4,60M Diagnoses Alcohol use disorder F10.90 PTSD (post-traumatic stress disorder) F43.10 Depression F32.9 Anxiety F41.9
--- NOTE | 2025-01-12 16:02 | Discharge Summary ---
Discharge Summary Date of Service January 12, 2025 Principal Dx & Hospital Course #1 = Principal Diagnosis (1) Alcohol intoxication: (2) Alcohol use disorder: (3) Acute dehydration: (4) Alcoholic liver disease: (5) Failed back syndrome: (6) ADD (attention deficit disorder): (7) Anxiety and depression: Plan Patient is a 44-year-old female with known history of alcohol dependence disorder presented to the emergency room intoxicated. She came in requesting assistance with withdrawal and possibly rehab. Patient was admitted to the hospital. She had laboratory evidence of dehydration with hemoconcentration and hypotension. This significantly improved with fluid resuscitation. Her diuretics were held. She denied any type of suicidal ideation. She was extremely drowsy and was given benzodiazepines only as needed for any type of withdrawal symptoms. She returned to her baseline status within the first 24 to 36 hours. Was able to have a conversation with her initially she was not interested in any type of inpatient rehab. Case management was involved. She was given all the resources for counseling and support services for her alcohol addiction. She also was given information how to reestablish care for ps ychiatrist and behavioral health services. Had a long discussion with her that she needs to treat both her mental health issues as well as her dependence on alcohol. Psychiatry consultation was obtained. They confirmed the need for the patient to treat both of her issues. She then initially was started to consider a dual diagnosis inpatient rehab stay. Psychiatry liaison came by to see the genia ann and will discuss options with her. Notes For Next Care Provider Medication Changes From Visit Patient's need for intermittent pain medicines naltrexone may not be the best medication to address her alcohol dependence Torsemide discontinued, patient came in dehydrated Admission HPI Per Admitting Provider History obtained from patient, family, and records. Medical history significant for ADHD, anxiety/mood disorder, fatty liver as per records, chronic anemia (baseline hemoglobin of 10-11), chronic back pain, ongoing weight/alcohol abuse. Recent confinement last month for alcohol withdrawal. Patient discharged home. Patient started drinking again after discharge. Tonight she stated to her mother that she did not want to live like this way. Patient denies suicidal intent which mother verifies. Patient denies headache, chest pain, SOB, unusual abdominal pain. Patient brought to ER for detox. Medical Historyas above Surgical History : Hand surgery, dental surgery Family History : Alcoholism, A-fib, dementia Personal/Social history : 1 pack daily, alcohol abuse, currently unemployed Admission Exam Per Admitting Provider See H&P Discharge Exam Constitutional: Alert HEENT: Mucous membranes moist. 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 Psych: Cooperative, depressed mood and affect Updated Medication List Medication Instructions Recorded Confirmed Type amitriptyline 50 mg tablet 125 mg PO HS 11/27/24 01/10/25 History duloxetine 60 mg capsule,delayed 60 mg PO DAILY 11/27/24 01/10/25 History release gabapentin 400 mg capsule 400 mg PO TID 11/27/24 01/10/25 History hydroxyzine pamoate 100 mg capsule 100 mg PO QID PRN Anxiety 11/27/24 01/10/25 History lorazepam 1 mg tablet 1 mg PO DAILY PRN Anxiety 11/27/24 01/10/25 History topiramate 100 mg tablet 100 mg PO TID 11/27/24 01/10/25 History torsemide 10 mg tablet 10 mg PO DAILY 11/27/24 01/10/25 History pantoprazole 40 mg tablet,delayed 40 mg PO QAM #30 tabs 12/01/24 01/10/25 Rx release acetaminophen 500 mg tablet 500 mg PO Q6H PRN PAIN/FEVER 01/10/25 01/10/25 History (Tylenol Extra Strength) baclofen 10 mg tablet 10 mg PO TID muscle spasm 01/10/25 01/10/25 History cyclobenzaprine 10 mg tablet 10 mg PO BID PRN MUSCLE SPASMS 01/10/25 01/10/25 History diclofenac sodium 75 mg 75 mg PO BID back pain 01/10/25 01/10/25 History tablet,delayed release naltrexone 50 mg tablet 50 mg PO QAM 01/10/25 01/10/25 History norethindrone 1 mg-ethinyl 1 tab PO DAILY 01/10/25 01/10/25 History estradiol 10 mcg (24)-iron 10 mcg(2) tablet (Lo Loestrin Fe) topiramate 25 mg tablet 25 mg PO BID 01/10/25 01/10/25 History folic acid 1 mg tablet 1 mg PO QAM #30 tabs 01/12/25 Rx multivitamin with folic acid 400 1 tab PO QAM #30 tabs 01/12/25 Rx mcg tablet (Daily-Susan (with folic acid)) nicotine 7 mg/24 hr daily 1 patch transdermal QAM #14 ea 01/12/25 Rx transdermal patch thiamine HCl (vitamin B1) 100 mg 100 mg PO QAM #30 tabs 01/12/25 Rx tablet valacyclovir 500 mg tablet 500 mg PO BID 3 days #6 tabs 01/12/25 Rx Hospital Stay Data Consultations 01/10/25 20:18 ED Decision to Admit Stat 01/11/25 09:55 Consult Psychiatry Routine Diagnostic Imagining Performed Reviewed imaging, laboratory and diagnostic studies. Pertinent findings as below. WBCs 5.9 Hemoglobin 10.0, baseline Platelets 238 Electrolytes within normal range Creatinine 0.85 AST 60, improved Elevated ALT 32 Alk phos 40 Pending Results Patient Have Any Pending Studies at Discharge: No Discharge Instructions Given to Patient (Per Discharging Provider) Strongly recommend you stop all beer and alcohol Strongly recommend you commit to outpatient intensive counseling for your alcohol addiction Strongly recommend you continue to work with a psychiatrist/counselor for your anxiety and depression And history of emotional trauma Strongly recommend you stop smoking Total Time Total Time Spent Total Time Spent (In Minutes): 45
--- NOTE | 2025-01-12 16:04 | Hospitalist Progress Note ---
Date of Service January 12, 2025 Assessment & Plan (1) Alcohol intoxication: (2) Alcohol use disorder: (3) Acute dehydration: (4) Alcoholic liver disease: (5) Failed back syndrome: (6) ADD (attention deficit disorder): (7) Anxiety and depression: (8) Herpes simplex type 1 infection: Plan Continue with usual outpatient medications Valtrex started overnight for acute herpes labialis type I 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 with psychiatry, after their discussion with the patient patient expressed some interest in learning more about inpatient rehab options. Awaiting psych liaison's conversation with patient to review her options and whether she would like to pursue any of them. If patient declines to pursue an inpatient rehab stay, anticipate discharge later on today Admission and Anticipated Discharge Date Admission Date: January 10, 2025 Subjective Patient seen earlier this morning. Has her chronic complaints associated with her pain and anxiety. More interactive and has seen later in the afternoon and was ambulating from the bathroom. This morning she did not express interest in inpatient rehabilitation or mental health care. Physical Exam Physical Exam: Constitutional: Alert HEENT: Mucous membranes moist. Lungs: Clear to auscultation, decreased, no wheezes rales or rhonchi CV: S1-S2, regular Abdomen: Soft, nontender, nondistended Extremities: No significant edema Neuro: Generalized weakness Psych: Cooperative, depressed mood, denies suicidal ideation Results & Data Results & Data Vital Signs (Past 12 Hours) Vital Signs Temp Pulse Resp BP Pulse Ox O2 Del Method 01/12/25 12:36 36.6 C 98 H 17 96/66 L 99 Room Air 01/12/25 08:00 36.6 C 77 17 94/65 L 99 Room Air Diagnostic Findings Reviewed imaging, laboratory and diagnostic studies. Pertinent findings as below. (1) Alcohol intoxication Complication of substance-induced condition: with delirium Qualified Code(s): F10.921 - Alcohol use, unspecified with intoxication delirium
[2025-01-13 08:17] LABS: Creatinine Clr Calc Pharmacy 93.1 ml/min
[2025-01-13] MEDS: LORazepam 0.5 MG TAB PO PRN (13:35)
--- NOTE | 2025-01-13 14:33 | Magnetic Resonance Report ---
MRI of the brain performed without IV contrast History: Ataxia Comparison: May 05, 2015 Technique: Sagittal T1-weighted and axial T2-weighted, T2/FLAIR and diffusion-weighted with ADC map images of the brain were obtained without IV contrast. Findings: No evidence for intracranial mass lesion, mass-effect, midline shift, or abnormal extra-axial fluid collection. The ventricles and sulci are within normal limits for age. No abnormally reduced diffusion or evidence for acute infarct. Normal intravascular flow voids. Impression: Normal brain MRI Electronically signed by Kp Myles 01-13-2025 2:33 PM
--- NOTE | 2025-01-13 14:38 | Hospitalist Progress Note ---
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 This is despite being through alcohol withdrawal process and not receiving any additional as needed benzodiazepines. Will obtain MRI of the brain for further evaluation of patient's ataxia Increase thiamine replacement to 500 mg IV every 8 hours for concern of possible Warnicke's encephalopathy. Reviewed psychiatry/behavioral health liaison notes. Recommending dual diagnosis rehab placement. Patient continues to be noncommittal but at the same time states that she is interested. Reinforced to the patient that she needs to commit either to an inpatient rehab plan or follow through on outpatient counseling. We are happy to help her pursue either of the options but she needs to make a decision. PT/OT evaluations, concern now with patient's ataxia may not be able to go to dual diagnosis rehab until her physical condition improves. Admission and Anticipated Discharge Date Admission Date: January 10, 2025 Subjective Patient this morning still very sleepy and lethargic and difficult to awake. Able to awaken patient somewhat. She sat up and started to eat some breakfast. Noted that she is quite ataxic with her hand motions. With that said this did not seem to bother her. Physical Exam Physical Exam: Constitutional: Asleep, difficult to arouse, drowsy HEENT: Mucous membranes moist. Lungs: Clear to auscultation, decreased, no wheezes rales or rhonchi CV: S1-S2, regular Abdomen: Soft, nontender, nondistended Extremities: No significant edema Neuro: Drowsy, ataxic Psych: Cooperative, depressed Results & Data Results & Data Vital Signs (Past 12 Hours) Vital Signs Temp Pulse Resp BP Pulse Ox O2 Del Method 01/13/25 07:30 36.6 C 79 18 91/58 L 100 Room Air Laboratory Results Creatinine 0.60 (6) Alcohol intoxication Complication of substance-induced condition: with delirium Qualified Code(s): F10.921 - Alcohol use, unspecified with intoxication delirium
[2025-01-13] MEDS: THIAMINE HCL 500 MG in SODIUM CHLORIDE 0.9% 50 ML IV SCH (14:51)
[2025-01-13] MEDS: AMITRIPTYLINE HCL 25 MG TAB PO SCH (21:12)
[2025-01-13] MEDS ORDERED: POLYETHYLENE (MIRALAX) 17 GM PACK PO PRN (23:24)
[2025-01-13] MEDS: POLYETHYLENE (MIRALAX) 17 GM PACK PO STA (23:33)
[2025-01-13] MEDS: DOCUSATE SODIUM/SENNA 50/8.6MG TAB PO SCH (23:33)
[2025-01-14 06:59] LABS: Hematocrit (blood only) 32.1 % (37.0-47.0); Hemoglobin 10.9 g/dl (12.0-16.0); Mean Corpuscular Hemoglobin 33.4 pg (25.0-34.0); Mean Corpuscular Volume 98.5 fL (80.0-100.0); Mean Platelet Volume 9.8 fL (9.4-12.4); Platelet Count 156 K/uL (130-400); RDW Coefficient of Variation 16.3 % (11.5-14.5); RDW Standard Deviation 58.8 fL (36.4-46.3); Red Blood Count 3.26 M/uL (4.20-5.40); White Blood Count 8.15 K/ul (4.8-10.8)
[2025-01-14 07:32] LABS: BUN Creatinine Ratio 26.2 (10-20); Calcium 8.4 mg/dl (8.6-10.3); Creatinine Clr Calc Pharmacy 103.7 ml/min; Phosphorus 2.9 mg/dl (2.5-4.9); Potassium 3.8 mmol/L (3.5-5.1)
[2025-01-14] MEDS ORDERED: chlordiazePOXIDE HCl 5 MG CAP PO SCH (09:00)
--- NOTE | 2025-01-14 10:45 | Discharge Summary ---
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 Patient was admitted to the hospital. She was monitored for alcohol withdrawal. She had minimal withdrawal symptoms at did not require significant amounts of benzodiazepines. The patient has had multiple hospitalizations for similar conditions and complaints. She has been offered numerous resources to get assistance for mental health and her alcohol addiction outpatient. She has also been offered inpatient rehab investigation and placement during these hospitalizations which in the past she had declined. Patient was seen by psychiatry here in the hospital. She was also seen by case management. Patient also has significant mental health issues. This drives her alcohol addiction and is a significant reason why she drinks alcohol to escape her mental health issues. It was recommended to her that she pursue an inpatient dual diagnosis rehab facility where her mental health and her alcohol addiction could be addressed. She was seen by the psychiatry liaison on a daily basis. Ultimately she decided she did not want to stay here in the hospital to pursue placement in would like to pursue outpatient care again. She was given all the resources available to her in the community. And it was strongly suggested that she follow through with outpatient care. She was quite ataxic as she progressed through her hospitalization. She was given IV thiamine. MRI of the brain showed no acute abnormalities. As she got further removed from her alcohol intoxication the ataxia improved. On the day of discharge she was awake and alert. Had an extensive conversation with her at the bedside explained to her that I highly concerned that if she continues to drink that she will have permanent organ damage and may eventually even lead to her . I also strongly encouraged her to address her mental health issues. Again offered to place her in a dual diagnosis facility. She declined this she does not want to go from the hospital to a rehab place. I stressed to her that it is her initiative and her responsibility to make the calls and go to the appointments that she wants to set up outpatient. We can provide her with all the information but she has to do it. She expressed understanding of this and a willingness to make these calls. Patient be discharged to outpatient care and follow-up case management and psychiatry liaison will be providing her with phone numbers and resources available to her in the outpatient setting. Notes For Next Care Provider Medication Changes From Visit Recommend daily folic acid and thiamine and oral supplementation Admission HPI Per Admitting Provider Medical history significant for ADHD, anxiety/mood disorder, fatty liver as per records, chronic anemia (baseline hemoglobin of 10-11), chronic back pain, ongoing weight/alcohol abuse. Recent confinement last month for alcohol withdrawal. Patient discharged home. Patient started drinking again after discharge. Tonight she stated to her mother that she did not want to live like this way. Patient denies suicidal intent which mother verifies. Patient denies headache, chest pain, SOB, unusual abdominal pain. Patient brought to ER for detox. Admission Exam Per Admitting Provider See H&P Discharge Exam Constitutional: Alert, interactive HEENT: Mucous membranes moist. Lungs: Clear to auscultation, decreased, no wheezes rales or rhonchi CV: S1-S2, regular Abdomen: Soft, nontender, nondistended Extremities: No significant edema Neuro: Strength improving, ataxia improving Psych: Cooperative, depressed and flat affect and mood Updated Medication List Medication Instructions Recorded Confirmed Type amitriptyline 50 mg tablet 125 mg PO HS 11/27/24 01/10/25 History duloxetine 60 mg capsule,delayed 60 mg PO DAILY 11/27/24 01/10/25 History release gabapentin 400 mg capsule 400 mg PO TID 11/27/24 01/10/25 History hydroxyzine pamoate 100 mg capsule 100 mg PO QID PRN Anxiety 11/27/24 01/10/25 History lorazepam 1 mg tablet 1 mg PO DAILY PRN Anxiety 11/27/24 01/10/25 History topiramate 100 mg tablet 100 mg PO TID 11/27/24 01/10/25 History torsemide 10 mg tablet 10 mg PO DAILY 11/27/24 01/10/25 History pantoprazole 40 mg tablet,delayed 40 mg PO QAM #30 tabs 12/01/24 01/10/25 Rx release acetaminophen 500 mg tablet 500 mg PO Q6H PRN PAIN/FEVER 01/10/25 01/10/25 History (Tylenol Extra Strength) baclofen 10 mg tablet 10 mg PO TID muscle spasm 01/10/25 01/10/25 History cyclobenzaprine 10 mg tablet 10 mg PO BID PRN MUSCLE SPASMS 01/10/25 01/10/25 History diclofenac sodium 75 mg 75 mg PO BID back pain 01/10/25 01/10/25 History tablet,delayed release naltrexone 50 mg tablet 50 mg PO QAM 01/10/25 01/10/25 History norethindrone 1 mg-ethinyl 1 tab PO DAILY 01/10/25 01/10/25 History estradiol 10 mcg (24)-iron 10 mcg(2) tablet (Lo Loestrin Fe) topiramate 25 mg tablet 25 mg PO BID 01/10/25 01/10/25 History folic acid 1 mg tablet 1 mg PO QAM #30 tabs 01/12/25 Rx multivitamin with folic acid 400 1 tab PO QAM #30 tabs 01/12/25 Rx mcg tablet (Daily-Susan (with folic acid)) nicotine 7 mg/24 hr daily 1 patch transdermal QAM #14 ea 01/12/25 Rx transdermal patch thiamine HCl (vitamin B1) 100 mg 100 mg PO QAM #30 tabs 01/12/25 Rx tablet valacyclovir 500 mg tablet 500 mg PO BID 3 days #6 tabs 01/12/25 Rx Hospital Stay Data Consultations 01/10/25 20:18 ED Decision to Admit Stat 01/11/25 09:55 Consult Psychiatry Routine Diagnostic Imagining Performed 01/13/25 12:35 MR brain wo con Routine Reviewed imaging, laboratory and diagnostic studies. Pertinent findings as below. MRI of the brain normal Hemoglobin 10.9 WBCs 8.1 Platelets of 156 Sodium 133 Potassium 3.8 Creatinine 0.61 Magnesium 2.0 Urine drug screen unremarkable Pending Results Patient Have Any Pending Studies at Discharge: No Discharge Instructions Given to Patient (Per Discharging Provider) Strongly recommend you stop all beer and alcohol Strongly recommend you commit to outpatient intensive counseling for your alcohol addiction Strongly recommend you continue to work with a psychiatrist/counselor for your anxiety and depression And history of emotional trauma Strongly recommend you stop smoking Strongly recommend you consider self admission to a dual diagnosis facility where they can address both your mental health and your alcohol addiction. Total Time Total Time Spent Total Time Spent (In Minutes): 40
[2025-01-14 16:05] VITALS: RESP 16; TEMP 97.2; O2SAT 99
[2025-01-14 16:22] VITALS: BP 90/56; PULSE 85
== END 2025-01-14 18:30 | disposition home or self-care (01) | DRG 897 ==
LOC: ED 17:48 → EDINP 20:52 → 2S 01-11 00:38 → 2N 01-13 02:10 → 3W 01-13 18:51

== ENCOUNTER 2025-05-08 07:06 | Inpatient (IN) ==
[2025-05-08 08:01] LABS: Appearance Urine Clear (Clear); Bacteria Urine Automated None Seen (None Seen); Cast Urine Automated 0-2 /lpf (0-2); Epithelial Cell Urine Auto 0-2 /hpf (0-2); Glucose Urine UA Negative (Negative); RBC Urine Automated 0-2 /hpf (0-2); WBC Urine Automated 0-5 /hpf (0-5)
[2025-05-08] MEDS: ONDANSETRON INJ 2 MG/ML 2 ML VIAL IV STA (08:12)
[2025-05-08] MEDS: SODIUM CHLORIDE 0.9% 1,000 ML IV ONE (08:12)
[2025-05-08 08:26] LABS: Hematocrit (blood only) 36.6 % (37.0-47.0); Hemoglobin 13.1 g/dl (12.0-16.0); Immature Granulocytes # (auto) 0.03 K/uL (0.01-0.20); Immature Granulocytes % (auto) 0.7 %; Mean Corpuscular Hemoglobin 33.6 pg (25.0-34.0); Mean Corpuscular Volume 93.8 fL (80.0-100.0); Platelet Count 274 K/uL (130-400); RDW Standard Deviation 54.1 fL (36.4-46.3); Red Blood Count 3.90 M/uL (4.20-5.40); White Blood Count 4.50 K/ul (4.8-10.8)
--- NOTE | 2025-05-08 08:43 | Emergency Department Note ---
ED Provider Note History of Present Illness Chief Complaint: Detox Request Stated Complaint: DETOX Time Seen by Provider: 05/08/25 07:31 Source: patient and family Mode of arrival: ambulatory Limitations: no limitations Patient is a 44-year-old female who presents to the emergency department looking to detox from alcohol. Patient states that she has been drinking alcohol daily for several years but over the last week has acutely increased, she has been drinking and has reportedly been having an entire bottle of vodka a day. Patient states that she does have a history of seizures with alcohol withdrawal and got scared that she could be on the verge of seizures today. Patient reports that she had her last drink of vodka at 5:00 this morning. Patient notes some abdominal pain and nausea. Home Medications Medication Instructions Recorded Confirmed Type amitriptyline 50 mg tablet 125 mg PO HS PRN Insomnia 11/27/24 05/08/25 History duloxetine 60 mg capsule,delayed 60 mg PO QAM 11/27/24 05/08/25 History release gabapentin 400 mg capsule 400 mg PO TID 11/27/24 05/08/25 History hydroxyzine pamoate 100 mg capsule 100 mg PO QID PRN Anxiety 11/27/24 05/08/25 History lorazepam 1 mg tablet 1 mg PO DAILY PRN Anxiety 11/27/24 05/08/25 History topiramate 100 mg tablet 100 mg PO TID 11/27/24 05/08/25 History pantoprazole 40 mg tablet,delayed 40 mg PO QAM #30 tabs 12/01/24 05/08/25 Rx release acetaminophen 500 mg tablet 500 mg PO Q6H PRN PAIN/FEVER 01/10/25 05/08/25 History (Tylenol Extra Strength) baclofen 10 mg tablet 10 mg PO TID Muscle Spasms 01/10/25 05/08/25 History diclofenac sodium 75 mg 75 mg PO BID Back Pain 01/10/25 05/08/25 History tablet,delayed release norethindrone 1 mg-ethinyl 1 tab PO DAILY 01/10/25 05/08/25 History estradiol 10 mcg (24)-iron 10 mcg(2) tablet (Lo Loestrin Fe) topiramate 25 mg tablet 25 mg PO BID 01/10/25 05/08/25 History folic acid 1 mg tablet 1 mg PO QAM #30 tabs 01/12/25 05/08/25 Rx multivitamin with folic acid 400 1 tab PO QAM #30 tabs 01/12/25 05/08/25 Rx mcg tablet (Daily-Susan (with folic acid)) nicotine 7 mg/24 hr daily 1 patch transdermal QAM #14 ea 01/12/25 05/08/25 Rx transdermal patch thiamine HCl (vitamin B1) 100 mg 100 mg PO QAM #30 tabs 01/12/25 05/08/25 Rx tablet Allergies Allergy/AdvReac Type Severity Reaction Status Date / Time nickel Allergy Mild Rash Verified 01/10/25 20:33 Past Med/Surg History Problem List (Updated 05/08/25 @ 13:53 by DM Ortiz) History of seizure due to alcohol withdrawal (Acute) At risk for alcohol withdrawal 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 Acute dehydration (Acute) Vomiting (Acute) Alcohol abuse (Acute) Alcohol intoxication (Acute) PTSD (post-traumatic stress disorder) Alcohol use disorder Back pain (Acute) Alcohol intoxication (Acute) ZUHAIR (acute kidney injury) (Acute) Acute dehydration (Acute) Nausea & vomiting (Acute) History of alcohol dependence (Acute) Acute alcoholic pancreatitis (Acute) Pancreatitis without necrosis or infection Vomiting (Acute) ZUHAIR (acute kidney injury) (Acute) Alcohol withdrawal (Acute) Alcohol abuse (Acute) Hypomagnesemia (Acute) Tachycardia (Acute) Alcohol withdrawal Alcoholic ketoacidosis (Acute) Contusion (Acute) Alcoholic intoxication (Acute) Alcohol abuse (Acute) Weakness (Acute) Hypomagnesemia (Acute) Hallucinations (Acute) Alcohol abuse (Acute) S/P nasal surgery septoplasty and rhinoplasty-both w/Dr. Castañeda Allergic rhinitis Abnormal uterine bleeding ADD (attention deficit disorder) Insomnia Restless leg Anxiety and depression (Chronic) Fatty liver (Chronic) Alcohol dependence (Chronic) Medical History Tobacco use disorder Intractable nausea and vomiting Depression Anxiety Surgical History H/O wisdom tooth extraction Family History Aunt Breast cancer, Onset Age: 65 paternal Asthma maternal Grandfather (Paternal) Prostate cancer Aunt Allergies maternal Family/Other Allergies cousins Asthma cousins Other No family history of adverse response to anesthesia No family history of bleeding disorder Denies family history of Ovarian cancer Colorectal cancer Social History Smoking Status: Current every day smoker Tobacco Type: E-cigarettes / Vaping Age Started Using Tobacco: 20; packs per day: 0.5; Cigarettes Per Day: 4; Second Hand Exposure: No; Do You Dip or Chew Tobacco: No; Hx Alcohol Use: Yes Alcohol type: hard liquor Hx Substance Use: No Preferred Language: Dominican 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 Ability: Effective 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 Beliefs That Will Affect Care: None marital status: Single Current Living Situation: Alone Feels Safe at Home: Yes Safety Concerns: Feels Safe At This Time Assistive Devices: None Physical Exam Vital Signs Vital Signs - 24 hr 05/08/25 07:15 05/08/25 07:37 05/08/25 07:45 Temperature 36.4 C L Temperature Source Oral Pulse Rate 99 H 97 H Pulse Rate from SpO2 Sensor Respiratory Rate 20 Respiratory Effort / Characteristics Non-Labored Spontaneous Respiratory Depth Normal Blood Pressure 121/89 Blood Pressure Mean 99 Pulse Oximetry 98 Oxygen Delivery Method Room Air Room Air Sepsis Recent Fever Within 48 Hours No Sepsis New/Unexplained Change in Mental Status N/A Sepsis Action Taken by Nursing No Action Required 05/08/25 07:45 05/08/25 07:57 05/08/25 08:12 Temperature Temperature Source Pulse Rate 100 H 94 H Pulse Rate from SpO2 Sensor 95 H 95 H Respiratory Rate 17 14 16 Respiratory Effort / Characteristics Non-Labored Spontaneous Respiratory Depth Normal Blood Pressure Blood Pressure Mean Pulse Oximetry 96 99 Oxygen Delivery Method Sepsis Recent Fever Within 48 Hours Sepsis New/Unexplained Change in Mental Status Sepsis Action Taken by Nursing 05/08/25 08:51 05/08/25 09:00 05/08/25 09:00 Temperature Temperature Source Pulse Rate 98 H 94 H Pulse Rate from SpO2 Sensor 100 H 94 H Respiratory Rate 16 19 Respiratory Effort / Characteristics Respiratory Depth Blood Pressure 116/82 Blood Pressure Mean 92 Pulse Oximetry 98 94 Oxygen Delivery Method Sepsis Recent Fever Within 48 Hours Sepsis New/Unexplained Change in Mental Status Sepsis Action Taken by Nursing 05/08/25 09:00 05/08/25 09:00 05/08/25 09:27 Temperature Temperature Source Pulse Rate 104 H Pulse Rate from SpO2 Sensor 104 H Respiratory Rate 16 Respiratory Effort / Characteristics Respiratory Depth Blood Pressure 116/82 116/82 Blood Pressure Mean 92 92 Pulse Oximetry 94 Oxygen Delivery Method Sepsis Recent Fever Within 48 Hours Sepsis New/Unexplained Change in Mental Status Sepsis Action Taken by Nursing 05/08/25 09:30 Temperature Temperature Source Pulse Rate 97 H Pulse Rate from SpO2 Sensor 97 H Respiratory Rate 15 Respiratory Effort / Characteristics Respiratory Depth Blood Pressure Blood Pressure Mean Pulse Oximetry 97 Oxygen Delivery Method Sepsis Recent Fever Within 48 Hours Sepsis New/Unexplained Change in Mental Status Sepsis Action Taken by Nursing VITAL SIGNS - Vital signs and nursing notes were reviewed. GENERAL -44-year-old female appearing her stated age who is in no acute distress. Communicates well with provider and answers questions appropriately. HEAD - NC/AT. EYES - PERRL with EOMI bilaterally. Conjunctiva pink and moist with no injection noted. EARS - No deformities of external structures noted on gross examination bilaterally. NOSE - Midline and without cyanosis. No epistaxis or purulent drainage noted. LUNGS - Chest wall symmetric without accessory muscle use, intercostals retractions, or central cyanosis. Breath sounds clear throughout all womack. No wheezes, rales, or rhonchi appreciated. CARDIAC - RRR with S1/S2. No murmur, rubs, or gallops appreciated. ABDOMEN - Abdominal contour without pulsations or visible masses. Negative Alejandro's or Valdez Estrella's Signs. BS normoactive all four quadrants. Mildly increased tenderness to palpation appreciated throughout. No guarding. No rebound Tenderness. No palpable masses, hepatosplenomegaly, or ascites noted. NEUROLOGIC - Sensory intact to light touch throughout. PSYCH - A&Ox3 and cooperates fully with examiner. Pt is very pleasant and interacts well with examiner. Course Administered Medications Enoxaparin Sodium (Enoxaparin Inj 40 Mg/0.4 Ml Syr) 40 mg SQ Q24H [facility] Stop: 06/07/25 11:29 Last Admin: 05/08/25 13:12 Dose: 40 mg Documented By: Lactated Ringer's (Lr) 1,000 mls @ 80 mls/hr IV .[id number] TIN Stop: 05/09/25 07:00 Last Admin: 05/08/25 10:47 Dose: 80 mls/hr Documented By: Phenobarbital Sodium (Phenobarbital Sodium 65 Mg/Ml Vial) 65 mg IM Q3H TIN Stop: 05/08/25 16:16 Last Admin: 05/08/25 13:14 Dose: 65 mg Documented By: Discontinued Medications Sodium Chloride (Nss) 1,000 mls @ 999 mls/hr IV .[id number] ONE Stop: 05/08/25 09:04 Last Infusion: 05/08/25 10:31 Dose: Infused Documented By: Admin: 05/08/25 08:12 Dose: 999 mls/hr Documented By: MOI Lorazepam (Lorazepam 1 Mg/1 Ml Syr Ed Inj Use) 1 mg IV ONE STA Stop: 05/08/25 09:50 Last Admin: 05/08/25 10:00 Dose: 1 mg Documented By: MOI Ondansetron HCl (Ondansetron Inj 2 Mg/Ml 2 Ml Vial) 4 mg IV NOW STA Stop: 05/08/25 08:05 Last Admin: 05/08/25 08:12 Dose: 4 mg Documented By: MOI Phenobarbital Sodium (Phenobarbital Sodium 130 Mg/Ml Vial) 130 mg IM NOW STA Stop: 05/08/25 10:11 Last Admin: 05/08/25 10:48 Dose: 130 mg Documented By: Medical Decision Making Differential Diagnosis Alcohol detox, alcohol intoxication, alcohol withdrawal, nausea, vomiting, among others Medical Records Attestation: I reviewed the patient's medical records. Home Medications was personally reviewed by me Laboratory Data Attestation: I reviewed the patient's lab results. 05/08/25 08:05 05/08/25 08:05 Lab Results 05/08/25 05/08/25 Range/Units 07:35 08:05 WBC 4.50 L (4.8-10.8) K/ul RBC 3.90 L (4.20-5.40) M/uL Hgb 13.1 (12.0-16.0) g/dl Hct 36.6 L (37.0-47.0) % MCV 93.8 (80.0-100.0) fL MCH 33.6 (25.0-34.0) pg MCHC 35.8 (32.0-36.0) g/dL RDW Std Deviation 54.1 H (36.4-46.3) fL RDW Coeff of Edgar 15.7 H (11.5-14.5) % Plt Count 274 (130-400) K/uL MPV 8.6 L (9.4-12.4) fL Immature Gran % (Auto) 0.7 % Neut % (Auto) 46.4 % Lymph % (Auto) 40.4 % [place] % (Auto) 9.6 % Eos % (Auto) 2.0 % Baso % (Auto) 0.9 % Neut # (Auto) 2.09 (1.40-6.50) K/uL Lymph # (Auto) 1.82 (1.20-3.40) K/uL [place] # (Auto) 0.43 (0.11-0.59) K/uL Eos # (Auto) 0.09 (0.00-0.50) K/uL Baso # (Auto) 0.04 (0.00-0.20) K/uL Immature Gran # (Auto) 0.03 (0.01-0.20) K/uL Sodium 146 H (136-145) mmol/L Potassium 4.0 (3.5-5.1) mmol/L Chloride 102 (98-107) mmol/L Carbon Dioxide 25 (21-32) mmol/L Anion Gap 19 H (3-11) BUN 7 (6-23) mg/dl Creatinine 0.66 (0.6-1.2) mg/dl Est Cr Clr Drug Dosing 94.7 ml/min eGFR 112.25 BUN/Creatinine Ratio 10.6 (10-20) Glucose 98 (70-99(Fasting)) mg/dl Calcium 8.5 L (8.6-10.3) mg/dl Total Bilirubin 0.4 (0.2-1.0) mg/dl AST 272 H (13-39) U/L ALT 129 H (7-52) U/L Alkaline Phosphatase 66 (34-104) U/L Total Protein 7.4 (6.0-8.3) gm/dl Albumin 4.7 (3.4-5.0) gm/dl Globulin 2.7 (2.5-4.0) gm/dl Albumin/Globulin Ratio 1.7 (0.9-2) TSH 5.424 H (0.300-4.500) uIu/ml Free T4 0.67 (0.61-1.60) ng/dl Urine Color Yellow Urine Appearance Clear (Clear) Urine pH 5.5 (4.5-7.5) Ur Specific [place] 1.013 (1.000-1.030) Urine Protein Trace H (Negative) Urine Glucose (UA) Negative (Negative) Urine Ketones Trace H (Negative) Urine Blood 2+ H (Negative) Urine Nitrite Negative (Negative) Urine Bilirubin Negative (Negative) Urine Urobilinogen Negative (Negative) Ur Leukocyte Esterase Negative (Negative) Urine WBC (Auto) 0-5 (0-5) /hpf Urine RBC (Auto) 0-2 (0-2) /hpf U Hyaline Cast (Auto) 0-2 (0-2) /lpf U Epithel Cells (Auto) 0-2 (0-2) /hpf Urine Bacteria (Auto) None Seen (None Seen) Urine Comment Salicylates < 3.0 L (3.0-30) mg/dl Urine Opiates Screen Neg (Neg) Ur Methadone, Qual Neg (Neg) Urine Fentanyl Screen Neg (Neg) Acetaminophen < 3 L (10-30) ug/ml Urine Barbiturates Neg (Neg) Ur Phencyclidine (PCP) Neg (Neg) U Amphetamin/Meth Scrn Neg (Neg) MDMA (Ecstasy) Screen Neg (Neg) U Benzodiazepines Scrn Neg (Neg) Ur Cocaine Metabolite Neg (Neg) U Marijuana (THC) Screen Neg (Neg) Ethyl Alcohol mg/dL 348.7 H (<10.0) mg/dl SARS-CoV-2, RNA, NAAT NEGATIVE (NEGATIVE) [facility] Narrative Patient is a 44-year-old female who presents to the emergency department looking to detox from alcohol. Patient states that she has been drinking alcohol daily for several years but over the last week has acutely increased, she has been drinking and has reportedly been having an entire bottle of vodka a day. Patient states that she does have a history of seizures with alcohol withdrawal and got scared that she could be on the verge of seizures today. Patient reports that she had her last drink of vodka at 5:00 this morning. Patient notes some abdominal pain and nausea. Patient was evaluated by myself and findings were noted in the physical exam above. Patient was ordered IV placement, lab work including medical alcohol, urinalysis, urine drug screen, CT of the abdomen pelvis, IV saline and Zofran for her nausea. Patient declined the abdominal CT at the moment, as she would like to speak with her parents to determine whether she would like to do the abdomen pelvis CT. Patient's lab work resulted with a white blood cell count of 4.50. Patient had very mild anemia with a hemoglobin of 13.1 and hematocrit of 36.6. Patient had no significant electrolyte imbalance noted. Patient had an anion gap of 19 and some elevated liver function test. Patient's liver function test at baseline running elevated however it did appear to be more elevated than typical. Patient's urinalysis was not indicative of any infection. Patient did have 2+ blood in her urine but does report being on her menstrual cycle currently. Patient's urine drug screen was negative. Patient's medical alcohol level resulted at 348.7. I discussed all these findings with the patient and her family member at bedside who both verbalized understanding. Patient states that she would still like to hold off on the CT of her abdomen and pelvis at this time. Patient notes that she is feeling less nauseous but is feeling increasingly more irritable and anxious. I discussed with the patient the because of her history of seizures with withdrawal from alcohol I thought that it would be appropriate for her to be admitted to the hospital during the detox process. Patient verbalized understanding was agreeable to that plan noting that she would feel safer staying in the hospital to detox. Patient was ordered 1 mg of Ativan by IV at this time. I reached out to talk to the [facility] hospitalist group about this patient for admission. I spoke with Meghann, who is the PA that was working with Dr. Urrutia and the [facility] hospitalist group today. I gave her a full report of the patient's chief complaint, current status and the results of her imaging and lab work. I also discussed with her that the patient was becoming more irritable and anxious as she is becoming more sober. She verbalized understanding and was agreeable to accept the patient for admission to the hospital under Dr. Alonso. Please refer the [facility] hospitalist group's documentation for further evaluation and management of this patient. Impression Alcohol withdrawal, Alcoholic intoxication, History of seizure due to alcohol withdrawal Discharge Plan Visit Data Chief Complaint: Detox Request Stated Complaint: DETOX ED Provider: Tin Rucker ED Midlevel Provider: Candace Correa Discharge Problem: Alcohol withdrawal, Alcoholic intoxication, History of seizure due to alcohol withdrawal Patient Disposition: Admitted As Inpatient Condition: Fair Discharge Instructions Interventions: ED Discharge Assessment Last Done: 05/08/25 11:11 ED DC CONDITION Conditon at Discharge Condition at Discharge: Fair Discharge Problem: Alcohol withdrawal Qualifiers: Complication of substance-induced condition: uncomplicated Qualified Code(s): F 10.930 - Alcohol use, unspecified with withdrawal, uncomplicated Alcoholic intoxication Qualifiers: Complication of substance-induced condition: uncomplicated Qualified Code(s): F 10.920 - Alcohol use, unspecified with intoxication, uncomplicated
[2025-05-08 08:45] LABS: Amphetamines+Metham, Urine Neg (Neg); MDMA (Ecstacy), Urine Neg (Neg); Marijuana, Urine Neg (Neg)
[2025-05-08 08:48] LABS: Alanine Aminotransferase 129.0 U/L (7-52); Albumin Globulin Ratio 1.7 (0.9-2); Alkaline Phosphatase 66.0 U/L (34-104); Anion Gap 19.0 (3-11); Bilirubin,Total 0.4 mg/dl (0.2-1.0); Blood Urea Nitrogen 7.0 mg/dl (6-23); Calcium 8.5 mg/dl (8.6-10.3); Carbon Dioxide 25.0 mmol/L (21-32); Chloride 102.0 mmol/L (98-107); Creatinine Clr Calc Pharmacy 94.7 ml/min; Globulin 2.7 gm/dl (2.5-4.0); Glucose 98.0 mg/dl (70-99(Fasting)); Potassium 4.0 mmol/L (3.5-5.1); Sodium 146.0 mmol/L (136-145); Total Protein 7.4 gm/dl (6.0-8.3)
[2025-05-08 09:00] LABS: Acetaminophen < 3 ug/ml (10-30); Salicylate < 3.0 mg/dl (3.0-30)
[2025-05-08 09:02] LABS: Thyroid Stimulating Hormone 5.424 uIu/ml (0.300-4.500)
[2025-05-08] MEDS: LORazepam 1 MG/1 ML SYR ED Inj Use IV STA (10:00)
--- NOTE | 2025-05-08 10:05 | History & Physical Report ---
Date of Service May 08, 2025 Assessment & Plan (1) Alcohol intoxication: (2) At risk for alcohol withdrawal: (3) History of seizure due to alcohol withdrawal: (4) Depression: (5) Anxiety: Plan Patient is a 44-year-old female with past medical history significant for major depressive disorder, anxiety, ADHD, tobacco use disorder, significant alcohol abuse, alcoholic hepatitis, alcohol-induced acute pancreatitis and alcohol withdrawal seizures who presented to the ED with alcohol intoxication and request for detoxification. Multiple prior confinements under our service for alcohol intoxication and request for detoxification. Previously evaluated by psychiatry: recommended AA involvement in addition to inpatient rehabilitation services/placement. Also consideration for placement at a dual-diagnosis rehabilitation facility in order to address both her mental health issues and alcohol abuse. Patient has repeatedly declined inpatient rehabilitation services. #Alcohol intoxication #At-risk for alcohol withdrawal #History of alcohol withdrawal seizures #Alcohol-induced hepatitis Admits to consuming 1L vodka/day Last drink ~5AM this morning: "couple shots of vodka" per pt EtOH level 348.7 on admission Rest of urine tox screen neg -Pt denies any additional substance abuse C/o BUE tremors, anxiety and restlessness --> clearly visible on exam Tachycardic but otherwise VSS on admission TSH elevated at 5.424 -Likely related to alcohol abuse -Check FT4; recommend further w/u as an OP Additional labs appear stable, including LFTs Prior h/o alcohol w/d seizures -Pt unable to recall when last one occurred: states "its been awhile" Seizure precautions Phenobarbital taper w/ PRN IV Ativan per AWSS protocol -Close monitoring on PCU Thiamine, folic acid Denies any SI, thoughts of hurting self -Hold off on formal psych consult for now -? may benefit from behavioral health liaison visit to discussion ? inpt rehab options --> pt previously denied this LR ordered Fall precautions Holding home Topamax, gabapentin 2/2 potential drug interactions w/ phenobarbital #Depression #Anxiety Continue Cymbalta Continue PRN Atarax -Check routine EKG to monitor QTc length given prior h/o prolongation #Hypernatremia Na 146 Likely 2/2 poor po intake, LR onboard --> continue to monitor DVT Prophylaxis: SQ Lovenox Code Status: FULL CODE Disposition: Admit to PCU Patient seen in collaboration with Dr. Margaria. Please see addendum. I spent a total of 60 minutes coordinating, documenting, and providing care for this patient excluding time spent in the performance of separately billed services or time spent by another provider/QHP. This included personally reviewing all current laboratories and imaging studies, medical reconciliation, outpatient chart review and discussion with specialists. This chart was completed in part utilizing Speech Voice Recognition Software. Grammatical errors, random word insertions, pronoun errors, and incomplete sentences are an occasional consequence of this system due to software limitations, ambient noise, and hardware issues. Any formal questions or concerns about the content, text, or information contained within the body of this dictation should be directly addressed to the provider for clarification. History of Present Illness Chief Complaint: Alcohol intoxication, requesting detoxification Primary Care Provider: Aj Gaston MD Patient is a 44-year-old female with past medical history significant for major depressive disorder, anxiety, ADHD, tobacco use disorder, significant alcohol abuse, alcoholic hepatitis, alcohol-induced acute pancreatitis and alcohol withdrawal seizures who presented to the ED with alcohol intoxication and request for detoxification. History obtained from discussion with the ED provider, conversation with the patient/family friend at bedside and extensive associated chart review. Multiple prior confinements under our service for alcohol intoxication and request for detoxification. Previously evaluated by psychiatry: recommended AA involvement in addition to inpatient rehabilitation services/placement. Also consideration for placement at a dual-diagnosis rehabilitation facility in order to address both her mental health issues and alcohol abuse. Patient has repeatedly declined inpatient rehabilitation services. Admits to a period of sobriety from alcohol following her last admission this past December. This lasted approximately 4-6 weeks and then she relapsed again. States she typically consumes approximately 1L of vodka per day. Last consumed alcoholic beverage this morning around 5AM which consisted of "a few shots of vodka." Has been experiencing anorexia, N/V and extremity tremors since her last drink. Has a history of alcohol withdrawal seizures. Cannot exactly recall when her last alcohol withdrawal seizure was but states "its been a while." Admits to feeling very anxious and restless. Worried she will have an alcohol withdrawal seizure again. Having some palpitations but denies any cough or SOB. Has not taken any of her home medications for the "past several days" per a family friend at bedside. Mentions experiencing "tunnel vision" and "spots" in her vision in the ED which she states occurred prior to the onset of her last alcohol withdrawal seizure. Denies any SI or HI. Patient mentions that she was supposed to start an "intensive outpatient rehabilitation program" through [facility] today. States this was to address both her mental health issues and her alcohol abuse. 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 Allergies Allergy/AdvReac Type Severity Reaction Status Date / Time nickel Allergy Mild Rash Verified 01/10/25 20:33 Home Medications Medication Instructions Recorded Confirmed Type amitriptyline 50 mg tablet 125 mg PO HS PRN Insomnia 11/27/24 05/08/25 History duloxetine 60 mg capsule,delayed 60 mg PO QAM 11/27/24 05/08/25 History release gabapentin 400 mg capsule 400 mg PO TID 11/27/24 05/08/25 History hydroxyzine pamoate 100 mg capsule 100 mg PO QID PRN Anxiety 11/27/24 05/08/25 History lorazepam 1 mg tablet 1 mg PO DAILY PRN Anxiety 11/27/24 05/08/25 History topiramate 100 mg tablet 100 mg PO TID 11/27/24 05/08/25 History pantoprazole 40 mg tablet,delayed 40 mg PO QAM #30 tabs 12/01/24 05/08/25 Rx release acetaminophen 500 mg tablet 500 mg PO Q6H PRN PAIN/FEVER 01/10/25 05/08/25 History (Tylenol Extra Strength) baclofen 10 mg tablet 10 mg PO TID Muscle Spasms 01/10/25 05/08/25 History diclofenac sodium 75 mg 75 mg PO BID Back Pain 01/10/25 05/08/25 History tablet,delayed release norethindrone 1 mg-ethinyl 1 tab PO DAILY 01/10/25 05/08/25 History estradiol 10 mcg (24)-iron 10 mcg(2) tablet (Lo Loestrin Fe) topiramate 25 mg tablet 25 mg PO BID 01/10/25 05/08/25 History folic acid 1 mg tablet 1 mg PO QAM #30 tabs 01/12/25 05/08/25 Rx multivitamin with folic acid 400 1 tab PO QAM #30 tabs 01/12/25 05/08/25 Rx mcg tablet (Daily-Susan (with folic acid)) nicotine 7 mg/24 hr daily 1 patch transdermal QAM #14 ea 01/12/25 05/08/25 Rx transdermal patch thiamine HCl (vitamin B1) 100 mg 100 mg PO QAM #30 tabs 01/12/25 05/08/25 Rx tablet Past Med/Surg History Problem List History of seizure due to alcohol withdrawal At risk for alcohol withdrawal 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 Acute dehydration (Acute) Vomiting (Acute) Alcohol abuse (Acute) Alcohol intoxication (Acute) PTSD (post-traumatic stress disorder) Alcohol use disorder Back pain (Acute) Alcohol intoxication (Acute) ZUHAIR (acute kidney injury) (Acute) Acute dehydration (Acute) Nausea & vomiting (Acute) History of alcohol dependence (Acute) Acute alcoholic pancreatitis (Acute) Pancreatitis without necrosis or infection Vomiting (Acute) UZHAIR (acute kidney injury) (Acute) Alcohol withdrawal (Acute) Alcohol abuse (Acute) Hypomagnesemia (Acute) Tachycardia (Acute) Alcohol withdrawal Alcoholic ketoacidosis (Acute) Contusion (Acute) Alcoholic intoxication (Acute) Alcohol abuse (Acute) Weakness (Acute) Hypomagnesemia (Acute) Hallucinations (Acute) Alcohol abuse (Acute) S/P nasal surgery septoplasty and rhinoplasty-both w/Dr. Castañeda Allergic rhinitis Abnormal uterine bleeding ADD (attention deficit disorder) Insomnia Restless leg Anxiety and depression (Chronic) Fatty liver (Chronic) Alcohol dependence (Chronic) Medical History Tobacco use disorder Intractable nausea and vomiting Depression Anxiety Surgical History H/O wisdom tooth extraction Family History Aunt Breast cancer, Onset Age: 65 paternal Asthma maternal Grandfather (Paternal) Prostate cancer Aunt Allergies maternal Family/Other Allergies cousins Asthma cousins Other No family history of adverse response to anesthesia No family history of bleeding disorder Denies family history of Ovarian cancer Colorectal cancer Social History Smoking Status: Current every day smoker Tobacco Type: E-cigarettes / Vaping Age Started Using Tobacco: 20; packs per day: 0.5; Cigarettes Per Day: 4; Second Hand Exposure: No; Do You Dip or Chew Tobacco: No; Hx Alcohol Use: Yes Alcohol type: hard liquor Hx Substance Use: Yes Preferred Language: American 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 Ability: Effective Executive Vice President Required: No Beliefs That Will Affect Care: None marital status: Single Current Living Situation: Alone Feels Safe at Home: Yes Assistive Devices: None Review of Systems Review of Systems: At least ten systems reviewed and negative, except as noted in the HPI. Physical Exam Physical Exam: General: F, sitting up in bed, A&Ox3, appears very anxious and restless, family friend at bedside HEENT: Normocephalic, atraumatic, oropharynx somewhat dry Respiratory: Normal respiratory effort, CTAB Cardiovascular: Tachycardic rate (~102bpm), regular rhythm, no BLE edema Abdomen/GI: Active bowel sounds, soft/nondistended, nontender to palpation in all quadrants Extremities/MSK: Mild BUE tremors, actively moves all extremities Neurologic: No overt focal deficits, CN's II-XI not formally tested but appear grossly intact bilaterally Results & Data Results & Data Vital Signs (Past 12 Hours) Vital Signs Temp Pulse Resp BP Pulse Ox O2 Del Method 05/08/25 09:30 97 H 15 97 05/08/25 09:27 104 H 16 94 05/08/25 09:00 116/82 05/08/25 09:00 116/82 05/08/25 09:00 116/82 05/08/25 09:00 94 H 19 94 05/08/25 08:51 98 H 16 98 05/08/25 08:12 94 H 16 99 05/08/25 07:57 100 H 14 96 05/08/25 07:45 17 05/08/25 07:45 Room Air 05/08/25 07:37 97 H 05/08/25 07:15 36.4 C L 99 H 20 121/89 98 Room Air Laboratory Results Short CBC 05/08/25 Range/Units 08:05 WBC 4.50 L (4.8-10.8) K/ul Hgb 13.1 (12.0-16.0) g/dl Hct 36.6 L (37.0-47.0) % Plt Count 274 (130-400) K/uL BMP 05/08/25 08:05 Sodium 146 H Potassium 4.0 Chloride 102 Carbon Dioxide 25 BUN 7 Creatinine 0.66 Glucose 98 Calcium 8.5 L Liver Function 05/08/25 Range/Units 08:05 Total Bilirubin 0.4 (0.2-1.0) mg/dl AST 272 H (13-39) U/L ALT 129 H (7-52) U/L Alkaline Phosphatase 66 (34-104) U/L Albumin 4.7 (3.4-5.0) gm/dl Urine 05/08/25 Range/Units 07:35 Urine Color Yellow Urine Appearance Clear (Clear) Urine pH 5.5 (4.5-7.5) Ur Specific [place] 1.013 (1.000-1.030) Urine Protein Trace H (Negative) Urine Glucose (UA) Negative (Negative) Medications Administered Discontinued Medications Sodium Chloride (Nss) 1,000 mls @ 999 mls/hr IV .Q1H1M ONE Stop: 05/08/25 09:04 Last Admin: 05/08/25 08:12 Dose: 999 mls/hr Documented By: MOI Lorazepam (Lorazepam 1 Mg/1 Ml Syr Ed Inj Use) 1 mg IV ONE STA Stop: 05/08/25 09:50 Last Admin: 05/08/25 10:00 Dose: 1 mg Documented By: MOI Ondansetron HCl (Ondansetron Inj 2 Mg/Ml 2 Ml Vial) 4 mg IV NOW STA Stop: 05/08/25 08:05 Last Admin: 05/08/25 08:12 Dose: 4 mg Documented By: MOI Code Status & VTE Plan Code Status FULL CODE Supervising Physician Co-Signing Physician Notes Patient seen and examined at bedside. Patient familiar to this provider from prior admissions. last admission patient has strong recommendation for inpatient dual rehab but patient declined. Was sober for a month at home, relapsed due to miscarriage. Drinking a fifth of vodka daily. Headache, tremulousness per patient. On exam, tremulous, mild speech slurring noted. Some ataxia noted. Patient presenting with alcohol intoxication (indicated by elevated blood alcohol level), and now early stages of high risk alcohol withdrawal (hx of seizures). Start phenobarbital IM, AWSS tracking with ativan prn. Admit to PCU given high risk for delirium tremens. Start thiamine, folic acid, LR. Hold home sedating medications. Strongly recommended to patient and family member inpatient dual use rehab given frequent relapses, recent attempt at sobriety outpatient with failure. I have seen and discussed the case with the collaborating advanced practitioner. I agree with the above H&P. I have reviewed and confirmed the patients medical history, the findings on physical examination, and the patients diagnosis and treatment plan with Ivet Ferrari PA-C and agree with the information documented. I spent a total of 30 minutes coordinating, documenting, and providing care for this patient excluding time spent in the performance of separately billed services. All of the aforementioned completed outside of collaborating with the assigned advanced practitioner for a full treatment plan. I have reviewed the advanced practitioner's documentation, and I agree with, and take responsibility for the plan of care (1) Alcohol intoxication Complication of substance-induced condition: with delirium Qualified Code(s): F10.921 - Alcohol use, unspecified with intoxication delirium (4) Depression Depression Type: unspecified Qualified Code(s): F32.A - Depression, unspecified
[2025-05-08] MEDS ORDERED: PHENobarbital PO Alcohol Withdrawal PO STA (10:10)
[2025-05-08] MEDS ORDERED: LORazepam 1 MG TAB PO PRN ×2 (10:19)
[2025-05-08] MEDS ORDERED: Ativan PO Alcohol Withdrawal--Active Protocol PO PRN (10:19)
[2025-05-08] MEDS: LACTATED RINGER'S 1,000 ML IV SCH (10:47)
[2025-05-08] MEDS ORDERED: POLYETHYLENE (MIRALAX) 17 GM PACK PO PRN (11:11)
[2025-05-08] MEDS ORDERED: MAGNESIUM HYDROXIDE SUSP 30 ML UDC PO PRN (11:11)
[2025-05-08] MEDS: ENOXAPARIN INJ 40 MG/0.4 ML SYR SQ SCH (13:12)
--- NOTE | 2025-05-08 13:33 | Electrocardiogram Report ---
Test Reason : Blood Pressure : */* mmHG Vent. Rate : 95 BPM Atrial Rate : 95 BPM P-R Int : 156 ms QRS Dur : 76 ms QT Int : 380 ms P-R-T Axes : -20 -4 15 degrees QTcB Int : 477 ms Normal sinus rhythm Low voltage QRS Cannot rule out Inferior infarct , age undetermined Poor R wave progression, consider anterior ID vs. lead placement vs. LVH Abnormal ECG When compared with ECG of 27-Nov-2024 17:54, Questionable change in QRS axis Nonspecific T wave abnormality no longer evident in Lateral leads Confirmed by Ramon Liu ([id number]) on 05/08/2025 1:33:03 PM Referred By: REFERRED SELF Confirmed By: Ramon Liu
[2025-05-08] MEDS: ONDANSETRON INJ 2 MG/ML 2 ML VIAL IV PRN (14:16)
[2025-05-08] MEDS: LORazepam 1 MG TAB PO PRN (14:29)
[2025-05-08] MEDS: ACETAMINOPHEN 325 MG TAB PO PRN (15:30)
[2025-05-08] MEDS: KETOROLAC TROMETHAMINE 15 MG/ML VIAL IV PRN (16:48)
[2025-05-08] MEDS: LIDOCAINE 5% 1 PATCH TD STA (16:49)
[2025-05-08] MEDS: REMOVE LIDODERM PATCH SCH (20:38)
[2025-05-09 06:37] LABS: Hematocrit (blood only) 31.0 % (37.0-47.0); Hemoglobin 10.8 g/dl (12.0-16.0); Immature Granulocytes # (auto) 0.02 K/uL (0.01-0.20); Immature Granulocytes % (auto) 0.5 %; Mean Corpuscular Hemoglobin 33.5 pg (25.0-34.0); Mean Corpuscular Volume 96.3 fL (80.0-100.0); Platelet Count 197 K/uL (130-400); RDW Standard Deviation 54.2 fL (36.4-46.3); Red Blood Count 3.22 M/uL (4.20-5.40); White Blood Count 4.26 K/ul (4.8-10.8)
[2025-05-09 07:08] LABS: Alanine Aminotransferase 79.0 U/L (7-52); Albumin Globulin Ratio 1.7 (0.9-2); Alkaline Phosphatase 52.0 U/L (34-104); Anion Gap 6.0 (3-11); Bilirubin,Total 0.9 mg/dl (0.2-1.0); Blood Urea Nitrogen 7.0 mg/dl (6-23); Calcium 7.4 mg/dl (8.6-10.3); Carbon Dioxide 29.0 mmol/L (21-32); Chloride 99.0 mmol/L (98-107); Creatinine Clr Calc Pharmacy 105.5 ml/min; Globulin 2.1 gm/dl (2.5-4.0); Glucose 110.0 mg/dl (70-99(Fasting)); Magnesium 1.4 mg/dl (1.7-2.4); Potassium 3.9 mmol/L (3.5-5.1); Sodium 134.0 mmol/L (136-145); Total Protein 5.7 gm/dl (6.0-8.3)
[2025-05-09] MEDS: MULTIVITAMIN TAB PO SCH (09:55)
[2025-05-09] MEDS: THIAMINE HCL 100 MG TAB PO SCH (09:55)
[2025-05-09] MEDS: FOLIC ACID 1 MG TAB PO SCH (09:55)
[2025-05-09] MEDS: MAGNESIUM SULFATE / D5W 1 GM/100 ML BAG IV SCH (10:14)
--- NOTE | 2025-05-09 12:39 | Hospitalist Progress Note ---
Date of Service May 09, 2025 Assessment & Plan (1) Alcohol intoxication: (2) At risk for alcohol withdrawal: (3) History of seizure due to alcohol withdrawal: (4) Depression: (5) Anxiety: Plan Patient is a 44-year-old female with past medical history significant for major depressive disorder, anxiety, ADHD, tobacco use disorder, significant alcohol abuse, alcoholic hepatitis, alcohol-induced acute pancreatitis and alcohol withdrawal seizures who presented to the ED with alcohol intoxication and request for detoxification. Multiple prior confinements under our service for alcohol intoxication and request for detoxification. Previously evaluated by psychiatry: recommended AA involvement in addition to inpatient rehabilitation services/placement. Also consideration for placement at a dual-diagnosis rehabilitation facility in order to address both her mental health issues and alcohol abuse. Patient has repeatedly declined inpatient rehabilitation services. #Alcohol intoxication #At-risk for alcohol withdrawal #History of alcohol withdrawal seizures #Alcohol-induced hepatitis Admits to consuming 1L vodka/day Last drink ~5AM this morning: "couple shots of vodka" per pt EtOH level 348.7 on admission Rest of urine tox screen neg -Pt denies any additional substance abuse C/o BUE tremors, anxiety and restlessness --> clearly visible on exam Tachycardic but otherwise VSS on admission TSH elevated at 5.424 -Likely related to alcohol abuse -Check FT4; recommend further w/u as an OP Prior h/o alcohol w/d seizures -Pt unable to recall when last one occurred: states "its been awhile" Seizure precautions Phenobarbital taper w/ PRN IV Ativan per AWSS protocol Thiamine, folic acid Denies any SI, thoughts of hurting self -Hold off on formal psych consult for now LR ordered Holding home Topamax, gabapentin 2/2 potential drug interactions w/ phenobarbital Clinically much better and complains perhaps some back pain which seems to be chronic Denies any signs and does not have any symptoms of withdrawal Will continue replacement of electrolytes as needed Advised increased mobilization likely discharge tomorrow Acute on chronic back pain Has been complaining of more pain with radiation to the legs Follows up as an outpatient with the pain therapist Will continue with intravenous Toradol as needed No significant findings of radiculopathy on examination Strongly advised to quit drinking #Depression #Anxiety Continue Cymbalta Continue PRN Atarax -Check routine EKG to monitor QTc length given prior h/o prolongation #Hypernatremia Na 146 Likely 2/2 poor po intake, LR onboard --> continue to monitor Sodium level has been normalized DVT Prophylaxis: SQ Lovenox Code Status: FULL CODE Disposition: Admit to PCU Admission and Anticipated Discharge Date Admission Date: May 08, 2025 Subjective 05/09/2025 The patient was seen and examined in telemetry unit She has been complaining of more of back pain with radiation to the legs Denies any palpitation and tremors She does not have any bladder and bowel problem Review of Systems Review of Systems: All systems reviewed and are unremarkable except as noted below Physical Exam Physical Exam: Lying in bed with no acute distress due to ongoing back pain Constitutional: + ill appearing and average body habitus Eyes: PERRL, conjunctivae normal, anicteric sclerae ENMT: external ear and nose normal, oropharynx normal Neck: trachea midline, no thyromegaly Respiratory: no respiratory distress Auscultation: lungs clear to auscultation bilaterally Cardiovascular: Rate/Rhythm: regular rate and regular rhythm; not tachycardic Heart Sounds: normal S1 and normal S2; no murmur Extremities: no edema Gastrointestinal (Abdomen): Inspection/Auscultation: normal bowel sounds; abdomen not distended Percussion/Palpation: abdomen soft; abdomen nontender Musculoskeletal: No acute arthritis involving any of the joint Neurologic: normal touch/pain/proprioception and moves all extremities; no focal motor deficits Psychiatric: A+Ox3, euthymic affect Lymphatic: no cervical or axillary lymphadenopathy Results & Data Results & Data Vital Signs (Past 12 Hours) Vital Signs Temp Pulse Resp BP BP Pulse Ox O2 Del Method 05/09/25 12:11 36.8 C 63 16 111/77 98 Room Air 05/09/25 10:30 36.7 C 69 18 106/73 97 Room Air 05/09/25 07:12 36.8 C 88 18 109/80 97 Room Air 05/09/25 03:29 36.6 C 59 L 15 113/77 96 Room Air Laboratory Results Short CBC 05/09/25 Range/Units 05:56 WBC 4.26 L (4.8-10.8) K/ul Hgb 10.8 L (12.0-16.0) g/dl Hct 31.0 L (37.0-47.0) % Plt Count 197 (130-400) K/uL BMP 05/09/25 05:56 Sodium 134 L D Potassium 3.9 Chloride 99 Carbon Dioxide 29 BUN 7 Creatinine 0.60 Glucose 110 H Calcium 7.4 L Liver Function 05/09/25 Range/Units 05:56 Total Bilirubin 0.9 D (0.2-1.0) mg/dl AST 108 H (13-39) U/L ALT 79 H (7-52) U/L Alkaline Phosphatase 52 (34-104) U/L Albumin 3.6 (3.4-5.0) gm/dl Medications Administered Current Inpatient Medications Acetaminophen (Acetaminophen 325 Mg Tab) 650 mg PO Q4H PRN PRN Reason: Pain or Fever Stop: 06/07/25 11:10 Last Admin: 05/08/25 15:30 Dose: 650 mg Duloxetine HCl (Duloxetine Hcl 60 Mg Cap) 60 mg PO [facility] Stop: 06/08/25 08:59 Last Admin: 05/09/25 09:55 Dose: 60 mg Enoxaparin Sodium (Enoxaparin Inj 40 Mg/0.4 Ml Syr) 40 mg SQ Q24H [facility] Stop: 06/07/25 11:29 Last Admin: 05/09/25 12:06 Dose: 40 mg Folic Acid (Folic Acid 1 Mg Tab) [facility] Stop: 06/08/25 08:59 Last Admin: 05/09/25 09:55 Dose: 1 mg Ketorolac Tromethamine (Ketorolac Tromethamine 15 Mg/Ml Vial) 15 mg IV Q6H PRN PRN Reason: Severe Pain (Scale 7, 8, 9,10) Stop: 05/13/25 16:28 Last Admin: 05/08/25 23:17 Dose: 15 mg Lorazepam (Lorazepam 1 Mg Tab) 1 mg PO UD PRN; Protocol PRN Reason: EtOH Withdrawal AWSS Score 6,7 Stop: 06/07/25 10:18 Lorazepam (Lorazepam 1 Mg Tab) 3 mg PO ONCE PRN; Protocol PRN Reason: EtOH Withdrawal AWSS Score 10 & above Lorazepam (Lorazepam 1 Mg Tab) 2 mg PO UD PRN; Protocol PRN Reason: EtOH Withdrawal AWSS Score 8,9 Stop: 06/07/25 10:18 Last Admin: 05/08/25 14:29 Dose: 2 mg Magnesium Hydroxide (Magnesium Hydroxide Susp 30 Ml Udc) 30 ml PO Q12H PRN PRN Reason: Constipation Stop: 06/07/25 11:10 Miscellaneous (Remove Lidoderm Patch) 1 each N/A DAILY@2100 [facility] Stop: 06/07/25 20:59 Last Admin: 05/08/25 20:38 Dose: 1 each Multivitamins (Multivitamin Tab) 1 tab PO QAM [facility] Stop: 06/08/25 08:59 Last Admin: 05/09/25 09:55 Dose: 1 tab Ondansetron HCl (Ondansetron Inj 2 Mg/Ml 2 Ml Vial) 4 mg IV Q6H PRN PRN Reason: Nausea Stop: 06/07/25 11:10 Last Admin: 05/09/25 10:28 Dose: 4 mg Oxycodone HCl (Oxycodone Hcl Ir 5 Mg Tab (Immediate Release)) 5 mg PO Q4H PRN PRN Reason: Pain Stop: 05/22/25 20:23 Last Admin: 05/09/25 10:27 Dose: 5 mg Pantoprazole Sodium (Pantoprazole 40 Mg Tab) 40 mg PO QAM [facility] Stop: 06/08/25 08:59 Last Admin: 05/09/25 09:55 Dose: 40 mg Phenobarbital (Phenobarbital 30 Mg Tab) 60 mg PO Q12H [facility] Stop: 05/09/25 16:16 Last Admin: 05/09/25 03:43 Dose: Not Given Phenobarbital (Phenobarbital 30 Mg Tab) 30 mg PO Q12H [facility] Stop: 05/10/25 16:16 Phenobarbital (Phenobarbital 30 Mg Tab) 30 mg PO Q24H [facility] Stop: 05/11/25 16:16 Polyethylene Glycol (Polyethylene (Miralax) 17 Gm Pack) 17 gm PO DAILY PRN PRN Reason: Constipation Stop: 06/07/25 11:10 Thiamine HCl (Thiamine Hcl 100 Mg Tab) 100 mg PO QAM [facility] Stop: 06/08/25 08:59 Last Admin: 05/09/25 09:55 Dose: 100 mg (1) Alcohol intoxication Complication of substance-induced condition: uncomplicated Qualified Code(s): F10.920 - Alcohol use, unspecified with intoxication, uncomplicated (4) Depression Depression Type: unspecified Qualified Code(s): F32.A - Depression, unspecified
[2025-05-09] MEDS: BACLOFEN 10 MG TAB PO SCH (14:02)
[2025-05-10 02:46] VITALS: TEMP 97.9
[2025-05-10 07:03] LABS: Alanine Aminotransferase 69.0 U/L (7-52); Albumin Globulin Ratio 1.6 (0.9-2); Alkaline Phosphatase 65.0 U/L (34-104); Anion Gap 4.0 (3-11); Bilirubin,Total 0.7 mg/dl (0.2-1.0); Blood Urea Nitrogen 5.0 mg/dl (6-23); Calcium 8.2 mg/dl (8.6-10.3); Carbon Dioxide 29.0 mmol/L (21-32); Chloride 101.0 mmol/L (98-107); Creatinine Clr Calc Pharmacy 103.7 ml/min; Globulin 2.3 gm/dl (2.5-4.0); Glucose 91.0 mg/dl (70-99(Fasting)); Magnesium 2.1 mg/dl (1.7-2.4); Potassium 4.3 mmol/L (3.5-5.1); Sodium 134.0 mmol/L (136-145); Total Protein 6.0 gm/dl (6.0-8.3)
--- NOTE | 2025-05-10 08:42 | Hospitalist Progress Note ---
Date of Service May 10, 2025 Assessment & Plan (1) Alcohol intoxication: (2) At risk for alcohol withdrawal: (3) History of seizure due to alcohol withdrawal: (4) Depression: (5) Anxiety: Plan Patient is a 44-year-old female with past medical history significant for major depressive disorder, anxiety, ADHD, tobacco use disorder, significant alcohol abuse, alcoholic hepatitis, alcohol-induced acute pancreatitis and alcohol withdrawal seizures who presented to the ED with alcohol intoxication and request for detoxification. Multiple prior confinements under our service for alcohol intoxication and request for detoxification. Previously evaluated by psychiatry: recommended AA involvement in addition to inpatient rehabilitation services/placement. Also consideration for placement at a dual-diagnosis rehabilitation facility in order to address both her mental health issues and alcohol abuse. Patient has repeatedly declined inpatient rehabilitation services. #Alcohol intoxication #At-risk for alcohol withdrawal #History of alcohol withdrawal seizures #Alcohol-induced hepatitis Admits to consuming 1L vodka/day Last drink ~5AM this morning: "couple shots of vodka" per pt EtOH level 348.7 on admission Rest of urine tox screen neg -Pt denies any additional substance abuse C/o BUE tremors, anxiety and restlessness --> clearly visible on exam Tachycardic but otherwise VSS on admission TSH elevated at 5.424 -Likely related to alcohol abuse -Check FT4; recommend further w/u as an OP Prior h/o alcohol w/d seizures -Pt unable to recall when last one occurred: states "its been awhile" Seizure precautions Phenobarbital taper w/ PRN IV Ativan per AWSS protocol Thiamine, folic acid Denies any SI, thoughts of hurting self -Hold off on formal psych consult for now LR ordered Holding home Topamax, gabapentin 2/2 potential drug interactions w/ phenobarbital Clinically much better and complains perhaps some back pain which seems to be chronic Denies any signs and does not have any symptoms of withdrawal Will continue replacement of electrolytes as needed Remains hemodynamically stable and asymptomatic with ongoing back pain She does not have any symptoms of withdrawal and will be discharged home this morning Acute on chronic back pain Has been complaining of more pain with radiation to the legs Follows up as an outpatient with the pain therapist Will continue with intravenous Toradol as needed No significant findings of radiculopathy on examination Her back pain seems to be reasonably controlled with current medications and she was advised to keep her appointment with her pain therapist She will be discharged this morning #Depression #Anxiety Continue Cymbalta Continue PRN Atarax -Check routine EKG to monitor QTc length given prior h/o prolongation #Hypernatremia Na 146 Likely 2/2 poor po intake, LR onboard --> continue to monitor Sodium level has been normalized DVT Prophylaxis: SQ Lovenox Code Status: FULL CODE Disposition: Admit to PCU Admission and Anticipated Discharge Date Admission Date: May 08, 2025 Subjective 05/09/2025 The patient was seen and examined in telemetry unit She has been complaining of more of back pain with radiation to the legs Denies any palpitation and tremors She does not have any bladder and bowel problem 05/10/2025 The patient was seen and examined in telemetry unit She has been feeling much better but complains of significant back pain without radiation Denies any more tremors, palpitation, nausea no vomiting She has been ambulating without any difficulties and she wants to be discharged this morning Review of Systems Review of Systems: All systems reviewed and are unremarkable except as noted below Physical Exam Physical Exam: Lying in bed with no acute distress due to ongoing back pain Constitutional: + ill appearing and average body habitus Eyes: PERRL, conjunctivae normal, anicteric sclerae ENMT: external ear and nose normal, oropharynx normal Neck: trachea midline, no thyromegaly Respiratory: no respiratory distress Auscultation: lungs clear to auscultation bilaterally Cardiovascular: Rate/Rhythm: regular rate and regular rhythm; not tachycardic Heart Sounds: normal S1 and normal S2; no murmur Extremities: no edema Gastrointestinal (Abdomen): Inspection/Auscultation: normal bowel sounds; abdomen not distended Percussion/Palpation: abdomen soft; abdomen nontender Neurologic: normal touch/pain/proprioception and moves all extremities; no focal motor deficits Psychiatric: A+Ox3, euthymic affect Lymphatic: no cervical or axillary lymphadenopathy Results & Data Results & Data Vital Signs (Past 12 Hours) Vital Signs Temp Pulse Resp BP Pulse Ox O2 Del Method 05/10/25 07:31 36.6 C 79 23 110/76 96 Room Air 05/10/25 02:20 36.6 C 81 16 132/98 96 Room Air 05/09/25 22:45 36.7 C 84 18 140/93 100 Room Air Laboratory Results BMP 05/10/25 06:18 Sodium 134 L Potassium 4.3 Chloride 101 Carbon Dioxide 29 BUN 5 L Creatinine 0.61 Glucose 91 Calcium 8.2 L Liver Function 05/10/25 Range/Units 06:18 Total Bilirubin 0.7 (0.2-1.0) mg/dl AST 82 H (13-39) U/L ALT 69 H (7-52) U/L Alkaline Phosphatase 65 (34-104) U/L Albumin 3.7 (3.4-5.0) gm/dl Medications Administered Current Inpatient Medications Acetaminophen (Acetaminophen 325 Mg Tab) 650 mg PO Q4H PRN PRN Reason: Pain or Fever Stop: 06/07/25 11:10 Last Admin: 05/10/25 02:21 Dose: 650 mg Baclofen (Baclofen 10 Mg Tab) 10 mg PO TID [facility] Stop: 06/08/25 13:59 Last Admin: 05/09/25 20:54 Dose: 10 mg Duloxetine HCl (Duloxetine Hcl 60 Mg Cap) 60 mg PO QAM [facility] Stop: 06/08/25 08:59 Last Admin: 05/09/25 09:55 Dose: 60 mg Enoxaparin Sodium (Enoxaparin Inj 40 Mg/0.4 Ml Syr) 40 mg SQ Q24H [facility] Stop: 06/07/25 11:29 Last Admin: 05/09/25 12:06 Dose: 40 mg Folic Acid (Folic Acid 1 Mg Tab) 1 mg PO QAM [facility] Stop: 06/08/25 08:59 Last Admin: 05/09/25 09:55 Dose: 1 mg Ketorolac Tromethamine (Ketorolac Tromethamine 15 Mg/Ml Vial) 15 mg IV Q6H PRN PRN Reason: Severe Pain (Scale 7, 8, 9,10) Stop: 05/13/25 16:28 Last Admin: 05/08/25 23:17 Dose: 15 mg Lorazepam (Lorazepam 1 Mg Tab) 1 mg PO DAILY PRN PRN Reason: Anxiety Stop: 06/08/25 13:41 Magnesium Hydroxide (Magnesium Hydroxide Susp 30 Ml Udc) 30 ml PO Q12H PRN PRN Reason: Constipation Stop: 06/07/25 11:10 Miscellaneous (Remove Lidoderm Patch) 1 each N/A DAILY@2100 [facility] Stop: 06/07/25 20:59 Last Admin: 05/09/25 19:49 Dose: 1 each Multivitamins ([facility]ivitamin Tab) [facility] Stop: 06/08/25 08:59 Last Admin: 05/09/25 09:55 Dose: 1 tab Ondansetron HCl (Ondansetron Inj 2 Mg/Ml 2 Ml Vial) 4 mg IV Q6H PRN PRN Reason: Nausea Stop: 06/07/25 11:10 Last Admin: 05/09/25 16:35 Dose: 4 mg Oxycodone HCl (Oxycodone Hcl Ir 5 Mg Tab (Immediate Release)) 5 mg PO Q4H PRN PRN Reason: Pain Stop: 05/22/25 20:23 Last Admin: 05/10/25 06:28 Dose: 5 mg Pantoprazole Sodium (Pantoprazole 40 Mg Tab) [facility] Stop: 06/08/25 08:59 Last Admin: 05/09/25 09:55 Dose: 40 mg Phenobarbital (Phenobarbital 30 Mg Tab) 30 mg PO Q12H [facility] Stop: 05/10/25 16:16 Last Admin: 05/10/25 03:55 Dose: Not Given Phenobarbital (Phenobarbital 30 Mg Tab) 30 mg PO Q24H [facility] Stop: 05/11/25 16:16 Polyethylene Glycol (Polyethylene (Miralax) 17 Gm Pack) 17 gm PO DAILY PRN PRN Reason: Constipation Stop: 06/07/25 11:10 Thiamine HCl (Thiamine Hcl 100 Mg Tab) [facility] Stop: 06/08/25 08:59 Last Admin: 05/09/25 09:55 Dose: 100 mg (1) Alcohol intoxication Complication of substance-induced condition: uncomplicated Qualified Code(s): F10.920 - Alcohol use, unspecified with intoxication, uncomplicated (4) Depression Depression Type: unspecified Qualified Code(s): F32.A - Depression, unspecified
[2025-05-10] MEDS: LORazepam 1 MG TAB PO PRN (08:48)
[2025-05-10 11:16] VITALS: RESP 17; O2SAT 95
[2025-05-10 12:00] VITALS: BP 106/73
[2025-05-10 12:42] VITALS: PULSE 70
--- NOTE | 2025-05-10 16:37 | Discharge Summary ---
Date of Service May 10, 2025 Admission HPI Per Admitting Provider Patient is a 44-year-old female with past medical history significant for major depressive disorder, anxiety, ADHD, tobacco use disorder, significant alcohol abuse, alcoholic hepatitis, alcohol-induced acute pancreatitis and alcohol withdrawal seizures who presented to the ED with alcohol intoxication and request for detoxification. History obtained from discussion with the ED provider, conversation with the patient/family friend at bedside and extensive associated chart review. Multiple prior confinements under our service for alcohol intoxication and request for detoxification. Previously evaluated by psychiatry: recommended AA involvement in addition to inpatient rehabilitation services/placement. Also consideration for placement at a dual-diagnosis rehabilitation facility in order to address both her mental health issues and alcohol abuse. Patient has repeatedly declined inpatient rehabilitation services. Admits to a period of sobriety from alcohol following her last admission this past December. This lasted approximately 4-6 weeks and then she relapsed again. States she typically consumes approximately 1L of vodka per day. Last consumed alcoholic beverage this morning around 5AM which consisted of "a few shots of vodka." Has been experiencing anorexia, N/V and extremity tremors since her last drink. Has a history of alcohol withdrawal seizures. Cannot exactly recall when her last alcohol withdrawal seizure was but states "its been a while." Admits to feeling very anxious and restless. Worried she will have an alcohol withdrawal seizure again. Having some palpitations but denies any cough or SOB. Has not taken any of her home medications for the "past several days" per a family friend at bedside. Mentions experiencing "tunnel vision" and "spots" in her vision in the ED which she states occurred prior to the onset of her last alcohol withdrawal seizure. Denies any SI or HI. Patient mentions that she was supposed to start an "intensive outpatient rehabilitation program" through [facility] today. States this was to address both her mental health issues and her alcohol abuse. 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 Admission Exam Per Admitting Provider Physical Exam: General: F, sitting up in bed, A&Ox3, appears very anxious and restless, family friend at bedside HEENT: Normocephalic, atraumatic, oropharynx somewhat dry Respiratory: Normal respiratory effort, CTAB Cardiovascular: Tachycardic rate (~102bpm), regular rhythm, no BLE edema Abdomen/GI: Active bowel sounds, soft/nondistended, nontender to palpation in all quadrants Extremities/MSK: Mild BUE tremors, actively moves all extremities Neurologic: No overt focal deficits, CN's II-XI not formally tested but appear grossly intact bilaterally Principal Diagnosis Alcohol intoxication, depression/anxiety, acute on chronic back pain Discharge Exam Lying in bed with no acute distress due to ongoing back pain Constitutional + ill appearing and average body habitus Eyes PERRL, conjunctivae normal, anicteric sclerae ENMT external ear and nose normal, oropharynx normal Neck trachea midline, no thyromegaly Respiratory no respiratory distress Auscultation: lungs clear to auscultation bilaterally Cardiovascular Rate/Rhythm: regular rate and regular rhythm; not tachycardic Heart Sounds: normal S1 and normal S2; no murmur Extremities: no edema Gastrointestinal (Abdomen) Inspection/Auscultation: normal bowel sounds; abdomen not distended Percussion/Palpation: abdomen soft; abdomen nontender Neurologic normal touch/pain/proprioception and moves all extremities; no focal motor deficits Psychiatric A+Ox3, euthymic affect Lymphatic no cervical or axillary lymphadenopathy Discharge Data Allergies Allergy/AdvReac Type Severity Reaction Status Date / Time nickel Allergy Mild Rash Verified 01/10/25 20:33 Consultations 05/08/25 10:03 ED Decision to Admit Stat Hospital Course (1) Alcohol intoxication: (2) At risk for alcohol withdrawal: (3) History of seizure due to alcohol withdrawal: (4) Depression: (5) Anxiety: Plan Patient is a 44-year-old female with past medical history significant for major depressive disorder, anxiety, ADHD, tobacco use disorder, significant alcohol abuse, alcoholic hepatitis, alcohol-induced acute pancreatitis and alcohol withdrawal seizures who presented to the ED with alcohol intoxication and request for detoxification. Multiple prior confinements under our service for alcohol intoxication and request for detoxification. Previously evaluated by psychiatry: recommended AA involvement in addition to inpatient rehabilitation services/placement. Also consideration for placement at a dual-diagnosis rehabilitation facility in order to address both her mental health issues and alcohol abuse. Patient has repeatedly declined inpatient rehabilitation services. #Alcohol intoxication #At-risk for alcohol withdrawal #History of alcohol withdrawal seizures #Alcohol-induced hepatitis Admits to consuming 1L vodka/day Last drink ~5AM this morning: "couple shots of vodka" per pt EtOH level 348.7 on admission Rest of urine tox screen neg -Pt denies any additional substance abuse C/o BUE tremors, anxiety and restlessness --> clearly visible on exam Tachycardic but otherwise VSS on admission TSH elevated at 5.424 -Likely related to alcohol abuse -Check FT4; recommend further w/u as an OP Prior h/o alcohol w/d seizures -Pt unable to recall when last one occurred: states "its been awhile" Seizure precautions Phenobarbital taper w/ PRN IV Ativan per AWSS protocol Thiamine, folic acid Denies any SI, thoughts of hurting self -Hold off on formal psych consult for now LR ordered Holding home Topamax, gabapentin 2/2 potential drug interactions w/ phenobarbital Clinically much better and complains perhaps some back pain which seems to be chronic Denies any signs and does not have any symptoms of withdrawal Will continue replacement of electrolytes as needed Remains hemodynamically stable and asymptomatic with ongoing back pain She does not have any symptoms of withdrawal and will be discharged home this morning Acute on chronic back pain Has been complaining of more pain with radiation to the legs Follows up as an outpatient with the pain therapist Will continue with intravenous Toradol as needed No significant findings of radiculopathy on examination Her back pain seems to be reasonably controlled with current medications and she was advised to keep her appointment with her pain therapist She will be discharged this morning #Depression #Anxiety Continue Cymbalta Continue PRN Atarax -Check routine EKG to monitor QTc length given prior h/o prolongation #Hypernatremia Na 146 Likely 2/2 poor po intake, LR onboard --> continue to monitor Sodium level has been normalized DVT Prophylaxis: SQ Lovenox Code Status: FULL CODE Disposition: Admit to PCU Total Time Total Time Spent Total Time Spent (In Minutes): 35 Minutes Discharge Plan Discharge Items Patient Disposition: Home - Self-Care Reason For Visit: ALCOHOL INTOXICATION, DETOX REQUEST Discharge Diagnosis: Alcohol intoxication, depression/anxiety, acute on chronic back pain Condition on Discharge: Good Activity: Resume your previous activity Non-emergency contact: Primary Care Provider Call non-emergency contact if: you have any medication questions and your symptoms worsen Follow-up/Referrals: Aj Gaston MD [Primary Care Provider] - (Date & Time 05/11/2025 1:00 PM Provider: Zuri Butt PA-C [facility] *already scheduled appointment*) Diet: Regular Addtl Attending Provider Instructions: Please take precautions to avoid falls Strongly advised to quit drinking and keep appointment with outpatient rehab program Please keep your appointment with your healthcare provider Pending Studies at Discharge: No Stand-Alone Forms: My [facility], Work/School Release, Smoking Cessation Medications and DC Order Prescriptions: New oxycodone 5 mg Tablet 5 mg PO Q6H PRN (Reason: pain) Qty: 14 0RF Continued hydroxyzine pamoate 100 mg capsule 100 mg PO QID PRN (Reason: Anxiety) gabapentin 400 mg capsule 400 mg PO TID amitriptyline 50 mg tablet 125 mg PO HS PRN (Reason: Insomnia) topiramate 100 mg tablet 100 mg PO TID duloxetine 60 mg capsule,delayed release(DR/EC) 60 mg PO QAM lorazepam 1 mg tablet 1 mg PO DAILY PRN (Reason: Anxiety) pantoprazole 40 mg Tablet,Delayed Release (Dr/Ec) 40 mg PO QAM Qty: 30 0RF topiramate 25 mg tablet 25 mg PO BID acetaminophen [Tylenol Extra Strength] 500 mg Tablet 500 mg PO Q6H PRN (Reason: PAIN/FEVER) Lo Loestrin Fe 1 mg-10 mcg (24)/10 mcg (2) Tablet 1 tab PO DAILY baclofen 10 mg tablet 10 mg PO TID diclofenac sodium 75 mg tablet,delayed release (DR/EC) 75 mg PO BID thiamine HCl (vitamin B1) 100 mg Tablet 100 mg PO QAM Qty: 30 0RF folic acid 1 mg Tablet 1 mg PO QAM Qty: 30 0RF nicotine 7 mg/24 hr Patch 24 Hour 1 patch transdermal QAM Qty: 14 0RF multivitamin with folic acid [Daily-Susan (with folic acid)] 400 mcg Tablet 1 tab PO QAM Qty: 30 0RF Discharge Orders: Discharge Order (Routine); Ordered 05/10/25 Ordered By: Kandice Melara/Other Patient Handouts: Social Drinking vs Problem Drinking, Alcoholism Resources, Alcoholism: Getting Help, Alcohol Addiction, Alcohol Withdrawal: What to Expect, ED Alcohol Withdrawal, ED Pancreatitis Admission Data Admit Date/Time: 05/08/25 10:08 Attending Provider: Kandice Ortega Admit Provider: Sunny Alonso Primary Care Provider: Aj Gaston Other Providers: Sunny Alonso Other Interventions: Discharge Summary Assessment (RN) Last Done: 05/10/25 11:59
== END 2025-05-10 13:26 | disposition home or self-care (01) | DRG 897 ==
LOC: ED 07:06 → SUATTDRO 10:08 → EDINP 10:08 → 2E 11:11

== ENCOUNTER 2025-08-01 02:19 | Inpatient (IN) ==
[2025-08-01] MEDS: SODIUM CHLORIDE 0.9% 1,000 ML IV ONE (02:39)
[2025-08-01 02:49] LABS: Hematocrit (blood only) 41.1 % (37.0-47.0); Hemoglobin 14.7 g/dl (12.0-16.0); Immature Granulocytes # (auto) 0.02 K/uL (0.01-0.20); Immature Granulocytes % (auto) 0.3 %; Mean Corpuscular Hemoglobin 34.8 pg (25.0-34.0); Mean Corpuscular Volume 97.4 fL (80.0-100.0); Platelet Count 201 K/uL (130-400); RDW Standard Deviation 46.8 fL (36.4-46.3); Red Blood Count 4.22 M/uL (4.20-5.40); White Blood Count 6.04 K/ul (4.8-10.8)
[2025-08-01 03:07] LABS: Alanine Aminotransferase 25.0 U/L (7-52); Albumin Globulin Ratio 1.7 (0.9-2); Albumin Level 4.4 gm/dl (3.4-5.0); Alkaline Phosphatase 40.0 U/L (34-104); Anion Gap 14.0 (3-11); Bilirubin,Total 0.4 mg/dl (0.2-1.0); Blood Urea Nitrogen 14.0 mg/dl (6-23); Calcium 8.6 mg/dl (8.6-10.3); Carbon Dioxide 23.0 mmol/L (21-32); Chloride 105.0 mmol/L (98-107); Creatine Kinase 258.0 U/L (26-192); Creatinine Clr Calc Pharmacy 66.6 ml/min; Globulin 2.6 gm/dl (2.5-4.0); Glucose 168.0 mg/dl (70-99(Fasting)); Lipase 161.0 U/L (11-82); Magnesium 2.0 mg/dl (1.7-2.4); Potassium 3.7 mmol/L (3.5-5.1); Sodium 142.0 mmol/L (136-145); Total Protein 7.0 gm/dl (6.0-8.3)
[2025-08-01 03:19] LABS: Pregnancy Test, Serum Negative (Negative)
[2025-08-01 03:20] LABS: Thyroid Stimulating Hormone 2.141 uIu/ml (0.300-4.500)
[2025-08-01 03:24] LABS: Influenza A virus by PCR Negative (Neg); Influenza B virus by PCR Negative (Neg); SARS CoV2 RNA(COVID-19) Ceph NEGATIVE (Negative)
[2025-08-01 03:36] LABS: INR 0.9 (0.9-1.1); Partial Thromboplastin Time 21 Seconds (21-31); Prothrombin Time 9.8 Seconds (9.0-12.0)
--- NOTE | 2025-08-01 04:12 | History & Physical Report ---
Date of Service August 01, 2025 Assessment & Plan (1) History of seizure due to alcohol withdrawal: Plan: Assessment and plan below following discussion of case with ED provider and reviewing patient history/pertinent normal/abnormal diagnostic test results. Recurrent alcohol withdrawal seizures Facial trauma secondary to fall Alcoholic hepatitis, likely good prognosis on Maddrey's DF with PT within normal limits hereditary hemochromatosis, patient follows with [facility] hematology fatty liver as per records chronic anemia, hemoglobin better than baseline chronic back pain ADHD, anxiety/mood disorder, at baseline Hyperglycemia rule out DM ongoing vape use/alcohol abuse Admit to med/tele Seizure precautions Ativan as needed active seizures CT head, CT cervical spine re: head trauma (Patient currently refusing.) MELODIE S, Librium taper, DT precautions Check hemoglobin A1c DVT prophylaxis. SCDs recent head trauma Full code Patient mother requesting updates from providers. Ms. Jessenia CutlerIsaiasZhang, contact #[phone]. Text document was generated using [email or web address] voice recognition software. It may contain grammatical or spelling errors. Kindly contact undersigned for clarification of any documentation item in question. History of Present Illness Chief Complaint: Fall, seizures as per patient Primary Care Provider: Aj Gaston MD History obtained from patient and records. Medical history significant for hereditary hemochromatosis, fatty liver as per records, history of alcohol withdrawal seizures, chronic anemia (baseline hemoglobin of 10-11), chronic back pain, ADHD, anxiety/mood disorder, ongoing vape use/alcohol abuse. Last confinement April 2025 for alcoholic intoxication. Patient declined alcohol rehab. Patient started drinking again a few weeks ago from personal stressors. Patient denies suicidal intent. Patient trying to cut down drinking over the last few days. Found herself staring blankly into space and right eye going to the side. No headache symptoms. Patient passed out at home later waking up with a cut on her lip. Denies tongue biting or incontinence. No unusual headache, chest pain, SOB symptoms, abdominal pain. Patient called EMS. Seizure witnessed by EMS as per report. 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 Allergies Allergy/AdvReac Type Severity Reaction Status Date / Time nickel Allergy Mild Rash Verified 08/01/25 02:50 Home Medications Medication Instructions Recorded Confirmed Type amitriptyline 50 mg tablet 125 mg PO HS Insomnia 11/27/24 08/01/25 History duloxetine 60 mg capsule,delayed 60 mg PO QAM 11/27/24 08/01/25 History release gabapentin 400 mg capsule 400 mg PO TID 11/27/24 08/01/25 History hydroxyzine pamoate 100 mg capsule 100 mg PO QID PRN Anxiety 11/27/24 08/01/25 History lorazepam 1 mg tablet 1 mg PO DAILY PRN Anxiety 11/27/24 08/01/25 History topiramate 100 mg tablet 100 mg PO TID 11/27/24 08/01/25 History pantoprazole 40 mg tablet,delayed 40 mg PO QAM #30 tabs 12/01/24 08/01/25 Rx release acetaminophen 500 mg tablet 500 mg PO Q6H PRN PAIN/FEVER 01/10/25 08/01/25 History (Tylenol Extra Strength) baclofen 10 mg tablet 10 mg PO TID Muscle Spasms 01/10/25 08/01/25 History diclofenac sodium 75 mg 75 mg PO BID Back Pain 01/10/25 08/01/25 History tablet,delayed release norethindrone 1 mg-ethinyl 1 tab PO DAILY 01/10/25 08/01/25 History estradiol 10 mcg (24)-iron 10 mcg(2) tablet (Lo Loestrin Fe) topiramate 25 mg tablet 25 mg PO BID 01/10/25 08/01/25 History oxycodone 5 mg tablet 5 mg PO Q6H PRN pain #14 tabs 05/10/25 08/01/25 Rx duloxetine 30 mg capsule,delayed 30 mg PO QAM 08/01/25 08/01/25 History release torsemide 10 mg tablet 10 mg PO QAM 08/01/25 08/01/25 History Past Med/Surg History Problem List (Updated 08/01/25 @ 06:33 by Joe Plok PA-C) History of seizure due to alcohol withdrawal (Acute) At risk for alcohol withdrawal (Acute) 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 Acute dehydration (Acute) Vomiting (Acute) Alcohol abuse (Acute) Alcohol intoxication (Acute) PTSD (post-traumatic stress disorder) Alcohol use disorder Back pain (Acute) Alcohol intoxication (Acute) ZUHAIR (acute kidney injury) (Acute) Acute dehydration (Acute) Nausea & vomiting (Acute) History of alcohol dependence (Acute) Acute alcoholic pancreatitis (Acute) Pancreatitis without necrosis or infection Vomiting (Acute) ZUHAIR (acute kidney injury) (Acute) Alcohol withdrawal (Acute) Alcohol abuse (Acute) Hypomagnesemia (Acute) Tachycardia (Acute) Alcohol withdrawal Alcoholic ketoacidosis (Acute) Contusion (Acute) Alcoholic intoxication (Acute) Alcohol abuse (Acute) Weakness (Acute) Hypomagnesemia (Acute) Hallucinations (Acute) Alcohol abuse (Acute) S/P nasal surgery septoplasty and rhinoplasty-both w/Dr. Castañeda Allergic rhinitis Abnormal uterine bleeding ADD (attention deficit disorder) Insomnia Restless leg Anxiety and depression (Chronic) Fatty liver (Chronic) Alcohol dependence (Chronic) Medical History Tobacco use disorder Intractable nausea and vomiting Depression Anxiety Surgical History H/O wisdom tooth extraction Family History Aunt Breast cancer, Onset Age: 65 paternal Asthma maternal Grandfather (Paternal) Prostate cancer Aunt Allergies maternal Family/Other Allergies cousins Asthma cousins Other No family history of adverse response to anesthesia No family history of bleeding disorder Denies family history of Ovarian cancer Colorectal cancer Social History Smoking Status: Former smoker Tobacco Type: E-cigarettes / Vaping Age Started Using Tobacco: 20; packs per day: 0.5; Cigarettes Per Day: 4; Second Hand Exposure: No; Do You Dip or Chew Tobacco: No; Tobacco Cessation Education Requested by Patient: No Hx Alcohol Use: Yes Alcohol type: hard liquor Hx Substance Use: No Preferred Language: [place] 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 Ability: Effective Access Nurse Required: No Beliefs That Will Affect Care: None marital status: Single Current Living Situation: Alone Other Information That Helps Us Care for You: No Feels Safe at Home: Yes Safety Concerns: Feels Safe At This Time Assistive Devices: None Review of Systems Review of Systems: As per HPI, all other systems reviewed and negative Physical Exam Physical Exam: GENERAL: Pleasant, slightly uncomfortable, no respiratory distress SKIN: Pallor, warm HEENT: Pale palpebral conjunctivae, no ptosis, dry buccal mucosa, contusion lower lip NECK : Supple, no tenderness CHEST : CTA, no tenderness HEART : Tachycardic, no obvious murmurs ABDOMEN: Some distention, nontender EXTREMITIES : No LE swelling/tenderness, no other conspicuous deformities noted NEUROLOGIC : Coherent, no facial asymmetry, gait and stance not assessed Results & Data Results & Data Vital Signs (Past 12 Hours) Vital Signs Temp Pulse Pulse Resp BP BP Pulse Ox 08/01/25 04:00 98 H 20 114/87 93 08/01/25 03:30 104 H 20 117/87 96 08/01/25 02:34 94 08/01/25 02:20 37.3 C 110 H 20 120/92 97 O2 Del Method 08/01/25 04:00 Room Air 08/01/25 03:30 Room Air 08/01/25 02:34 Room Air 08/01/25 02:20 Room Air Laboratory Results Laboratory Results WBC 6.04 K/ul (4.8-10.8) 08/01/25 02:35 RBC 4.22 M/uL (4.20-5.40) 08/01/25 02:35 Hgb 14.7 g/dl (12.0-16.0) 08/01/25 02:35 Hct 41.1 % (37.0-47.0) 08/01/25 02:35 MCV 97.4 fL (80.0-100.0) 08/01/25 02:35 MCH 34.8 pg (25.0-34.0) H 08/01/25 02:35 MCHC 35.8 g/dL (32.0-36.0) 08/01/25 02:35 RDW Std Deviation 46.8 fL (36.4-46.3) H 08/01/25 02:35 RDW Coeff of Edgar 13.1 % (11.5-14.5) 08/01/25 02:35 Plt Count 201 K/uL (130-400) 08/01/25 02:35 MPV 9.3 fL (9.4-12.4) L 08/01/25 02:35 Immature Gran % (Auto) 0.3 % 08/01/25 02:35 Neut % (Auto) 52.7 % 08/01/25 02:35 Lymph % (Auto) 37.6 % 08/01/25 02:35 Bladen % (Auto) 7.3 % 08/01/25 02:35 Eos % (Auto) 1.3 % 08/01/25 02:35 Baso % (Auto) 0.8 % 08/01/25 02:35 Neut # (Auto) 3.18 K/uL (1.40-6.50) 08/01/25 02:35 Lymph # (Auto) 2.27 K/uL (1.20-3.40) 08/01/25 02:35 Bladen # (Auto) 0.44 K/uL (0.11-0.59) 08/01/25 02:35 Eos # (Auto) 0.08 K/uL (0.00-0.50) 08/01/25 02:35 Baso # (Auto) 0.05 K/uL (0.00-0.20) 08/01/25 02:35 Immature Gran # (Auto) 0.02 K/uL (0.01-0.20) 08/01/25 02:35 PT 9.8 Seconds (9.0-12.0) 08/01/25 02:35 INR 0.9 (0.9-1.1) 08/01/25 02:35 APTT 21 Seconds (21-31) 08/01/25 02:35 PTT Ratio 0.8 08/01/25 02:35 Sodium 142 mmol/L (136-145) 08/01/25 02:35 Potassium 3.7 mmol/L (3.5-5.1) 08/01/25 02:35 Chloride 105 mmol/L (98-107) 08/01/25 02:35 Carbon Dioxide 23 mmol/L (21-32) 08/01/25 02:35 Anion Gap 14 (3-11) H 08/01/25 02:35 BUN 14 mg/dl (6-23) 08/01/25 02:35 Creatinine 0.91 mg/dl (0.6-1.2) 08/01/25 02:35 Est Cr Clr Drug Dosing 66.6 ml/min 08/01/25 02:35 eGFR 80.78 08/01/25 02:35 BUN/Creatinine Ratio 15.4 (10-20) 08/01/25 02:35 Glucose 168 mg/dl (70-99(Fasting)) H 08/01/25 02:35 Calcium 8.6 mg/dl (8.6-10.3) 08/01/25 02:35 Magnesium 2.0 mg/dl (1.7-2.4) 08/01/25 02:35 Total Bilirubin 0.4 mg/dl (0.2-1.0) 08/01/25 02:35 AST 59 U/L (13-39) H 08/01/25 02:35 ALT 25 U/L (7-52) 08/01/25 02:35 Alkaline Phosphatase 40 U/L (34-104) 08/01/25 02:35 Ammonia 42.0 umol/L (18-72) 08/01/25 02:35 Total Creatine Kinase 258 U/L (26-192) H 08/01/25 02:35 Total Protein 7.0 gm/dl (6.0-8.3) 08/01/25 02:35 Albumin 4.4 gm/dl (3.4-5.0) 08/01/25 02:35 Globulin 2.6 gm/dl (2.5-4.0) 08/01/25 02:35 Albumin/Globulin Ratio 1.7 (0.9-2) 08/01/25 02:35 Lipase 161 U/L (11-82) H 08/01/25 02:35 TSH 2.141 uIu/ml (0.300-4.500) 08/01/25 02:35 HCG, Qual Negative (Negative) 08/01/25 02:35 Ethyl Alcohol mg/dL 489.3 mg/dl (<10.0) H 08/01/25 02:35 SARS-CoV-2 (PCR) NEGATIVE (Negative) 08/01/25 02:35 Influenza Type A (PCR) Negative (Neg) 08/01/25 02:35 Influenza Type B (PCR) Negative (Neg) 08/01/25 02:35 RSV (RT-PCR) Negative (Neg) 08/01/25 02:35 Diagnostic Findings EKG as per my interpretation :Rate 105, sinus tachycardia, normal axis, nonspecific T wave abnormalities
[2025-08-01] MEDS ORDERED: LORazepam Inj 1 MG in SYRINGE 0.5 ML IV PRN ×2 (04:13→04:57)
[2025-08-01] MEDS: POTASSIUM CHLORIDE PWD 20 MEQ PACK PO STA (04:15)
[2025-08-01] MEDS: FOLIC ACID 1 MG in SYRINGE 9.8 ML IV STA (04:15)
[2025-08-01] MEDS: THIAMINE HCL 100 MG in SYRINGE 9 ML IV STA (04:18)
[2025-08-01] MEDS: LORazepam 1 MG TAB PO PRN (05:39)
[2025-08-01] MEDS: KETOROLAC TROMETHAMINE 15 MG/ML VIAL IV ONE (05:50)
--- NOTE | 2025-08-01 06:28 | Emergency Department Note ---
History of Present Illness General Chief complaint: Seizure Stated complaint: Seizure, AMS Time Seen by Provider: 08/01/25 02:21 History of Present Illness Maximum Pain Intensity: 5 This a 44-year-old female presenting to the emergency department via ambulance for evaluation of possible seizure. Patient does have a history of alcohol withdrawal seizures, and according to EMS she has not had anything to drink tonight. She was given Ativan prehospital. The patient is minimally able to answer questions and history is limited secondary to her status. There is no report of chest pain, chest tightness, shortness of breath, or abdominal pain. Discomfort is rated a 5/10. Home Medications Medication Instructions Recorded Confirmed Type amitriptyline 50 mg tablet 125 mg PO HS Insomnia 11/27/24 08/01/25 History duloxetine 60 mg capsule,delayed 60 mg PO QAM 11/27/24 08/01/25 History release gabapentin 400 mg capsule 400 mg PO TID 11/27/24 08/01/25 History hydroxyzine pamoate 100 mg capsule 100 mg PO QID PRN Anxiety 11/27/24 08/01/25 History lorazepam 1 mg tablet 1 mg PO DAILY PRN Anxiety 11/27/24 08/01/25 History topiramate 100 mg tablet 100 mg PO TID 11/27/24 08/01/25 History pantoprazole 40 mg tablet,delayed 40 mg PO QAM #30 tabs 12/01/24 08/01/25 Rx release acetaminophen 500 mg tablet 500 mg PO Q6H PRN PAIN/FEVER 01/10/25 08/01/25 History (Tylenol Extra Strength) baclofen 10 mg tablet 10 mg PO TID Muscle Spasms 01/10/25 08/01/25 History diclofenac sodium 75 mg 75 mg PO BID Back Pain 01/10/25 08/01/25 History tablet,delayed release norethindrone 1 mg-ethinyl 1 tab PO DAILY 01/10/25 08/01/25 History estradiol 10 mcg (24)-iron 10 mcg(2) tablet (Lo Loestrin Fe) topiramate 25 mg tablet 25 mg PO BID 01/10/25 08/01/25 History oxycodone 5 mg tablet 5 mg PO Q6H PRN pain #14 tabs 05/10/25 08/01/25 Rx duloxetine 30 mg capsule,delayed 30 mg PO QAM 08/01/25 08/01/25 History release torsemide 10 mg tablet 10 mg PO QAM 08/01/25 08/01/25 History Allergies Allergy/AdvReac Type Severity Reaction Status Date / Time nickel Allergy Mild Rash Verified 08/01/25 02:50 Past Med/Surg History Problem List (Updated 08/01/25 @ 06:33 by Joe Polk PA-C) History of seizure due to alcohol withdrawal (Acute) At risk for alcohol withdrawal (Acute) 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 Acute dehydration (Acute) Vomiting (Acute) Alcohol abuse (Acute) Alcohol intoxication (Acute) PTSD (post-traumatic stress disorder) Alcohol use disorder Back pain (Acute) Alcohol intoxication (Acute) ZUHAIR (acute kidney injury) (Acute) Acute dehydration (Acute) Nausea & vomiting (Acute) History of alcohol dependence (Acute) Acute alcoholic pancreatitis (Acute) Pancreatitis without necrosis or infection Vomiting (Acute) ZUHAIR (acute kidney injury) (Acute) Alcohol withdrawal (Acute) Alcohol abuse (Acute) Hypomagnesemia (Acute) Tachycardia (Acute) Alcohol withdrawal Alcoholic ketoacidosis (Acute) Contusion (Acute) Alcoholic intoxication (Acute) Alcohol abuse (Acute) Weakness (Acute) Hypomagnesemia (Acute) Hallucinations (Acute) Alcohol abuse (Acute) S/P nasal surgery septoplasty and rhinoplasty-both w/Dr. Castañeda Allergic rhinitis Abnormal uterine bleeding ADD (attention deficit disorder) Insomnia Restless leg Anxiety and depression (Chronic) Fatty liver (Chronic) Alcohol dependence (Chronic) Medical History Tobacco use disorder Intractable nausea and vomiting Depression Anxiety Surgical History H/O wisdom tooth extraction Family History Aunt Breast cancer, Onset Age: 65 paternal Asthma maternal Grandfather (Paternal) Prostate cancer Aunt Allergies maternal Family/Other Allergies cousins Asthma cousins Other No family history of adverse response to anesthesia No family history of bleeding disorder Denies family history of Ovarian cancer Colorectal cancer Social History Smoking Status: Former smoker Tobacco Type: E-cigarettes / Vaping Age Started Using Tobacco: 20; packs per day: 0.5; Cigarettes Per Day: 4; Second Hand Exposure: No; Do You Dip or Chew Tobacco: No; Tobacco Cessation Education Requested by Patient: No Hx Alcohol Use: Yes Alcohol type: hard liquor Hx Substance Use: No Preferred Language: Czech 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 Beliefs That Will Affect Care: None marital status: Single Current Living Situation: Alone Other Information That Helps Us Care for You: No Feels Safe at Home: Yes Safety Concerns: Feels Safe At This Time Assistive Devices: None Review of Systems A total of 10 systems reviewed and were otherwise negative Physical Exam Vital Signs Vital Signs - 24 hr 08/01/25 02:20 08/01/25 02:34 08/01/25 03:30 Temperature 37.3 C Temperature Source Oral Pulse Rate 110 H Pulse Rate [Apical] 104 H Respiratory Rate 20 20 Respiratory Effort / Characteristics Non-Labored Spontaneous Respiratory Depth Normal Respiratory Pattern Blood Pressure 120/92 Blood Pressure [Right Arm] 117/87 Blood Pressure Mean 101 Blood Pressure Mean [Right Arm] 97 Pulse Oximetry 97 94 96 Oxygen Delivery Method Room Air Room Air Room Air Sepsis Recent Fever Within 48 Hours Yes Sepsis New/Unexplained Change in Mental Status N/A Sepsis Action Taken by Nursing No Action Required 08/01/25 04:00 Temperature Temperature Source Pulse Rate Pulse Rate [Apical] 98 H Respiratory Rate 20 Respiratory Effort / Characteristics Non-Labored Spontaneous Respiratory Depth Normal Respiratory Pattern Regular Blood Pressure Blood Pressure [Right Arm] 114/87 Blood Pressure Mean Blood Pressure Mean [Right Arm] 96 Pulse Oximetry 93 Oxygen Delivery Method Room Air Sepsis Recent Fever Within 48 Hours Sepsis New/Unexplained Change in Mental Status Sepsis Action Taken by Nursing VITALS: Vitals are noted on the nurse's note and reviewed by myself. Vital signs stable. GENERAL: White female who appears profoundly intoxicated on arrival. She is slurring her words and smells of alcohol. History is limited secondary to her status. HEAD: Normocephalic atraumatic. NECK: Supple without nuchal rigidity. No lymphadenopathy. No thyromegaly. Cervical spine is nontender. HEART: Regular rate and rhythm without murmurs gallops or rubs. LUNGS: Clear to auscultation bilaterally without wheezes, rales or rhonchi. No retractions or accessory muscle use. ABDOMEN: Positive normal bowel sounds x 4. Soft, nontender, without masses or organomegaly. MUSCULOSKELETAL: No muscle atrophy, erythema, or edema noted. Full range of motion in all extremities. NEURO: Patient was alert to person but not place or time Course Administered Medications Lorazepam (Lorazepam 1 Mg Tab) 1 mg PO DAILY PRN PRN Reason: Anxiety Stop: 08/31/25 04:52 Last Admin: 08/01/25 05:39 Dose: 1 mg Documented By: STEW Discontinued Medications Sodium Chloride (Nss) 1,000 mls @ 999 mls/hr IV .Q1H1M ONE Stop: 08/01/25 03:24 Last Infusion: 08/01/25 03:40 Dose: Infused Documented By: Admin: 08/01/25 02:39 Dose: 999 mls/hr Documented By: ELPIDIO Thiamine HCl 100 mg/ Syringe 10 mls @ 2 mls/min IV NOW STA Stop: 08/01/25 03:13 Last Admin: 08/01/25 04:18 Dose: 2 mls/min Documented By: CARLITOS Folic Acid 1 mg/ Syringe 10 mls @ 5 mls/min IV NOW STA Stop: 08/01/25 03:10 Last Admin: 08/01/25 04:15 Dose: 5 mls/min Documented By: CARLITOS Ketorolac Tromethamine (Ketorolac Tromethamine 15 Mg/Ml Vial) 15 mg IV NOW ONE Stop: 08/01/25 04:49 Last Admin: 08/01/25 05:50 Dose: Not Given Documented By: STEW Potassium Chloride (Potassium Chloride Pwd 20 Meq Pack) 40 meq PO NOW STA Stop: 08/01/25 04:03 Last Admin: 08/01/25 04:15 Dose: 40 meq Documented By: CARLITOS Medical Decision Making Differential Diagnosis Differential diagnosis: Etiologies such as alcohol intoxication, toxicological, infection, hypoglycemia, electrolyte abnormalities, cardiac sources, intracerebral event, neurologic, as well as others were entertained. Laboratory Data 08/01/25 02:35 08/01/25 02:35 Lab Results 08/01/25 Range/Units 02:35 WBC 6.04 (4.8-10.8) K/ul RBC 4.22 (4.20-5.40) M/uL Hgb 14.7 (12.0-16.0) g/dl Hct 41.1 (37.0-47.0) % MCV 97.4 (80.0-100.0) fL MCH 34.8 H (25.0-34.0) pg MCHC 35.8 (32.0-36.0) g/dL RDW Std Deviation 46.8 H (36.4-46.3) fL RDW Coeff of Edgar 13.1 (11.5-14.5) % Plt Count 201 (130-400) K/uL MPV 9.3 L (9.4-12.4) fL Immature Gran % (Auto) 0.3 % Neut % (Auto) 52.7 % Lymph % (Auto) 37.6 % Coleman % (Auto) 7.3 % Eos % (Auto) 1.3 % Baso % (Auto) 0.8 % Neut # (Auto) 3.18 (1.40-6.50) K/uL Lymph # (Auto) 2.27 (1.20-3.40) K/uL Coleman # (Auto) 0.44 (0.11-0.59) K/uL Eos # (Auto) 0.08 (0.00-0.50) K/uL Baso # (Auto) 0.05 (0.00-0.20) K/uL Immature Gran # (Auto) 0.02 (0.01-0.20) K/uL PT 9.8 (9.0-12.0) Seconds INR 0.9 (0.9-1.1) APTT 21 (21-31) Seconds PTT Ratio 0.8 Sodium 142 (136-145) mmol/L Potassium 3.7 (3.5-5.1) mmol/L Chloride 105 (98-107) mmol/L Carbon Dioxide 23 (21-32) mmol/L Anion Gap 14 H (3-11) BUN 14 (6-23) mg/dl Creatinine 0.91 (0.6-1.2) mg/dl Est Cr Clr Drug Dosing 66.6 ml/min eGFR 80.78 BUN/Creatinine Ratio 15.4 (10-20) Glucose 168 H (70-99(Fasting)) mg/dl Calcium 8.6 (8.6-10.3) mg/dl Magnesium 2.0 (1.7-2.4) mg/dl Total Bilirubin 0.4 (0.2-1.0) mg/dl AST 59 H (13-39) U/L ALT 25 (7-52) U/L Alkaline Phosphatase 40 (34-104) U/L Ammonia 42.0 (18-72) umol/L Total Creatine Kinase 258 H (26-192) U/L Total Protein 7.0 (6.0-8.3) gm/dl Albumin 4.4 (3.4-5.0) gm/dl Globulin 2.6 (2.5-4.0) gm/dl Albumin/Globulin Ratio 1.7 (0.9-2) Lipase 161 H (11-82) U/L TSH 2.141 (0.300-4.500) uIu/ml HCG, Qual Negative (Negative) Ethyl Alcohol mg/dL 489.3 H (<10.0) mg/dl SARS-CoV-2 (PCR) NEGATIVE (Negative) Influenza Type A (PCR) Negative (Neg) Influenza Type B (PCR) Negative (Neg) RSV (RT-PCR) Negative (Neg) MDM Narrative Physical exam and history were performed. Nursing notes, EMR, and Medication List were personally reviewed. No social concerns were identified as barriers to patients care. History was provided by the Patient and EMS. Patient appears to have had a seizure episode tonight. The patient is intoxicated on arrival to the ER. IV access was established and labs were obtained. Patient hydrated normal saline and given folic acid and thiamine. She was cared for under aspiration and seizure precautions. Patient's blood work is as above and was reviewed. She does not have a significant elevated white blood cell count, gross anemia, bandemia, or significant electrolyte imbalance. Alcohol is markedly elevated at 489. Flu, COVID, and RSV are negative. Escalation of care was considered, and felt to be necessary. It is unclear if she had a true seizure, and if she did this could be in the context of alcohol withdrawal. The patient has an extensive history of alcohol abuse and is obtunded with an alcohol of 489 here in the ER. Was discussed with the on-call hospitalist team who agreed to evaluate the patient here in the ER. Please see their dictation for further patient course, plan, disposition. The chart was completed utilizing [employer] Voice Recognition Software. Grammatical errors, random word insertions, pronoun errors, and incomplete sentences are an occasional consequence of this system due to software limitations, ambient noise, and hardware issues. Any formal questions or concerns about the content, text, or information contained within the body of this dictation should be directly addressed to the provider for clarification. Impression & Plan Alcohol dependence, History of seizure due to alcohol withdrawal, At risk for alcohol withdrawal Discharge Plan Visit Data Chief Complaint: Seizure Stated Complaint: Seizure, AMS ED Provider: Kirk Tyler ED Midlevel Provider: Joe Polk Discharge Problem: Alcohol dependence, History of seizure due to alcohol withdrawal, At risk for alcohol withdrawal Patient Disposition: Being Evaluated by Hospitalist Condition: Fair Discharge Instructions Interventions: ED Discharge Assessment Last Done: 08/01/25 06:21
[2025-08-01] MEDS ORDERED: chlordiazePOXIDE ALCOHOL WITHDRAWL 50MG PO STA (07:51)
[2025-08-01] MEDS: ACETAMINOPHEN 500 MG TAB PO PRN (08:02)
[2025-08-01] MEDS: LORazepam 1 MG/1 ML SYR ED Inj Use IV STA (08:02)
[2025-08-01] MEDS ORDERED: LORazepam Inj 2 MG in SYRINGE 1 ML IV PRN (08:03)
[2025-08-01] MEDS: DICLOFENAC SODIUM 75 MG TABCR PO SCH (08:03)
[2025-08-01] MEDS ORDERED: LORazepam Inj 3 MG in SYRINGE 1.5 ML IV PRN (08:03)
[2025-08-01] MEDS: TOPIRAMATE 25 MG TAB PO SCH (08:03)
[2025-08-01] MEDS: TOPIRAMATE 100 MG TAB PO SCH (08:03)
[2025-08-01] MEDS: MULTIVITAMIN TAB PO SCH (08:04)
[2025-08-01] MEDS: BACLOFEN 10 MG TAB PO SCH (08:04)
[2025-08-01] MEDS: GABAPENTIN 400 MG CAP PO SCH (08:04)
[2025-08-01] MEDS: PHENobarbital PO Alcohol Withdrawal PO STA (09:42)
[2025-08-01] MEDS: chlordiazePOXIDE ALCOHOL WITHDRAWL 25MG PO STA (09:42)
[2025-08-01] MEDS: THIAMINE HCL 200 MG in SODIUM CHLORIDE 0.9% 50 ML IV STA (10:13)
[2025-08-01] MEDS: POTASSIUM CHLORIDE 20 MEQ in LACTATED RINGER'S 1,000 ML IV ONE (10:13)
[2025-08-01 10:49] LABS: Appearance Urine Clear (Clear); Bacteria Urine Automated None Seen (None Seen); Cast Urine Automated 0-2 /lpf (0-2); Glucose Urine UA Negative (Negative); RBC Urine Automated 0-2 /hpf (0-2); WBC Urine Automated 0-5 /hpf (0-5)
[2025-08-01 11:31] LABS: Amphetamines+Metham, Urine Neg (Neg); MDMA (Ecstacy), Urine Neg (Neg); Marijuana, Urine Neg (Neg)
--- NOTE | 2025-08-01 12:44 | Electrocardiogram Report ---
Test Reason : Blood Pressure : */* mmHG Vent. Rate : 107 BPM Atrial Rate : 107 BPM P-R Int : 148 ms QRS Dur : 82 ms QT Int : 338 ms P-R-T Axes : 58 75 -74 degrees QTcB Int : 451 ms Sinus tachycardia Nonspecific ST and T wave abnormality Abnormal ECG When compared with ECG of 08-May-2025 07:36, Minimal criteria for Inferior infarct are no longer Present Nonspecific T wave abnormality now evident in Lateral leads Confirmed by Ramon Liu ([id number]) on 08/01/2025 12:44:25 PM Referred By: REFERRED SELF Confirmed By: Ramon Liu
[2025-08-01] MEDS: LORazepam Inj 1 MG in SYRINGE 0.5 ML IV PRN (16:45)
[2025-08-01] MEDS ORDERED: IBUPROFEN 200 MG TAB PO ONE (17:00)
[2025-08-02] MEDS: LORazepam 1 MG TAB PO STA (03:52)
[2025-08-02 06:37] LABS: Hematocrit (blood only) 34.4 % (37.0-47.0); Hemoglobin 12.0 g/dl (12.0-16.0); Immature Granulocytes # (auto) 0.01 K/uL (0.01-0.20); Immature Granulocytes % (auto) 0.1 %; Mean Corpuscular Hemoglobin 35.6 pg (25.0-34.0); Mean Corpuscular Volume 102.1 fL (80.0-100.0); Platelet Count 128 K/uL (130-400); RDW Standard Deviation 49.2 fL (36.4-46.3); Red Blood Count 3.37 M/uL (4.20-5.40); White Blood Count 6.91 K/ul (4.8-10.8)
[2025-08-02 07:04] LABS: Alanine Aminotransferase 18.0 U/L (7-52); Albumin Globulin Ratio 1.6 (0.9-2); Albumin Level 3.6 gm/dl (3.4-5.0); Alkaline Phosphatase 37.0 U/L (34-104); Anion Gap 7.0 (3-11); Bilirubin,Total 1.6 mg/dl (0.2-1.0); Blood Urea Nitrogen 12.0 mg/dl (6-23); Calcium 8.3 mg/dl (8.6-10.3); Carbon Dioxide 25.0 mmol/L (21-32); Chloride 105.0 mmol/L (98-107); Creatinine Clr Calc Pharmacy 85.4 ml/min; Globulin 2.2 gm/dl (2.5-4.0); Glucose 91.0 mg/dl (70-99(Fasting)); Magnesium 1.4 mg/dl (1.7-2.4); Potassium 4.1 mmol/L (3.5-5.1); Sodium 137.0 mmol/L (136-145); Total Protein 5.8 gm/dl (6.0-8.3)
[2025-08-02 07:05] LABS: Hemoglobin A1C 4.7 % (4.5-5.6)
[2025-08-02] MEDS: THIAMINE HCL 100 MG TAB PO SCH (08:59)
[2025-08-02] MEDS: FOLIC ACID 1 MG TAB PO SCH (08:59)
[2025-08-02] MEDS: MAGNESIUM SULFATE / D5W 1 GM/100 ML BAG IV SCH (09:06)
[2025-08-02] MEDS: MAGNESIUM OXIDE 400 MG TAB PO SCH (09:07)
[2025-08-02] MEDS: PROMETHAZINE 6.25 MG/50.25 ML BAG IV PRN (09:39)
--- NOTE | 2025-08-02 18:15 | Hospitalist Progress Note ---
Date of Service August 02, 2025 Assessment & Plan (1) History of seizure due to alcohol withdrawal: Plan: Per admitting provider w/ addendum: Recurrent alcohol withdrawal seizures Facial trauma secondary to fall Alcoholic hepatitis, likely good prognosis on Maddrey's DF with PT within normal limits hereditary hemochromatosis, patient follows with [facility] hematology fatty liver as per records chronic anemia, hemoglobin better than baseline chronic back pain ADHD, anxiety/mood disorder, at baseline Hyperglycemia rule out DM, current A1c 4.7% ongoing vape use/alcohol abuse Admitted to med/tele Seizure precautions Ativan as needed active seizures CT head, CT cervical spine re: head trauma - (Patient currently refusing.) MELODIE S, Librium taper, DT precautions DVT prophylaxis. SCDs recent head trauma Full code Patient mother Ms. Jessenia Bauer, contact #[phone]. Admission and Anticipated Discharge Date Admission Date: August 01, 2025 Subjective Pt seen in follow up Pt admitted for withdrawal seizure Currently sitting up in bed in NAD but drowsy Was having some nausea, she is trying to have some lunch No fevers, chills, chest pain, shortness of breath, abd.pain Review of Systems Review of Systems: All systems reviewed & are unremarkable except as noted in Subjective Physical Exam Physical Exam: GENERAL: WD/WN F in NAD HEENT: NC/AT. contusion lower lip NECK : Supple CV : rrr ABDOMEN: Soft, nontender EXTREMITIES : No LE swelling/tenderness, no other conspicuous deformities noted NEUROLOGIC : Coherent, no facial asymmetry, gait and stance not assessed SKIN: warm, dry Results & Data Results & Data Vital Signs (Past 12 Hours) Vital Signs Temp Pulse Pulse Resp BP Pulse Ox O2 Del Method 08/02/25 15:22 37.3 C 88 20 90/57 L 95 Room Air 08/02/25 14:55 89 08/02/25 11:31 Room Air 08/02/25 08:10 74 Laboratory Results 08/02/25 Range/Units 06:02 WBC 6.91 (4.8-10.8) K/ul RBC 3.37 L (4.20-5.40) M/uL Hgb 12.0 (12.0-16.0) g/dl Hct 34.4 L (37.0-47.0) % MCV 102.1 H (80.0-100.0) fL MCH 35.6 H (25.0-34.0) pg MCHC 34.9 (32.0-36.0) g/dL RDW Std Deviation 49.2 H (36.4-46.3) fL RDW Coeff of Edgar 13.0 (11.5-14.5) % Plt Count 128 L (130-400) K/uL MPV 10.0 (9.4-12.4) fL Immature Gran % (Auto) 0.1 % Neut % (Auto) 76.0 % Lymph % (Auto) 19.1 % [place] % (Auto) 2.3 % Eos % (Auto) 1.9 % Baso % (Auto) 0.6 % Neut # (Auto) 5.25 (1.40-6.50) K/uL Lymph # (Auto) 1.32 (1.20-3.40) K/uL [place] # (Auto) 0.16 (0.11-0.59) K/uL Eos # (Auto) 0.13 (0.00-0.50) K/uL Baso # (Auto) 0.04 (0.00-0.20) K/uL Immature Gran # (Auto) 0.01 (0.01-0.20) K/uL Sodium 137 (136-145) mmol/L Potassium 4.1 (3.5-5.1) mmol/L Chloride 105 (98-107) mmol/L Carbon Dioxide 25 (21-32) mmol/L Anion Gap 7 (3-11) BUN 12 (6-23) mg/dl Creatinine 0.71 (0.6-1.2) mg/dl Est Cr Clr Drug Dosing 85.4 ml/min eGFR 108.80 BUN/Creatinine Ratio 16.9 (10-20) Glucose 91 (70-99(Fasting)) mg/dl Estimat Average Glucose 88 mg/dl Hemoglobin A1c 4.7 (4.5-5.6) % Calcium 8.3 L (8.6-10.3) mg/dl Phosphorus 3.0 (2.5-4.9) mg/dl Magnesium 1.4 L (1.7-2.4) mg/dl Total Bilirubin 1.6 H D (0.2-1.0) mg/dl AST 39 (13-39) U/L ALT 18 (7-52) U/L Alkaline Phosphatase 37 (34-104) U/L Total Protein 5.8 L (6.0-8.3) gm/dl Albumin 3.6 (3.4-5.0) gm/dl Globulin 2.2 L (2.5-4.0) gm/dl Albumin/Globulin Ratio 1.6 (0.9-2) Medications Administered Current Inpatient Medications Acetaminophen (Acetaminophen 500 Mg Tab) 500 mg PO Q6H PRN PRN Reason: fever/pain Stop: 08/31/25 04:51 Last Admin: 08/01/25 08:02 Dose: 500 mg Baclofen (Baclofen 10 Mg Tab) 10 mg PO TID [facility] Stop: 08/31/25 08:59 Last Admin: 08/02/25 13:41 Dose: Not Given Chlordiazepoxide HCl (Chlordiazepoxide Hcl 25 Mg Cap) 50 mg PO Q8H [facility]; Protocol Stop: 08/03/25 02:01 Last Admin: 08/01/25 09:19 Dose: 50 mg Chlordiazepoxide HCl (Chlordiazepoxide Hcl 25 Mg Cap) 25 mg PO Q8H [facility]; Protocol Stop: 08/04/25 02:01 Chlordiazepoxide HCl (Chlordiazepoxide Hcl 5 Mg Cap) 10 mg PO Q12H [facility]; Protocol Stop: 08/05/25 02:01 Diclofenac Sodium (Diclofenac Sodium 75 Mg Tabcr) 75 mg PO BID [facility] Stop: 08/31/25 08:59 Last Admin: 08/02/25 12:57 Dose: Not Given Duloxetine HCl (Duloxetine Hcl 30 Mg Cap) 90 mg PO QAM [facility] Stop: 08/31/25 08:59 Last Admin: 08/02/25 12:57 Dose: Not Given Folic Acid (Folic Acid 1 Mg Tab) 1 mg PO QAM [facility] Stop: 09/01/25 08:59 Last Admin: 08/02/25 12:57 Dose: Not Given Gabapentin (Gabapentin 400 Mg Cap) 400 mg PO TID [facility] Stop: 08/31/25 08:59 Last Admin: 08/02/25 13:41 Dose: Not Given Hydroxyzine HCl (Hydroxyzine Hcl 25 Mg Tab) 50 mg PO QID PRN PRN Reason: Anxiety Stop: 08/31/25 04:52 Last Admin: 08/01/25 19:47 Dose: 50 mg Lorazepam 1 mg/ Syringe 1 mls @ 2 mls/min IV Q5M PRN PRN Reason: seizures Stop: 08/31/25 04:12 Promethazine HCl (Phenergan) 6.25 mg in 50.25 mls @ 201 mls/hr IV Q6H PRN PRN Reason: Nausea And Vomiting Stop: 08/31/25 04:56 Last Infusion: 08/02/25 10:14 Dose: Infused Lorazepam 1 mg/ Syringe 1 mls @ 2 mls/min IV UD PRN; Protocol PRN Reason: EtOH Withdrawal AWSS Score 6,7 Stop: 08/31/25 08:02 Last Admin: 08/01/25 16:45 Dose: 2 mls/min Lorazepam 2 mg/ Syringe 2 mls @ 2 mls/min IV UD PRN; Protocol PRN Reason: EtOH Withdrawal AWSS Score 8,9 Stop: 08/31/25 08:02 Lorazepam 3 mg/ Syringe 3 mls @ 2 mls/min IV ONCE PRN; Protocol PRN Reason: EtOH Withdrawal AWSS Score 10+ Sodium Chloride (Nss) 500 mls @ 150 mls/hr IV .Q3H20M ONE Stop: 08/02/25 21:26 Lorazepam (Lorazepam 1 Mg Tab) 1 mg PO DAILY PRN PRN Reason: Anxiety Stop: 08/31/25 04:52 Last Admin: 08/02/25 03:52 Dose: 1 mg Magnesium Oxide (Magnesium Oxide 400 Mg Tab) 400 mg PO BID [facility] Stop: 09/01/25 08:59 Last Admin: 08/02/25 12:57 Dose: Not Given Multivitamins (Multivitamin Tab) [address] [facility] Stop: 08/31/25 08:59 Last Admin: 08/02/25 12:57 Dose: Not Given Oxycodone HCl (Oxycodone Hcl Ir 5 Mg Tab (Immediate Release)) 10 mg PO Q6H PRN PRN Reason: Pain Stop: 08/15/25 04:51 Last Admin: 08/02/25 14:43 Dose: 10 mg Pantoprazole Sodium ([facility]oprazole 40 Mg Tab) [facility] Stop: 08/31/25 08:59 Last Admin: 08/02/25 12:57 Dose: Not Given Thiamine HCl (Thiamine Hcl 100 Mg Tab) [address] [facility] Stop: 09/01/25 08:59 Last Admin: 08/02/25 12:57 Dose: Not Given Topiramate (Topiramate 25 Mg Tab) 25 mg PO BID [facility] Stop: 08/31/25 08:59 Last Admin: 08/02/25 12:58 Dose: Not Given Topiramate (Topiramate 100 Mg Tab) 100 mg PO TID [facility] Stop: 08/31/25 08:59 Last Admin: 08/02/25 13:40 Dose: 100 mg
[2025-08-02] MEDS: SODIUM CHLORIDE 0.9% 500 ML IV ONE (18:26)
[2025-08-03] MEDS: SODIUM CHLORIDE 0.9% 500 ML IV ONE ×3 (04:14→19:21)
[2025-08-03] MEDS: ACETAMINOPHEN 1,000 MG/100 ML VIAL IV STA (05:33)
[2025-08-03 08:01] LABS: Hematocrit (blood only) 33.6 % (37.0-47.0); Hemoglobin 11.0 g/dl (12.0-16.0); Mean Corpuscular Hemoglobin 34.3 pg (25.0-34.0); Mean Corpuscular Volume 104.7 fL (80.0-100.0); Platelet Count 97 K/uL (130-400); RDW Standard Deviation 50.6 fL (36.4-46.3); Red Blood Count 3.21 M/uL (4.20-5.40); White Blood Count 5.24 K/ul (4.8-10.8)
[2025-08-03 08:32] LABS: Alanine Aminotransferase 13.0 U/L (7-52); Albumin Globulin Ratio 1.5 (0.9-2); Albumin Level 3.2 gm/dl (3.4-5.0); Alkaline Phosphatase 34.0 U/L (34-104); Anion Gap 5.0 (3-11); Bilirubin,Total 0.4 mg/dl (0.2-1.0); Blood Urea Nitrogen 10.0 mg/dl (6-23); Calcium 8.1 mg/dl (8.6-10.3); Carbon Dioxide 22.0 mmol/L (21-32); Chloride 109.0 mmol/L (98-107); Creatinine Clr Calc Pharmacy 81.9 ml/min; Globulin 2.2 gm/dl (2.5-4.0); Glucose 96.0 mg/dl (70-99(Fasting)); Potassium 4.2 mmol/L (3.5-5.1); Sodium 136.0 mmol/L (136-145); Total Protein 5.4 gm/dl (6.0-8.3)
[2025-08-03 09:13] LABS: Magnesium 2.0 mg/dl (1.7-2.4)
--- NOTE | 2025-08-03 15:26 | Hospitalist Progress Note ---
Date of Service August 03, 2025 Assessment & Plan (1) History of seizure due to alcohol withdrawal: Plan: Per admitting provider w/ addendum: Recurrent alcohol withdrawal seizures Facial trauma secondary to fall Alcoholic hepatitis, likely good prognosis on Maddrey's DF with PT within normal limits hereditary hemochromatosis, patient follows with [facility] hematology fatty liver as per records chronic anemia, hemoglobin better than baseline chronic back pain ADHD, anxiety/mood disorder, at baseline Hyperglycemia rule out DM, current A1c 4.7% ongoing vape use/alcohol abuse Admitted to med/tele Seizure precautions Ativan as needed active seizures CT head, CT cervical spine re: head trauma - (Patient currently refusing.) MELODIE S, Librium taper, DT precautions DVT prophylaxis. SCDs recent head trauma Full code Patient mother Ms. Jessenia Bauer, contact #[phone]. Admission and Anticipated Discharge Date Admission Date: August 01, 2025 Subjective Pt seen in follow up Pt admitted for withdrawal seizure Currently lying in bed, drowsy. Per RN pt was doing well, got very drowsy after her librium No fevers, chills, chest pain, shortness of breath, abd.pain Review of Systems Review of Systems: All systems reviewed & are unremarkable except as noted in Subjective Physical Exam Physical Exam: GENERAL: WD/WN F in NAD HEENT: NC/AT. contusion lower lip NECK : Supple CV : rrr ABDOMEN: Soft, nontender EXTREMITIES : No LE swelling/tenderness, no other conspicuous deformities noted NEUROLOGIC : Currently drowsy, no facial asymmetry, moves extremities SKIN: warm, dry Results & Data Results & Data Vital Signs (Past 12 Hours) Vital Signs Temp Pulse Pulse Resp BP Pulse Ox O2 Del Method 08/03/25 14:51 76 08/03/25 11:23 36.8 C 74 16 95/61 L 98 Room Air 08/03/25 07:49 69 18 93/67 L 98 Room Air 08/03/25 07:34 76 08/03/25 04:00 36.6 C 71 18 92/59 L 96 Room Air Laboratory Results 08/03/25 Range/Units 07:22 WBC 5.24 (4.8-10.8) K/ul RBC 3.21 L (4.20-5.40) M/uL Hgb 11.0 L (12.0-16.0) g/dl Hct 33.6 L (37.0-47.0) % MCV 104.7 H (80.0-100.0) fL MCH 34.3 H (25.0-34.0) pg MCHC 32.7 (32.0-36.0) g/dL RDW Std Deviation 50.6 H (36.4-46.3) fL RDW Coeff of Edgar 13.2 (11.5-14.5) % Plt Count 97 L (130-400) K/uL MPV 10.4 (9.4-12.4) fL Sodium 136 (136-145) mmol/L Potassium 4.2 (3.5-5.1) mmol/L Chloride 109 H (98-107) mmol/L Carbon Dioxide 22 (21-32) mmol/L Anion Gap 5 (3-11) BUN 10 (6-23) mg/dl Creatinine 0.74 (0.6-1.2) mg/dl Est Cr Clr Drug Dosing 81.9 ml/min eGFR 103.53 BUN/Creatinine Ratio 13.5 (10-20) Glucose 96 (70-99(Fasting)) mg/dl Calcium 8.1 L (8.6-10.3) mg/dl Phosphorus 2.7 (2.5-4.9) mg/dl Magnesium 2.0 (1.7-2.4) mg/dl Total Bilirubin 0.4 D (0.2-1.0) mg/dl AST 24 (13-39) U/L ALT 13 (7-52) U/L Alkaline Phosphatase 34 (34-104) U/L Total Protein 5.4 L (6.0-8.3) gm/dl Albumin 3.2 L (3.4-5.0) gm/dl Globulin 2.2 L (2.5-4.0) gm/dl Albumin/Globulin Ratio 1.5 (0.9-2) Medications Administered Current Inpatient Medications Acetaminophen (Acetaminophen 500 Mg Tab) 500 mg PO Q6H PRN PRN Reason: fever/pain Stop: 08/31/25 04:51 Last Admin: 08/01/25 08:02 Dose: 500 mg Baclofen (Baclofen 10 Mg Tab) 10 mg PO TID [facility] Stop: 08/31/25 08:59 Last Admin: 08/03/25 08:19 Dose: 10 mg Chlordiazepoxide HCl (Chlordiazepoxide Hcl 25 Mg Cap) 25 mg PO Q8H [facility]; Protocol Stop: 08/04/25 02:01 Last Admin: 08/03/25 11:24 Dose: 25 mg Chlordiazepoxide HCl (Chlordiazepoxide Hcl 5 Mg Cap) 10 mg PO Q12H [facility]; Protocol Stop: 08/05/25 02:01 Diclofenac Sodium (Diclofenac Sodium 75 Mg Tabcr) 75 mg PO BID [facility] Stop: 08/31/25 08:59 Last Admin: 08/03/25 08:10 Dose: 75 mg Duloxetine HCl (Duloxetine Hcl 30 Mg Cap) 90 mg PO QAM [facility] Stop: 08/31/25 08:59 Last Admin: 08/03/25 08:08 Dose: 90 mg Folic Acid (Folic Acid 1 Mg Tab) 1 mg PO QAM [facility] Stop: 09/01/25 08:59 Last Admin: 08/03/25 08:08 Dose: 1 mg Gabapentin (Gabapentin 400 Mg Cap) 400 mg PO TID [facility] Stop: 08/31/25 08:59 Last Admin: 08/03/25 08:08 Dose: 400 mg Hydroxyzine HCl (Hydroxyzine Hcl 25 Mg Tab) 50 mg PO QID PRN PRN Reason: Anxiety Stop: 08/31/25 04:52 Last Admin: 08/01/25 19:47 Dose: 50 mg Lorazepam 1 mg/ Syringe 1 mls @ 2 mls/min IV Q5M PRN PRN Reason: seizures Stop: 08/31/25 04:12 Promethazine HCl (Phenergan) 6.25 mg in 50.25 mls @ 201 mls/hr IV Q6H PRN PRN Reason: Nausea And Vomiting Stop: 08/31/25 04:56 Last Infusion: 08/02/25 10:14 Dose: Infused Lorazepam 1 mg/ Syringe 1 mls @ 2 mls/min IV UD PRN; Protocol PRN Reason: EtOH Withdrawal AWSS Score 6,7 Stop: 08/31/25 08:02 Last Admin: 08/01/25 16:45 Dose: 2 mls/min Lorazepam 2 mg/ Syringe 2 mls @ 2 mls/min IV UD PRN; Protocol PRN Reason: EtOH Withdrawal AWSS Score 8,9 Stop: 08/31/25 08:02 Lorazepam 3 mg/ Syringe 3 mls @ 2 mls/min IV ONCE PRN; Protocol PRN Reason: EtOH Withdrawal AWSS Score 10+ Lorazepam (Lorazepam 1 Mg Tab) 1 mg PO DAILY PRN PRN Reason: Anxiety Stop: 08/31/25 04:52 Last Admin: 08/03/25 05:36 Dose: 1 mg Magnesium Oxide (Magnesium Oxide 400 Mg Tab) 400 mg PO BID [facility] Stop: 09/01/25 08:59 Last Admin: 08/03/25 08:09 Dose: 400 mg Multivitamins (Multivitamin Tab) 1 tab PO QAM [facility] Stop: 08/31/25 08:59 Last Admin: 08/03/25 08:08 Dose: 1 tab Oxycodone HCl (Oxycodone Hcl Ir 5 Mg Tab (Immediate Release)) 10 mg PO Q6H PRN PRN Reason: Pain Stop: 08/15/25 04:51 Last Admin: 08/03/25 00:04 Dose: 10 mg Pantoprazole Sodium (Pantoprazole 40 Mg Tab) 40 mg PO QAM [facility] Stop: 08/31/25 08:59 Last Admin: 08/03/25 08:08 Dose: 40 mg Thiamine HCl (Thiamine Hcl 100 Mg Tab) 100 mg PO QAM [facility] Stop: 09/01/25 08:59 Last Admin: 08/03/25 08:08 Dose: 100 mg Topiramate (Topiramate 25 Mg Tab) 25 mg PO BID [facility] Stop: 08/31/25 08:59 Last Admin: 08/03/25 08:09 Dose: 25 mg Topiramate (Topiramate 100 Mg Tab) 100 mg PO TID [facility] Stop: 08/31/25 08:59 Last Admin: 08/03/25 08:09 Dose: 100 mg
[2025-08-04 07:30] LABS: Hematocrit (blood only) 36.7 % (37.0-47.0); Hemoglobin 12.1 g/dl (12.0-16.0); Mean Corpuscular Hemoglobin 35.1 pg (25.0-34.0); Mean Corpuscular Volume 106.4 fL (80.0-100.0); Platelet Count 117 K/uL (130-400); RDW Standard Deviation 51.5 fL (36.4-46.3); Red Blood Count 3.45 M/uL (4.20-5.40); White Blood Count 4.85 K/ul (4.8-10.8)
--- NOTE | 2025-08-04 07:31 | Hospitalist Progress Note ---
Date of Service August 04, 2025 Assessment & Plan (1) History of seizure due to alcohol withdrawal: Plan: Per admitting provider w/ addendum: Recurrent alcohol withdrawal seizures Facial trauma secondary to fall Alcoholic hepatitis, likely good prognosis on Maddrey's DF with PT within normal limits hereditary hemochromatosis, patient follows with [facility] [place] hematology fatty liver as per records chronic anemia, hemoglobin better than baseline chronic back pain ADHD, anxiety/mood disorder, at baseline Hyperglycemia rule out DM, current A1c 4.7% ongoing vape use/alcohol abuse Admitted to med/tele Seizure precautions Ativan as needed active seizures CT head, CT cervical spine ordered on admission re: head trauma - patient refused MELODIE S, Librium taper, DT precautions DVT prophylaxis. SCDs Full code Patient mother Ms. Jessenia Bauer, contact #[phone]. Admission and Anticipated Discharge Date Admission Date: August 01, 2025 Subjective Pt seen in follow up Pt admitted for withdrawal seizure Currently lying in bed, drowsy but able to answer questions appropriately. No fevers, chills, chest pain, shortness of breath, or abd.pain Yesterday, pt's mother updated at the bedside. Today evaluated pt again in the afternoon when pt's mother was visiting. Unfortunately, I was not able to meet her today but I had an extensive conversation over the phone with her, the pt and pt's RN - from pt's room. Pt was initially drowsy and sleeping. Easily woken up though and talked to me and RN extensively about her concern with her job that she is supposed to be back to on Wednesday. Says it's difficult for her because of her back issues. Also says she was drinking because of that at home. Per RN, pt's mom was worried about Emma's drowsiness, so attempted to video call her, as Emma was able to talk to us coherently and with decent insight. I also reviewed her admissions from April and from December. In December, Emma was apparently very encephalopathic - to do point that psychiatry engineering consultant could not even wake her up. And Dr. Cervantes from hospitalist service ordered brain MRI for the pt - which was normal. Currently Emma says she is glad she was able to get some sleep here as she has difficulty sleeping at home. She is quite coherent currently. Will cont. with current course, also will let her sleep as much as possible tonight. Will continue to closely monitor. Review of Systems Review of Systems: All systems reviewed & are unremarkable except as noted in Subjective Physical Exam Physical Exam: GENERAL: WD/WN F in NAD HEENT: NC/AT. NECK : Supple CV : rrr ABDOMEN: Soft, nontender EXTREMITIES : No LE swelling/tenderness, no other conspicuous deformities noted NEUROLOGIC : drowsy but able to answer simple questions appropriately, no facial asymmetry, moves extremities SKIN: warm, dry Results & Data Results & Data Vital Signs (Past 12 Hours) Vital Signs Temp Pulse Pulse Resp BP Pulse Ox Pulse Ox 08/04/25 06:00 95 08/04/25 02:54 36.6 C 65 16 94/58 L 96 08/03/25 22:54 36.7 C 67 16 90/59 L 97 08/03/25 21:38 73 O2 Del Method O2 Del Method 08/04/25 06:00 Room Air 08/04/25 02:54 Room Air 08/03/25 22:54 Room Air 08/03/25 21:38 Laboratory Results 08/04/25 Range/Units 06:34 WBC 4.85 (4.8-10.8) K/ul RBC 3.45 L (4.20-5.40) M/uL Hgb 12.1 (12.0-16.0) g/dl Hct 36.7 L (37.0-47.0) % MCV 106.4 H (80.0-100.0) fL MCH 35.1 H (25.0-34.0) pg MCHC 33.0 (32.0-36.0) g/dL RDW Std Deviation 51.5 H (36.4-46.3) fL RDW Coeff of Edgar 13.1 (11.5-14.5) % Plt Count 117 L (130-400) K/uL MPV 10.6 (9.4-12.4) fL Sodium 137 (136-145) mmol/L Potassium 4.2 (3.5-5.1) mmol/L Chloride 111 H (98-107) mmol/L Carbon Dioxide 21 (21-32) mmol/L Anion Gap 5 (3-11) BUN 11 (6-23) mg/dl Creatinine 0.82 (0.6-1.2) mg/dl Est Cr Clr Drug Dosing 80.0 ml/min eGFR 91.53 BUN/Creatinine Ratio 13.4 (10-20) Glucose 105 H (70-99(Fasting)) mg/dl Calcium 8.6 (8.6-10.3) mg/dl Phosphorus 2.8 (2.5-4.9) mg/dl Magnesium 2.1 (1.7-2.4) mg/dl Total Bilirubin 0.3 (0.2-1.0) mg/dl AST 20 (13-39) U/L ALT 13 (7-52) U/L Alkaline Phosphatase 36 (34-104) U/L Total Protein 6.4 (6.0-8.3) gm/dl Albumin 3.5 (3.4-5.0) gm/dl Globulin 2.9 (2.5-4.0) gm/dl Albumin/Globulin Ratio 1.2 (0.9-2) Medications Administered Current Inpatient Medications Acetaminophen (Acetaminophen 500 Mg Tab) 500 mg PO Q6H PRN PRN Reason: fever/pain Stop: 08/31/25 04:51 Last Admin: 08/04/25 07:06 Dose: 500 mg Baclofen (Baclofen 10 Mg Tab) 10 mg PO TID [facility] Stop: 08/31/25 08:59 Last Admin: 08/03/25 16:13 Dose: Not Given Chlordiazepoxide HCl (Chlordiazepoxide Hcl 25 Mg Cap) 25 mg PO Q8H [facility]; Protocol Last Admin: 08/03/25 11:24 Dose: 25 mg Chlordiazepoxide HCl (Chlordiazepoxide Hcl 5 Mg Cap) 10 mg PO Q12H [facility]; Protocol Stop: 08/05/25 02:01 Diclofenac Sodium (Diclofenac Sodium 75 Mg Tabcr) 75 mg PO BID [facility] Stop: 08/31/25 08:59 Last Admin: 08/03/25 20:12 Dose: 75 mg Duloxetine HCl (Duloxetine Hcl 30 Mg Cap) 90 mg PO QAM [facility] Stop: 08/31/25 08:59 Last Admin: 08/03/25 08:08 Dose: 90 mg Folic Acid (Folic Acid 1 Mg Tab) 1 mg PO QAM [facility] Stop: 09/01/25 08:59 Last Admin: 08/03/25 08:08 Dose: 1 mg Gabapentin (Gabapentin 400 Mg Cap) 400 mg PO TID [facility] Stop: 08/31/25 08:59 Last Admin: 08/03/25 16:13 Dose: Not Given Hydroxyzine HCl (Hydroxyzine Hcl 25 Mg Tab) 50 mg PO QID PRN PRN Reason: Anxiety Stop: 08/31/25 04:52 Last Admin: 08/03/25 20:11 Dose: 50 mg Lorazepam 1 mg/ Syringe 1 mls @ 2 mls/min IV Q5M PRN PRN Reason: seizures Stop: 08/31/25 04:12 Promethazine HCl (Phenergan) 6.25 mg in 50.25 mls @ 201 mls/hr IV Q6H PRN PRN Reason: Nausea And Vomiting Stop: 08/31/25 04:56 Last Infusion: 08/02/25 10:14 Dose: Infused Lorazepam 1 mg/ Syringe 1 mls @ 2 mls/min IV UD PRN; Protocol PRN Reason: EtOH Withdrawal AWSS Score 6,7 Stop: 08/31/25 08:02 Last Admin: 08/01/25 16:45 Dose: 2 mls/min Lorazepam 2 mg/ Syringe 2 mls @ 2 mls/min IV UD PRN; Protocol PRN Reason: EtOH Withdrawal AWSS Score 8,9 Stop: 08/31/25 08:02 Lorazepam 3 mg/ Syringe 3 mls @ 2 mls/min IV ONCE PRN; Protocol PRN Reason: EtOH Withdrawal AWSS Score 10+ Lorazepam (Lorazepam 1 Mg Tab) 1 mg PO DAILY PRN PRN Reason: Anxiety Stop: 08/31/25 04:52 Last Admin: 08/03/25 05:36 Dose: 1 mg Magnesium Oxide (Magnesium Oxide 400 Mg Tab) 400 mg PO BID [facility] Stop: 09/01/25 08:59 Last Admin: 08/03/25 20:11 Dose: 400 mg Multivitamins (Multivitamin Tab) 1 tab PO QAM [facility] Stop: 08/31/25 08:59 Last Admin: 08/03/25 08:08 Dose: 1 tab Oxycodone HCl (Oxycodone Hcl Ir 5 Mg Tab (Immediate Release)) 10 mg PO Q6H PRN PRN Reason: Pain Stop: 08/15/25 04:51 Last Admin: 08/04/25 07:07 Dose: 10 mg Pantoprazole Sodium (Pantoprazole 40 Mg Tab) 40 mg PO QAM [facility] Stop: 08/31/25 08:59 Last Admin: 08/03/25 08:08 Dose: 40 mg Thiamine HCl (Thiamine Hcl 100 Mg Tab) 100 mg PO QAM [facility] Stop: 09/01/25 08:59 Last Admin: 08/03/25 08:08 Dose: 100 mg Topiramate (Topiramate 25 Mg Tab) 25 mg PO BID [facility] Stop: 08/31/25 08:59 Last Admin: 08/03/25 20:12 Dose: 25 mg Topiramate (Topiramate 100 Mg Tab) 100 mg PO TID [facility] Stop: 08/31/25 08:59 Last Admin: 08/03/25 20:12 Dose: 100 mg
[2025-08-04 07:45] LABS: Alanine Aminotransferase 13.0 U/L (7-52); Albumin Globulin Ratio 1.2 (0.9-2); Albumin Level 3.5 gm/dl (3.4-5.0); Alkaline Phosphatase 36.0 U/L (34-104); Anion Gap 5.0 (3-11); Bilirubin,Total 0.3 mg/dl (0.2-1.0); Blood Urea Nitrogen 11.0 mg/dl (6-23); Calcium 8.6 mg/dl (8.6-10.3); Carbon Dioxide 21.0 mmol/L (21-32); Chloride 111.0 mmol/L (98-107); Creatinine Clr Calc Pharmacy 80.0 ml/min; Globulin 2.9 gm/dl (2.5-4.0); Glucose 105.0 mg/dl (70-99(Fasting)); Magnesium 2.1 mg/dl (1.7-2.4); Potassium 4.2 mmol/L (3.5-5.1); Sodium 137.0 mmol/L (136-145); Total Protein 6.4 gm/dl (6.0-8.3)
[2025-08-04] MEDS: SODIUM CHLORIDE 0.9% 1,000 ML IV ONE (14:44)
[2025-08-04] MEDS: NICOTINE 14 MG/24 HR PATCH TD SCH (14:45)
[2025-08-04] MEDS: THIAMINE HCL 500 MG in SODIUM CHLORIDE 0.9% 50 ML IV SCH (14:45)
[2025-08-04] MEDS: CYANOCOBALAMIN (B-12) 500 MCG TABLET PO SCH (15:24)
[2025-08-04] MEDS: SODIUM CHLORIDE 0.9% 1,000 ML IV SCH (19:21)
[2025-08-05 02:39] VITALS: RESP 16
[2025-08-05 07:47] VITALS: O2SAT 97
[2025-08-05 08:14] LABS: Hematocrit (blood only) 35.3 % (37.0-47.0); Hemoglobin 11.7 g/dl (12.0-16.0); Mean Corpuscular Hemoglobin 34.8 pg (25.0-34.0); Mean Corpuscular Volume 105.1 fL (80.0-100.0); Platelet Count 133 K/uL (130-400); RDW Standard Deviation 49.7 fL (36.4-46.3); Red Blood Count 3.36 M/uL (4.20-5.40); White Blood Count 5.01 K/ul (4.8-10.8)
[2025-08-05 08:28] LABS: Anion Gap 5.0 (3-11); Blood Urea Nitrogen 12.0 mg/dl (6-23); Calcium 8.3 mg/dl (8.6-10.3); Carbon Dioxide 20.0 mmol/L (21-32); Chloride 113.0 mmol/L (98-107); Creatinine Clr Calc Pharmacy 79.6 ml/min; Glucose 112.0 mg/dl (70-99(Fasting)); Magnesium 1.9 mg/dl (1.7-2.4); Potassium 3.9 mmol/L (3.5-5.1); Sodium 138.0 mmol/L (136-145)
[2025-08-05] MEDS: REMOVE NICODERM PATCH SCH (08:38)
[2025-08-05 10:51] VITALS: BP 96/63; PULSE 68; TEMP 98.3
--- NOTE | 2025-08-05 12:06 | Discharge Summary ---
Date of Service August 05, 2025 Admission HPI Per Admitting Provider History obtained from patient and records. Medical history significant for hereditary hemochromatosis, fatty liver as per records, history of alcohol withdrawal seizures, chronic anemia (baseline hemoglobin of 10-11), chronic back pain, ADHD, anxiety/mood disorder, ongoing vape use/alcohol abuse. Last confinement April 2025 for alcoholic intoxication. Patient declined alcohol rehab. Patient started drinking again a few weeks ago from personal stressors. Patient denies suicidal intent. Patient trying to cut down drinking over the last few days. Found herself staring blankly into space and right eye going to the side. No headache symptoms. Patient passed out at home later waking up with a cut on her lip. Denies tongue biting or incontinence. No unusual headache, chest pain, SOB symptoms, abdominal pain. Patient called EMS. Seizure witnessed by EMS as per report. 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 NECK : Supple CV : rrr ABDOMEN: Soft, nontender EXTREMITIES : No LE swelling/tenderness, no other conspicuous deformities noted NEUROLOGIC : drowsy but able to answer simple questions appropriately, no facial asymmetry, moves extremities SKIN: warm, dry Discharge Data Allergies Allergy/AdvReac Type Severity Reaction Status Date / Time nickel Allergy Mild Rash Verified 08/01/25 02:50 Consultations 08/01/25 04:00 ED Decision to Admit Stat 08/04/25 15:47 Consult Behavioral Health Liaison Routine Hospital Course (1) History of seizure due to alcohol withdrawal: Recurrent alcohol withdrawal seizures Facial trauma secondary to fall Alcoholic hepatitis, likely good prognosis on Maddrey's DF with PT within normal limits hereditary hemochromatosis, patient follows with [facility] hematology fatty liver as per records chronic anemia, hemoglobin better than baseline chronic back pain ADHD, anxiety/mood disorder, at baseline Hyperglycemia rule out DM, current A1c 4.7% ongoing vape use/alcohol abuse Admitted to med/tele Seizure precautions Ativan as needed active seizures CT head, CT cervical spine ordered on admission re: head trauma - patient refused MELODIE S, Librium taper, DT precautions Pt without any signs or symptoms of alcohol withdrawal. No seizures while admitted. She was drowsy with medications but she is always arousable and can hold conversation. Pt not confused and actually has decent insight. Open to suggestions and understanding any concerns from health care providers/ staff. Pt is cooperative. She would like to be discharged today. Recommend abstinence from alcohol and close follow up with primary care provider. Pt is not interested in alcohol rehab. Total Time Total Time Spent Total Time Spent (In Minutes): 40 Discharge Plan Discharge Items Patient Disposition: Home - Self-Care Reason For Visit: ETOH WITHDRAWAL Discharge Diagnosis: Alcohol withdrawal seizure Condition on Discharge: Fair Activity: Per Instructions section Non-emergency contact: Primary Care Provider Call non-emergency contact if: you have any medication questions and your symptoms worsen Follow-up/Referrals: Aj Gaston MD [Primary Care Provider] - Diet: Regular Addtl Attending Provider Instructions: Follow up with your primary care physician within 1 week. Follow up with your other providers as scheduled. Recommend to abstain from alcohol. Recommend to continue physical therapy and following with pain management clinic for your back issues. Also consider using a back brace during any heavy lifting. Recommend vitamin supplements as prescribed. Pending Studies at Discharge: No Stand-Alone Forms: My [facility] [place], Smoking Cessation Medications and DC Order Prescriptions: New magnesium oxide 400 mg (241.3 mg magnesium) Tablet 400 mg PO DAILY Qty: 20 0RF cyanocobalamin (vitamin B-12) 500 mcg Tablet 1,000 mcg PO QAM Qty: 60 0RF folic acid 1 mg Tablet 1 mg PO QAM Qty: 30 0RF Continued hydroxyzine pamoate 100 mg capsule 100 mg PO QID PRN (Reason: Anxiety) gabapentin 400 mg capsule 400 mg PO TID amitriptyline 50 mg tablet 125 mg PO HS topiramate 100 mg tablet 100 mg PO TID Rx Instructions: TOTAL DOSE 125 MG--TAKES WITH 25 MG TAB QAM & HS. NOON DOSE 100 MG ONLY. duloxetine 60 mg capsule,delayed release(DR/EC) 60 mg PO QAM Rx Instructions: TOTAL DOSE 90 MG--TAKES WITH 30 MG CAP. lorazepam 1 mg tablet 1 mg PO DAILY PRN (Reason: Anxiety) pantoprazole 40 mg Tablet,Delayed Release (Dr/Ec) 40 mg PO QAM Qty: 30 0RF topiramate 25 mg tablet 25 mg PO BID Rx Instructions: TOTAL DOSE 125 MG--TAKES WITH 100 MG TAB QAM & QHS acetaminophen [Tylenol Extra Strength] 500 mg Tablet 500 mg PO Q6H PRN (Reason: PAIN/FEVER) Lo Loestrin Fe 1 mg-10 mcg (24)/10 mcg (2) Tablet 1 tab PO DAILY baclofen 10 mg tablet 10 mg PO TID diclofenac sodium 75 mg tablet,delayed release (DR/EC) 75 mg PO BID oxycodone 5 mg Tablet 5 mg PO Q6H PRN (Reason: pain) Qty: 14 0RF duloxetine 30 mg capsule,delayed release(DR/EC) 30 mg PO QAM Rx Instructions: TOTAL DOSE 90 MG--TAKES WITH 60 MG CAP. Held torsemide 10 mg tablet 10 mg PO QAM Hold Instructions: Resume on 08/10/25. until discussed with your primary care physician Discharge Orders: Discharge Order (Routine); Ordered 08/05/25 Ordered By: Hayden Smith Admission Data Admit Date/Time: 08/01/25 04:13 Attending Provider: Hayden Smith Admit Provider: Jimi Zavala Primary Care Provider: Aj Gaston Other Providers: Jimi Zavala
== END 2025-08-05 14:45 | disposition home or self-care (01) | DRG 897 ==
LOC: ED 02:19 → EDINP 04:13 → 2N 06:21

== ENCOUNTER 2025-09-19 19:43 | Inpatient (IN) ==
[2025-09-19] MEDS: SODIUM CHLORIDE 0.9% 1,000 ML IV ONE (20:23)
[2025-09-19 21:06] LABS: Alanine Aminotransferase 206 U/L (7-52); Albumin Level 4.4 gm/dl (3.4-5.0); Alkaline Phosphatase 58 U/L (34-104); Anion Gap 13 (3-11); Bilirubin,Total 0.4 mg/dl (0.2-1.0); Blood Urea Nitrogen 12 mg/dl (6-23); Calcium 8.5 mg/dl (8.6-10.3); Carbon Dioxide 23 mmol/L (21-32); Chloride 110 mmol/L (98-107); Glucose 90 mg/dl (70-99(Fasting)); Hematocrit (blood only) 32.8 % (37.0-47.0); Hemoglobin 11.7 g/dL (12.0-16.0); Lipase 201 U/L (11-82); Mean Corpuscular Hemoglobin 35.5 pg (25.0-34.0); Mean Corpuscular Volume 99.4 fL (80.0-100.0); Platelet Count 315 K/uL (130-400); RDW Standard Deviation 54.5 fL (36.4-46.3); Red Blood Count 3.30 M/uL (4.20-5.40); Sodium 146 mmol/L (136-145); Total Protein 7.5 gm/dl (6.0-8.3); White Blood Count 3.93 K/ul (4.8-10.8)
[2025-09-19 21:43] LABS: Potassium 3.9 mmol/L (3.5-5.1)
--- NOTE | 2025-09-19 23:44 | Emergency Department Note ---
History of Present Illness General Chief complaint: Alcohol Intoxication Stated complaint: INTOXICATION Time Seen by Provider: 09/19/25 20:06 Source: patient and family (Mother and father) History of Present Illness Provider complaint: Alcohol abuse 45-year-old female presents emergency department with her mother and father at bedside. Mother and father reports the patient is an alcoholic and the patient has been drink a lot of alcohol and they are requesting that she be placed for rehab and detox treatment. Patient also agrees with this. Patient states she does not know how much alcohol she drank today but states it was a significant amount. She reports abdominal pain. No headache chest pain difficulty breathing neck pain. Patient reports that she fell 2 days ago. She reports no headache or neck pain at this time. Home Medications Medication Instructions Recorded Confirmed Type amitriptyline 50 mg tablet 125 mg PO HS Insomnia 11/27/24 09/19/25 History hydroxyzine pamoate 100 mg capsule 100 mg PO QID PRN Anxiety 11/27/24 09/19/25 History lorazepam 1 mg tablet 1 mg PO DAILY PRN Anxiety 11/27/24 09/19/25 History topiramate 100 mg tablet 100 mg PO TID 11/27/24 09/19/25 History pantoprazole 40 mg tablet,delayed 40 mg PO QAM #30 tabs 12/01/24 09/19/25 Rx release acetaminophen 500 mg tablet 500 mg PO Q6H PRN PAIN/FEVER 01/10/25 09/19/25 History (Tylenol Extra Strength) baclofen 10 mg tablet 10 mg PO TID Muscle Spasms 01/10/25 09/19/25 History diclofenac sodium 75 mg 75 mg PO BID Back Pain 01/10/25 09/19/25 History tablet,delayed release norethindrone 1 mg-ethinyl 1 tab PO DAILY 01/10/25 09/19/25 History estradiol 10 mcg (24)-iron 10 mcg(2) tablet (Lo Loestrin Fe) topiramate 25 mg tablet 25 mg PO BID 01/10/25 09/19/25 History duloxetine 30 mg capsule,delayed 30 mg PO QAM 08/01/25 09/19/25 History release torsemide 10 mg tablet 10 mg PO QAM 08/01/25 09/19/25 History cyanocobalamin (vitamin B-12) 500 1,000 mcg (2 x 500 mcg) PO QAM #60 08/05/25 09/19/25 Rx mcg tablet tabs folic acid 1 mg tablet 1 mg PO QAM #30 tabs 08/05/25 09/19/25 Rx magnesium oxide 400 mg (241.3 mg 400 mg PO DAILY #20 tabs 08/05/25 09/19/25 Rx magnesium) tablet Allergies Allergy/AdvReac Type Severity Reaction Status Date / Time nickel Allergy Mild Rash Verified 09/19/25 20:54 Past Med/Surg History Problem List History of seizure due to alcohol withdrawal (Acute) At risk for alcohol withdrawal (Acute) 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 Acute dehydration (Acute) Vomiting (Acute) Alcohol abuse (Acute) Alcohol intoxication (Acute) PTSD (post-traumatic stress disorder) Alcohol use disorder Back pain (Acute) Alcohol intoxication (Acute) ZUHAIR (acute kidney injury) (Acute) Acute dehydration (Acute) Nausea & vomiting (Acute) History of alcohol dependence (Acute) Acute alcoholic pancreatitis (Acute) Pancreatitis without necrosis or infection Vomiting (Acute) ZUHAIR (acute kidney injury) (Acute) Alcohol withdrawal (Acute) Alcohol abuse (Acute) Hypomagnesemia (Acute) Tachycardia (Acute) Alcohol withdrawal Alcoholic ketoacidosis (Acute) Contusion (Acute) Alcoholic intoxication (Acute) Alcohol abuse (Acute) Weakness (Acute) Hypomagnesemia (Acute) Hallucinations (Acute) Alcohol abuse (Acute) S/P nasal surgery septoplasty and rhinoplasty-both w/Dr. Castañeda Allergic rhinitis Abnormal uterine bleeding ADD (attention deficit disorder) Insomnia Restless leg Anxiety and depression (Chronic) Fatty liver (Chronic) Alcohol dependence (Chronic) Medical History Tobacco use disorder Intractable nausea and vomiting Depression Anxiety Surgical History H/O wisdom tooth extraction Family History Aunt Breast cancer, Onset Age: 65 paternal Asthma maternal Grandfather (Paternal) Prostate cancer Aunt Allergies maternal Family/Other Allergies cousins Asthma cousins Other No family history of adverse response to anesthesia No family history of bleeding disorder Denies family history of Ovarian cancer Colorectal cancer Social History Smoking Status: Never smoker Tobacco Type: E-cigarettes / Vaping Age Started Using Tobacco: 20; packs per day: 0.5; Cigarettes Per Day: 4; Second Hand Exposure: No; Do You Dip or Chew Tobacco: No; Hx Alcohol Use: Yes Alcohol type: hard liquor Hx Substance Use: No Preferred Language: Amharic 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 Ability: Effective Occupational Health Specialist Required: No Beliefs That Will Affect Care: None marital status: Single Current Living Situation: Alone Feels Safe at Home: Yes Assistive Devices: None Physical Exam Vital Signs Vital Signs - 24 hr 09/19/25 19:47 09/19/25 20:57 09/19/25 22:05 Temperature 36.5 C Temperature Source Temporal Artery Scan Pulse Rate 109 H 93 H Respiratory Rate 18 16 Respiratory Effort / Characteristics Non-Labored Spontaneous Respiratory Depth Normal Respiratory Pattern Regular Blood Pressure 118/89 Blood Pressure Mean 98 Blood Pressure Position Sitting Pulse Oximetry 98 100 Oxygen Delivery Method Room Air Room Air Oxygen Flow Rate Sepsis Recent Fever Within 48 Hours No Sepsis New/Unexplained Change in Mental Status N/A Sepsis Action Taken by Nursing No Action Required Pulse Oximetry Post Tiitration 09/19/25 22:21 Temperature Temperature Source Pulse Rate Respiratory Rate Respiratory Effort / Characteristics Respiratory Depth Respiratory Pattern Blood Pressure Blood Pressure Mean Blood Pressure Position Pulse Oximetry 86 L Oxygen Delivery Method Nasal Cannula Oxygen Flow Rate 2 Sepsis Recent Fever Within 48 Hours Sepsis New/Unexplained Change in Mental Status Sepsis Action Taken by Nursing Pulse Oximetry Post Tiitration 99 Physical Exam GENERAL: Patient smells of alcohol. Patient is slurring her words and appears intoxicated. HENT: Exam performed. -Head: Normocephalic and atraumatic. -Right Ear: External ear normal. No mastoid erythema -Left Ear: External ear normal. No mastoid erythema -Mouth/Throat: The oropharynx is clear and moist. No trismus in the jaw. No dental abscesses or uvula swelling. No oropharyngeal exudate or tonsillar abscesses. EYES: Conjunctivae and EOM are normal. Pupils are equal, round, and reactive to light. Right eye exhibits no discharge. Left eye exhibits no discharge. No scleral icterus. NECK: Normal range of motion. Neck supple. No JVD present. No spinous process tenderness present.No rigidity. No tracheal deviation and normal range of motion present. CV: Normal rate, regular rhythm, normal heart sounds and intact distal pulses. There is no peripheral edema. Palpable radial pulses bue. PULM/CHEST: Effort normal and breath sounds normal. No respiratory distress. No stridor. She has no wheezes. She has no rales. -Chest Wall: She exhibits no tenderness. ABD: The abdomen is soft. There is no tenderness. There is no rebound, no guarding. MUSC/SKEL: Pelvis stable. NEURO: Motor and sensation grossly intact. Course Course 2006: The patient was evaluated in room B4. A complete history and physical exam was performed Cardiac monitoring: An order was placed for continuous cardiac monitoring. The monitor shows a rate of 90 with sinus rhythm interpreted by me Patient's mother pulmonary to decide after initial evaluation and states she does not want the patient to have any imaging of her brain as she states there is significant family history of brain cancer. She also states she does not want the patient to have any gabapentin as she has done her research and spoke with the pharmacist who states they are highly addictive properties to gabapentin. Patient's mother is adamant that no imaging be conducted on her daughter and absolutely no gabapentin be given to her daughter. 2125: Vital signs stable. Labs show a lipase of 201. Serum alcohol 539.6. Patient is awake alert and oriented but slurring her words. Patient states she would like to go to rehab/detox and the parents are very encouraging of this. [facility] to help her with her alcoholism. Administered Medications Discontinued Medications Sodium Chloride (Nss) 1,000 mls @ 999 mls/hr IV .Q1H1M ONE Stop: 09/19/25 21:06 Last Admin: 09/19/25 20:23 Dose: 999 mls/hr Documented By: FARIBA Medical Decision Making Laboratory Data Attestation: I reviewed the patient's lab results. 09/19/25 20:23 09/19/25 21:15 Lab Results 09/19/25 09/19/25 09/19/25 Range/Units 20:23 20:51 21:15 WBC 3.93 L (4.8-10.8) K/ul RBC 3.30 L (4.20-5.40) M/uL Hgb 11.7 L (12.0-16.0) g/dL Hct 32.8 L (37.0-47.0) % MCV 99.4 (80.0-100.0) fL MCH 35.5 H (25.0-34.0) pg MCHC 35.7 (32.0-36.0) g/dL RDW Std Deviation 54.5 H (36.4-46.3) fL RDW Coeff of Edgar 15.3 H (11.5-14.5) % Plt Count 315 (130-400) K/uL MPV 8.9 L (9.4-12.4) fL Sodium 146 H (136-145) mmol/L Potassium TNP 3.9 Chloride 110 H (98-107) mmol/L Carbon Dioxide 23 (21-32) mmol/L Anion Gap 13 H (3-11) BUN 12 (6-23) mg/dl Creatinine 0.66 (0.6-1.2) mg/dl Est Cr Clr Drug Dosing Not Reportable eGFR 111.55 BUN/Creatinine Ratio 18.2 (10-20) Glucose 90 (70-99(Fasting)) mg/dl Calcium 8.5 L (8.6-10.3) mg/dl Total Bilirubin 0.4 (0.2-1.0) mg/dl Direct Bilirubin TNP 0.1 AST TNP 302 H ALT 206 H (7-52) U/L Alkaline Phosphatase 58 (34-104) U/L Total Protein 7.5 (6.0-8.3) gm/dl Albumin 4.4 (3.4-5.0) gm/dl Lipase 201 H (11-82) U/L HCG, Quant < 1 mIU/ml POC Ur Test NEG (NEG) Ethyl Alcohol mg/dL 539.6 H (<10.0) mg/dl [facility] Narrative 2006: The patient was evaluated in room B4. A complete history and physical exam was performed Cardiac monitoring: An order was placed for continuous cardiac monitoring. The monitor shows a rate of 90 with sinus rhythm interpreted by me Patient's mother pulmonary to decide after initial evaluation and states she does not want the patient to have any imaging of her brain as she states there is significant family history of brain cancer. She also states she does not want the patient to have any gabapentin as she has done her research and spoke with the pharmacist who states they are highly addictive properties to gabapentin. Patient's mother is adamant that no imaging be conducted on her daughter and absolutely no gabapentin be given to her daughter. 2124: Vital signs stable. Labs show a lipase of 201. Serum alcohol 539.6. Patient is awake alert and oriented but slurring her words. Patient states she would like to go to rehab/detox and the parents are very encouraging of this. Patient [facility] hospitalist team for placement into the facility to help her with her alcoholism. Impression & Plan Alcohol abuse Discharge Plan Visit Data Chief Complaint: Alcohol Intoxication Stated Complaint: INTOXICATION ED Provider: Luis Villareal Discharge Problem: Alcohol abuse Patient Disposition: Being Evaluated by Hospitalist Condition: Fair Forms Stand Alone Forms: [facility] Prescriptions Prescriptions: No Action hydroxyzine pamoate 100 mg capsule 100 mg PO QID PRN (Reason: Anxiety) amitriptyline 50 mg tablet 125 mg PO HS topiramate 100 mg tablet 100 mg PO TID Rx Instructions: TOTAL DOSE 125 MG--TAKES WITH 25 MG TAB QAM & HS. NOON DOSE 100 MG ONLY. lorazepam 1 mg tablet 1 mg PO DAILY PRN (Reason: Anxiety) pantoprazole 40 mg Tablet,Delayed Release (Dr/Ec) 40 mg PO QAM Qty: 30 0RF topiramate 25 mg tablet 25 mg PO BID Rx Instructions: TOTAL DOSE 125 MG--TAKES WITH 100 MG TAB QAM & QHS acetaminophen [Tylenol Extra Strength] 500 mg Tablet 500 mg PO Q6H PRN (Reason: PAIN/FEVER) Lo Loestrin Fe 1 mg-10 mcg (24)/10 mcg (2) Tablet 1 tab PO DAILY baclofen 10 mg tablet 10 mg PO TID diclofenac sodium 75 mg tablet,delayed release (DR/EC) 75 mg PO BID torsemide 10 mg tablet 10 mg PO QAM Hold Instructions: Resume on 08/10/25. until discussed with your primary care physician duloxetine 30 mg capsule,delayed release(DR/EC) 30 mg PO QAM magnesium oxide 400 mg (241.3 mg magnesium) Tablet 400 mg PO DAILY Qty: 20 0RF cyanocobalamin (vitamin B-12) 500 mcg Tablet 1,000 mcg PO QAM Qty: 60 0RF folic acid 1 mg Tablet 1 mg PO QAM Qty: 30 0RF Referrals Referrals: Aj Gaston MD [Primary Care Provider] -
[2025-09-20 00:33] LABS: ALC (manual) 2.67 K/uL (1.2-3.4); ANC (manual) 0.71 K/uL (1.4-6.5); Large Granular Lymph # (manua 0.59 K/uL; Large Granular Lymph % (manual) 15 %; Polychromasia 1+
--- NOTE | 2025-09-20 00:56 | History & Physical Report ---
Date of Service September 20, 2025 Assessment & Plan (1) At risk for alcohol withdrawal: Plan: 45-year-old female with past medical history significant for migraine, tobacco use, depression with anxiety, ADHD, alcoholism and pancreatitis, hereditary hemochromatosis presents with alcohol intoxication. Parents are in the room. Patient states she is drinking 750ml of vodka in 2 days. Patient is interested in going to alcohol rehab. Somewhat shaky. Appetite is not great. Has some abdominal discomfort. Denies any chest pain or shortness of breath. No cough. No runny nose or sore throat. Normal bowel and bladder movements. Patient says lately while sleeping she is waking up short of breath. Lately she is also having some cold symptoms and was feeling hot, she tested for COVID at home and was negative. . Hemodynamics are okay. At risk for alcohol withdrawal History of alcohol withdrawal seizures Currently drinking vodka Alcohol level 539 Interested in going to alcohol rehab Will admit to telemetry IV thiamine, IV folic acid and multivitamins Alcohol withdrawal protocol with diazepam Close monitor Depression with anxiety ADHD Patient says currently she only taking baclofen for back pain and not taking any other medications Leukopenia Will follow labs Seems recently having some congestion Will check viral panel Hypoxia Patient says lately while sleeping she is waking up short of breath Will monitor Nocturnal pulse ox study prior to discharge DVT prophylaxis Lovenox Disposition telemetry Full code. History of Present Illness Chief Complaint: Alcohol intoxication Primary Care Provider: Aj Gaston MD 45-year-old female with past medical history significant for migraine, tobacco use, depression with anxiety, ADHD, alcoholism and pancreatitis, hereditary hemochromatosis presents with alcohol intoxication. Parents are in the room. Patient states she is drinking 750ml of vodka in 2 days. Patient is interested in going to alcohol rehab. Somewhat shaky. Appetite is not great. Has some abdominal discomfort. Denies any chest pain or shortness of breath. No cough. No runny nose or sore throat. Normal bowel and bladder movements. Patient says lately while sleeping she is waking up short of breath. Lately she is also having some cold symptoms and was feeling hot, she tested for COVID at home and was negative. . Hemodynamics are okay. Past medical history. As mentioned above. Past surgical history. Dental surgery. Left breast biopsy ultrasound-guided. Social history. 0.5 pack a day smoking for 20 years. As per epic drinks 8-10 shots per day. As per patient last drink was about a week ago. No drug use Family history. Father has history of alcoholism. A-fib. Paternal cousin had breast cancer. Paternal grandfather had prostate cancer. Paternal grandmother has dementia. Allergies Allergy/AdvReac Type Severity Reaction Status Date / Time nickel Allergy Mild Rash Verified 09/19/25 20:54 Home Medications Medication Instructions Recorded Confirmed Type amitriptyline 50 mg tablet 125 mg PO HS Insomnia 11/27/24 09/19/25 History hydroxyzine pamoate 100 mg capsule 100 mg PO QID PRN Anxiety 11/27/24 09/19/25 History lorazepam 1 mg tablet 1 mg PO DAILY PRN Anxiety 11/27/24 09/19/25 History topiramate 100 mg tablet 100 mg PO TID 11/27/24 09/19/25 History pantoprazole 40 mg tablet,delayed 40 mg PO QAM #30 tabs 12/01/24 09/19/25 Rx release acetaminophen 500 mg tablet 500 mg PO Q6H PRN PAIN/FEVER 01/10/25 09/19/25 History (Tylenol Extra Strength) baclofen 10 mg tablet 10 mg PO TID Muscle Spasms 01/10/25 09/19/25 History diclofenac sodium 75 mg 75 mg PO BID Back Pain 01/10/25 09/19/25 History tablet,delayed release norethindrone 1 mg-ethinyl 1 tab PO DAILY 01/10/25 09/19/25 History estradiol 10 mcg (24)-iron 10 mcg(2) tablet (Lo Loestrin Fe) topiramate 25 mg tablet 25 mg PO BID 01/10/25 09/19/25 History duloxetine 30 mg capsule,delayed 30 mg PO QAM 08/01/25 09/19/25 History release torsemide 10 mg tablet 10 mg PO QAM 08/01/25 09/19/25 History cyanocobalamin (vitamin B-12) 500 1,000 mcg (2 x 500 mcg) PO QAM #60 08/05/25 09/19/25 Rx mcg tablet tabs folic acid 1 mg tablet 1 mg PO QAM #30 tabs 08/05/25 09/19/25 Rx magnesium oxide 400 mg (241.3 mg 400 mg PO DAILY #20 tabs 08/05/25 09/19/25 Rx magnesium) tablet Past Med/Surg History Problem List History of seizure due to alcohol withdrawal (Acute) At risk for alcohol withdrawal (Acute) 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 Acute dehydration (Acute) Vomiting (Acute) Alcohol abuse (Acute) Alcohol intoxication (Acute) PTSD (post-traumatic stress disorder) Alcohol use disorder Back pain (Acute) Alcohol intoxication (Acute) ZUHAIR (acute kidney injury) (Acute) Acute dehydration (Acute) Nausea & vomiting (Acute) History of alcohol dependence (Acute) Acute alcoholic pancreatitis (Acute) Pancreatitis without necrosis or infection Vomiting (Acute) ZUHAIR (acute kidney injury) (Acute) Alcohol withdrawal (Acute) Alcohol abuse (Acute) Hypomagnesemia (Acute) Tachycardia (Acute) Alcohol withdrawal Alcoholic ketoacidosis (Acute) Contusion (Acute) Alcoholic intoxication (Acute) Alcohol abuse (Acute) Weakness (Acute) Hypomagnesemia (Acute) Hallucinations (Acute) Alcohol abuse (Acute) S/P nasal surgery septoplasty and rhinoplasty-both w/Dr. Castañeda Allergic rhinitis Abnormal uterine bleeding ADD (attention deficit disorder) Insomnia Restless leg Anxiety and depression (Chronic) Fatty liver (Chronic) Alcohol dependence (Chronic) Medical History Tobacco use disorder Intractable nausea and vomiting Depression Anxiety Surgical History H/O wisdom tooth extraction Family History Aunt Breast cancer, Onset Age: 65 paternal Asthma maternal Grandfather (Paternal) Prostate cancer Aunt Allergies maternal Family/Other Allergies cousins Asthma cousins Other No family history of adverse response to anesthesia No family history of bleeding disorder Denies family history of Ovarian cancer Colorectal cancer Social History Smoking Status: Former smoker Tobacco Type: E-cigarettes / Vaping Age Started Using Tobacco: 20; packs per day: 0.5; Cigarettes Per Day: 4; Second Hand Exposure: No; Do You Dip or Chew Tobacco: No; Hx Alcohol Use: Yes Alcohol type: hard liquor Hx Substance Use: No Preferred Language: [place] 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 Ability: Impaired 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 Ability Comment: Impaired due to alcohol intoxication Skid Man Required: No Beliefs That Will Affect Care: None marital status: Single Current Living Situation: Alone Feels Safe at Home: Yes Safety Concerns: Feels Safe At This Time Assistive Devices: None Review of Systems Review of Systems: All systems reviewed & are unremarkable except as noted in HPI & below Physical Exam Physical Exam: General- Not in distress Head- atraumatic Eyes- PERRL. ENT- oropharynx clear Neck- supple, no JVD. Lungs- clear to auscultation no wheezing or crackles Heart- regular rhythm; no murmur, no gallop. Abdomen- normal bowel sounds, soft, nontender, no distension Extremities- no pretibial edema, no erythema seen Neuro- alert, oriented PERRL, no facial palsy; no dysarthria; moves extremities Results & Data Results & Data Vital Signs (Past 12 Hours) Vital Signs Temp Pulse Pulse Resp BP BP Pulse Ox 09/20/25 00:09 37 C 91 H 14 107/74 97 09/19/25 22:21 86 L 09/19/25 22:05 16 100 09/19/25 20:57 93 H 09/19/25 19:47 36.5 C 109 H 18 118/89 98 O2 Del Method O2 Flow Rate 09/20/25 00:09 Nasal Cannula 2 09/19/25 22:21 Nasal Cannula 2 09/19/25 22:05 Room Air 09/19/25 20:57 09/19/25 19:47 Room Air Diagnostic Findings Laboratory Results WBC 3.93 K/ul (4.8-10.8) L 09/19/25 20:23 RBC 3.30 M/uL (4.20-5.40) L 09/19/25 20:23 Hgb 11.7 g/dL (12.0-16.0) L 09/19/25 20:23 Hct 32.8 % (37.0-47.0) L 09/19/25 20:23 MCV 99.4 fL (80.0-100.0) 09/19/25 20:23 MCH 35.5 pg (25.0-34.0) H 09/19/25 20:23 MCHC 35.7 g/dL (32.0-36.0) 09/19/25 20:23 RDW Std Deviation 54.5 fL (36.4-46.3) H 09/19/25 20:23 RDW Coeff of Edgar 15.3 % (11.5-14.5) H 09/19/25 20:23 Plt Count 315 K/uL (130-400) 09/19/25 20:23 MPV 8.9 fL (9.4-12.4) L 09/19/25 20:23 Neutrophils % (Manual) 18 % 09/19/25 20:23 Lymphocytes % (Manual) 53 % 09/19/25 20:23 Monocytes % (Manual) 4 % 09/19/25 20:23 Eosinophils % (Manual) 6 % 09/19/25 20:23 Basophils % (Manual) 4 % 09/19/25 20:23 Neutrophils # (Manual) 0.71 K/uL (1.40-6.50) L 09/19/25 20:23 Total Absolute Neuts 0.71 K/uL (1.4-6.5) L* 09/19/25 20:23 Lymphocytes # (Manual) 2.08 K/uL (1.2-3.4) 09/19/25 20:23 Total Abs Lymphocytes 2.67 K/uL (1.2-3.4) 09/19/25 20:23 Monocytes # (Manual) 0.16 K/uL (0.11-0.59) 09/19/25 20:23 Eosinophils # (Manual) 0.24 K/uL (0-0.50) 09/19/25 20:23 Basophils # (Manual) 0.16 K/uL (0-0.2) 09/19/25 20:23 Large Granular Lymphs 15 % 09/19/25 20:23 # Lrg Granular Lymphs 0.59 K/uL 09/19/25 20:23 Polychromasia 1+ 09/19/25 20:23 Sodium 146 mmol/L (136-145) H 09/19/25 20:23 Potassium 3.9 mmol/L (3.5-5.1) 09/19/25 21:15 Chloride 110 mmol/L (98-107) H 09/19/25 20:23 Carbon Dioxide 23 mmol/L (21-32) 09/19/25 20:23 Anion Gap 13 (3-11) H 09/19/25 20:23 BUN 12 mg/dl (6-23) 09/19/25 20:23 Creatinine 0.66 mg/dl (0.6-1.2) 09/19/25 20:23 Est Cr Clr Drug Dosing Not Reportable 09/19/25 20:23 eGFR 111.55 09/19/25 20:23 BUN/Creatinine Ratio 18.2 (10-20) 09/19/25 20:23 Glucose 90 mg/dl (70-99(Fasting)) 09/19/25 20:23 Calcium 8.5 mg/dl (8.6-10.3) L 09/19/25 20:23 Total Bilirubin 0.4 mg/dl (0.2-1.0) 09/19/25 20:23 Direct Bilirubin 0.1 mg/dl (0-0.2) 09/19/25 21:15 AST 302 U/L (13-39) H 09/19/25 21:15 ALT 206 U/L (7-52) H 09/19/25 20:23 Alkaline Phosphatase 58 U/L (34-104) 09/19/25 20:23 Total Protein 7.5 gm/dl (6.0-8.3) 09/19/25 20:23 Albumin 4.4 gm/dl (3.4-5.0) 09/19/25 20:23 Lipase 201 U/L (11-82) H 09/19/25 20:23 HCG, Quant < 1 mIU/ml 09/19/25 20:23 POC Ur Test NEG (NEG) 09/19/25 20:51 Ethyl Alcohol mg/dL 539.6 mg/dl (<10.0) H 09/19/25 20:23 Code Status & VTE Plan VTE Prophylaxis Plan VTE Prophylaxis will be ordered: Yes
[2025-09-20] MEDS: THIAMINE HCL 100 MG in SYRINGE 9 ML IV STA (01:15)
[2025-09-20] MEDS: FOLIC ACID 1 MG in SYRINGE 9.8 ML IV STA (01:15)
[2025-09-20] MEDS: Patient's HEIGHT &/or WEIGHT Needed STA (01:20)
[2025-09-20 02:19] LABS: Chlamydia pneumoniae PCR Not Detected (NotDetected); Coronavirus 229E PCR Not Detected (NotDetected); Coronavirus CoV-2 (COVID19)PCR Not Detected (NotDetected); Coronavirus HKU1 PCR Not Detected (NotDetected); Coronavirus NL63 PCR Not Detected (NotDetected); Coronavirus OC43PCR Not Detected (NotDetected); Human Metapneumovirus PCR Not Detected (NotDetected); Parainfluenza Virus 1 PCR Not Detected (NotDetected); Parainfluenza Virus 2 PCR Not Detected (NotDetected); Parainfluenza Virus 3 PCR Not Detected (NotDetected); Parainfluenza Virus 4 PCR Not Detected (NotDetected); Respiratory Syncytial VirusPCR Not Detected (NotDetected); Rhinovirus/Enterovirus PCR Not Detected (NotDetected)
[2025-09-20] MEDS ORDERED: NITROGLYCERIN SL 0.4 MG/TAB TAB SL PRN (02:28)
[2025-09-20] MEDS: D5W AND 1/2NSS 1,000 ML IV SCH (02:30)
[2025-09-20] MEDS: LORazepam Inj 0.5 MG in SYRINGE 0.25 ML IV STA (02:49)
[2025-09-20] MEDS: ENOXAPARIN INJ 40 MG/0.4 ML SYR SQ ONE (02:51)
[2025-09-20] MEDS: LORazepam 0.5 MG TAB PO STA (08:05)
[2025-09-20] MEDS: BACLOFEN 10 MG TAB PO SCH (08:06)
[2025-09-20] MEDS: FOLIC ACID 1 MG in SYRINGE 9.8 ML IV SCH (08:06)
[2025-09-20] MEDS: THIAMINE HCL 100 MG in SYRINGE 9 ML IV SCH (08:06)
[2025-09-20] MEDS: CEROVITE ADV FORMULA TAB PO SCH (08:06)
[2025-09-20 08:09] LABS: Hematocrit (blood only) 30.0 % (37.0-47.0); Hemoglobin 10.4 g/dL (12.0-16.0); Immature Granulocytes # (auto) 0.01 K/uL (0.01-0.20); Immature Granulocytes % (auto) 0.2 %; Mean Corpuscular Hemoglobin 34.7 pg (25.0-34.0); Mean Corpuscular Volume 100.0 fL (80.0-100.0); Platelet Count 251 K/uL (130-400); RDW Standard Deviation 56.7 fL (36.4-46.3); Red Blood Count 3.00 M/uL (4.20-5.40); White Blood Count 4.60 K/ul (4.8-10.8)
[2025-09-20 08:23] VITALS: BP 114/76; RESP 19; TEMP 98.8; O2SAT 98
[2025-09-20 08:28] LABS: Alanine Aminotransferase 152.0 U/L (7-52); Albumin Level 3.9 gm/dl (3.4-5.0); Alkaline Phosphatase 54.0 U/L (34-104); Anion Gap 11.0 (3-11); Bilirubin,Total 0.5 mg/dl (0.2-1.0); Blood Urea Nitrogen 9.0 mg/dl (6-23); Calcium 7.6 mg/dl (8.6-10.3); Carbon Dioxide 25.0 mmol/L (21-32); Chloride 105.0 mmol/L (98-107); Creatinine Clr Calc Pharmacy 127.8 ml/min; Glucose 99.0 mg/dl (70-99(Fasting)); Magnesium 1.5 mg/dl (1.7-2.4); Potassium 3.2 mmol/L (3.5-5.1); Sodium 141.0 mmol/L (136-145); Total Protein 6.3 gm/dl (6.0-8.3)
[2025-09-20 10:42] VITALS: PULSE 93
--- NOTE | 2025-09-20 12:58 | Discharge Summary ---
Discharge Summary Date of Service September 20, 2025 delayed entry date of service noted above Principal Dx & Hospital Course #1 = Principal Diagnosis (1) At risk for alcohol withdrawal: 45-year-old female with past medical history significant for migraine, tobacco use, depression with anxiety, ADHD, alcoholism and pancreatitis, hereditary hemochromatosis presents with alcohol intoxication. Parents are in the room. Patient states she is drinking 750ml of vodka in 2 days. Patient is interested in going to alcohol rehab. Somewhat shaky. Appetite is not great. Has some abdominal discomfort. Denies any chest pain or shortness of breath. No cough. No runny nose or sore throat. Normal bowel and bladder movements. Patient says lately while sleeping she is waking up short of breath. Lately she is also having some cold symptoms and was feeling hot, she tested for COVID at home and was negative. . Hemodynamics are okay. At risk for alcohol withdrawal History of alcohol withdrawal seizures Currently drinking vodka Alcohol level 539 Interested in going to alcohol rehab Will admit to telemetry IV thiamine, IV folic acid and multivitamins Alcohol withdrawal protocol with diazepam Close monitor 09/20 informed by patient's RN Enoc, that patient is adamantly expressing that she would like to go home, and that she is not ready to go to alcohol rehab seen at bedside with JUSTYN Stubbs throughout whole encounter patient is awake, alert, oriented x 3, answering all questions appropriately states she feels fine overall denies tremors, sweating, hallucinations, confusion reports she is anxious as she gets anxious when she is in the hospital denies depression, suicidal ideation no abdominal pain, nausea, fever/chills no headache, dizziness, focal neurologic symptoms no chest pain, dyspnea, palpitations, dizziness maintains strongly that she would like to be discharged because she is only getting anxious in the hospital and that she is not ready to go to alcohol rehab discussed current medical condition and findings including possible alcohol withdrawal, alcohol hepatitis, etc and further monitoring, testing and treatment is highly recommended, leaving today would mean leaving against medical advice patient was able to state medical conditions, treatment needed, possible consequences and risks involved if medical management not performed, and patient verbalized understanding and agreement advised alcohol cessation, strictly no driving, and close follow up with PCP for continuation of care, patient verbalized understanding and agreement I inquired if we can talk to her parents who brought her to the hospital, to also share her decision to leave, but patient declined; she also gave us directions not to share any medical information to her family will have patient ff up with PCP within in a few days follow LFTs and electrolytes closely as outpatient Depression with anxiety ADHD Patient says currently she only taking baclofen for back pain and not taking any other medications denies depression feels anxious because she is in the hospital as per patient ff up closely as outpatient Leukopenia Seems recently having some congestion Biofire negatve ff up as outpatient Hypoxia Patient says lately while sleeping she is waking up short of breath Nocturnal pulse ox study prior to discharge - resolved DVT prophylaxis Lovenox Disposition telemetry Full code. Notes For Next Care Provider Medication Changes From Visit None Admission HPI Per Admitting Provider 45-year-old female with past medical history significant for migraine, tobacco use, depression with anxiety, ADHD, alcoholism and pancreatitis, hereditary hemochromatosis presents with alcohol intoxication. Parents are in the room. Patient states she is drinking 750ml of vodka in 2 days. Patient is interested in going to alcohol rehab. Somewhat shaky. Appetite is not great. Has some abdominal discomfort. Denies any chest pain or shortness of breath. No cough. No runny nose or sore throat. Normal bowel and bladder movements. Patient says lately while sleeping she is waking up short of breath. Lately she is also having some cold symptoms and was feeling hot, she tested for COVID at home and was negative. . Hemodynamics are okay. Past medical history. As mentioned above. Past surgical history. Dental surgery. Left breast biopsy ultrasound-guided. Social history. 0.5 pack a day smoking for 20 years. As per epic drinks 8-10 shots per day. As per patient last drink was about a week ago. No drug use Family history. Father has history of alcoholism. A-fib. Paternal cousin had breast cancer. Paternal grandfather had prostate cancer. Paternal grandmother has dementia. Admission Exam Per Admitting Provider General- Not in distress Head- atraumatic Eyes- PERRL. ENT- oropharynx clear Neck- supple, no JVD. Lungs- clear to auscultation no wheezing or crackles Heart- regular rhythm; no murmur, no gallop. Abdomen- normal bowel sounds, soft, nontender, no distension Extremities- no pretibial edema, no erythema seen Neuro- alert, oriented PERRL, no facial palsy; no dysarthria; moves ex tremities Discharge Exam General- oriented x 3, not in distress, speaks in sentences with no effort or accessory muscle use Eyes- anicteric Neck- no JVD Lungs- clear breath sounds bilaterally, no rales/wheezes Heart- normal rate, regular rhythm; no murmurs Abdomen- normal bowel sounds, nondistended, soft, nontender Extremities- no pretibial edema, no calf tenderness mild BL hand tremors Neuro- alert, oriented x 3; no gross focal neurologic deficits Skin- warm & dry Updated Medication List Medication Instructions Recorded Confirmed Type amitriptyline 50 mg tablet 125 mg PO HS Insomnia 11/27/24 09/19/25 History hydroxyzine pamoate 100 mg capsule 100 mg PO QID PRN Anxiety 11/27/24 09/19/25 History lorazepam 1 mg tablet 1 mg PO DAILY PRN Anxiety 11/27/24 09/19/25 History topiramate 100 mg tablet 100 mg PO TID 11/27/24 09/19/25 History pantoprazole 40 mg tablet,delayed 40 mg PO QAM #30 tabs 12/01/24 09/19/25 Rx release acetaminophen 500 mg tablet 500 mg PO Q6H PRN PAIN/FEVER 01/10/25 09/19/25 History (Tylenol Extra Strength) baclofen 10 mg tablet 10 mg PO TID Muscle Spasms 01/10/25 09/19/25 History diclofenac sodium 75 mg 75 mg PO BID Back Pain 01/10/25 09/19/25 History tablet,delayed release norethindrone 1 mg-ethinyl 1 tab PO DAILY 01/10/25 09/19/25 History estradiol 10 mcg (24)-iron 10 mcg(2) tablet (Lo Loestrin Fe) topiramate 25 mg tablet 25 mg PO BID 01/10/25 09/19/25 History duloxetine 30 mg capsule,delayed 30 mg PO QAM 08/01/25 09/19/25 History release torsemide 10 mg tablet 10 mg PO QAM 08/01/25 09/19/25 History cyanocobalamin (vitamin B-12) 500 1,000 mcg (2 x 500 mcg) PO QAM #60 08/05/25 09/19/25 Rx mcg tablet tabs folic acid 1 mg tablet 1 mg PO QAM #30 tabs 08/05/25 09/19/25 Rx magnesium oxide 400 mg (241.3 mg 400 mg PO DAILY #20 tabs 08/05/25 09/19/25 Rx magnesium) tablet Hospital Stay Data Consultations 09/19/25 21:26 ED Decision to Admit Stat Pending Results Patient Have Any Pending Studies at Discharge: No Total Time Total Time Spent Total Time Spent (In Minutes): 50 minutes
== END 2025-09-20 10:45 | disposition left against medical advice (07) | DRG 894 ==
LOC: ED 19:43 → 2E 09-20 00:39
DX: E83.110 Hereditary hemochromatosis; F90.9 Attention-deficit hyperactivity disorder, unspecified type; F10.229 Alcohol dependence with intoxication, unspecified; F41.9 Anxiety disorder, unspecified; R09.02 Hypoxemia; U07.0 Vaping-related disorder; F17.290 Nicotine dependence, other tobacco product, uncomplicated; F17.210 Nicotine dependence, cigarettes, uncomplicated; F32.A Depression, unspecified